=== PATIENT | male | born 1990 | race American Indian/Alaskan Native ===

== ENCOUNTER 2016-11-01 12:43 | Emergency (ER) | payer MEDICAID ==
[2016-11-01] MEDS ORDERED: HYDROmorphone 1 MG/ML Syringe IVPUSH ONE ×2 (13:04→15:15)
[2016-11-01] MEDS ORDERED: Sodium Chloride 0.9% 10 ML Syringe FLUSH PRN (13:04)
[2016-11-01] MEDS ORDERED: Ondansetron 4 MG/2 ML SDV IV ONE (13:04)
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
[2016-11-01 13:44] LABS: CHLORIDE,CL 104 mmol/L (101-111); SODIUM,NA 135 mmol/L (135-145)
[2016-11-01 15:27] VITALS: BP 129/74
== END 2016-11-01 15:59 | disposition home or self-care (01) ==
LOC: DL.ED 12:43
DX: G89.18 Other acute postprocedural pain (principal); Z98.890 Other specified postprocedural states; E66.9 Obesity, unspecified; Z88.5 Allergy status to narcotic agent; Z88.1 Allergy status to other antibiotic agents; Z88.8 Allergy status to other drugs, medicaments and biological substances; Z90.49 Acquired absence of other specified parts of digestive tract; Z87.891 Personal history of nicotine dependence
CPT/HCPCS: 36415; 80053; 83605; 85025; 86140; 87040; 87070; 96374; 96375; 96376; 99285; J1170; J2405; J7050

== ENCOUNTER 2016-11-02 18:58 | Emergency (ER) | payer MEDICAID, OTHER ==
[2016-11-02 19:07] VITALS: BP 128/84
[2016-11-02 20:01] LABS: CHLORIDE,CL 103 mmol/L (101-111); SODIUM,NA 138 mmol/L (135-145)
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
== END 2016-11-02 20:59 | disposition left against medical advice (07) ==
LOC: DL.ED 18:58
DX: G89.18 Other acute postprocedural pain (principal); E66.9 Obesity, unspecified; Z90.49 Acquired absence of other specified parts of digestive tract; Z88.1 Allergy status to other antibiotic agents; Z88.5 Allergy status to narcotic agent; Z88.8 Allergy status to other drugs, medicaments and biological substances
CPT/HCPCS: 36415; 73090-LT; 73120-LT; 80053; 85025; 86140; 99283

== ENCOUNTER 2016-11-04 14:16 | Emergency (ER) | payer MEDICAID, OTHER ==
[2016-11-04] MEDS ORDERED: Bacitracin Oint 1 GM U/D Packet TOP ONE (14:56)
[2016-11-04 15:20] VITALS: BP 128/79
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
== END 2016-11-04 15:35 | disposition home or self-care (01) ==
LOC: EEVIPCON 14:16 → DL.ED 14:16
DX: T81.30XA Disruption of wound, unspecified, initial encounter (principal); E66.9 Obesity, unspecified; Z88.1 Allergy status to other antibiotic agents; Z88.5 Allergy status to narcotic agent; Z88.8 Allergy status to other drugs, medicaments and biological substances
CPT/HCPCS: 36415; 85025; 99283

== ENCOUNTER 2016-11-11 10:43 | Emergency (ER) | payer MEDICAID ==
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
== END 2016-11-11 14:00 | disposition home or self-care (01) ==
LOC: DL.ED 10:43
CPT/HCPCS: 99283

== ENCOUNTER 2016-11-12 12:42 | Emergency (ER) | payer MEDICAID ==
[2016-11-12] MEDS ORDERED: Ondansetron 4 MG Tab.DIS PO ONE (13:31)
[2016-11-12] MEDS ORDERED: Sodium Chloride 0.9% 10 ML Syringe FLUSH PRN (15:02)
[2016-11-12] MEDS ORDERED: Ondansetron 8 MG in Sodium Chloride 0.9% 50 ML IV ONE (15:03)
[2016-11-12] MEDS ORDERED: Sodium Chloride 0.9% 1,000 ML IV SCH (15:15)
[2016-11-12] MEDS ORDERED: Ondansetron 4 MG/2 ML SDV ONE (15:43)
[2016-11-12 16:13] VITALS: BP 124/92
[2016-11-12] MEDS ORDERED: Clindamycin Phosphate 900 MG in Sodium Chloride 0.9% 100 ML IV ONE (16:57)
[2016-11-12] MEDS ORDERED: Acetaminophen/oxyCODONE 325-5 MG Tab PO ONE (17:26)
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
== END 2016-11-12 18:07 | disposition home or self-care (01) ==
LOC: DL.ED 12:42
DX: Z48.89 Encounter for other specified surgical aftercare (principal); M79.602 Pain in left arm; R11.2 Nausea with vomiting, unspecified; Z88.1 Allergy status to other antibiotic agents; Z88.5 Allergy status to narcotic agent; Z88.8 Allergy status to other drugs, medicaments and biological substances; Z90.49 Acquired absence of other specified parts of digestive tract; E66.01 Morbid (severe) obesity due to excess calories
CPT/HCPCS: 36415; 85025; 87040; 87070; 96361; 96365; 96375; 99285; A9270; J2405; J7030; J7050; S0077

== ENCOUNTER 2016-11-13 10:57 | Observation (INO) | payer MEDICAID ==
[2016-11-13] MEDS ORDERED: Lidocaine 1% 30 ML SDV ONE (11:35)
[2016-11-13] MEDS ORDERED: Clindamycin Phosphate 900 MG in Sodium Chloride 0.9% 100 ML IV ONE (12:08)
[2016-11-13] MEDS ORDERED: Sodium Chloride 0.9% 100 ML ONE (12:10)
[2016-11-13] MEDS ORDERED: Clindamycin Phosphate 900 MG/6 ML SDV ONE (12:10)
[2016-11-13] MEDS: Lactated Ringers 1,000 ML IV SCH ×2 (12:14→13:46)
--- NOTE | 2016-11-13 12:16 | PCM.SN ---
- Free Text/Narrative Note: Preop. Meds and allergies reviewed w chart review. No complications w previous anesthetics. NPO > 8 hrs. Light smoker, Neg GERD. Mallampati 2. Hx obesity. Lungs CTAB Heart RRR S1 S2 w/o m . Risks benefits and alternatives of anesthesia explained to Pt. Pt denies questions or concerns. Plan GA
[2016-11-13] MEDS ORDERED: Lidocaine 1% 30 ML SDV INJECT ONE ×2 (12:42→13:49)
[2016-11-13] MEDS ORDERED: Morphine 10 MG/ML Syringe IVPUSH PRN (13:42)
[2016-11-13] MEDS ORDERED: HYDROmorphone 1 MG/ML Syringe IV ONE (13:49)
[2016-11-13] MEDS ORDERED: Ondansetron 4 MG/2 ML SDV IV ONE (13:49)
[2016-11-13] MEDS ORDERED: fentaNYL 250 MCG/5 ML SDV IV ONE (13:49)
[2016-11-13] MEDS ORDERED: Midazolam 1 MG/ML 2 ML SDV IV ONE (13:49)
[2016-11-13] MEDS ORDERED: Propofol 200 MG/20 ML SDV IV ONE (13:49)
[2016-11-13] MEDS ORDERED: Acetaminophen/Codeine 300-30 MG Tab PO PRN (13:49)
[2016-11-13] MEDS ORDERED: Morphine PF 5 MG/10 ML SDV ONE (14:03)
[2016-11-13] MEDS ORDERED: Magnesium Hydroxide 400 MG/5 ML Susp 30 ML Cup PO PRN (16:03)
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
[2016-11-13] MEDS: Morphine 10 MG/ML Syringe IVPUSH PRN ×7 (16:48→23:49)
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
[2016-11-13] MEDS ORDERED: Acetaminophen/HYDROcodone 325-5 MG Tab PO PRN (19:01)
[2016-11-13] MEDS: Acetaminophen/oxyCODONE 325-5 MG Tab PO PRN (20:28)
[2016-11-14] MEDS: Acetaminophen/oxyCODONE 325-5 MG Tab PO PRN ×6 (00:30→19:56)
[2016-11-14] MEDS: Morphine 10 MG/ML Syringe IVPUSH PRN ×5 (00:49→05:27)
[2016-11-14] MEDS ORDERED: Morphine 10 MG/ML Syringe IM PRN ×2 (06:24→18:24)
--- NOTE | 2016-11-14 09:04 | PCM.SN ---
- Free Text/Narrative Note: Post op. Pt alert and oriented. VSS denies nausea, Pain at 5-8/ 10 MD aware. No anesthesia concerns noted
--- NOTE | 2016-11-14 11:24 | PN ---
DATE: 11/14/2016 HISTORY OF PRESENT ILLNESS: Mr. Lovell is a 26-year-old male that we did an I and D of a wound, had been a fasciotomy site that was done several weeks ago. Over the course of the stay, he states that he has had mostly significant pain, but actually less numbness and tingling than he had before. He has been afebrile. The pain medicine he has been getting has been the Percocet as well as morphine. His IV fell out at midnight. PHYSICAL EXAMINATION: The dressing I had him remove the top layer. He began starting to move the layer that was actually within the wound of the fasciotomy site itself. I was able to take some sterile saline and remove the dressing. He stated this obviously hurt, which I know it did. The tissue itself was totally pink. There is no fibrinous exudate. There is no cellulitis at all. IMPRESSION AND PLAN: 1. Wound. Clearly, this wound looks 100% better than yesterday. In fact the muscle beds themselves have already started to decrease in the amount of swelling. I explained to the patient that we just have some limited reports on the cultures today, but clinically it looks very very good. Once the patient calmed down, I was able to discuss with him that what I would like to do is to re-evaluate the wound this afternoon like I will personally again do the dressing change and will determine whether we should think about either delayed closure or just simply dressing changes or perhaps a skin graft. 1. Pain control. Mr. Lovell has been a challenge as far as being able to get control of the pain. He has a history of this in the past, but he certainly does have discomfort with this. At first after the dressing change, the patient stated he wanted to leave and go back to [place]. I stated if that is the case, he needs to make the decision now because the sooner that we have good continuous care the better off this wound will be. I explained to him that if he wants to leave, we will make the appropriate arrangements, but if he wants to stay, we need to make the decision now so that we can continue to monitor this wound on a regular basis. Mr. Lovell then held his hand out to me and said he would like to stay and we made a commitment. He knows full and well that as far as pain control that we could do our best to minimize the pain, but it will never completely go away, and with this, he understand he is going to get 2 Percocet every 4 hours. Perhaps on a p.r.n. basis, we can give him some additional morphine IM. He was agreeable to this. [facility] /[id number]
[2016-11-14] MEDS ORDERED: Diazepam 5 MG Tab PO PRN (22:14)
[2016-11-14] MEDS: Morphine 10 MG/ML Syringe IM PRN (22:30)
[2016-11-15] MEDS: Morphine 10 MG/ML Syringe IM PRN ×4 (04:12→20:25)
[2016-11-15] MEDS: Acetaminophen/oxyCODONE 325-5 MG Tab PO PRN ×5 (06:15→21:51)
[2016-11-15] MEDS ORDERED: Diazepam 2 MG Tab PO PRN (08:12)
--- NOTE | 2016-11-15 08:18 | PCM.SN ---
- Free Text/Narrative Note: Full note dictated. The wound is clean with no exudate cultures negative thus far. will plan on attempt to close the wound in the operating room tomorrow. will bathe in [id number] discussed with the charge nurse in detail. will decrease the valium to 2 mg prn.
--- NOTE | 2016-11-15 10:58 | PN ---
DATE: 11/15/2016 HISTORY OF PRESENT ILLNESS: Mr. Lovell is now postoperative day #2, status post incision and drainage of a fasciotomy site of his forearm. Over the last 24 hours. The biggest issue was obviously pain control. With the addition of the Percocet and morphine, this is helped. Last evening, I did go ahead and give him 5 mg of Valium, which did help him sleep. The patient states that he still has some soreness in that area, but he is able to flex and extend his wrist, but a little bit more problems with flexing he states. He states that he otherwise feels well. OBJECTIVE: He is afebrile. He is not tachycardic. Cultures thus far have been reviewed. The blood cultures that were done in the emergency department were negative. The wound cultures done in the operating room were negative. He remains afebrile. PHYSICAL EXAMINATION: The patient himself took the dressing down. The wound is clean and dry. There is no induration, and there is just a little bit of a serous drainage. There is granulation tissue re-accumulating on the muscle itself. The edema has decreased. The size of the wound was measured again and it was 11 cm x 4 cm. There is no ascending cellulitis. IMPRESSION AND PLAN: 1. This wound now appears ready for the next level. We have basically several options:. a. Totally continue to granulate in, which will take a fair amount of time. b. We could attempt to loosely primarily close it to decrease the size of the open wound with or without a drain. c. Skin graft. I really do not think that this patient is capable of handing another wound especially not only because it is a wound, but also because it is for pain control. I clearly had a discussion with him that a skin graft would require another wound on this thigh and he agrees that he does not like any additional pain, and this could be a problem. I then stated to him that I think that we could attempt to loosely primarily close it now that the wound bed is nice and clean. He seems to be agreeable to this, and we will discuss this with his family. This could be done in the operating room with some MAC anesthesia, some local anesthetic and see what happens. We will further discuss this. In the mean time, I explained to the patient that I would recommend that he showers today with the Hibiclens based solution, so that we can start preparing him for an operative procedure tomorrow. This also I discussed with Peace, the charge nurse as to our plan. It was made that he became fairly sleepy with the Valium of 5 mg, but he did sleep, so I therefore will also decrease the Valium to a 2 mg dose to see if we can give him some added benefit. 1. Social issues. I think it is a tenuous relationship with how things are going. We are trying very much to help do what is best for the patient's injury site. If indeed the patient feels he wants to go to a different facility, we will certainly make those arrangements. I did discuss with the patient that perhaps if he wanted to go home and come as an outpatient, but I have concerns about keeping that wound clean as well as keeping the pain under control. So to date, the plan as I stated. We will try to schedule him for surgery tomorrow. He will be made n.p.o. We will continue with the Hibiclens with the bathing again in the morning and go from there. [facility] /[id number]
--- NOTE | 2016-11-15 14:32 | PCM.SN ---
- Free Text/Narrative Note: patient dressing removed he tollerated this without problem doing most of it by himself he stated that the morning shower went well and that his arm does feel better. PE----health tissue cultures neg so far PLAN---surgery in the am He will stay the night as I am concerned about his reliability and if the will strictly follow the instruction for the preop treatment plan. Our hope is to attempt to close the wound as much as possible I explained this to mr. Lovell. He understands.
[2016-11-16] MEDS: Morphine 10 MG/ML Syringe IM PRN ×3 (00:29→12:30)
--- NOTE | 2016-11-16 08:18 | PCM.SN ---
- Free Text/Narrative Note: Patient had a very good night. he slept for at least 6 straight hours. he is anxious to go home. when I arrived in the room at 8 AM he was sitting up in his bed smiling with the dressing off and ready for the shower. I once again discussed the risks and the bendifits of surgery to include--- bleeding, infection, pittman,, injury to structures not intended and the fact that the wound will be closed as much as possible. he is aware that that he has the option of a different opinion but has elected to stay here. he is aware that the plan will be for discharge after surgery if all goes as planned. he had no additional questions. he is aware that there is one case ahead of him the site was marked. no additional questions
[2016-11-16] MEDS ORDERED: Clindamycin Phosphate 900 MG/6 ML SDV ONE (08:35)
[2016-11-16] MEDS ORDERED: Sodium Chloride 0.9% 100 ML ONE (08:35)
[2016-11-16] MEDS ORDERED: Lidocaine 1% 30 ML SDV ONE (08:43)
[2016-11-16] MEDS ORDERED: Clindamycin Phosphate 900 MG in Sodium Chloride 0.9% 100 ML IV ONE (09:30)
[2016-11-16] MEDS ORDERED: Lidocaine 1% 30 ML SDV INJECT ONE ×2 (10:50→11:03)
[2016-11-16] MEDS ORDERED: Sodium Chloride 0.9% 10 ML Syringe FLUSH PRN (11:16)
--- NOTE | 2016-11-16 11:18 | PCM.SN ---
- Free Text/Narrative Note: POST OP NOTE Dictation complete left forearm closed without difficulty. will instruct patient once awake for post op care.
[2016-11-16] MEDS: Acetaminophen/oxyCODONE 325-5 MG Tab PO PRN ×2 (12:00→12:28)
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
[2016-11-16 13:21] VITALS: BP 116/66
--- NOTE | 2016-11-16 13:46 | OR ---
DATE: 11/16/2016 ADDENDUM: At the end of completion of the case, I did inject Marcaine into the wound for added pain control. [facility] /[id number]
[2016-11-16] MEDS ORDERED: Ondansetron 4 MG/2 ML SDV IV ONE (13:49)
[2016-11-16] MEDS ORDERED: Propofol 200 MG/20 ML SDV IV ONE (13:49)
[2016-11-16] MEDS ORDERED: Midazolam 1 MG/ML 2 ML SDV IV ONE (13:49)
[2016-11-16] MEDS ORDERED: Ketamine 500 mg/10 ML MDV IV ONE (13:49)
[2016-11-16] MEDS ORDERED: Lactated Ringers 1,000 ML IV ONE (13:49)
[2016-11-16] MEDS ORDERED: fentaNYL 100 MCG/2 ML SDV IV ONE (13:49)
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
== END 2016-11-16 13:50 | disposition home or self-care (01) ==
LOC: DL.GSCL 10:57 → DL.SDS 10:57 → EDSTATUS 11:30 → DL.MS 13:17
PROVIDERS: ADMIT Surgery; ATTEND Surgery
DX: T81.89XA Other complications of procedures, not elsewhere classified, initial encounter (principal); Z88.1 Allergy status to other antibiotic agents; Z88.8 Allergy status to other drugs, medicaments and biological substances; Z79.899 Other long term (current) drug therapy
CPT/HCPCS: 00400; 01810; 12034; 25020; 87070; 87075; A9270; G0378; J1170; J2250; J2270; J2405; J2704; J3010; J7050; J7120; S0077

== ENCOUNTER 2017-04-26 11:42 | Emergency (ER) | payer MEDICAID ==
[2017-04-26] MEDS ORDERED: Sodium Chloride 0.9% 500 ML IV STA (12:03)
[2017-04-26] MEDS ORDERED: Sodium Chloride 0.9% 10 ML Syringe FLUSH PRN (12:03)
[2017-04-26] MEDS ORDERED: Ondansetron 4 MG/2 ML SDV IV ONE (12:07)
[2017-04-26] MEDS ORDERED: HYDROmorphone 1 MG/ML Syringe IVPUSH ONE ×2 (12:07→13:51)
--- NOTE | 2017-04-26 12:09 | EDM.PDOC ---
ED HPI GENERAL MEDICAL PROBLEM - General Chief Complaint: Flank Pain Stated Complaint: TOLD BY CLINIC TO COME Time Seen by Provider: 04/26/17 12:07 Source of Information: Reports: Patient History Limitations: Reports: No Limitations - History of Present Illness Onset: Today Duration: Getting Worse Location: Reports: Back Quality: Reports: Stabbing Severity: Severe Improves with: Reports: None Worsens with: Reports: Movement Associated Symptoms: Reports: No Other Symptoms Left Flank Pain Score (Numeric/FACES): 8 - Related Data Allergies Allergy/AdvReac Type Severity Reaction Status Date / Time amoxicillin [Amoxicillin] Allergy Rash Verified 04/26/17 11:46 ketorolac tromethamine Allergy Rash Verified 04/26/17 11:46 [From Toradol] promethazine HCl Allergy Hallucinati Verified 04/26/17 11:46 [From Phenergan] ons tramadol HCl [From Ultram] Allergy Rash Verified 04/26/17 11:46 Home Meds: Home Meds . [No Known Home Meds] 12/05/16 [History] Past Medical History - Past Health History Medical/Surgical History: Denies Medical/Surgical History HEENT History: Reports: None Cardiovascular History: Reports: None Respiratory History: Reports: None Gastrointestinal History: Reports: None Genitourinary History: Reports: Renal Calculus Other Genitourinary History: Vascular kidney disease Musculoskeletal History: Reports: None Neurological History: Reports: None Psychiatric History: Reports: None Endocrine/Metabolic History: Reports: Obesity/BMI 30+ Hematologic History: Reports: None Immunologic History: Reports: None Oncologic (Cancer) History: Reports: None Dermatologic History: Reports: None - Infectious Disease History Infectious Disease History: Reports: Chicken Pox - Past Surgical History Head Surgeries/Procedures: Reports: None GI Surgical History: Reports: Appendectomy Other Male Surgeries/Procedures: Has had kidney biopsy Musculoskeletal Surgical History: Reports: Other (See Below) Other Musculoskeletal Surgeries/Procedures:: left arm Dermatological Surgical History: Reports: Other (See Below) Social & Family History - Family History Family Medical History: Noncontributory - Tobacco Use Smoking Status *Q: Never Smoker Years of Tobacco use: 2 Packs/Tins Daily: 1 Used Tobacco, but Quit: Yes Month Tobacco Last Used: 2014 Second Hand Smoke Exposure: No - Caffeine Use Caffeine Use: Reports: Coffee - Alcohol Use Days Per Week of Alcohol Use: 0 Number of Drinks Per Day: 6 Total Drinks Per Week: 0 - Recreational Drug Use Recreational Drug Use: No - Living Situation & Occupation Living situation: Reports: Single Occupation: Employed ED ROS GENERAL - Review of Systems Review Of Systems: ROS reveals no pertinent complaints other than HPI. ED EXAM, RENAL/ - Physical Exam Exam: See Below Exam Limited By: No Limitations General Appearance: Alert, WD/WN, No Apparent Distress Eye Exam: Bilateral Eye: PERRL Respiratory/Chest: No Respiratory Distress, Lungs Clear, Normal Breath Sounds, No Accessory Muscle Use, Chest Non-Tender Cardiovascular: Normal Peripheral Pulses, Regular Rate, Rhythm, No Edema, No Gallop, No JVD, No Murmur, No Rub GI/Abdominal: Normal Bowel Sounds, Soft, Non-Tender, No Organomegaly, No Distention, No Abnormal Bruit, No Mass Back Exam: Normal Inspection, Full Range of Motion, CVA Tenderness (R) Extremities: Normal Inspection, Normal Range of Motion, Non-Tender, Normal Capillary Refill, No Pedal Edema Neurological: Alert, Oriented, CN II-XII Intact, Normal Cognition, Normal Gait, No Motor/Sensory Deficits Skin Exam: Warm, Dry, Intact, Normal Color, No Rash Course - Vital Signs Last Recorded V/S: Last Vital Signs Temp 97 F 04/26/17 11:47 Pulse 56 L 04/26/17 13:51 Resp 18 04/26/17 13:51 BP 109/51 L 04/26/17 13:51 Pulse Ox 98 04/26/17 13:51 - Orders/Labs/Meds Orders: Active Orders 24 hr Category Date Time Status Abdomen Pelvis wo Cont [CT] Stat Exams 04/26/17 12:03 Taken Sodium Chloride 0.9% [Saline Flush] Med 04/26/17 12:03 Active 10 ml FLUSH ASDIRECTED PRN Saline Lock Insert [OM.PC] Stat Oth 04/26/17 12:03 Ordered Medication Orders Sodium Chloride (Saline Flush) 10 ml FLUSH ASDIRECTED PRN PRN Reason: Keep Vein Open Last Admin: 04/26/17 13:12 Dose: 10 ml Labs: Laboratory Tests 04/26/17 04/26/17 04/26/17 Range/Units 11:51 12:38 12:38 WBC 11.5 H (5.0-10.0) 10^3/uL RBC 5.33 (4.6-6.2) 10^6/uL Hgb 15.8 (14.0-18.0) g/dL Hct 46.6 (40.0-54.0) % MCV 87.4 (80-100) fL MCH 29.6 (27.0-34.0) pg MCHC 33.9 (33.0-35.0) g/dL Plt Count 283 (150-450) 10^3/uL Neut % (Auto) 67.6 (42.2-75.2) % Lymph % (Auto) 23.5 (20.5-50.1) % [place] % (Auto) 7.0 (2-8) % Eos % (Auto) 1.6 (1.0-3.0) % Baso % (Auto) 0.3 (0.0-1.0) % Sodium 140 (135-145) mmol/L Potassium 4.3 (3.6-5.0) mmol/L Chloride 107 (101-111) mmol/L Carbon Dioxide 23.0 (21.0-31.0) mmol/L Anion Gap 14.3 BUN 12 (7-18) mg/dL Creatinine 0.8 (0.6-1.3) mg/dL Est Cr Clr Drug Dosing TNP Estimated GFR (MDRD) > 60 BUN/Creatinine Ratio 15.00 Glucose 90 (74-105) mg/dL Calcium 8.9 (8.4-10.2) mg/dl Total Bilirubin 0.9 (0.2-1.0) mg/dL AST 22 (10-42) IU/L ALT 26 (10-60) IU/L Alkaline Phosphatase 68 (42-121) IU/L Total Protein 7.6 (6.7-8.2) g/dl Albumin 4.2 (3.2-5.5) g/dl Globulin 3.4 Albumin/Globulin Ratio 1.24 Urine Color Red (YELLOW) Urine Appearance Cloudy (CLEAR) Urine pH 6.0 (5.0-9.0) Ur Specific [place] 1.020 (1.005-1.030) Urine Protein 100 H (NEGATIVE) Urine Glucose (UA) Negative (NEGATIVE) Urine Ketones Negative (NEGATIVE) Urine Occult Blood Large H (NEGATIVE) Urine Nitrite Negative (NEGATIVE) Urine Bilirubin Small H (NEGATIVE) Urine Urobilinogen 0.2 (0.2-1.0) mg/dL Ur Leukocyte Esterase Negative (NEGATIVE) Urine RBC >100 H /HPF Urine WBC 0-5 (0-5/HPF) /HPF Ur Epithelial Cells Few /HPF Urine Bacteria Few (0-FEW/HPF) /HPF Urine Mucus Moderate H /LPF Meds: Medications Generic Name Dose Route Start Last Admin Trade Name Freq PRN Reason Stop Dose Admin Sodium Chloride 10 ml 04/26/17 12:03 04/26/17 13:12 Saline Flush FLUSH 10 ml ASDIRECTED PRN Administration Keep Vein Open Discontinued Medications Generic Name Dose Route Start Last Admin Trade Name Freq PRN Reason Stop Dose Admin Hydromorphone HCl 1 mg 04/26/17 12:07 04/26/17 13:01 Dilaudid IVPUSH 04/26/17 12:08 1 mg ONETIME ONE Administration Hydromorphone HCl 1 mg 04/26/17 13:51 Dilaudid IVPUSH 04/26/17 13:52 ONETIME ONE Sodium Chloride 500 mls @ 1,000 mls/hr 04/26/17 12:03 04/26/17 13:00 Normal Saline IV 04/26/17 12:32 1,000 mls/hr .BOLUS STA Administration Ondansetron HCl 4 mg 04/26/17 12:07 04/26/17 13:02 Zofran IV 04/26/17 12:08 4 mg ONETIME ONE Administration - Re-Assessments/Exams Free Text/Narrative Re-Assessment/Exam: 04/26/17 13:[address] Crowley who agrees to accept pt for transfer Departure - Departure Time of Disposition: 13:55 Disposition: DC/Tfer to [facility] 02 Condition: Fair Clinical Impression: History of Henoch-Schonlein purpura, Hematuria syndrome, Flank pain - Discharge Information Forms: ED Department Discharge, Interfacility Transfer EMTALA - My Orders Last 24 Hours: My Active Orders 04/26/17 12:03 Abdomen Pelvis wo Cont [CT] Stat Sodium Chloride 0.9% [Saline Flush] 10 ml FLUSH ASDIRECTED PRN Saline Lock Insert [OM.PC] Stat - Assessment/Plan Last 24 Hours: My Active Orders 04/26/17 12:03 Abdomen Pelvis wo Cont [CT] Stat Sodium Chloride 0.9% [Saline Flush] 10 ml FLUSH ASDIRECTED PRN Saline Lock Insert [OM.PC] Stat
[2017-04-26 13:05] LABS: CHLORIDE,CL 107 mmol/L (101-111); SODIUM,NA 140 mmol/L (135-145)
[2017-04-26 13:52] VITALS: BP 109/51
== END 2017-04-26 14:30 ==
LOC: DL.ED 11:42
DX: R31.9 Hematuria, unspecified (principal); R10.9 Unspecified abdominal pain; D69.0 Allergic purpura; E66.9 Obesity, unspecified; Z68.41 Body mass index [BMI] 40.0-44.9, adult; Z88.1 Allergy status to other antibiotic agents; Z88.5 Allergy status to narcotic agent; Z88.8 Allergy status to other drugs, medicaments and biological substances; Z87.442 Personal history of urinary calculi; Z90.49 Acquired absence of other specified parts of digestive tract; Z98.890 Other specified postprocedural states
CPT/HCPCS: 36415; 74176; 80053; 81001; 85025; 96361; 96374; 96375; 96376; 99285; J1170; J2405; J7050

== ENCOUNTER 2017-05-01 15:05 | Emergency (ER) | payer MEDICAID ==
--- NOTE | 2017-05-01 15:46 | EDM.PDOC ---
ED HPI GENERAL MEDICAL PROBLEM - General Chief Complaint: Genitourinary Problem Stated Complaint: ABD PAINS, KIDNEY, [id number] Time Seen by Provider: 05/01/17 15:45 Source of Information: Reports: Patient, Old Records, RN, RN Notes Reviewed History Limitations: Reports: No Limitations - History of Present Illness INITIAL COMMENTS - FREE TEXT/NARRATIVE: Onset 04/26/17 of right flank pain with gross hematuria. Quality: Reports: Other (hematuria) Severity: Severe Improves with: Reports: None Worsens with: Reports: None Associated Symptoms: Reports: No Other Symptoms Bilateral Flank Pain Score (Numeric/FACES): 9 - Related Data Allergies Allergy/AdvReac Type Severity Reaction Status Date / Time amoxicillin [Amoxicillin] Allergy Rash Verified 05/01/17 15:53 ketorolac tromethamine Allergy Rash Verified 05/01/17 15:53 [From Toradol] promethazine HCl Allergy Hallucinati Verified 05/01/17 15:53 [From Phenergan] ons tramadol HCl [From Ultram] Allergy Rash Verified 05/01/17 15:53 Home Meds: Home Meds Lisinopril 20 mg PO DAILY 05/01/17 [History] oxyCODONE [oxyCODONE] 5 mg PO Q4H 05/01/17 [History] Past Medical History - Past Health History Medical/Surgical History: Denies Medical/Surgical History HEENT History: Reports: None Cardiovascular History: Reports: None Respiratory History: Reports: None Gastrointestinal History: Reports: None Genitourinary History: Reports: Renal Calculus Other Genitourinary History: Vascular kidney disease Musculoskeletal History: Reports: None Neurological History: Reports: None Psychiatric History: Reports: None Endocrine/Metabolic History: Reports: Obesity/BMI 30+ Hematologic History: Reports: None Immunologic History: Reports: None Oncologic (Cancer) History: Reports: None Dermatologic History: Reports: Other (See Below) (Henoch-Schoniein purpura with recurrent hematuria.) - Infectious Disease History Infectious Disease History: Reports: Chicken Pox - Past Surgical History Head Surgeries/Procedures: Reports: None GI Surgical History: Reports: Appendectomy Other Male Surgeries/Procedures: Has had kidney biopsy Musculoskeletal Surgical History: Reports: Other (See Below) Other Musculoskeletal Surgeries/Procedures:: left arm Dermatological Surgical History: Reports: Other (See Below) Social & Family History - Family History Family Medical History: Noncontributory - Tobacco Use Smoking Status *Q: Never Smoker Years of Tobacco use: 2 Packs/Tins Daily: 1 Used Tobacco, but Quit: Yes Month Tobacco Last Used: 2014 Second Hand Smoke Exposure: No - Caffeine Use Caffeine Use: Reports: Coffee - Alcohol Use Days Per Week of Alcohol Use: 0 Number of Drinks Per Day: 6 Total Drinks Per Week: 0 - Recreational Drug Use Recreational Drug Use: No - Living Situation & Occupation Living situation: Reports: Single Occupation: Employed ED ROS GENERAL - Review of Systems Review Of Systems: ROS reveals no pertinent complaints other than HPI. ED EXAM, RENAL/ - Physical Exam Exam: See Below Exam Limited By: No Limitations General Appearance: Alert, WD/WN, No Apparent Distress, Obese ( uncomfortable.) Neck: Normal Inspection, Supple, Non-Tender, Full Range of Motion Respiratory/Chest: No Respiratory Distress, Lungs Clear, Normal Breath Sounds, No Accessory Muscle Use, Chest Non-Tender Cardiovascular: Normal Peripheral Pulses, Regular Rate, Rhythm, No Edema, No Gallop, No JVD, No Murmur, No Rub GI/Abdominal: Other (obese with tenderness to palpation at LLQ and RLQ.) (Male) Exam: Deferred Rectal (Males) Exam: Deferred Back Exam: CVA Tenderness (L), CVA Tenderness (R) Extremities: Normal Inspection, Normal Range of Motion, Non-Tender, Normal Capillary Refill, No Pedal Edema Neurological: Alert, Oriented, CN II-XII Intact, Normal Cognition, Normal Gait, Normal Reflexes, No Motor/Sensory Deficits Skin Exam: Warm, Dry, Intact, Normal Color, No Rash Course - Vital Signs Last Recorded V/S: Last Vital Signs Temp 36.3 C 05/01/17 18:04 Pulse 66 05/01/17 18:04 Resp 20 05/01/17 18:04 BP 104/62 05/01/17 18:04 Pulse Ox 98 05/01/17 18:04 - Orders/Labs/Meds Orders: Active Orders 24 hr Category Date Time Status Peripheral IV Care [RC] . DIRECTED Care 05/01/17 16:04 Active Sodium Chloride 0.9% [Saline Flush] Med 05/01/17 16:04 Active 10 ml FLUSH ASDIRECTED PRN Peripheral IV Insertion Adult [OM.PC] Stat Oth 05/01/17 16:04 Ordered Medication Orders Sodium Chloride (Saline Flush) 10 ml FLUSH ASDIRECTED PRN PRN Reason: Keep Vein Open Last Admin: 05/01/17 18:00 Dose: 10 ml Labs: Laboratory Tests 05/01/17 05/01/17 05/01/17 Range/Units 16:10 16:20 16:20 WBC 11.1 H (5.0-10.0) 10^3/uL RBC 5.42 (4.6-6.2) 10^6/uL Hgb 16.0 (14.0-18.0) g/dL Hct 46.8 (40.0-54.0) % MCV 86.3 (80-100) fL MCH 29.5 (27.0-34.0) pg MCHC 34.2 (33.0-35.0) g/dL Plt Count 303 (150-450) 10^3/uL Neut % (Auto) 64.2 (42.2-75.2) % Lymph % (Auto) 26.9 (20.5-50.1) % [place] % (Auto) 6.8 (2-8) % Eos % (Auto) 1.9 (1.0-3.0) % Baso % (Auto) 0.2 (0.0-1.0) % Sodium 141 (135-145) mmol/L Potassium 4.3 (3.6-5.0) mmol/L Chloride 105 (101-111) mmol/L Carbon Dioxide 26.0 (21.0-31.0) mmol/L Anion Gap 14.3 BUN 11 (7-18) mg/dL Creatinine 0.8 (0.6-1.3) mg/dL Est Cr Clr Drug Dosing 154.93 mL/min Estimated GFR (MDRD) > 60 BUN/Creatinine Ratio 13.75 Glucose 96 (74-105) mg/dL Calcium 9.2 (8.4-10.2) mg/dl Total Bilirubin 0.7 (0.2-1.0) mg/dL AST 19 (10-42) IU/L ALT 26 (10-60) IU/L Alkaline Phosphatase 69 (42-121) IU/L Total Protein 8.1 (6.7-8.2) g/dl Albumin 4.5 (3.2-5.5) g/dl Globulin 3.6 Albumin/Globulin Ratio 1.25 Urine Color Red (YELLOW) Urine Appearance Turbid (CLEAR) Urine pH 6.0 (5.0-9.0) Ur Specific [place] 1.025 (1.005-1.030) Urine Protein 30 H (NEGATIVE) Urine Glucose (UA) Negative (NEGATIVE) Urine Ketones Negative (NEGATIVE) Urine Occult Blood Large H (NEGATIVE) Urine Nitrite Negative (NEGATIVE) Urine Bilirubin Negative (NEGATIVE) Urine Urobilinogen 0.2 (0.2-1.0) mg/dL Ur Leukocyte Esterase Trace H (NEGATIVE) Urine RBC >100 H /HPF Urine WBC 5-10 H (0-5/HPF) /HPF Ur Epithelial Cells Few /HPF Amorphous Sediment Moderate (0/HPF) /HPF Urine Bacteria Rare (0-FEW/HPF) /HPF Urine Mucus Few H /LPF Meds: Medications Generic Name Dose Route Start Last Admin Trade Name Freq PRN Reason Stop Dose Admin Sodium Chloride 10 ml 05/01/17 16:04 05/01/17 18:00 Saline Flush FLUSH 10 ml ASDIRECTED PRN Administration Keep Vein Open Discontinued Medications Generic Name Dose Route Start Last Admin Trade Name Freq PRN Reason Stop Dose Admin Hydromorphone HCl 1 mg 05/01/17 16:04 05/01/17 17:57 Dilaudid IVPUSH 05/01/17 16:05 1 mg ONETIME ONE Administration Hydromorphone HCl 1 mg 05/01/17 16:46 05/01/17 18:41 Dilaudid IVPUSH 05/01/17 16:47 1 mg ONETIME ONE Administration Sodium Chloride 1,000 mls @ 999 mls/hr 05/01/17 16:04 05/01/17 18:00 Normal Saline IV 05/01/17 17:04 999 mls/hr .BOLUS ONE Administration Ondansetron HCl 4 mg 05/01/17 16:04 05/01/17 17:59 Zofran IV 05/01/17 16:05 4 mg ONETIME ONE Administration - Re-Assessments/Exams Free Text/Narrative Re-Assessment/Exam: 05/01/17 16:[address] [employer] analyst Dr. Rose, who advises that based on pt's Hx, and current lab results, pt may be hydrated and receive pain control in the ER, then be d/c'd to home with instructions to call neph. clinic tomorrow to arrange follow up. Departure - Departure Time of Disposition: 18:48 Disposition: Home, Self-Care 01 Condition: Fair Clinical Impression: Gross hematuria, History of Henoch-Schonlein purpura, Bilateral flank pain - Discharge Information Instructions: Hematuria, Adult Forms: ED Department Discharge Additional Instructions: Drink plenty of water. Call [facility] tomorrow morning to arrange follow up. - My Orders Last 24 Hours: My Active Orders 05/01/17 16:04 Peripheral IV Care [RC] . DIRECTED Sodium Chloride 0.9% [Saline Flush] 10 ml FLUSH ASDIRECTED PRN Peripheral IV Insertion Adult [OM.PC] Stat - Assessment/Plan Last 24 Hours: My Active Orders 05/01/17 16:04 Peripheral IV Care [RC] . DIRECTED Sodium Chloride 0.9% [Saline Flush] 10 ml FLUSH ASDIRECTED PRN Peripheral IV Insertion Adult [OM.PC] Stat
[2017-05-01] MEDS ORDERED: Sodium Chloride 0.9% 1,000 ML IV ONE (16:04)
[2017-05-01] MEDS ORDERED: Sodium Chloride 0.9% 10 ML Syringe FLUSH PRN (16:04)
[2017-05-01] MEDS ORDERED: Ondansetron 4 MG/2 ML SDV IV ONE (16:04)
[2017-05-01] MEDS ORDERED: HYDROmorphone 1 MG/ML Syringe IVPUSH ONE ×3 (16:04→18:55)
[2017-05-01 16:45] LABS: CHLORIDE,CL 105 mmol/L (101-111); SODIUM,NA 141 mmol/L (135-145)
[2017-05-01 19:16] VITALS: BP 104/58
== END 2017-05-01 19:14 | disposition home or self-care (01) ==
LOC: DL.ED 15:05
DX: R31.0 Gross hematuria (principal); R10.9 Unspecified abdominal pain; Z87.2 Personal history of diseases of the skin and subcutaneous tissue; Z90.49 Acquired absence of other specified parts of digestive tract; E66.9 Obesity, unspecified; Z79.899 Other long term (current) drug therapy; Z88.1 Allergy status to other antibiotic agents; Z88.6 Allergy status to analgesic agent; Z88.8 Allergy status to other drugs, medicaments and biological substances; Z88.5 Allergy status to narcotic agent
CPT/HCPCS: 36415; 80053; 81001; 85025; 96361; 96374; 96375; 96376; 99284; J1170; J2405; J7030; J7050

== ENCOUNTER 2017-05-02 14:06 | Emergency (ER) | payer MEDICAID ==
[2017-05-02] MEDS ORDERED: HYDROmorphone 1 MG/ML Syringe IM ONE (16:16)
--- NOTE | 2017-05-02 16:20 | EDM.PDOC ---
<Adenike Evans - Last Filed: 05/02/17 18:36> ED HPI GENERAL MEDICAL PROBLEM - General Chief Complaint: Genitourinary Problem Stated Complaint: KIDNEYS Time Seen by Provider: 05/02/17 16:25 Source of Information: Reports: Patient, Family History Limitations: Reports: No Limitations - History of Present Illness INITIAL COMMENTS - FREE TEXT/NARRATIVE: Patient was last seen in the ER on 05/01/17. He states he has flank pain bilaterally which continues and has intensified. He states he has not urinated very much at all since last evening. No new symptoms accompany. No fever or chills. Onset: Other Location: Reports: Back Quality: Reports: Same as Previous Episode, Sharp, Stabbing, Throbbing Severity: Severe Improves with: Reports: None Worsens with: Reports: Movement Associated Symptoms: Reports: No Other Symptoms Bilateral Flank Pain Score (Numeric/FACES): 9 - Related Data Allergies Allergy/AdvReac Type Severity Reaction Status Date / Time amoxicillin [Amoxicillin] Allergy Rash Verified 05/02/17 16:27 ketorolac tromethamine Allergy Rash Verified 05/02/17 16:27 [From Toradol] promethazine HCl Allergy Hallucinati Verified 05/02/17 16:27 [From Phenergan] ons tramadol HCl [From Ultram] Allergy Rash Verified 05/02/17 16:27 Home Meds: Home Meds oxyCODONE [oxyCODONE] 5 mg PO Q4H 05/01/17 [History] Past Medical History - Past Health History Medical/Surgical History: Denies Medical/Surgical History HEENT History: Reports: None Cardiovascular History: Reports: None Respiratory History: Reports: None Gastrointestinal History: Reports: None Genitourinary History: Reports: Renal Calculus Other Genitourinary History: Vascular kidney disease Musculoskeletal History: Reports: None Neurological History: Reports: None Psychiatric History: Reports: None Endocrine/Metabolic History: Reports: Obesity/BMI 30+ Hematologic History: Reports: None Immunologic History: Reports: None Oncologic (Cancer) History: Reports: None Dermatologic History: Reports: Other (See Below) (Henoch-Schoniein purpura with recurrent hematuria.) - Infectious Disease History Infectious Disease History: Reports: Chicken Pox - Past Surgical History Head Surgeries/Procedures: Reports: None GI Surgical History: Reports: Appendectomy Other Male Surgeries/Procedures: Has had kidney biopsy Musculoskeletal Surgical History: Reports: Other (See Below) Other Musculoskeletal Surgeries/Procedures:: left arm Dermatological Surgical History: Reports: Other (See Below) Social & Family History - Family History Family Medical History: Noncontributory - Tobacco Use Smoking Status *Q: Never Smoker Years of Tobacco use: 2 Packs/Tins Daily: 1 Used Tobacco, but Quit: Yes Month Tobacco Last Used: 2014 Second Hand Smoke Exposure: No - Caffeine Use Caffeine Use: Reports: Coffee - Alcohol Use Days Per Week of Alcohol Use: 0 Number of Drinks Per Day: 6 Total Drinks Per Week: 0 - Recreational Drug Use Recreational Drug Use: No - Living Situation & Occupation Living situation: Reports: Single Occupation: Employed ED ROS GENERAL - Review of Systems Review Of Systems: ROS reveals no pertinent complaints other than HPI. ED EXAM, RENAL/ - Physical Exam Exam: See Below Exam Limited By: No Limitations General Appearance: Alert, WD/WN Head: Atraumatic Neck: Normal Inspection Respiratory/Chest: No Respiratory Distress, Lungs Clear, Normal Breath Sounds Cardiovascular: Normal Peripheral Pulses, Regular Rate, Rhythm GI/Abdominal: Normal Bowel Sounds Back Exam: CVA Tenderness (L), CVA Tenderness (R), Decreased Range of Motion Extremities: Normal Inspection Neurological: Alert, Oriented Psychiatric: Normal Affect, Normal Mood Skin Exam: Warm, Dry, Intact, Normal Color Lymphatic: No Adenopathy Course - Vital Signs Last Recorded V/S: Last Vital Signs Temp 35.5 C 05/02/17 16:21 Pulse 64 05/02/17 16:21 Resp 16 05/02/17 16:21 BP 121/77 05/02/17 16:21 Pulse Ox 99 05/02/17 16:21 - Orders/Labs/Meds Orders: Active Orders 24 hr Category Date Time Status Peripheral IV Care [RC] . DIRECTED Care 05/02/17 17:26 Active Sodium Chloride 0.9% [Normal Saline] 1,000 ml Med 05/02/17 18:39 Active IV .BOLUS Sodium Chloride 0.9% [Saline Flush] Med 05/02/17 17:26 Active 10 ml FLUSH ASDIRECTED PRN Peripheral IV Insertion Adult [OM.PC] Stat Oth 05/02/17 17:26 Ordered Medication Orders Sodium Chloride (Normal Saline) 1,000 mls @ 100 mls/hr IV .BOLUS ONE Stop: 05/03/17 04:38 Last Admin: 05/02/17 18:44 Dose: 100 mls/hr Sodium Chloride (Saline Flush) 10 ml FLUSH ASDIRECTED PRN PRN Reason: Keep Vein Open Labs: Laboratory Tests 05/02/17 05/02/17 05/02/17 Range/Units 16:28 16:28 16:30 WBC 10.9 H (5.0-10.0) 10^3/uL RBC 5.32 (4.6-6.2) 10^6/uL Hgb 15.8 (14.0-18.0) g/dL Hct 46.0 (40.0-54.0) % MCV 86.5 (80-100) fL MCH 29.7 (27.0-34.0) pg MCHC 34.3 (33.0-35.0) g/dL Plt Count 291 (150-450) 10^3/uL Neut % (Auto) 64.0 (42.2-75.2) % Lymph % (Auto) 27.3 (20.5-50.1) % [place] % (Auto) 6.6 (2-8) % Eos % (Auto) 1.9 (1.0-3.0) % Baso % (Auto) 0.2 (0.0-1.0) % Sodium 140 (135-145) mmol/L Potassium 3.8 (3.6-5.0) mmol/L Chloride 104 (101-111) mmol/L Carbon Dioxide 23.0 (21.0-31.0) mmol/L Anion Gap 16.8 BUN 13 (7-18) mg/dL Creatinine 0.9 (0.6-1.3) mg/dL Est Cr Clr Drug Dosing TNP Estimated GFR (MDRD) > 60 Glucose 85 (74-105) mg/dL Calcium 9.1 (8.4-10.2) mg/dl Urine Color Red (YELLOW) Urine Appearance Turbid (CLEAR) Urine pH 6.5 (5.0-9.0) Ur Specific [place] 1.025 (1.005-1.030) Urine Protein 30 H (NEGATIVE) Urine Glucose (UA) Negative (NEGATIVE) Urine Ketones Trace H (NEGATIVE) Urine Occult Blood Large H (NEGATIVE) Urine Nitrite Negative (NEGATIVE) Urine Bilirubin Small H (NEGATIVE) Urine Urobilinogen 1.0 (0.2-1.0) mg/dL Ur Leukocyte Esterase Small H (NEGATIVE) Urine RBC >100 H /HPF Urine WBC 5-10 H (0-5/HPF) /HPF Ur Epithelial Cells Rare /HPF Amorphous Sediment Few (0/HPF) /HPF Urine Bacteria Rare (0-FEW/HPF) /HPF Urine Mucus Few H /LPF Meds: Medications Generic Name Dose Route Start Last Admin Trade Name Chavo PRN Reason Stop Dose Admin Sodium Chloride 1,000 mls @ 100 mls/hr 05/02/17 18:39 05/02/17 18:44 Normal Saline IV 05/03/17 04:38 100 mls/hr .BOLUS ONE Administration Sodium Chloride 10 ml 05/02/17 17:26 Saline Flush FLUSH ASDIRECTED PRN Keep Vein Open Discontinued Medications Generic Name Dose Route Start Last Admin Trade Name Freevangelina PRN Reason Stop Dose Admin Famotidine 20 mg 05/02/17 17:29 05/02/17 19:11 Pepcid IVPUSH 05/02/17 17:30 20 mg ONETIME ONE Administration Hydromorphone HCl 2 mg 05/02/17 16:16 05/02/17 16:37 Dilaudid IM 05/02/17 16:17 2 mg ONETIME ONE Administration Hydromorphone HCl 1 mg 05/02/17 17:29 05/02/17 19:12 Dilaudid IVPUSH 05/02/17 17:30 1 mg ONETIME ONE Administration Methylprednisolone Sodium Succinate 125 mg 05/02/17 17:27 05/02/17 19:10 Solu-Medrol IVPUSH 05/02/17 17:28 125 mg ONETIME ONE Administration Departure - Departure Disposition: Home, Self-Care 01 Clinical Impression: Bilateral flank pain, Gross hematuria - Discharge Information Referrals: PCP,None [Primary Care Provider] - Forms: ED Department Discharge Care Plan Goals: The patient was advised of the examination, lab and CT results during the visit. The patient was discharged with prescriptions as per Nephrology instructions. The patient should follow-up with his primary care facility for continued evaluation and management. If the patient has any additional symptoms or concerns, the patient should visit his primary care facility or return to the emergency department. <Matt Hendrickson - Last Filed: 05/02/17 19:24> Departure - Departure Time of Disposition: 19:20 Condition: Fair
[2017-05-02 16:27] VITALS: BP 121/77
[2017-05-02 16:53] LABS: CHLORIDE,CL 104 mmol/L (101-111); SODIUM,NA 140 mmol/L (135-145)
[2017-05-02] MEDS ORDERED: Sodium Chloride 0.9% 10 ML Syringe FLUSH PRN (17:26)
[2017-05-02] MEDS ORDERED: methylPREDNISolone Sodium Succinate 125 MG/2 ML SDV IVPUSH ONE (17:27)
[2017-05-02] MEDS ORDERED: Famotidine 20 MG/2 ML SDV IVPUSH ONE (17:29)
[2017-05-02] MEDS ORDERED: HYDROmorphone 1 MG/ML Syringe IVPUSH ONE (17:29)
[2017-05-02] MEDS ORDERED: Sodium Chloride 0.9% 1,000 ML IV ONE (18:39)
--- NOTE | 2017-05-02 19:02 | CT ---
Clinical history: 26-year-old male smoker complaining of bilateral flank pain (history of Henoch Scho enlein purpura). Significant to note that this patient has a history of at least [address] exams since July 2013 (most recently 26 April 2017) and presents now with gross hematuria. Scan technique: Volume acquisition of data emergency unenhanced CT scan of the abdomen and pelvis (ki dneys/ureters/bladder) obtained with the patient lying supine on the Siemens multi slice CT scanner [place], [place]. All data archived in the PACS system for storage, ref ormatting and study. Interpretation: 1. Appendectomy (clips RLQ). 2. Scattered diverticula descending left colon without associated signs of inflammation. 3. Normal reniform size, axis and configuration without sign of caliectasis or pyelectasis (no hydron ephrosis). No stones. 4. No ureterectasis and symmetrically distended normal appearing urinary bladder. 5. Gallbladder, unenhanced liver, stomach, spleen, pancreas and adrenal glands unremarkable. 6. No abdominal or pelvic mass lesion, mesenteric or retroperitoneal lymphadenopathy, signs of mechan ical bowel obstruction, ascites or free intraperitoneal air. Lung bases are clear. Normal caliber abd ominal aorta. CONCLUSION: Negative kidneys and urinary tracts. Appendectomy. Diverticulosis left colon.
== END 2017-05-02 19:30 | disposition home or self-care (01) ==
LOC: DL.ED 14:06
DX: R10.9 Unspecified abdominal pain (principal); R31.0 Gross hematuria; Z88.1 Allergy status to other antibiotic agents; Z88.8 Allergy status to other drugs, medicaments and biological substances; Z88.6 Allergy status to analgesic agent; Z90.49 Acquired absence of other specified parts of digestive tract
CPT/HCPCS: 36415; 74176; 80048; 81001; 85025; 96361; 96372; 96374; 96375; 99284; J1170; J2930; J7030; S0028

== ENCOUNTER 2017-05-24 10:48 | Emergency (ER) | payer MEDICAID, OTHER ==
[2017-05-24 11:05] VITALS: BP 114/72
--- NOTE | 2017-05-24 11:23 | EDM.PDOC ---
ED HPI GENERAL MEDICAL PROBLEM - General Chief Complaint: Abdominal Pain Stated Complaint: BLEEDING FROM [place]EL Time Seen by Provider: 05/24/17 11:10 Source of Information: Reports: Patient History Limitations: Reports: No Limitations - History of Present Illness INITIAL COMMENTS - FREE TEXT/NARRATIVE: This 27 yo male patient reports to the ED with pain around his umbilicus. The patient reports he had blood and purulent material coming from his umbilicus last night and has had some shooting pains into his groin when moving. The patient reports he called the [facility] and was told to come to the ED due to the fact that they only had 1 provider at the clinic today. Prior to seeing the patient, a call was placed to the [facility] who reported there were 2 providers out there today, but their schedules are "pretty full." Onset Date: 05/23/17 Duration: Constant, Getting Worse Location: Reports: Abdomen Quality: Reports: Ache, Dull, Pressure Severity: Moderate Improves with: Reports: None Worsens with: Reports: None Associated Symptoms: Reports: No Other Symptoms Middle Abdomen Pain Score (Numeric/FACES): 7 - Related Data Allergies Allergy/AdvReac Type Severity Reaction Status Date / Time amoxicillin [Amoxicillin] Allergy Rash Verified 05/02/17 16:27 ketorolac tromethamine Allergy Rash Verified 05/02/17 16:27 [From Toradol] promethazine HCl Allergy Hallucinati Verified 05/02/17 16:27 [From Phenergan] ons tramadol HCl [From Ultram] Allergy Rash Verified 05/02/17 16:27 Past Medical History - Past Health History Medical/Surgical History: Denies Medical/Surgical History HEENT History: Reports: None Cardiovascular History: Reports: None Respiratory History: Reports: None Gastrointestinal History: Reports: None Genitourinary History: Reports: Renal Calculus Other Genitourinary History: Vascular kidney disease Musculoskeletal History: Reports: None Neurological History: Reports: None Psychiatric History: Reports: None Endocrine/Metabolic History: Reports: Obesity/BMI 30+ Hematologic History: Reports: None Immunologic History: Reports: None Oncologic (Cancer) History: Reports: None Dermatologic History: Reports: Other (See Below) - Infectious Disease History Infectious Disease History: Reports: Chicken Pox - Past Surgical History Head Surgeries/Procedures: Reports: None GI Surgical History: Reports: Appendectomy Other Male Surgeries/Procedures: Has had kidney biopsy Musculoskeletal Surgical History: Reports: Other (See Below) Other Musculoskeletal Surgeries/Procedures:: left arm Dermatological Surgical History: Reports: Other (See Below) Social & Family History - Family History Family Medical History: Noncontributory - Tobacco Use Smoking Status *Q: Never Smoker Years of Tobacco use: 2 Packs/Tins Daily: 1 Used Tobacco, but Quit: Yes Month Tobacco Last Used: 2014 Second Hand Smoke Exposure: No - Caffeine Use Caffeine Use: Reports: Coffee - Alcohol Use Days Per Week of Alcohol Use: 0 Number of Drinks Per Day: 6 Total Drinks Per Week: 0 - Recreational Drug Use Recreational Drug Use: No - Living Situation & Occupation Living situation: Reports: Single Occupation: Employed ED ROS GENERAL - Review of Systems Review Of Systems: ROS reveals no pertinent complaints other than HPI. ED EXAM, GI/ABD - Physical Exam Exam: See Below Exam Limited By: No Limitations General Appearance: Alert, WD/WN, Mild Distress, Obese Eyes: Bilateral: Normal Appearance, EOMI Ears: Normal External Exam, Normal Canal, Hearing Grossly Normal, Normal TMs Nose: Normal Inspection, Normal Mucosa, No Blood Throat/Mouth: Normal Inspection, Normal Lips, Normal Teeth, Normal Gums, Normal Oropharynx, Normal Voice, No Airway Compromise Head: Atraumatic, Normocephalic Neck: Normal Inspection, Supple, Non-Tender, Full Range of Motion Respiratory/Chest: No Respiratory Distress, Lungs Clear, Normal Breath Sounds, No Accessory Muscle Use, Chest Non-Tender Cardiovascular: Normal Peripheral Pulses, Regular Rate, Rhythm, No Edema, No Gallop, No JVD, No Murmur, No Rub GI/Abdominal Exam: Normal Bowel Sounds, Soft, No Organomegaly, No Distention, No Abnormal Bruit, No Mass, Pelvis Stable, Tender (around the umbilicus) (Male) Exam: Deferred Rectal (Males) Exam: Deferred Back Exam: Normal Inspection, Full Range of Motion, NT Extremities: Normal Inspection, Normal Range of Motion, Non-Tender, Normal Capillary Refill, No Pedal Edema Neurological: Alert, Oriented, CN II-XII Intact, Normal Cognition, Normal Gait, Normal Reflexes, No Motor/Sensory Deficits Psychiatric: Normal Affect, Normal Mood Skin Exam: Erythema (around the umbilicus) Lymphatic: No Adenopathy Course - Vital Signs Last Recorded V/S: Last Vital Signs Temp 36.8 C 05/24/17 11:04 Pulse 64 05/24/17 11:04 Resp 16 05/24/17 11:04 BP 114/72 05/24/17 11:04 Pulse Ox 100 05/24/17 11:04 - Orders/Labs/Meds Labs: Laboratory Tests 05/24/17 05/24/17 05/24/17 Range/Units 11:18 11:18 11:19 WBC 9.0 (5.0-10.0) 10^3/uL RBC 5.38 (4.6-6.2) 10^6/uL Hgb 15.7 (14.0-18.0) g/dL Hct 46.8 (40.0-54.0) % MCV 87.0 (80-100) fL MCH 29.2 (27.0-34.0) pg MCHC 33.5 (33.0-35.0) g/dL Plt Count 249 (150-450) 10^3/uL Neut % (Auto) 64.1 (42.2-75.2) % Lymph % (Auto) 27.2 (20.5-50.1) % [place] % (Auto) 6.5 (2-8) % Eos % (Auto) 2.0 (1.0-3.0) % Baso % (Auto) 0.2 (0.0-1.0) % Sodium 139 (135-145) mmol/L Potassium 4.3 (3.6-5.0) mmol/L Chloride 107 (101-111) mmol/L Carbon Dioxide 25.0 (21.0-31.0) mmol/L Anion Gap 11.3 BUN 12 (7-18) mg/dL Creatinine 0.8 (0.6-1.3) mg/dL Est Cr Clr Drug Dosing 153.58 mL/min Estimated GFR (MDRD) > 60 BUN/Creatinine Ratio 15.00 Glucose 95 (74-105) mg/dL Calcium 9.0 (8.4-10.2) mg/dl Total Bilirubin 0.7 (0.2-1.0) mg/dL AST 39 (10-42) IU/L ALT 76 H (10-60) IU/L Alkaline Phosphatase 67 (42-121) IU/L Total Protein 7.9 (6.7-8.2) g/dl Albumin 4.2 (3.2-5.5) g/dl Globulin 3.7 Albumin/Globulin Ratio 1.14 Urine Color (YELLOW) Urine Appearance (CLEAR) Urine pH (5.0-9.0) Ur Specific [place] (1.005-1.030) Urine Protein (NEGATIVE) Urine Glucose (UA) (NEGATIVE) Urine Ketones (NEGATIVE) Urine Occult Blood (NEGATIVE) Urine Nitrite (NEGATIVE) Urine Bilirubin (NEGATIVE) Urine Urobilinogen (0.2-1.0) mg/dL Ur Leukocyte Esterase (NEGATIVE) Urine RBC /HPF Urine WBC (0-5/HPF) /HPF Ur Epithelial Cells /HPF Urine Bacteria (0-FEW/HPF) /HPF Urine Opiates Screen Negative (NEGATIVE) Ur Oxycodone Screen Negative (NEGATIVE) Urine Methadone Screen Negative (NEGATIVE) Ur Barbiturates Screen Negative (NEGATIVE) U Tricyclic Antidepress Negative (NEGATIVE) Ur Phencyclidine Scrn Negative (NEGATIVE) Ur Amphetamine Screen Negative (NEGATIVE) U Methamphetamines Scrn Negative (NEGATIVE) Urine MDMA Screen Negative (NEGATIVE) U Benzodiazepines Scrn Negative (NEGATIVE) Urine Cocaine Screen Negative (NEGATIVE) U Marijuana (THC) Screen Positive H (NEGATIVE) 05/24/17 Range/Units 11:19 WBC (5.0-10.0) 10^3/uL RBC (4.6-6.2) 10^6/uL Hgb (14.0-18.0) g/dL Hct (40.0-54.0) % MCV (80-100) fL MCH (27.0-34.0) pg MCHC (33.0-35.0) g/dL Plt Count (150-450) 10^3/uL Neut % (Auto) (42.2-75.2) % Lymph % (Auto) (20.5-50.1) % [place] % (Auto) (2-8) % Eos % (Auto) (1.0-3.0) % Baso % (Auto) (0.0-1.0) % Sodium (135-145) mmol/L Potassium (3.6-5.0) mmol/L Chloride (101-111) mmol/L Carbon Dioxide (21.0-31.0) mmol/L Anion Gap BUN (7-18) mg/dL Creatinine (0.6-1.3) mg/dL Est Cr Clr Drug Dosing mL/min Estimated GFR (MDRD) BUN/Creatinine Ratio Glucose (74-105) mg/dL Calcium (8.4-10.2) mg/dl Total Bilirubin (0.2-1.0) mg/dL AST (10-42) IU/L ALT (10-60) IU/L Alkaline Phosphatase (42-121) IU/L Total Protein (6.7-8.2) g/dl Albumin (3.2-5.5) g/dl Globulin Albumin/Globulin Ratio Urine Color Yellow (YELLOW) Urine Appearance Clear (CLEAR) Urine pH 6.5 (5.0-9.0) Ur Specific [place] 1.020 (1.005-1.030) Urine Protein Negative (NEGATIVE) Urine Glucose (UA) Negative (NEGATIVE) Urine Ketones Negative (NEGATIVE) Urine Occult Blood Trace-lysed H (NEGATIVE) Urine Nitrite Negative (NEGATIVE) Urine Bilirubin Negative (NEGATIVE) Urine Urobilinogen 0.2 (0.2-1.0) mg/dL Ur Leukocyte Esterase Trace H (NEGATIVE) Urine RBC 0-5 /HPF Urine WBC 5-10 H (0-5/HPF) /HPF Ur Epithelial Cells Rare /HPF Urine Bacteria Rare (0-FEW/HPF) /HPF Urine Opiates Screen (NEGATIVE) Ur Oxycodone Screen (NEGATIVE) Urine Methadone Screen (NEGATIVE) Ur Barbiturates Screen (NEGATIVE) U Tricyclic Antidepress (NEGATIVE) Ur Phencyclidine Scrn (NEGATIVE) Ur Amphetamine Screen (NEGATIVE) U Methamphetamines Scrn (NEGATIVE) Urine MDMA Screen (NEGATIVE) U Benzodiazepines Scrn (NEGATIVE) Urine Cocaine Screen (NEGATIVE) U Marijuana (THC) Screen (NEGATIVE) Departure - Departure Time of Disposition: 13:26 Disposition: Home, Self-Care 01 Condition: Fair Clinical Impression: Cellulitis of periumbilical region - Discharge Information Instructions: Cellulitis, Adult Forms: ED Department Discharge Care Plan Goals: The patient was advised of the examination, lab and CT results during the visit. The patient was given a script for Bactrim DS #20 to take 1 by mouth 2 times per day for 10 days and Keflex (500 mg) #20 to take 1 by mouth 2 times per day for 10 days. If the patient has any additional symptoms or concerns, the patient should follow-up with his primary care facility or return to the emergency department.
[2017-05-24 11:59] LABS: CHLORIDE,CL 107 mmol/L (101-111); SODIUM,NA 139 mmol/L (135-145)
--- NOTE | 2017-05-24 13:18 | CT ---
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 Scan technique: Volume acquisition of data emergency unenhanced CT scan abdomen and pelvis obtained w ith the patient lying supine on the Siemens multi slice CT scanner [place], [place]. All data archived in the PACS system for storage, reformatting and study. Interpretation: 1. *Subtle focal skin thickening at the umbilicus without sign of underlying abscess or ventral wall hernia. No foreign bodies. 2. Normal reniform size axis and configuration without sign of nephrolithiasis or obstructive uropath y. Normal urinary bladder. 3. Gallbladder, unenhanced liver, stomach, spleen and pancreas unremarkable. Normal adrenal glands. 4. Surgical clips versus appendiceal calcifications (tiny appendicoliths) RLQ without associated infl ammatory changes. 5. No pelvic or abdominal mass lesion, inflammatory "dirty" peritoneal fat, signs of mechanical bowel obstruction, ascites or free intraperitoneal air. Lung bases clear. 6. Normal caliber aortoiliac vessels. No aneurysm or dissection. Lumbar spine unremarkable. CONCLUSION: Possible periumbilical cellulitis. Clinical? Otherwise negative exam abdomen and pelvis.
== END 2017-05-24 13:37 | disposition home or self-care (01) ==
LOC: DL.ED 10:48
DX: L03.316 Cellulitis of umbilicus (principal); E66.9 Obesity, unspecified; Z88.1 Allergy status to other antibiotic agents; Z88.8 Allergy status to other drugs, medicaments and biological substances; Z90.49 Acquired absence of other specified parts of digestive tract
CPT/HCPCS: 36415; 74176; 80053; 80305; 81001; 85025; 99284

== ENCOUNTER 2017-06-11 11:46 | Emergency (ER) | payer MEDICAID, OTHER ==
--- NOTE | 2017-06-11 12:52 | EDM.PDOC ---
ED HPI GENERAL MEDICAL PROBLEM - General Chief Complaint: Abdominal Pain Stated Complaint: [id number] GALLBLADDER Time Seen by Provider: 06/11/17 12:47 Source of Information: Reports: Patient, RN, RN Notes Reviewed History Limitations: Reports: No Limitations - History of Present Illness INITIAL COMMENTS - FREE TEXT/NARRATIVE: Pt presents to the ER with c/o nausea/vomiting and RUQ pain. He states the pain radiates to the right chest wall, up through the right shoulder, and the right upper back/scapula area. He states he has been vomiting yellow/green bile. He admits to fever last night for which he took ibuprofen at 5am today. He states his appetite has been decreased, last thing he remembers eating is chili a few days ago. Onset: Gradual Duration: Getting Worse, Intermittent Location: Reports: Abdomen Quality: Reports: Stabbing Severity: Moderate Improves with: Reports: None Worsens with: Reports: None Associated Symptoms: Reports: Fever/Chills, Nausea/Vomiting Treatments IUSS ANALYST: Reports: NSAIDS Right Upper Abdomen Pain Score (Numeric/FACES): 5 - Related Data Allergies Allergy/AdvReac Type Severity Reaction Status Date / Time amoxicillin [Amoxicillin] Allergy Rash Verified 06/11/17 12:09 bee venom protein (honey bee) Allergy Cannot Verified 06/11/17 12:09 Remember ketorolac tromethamine Allergy Rash Verified 06/11/17 12:09 [From Toradol] promethazine HCl Allergy Hallucinati Verified 06/11/17 12:09 [From Phenergan] ons tramadol HCl [From Ultram] Allergy Rash Verified 06/11/17 12:09 Home Meds: Home Meds NK [No Known Home Meds] 0 mg PO DAILY 06/11/17 [History] Past Medical History - Past Health History Medical/Surgical History: Denies Medical/Surgical History HEENT History: Reports: None Cardiovascular History: Reports: None Respiratory History: Reports: None Gastrointestinal History: Reports: None Genitourinary History: Reports: Renal Calculus Other Genitourinary History: Vascular kidney disease Musculoskeletal History: Reports: None Neurological History: Reports: None Psychiatric History: Reports: None Endocrine/Metabolic History: Reports: Obesity/BMI 30+ Hematologic History: Reports: None Immunologic History: Reports: None Oncologic (Cancer) History: Reports: None Dermatologic History: Reports: Other (See Below) - Infectious Disease History Infectious Disease History: Reports: Chicken Pox - Past Surgical History Head Surgeries/Procedures: Reports: None GI Surgical History: Reports: Appendectomy Other Male Surgeries/Procedures: Has had kidney biopsy Musculoskeletal Surgical History: Reports: Other (See Below) Other Musculoskeletal Surgeries/Procedures:: left arm Dermatological Surgical History: Reports: Other (See Below) Social & Family History - Family History Family Medical History: Noncontributory - Tobacco Use Smoking Status *Q: Never Smoker Years of Tobacco use: 2 Packs/Tins Daily: 1 Used Tobacco, but Quit: Yes Month Tobacco Last Used: 2014 Second Hand Smoke Exposure: No - Caffeine Use Caffeine Use: Reports: Soda - Alcohol Use Days Per Week of Alcohol Use: 0 Number of Drinks Per Day: 6 Total Drinks Per Week: 0 - Recreational Drug Use Recreational Drug Use: Yes Drug Use in Last 12 Months: Yes Recreational Drug Type: Reports: Marijuana/Hashish Recreational Drug Use Frequency: Weekly - Living Situation & Occupation Living situation: Reports: Single Occupation: Employed ED ROS GENERAL - Review of Systems Review Of Systems: ROS reveals no pertinent complaints other than HPI. ED EXAM, GI/ABD - Physical Exam Exam: See Below Exam Limited By: No Limitations General Appearance: Alert, WD/WN Ears: Normal External Exam, Hearing Grossly Normal Nose: Normal Inspection Throat/Mouth: Normal Inspection, Normal Voice, No Airway Compromise Head: Atraumatic, Normocephalic Neck: Normal Inspection, Full Range of Motion Respiratory/Chest: No Respiratory Distress, Lungs Clear, Normal Breath Sounds, No Accessory Muscle Use Cardiovascular: Normal Peripheral Pulses, Regular Rate, Rhythm, No Edema, No Gallop, No JVD, No Murmur, No Rub GI/Abdominal Exam: Normal Bowel Sounds, Soft, Tender (RUQ, RLQ) (Male) Exam: Deferred Rectal (Males) Exam: Deferred Back Exam: Normal Inspection, Full Range of Motion Extremities: Normal Inspection, Normal Range of Motion, Non-Tender, No Pedal Edema, Normal Capillary Refill Neurological: Alert, Oriented, Normal Cognition, No Motor/Sensory Deficits Psychiatric: Normal Affect, Normal Mood Skin Exam: Warm, Dry, Intact, Normal Color, No Rash Lymphatic: No Adenopathy Course - Vital Signs Last Recorded V/S: Last Vital Signs Temp 97.4 F 06/11/17 12:09 Pulse 86 06/11/17 12:09 Resp 20 06/11/17 12:09 BP 139/90 06/11/17 12:09 Pulse Ox 99 06/11/17 12:09 - Orders/Labs/Meds Orders: Active Orders 24 hr Category Date Time Status Peripheral IV Care [RC] . DIRECTED Care 06/11/17 13:39 Active Abdomen Pelvis w Cont [CT] Urgent Exams 06/11/17 13:47 Taken Sodium Chloride 0.9% [Saline Flush] Med 06/11/17 13:39 Active 10 ml FLUSH ASDIRECTED PRN Peripheral IV Insertion Adult [OM.PC] Stat Oth 06/11/17 13:39 Ordered Medication Orders Sodium Chloride (Saline Flush) 10 ml FLUSH ASDIRECTED PRN PRN Reason: Keep Vein Open Last Admin: 06/11/17 15:01 Dose: 10 ml Admin: 06/11/17 14:10 Dose: 10 ml Admin: 06/11/17 14:04 Dose: 10 ml Labs: Laboratory Tests 06/11/17 06/11/17 06/11/17 Range/Units 12:56 12:56 12:56 WBC 8.6 (5.0-10.0) 10^3/uL RBC 5.36 (4.6-6.2) 10^6/uL Hgb 15.8 (14.0-18.0) g/dL Hct 47.1 (40.0-54.0) % MCV 87.9 (80-100) fL MCH 29.5 (27.0-34.0) pg MCHC 33.5 (33.0-35.0) g/dL Plt Count 215 (150-450) 10^3/uL Neut % (Auto) 59.9 (42.2-75.2) % Lymph % (Auto) 25.2 (20.5-50.1) % [place] % (Auto) 10.2 H (2-8) % Eos % (Auto) 4.5 H (1.0-3.0) % Baso % (Auto) 0.2 (0.0-1.0) % Sodium 138 (135-145) mmol/L Potassium 3.7 (3.6-5.0) mmol/L Chloride 105 (101-111) mmol/L Carbon Dioxide 21.0 (21.0-31.0) mmol/L Anion Gap 15.7 BUN 10 (7-18) mg/dL Creatinine 0.7 (0.6-1.3) mg/dL Est Cr Clr Drug Dosing 180.73 mL/min Estimated GFR (MDRD) > 60 BUN/Creatinine Ratio 14.28 Glucose 90 (74-105) mg/dL Calcium 9.0 (8.4-10.2) mg/dl Total Bilirubin 2.9 H (0.2-1.0) mg/dL AST 1014 H (10-42) IU/L ALT 1646 H (10-60) IU/L Alkaline Phosphatase 200 H (42-121) IU/L Total Protein 7.9 (6.7-8.2) g/dl Albumin 4.2 (3.2-5.5) g/dl Globulin 3.7 Albumin/Globulin Ratio 1.14 Amylase < 5 L (28-100) U/L Lipase 19 L (22-51) U/L Urine Color (YELLOW) Urine Appearance (CLEAR) Urine pH (5.0-9.0) Ur Specific [place] (1.005-1.030) Urine Protein (NEGATIVE) Urine Glucose (UA) (NEGATIVE) Urine Ketones (NEGATIVE) Urine Occult Blood (NEGATIVE) Urine Nitrite (NEGATIVE) Urine Bilirubin (NEGATIVE) Urine Urobilinogen (0.2-1.0) mg/dL Ur Leukocyte Esterase (NEGATIVE) Urine RBC /HPF Urine WBC (0-5/HPF) /HPF Ur Epithelial Cells /HPF Amorphous Sediment (0/HPF) /HPF Urine Bacteria (0-FEW/HPF) /HPF Urine Mucus /LPF Urine Opiates Screen (NEGATIVE) Ur Oxycodone Screen (NEGATIVE) Urine Methadone Screen (NEGATIVE) Ur Barbiturates Screen (NEGATIVE) U Tricyclic Antidepress (NEGATIVE) Ur Phencyclidine Scrn (NEGATIVE) Ur Amphetamine Screen (NEGATIVE) U Methamphetamines Scrn (NEGATIVE) Urine MDMA Screen (NEGATIVE) U Benzodiazepines Scrn (NEGATIVE) Urine Cocaine Screen (NEGATIVE) U Marijuana (THC) Screen (NEGATIVE) 06/11/17 06/11/17 Range/Units 13:26 13:26 WBC (5.0-10.0) 10^3/uL RBC (4.6-6.2) 10^6/uL Hgb (14.0-18.0) g/dL Hct (40.0-54.0) % MCV (80-100) fL MCH (27.0-34.0) pg MCHC (33.0-35.0) g/dL Plt Count (150-450) 10^3/uL Neut % (Auto) (42.2-75.2) % Lymph % (Auto) (20.5-50.1) % [place] % (Auto) (2-8) % Eos % (Auto) (1.0-3.0) % Baso % (Auto) (0.0-1.0) % Sodium (135-145) mmol/L Potassium (3.6-5.0) mmol/L Chloride (101-111) mmol/L Carbon Dioxide (21.0-31.0) mmol/L Anion Gap BUN (7-18) mg/dL Creatinine (0.6-1.3) mg/dL Est Cr Clr Drug Dosing mL/min Estimated GFR (MDRD) BUN/Creatinine Ratio Glucose (74-105) mg/dL Calcium (8.4-10.2) mg/dl Total Bilirubin (0.2-1.0) mg/dL AST (10-42) IU/L ALT (10-60) IU/L Alkaline Phosphatase (42-121) IU/L Total Protein (6.7-8.2) g/dl Albumin (3.2-5.5) g/dl Globulin Albumin/Globulin Ratio Amylase (28-100) U/L Lipase (22-51) U/L Urine Color [place] (YELLOW) Urine Appearance Slightly cloudy (CLEAR) Urine pH 6.0 (5.0-9.0) Ur Specific [place] 1.025 (1.005-1.030) Urine Protein 30 H (NEGATIVE) Urine Glucose (UA) Negative (NEGATIVE) Urine Ketones 40 H (NEGATIVE) Urine Occult Blood Small H (NEGATIVE) Urine Nitrite Negative (NEGATIVE) Urine Bilirubin Large H (NEGATIVE) Urine Urobilinogen 1.0 (0.2-1.0) mg/dL Ur Leukocyte Esterase Small H (NEGATIVE) Urine RBC 10-20 H /HPF Urine WBC 40-50 H (0-5/HPF) /HPF Ur Epithelial Cells Moderate H /HPF Amorphous Sediment Few (0/HPF) /HPF Urine Bacteria Rare (0-FEW/HPF) /HPF Urine Mucus Many H /LPF Urine Opiates Screen Negative (NEGATIVE) Ur Oxycodone Screen Negative (NEGATIVE) Urine Methadone Screen Negative (NEGATIVE) Ur Barbiturates Screen Negative (NEGATIVE) U Tricyclic Antidepress Negative (NEGATIVE) Ur Phencyclidine Scrn Negative (NEGATIVE) Ur Amphetamine Screen Negative (NEGATIVE) U Methamphetamines Scrn Negative (NEGATIVE) Urine MDMA Screen Negative (NEGATIVE) U Benzodiazepines Scrn Negative (NEGATIVE) Urine Cocaine Screen Negative (NEGATIVE) U Marijuana (THC) Screen Positive H (NEGATIVE) Meds: Medications Generic Name Dose Route Start Last Admin Trade Name Freq PRN Reason Stop Dose Admin Sodium Chloride 10 ml 06/11/17 13:39 06/11/17 15:01 Saline Flush FLUSH 10 ml ASDIRECTED PRN Administration Keep Vein Open Discontinued Medications Generic Name Dose Route Start Last Admin Trade Name Freq PRN Reason Stop Dose Admin Hydromorphone HCl 1 mg 06/11/17 13:42 06/11/17 14:08 Dilaudid IVPUSH 06/11/17 13:43 1 mg ONETIME ONE Administration Hydromorphone HCl 1 mg 06/11/17 14:53 06/11/17 15:01 Dilaudid IVPUSH 06/11/17 14:54 1 mg ONETIME ONE Administration Iopamidol 100 ml 06/11/17 13:48 06/11/17 14:37 Isovue-300 (61%) IVPUSH 06/11/17 13:49 100 ml ONETIME ONE Administration - Radiology Interpretation Free Text/Narrative:: Abdominal/Pelvis with contrast: Abnormal: Mildly enlarged celiac axis and periportal lymph nodes. See rad report CT Results Date: 06/11/17 CT Results Time: 15:14 Departure - Departure Time of Disposition: 15:45 Disposition: DC/Tfer to Acute Hospital 02 Condition: Fair, Serious Clinical Impression: Intra-abdominal lymphadenopathy, Elevated LFTs - Discharge Information Forms: ED Department Discharge, Interfacility Transfer EMTALA - My Orders Last 24 Hours: My Active Orders 06/11/17 13:39 Peripheral IV Care [RC] . DIRECTED Sodium Chloride 0.9% [Saline Flush] 10 ml FLUSH ASDIRECTED PRN Peripheral IV Insertion Adult [OM.PC] Stat 06/11/17 13:47 Abdomen Pelvis w Cont [CT] Urgent - Assessment/Plan Last 24 Hours: My Active Orders 06/11/17 13:39 Peripheral IV Care [RC] . DIRECTED Sodium Chloride 0.9% [Saline Flush] 10 ml FLUSH ASDIRECTED PRN Peripheral IV Insertion Adult [OM.PC] Stat 06/11/17 13:47 Abdomen Pelvis w Cont [CT] Urgent
[2017-06-11 13:27] LABS: CHLORIDE,CL 105 mmol/L (101-111); SODIUM,NA 138 mmol/L (135-145)
[2017-06-11] MEDS ORDERED: HYDROmorphone 1 MG/ML Syringe IVPUSH ONE ×3 (13:42→15:50)
[2017-06-11] MEDS ORDERED: Iopamidol 612 MG/ML 100 ML Bottle IVPUSH ONE (13:48)
[2017-06-11] MEDS: Sodium Chloride 0.9% 10 ML Syringe FLUSH PRN ×4 (14:04→16:05)
[2017-06-11 15:53] VITALS: BP 105/59
[2017-06-11] MEDS ORDERED: Ondansetron 4 MG/2 ML SDV IV ONE (15:59)
== END 2017-06-11 16:37 ==
LOC: DL.ED 11:46
DX: R59.0 Localized enlarged lymph nodes (principal); R79.89 Other specified abnormal findings of blood chemistry; E66.9 Obesity, unspecified; Z88.1 Allergy status to other antibiotic agents
CPT/HCPCS: 36415; 74177; 80053; 80305; 81001; 82150; 83690; 85025; 96374; 96375; 96376; 99285; J1170; J2405; J7050; Q9967

== ENCOUNTER 2018-09-05 08:04 | Emergency (ER) | payer MEDICAID, OTHER ==
--- NOTE | 2018-09-05 08:23 | EDM.PDOC ---
ED HPI GENERAL MEDICAL PROBLEM - General Chief Complaint: Flank Pain Stated Complaint: FLANK PAIN [id number] Time Seen by Provider: 09/05/18 08:20 Source of Information: Reports: Patient, Old Records, RN, RN Notes Reviewed History Limitations: Reports: No Limitations - History of Present Illness INITIAL COMMENTS - FREE TEXT/NARRATIVE: Pt presents to ER from home by POV with c/o onset of left flank pain 2 days ago , and has slowly progressed to a severe constant pain associated with hematuria. He denies radiating pain, fever, chills, N/V, or diarrhea. 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 Onset: Gradual Duration: Constant, Getting Worse Location: Reports: Other (Flank) Quality: Reports: Ache, Same as Previous Episode Severity: Severe Improves with: Reports: None Worsens with: Reports: None Associated Symptoms: Reports: No Other Symptoms Bilateral Flank Pain Score (Numeric/FACES): 8 - Related Data Allergies Allergy/AdvReac Type Severity Reaction Status Date / Time amoxicillin [Amoxicillin] Allergy Rash Verified 06/08/18 01:30 bee venom protein (honey bee) Allergy Cannot Verified 06/08/18 01:30 Remember ketorolac tromethamine Allergy Rash Verified 06/08/18 01:30 [From Toradol] promethazine HCl Allergy Hallucinati Verified 06/08/18 01:30 [From Phenergan] ons tramadol HCl [From Ultram] Allergy Rash Verified 06/08/18 01:30 Home Meds: Home Meds NK [No Known Home Meds] 0 mg PO DAILY 06/11/17 [History] Past Medical History - Past Health History Medical/Surgical History: Denies Medical/Surgical History HEENT History: Reports: None Cardiovascular History: Reports: None Respiratory History: Reports: None Gastrointestinal History: Reports: None Genitourinary History: Reports: Renal Calculus, Other (See Below) Other Genitourinary History: Vascular kidney disease Musculoskeletal History: Reports: None Neurological History: Reports: None Psychiatric History: Reports: None Endocrine/Metabolic History: Reports: Obesity/BMI 30+ Hematologic History: Reports: Other (See Below) (Henoch Schonlein purpura) Immunologic History: Reports: None Oncologic (Cancer) History: Reports: None Dermatologic History: Reports: Other (See Below) - Infectious Disease History Infectious Disease History: Reports: Chicken Pox - Past Surgical History Head Surgeries/Procedures: Reports: None GI Surgical History: Reports: Appendectomy Other Male Surgeries/Procedures: Has had kidney biopsy Musculoskeletal Surgical History: Reports: Other (See Below) Other Musculoskeletal Surgeries/Procedures:: left arm Dermatological Surgical History: Reports: Other (See Below) Social & Family History - Family History Family Medical History: Noncontributory - Tobacco Use Smoking Status *Q: Never Smoker - Caffeine Use Caffeine Use: Reports: Tea - Alcohol Use Alcohol Use History: Yes Alcohol Use Frequency: Socially - Recreational Drug Use Recreational Drug Use: No - Living Situation & Occupation Living situation: Reports: Single Occupation: Employed ED ROS GENERAL - Review of Systems Review Of Systems: ROS reveals no pertinent complaints other than HPI. ED EXAM, RENAL/ - Physical Exam Exam: See Below Exam Limited By: No Limitations General Appearance: Alert, No Apparent Distress, Obese, Other (Uncomfortable appearing) Nose: Normal Inspection, No Blood Throat/Mouth: Normal Inspection Head: Atraumatic, Normocephalic Respiratory/Chest: No Respiratory Distress, Lungs Clear, Normal Breath Sounds, No Accessory Muscle Use, Chest Non-Tender Cardiovascular: Regular Rate, Rhythm GI/Abdominal: Normal Bowel Sounds, Soft, No Distention. No: Guarding, Rigid, Rebound (Male) Exam: Deferred Rectal (Males) Exam: Deferred Back Exam: Full Range of Motion. No: Vertebral Tenderness Extremities: Normal Inspection Neurological: Alert, Oriented, CN II-XII Intact, Normal Cognition, No Motor/ Sensory Deficits Psychiatric: Normal Affect, Normal Mood Skin Exam: Warm, Dry, Intact, Normal Color, No Rash Course - Vital Signs Last Recorded V/S: Last Vital Signs Temp 35.7 C 09/05/18 08:25 Pulse 66 09/05/18 08:25 Resp 18 09/05/18 08:25 BP 146/78 H 09/05/18 08:25 Pulse Ox 98 09/05/18 08:25 - Orders/Labs/Meds Orders: Active Orders 24 hr Category Date Time Status BASIC METABOLIC PANEL,BMP [CHEM] Stat Lab 09/05/18 08:42 Received Labs: Laboratory Tests 09/05/18 09/05/18 09/05/18 Range/Units 08:20 08:20 08:42 WBC 9.7 (5.0-10.0) 10^3/uL RBC 5.09 (4.6-6.2) 10^6/uL Hgb 15.2 (14.0-18.0) g/dL Hct 44.1 (40.0-54.0) % MCV 86.6 (80-100) fL MCH 29.9 (27.0-34.0) pg MCHC 34.5 (33.0-35.0) g/dL Plt Count 263 (150-450) 10^3/uL Neut % (Auto) 64.3 (42.2-75.2) % Lymph % (Auto) 24.9 (20.5-50.1) % [place] % (Auto) 9.0 H (2-8) % Eos % (Auto) 1.6 (1.0-3.0) % Baso % (Auto) 0.2 (0.0-1.0) % Urine Color [place] (YELLOW) Urine Appearance Cloudy (CLEAR) Urine pH 5.5 (5.0-9.0) Ur Specific [place] >= 1.030 (1.005-1.030) Urine Protein Trace H (NEGATIVE) Urine Glucose (UA) Negative (NEGATIVE) Urine Ketones Negative (NEGATIVE) Urine Occult Blood Large H (NEGATIVE) Urine Nitrite Negative (NEGATIVE) Urine Bilirubin Negative (NEGATIVE) Urine Urobilinogen 0.2 (0.2-1.0) mg/dL Ur Leukocyte Esterase Negative (NEGATIVE) Urine RBC Semi-packed H /HPF Urine WBC 0-5 (0-5/HPF) /HPF Ur Epithelial Cells Few /HPF Urine Bacteria Few (0-FEW/HPF) /HPF Urine Opiates Screen Negative (NEGATIVE) Ur Oxycodone Screen Negative (NEGATIVE) Urine Methadone Screen Negative (NEGATIVE) Ur Barbiturates Screen Negative (NEGATIVE) U Tricyclic Antidepress Negative (NEGATIVE) Ur Phencyclidine Scrn Negative (NEGATIVE) Ur Amphetamine Screen Negative (NEGATIVE) U Methamphetamines Scrn Negative (NEGATIVE) Urine MDMA Screen Negative (NEGATIVE) U Benzodiazepines Scrn Negative (NEGATIVE) Urine Cocaine Screen Negative (NEGATIVE) U Marijuana (THC) Screen Positive H (NEGATIVE) Departure - Departure Time of Disposition: 09:01 Disposition: Home, Self-Care 01 Condition: Good Clinical Impression: Hematuria syndrome, Flank pain, History of Henoch-Schonlein purpura - Discharge Information *PRESCRIPTION DRUG MONITORING PROGRAM REVIEWED*: Yes *COPY OF PRESCRIPTION DRUG MONITORING REPORT IN PATIENT NICO: No Instructions: Flank Pain, Adult, [id number], Hematuria, Adult Forms: ED Department Discharge Additional Instructions: Rx: Oxycodone APAP 10mg/325mg *Do not drive while under the influence of this medication. Follow up with your primary clinic for recheck and pain management. Call your nephrology clinic to schedule a follow up appointment. - My Orders Last 24 Hours: My Active Orders 09/05/18 08:42 BASIC METABOLIC PANEL,BMP [CHEM] Stat - Assessment/Plan Last 24 Hours: My Active Orders 09/05/18 08:42 BASIC METABOLIC PANEL,BMP [CHEM] Stat
[2018-09-05 08:45] VITALS: BP 146/78
[2018-09-05 09:08] LABS: CHLORIDE,CL 107 mmol/L (101-111); SODIUM,NA 136 mmol/L (135-145)
[2018-09-05] MEDS ORDERED: Acetaminophen/oxyCODONE 325-5 MG Tab PO ONE (09:10)
== END 2018-09-05 09:19 | disposition home or self-care (01) ==
LOC: DL.ED 08:04
DX: R31.9 Hematuria, unspecified (principal); R10.9 Unspecified abdominal pain; D69.0 Allergic purpura; E66.9 Obesity, unspecified; Z79.899 Other long term (current) drug therapy; Z90.49 Acquired absence of other specified parts of digestive tract; Z88.1 Allergy status to other antibiotic agents; Z91.030 Bee allergy status
CPT/HCPCS: 36415; 80048; 80305-QW; 81001; 85025; 99284; A9270-GY

== ENCOUNTER 2019-01-19 00:13 | Emergency (ER) | payer MEDICAID, OTHER ==
[2019-01-19] MEDS ORDERED: fentaNYL 100 MCG/2 ML SDV IVPUSH ONE (00:18)
[2019-01-19 00:23] VITALS: BP 136/75
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
[2019-01-19] MEDS ORDERED: Iopamidol 612 MG/ML 100 ML Bottle IVPUSH ONE ×2 (00:31→01:48)
[2019-01-19] MEDS ORDERED: Iopamidol 612 MG/ML 75 ML Bottle IVPUSH ONE (01:54)
[2019-01-19] MEDS ORDERED: Iopamidol 612 MG/ML 50 ML SDV IVPUSH ONE (02:02)
[2019-01-19 02:06] LABS: ANION GAP 14.7; CHLORIDE,CL 105 mmol/L (101-111); SODIUM,NA 136 mmol/L (135-145)
== END 2019-01-19 02:23 | disposition home or self-care (01) ==
LOC: DL.ED 00:13
DX: S06.9X9A Unspecified intracranial injury with loss of consciousness of unspecified duration, initial encounter (principal); S80.11XA Contusion of right lower leg, initial encounter; M54.2 Cervicalgia; R07.89 Other chest pain; Z88.1 Allergy status to other antibiotic agents; Z91.030 Bee allergy status; Z88.5 Allergy status to narcotic agent; V09.9XXA Pedestrian injured in unspecified transport accident, initial encounter
CPT/HCPCS: 36415; 70450; 71260; 72125; 73590; 73610; 73630; 74177; 80053; 85025; 96374; 99285; G0480; J3010; Q9967

== ENCOUNTER 2019-07-03 14:04 | Emergency (ER) | payer MEDICAID, OTHER ==
[2019-07-03 14:16] VITALS: BP 136/74; PULSE 74
--- NOTE | 2019-07-03 14:18 | EDM.PDOC ---
ED HPI GENERAL MEDICAL PROBLEM - General Chief Complaint: Abdominal Pain Stated Complaint: GALBLADDER Time Seen by Provider: 07/03/19 14:13 Source of Information: Reports: Patient, Old Records, RN, RN Notes Reviewed History Limitations: Reports: No Limitations - History of Present Illness INITIAL COMMENTS - FREE TEXT/NARRATIVE: Pt presents to ER by POV with c/o "a gallbladder attack". Pt report severe RUQ abdominal pain that began 6 days ago and keeps recurring. The pain has been worse in the last 2 days. Pt states the pain radiates to the right shoulder blade area. Pt rates the pain 10/10. Nothing alleviates the pain. The pain is worse with eating. Pt has Hx of "high liver enzymes", gallbladder disease, kidney disease. Onset: Gradual Duration: Getting Worse, Recurring Location: Reports: Abdomen, Radiates to (Rt upper back) Quality: Reports: Ache, Same as Previous Episode, Throbbing Severity: Severe Improves with: Reports: None Worsens with: Reports: Eating Associated Symptoms: Reports: No Other Symptoms Upper Abdomen Pain Score (Numeric/FACES): 10 - Related Data Allergies Allergy/AdvReac Type Severity Reaction Status Date / Time amoxicillin [Amoxicillin] Allergy Rash Verified 01/19/19 01:21 bee venom protein (honey bee) Allergy Cannot Verified 01/19/19 01:21 Remember ketorolac tromethamine Allergy Rash Verified 01/19/19 01:21 [From Toradol] promethazine HCl Allergy Hallucinati Verified 01/19/19 01:21 [From Phenergan] ons tramadol HCl [From Ultram] Allergy Rash Verified 01/19/19 01:21 Home Meds: Home Meds NK [No Known Home Meds] 0 mg PO DAILY 06/11/17 [History] Past Medical History - Past Health History Medical/Surgical History: Denies Medical/Surgical History HEENT History: Reports: None Cardiovascular History: Reports: None Respiratory History: Reports: None Gastrointestinal History: Reports: None Genitourinary History: Reports: Renal Calculus, Other (See Below) Other Genitourinary History: Vascular kidney disease Musculoskeletal History: Reports: None Neurological History: Reports: None Psychiatric History: Reports: None Endocrine/Metabolic History: Reports: Obesity/BMI 30+ Hematologic History: Reports: Other (See Below) (Henoch Schonlein purpura) Immunologic History: Reports: None Oncologic (Cancer) History: Reports: None Dermatologic History: Reports: Other (See Below) - Infectious Disease History Infectious Disease History: Reports: Chicken Pox - Past Surgical History Head Surgeries/Procedures: Reports: None GI Surgical History: Reports: Appendectomy Other Male Surgeries/Procedures: Has had kidney biopsy Musculoskeletal Surgical History: Reports: Other (See Below) Other Musculoskeletal Surgeries/Procedures:: left arm Dermatological Surgical History: Reports: Other (See Below) Social & Family History - Family History Family Medical History: Noncontributory - Tobacco Use Tobacco Use Within Last Twelve Months: Smokeless Tobacco - Caffeine Use Caffeine Use: Reports: Tea - Alcohol Use Alcohol Use History: Yes Alcohol Use Frequency: Binges, Socially - Recreational Drug Use Recreational Drug Use: Yes Recreational Drug Type: Reports: Marijuana/Hashish - Living Situation & Occupation Living situation: Reports: Single Occupation: Employed ED ROS GENERAL - Review of Systems Review Of Systems: ROS reveals no pertinent complaints other than HPI. ED EXAM, GI/ABD - Physical Exam Exam: See Below Exam Limited By: No Limitations General Appearance: Alert, Mild Distress (Due to RUQ abdominal pain), Obese, Active Emesis Eyes: Bilateral: Normal Appearance (No scleral icterus) Nose: Normal Inspection Throat/Mouth: Normal Lips, Normal Voice, No Airway Compromise, Other (Dry oral mucosa) Head: Atraumatic, Normocephalic Neck: Normal Inspection Respiratory/Chest: No Respiratory Distress, Lungs Clear, Normal Breath Sounds, No Accessory Muscle Use, Chest Non-Tender Cardiovascular: Regular Rate, Rhythm GI/Abdominal Exam: Normal Bowel Sounds, Soft, No Distention, Guarding (at RUQ), Tender (Acutely tender to palpation at RUQ, also tender at epigastric region.), Other (Significantly obese abdomen). No: Rigid, Rebound (Male) Exam: Deferred Back Exam: Normal Inspection, Full Range of Motion. No: CVA Tenderness (L), CVA Tenderness (R) Extremities: Normal Inspection Neurological: Alert, Oriented, No Motor/Sensory Deficits Psychiatric: Normal Mood Skin Exam: Warm, Intact, Normal Color, Diaphoretic Course - Vital Signs Last Recorded V/S: Last Vital Signs Temp 98 F 07/03/19 14:11 Pulse 74 07/03/19 14:11 Resp 18 07/03/19 14:11 BP 136/74 07/03/19 14:11 Pulse Ox 100 07/03/19 14:11 - Orders/Labs/Meds Orders: Active Orders 24 hr Category Date Time Status Peripheral IV Care [RC] . DIRECTED Care 07/03/19 14:29 Active Abdomen Pelvis w Cont [CT] Stat Exams 07/03/19 15:19 Taken Peripheral IV Insertion Adult [OM.PC] Stat Oth 07/03/19 14:29 Ordered Labs: Laboratory Tests 07/03/19 07/03/19 07/03/19 Range/Units 14:50 14:50 14:50 WBC 10.2 H (5.0-10.0) 10^3/uL RBC 5.55 (4.6-6.2) 10^6/uL Hgb 16.2 (14.0-18.0) g/dL Hct 46.7 (40.0-54.0) % MCV 84.1 (80-100) fL MCH 29.2 (27.0-34.0) pg MCHC 34.7 (33.0-35.0) g/dL Plt Count 271 (150-450) 10^3/uL Neut % (Auto) 59.4 (42.2-75.2) % Lymph % (Auto) 29.6 (20.5-50.1) % [place] % (Auto) 7.2 (2-8) % Eos % (Auto) 3.5 H (1.0-3.0) % Baso % (Auto) 0.3 (0.0-1.0) % Sodium 140 (135-145) mmol/L Potassium 3.9 (3.6-5.0) mmol/L Chloride 108 (101-111) mmol/L Carbon Dioxide 24.0 (21.0-31.0) mmol/L Anion Gap 11.9 BUN 10 (7-18) mg/dL Creatinine 0.9 (0.6-1.3) mg/dL Est Cr Clr Drug Dosing 138.10 mL/min Estimated GFR (MDRD) > 60 BUN/Creatinine Ratio 11.11 Glucose 92 (74-105) mg/dL Lactic Acid 1.1 (0.5-2.2) mmol/L Calcium 8.9 (8.4-10.2) mg/dl Total Bilirubin 0.8 (0.2-1.0) mg/dL AST 19 (10-42) IU/L ALT 29 (10-60) IU/L Alkaline Phosphatase 60 (42-121) IU/L Total Protein 7.4 (6.7-8.2) g/dl Albumin 4.3 (3.2-5.5) g/dl Globulin 3.1 Albumin/Globulin Ratio 1.39 Amylase 32 (28-100) U/L Lipase 27 (22-51) U/L Meds: Medications Discontinued Medications Generic Name Dose Route Start Last Admin Trade Name Freq PRN Reason Stop Dose Admin Hydromorphone HCl 1 mg 07/03/19 14:28 07/03/19 14:36 Dilaudid IVPUSH 07/03/19 14:29 1 mg ONETIME ONE Administration Hydromorphone HCl 1 mg 07/03/19 15:11 07/03/19 15:18 Dilaudid IVPUSH 07/03/19 15:12 1 mg ONETIME ONE Administration Hydromorphone HCl 1 mg 07/03/19 16:39 07/03/19 16:46 Dilaudid IVPUSH 07/03/19 16:40 1 mg ONETIME ONE Administration Sodium Chloride 1,000 mls @ 999 mls/hr 07/03/19 14:28 07/03/19 14:35 Normal Saline IV 07/03/19 15:28 999 mls/hr .BOLUS ONE Administration Iopamidol 50 ml 07/03/19 15:18 07/03/19 16:09 Isovue-300 (61%) IVPUSH 07/03/19 15:19 50 ml ONETIME ONE Administration Iopamidol 75 ml 07/03/19 15:19 07/03/19 16:09 Isovue-300 (61%) IVPUSH 07/03/19 15:20 75 ml ONETIME ONE Administration Ondansetron HCl 4 mg 07/03/19 14:28 07/03/19 14:36 Zofran IV 07/03/19 14:29 4 mg ONETIME ONE Administration Ondansetron HCl 4 mg 07/03/19 15:11 07/03/19 15:18 Zofran IV 07/03/19 15:12 4 mg ONETIME ONE Administration Sodium Chloride 10 ml 07/03/19 14:28 07/03/19 16:39 Saline Flush FLUSH 10 ml ASDIRECTED PRN Administration Keep Vein Open - Radiology Interpretation Free Text/Narrative:: [facility] [place] [facility] Final Radiology Report Call: [phone] assistance Online chat: [email or web address] Name: ZEN WYNNE Age: 29Years M Date: 07/03/2019 SSN: -- : 1990 Study: CT ABDOMEN/PELVIS W Requesting Physician: SAMUEL PATEL Images: [id number] Addl Studies: Provided Clinical History: Contrast: With Contrast Medium: [id number] Contrast Amount: 125 mL Contrast Method: left hand Page 1 of 2 PROCEDURE INFORMATION: Exam: CT Abdomen And Pelvis With Contrast Exam date and time: 07/03/2019 3:51 PM Clinical history: 29 years old, male; Vomiting and other: Severe ruq pain TECHNIQUE: Imaging protocol: Computed tomography of the abdomen and pelvis with intravenous contrast. Radiation optimization: All CT scans at this facility use at least one of these dose optimization techniques: automated exposure control; mA and/or kV adjustment per patient size (includes targeted exams where dose is matched to clinical indication); or iterative reconstruction. Contrast material: [id number]; Contrast volume: 125 ml; Contrast route: LEFT HAND ; COMPARISON: No relevant prior studies available. FINDINGS: Liver: Normal. No mass. Gallbladder and bile ducts: Normal. No calcified stones. No ductal dilation. Pancreas: Normal. No ductal dilation. Spleen: Normal. No splenomegaly. Adrenals: Normal. No mass. Kidneys and ureters: Normal. No hydronephrosis. Stomach and bowel: Unremarkable. No obstruction. No mucosal thickening. Appendix: No evidence of appendicitis. Intraperitoneal space: Unremarkable. No free air. No significant fluid collection. Vasculature: Unremarkable. No abdominal aortic aneurysm. Lymph nodes: Unremarkable. No enlarged lymph nodes. Bladder: Unremarkable as visualized. ZEN WYNNE | Final Radiology Report CONFIDENTIALITY STATEMENT This report is intended only for use by the referring physician, and only in accordance with law. If you received this in error, call [phone]. Page 2 of 2 Reproductive: Unremarkable as visualized. Bones/joints: Unremarkable. No acute fracture. Soft tissues: Unremarkable. IMPRESSION: No acute findings. Thank you for allowing us to participate in the care of your patient. Dictated and Authenticated by: Jaleel Warner MD 07/03/2019 4:21 PM Central Time ([place] & [place]) - Re-Assessments/Exams Free Text/Narrative Re-Assessment/Exam: 07/03/19 16:58 Pt with intractable RUQ pain and nausea. No specific cause found on exam,lab or imaging. Pt wishes to be transferred so that he may have further evaluation. Departure - Departure Time of Disposition: 16:49 Disposition: DC/Tfer to [facility] 02 Condition: Undetermined Clinical Impression: Abdominal pain Qualifiers: Abdominal location: right upper quadrant Qualified Code(s): R10.11 - Right upper quadrant pain - Discharge Information *PRESCRIPTION DRUG MONITORING PROGRAM REVIEWED*: No *COPY OF PRESCRIPTION DRUG MONITORING REPORT IN PATIENT NICO: No Referrals: PCP,Unknown [Primary Care Provider] - Forms: ED Department Discharge, Interfacility Transfer EMTALA - My Orders Last 24 Hours: My Active Orders 07/03/19 14:29 Peripheral IV Care [RC] . DIRECTED Peripheral IV Insertion Adult [OM.PC] Stat 07/03/19 15:19 Abdomen Pelvis w Cont [CT] Stat - Assessment/Plan Last 24 Hours: My Active Orders 07/03/19 14:29 Peripheral IV Care [RC] . DIRECTED Peripheral IV Insertion Adult [OM.PC] Stat 07/03/19 15:19 Abdomen Pelvis w Cont [CT] Stat
[2019-07-03] MEDS ORDERED: HYDROmorphone 1 MG/ML Syringe IVPUSH ONE ×3 (14:28→16:39)
[2019-07-03] MEDS ORDERED: Ondansetron 4 MG/2 ML SDV IV ONE ×2 (14:28→15:11)
[2019-07-03] MEDS ORDERED: Sodium Chloride 0.9% 1,000 ML IV ONE (14:28)
[2019-07-03] MEDS ORDERED: Sodium Chloride 0.9% 10 ML Syringe FLUSH PRN (14:28)
[2019-07-03 15:15] LABS: ANION GAP 11.9; CHLORIDE,CL 108 mmol/L (101-111); SODIUM,NA 140 mmol/L (135-145)
[2019-07-03] MEDS ORDERED: Iopamidol 612 MG/ML 50 ML SDV IVPUSH ONE (15:18)
[2019-07-03] MEDS ORDERED: Iopamidol 612 MG/ML 75 ML Bottle IVPUSH ONE (15:19)
== END 2019-07-03 17:51 ==
LOC: DL.ED 14:04
DX: R10.11 Right upper quadrant pain (principal); E66.9 Obesity, unspecified; Z68.42 Body mass index [BMI] 45.0-49.9, adult; Z88.0 Allergy status to penicillin; Z91.030 Bee allergy status; Z88.6 Allergy status to analgesic agent; Z88.8 Allergy status to other drugs, medicaments and biological substances; F17.290 Nicotine dependence, other tobacco product, uncomplicated
CPT/HCPCS: 36415; 74177; 80053; 82150; 83605; 83690; 85025; 96361; 96374; 96375; 96376; 99285; J1170; J2405; J7030; Q9967

== ENCOUNTER 2019-07-04 15:50 | Emergency (ER) | payer MEDICAID, OTHER ==
[2019-07-04] MEDS: Sodium Chloride 0.9% 1,000 ML IV ONE (16:42)
[2019-07-04] MEDS: Ondansetron 4 MG/2 ML SDV IV ONE (16:44)
[2019-07-04] MEDS: HYDROmorphone 1 MG/ML Syringe IVPUSH ONE (16:44)
[2019-07-04] MEDS: Pantoprazole 40 MG Vial IVPUSH ONE (16:44)
[2019-07-04] MEDS: Sodium Chloride 0.9% 10 ML Syringe FLUSH PRN (16:45)
[2019-07-04 16:59] VITALS: BP 149/81; PULSE 82
[2019-07-04 17:08] LABS: ANION GAP 12.7; CHLORIDE,CL 105 mmol/L (101-111); SODIUM,NA 138 mmol/L (135-145)
[2019-07-04] MEDS: diphenhydrAMINE 50 MG/ML SDV IVPUSH ONE (17:15)
[2019-07-04] MEDS: Metoclopramide 10 MG/2 ML SDV IVPUSH ONE (17:15)
--- NOTE | 2019-07-04 18:05 | EDM.PDOC ---
Scribed by Dian Mendes 07/04/19 [id number] for Jovan Villaseñor MD ED HPI GENERAL MEDICAL PROBLEM - General Chief Complaint: Abdominal Pain Stated Complaint: RIGHT SIDE PAIN Time Seen by Provider: 07/04/19 16:14 Source of Information: Reports: Patient, RN, RN Notes Reviewed History Limitations: Reports: No Limitations - History of Present Illness INITIAL COMMENTS - FREE TEXT/NARRATIVE: Patient presents to the ER with complaint right upper quadrant pain. The patient was in ER yesterday with the same complaint, transferred to [place]. He had an ultrasound of the right upper quadrant, but left this morning AMA. He now returns stating that his pain is now better. He continues to have nausea and vomiting. Patient is very upset at the [facility] staff alleging that he was rationally profiled, accused of being an alcoholic and drug addict on the basis of being from [place]. States that both he and his mother have filed a complaint with the Administration at [facility]. Patient reports severe right upper quadrant pain that radiates to the shoulder and shoulder blade at the right upper back. He denies fevers or chills. Nothing has alleviated his pain. The pain is worse with eating. Onset: Gradual Duration: Constant Location: Reports: Other (right upper quadrant) Quality: Reports: Ache Severity: Severe Improves with: Reports: None Worsens with: Reports: None Associated Symptoms: Reports: No Other Symptoms - Related Data Allergies Allergy/AdvReac Type Severity Reaction Status Date / Time amoxicillin [Amoxicillin] Allergy Rash Verified 01/19/19 01:21 bee venom protein (honey bee) Allergy Cannot Verified 01/19/19 01:21 Remember ketorolac tromethamine Allergy Rash Verified 01/19/19 01:21 [From Toradol] promethazine HCl Allergy Hallucinati Verified 01/19/19 01:21 [From Phenergan] ons tramadol HCl [From Ultram] Allergy Rash Verified 01/19/19 01:21 Home Meds: Home Meds NK [No Known Home Meds] 0 mg PO DAILY 06/11/17 [History] Past Medical History - Past Health History Medical/Surgical History: Denies Medical/Surgical History HEENT History: Reports: None Cardiovascular History: Reports: None Respiratory History: Reports: None Gastrointestinal History: Reports: None Other Gastrointestinal History: gallbladder pain Genitourinary History: Reports: Renal Calculus, Other (See Below) Other Genitourinary History: Vascular kidney disease Musculoskeletal History: Reports: None Neurological History: Reports: None Psychiatric History: Reports: None Endocrine/Metabolic History: Reports: Obesity/BMI 30+ Hematologic History: Reports: Other (See Below) (Henoch Schonlein purpura) Immunologic History: Reports: None Oncologic (Cancer) History: Reports: None Dermatologic History: Reports: Other (See Below) - Infectious Disease History Infectious Disease History: Reports: Chicken Pox - Past Surgical History Head Surgeries/Procedures: Reports: None GI Surgical History: Reports: Appendectomy Other Male Surgeries/Procedures: Has had kidney biopsy Musculoskeletal Surgical History: Reports: Other (See Below) Other Musculoskeletal Surgeries/Procedures:: left arm Dermatological Surgical History: Reports: Other (See Below) Social & Family History - Family History Family Medical History: Noncontributory - Caffeine Use Caffeine Use: Reports: Tea - Living Situation & Occupation Living situation: Reports: Single Occupation: Employed ED ROS GENERAL - Review of Systems Review Of Systems: ROS reveals no pertinent complaints other than HPI. ED EXAM, GI/ABD - Physical Exam Exam: See Below Exam Limited By: No Limitations General Appearance: Alert, Mild Distress, Obese, Active Emesis Eyes: Bilateral: Normal Appearance (No scleral icterus), EOMI Nose: Normal Inspection Throat/Mouth: Normal Lips, Normal Voice, No Airway Compromise, Other (Dry oral mucosa) Head: Atraumatic, Normocephalic Neck: Normal Inspection Respiratory/Chest: No Respiratory Distress, Lungs Clear, Normal Breath Sounds, No Accessory Muscle Use, Chest Non-Tender Cardiovascular: Regular Rate, Rhythm GI/Abdominal Exam: Normal Bowel Sounds, Soft, Tender (RUQ tenderness). No: Guarding, Rigid, Rebound Back Exam: Normal Inspection. No: CVA Tenderness (L), CVA Tenderness (R) Extremities: Normal Inspection Neurological: Alert, Oriented, No Motor/Sensory Deficits Psychiatric: Normal Mood Skin Exam: Warm, Dry, Intact, Normal Color, No Rash. No: Ecchymosis, Jaundice, Petechiae Course - Vital Signs Last Recorded V/S: Last Vital Signs Temp 98.3 F 07/04/19 16:00 Pulse 82 07/04/19 16:00 Resp 18 07/04/19 16:00 BP 149/81 H 07/04/19 16:00 Pulse Ox 99 07/04/19 16:00 - Orders/Labs/Meds Orders: Active Orders 24 hr Category Date Time Status Peripheral IV Care [RC] . DIRECTED Care 07/04/19 16:24 Active UA RFX MARGARITA AND CULT IF INDIC [URIN] Stat Lab 07/04/19 16:24 Ordered Sodium Chloride 0.9% [Saline Flush] Med 07/04/19 16:23 Active 10 ml FLUSH ASDIRECTED PRN Peripheral IV Insertion Adult [OM.PC] Stat Oth 07/04/19 16:23 Ordered Medication Orders Sodium Chloride (Saline Flush) 10 ml FLUSH ASDIRECTED PRN PRN Reason: Keep Vein Open Last Admin: 07/04/19 16:45 Dose: 10 ml Labs: Laboratory Tests 07/04/19 07/04/19 07/04/19 Range/Units 16:41 16:41 16:41 WBC 11.0 H (5.0-10.0) 10^3/uL RBC 5.39 (4.6-6.2) 10^6/uL Hgb 15.7 (14.0-18.0) g/dL Hct 45.4 (40.0-54.0) % MCV 84.2 (80-100) fL MCH 29.1 (27.0-34.0) pg MCHC 34.6 (33.0-35.0) g/dL Plt Count 269 (150-450) 10^3/uL Neut % (Auto) 70.7 (42.2-75.2) % Lymph % (Auto) 20.5 (20.5-50.1) % [place] % (Auto) 6.2 (2-8) % Eos % (Auto) 2.3 (1.0-3.0) % Baso % (Auto) 0.3 (0.0-1.0) % Sodium 138 (135-145) mmol/L Potassium 3.7 (3.6-5.0) mmol/L Chloride 105 (101-111) mmol/L Carbon Dioxide 24.0 (21.0-31.0) mmol/L Anion Gap 12.7 BUN 11 (7-18) mg/dL Creatinine 0.9 (0.6-1.3) mg/dL Est Cr Clr Drug Dosing 134.12 mL/min Estimated GFR (MDRD) > 60 BUN/Creatinine Ratio 12.22 Glucose 93 (74-105) mg/dL Lactic Acid 0.9 (0.5-2.2) mmol/L Calcium 8.7 (8.4-10.2) mg/dl Total Bilirubin 1.1 H (0.2-1.0) mg/dL AST 26 (10-42) IU/L ALT 30 (10-60) IU/L Alkaline Phosphatase 59 (42-121) IU/L Total Protein 7.4 (6.7-8.2) g/dl Albumin 4.3 (3.2-5.5) g/dl Globulin 3.1 Albumin/Globulin Ratio 1.39 Amylase 42 (28-100) U/L Lipase 28 (22-51) U/L Meds: Medications Generic Name Dose Route Start Last Admin Trade Name Freq PRN Reason Stop Dose Admin Sodium Chloride 10 ml 07/04/19 16:23 07/04/19 16:45 Saline Flush FLUSH 10 ml ASDIRECTED PRN Administration Keep Vein Open Discontinued Medications Generic Name Dose Route Start Last Admin Trade Name Freq PRN Reason Stop Dose Admin Diphenhydramine HCl 50 mg 07/04/19 17:09 07/04/19 17:15 Benadryl IVPUSH 07/04/19 17:10 50 mg ONETIME ONE Administration Hydromorphone HCl 1 mg 07/04/19 16:28 07/04/19 16:44 Dilaudid IVPUSH 07/04/19 16:29 1 mg ONETIME ONE Administration Sodium Chloride 1,000 mls @ 999 mls/hr 07/04/19 16:28 07/04/19 16:42 Normal Saline IV 07/04/19 17:28 999 mls/hr .BOLUS ONE Administration Metoclopramide HCl 10 mg 07/04/19 17:09 07/04/19 17:15 Reglan IVPUSH 07/04/19 17:10 10 mg ONETIME ONE Administration Ondansetron HCl 4 mg 07/04/19 16:27 07/04/19 16:44 Zofran IV 07/04/19 16:28 4 mg ONETIME ONE Administration Pantoprazole Sodium 40 mg 07/04/19 16:27 07/04/19 16:44 Protonix Iv IVPUSH 07/04/19 16:28 40 mg ONETIME ONE Administration - Re-Assessments/Exams Free Text/Narrative Re-Assessment/Exam: 07/04/19 17:[address] Abd/Pelvis report and lab results from yesterday (07/03/19) and the US RUQ from [facility] dated 07/04/19. Ultrasound findings from [facility] on 07/04/19 were reviewed and revealed positive sonographic Guzman's sign. Gallbladder is normal with gallbladder wall thickness measuring 2.8mm. No gallstones or gallbladder sludge. No pericholecystic fluid. Hepatic steatosis with mild hepatomegaly. Normal bile ducts. Pancreas obscured. No obvious cause of pt's persistent RUQ pain with nausea and vomiting has been identified. Pt left [facility] AMA this morning. He was to have an EGD at [facility] in 2 days, but he has lost confidence in [facility] and will not agree to go back there. Pt would like to have a consult in [place] by Dr. Orozco next week. I can arrange a consult with Dr. Orozco, but I cannot say whether Dr. Orozco will find the pt to be a candidate for EGD or for further gallbladder evaluation at this facility or not. The pt is will to see Dr. Orozco in clinic and go from there. Departure - Departure Time of Disposition: 17:59 Disposition: Home, Self-Care 01 Condition: Fair, Undetermined Clinical Impression: Fatty liver disease, nonalcoholic Abdominal pain Qualifiers: Abdominal location: right upper quadrant Qualified Code(s): R10.11 - Right upper quadrant pain Nausea & vomiting Qualifiers: Vomiting type: unspecified Vomiting Intractability: unspecified Qualified Code( s): R11.2 - Nausea with vomiting, unspecified - Discharge Information *PRESCRIPTION DRUG MONITORING PROGRAM REVIEWED*: No *COPY OF PRESCRIPTION DRUG MONITORING REPORT IN PATIENT NICO: No Instructions: Abdominal Pain, Adult, Nausea and Vomiting, Adult, Nonalcoholic Fatty Liver Disease Diet Forms: ED Department Discharge Additional Instructions: Rx: Zofran 4mg Rx: Carafate 1g Rx: Protonix 40mg Rx: Oxycodone 10mg/325mg *Do not drive while under the influence of this medication. Call [phone] Sunday07/07/19 to confirm a surgical consultation appointment with Dr. Bruderer at this facility. - My Orders Last 24 Hours: My Active Orders 07/04/19 16:23 Sodium Chloride 0.9% [Saline Flush] 10 ml FLUSH ASDIRECTED PRN Peripheral IV Insertion Adult [OM.PC] Stat 07/04/19 16:24 Peripheral IV Care [RC] . DIRECTED UA RFX MARGARITA AND CULT IF INDIC [URIN] Stat - Assessment/Plan Last 24 Hours: My Active Orders 07/04/19 16:23 Sodium Chloride 0.9% [Saline Flush] 10 ml FLUSH ASDIRECTED PRN Peripheral IV Insertion Adult [OM.PC] Stat 07/04/19 16:24 Peripheral IV Care [RC] . DIRECTED UA RFX MARGARITA AND CULT IF INDIC [URIN] Stat I have read and agree with the documentation that has been completed regarding this visit. By signing this record, I attest that the documentation was completed in my physical presence and is an accurate record of the encounter.
== END 2019-07-04 18:00 | disposition home or self-care (01) ==
LOC: DL.ED 15:50
DX: K76.0 Fatty (change of) liver, not elsewhere classified (principal); E66.9 Obesity, unspecified; Z88.0 Allergy status to penicillin; Z88.8 Allergy status to other drugs, medicaments and biological substances; Z88.6 Allergy status to analgesic agent; Z91.030 Bee allergy status; Z68.42 Body mass index [BMI] 45.0-49.9, adult
CPT/HCPCS: 36415; 80053; 82150; 83605; 83690; 85025; 96361; 96374; 96375; 99284; C9113; J1170; J1200; J2405; J2765; J7030

== ENCOUNTER 2019-07-08 08:35 | Day surgery (SDC) | payer MEDICAID ==
[2019-07-08] MEDS ORDERED: Neostigmine Methylsulfate 10 MG/10 ML MDV IV ONE (08:36)
[2019-07-08] MEDS ORDERED: Lidocaine 2% 20 ML MDV INJECT ONE (08:36)
[2019-07-08] MEDS ORDERED: fentaNYL 250 MCG/5 ML SDV IV ONE (08:36)
[2019-07-08] MEDS ORDERED: Glycopyrrolate 0.2 MG/ML 2 ML SDV IV ONE (08:36)
[2019-07-08] MEDS ORDERED: Rocuronium 100 MG/10 ML MDV IV ONE (08:36)
[2019-07-08] MEDS ORDERED: fentaNYL 100 MCG/2 ML SDV IV ONE (08:36)
[2019-07-08] MEDS ORDERED: Dexamethasone 4 MG/ML SDV IV ONE (08:36)
[2019-07-08] MEDS ORDERED: Ondansetron 4 MG/2 ML SDV IV ONE (08:36)
[2019-07-08] MEDS ORDERED: Propofol 200 MG/20 ML SDV IV ONE (08:36)
[2019-07-08] MEDS ORDERED: Midazolam 1 MG/ML 2 ML SDV IV ONE (08:36)
[2019-07-08] MEDS ORDERED: HYDROmorphone 0.5 MG/0.5 ML Syringe IV ONE (08:36)
[2019-07-08] MEDS ORDERED: Clindamycin Phosphate 900 MG in Sodium Chloride 0.9% 100 ML IV ONE (09:00)
[2019-07-08] MEDS: Lactated Ringers 1,000 ML IV SCH ×2 (09:06→12:07)
--- NOTE | 2019-07-08 11:47 | OR ---
DATE: 07/08/2019 PREOPERATIVE DIAGNOSIS: Biliary colic. POSTOPERATIVE DIAGNOSIS: Biliary colic. PROCEDURE: Laparoscopic cholecystectomy. ANESTHESIA: General. ESTIMATED BLOOD LOSS: Minimal. SPECIMEN: Gallbladder. INDICATION FOR PROCEDURE: This 29-year-old male has symptomatic right upper quadrant postprandial pain. He does not have any stones by ultrasound or CAT scan. He has a positive Guzman sign and had somewhere in his medical history a prior ultrasound that was read as a diseased gallbladder, however, currently does not have any stones. PROCEDURE IN DETAIL: After adequate preparation, right upper quadrant 5 mm trocar was inserted into the abdomen and the abdomen insufflated. Three other trocars were placed under direct vision. Examination of the abdomen was normal. He has normal-appearing liver. It is not cirrhotic and no evidence of fatty infiltrates. Gallbladder appeared to be normal. It was typical Yung egg blue and not too distended with no thick wall. The rest of the intraabdominal exam was normal. No evidence of hernias or adhesions. The cystic triangle structures of the gallbladder were dissected free. They were triply clipped and divided. The gallbladder was then taken off the liver bed using blunt, sharp, and Bovie dissection. There was a small perforation of the gallbladder and the rest of the bile was suctioned clear. The gallbladder was put in a sterile retrieval bag and brought out through the epigastric trocar site. The right upper quadrant was then irrigated with saline and suctioned clear. Hemostasis was rechecked in the gallbladder bed and was normal. Abdomen desufflated, trocars removed, and the skin closed with Vicryl. [facility] /[id number]
[2019-07-08] MEDS ORDERED: Sodium Chloride 0.9% 10 ML Syringe FLUSH PRN ×2 (12:10→20:11)
[2019-07-08] MEDS: Acetaminophen/oxyCODONE 325-5 MG Tab PO PRN ×3 (13:37→21:33)
[2019-07-08] MEDS: Morphine 4 MG/ML Syringe IVPUSH PRN ×8 (13:37→23:11)
[2019-07-09] MEDS: Morphine 4 MG/ML Syringe IVPUSH PRN ×4 (00:30→07:38)
[2019-07-09] MEDS: Acetaminophen/oxyCODONE 325-5 MG Tab PO PRN ×2 (02:46→07:38)
[2019-07-09 08:03] VITALS: BP 117/59; PULSE 64
[2019-07-09] MEDS ORDERED: Acetaminophen/oxyCODONE 325-5 MG Tab PO ONE (09:35)
== END 2019-07-09 10:05 | disposition home or self-care (01) ==
LOC: DL.SDS 08:35 → EDSTATUS 10:30 → DL.MS 12:08 → DL.SDS 07-09 10:05
PROVIDERS: ATTEND Surgery
DX: K80.50 Calculus of bile duct without cholangitis or cholecystitis without obstruction (principal); K82.8 Other specified diseases of gallbladder; K82.4 Cholesterolosis of gallbladder; E66.01 Morbid (severe) obesity due to excess calories; Z88.0 Allergy status to penicillin; Z88.5 Allergy status to narcotic agent; Z91.030 Bee allergy status; Z68.42 Body mass index [BMI] 45.0-49.9, adult
CPT/HCPCS: 47562; A9270; J1100; J1170; J2001; J2250; J2270; J2405; J2704; J2710; J3010; J3490; J7050; J7120

== ENCOUNTER 2019-07-30 19:43 | Emergency (ER) | payer MEDICAID ==
[2019-07-30 19:54] VITALS: BP 142/89; PULSE 100
[2019-07-30] MEDS ORDERED: Ondansetron 4 MG Tab.DIS PO ONE (20:10)
[2019-07-30] MEDS ORDERED: Sodium Chloride 0.9% 1,000 ML IV ONE (20:31)
[2019-07-30] MEDS ORDERED: HYDROmorphone 1 MG/ML Syringe SUBCUT ONE (20:31)
[2019-07-30] MEDS ORDERED: HYDROmorphone 1 MG/ML Syringe IVPUSH ONE ×2 (20:45→21:12)
[2019-07-30 21:05] LABS: ANION GAP 11.5; CHLORIDE,CL 107 mmol/L (101-111); SODIUM,NA 141 mmol/L (135-145)
--- NOTE | 2019-07-30 21:31 | EDM.PDOC ---
ED HPI GENERAL MEDICAL PROBLEM - General Chief Complaint: Abdominal Pain Stated Complaint: NOT FEELING WELL Source of Information: Reports: Patient, Family, RN History Limitations: Reports: No Limitations - History of Present Illness INITIAL COMMENTS - FREE TEXT/NARRATIVE: ED with mother, Patient and mother report enroute to [place] from [facility]. Patient states he is to be admitted at [facility] for his HSP. States has been in hospital for over 2 weeks following flare after GB surgery done on 07/08 at [facility]. Paitent c/o pain and nausea not relieved with oxycodone. Pain to right abdomen radiating to flank. Hx given was to be transferred for admission but family there so planned to go with family instead of ambulance. Discharge papers are from 07/29. Small note attached noted Rheumatology appointment on 08/05. Patient has been seen at numerous facilities. Has been seen through Urology and [facility] at [place], [place], and [facility]. Patient initially stated did not want or need workup but then allowed labs to be done. Treatments SENIOR QUALITY ASSURANCE SPECIALIST: Reports: Other (see below) Other Treatments SENIOR QUALITY ASSURANCE SPECIALIST: oxycodone Right Upper Abdomen Pain Score (Numeric/FACES): 9 Abdominal Pain Score (Numeric/FACES): 9 - Related Data Allergies Allergy/AdvReac Type Severity Reaction Status Date / Time amoxicillin [Amoxicillin] Allergy Rash Verified 07/08/19 09:04 bee venom protein (honey bee) Allergy Cannot Verified 07/08/19 09:04 Remember ketorolac tromethamine Allergy Rash Verified 07/08/19 09:04 [From Toradol] metoclopramide [From Reglan] Allergy Agitation Verified 07/30/19 21:22 promethazine HCl Allergy Hallucinati Verified 07/08/19 09:04 [From Phenergan] ons tramadol HCl [From Ultram] Allergy Rash Verified 07/08/19 09:04 Home Meds: Home Meds Ondansetron [Zofran] 4 mg PO Q6H PRN 07/07/19 [History] oxyCODONE HCl/Acetaminophen [Oxycodone-Acetaminophen 10-300] 1 tab PO Q6H PRN [History] Past Medical History - Past Health History Medical/Surgical History: Denies Medical/Surgical History HEENT History: Reports: None Cardiovascular History: Reports: None Respiratory History: Reports: None Gastrointestinal History: Reports: Gastritis, GERD, Other (See Below) Other Gastrointestinal History: gallbladder pain Genitourinary History: Reports: Renal Calculus, Other (See Below) Other Genitourinary History: Vascular kidney disease Musculoskeletal History: Reports: None Neurological History: Reports: None Psychiatric History: Reports: None Endocrine/Metabolic History: Reports: Obesity/BMI 30+ Hematologic History: Reports: None Immunologic History: Reports: None Oncologic (Cancer) History: Reports: None Dermatologic History: Reports: None - Infectious Disease History Infectious Disease History: Reports: Chicken Pox - Past Surgical History Head Surgeries/Procedures: Reports: None HEENT Surgical History: Reports: None Cardiovascular Surgical History: Reports: None GI Surgical History: Reports: Appendectomy, Cholecystectomy Male Surgical History: Reports: Circumcision Other Male Surgeries/Procedures: Has had kidney biopsy Musculoskeletal Surgical History: Reports: Other (See Below) Other Musculoskeletal Surgeries/Procedures:: left arm Social & Family History - Family History Family Medical History: Noncontributory - Tobacco Use Smoking Status *Q: Never Smoker - Caffeine Use Caffeine Use: Reports: Tea Caffeine Use Comment: 32 oz daily - Recreational Drug Use Recreational Drug Use: No - Living Situation & Occupation Living situation: Reports: Single Occupation: Employed ED ROS GENERAL - Review of Systems Constitutional: Reports: Chills, Weakness, Fatigue HEENT: Reports: No Symptoms Respiratory: Reports: No Symptoms Cardiovascular: Reports: Lightheadedness Endocrine: Reports: Fatigue GI/Abdominal: Reports: Abdominal Pain, Hematemesis (hx 3 weeks ago had GI work up ) : Denies: Hematuria (non at present) Course - Vital Signs Last Recorded V/S: Last Vital Signs Temp 97.1 F 07/30/19 19:53 Pulse 100 07/30/19 19:53 Resp 18 07/30/19 19:53 BP 142/89 H 07/30/19 19:53 Pulse Ox 99 07/30/19 19:53 - Orders/Labs/Meds Orders: Active Orders 24 hr Category Date Time Status Sodium Chloride 0.9% [Normal Saline] 1,000 ml Med 07/30/19 20:31 Active IV .BOLUS Medication Orders Sodium Chloride (Normal Saline) 1,000 mls @ 150 mls/hr IV .BOLUS ONE Stop: 07/31/19 03:10 Last Admin: 07/30/19 20:43 Dose: 150 mls/hr Labs: Laboratory Tests 07/30/19 07/30/19 07/30/19 Range/Units 20:39 20:39 20:39 WBC 15.5 H (5.0-10.0) 10^3/uL RBC 5.22 (4.6-6.2) 10^6/uL Hgb 15.5 (14.0-18.0) g/dL Hct 43.2 (40.0-54.0) % MCV 82.8 (80-100) fL MCH 29.7 (27.0-34.0) pg MCHC 35.9 H (33.0-35.0) g/dL Plt Count 265 (150-450) 10^3/uL Neut % (Auto) 65.9 (42.2-75.2) % Lymph % (Auto) 24.0 (20.5-50.1) % Elliott % (Auto) 8.5 H (2-8) % Eos % (Auto) 1.5 (1.0-3.0) % Baso % (Auto) 0.1 (0.0-1.0) % Add Manual Diff Yes Neutrophils % (Manual) 57 (42-75) % Band Neutrophils % 1 % Lymphocytes % (Manual) 32 (20-50) % Monocytes % (Manual) 9 H (2-8) % Eosinophils % (Manual) 1 (1-3) % Sodium 141 (135-145) mmol/L Potassium 3.5 L (3.6-5.0) mmol/L Chloride 107 (101-111) mmol/L Carbon Dioxide 26.0 (21.0-31.0) mmol/L Anion Gap 11.5 BUN 21 H (7-18) mg/dL Creatinine 1.0 (0.6-1.3) mg/dL Est Cr Clr Drug Dosing 124.29 mL/min Estimated GFR (MDRD) > 60 BUN/Creatinine Ratio 21.00 Glucose 100 (74-105) mg/dL Calcium 8.3 L (8.4-10.2) mg/dl Total Bilirubin 0.6 (0.2-1.0) mg/dL AST 18 (10-42) IU/L ALT 29 (10-60) IU/L Alkaline Phosphatase 67 (42-121) IU/L C-Reactive Protein 1.2 (0.0-1.3) mg/dL Total Protein 6.7 (6.7-8.2) g/dl Albumin 3.9 (3.2-5.5) g/dl Globulin 2.8 Albumin/Globulin Ratio 1.39 Amylase 35 (28-100) U/L Meds: Medications Generic Name Dose Route Start Last Admin Trade Name Freq PRN Reason Stop Dose Admin Sodium Chloride 1,000 mls @ 150 mls/hr 07/30/19 20:31 07/30/19 20:43 Normal Saline IV 07/31/19 03:10 150 mls/hr .BOLUS ONE Administration Discontinued Medications Generic Name Dose Route Start Last Admin Trade Name Freq PRN Reason Stop Dose Admin Hydromorphone HCl 1 mg 07/30/19 20:31 07/30/19 20:44 Dilaudid SUBCUT 07/30/19 20:32 Not Given ONETIME ONE Hydromorphone HCl 1 mg 07/30/19 20:45 07/30/19 20:45 Dilaudid IVPUSH 07/30/19 20:46 1 mg ONETIME ONE Administration Hydromorphone HCl 1 mg 07/30/19 21:12 07/30/19 21:17 Dilaudid IVPUSH 07/30/19 21:13 1 mg ONETIME ONE Administration Ondansetron HCl 4 mg 07/30/19 20:10 07/30/19 20:13 Zofran Odt PO 07/30/19 20:11 4 mg ONETIME ONE Administration - Re-Assessments/Exams Free Text/Narrative Re-Assessment/Exam: 07/30/19 21:35 Dr Campos [facility] ED accepting patient for tx and further evaluation. No documentation or information apparently found through [facility] that patient was to be a direct admit. Patient and family informed that he would be evaluated but he is not a confirmed admission. Departure - Departure Time of Disposition: 21:31 Disposition: DC/Tfer to Acute Hospital 02 Condition: Good Clinical Impression: History of Henoch-Schonlein purpura, Nausea Abdominal pain Qualifiers: Abdominal location: right upper quadrant Qualified Code(s): R10.11 - Right upper quadrant pain - Discharge Information *PRESCRIPTION DRUG MONITORING PROGRAM REVIEWED*: No *COPY OF PRESCRIPTION DRUG MONITORING REPORT IN PATIENT NICO: No - My Orders Last 24 Hours: My Active Orders 07/30/19 20:31 Sodium Chloride 0.9% [Normal Saline] 1,000 ml IV .BOLUS - Assessment/Plan Last 24 Hours: My Active Orders 07/30/19 20:31 Sodium Chloride 0.9% [Normal Saline] 1,000 ml IV .BOLUS
--- NOTE | 2019-07-30 21:56 | EDM.PDOC ---
ED HPI GENERAL MEDICAL PROBLEM - General Chief Complaint: Abdominal Pain Stated Complaint: NOT FEELING WELL Time Seen by Provider: 07/30/19 19:55 Source of Information: Reports: Patient, Family, RN History Limitations: Reports: No Limitations - History of Present Illness INITIAL COMMENTS - FREE TEXT/NARRATIVE: ED with mother, Patient and mother report enroute to [place] from [facility]. Patient states he is to be admitted at [facility] for his HSP. States has been in hospital for over 2 weeks following flare after GB surgery done on 07/08 at [facility]. Paitent c/o pain and nausea not relieved with oxycodone. Pain to right abdomen radiating to flank. Hx given was to be transferred for admission but family there so planned to go with family instead of ambulance. Discharge papers are from 07/29. Small note attached noted Rheumatology appointment on 08/05. Patient has been seen at numerous facilities. Has been seen through Urology and [facility] at [place], [place], and [facility]. Patient initially stated did not want or need workup but then allowed labs to be done. Treatments FOXER: Reports: Other (see below) Other Treatments FOXER: oxycodone Right Upper Abdomen Pain Score (Numeric/FACES): 9 Abdominal Pain Score (Numeric/FACES): 9 - Related Data Allergies Allergy/AdvReac Type Severity Reaction Status Date / Time amoxicillin [Amoxicillin] Allergy Rash Verified 07/08/19 09:04 bee venom protein (honey bee) Allergy Cannot Verified 07/08/19 09:04 Remember ketorolac tromethamine Allergy Rash Verified 07/08/19 09:04 [From Toradol] metoclopramide [From Reglan] Allergy Agitation Verified 07/30/19 21:22 promethazine HCl Allergy Hallucinati Verified 07/08/19 09:04 [From Phenergan] ons tramadol HCl [From Ultram] Allergy Rash Verified 07/08/19 09:04 Home Meds: Home Meds Ondansetron [Zofran] 4 mg PO Q6H PRN 07/07/19 [History] oxyCODONE HCl/Acetaminophen [Oxycodone-Acetaminophen 10-300] 1 tab PO Q6H PRN [History] Past Medical History - Past Health History Medical/Surgical History: Denies Medical/Surgical History HEENT History: Reports: None Cardiovascular History: Reports: None Respiratory History: Reports: None Gastrointestinal History: Reports: Gastritis, GERD, Other (See Below) Other Gastrointestinal History: gallbladder pain Genitourinary History: Reports: Renal Calculus, Other (See Below) Other Genitourinary History: Vascular kidney disease Musculoskeletal History: Reports: None Neurological History: Reports: None Psychiatric History: Reports: None Endocrine/Metabolic History: Reports: Obesity/BMI 30+ Hematologic History: Reports: None Immunologic History: Reports: None Oncologic (Cancer) History: Reports: None Dermatologic History: Reports: None - Infectious Disease History Infectious Disease History: Reports: Chicken Pox - Past Surgical History Head Surgeries/Procedures: Reports: None HEENT Surgical History: Reports: None Cardiovascular Surgical History: Reports: None GI Surgical History: Reports: Appendectomy, Cholecystectomy Male Surgical History: Reports: Circumcision Other Male Surgeries/Procedures: Has had kidney biopsy Musculoskeletal Surgical History: Reports: Other (See Below) Other Musculoskeletal Surgeries/Procedures:: left arm Social & Family History - Family History Family Medical History: Noncontributory - Tobacco Use Smoking Status *Q: Never Smoker - Caffeine Use Caffeine Use: Reports: Tea Caffeine Use Comment: 32 oz daily - Recreational Drug Use Recreational Drug Use: No - Living Situation & Occupation Living situation: Reports: Single Occupation: Employed ED ROS GENERAL - Review of Systems Review Of Systems: Comprehensive ROS is negative, except as noted in HPI. ED EXAM, RENAL/ - Physical Exam Exam: See Below Exam Limited By: No Limitations General Appearance: Alert, Moderate Distress, Obese Eye Exam: Bilateral Eye: EOMI Ears: Normal External Exam Nose: Normal Inspection Throat/Mouth: Normal Inspection, Normal Voice Head: Atraumatic, Normocephalic Neck: Normal Inspection Respiratory/Chest: No Respiratory Distress, Lungs Clear, Normal Breath Sounds Cardiovascular: Normal Peripheral Pulses, Regular Rate, Rhythm, No Rub GI/Abdominal: Normal Bowel Sounds, Soft, Tender (right upper lower flank) Back Exam: Full Range of Motion Extremities: Normal Inspection, Normal Range of Motion Neurological: Alert, Oriented, Normal Cognition Skin Exam: Warm, Dry, Intact, Normal Color Course - Vital Signs Last Recorded V/S: Last Vital Signs Temp 97.1 F 07/30/19 19:53 Pulse 100 07/30/19 19:53 Resp 18 07/30/19 19:53 BP 142/89 H 07/30/19 19:53 Pulse Ox 99 07/30/19 19:53 - Orders/Labs/Meds Labs: Laboratory Tests 07/30/19 07/30/19 07/30/19 Range/Units 20:39 20:39 20:39 WBC 15.5 H (5.0-10.0) 10^3/uL RBC 5.22 (4.6-6.2) 10^6/uL Hgb 15.5 (14.0-18.0) g/dL Hct 43.2 (40.0-54.0) % MCV 82.8 (80-100) fL MCH 29.7 (27.0-34.0) pg MCHC 35.9 H (33.0-35.0) g/dL Plt Count 265 (150-450) 10^3/uL Neut % (Auto) 65.9 (42.2-75.2) % Lymph % (Auto) 24.0 (20.5-50.1) % Graham % (Auto) 8.5 H (2-8) % Eos % (Auto) 1.5 (1.0-3.0) % Baso % (Auto) 0.1 (0.0-1.0) % Add Manual Diff Yes Neutrophils % (Manual) 57 (42-75) % Band Neutrophils % 1 % Lymphocytes % (Manual) 32 (20-50) % Monocytes % (Manual) 9 H (2-8) % Eosinophils % (Manual) 1 (1-3) % Sodium 141 (135-145) mmol/L Potassium 3.5 L (3.6-5.0) mmol/L Chloride 107 (101-111) mmol/L Carbon Dioxide 26.0 (21.0-31.0) mmol/L Anion Gap 11.5 BUN 21 H (7-18) mg/dL Creatinine 1.0 (0.6-1.3) mg/dL Est Cr Clr Drug Dosing 124.29 mL/min Estimated GFR (MDRD) > 60 BUN/Creatinine Ratio 21.00 Glucose 100 (74-105) mg/dL Calcium 8.3 L (8.4-10.2) mg/dl Total Bilirubin 0.6 (0.2-1.0) mg/dL AST 18 (10-42) IU/L ALT 29 (10-60) IU/L Alkaline Phosphatase 67 (42-121) IU/L C-Reactive Protein 1.2 (0.0-1.3) mg/dL Total Protein 6.7 (6.7-8.2) g/dl Albumin 3.9 (3.2-5.5) g/dl Globulin 2.8 Albumin/Globulin Ratio 1.39 Amylase 35 (28-100) U/L Meds: Medications Discontinued Medications Generic Name Dose Route Start Last Admin Trade Name Freq PRN Reason Stop Dose Admin Hydromorphone HCl 1 mg 07/30/19 20:31 07/30/19 20:44 Dilaudid SUBCUT 07/30/19 20:32 Not Given ONETIME ONE Hydromorphone HCl 1 mg 07/30/19 20:45 07/30/19 20:45 Dilaudid IVPUSH 07/30/19 20:46 1 mg ONETIME ONE Administration Hydromorphone HCl 1 mg 07/30/19 21:12 07/30/19 21:17 Dilaudid IVPUSH 07/30/19 21:13 1 mg ONETIME ONE Administration Sodium Chloride 1,000 mls @ 150 mls/hr 07/30/19 20:31 07/30/19 20:43 Normal Saline IV 07/31/19 03:10 150 mls/hr .BOLUS ONE Administration Ondansetron HCl 4 mg 07/30/19 20:10 07/30/19 20:13 Zofran Odt PO 07/30/19 20:11 4 mg ONETIME ONE Administration - Re-Assessments/Exams Free Text/Narrative Re-Assessment/Exam: TC Dr Campos accepting patient for further evaluation. [facility] One call has no info on file regarding patient reported to be transferred there. Patient and mother aware. Patient will be evaluated but can not guarantee he will be admitted if no clinical findings indicating admission. Tx via [facility]. Departure - Departure Time of Disposition: 22:15 Disposition: DC/Tfer to Acute Hospital 02 Condition: Good Clinical Impression: History of Henoch-Schonlein purpura, Nausea Abdominal pain Qualifiers: Abdominal location: right upper quadrant Qualified Code(s): R10.11 - Right upper quadrant pain - Discharge Information *PRESCRIPTION DRUG MONITORING PROGRAM REVIEWED*: No *COPY OF PRESCRIPTION DRUG MONITORING REPORT IN PATIENT NICO: No Referrals: Fatoumata Faria MD [Primary Care Provider] - Forms: ED Department Discharge
== END 2019-07-30 21:44 ==
LOC: DL.ED 19:43
DX: R10.11 Right upper quadrant pain (principal); R11.0 Nausea; Z87.2 Personal history of diseases of the skin and subcutaneous tissue; Z88.6 Allergy status to analgesic agent; Z88.0 Allergy status to penicillin; Z91.030 Bee allergy status; Z88.8 Allergy status to other drugs, medicaments and biological substances; E66.9 Obesity, unspecified; Z68.42 Body mass index [BMI] 45.0-49.9, adult
CPT/HCPCS: 36415; 80053; 82150; 85025; 86140; 96361; 96374; 96376; 99284; A9270; J1170; J7030

== ENCOUNTER 2019-08-05 10:37 | Emergency (ER) | payer MEDICAID ==
[2019-08-05 10:57] VITALS: BP 125/68; PULSE 99
[2019-08-05 11:30] LABS: ANION GAP 13.1; CHLORIDE,CL 105 mmol/L (101-111); SODIUM,NA 138 mmol/L (135-145)
--- NOTE | 2019-08-05 11:40 | EDM.PDOC ---
ED HPI GENERAL MEDICAL PROBLEM - General Stated Complaint: PASSING BLOOD Time Seen by Provider: 08/05/19 11:00 Source of Information: Reports: Patient History Limitations: Reports: No Limitations - History of Present Illness INITIAL COMMENTS - FREE TEXT/NARRATIVE: This 29 yo male patient reports to the ED due to having bloody stools and bloody urine. The patient reports he has been dealing with HSP, but now has also noticed blood in his stool. The patient reports he has been in and out of hospitals since he had his gallbladder removed here at [facility]. The patient reports he had a lengthy stay at and was supposed to be transferred to [facility] in [place]. The patient reports he was supposed to have an appointment today at a Rheumatology Clinic in [place] at 11:45. The patient reports he stopped out at the [facility] to get a referral form. After reporting blood in his urine and blood in his stool, the patient was advised to come to the ED here for further evaluation and management. After speaking with the patient, a call was placed to regarding the patient's previous stay. The patient was seen in from 06/28/19 - 07/29/19. At the end of the stay, the patient was discharged after the patient had had a GI consult and a nephrology consult. Apparently, the patient refused cystocopy while in their facility. The patient was instructed to follow-up with Rheumatology in [place]. The patient was supposed to see Dr. Lindsey in Rheumatology today at 11:45. The patient reports he did call the Rheumatology Clinic and will need to reschedule his appointment. After discharge from , the patient came to [place] to be seen in the ED on 07/30/19. The patient was sent from [facility] in [place] to [facility]. A call was placed to [facility] regarding the course of the patient's visit. A message was taken and we should receive a return phone call. Duration: Day(s):, Constant Location: Reports: Abdomen (right sided abdominal pain) Quality: Reports: Ache Severity: Severe Worsens with: Reports: None Context: Reports: Other Associated Symptoms: Reports: No Other Symptoms Right Abdomen Pain Score (Numeric/FACES): 8 - Related Data Allergies Allergy/AdvReac Type Severity Reaction Status Date / Time amoxicillin [Amoxicillin] Allergy Rash Verified 08/05/19 10:57 bee venom protein (honey bee) Allergy Cannot Verified 08/05/19 10:57 Remember ketorolac tromethamine Allergy Rash Verified 08/05/19 10:57 [From Toradol] metoclopramide [From Reglan] Allergy Agitation Verified 08/05/19 10:57 promethazine HCl Allergy Hallucinati Verified 08/05/19 10:57 [From Phenergan] ons tramadol HCl [From Ultram] Allergy Rash Verified 08/05/19 10:57 Home Meds: Home Meds Ondansetron [Zofran] 4 mg PO Q6H PRN 07/07/19 [History] predniSONE [Prednisone] 80 mg PO BID 08/05/19 [History] Past Medical History - Past Health History Medical/Surgical History: Denies Medical/Surgical History HEENT History: Reports: None Cardiovascular History: Reports: None Respiratory History: Reports: None Gastrointestinal History: Reports: Gastritis, GERD, Other (See Below) Other Gastrointestinal History: gallbladder pain Genitourinary History: Reports: Renal Calculus, Other (See Below) Other Genitourinary History: Vascular kidney disease Musculoskeletal History: Reports: None Neurological History: Reports: None Psychiatric History: Reports: None Endocrine/Metabolic History: Reports: Obesity/BMI 30+ Hematologic History: Reports: None Immunologic History: Reports: None Oncologic (Cancer) History: Reports: None Dermatologic History: Reports: None - Infectious Disease History Infectious Disease History: Reports: Chicken Pox - Past Surgical History Head Surgeries/Procedures: Reports: None HEENT Surgical History: Reports: None Cardiovascular Surgical History: Reports: None GI Surgical History: Reports: Appendectomy, Cholecystectomy Male Surgical History: Reports: Circumcision Other Male Surgeries/Procedures: Has had kidney biopsy Musculoskeletal Surgical History: Reports: Other (See Below) Other Musculoskeletal Surgeries/Procedures:: left arm Social & Family History - Family History Family Medical History: Noncontributory - Tobacco Use Smoking Status *Q: Never Smoker - Caffeine Use Caffeine Use: Reports: Tea Caffeine Use Comment: 32 oz daily - Recreational Drug Use Recreational Drug Use: No - Living Situation & Occupation Living situation: Reports: Single Occupation: Employed ED ROS GENERAL - Review of Systems Review Of Systems: Comprehensive ROS is negative, except as noted in HPI. ED EXAM, GENERAL - Physical Exam Exam: See Below Exam Limited By: No Limitations General Appearance: Alert, WD/WN, Moderate Distress Eye Exam: Bilateral Eye: EOMI, Normal Inspection, PERRL Ears: Normal External Exam, Normal Canal, Hearing Grossly Normal, Normal TMs Nose: Normal Inspection, Normal Mucosa, No Blood Throat/Mouth: Normal Inspection, Normal Lips, Normal Teeth, Normal Gums, Normal Oropharynx, Normal Voice, No Airway Compromise Head: Atraumatic, Normocephalic Neck: Normal Inspection, Supple, Non-Tender, Full Range of Motion Respiratory/Chest: No Respiratory Distress, Lungs Clear, Normal Breath Sounds, No Accessory Muscle Use, Chest Non-Tender Cardiovascular: Normal Peripheral Pulses, Regular Rate, Rhythm, No Edema, No Gallop, No JVD, No Murmur, No Rub GI/Abdominal: Normal Bowel Sounds, Tender (right sided) (Male) Exam: Deferred Rectal (Males) Exam: Deferred Back Exam: Normal Inspection, Full Range of Motion, NT Extremities: Normal Inspection, Normal Range of Motion, Non-Tender, Normal Capillary Refill, No Pedal Edema Neurological: Alert, Oriented, CN II-XII Intact, Normal Cognition, Normal Gait, Normal Reflexes, No Motor/Sensory Deficits Psychiatric: Normal Affect, Normal Mood Skin Exam: Warm, Dry, Intact, Normal Color, No Rash Lymphatic: No Adenopathy Course - Vital Signs Last Recorded V/S: Last Vital Signs Temp 36.6 C 08/05/19 10:55 Pulse 99 08/05/19 10:55 Resp 18 08/05/19 10:55 BP 125/68 08/05/19 10:55 Pulse Ox 98 08/05/19 10:55 - Orders/Labs/Meds Labs: Laboratory Tests 08/05/19 08/05/19 08/05/19 Range/Units 10:59 10:59 11:13 WBC 11.8 H (5.0-10.0) 10^3/uL RBC 5.31 (4.6-6.2) 10^6/uL Hgb 15.7 (14.0-18.0) g/dL Hct 45.1 (40.0-54.0) % MCV 84.9 (80-100) fL MCH 29.6 (27.0-34.0) pg MCHC 34.8 (33.0-35.0) g/dL Plt Count 240 (150-450) 10^3/uL Neut % (Auto) 75.2 (42.2-75.2) % Lymph % (Auto) 17.0 L (20.5-50.1) % [place] % (Auto) 5.3 (2-8) % Eos % (Auto) 2.2 (1.0-3.0) % Baso % (Auto) 0.3 (0.0-1.0) % Sodium 138 (135-145) mmol/L Potassium 4.1 (3.6-5.0) mmol/L Chloride 105 (101-111) mmol/L Carbon Dioxide 24.0 (21.0-31.0) mmol/L Anion Gap 13.1 BUN 14 (7-18) mg/dL Creatinine 0.8 (0.6-1.3) mg/dL Est Cr Clr Drug Dosing 155.36 mL/min Estimated GFR (MDRD) > 60 BUN/Creatinine Ratio 17.50 Glucose 125 H (74-105) mg/dL Calcium 9.0 (8.4-10.2) mg/dl Total Bilirubin 1.1 H (0.2-1.0) mg/dL AST 18 (10-42) IU/L ALT 29 (10-60) IU/L Alkaline Phosphatase 62 (42-121) IU/L Total Protein 7.2 (6.7-8.2) g/dl Albumin 4.3 (3.2-5.5) g/dl Globulin 2.9 Albumin/Globulin Ratio 1.48 Urine Color Red (YELLOW) Urine Appearance Slightly cloudy (CLEAR) Urine pH 7.0 (5.0-9.0) Ur Specific [place] 1.020 (1.005-1.030) Urine Protein 30 H (NEGATIVE) Urine Glucose (UA) Negative (NEGATIVE) Urine Ketones Negative (NEGATIVE) Urine Occult Blood Large H (NEGATIVE) Urine Nitrite Negative (NEGATIVE) Urine Bilirubin Negative (NEGATIVE) Urine Urobilinogen 0.2 (0.2-1.0) mg/dL Ur Leukocyte Esterase Negative (NEGATIVE) Urine RBC >100 H /HPF Urine WBC Not seen (0-5/HPF) /HPF Ur Epithelial Cells Few (NOT SEEN) /HPF Urine Bacteria Rare (0-FEW/HPF) /HPF Urine Mucus Few H (NOT SEEN) /LPF Urine Opiates Screen (NEGATIVE) Ur Oxycodone Screen (NEGATIVE) Urine Methadone Screen (NEGATIVE) Ur Barbiturates Screen (NEGATIVE) U Tricyclic Antidepress (NEGATIVE) Ur Phencyclidine Scrn (NEGATIVE) Ur Amphetamine Screen (NEGATIVE) U Methamphetamines Scrn (NEGATIVE) Urine MDMA Screen (NEGATIVE) U Benzodiazepines Scrn (NEGATIVE) Urine Cocaine Screen (NEGATIVE) U Marijuana (THC) Screen (NEGATIVE) 08/05/19 Range/Units 11:13 WBC (5.0-10.0) 10^3/uL RBC (4.6-6.2) 10^6/uL Hgb (14.0-18.0) g/dL Hct (40.0-54.0) % MCV (80-100) fL MCH (27.0-34.0) pg MCHC (33.0-35.0) g/dL Plt Count (150-450) 10^3/uL Neut % (Auto) (42.2-75.2) % Lymph % (Auto) (20.5-50.1) % [place] % (Auto) (2-8) % Eos % (Auto) (1.0-3.0) % Baso % (Auto) (0.0-1.0) % Sodium (135-145) mmol/L Potassium (3.6-5.0) mmol/L Chloride (101-111) mmol/L Carbon Dioxide (21.0-31.0) mmol/L Anion Gap BUN (7-18) mg/dL Creatinine (0.6-1.3) mg/dL Est Cr Clr Drug Dosing mL/min Estimated GFR (MDRD) BUN/Creatinine Ratio Glucose (74-105) mg/dL Calcium (8.4-10.2) mg/dl Total Bilirubin (0.2-1.0) mg/dL AST (10-42) IU/L ALT (10-60) IU/L Alkaline Phosphatase (42-121) IU/L Total Protein (6.7-8.2) g/dl Albumin (3.2-5.5) g/dl Globulin Albumin/Globulin Ratio Urine Color (YELLOW) Urine Appearance (CLEAR) Urine pH (5.0-9.0) Ur Specific [place] (1.005-1.030) Urine Protein (NEGATIVE) Urine Glucose (UA) (NEGATIVE) Urine Ketones (NEGATIVE) Urine Occult Blood (NEGATIVE) Urine Nitrite (NEGATIVE) Urine Bilirubin (NEGATIVE) Urine Urobilinogen (0.2-1.0) mg/dL Ur Leukocyte Esterase (NEGATIVE) Urine RBC /HPF Urine WBC (0-5/HPF) /HPF Ur Epithelial Cells (NOT SEEN) /HPF Urine Bacteria (0-FEW/HPF) /HPF Urine Mucus (NOT SEEN) /LPF Urine Opiates Screen Positive H (NEGATIVE) Ur Oxycodone Screen Negative (NEGATIVE) Urine Methadone Screen Negative (NEGATIVE) Ur Barbiturates Screen Negative (NEGATIVE) U Tricyclic Antidepress Negative (NEGATIVE) Ur Phencyclidine Scrn Negative (NEGATIVE) Ur Amphetamine Screen Negative (NEGATIVE) U Methamphetamines Scrn Negative (NEGATIVE) Urine MDMA Screen Negative (NEGATIVE) U Benzodiazepines Scrn Negative (NEGATIVE) Urine Cocaine Screen Negative (NEGATIVE) U Marijuana (THC) Screen Positive H (NEGATIVE) - Re-Assessments/Exams Free Text/Narrative Re-Assessment/Exam: 08/05/19 12:22 The patient reports he through his pain medications in the garbage because they were "too strong" for him. Departure - Departure Time of Disposition: 12:21 Disposition: Home, Self-Care 01 Condition: Fair Clinical Impression: Hematuria Qualifiers: Hematuria type: unspecified type Qualified Code(s): R31.9 - Hematuria, unspecified - Discharge Information *PRESCRIPTION DRUG MONITORING PROGRAM REVIEWED*: Yes *COPY OF PRESCRIPTION DRUG MONITORING REPORT IN PATIENT NICO: Yes Instructions: Hematuria, Adult Forms: ED Department Discharge Care Plan Goals: The patient was advised of the examination and lab results during the visit. The patient was encouraged to follow-up with his primary care facility to coordinate his care and follow-up appointments. If the patient has any additional symptoms or concerns, the patient should either return to the emergency department or visit his primary care facility. Sepsis Event Note - Evaluation Sepsis Screening Result: No Definite Risk - Focused Exam Vital Signs: Vital Signs Temp Pulse Resp BP Pulse Ox 08/05/19 10:55 36.6 C 99 18 125/68 98 Date Exam was Performed: 08/05/19 Time Exam was Performed: 12:21
== END 2019-08-05 12:30 | disposition home or self-care (01) ==
LOC: DL.ED 10:37
DX: R31.9 Hematuria, unspecified (principal); E66.9 Obesity, unspecified; Z68.42 Body mass index [BMI] 45.0-49.9, adult; Z88.1 Allergy status to other antibiotic agents; Z88.8 Allergy status to other drugs, medicaments and biological substances; Z88.5 Allergy status to narcotic agent; Z91.030 Bee allergy status; Z79.899 Other long term (current) drug therapy
CPT/HCPCS: 36415; 80053; 80305-QW; 81001; 82272; 85025; 99284

== ENCOUNTER 2019-08-29 10:35 | Emergency (ER) | payer MEDICAID ==
--- NOTE | 2019-08-29 10:37 | EDM.PDOC ---
ED HPI GENERAL MEDICAL PROBLEM - General Chief Complaint: Genitourinary Problem Stated Complaint: AMBULANCE Time Seen by Provider: 08/29/19 10:36 Source of Information: Reports: Patient, EMS, Old Records, RN, RN Notes Reviewed History Limitations: Reports: No Limitations - History of Present Illness INITIAL COMMENTS - FREE TEXT/NARRATIVE: Pt arrives from home by [facility] with c/o gross hematuria and back/flank pain. 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 cholecystectomy in June [address] [place] [address] Orozco. Pt reports several clinic, ER, and hospitalizations in [facility], and [place] since June. He reports being transferred from here to [facility] in [place] on 07/30/19, but records indicate he left [facility]. He was seen again here on 08/05/19. Pt rates the pain 06/05, and the right flank hurts more than the left. He received Fentanyl 100mcg IVP from the paramedics [employer], and states it did nothing for his pain. He denies fever, chills, diarrhea, or vomiting. Admits to nausea. Pt states he has appointments scheduled for nephrology and rheumatology 2 weeks from now in [place]. Onset: Today Onset Date: 08/29/19 Onset Time: 01:00 Duration: Constant, Getting Worse Location: Reports: Back Quality: Reports: Ache, Same as Previous Episode Severity: Severe Improves with: Reports: None Worsens with: Reports: None Associated Symptoms: Reports: No Other Symptoms Treatments [employer] REPAIRER: Reports: IV/IO, Other Medication(s) Right Flank Pain Score (Numeric/FACES): 9 - Related Data Allergies Allergy/AdvReac Type Severity Reaction Status Date / Time amoxicillin [Amoxicillin] Allergy Rash Verified 08/29/19 10:49 bee venom protein (honey bee) Allergy Cannot Verified 08/29/19 10:49 Remember ketorolac tromethamine Allergy Rash Verified 08/29/19 10:49 [From Toradol] metoclopramide [From Reglan] Allergy Agitation Verified 08/29/19 10:49 promethazine HCl Allergy Hallucinati Verified 08/29/19 10:49 [From Phenergan] ons tramadol HCl [From Ultram] Allergy Rash Verified 08/29/19 10:49 Home Meds: Home Meds predniSONE [Prednisone] 40 mg PO BID 08/05/19 [History] Past Medical History - Past Health History Medical/Surgical History: Denies Medical/Surgical History HEENT History: Reports: None Cardiovascular History: Reports: None Respiratory History: Reports: None Gastrointestinal History: Reports: Gastritis, GERD, Other (See Below) Other Gastrointestinal History: gallbladder pain Genitourinary History: Reports: Renal Calculus, Other (See Below) Other Genitourinary History: Vascular kidney disease Musculoskeletal History: Reports: None Neurological History: Reports: None Psychiatric History: Reports: None Endocrine/Metabolic History: Reports: Obesity/BMI 30+ Hematologic History: Reports: None Immunologic History: Reports: None Oncologic (Cancer) History: Reports: None Dermatologic History: Reports: None - Infectious Disease History Infectious Disease History: Reports: Chicken Pox - Past Surgical History Head Surgeries/Procedures: Reports: None HEENT Surgical History: Reports: None Cardiovascular Surgical History: Reports: None GI Surgical History: Reports: Appendectomy, Cholecystectomy Male Surgical History: Reports: Circumcision Other Male Surgeries/Procedures: Has had kidney biopsy Musculoskeletal Surgical History: Reports: Other (See Below) Other Musculoskeletal Surgeries/Procedures:: left arm Social & Family History - Family History Family Medical History: Noncontributory - Caffeine Use Caffeine Use: Reports: Tea Caffeine Use Comment: 32 oz daily - Living Situation & Occupation Living situation: Reports: Single Occupation: Employed ED ROS GENERAL - Review of Systems Review Of Systems: Comprehensive ROS is negative, except as noted in HPI. ED EXAM, RENAL/ - Physical Exam Exam: See Below Exam Limited By: No Limitations General Appearance: Alert, WD/WN, No Apparent Distress, Obese Eye Exam: Bilateral Eye: Normal Inspection Throat/Mouth: Normal Inspection Head: Atraumatic, Normocephalic Neck: Normal Inspection Respiratory/Chest: No Respiratory Distress, Lungs Clear, Normal Breath Sounds, No Accessory Muscle Use, Chest Non-Tender Cardiovascular: Regular Rate, Rhythm, No Edema, No Murmur GI/Abdominal: Normal Bowel Sounds, Soft, No Distention, Tender (Mildly tender at RUQ, LUQ, and LLQ, no peritoneal signs). No: Guarding, Rigid, Rebound (Male) Exam: Deferred Rectal (Males) Exam: Deferred Back Exam: Full Range of Motion, CVA Tenderness (L), CVA Tenderness (R). No: Vertebral Tenderness Extremities: Normal Inspection, Non-Tender, Normal Capillary Refill. No: Carmelo' s Sign Neurological: Alert, Oriented, CN II-XII Intact, Normal Cognition, Normal Gait, No Motor/Sensory Deficits Psychiatric: Normal Affect, Normal Mood Skin Exam: Warm, Dry, Intact, Normal Color, No Rash. No: Ecchymosis, Erythema, Jaundice, Petechiae Course - Vital Signs Last Recorded V/S: Last Vital Signs Temp 98.5 F 08/29/19 10:44 Pulse 73 08/29/19 10:44 Resp 16 08/29/19 10:44 BP 130/79 08/29/19 10:44 Pulse Ox 99 08/29/19 10:44 - Orders/Labs/Meds Orders: Active Orders 24 hr Category Date Time Status CULTURE URINE [RM] Stat Lab 08/29/19 10:50 Received Sodium Chloride 0.9% [Normal Saline] 1,000 ml Med 08/29/19 10:47 Active IV .BOLUS Medication Orders Sodium Chloride (Normal Saline) 1,000 mls @ 999 mls/hr IV .BOLUS ONE Stop: 08/29/19 11:47 Last Admin: 08/29/19 11:11 Dose: 999 mls/hr Labs: Laboratory Tests 08/29/19 08/29/19 08/29/19 Range/Units 10:50 10:50 10:56 WBC 10.8 H (5.0-10.0) 10^3/uL RBC 5.08 (4.6-6.2) 10^6/uL Hgb 15.2 (14.0-18.0) g/dL Hct 42.9 (40.0-54.0) % MCV 84.4 (80-100) fL MCH 29.9 (27.0-34.0) pg MCHC 35.4 H (33.0-35.0) g/dL Plt Count 341 D (150-450) 10^3/uL Neut % (Auto) 68.4 (42.2-75.2) % Lymph % (Auto) 23.6 (20.5-50.1) % [place] % (Auto) 6.9 (2-8) % Eos % (Auto) 0.9 L (1.0-3.0) % Baso % (Auto) 0.2 (0.0-1.0) % PT (9.0-12.0) SEC INR (0.9-1.2) APTT (22.0-34.0) SEC Sodium (135-145) mmol/L Potassium (3.6-5.0) mmol/L Chloride (101-111) mmol/L Carbon Dioxide (21.0-31.0) mmol/L Anion Gap BUN (7-18) mg/dL Creatinine (0.6-1.3) mg/dL Est Cr Clr Drug Dosing Estimated GFR (MDRD) BUN/Creatinine Ratio Glucose (74-105) mg/dL Calcium (8.4-10.2) mg/dl Total Bilirubin (0.2-1.0) mg/dL AST (10-42) IU/L ALT (10-60) IU/L Alkaline Phosphatase (42-121) IU/L C-Reactive Protein (0.0-1.3) mg/dL Total Protein (6.7-8.2) g/dl Albumin (3.2-5.5) g/dl Globulin Albumin/Globulin Ratio Urine Color Red (YELLOW) Urine Appearance Turbid (CLEAR) Urine pH 5.5 (5.0-9.0) Ur Specific [place] >= 1.030 (1.005-1.030) Urine Protein 100 H (NEGATIVE) Urine Glucose (UA) Negative (NEGATIVE) Urine Ketones Trace H (NEGATIVE) Urine Occult Blood Large H (NEGATIVE) Urine Nitrite Negative (NEGATIVE) Urine Bilirubin Small H (NEGATIVE) Urine Urobilinogen 0.2 (0.2-1.0) mg/dL Ur Leukocyte Esterase Trace H (NEGATIVE) Urine RBC Semi-packed H /HPF Urine WBC 0-5 (0-5/HPF) /HPF Ur Epithelial Cells Moderate H (NOT SEEN) /HPF Urine Bacteria Not seen (0-FEW/HPF) /HPF Urine Mucus Many H (NOT SEEN) /LPF Urine Opiates Screen Negative (NEGATIVE) Ur Oxycodone Screen Negative (NEGATIVE) Urine Methadone Screen Negative (NEGATIVE) Ur Barbiturates Screen Negative (NEGATIVE) U Tricyclic Antidepress Negative (NEGATIVE) Ur Phencyclidine Scrn Negative (NEGATIVE) Ur Amphetamine Screen Negative (NEGATIVE) U Methamphetamines Scrn Negative (NEGATIVE) Urine MDMA Screen Negative (NEGATIVE) U Benzodiazepines Scrn Negative (NEGATIVE) Urine Cocaine Screen Negative (NEGATIVE) U Marijuana (THC) Screen Positive H (NEGATIVE) 08/29/19 08/29/19 08/29/19 Range/Units 10:56 10:56 10:56 WBC (5.0-10.0) 10^3/uL RBC (4.6-6.2) 10^6/uL Hgb (14.0-18.0) g/dL Hct (40.0-54.0) % MCV (80-100) fL MCH (27.0-34.0) pg MCHC (33.0-35.0) g/dL Plt Count (150-450) 10^3/uL Neut % (Auto) (42.2-75.2) % Lymph % (Auto) (20.5-50.1) % [place] % (Auto) (2-8) % Eos % (Auto) (1.0-3.0) % Baso % (Auto) (0.0-1.0) % PT 9.7 (9.0-12.0) SEC INR 0.9 (0.9-1.2) APTT 27.6 (22.0-34.0) SEC Sodium 139 (135-145) mmol/L Potassium 3.7 (3.6-5.0) mmol/L Chloride 106 (101-111) mmol/L Carbon Dioxide 21.0 (21.0-31.0) mmol/L Anion Gap 15.7 BUN 11 (7-18) mg/dL Creatinine 0.8 (0.6-1.3) mg/dL Est Cr Clr Drug Dosing TNP Estimated GFR (MDRD) > 60 BUN/Creatinine Ratio 13.75 Glucose 95 (74-105) mg/dL Calcium 8.7 (8.4-10.2) mg/dl Total Bilirubin 0.9 (0.2-1.0) mg/dL AST 28 (10-42) IU/L ALT 37 (10-60) IU/L Alkaline Phosphatase 66 (42-121) IU/L C-Reactive Protein 0.8 (0.0-1.3) mg/dL Total Protein 7.9 (6.7-8.2) g/dl Albumin 4.7 (3.2-5.5) g/dl Globulin 3.2 Albumin/Globulin Ratio 1.47 Urine Color (YELLOW) Urine Appearance (CLEAR) Urine pH (5.0-9.0) Ur Specific [place] (1.005-1.030) Urine Protein (NEGATIVE) Urine Glucose (UA) (NEGATIVE) Urine Ketones (NEGATIVE) Urine Occult Blood (NEGATIVE) Urine Nitrite (NEGATIVE) Urine Bilirubin (NEGATIVE) Urine Urobilinogen (0.2-1.0) mg/dL Ur Leukocyte Esterase (NEGATIVE) Urine RBC /HPF Urine WBC (0-5/HPF) /HPF Ur Epithelial Cells (NOT SEEN) /HPF Urine Bacteria (0-FEW/HPF) /HPF Urine Mucus (NOT SEEN) /LPF Urine Opiates Screen (NEGATIVE) Ur Oxycodone Screen (NEGATIVE) Urine Methadone Screen (NEGATIVE) Ur Barbiturates Screen (NEGATIVE) U Tricyclic Antidepress (NEGATIVE) Ur Phencyclidine Scrn (NEGATIVE) Ur Amphetamine Screen (NEGATIVE) U Methamphetamines Scrn (NEGATIVE) Urine MDMA Screen (NEGATIVE) U Benzodiazepines Scrn (NEGATIVE) Urine Cocaine Screen (NEGATIVE) U Marijuana (THC) Screen (NEGATIVE) Meds: Medications Generic Name Dose Route Start Last Admin Trade Name Freq PRN Reason Stop Dose Admin Sodium Chloride 1,000 mls @ 999 mls/hr 08/29/19 10:47 08/29/19 11:11 Normal Saline IV 08/29/19 11:47 999 mls/hr .BOLUS ONE Administration Discontinued Medications Generic Name Dose Route Start Last Admin Trade Name Freq PRN Reason Stop Dose Admin Hydromorphone HCl 0.5 mg 08/29/19 10:48 08/29/19 11:13 Dilaudid IVPUSH 08/29/19 10:49 0.5 mg ONETIME ONE Administration Methylprednisolone Sodium Succinate 125 mg 08/29/19 10:47 08/29/19 11:10 Solu-Medrol IVPUSH 08/29/19 10:48 125 mg ONETIME ONE Administration Ondansetron HCl 4 mg 08/29/19 10:47 08/29/19 11:11 Zofran IV 08/29/19 10:48 4 mg ONETIME ONE Administration - Re-Assessments/Exams Free Text/Narrative Re-Assessment/Exam: 08/29/19 11:42 Pt hemodynamically stable, afebrile, and with no significant lab abnormalities other than his urine. Plan to burst and taper Prednisone and have pt follow up in clinic in 3 to 4 days for lab and urine recheck. Departure - Departure Time of Disposition: 11:44 Disposition: Home, Self-Care 01 Condition: Fair Clinical Impression: Gross hematuria, Henoch-Schonlein purpura nephritis - Discharge Information *PRESCRIPTION DRUG MONITORING PROGRAM REVIEWED*: No *COPY OF PRESCRIPTION DRUG MONITORING REPORT IN PATIENT NICO: No Instructions: Hematuria, Adult, Henoch-Schonlein Purpura, Adult Forms: ED Department Discharge Additional Instructions: Rx: Prednisone 20mg: Take 60mg once a day for four days starting tomorrow (). You have an IV dose in the ER today. Rx: Oxycodone 5mg Drink plenty of water. Follow up with your clinic doctor in 3 to 5 days for repeat lab and urine. Notify your agricultural loan officer of the bloody urine flare up. Sepsis Event Note - Focused Exam Vital Signs: Vital Signs Temp Pulse Resp BP Pulse Ox 08/29/19 10:44 98.5 F 73 16 130/79 99 Date Exam was Performed: 08/29/19 Time Exam was Performed: 11:42 - My Orders Last 24 Hours: My Active Orders 08/29/19 10:47 Sodium Chloride 0.9% [Normal Saline] 1,000 ml IV .BOLUS 08/29/19 10:50 CULTURE URINE [RM] Stat - Assessment/Plan Last 24 Hours: My Active Orders 08/29/19 10:47 Sodium Chloride 0.9% [Normal Saline] 1,000 ml IV .BOLUS 08/29/19 10:50 CULTURE URINE [RM] Stat
[2019-08-29 10:45] VITALS: BP 130/79; PULSE 73
[2019-08-29] MEDS ORDERED: Ondansetron 4 MG/2 ML SDV IV ONE (10:47)
[2019-08-29] MEDS ORDERED: Sodium Chloride 0.9% 1,000 ML IV ONE (10:47)
[2019-08-29] MEDS ORDERED: methylPREDNISolone Sodium Succinate 125 MG/2 ML SDV IVPUSH ONE (10:47)
[2019-08-29] MEDS ORDERED: HYDROmorphone 1 MG/ML Syringe IVPUSH ONE (10:48)
[2019-08-29 11:21] LABS: ANION GAP 15.7; CHLORIDE,CL 106 mmol/L (101-111); SODIUM,NA 139 mmol/L (135-145)
== END 2019-08-29 12:15 | disposition home or self-care (01) ==
LOC: DL.ED 10:35
DX: D69.0 Allergic purpura (principal); R31.0 Gross hematuria; E66.9 Obesity, unspecified; Z88.1 Allergy status to other antibiotic agents; Z88.8 Allergy status to other drugs, medicaments and biological substances; Z88.5 Allergy status to narcotic agent; Z91.030 Bee allergy status; Z79.899 Other long term (current) drug therapy; Z90.49 Acquired absence of other specified parts of digestive tract
CPT/HCPCS: 36415; 80053; 80305-QW; 81001; 85025; 85610; 85730; 86140; 87086; 96361; 96374; 96375; 99284-25; J1170; J2405; J2930; J7030

== ENCOUNTER 2019-09-02 11:10 | Emergency (ER) | payer MEDICAID ==
[2019-09-02 11:58] VITALS: BP 132/76; PULSE 67
== END 2019-09-02 14:17 | disposition left against medical advice (07) ==
LOC: DL.ED 11:10
DX: Z53.21 Procedure and treatment not carried out due to patient leaving prior to being seen by health care provider (principal)

== ENCOUNTER 2019-09-06 00:43 | Emergency (ER) | payer MEDICAID ==
[2019-09-06 00:42] VITALS: BP 132/74; PULSE 67
[2019-09-06] MEDS ORDERED: Acetaminophen/HYDROcodone 325-10 MG Tab PO ONE (00:44)
--- NOTE | 2019-09-06 01:00 | EDM.PDOC ---
ED HPI GENERAL MEDICAL PROBLEM - General Chief Complaint: Abdominal Pain Stated Complaint: AMBULANCE Time Seen by Provider: 09/06/19 00:57 Source of Information: Reports: Patient History Limitations: Reports: No Limitations - History of Present Illness INITIAL COMMENTS - FREE TEXT/NARRATIVE: long h/o haematuria related to HSP. seen here few weeks ago had increase prednisone dose. tonight started blood in urine again. Right Lower Abdominal Pain Score (Numeric/FACES): 10 - Related Data Allergies Allergy/AdvReac Type Severity Reaction Status Date / Time amoxicillin [Amoxicillin] Allergy Rash Verified 09/02/19 11:58 bee venom protein (honey bee) Allergy Cannot Verified 09/02/19 11:58 Remember ketorolac tromethamine Allergy Rash Verified 09/02/19 11:58 [From Toradol] metoclopramide [From Reglan] Allergy Agitation Verified 09/02/19 11:58 promethazine HCl Allergy Hallucinati Verified 09/02/19 11:58 [From Phenergan] ons tramadol HCl [From Ultram] Allergy Rash Verified 09/02/19 11:58 Home Meds: Home Meds predniSONE [Prednisone] 40 mg PO BID 08/05/19 [History] Past Medical History - Past Health History Medical/Surgical History: Denies Medical/Surgical History HEENT History: Reports: None Cardiovascular History: Reports: None Respiratory History: Reports: None Gastrointestinal History: Reports: Gastritis, GERD, Other (See Below) Other Gastrointestinal History: gallbladder pain Genitourinary History: Reports: Renal Calculus, Other (See Below) Other Genitourinary History: Vascular kidney disease Musculoskeletal History: Reports: None Neurological History: Reports: None Psychiatric History: Reports: None Endocrine/Metabolic History: Reports: Obesity/BMI 30+ Hematologic History: Reports: None Immunologic History: Reports: None Oncologic (Cancer) History: Reports: None Dermatologic History: Reports: None - Infectious Disease History Infectious Disease History: Reports: Chicken Pox - Past Surgical History Head Surgeries/Procedures: Reports: None HEENT Surgical History: Reports: None Cardiovascular Surgical History: Reports: None GI Surgical History: Reports: Appendectomy, Cholecystectomy Male Surgical History: Reports: Circumcision Other Male Surgeries/Procedures: Has had kidney biopsy Musculoskeletal Surgical History: Reports: Other (See Below) Other Musculoskeletal Surgeries/Procedures:: left arm Social & Family History - Family History Family Medical History: Noncontributory - Tobacco Use Smoking Status *Q: Never Smoker Second Hand Smoke Exposure: No - Caffeine Use Caffeine Use: Reports: Soda Caffeine Use Comment: 32 oz daily - Recreational Drug Use Recreational Drug Use: No - Living Situation & Occupation Living situation: Reports: Single Occupation: Employed ED ROS GENERAL - Review of Systems Review Of Systems: Comprehensive ROS is negative, except as noted in HPI. ED EXAM, RENAL/ - Physical Exam Exam: See Below Exam Limited By: No Limitations General Appearance: Alert, WD/WN, Mild Distress, Other (discomfort) Ears: Hearing Grossly Normal Throat/Mouth: Normal Voice, No Airway Compromise Head: Atraumatic Neck: Non-Tender, Full Range of Motion Respiratory/Chest: No Respiratory Distress Cardiovascular: Regular Rate, Rhythm GI/Abdominal: Soft, Non-Tender Back Exam: CVA Tenderness (L) Neurological: Alert, Oriented, Normal Cognition, Normal Gait, No Motor/Sensory Deficits Psychiatric: Flat Affect Skin Exam: Warm, Dry, Normal Color Lymphatic: No Adenopathy Course - Vital Signs Last Recorded V/S: Last Vital Signs Temp 35.7 C 09/06/19 00:38 Pulse 67 09/06/19 00:38 Resp 18 09/06/19 00:38 BP 132/74 09/06/19 00:38 Pulse Ox 98 09/06/19 00:38 - Orders/Labs/Meds Orders: Active Orders 24 hr Category Date Time Status Abdomen Pelvis wo Cont [CT] Urgent Exams 09/06/19 01:22 Taken Labs: Laboratory Tests 09/06/19 09/06/19 09/06/19 Range/Units 00:52 00:52 01:05 WBC 13.1 H (5.0-10.0) 10^3/uL RBC 5.05 (4.6-6.2) 10^6/uL Hgb 14.9 (14.0-18.0) g/dL Hct 43.8 (40.0-54.0) % MCV 86.7 (80-100) fL MCH 29.5 (27.0-34.0) pg MCHC 34.0 (33.0-35.0) g/dL Plt Count 282 (150-450) 10^3/uL Neut % (Auto) 68.6 (42.2-75.2) % Lymph % (Auto) 24.1 (20.5-50.1) % [place] % (Auto) 6.0 (2-8) % Eos % (Auto) 1.1 (1.0-3.0) % Baso % (Auto) 0.2 (0.0-1.0) % Sodium (135-145) mmol/L Potassium (3.6-5.0) mmol/L Chloride (101-111) mmol/L Carbon Dioxide (21.0-31.0) mmol/L Anion Gap BUN (7-18) mg/dL Creatinine (0.6-1.3) mg/dL Est Cr Clr Drug Dosing mL/min Estimated GFR (MDRD) BUN/Creatinine Ratio Glucose (74-105) mg/dL Calcium (8.4-10.2) mg/dl Total Bilirubin (0.2-1.0) mg/dL AST (10-42) IU/L ALT (10-60) IU/L Alkaline Phosphatase (42-121) IU/L Total Protein (6.7-8.2) g/dl Albumin (3.2-5.5) g/dl Globulin Albumin/Globulin Ratio Urine Color Red (YELLOW) Urine Appearance Cloudy (CLEAR) Urine pH 5.5 (5.0-9.0) Ur Specific [place] >= 1.030 (1.005-1.030) Urine Protein 100 H (NEGATIVE) Urine Glucose (UA) Negative (NEGATIVE) Urine Ketones Negative (NEGATIVE) Urine Occult Blood Large H (NEGATIVE) Urine Nitrite Negative (NEGATIVE) Urine Bilirubin Negative (NEGATIVE) Urine Urobilinogen 0.2 (0.2-1.0) mg/dL Ur Leukocyte Esterase Negative (NEGATIVE) Urine RBC Packed H /HPF Urine WBC 0-5 (0-5/HPF) /HPF Ur Epithelial Cells Few (NOT SEEN) /HPF Urine Bacteria Moderate H (0-FEW/HPF) /HPF Urine Opiates Screen Negative (NEGATIVE) Ur Oxycodone Screen Negative (NEGATIVE) Urine Methadone Screen Negative (NEGATIVE) Ur Barbiturates Screen Negative (NEGATIVE) U Tricyclic Antidepress Negative (NEGATIVE) Ur Phencyclidine Scrn Negative (NEGATIVE) Ur Amphetamine Screen Negative (NEGATIVE) U Methamphetamines Scrn Negative (NEGATIVE) Urine MDMA Screen Negative (NEGATIVE) U Benzodiazepines Scrn Negative (NEGATIVE) Urine Cocaine Screen Negative (NEGATIVE) U Marijuana (THC) Screen Positive H (NEGATIVE) 09/06/19 Range/Units 01:05 WBC (5.0-10.0) 10^3/uL RBC (4.6-6.2) 10^6/uL Hgb (14.0-18.0) g/dL Hct (40.0-54.0) % MCV (80-100) fL MCH (27.0-34.0) pg MCHC (33.0-35.0) g/dL Plt Count (150-450) 10^3/uL Neut % (Auto) (42.2-75.2) % Lymph % (Auto) (20.5-50.1) % Cameron % (Auto) (2-8) % Eos % (Auto) (1.0-3.0) % Baso % (Auto) (0.0-1.0) % Sodium 139 (135-145) mmol/L Potassium 3.7 (3.6-5.0) mmol/L Chloride 108 (101-111) mmol/L Carbon Dioxide 21.0 (21.0-31.0) mmol/L Anion Gap 13.7 BUN 14 (7-18) mg/dL Creatinine 0.8 (0.6-1.3) mg/dL Est Cr Clr Drug Dosing 155.36 mL/min Estimated GFR (MDRD) > 60 BUN/Creatinine Ratio 17.50 Glucose 95 (74-105) mg/dL Calcium 8.7 (8.4-10.2) mg/dl Total Bilirubin 0.6 (0.2-1.0) mg/dL AST 21 (10-42) IU/L ALT 37 (10-60) IU/L Alkaline Phosphatase 69 (42-121) IU/L Total Protein 7.4 (6.7-8.2) g/dl Albumin 4.4 (3.2-5.5) g/dl Globulin 3.0 Albumin/Globulin Ratio 1.47 Urine Color (YELLOW) Urine Appearance (CLEAR) Urine pH (5.0-9.0) Ur Specific [place] (1.005-1.030) Urine Protein (NEGATIVE) Urine Glucose (UA) (NEGATIVE) Urine Ketones (NEGATIVE) Urine Occult Blood (NEGATIVE) Urine Nitrite (NEGATIVE) Urine Bilirubin (NEGATIVE) Urine Urobilinogen (0.2-1.0) mg/dL Ur Leukocyte Esterase (NEGATIVE) Urine RBC /HPF Urine WBC (0-5/HPF) /HPF Ur Epithelial Cells (NOT SEEN) /HPF Urine Bacteria (0-FEW/HPF) /HPF Urine Opiates Screen (NEGATIVE) Ur Oxycodone Screen (NEGATIVE) Urine Methadone Screen (NEGATIVE) Ur Barbiturates Screen (NEGATIVE) U Tricyclic Antidepress (NEGATIVE) Ur Phencyclidine Scrn (NEGATIVE) Ur Amphetamine Screen (NEGATIVE) U Methamphetamines Scrn (NEGATIVE) Urine MDMA Screen (NEGATIVE) U Benzodiazepines Scrn (NEGATIVE) Urine Cocaine Screen (NEGATIVE) U Marijuana (THC) Screen (NEGATIVE) Meds: Medications Discontinued Medications Generic Name Dose Route Start Last Admin Trade Name Freq PRN Reason Stop Dose Admin Hydromorphone HCl 1 mg 09/06/19 01:21 09/06/19 01:43 Dilaudid IVPUSH 09/06/19 01:22 1 mg ONETIME ONE Administration Sodium Chloride 1,000 mls @ 999 mls/hr 09/06/19 01:21 09/06/19 01:41 Normal Saline IV 09/06/19 02:21 999 mls/hr .BOLUS ONE Administration Ondansetron HCl 4 mg 09/06/19 01:21 09/06/19 01:41 Zofran IVPUSH 09/06/19 01:22 4 mg ONETIME ONE Administration - Re-Assessments/Exams Free Text/Narrative Re-Assessment/Exam: 09/06/19 02:47 reuslts discussed with pt & parent Departure - Departure Time of Disposition: 02:47 Disposition: Home, Self-Care 01 Condition: Good Clinical Impression: Gross hematuria, Flank pain, Henoch-Schonlein purpura nephritis - Discharge Information Forms: ED Department Discharge Additional Instructions: 1) follow up with clinic Sunday rx jagdeepo; claus 10 x 1 Sepsis Event Note - Evaluation Sepsis Screening Result: No Definite Risk - Focused Exam Vital Signs: Vital Signs Temp Pulse Resp BP Pulse Ox 09/06/19 00:38 35.7 C 67 18 132/74 98 Date Exam was Performed: 09/06/19 Time Exam was Performed: 02:47 - My Orders Last 24 Hours: My Active Orders 09/06/19 01:22 Abdomen Pelvis wo Cont [CT] Urgent - Assessment/Plan Last 24 Hours: My Active Orders 09/06/19 01:22 Abdomen Pelvis wo Cont [CT] Urgent
[2019-09-06] MEDS ORDERED: HYDROmorphone 1 MG/ML Syringe IVPUSH ONE (01:21)
[2019-09-06] MEDS ORDERED: Sodium Chloride 0.9% 1,000 ML IV ONE (01:21)
[2019-09-06] MEDS ORDERED: Ondansetron 4 MG/2 ML SDV IVPUSH ONE (01:21)
[2019-09-06 01:27] LABS: ANION GAP 13.7; CHLORIDE,CL 108 mmol/L (101-111); SODIUM,NA 139 mmol/L (135-145)
[2019-09-06] MEDS ORDERED: Acetaminophen/HYDROcodone 325-10 MG Tab ONE (02:52)
== END 2019-09-06 02:58 | disposition home or self-care (01) ==
LOC: DL.ED 00:43
DX: R31.0 Gross hematuria (principal); R10.31 Right lower quadrant pain; D69.0 Allergic purpura; E66.9 Obesity, unspecified; Z68.41 Body mass index [BMI] 40.0-44.9, adult; Z90.49 Acquired absence of other specified parts of digestive tract; Z88.1 Allergy status to other antibiotic agents; Z88.8 Allergy status to other drugs, medicaments and biological substances; Z88.5 Allergy status to narcotic agent; Z91.030 Bee allergy status; Z79.899 Other long term (current) drug therapy
CPT/HCPCS: 36415; 74176; 80053; 80305; 81001; 85025; 96361; 96374; 96375; 99285; A9270; J1170; J2405; J7030

== ENCOUNTER 2019-09-07 08:12 | Emergency (ER) | payer MEDICAID ==
[2019-09-07 08:26] VITALS: BP 141/90; PULSE 74
--- NOTE | 2019-09-07 08:39 | EDM.PDOC ---
ED HPI GENERAL MEDICAL PROBLEM - General Chief Complaint: Flank Pain Stated Complaint: PASSING BLOOD Time Seen by Provider: 09/07/19 08:33 Source of Information: Reports: Patient, Old Records, RN, RN Notes Reviewed History Limitations: Reports: No Limitations - History of Present Illness INITIAL COMMENTS - FREE TEXT/NARRATIVE: Pt presents to ER from home by POV with c/o B/L flank pain that is worse on the right and is associated with hanna hematuria. Pt states this began flaring up about 1 week ago, and has had several ER visits for pain control since that time. He is also currently nauseated. 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 which has flared several times since his initial onset. He states he has an appointment in the next one or two weeks with both a fish and wildlife technician (on 09/15/19), and channel lip stiffener insoles for follow up. He denies fever, chills, vomiting, diarrhea, joint pain or swelling, rash or skin lesions/changes. Pt was seen here on 08/29/19 with the same symptoms, at which time he claimed he had called his specialist who recommended at steroid burst. He was treated with Solu-Medrol 125mg IVP follow by Prednisone 60mg daily for several days. Pt states that while he was on the higher steroid dose his hematuria resolved and his pain went away. Duration: Week(s): (1), Getting Worse, Recurring Location: Reports: Abdomen, Back Quality: Reports: Same as Previous Episode Severity: Severe Improves with: Reports: None Worsens with: Reports: None Associated Symptoms: Reports: No Other Symptoms Treatments COMMUNITY REINVESTMENT ACT OFFICER: Reports: Acetaminophen Other Treatments COMMUNITY REINVESTMENT ACT OFFICER: tylenol 500mg 2 tabs at 0120. Bilateral Flank Pain Score (Numeric/FACES): 9 - Related Data Allergies Allergy/AdvReac Type Severity Reaction Status Date / Time amoxicillin [Amoxicillin] Allergy Rash Verified 09/07/19 08:21 bee venom protein (honey bee) Allergy Cannot Verified 09/07/19 08:21 Remember ketorolac tromethamine Allergy Rash Verified 09/07/19 08:21 [From Toradol] metoclopramide [From Reglan] Allergy Agitation Verified 09/07/19 08:21 promethazine HCl Allergy Hallucinati Verified 09/07/19 08:21 [From Phenergan] ons tramadol HCl [From Ultram] Allergy Rash Verified 09/07/19 08:21 Home Meds: Home Meds predniSONE [Prednisone] 40 mg PO BID 08/05/19 [History] Past Medical History - Past Health History Medical/Surgical History: Denies Medical/Surgical History HEENT History: Reports: None Cardiovascular History: Reports: None Respiratory History: Reports: None Gastrointestinal History: Reports: Gastritis, GERD, Other (See Below) Other Gastrointestinal History: gallbladder pain Genitourinary History: Reports: Renal Calculus, Other (See Below) Other Genitourinary History: Vascular kidney disease Musculoskeletal History: Reports: None Neurological History: Reports: None Psychiatric History: Reports: None Endocrine/Metabolic History: Reports: Obesity/BMI 30+ Hematologic History: Reports: None Immunologic History: Reports: None Oncologic (Cancer) History: Reports: None Dermatologic History: Reports: None - Infectious Disease History Infectious Disease History: Reports: Chicken Pox - Past Surgical History Head Surgeries/Procedures: Reports: None HEENT Surgical History: Reports: None Cardiovascular Surgical History: Reports: None GI Surgical History: Reports: Appendectomy, Cholecystectomy Male Surgical History: Reports: Circumcision Other Male Surgeries/Procedures: Has had kidney biopsy Musculoskeletal Surgical History: Reports: Other (See Below) Other Musculoskeletal Surgeries/Procedures:: left arm Social & Family History - Family History Family Medical History: Noncontributory - Tobacco Use Smoking Status *Q: Never Smoker Tobacco Use Within Last Twelve Months: Smokeless Tobacco (Previous, but quit.) - Caffeine Use Caffeine Use: Reports: Soda Caffeine Use Comment: 32 oz daily - Alcohol Use Alcohol Use History: Yes Alcohol Use Frequency: Not Used in Over 4 Months - Recreational Drug Use Recreational Drug Use: Yes Recreational Drug Type: Reports: Marijuana/Hashish Recreational Drug Route: Reports: Other (See Below) (Pt states he uses a topical THC/CBD oil for joint pain.) - Living Situation & Occupation Living situation: Reports: Single, Alone Occupation: Employed ED ROS GENERAL - Review of Systems Review Of Systems: Comprehensive ROS is negative, except as noted in HPI. ED EXAM, RENAL/ - Physical Exam Exam: See Below Exam Limited By: No Limitations General Appearance: Alert, No Apparent Distress, Obese Eye Exam: Bilateral Eye: Normal Inspection Throat/Mouth: Normal Inspection, Normal Lips, Normal Voice, No Airway Compromise Head: Atraumatic, Normocephalic Respiratory/Chest: No Respiratory Distress, Lungs Clear, Normal Breath Sounds, No Accessory Muscle Use, Chest Non-Tender Cardiovascular: Regular Rate, Rhythm, No Edema, No Murmur GI/Abdominal: Normal Bowel Sounds, Soft, No Organomegaly, No Distention, No Abnormal Bruit, No Mass, Tender (RUQ) (Male) Exam: Deferred Rectal (Males) Exam: Deferred Back Exam: Full Range of Motion, CVA Tenderness (R). No: CVA Tenderness (L), Vertebral Tenderness Extremities: Normal Inspection, Normal Range of Motion, Non-Tender, Normal Capillary Refill, No Pedal Edema Neurological: Alert, Oriented, CN II-XII Intact, Normal Cognition, Normal Gait, No Motor/Sensory Deficits Psychiatric: Normal Affect, Normal Mood Skin Exam: Warm, Dry, Intact, Normal Color, No Rash. No: Ecchymosis, Jaundice, Petechiae, Rash Course - Vital Signs Last Recorded V/S: Last Vital Signs Temp 97 F 09/07/19 08:22 Pulse 74 09/07/19 08:22 Resp 18 09/07/19 08:22 BP 141/90 H 09/07/19 08:22 Pulse Ox 99 09/07/19 08:22 - Orders/Labs/Meds Orders: Active Orders 24 hr Category Date Time Status Sodium Chloride 0.9% [Normal Saline] 1,000 ml Med 09/07/19 10:41 Active IV .BOLUS Medication Orders Sodium Chloride (Normal Saline) 1,000 mls @ 999 mls/hr IV .BOLUS ONE Stop: 09/07/19 11:41 Last Admin: 09/07/19 10:52 Dose: 999 mls/hr Labs: Laboratory Tests 09/07/19 09/07/19 09/07/19 Range/Units 09:16 09:16 09:16 WBC 10.5 H (5.0-10.0) 10^3/uL RBC 5.27 (4.6-6.2) 10^6/uL Hgb 15.8 (14.0-18.0) g/dL Hct 44.5 (40.0-54.0) % MCV 84.4 (80-100) fL MCH 30.0 (27.0-34.0) pg MCHC 35.5 H (33.0-35.0) g/dL Plt Count 353 (150-450) 10^3/uL Neut % (Auto) 70.1 (42.2-75.2) % Lymph % (Auto) 21.8 (20.5-50.1) % Webb % (Auto) 6.9 (2-8) % Eos % (Auto) 0.9 L (1.0-3.0) % Baso % (Auto) 0.3 (0.0-1.0) % Sodium 138 (135-145) mmol/L Potassium 5.4 H D (3.6-5.0) mmol/L Chloride 105 (101-111) mmol/L Carbon Dioxide 25.0 (21.0-31.0) mmol/L Anion Gap 13.4 BUN 11 (7-18) mg/dL Creatinine 1.0 (0.6-1.3) mg/dL Est Cr Clr Drug Dosing 124.29 mL/min Estimated GFR (MDRD) > 60 Glucose 86 (74-105) mg/dL Calcium 9.0 (8.4-10.2) mg/dl C-Reactive Protein < 0.5 (0.0-1.3) mg/dL Urine Color (YELLOW) Urine Appearance (CLEAR) Urine pH (5.0-9.0) Ur Specific [place] (1.005-1.030) Urine Protein (NEGATIVE) Urine Glucose (UA) (NEGATIVE) Urine Ketones (NEGATIVE) Urine Occult Blood (NEGATIVE) Urine Nitrite (NEGATIVE) Urine Bilirubin (NEGATIVE) Urine Urobilinogen (0.2-1.0) mg/dL Ur Leukocyte Esterase (NEGATIVE) Urine RBC /HPF Urine WBC (0-5/HPF) /HPF Ur Epithelial Cells (NOT SEEN) /HPF Amorphous Sediment (NOT SEEN) /HPF Urine Bacteria (0-FEW/HPF) /HPF Urine Mucus (NOT SEEN) /LPF 09/07/19 Range/Units 10:59 WBC (5.0-10.0) 10^3/uL RBC (4.6-6.2) 10^6/uL Hgb (14.0-18.0) g/dL Hct (40.0-54.0) % MCV (80-100) fL MCH (27.0-34.0) pg MCHC (33.0-35.0) g/dL Plt Count (150-450) 10^3/uL Neut % (Auto) (42.2-75.2) % Lymph % (Auto) (20.5-50.1) % Webb % (Auto) (2-8) % Eos % (Auto) (1.0-3.0) % Baso % (Auto) (0.0-1.0) % Sodium (135-145) mmol/L Potassium (3.6-5.0) mmol/L Chloride (101-111) mmol/L Carbon Dioxide (21.0-31.0) mmol/L Anion Gap BUN (7-18) mg/dL Creatinine (0.6-1.3) mg/dL Est Cr Clr Drug Dosing mL/min Estimated GFR (MDRD) Glucose (74-105) mg/dL Calcium (8.4-10.2) mg/dl C-Reactive Protein (0.0-1.3) mg/dL Urine Color Red (YELLOW) Urine Appearance Turbid (CLEAR) Urine pH 5.0 (5.0-9.0) Ur Specific [place] 1.025 (1.005-1.030) Urine Protein 30 H (NEGATIVE) Urine Glucose (UA) Negative (NEGATIVE) Urine Ketones Trace H (NEGATIVE) Urine Occult Blood Large H (NEGATIVE) Urine Nitrite Negative (NEGATIVE) Urine Bilirubin Negative (NEGATIVE) Urine Urobilinogen 0.2 (0.2-1.0) mg/dL Ur Leukocyte Esterase Negative (NEGATIVE) Urine RBC >100 H /HPF Urine WBC 0-5 (0-5/HPF) /HPF Ur Epithelial Cells Few (NOT SEEN) /HPF Amorphous Sediment Moderate (NOT SEEN) /HPF Urine Bacteria Rare (0-FEW/HPF) /HPF Urine Mucus Few H (NOT SEEN) /LPF Meds: Medications Generic Name Dose Route Start Last Admin Trade Name Freq PRN Reason Stop Dose Admin Sodium Chloride 1,000 mls @ 999 mls/hr 09/07/19 10:41 09/07/19 10:52 Normal Saline IV 09/07/19 11:41 999 mls/hr .BOLUS ONE Administration Discontinued Medications Generic Name Dose Route Start Last Admin Trade Name Freq PRN Reason Stop Dose Admin Hydromorphone HCl 0.5 mg 09/07/19 08:47 09/07/19 09:03 Dilaudid IVPUSH 09/07/19 08:48 0.5 mg ONETIME ONE Administration Hydromorphone HCl 0.5 mg 09/07/19 10:40 09/07/19 10:52 Dilaudid IVPUSH 09/07/19 10:41 0.5 mg ONETIME ONE Administration Sodium Chloride 1,000 mls @ 999 mls/hr 09/07/19 08:46 09/07/19 09:04 Normal Saline IV 09/07/19 09:46 999 mls/hr .BOLUS ONE Administration Methylprednisolone Sodium Succinate 125 mg 09/07/19 08:47 09/07/19 09:04 Solu-Medrol IVPUSH 09/07/19 08:48 125 mg ONETIME ONE Administration Ondansetron HCl 4 mg 09/07/19 08:46 09/07/19 09:04 Zofran IV 09/07/19 08:47 4 mg ONETIME ONE Administration Departure - Departure Time of Disposition: 11:22 Disposition: Home, Self-Care 01 Condition: Fair Clinical Impression: Henoch-Schonlein purpura nephritis, Gross hematuria - Discharge Information *PRESCRIPTION DRUG MONITORING PROGRAM REVIEWED*: No *COPY OF PRESCRIPTION DRUG MONITORING REPORT IN PATIENT NICO: No Instructions: Hematuria, Adult, Henoch-Schonlein Purpura, Adult Forms: ED Department Discharge Additional Instructions: Rx: Prednisone 20mg Rx: Oxycodone 10mg *Do not drive or work while under the influence of this medication. Drink plenty of water. Follow up with fish and wildlife technician and channel lip stiffener insoles at the first available appointment. Follow up in clinic for medication management. Sepsis Event Note - Evaluation Sepsis Screening Result: No Definite Risk - Focused Exam Vital Signs: Vital Signs Temp Pulse Resp BP Pulse Ox 09/07/19 08:22 97 F 74 18 141/90 H 99 Date Exam was Performed: 09/07/19 Time Exam was Performed: 11:21 - My Orders Last 24 Hours: My Active Orders 09/07/19 10:41 Sodium Chloride 0.9% [Normal Saline] 1,000 ml IV .BOLUS - Assessment/Plan Last 24 Hours: My Active Orders 09/07/19 10:41 Sodium Chloride 0.9% [Normal Saline] 1,000 ml IV .BOLUS
[2019-09-07] MEDS ORDERED: Ondansetron 4 MG/2 ML SDV IV ONE (08:46)
[2019-09-07] MEDS ORDERED: Sodium Chloride 0.9% 1,000 ML IV ONE ×2 (08:46→10:41)
[2019-09-07] MEDS ORDERED: HYDROmorphone 1 MG/ML Syringe IVPUSH ONE ×2 (08:47→10:40)
[2019-09-07] MEDS ORDERED: methylPREDNISolone Sodium Succinate 125 MG/2 ML SDV IVPUSH ONE (08:47)
[2019-09-07 09:42] LABS: ANION GAP 13.4; CHLORIDE,CL 105 mmol/L (101-111); SODIUM,NA 138 mmol/L (135-145)
== END 2019-09-07 11:48 | disposition home or self-care (01) ==
LOC: DL.ED 08:12
DX: R31.0 Gross hematuria (principal); D69.0 Allergic purpura; E66.9 Obesity, unspecified; Z68.41 Body mass index [BMI] 40.0-44.9, adult; Z87.891 Personal history of nicotine dependence; Z90.49 Acquired absence of other specified parts of digestive tract; Z88.1 Allergy status to other antibiotic agents; Z88.5 Allergy status to narcotic agent; Z88.8 Allergy status to other drugs, medicaments and biological substances; Z91.030 Bee allergy status; Z79.899 Other long term (current) drug therapy
CPT/HCPCS: 36415; 80048; 81001; 85025; 86140; 96361; 96374; 96375; 96376; 99284; J1170; J2405; J2930; J7030

== ENCOUNTER 2020-01-06 20:12 | Emergency (ER) | payer MEDICAID ==
[2020-01-06] MEDS ORDERED: Oxybutynin 5 MG Tab PO ONE (20:13)
[2020-01-06] MEDS ORDERED: HYDROmorphone 0.5 MG/0.5 ML Syringe IVPUSH ONE (20:32)
[2020-01-06] MEDS ORDERED: Ondansetron 4 MG/2 ML SDV IVPUSH ONE (20:34)
[2020-01-06 20:43] VITALS: BP 127/70; PULSE 75
[2020-01-06] MEDS ORDERED: Sodium Chloride 0.9% 1,000 ML IV ONE (20:43)
[2020-01-06] MEDS ORDERED: methylPREDNISolone Sodium Succinate 125 MG/2 ML SDV IVPUSH ONE (20:43)
[2020-01-06 21:07] LABS: ANION GAP 14.1 mEq/L (7-13); CHLORIDE,CL 103 mmol/L (98-107); SODIUM,NA 140 mmol/L (136-145)
[2020-01-06] MEDS ORDERED: HYDROmorphone 1 MG/ML Syringe IVPUSH ONE (21:13)
[2020-01-06] MEDS ORDERED: oxyCODONE 5 MG Tab ONE (21:18)
--- NOTE | 2020-01-06 21:23 | EDM.PDOC ---
ED HPI GENERAL MEDICAL PROBLEM - General Chief Complaint: Genitourinary Problem Stated Complaint: left kidney pain Time Seen by Provider: 01/06/20 20:35 Source of Information: Reports: Patient History Limitations: Reports: No Limitations - History of Present Illness INITIAL COMMENTS - FREE TEXT/NARRATIVE: ED with c/o pain to right flank and "peeing blood" since this am. Tried tylenol , heat and pushing fluids and not helping. Nausea, no vomiting. Hx Henoch Schon. No recent fever or chills Treatments COPIER OPERATOR: Reports: Acetaminophen, Heat Therapy Left Flank Pain Score (Numeric/FACES): 9 - Related Data Allergies Allergy/AdvReac Type Severity Reaction Status Date / Time amoxicillin [Amoxicillin] Allergy Rash Verified 01/06/20 20:45 bee venom protein (honey bee) Allergy Cannot Verified 01/06/20 20:45 Remember ketorolac tromethamine Allergy Rash Verified 01/06/20 20:45 [From Toradol] metoclopramide [From Reglan] Allergy Agitation Verified 01/06/20 20:45 promethazine HCl Allergy Hallucinati Verified 01/06/20 20:45 [From Phenergan] ons tramadol HCl [From Ultram] Allergy Rash Verified 01/06/20 20:45 Home Meds: Home Meds predniSONE [Prednisone] 40 mg PO BID 08/05/19 [History] Past Medical History - Past Health History Medical/Surgical History: Denies Medical/Surgical History HEENT History: Reports: None Cardiovascular History: Reports: None Respiratory History: Reports: None Gastrointestinal History: Reports: Gastritis, GERD, Other (See Below) Other Gastrointestinal History: gallbladder pain Genitourinary History: Reports: Renal Calculus, Other (See Below) Other Genitourinary History: Vascular kidney disease Musculoskeletal History: Reports: None Neurological History: Reports: None Psychiatric History: Reports: None Endocrine/Metabolic History: Reports: Obesity/BMI 30+ Hematologic History: Reports: None Immunologic History: Reports: None Oncologic (Cancer) History: Reports: None Dermatologic History: Reports: None - Infectious Disease History Infectious Disease History: Reports: Chicken Pox - Past Surgical History Head Surgeries/Procedures: Reports: None HEENT Surgical History: Reports: None Cardiovascular Surgical History: Reports: None GI Surgical History: Reports: Appendectomy, Cholecystectomy Male Surgical History: Reports: Circumcision Other Male Surgeries/Procedures: Has had kidney biopsy Musculoskeletal Surgical History: Reports: Other (See Below) Other Musculoskeletal Surgeries/Procedures:: left arm Social & Family History - Family History Family Medical History: Noncontributory - Tobacco Use Smoking Status *Q: Never Smoker Second Hand Smoke Exposure: No - Caffeine Use Caffeine Use: Reports: Soda Caffeine Use Comment: 32 oz daily - Recreational Drug Use Recreational Drug Use: No - Living Situation & Occupation Living situation: Reports: Single, Alone Occupation: Employed ED ROS GENERAL - Review of Systems Review Of Systems: Comprehensive ROS is negative, except as noted in HPI. ED EXAM, RENAL/ - Physical Exam Exam: See Below Exam Limited By: No Limitations General Appearance: Alert, Mild Distress Eye Exam: Bilateral Eye: EOMI Ears: Normal External Exam Nose: Normal Inspection Throat/Mouth: Normal Inspection Head: Atraumatic, Normocephalic Neck: Normal Inspection Respiratory/Chest: No Respiratory Distress, Lungs Clear, Normal Breath Sounds Cardiovascular: Normal Peripheral Pulses, Regular Rate, Rhythm GI/Abdominal: Normal Bowel Sounds, Soft, Non-Tender Back Exam: Full Range of Motion, CVA Tenderness (R) Neurological: Alert, Oriented, Normal Cognition, Normal Gait Psychiatric: Normal Affect Skin Exam: Warm, Dry, Intact, Normal Color Course - Vital Signs Last Recorded V/S: Last Vital Signs Temp 97.8 F 01/06/20 20:25 Pulse 75 01/06/20 20:25 Resp 19 01/06/20 20:25 BP 127/70 01/06/20 20:25 Pulse Ox 98 01/06/20 20:25 - Orders/Labs/Meds Labs: Laboratory Tests 01/06/20 01/06/20 01/06/20 Range/Units 20:43 20:43 20:43 WBC 11.1 H (5.0-10.0) 10^3/uL RBC 5.25 (4.6-6.2) 10^6/uL Hgb 15.4 (14.0-18.0) g/dL Hct 44.1 (40.0-54.0) % MCV 84.0 (80-100) fL MCH 29.3 (27.0-34.0) pg MCHC 34.9 (33.0-35.0) g/dL Plt Count 318 (150-450) 10^3/uL Neut % (Auto) 61.1 (42.2-75.2) % Lymph % (Auto) 30.8 (20.5-50.1) % [place] % (Auto) 5.5 (2-8) % Eos % (Auto) 2.2 (1.0-3.0) % Baso % (Auto) 0.4 (0.0-1.0) % Sodium (136-145) mmol/L Potassium (3.5-5.1) mmol/L Chloride (98-107) mmol/L Carbon Dioxide (21-32) mmol/L Anion Gap (7-13) mEq/L BUN (7-18) mg/dL Creatinine (0.70-1.30) mg/dL Est Cr Clr Drug Dosing mL/min Estimated GFR (MDRD) BUN/Creatinine Ratio (No establ ref range) Glucose (74-99) mg/dL Calcium (8.5-10.1) mg/dL Total Bilirubin (0.2-1.0) mg/dL AST (15-37) U/L ALT (16-63) U/L Alkaline Phosphatase (46-116) U/L Total Protein (6.4-8.2) g/dL Albumin (3.4-5.0) g/dL Globulin Albumin/Globulin Ratio Urine Color Red (YELLOW) Urine Appearance Turbid (CLEAR) Urine pH 6.5 (5.0-9.0) Ur Specific [place] 1.025 (1.005-1.030) Urine Protein 30 H (NEGATIVE) Urine Glucose (UA) Negative (NEGATIVE) Urine Ketones Trace H (NEGATIVE) Urine Occult Blood Large H (NEGATIVE) Urine Nitrite Negative (NEGATIVE) Urine Bilirubin Negative (NEGATIVE) Urine Urobilinogen 0.2 (0.2-1.0) mg/dL Ur Leukocyte Esterase Negative (NEGATIVE) Urine RBC >100 H /HPF Urine WBC 0-5 (0-5/HPF) /HPF Ur Epithelial Cells Few (NOT SEEN) /HPF Amorphous Sediment Rare (NOT SEEN) /HPF Urine Bacteria Rare (0-FEW/HPF) /HPF Urine Mucus Rare (NOT SEEN) /LPF Urine Opiates Screen Negative (NEGATIVE) Ur Oxycodone Screen Negative (NEGATIVE) Urine Methadone Screen Negative (NEGATIVE) Ur Barbiturates Screen Negative (NEGATIVE) U Tricyclic Antidepress Negative (NEGATIVE) Ur Phencyclidine Scrn Negative (NEGATIVE) Ur Amphetamine Screen Negative (NEGATIVE) U Methamphetamines Scrn Negative (NEGATIVE) Urine MDMA Screen Negative (NEGATIVE) U Benzodiazepines Scrn Negative (NEGATIVE) Urine Cocaine Screen Negative (NEGATIVE) U Marijuana (THC) Screen Positive H (NEGATIVE) 01/06/20 Range/Units 20:43 WBC (5.0-10.0) 10^3/uL RBC (4.6-6.2) 10^6/uL Hgb (14.0-18.0) g/dL Hct (40.0-54.0) % MCV (80-100) fL MCH (27.0-34.0) pg MCHC (33.0-35.0) g/dL Plt Count (150-450) 10^3/uL Neut % (Auto) (42.2-75.2) % Lymph % (Auto) (20.5-50.1) % [place] % (Auto) (2-8) % Eos % (Auto) (1.0-3.0) % Baso % (Auto) (0.0-1.0) % Sodium 140 (136-145) mmol/L Potassium 4.1 (3.5-5.1) mmol/L Chloride 103 (98-107) mmol/L Carbon Dioxide 27 (21-32) mmol/L Anion Gap 14.1 H (7-13) mEq/L BUN 16 (7-18) mg/dL Creatinine 1.14 (0.70-1.30) mg/dL Est Cr Clr Drug Dosing 105.89 mL/min Estimated GFR (MDRD) > 60 BUN/Creatinine Ratio 14.0 (No establ ref range) Glucose 109 H (74-99) mg/dL Calcium 8.6 (8.5-10.1) mg/dL Total Bilirubin 0.4 (0.2-1.0) mg/dL AST 18 (15-37) U/L ALT 35 (16-63) U/L Alkaline Phosphatase 93 (46-116) U/L Total Protein 7.3 (6.4-8.2) g/dL Albumin 3.8 (3.4-5.0) g/dL Globulin 3.5 Albumin/Globulin Ratio 1.1 Urine Color (YELLOW) Urine Appearance (CLEAR) Urine pH (5.0-9.0) Ur Specific [place] (1.005-1.030) Urine Protein (NEGATIVE) Urine Glucose (UA) (NEGATIVE) Urine Ketones (NEGATIVE) Urine Occult Blood (NEGATIVE) Urine Nitrite (NEGATIVE) Urine Bilirubin (NEGATIVE) Urine Urobilinogen (0.2-1.0) mg/dL Ur Leukocyte Esterase (NEGATIVE) Urine RBC /HPF Urine WBC (0-5/HPF) /HPF Ur Epithelial Cells (NOT SEEN) /HPF Amorphous Sediment (NOT SEEN) /HPF Urine Bacteria (0-FEW/HPF) /HPF Urine Mucus (NOT SEEN) /LPF Urine Opiates Screen (NEGATIVE) Ur Oxycodone Screen (NEGATIVE) Urine Methadone Screen (NEGATIVE) Ur Barbiturates Screen (NEGATIVE) U Tricyclic Antidepress (NEGATIVE) Ur Phencyclidine Scrn (NEGATIVE) Ur Amphetamine Screen (NEGATIVE) U Methamphetamines Scrn (NEGATIVE) Urine MDMA Screen (NEGATIVE) U Benzodiazepines Scrn (NEGATIVE) Urine Cocaine Screen (NEGATIVE) U Marijuana (THC) Screen (NEGATIVE) Meds: Medications Discontinued Medications Generic Name Dose Route Start Last Admin Trade Name Freq PRN Reason Stop Dose Admin Hydromorphone HCl 0.5 mg 01/06/20 20:32 01/06/20 20:57 Dilaudid IVPUSH 01/06/20 20:33 0.5 mg ONETIME ONE Administration Hydromorphone HCl 1 mg 01/06/20 21:13 01/06/20 21:18 Dilaudid IVPUSH 01/06/20 21:14 1 mg ONETIME ONE Administration Sodium Chloride 1,000 mls @ 999 mls/hr 01/06/20 20:43 01/06/20 21:01 Normal Saline IV 01/06/20 21:43 999 mls/hr .BOLUS ONE Administration Methylprednisolone Sodium Succinate 125 mg 01/06/20 20:43 01/06/20 20:59 Solu-Medrol IVPUSH 01/06/20 20:44 125 mg ONETIME ONE Administration Ondansetron HCl 4 mg 01/06/20 20:34 01/06/20 20:53 Zofran IVPUSH 01/06/20 20:35 4 mg ONETIME ONE Administration Oxycodone HCl Confirm 01/06/20 21:18 01/06/20 21:25 Oxycodone Administered 01/06/20 21:19 Not Given Dose 10 mg .ROUTE .STK-MED ONE - Re-Assessments/Exams Free Text/Narrative Re-Assessment/Exam: Discussed risk with steroid management. Instructed to limit exposure to others and wear mask. Patient understanding risk of immunosuppression. Departure - Departure Time of Disposition: 21:20 Disposition: Home, Self-Care 01 Condition: Good Clinical Impression: Gross hematuria, Flank pain, History of Henoch-Schonlein purpura - Discharge Information *PRESCRIPTION DRUG MONITORING PROGRAM REVIEWED*: Yes *COPY OF PRESCRIPTION DRUG MONITORING REPORT IN PATIENT NICO: No Instructions: Hematuria, Adult Forms: ED Department Discharge Additional Instructions: prednisone 20mg as ordered oxycodone 5mg every 6 hours as needed for severe pain #14 Clinic follow up this week increase fluids wear mask limit exposure to others especially with steroid use as lowers immune system frequent hand washing Sepsis Event Note - Evaluation Sepsis Screening Result: No Definite Risk - Focused Exam Vital Signs: Vital Signs Temp Pulse Resp BP Pulse Ox 01/06/20 20:25 97.8 F 75 19 127/70 98 Date Exam was Performed: 01/07/20 Time Exam was Performed: 05:40
== END 2020-01-06 21:40 | disposition home or self-care (01) ==
LOC: DL.ED 20:12
DX: R31.0 Gross hematuria (principal); E66.9 Obesity, unspecified; Z68.42 Body mass index [BMI] 45.0-49.9, adult; Z88.1 Allergy status to other antibiotic agents; Z91.030 Bee allergy status; Z88.8 Allergy status to other drugs, medicaments and biological substances; Z79.899 Other long term (current) drug therapy
CPT/HCPCS: 36415; 80053; 80305; 81001; 85025; 96374; 96375; 99284; J1170; J2405; J2930; J7030; A9270-GY

== ENCOUNTER 2020-01-07 05:20 | Emergency (ER) | payer MEDICAID ==
[~2020-01-07 05:20] MED LIST: Sodium Chloride 0.9% 1,000 ML IV ONE
[2020-01-07 05:44] LABS: ANION GAP 18.5 mEq/L (7-13); CHLORIDE,CL 102 mmol/L (98-107); SODIUM,NA 139 mmol/L (136-145)
[2020-01-07] MEDS ORDERED: HYDROmorphone 0.5 MG/0.5 ML Syringe IVPUSH ONE (05:50)
[2020-01-07] MEDS ORDERED: Ondansetron 4 MG/2 ML SDV IVPUSH ONE (05:50)
[2020-01-07] MEDS ORDERED: HYDROmorphone 1 MG/ML Syringe IVPUSH ONE ×2 (06:20→07:30)
[2020-01-07 06:29] VITALS: BP 139/75; PULSE 92
--- NOTE | 2020-01-07 07:37 | EDM.PDOC ---
ED HPI GENERAL MEDICAL PROBLEM - General Chief Complaint: Genitourinary Problem Stated Complaint: AMBULANCE Time Seen by Provider: 01/07/20 05:30 Source of Information: Reports: Patient History Limitations: Reports: No Limitations - History of Present Illness INITIAL COMMENTS - FREE TEXT/NARRATIVE: ED via [facility] with c/o left flank pain and blood in urine. No relief of pain with oxycodone. Was seen last night for same problem. Hx of henoch maegan. Left Flank Pain Score (Numeric/FACES): 9 - Related Data Allergies Allergy/AdvReac Type Severity Reaction Status Date / Time amoxicillin [Amoxicillin] Allergy Rash Verified 01/07/20 05:41 bee venom protein (honey bee) Allergy Cannot Verified 01/07/20 05:41 Remember ketorolac tromethamine Allergy Rash Verified 01/07/20 05:41 [From Toradol] metoclopramide [From Reglan] Allergy Agitation Verified 01/07/20 05:41 promethazine HCl Allergy Hallucinati Verified 01/07/20 05:41 [From Phenergan] ons tramadol HCl [From Ultram] Allergy Rash Verified 01/07/20 05:41 Home Meds: Home Meds predniSONE [Prednisone] 40 mg PO BID 08/05/19 [History] Past Medical History - Past Health History Medical/Surgical History: Denies Medical/Surgical History HEENT History: Reports: None Cardiovascular History: Reports: None Respiratory History: Reports: None Gastrointestinal History: Reports: Gastritis, GERD, Other (See Below) Other Gastrointestinal History: gallbladder pain Genitourinary History: Reports: Renal Calculus, Other (See Below) Other Genitourinary History: Vascular kidney disease Musculoskeletal History: Reports: None Neurological History: Reports: None Psychiatric History: Reports: None Endocrine/Metabolic History: Reports: Obesity/BMI 30+ Hematologic History: Reports: None Immunologic History: Reports: None Oncologic (Cancer) History: Reports: None Dermatologic History: Reports: None - Infectious Disease History Infectious Disease History: Reports: Chicken Pox - Past Surgical History Head Surgeries/Procedures: Reports: None HEENT Surgical History: Reports: None Cardiovascular Surgical History: Reports: None GI Surgical History: Reports: Appendectomy, Cholecystectomy Male Surgical History: Reports: Circumcision Other Male Surgeries/Procedures: Has had kidney biopsy Musculoskeletal Surgical History: Reports: Other (See Below) Other Musculoskeletal Surgeries/Procedures:: left arm Social & Family History - Family History Family Medical History: Noncontributory - Tobacco Use Smoking Status *Q: Never Smoker Second Hand Smoke Exposure: No - Caffeine Use Caffeine Use: Reports: Soda Caffeine Use Comment: 32 oz daily - Recreational Drug Use Recreational Drug Use: No - Living Situation & Occupation Living situation: Reports: Single, Alone Occupation: Employed ED ROS GENERAL - Review of Systems Review Of Systems: Comprehensive ROS is negative, except as noted in HPI. ED EXAM, RENAL/ - Physical Exam Exam: See Below Exam Limited By: No Limitations General Appearance: Alert, Mild Distress Eye Exam: Bilateral Eye: EOMI Ears: Normal External Exam, Normal TMs Nose: Normal Inspection Throat/Mouth: Normal Inspection Head: Atraumatic, Normocephalic Neck: Normal Inspection Respiratory/Chest: No Respiratory Distress, Lungs Clear Cardiovascular: Normal Peripheral Pulses GI/Abdominal: Normal Bowel Sounds, Soft Back Exam: CVA Tenderness (L) Extremities: Normal Inspection Neurological: Alert, Oriented, Normal Cognition Psychiatric: Normal Affect, Normal Mood Skin Exam: Warm, Dry, Intact, Tattoo(s) Course - Vital Signs Last Recorded V/S: Last Vital Signs Temp 97 F 01/07/20 05:27 Pulse 92 01/07/20 06:28 Resp 16 01/07/20 06:28 BP 139/75 01/07/20 06:28 Pulse Ox 95 01/07/20 06:28 - Orders/Labs/Meds Labs: Laboratory Tests 01/07/20 01/07/20 Range/Units 05:27 05:27 WBC 12.2 H (5.0-10.0) 10^3/uL RBC 5.62 (4.6-6.2) 10^6/uL Hgb 16.5 (14.0-18.0) g/dL Hct 47.3 (40.0-54.0) % MCV 84.2 (80-100) fL MCH 29.4 (27.0-34.0) pg MCHC 34.9 (33.0-35.0) g/dL Plt Count 342 (150-450) 10^3/uL Neut % (Auto) 89.2 H (42.2-75.2) % Lymph % (Auto) 10.1 L (20.5-50.1) % [place] % (Auto) 0.5 L (2-8) % Eos % (Auto) 0.1 L (1.0-3.0) % Baso % (Auto) 0.1 (0.0-1.0) % Add Manual Diff Yes Neutrophils % (Manual) 83 H (42-75) % Band Neutrophils % 4 % Lymphocytes % (Manual) 12 L (20-50) % Monocytes % (Manual) 1 L (2-8) % Sodium 139 (136-145) mmol/L Potassium 4.5 (3.5-5.1) mmol/L Chloride 102 (98-107) mmol/L Carbon Dioxide 23 (21-32) mmol/L Anion Gap 18.5 H (7-13) mEq/L BUN 10 (7-18) mg/dL Creatinine 1.18 (0.70-1.30) mg/dL Est Cr Clr Drug Dosing 102.30 mL/min Estimated GFR (MDRD) > 60 Glucose 161 H (74-99) mg/dL Calcium 8.6 (8.5-10.1) mg/dL Meds: Medications Discontinued Medications Generic Name Dose Route Start Last Admin Trade Name Freq PRN Reason Stop Dose Admin Hydromorphone HCl 0.5 mg 01/07/20 05:50 01/07/20 05:58 Dilaudid IVPUSH 01/07/20 05:51 0.5 mg ONETIME ONE Administration Hydromorphone HCl 1 mg 01/07/20 06:20 01/07/20 06:24 Dilaudid IVPUSH 01/07/20 06:21 1 mg ONETIME ONE Administration Hydromorphone HCl 1 mg 01/07/20 07:30 01/07/20 07:32 Dilaudid IVPUSH 01/07/20 07:31 1 mg ONETIME ONE Administration Sodium Chloride 1,000 mls @ 999 mls/hr 01/07/20 05:18 01/07/20 05:29 Normal Saline IV 01/07/20 06:18 999 mls/hr .BOLUS ONE Administration Ondansetron HCl 4 mg 01/07/20 05:50 01/07/20 05:58 Zofran IVPUSH 01/07/20 05:51 4 mg ONETIME ONE Administration - Re-Assessments/Exams Free Text/Narrative Re-Assessment/Exam: 01/07/20 07:[address] Wright accepting of patient . Tx via [facility] to [facility] Departure - Departure Time of Disposition: 07:39 Disposition: Home, Self-Care 01 Condition: Good Clinical Impression: Henoch-Ruth nlein purpura Hematuria Qualifiers: Hematuria type: unspecified type Qualified Code(s): R31.9 - Hematuria, unspecified - Discharge Information *PRESCRIPTION DRUG MONITORING PROGRAM REVIEWED*: No *COPY OF PRESCRIPTION DRUG MONITORING REPORT IN PATIENT NICO: No Forms: ED Department Discharge Sepsis Event Note - Evaluation Sepsis Screening Result: No Definite Risk - Focused Exam Date Exam was Performed: 01/08/20 Time Exam was Performed: 03:05
== END 2020-01-07 07:37 | disposition home or self-care (01) ==
LOC: DL.ED 05:20
DX: D69.0 Allergic purpura (principal); R31.9 Hematuria, unspecified; E66.9 Obesity, unspecified; Z68.44 Body mass index [BMI] 60.0-69.9, adult; Z88.1 Allergy status to other antibiotic agents; Z91.030 Bee allergy status; Z88.6 Allergy status to analgesic agent; Z88.8 Allergy status to other drugs, medicaments and biological substances; Z88.5 Allergy status to narcotic agent
CPT/HCPCS: 36415; 80048; 85025; 96374; 96375; 96376; 99285-25; J1170; J2405; J7030

== ENCOUNTER 2020-02-03 13:15 | Emergency (ER) | payer MEDICAID ==
[2020-02-03 13:56] VITALS: BP 135/75; PULSE 84
[2020-02-03] MEDS ORDERED: Ondansetron 4 MG/2 ML SDV IV ONE (14:50)
[2020-02-03] MEDS ORDERED: methylPREDNISolone Sodium Succinate 125 MG/2 ML SDV IVPUSH ONE (14:50)
[2020-02-03] MEDS ORDERED: Sodium Chloride 0.9% 10 ML Syringe FLUSH PRN (14:50)
[2020-02-03] MEDS ORDERED: HYDROmorphone 0.5 MG/0.5 ML Syringe IVPUSH ONE ×2 (14:50→15:38)
[2020-02-03] MEDS ORDERED: Sodium Chloride 0.9% 1,000 ML IV ONE (14:58)
--- NOTE | 2020-02-03 14:58 | EDM.PDOC ---
ED HPI GENERAL MEDICAL PROBLEM - General Chief Complaint: Genitourinary Problem Stated Complaint: PASSING BLOOD Time Seen by Provider: 02/03/20 14:35 Source of Information: Reports: Patient, Old Records, RN, RN Notes Reviewed History Limitations: Reports: No Limitations - History of Present Illness INITIAL COMMENTS - FREE TEXT/NARRATIVE: Pt presents to the ER with c/o bloody urine with B/L flank pain and lower abdominal cramping since Sunday night (02/01/20). Pt reports having a cystoscopy 3 weeks ago at [facility] in by Dr. Chris (urologist). Denies fever. Admits to chills and feeling dehydrated, and occasionally nauseated. Hx of HSP with recurrent gross hematuria. Onset: Gradual Onset Date: 02/01/20 Duration: Constant, Getting Worse Location: Reports: Abdomen, Back (B/L flank area), Pelvis Quality: Reports: Same as Previous Episode Severity: Severe Improves with: Reports: None Worsens with: Reports: Other (Urination) Associated Symptoms: Reports: No Other Symptoms - Related Data Allergies Allergy/AdvReac Type Severity Reaction Status Date / Time amoxicillin [Amoxicillin] Allergy Rash Verified 01/07/20 05:41 bee venom protein (honey bee) Allergy Cannot Verified 01/07/20 05:41 Remember ketorolac tromethamine Allergy Rash Verified 01/07/20 05:41 [From Toradol] metoclopramide [From Reglan] Allergy Agitation Verified 01/07/20 05:41 promethazine HCl Allergy Hallucinati Verified 01/07/20 05:41 [From Phenergan] ons tramadol HCl [From Ultram] Allergy Rash Verified 01/07/20 05:41 Home Meds: Home Meds predniSONE [Prednisone] 40 mg PO BID 08/05/19 [History] Past Medical History - Past Health History Medical/Surgical History: Denies Medical/Surgical History HEENT History: Reports: None Cardiovascular History: Reports: None Respiratory History: Reports: None Gastrointestinal History: Reports: Gastritis, GERD, Other (See Below) Other Gastrointestinal History: gallbladder pain Genitourinary History: Reports: Renal Calculus, Other (See Below) Other Genitourinary History: Vascular kidney disease Musculoskeletal History: Reports: None Neurological History: Reports: None Psychiatric History: Reports: None Endocrine/Metabolic History: Reports: Obesity/BMI 30+ Hematologic History: Reports: None Immunologic History: Reports: None Oncologic (Cancer) History: Reports: None Dermatologic History: Reports: None - Infectious Disease History Infectious Disease History: Reports: Chicken Pox - Past Surgical History Head Surgeries/Procedures: Reports: None HEENT Surgical History: Reports: None Cardiovascular Surgical History: Reports: None GI Surgical History: Reports: Appendectomy, Cholecystectomy Male Surgical History: Reports: Circumcision Other Male Surgeries/Procedures: Has had kidney biopsy Musculoskeletal Surgical History: Reports: Other (See Below) Other Musculoskeletal Surgeries/Procedures:: left arm Social & Family History - Family History Family Medical History: Noncontributory - Tobacco Use Smoking Status *Q: Never Smoker - Caffeine Use Caffeine Use: Reports: None Caffeine Use Comment: 32 oz daily - Recreational Drug Use Recreational Drug Use: No - Living Situation & Occupation Living situation: Reports: Single, Alone Occupation: Employed ED ROS GENERAL - Review of Systems Review Of Systems: Comprehensive ROS is negative, except as noted in HPI. ED EXAM, RENAL/ - Physical Exam Exam: See Below Exam Limited By: No Limitations General Appearance: Alert, No Apparent Distress, Obese Eye Exam: Bilateral Eye: Normal Inspection (No scleral icterus) Throat/Mouth: Normal Lips, Normal Voice, No Airway Compromise Head: Atraumatic, Normocephalic Neck: Normal Inspection, Non-Tender, Full Range of Motion Respiratory/Chest: No Respiratory Distress, Lungs Clear, Normal Breath Sounds, No Accessory Muscle Use, Chest Non-Tender Cardiovascular: Normal Peripheral Pulses, Regular Rate, Rhythm, No Edema, No Gallop, No JVD, No Murmur, No Rub GI/Abdominal: Normal Bowel Sounds, Soft, Non-Tender, Other (Benign obese abdomen ) (Male) Exam: Deferred Rectal (Males) Exam: Deferred Back Exam: Full Range of Motion, CVA Tenderness (L), CVA Tenderness (R). No: Vertebral Tenderness Extremities: Normal Inspection Neurological: Alert, Oriented, No Motor/Sensory Deficits Psychiatric: Normal Mood Skin Exam: Warm, Dry, Intact, Normal Color, No Rash. No: Ecchymosis, Petechiae Course - Vital Signs Last Recorded V/S: Last Vital Signs Temp 96.8 F L 02/03/20 13:40 Pulse 84 02/03/20 13:40 Resp 16 02/03/20 13:40 BP 135/75 02/03/20 13:40 Pulse Ox 99 02/03/20 13:40 - Orders/Labs/Meds Orders: Active Orders 24 hr Category Date Time Status Peripheral IV Care [RC] . DIRECTED Care 02/03/20 14:50 Active BASIC METABOLIC PANEL,BMP [CHEM] Stat Lab 02/03/20 15:05 Received CRP [C-REACTIVE PROTEIN] [CHEM] Stat Lab 02/03/20 15:05 Received Sodium Chloride 0.9% [Normal Saline] 1,000 ml Med 02/03/20 14:58 Active IV .BOLUS Sodium Chloride 0.9% [Saline Flush] Med 02/03/20 14:50 Active 10 ml FLUSH ASDIRECTED PRN Peripheral IV Insertion Adult [OM.PC] Stat Oth 02/03/20 14:50 Ordered Medication Orders Sodium Chloride (Normal Saline) 1,000 mls @ 999 mls/hr IV .BOLUS ONE Stop: 02/03/20 15:58 Last Admin: 02/03/20 15:02 Dose: 999 mls/hr Sodium Chloride (Saline Flush) 10 ml FLUSH ASDIRECTED PRN PRN Reason: Keep Vein Open Last Admin: 02/03/20 15:05 Dose: 10 ml Labs: Laboratory Tests 02/03/20 02/03/20 02/03/20 Range/Units 13:35 13:35 15:05 WBC 9.4 (5.0-10.0) 10^3/uL RBC 5.52 (4.6-6.2) 10^6/uL Hgb 16.2 (14.0-18.0) g/dL Hct 47.0 (40.0-54.0) % MCV 85.1 (80-100) fL MCH 29.3 (27.0-34.0) pg MCHC 34.5 (33.0-35.0) g/dL Plt Count 323 (150-450) 10^3/uL Neut % (Auto) 64.7 (42.2-75.2) % Lymph % (Auto) 25.4 (20.5-50.1) % Isabella % (Auto) 7.1 (2-8) % Eos % (Auto) 2.5 (1.0-3.0) % Baso % (Auto) 0.3 (0.0-1.0) % Urine Color Red (YELLOW) Urine Appearance Turbid (CLEAR) Urine pH 5.5 (5.0-9.0) Ur Specific [place] 1.025 (1.005-1.030) Urine Protein 30 H (NEGATIVE) Urine Glucose (UA) Negative (NEGATIVE) Urine Ketones Negative (NEGATIVE) Urine Occult Blood Large H (NEGATIVE) Urine Nitrite Negative (NEGATIVE) Urine Bilirubin Negative (NEGATIVE) Urine Urobilinogen 0.2 (0.2-1.0) mg/dL Ur Leukocyte Esterase Negative (NEGATIVE) Urine RBC >100 H /HPF Urine WBC 0-5 (0-5/HPF) /HPF Ur Epithelial Cells Rare (NOT SEEN) /HPF Amorphous Sediment Many (NOT SEEN) /HPF Urine Bacteria Rare (0-FEW/HPF) /HPF Urine Mucus Few H (NOT SEEN) /LPF Urine Opiates Screen Negative (NEGATIVE) Ur Oxycodone Screen Negative (NEGATIVE) Urine Methadone Screen Negative (NEGATIVE) Ur Barbiturates Screen Negative (NEGATIVE) U Tricyclic Antidepress Negative (NEGATIVE) Ur Phencyclidine Scrn Negative (NEGATIVE) Ur Amphetamine Screen Negative (NEGATIVE) U Methamphetamines Scrn Negative (NEGATIVE) Urine MDMA Screen Negative (NEGATIVE) U Benzodiazepines Scrn Negative (NEGATIVE) Urine Cocaine Screen Negative (NEGATIVE) U Marijuana (THC) Screen Positive H (NEGATIVE) Meds: Medications Generic Name Dose Route Start Last Admin Trade Name Freq PRN Reason Stop Dose Admin Sodium Chloride 1,000 mls @ 999 mls/hr 02/03/20 14:58 02/03/20 15:02 Normal Saline IV 02/03/20 15:58 999 mls/hr .BOLUS ONE Administration Sodium Chloride 10 ml 02/03/20 14:50 02/03/20 15:05 Saline Flush FLUSH 10 ml ASDIRECTED PRN Administration Keep Vein Open Discontinued Medications Generic Name Dose Route Start Last Admin Trade Name Freq PRN Reason Stop Dose Admin Hydromorphone HCl 0.5 mg 02/03/20 14:50 02/03/20 15:05 Dilaudid IVPUSH 02/03/20 14:51 0.5 mg ONETIME ONE Administration Methylprednisolone Sodium Succinate 125 mg 02/03/20 14:50 02/03/20 15:05 Solu-Medrol IVPUSH 02/03/20 14:51 125 mg ONETIME ONE Administration Ondansetron HCl 4 mg 02/03/20 14:50 02/03/20 15:02 Zofran IV 02/03/20 14:51 4 mg ONETIME ONE Administration Departure - Departure Time of Disposition: 15:45 Disposition: Home, Self-Care 01 Condition: Good Clinical Impression: Hematuria syndrome, Henoch-Schonlein purpura nephritis - Discharge Information *PRESCRIPTION DRUG MONITORING PROGRAM REVIEWED*: Yes *COPY OF PRESCRIPTION DRUG MONITORING REPORT IN PATIENT NICO: No Instructions: Hematuria, Adult, Henoch-Schonlein Purpura, Adult, Pain Medicine Instructions, [id number] Forms: ED Department Discharge Additional Instructions: Rx: Prednisone 20mg Rx: Oxycodone APAP 10mg/325mg Drink plenty of water. Follow up with Dr. Chris at [facility] this week. Sepsis Event Note (ED) - Evaluation Sepsis Screening Result: No Definite Risk - Focused Exam Vital Signs: Vital Signs Temp Pulse Resp BP Pulse Ox 02/03/20 13:40 96.8 F L 84 16 135/75 99 - My Orders Last 24 Hours: My Active Orders 02/03/20 14:50 Peripheral IV Care [RC] . DIRECTED Sodium Chloride 0.9% [Saline Flush] 10 ml FLUSH ASDIRECTED PRN Peripheral IV Insertion Adult [OM.PC] Stat 02/03/20 14:58 Sodium Chloride 0.9% [Normal Saline] 1,000 ml IV .BOLUS 02/03/20 15:05 BASIC METABOLIC PANEL,BMP [CHEM] Stat CRP [C-REACTIVE PROTEIN] [CHEM] Stat - Assessment/Plan Last 24 Hours: My Active Orders 02/03/20 14:50 Peripheral IV Care [RC] . DIRECTED Sodium Chloride 0.9% [Saline Flush] 10 ml FLUSH ASDIRECTED PRN Peripheral IV Insertion Adult [OM.PC] Stat 02/03/20 14:58 Sodium Chloride 0.9% [Normal Saline] 1,000 ml IV .BOLUS 02/03/20 15:05 BASIC METABOLIC PANEL,BMP [CHEM] Stat CRP [C-REACTIVE PROTEIN] [CHEM] Stat
[2020-02-03 15:31] LABS: ANION GAP 9.9 mEq/L (7-13); CHLORIDE,CL 105 mmol/L (98-107); SODIUM,NA 140 mmol/L (136-145)
== END 2020-02-03 15:55 | disposition home or self-care (01) ==
LOC: DL.ED 13:15
DX: D69.0 Allergic purpura (principal); E66.9 Obesity, unspecified; E86.0 Dehydration; Z68.42 Body mass index [BMI] 45.0-49.9, adult; Z90.49 Acquired absence of other specified parts of digestive tract; Z91.030 Bee allergy status; Z88.1 Allergy status to other antibiotic agents; Z79.899 Other long term (current) drug therapy; Z88.8 Allergy status to other drugs, medicaments and biological substances
CPT/HCPCS: 36415; 80048; 80305-QW; 81001; 85025; 86140; 96361; 96374; 96375; 96376; 99284-25; J1170; J2405; J2930; J7030

== ENCOUNTER 2020-03-05 08:05 | Emergency (ER) | payer MEDICAID ==
[2020-03-05 09:14] LABS: CHLORIDE,CL 105 mmol/L (98-107); SODIUM,NA 140 mmol/L (136-145)
--- NOTE | 2020-03-05 09:16 | EDM.PDOC ---
ED HPI GENERAL MEDICAL PROBLEM - General Chief Complaint: Genitourinary Problem Stated Complaint: KIDNEY PROBLEMS Time Seen by Provider: 03/05/20 08:40 Source of Information: Reports: Patient, RN History Limitations: Reports: No Limitations - History of Present Illness INITIAL COMMENTS - FREE TEXT/NARRATIVE: 29 Year old male with a PMH of chronic headaches, Henoch-Schonlein purpura, narcotic dependency and abuse present to the ER with complaints of left flank pain and worsening hematuria. He was discharged from [facility] 03/03/2020 for pain management for a perinephric hematoma after a kidney biopsy (03/01/2020). Patient reports his urine is more bloody than when he was in the hospital and pain has increased. He states he is out of his Oxycodone prescribed on 03/01 and he was not given more after his hospitalization on the 03/03. He denies any fever/chills. He is scheduled to see his PCP and nephrology in a couple of days. 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: Other (see below) (none) Left Flank Pain Score (Numeric/FACES): 9 - Related Data Allergies Allergy/AdvReac Type Severity Reaction Status Date / Time amoxicillin [Amoxicillin] Allergy Rash Verified 03/05/20 08:21 bee venom protein (honey bee) Allergy Cannot Verified 03/05/20 08:21 Remember ketorolac tromethamine Allergy Rash Verified 03/05/20 08:21 [From Toradol] metoclopramide [From Reglan] Allergy Agitation Verified 03/05/20 08:21 promethazine HCl Allergy Hallucinati Verified 03/05/20 08:21 [From Phenergan] ons tramadol HCl [From Ultram] Allergy Rash Verified 03/05/20 08:21 Past Medical History - Past Health History Medical/Surgical History: Denies Medical/Surgical History HEENT History: Reports: None Cardiovascular History: Reports: None Respiratory History: Reports: None Gastrointestinal History: Reports: Gastritis, GERD, Other (See Below) Other Gastrointestinal History: gallbladder pain Genitourinary History: Reports: Renal Calculus, Other (See Below) Other Genitourinary History: Vascular kidney disease Musculoskeletal History: Reports: None Neurological History: Reports: None Psychiatric History: Reports: None Endocrine/Metabolic History: Reports: Obesity/BMI 30+ Hematologic History: Reports: None Immunologic History: Reports: None Oncologic (Cancer) History: Reports: None Dermatologic History: Reports: None - Infectious Disease History Infectious Disease History: Reports: Chicken Pox - Past Surgical History Head Surgeries/Procedures: Reports: None HEENT Surgical History: Reports: None Cardiovascular Surgical History: Reports: None GI Surgical History: Reports: Appendectomy, Cholecystectomy Male Surgical History: Reports: Circumcision Other Male Surgeries/Procedures: Has had kidney biopsy Musculoskeletal Surgical History: Reports: Other (See Below) Other Musculoskeletal Surgeries/Procedures:: left arm Social & Family History - Family History Family Medical History: Noncontributory - Tobacco Use Smoking Status *Q: Never Smoker Second Hand Smoke Exposure: No - Caffeine Use Caffeine Use: Reports: None Caffeine Use Comment: 32 oz daily - Recreational Drug Use Recreational Drug Use: No - Living Situation & Occupation Living situation: Reports: Single, Alone Occupation: Employed ED ROS GENERAL - Review of Systems Review Of Systems: See Below Respiratory: Reports: No Symptoms Cardiovascular: Reports: No Symptoms Endocrine: Reports: No Symptoms GI/Abdominal: Reports: No Symptoms : Reports: Flank Pain (left), Hematuria Musculoskeletal: Reports: No Symptoms Skin: Reports: No Symptoms Neurological: Reports: No Symptoms Psychiatric: Reports: Anxiety Hematologic/Lymphatic: Reports: No Symptoms ED EXAM, RENAL/ - Physical Exam Exam: See Below Exam Limited By: No Limitations General Appearance: Alert, Moderate Distress, Obese Respiratory/Chest: No Respiratory Distress, Lungs Clear, Normal Breath Sounds, No Accessory Muscle Use, Chest Non-Tender Cardiovascular: Normal Peripheral Pulses, Regular Rate, Rhythm, No Edema, No Gallop, No Murmur GI/Abdominal: Normal Bowel Sounds, Soft Back Exam: CVA Tenderness (L) Extremities: Normal Capillary Refill Neurological: Alert, Oriented, Normal Cognition Psychiatric: Anxious Skin Exam: Warm, Intact, Wound/Incision (bandaid noted on the left flank area, clean/dry/intact ) Lymphatic: No Adenopathy Course - Vital Signs Last Recorded V/S: Last Vital Signs Temp 97.0 F 03/05/20 08:14 Pulse 81 03/05/20 08:14 Resp 18 03/05/20 08:14 BP 129/76 03/05/20 08:14 Pulse Ox 100 03/05/20 08:14 - Orders/Labs/Meds Orders: Active Orders 24 hr Category Date Time Status CBC WITH AUTO DIFF [HEME] Stat Lab 03/05/20 08:42 Ordered CMP [COMPREHENSIVE METABOLIC PN,CMP] [CHEM] Stat Lab 03/05/20 08:42 Ordered UA RFX MARGARITA AND CULT IF INDIC [URIN] Urgent Lab 03/05/20 08:18 Ordered - Re-Assessments/Exams Free Text/Narrative Re-Assessment/Exam: 29 year old male who presents to the ER with Flant pain. Had a kidney biopsy on 03/01 and was hoospitalized for pain management of a hermatoma on left flank on 03/01 and discharged on 03/03. He is in the ER with complaints of increased blood in urine and also for pain management. He is scheduled to see Nephrology after this visit. Lab results and urine analysis were reviewed with patient. He was given I tab of oxycodone [address] abdomen stating he will be meeting with nephrology later in the day. Patient requested discharged. Symptoms to return to the ER reviewed with patient. He verbalized understanding. Departure - Departure Time of Disposition: 09:42 Disposition: Home, Self-Care 01 Condition: Fair Clinical Impression: Left flank pain, Flank pain - Discharge Information Instructions: Flank Pain, Adult, [id number] Additional Instructions: Follow up with Nephrology as schedule after this visit. Patient verbalized understanding. Sepsis Event Note (ED) - Evaluation Sepsis Screening Result: No Definite Risk - Focused Exam Vital Signs: Vital Signs Temp Pulse Resp BP Pulse Ox 03/05/20 08:14 97.0 F 81 18 129/76 100 - My Orders Last 24 Hours: My Active Orders 03/05/20 08:18 UA RFX MARGARITA AND CULT IF INDIC [URIN] Urgent 03/05/20 08:42 CBC WITH AUTO DIFF [HEME] Stat CMP [COMPREHENSIVE METABOLIC PN,CMP] [CHEM] Stat - Assessment/Plan Last 24 Hours: My Active Orders 03/05/20 08:18 UA RFX MARGARITA AND CULT IF INDIC [URIN] Urgent 03/05/20 08:42 CBC WITH AUTO DIFF [HEME] Stat CMP [COMPREHENSIVE METABOLIC PN,CMP] [CHEM] Stat
[2020-03-05] MEDS ORDERED: oxyCODONE 5 MG Tab PO ONE (09:18)
[2020-03-05 09:28] VITALS: BP 121/69; PULSE 71
== END 2020-03-05 09:48 | disposition home or self-care (01) ==
LOC: DL.ED 08:05
DX: R10.9 Unspecified abdominal pain (principal); E66.9 Obesity, unspecified; Z68.41 Body mass index [BMI] 40.0-44.9, adult; Z88.1 Allergy status to other antibiotic agents; Z91.030 Bee allergy status; Z88.6 Allergy status to analgesic agent; Z88.5 Allergy status to narcotic agent; Z88.8 Allergy status to other drugs, medicaments and biological substances
CPT/HCPCS: 36415; 80053; 81001; 85025; 99284; A9270; 99283

== ENCOUNTER 2020-04-02 15:09 | Emergency (ER) | payer MEDICAID ==
[2020-04-02] MEDS ORDERED: Sodium Chloride 0.9% 10 ML Syringe FLUSH PRN (15:20)
--- NOTE | 2020-04-02 15:20 | EDM.PDOC ---
ED HPI GENERAL MEDICAL PROBLEM - General Chief Complaint: Flank Pain Stated Complaint: KIDNEY PROBLEM PER PT Time Seen by Provider: 04/02/20 15:20 Source of Information: Reports: Patient, Old Records, RN, RN Notes Reviewed History Limitations: Reports: No Limitations - History of Present Illness INITIAL COMMENTS - FREE TEXT/NARRATIVE: Pt had L kidney Bx approximately one month ago and was diagnosed with "loin pain hematuria syndrome". Pt c/o passing blood in urine and left flank pain over the past couple days. Unable to get into see nephrology until next Sunday. Pt called clinic today and was told to go to the ER. Onset: Gradual Duration: Constant Location: Reports: Other (Left flank) Quality: Reports: Same as Previous Episode Severity: Severe Improves with: Reports: None Worsens with: Reports: None Associated Symptoms: Reports: No Other Symptoms Left Lower Back Pain Score (Numeric/FACES): 8 - Related Data Allergies Allergy/AdvReac Type Severity Reaction Status Date / Time amoxicillin [Amoxicillin] Allergy Rash Verified 04/02/20 15:21 bee venom protein (honey bee) Allergy Cannot Verified 04/02/20 15:21 Remember ketorolac tromethamine Allergy Rash Verified 04/02/20 15:21 [From Toradol] metoclopramide [From Reglan] Allergy Agitation Verified 04/02/20 15:21 promethazine HCl Allergy Hallucinati Verified 04/02/20 15:21 [From Phenergan] ons tramadol HCl [From Ultram] Allergy Rash Verified 04/02/20 15:21 Home Meds: Home Meds Losartan [Cozaar] 25 mg PO DAILY 04/02/20 [History] Past Medical History - Past Health History Medical/Surgical History: Denies Medical/Surgical History HEENT History: Reports: None Cardiovascular History: Reports: None Respiratory History: Reports: None Gastrointestinal History: Reports: Gastritis, GERD, Other (See Below) Other Gastrointestinal History: gallbladder pain Genitourinary History: Reports: Renal Calculus, Other (See Below) (Loin pain hematuria syndrome.) Other Genitourinary History: Vascular kidney disease Musculoskeletal History: Reports: None Neurological History: Reports: None Psychiatric History: Reports: None Endocrine/Metabolic History: Reports: Obesity/BMI 30+ Hematologic History: Reports: None Immunologic History: Reports: None Oncologic (Cancer) History: Reports: None Dermatologic History: Reports: None - Infectious Disease History Infectious Disease History: Reports: Chicken Pox - Past Surgical History Head Surgeries/Procedures: Reports: None HEENT Surgical History: Reports: None Cardiovascular Surgical History: Reports: None GI Surgical History: Reports: Appendectomy, Cholecystectomy Male Surgical History: Reports: Circumcision Other Male Surgeries/Procedures: Has had kidney biopsy Musculoskeletal Surgical History: Reports: Other (See Below) Other Musculoskeletal Surgeries/Procedures:: left arm Social & Family History - Family History Family Medical History: Noncontributory - Caffeine Use Caffeine Use: Reports: None Caffeine Use Comment: 32 oz daily - Living Situation & Occupation Living situation: Reports: Single, Alone Occupation: Employed ED ROS GENERAL - Review of Systems Review Of Systems: Comprehensive ROS is negative, except as noted in HPI. ED EXAM, RENAL/ - Physical Exam Exam: See Below Exam Limited By: No Limitations General Appearance: Alert, No Apparent Distress, Obese Eye Exam: Bilateral Eye: Normal Inspection (No scleral icterus) Nose: Normal Inspection, No Blood Throat/Mouth: Normal Inspection, Normal Lips, Normal Voice, No Airway Compromise Head: Atraumatic, Normocephalic Neck: Normal Inspection Respiratory/Chest: No Respiratory Distress, Lungs Clear, Normal Breath Sounds, No Accessory Muscle Use, Chest Non-Tender Cardiovascular: Regular Rate, Rhythm, No Edema GI/Abdominal: Normal Bowel Sounds, Soft, Non-Tender, Other (Benign obese abdom en) Back Exam: Full Range of Motion, CVA Tenderness (L). No: CVA Tenderness (R), Vertebral Tenderness Extremities: Normal Inspection, No Pedal Edema. No: Joint Swelling Neurological: Alert, Oriented, No Motor/Sensory Deficits Psychiatric: Normal Mood Skin Exam: Warm, Dry, Normal Color, No Rash Course - Vital Signs Last Recorded V/S: Last Vital Signs Temp 96.2 F L 04/02/20 15:21 Pulse 76 04/02/20 15:21 Resp 20 04/02/20 15:21 BP 127/67 04/02/20 15:21 Pulse Ox 99 04/02/20 15:21 - Orders/Labs/Meds Orders: Active Orders 24 hr Category Date Time Status Peripheral IV Care [RC] . DIRECTED Care 04/02/20 15:20 Active CULTURE URINE [RM] Stat Lab 04/02/20 16:08 Received UA W/MICROSCOPIC [URIN] Stat Lab 04/02/20 16:08 Results Sodium Chloride 0.9% [Saline Flush] Med 04/02/20 15:20 Active 10 ml FLUSH ASDIRECTED PRN Peripheral IV Insertion Adult [OM.PC] Stat Oth 04/02/20 15:20 Ordered Medication Orders Sodium Chloride (Saline Flush) 10 ml FLUSH ASDIRECTED PRN PRN Reason: Keep Vein Open Labs: Laboratory Tests 04/02/20 04/02/20 04/02/20 Range/Units 15:44 15:44 16:08 WBC 11.7 H (5.0-10.0) 10^3/uL RBC 5.51 (4.6-6.2) 10^6/uL Hgb 16.1 (14.0-18.0) g/dL Hct 47.4 (40.0-54.0) % MCV 86.0 (80-100) fL MCH 29.2 (27.0-34.0) pg MCHC 34.0 (33.0-35.0) g/dL Plt Count 330 (150-450) 10^3/uL Neut % (Auto) 66.9 (42.2-75.2) % Lymph % (Auto) 24.5 (20.5-50.1) % [place] % (Auto) 6.4 (2-8) % Eos % (Auto) 1.9 (1.0-3.0) % Baso % (Auto) 0.3 (0.0-1.0) % Sodium 139 (136-145) mmol/L Potassium 4.2 (3.5-5.1) mmol/L Chloride 104 (98-107) mmol/L Carbon Dioxide 28 (21-32) mmol/L Anion Gap 11.2 (7-13) mEq/L BUN 14 (7-18) mg/dL Creatinine 1.05 (0.70-1.30) mg/dL Est Cr Clr Drug Dosing 114.96 mL/min Estimated GFR (MDRD) > 60 Glucose 99 (74-99) mg/dL Calcium 8.7 (8.5-10.1) mg/dL Urine Color Red (YELLOW) Urine Appearance Slightly cloudy (CLEAR) Urine pH 7.0 (5.0-9.0) Ur Specific [place] 1.025 (1.005-1.030) Urine Protein Trace H (NEGATIVE) Urine Glucose (UA) Negative (NEGATIVE) Urine Ketones Negative (NEGATIVE) Urine Occult Blood Large H (NEGATIVE) Urine Nitrite Negative (NEGATIVE) Urine Bilirubin Negative (NEGATIVE) Urine Urobilinogen 0.2 (0.2-1.0) mg/dL Ur Leukocyte Esterase Trace H (NEGATIVE) Urine Opiates Screen (NEGATIVE) Ur Oxycodone Screen (NEGATIVE) Urine Methadone Screen (NEGATIVE) Ur Barbiturates Screen (NEGATIVE) U Tricyclic Antidepress (NEGATIVE) Ur Phencyclidine Scrn (NEGATIVE) Ur Amphetamine Screen (NEGATIVE) U Methamphetamines Scrn (NEGATIVE) Urine MDMA Screen (NEGATIVE) U Benzodiazepines Scrn (NEGATIVE) Urine Cocaine Screen (NEGATIVE) U Marijuana (THC) Screen (NEGATIVE) 04/02/20 Range/Units 16:08 WBC (5.0-10.0) 10^3/uL RBC (4.6-6.2) 10^6/uL Hgb (14.0-18.0) g/dL Hct (40.0-54.0) % MCV (80-100) fL MCH (27.0-34.0) pg MCHC (33.0-35.0) g/dL Plt Count (150-450) 10^3/uL Neut % (Auto) (42.2-75.2) % Lymph % (Auto) (20.5-50.1) % [place] % (Auto) (2-8) % Eos % (Auto) (1.0-3.0) % Baso % (Auto) (0.0-1.0) % Sodium (136-145) mmol/L Potassium (3.5-5.1) mmol/L Chloride (98-107) mmol/L Carbon Dioxide (21-32) mmol/L Anion Gap (7-13) mEq/L BUN (7-18) mg/dL Creatinine (0.70-1.30) mg/dL Est Cr Clr Drug Dosing mL/min Estimated GFR (MDRD) Glucose (74-99) mg/dL Calcium (8.5-10.1) mg/dL Urine Color (YELLOW) Urine Appearance (CLEAR) Urine pH (5.0-9.0) Ur Specific [place] (1.005-1.030) Urine Protein (NEGATIVE) Urine Glucose (UA) (NEGATIVE) Urine Ketones (NEGATIVE) Urine Occult Blood (NEGATIVE) Urine Nitrite (NEGATIVE) Urine Bilirubin (NEGATIVE) Urine Urobilinogen (0.2-1.0) mg/dL Ur Leukocyte Esterase (NEGATIVE) Urine Opiates Screen Negative (NEGATIVE) Ur Oxycodone Screen Negative (NEGATIVE) Urine Methadone Screen Negative (NEGATIVE) Ur Barbiturates Screen Negative (NEGATIVE) U Tricyclic Antidepress Negative (NEGATIVE) Ur Phencyclidine Scrn Negative (NEGATIVE) Ur Amphetamine Screen Negative (NEGATIVE) U Methamphetamines Scrn Negative (NEGATIVE) Urine MDMA Screen Negative (NEGATIVE) U Benzodiazepines Scrn Negative (NEGATIVE) Urine Cocaine Screen Negative (NEGATIVE) U Marijuana (THC) Screen Positive H (NEGATIVE) Meds: Medications Generic Name Dose Route Start Last Admin Trade Name Freq PRN Reason Stop Dose Admin Sodium Chloride 10 ml 04/02/20 15:20 Saline Flush FLUSH ASDIRECTED PRN Keep Vein Open Discontinued Medications Generic Name Dose Route Start Last Admin Trade Name Freq PRN Reason Stop Dose Admin Hydromorphone HCl 2 mg 04/02/20 15:49 Dilaudid IM 04/02/20 15:50 ONETIME ONE Ondansetron HCl 4 mg 04/02/20 15:50 04/02/20 16:25 Zofran Odt PO 04/02/20 15:51 4 mg ONETIME ONE Administration Departure - Departure Time of Disposition: 16:27 Disposition: Home, Self-Care 01 Condition: Good Clinical Impression: Loin pain hematuria syndrome, History of Henoch-Schonlein purpura - Discharge Information *PRESCRIPTION DRUG MONITORING PROGRAM REVIEWED*: No *COPY OF PRESCRIPTION DRUG MONITORING REPORT IN PATIENT NICO: No Instructions: Hematuria, Adult Forms: ED Department Discharge Additional Instructions: Rx: Oxycodone 10mg Drink plenty of water. Follow up with scientific recruiter or Dr. Faria next week. Sepsis Event Note (ED) - Evaluation Sepsis Screening Result: No Definite Risk - Focused Exam Vital Signs: Vital Signs Temp Pulse Resp BP Pulse Ox 04/02/20 15:21 96.2 F L 76 20 127/67 99 - My Orders Last 24 Hours: My Active Orders 04/02/20 15:20 Peripheral IV Care [RC] . DIRECTED Sodium Chloride 0.9% [Saline Flush] 10 ml FLUSH ASDIRECTED PRN Peripheral IV Insertion Adult [OM.PC] Stat 04/02/20 16:08 CULTURE URINE [RM] Stat UA W/MICROSCOPIC [URIN] Stat - Assessment/Plan Last 24 Hours: My Active Orders 04/02/20 15:20 Peripheral IV Care [RC] . DIRECTED Sodium Chloride 0.9% [Saline Flush] 10 ml FLUSH ASDIRECTED PRN Peripheral IV Insertion Adult [OM.PC] Stat 04/02/20 16:08 CULTURE URINE [RM] Stat UA W/MICROSCOPIC [URIN] Stat
[2020-04-02] MEDS ORDERED: HYDROmorphone 1 MG/ML Syringe IM ONE (15:49)
[2020-04-02] MEDS ORDERED: Ondansetron 4 MG Tab.DIS PO ONE (15:50)
[2020-04-02 16:18] LABS: ANION GAP 11.2 mEq/L (7-13); CHLORIDE,CL 104 mmol/L (98-107); SODIUM,NA 139 mmol/L (136-145)
[2020-04-02 16:29] VITALS: BP 145/86; PULSE 82
== END 2020-04-02 17:10 | disposition home or self-care (01) ==
LOC: DL.ED 15:09
DX: R31.9 Hematuria, unspecified (principal); K21.9 Gastro-esophageal reflux disease without esophagitis; E66.9 Obesity, unspecified; I15.0 Renovascular hypertension; Z68.42 Body mass index [BMI] 45.0-49.9, adult; Z86.2 Personal history of diseases of the blood and blood-forming organs and certain disorders involving the immune mechanism; Z88.1 Allergy status to other antibiotic agents; Z88.6 Allergy status to analgesic agent; Z88.8 Allergy status to other drugs, medicaments and biological substances; Z91.030 Bee allergy status; Z79.899 Other long term (current) drug therapy; Z90.49 Acquired absence of other specified parts of digestive tract; Z90.89 Acquired absence of other organs
CPT/HCPCS: 36415; 80048; 80305-QW; 81001; 85025; 87086; 96372; 99284; A9270-GY; J1170

== ENCOUNTER 2020-05-04 12:55 | Emergency (ER) | payer MEDICAID ==
[2020-05-04] MEDS ORDERED: HYDROmorphone 1 MG/ML Syringe IM ONE (13:06)
[2020-05-04] MEDS ORDERED: Ondansetron 4 MG Tab.DIS PO ONE (13:06)
--- NOTE | 2020-05-04 13:08 | EDM.PDOC ---
ED HPI GENERAL MEDICAL PROBLEM - General Chief Complaint: Genitourinary Problem Stated Complaint: PASSING BLOOD Time Seen by Provider: 05/04/20 13:07 Source of Information: Reports: Patient, Old Records, RN, RN Notes Reviewed History Limitations: Reports: No Limitations - History of Present Illness INITIAL COMMENTS - FREE TEXT/NARRATIVE: Pt had left kidney Bx approximately two months ago and was diagnosed with "loin pain hematuria syndrome". Pt c/o passing blood in urine and left flank pain over the past couple days. Pt called clinic today and was told to go to the ER. Denies fever, chills, or dysuria. Onset: Gradual Duration: Week(s): (1), Chronic, Recurring Location: Reports: Other (Flank) Quality: Reports: Same as Previous Episode Severity: Severe Improves with: Reports: None Worsens with: Reports: None Associated Symptoms: Reports: No Other Symptoms Pelvic Pain Score (Numeric/FACES): 8 - Related Data Allergies Allergy/AdvReac Type Severity Reaction Status Date / Time amoxicillin [Amoxicillin] Allergy Rash Verified 05/04/20 13:06 bee venom protein (honey bee) Allergy Cannot Verified 05/04/20 13:06 Remember ketorolac tromethamine Allergy Rash Verified 05/04/20 13:06 [From Toradol] metoclopramide [From Reglan] Allergy Agitation Verified 05/04/20 13:06 promethazine HCl Allergy Hallucinati Verified 05/04/20 13:06 [From Phenergan] ons tramadol HCl [From Ultram] Allergy Rash Verified 05/04/20 13:06 Home Meds: Home Meds Losartan [Cozaar] 25 mg PO DAILY 04/02/20 [History] Past Medical History - Past Health History Medical/Surgical History: Denies Medical/Surgical History HEENT History: Reports: None Cardiovascular History: Reports: None Respiratory History: Reports: None Gastrointestinal History: Reports: Gastritis, GERD, Other (See Below) Other Gastrointestinal History: gallbladder pain Genitourinary History: Reports: Renal Calculus, Other (See Below) (Loin pain hematuria syndrome.) Other Genitourinary History: Vascular kidney disease Musculoskeletal History: Reports: None Neurological History: Reports: None Psychiatric History: Reports: None Endocrine/Metabolic History: Reports: Obesity/BMI 30+ Hematologic History: Reports: None Immunologic History: Reports: None Oncologic (Cancer) History: Reports: None Dermatologic History: Reports: None - Infectious Disease History Infectious Disease History: Reports: Chicken Pox - Past Surgical History Head Surgeries/Procedures: Reports: None HEENT Surgical History: Reports: None Cardiovascular Surgical History: Reports: None GI Surgical History: Reports: Appendectomy, Cholecystectomy Male Surgical History: Reports: Circumcision Other Male Surgeries/Procedures: Has had kidney biopsy Musculoskeletal Surgical History: Reports: Other (See Below) Other Musculoskeletal Surgeries/Procedures:: left arm Social & Family History - Family History Family Medical History: Noncontributory - Caffeine Use Caffeine Use: Reports: None Caffeine Use Comment: 32 oz daily - Living Situation & Occupation Living situation: Reports: Single, Alone Occupation: Employed ED ROS GENERAL - Review of Systems Review Of Systems: Comprehensive ROS is negative, except as noted in HPI. ED EXAM, RENAL/ - Physical Exam Exam: See Below Exam Limited By: No Limitations General Appearance: Alert, WD/WN, No Apparent Distress, Obese Head: Atraumatic, Normocephalic Neck: Normal Inspection Respiratory/Chest: No Respiratory Distress, Lungs Clear, Normal Breath Sounds, No Accessory Muscle Use, Chest Non-Tender Cardiovascular: Regular Rate, Rhythm, No Edema GI/Abdominal: Normal Bowel Sounds, Soft, Tender (LLQ, mild) (Male) Exam: Deferred Rectal (Males) Exam: Deferred Back Exam: Full Range of Motion, CVA Tenderness (L). No: CVA Tenderness (R), Vertebral Tenderness Extremities: Normal Inspection Neurological: Alert, Oriented, No Motor/Sensory Deficits Psychiatric: Normal Mood Skin Exam: Warm, Dry, Intact, Normal Color, No Rash. No: Ecchymosis, Jaundice, Petechiae, Rash Course - Vital Signs Last Recorded V/S: Last Vital Signs Temp 98.5 F 05/04/20 13:07 Pulse 78 05/04/20 13:07 Resp 16 05/04/20 13:07 BP 157/89 H 05/04/20 13:07 Pulse Ox 100 05/04/20 13:07 - Orders/Labs/Meds Orders: Active Orders 24 hr Category Date Time Status UA W/MICROSCOPIC [URIN] Stat Lab 05/04/20 13:08 Results Labs: Laboratory Tests 05/04/20 Range/Units 13:08 Urine Color Red (YELLOW) Urine Appearance Turbid (CLEAR) Urine pH 5.5 (5.0-9.0) Ur Specific [place] 1.025 (1.005-1.030) Urine Protein 100 H (NEGATIVE) Urine Glucose (UA) Negative (NEGATIVE) Urine Ketones Trace H (NEGATIVE) Urine Occult Blood Large H (NEGATIVE) Urine Nitrite Negative (NEGATIVE) Urine Bilirubin Small H (NEGATIVE) Urine Urobilinogen 1.0 (0.2-1.0) mg/dL Ur Leukocyte Esterase Negative (NEGATIVE) Meds: Medications Discontinued Medications Generic Name Dose Route Start Last Admin Trade Name Chavo PRN Reason Stop Dose Admin Hydromorphone HCl 2 mg 05/04/20 13:06 05/04/20 13:15 Dilaudid IM 05/04/20 13:07 2 mg ONETIME ONE Administration Ondansetron HCl 4 mg 05/04/20 13:06 05/04/20 13:15 Zofran Odt PO 05/04/20 13:07 4 mg ONETIME ONE Administration - Re-Assessments/Exams Free Text/Narrative Re-Assessment/Exam: 05/04/20 14:[address] Faria, pt's PCP. Dr. Faria agrees to provide pain management for the pt and will sent Rx to pharmacy, and agrees to follow the anticipated chronic/recurring episodes in clinic in the future. Departure - Departure Time of Disposition: 14:18 Disposition: Home, Self-Care 01 Condition: Good Clinical Impression: Loin pain hematuria syndrome, History of Henoch-Schonlein purpura - Discharge Information *PRESCRIPTION DRUG MONITORING PROGRAM REVIEWED*: No *COPY OF PRESCRIPTION DRUG MONITORING REPORT IN PATIENT NICO: No Instructions: Hematuria, Adult Forms: ED Department Discharge Additional Instructions: Drink plenty of water. Dr. Faria has sent a prescription to pharmacy for pain control. Follow up in clinic if not improving as expected or if any new symptoms develop. Sepsis Event Note (ED) - Focused Exam Vital Signs: Vital Signs Temp Pulse Resp BP Pulse Ox 05/04/20 13:07 98.5 F 78 16 157/89 H 100 - My Orders Last 24 Hours: My Active Orders 05/04/20 13:08 UA W/MICROSCOPIC [URIN] Stat - Assessment/Plan Last 24 Hours: My Active Orders 05/04/20 13:08 UA W/MICROSCOPIC [URIN] Stat
[2020-05-04 13:09] VITALS: BP 157/89; PULSE 78
== END 2020-05-04 14:25 | disposition home or self-care (01) ==
LOC: DL.ED 12:55
DX: R31.9 Hematuria, unspecified (principal); E66.9 Obesity, unspecified; Z68.42 Body mass index [BMI] 45.0-49.9, adult; Z86.2 Personal history of diseases of the blood and blood-forming organs and certain disorders involving the immune mechanism; Z88.1 Allergy status to other antibiotic agents; Z91.030 Bee allergy status; Z88.6 Allergy status to analgesic agent; Z88.8 Allergy status to other drugs, medicaments and biological substances; Z79.899 Other long term (current) drug therapy
CPT/HCPCS: 81001; 96372; 99284; A9270; J1170

== ENCOUNTER 2020-05-06 09:21 | Emergency (ER) | payer MEDICAID ==
[2020-05-06 09:36] VITALS: BP 132/79; PULSE 70
[2020-05-06] MEDS ORDERED: HYDROmorphone 1 MG/ML Syringe IM ONE (09:45)
[2020-05-06] MEDS ORDERED: Ondansetron 4 MG Tab.DIS PO ONE (09:46)
--- NOTE | 2020-05-06 09:47 | EDM.PDOC ---
ED HPI GENERAL MEDICAL PROBLEM - General Chief Complaint: Genitourinary Problem Stated Complaint: PASSING BLOOD Time Seen by Provider: 05/06/20 09:46 Source of Information: Reports: Patient, Old Records, RN, RN Notes Reviewed History Limitations: Reports: No Limitations - History of Present Illness INITIAL COMMENTS - FREE TEXT/NARRATIVE: Pt presents to ER with c/o continued left flank pain with gross hematuria and clots in his urine. He now has additional c/o of suprapubic discomfort with sensation of bladder spasms. Denies fever, chills, or painful urination. Pt has Hx of remote HSP and recently was diagnosed with 'Loin pain hematuria syndrome' by his urologist following a kidney biopsy. I discussed the pt's case with his PCP Dr. Faria on 05/04/20 to facilitate management of this chronic/recurrent condition from clinic rather than having him present repeatedly to the ER as the pt had tried to go to clinic but was directed to the ER by a clinic nurse. Dr. Faria agreed and provided a prescription for a pain medication to the pt's pharmacy, and agreed that the pt would be most appropriately managed in the clinic setting. Today the pt state he tried to f/u in clinic and was again directed by a college of education dean to go to the ER. Pt expresses frustration that he feels the clinic does not want to see him. He states he has taken the pain medication exactly as prescribed and is now out of medicine. Duration: Chronic, Recurring Location: Reports: Other (Flank, ) Quality: Reports: Same as Previous Episode Severity: Severe Improves with: Reports: None Worsens with: Reports: None Associated Symptoms: Reports: No Other Symptoms Treatments [employer] SUPERVISOR: Reports: Other Medication(s) Left Flank Pain Score (Numeric/FACES): 7 - Related Data Allergies Allergy/AdvReac Type Severity Reaction Status Date / Time amoxicillin [Amoxicillin] Allergy Rash Verified 05/06/20 09:35 bee venom protein (honey bee) Allergy Cannot Verified 05/06/20 09:35 Remember ketorolac tromethamine Allergy Rash Verified 05/06/20 09:35 [From Toradol] metoclopramide [From Reglan] Allergy Agitation Verified 05/06/20 09:35 promethazine HCl Allergy Hallucinati Verified 05/06/20 09:35 [From Phenergan] ons tramadol HCl [From Ultram] Allergy Rash Verified 05/06/20 09:35 Home Meds: Home Meds Losartan [Cozaar] 25 mg PO DAILY 04/02/20 [History] Past Medical History - Past Health History Medical/Surgical History: Denies Medical/Surgical History HEENT History: Reports: None Cardiovascular History: Reports: None Respiratory History: Reports: None Gastrointestinal History: Reports: Gastritis, GERD, Other (See Below) Other Gastrointestinal History: gallbladder pain Genitourinary History: Reports: Renal Calculus, Other (See Below) (HSP with 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 Musculoskeletal History: Reports: None Neurological History: Reports: None Psychiatric History: Reports: None Endocrine/Metabolic History: Reports: Obesity/BMI 30+ Hematologic History: Reports: None Immunologic History: Reports: None Oncologic (Cancer) History: Reports: None Dermatologic History: Reports: None - Infectious Disease History Infectious Disease History: Reports: Chicken Pox - Past Surgical History Head Surgeries/Procedures: Reports: None HEENT Surgical History: Reports: None Cardiovascular Surgical History: Reports: None GI Surgical History: Reports: Appendectomy, Cholecystectomy Male Surgical History: Reports: Circumcision Other Male Surgeries/Procedures: Has had kidney biopsy Musculoskeletal Surgical History: Reports: Other (See Below) Other Musculoskeletal Surgeries/Procedures:: left arm Social & Family History - Family History Family Medical History: Noncontributory - Tobacco Use Years of Tobacco use: 9 Packs/Tins Daily: 0.5 Second Hand Smoke Exposure: No - Caffeine Use Caffeine Use: Reports: Coffee Caffeine Use Comment: 32 oz daily - Recreational Drug Use Recreational Drug Use: No - Living Situation & Occupation Living situation: Reports: Single, Alone Occupation: Employed ED ROS GENERAL - Review of Systems Review Of Systems: Comprehensive ROS is negative, except as noted in HPI. ED EXAM, RENAL/ - Physical Exam Exam: See Below Exam Limited By: No Limitations General Appearance: Alert, Obese. No: Active Emesis Throat/Mouth: Normal Voice, No Airway Compromise Head: Atraumatic, Normocephalic Respiratory/Chest: No Respiratory Distress Cardiovascular: Regular Rate, Rhythm GI/Abdominal: Normal Bowel Sounds, Soft, Non-Tender Back Exam: Full Range of Motion, CVA Tenderness (L). No: CVA Tenderness (R), Vertebral Tenderness Extremities: Normal Inspection Neurological: Alert, Oriented, No Motor/Sensory Deficits Psychiatric: Normal Affect, Normal Mood Skin Exam: Warm, Dry, Intact, Normal Color, No Rash Course - Vital Signs Last Recorded V/S: Last Vital Signs Temp 97.4 F 05/06/20 09:32 Pulse 70 05/06/20 09:32 Resp 16 05/06/20 09:32 BP 132/79 05/06/20 09:32 Pulse Ox 99 05/06/20 09:32 - Orders/Labs/Meds Meds: Medications Discontinued Medications Generic Name Dose Route Start Last Admin Trade Name Chavo PRN Reason Stop Dose Admin Hydromorphone HCl 2 mg 05/06/20 09:45 05/06/20 10:01 Dilaudid IM 05/06/20 09:46 2 mg ONETIME ONE Administration Ondansetron HCl 4 mg 05/06/20 09:46 05/06/20 10:01 Zofran Odt PO 05/06/20 09:47 4 mg ONETIME ONE Administration Phenazopyridine HCl 190 mg 05/06/20 09:50 05/06/20 10:01 Urinary Pain Relief PO 05/06/20 09:51 190 mg ONETIME ONE Administration Departure - Departure Time of Disposition: 10:20 Disposition: Home, Self-Care 01 Condition: Good Clinical Impression: Loin pain hematuria syndrome, History of Henoch-Schonlein purpura - Discharge Information *PRESCRIPTION DRUG MONITORING PROGRAM REVIEWED*: Yes *COPY OF PRESCRIPTION DRUG MONITORING REPORT IN PATIENT NICO: Yes Instructions: Flank Pain, Adult, [id number], Hematuria, Adult Forms: ED Department Discharge Additional Instructions: Drink plenty of water. Follow up with Dr. Faria tomorrow at 10:30AM as scheduled. Dr. Faria has sent a prescription refill to the [facility] for you today. Follow up with your urologist. Sepsis Event Note (ED) - Evaluation Sepsis Screening Result: No Definite Risk - Focused Exam Vital Signs: Vital Signs Temp Pulse Resp BP Pulse Ox 05/06/20 09:32 97.4 F 70 16 132/79 99
[2020-05-06] MEDS ORDERED: Phenazopyridine 95 MG Tab PO ONE (09:50)
== END 2020-05-06 10:39 | disposition home or self-care (01) ==
LOC: DL.ED 09:21
DX: R31.9 Hematuria, unspecified (principal); R10.9 Unspecified abdominal pain; F17.210 Nicotine dependence, cigarettes, uncomplicated; E66.9 Obesity, unspecified; Z68.42 Body mass index [BMI] 45.0-49.9, adult; Z86.2 Personal history of diseases of the blood and blood-forming organs and certain disorders involving the immune mechanism; Z88.1 Allergy status to other antibiotic agents; Z91.030 Bee allergy status; Z88.6 Allergy status to analgesic agent; Z88.8 Allergy status to other drugs, medicaments and biological substances; Z88.5 Allergy status to narcotic agent; Z79.899 Other long term (current) drug therapy
CPT/HCPCS: 96372; 99283; A9270; J1170

== ENCOUNTER 2020-05-09 15:23 | Emergency (ER) | payer MEDICAID ==
[2020-05-09 15:44] VITALS: BP 126/74; PULSE 81
--- NOTE | 2020-05-09 15:44 | EDM.PDOC ---
ED HPI GENERAL MEDICAL PROBLEM - General Stated Complaint: LEFT FLANK PAIN, HURTS TO WALK, PASSING BLOOD Time Seen by Provider: 05/09/20 15:38 Source of Information: Reports: Patient History Limitations: Reports: No Limitations - History of Present Illness INITIAL COMMENTS - FREE TEXT/NARRATIVE: Patient comes emergency department today with complaints of chronic left flank pain. This patient is well-known to the emergency department and was just here 3 days ago with his chronic left flank pain. 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 He did receive a prescription of Percocet 10/325 on the from his primary care provider that he was instructed to follow-up with his chronic pain multiple times out of the emergency department. He has been taking his oxycodone he says it does nothing for the pain. The pain is severe on the left side. It is colicky stabbing pain that is intermittent. He has had this worsening pain over the past week. He does state that he has had gross hematuria as well. No fever no chills. No nausea or vomiting. No dysuria or urinary frequency. No other abdominal pain. No cough shortness of breath or chest pain. No COVID exposure no COVID symptoms. Left Flank Pain Score (Numeric/FACES): 9 - Related Data Allergies Allergy/AdvReac Type Severity Reaction Status Date / Time amoxicillin [Amoxicillin] Allergy Rash Verified 05/09/20 15:44 bee venom protein (honey bee) Allergy Cannot Verified 05/09/20 15:44 Remember ketorolac tromethamine Allergy Rash Verified 05/09/20 15:44 [From Toradol] metoclopramide [From Reglan] Allergy Agitation Verified 05/09/20 15:44 promethazine HCl Allergy Hallucinati Verified 05/09/20 15:44 [From Phenergan] ons tramadol HCl [From Ultram] Allergy Rash Verified 05/09/20 15:44 Home Meds: Home Meds Losartan [Cozaar] 25 mg PO DAILY 04/02/20 [History] oxyCODONE HCl [Oxycodone HCL] 10 mg PO Q6H PRN 05/09/20 [History] Past Medical History - Past Health History Medical/Surgical History: Denies Medical/Surgical History HEENT History: Reports: None Cardiovascular History: Reports: None Respiratory History: Reports: None Gastrointestinal History: Reports: Gastritis, GERD, Other (See Below) Other Gastrointestinal History: gallbladder pain Genitourinary History: Reports: Renal Calculus, Other (See Below) (HSP with 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 Musculoskeletal History: Reports: None Neurological History: Reports: None Psychiatric History: Reports: None Endocrine/Metabolic History: Reports: Obesity/BMI 30+ Hematologic History: Reports: None Immunologic History: Reports: None Oncologic (Cancer) History: Reports: None Dermatologic History: Reports: None - Infectious Disease History Infectious Disease History: Reports: Chicken Pox - Past Surgical History Head Surgeries/Procedures: Reports: None HEENT Surgical History: Reports: None Cardiovascular Surgical History: Reports: None GI Surgical History: Reports: Appendectomy, Cholecystectomy Male Surgical History: Reports: Circumcision Other Male Surgeries/Procedures: Has had kidney biopsy Musculoskeletal Surgical History: Reports: Other (See Below) Other Musculoskeletal Surgeries/Procedures:: left arm Social & Family History - Family History Family Medical History: Noncontributory - Caffeine Use Caffeine Use: Reports: Coffee Caffeine Use Comment: 32 oz daily - Living Situation & Occupation Living situation: Reports: Single, Alone Occupation: Employed ED ROS GENERAL - Review of Systems Review Of Systems: Comprehensive ROS is negative, except as noted in HPI. ED EXAM, RENAL/ - Physical Exam Exam: See Below Exam Limited By: No Limitations General Appearance: Alert, WD/WN, No Apparent Distress, Obese Eye Exam: Bilateral Eye: EOMI, PERRL Ears: Normal External Exam Nose: Normal Inspection Throat/Mouth: Normal Inspection Head: Atraumatic, Normocephalic Neck: Normal Inspection, Supple, Non-Tender Respiratory/Chest: No Respiratory Distress, Lungs Clear, Normal Breath Sounds, No Accessory Muscle Use, Chest Non-Tender Cardiovascular: Normal Peripheral Pulses, Regular Rate, Rhythm GI/Abdominal: Normal Bowel Sounds, Soft, Non-Tender (Male) Exam: Deferred Rectal (Males) Exam: Deferred Back Exam: Full Range of Motion, CVA Tenderness (L), CVA Tenderness (R). No: Normal Inspection (With even the lightest touch of the finger to each of his CVA regions the patient jumps and moans in pain.), Decreased Range of Motion, Muscle Spasm, Paraspinal Tenderness, Vertebral Tenderness Extremities: Normal Inspection, Normal Range of Motion, Non-Tender, Normal Capillary Refill Neurological: Alert, Oriented, No Motor/Sensory Deficits Psychiatric: Normal Affect, Normal Mood Skin Exam: Warm, Dry, Intact, Normal Color Lymphatic: No Adenopathy Course - Vital Signs Last Recorded V/S: Last Vital Signs Temp 97.6 F 05/09/20 15:40 Pulse 81 05/09/20 15:40 Resp 16 05/09/20 15:40 BP 126/74 05/09/20 15:40 Pulse Ox 100 05/09/20 15:40 - Orders/Labs/Meds Orders: Active Orders 24 hr Category Date Time Status Abdomen Pelvis wo Cont [CT] Urgent Exams 05/09/20 15:37 Taken BASIC METABOLIC PANEL,BMP [CHEM] Stat Lab 05/09/20 15:37 Ordered CBC WITH AUTO DIFF [HEME] Stat Lab 05/09/20 15:37 Ordered DRUG SCREEN URINE BIORAD [URCHEM] Stat Lab 05/09/20 15:38 Ordered UA RFX MARGARITA AND CULT IF INDIC [URIN] Stat Lab 05/09/20 15:38 Ordered - Re-Assessments/Exams Free Text/Narrative Re-Assessment/Exam: 05/09/20 15:48 I did review the patient's PDMP as well as his recent ER visits. It has been clearly explained to the patient that his chronic pain management is NOT to be managed out of the ED. He received 10 tablets of Percocet / on 05-07-20 from his PCP Natasha Buckley. The patient was raising his voice with the nurses and telling them to "make sure the [facility] doctor knows what he is doing". With my exam I explained to the patient that i would like to ensure that he does not have any acute pathology going on today with loin pain hematuria it is not uncommon for them to develop kidney stones. I would like to do a CT scan and labs and a urine. The patient did allow the CT scan although is refusing the labs and the urine. "Just give me something for the fucking pain white boy" he states. I informed him that he has been told multiple times and most recently on 04/02/20, 05/04/20, 05/06/20 in the emergency department that his chronic pain concerns are to be managed in the Clinic. I want to make sure that he has nothing acute causing the increase in his pain and symptoms over the past week. He called this provider "a dari faggot and just a stupid dari brown nurse practitioner". I informed him that his demeanor and behavior is not warranted at this time and it is inappropriate. I do not manage chronic pain out of the emergency department as national standards guide this as a standard of care. I would like to ensure that he is not having any acute medical conditions that may be causing his worsening pain. He refuses the lab and UA and stood up very easily in no distress and left the facility on his own. No CT reports no labs no UA. No discussion of AMA was held with this patient as I feared for my safety and the safety of others around due to the patient verbal abusiveness. I am more than willing to assess the patient for any acute pathology although I am unable to due to his abusive demeanor leaving AMA. Departure - Departure Time of Disposition: 16:00 Disposition: Against Medical Advice 07 Clinical Impression: Loin pain hematuria syndrome, Henoch-Schonlein purpura nephritis Chronic pain Qualifiers: Chronic pain type: other chronic pain Qualified Code(s): G89.29 - Other chronic pain - Discharge Information Additional Instructions: Unable to complete discharge AMA or directions as the patient left AMA. Sepsis Event Note (ED) - Focused Exam Vital Signs: Vital Signs Temp Pulse Resp BP Pulse Ox 05/09/20 15:40 97.6 F 81 16 126/74 100 - My Orders Last 24 Hours: My Active Orders 05/09/20 15:37 Abdomen Pelvis wo Cont [CT] Urgent BASIC METABOLIC PANEL,BMP [CHEM] Stat CBC WITH AUTO DIFF [HEME] Stat 05/09/20 15:38 DRUG SCREEN URINE BIORAD [URCHEM] Stat UA RFX MARGARITA AND CULT IF INDIC [URIN] Stat - Assessment/Plan Last 24 Hours: My Active Orders 05/09/20 15:37 Abdomen Pelvis wo Cont [CT] Urgent BASIC METABOLIC PANEL,BMP [CHEM] Stat CBC WITH AUTO DIFF [HEME] Stat 05/09/20 15:38 DRUG SCREEN URINE BIORAD [URCHEM] Stat UA RFX MARGARITA AND CULT IF INDIC [URIN] Stat
--- NOTE | 2020-05-09 16:03 | CT ---
PROCEDURE INFORMATION: Exam: CT Abdomen And Pelvis Without Contrast Exam date and time: 05/09/2020 3:45 PM Age: 29 years old Clinical indication: Abdominal pain; Flank; Left; Additional info: Worsening flank pain. HX loin pain hematuria ? ston TECHNIQUE: Imaging protocol: Computed tomography of the abdomen and pelvis without contrast. Radiation optimization: All CT scans at this facility use at least one of these dose optimization techniques: automated exposure control; mA and/or kV adjustment per patient size (includes targeted exams where dose is matched to clinical indication); or iterative reconstruction. COMPARISON: CT Abdomen Pelvis wo Cont 09/06/2019 1:59 AM FINDINGS: Liver: Normal. No mass. Gallbladder and bile ducts: Cholecystectomy. Pancreas: Fatty pancreas. Spleen: Normal. No splenomegaly. Adrenals: Normal. No mass. Kidneys and ureters: No obstructive renal stones. No hydronephrosis. Stomach and bowel: Unremarkable. No obstruction. No mucosal thickening. Appendix: Appendectomy. Intraperitoneal space: Unremarkable. No free air. No significant fluid collection. Vasculature: Unremarkable. No abdominal aortic aneurysm. Lymph nodes: Unremarkable. No enlarged lymph nodes. Bladder: No bladder stones. No bladder wall thickening. Reproductive: Unremarkable as visualized. Bones/joints: Bilateral pars defects at L5 with no associated listhesis. Soft tissues: Unremarkable. IMPRESSION: No significant abnormality.
== END 2020-05-09 16:01 | disposition left against medical advice (07) ==
LOC: DL.ED 15:23
DX: M54.5 Low back pain (principal); G89.29 Other chronic pain; R31.9 Hematuria, unspecified; D69.0 Allergic purpura; E66.9 Obesity, unspecified; Z68.42 Body mass index [BMI] 45.0-49.9, adult; Z88.1 Allergy status to other antibiotic agents; Z91.030 Bee allergy status; Z88.5 Allergy status to narcotic agent; Z88.8 Allergy status to other drugs, medicaments and biological substances; Z79.899 Other long term (current) drug therapy
CPT/HCPCS: 74176; 99284-25

== ENCOUNTER 2020-05-30 13:00 | Emergency (ER) | payer MEDICAID ==
[2020-05-30 13:15] VITALS: BP 131/81; PULSE 64
[2020-05-30] MEDS ORDERED: HYDROmorphone 1 MG/ML Syringe IM ONE (13:55)
--- NOTE | 2020-05-30 13:55 | EDM.PDOC ---
<Jovan Villaseñor - Last Filed: 05/30/20 14:32> ED HPI GENERAL MEDICAL PROBLEM - General Chief Complaint: Genitourinary Problem Stated Complaint: Flank pain, hematuria Time Seen by Provider: 05/30/20 13:35 - Related Data Allergies Allergy/AdvReac Type Severity Reaction Status Date / Time amoxicillin [Amoxicillin] Allergy Rash Verified 05/30/20 13:11 bee venom protein (honey bee) Allergy Cannot Verified 05/30/20 13:11 Remember ketorolac tromethamine Allergy Rash Verified 05/30/20 13:11 [From Toradol] metoclopramide [From Reglan] Allergy Agitation Verified 05/30/20 13:11 promethazine HCl Allergy Hallucinati Verified 05/30/20 13:11 [From Phenergan] ons tramadol HCl [From Ultram] Allergy Rash Verified 05/30/20 13:11 Home Meds: Home Meds Losartan [Cozaar] 25 mg PO DAILY 04/02/20 [History] oxyCODONE HCl [Oxycodone HCL] 10 mg PO Q6H PRN 05/09/20 [History] Tamsulosin HCl [Flomax] 0.4 mg PO DAILY 05/30/20 [History] oxyCODONE HCl/Acetaminophen [Oxycodone-Acetaminophen 5-325] 1 each PO Q6H PRN #2 tablet 05/30/20 [Rx] Course - Re-Assessments/Exams Free Text/Narrative Re-Assessment/Exam: 05/30/20 14:32 I saw and evaluated the patient. Discussed with resident and agree with residents findings and plan as documented in the residents note. Departure - Departure Disposition: Home, Self-Care 01 Clinical Impression: Loin pain hematuria syndrome - Discharge Information Prescriptions: oxyCODONE HCl/Acetaminophen [Oxycodone-Acetaminophen 5-325] 1 each PO Q6H PRN #2 tablet PRN Reason: Pain Forms: ED Department Discharge Additional Instructions: Follow up with your primary care physician in the morning for refill of your pain medication. Continue to drink lots of fluids. <Remy Mtz - Last Filed: 05/30/20 14:53> ED HPI GENERAL MEDICAL PROBLEM - General Source of Information: Reports: Patient History Limitations: Reports: No Limitations - History of Present Illness INITIAL COMMENTS - FREE TEXT/NARRATIVE: Patient is a 30 y/o male who presents ambulatory to the ED c/o bilateral flank pain and blood in the urine. Patient has a history of loin-pain hematuria syndrome, and has a long history of recurrent episodes of flank pain. He reports onset of this episode about two weeks ago. Pain was initially located left flank, started at a tolerable level on an intermittent basis, but has worsened. On Sunday of this week he started having flank pain on the right side, which is not typical of a pain flare for him. It became unbearable today prompting his visit to the ED. He rates his pain at 9/10 at present. There is some radiation to the low abdomen, he reports feeling some lower abdominal pressure. He is also experiencing blood in the urine, which is typical for this type of flair. He has been having some associated chills, sweats, and nausea. Duration: Chronic, Intermittent Severity: Severe Bilateral Flank Pain Score (Numeric/FACES): 9 Past Medical History - Past Health History Medical/Surgical History: Denies Medical/Surgical History HEENT History: Reports: None Cardiovascular History: Reports: None Respiratory History: Reports: None Gastrointestinal History: Reports: Gastritis, GERD, Other (See Below) Other Gastrointestinal History: gallbladder pain Genitourinary History: Reports: Renal Calculus, Other (See Below) Other Genitourinary History: Vascular kidney disease Musculoskeletal History: Reports: None Neurological History: Reports: None Psychiatric History: Reports: None Endocrine/Metabolic History: Reports: Obesity/BMI 30+ Hematologic History: Reports: None Immunologic History: Reports: None Oncologic (Cancer) History: Reports: None Dermatologic History: Reports: None - Infectious Disease History Infectious Disease History: Reports: None - Past Surgical History Head Surgeries/Procedures: Reports: None HEENT Surgical History: Reports: None Cardiovascular Surgical History: Reports: None GI Surgical History: Reports: Appendectomy, Cholecystectomy Male Surgical History: Reports: Circumcision Other Male Surgeries/Procedures: Has had kidney biopsy Musculoskeletal Surgical History: Reports: Other (See Below) Other Musculoskeletal Surgeries/Procedures:: left arm Social & Family History - Family History Family Medical History: Noncontributory - Caffeine Use Caffeine Use: Reports: Coffee Caffeine Use Comment: 32 oz daily - Recreational Drug Use Recreational Drug Use: No - Living Situation & Occupation Living situation: Reports: Single, Alone Occupation: Employed ED ROS GENERAL - Review of Systems Review Of Systems: See Below ED EXAM, RENAL/ - Physical Exam Exam: See Below Exam Limited By: No Limitations General Appearance: Alert, WD/WN, Mild Distress Eye Exam: Bilateral Eye: Normal Inspection Ears: Normal External Exam, Hearing Grossly Normal Nose: Normal Inspection Throat/Mouth: Normal Voice, No Airway Compromise Head: Atraumatic, Normocephalic Respiratory/Chest: No Respiratory Distress, Lungs Clear, Normal Breath Sounds, No Accessory Muscle Use Cardiovascular: Normal Peripheral Pulses, Regular Rate, Rhythm, No Edema, No Gallop, No Murmur, No Rub GI/Abdominal: Soft, Non-Tender, No Distention Back Exam: Normal Inspection, CVA Tenderness (L), CVA Tenderness (R) Extremities: Normal Inspection, Non-Tender, No Pedal Edema Neurological: Alert, Oriented, Normal Cognition Psychiatric: Normal Affect, Normal Mood Skin Exam: Warm, Dry Course - Vital Signs Last Recorded V/S: Last Vital Signs Temp 97.1 F 05/30/20 13:12 Pulse 64 05/30/20 13:12 Resp 18 05/30/20 13:12 BP 131/81 05/30/20 13:12 Pulse Ox 100 05/30/20 13:12 - Orders/Labs/Meds Orders: Active Orders 24 hr Category Date Time Status CULTURE URINE [RM] Stat Lab 05/30/20 13:44 Received Labs: Laboratory Tests 05/30/20 05/30/20 05/30/20 Range/Units 13:44 14:03 14:03 WBC 8.2 (5.0-10.0) 10^3/uL RBC 5.30 (4.6-6.2) 10^6/uL Hgb 15.7 (14.0-18.0) g/dL Hct 45.1 (40.0-54.0) % MCV 85.1 (80-100) fL MCH 29.6 (27.0-34.0) pg MCHC 34.8 (33.0-35.0) g/dL Plt Count 261 (150-450) 10^3/uL Neut % (Auto) 60.8 (42.2-75.2) % Lymph % (Auto) 29.2 (20.5-50.1) % [place] % (Auto) 7.0 (2-8) % Eos % (Auto) 2.6 (1.0-3.0) % Baso % (Auto) 0.4 (0.0-1.0) % Sodium 141 (136-145) mmol/L Potassium 4.1 (3.5-5.1) mmol/L Chloride 105 (98-107) mmol/L Carbon Dioxide 26 (21-32) mmol/L Anion Gap 14.1 H (7-13) mEq/L BUN 11 (7-18) mg/dL Creatinine 0.82 (0.70-1.30) mg/dL Est Cr Clr Drug Dosing 145.89 mL/min Estimated GFR (MDRD) > 60 BUN/Creatinine Ratio 13.4 (No establ ref range) Glucose 92 (74-99) mg/dL Calcium 8.5 (8.5-10.1) mg/dL Total Bilirubin 0.4 (0.2-1.0) mg/dL AST 13 L (15-37) U/L ALT 32 (16-63) U/L Alkaline Phosphatase 81 (46-116) U/L Total Protein 7.5 (6.4-8.2) g/dL Albumin 3.9 (3.4-5.0) g/dL Globulin 3.6 Albumin/Globulin Ratio 1.1 Urine Color Vanessa (YELLOW) Urine Appearance Turbid (CLEAR) Urine pH 5.5 (5.0-9.0) Ur Specific Noble >= 1.030 (1.005-1.030) Urine Protein 30 H (NEGATIVE) Urine Glucose (UA) Negative (NEGATIVE) Urine Ketones Trace H (NEGATIVE) Urine Occult Blood Large H (NEGATIVE) Urine Nitrite Negative (NEGATIVE) Urine Bilirubin Small H (NEGATIVE) Urine Urobilinogen 0.2 (0.2-1.0) mg/dL Ur Leukocyte Esterase Small H (NEGATIVE) Urine RBC >100 H /HPF Urine WBC 0-5 (0-5/HPF) /HPF Ur Epithelial Cells Few (NOT SEEN) /HPF Amorphous Sediment Occasional (NOT SEEN) /HPF Urine Bacteria Few (0-FEW/HPF) /HPF Urine Mucus Occasional (NOT SEEN) /LPF Urinalysis Comment Meds: Medications Discontinued Medications Generic Name Dose Route Start Last Admin Trade Name Freq PRN Reason Stop Dose Admin Hydromorphone HCl 2 mg 05/30/20 13:55 05/30/20 14:09 Dilaudid IM 05/30/20 13:56 2 mg ONETIME ONE Administration - Re-Assessments/Exams Free Text/Narrative Re-Assessment/Exam: 05/30/20 14:44 Patient re-evaluated following IM administration of Dilaudid. Discussed lab results, showing hematuria with no sign of kidney dysfunction or infection. He reports good relief of his pain following Dilaudid. Pain is still present but manageable. He does not have any pain medications at home. Discussed that per agreement with his PCP we are not able to provide refills of pain medication from the emergency department. Patient voices concern for pain severity and unbearability. Provided Rx for two tabs of oxycodone 5-325 for use today until he can contact his PCP in the morning. Discussed his plans for consult with interventional pain management for more correction solutions to this syndrome. Recommended aggressive oral hydration. Follow up with PCP and pain clinic as scheduled. Return to ED with any concerns. He voices understanding and agreement with the plan. Departure - Departure Time of Disposition: 14:36 Condition: Fair - Discharge Information *PRESCRIPTION DRUG MONITORING PROGRAM REVIEWED*: Yes *COPY OF PRESCRIPTION DRUG MONITORING REPORT IN PATIENT NICO: No Sepsis Event Note (ED) - Evaluation Sepsis Screening Result: No Definite Risk - Focused Exam Vital Signs: Vital Signs Temp Pulse Resp BP Pulse Ox 05/30/20 13:12 97.1 F 64 18 131/81 100 - Problem List Review Problem List Initiated/Reviewed/Updated: Yes - My Orders Last 24 Hours: My Active Orders 05/30/20 13:44 CULTURE URINE [RM] Stat - Assessment/Plan Last 24 Hours: My Active Orders 05/30/20 13:44 CULTURE URINE [RM] Stat Assessment:: Acute flare of loin-pain hematuria syndrome. No evidence of infection or acute renal failure. Plan: Pain management with IM Dilaudid. Short term prescription of oxycodone for use until patient can contact his PCP.
[2020-05-30 14:26] LABS: ANION GAP 14.1 mEq/L (7-13); CHLORIDE,CL 105 mmol/L (98-107); SODIUM,NA 141 mmol/L (136-145)
== END 2020-05-30 14:51 | disposition home or self-care (01) ==
LOC: DL.ED 13:00
DX: M54.5 Low back pain (principal); R31.9 Hematuria, unspecified; E66.9 Obesity, unspecified; Z68.42 Body mass index [BMI] 45.0-49.9, adult; Z90.49 Acquired absence of other specified parts of digestive tract; Z88.1 Allergy status to other antibiotic agents; Z91.030 Bee allergy status; Z88.8 Allergy status to other drugs, medicaments and biological substances; Z88.5 Allergy status to narcotic agent; Z79.899 Other long term (current) drug therapy
CPT/HCPCS: 36415; 80053; 81001; 85025; 87086; 96372; 99284; J1170; 99283

== ENCOUNTER 2020-05-31 06:42 | Emergency (ER) | payer MEDICAID ==
[2020-05-31 06:59] VITALS: BP 132/79; PULSE 73
[2020-05-31] MEDS ORDERED: HYDROmorphone 1 MG/ML Syringe IM ONE (07:08)
--- NOTE | 2020-05-31 07:08 | EDM.PDOC ---
ED HPI GENERAL MEDICAL PROBLEM - General Chief Complaint: Flank Pain Stated Complaint: KIDNEY PROBLEMS?? Time Seen by Provider: 05/31/20 07:07 Source of Information: Reports: Patient, Old Records, RN, RN Notes Reviewed History Limitations: Reports: No Limitations - History of Present Illness INITIAL COMMENTS - FREE TEXT/NARRATIVE: Pt with c/o B/L flank pain and gross hematuria. 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 Pt is following with urology and nephrology at [facility] in and states he is being referred for a type of nerve block to the kidney which is supposed to stop the pain. I have spoke with the pt's urologist in the recent past and was advised that this is a chronically recurring condition that will periodically require pain control. I have also spoke with Dr. Faria, the pt's PCP is aware of the pt's condition and agrees that all outpatient pain prescribing will be from her through the clinic. Today the pt denies any new symptoms such as fever, or urinary retention. He states he has an appointment will his specialist on Sunday of this week. Duration: Chronic, Recurring Location: Reports: Other (Flank) Quality: Reports: Same as Previous Episode Severity: Severe Improves with: Reports: None Worsens with: Reports: None Associated Symptoms: Reports: No Other Symptoms Treatments RN ASSESSMENT: Reports: Other Medication(s) Bilateral Flank Pain Score (Numeric/FACES): 9 - Related Data Allergies Allergy/AdvReac Type Severity Reaction Status Date / Time amoxicillin [Amoxicillin] Allergy Rash Verified 05/30/20 13:11 bee venom protein (honey bee) Allergy Cannot Verified 05/30/20 13:11 Remember ketorolac tromethamine Allergy Rash Verified 05/30/20 13:11 [From Toradol] metoclopramide [From Reglan] Allergy Agitation Verified 05/30/20 13:11 promethazine HCl Allergy Hallucinati Verified 05/30/20 13:11 [From Phenergan] ons tramadol HCl [From Ultram] Allergy Rash Verified 05/30/20 13:11 Home Meds: Home Meds Losartan [Cozaar] 25 mg PO DAILY 04/02/20 [History] oxyCODONE HCl [Oxycodone HCL] 10 mg PO Q6H PRN 05/09/20 [History] Tamsulosin HCl [Flomax] 0.4 mg PO DAILY 05/30/20 [History] oxyCODONE HCl/Acetaminophen [Oxycodone-Acetaminophen 5-325] 1 each PO Q6H PRN #2 tablet 05/30/20 [Rx] Past Medical History - Past Health History Medical/Surgical History: Denies Medical/Surgical History HEENT History: Reports: None Cardiovascular History: Reports: None Respiratory History: Reports: None Gastrointestinal History: Reports: Gastritis, GERD, Other (See Below) Other Gastrointestinal History: gallbladder pain Genitourinary History: Reports: Renal Calculus, Other (See Below) Other Genitourinary History: Vascular kidney disease Musculoskeletal History: Reports: None Neurological History: Reports: None Psychiatric History: Reports: None Endocrine/Metabolic History: Reports: Obesity/BMI 30+ Hematologic History: Reports: None Immunologic History: Reports: None Oncologic (Cancer) History: Reports: None Dermatologic History: Reports: None - Infectious Disease History Infectious Disease History: Reports: None - Past Surgical History Head Surgeries/Procedures: Reports: None HEENT Surgical History: Reports: None Cardiovascular Surgical History: Reports: None GI Surgical History: Reports: Appendectomy, Cholecystectomy Male Surgical History: Reports: Circumcision Other Male Surgeries/Procedures: Has had kidney biopsy Musculoskeletal Surgical History: Reports: Other (See Below) Other Musculoskeletal Surgeries/Procedures:: left arm Social & Family History - Family History Family Medical History: Noncontributory - Tobacco Use Smoking Status *Q: Never Smoker Second Hand Smoke Exposure: No - Caffeine Use Caffeine Use: Reports: Coffee Caffeine Use Comment: 32 oz daily - Recreational Drug Use Recreational Drug Use: No - Living Situation & Occupation Living situation: Reports: Single, Alone Occupation: Employed ED ROS GENERAL - Review of Systems Review Of Systems: Comprehensive ROS is negative, except as noted in HPI. ED EXAM, RENAL/ - Physical Exam Exam: See Below Exam Limited By: No Limitations General Appearance: Alert, No Apparent Distress, Obese, Other (Uncomfortable appearing). No: Active Emesis Throat/Mouth: Normal Voice, No Airway Compromise Head: Atraumatic, Normocephalic Respiratory/Chest: No Respiratory Distress Cardiovascular: Regular Rate, Rhythm GI/Abdominal: Normal Bowel Sounds, Soft, Non-Tender, Other (Benign obese abdomen) (Male) Exam: Deferred Rectal (Males) Exam: Deferred Back Exam: Full Range of Motion, CVA Tenderness (L), CVA Tenderness (R). No: Vertebral Tenderness Extremities: Normal Inspection Neurological: Alert, Oriented, No Motor/Sensory Deficits Psychiatric: Normal Mood Skin Exam: Warm, Dry, Intact, Normal Color, No Rash. No: Diaphoretic, Ecchymosis, Jaundice, Petechiae, Rash Course - Vital Signs Last Recorded V/S: Last Vital Signs Temp 96.4 F L 05/31/20 06:46 Pulse 73 05/31/20 06:46 Resp 18 05/31/20 06:46 BP 132/79 05/31/20 06:46 Pulse Ox 99 05/31/20 06:46 - Orders/Labs/Meds Meds: Medications Discontinued Medications Generic Name Dose Route Start Last Admin Trade Name Karthikeyanq PRN Reason Stop Dose Admin Hydromorphone HCl 2 mg 05/31/20 07:08 Dilaudid IM 05/31/20 07:09 ONETIME ONE Methylprednisolone Sodium Succinate 125 mg 05/31/20 07:10 Solu-Medrol IM 05/31/20 07:11 ONETIME ONE - Re-Assessments/Exams Free Text/Narrative Re-Assessment/Exam: 05/31/20 07:21 Pt has been off of steroid tx for flare ups this year, but states that the prednisone burst tx's seemed to be the only thing that reduced the frequency of the flare ups in the past, and he would like to have a steroid Rx due to the severity of this episode. Departure - Departure Time of Disposition: 07:24 Disposition: Home, Self-Care 01 Condition: Fair Clinical Impression: Loin pain hematuria syndrome - Discharge Information *PRESCRIPTION DRUG MONITORING PROGRAM REVIEWED*: No *COPY OF PRESCRIPTION DRUG MONITORING REPORT IN PATIENT NICO: No Instructions: Flank Pain, Adult, [id number] Forms: ED Department Discharge Additional Instructions: Rx: Prednisone 20mg Follow in clinic with Dr. Faria for pain management prescribing. Follow up with your specialist as planned. Drink plenty of water. Sepsis Event Note (ED) - Evaluation Sepsis Screening Result: No Definite Risk - Focused Exam Vital Signs: Vital Signs Temp Pulse Resp BP Pulse Ox 05/31/20 06:46 96.4 F L 73 18 132/79 99
[2020-05-31] MEDS ORDERED: methylPREDNISolone Sodium Succinate 125 MG/2 ML SDV IM ONE (07:10)
== END 2020-05-31 08:05 | disposition home or self-care (01) ==
LOC: DL.ED 06:42
DX: N39.8 Other specified disorders of urinary system (principal); E66.9 Obesity, unspecified; Z68.42 Body mass index [BMI] 45.0-49.9, adult; Z88.1 Allergy status to other antibiotic agents; Z91.030 Bee allergy status; Z88.6 Allergy status to analgesic agent; Z88.8 Allergy status to other drugs, medicaments and biological substances; Z88.5 Allergy status to narcotic agent; Z79.899 Other long term (current) drug therapy
CPT/HCPCS: 99283; J1170; J2930; 96372

== ENCOUNTER 2020-06-01 00:29 | Emergency (ER) | payer MEDICAID ==
[2020-06-01 00:42] VITALS: BP 153/79; PULSE 87
[2020-06-01] MEDS ORDERED: Ondansetron 4 MG/2 ML SDV IVPUSH ONE (00:49)
[2020-06-01] MEDS ORDERED: HYDROmorphone 1 MG/ML Syringe IVPUSH ONE ×2 (00:49→01:38)
--- NOTE | 2020-06-01 01:05 | EDM.PDOC ---
ED HPI GENERAL MEDICAL PROBLEM - General Chief Complaint: Genitourinary Problem Stated Complaint: BLOOD IN URINE Time Seen by Provider: 06/01/20 00:50 Source of Information: Reports: Patient History Limitations: Reports: No Limitations - History of Present Illness INITIAL COMMENTS - FREE TEXT/NARRATIVE: This 30 yo male patient reports to the ED with increased lower flank and lower abdominal pain. The patient reports he has been seen multiple times for similar symptoms. The patient has recently been diagnosed with Loin Pain Hematuria Syndrome (LPHS) by a urologist in [place]. The patient has follow-up appointments in [place] this Sunday for continued evaluation and further management. The patient was seen 05/31/20 in the ED, given IV Dilaudid and IV Steroids. The patient was also prescribed steroids for outpatient treatment. The patient has been running all pain medication prescriptions through Dr. Faria's office for better understanding and management of care. The patient has been advised to come to the ED for any episodes of breakthrough pain. The patient reports he was at home watching TV when his symptoms started. The patient did take oral Zofran (2199) and Oxycodone (1899) with little to no symptom relief. Onset Date: 05/31/20 Onset Time: 22:00 Duration: Constant Location: Reports: Abdomen, Back Quality: Reports: Ache, Sharp, Stabbing Severity: Severe Improves with: Reports: None Worsens with: Reports: None Context: Reports: Other Associated Symptoms: Reports: No Other Symptoms - Related Data Allergies Allergy/AdvReac Type Severity Reaction Status Date / Time amoxicillin [Amoxicillin] Allergy Rash Verified 06/01/20 00:40 bee venom protein (honey bee) Allergy Cannot Verified 06/01/20 00:40 Remember ketorolac tromethamine Allergy Rash Verified 06/01/20 00:40 [From Toradol] metoclopramide [From Reglan] Allergy Agitation Verified 06/01/20 00:40 promethazine HCl Allergy Hallucinati Verified 06/01/20 00:40 [From Phenergan] ons tramadol HCl [From Ultram] Allergy Rash Verified 06/01/20 00:40 Home Meds: Home Meds Losartan [Cozaar] 25 mg PO DAILY 04/02/20 [History] oxyCODONE HCl [Oxycodone HCL] 10 mg PO Q6H PRN 05/09/20 [History] Tamsulosin HCl [Flomax] 0.4 mg PO DAILY 05/30/20 [History] oxyCODONE HCl/Acetaminophen [Oxycodone-Acetaminophen 5-325] 1 each PO Q6H PRN #2 tablet 05/30/20 [Rx] Past Medical History - Past Health History Medical/Surgical History: Denies Medical/Surgical History HEENT History: Reports: None Cardiovascular History: Reports: None Respiratory History: Reports: None Gastrointestinal History: Reports: Gastritis, GERD, Other (See Below) Other Gastrointestinal History: gallbladder pain Genitourinary History: Reports: Renal Calculus, Other (See Below) Other Genitourinary History: Vascular kidney disease Musculoskeletal History: Reports: None Neurological History: Reports: None Psychiatric History: Reports: None, Addiction Endocrine/Metabolic History: Reports: Obesity/BMI 30+ Hematologic History: Reports: None Immunologic History: Reports: None Oncologic (Cancer) History: Reports: None Dermatologic History: Reports: None - Infectious Disease History Infectious Disease History: Reports: None - Past Surgical History Head Surgeries/Procedures: Reports: None HEENT Surgical History: Reports: None Cardiovascular Surgical History: Reports: None GI Surgical History: Reports: Appendectomy, Cholecystectomy Male Surgical History: Reports: Circumcision Other Male Surgeries/Procedures: Has had kidney biopsy Musculoskeletal Surgical History: Reports: Other (See Below) Other Musculoskeletal Surgeries/Procedures:: left arm Social & Family History - Family History Family Medical History: Noncontributory - Tobacco Use Smoking Status *Q: Current Status Unknown Second Hand Smoke Exposure: No - Caffeine Use Caffeine Use: Reports: Soda Caffeine Use Comment: 32 oz daily - Recreational Drug Use Recreational Drug Use: No - Living Situation & Occupation Living situation: Reports: Single, Alone Occupation: Employed ED ROS GENERAL - Review of Systems Review Of Systems: Comprehensive ROS is negative, except as noted in HPI. ED EXAM, RENAL/ - Physical Exam Exam: See Below Exam Limited By: No Limitations General Appearance: Alert, WD/WN, Moderate Distress, Obese Eye Exam: Bilateral Eye: EOMI, Normal Inspection, PERRL Ears: Normal External Exam, Normal Canal, Hearing Grossly Normal, Normal TMs Nose: Normal Inspection, Normal Mucosa, No Blood Throat/Mouth: Normal Inspection, Normal Lips, Normal Teeth, Normal Gums, Normal Oropharynx, Normal Voice, No Airway Compromise Head: Atraumatic, Normocephalic Neck: Normal Inspection, Supple, Non-Tender, Full Range of Motion Respiratory/Chest: No Respiratory Distress, Lungs Clear, Normal Breath Sounds, No Accessory Muscle Use, Chest Non-Tender Cardiovascular: Normal Peripheral Pulses, Regular Rate, Rhythm, No Edema, No Gal lop, No JVD, No Murmur, No Rub GI/Abdominal: Normal Bowel Sounds, Soft, Non-Tender, No Organomegaly, No Distention, No Abnormal Bruit, No Mass (Male) Exam: Deferred Rectal (Males) Exam: Deferred Back Exam: CVA Tenderness (L), CVA Tenderness (R) Extremities: Normal Inspection, Normal Range of Motion, Non-Tender, Normal Capillary Refill, No Pedal Edema Neurological: Alert, Oriented, CN II-XII Intact, Normal Cognition, Normal Gait, Normal Reflexes, No Motor/Sensory Deficits Psychiatric: Normal Affect, Normal Mood Skin Exam: Warm, Dry, Intact, Normal Color, No Rash Lymphatic: No Adenopathy Course - Vital Signs Last Recorded V/S: Last Vital Signs Temp 36.6 C 06/01/20 00:41 Pulse 87 06/01/20 00:41 Resp 19 06/01/20 00:41 BP 153/79 H 06/01/20 00:41 Pulse Ox 97 06/01/20 00:41 - Orders/Labs/Meds Meds: Medications Discontinued Medications Generic Name Dose Route Start Last Admin Trade Name Karthikeyanq PRN Reason Stop Dose Admin Hydromorphone HCl 2 mg 06/01/20 00:49 06/01/20 01:07 Dilaudid IVPUSH 06/01/20 00:50 2 mg ONETIME ONE Administration Hydromorphone HCl 1 mg 06/01/20 01:38 Dilaudid IVPUSH 06/01/20 01:39 ONETIME ONE Ondansetron HCl 4 mg 06/01/20 00:49 06/01/20 01:07 Zofran IVPUSH 06/01/20 00:50 4 mg ONETIME ONE Administration Departure - Departure Time of Disposition: 01:46 Disposition: Home, Self-Care 01 Condition: Fair Clinical Impression: Loin pain hematuria syndrome - Discharge Information *PRESCRIPTION DRUG MONITORING PROGRAM REVIEWED*: Not Applicable *COPY OF PRESCRIPTION DRUG MONITORING REPORT IN PATIENT NICO: Not Applicable Forms: ED Department Discharge Care Plan Goals: The patient was advised of the examination results during the visit. The patient was given IV Dilaudid and IV Zofran while in the ED with some pain relief. The patient was encouraged to follow-up with his urologist and Dr. Faria for further treatments. If the patient has any additional symptoms or concerns, the patient should either return to the emergency department or visit his primary care facility. Sepsis Event Note (ED) - Evaluation Sepsis Screening Result: No Definite Risk - Focused Exam Vital Signs: Vital Signs Temp Pulse Resp BP Pulse Ox 06/01/20 00:41 36.6 C 87 19 153/79 H 97
== END 2020-06-01 01:55 | disposition home or self-care (01) ==
LOC: DL.ED 00:29
DX: N39.8 Other specified disorders of urinary system (principal); R31.9 Hematuria, unspecified; E66.9 Obesity, unspecified; Z68.42 Body mass index [BMI] 45.0-49.9, adult; Z88.1 Allergy status to other antibiotic agents; Z91.030 Bee allergy status; Z88.6 Allergy status to analgesic agent; Z88.8 Allergy status to other drugs, medicaments and biological substances; Z88.5 Allergy status to narcotic agent; Z79.899 Other long term (current) drug therapy
CPT/HCPCS: 96374; 96375; 96376; 99283; J1170; J2405

== ENCOUNTER 2020-06-01 07:04 | Emergency (ER) | payer MEDICAID ==
--- NOTE | 2020-06-01 07:28 | EDM.PDOC ---
ED HPI GENERAL MEDICAL PROBLEM - General Chief Complaint: Genitourinary Problem Stated Complaint: PAIN GETTING WORSE Time Seen by Provider: 06/01/20 07:27 Source of Information: Reports: Patient, Old Records, Provider (Dr. Faria), RN, RN Notes Reviewed History Limitations: Reports: No Limitations - History of Present Illness INITIAL COMMENTS - FREE TEXT/NARRATIVE: Pt presents to the ER for the 4th time in two days with c/o severe intractable flank pain. He has also been seen in clinic twice yesterday, one by his PCP for pain management, and with his filling mixer. In the past the pt has had primarily left flank pain, but currently it hurts all across the flank and he cannot tell if it is coming from the left or right side. He admits to gross hematuria. He reports the pain is so bad that he becomes nauseated and vomits. He denies fever or chills. Denies urinary retention. He rate the pain 10/10. Pain medications have resulted in minimal relief. He has Hx of HSP, and subsequently was diagnosed with loin pain hematuria syndrome. Duration: Recurring Location: Reports: Other (Flank) Quality: Reports: Same as Previous Episode Severity: Severe Improves with: Reports: None Worsens with: Reports: None Bilateral Lower Back Pain Score (Numeric/FACES): 10 - Related Data Allergies Allergy/AdvReac Type Severity Reaction Status Date / Time amoxicillin [Amoxicillin] Allergy Rash Verified 06/01/20 00:40 bee venom protein (honey bee) Allergy Cannot Verified 06/01/20 00:40 Remember ketorolac tromethamine Allergy Rash Verified 06/01/20 00:40 [From Toradol] metoclopramide [From Reglan] Allergy Agitation Verified 06/01/20 00:40 promethazine HCl Allergy Hallucinati Verified 06/01/20 00:40 [From Phenergan] ons tramadol HCl [From Ultram] Allergy Rash Verified 06/01/20 00:40 Home Meds: Home Meds Losartan [Cozaar] 25 mg PO DAILY 04/02/20 [History] oxyCODONE HCl [Oxycodone HCL] 10 mg PO Q6H PRN 05/09/20 [History] Tamsulosin HCl [Flomax] 0.4 mg PO DAILY 05/30/20 [History] oxyCODONE HCl/Acetaminophen [Oxycodone-Acetaminophen 5-325] 1 each PO Q6H PRN #2 tablet 05/30/20 [Rx] Past Medical History - Past Health History Medical/Surgical History: Denies Medical/Surgical History HEENT History: Reports: None Cardiovascular History: Reports: None Respiratory History: Reports: None Gastrointestinal History: Reports: Gastritis, GERD, Other (See Below) Other Gastrointestinal History: gallbladder pain Genitourinary History: Reports: Renal Calculus, Other (See Below) Other Genitourinary History: Vascular kidney disease Musculoskeletal History: Reports: None Neurological History: Reports: None Psychiatric History: Reports: None, Addiction Endocrine/Metabolic History: Reports: Obesity/BMI 30+ Hematologic History: Reports: None Immunologic History: Reports: None Oncologic (Cancer) History: Reports: None Dermatologic History: Reports: None - Infectious Disease History Infectious Disease History: Reports: None - Past Surgical History Head Surgeries/Procedures: Reports: None HEENT Surgical History: Reports: None Cardiovascular Surgical History: Reports: None GI Surgical History: Reports: Appendectomy, Cholecystectomy Male Surgical History: Reports: Circumcision Other Male Surgeries/Procedures: Has had kidney biopsy Musculoskeletal Surgical History: Reports: Other (See Below) Other Musculoskeletal Surgeries/Procedures:: left arm Social & Family History - Family History Family Medical History: Noncontributory - Caffeine Use Caffeine Use: Reports: Soda Caffeine Use Comment: 32 oz daily - Living Situation & Occupation Living situation: Reports: Single, Alone Occupation: Employed ED ROS GENERAL - Review of Systems Review Of Systems: Comprehensive ROS is negative, except as noted in HPI. ED EXAM, RENAL/ - Physical Exam Exam: See Below Exam Limited By: No Limitations General Appearance: Alert, Obese, Other (Uncomfortable but nontoxic appearing). No: Active Emesis Respiratory/Chest: No Respiratory Distress, Lungs Clear Cardiovascular: Regular Rate, Rhythm, No Edema GI/Abdominal: Normal Bowel Sounds, Soft, No Distention, No Abnormal Bruit, Tender (Tender at B/L upper quadrants overlying the kidney area.). No: Guar ding, Rigid (Male) Exam: Deferred Rectal (Males) Exam: Deferred Back Exam: Full Range of Motion, CVA Tenderness (L), CVA Tenderness (R). No: Vertebral Tenderness Extremities: Normal Inspection, Normal Range of Motion, Non-Tender, Normal Capillary Refill, No Pedal Edema Neurological: Alert, Oriented, CN II-XII Intact, Normal Cognition, Normal Gait, No Motor/Sensory Deficits Psychiatric: Normal Mood Skin Exam: Warm, Dry, Intact, Normal Color, No Rash. No: Ecchymosis, Jaundice, Petechiae, Rash Course - Vital Signs Last Recorded V/S: Last Vital Signs Temp 97.9 F 06/01/20 07:25 Pulse 94 06/01/20 07:25 Resp 16 06/01/20 07:25 BP 131/68 06/01/20 07:25 Pulse Ox 98 06/01/20 07:25 - Orders/Labs/Meds Orders: Active Orders 24 hr Category Date Time Status Peripheral IV Care [RC] . DIRECTED Care 06/01/20 07:30 Active HYDROmorphone [Dilaudid] Med 06/01/20 09:08 Active 1 mg IVPUSH Q2HR PRN Ondansetron [Zofran] Med 06/01/20 09:09 Active 4 mg IV Q4HR PRN Sodium Chloride 0.9% [Normal Saline] 1,000 ml Med 06/01/20 09:15 Active IV ASDIRECTED Sodium Chloride 0.9% [Saline Flush] Med 06/01/20 07:30 Active 10 ml FLUSH ASDIRECTED PRN Peripheral IV Insertion Adult [OM.PC] Stat Oth 06/01/20 07:30 Ordered Medication Orders Hydromorphone HCl (Dilaudid) 1 mg IVPUSH Q2HR PRN PRN Reason: Pain Last Admin: 06/01/20 09:16 Dose: 1 mg Documented by: MOUNA Sodium Chloride (Normal Saline) 1,000 mls @ 100 mls/hr IV ASDIRECTED BRITTANY Last Admin: 06/01/20 09:20 Dose: 100 mls/hr Documented by: MOUNA Ondansetron HCl (Zofran) 4 mg IV Q4HR PRN PRN Reason: Nausea Sodium Chloride (Saline Flush) 10 ml FLUSH ASDIRECTED PRN PRN Reason: Keep Vein Open Last Admin: 06/01/20 08:00 Dose: 10 ml Documented by: MOUNA Labs: Laboratory Tests 06/01/20 06/01/20 06/01/20 Range/Units 07:51 07:51 08:39 WBC 16.2 H (5.0-10.0) 10^3/uL RBC 4.86 (4.6-6.2) 10^6/uL Hgb 14.4 (14.0-18.0) g/dL Hct 41.9 (40.0-54.0) % MCV 86.2 (80-100) fL MCH 29.6 (27.0-34.0) pg MCHC 34.4 (33.0-35.0) g/dL Plt Count 330 (150-450) 10^3/uL Neut % (Auto) 79.8 H (42.2-75.2) % Lymph % (Auto) 12.8 L (20.5-50.1) % [place] % (Auto) 7.2 (2-8) % Eos % (Auto) 0.1 L (1.0-3.0) % Baso % (Auto) 0.1 (0.0-1.0) % Sodium 141 (136-145) mmol/L Potassium 4.1 (3.5-5.1) mmol/L Chloride 106 (98-107) mmol/L Carbon Dioxide 24 (21-32) mmol/L Anion Gap 15.1 H (7-13) mEq/L BUN 14 (7-18) mg/dL Creatinine 0.83 (0.70-1.30) mg/dL Est Cr Clr Drug Dosing 139.86 mL/min Estimated GFR (MDRD) > 60 Glucose 133 H (74-99) mg/dL Calcium 8.7 (8.5-10.1) mg/dL Urine Color Red (YELLOW) Urine Appearance Turbid (CLEAR) Urine pH 6.0 (5.0-9.0) Ur Specific [place] >= 1.030 (1.005-1.030) Urine Protein 30 H (NEGATIVE) Urine Glucose (UA) Negative (NEGATIVE) Urine Ketones Negative (NEGATIVE) Urine Occult Blood Moderate H (NEGATIVE) Urine Nitrite Negative (NEGATIVE) Urine Bilirubin Negative (NEGATIVE) Urine Urobilinogen 0.2 (0.2-1.0) mg/dL Ur Leukocyte Esterase Negative (NEGATIVE) Urine RBC >100 H /HPF Urine WBC 0-5 (0-5/HPF) /HPF Ur Epithelial Cells Rare (NOT SEEN) /HPF Amorphous Sediment Rare (NOT SEEN) /HPF Urine Bacteria Not seen (0-FEW/HPF) /HPF Urine Mucus Rare (NOT SEEN) /LPF Urinalysis Comment See note Meds: Medications Generic Name Dose Route Start Last Admin Trade Name Freq PRN Reason Stop Dose Admin Hydromorphone HCl 1 mg 06/01/20 09:08 06/01/20 09:16 Dilaudid IVPUSH 1 mg Q2HR PRN Administration Pain Sodium Chloride 1,000 mls @ 100 mls/hr 06/01/20 09:15 06/01/20 09:20 Normal Saline IV 100 mls/hr ASDIRECTED BRITTANY Administration Ondansetron HCl 4 mg 06/01/20 09:09 Zofran IV Q4HR PRN Nausea Sodium Chloride 10 ml 06/01/20 07:30 06/01/20 08:00 Saline Flush FLUSH 10 ml ASDIRECTED PRN Administration Keep Vein Open Discontinued Medications Generic Name Dose Route Start Last Admin Trade Name Freq PRN Reason Stop Dose Admin Hydromorphone HCl 2 mg 06/01/20 07:32 06/01/20 07:56 Dilaudid IVPUSH 06/01/20 07:33 2 mg ONETIME ONE Administration Sodium Chloride 1,000 mls @ 999 mls/hr 06/01/20 07:32 06/01/20 07:55 Normal Saline IV 06/01/20 08:32 999 mls/hr .BOLUS ONE Administration Ondansetron HCl 4 mg 06/01/20 07:32 06/01/20 07:55 Zofran IV 06/01/20 07:33 4 mg ONETIME ONE Administration - Re-Assessments/Exams Free Text/Narrative Re-Assessment/Exam: 06/01/20 09:[address] Faria, pt's PCP who has been in contact with pt's filling mixer recently. Dr. Faria advises the pt be transferred to [facility] for pain control and consultation by his specialists. Awaiting bed availability at [facility], therefore pt held on [facility]. floor as extended ER until transfer which is anticipated in the next few hours. Departure - Departure Time of Disposition: 10:41 Disposition: DC/Tfer to Acute Hospital 02 Condition: Fair, Undetermined Clinical Impression: Loin pain hematuria syndrome, Gross hematuria, History of Henoch-Schonlein purpura Nausea & vomiting Qualifiers: Vomiting type: unspecified Vomiting Intractability: unspecified Qualified Code(s): R11.2 - Nausea with vomiting, unspecified - Discharge Information *PRESCRIPTION DRUG MONITORING PROGRAM REVIEWED*: No *COPY OF PRESCRIPTION DRUG MONITORING REPORT IN PATIENT NICO: No Forms: ED Department Discharge, Interfacility Transfer EMTALA Sepsis Event Note (ED) - Focused Exam Vital Signs: Vital Signs Temp Pulse Resp BP Pulse Ox 06/01/20 07:25 97.9 F 94 16 131/68 98 - My Orders Last 24 Hours: My Active Orders 06/01/20 07:30 Peripheral IV Care [RC] . DIRECTED Sodium Chloride 0.9% [Saline Flush] 10 ml FLUSH ASDIRECTED PRN Peripheral IV Insertion Adult [OM.PC] Stat 06/01/20 09:08 HYDROmorphone [Dilaudid] 1 mg IVPUSH Q2HR PRN 06/01/20 09:09 Ondansetron [Zofran] 4 mg IV Q4HR PRN 06/01/20 09:15 Sodium Chloride 0.9% [Normal Saline] 1,000 ml IV ASDIRECTED - Assessment/Plan Last 24 Hours: My Active Orders 06/01/20 07:30 Peripheral IV Care [RC] . DIRECTED Sodium Chloride 0.9% [Saline Flush] 10 ml FLUSH ASDIRECTED PRN Peripheral IV Insertion Adult [OM.PC] Stat 06/01/20 09:08 HYDROmorphone [Dilaudid] 1 mg IVPUSH Q2HR PRN 06/01/20 09:09 Ondansetron [Zofran] 4 mg IV Q4HR PRN 06/01/20 09:15 Sodium Chloride 0.9% [Normal Saline] 1,000 ml IV ASDIRECTED
[2020-06-01] MEDS ORDERED: Sodium Chloride 0.9% 10 ML Syringe FLUSH PRN (07:30)
[2020-06-01] MEDS ORDERED: Sodium Chloride 0.9% 1,000 ML IV ONE (07:32)
[2020-06-01] MEDS ORDERED: Ondansetron 4 MG/2 ML SDV IV ONE (07:32)
[2020-06-01] MEDS ORDERED: HYDROmorphone 1 MG/ML Syringe IVPUSH ONE (07:32)
[2020-06-01 08:14] LABS: ANION GAP 15.1 mEq/L (7-13); CHLORIDE,CL 106 mmol/L (98-107); SODIUM,NA 141 mmol/L (136-145)
[2020-06-01] MEDS ORDERED: Ondansetron 4 MG/2 ML SDV IV PRN (09:09)
[2020-06-01] MEDS ORDERED: Sodium Chloride 0.9% 1,000 ML IV SCH (09:15)
[2020-06-01] MEDS: HYDROmorphone 1 MG/ML Syringe IVPUSH PRN ×2 (09:16→10:53)
[2020-06-01 10:55] VITALS: BP 123/57; PULSE 62
== END 2020-06-01 11:25 ==
LOC: DL.ED 07:04
DX: N39.8 Other specified disorders of urinary system (principal); R31.0 Gross hematuria; R11.2 Nausea with vomiting, unspecified; E66.9 Obesity, unspecified; Z68.42 Body mass index [BMI] 45.0-49.9, adult; Z86.2 Personal history of diseases of the blood and blood-forming organs and certain disorders involving the immune mechanism; Z88.1 Allergy status to other antibiotic agents; Z91.030 Bee allergy status; Z88.6 Allergy status to analgesic agent; Z88.5 Allergy status to narcotic agent; Z88.8 Allergy status to other drugs, medicaments and biological substances; Z79.899 Other long term (current) drug therapy
CPT/HCPCS: 36415; 80048; 81001; 85025; 96361; 96374; 96375; 96376; 99284; 99285; J1170; J2405; J7030

== ENCOUNTER 2020-06-01 22:34 | Emergency (ER) | payer MEDICAID ==
[2020-06-01 23:00] VITALS: BP 142/67; PULSE 72
[2020-06-02] MEDS ORDERED: HYDROmorphone 1 MG/ML Syringe IM ONE (00:15)
--- NOTE | 2020-06-02 00:23 | EDM.PDOC ---
ED HPI GENERAL MEDICAL PROBLEM - General Chief Complaint: Flank Pain Stated Complaint: KIDNEY [facility] PAIN Time Seen by Provider: 06/02/20 00:10 Source of Information: Reports: Patient History Limitations: Reports: No Limitations - History of Present Illness INITIAL COMMENTS - FREE TEXT/NARRATIVE: This 30 yo male patient reports to the ED with continued flank pain. The patient has been seen in this ED 3 times over the past 24 hours. During the previous visit, an attempt was made to transfer the patient to [facility] in [place], but the patient demanded that the ambulance stop and he got out of the ambulance. The patient then proceeded to drive himself to [place] and reports he was there all after noon with no treatment. The patient then came back to our ED for pain management. Onset: Unknown/Unsure Duration: Constant Location: Reports: Back Quality: Reports: Ache, Sharp, Stabbing Severity: Severe Improves with: Reports: None Worsens with: Reports: None Context: Reports: Other Associated Symptoms: Reports: No Other Symptoms Bilateral Flank Pain Score (Numeric/FACES): 9 - Related Data Allergies Allergy/AdvReac Type Severity Reaction Status Date / Time amoxicillin [Amoxicillin] Allergy Rash Verified 06/01/20 00:40 bee venom protein (honey bee) Allergy Cannot Verified 06/01/20 00:40 Remember ketorolac tromethamine Allergy Rash Verified 06/01/20 00:40 [From Toradol] metoclopramide [From Reglan] Allergy Agitation Verified 06/01/20 00:40 promethazine HCl Allergy Hallucinati Verified 06/01/20 00:40 [From Phenergan] ons tramadol HCl [From Ultram] Allergy Rash Verified 06/01/20 00:40 Home Meds: Home Meds Losartan [Cozaar] 25 mg PO DAILY 04/02/20 [History] oxyCODONE HCl [Oxycodone HCL] 10 mg PO Q6H PRN 05/09/20 [History] Tamsulosin HCl [Flomax] 0.4 mg PO DAILY 05/30/20 [History] oxyCODONE HCl/Acetaminophen [Oxycodone-Acetaminophen 5-325] 1 each PO Q6H PRN #2 tablet 05/30/20 [Rx] Past Medical History - Past Health History Medical/Surgical History: Denies Medical/Surgical History HEENT History: Reports: None Cardiovascular History: Reports: None Respiratory History: Reports: None Gastrointestinal History: Reports: Gastritis, GERD, Other (See Below) Other Gastrointestinal History: gallbladder pain Genitourinary History: Reports: Renal Calculus, Other (See Below) Other Genitourinary History: Vascular kidney disease Musculoskeletal History: Reports: None Neurological History: Reports: None Psychiatric History: Reports: None, Addiction Endocrine/Metabolic History: Reports: Obesity/BMI 30+ Hematologic History: Reports: None Immunologic History: Reports: None Oncologic (Cancer) History: Reports: None Dermatologic History: Reports: None - Infectious Disease History Infectious Disease History: Reports: None - Past Surgical History Head Surgeries/Procedures: Reports: None HEENT Surgical History: Reports: None Cardiovascular Surgical History: Reports: None GI Surgical History: Reports: Appendectomy, Cholecystectomy Male Surgical History: Reports: Circumcision Other Male Surgeries/Procedures: Has had kidney biopsy Musculoskeletal Surgical History: Reports: Other (See Below) Other Musculoskeletal Surgeries/Procedures:: left arm Social & Family History - Family History Family Medical History: Noncontributory - Tobacco Use Smoking Status *Q: Never Smoker Second Hand Smoke Exposure: No - Caffeine Use Caffeine Use: Reports: None Caffeine Use Comment: 32 oz daily - Recreational Drug Use Recreational Drug Use: No - Living Situation & Occupation Living situation: Reports: Single, Alone Occupation: Employed ED ROS GENERAL - Review of Systems Review Of Systems: Comprehensive ROS is negative, except as noted in HPI. ED EXAM, RENAL/ - Physical Exam Exam: See Below Exam Limited By: No Limitations General Appearance: Alert, WD/WN, Moderate Distress, Obese Eye Exam: Bilateral Eye: EOMI, Normal Inspection, PERRL Ears: Normal External Exam, Normal Canal, Hearing Grossly Normal, Normal TMs Nose: Normal Inspection, Normal Mucosa, No Blood Throat/Mouth: Normal Inspection, Normal Lips, Normal Teeth, Normal Gums, Normal Oropharynx, Normal Voice, No Airway Compromise Head: Atraumatic, Normocephalic Neck: Normal Inspection, Supple, Non-Tender, Full Range of Motion Respiratory/Chest: No Respiratory Distress, Lungs Clear, Normal Breath Sounds, No Accessory Muscle Use, Chest Non-Tender Cardiovascular: Normal Peripheral Pulses, Regular Rate, Rhythm, No Edema, No Gallop, No JVD, No Murmur, No Rub GI/Abdominal: Tender (lower abdomen) (Male) Exam: Deferred Rectal (Males) Exam: Deferred Back Exam: CVA Tenderness (L), CVA Tenderness (R) Extremities: Normal Inspection, Normal Range of Motion, Non-Tender, Normal Capillary Refill, No Pedal Edema Neurological: Alert, Oriented, CN II-XII Intact, Normal Cognition, Normal Gait, Normal Reflexes, No Motor/Sensory Deficits Psychiatric: Normal Affect, Normal Mood Skin Exam: Warm, Dry, Intact, Normal Color, No Rash Lymphatic: No Adenopathy Course - Vital Signs Last Recorded V/S: Last Vital Signs Temp 36.6 C 06/01/20 22:47 Pulse 72 06/01/20 22:47 Resp 19 06/01/20 22:47 BP 142/67 H 06/01/20 22:47 Pulse Ox 98 06/01/20 22:47 - Orders/Labs/Meds Orders: Active Orders 24 hr Category Date Time Status HYDROmorphone [Dilaudid] Med 06/02/20 00:15 Once 2 mg IM ONETIME ONE Medication Orders Hydromorphone HCl (Dilaudid) 2 mg IM ONETIME ONE Stop: 06/02/20 00:16 Meds: Medications Generic Name Dose Route Start Last Admin Trade Name Freq PRN Reason Stop Dose Admin Hydromorphone HCl 2 mg 06/02/20 00:15 Dilaudid IM 06/02/20 00:16 ONETIME ONE Departure - Departure Time of Disposition: 00:19 Disposition: Home, Self-Care 01 Condition: Fair Clinical Impression: Loin pain hematuria syndrome - Discharge Information *PRESCRIPTION DRUG MONITORING PROGRAM REVIEWED*: Not Applicable *COPY OF PRESCRIPTION DRUG MONITORING REPORT IN PATIENT NICO: Not Applicable Care Plan Goals: The patient was advised of the examination results. The patient was given an IM injection of Dilaudid while in the ED. The patient was advised that coming to the ED is not a fix to his problems. The patient was advised that he needs to be seen by his Urologist or treated by his primary care facility. The patient was not given any prescriptions during this visit as his pain medications are being managed by his primary care facility. If the patient has any additional symptoms or concerns, the patient should visit his primary care facility, his urologist or return to the emergency department. Sepsis Event Note (ED) - Evaluation Sepsis Screening Result: No Definite Risk - Focused Exam Vital Signs: Vital Signs Temp Pulse Resp BP Pulse Ox 06/01/20 22:47 36.6 C 72 19 142/67 H 98 - My Orders Last 24 Hours: My Active Orders 06/02/20 00:15 HYDROmorphone [Dilaudid] 2 mg IM ONETIME ONE - Assessment/Plan Last 24 Hours: My Active Orders 06/02/20 00:15 HYDROmorphone [Dilaudid] 2 mg IM ONETIME ONE
== END 2020-06-02 00:29 | disposition home or self-care (01) ==
LOC: DL.ED 22:34
DX: M54.5 Low back pain (principal); E66.9 Obesity, unspecified; Z79.899 Other long term (current) drug therapy; Z88.0 Allergy status to penicillin; Z91.030 Bee allergy status; Z88.6 Allergy status to analgesic agent; Z88.8 Allergy status to other drugs, medicaments and biological substances; Z68.42 Body mass index [BMI] 45.0-49.9, adult
CPT/HCPCS: 96372; 99283; J1170

== ENCOUNTER 2020-06-05 16:16 | Emergency (ER) | payer MEDICAID ==
[2020-06-05 16:34] VITALS: BP 135/79; PULSE 80
[2020-06-05] MEDS ORDERED: HYDROmorphone 1 MG/ML Syringe IM ONE (16:48)
--- NOTE | 2020-06-05 16:52 | EDM.PDOC ---
ED HPI GENERAL MEDICAL PROBLEM - General Chief Complaint: Flank Pain Stated Complaint: KIDNEY / BLADDER Time Seen by Provider: 06/05/20 16:49 - History of Present Illness INITIAL COMMENTS - FREE TEXT/NARRATIVE: Patient presents to the ED via personal vehicle with complaints of bilateral flank pain. The patient has been Bilateral Flank Pain Score (Numeric/FACES): 8 - Related Data Allergies Allergy/AdvReac Type Severity Reaction Status Date / Time amoxicillin [Amoxicillin] Allergy Rash Verified 06/05/20 16:31 bee venom protein (honey bee) Allergy Cannot Verified 06/05/20 16:31 Remember ketorolac tromethamine Allergy Rash Verified 06/05/20 16:31 [From Toradol] metoclopramide [From Reglan] Allergy Agitation Verified 06/05/20 16:31 promethazine HCl Allergy Hallucinati Verified 06/05/20 16:31 [From Phenergan] ons tramadol HCl [From Ultram] Allergy Rash Verified 06/05/20 16:31 Home Meds: Home Meds Losartan [Cozaar] 25 mg PO DAILY 04/02/20 [History] oxyCODONE HCl [Oxycodone HCL] 10 mg PO Q6H PRN 05/09/20 [History] Tamsulosin HCl [Flomax] 0.4 mg PO DAILY 05/30/20 [History] oxyCODONE HCl/Acetaminophen [Oxycodone-Acetaminophen 5-325] 1 each PO Q6H PRN #2 tablet 05/30/20 [Rx] Past Medical History - Past Health History Medical/Surgical History: Denies Medical/Surgical History HEENT History: Reports: None Cardiovascular History: Reports: None Respiratory History: Reports: None Gastrointestinal History: Reports: Gastritis, GERD, Other (See Below) Other Gastrointestinal History: gallbladder pain Genitourinary History: Reports: Renal Calculus, Other (See Below) Other Genitourinary History: Vascular kidney disease Musculoskeletal History: Reports: None Neurological History: Reports: None Psychiatric History: Reports: Addiction Endocrine/Metabolic History: Reports: Obesity/BMI 30+ Hematologic History: Reports: None Immunologic History: Reports: None Oncologic (Cancer) History: Reports: None Dermatologic History: Reports: None - Infectious Disease History Infectious Disease History: Reports: None - Past Surgical History Head Surgeries/Procedures: Reports: None HEENT Surgical History: Reports: None Cardiovascular Surgical History: Reports: None GI Surgical History: Reports: Appendectomy, Cholecystectomy Male Surgical History: Reports: Circumcision Other Male Surgeries/Procedures: Has had kidney biopsy Musculoskeletal Surgical History: Reports: Other (See Below) Other Musculoskeletal Surgeries/Procedures:: left arm Social & Family History - Family History Family Medical History: Noncontributory - Caffeine Use Caffeine Use: Reports: Soda Caffeine Use Comment: 32 oz daily - Recreational Drug Use Recreational Drug Use: No - Living Situation & Occupation Living situation: Reports: Single, Alone Occupation: Employed Course - Vital Signs Last Recorded V/S: Last Vital Signs Temp 98.2 F 06/05/20 16:31 Pulse 80 06/05/20 16:31 Resp 16 06/05/20 16:31 BP 135/79 06/05/20 16:31 Pulse Ox 98 06/05/20 16:31 - Orders/Labs/Meds Orders: Active Orders 24 hr Category Date Time Status HYDROmorphone [Dilaudid] Med 06/05/20 16:48 Once 2 mg IM ONETIME ONE Departure - Departure Time of Disposition: 16:49 Disposition: Home, Self-Care 01 Condition: Good Clinical Impression: Hematuria syndrome - Discharge Information *PRESCRIPTION DRUG MONITORING PROGRAM REVIEWED*: Not Applicable *COPY OF PRESCRIPTION DRUG MONITORING REPORT IN PATIENT NICO: Not Applicable Instructions: Flank Pain, Adult, [id number] Additional Instructions: Dilaudid administered in ED Follow up with primary care provider on Sunday, as previously scheduled. Follow with Physiatry, per primary care recommendations. Sepsis Event Note (ED) - Evaluation Sepsis Screening Result: No Definite Risk - Focused Exam Vital Signs: Vital Signs Temp Pulse Resp BP Pulse Ox 06/05/20 16:31 98.2 F 80 16 135/79 98 - My Orders Last 24 Hours: My Active Orders 06/05/20 16:48 HYDROmorphone [Dilaudid] 2 mg IM ONETIME ONE - Assessment/Plan Last 24 Hours: My Active Orders 06/05/20 16:48 HYDROmorphone [Dilaudid] 2 mg IM ONETIME ONE
--- NOTE | 2020-06-05 16:59 | EDM.PDOC ---
ED HPI GENERAL MEDICAL PROBLEM - General Chief Complaint: Flank Pain Stated Complaint: KIDNEY / BLADDER Time Seen by Provider: 06/05/20 16:49 Source of Information: Reports: Patient, RN, RN Notes Reviewed History Limitations: Reports: No Limitations - History of Present Illness INITIAL COMMENTS - FREE TEXT/NARRATIVE: Patient presents to the ED for the 5th time in six days with complaints of severe intractable flank pain. The patient states he has been evaluated by is PCP, pain management, and draw frame runner earlier this week, as well. The patient states he is currently experiencing bilateral flank pain. He attests to gross hematuria and dysuria. He notes the pain can become so bad that he becomes nauseas, rating it at a 10/10. He denies fever, shaking chills, or urinary retention. 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 He states he has been taking Percocet 5/325, two tabs, with minimal to no relief. Bilateral Flank Pain Score (Numeric/FACES): 8 - Related Data Allergies Allergy/AdvReac Type Severity Reaction Status Date / Time amoxicillin [Amoxicillin] Allergy Rash Verified 06/05/20 16:31 bee venom protein (honey bee) Allergy Cannot Verified 06/05/20 16:31 Remember ketorolac tromethamine Allergy Rash Verified 06/05/20 16:31 [From Toradol] metoclopramide [From Reglan] Allergy Agitation Verified 06/05/20 16:31 promethazine HCl Allergy Hallucinati Verified 06/05/20 16:31 [From Phenergan] ons tramadol HCl [From Ultram] Allergy Rash Verified 06/05/20 16:31 Home Meds: Home Meds Losartan [Cozaar] 25 mg PO DAILY 04/02/20 [History] oxyCODONE HCl [Oxycodone HCL] 10 mg PO Q6H PRN 05/09/20 [History] Tamsulosin HCl [Flomax] 0.4 mg PO DAILY 05/30/20 [History] oxyCODONE HCl/Acetaminophen [Oxycodone-Acetaminophen 5-325] 1 each PO Q6H PRN #2 tablet 05/30/20 [Rx] Past Medical History - Past Health History Medical/Surgical History: Denies Medical/Surgical History HEENT History: Reports: None Cardiovascular History: Reports: None Respiratory History: Reports: None Gastrointestinal History: Reports: Gastritis, GERD, Other (See Below) Other Gastrointestinal History: gallbladder pain Genitourinary History: Reports: Renal Calculus, Other (See Below) Other Genitourinary History: Vascular kidney disease Musculoskeletal History: Reports: None Neurological History: Reports: None Psychiatric History: Reports: Addiction Endocrine/Metabolic History: Reports: Obesity/BMI 30+ Hematologic History: Reports: None Immunologic History: Reports: None Oncologic (Cancer) History: Reports: None Dermatologic History: Reports: None - Infectious Disease History Infectious Disease History: Reports: None - Past Surgical History Head Surgeries/Procedures: Reports: None HEENT Surgical History: Reports: None Cardiovascular Surgical History: Reports: None GI Surgical History: Reports: Appendectomy, Cholecystectomy Male Surgical History: Reports: Circumcision Other Male Surgeries/Procedures: Has had kidney biopsy Musculoskeletal Surgical History: Reports: Other (See Below) Other Musculoskeletal Surgeries/Procedures:: left arm Social & Family History - Family History Family Medical History: Noncontributory - Caffeine Use Caffeine Use: Reports: Soda Caffeine Use Comment: 32 oz daily - Recreational Drug Use Recreational Drug Use: No - Living Situation & Occupation Living situation: Reports: Single, Alone Occupation: Employed ED ROS GENERAL - Review of Systems Review Of Systems: Comprehensive ROS is negative, except as noted in HPI. ED EXAM, RENAL/ - Physical Exam Exam: See Below Exam Limited By: No Limitations General Appearance: Alert, WD/WN GI/Abdominal: Soft, Non-Tender (Male) Exam: Deferred Rectal (Males) Exam: Deferred Back Exam: No: CVA Tenderness (L), CVA Tenderness (R) Neurological: Alert, Oriented, CN II-XII Intact Psychiatric: Normal Affect, Normal Mood Skin Exam: Warm, Dry, Intact Course - Vital Signs Last Recorded V/S: Last Vital Signs Temp 98.2 F 06/05/20 16:31 Pulse 80 06/05/20 16:31 Resp 16 06/05/20 16:31 BP 135/79 06/05/20 16:31 Pulse Ox 98 06/05/20 16:31 - Orders/Labs/Meds Meds: Medications Discontinued Medications Generic Name Dose Route Start Last Admin Trade Name Freq PRN Reason Stop Dose Admin Hydromorphone HCl 2 mg 06/05/20 16:48 Dilaudid IM 06/05/20 16:49 ONETIME ONE - Re-Assessments/Exams Free Text/Narrative Re-Assessment/Exam: 06/05/20 16:53 Will administer Dilaudid 2mg IM. Patient instructed to follow up with PCP on Sunday, as previously scheduled. Departure - Departure Time of Disposition: 16:54 Disposition: Home, Self-Care 01 Condition: Good Clinical Impression: Hematuria syndrome - Discharge Information *PRESCRIPTION DRUG MONITORING PROGRAM REVIEWED*: Not Applicable *COPY OF PRESCRIPTION DRUG MONITORING REPORT IN PATIENT NICO: Not Applicable Instructions: Flank Pain, Adult, [id number] Forms: ED Department Discharge Additional Instructions: Dilaudid administered in ED Follow up with primary care provider on Sunday, as previously scheduled. Follow with Physiatry, per primary care recommendations. Sepsis Event Note (ED) - Evaluation Sepsis Screening Result: No Definite Risk - Focused Exam Vital Signs: Vital Signs Temp Pulse Resp BP Pulse Ox 06/05/20 16:31 98.2 F 80 16 135/79 98
== END 2020-06-05 17:08 | disposition home or self-care (01) ==
LOC: DL.ED 16:16
DX: R31.9 Hematuria, unspecified (principal); E66.9 Obesity, unspecified; Z68.42 Body mass index [BMI] 45.0-49.9, adult; Z88.5 Allergy status to narcotic agent; Z88.1 Allergy status to other antibiotic agents; Z88.8 Allergy status to other drugs, medicaments and biological substances; Z91.030 Bee allergy status
CPT/HCPCS: 96372; 99283; J1170

== ENCOUNTER 2020-06-06 06:59 | Emergency (ER) | payer MEDICAID ==
--- NOTE | 2020-06-06 07:10 | EDM.PDOC ---
ED HPI GENERAL MEDICAL PROBLEM - General Chief Complaint: Abdominal Pain Stated Complaint: KIDNEY PROBLEMS/STONES Time Seen by Provider: 06/06/20 07:09 Source of Information: Reports: Patient, RN, RN Notes Reviewed History Limitations: Reports: No Limitations - History of Present Illness INITIAL COMMENTS - FREE TEXT/NARRATIVE: Patient presents to the ED for the 6th time in seven days with complaints of severe intractable flank pain. The patient states he has been evaluated by is PCP, pain management, and index clerk earlier this week, as well. The patient states he is currently experiencing bilateral flank pain. He attests to gross hematuria and dysuria. He notes the pain can become so bad that he becomes nauseas, rating it at a 10/10. He denies chest pain/pressure, shortness of breath, fever, shaking chills, melena, dark tarry stools, or urinary retention. 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 He states he has been taking Percocet 5/325, two tabs, with minimal to no relief - although, he states he is now out of this medication and is looking for a refill. Bladder Pain Score (Numeric/FACES): 9 - Related Data Allergies Allergy/AdvReac Type Severity Reaction Status Date / Time amoxicillin [Amoxicillin] Allergy Rash Verified 06/05/20 16:31 bee venom protein (honey bee) Allergy Cannot Verified 06/05/20 16:31 Remember ketorolac tromethamine Allergy Rash Verified 06/05/20 16:31 [From Toradol] metoclopramide [From Reglan] Allergy Agitation Verified 06/05/20 16:31 promethazine HCl Allergy Hallucinati Verified 06/05/20 16:31 [From Phenergan] ons tramadol HCl [From Ultram] Allergy Rash Verified 06/05/20 16:31 Home Meds: Home Meds Losartan [Cozaar] 25 mg PO DAILY 04/02/20 [History] oxyCODONE HCl [Oxycodone HCL] 10 mg PO Q6H PRN 05/09/20 [History] Tamsulosin HCl [Flomax] 0.4 mg PO DAILY 05/30/20 [History] oxyCODONE HCl/Acetaminophen [Oxycodone-Acetaminophen 5-325] 1 each PO Q6H PRN #2 tablet 05/30/20 [Rx] Past Medical History - Past Health History Medical/Surgical History: Denies Medical/Surgical History HEENT History: Reports: None Cardiovascular History: Reports: None Respiratory History: Reports: None Gastrointestinal History: Reports: Gastritis, GERD, Other (See Below) Other Gastrointestinal History: gallbladder pain Genitourinary History: Reports: Renal Calculus, Other (See Below) Other Genitourinary History: Vascular kidney disease Musculoskeletal History: Reports: None Neurological History: Reports: None Psychiatric History: Reports: Addiction Endocrine/Metabolic History: Reports: Obesity/BMI 30+ Hematologic History: Reports: None Immunologic History: Reports: None Oncologic (Cancer) History: Reports: None Dermatologic History: Reports: None - Infectious Disease History Infectious Disease History: Reports: None - Past Surgical History Head Surgeries/Procedures: Reports: None HEENT Surgical History: Reports: None Cardiovascular Surgical History: Reports: None GI Surgical History: Reports: Appendectomy, Cholecystectomy Male Surgical History: Reports: Circumcision Other Male Surgeries/Procedures: Has had kidney biopsy Musculoskeletal Surgical History: Reports: Other (See Below) Other Musculoskeletal Surgeries/Procedures:: left arm Social & Family History - Family History Family Medical History: Noncontributory - Tobacco Use Smoking Status *Q: Current Every Day Smoker Years of Tobacco use: 10 Packs/Tins Daily: 1 - Caffeine Use Caffeine Use: Reports: None Caffeine Use Comment: 32 oz daily - Alcohol Use Days Per Week of Alcohol Use: 1 Number of Drinks Per Day: 6 Total Drinks Per Week: 6 - Recreational Drug Use Recreational Drug Use: Yes Recreational Drug Type: Reports: Marijuana/Hashish - Living Situation & Occupation Living situation: Reports: Single, Alone Occupation: Employed ED ROS GENERAL - Review of Systems Review Of Systems: Comprehensive ROS is negative, except as noted in HPI. ED EXAM, RENAL/ - Physical Exam Exam: See Below Exam Limited By: No Limitations General Appearance: Alert, WD/WN, No Apparent Distress GI/Abdominal: Normal Bowel Sounds, Soft, Non-Tender, No Distention, No Mass (Male) Exam: Deferred Rectal (Males) Exam: Deferred Back Exam: Normal Inspection, Full Range of Motion, CVA Tenderness (L), CVA Tenderness (R). No: Muscle Spasm, Paraspinal Tenderness, Vertebral Tenderness Neurological: Alert, Oriented, CN II-XII Intact, Normal Cognition, Normal Gait, No Motor/Sensory Deficits Skin Exam: Warm, Dry, Intact, Normal Color, No Rash. No: Erythema, Petechiae, Rash Course - Vital Signs Last Recorded V/S: Last Vital Signs Temp 97.9 F 06/06/20 07:08 Pulse 73 06/06/20 07:08 Resp 18 06/06/20 07:08 BP 134/77 06/06/20 07:08 Pulse Ox 98 06/06/20 07:08 - Orders/Labs/Meds Meds: Medications Discontinued Medications Generic Name Dose Route Start Last Admin Trade Name Chavo PRN Reason Stop Dose Admin Hydromorphone HCl 2 mg 06/06/20 07:16 Dilaudid IM 06/06/20 07:17 ONETIME ONE - Re-Assessments/Exams Free Text/Narrative Re-Assessment/Exam: 06/06/20 07:28 Vital signs stable. Assessment unchanged from yesterday. Patient counseled to follow up with primary care provider for further discussion regarding pain management. Patient instructed to keep all appointments with specialists. Departure - Departure Time of Disposition: 07:24 Disposition: Home, Self-Care 01 Condition: Good Clinical Impression: Hematuria syndrome, Bilateral flank pain - Discharge Information *PRESCRIPTION DRUG MONITORING PROGRAM REVIEWED*: Not Applicable *COPY OF PRESCRIPTION DRUG MONITORING REPORT IN PATIENT NICO: Not Applicable Forms: ED Department Discharge Additional Instructions: Follow up with primary care provider on Sunday, as previously scheduled, to discuss further pain management options. Keep all appointments with specialists. Drink plenty of fluids. Sepsis Event Note (ED) - Focused Exam Vital Signs: Vital Signs Temp Pulse Resp BP Pulse Ox 06/06/20 07:08 97.9 F 73 18 134/77 98
[2020-06-06 07:11] VITALS: BP 134/77; PULSE 73
[2020-06-06] MEDS ORDERED: HYDROmorphone 1 MG/ML Syringe IM ONE (07:16)
== END 2020-06-06 07:30 | disposition home or self-care (01) ==
LOC: DL.ED 06:59
DX: R10.9 Unspecified abdominal pain (principal); R31.0 Gross hematuria; R30.0 Dysuria; E66.9 Obesity, unspecified; F17.210 Nicotine dependence, cigarettes, uncomplicated; Z88.1 Allergy status to other antibiotic agents; Z91.030 Bee allergy status; Z88.6 Allergy status to analgesic agent; Z88.8 Allergy status to other drugs, medicaments and biological substances; Z88.5 Allergy status to narcotic agent; Z90.49 Acquired absence of other specified parts of digestive tract; Z68.42 Body mass index [BMI] 45.0-49.9, adult
CPT/HCPCS: 96372; 99283; J1170

== ENCOUNTER 2020-06-09 06:51 | Emergency (ER) | payer MEDICAID ==
[2020-06-09 07:04] VITALS: BP 137/79; PULSE 69
--- NOTE | 2020-06-09 07:11 | EDM.PDOC ---
ED HPI GENERAL MEDICAL PROBLEM - General Stated Complaint: KIDDNEY PROBLEMS/ABDOMINAL PAIN Time Seen by Provider: 06/09/20 07:03 Source of Information: Reports: Patient, Old Records, RN, RN Notes Reviewed History Limitations: Reports: No Limitations - History of Present Illness INITIAL COMMENTS - FREE TEXT/NARRATIVE: Patient presents to the ED via personal vehicle with complaints of nausea, bilateral flank pain, and hematuria. The patient relates since his last visit to the ED with similar symptoms he has seen his PCP, Dr. Faria on 06/07/20 for outpatient pain management. He also states he has been set up with Urology and Dr. Singh in Physiatry on June 21 to further discuss auto transplant options. He denies vomiting, fever, shaking chills, dysuria, melena, or dark tarry stools. He does attest to ongoing suprapubic tenderness. Flank Pain Score (Numeric/FACES): 10 - Related Data Allergies Allergy/AdvReac Type Severity Reaction Status Date / Time amoxicillin [Amoxicillin] Allergy Rash Verified 06/09/20 07:06 bee venom protein (honey bee) Allergy Cannot Verified 06/09/20 07:06 Remember ketorolac tromethamine Allergy Rash Verified 06/09/20 07:06 [From Toradol] metoclopramide [From Reglan] Allergy Agitation Verified 06/09/20 07:06 promethazine HCl Allergy Hallucinati Verified 06/09/20 07:06 [From Phenergan] ons tramadol HCl [From Ultram] Allergy Rash Verified 06/09/20 07:06 Home Meds: Home Meds Losartan [Cozaar] 25 mg PO DAILY 04/02/20 [History] oxyCODONE HCl [Oxycodone HCL] 10 mg PO Q6H PRN 05/09/20 [History] Tamsulosin HCl [Flomax] 0.4 mg PO DAILY 05/30/20 [History] oxyCODONE HCl/Acetaminophen [Oxycodone-Acetaminophen 5-325] 1 each PO Q6H PRN #2 tablet 05/30/20 [Rx] Past Medical History - Past Health History Medical/Surgical History: Denies Medical/Surgical History HEENT History: Reports: None Cardiovascular History: Reports: None Respiratory History: Reports: None Gastrointestinal History: Reports: Gastritis, GERD, Other (See Below) Other Gastrointestinal History: gallbladder pain Genitourinary History: Reports: Renal Calculus, Other (See Below) Other Genitourinary History: Vascular kidney disease Musculoskeletal History: Reports: None Neurological History: Reports: None Psychiatric History: Reports: Addiction Endocrine/Metabolic History: Reports: Obesity/BMI 30+ Hematologic History: Reports: None Immunologic History: Reports: None Oncologic (Cancer) History: Reports: None Dermatologic History: Reports: None - Infectious Disease History Infectious Disease History: Reports: None - Past Surgical History Head Surgeries/Procedures: Reports: None HEENT Surgical History: Reports: None Cardiovascular Surgical History: Reports: None GI Surgical History: Reports: Appendectomy, Cholecystectomy Male Surgical History: Reports: Circumcision Other Male Surgeries/Procedures: Has had kidney biopsy Musculoskeletal Surgical History: Reports: Other (See Below) Other Musculoskeletal Surgeries/Procedures:: left arm Social & Family History - Family History Family Medical History: Noncontributory - Caffeine Use Caffeine Use: Reports: None Caffeine Use Comment: 32 oz daily - Living Situation & Occupation Living situation: Reports: Single, Alone Occupation: Employed ED ROS GENERAL - Review of Systems Review Of Systems: Comprehensive ROS is negative, except as noted in HPI. ED EXAM, RENAL/ - Physical Exam Exam: See Below Exam Limited By: No Limitations General Appearance: Alert, WD/WN, No Apparent Distress Cardiovascular: Regular Rate, Rhythm GI/Abdominal: Normal Bowel Sounds, Soft, No Organomegaly, No Distention, No Mass, Tender (Suprapubic tenderness) (Male) Exam: Deferred Rectal (Males) Exam: Deferred Back Exam: Normal Inspection, CVA Tenderness (L), CVA Tenderness (R). No: Decreased Range of Motion, Paraspinal Tenderness, Vertebral Tenderness Neurological: Alert, Oriented, CN II-XII Intact Skin Exam: Warm, Intact, Normal Color, No Rash Course - Vital Signs Last Recorded V/S: Last Vital Signs Temp 98.6 F 06/09/20 07:03 Pulse 69 06/09/20 07:03 Resp 20 06/09/20 07:03 BP 137/79 06/09/20 07:03 Pulse Ox 98 06/09/20 07:03 - Orders/Labs/Meds Meds: Medications Discontinued Medications Generic Name Dose Route Start Last Admin Trade Name Freq PRN Reason Stop Dose Admin Hydromorphone HCl 2 mg 06/09/20 07:14 06/09/20 07:20 Dilaudid IM 06/09/20 07:15 2 mg ONETIME ONE Administration Ondansetron HCl 4 mg 06/09/20 07:13 06/09/20 07:20 Zofran Odt PO 06/09/20 07:14 4 mg ONETIME ONE Administration - Re-Assessments/Exams Free Text/Narrative Re-Assessment/Exam: 06/09/20 07:15 Will treat with Dilaudid 2mg IM and Zofran 4mg SL. Will discharge home. Departure - Departure Time of Disposition: 07:36 Disposition: Home, Self-Care 01 Condition: Good Clinical Impression: Bilateral flank pain, Loin pain hematuria syndrome - Discharge Information *PRESCRIPTION DRUG MONITORING PROGRAM REVIEWED*: Not Applicable *COPY OF PRESCRIPTION DRUG MONITORING REPORT IN PATIENT NICO: Not Applicable Instructions: What You Need to Know About Chronic Back Pain Forms: ED Department Discharge Additional Instructions: Continue following with Dr. Faria for pain management. Keep appointment on June 21 with Urology and Physiatry. Drink plenty of fluids. Eat small meals to help with nausea. Sepsis Event Note (ED) - Focused Exam Vital Signs: Vital Signs Temp Pulse Resp BP Pulse Ox 06/09/20 07:03 98.6 F 69 20 137/79 98
[2020-06-09] MEDS ORDERED: Ondansetron 4 MG Tab.DIS PO ONE (07:13)
[2020-06-09] MEDS ORDERED: HYDROmorphone 1 MG/ML Syringe IM ONE (07:14)
== END 2020-06-09 07:55 | disposition home or self-care (01) ==
LOC: DL.ED 06:51
DX: N39.8 Other specified disorders of urinary system (principal); E66.9 Obesity, unspecified; Z68.42 Body mass index [BMI] 45.0-49.9, adult; Z88.1 Allergy status to other antibiotic agents; Z91.030 Bee allergy status; Z88.6 Allergy status to analgesic agent; Z88.8 Allergy status to other drugs, medicaments and biological substances; Z88.5 Allergy status to narcotic agent; Z79.899 Other long term (current) drug therapy
CPT/HCPCS: 96372; 99283; A9270; J1170

== ENCOUNTER 2020-06-10 06:35 | Emergency (ER) | payer MEDICAID ==
[2020-06-10 06:48] VITALS: BP 136/80; PULSE 57
--- NOTE | 2020-06-10 07:00 | EDM.PDOC ---
ED HPI GENERAL MEDICAL PROBLEM - General Chief Complaint: Genitourinary Problem Stated Complaint: NAUSEA/KIDNEY PAIN Time Seen by Provider: 06/10/20 07:10 Source of Information: Reports: Patient, Old Records, RN, RN Notes Reviewed History Limitations: Reports: No Limitations - History of Present Illness INITIAL COMMENTS - FREE TEXT/NARRATIVE: Patient presents to the ED via personal vehicle for the second time in 24 hour period for his ongoing hematuria and bilateral flank pain. Per the patient report, he has an appointment with his primary care provider, Dr. 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 The patient states his last dose of medication was Oxycodone 5mg at 0300 with a dose of Tylenol 650mg shortly after. He relates the oral medications are not appropriately managing his pain, and only make him nauseas. Additionally, the patient relates his appointment with Dr. Singh was cancelled by his office "...due to the rarity of his disease." He does attest to still having an appointment with Urology at [facility] on June 21. Today he reports continued severe bilateral flank pain and hematuria. He denies dysuria, fever, shaking chills, melena, pain with stools, or changes to his bowel/bladder patterns. Treatments MOLD STAMPER: Reports: Acetaminophen Lower Back Pain Score (Numeric/FACES): 9 - Related Data Allergies Allergy/AdvReac Type Severity Reaction Status Date / Time amoxicillin [Amoxicillin] Allergy Rash Verified 06/10/20 06:48 bee venom protein (honey bee) Allergy Cannot Verified 06/10/20 06:48 Remember ketorolac tromethamine Allergy Rash Verified 06/10/20 06:48 [From Toradol] metoclopramide [From Reglan] Allergy Agitation Verified 06/10/20 06:48 promethazine HCl Allergy Hallucinati Verified 06/10/20 06:48 [From Phenergan] ons tramadol HCl [From Ultram] Allergy Rash Verified 06/10/20 06:48 Home Meds: Home Meds Losartan [Cozaar] 25 mg PO DAILY 04/02/20 [History] oxyCODONE HCl [Oxycodone HCL] 10 mg PO Q6H PRN 05/09/20 [History] Tamsulosin HCl [Flomax] 0.4 mg PO DAILY 05/30/20 [History] Past Medical History - Past Health History Medical/Surgical History: Denies Medical/Surgical History HEENT History: Reports: None Cardiovascular History: Reports: None Respiratory History: Reports: None Gastrointestinal History: Reports: Gastritis, GERD, Other (See Below) Other Gastrointestinal History: gallbladder pain Genitourinary History: Reports: Renal Calculus, Other (See Below) Other Genitourinary History: Vascular kidney disease Musculoskeletal History: Reports: None Neurological History: Reports: None Psychiatric History: Reports: Addiction Endocrine/Metabolic History: Reports: Obesity/BMI 30+ Hematologic History: Reports: None Immunologic History: Reports: None Oncologic (Cancer) History: Reports: None Dermatologic History: Reports: None - Infectious Disease History Infectious Disease History: Reports: None - Past Surgical History Head Surgeries/Procedures: Reports: None HEENT Surgical History: Reports: None Cardiovascular Surgical History: Reports: None GI Surgical History: Reports: Appendectomy, Cholecystectomy Male Surgical History: Reports: Circumcision Other Male Surgeries/Procedures: Has had kidney biopsy Musculoskeletal Surgical History: Reports: Other (See Below) Other Musculoskeletal Surgeries/Procedures:: left arm Social & Family History - Family History Family Medical History: Noncontributory - Tobacco Use Years of Tobacco use: 14 Packs/Tins Daily: 0.3 - Caffeine Use Caffeine Use: Reports: None Caffeine Use Comment: 32 oz daily - Recreational Drug Use Recreational Drug Use: Yes Drug Use in Last 12 Months: No - Living Situation & Occupation Living situation: Reports: Single, Alone Occupation: Employed ED ROS GENERAL - Review of Systems Review Of Systems: Comprehensive ROS is negative, except as noted in HPI. ED EXAM, RENAL/ - Physical Exam Exam: See Below Exam Limited By: No Limitations General Appearance: Alert, WD/WN, No Apparent Distress Cardiovascular: Regular Rate, Rhythm, No Edema, No Gallop, No Murmur, No Rub GI/Abdominal: Normal Bowel Sounds, Soft, No Distention, No Mass, Tender (Suprapubic tenderness) (Male) Exam: Deferred Rectal (Males) Exam: Deferred Back Exam: CVA Tenderness (L), CVA Tenderness (R). No: Muscle Spasm Neurological: Alert, Oriented, CN II-XII Intact Skin Exam: Warm, Dry, Intact, Normal Color, No Rash. No: Ecchymosis, Erythema, Pallor, Petechiae, Rash Course - Vital Signs Last Recorded V/S: Last Vital Signs Temp 97 F 06/10/20 06:41 Pulse 57 L 06/10/20 06:41 Resp 16 06/10/20 06:41 BP 136/80 06/10/20 06:41 Pulse Ox 99 06/10/20 06:41 - Orders/Labs/Meds Orders: Active Orders 24 hr Category Date Time Status HYDROmorphone [Dilaudid] Med 06/10/20 07:09 Once 2 mg IM ONETIME ONE Ondansetron [Zofran ODT] Med 06/10/20 07:09 Once 4 mg PO ONETIME ONE Medication Orders Hydromorphone HCl (Dilaudid) 2 mg IM ONETIME ONE Stop: 06/10/20 07:10 Meds: Medications Generic Name Dose Route Start Last Admin Trade Name Freq PRN Reason Stop Dose Admin Hydromorphone HCl 2 mg 06/10/20 07:09 Dilaudid IM 06/10/20 07:10 ONETIME ONE - Re-Assessments/Exams Free Text/Narrative Re-Assessment/Exam: 06/10/20 07:24 Will treat acute pain with Dilaudid 2mg IM. Will treat nausea with Zofran 4mg SL. Patient counseled to return to clinic to discuss pain management options with PCP. Departure - Departure Time of Disposition: 07:25 Disposition: Home, Self-Care 01 Condition: Good Clinical Impression: Bilateral flank pain, Loin pain hematuria syndrome - Discharge Information *PRESCRIPTION DRUG MONITORING PROGRAM REVIEWED*: Not Applicable *COPY OF PRESCRIPTION DRUG MONITORING REPORT IN PATIENT NICO: Not Applicable Forms: ED Department Discharge Additional Instructions: Keep appointment with Dr. Faria tomorrow. Discuss plans for pain management, nausea, and referral to higher standard of care if Dr. Singh unable to accept original consult. Sepsis Event Note (ED) - Evaluation Sepsis Screening Result: No Definite Risk - Focused Exam Vital Signs: Vital Signs Temp Pulse Resp BP Pulse Ox 06/10/20 06:41 97 F 57 L 16 136/80 99 - My Orders Last 24 Hours: My Active Orders 06/10/20 07:09 HYDROmorphone [Dilaudid] 2 mg IM ONETIME ONE Ondansetron [Zofran ODT] 4 mg PO ONETIME ONE - Assessment/Plan Last 24 Hours: My Active Orders 10/15/20 07:09 HYDROmorphone [Dilaudid] 2 mg IM ONETIME ONE Ondansetron [Zofran ODT] 4 mg PO ONETIME ONE
[2020-06-10] MEDS ORDERED: HYDROmorphone 1 MG/ML Syringe IM ONE (07:09)
[2020-06-10] MEDS ORDERED: Ondansetron 4 MG Tab.DIS PO ONE (07:09)
== END 2020-06-10 07:29 | disposition home or self-care (01) ==
LOC: DL.ED 06:35
DX: N39.8 Other specified disorders of urinary system (principal); E66.9 Obesity, unspecified; Z68.42 Body mass index [BMI] 45.0-49.9, adult; F17.210 Nicotine dependence, cigarettes, uncomplicated; Z88.1 Allergy status to other antibiotic agents; Z91.030 Bee allergy status; Z88.6 Allergy status to analgesic agent; Z88.8 Allergy status to other drugs, medicaments and biological substances; Z88.5 Allergy status to narcotic agent; Z79.899 Other long term (current) drug therapy
CPT/HCPCS: 96372; 99283; A9270; J1170

== ENCOUNTER 2020-06-11 01:09 | Emergency (ER) | payer MEDICAID ==
[2020-06-11 01:17] VITALS: BP 143/75; PULSE 73
[2020-06-11] MEDS ORDERED: HYDROmorphone 1 MG/ML Syringe IM ONE (01:44)
[2020-06-11] MEDS ORDERED: Ondansetron 4 MG Tab.DIS PO ONE (01:45)
--- NOTE | 2020-06-11 01:49 | EDM.PDOC ---
ED HPI GENERAL MEDICAL PROBLEM - General Chief Complaint: Flank Pain Stated Complaint: LOWER ABD PAIN Time Seen by Provider: 06/11/20 01:15 Source of Information: Reports: Patient History Limitations: Reports: No Limitations - History of Present Illness INITIAL COMMENTS - FREE TEXT/NARRATIVE: ED ambulatory with c/o kidney pain and nausea. Girlfriend reported to nursing that he has run out of his pain medications and due for refill in am. States was seen today by Dr Liao. Urology appt on 06/21. Reports referral made to have eval in [place]. Nausea. no fever no vomiting. Stools loose. Last Zofran 2199 Bilateral Flank Pain Score (Numeric/FACES): 8 - Related Data Allergies Allergy/AdvReac Type Severity Reaction Status Date / Time amoxicillin [Amoxicillin] Allergy Rash Verified 06/11/20 01:19 bee venom protein (honey bee) Allergy Cannot Verified 06/11/20 01:19 Remember ketorolac tromethamine Allergy Rash Verified 06/11/20 01:19 [From Toradol] metoclopramide [From Reglan] Allergy Agitation Verified 06/11/20 01:19 promethazine HCl Allergy Hallucinati Verified 06/11/20 01:19 [From Phenergan] ons tramadol HCl [From Ultram] Allergy Rash Verified 06/11/20 01:19 Home Meds: Home Meds Losartan [Cozaar] 25 mg PO DAILY 04/02/20 [History] oxyCODONE HCl [Oxycodone HCL] 10 mg PO Q6H PRN 05/09/20 [History] Tamsulosin HCl [Flomax] 0.4 mg PO DAILY 05/30/20 [History] Past Medical History - Past Health History Medical/Surgical History: Denies Medical/Surgical History HEENT History: Reports: None Cardiovascular History: Reports: None Respiratory History: Reports: None Gastrointestinal History: Reports: Gastritis, GERD, Other (See Below) Other Gastrointestinal History: gallbladder pain Genitourinary History: Reports: Renal Calculus, Other (See Below) Other Genitourinary History: Vascular kidney disease Musculoskeletal History: Reports: None Neurological History: Reports: None Psychiatric History: Reports: Addiction Endocrine/Metabolic History: Reports: Obesity/BMI 30+ Hematologic History: Reports: None Immunologic History: Reports: None Oncologic (Cancer) History: Reports: None Dermatologic History: Reports: None - Infectious Disease History Infectious Disease History: Reports: None - Past Surgical History Head Surgeries/Procedures: Reports: None HEENT Surgical History: Reports: None Cardiovascular Surgical History: Reports: None GI Surgical History: Reports: Appendectomy, Cholecystectomy Male Surgical History: Reports: Circumcision Other Male Surgeries/Procedures: Has had kidney biopsy Musculoskeletal Surgical History: Reports: Other (See Below) Other Musculoskeletal Surgeries/Procedures:: left arm Social & Family History - Family History Family Medical History: Noncontributory - Tobacco Use Tobacco Use Status *Q: Never Tobacco User Second Hand Smoke Exposure: No - Caffeine Use Caffeine Use: Reports: None Caffeine Use Comment: 32 oz daily - Recreational Drug Use Recreational Drug Use: No - Living Situation & Occupation Living situation: Reports: Single, Alone Occupation: Employed ED ROS GENERAL - Review of Systems Review Of Systems: Comprehensive ROS is negative, except as noted in HPI. ED EXAM, RENAL/ - Physical Exam Exam: See Below Exam Limited By: No Limitations General Appearance: Alert, No Apparent Distress, Obese Eye Exam: Bilateral Eye: EOMI Nose: Normal Inspection Throat/Mouth: Normal Inspection Head: Atraumatic, Normocephalic Neck: Normal Inspection Respiratory/Chest: No Respiratory Distress, Lungs Clear, Normal Breath Sounds Cardiovascular: Normal Peripheral Pulses, Regular Rate, Rhythm GI/Abdominal: Normal Bowel Sounds, Soft Back Exam: CVA Tenderness (L), CVA Tenderness (R) Neurological: Alert, Oriented, Normal Cognition Psychiatric: Normal Affect, Normal Mood Skin Exam: Warm, Dry, Intact, Normal Color Course - Vital Signs Last Recorded V/S: Last Vital Signs Temp 97 F 06/11/20 01:15 Pulse 73 06/11/20 01:15 Resp 18 06/11/20 01:15 BP 143/75 H 06/11/20 01:15 Pulse Ox 98 06/11/20 01:15 - Orders/Labs/Meds Meds: Medications Discontinued Medications Generic Name Dose Route Start Last Admin Trade Name Karthikeyanq PRN Reason Stop Dose Admin Hydromorphone HCl 2 mg 06/11/20 01:44 06/11/20 01:52 Dilaudid IM 06/11/20 01:45 2 mg ONETIME ONE Administration Ondansetron HCl 4 mg 06/11/20 01:45 06/11/20 01:52 Zofran Odt PO 10/16/20 01:46 4 mg ONETIME ONE Administration Departure - Departure Time of Disposition: 01:45 Disposition: Home, Self-Care 01 Condition: Fair Clinical Impression: History of Henoch-Schonlein purpura Chronic pain Qualifiers: Chronic pain type: other chronic pain Qualified Code(s): G89.29 - Other chronic pain - Discharge Information *PRESCRIPTION DRUG MONITORING PROGRAM REVIEWED*: No *COPY OF PRESCRIPTION DRUG MONITORING REPORT IN PATIENT NICO: No Instructions: Pain Medicine Instructions Forms: ED Department Discharge Additional Instructions: Pain medications as prescribed Follow up with Primary Care Follow up with urologist as scheduled increase fluids small amounts more frequently zofran 4mg ODT every 4 hours as needed for nausea Sepsis Event Note (ED) - Evaluation Sepsis Screening Result: No Definite Risk - Focused Exam Vital Signs: Vital Signs Temp Pulse Resp BP Pulse Ox 06/11/20 01:15 97 F 73 18 143/75 H 98
== END 2020-06-11 02:00 | disposition home or self-care (01) ==
LOC: DL.ED 01:09
DX: G89.29 Other chronic pain (principal); R10.9 Unspecified abdominal pain; E66.9 Obesity, unspecified; Z68.42 Body mass index [BMI] 45.0-49.9, adult; Z88.1 Allergy status to other antibiotic agents; Z91.030 Bee allergy status; Z88.6 Allergy status to analgesic agent; Z88.8 Allergy status to other drugs, medicaments and biological substances; Z88.5 Allergy status to narcotic agent; R11.0 Nausea; Z86.2 Personal history of diseases of the blood and blood-forming organs and certain disorders involving the immune mechanism
CPT/HCPCS: 96372; 99283; A9270; J1170

== ENCOUNTER 2020-06-16 02:45 | Emergency (ER) | payer MEDICAID ==
[2020-06-16 02:55] VITALS: BP 133/86; PULSE 83
--- NOTE | 2020-06-16 02:56 | EDM.PDOC ---
ED HPI GENERAL MEDICAL PROBLEM - General Stated Complaint: NAUSEOUS AND KIDNEY PAIN Time Seen by Provider: 06/16/20 02:55 Source of Information: Reports: Patient History Limitations: Reports: No Limitations - History of Present Illness INITIAL COMMENTS - FREE TEXT/NARRATIVE: ED with c/o kidney pain and is nauseated. Woke about one hour ago with pain. Did not take any of home medications. Does have Zofran at home. Pain similar to usual. no fever or chills. Urology follow up on 06/21 for referral to [facility] or [facility]. 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 Patient has been seen 11 times this month for same complaint. Has received narcotics from 4 different providers this month . Bilateral Flank Pain Score (Numeric/FACES): 9 - Related Data Allergies Allergy/AdvReac Type Severity Reaction Status Date / Time amoxicillin [Amoxicillin] Allergy Rash Verified 06/11/20 01:19 bee venom protein (honey bee) Allergy Cannot Verified 06/11/20 01:19 Remember ketorolac tromethamine Allergy Rash Verified 06/11/20 01:19 [From Toradol] metoclopramide [From Reglan] Allergy Agitation Verified 06/11/20 01:19 promethazine HCl Allergy Hallucinati Verified 06/11/20 01:19 [From Phenergan] ons tramadol HCl [From Ultram] Allergy Rash Verified 06/11/20 01:19 Home Meds: Home Meds Losartan [Cozaar] 25 mg PO DAILY 04/02/20 [History] oxyCODONE HCl [Oxycodone HCL] 10 mg PO Q6H PRN 05/09/20 [History] Tamsulosin HCl [Flomax] 0.4 mg PO DAILY 05/30/20 [History] Past Medical History - Past Health History Medical/Surgical History: Denies Medical/Surgical History HEENT History: Reports: None Cardiovascular History: Reports: None Respiratory History: Reports: None Gastrointestinal History: Reports: Gastritis, GERD, Other (See Below) Other Gastrointestinal History: gallbladder pain Genitourinary History: Reports: Renal Calculus, Other (See Below) Other Genitourinary History: Vascular kidney disease Musculoskeletal History: Reports: None Neurological History: Reports: None Psychiatric History: Reports: Addiction Endocrine/Metabolic History: Reports: Obesity/BMI 30+ Hematologic History: Reports: None Immunologic History: Reports: None Oncologic (Cancer) History: Reports: None Dermatologic History: Reports: None - Infectious Disease History Infectious Disease History: Reports: None - Past Surgical History Head Surgeries/Procedures: Reports: None HEENT Surgical History: Reports: None Cardiovascular Surgical History: Reports: None GI Surgical History: Reports: Appendectomy, Cholecystectomy Male Surgical History: Reports: Circumcision Other Male Surgeries/Procedures: Has had kidney biopsy Musculoskeletal Surgical History: Reports: Other (See Below) Other Musculoskeletal Surgeries/Procedures:: left arm Social & Family History - Family History Family Medical History: Noncontributory - Caffeine Use Caffeine Use: Reports: None Caffeine Use Comment: 32 oz daily - Living Situation & Occupation Living situation: Reports: Single, Alone Occupation: Employed ED ROS GENERAL - Review of Systems Review Of Systems: Comprehensive ROS is negative, except as noted in HPI. ED EXAM, GI/ABD - Physical Exam Exam: See Below Exam Limited By: No Limitations General Appearance: Alert, Mild Distress, Obese Ears: Normal External Exam Nose: Normal Inspection Throat/Mouth: Normal Inspection Head: Atraumatic, Normocephalic Neck: Normal Inspection Respiratory/Chest: No Respiratory Distress Cardiovascular: Normal Peripheral Pulses, Regular Rate, Rhythm GI/Abdominal Exam: Normal Bowel Sounds, Soft Back Exam: CVA Tenderness (R) Psychiatric: Normal Affect Skin Exam: Warm, Dry, Normal Color Course - Vital Signs Last Recorded V/S: Last Vital Signs Temp 96.6 F L 06/16/20 02:51 Pulse 83 06/16/20 02:51 Resp 16 06/16/20 02:51 BP 133/86 06/16/20 02:51 Pulse Ox 99 06/16/20 02:51 - Orders/Labs/Meds Meds: Medications Discontinued Medications Generic Name Dose Route Start Last Admin Trade Name Freq PRN Reason Stop Dose Admin Hydromorphone HCl 1 mg 06/16/20 03:14 06/16/20 03:20 Dilaudid IM 06/16/20 03:15 1 mg ONETIME ONE Administration Ondansetron HCl 4 mg 06/16/20 03:14 06/16/20 03:21 Zofran Odt PO 06/16/20 03:15 4 mg ONETIME ONE Administration Departure - Departure Time of Disposition: 03:22 Disposition: Home, Self-Care 01 Condition: Good Clinical Impression: Ureteric colic, Henoch-Ruth nlein purpura - Discharge Information *PRESCRIPTION DRUG MONITORING PROGRAM REVIEWED*: No *COPY OF PRESCRIPTION DRUG MONITORING REPORT IN PATIENT NICO: No Instructions: Renal Colic, [id number] Forms: ED Department Discharge Additional Instructions: increase fluids take medications as prescribed including zofran follow up with urologist as scheduled
[2020-06-16] MEDS ORDERED: Ondansetron 4 MG Tab.DIS PO ONE (03:14)
[2020-06-16] MEDS ORDERED: HYDROmorphone 1 MG/ML Syringe IM ONE (03:14)
== END 2020-06-16 03:30 | disposition home or self-care (01) ==
LOC: DL.ED 02:45
DX: D69.0 Allergic purpura (principal); N23 Unspecified renal colic; E66.9 Obesity, unspecified; Z68.41 Body mass index [BMI] 40.0-44.9, adult; Z88.1 Allergy status to other antibiotic agents; Z91.030 Bee allergy status; Z88.6 Allergy status to analgesic agent; Z88.8 Allergy status to other drugs, medicaments and biological substances; Z88.5 Allergy status to narcotic agent
CPT/HCPCS: 96372; 99283; A9270-GY; J1170

== ENCOUNTER 2020-06-20 15:06 | Emergency (ER) | payer MEDICAID ==
[2020-06-20 15:41] VITALS: BP 156/89; PULSE 80
--- NOTE | 2020-06-20 16:12 | EDM.PDOC ---
ED HPI GENERAL MEDICAL PROBLEM - General Chief Complaint: Genitourinary Problem Stated Complaint: PASSING BLOOD, KIDNEYS, GROIN AREA Time Seen by Provider: 06/20/20 16:02 Source of Information: Reports: Patient History Limitations: Reports: No Limitations - History of Present Illness INITIAL COMMENTS - FREE TEXT/NARRATIVE: Patient is here for a flare of his chronic pain. He has a contract with Dr. Faria and has been seen in the ER >10 times this month for dilaudid. He is due to see urology tomorrow. He was recently started on oxycontin on 06/10 in an attempt to better control the baseline pain so he can use his percocet for breakthrough pain. Duration: Getting Worse, Waxing/Waning Location: Reports: Back, Pelvis Quality: Reports: Ache, Stabbing - Related Data Allergies Allergy/AdvReac Type Severity Reaction Status Date / Time amoxicillin [Amoxicillin] Allergy Rash Verified 06/20/20 15:40 bee venom protein (honey bee) Allergy Cannot Verified 06/20/20 15:40 Remember ketorolac tromethamine Allergy Rash Verified 06/20/20 15:40 [From Toradol] metoclopramide [From Reglan] Allergy Agitation Verified 06/20/20 15:40 promethazine HCl Allergy Hallucinati Verified 06/20/20 15:40 [From Phenergan] ons tramadol HCl [From Ultram] Allergy Rash Verified 06/20/20 15:40 Home Meds: Home Meds Losartan [Cozaar] 25 mg PO DAILY 04/02/20 [History] Tamsulosin HCl [Flomax] 0.4 mg PO DAILY 05/30/20 [History] oxyCODONE ER [OxyCONTIN] 1 tab PO BID 06/20/20 [History] oxyCODONE HCl/Acetaminophen [Percocet 10-325 mg Tablet] 0.5 tab PO Q6H PRN 06/20/20 [History] Past Medical History - Past Health History Medical/Surgical History: Denies Medical/Surgical History HEENT History: Reports: None Cardiovascular History: Reports: None Respiratory History: Reports: None Gastrointestinal History: Reports: Gastritis, GERD, Other (See Below) Other Gastrointestinal History: gallbladder pain Genitourinary History: Reports: Renal Calculus, Other (See Below) Other Genitourinary History: Vascular kidney disease. Chronic kidney and bladder pain, blood in urine Musculoskeletal History: Reports: None Neurological History: Reports: None Psychiatric History: Reports: Addiction Endocrine/Metabolic History: Reports: Obesity/BMI 30+ Hematologic History: Reports: None Immunologic History: Reports: None Oncologic (Cancer) History: Reports: None Dermatologic History: Reports: None - Infectious Disease History Infectious Disease History: Reports: None - Past Surgical History Head Surgeries/Procedures: Reports: None HEENT Surgical History: Reports: None Cardiovascular Surgical History: Reports: None GI Surgical History: Reports: Appendectomy, Cholecystectomy Male Surgical History: Reports: Circumcision Other Male Surgeries/Procedures: Has had kidney biopsy Musculoskeletal Surgical History: Reports: Other (See Below) Other Musculoskeletal Surgeries/Procedures:: left arm Social & Family History - Family History Family Medical History: Noncontributory - Tobacco Use Tobacco Use Status *Q: Unknown Ever Used Tobacco - Caffeine Use Caffeine Use: Reports: None Caffeine Use Comment: 32 oz daily - Living Situation & Occupation Living situation: Reports: Single, Alone Occupation: Employed ED ROS GENERAL - Review of Systems Review Of Systems: Comprehensive ROS is negative, except as noted in HPI. ED EXAM, NEURO - Physical Exam Exam: See Below Exam Limited By: No Limitations General Appearance: Alert, WD/WN, Mild Distress Throat/Mouth: Normal Voice, No Airway Compromise Head Exam: Atraumatic, Normocephalic Respiratory/Chest: No Respiratory Distress, Lungs Clear, Normal Breath Sounds, No Accessory Muscle Use, Chest Non-Tender Cardiovascular: Regular Rate, Rhythm, No Murmur GI/Abdominal: Soft, Non-Tender, No Distention Neurological: Alert, Normal Mood/Affect, Normal Gait, Normal Reflexes, Oriented x 3 Back Exam: Normal Inspection, Full Range of Motion Psychiatric: Normal Affect, Normal Mood Skin Exam: Warm, Dry, Intact, Normal Color, No Rash Course - Vital Signs Last Recorded V/S: Last Vital Signs Temp 98.9 F 06/20/20 15:23 Pulse 80 06/20/20 15:23 Resp 18 06/20/20 15:23 BP 156/89 H 06/20/20 15:23 Pulse Ox 99 06/20/20 15:23 - Orders/Labs/Meds Orders: Active Orders 24 hr Category Date Time Status DRUG SCREEN URINE BIORAD [URCHEM] Stat Lab 06/20/20 16:15 Received Labs: Laboratory Tests 06/20/20 Range/Units 16:15 Urine Color [place] (YELLOW) Urine Appearance Slightly cloudy (CLEAR) Urine pH 7.0 (5.0-9.0) Ur Specific Flas[place] 1.025 (1.005-1.030) Urine Protein Trace H (NEGATIVE) Urine Glucose (UA) Negative (NEGATIVE) Urine Ketones Trace H (NEGATIVE) Urine Occult Blood Large H (NEGATIVE) Urine Nitrite Negative (NEGATIVE) Urine Bilirubin Negative (NEGATIVE) Urine Urobilinogen 0.2 (0.2-1.0) mg/dL Ur Leukocyte Esterase Negative (NEGATIVE) Urine RBC >100 H /HPF Urine WBC 0-5 (0-5/HPF) /HPF Ur Epithelial Cells Moderate H (NOT SEEN) /HPF Urine Bacteria Rare (0-FEW/HPF) /HPF Meds: Medications Discontinued Medications Generic Name Dose Route Start Last Admin Trade Name Freq PRN Reason Stop Dose Admin Hydromorphone HCl 2 mg 06/20/20 16:29 06/20/20 16:35 Dilaudid IM 06/20/20 16:30 2 mg ONETIME ONE Administration - Re-Assessments/Exams Free Text/Narrative Re-Assessment/Exam: Patient advised he needed to provide a urine sample before getting any pain medication. Urine sample left was not warm to touch when collected <1 minute after voiding. 06/20/20 16:09 Discussed with patient that we would not be able to treat him until after the results now as as his urine sample was not body temperature. Patient offered to give another sample. Patient was taken to the lab restroom to provide the second sample. 06/20/20 16:19 Patient asked why the urine had to be body temperature to run the test as no one has told him that before or made him give a second sample. Patient was given his dose of IM dilaudid and d/c'ed home. Will send a copy of the UA and UDS, along with a comparison to the first sample, to Dr. Faria. 06/20/20 16:32 First sample with large blood and 30 protein. Second sample with large blood, trace protein and trace ketones. UAs were otherwise the same. UDS was the same between samples, positive for THC and oxycodone. 06/20/20 16:55 Departure - Departure Time of Disposition: 16:29 Disposition: Home, Self-Care 01 Condition: Good Clinical Impression: Chronic pain disorder - Discharge Information *PRESCRIPTION DRUG MONITORING PROGRAM REVIEWED*: Not Applicable *COPY OF PRESCRIPTION DRUG MONITORING REPORT IN PATIENT NICO: Not Applicable Forms: ED Department Discharge Additional Instructions: Follow up with PCP in 3-5 days Keep upcoming appointment with urology Work on finding ways to cope with flares at home given excessive ER use Will send a copy of the urine results to Dr. Faria Sepsis Event Note (ED) - Evaluation Sepsis Screening Result: No Definite Risk - Focused Exam Vital Signs: Vital Signs Temp Pulse Resp BP Pulse Ox 06/20/20 15:23 98.9 F 80 18 156/89 H 99 - My Orders Last 24 Hours: My Active Orders 06/20/20 16:15 DRUG SCREEN URINE BIORAD [URCHEM] Stat - Assessment/Plan Last 24 Hours: My Active Orders 06/20/20 16:15 DRUG SCREEN URINE BIORAD [URCHEM] Stat
[2020-06-20] MEDS ORDERED: HYDROmorphone 1 MG/ML Syringe IM ONE (16:29)
== END 2020-06-20 16:37 | disposition home or self-care (01) ==
LOC: DL.ED 15:06
DX: R10.2 Pelvic and perineal pain (principal); G89.29 Other chronic pain; M54.9 Dorsalgia, unspecified; E66.9 Obesity, unspecified; Z88.1 Allergy status to other antibiotic agents; Z88.6 Allergy status to analgesic agent; Z88.5 Allergy status to narcotic agent; Z88.8 Allergy status to other drugs, medicaments and biological substances; Z91.030 Bee allergy status; Z90.49 Acquired absence of other specified parts of digestive tract; Z79.899 Other long term (current) drug therapy; Z68.41 Body mass index [BMI] 40.0-44.9, adult
CPT/HCPCS: 80305; 81001; 96372; 99283; J1170

== ENCOUNTER 2020-06-21 18:10 | Emergency (ER) | payer MEDICAID ==
[2020-06-21 18:23] VITALS: BP 140/79; PULSE 79
[2020-06-21] MEDS ORDERED: HYDROmorphone 1 MG/ML Syringe IM ONE (18:44)
--- NOTE | 2020-06-21 18:47 | EDM.PDOC ---
ED HPI GENERAL MEDICAL PROBLEM - General Chief Complaint: Genitourinary Problem Stated Complaint: KIDNEYS,BLOOD PEEING, GROIN AREA Time Seen by Provider: 06/21/20 18:40 Source of Information: Reports: Patient, Old Records, RN, RN Notes Reviewed History Limitations: Reports: No Limitations - History of Present Illness INITIAL COMMENTS - FREE TEXT/NARRATIVE: Patient presents to the ED via personal vehicle with ongoing complaints of bilateral flank pain, hematuria, dysuria, and inability to completely void. The patient states he has been taking the Oxycontin BID and Percocet q4h PRN, as prescribed by Dr. Faria, but it is "...not touching the pain." He states he has not taken his Flomax as he ran out; he does attest to not asking for a refill of this prescription. The patient was previously scheduled to be seen with Dr. Vincent in Urology today - the patient states he canceled this appointment as his pain was too great this afternoon. He states he rescheduled this appointment for this Sunday. He does attest to ongoing nausea and diarrhea. He denies vomiting, melena, or hematochezia. Bilateral Flank Pain Score (Numeric/FACES): 9 - Related Data Allergies Allergy/AdvReac Type Severity Reaction Status Date / Time amoxicillin [Amoxicillin] Allergy Rash Verified 06/21/20 18:20 bee venom protein (honey bee) Allergy Cannot Verified 06/21/20 18:20 Remember ketorolac tromethamine Allergy Rash Verified 06/21/20 18:20 [From Toradol] metoclopramide [From Reglan] Allergy Agitation Verified 06/21/20 18:20 promethazine HCl Allergy Hallucinati Verified 06/21/20 18:20 [From Phenergan] ons tramadol HCl [From Ultram] Allergy Rash Verified 06/21/20 18:20 Home Meds: Home Meds Losartan [Cozaar] 25 mg PO DAILY 04/02/20 [History] Tamsulosin HCl [Flomax] 0.4 mg PO DAILY 05/30/20 [History] oxyCODONE ER [OxyCONTIN] 1 tab PO BID 06/20/20 [History] oxyCODONE HCl/Acetaminophen [Percocet 10-325 mg Tablet] 0.5 tab PO Q6H PRN 06/20/20 [History] Ondansetron [Zofran] 4 mg PO Q6H PRN 06/21/20 [History] Past Medical History - Past Health History Medical/Surgical History: Denies Medical/Surgical History HEENT History: Reports: None Cardiovascular History: Reports: None Respiratory History: Reports: None Gastrointestinal History: Reports: Gastritis, GERD, Other (See Below) Other Gastrointestinal History: gallbladder pain Genitourinary History: Reports: Renal Calculus, Other (See Below) Other Genitourinary History: Vascular kidney disease. Chronic kidney and bladder pain, blood in urine Musculoskeletal History: Reports: None Neurological History: Reports: None Psychiatric History: Reports: Addiction Endocrine/Metabolic History: Reports: Obesity/BMI 30+ Hematologic History: Reports: None Immunologic History: Reports: None Oncologic (Cancer) History: Reports: None Dermatologic History: Reports: None - Infectious Disease History Infectious Disease History: Reports: Chicken Pox - Past Surgical History Head Surgeries/Procedures: Reports: None HEENT Surgical History: Reports: None Cardiovascular Surgical History: Reports: None GI Surgical History: Reports: Appendectomy, Cholecystectomy Male Surgical History: Reports: Circumcision Other Male Surgeries/Procedures: Has had kidney biopsy Musculoskeletal Surgical History: Reports: Other (See Below) Other Musculoskeletal Surgeries/Procedures:: left arm Social & Family History - Family History Family Medical History: Noncontributory - Caffeine Use Caffeine Use: Reports: None Caffeine Use Comment: 32 oz daily - Recreational Drug Use Recreational Drug Use: No - Living Situation & Occupation Living situation: Reports: Single, Alone Occupation: Employed ED ROS GENERAL - Review of Systems Review Of Systems: Comprehensive ROS is negative, except as noted in HPI. ED EXAM, RENAL/ - Physical Exam Exam: See Below Exam Limited By: No Limitations General Appearance: Alert, WD/WN, No Apparent Distress Respiratory/Chest: Lungs Clear, No Accessory Muscle Use, Chest Non-Tender Cardiovascular: Normal Peripheral Pulses, Regular Rate, Rhythm, No Edema, No Gallop, No Murmur, No Rub GI/Abdominal: Normal Bowel Sounds, Soft, No Distention, No Mass, Tender (Suprapubic tenderness) (Male) Exam: Deferred Rectal (Males) Exam: Deferred Back Exam: CVA Tenderness (L), CVA Tenderness (R) Skin Exam: Warm, Dry, Intact, Normal Color, No Rash Course - Vital Signs Last Recorded V/S: Last Vital Signs Temp 97.6 F 06/21/20 18:22 Pulse 79 06/21/20 18:22 Resp 16 06/21/20 18:22 BP 140/79 06/21/20 18:22 Pulse Ox 100 06/21/20 18:22 - Orders/Labs/Meds Meds: Medications Discontinued Medications Generic Name Dose Route Start Last Admin Trade Name Chavo PRN Reason Stop Dose Admin Hydromorphone HCl 2 mg 06/21/20 18:44 Dilaudid IM 06/21/20 18:45 ONETIME ONE Tamsulosin HCl 0.4 mg 06/21/20 18:48 Flomax PO 06/21/20 18:49 ONETIME ONE Departure - Departure Time of Disposition: 19:01 Disposition: Home, Self-Care 01 Condition: Good Clinical Impression: Loin pain hematuria syndrome - Discharge Information *PRESCRIPTION DRUG MONITORING PROGRAM REVIEWED*: Not Applicable *COPY OF PRESCRIPTION DRUG MONITORING REPORT IN PATIENT NICO: Not Applicable Forms: ED Department Discharge Additional Instructions: Keep appointment with Urology. It is imperative to your ongoing syndrome that you meet with appropriate specialists who can help you with this problem. Follow up with Dr. Faria regarding Flomax prescription refill. This medication assists you to fully empty your bladder. Sepsis Event Note (ED) - Evaluation Sepsis Screening Result: No Definite Risk - Focused Exam Vital Signs: Vital Signs Temp Pulse Resp BP Pulse Ox 06/21/20 18:22 97.6 F 79 16 140/79 100
[2020-06-21] MEDS ORDERED: Tamsulosin 0.4 MG Cap.ER PO ONE (18:48)
== END 2020-06-21 19:11 | disposition home or self-care (01) ==
LOC: DL.ED 18:10
DX: N39.8 Other specified disorders of urinary system (principal); E66.9 Obesity, unspecified; Z88.1 Allergy status to other antibiotic agents; Z91.030 Bee allergy status; Z88.6 Allergy status to analgesic agent; Z88.8 Allergy status to other drugs, medicaments and biological substances; Z88.5 Allergy status to narcotic agent; Z79.899 Other long term (current) drug therapy
CPT/HCPCS: 96372; 99283; A9270; J1170

== ENCOUNTER 2020-06-22 10:03 | Emergency (ER) | payer MEDICAID ==
[2020-06-22 11:02] VITALS: BP 130/70; PULSE 70
--- NOTE | 2020-06-22 11:20 | EDM.PDOC ---
ED HPI GENERAL MEDICAL PROBLEM - General Chief Complaint: Abdominal Pain Stated Complaint: KIDNEY/ABDOMINAL PAIN Time Seen by Provider: 06/22/20 11:09 Source of Information: Reports: Patient, Old Records, Provider, RN, RN Notes Reviewed History Limitations: Reports: No Limitations - History of Present Illness INITIAL COMMENTS - FREE TEXT/NARRATIVE: Patient presents to ED via personal vehicle for ongoing complaints of bilateral flank pain, dysuria, hematuria, and inability to fully void. Cleaning Matron spoke with patient's PCP, Dr. 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 Per Dr. Faria, the patient states the two analgesics he has been prescribed by her (Oxycontin XR and Percocet) appropriately manage his pain; he is in a pain contract with her for these medications. Dr. Faria states that he is in breech of this contract by utilizing the ED for analgesics. The patient states his symptoms are similar to his visit yesterday, they are not worsening. He states he is still out of Flomax and has not spoken with Dr. Faria about refilling this medication. He denied want for a medical examination today as he will see Dr. Faria tomorrow, as previously scheduled. Abdomen Pain Score (Numeric/FACES): 10 - Related Data Allergies Allergy/AdvReac Type Severity Reaction Status Date / Time amoxicillin [Amoxicillin] Allergy Rash Verified 06/22/20 11:02 bee venom protein (honey bee) Allergy Cannot Verified 06/22/20 11:02 Remember ketorolac tromethamine Allergy Rash Verified 06/22/20 11:02 [From Toradol] metoclopramide [From Reglan] Allergy Agitation Verified 06/22/20 11:02 promethazine HCl Allergy Hallucinati Verified 06/22/20 11:02 [From Phenergan] ons tramadol HCl [From Ultram] Allergy Rash Verified 06/22/20 11:02 Home Meds: Home Meds Losartan [Cozaar] 25 mg PO DAILY 04/02/20 [History] Tamsulosin HCl [Flomax] 0.4 mg PO DAILY 05/30/20 [History] oxyCODONE ER [OxyCONTIN] 1 tab PO BID 06/20/20 [History] oxyCODONE HCl/Acetaminophen [Percocet 10-325 mg Tablet] 0.5 tab PO Q6H PRN 06/20/20 [History] Ondansetron [Zofran] 4 mg PO Q6H PRN 06/21/20 [History] Past Medical History - Past Health History Medical/Surgical History: Denies Medical/Surgical History HEENT History: Reports: None Cardiovascular History: Reports: None Respiratory History: Reports: None Gastrointestinal History: Reports: Gastritis, GERD, Other (See Below) Other Gastrointestinal History: gallbladder pain Genitourinary History: Reports: Renal Calculus, Other (See Below) Other Genitourinary History: Vascular kidney disease. Chronic kidney and bladder pain, blood in urine Musculoskeletal History: Reports: None Neurological History: Reports: None Psychiatric History: Reports: Addiction Endocrine/Metabolic History: Reports: Obesity/BMI 30+ Hematologic History: Reports: None Immunologic History: Reports: None Oncologic (Cancer) History: Reports: None Dermatologic History: Reports: None - Infectious Disease History Infectious Disease History: Reports: Chicken Pox - Past Surgical History Head Surgeries/Procedures: Reports: None HEENT Surgical History: Reports: None Cardiovascular Surgical History: Reports: None GI Surgical History: Reports: Appendectomy, Cholecystectomy Male Surgical History: Reports: Circumcision Other Male Surgeries/Procedures: Has had kidney biopsy Musculoskeletal Surgical History: Reports: Other (See Below) Other Musculoskeletal Surgeries/Procedures:: left arm Social & Family History - Family History Family Medical History: Noncontributory - Tobacco Use Tobacco Use Status *Q: Never Tobacco User - Caffeine Use Caffeine Use: Reports: None Caffeine Use Comment: 32 oz daily - Recreational Drug Use Recreational Drug Use: No - Living Situation & Occupation Living situation: Reports: Single, Alone Occupation: Employed ED ROS GENERAL - Review of Systems Review Of Systems: Unable To Obtain Reason Not Obtained: Patient refuse medical examination ED EXAM, RENAL/ - Physical Exam Exam: Not Obtained Course - Vital Signs Last Recorded V/S: Last Vital Signs Temp 97.6 F 06/22/20 10:59 Pulse 70 06/22/20 10:59 Resp 16 06/22/20 10:59 BP 130/70 06/22/20 10:59 Pulse Ox 99 06/22/20 10:59 Departure - Departure Time of Disposition: 11:20 Disposition: Home, Self-Care 01 Condition: Good Clinical Impression: Loin pain hematuria syndrome - Discharge Information *PRESCRIPTION DRUG MONITORING PROGRAM REVIEWED*: Not Applicable *COPY OF PRESCRIPTION DRUG MONITORING REPORT IN PATIENT NICO: Not Applicable Sepsis Event Note (ED) - Evaluation Sepsis Screening Result: No Definite Risk - Focused Exam Vital Signs: Vital Signs Temp Pulse Resp BP Pulse Ox 06/22/20 10:59 97.6 F 70 16 130/70 99
== END 2020-06-22 11:10 | disposition home or self-care (01) ==
LOC: DL.ED 10:03
DX: N39.8 Other specified disorders of urinary system (principal); E66.9 Obesity, unspecified; Z88.1 Allergy status to other antibiotic agents; Z91.030 Bee allergy status; Z88.6 Allergy status to analgesic agent; Z88.8 Allergy status to other drugs, medicaments and biological substances; Z88.5 Allergy status to narcotic agent; Z79.899 Other long term (current) drug therapy
CPT/HCPCS: 99283

== ENCOUNTER 2020-07-05 09:18 | Emergency (ER) | payer MEDICAID ==
[2020-07-05 10:17] VITALS: BP 138/80; PULSE 63
--- NOTE | 2020-07-05 11:36 | EDM.PDOC ---
ED HPI GENERAL MEDICAL PROBLEM - General Chief Complaint: Genitourinary Problem Stated Complaint: BLADDER PRESSURE URINATING BLOOD Time Seen by Provider: 07/05/20 11:35 Source of Information: Reports: Patient, Provider (Dr. Buckley ), RN, RN Notes Reviewed History Limitations: Reports: No Limitations - History of Present Illness INITIAL COMMENTS - FREE TEXT/NARRATIVE: Patient presents to the ED via personal vehicle with complaints of hematuria, dysuria, and inability to fully void. The patient states in addition to his chronic pain with his known loin pain hematuria syndrome, he feels he is in an acute flair. He voices complaints of stabbing pressure to his left anterior groin, as well as bilateral flanks. He states he is able to void, but feels he cannot fully empty his bladder. He states he took one Percocet at 0400 and his Oxycontin ER at 0200; he denies using his Flomax. He states he has attempted to get in to see Dr. Faria, but is unable to see her until the ; he denies attempts to contact her for prescription refills as previously instructed by her office. Additionally, he states he did not go to see Dr. Vincent in urology at [facility], as previously scheduled, as he is in too much pain to make it down there. - Related Data Allergies Allergy/AdvReac Type Severity Reaction Status Date / Time amoxicillin [Amoxicillin] Allergy Rash Verified 07/05/20 09:54 bee venom protein (honey bee) Allergy Cannot Verified 07/05/20 09:54 Remember ketorolac tromethamine Allergy Rash Verified 07/05/20 09:54 [From Toradol] metoclopramide [From Reglan] Allergy Agitation Verified 07/05/20 09:54 promethazine HCl Allergy Hallucinati Verified 07/05/20 09:54 [From Phenergan] ons tramadol HCl [From Ultram] Allergy Rash Verified 07/05/20 09:54 Home Meds: Home Meds Losartan [Cozaar] 25 mg PO DAILY 04/02/20 [History] Tamsulosin HCl [Flomax] 0.4 mg PO DAILY 05/30/20 [History] oxyCODONE ER [OxyCONTIN] 1 tab PO BID 06/20/20 [History] oxyCODONE HCl/Acetaminophen [Percocet 10-325 mg Tablet] 0.5 tab PO Q6H PRN 06/20/20 [History] Ondansetron [Zofran] 4 mg PO Q6H PRN 06/21/20 [History] Past Medical History - Past Health History Medical/Surgical History: Denies Medical/Surgical History HEENT History: Reports: None Cardiovascular History: Reports: None Respiratory History: Reports: None Gastrointestinal History: Reports: Gastritis, GERD, Other (See Below) Other Gastrointestinal History: gallbladder pain Genitourinary History: Reports: Renal Calculus, Other (See Below) Other Genitourinary History: Vascular kidney disease. Chronic kidney and bladder pain, blood in urine Musculoskeletal History: Reports: None Neurological History: Reports: None Psychiatric History: Reports: Addiction Endocrine/Metabolic History: Reports: Obesity/BMI 30+ Hematologic History: Reports: None Immunologic History: Reports: None Oncologic (Cancer) History: Reports: None Dermatologic History: Reports: None - Infectious Disease History Infectious Disease History: Reports: Chicken Pox - Past Surgical History Head Surgeries/Procedures: Reports: None HEENT Surgical History: Reports: None Cardiovascular Surgical History: Reports: None GI Surgical History: Reports: Appendectomy, Cholecystectomy Male Surgical History: Reports: Circumcision Other Male Surgeries/Procedures: Has had kidney biopsy Musculoskeletal Surgical History: Reports: Other (See Below) Other Musculoskeletal Surgeries/Procedures:: left arm Social & Family History - Family History Family Medical History: Noncontributory - Tobacco Use Tobacco Use Status *Q: Never Tobacco User - Caffeine Use Caffeine Use: Reports: None Caffeine Use Comment: 32 oz daily - Recreational Drug Use Recreational Drug Use: No - Living Situation & Occupation Living situation: Reports: Single, Alone Occupation: Employed ED ROS GENERAL - Review of Systems Review Of Systems: Comprehensive ROS is negative, except as noted in HPI. ED EXAM, RENAL/ - Physical Exam Exam: See Below Exam Limited By: No Limitations General Appearance: Alert, WD/WN, No Apparent Distress GI/Abdominal: Normal Bowel Sounds, Soft, No Organomegaly, No Distention, No Abnormal Bruit, No Mass, Pelvis Stable, Tender (To palpation of LLQ) Back Exam: Full Range of Motion, CVA Tenderness (L), CVA Tenderness (R) Neurological: Oriented, CN II-XII Intact, Normal Cognition, Normal Gait, No Motor/Sensory Deficits Skin Exam: Warm, Dry, Intact, Normal Color, No Rash. No: Ecchymosis, Erythema, Mottled, Pallor, Petechiae Course - Vital Signs Last Recorded V/S: Last Vital Signs Temp 97 F 07/05/20 10:17 Pulse 63 07/05/20 10:17 Resp 14 07/05/20 10:17 BP 138/80 07/05/20 10:17 Pulse Ox 98 07/05/20 10:17 - Re-Assessments/Exams Free Text/Narrative Re-Assessment/Exam: 07/05/[address] Diamond Setter [address] with [address] Faria, patient's PCP, regarding today's visit. She states she has not received notification that Elvin needs refills of his prescriptions, which are due. He has not attempted to message her via [employer] and no phone messages have been left for her. She states he needs to continue properly utilizing his outpatient prescriptions, including Flomax, and speak with her regarding medication management for this ongoing problem. Diamond Setter discussed conversation with Dr. Faria with patient. He continues to state he does no go to his urology appointments as he has been there "..six times." Diamond Setter discussed importance of urology with assisting in the treatment of his disease. Patient notified that Dr. Faria would refill his prescriptions today. Patient counseled to follow up with Dr. Faria for ongoing pain management. Departure - Departure Time of Disposition: 11:45 Disposition: Home, Self-Care 01 Condition: Good Clinical Impression: Loin pain hematuria syndrome - Discharge Information *PRESCRIPTION DRUG MONITORING PROGRAM REVIEWED*: Not Applicable *COPY OF PRESCRIPTION DRUG MONITORING REPORT IN PATIENT NICO: Not Applicable Forms: ED Department Discharge Sepsis Event Note (ED) - Evaluation Sepsis Screening Result: No Definite Risk - Focused Exam Vital Signs: Vital Signs Temp Pulse Resp BP Pulse Ox 07/05/20 10:17 97 F 63 14 138/80 98
== END 2020-07-05 11:38 | disposition home or self-care (01) ==
LOC: DL.ED 09:18
DX: R31.9 Hematuria, unspecified (principal); M54.5 Low back pain; E66.9 Obesity, unspecified; Z79.899 Other long term (current) drug therapy; Z88.6 Allergy status to analgesic agent; Z88.0 Allergy status to penicillin; Z91.030 Bee allergy status; Z88.8 Allergy status to other drugs, medicaments and biological substances
CPT/HCPCS: 99283

== ENCOUNTER 2020-07-08 03:21 | Emergency (ER) | payer MEDICAID ==
[2020-07-08 03:40] VITALS: BP 145/85; PULSE 62
[2020-07-08] MEDS ORDERED: HYDROmorphone 1 MG/ML Syringe IM ONE (03:53)
--- NOTE | 2020-07-08 04:09 | EDM.PDOC ---
ED HPI GENERAL MEDICAL PROBLEM - General Chief Complaint: Abdominal Pain Stated Complaint: PAIN AND PRESSURE IN ABD Time Seen by Provider: 07/08/20 03:35 Source of Information: Reports: Patient History Limitations: Reports: No Limitations - History of Present Illness INITIAL COMMENTS - FREE TEXT/NARRATIVE: ED with c/o of usual c/o bilateral flank pain, lower abdominal pain, "peeing blood" Denies fever chills or vomiting. Has had 6-7 loose stools yesterday. Reports tried to get in to see Dr Bartlett this week and unable. Next urology appointment is scheduled for 07/15. Pat has been seen 16 times in past month for same complaint. Missed previously scheduled appointment with urology. Has been under pain contract with [facility]. PCP has been notified of numerous ED visi ts for "breakthrough pain". Patient seen on Sunday of this week and reported to that provider that he had not been taking Flomax or immediate release oxy because they don't help. Tonight states he is taking all medications including Flomax. Also recently started on Cymbalta, unsure of his dose and unsure when he started med but maybe with in past 1-2 weeks. Is not scheduled to see PCP until after Urology appointment. Abdomen Pain Score (Numeric/FACES): 9 - Related Data Allergies Allergy/AdvReac Type Severity Reaction Status Date / Time amoxicillin [Amoxicillin] Allergy Rash Verified 07/08/20 03:41 bee venom protein (honey bee) Allergy Cannot Verified 07/08/20 03:41 Remember ketorolac tromethamine Allergy Rash Verified 07/08/20 03:41 [From Toradol] metoclopramide [From Reglan] Allergy Agitation Verified 07/08/20 03:41 promethazine HCl Allergy Hallucinati Verified 07/08/20 03:41 [From Phenergan] ons tramadol HCl [From Ultram] Allergy Rash Verified 07/08/20 03:41 Home Meds: Home Meds Losartan [Cozaar] 25 mg PO DAILY 04/02/20 [History] Tamsulosin HCl [Flomax] 0.4 mg PO DAILY 05/30/20 [History] oxyCODONE ER [OxyCONTIN] 1 tab PO BID 06/20/20 [History] oxyCODONE HCl/Acetaminophen [Percocet 10-325 mg Tablet] 0.5 tab PO Q6H PRN 06/20/20 [History] Ondansetron [Zofran] 4 mg PO Q6H PRN 06/21/20 [History] Past Medical History - Past Health History Medical/Surgical History: Denies Medical/Surgical History HEENT History: Reports: None Cardiovascular History: Reports: None Respiratory History: Reports: None Gastrointestinal History: Reports: Gastritis, GERD, Other (See Below) Other Gastrointestinal History: gallbladder pain Genitourinary History: Reports: Renal Calculus, Other (See Below) Other Genitourinary History: Vascular kidney disease. Chronic kidney and bladder pain, blood in urine Musculoskeletal History: Reports: None Neurological History: Reports: None Psychiatric History: Reports: Addiction Endocrine/Metabolic History: Reports: Obesity/BMI 30+ Hematologic History: Reports: None Immunologic History: Reports: None Oncologic (Cancer) History: Reports: None Dermatologic History: Reports: None - Infectious Disease History Infectious Disease History: Reports: Chicken Pox - Past Surgical History Head Surgeries/Procedures: Reports: None HEENT Surgical History: Reports: None Cardiovascular Surgical History: Reports: None GI Surgical History: Reports: Appendectomy, Cholecystectomy Male Surgical History: Reports: Circumcision Other Male Surgeries/Procedures: Has had kidney biopsy Musculoskeletal Surgical History: Reports: Other (See Below) Other Musculoskeletal Surgeries/Procedures:: left arm Social & Family History - Family History Family Medical History: No Pertinent Family History - Tobacco Use Tobacco Use Status *Q: Never Tobacco User Second Hand Smoke Exposure: No - Caffeine Use Caffeine Use: Reports: Soda Caffeine Use Comment: 32 oz daily - Recreational Drug Use Recreational Drug Use: No - Living Situation & Occupation Living situation: Reports: Single, Alone Occupation: Employed ED ROS GENERAL - Review of Systems Review Of Systems: Comprehensive ROS is negative, except as noted in HPI. ED EXAM, RENAL/ - Physical Exam Exam: See Below Exam Limited By: No Limitations General Appearance: Alert, Mild Distress, Obese Eye Exam: Bilateral Eye: EOMI Ears: Normal External Exam Nose: Normal Inspection Throat/Mouth: Normal Inspection Head: Atraumatic, Normocephalic Neck: Normal Inspection Respiratory/Chest: No Respiratory Distress, Normal Breath Sounds Cardiovascular: Regular Rate, Rhythm GI/Abdominal: Normal Bowel Sounds, Soft, Other (suprapubic tenderness, mild epigastric) Back Exam: CVA Tenderness (L), CVA Tenderness (R) Neurological: Alert, Oriented, Normal Cognition Psychiatric: Flat Affect, Other (verbalizes hoplessness thant nothing works or is going to get better for him) Skin Exam: Warm, Dry, Intact, Normal Color Course - Vital Signs Last Recorded V/S: Last Vital Signs Temp 97 F 07/08/20 03:31 Pulse 62 07/08/20 03:31 Resp 18 07/08/20 03:31 BP 145/85 H 07/08/20 03:31 Pulse Ox 99 07/08/20 03:31 - Orders/Labs/Meds Labs: Laboratory Tests 07/08/20 07/08/20 07/08/20 Range/Units 03:45 03:49 03:49 WBC 8.8 (5.0-10.0) 10^3/uL RBC 5.02 (4.6-6.2) 10^6/uL Hgb 15.1 (14.0-18.0) g/dL Hct 42.5 (40.0-54.0) % MCV 84.7 (80-100) fL MCH 30.1 (27.0-34.0) pg MCHC 35.5 H (33.0-35.0) g/dL Plt Count 259 (150-450) 10^3/uL Neut % (Auto) 57.3 (42.2-75.2) % Lymph % (Auto) 32.0 (20.5-50.1) % [place] % (Auto) 7.7 (2-8) % Eos % (Auto) 2.7 (1.0-3.0) % Baso % (Auto) 0.3 (0.0-1.0) % Sodium 140 (136-145) mmol/L Potassium 3.8 (3.5-5.1) mmol/L Chloride 105 (98-107) mmol/L Carbon Dioxide 27 (21-32) mmol/L Anion Gap 11.8 (7-13) mEq/L BUN 10 (7-18) mg/dL Creatinine 0.80 (0.70-1.30) mg/dL Est Cr Clr Drug Dosing 149.54 mL/min Estimated GFR (MDRD) > 60 BUN/Creatinine Ratio 12.5 (No establ ref range) Glucose 102 H (74-99) mg/dL Lactic Acid (0.4-2.0) mmol/L Calcium 8.1 L (8.5-10.1) mg/dL Total Bilirubin 0.5 (0.2-1.0) mg/dL AST 12 L (15-37) U/L ALT 30 (16-63) U/L Alkaline Phosphatase 74 (46-116) U/L Total Protein 6.8 (6.4-8.2) g/dL Albumin 3.3 L (3.4-5.0) g/dL Globulin 3.5 Albumin/Globulin Ratio 0.94 Urine Color Red (YELLOW) Urine Appearance Cloudy (CLEAR) Urine pH 6.0 (5.0-9.0) Ur Specific [place] 1.025 (1.005-1.030) Urine Protein 30 H (NEGATIVE) Urine Glucose (UA) Negative (NEGATIVE) Urine Ketones Negative (NEGATIVE) Urine Occult Blood Large H (NEGATIVE) Urine Nitrite Negative (NEGATIVE) Urine Bilirubin Negative (NEGATIVE) Urine Urobilinogen 0.2 (0.2-1.0) mg/dL Ur Leukocyte Esterase Negative (NEGATIVE) Urine RBC >100 H /HPF Urine WBC 0-5 (0-5/HPF) /HPF Ur Epithelial Cells Few (NOT SEEN) /HPF Amorphous Sediment Rare (NOT SEEN) /HPF Urine Bacteria Rare (0-FEW/HPF) /HPF Urine Mucus Rare (NOT SEEN) /LPF Urine Opiates Screen (NEGATIVE) Ur Oxycodone Screen (NEGATIVE) Urine Methadone Screen (NEGATIVE) Ur Barbiturates Screen (NEGATIVE) U Tricyclic Antidepress (NEGATIVE) Ur Phencyclidine Scrn (NEGATIVE) Ur Amphetamine Screen (NEGATIVE) U Methamphetamines Scrn (NEGATIVE) Urine MDMA Screen (NEGATIVE) U Benzodiazepines Scrn (NEGATIVE) Urine Cocaine Screen (NEGATIVE) U Marijuana (THC) Screen (NEGATIVE) 07/08/20 07/08/20 Range/Units 03:49 03:58 WBC (5.0-10.0) 10^3/uL RBC (4.6-6.2) 10^6/uL Hgb (14.0-18.0) g/dL Hct (40.0-54.0) % MCV (80-100) fL MCH (27.0-34.0) pg MCHC (33.0-35.0) g/dL Plt Count (150-450) 10^3/uL Neut % (Auto) (42.2-75.2) % Lymph % (Auto) (20.5-50.1) % [place] % (Auto) (2-8) % Eos % (Auto) (1.0-3.0) % Baso % (Auto) (0.0-1.0) % Sodium (136-145) mmol/L Potassium (3.5-5.1) mmol/L Chloride (98-107) mmol/L Carbon Dioxide (21-32) mmol/L Anion Gap (7-13) mEq/L BUN (7-18) mg/dL Creatinine (0.70-1.30) mg/dL Est Cr Clr Drug Dosing mL/min Estimated GFR (MDRD) BUN/Creatinine Ratio (No establ ref range) Glucose (74-99) mg/dL Lactic Acid 0.8 (0.4-2.0) mmol/L Calcium (8.5-10.1) mg/dL Total Bilirubin (0.2-1.0) mg/dL AST (15-37) U/L ALT (16-63) U/L Alkaline Phosphatase (46-116) U/L Total Protein (6.4-8.2) g/dL Albumin (3.4-5.0) g/dL Globulin Albumin/Globulin Ratio Urine Color (YELLOW) Urine Appearance (CLEAR) Urine pH (5.0-9.0) Ur Specific [place] (1.005-1.030) Urine Protein (NEGATIVE) Urine Glucose (UA) (NEGATIVE) Urine Ketones (NEGATIVE) Urine Occult Blood (NEGATIVE) Urine Nitrite (NEGATIVE) Urine Bilirubin (NEGATIVE) Urine Urobilinogen (0.2-1.0) mg/dL Ur Leukocyte Esterase (NEGATIVE) Urine RBC /HPF Urine WBC (0-5/HPF) /HPF Ur Epithelial Cells (NOT SEEN) /HPF Amorphous Sediment (NOT SEEN) /HPF Urine Bacteria (0-FEW/HPF) /HPF Urine Mucus (NOT SEEN) /LPF Urine Opiates Screen Negative (NEGATIVE) Ur Oxycodone Screen Positive H (NEGATIVE) Urine Methadone Screen Negative (NEGATIVE) Ur Barbiturates Screen Negative (NEGATIVE) U Tricyclic Antidepress Negative (NEGATIVE) Ur Phencyclidine Scrn Negative (NEGATIVE) Ur Amphetamine Screen Negative (NEGATIVE) U Methamphetamines Scrn Negative (NEGATIVE) Urine MDMA Screen Negative (NEGATIVE) U Benzodiazepines Scrn Negative (NEGATIVE) Urine Cocaine Screen Negative (NEGATIVE) U Marijuana (THC) Screen Positive H (NEGATIVE) Meds: Medications Discontinued Medications Generic Name Dose Route Start Last Admin Trade Name Chavo PRN Reason Stop Dose Admin Hydromorphone HCl 1 mg 07/08/20 03:53 07/08/20 03:59 Dilaudid IM 07/08/20 03:54 1 mg ONETIME ONE Administration Departure - Departure Time of Disposition: 04:30 Disposition: Home, Self-Care 01 Condition: Good Clinical Impression: Flank pain Hematuria Qualifiers: Hematuria type: unspecified type Qualified Code(s): R31.9 - Hematuria, unspecified Chronic pain Qualifiers: Chronic pain type: other chronic pain Qualified Code(s): G89.29 - Other chronic pain - Discharge Information *PRESCRIPTION DRUG MONITORING PROGRAM REVIEWED*: No *COPY OF PRESCRIPTION DRUG MONITORING REPORT IN PATIENT NICO: No Instructions: Flank Pain, Adult, [id number] Forms: ED Department Discharge Additional Instructions: take medication as prescribed follow up with urology appointment do not miss doses of cymbalta increase fluids pyridium 200mg one every 8 hours as needed for bladder spasms Sepsis Event Note (ED) - Evaluation Sepsis Screening Result: No Definite Risk - Focused Exam Vital Signs: Vital Signs Temp Pulse Resp BP Pulse Ox 07/08/20 03:31 97 F 62 18 145/85 H 99
[2020-07-08 04:24] LABS: ANION GAP 11.8 mEq/L (7-13); CHLORIDE,CL 105 mmol/L (98-107); SODIUM,NA 140 mmol/L (136-145)
== END 2020-07-08 04:41 | disposition home or self-care (01) ==
LOC: DL.ED 03:21
DX: R10.31 Right lower quadrant pain (principal); R10.32 Left lower quadrant pain; R10.13 Epigastric pain; R31.9 Hematuria, unspecified; E66.9 Obesity, unspecified; Z68.42 Body mass index [BMI] 45.0-49.9, adult; Z88.8 Allergy status to other drugs, medicaments and biological substances; Z88.1 Allergy status to other antibiotic agents; Z91.030 Bee allergy status; Z88.5 Allergy status to narcotic agent
CPT/HCPCS: 36415; 80053; 80305-QW; 81001; 83605; 85025; 96372; 99283; 99284; J1170

== ENCOUNTER 2020-07-17 10:40 | Emergency (ER) | payer MEDICAID | END 2020-07-17 11:18 | disposition left against medical advice (07) | LOC: DL.ED 10:40 | DX: Z53.21 Procedure and treatment not carried out due to patient leaving prior to being seen by health care provider (principal) ==

== ENCOUNTER 2020-07-18 15:17 | Emergency (ER) | payer MEDICAID ==
[2020-07-18 15:26] VITALS: BP 120/78; PULSE 95
--- NOTE | 2020-07-18 15:40 | EDM.PDOC ---
ED HPI GENERAL MEDICAL PROBLEM - General Chief Complaint: Flank Pain Stated Complaint: KIDNEYS Time Seen by Provider: 07/18/20 15:40 Source of Information: Reports: Patient History Limitations: Reports: No Limitations - History of Present Illness INITIAL COMMENTS - FREE TEXT/NARRATIVE: Patient presents to ER with complaint of flank pain. This is chronic and ongoing. States he has seen urology, and does have a referral for [place]. 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 Patient rates pain 8-9 on . States since Sunday he has been having quite a bit of pain and not being relieved by his regular pain medications. States he does not have an appointment with his primary care provider until July 27, but states he will call Sunday for another appointment. Patient does state that his fiance is here to give him a ride. Onset: Today, Other Left Flank Pain Score (Numeric/FACES): 8 - Related Data Allergies Allergy/AdvReac Type Severity Reaction Status Date / Time amoxicillin [Amoxicillin] Allergy Rash Verified 07/18/20 15:28 bee venom protein (honey bee) Allergy Cannot Verified 07/18/20 15:28 Remember ketorolac tromethamine Allergy Rash Verified 07/18/20 15:28 [From Toradol] metoclopramide [From Reglan] Allergy Agitation Verified 07/18/20 15:28 promethazine HCl Allergy Hallucinati Verified 07/18/20 15:28 [From Phenergan] ons tramadol HCl [From Ultram] Allergy Rash Verified 07/18/20 15:28 Home Meds: Home Meds Losartan [Cozaar] 25 mg PO DAILY 04/02/20 [History] Tamsulosin HCl [Flomax] 0.4 mg PO DAILY 05/30/20 [History] oxyCODONE ER [OxyCONTIN] 1 tab PO BID 06/20/20 [History] oxyCODONE HCl/Acetaminophen [Percocet 10-325 mg Tablet] 0.5 tab PO Q6H PRN 06/20/20 [History] Ondansetron [Zofran] 4 mg PO Q6H PRN 06/21/20 [History] Past Medical History - Past Health History Medical/Surgical History: Denies Medical/Surgical History HEENT History: Reports: None Cardiovascular History: Reports: None Respiratory History: Reports: None Gastrointestinal History: Reports: Gastritis, GERD, Other (See Below) Other Gastrointestinal History: gallbladder pain Genitourinary History: Reports: Renal Calculus, Other (See Below) Other Genitourinary History: Vascular kidney disease. Chronic kidney and bladder pain, blood in urine Musculoskeletal History: Reports: None Neurological History: Reports: None Psychiatric History: Reports: Addiction Endocrine/Metabolic History: Reports: Obesity/BMI 30+ Hematologic History: Reports: None Immunologic History: Reports: None Oncologic (Cancer) History: Reports: None Dermatologic History: Reports: None - Infectious Disease History Infectious Disease History: Reports: Chicken Pox - Past Surgical History Head Surgeries/Procedures: Reports: None HEENT Surgical History: Reports: None Cardiovascular Surgical History: Reports: None GI Surgical History: Reports: Appendectomy, Cholecystectomy Male Surgical History: Reports: Circumcision Other Male Surgeries/Procedures: Has had kidney biopsy Musculoskeletal Surgical History: Reports: Other (See Below) Other Musculoskeletal Surgeries/Procedures:: left arm Social & Family History - Family History Family Medical History: No Pertinent Family History - Tobacco Use Tobacco Use Status *Q: Never Tobacco User Second Hand Smoke Exposure: Yes - Caffeine Use Caffeine Use: Reports: Soda Caffeine Use Comment: 32 oz daily - Recreational Drug Use Recreational Drug Use: No - Living Situation & Occupation Living situation: Reports: Single, Alone Occupation: Employed ED ROS GENERAL - Review of Systems Review Of Systems: Comprehensive ROS is negative, except as noted in HPI. ED EXAM, RENAL/ - Physical Exam Exam: See Below Exam Limited By: No Limitations General Appearance: Alert, WD/WN, Moderate Distress Eye Exam: Bilateral Eye: EOMI, Normal Inspection Ears: Normal External Exam, Hearing Grossly Normal Nose: Normal Inspection Throat/Mouth: Normal Inspection, Normal Voice, No Airway Compromise Head: Atraumatic, Normocephalic Neck: Normal Inspection, Supple, Non-Tender, Full Range of Motion Respiratory/Chest: No Respiratory Distress, Lungs Clear, Normal Breath Sounds, No Accessory Muscle Use, Chest Non-Tender Cardiovascular: Normal Peripheral Pulses, Regular Rate, Rhythm, No Edema, No Gallop, No JVD, No Murmur, No Rub GI/Abdominal: Normal Bowel Sounds, Soft, Tender (flanks) (Male) Exam: Deferred Rectal (Males) Exam: Deferred Back Exam: CVA Tenderness (L), CVA Tenderness (R) Extremities: Normal Inspection, Normal Range of Motion, Non-Tender, Normal Capillary Refill, No Pedal Edema Neurological: Alert, Oriented, CN II-XII Intact, Normal Cognition, Normal Gait, Normal Reflexes, No Motor/Sensory Deficits Psychiatric: Normal Affect, Normal Mood Skin Exam: Warm, Dry, Intact, Normal Color, No Rash Lymphatic: No Adenopathy Course - Vital Signs Last Recorded V/S: Last Vital Signs Temp 97.6 F 07/18/20 15:20 Pulse 95 07/18/20 15:20 Resp 18 07/18/20 15:20 BP 120/78 07/18/20 15:20 Pulse Ox 98 07/18/20 15:20 - Orders/Labs/Meds Labs: Laboratory Tests 07/18/20 07/18/20 07/18/20 Range/Units 16:00 16:05 16:05 WBC 13.5 H (5.0-10.0) 10^3/uL RBC 5.46 (4.6-6.2) 10^6/uL Hgb 16.3 (14.0-18.0) g/dL Hct 46.1 (40.0-54.0) % MCV 84.4 (80-100) fL MCH 29.9 (27.0-34.0) pg MCHC 35.4 H (33.0-35.0) g/dL Plt Count 324 (150-450) 10^3/uL Neut % (Auto) 69.2 (42.2-75.2) % Lymph % (Auto) 22.5 (20.5-50.1) % [place] % (Auto) 5.8 (2-8) % Eos % (Auto) 2.2 (1.0-3.0) % Baso % (Auto) 0.3 (0.0-1.0) % Sodium 139 (136-145) mmol/L Potassium 3.8 (3.5-5.1) mmol/L Chloride 103 (98-107) mmol/L Carbon Dioxide 27 (21-32) mmol/L Anion Gap 12.8 (7-13) mEq/L BUN 16 (7-18) mg/dL Creatinine 0.85 (0.70-1.30) mg/dL Est Cr Clr Drug Dosing 140.75 mL/min Estimated GFR (MDRD) > 60 BUN/Creatinine Ratio 18.8 (No establ ref range) Glucose 98 (74-99) mg/dL Calcium 8.9 (8.5-10.1) mg/dL Total Bilirubin 0.7 (0.2-1.0) mg/dL AST 18 (15-37) U/L ALT 47 (16-63) U/L Alkaline Phosphatase 89 (46-116) U/L Total Protein 7.8 (6.4-8.2) g/dL Albumin 3.9 (3.4-5.0) g/dL Globulin 3.9 Albumin/Globulin Ratio 1.0 Urine Color Dark yellow (YELLOW) Urine Appearance Turbid (CLEAR) Urine pH 7.0 (5.0-9.0) Ur Specific [place] >= 1.030 (1.005-1.030) Urine Protein 30 H (NEGATIVE) Urine Glucose (UA) Negative (NEGATIVE) Urine Ketones Negative (NEGATIVE) Urine Occult Blood Moderate H (NEGATIVE) Urine Nitrite Negative (NEGATIVE) Urine Bilirubin Negative (NEGATIVE) Urine Urobilinogen 0.2 (0.2-1.0) mg/dL Ur Leukocyte Esterase Negative (NEGATIVE) Urine RBC 75-100 H /HPF Urine WBC 0-5 (0-5/HPF) /HPF Ur Epithelial Cells Occasional (NOT SEEN) /HPF Urine Bacteria Rare (0-FEW/HPF) /HPF Urine Mucus Rare (NOT SEEN) /LPF Meds: Medications Discontinued Medications Generic Name Dose Route Start Last Admin Trade Name Karthikeyanq PRN Reason Stop Dose Admin Fentanyl 100 mcg 07/18/20 16:54 07/18/20 17:02 Sublimaze IM 07/18/20 16:55 100 mcg ONETIME ONE Administration Hydromorphone HCl 1 mg 07/18/20 15:53 07/18/20 15:59 Dilaudid IM 07/18/20 15:54 1 mg ONETIME ONE Administration Departure - Departure Time of Disposition: 17:25 Disposition: Home, Self-Care 01 Condition: Fair Clinical Impression: Loin pain hematuria syndrome - Discharge Information *PRESCRIPTION DRUG MONITORING PROGRAM REVIEWED*: No *COPY OF PRESCRIPTION DRUG MONITORING REPORT IN PATIENT NICO: No Instructions: Flank Pain, Adult, [id number] Forms: ED Department Discharge Additional Instructions: Take your pain medications and Flomax as directed Call Dr. Buckley tomorrow Follow up with your referrals Sepsis Event Note (ED) - Evaluation Sepsis Screening Result: No Definite Risk - Focused Exam Vital Signs: Vital Signs Temp Pulse Resp BP Pulse Ox 07/18/20 15:20 97.6 F 95 18 120/78 98
[2020-07-18] MEDS ORDERED: HYDROmorphone 1 MG/ML Syringe IM ONE (15:53)
[2020-07-18 16:29] LABS: ANION GAP 12.8 mEq/L (7-13); CHLORIDE,CL 103 mmol/L (98-107); SODIUM,NA 139 mmol/L (136-145)
[2020-07-18] MEDS ORDERED: fentaNYL 100 MCG/2 ML SDV IM ONE (16:54)
== END 2020-07-18 17:09 | disposition home or self-care (01) ==
LOC: DL.ED 15:17
DX: M54.5 Low back pain (principal); R31.9 Hematuria, unspecified; Z77.22 Contact with and (suspected) exposure to environmental tobacco smoke (acute) (chronic); E66.9 Obesity, unspecified; Z88.1 Allergy status to other antibiotic agents; Z91.030 Bee allergy status; Z88.6 Allergy status to analgesic agent; Z90.49 Acquired absence of other specified parts of digestive tract; Z88.5 Allergy status to narcotic agent; Z79.899 Other long term (current) drug therapy; Z68.42 Body mass index [BMI] 45.0-49.9, adult
CPT/HCPCS: 36415; 80053; 81001; 85025; 96372; 99284; J1170; J3010

== ENCOUNTER 2020-07-22 06:09 | Emergency (ER) | payer MEDICAID ==
[2020-07-22 06:25] VITALS: BP 127/73; PULSE 65
[2020-07-22] MEDS ORDERED: HYDROmorphone 1 MG/ML Syringe IM ONE (06:28)
--- NOTE | 2020-07-22 06:28 | EDM.PDOC ---
ED HPI GENERAL MEDICAL PROBLEM - General Chief Complaint: Flank Pain Stated Complaint: PASSING BLOOD Time Seen by Provider: 07/22/20 06:20 Source of Information: Reports: Patient, RN, RN Notes Reviewed History Limitations: Reports: No Limitations - History of Present Illness INITIAL COMMENTS - FREE TEXT/NARRATIVE: 30 year old male presents to ER with c/o bilateral flank pain. Patient has hx of loin pain hematuria syndrome. Patient saw his primary care provider yesterday who he states increased his flomax and started him on prednisone. He states he did see Urology last week as well. He states he has a referral for [facility], just waiting for a call with an appointment. Patient is in a pain contract with his primary care facility. Onset: Today Back Pain Score (Numeric/FACES): 9 - Related Data Allergies Allergy/AdvReac Type Severity Reaction Status Date / Time amoxicillin [Amoxicillin] Allergy Rash Verified 07/18/20 15:28 bee venom protein (honey bee) Allergy Cannot Verified 07/18/20 15:28 Remember ketorolac tromethamine Allergy Rash Verified 07/18/20 15:28 [From Toradol] metoclopramide [From Reglan] Allergy Agitation Verified 07/18/20 15:28 promethazine HCl Allergy Hallucinati Verified 07/18/20 15:28 [From Phenergan] ons tramadol HCl [From Ultram] Allergy Rash Verified 07/18/20 15:28 Home Meds: Home Meds Losartan [Cozaar] 25 mg PO DAILY 04/02/20 [History] Tamsulosin HCl [Flomax] 0.4 mg PO DAILY 05/30/20 [History] oxyCODONE ER [OxyCONTIN] 1 tab PO BID 06/20/20 [History] oxyCODONE HCl/Acetaminophen [Percocet 10-325 mg Tablet] 0.5 tab PO Q6H PRN 06/20/20 [History] Ondansetron [Zofran] 4 mg PO Q6H PRN 06/21/20 [History] Past Medical History - Past Health History Medical/Surgical History: Denies Medical/Surgical History HEENT History: Reports: None Cardiovascular History: Reports: None Respiratory History: Reports: None Gastrointestinal History: Reports: Gastritis, GERD, Other (See Below) Other Gastrointestinal History: gallbladder pain Genitourinary History: Reports: Renal Calculus, Other (See Below) Other Genitourinary History: Vascular kidney disease. Chronic kidney and bladder pain, blood in urine Musculoskeletal History: Reports: None Neurological History: Reports: None Psychiatric History: Reports: Addiction Endocrine/Metabolic History: Reports: Obesity/BMI 30+ Hematologic History: Reports: None Immunologic History: Reports: None Oncologic (Cancer) History: Reports: None Dermatologic History: Reports: None - Infectious Disease History Infectious Disease History: Reports: Chicken Pox - Past Surgical History Head Surgeries/Procedures: Reports: None HEENT Surgical History: Reports: None Cardiovascular Surgical History: Reports: None GI Surgical History: Reports: Appendectomy, Cholecystectomy Male Surgical History: Reports: Circumcision Other Male Surgeries/Procedures: Has had kidney biopsy Musculoskeletal Surgical History: Reports: Other (See Below) Other Musculoskeletal Surgeries/Procedures:: left arm Social & Family History - Family History Family Medical History: No Pertinent Family History - Caffeine Use Caffeine Use: Reports: Soda Caffeine Use Comment: 32 oz daily - Living Situation & Occupation Living situation: Reports: Single, Alone Occupation: Employed ED ROS GENERAL - Review of Systems Review Of Systems: Comprehensive ROS is negative, except as noted in HPI. ED EXAM, RENAL/ - Physical Exam Exam: See Below Exam Limited By: No Limitations General Appearance: Alert, WD/WN, Moderate Distress Eye Exam: Bilateral Eye: EOMI, Normal Inspection Ears: Normal External Exam, Hearing Grossly Normal Nose: Normal Inspection Throat/Mouth: Normal Inspection, Normal Voice, No Airway Compromise Head: Atraumatic, Normocephalic Neck: Normal Inspection, Supple, Non-Tender, Full Range of Motion Respiratory/Chest: No Respiratory Distress, Lungs Clear, Normal Breath Sounds, No Accessory Muscle Use, Chest Non-Tender Cardiovascular: Normal Peripheral Pulses, Regular Rate, Rhythm, No Edema, No Gallop, No JVD, No Murmur, No Rub GI/Abdominal: Normal Bowel Sounds, Soft, Tender (flank pain bilaterally) (Male) Exam: Deferred Rectal (Males) Exam: Deferred Back Exam: Normal Inspection, Full Range of Motion, CVA Tenderness (L), CVA Tenderness (R) Extremities: Normal Inspection, Normal Range of Motion, Non-Tender, Normal Capillary Refill, No Pedal Edema Neurological: Alert, Oriented, CN II-XII Intact, Normal Cognition, Normal Gait, Normal Reflexes, No Motor/Sensory Deficits Psychiatric: Normal Affect, Normal Mood Skin Exam: Warm, Dry, Intact, Normal Color, No Rash Lymphatic: No Adenopathy Course - Vital Signs Last Recorded V/S: Last Vital Signs Temp 97.3 F 07/22/20 06:20 Pulse 65 07/22/20 06:20 Resp 18 07/22/20 06:20 BP 127/73 07/22/20 06:20 Pulse Ox 98 07/22/20 06:20 - Orders/Labs/Meds Meds: Medications Discontinued Medications Generic Name Dose Route Start Last Admin Trade Name Chavo PRN Reason Stop Dose Admin Hydromorphone HCl 1 mg 07/22/20 06:28 07/22/20 06:34 Dilaudid IM 07/22/20 06:29 1 mg ONETIME ONE Administration Departure - Departure Time of Disposition: 06:40 Disposition: Home, Self-Care 01 Condition: Fair Clinical Impression: Bilateral flank pain, Loin pain hematuria syndrome - Discharge Information *PRESCRIPTION DRUG MONITORING PROGRAM REVIEWED*: No *COPY OF PRESCRIPTION DRUG MONITORING REPORT IN PATIENT NICO: No Instructions: Flank Pain, Adult, [id number] Forms: ED Department Discharge Additional Instructions: Follow up with Dr. Buckley Take your medications as prescribed Sepsis Event Note (ED) - Evaluation Sepsis Screening Result: No Definite Risk - Focused Exam Vital Signs: Vital Signs Temp Pulse Resp BP Pulse Ox 07/22/20 06:20 97.3 F 65 18 127/73 98
== END 2020-07-22 06:39 | disposition home or self-care (01) ==
LOC: DL.ED 06:09
DX: N39.8 Other specified disorders of urinary system (principal); E66.9 Obesity, unspecified; Z68.37 Body mass index [BMI] 37.0-37.9, adult; Z88.1 Allergy status to other antibiotic agents; Z91.030 Bee allergy status; Z88.6 Allergy status to analgesic agent; Z88.8 Allergy status to other drugs, medicaments and biological substances; Z88.5 Allergy status to narcotic agent; Z79.899 Other long term (current) drug therapy
CPT/HCPCS: 96372; 99283; J1170

== ENCOUNTER 2020-07-25 00:15 | Emergency (ER) | payer MEDICAID ==
[2020-07-25 01:54] VITALS: BP 110/54; PULSE 88
--- NOTE | 2020-07-25 01:55 | EDM.PDOC ---
ED HPI GENERAL MEDICAL PROBLEM - General Chief Complaint: Genitourinary Problem Stated Complaint: KIDNEYS PAIN Time Seen by Provider: 07/25/20 01:53 Source of Information: Reports: Patient History Limitations: Reports: No Limitations - History of Present Illness INITIAL COMMENTS - FREE TEXT/NARRATIVE: states present pain different feels more like kidney stone. Left Back Pain Score (Numeric/FACES): 9 - Related Data Allergies Allergy/AdvReac Type Severity Reaction Status Date / Time amoxicillin [Amoxicillin] Allergy Rash Verified 07/18/20 15:28 bee venom protein (honey bee) Allergy Cannot Verified 07/18/20 15:28 Remember ketorolac tromethamine Allergy Rash Verified 07/18/20 15:28 [From Toradol] metoclopramide [From Reglan] Allergy Agitation Verified 07/18/20 15:28 promethazine HCl Allergy Hallucinati Verified 07/18/20 15:28 [From Phenergan] ons tramadol HCl [From Ultram] Allergy Rash Verified 07/18/20 15:28 Home Meds: Home Meds Losartan [Cozaar] 25 mg PO DAILY 04/02/20 [History] Tamsulosin HCl [Flomax] 0.4 mg PO DAILY 05/30/20 [History] oxyCODONE ER [OxyCONTIN] 1 tab PO BID 06/20/20 [History] oxyCODONE HCl/Acetaminophen [Percocet 10-325 mg Tablet] 0.5 tab PO Q6H PRN 06/20/20 [History] Ondansetron [Zofran] 4 mg PO Q6H PRN 06/21/20 [History] Past Medical History - Past Health History Medical/Surgical History: Denies Medical/Surgical History HEENT History: Reports: None Cardiovascular History: Reports: None Respiratory History: Reports: None Gastrointestinal History: Reports: Gastritis, GERD, Other (See Below) Other Gastrointestinal History: gallbladder pain Genitourinary History: Reports: Renal Calculus, Other (See Below) Other Genitourinary History: Vascular kidney disease. Chronic kidney and bladder pain, blood in urine Musculoskeletal History: Reports: None Neurological History: Reports: None Psychiatric History: Reports: Addiction Endocrine/Metabolic History: Reports: Obesity/BMI 30+ Hematologic History: Reports: None Immunologic History: Reports: None Oncologic (Cancer) History: Reports: None Dermatologic History: Reports: None - Infectious Disease History Infectious Disease History: Reports: Chicken Pox - Past Surgical History Head Surgeries/Procedures: Reports: None HEENT Surgical History: Reports: None Cardiovascular Surgical History: Reports: None GI Surgical History: Reports: Appendectomy, Cholecystectomy Male Surgical History: Reports: Circumcision Other Male Surgeries/Procedures: Has had kidney biopsy Musculoskeletal Surgical History: Reports: Other (See Below) Other Musculoskeletal Surgeries/Procedures:: left arm Social & Family History - Family History Family Medical History: No Pertinent Family History - Caffeine Use Caffeine Use: Reports: Coffee Caffeine Use Comment: 32 oz daily - Living Situation & Occupation Living situation: Reports: Single, Alone Occupation: Employed ED ROS GENERAL - Review of Systems Review Of Systems: Comprehensive ROS is negative, except as noted in HPI. ED EXAM, RENAL/ - Physical Exam Exam: See Below Exam Limited By: No Limitations General Appearance: Alert, WD/WN, Mild Distress, Other (discomfort). No: Active Emesis Ears: Hearing Grossly Normal Throat/Mouth: Normal Voice, No Airway Compromise Head: Atraumatic Neck: Non-Tender, Full Range of Motion Respiratory/Chest: No Respiratory Distress Cardiovascular: Regular Rate, Rhythm GI/Abdominal: Soft, Non-Tender (Male) Exam: Deferred Rectal (Males) Exam: Deferred Back Exam: CVA Tenderness (R) Neurological: Alert, Oriented, Normal Cognition, Normal Gait, No Motor/Sensory Deficits Psychiatric: Flat Affect Skin Exam: Warm, Dry, Normal Color Lymphatic: No Adenopathy Course - Vital Signs Last Recorded V/S: Last Vital Signs Temp 36.6 C 07/25/20 01:50 Pulse 88 07/25/20 01:50 Resp 18 07/25/20 01:50 BP 110/54 L 07/25/20 01:50 Pulse Ox 98 07/25/20 01:50 - Orders/Labs/Meds Labs: Laboratory Tests 07/25/20 07/25/20 Range/Units 02:05 02:05 WBC 10.1 H (5.0-10.0) 10^3/uL RBC 5.04 (4.6-6.2) 10^6/uL Hgb 15.2 (14.0-18.0) g/dL Hct 42.9 (40.0-54.0) % MCV 85.1 (80-100) fL MCH 30.2 (27.0-34.0) pg MCHC 35.4 H (33.0-35.0) g/dL Plt Count 295 (150-450) 10^3/uL Neut % (Auto) 59.9 (42.2-75.2) % Lymph % (Auto) 29.6 (20.5-50.1) % [place] % (Auto) 7.0 (2-8) % Eos % (Auto) 3.2 H (1.0-3.0) % Baso % (Auto) 0.3 (0.0-1.0) % Sodium 136 (136-145) mmol/L Potassium 4.1 (3.5-5.1) mmol/L Chloride 103 (98-107) mmol/L Carbon Dioxide 24 (21-32) mmol/L Anion Gap 13.1 H (7-13) mEq/L BUN 14 (7-18) mg/dL Creatinine 0.89 (0.70-1.30) mg/dL Est Cr Clr Drug Dosing 134.42 mL/min Estimated GFR (MDRD) > 60 BUN/Creatinine Ratio 15.7 (No establ ref range) Glucose 111 H (74-99) mg/dL Calcium 8.3 L (8.5-10.1) mg/dL Total Bilirubin 0.4 (0.2-1.0) mg/dL AST 11 L (15-37) U/L ALT 22 (16-63) U/L Alkaline Phosphatase 84 (46-116) U/L Total Protein 7.2 (6.4-8.2) g/dL Albumin 3.6 (3.4-5.0) g/dL Globulin 3.6 Albumin/Globulin Ratio 1.0 Departure - Departure Time of Disposition: 02:00 Disposition: Eloped 07 Condition: Fair Clinical Impression: History of kidney stones - Discharge Information
[2020-07-25 02:28] LABS: ANION GAP 13.1 mEq/L (7-13); CHLORIDE,CL 103 mmol/L (98-107); SODIUM,NA 136 mmol/L (136-145)
== END 2020-07-25 02:00 | disposition left against medical advice (07) ==
LOC: DL.ED 00:15
DX: M54.9 Dorsalgia, unspecified (principal); E66.9 Obesity, unspecified; Z68.42 Body mass index [BMI] 45.0-49.9, adult; Z87.441 Personal history of nephrotic syndrome; Z88.1 Allergy status to other antibiotic agents; Z91.030 Bee allergy status; Z88.6 Allergy status to analgesic agent; Z88.5 Allergy status to narcotic agent; Z88.8 Allergy status to other drugs, medicaments and biological substances; Z79.899 Other long term (current) drug therapy
CPT/HCPCS: 36415; 80053; 85025; 99284

== ENCOUNTER 2020-08-05 08:16 | Emergency (ER) | payer MEDICAID ==
[2020-08-05 08:35] VITALS: BP 133/70; PULSE 69
--- NOTE | 2020-08-05 08:46 | EDM.PDOC ---
ED HPI GENERAL MEDICAL PROBLEM - General Chief Complaint: Flank Pain Stated Complaint: KIDNEY STONES/PASSING STONES Time Seen by Provider: 08/05/20 08:30 Source of Information: Reports: Patient, Old Records, RN, RN Notes Reviewed History Limitations: Reports: No Limitations - History of Present Illness INITIAL COMMENTS - FREE TEXT/NARRATIVE: Patient presents to the ED via personal vehicle with complaints of bilateral flank pain, worse on the left than the right. 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 The patient states he has an appointment scheduled at the [facility] on August 17 for further evaluation into this problem. He states he was seen by his primary care provider early last week and was started on a Prednisone taper which helped his symptoms over the week. Since stopping the taper he feels like his pain has significantly worsened. He reports passing two kidney stones in the past 24 hours. He states he last took his Oxycodone 10mg this morning at 0400 for this problem. He denies recent illness, fever, vomiting, or diarrhea. He does attest to shaking chills, nausea, dysuria, hematuria, and suprapubic tenderness. He attests to chewing a tin per day; he denies alcohol or recreation drug use. Bilateral Flank Pain Score (Numeric/FACES): 7 - Related Data Allergies Allergy/AdvReac Type Severity Reaction Status Date / Time amoxicillin [Amoxicillin] Allergy Rash Verified 08/05/20 08:35 bee venom protein (honey bee) Allergy Cannot Verified 08/05/20 08:35 Remember ketorolac tromethamine Allergy Rash Verified 08/05/20 08:35 [From Toradol] metoclopramide [From Reglan] Allergy Agitation Verified 08/05/20 08:35 promethazine HCl Allergy Hallucinati Verified 08/05/20 08:35 [From Phenergan] ons tramadol HCl [From Ultram] Allergy Rash Verified 08/05/20 08:35 Home Meds: Home Meds Losartan [Cozaar] 25 mg PO DAILY 04/02/20 [History] Tamsulosin HCl [Flomax] 0.4 mg PO DAILY 05/30/20 [History] oxyCODONE ER [OxyCONTIN] 1 tab PO BID 06/20/20 [History] oxyCODONE HCl/Acetaminophen [Percocet 10-325 mg Tablet] 0.5 tab PO Q6H PRN 06/20/20 [History] Ondansetron [Zofran] 4 mg PO Q6H PRN 06/21/20 [History] Past Medical History - Past Health History Medical/Surgical History: Denies Medical/Surgical History HEENT History: Reports: None Cardiovascular History: Reports: None Respiratory History: Reports: None Gastrointestinal History: Reports: Gastritis, GERD, Other (See Below) Other Gastrointestinal History: gallbladder pain Genitourinary History: Reports: Renal Calculus, Other (See Below) Other Genitourinary History: Vascular kidney disease. Chronic kidney and bladder pain, blood in urine Musculoskeletal History: Reports: None Neurological History: Reports: None Psychiatric History: Reports: Addiction Endocrine/Metabolic History: Reports: Obesity/BMI 30+ Hematologic History: Reports: None Immunologic History: Reports: None Oncologic (Cancer) History: Reports: None Dermatologic History: Reports: None - Infectious Disease History Infectious Disease History: Reports: Chicken Pox - Past Surgical History Head Surgeries/Procedures: Reports: None HEENT Surgical History: Reports: None Cardiovascular Surgical History: Reports: None GI Surgical History: Reports: Appendectomy, Cholecystectomy Male Surgical History: Reports: Circumcision Other Male Surgeries/Procedures: Has had kidney biopsy Musculoskeletal Surgical History: Reports: Other (See Below) Other Musculoskeletal Surgeries/Procedures:: left arm Social & Family History - Family History Family Medical History: No Pertinent Family History - Tobacco Use Tobacco Use Status *Q: Current Every Day Tobacco User Years of Tobacco use: 10 Packs/Tins Daily: 1 - Caffeine Use Caffeine Use: Reports: None Caffeine Use Comment: 32 oz daily - Recreational Drug Use Recreational Drug Use: No - Living Situation & Occupation Living situation: Reports: Single, Alone Occupation: Employed ED ROS GENERAL - Review of Systems Review Of Systems: Comprehensive ROS is negative, except as noted in HPI. ED EXAM, RENAL/ - Physical Exam Exam: See Below Exam Limited By: No Limitations General Appearance: Alert, Mild Distress Eye Exam: Bilateral Eye: EOMI, Normal Inspection, PERRL (4mm) Throat/Mouth: Normal Inspection, Normal Voice, No Airway Compromise Head: Atraumatic, Normocephalic Neck: Normal Inspection, Supple, Non-Tender, Full Range of Motion. No: Lymphadenopathy (L), Lymphadenopathy (R) Respiratory/Chest: No Respiratory Distress, Lungs Clear, Normal Breath Sounds, No Accessory Muscle Use, Chest Non-Tender Cardiovascular: Normal Peripheral Pulses, Regular Rate, Rhythm, No Edema, No Gallop, No JVD, No Murmur, No Rub GI/Abdominal: Normal Bowel Sounds, Soft, No Distention, No Mass, Pelvis Stable, Tender (To RLQ and suprapubic area) (Male) Exam: Deferred Rectal (Males) Exam: Deferred Back Exam: CVA Tenderness (L). No: CVA Tenderness (R) Extremities: Normal Inspection, Normal Range of Motion, Non-Tender, No Pedal Edema, Normal Capillary Refill Neurological: Alert, Oriented, CN II-XII Intact, Normal Cognition, Normal Gait, No Motor/Sensory Deficits Skin Exam: Normal Color, No Rash, Diaphoretic. No: Ecchymosis, Erythema, Mottled, Pallor Course - Vital Signs Last Recorded V/S: Last Vital Signs Temp 98.8 F 08/05/20 08:31 Pulse 69 08/05/20 08:31 Resp 18 08/05/20 08:31 BP 133/70 08/05/20 08:31 Pulse Ox 100 08/05/20 08:31 - Orders/Labs/Meds Orders: Active Orders 24 hr Category Date Time Status UA RFX MARGARITA AND CULT IF INDIC [URIN] Stat Lab 08/05/20 08:42 Ordered Labs: Laboratory Tests 08/05/20 08/05/20 Range/Units 08:49 08:49 WBC 10.1 H (5.0-10.0) 10^3/uL RBC 5.21 (4.6-6.2) 10^6/uL Hgb 15.5 (14.0-18.0) g/dL Hct 44.2 (40.0-54.0) % MCV 84.8 (80-100) fL MCH 29.8 (27.0-34.0) pg MCHC 35.1 H (33.0-35.0) g/dL Plt Count 280 (150-450) 10^3/uL Neut % (Auto) 65.3 (42.2-75.2) % Lymph % (Auto) 25.2 (20.5-50.1) % [place] % (Auto) 6.4 (2-8) % Eos % (Auto) 2.9 (1.0-3.0) % Baso % (Auto) 0.2 (0.0-1.0) % Sodium 137 (136-145) mmol/L Potassium 4.1 (3.5-5.1) mmol/L Chloride 104 (98-107) mmol/L Carbon Dioxide 25 (21-32) mmol/L Anion Gap 12.1 (7-13) mEq/L BUN 10 (7-18) mg/dL Creatinine 0.79 (0.70-1.30) mg/dL Est Cr Clr Drug Dosing 151.43 mL/min Estimated GFR (MDRD) > 60 BUN/Creatinine Ratio 12.7 (No establ ref range) Glucose 107 H (74-99) mg/dL Calcium 8.6 (8.5-10.1) mg/dL Total Bilirubin 0.6 (0.2-1.0) mg/dL AST 16 (15-37) U/L ALT 39 (16-63) U/L Alkaline Phosphatase 77 (46-116) U/L Total Protein 7.3 (6.4-8.2) g/dL Albumin 3.9 (3.4-5.0) g/dL Globulin 3.4 Albumin/Globulin Ratio 1.1 Meds: Medications Discontinued Medications Generic Name Dose Route Start Last Admin Trade Name Freq PRN Reason Stop Dose Admin Oxycodone/Acetaminophen 2 tab 08/05/20 09:07 08/05/20 09:31 Percocet 325-5 Mg PO 08/05/20 09:08 2 tab ONETIME ONE Administration Tamsulosin HCl 0.4 mg 08/05/20 09:07 08/05/20 09:32 Flomax PO 08/05/20 09:08 0.4 mg ONETIME ONE Administration - Re-Assessments/Exams Free Text/Narrative Re-Assessment/Exam: 08/05/20 CT abdomen and pelvis negative for acute processes. Blood work is unremarkable for acute processes. Patient given home doses of Flomax 0.4mg and Percocet 5- 325mg x2; patient counseled to not take AM dose of Flomax when he gets home as he was given this dose here. Patient states he cannot urinate at this time. Patient encouraged to follow up with his primary care provider for ongoing renal management. Departure - Departure Time of Disposition: 09:43 Disposition: Home, Self-Care 01 Condition: Good Clinical Impression: Loin pain hematuria syndrome, Bilateral flank pain - Discharge Information *PRESCRIPTION DRUG MONITORING PROGRAM REVIEWED*: Not Applicable *COPY OF PRESCRIPTION DRUG MONITORING REPORT IN PATIENT NICO: Not Applicable Forms: ED Department Discharge Additional Instructions: 1.) Drink plenty of fluids to stay hydrated. 2.) Follow up with Dr. Faria as needed for ongoing kidney symptoms; take medications as previously prescribed. Sepsis Event Note (ED) - Evaluation Sepsis Screening Result: No Definite Risk - Focused Exam Vital Signs: Vital Signs Temp Pulse Resp BP Pulse Ox 08/05/20 08:31 98.8 F 69 18 133/70 100 - My Orders Last 24 Hours: My Active Orders 08/05/20 08:42 UA RFX MARGARITA AND CULT IF INDIC [URIN] Stat - Assessment/Plan Last 24 Hours: My Active Orders 08/05/20 08:42 UA RFX MARGARITA AND CULT IF INDIC [URIN] Stat
[2020-08-05] MEDS ORDERED: Tamsulosin 0.4 MG Cap.ER PO ONE (09:07)
[2020-08-05] MEDS ORDERED: Acetaminophen/oxyCODONE 325-5 MG Tab PO ONE (09:07)
[2020-08-05 09:13] LABS: ANION GAP 12.1 mEq/L (7-13); CHLORIDE,CL 104 mmol/L (98-107); SODIUM,NA 137 mmol/L (136-145)
--- NOTE | 2020-08-05 09:38 | CT ---
EXAMINATION: Abdomen Pelvis wo Cont SEX: Male AGE: 30 years CLINICAL HISTORY: 30-year-old 350 pound male with history of "kidney stones"; now LEFT FLANK PAIN. Nausea and vomiting. Cholecystectomy. Appendectomy. 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 Scan technique: Volume acquisition of data from the abdomen and pelvis obtained on emergency basis without IV or oral contrast as renal stone study) while patient was lying supine on the Siemens multislice scanner [place], [place]. All data archived in the PACS system for storage, reformatting axial/sagittal/coronal planes and study. Interpretation: No acute abnormality. 1. Symmetric normal reniform size, axis and configuration. No solid or cystic renal cortical mass (unenhanced exam). No sign of nephrolithiasis or obstructive uropathy i.e. no pyelocaliectasis or ureterectasis. Symmetrically distended unenhanced midline urinary bladder. No intraluminal calcifications. 2. Cholecystectomy. Unenhanced liver, stomach, spleen, pancreas and adrenal glands unremarkable. 3. Normal small bowel pattern and terminal ileum. Appendectomy. Colon unremarkable. 4. No inflammatory "dirty" peritoneal fat. No abdominal or pelvic mass lesion, mesenteric or retroperitoneal lymphadenopathy, ventral wall herniation, signs of mechanical bowel obstruction, ascites or free air. 5. Normal caliber aortoiliac vessels. Normal cardiac silhouette. Lung bases clear. No effusions. 7. Lower thoracic and lumbar spine unremarkable. CONCLUSION: Evidence previous surgeries. No sign of urolithiasis or obstructive uropathy. No sign of bowel obstruction, peritoneal infection or intra-abdominal malignancy.
== END 2020-08-05 09:57 | disposition home or self-care (01) ==
LOC: DL.ED 08:16
DX: N39.8 Other specified disorders of urinary system (principal); E66.9 Obesity, unspecified; F17.210 Nicotine dependence, cigarettes, uncomplicated; Z68.42 Body mass index [BMI] 45.0-49.9, adult; Z88.1 Allergy status to other antibiotic agents; Z91.030 Bee allergy status; Z88.6 Allergy status to analgesic agent; Z88.8 Allergy status to other drugs, medicaments and biological substances; Z88.5 Allergy status to narcotic agent; Z79.899 Other long term (current) drug therapy
CPT/HCPCS: 36415; 74176; 80053; 85025; 99284; A9270

== ENCOUNTER 2020-08-23 08:18 | Emergency (ER) | payer MEDICAID ==
[2020-08-23 08:28] VITALS: BP 129/77; PULSE 66
[2020-08-23] MEDS: Ondansetron 4 MG Tab.DIS PO ONE (08:52)
[2020-08-23] MEDS: Acetaminophen/oxyCODONE 325-5 MG Tab PO ONE (08:54)
--- NOTE | 2020-08-23 08:57 | EDM.PDOC ---
ED HPI GENERAL MEDICAL PROBLEM - General Chief Complaint: Flank Pain Stated Complaint: KIDNEYS Time Seen by Provider: 08/23/20 08:35 Source of Information: Reports: Patient, Old Records, RN, RN Notes Reviewed History Limitations: Reports: No Limitations - History of Present Illness INITIAL COMMENTS - FREE TEXT/NARRATIVE: Patient presents to the ED via personal vehicle with complaints of bilateral flank pain and hematuria. The patient states he has been feeling quite well for the past several weeks and the hematuria and flank pain had subsided; he has been taking his Oxycontin ER BID and Percocet PRN which have provided relief of symptoms. However, he woke up this morning at approximately 0130 from flank pain on the left for which he took his last dose of Percocet. He states both of these medications are due to be filled tomorrow, 08/23/2020. The patient states he did go to his Urology appointment at the [facility] and was seen by Dr. Mohamud. He reports they are no longer performing autografting/reinnervation procedures for loin pain hematuria syndrome as the success rate for this procedure was too low. The patient denies fever, shaking chills, recent illness , palpitations, dyspepsia, vomiting, diarrhea, melena, or hematochezia. He does attest to nausea when the pain gets too bad. The patient states he is going to attempt to speak with his primary care provider about a trial of medical marijuana for this problem. Bilateral Flank Pain Score (Numeric/FACES): 8 - Related Data Allergies Allergy/AdvReac Type Severity Reaction Status Date / Time amoxicillin [Amoxicillin] Allergy Rash Verified 08/23/20 08:28 bee venom protein (honey bee) Allergy Cannot Verified 08/23/20 08:28 Remember ketorolac tromethamine Allergy Rash Verified 08/23/20 08:28 [From Toradol] metoclopramide [From Reglan] Allergy Agitation Verified 08/23/20 08:28 promethazine HCl Allergy Hallucinati Verified 08/23/20 08:28 [From Phenergan] ons tramadol HCl [From Ultram] Allergy Rash Verified 08/23/20 08:28 Home Meds: Home Meds Tamsulosin HCl [Flomax] 0.4 mg PO DAILY 05/30/20 [History] oxyCODONE ER [OxyCONTIN] 1 tab PO BID 06/20/20 [History] oxyCODONE HCl/Acetaminophen [Percocet 10-325 mg Tablet] 0.5 tab PO Q6H PRN 06/20/20 [History] Ondansetron [Zofran] 4 mg PO Q6H PRN 06/21/20 [History] Past Medical History - Past Health History Medical/Surgical History: Denies Medical/Surgical History HEENT History: Reports: None Cardiovascular History: Reports: None Respiratory History: Reports: None Gastrointestinal History: Reports: Gastritis, GERD, Other (See Below) Other Gastrointestinal History: gallbladder pain Genitourinary History: Reports: Renal Calculus, Other (See Below) Other Genitourinary History: Vascular kidney disease. Chronic kidney and bladder pain, blood in urine Musculoskeletal History: Reports: None Neurological History: Reports: None Psychiatric History: Reports: Addiction Endocrine/Metabolic History: Reports: Obesity/BMI 30+ Hematologic History: Reports: None Immunologic History: Reports: None Oncologic (Cancer) History: Reports: None Dermatologic History: Reports: None - Infectious Disease History Infectious Disease History: Reports: Chicken Pox - Past Surgical History Head Surgeries/Procedures: Reports: None HEENT Surgical History: Reports: None Cardiovascular Surgical History: Reports: None GI Surgical History: Reports: Appendectomy, Cholecystectomy Male Surgical History: Reports: Circumcision Other Male Surgeries/Procedures: Has had kidney biopsy Musculoskeletal Surgical History: Reports: Other (See Below) Other Musculoskeletal Surgeries/Procedures:: left arm Social & Family History - Family History Family Medical History: No Pertinent Family History - Tobacco Use Tobacco Use Status *Q: Never Tobacco User Second Hand Smoke Exposure: No - Caffeine Use Caffeine Use: Reports: None Caffeine Use Comment: 32 oz daily - Recreational Drug Use Recreational Drug Use: No - Living Situation & Occupation Living situation: Reports: Single, Alone Occupation: Employed ED ROS GENERAL - Review of Systems Review Of Systems: Comprehensive ROS is negative, except as noted in HPI. ED EXAM, RENAL/ - Physical Exam Exam: See Below Exam Limited By: No Limitations General Appearance: Alert, WD/WN, No Apparent Distress Respiratory/Chest: No Respiratory Distress, Lungs Clear, Normal Breath Sounds, No Accessory Muscle Use, Chest Non-Tender Cardiovascular: Normal Peripheral Pulses, Regular Rate, Rhythm, No Edema, No Gallop, No JVD, No Murmur, No Rub GI/Abdominal: Normal Bowel Sounds, Soft, Non-Tender, No Distention, No Mass, Pelvis Stable (Male) Exam: Deferred Rectal (Males) Exam: Deferred Back Exam: Full Range of Motion, CVA Tenderness (L), CVA Tenderness (R). No: Mu scle Spasm, Paraspinal Tenderness, Vertebral Tenderness Neurological: Alert, Oriented, CN II-XII Intact, Normal Cognition, Normal Gait, No Motor/Sensory Deficits Psychiatric: Normal Affect, Normal Mood Skin Exam: Warm, Dry, Intact, Normal Color, No Rash. No: Ecchymosis, Erythema, Mottled, Pallor, Petechiae Course - Vital Signs Last Recorded V/S: Last Vital Signs Temp 96.9 F 08/23/20 08:24 Pulse 66 08/23/20 08:24 Resp 18 08/23/20 08:24 BP 129/77 08/23/20 08:24 Pulse Ox 97 08/23/20 08:24 - Orders/Labs/Meds Meds: Medications Discontinued Medications Generic Name Dose Route Start Last Admin Trade Name Chavo PRN Reason Stop Dose Admin Ondansetron HCl 4 mg 08/23/20 08:47 08/23/20 08:52 Zofran Odt PO 08/23/20 08:48 4 mg ONETIME ONE Administration Oxycodone/Acetaminophen 2 tab 08/23/20 08:47 08/23/20 08:54 Percocet 325-5 Mg PO 08/23/20 08:48 2 tab ONETIME ONE Administration - Re-Assessments/Exams Free Text/Narrative Re-Assessment/Exam: 08/23/20 Patient states he is going to attempt to contact his primary care provider, Dr. Faria, regarding an early refill of his prescription medications as these do help his pain. He states he is also going to discuss a trial of medical marijuana for this ongoing problem. Patient given Zofran ODT 4mg and Oxycodone 10/650mg for his acute pain and nausea. Patient verbalized understanding and agreement with the plan of care. Departure - Departure Time of Disposition: 08:57 Disposition: Home, Self-Care 01 Condition: Good Clinical Impression: Bilateral flank pain, Loin pain hematuria syndrome - Discharge Information *PRESCRIPTION DRUG MONITORING PROGRAM REVIEWED*: Not Applicable *COPY OF PRESCRIPTION DRUG MONITORING REPORT IN PATIENT NICO: Not Applicable Instructions: Pain Medicine Instructions, [id number] Forms: ED Department Discharge Additional Instructions: 1.) Follow up with your primary care provider regarding today's visit and filling of prescriptions. 2.) Drink plenty of fluids to stay hydrated. Sepsis Event Note (ED) - Evaluation Sepsis Screening Result: No Definite Risk - Focused Exam Vital Signs: Vital Signs Temp Pulse Resp BP Pulse Ox 08/23/20 08:24 96.9 F 66 18 129/77 97
== END 2020-08-23 09:03 | disposition home or self-care (01) ==
LOC: DL.ED 08:18
DX: R10.9 Unspecified abdominal pain (principal); M54.5 Low back pain; R31.9 Hematuria, unspecified; E66.9 Obesity, unspecified; Z79.899 Other long term (current) drug therapy; Z88.0 Allergy status to penicillin; Z91.030 Bee allergy status; Z88.6 Allergy status to analgesic agent; Z88.8 Allergy status to other drugs, medicaments and biological substances; Z68.42 Body mass index [BMI] 45.0-49.9, adult
CPT/HCPCS: 99283; A9270-GY

== ENCOUNTER 2020-08-28 09:17 | Emergency (ER) | payer MEDICAID ==
[2020-08-28 09:34] VITALS: BP 131/75; PULSE 57
[2020-08-28] MEDS ORDERED: HYDROmorphone 1 MG/ML Syringe IM ONE (10:37)
--- NOTE | 2020-08-28 10:37 | EDM.PDOC ---
ED HPI GENERAL MEDICAL PROBLEM - General Chief Complaint: Genitourinary Problem Stated Complaint: KIDNEY PAINS/STONES Time Seen by Provider: 08/28/20 10:33 Source of Information: Reports: Patient, Old Records, RN, RN Notes Reviewed History Limitations: Reports: No Limitations - History of Present Illness INITIAL COMMENTS - FREE TEXT/NARRATIVE: Pt presents to ER with c/o severe B/L flank pain, L>R and gross hematuria. 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 He is on a pain contra ct with Dr. Faria. Denies fever or chills. Duration: Chronic, Recurring Location: Reports: Other (Flank) Quality: Reports: Same as Previous Episode Severity: Severe Improves with: Reports: None Worsens with: Reports: None Associated Symptoms: Reports: No Other Symptoms bilat flank Pain Score (Numeric/FACES): 9 - Related Data Allergies Allergy/AdvReac Type Severity Reaction Status Date / Time amoxicillin [Amoxicillin] Allergy Rash Verified 08/28/20 09:39 bee venom protein (honey bee) Allergy Cannot Verified 08/28/20 09:39 Remember ketorolac tromethamine Allergy Rash Verified 08/28/20 09:39 [From Toradol] metoclopramide [From Reglan] Allergy Agitation Verified 08/28/20 09:39 promethazine HCl Allergy Hallucinati Verified 08/28/20 09:39 [From Phenergan] ons tramadol HCl [From Ultram] Allergy Rash Verified 08/28/20 09:39 Home Meds: Home Meds Tamsulosin HCl [Flomax] 0.4 mg PO DAILY 05/30/20 [History] oxyCODONE ER [OxyCONTIN] 1 tab PO BID 06/20/20 [History] oxyCODONE HCl/Acetaminophen [Percocet 10-325 mg Tablet] 0.5 tab PO Q6H PRN 06/20/20 [History] Ondansetron [Zofran] 4 mg PO Q6H PRN 06/21/20 [History] Past Medical History - Past Health History Medical/Surgical History: Denies Medical/Surgical History HEENT History: Reports: None Cardiovascular History: Reports: None Respiratory History: Reports: None Gastrointestinal History: Reports: Gastritis, GERD, Other (See Below) Other Gastrointestinal History: gallbladder pain Genitourinary History: Reports: Renal Calculus, Other (See Below) Other Genitourinary History: Vascular kidney disease. Chronic kidney and bladder pain, blood in urine Musculoskeletal History: Reports: None Neurological History: Reports: None Psychiatric History: Reports: Addiction Endocrine/Metabolic History: Reports: Obesity/BMI 30+ Hematologic History: Reports: None Immunologic History: Reports: None Oncologic (Cancer) History: Reports: None Dermatologic History: Reports: None - Infectious Disease History Infectious Disease History: Reports: Chicken Pox - Past Surgical History Head Surgeries/Procedures: Reports: None HEENT Surgical History: Reports: None Cardiovascular Surgical History: Reports: None GI Surgical History: Reports: Appendectomy, Cholecystectomy Male Surgical History: Reports: Circumcision Other Male Surgeries/Procedures: Has had kidney biopsy Musculoskeletal Surgical History: Reports: Other (See Below) Other Musculoskeletal Surgeries/Procedures:: left arm Social & Family History - Family History Family Medical History: No Pertinent Family History - Tobacco Use Tobacco Use Status *Q: Never Tobacco User Second Hand Smoke Exposure: No - Caffeine Use Caffeine Use: Reports: Coffee Caffeine Use Comment: 32 oz daily - Recreational Drug Use Recreational Drug Use: No - Living Situation & Occupation Living situation: Reports: Single, Alone Occupation: Employed ED ROS GENERAL - Review of Systems Review Of Systems: Comprehensive ROS is negative, except as noted in HPI. ED EXAM, RENAL/ - Physical Exam Exam: See Below Exam Limited By: No Limitations General Appearance: Alert, No Apparent Distress, Obese Throat/Mouth: Normal Inspection Head: Atraumatic, Normocephalic Respiratory/Chest: No Respiratory Distress Cardiovascular: Regular Rate, Rhythm GI/Abdominal: Normal Bowel Sounds, Soft, Non-Tender, No Organomegaly, No Distention, No Abnormal Bruit, No Mass, Other (Obese abdomen). No: Guarding, Rigid, Rebound (Male) Exam: Deferred Rectal (Males) Exam: Deferred Back Exam: Full Range of Motion, CVA Tenderness (L), CVA Tenderness (R). No: Vertebral Tenderness Extremities: Normal Inspection Neurological: Alert, Oriented, No Motor/Sensory Deficits Psychiatric: Normal Affect, Normal Mood Skin Exam: Warm, Dry, Intact, Normal Color, No Rash Course - Vital Signs Last Recorded V/S: Last Vital Signs Temp 96.9 F 08/28/20 09:25 Pulse 57 L 01/02/21 09:25 Resp 20 08/28/20 09:25 BP 131/75 08/28/20 09:25 Pulse Ox 100 08/28/20 09:25 - Orders/Labs/Meds Meds: Medications Discontinued Medications Generic Name Dose Route Start Last Admin Trade Name Chavo PRN Reason Stop Dose Admin Hydromorphone HCl 1 mg 08/28/20 10:37 Dilaudid IM 08/28/20 10:38 ONETIME ONE Prednisone 60 mg 08/28/20 10:42 Prednisone PO 08/28/20 10:43 ONETIME ONE Departure - Departure Time of Disposition: 10:44 Disposition: Home, Self-Care 01 Condition: Good Clinical Impression: Loin pain hematuria syndrome - Discharge Information *PRESCRIPTION DRUG MONITORING PROGRAM REVIEWED*: No *COPY OF PRESCRIPTION DRUG MONITORING REPORT IN PATIENT NICO: No Instructions: Hematuria, Adult Forms: ED Department Discharge Additional Instructions: Rx: Prednisone 20mg Drink plenty of water. Follow up in clinic as planned. Sepsis Event Note (ED) - Evaluation Sepsis Screening Result: No Definite Risk - Focused Exam Vital Signs: Vital Signs Temp Pulse Resp BP Pulse Ox 08/28/20 09:25 96.9 F 57 L 20 131/75 100
[2020-08-28] MEDS ORDERED: predniSONE 20 MG Tab PO ONE (10:42)
== END 2020-08-28 10:58 | disposition home or self-care (01) ==
LOC: DL.ED 09:17
DX: M54.5 Low back pain (principal); R31.9 Hematuria, unspecified; E66.9 Obesity, unspecified; Z68.42 Body mass index [BMI] 45.0-49.9, adult; Z88.0 Allergy status to penicillin; Z91.030 Bee allergy status; Z88.5 Allergy status to narcotic agent; Z88.8 Allergy status to other drugs, medicaments and biological substances
CPT/HCPCS: 96372; 99283; J1170; J7512

== ENCOUNTER 2020-09-06 03:48 | Emergency (ER) | payer MEDICAID ==
--- NOTE | 2020-09-06 03:51 | EDM.PDOC ---
ED HPI GENERAL MEDICAL PROBLEM - General Chief Complaint: Flank Pain Stated Complaint: AMBULANCE Time Seen by Provider: 09/06/20 03:58 Source of Information: Reports: Patient, EMS History Limitations: Reports: No Limitations - History of Present Illness INITIAL COMMENTS - FREE TEXT/NARRATIVE: This 30 yo male patient reports to the ED due to bilateral flank pain. The patient has been seen several times in the ED for similar symptoms. The patient has also been seen at the [facility] for Loin Hematuria Syndrome and was advised there is no treatment except for pain management. The patient is under a pain control contract with Dr. Faria. Onset: Today Duration: Constant Location: Reports: Back (bilateral flank pain) Quality: Reports: Ache, Sharp Severity: Severe Improves with: Reports: None Worsens with: Reports: None - Related Data Allergies Allergy/AdvReac Type Severity Reaction Status Date / Time amoxicillin [Amoxicillin] Allergy Rash Verified 08/28/20 09:39 bee venom protein (honey bee) Allergy Cannot Verified 08/28/20 09:39 Remember ketorolac tromethamine Allergy Rash Verified 08/28/20 09:39 [From Toradol] metoclopramide [From Reglan] Allergy Agitation Verified 08/28/20 09:39 promethazine HCl Allergy Hallucinati Verified 08/28/20 09:39 [From Phenergan] ons tramadol HCl [From Ultram] Allergy Rash Verified 08/28/20 09:39 Home Meds: Home Meds Tamsulosin HCl [Flomax] 0.4 mg PO DAILY 05/30/20 [History] oxyCODONE ER [OxyCONTIN] 1 tab PO BID 06/20/20 [History] oxyCODONE HCl/Acetaminophen [Percocet 10-325 mg Tablet] 0.5 tab PO Q6H PRN 06/20/20 [History] Ondansetron [Zofran] 4 mg PO Q6H PRN 06/21/20 [History] Past Medical History - Past Health History Medical/Surgical History: Denies Medical/Surgical History HEENT History: Reports: None Cardiovascular History: Reports: None Respiratory History: Reports: None Gastrointestinal History: Reports: Gastritis, GERD, Other (See Below) Other Gastrointestinal History: gallbladder pain Genitourinary History: Reports: Renal Calculus, Other (See Below) Other Genitourinary History: Vascular kidney disease. Chronic kidney and bladder pain, blood in urine Musculoskeletal History: Reports: None Neurological History: Reports: None Psychiatric History: Reports: Addiction Endocrine/Metabolic History: Reports: Obesity/BMI 30+ Hematologic History: Reports: None Immunologic History: Reports: None Oncologic (Cancer) History: Reports: None Dermatologic History: Reports: None - Infectious Disease History Infectious Disease History: Reports: Chicken Pox - Past Surgical History Head Surgeries/Procedures: Reports: None HEENT Surgical History: Reports: None Cardiovascular Surgical History: Reports: None GI Surgical History: Reports: Appendectomy, Cholecystectomy Male Surgical History: Reports: Circumcision Other Male Surgeries/Procedures: Has had kidney biopsy Musculoskeletal Surgical History: Reports: Other (See Below) Other Musculoskeletal Surgeries/Procedures:: left arm Social & Family History - Family History Family Medical History: No Pertinent Family History - Caffeine Use Caffeine Use: Reports: Coffee Caffeine Use Comment: 32 oz daily - Living Situation & Occupation Living situation: Reports: Single, Alone Occupation: Employed ED ROS GENERAL - Review of Systems Review Of Systems: Comprehensive ROS is negative, except as noted in HPI. ED EXAM, RENAL/ - Physical Exam Exam: See Below Exam Limited By: No Limitations General Appearance: Alert, WD/WN, Mild Distress Eye Exam: Bilateral Eye: EOMI, Normal Inspection, PERRL Ears: Normal External Exam, Normal Canal, Hearing Grossly Normal, Normal TMs Nose: Normal Inspection, Normal Mucosa, No Blood Throat/Mouth: Normal Inspection, Normal Lips, Normal Teeth, Normal Gums, Normal Oropharynx, Normal Voice, No Airway Compromise Head: Atraumatic, Normocephalic Neck: Normal Inspection, Supple, Non-Tender, Full Range of Motion Respiratory/Chest: No Respiratory Distress Cardiovascular: Normal Peripheral Pulses, Regular Rate, Rhythm, No Edema, No Gallop, No JVD, No Murmur, No Rub GI/Abdominal: Normal Bowel Sounds, Tender (diffuse lower abdominal tenderness) (Male) Exam: Deferred Back Exam: CVA Tenderness (L), CVA Tenderness (R) Extremities: Normal Inspection, Normal Range of Motion, Non-Tender, Normal Capillary Refill, No Pedal Edema Neurological: Alert, Oriented, CN II-XII Intact, Normal Cognition, Normal Gait, Normal Reflexes, No Motor/Sensory Deficits Psychiatric: Normal Affect, Normal Mood Skin Exam: Warm, Dry, Intact, Normal Color, No Rash Lymphatic: No Adenopathy Course - Vital Signs Last Recorded V/S: Last Vital Signs Temp 37.0 C 09/06/20 03:54 Pulse 65 09/06/20 04:01 Resp 18 09/06/20 04:01 BP 110/65 09/06/20 04:01 Pulse Ox 100 09/06/20 04:01 - Orders/Labs/Meds Meds: Medications Discontinued Medications Generic Name Dose Route Start Last Admin Trade Name Chavo PRN Reason Stop Dose Admin Hydromorphone HCl 1 mg 09/06/20 04:01 Dilaudid SUBCUT 09/06/20 04:02 ONETIME ONE Methylprednisolone Sodium Succinate 125 mg 09/06/20 04:01 Solu-Medrol IVPUSH 09/06/20 04:02 ONETIME ONE Departure - Departure Time of Disposition: 04:08 Disposition: Home, Self-Care 01 Condition: Fair Clinical Impression: Loin pain hematuria syndrome - Discharge Information *PRESCRIPTION DRUG MONITORING PROGRAM REVIEWED*: Yes *COPY OF PRESCRIPTION DRUG MONITORING REPORT IN PATIENT NICO: Yes Forms: ED Department Discharge Care Plan Goals: The patient was advised of the examination results during the visit. The patient was given an IV dose of SoluMedrol and an injection of Dilaudid while in the ED. The patient was encouraged to follow-up with his primary care facility for continued evaluation and further management. If the patient has any additional symptoms or concerns, the patient should either return to the emergency department or visit his primary care facility. Sepsis Event Note (ED) - Focused Exam Vital Signs: Vital Signs Temp Pulse Resp BP Pulse Ox 09/06/20 04:01 65 18 110/65 100 09/06/20 03:54 37.0 C 70 20 146/64 H 100 09/06/20 03:53 37.1 C 71 18 146/64 H 99
[2020-09-06] MEDS ORDERED: HYDROmorphone 1 MG/ML Syringe SUBCUT ONE (04:01)
[2020-09-06] MEDS ORDERED: methylPREDNISolone Sodium Succinate 125 MG/2 ML SDV IVPUSH ONE (04:01)
[2020-09-06 04:02] VITALS: BP 110/65; PULSE 65
== END 2020-09-06 04:21 | disposition home or self-care (01) ==
LOC: DL.ED 03:48
DX: M54.5 Low back pain (principal); R31.9 Hematuria, unspecified; E66.9 Obesity, unspecified; Z88.1 Allergy status to other antibiotic agents; Z91.030 Bee allergy status; Z88.5 Allergy status to narcotic agent; Z88.8 Allergy status to other drugs, medicaments and biological substances; Z79.899 Other long term (current) drug therapy; Z68.42 Body mass index [BMI] 45.0-49.9, adult
CPT/HCPCS: 96372; 96374; 99283; 99284-25; J1170; J2930

== ENCOUNTER 2020-09-14 03:30 | Emergency (ER) | payer MEDICAID ==
[2020-09-14] MEDS ORDERED: HYDROmorphone 1 MG/ML Syringe IM ONE (03:55)
[2020-09-14] MEDS ORDERED: Ondansetron 4 MG Tab.DIS PO ONE (03:55)
--- NOTE | 2020-09-14 04:21 | EDM.PDOC ---
ED HPI GENERAL MEDICAL PROBLEM - General Chief Complaint: Flank Pain Stated Complaint: AMBULANCE Time Seen by Provider: 09/14/20 03:45 Source of Information: Reports: Patient History Limitations: Reports: No Limitations - History of Present Illness INITIAL COMMENTS - FREE TEXT/NARRATIVE: ED with c/o bilateral flank pain and "peeing blood" Sudden onset, waking him from sleep. Chronic issue seen multiple times in ED for same. Underlying Henoch- Schon disease. Has been seen in [place] for possible denervation. Currently awaiting referral to [facility] [place] as [place] not doing procedure. Last took oxycodone at 2030 before bed. Nauseated with pain. No vomiting. No fever. no change in activity. Bilateral Flank Pain Score (Numeric/FACES): 9 - Related Data Allergies Allergy/AdvReac Type Severity Reaction Status Date / Time amoxicillin [Amoxicillin] Allergy Rash Verified 09/14/20 03:30 bee venom protein (honey bee) Allergy Cannot Verified 09/14/20 03:30 Remember ketorolac tromethamine Allergy Rash Verified 09/14/20 03:30 [From Toradol] metoclopramide [From Reglan] Allergy Agitation Verified 09/14/20 03:30 promethazine HCl Allergy Hallucinati Verified 09/14/20 03:30 [From Phenergan] ons tramadol HCl [From Ultram] Allergy Rash Verified 09/14/20 03:30 Home Meds: Home Meds Tamsulosin HCl [Flomax] 0.4 mg PO DAILY 05/30/20 [History] oxyCODONE ER [OxyCONTIN] 1 tab PO BID 06/20/20 [History] oxyCODONE HCl/Acetaminophen [Percocet 10-325 mg Tablet] 0.5 tab PO Q6H PRN 06/20/20 [History] Ondansetron [Zofran] 4 mg PO Q6H PRN 06/21/20 [History] Past Medical History - Past Health History Medical/Surgical History: Denies Medical/Surgical History HEENT History: Reports: None Cardiovascular History: Reports: None Respiratory History: Reports: None Gastrointestinal History: Reports: Gastritis, GERD, Other (See Below) Other Gastrointestinal History: gallbladder pain Genitourinary History: Reports: Renal Calculus, Other (See Below) Other Genitourinary History: Vascular kidney disease. Chronic kidney and bladder pain, blood in urine Musculoskeletal History: Reports: None Neurological History: Reports: None Psychiatric History: Reports: Addiction Endocrine/Metabolic History: Reports: Obesity/BMI 30+ Hematologic History: Reports: None Immunologic History: Reports: None Oncologic (Cancer) History: Reports: None Dermatologic History: Reports: None - Infectious Disease History Infectious Disease History: Reports: Chicken Pox - Past Surgical History Head Surgeries/Procedures: Reports: None HEENT Surgical History: Reports: None Cardiovascular Surgical History: Reports: None GI Surgical History: Reports: Appendectomy, Cholecystectomy Male Surgical History: Reports: Circumcision Other Male Surgeries/Procedures: Has had kidney biopsy Musculoskeletal Surgical History: Reports: Other (See Below) Other Musculoskeletal Surgeries/Procedures:: left arm Social & Family History - Family History Family Medical History: No Pertinent Family History - Tobacco Use Tobacco Use Status *Q: Never Tobacco User - Caffeine Use Caffeine Use: Reports: None Caffeine Use Comment: 32 oz daily - Recreational Drug Use Recreational Drug Use: No - Living Situation & Occupation Living situation: Reports: Single, Alone Occupation: Employed ED ROS GENERAL - Review of Systems Review Of Systems: Comprehensive ROS is negative, except as noted in HPI. ED EXAM, RENAL/ - Physical Exam Exam: See Below Exam Limited By: No Limitations General Appearance: Alert, Mild Distress, Obese Eye Exam: Bilateral Eye: EOMI Ears: Normal External Exam, Hearing Grossly Normal Throat/Mouth: Normal Voice, No Airway Compromise Head: Atraumatic, Normocephalic Neck: Normal Inspection Respiratory/Chest: No Respiratory Distress, Lungs Clear, Normal Breath Sounds Cardiovascular: Normal Peripheral Pulses, Regular Rate, Rhythm GI/Abdominal: Normal Bowel Sounds, Soft (Male) Exam: Other (Urine clear yellow) Back Exam: CVA Tenderness (L), CVA Tenderness (R) Extremities: Normal Inspection Neurological: Alert, Oriented, Normal Cognition Skin Exam: Warm, Dry, Intact, Normal Color Course - Vital Signs Last Recorded V/S: Last Vital Signs Temp 97.5 F 09/14/20 03:31 Pulse 68 09/14/20 03:31 Resp 20 09/14/20 03:31 BP 120/71 09/14/20 03:31 Pulse Ox 98 09/14/20 03:31 - Orders/Labs/Meds Labs: Laboratory Tests 09/14/20 09/14/20 Range/Units 03:55 03:55 Urine Color Yellow (YELLOW) Urine Appearance Clear (CLEAR) Urine pH 6.0 (5.0-9.0) Ur Specific [place] 1.025 (1.005-1.030) Urine Protein Negative (NEGATIVE) Urine Glucose (UA) Negative (NEGATIVE) Urine Ketones Negative (NEGATIVE) Urine Occult Blood Trace-lysed H (NEGATIVE) Urine Nitrite Negative (NEGATIVE) Urine Bilirubin Negative (NEGATIVE) Urine Urobilinogen 0.2 (0.2-1.0) mg/dL Ur Leukocyte Esterase Negative (NEGATIVE) Urine RBC 0-5 /HPF Urine WBC 5-10 H (0-5/HPF) /HPF Ur Epithelial Cells Rare (NOT SEEN) /HPF Amorphous Sediment Rare (NOT SEEN) /HPF Urine Bacteria Few (0-FEW/HPF) /HPF Urine Mucus Few H (NOT SEEN) /LPF Urine Opiates Screen Negative (NEGATIVE) Ur Oxycodone Screen Negative (NEGATIVE) Urine Methadone Screen Negative (NEGATIVE) Ur Barbiturates Screen Negative (NEGATIVE) U Tricyclic Antidepress Negative (NEGATIVE) Ur Phencyclidine Scrn Negative (NEGATIVE) Ur Amphetamine Screen Negative (NEGATIVE) U Methamphetamines Scrn Negative (NEGATIVE) Urine MDMA Screen Negative (NEGATIVE) U Benzodiazepines Scrn Negative (NEGATIVE) Urine Cocaine Screen Negative (NEGATIVE) U Marijuana (THC) Screen Positive H (NEGATIVE) Meds: Medications Discontinued Medications Generic Name Dose Route Start Last Admin Trade Name Chavo PRN Reason Stop Dose Admin Hydromorphone HCl 1 mg 09/14/20 03:55 09/14/20 04:03 Dilaudid IM 09/14/20 03:56 1 mg ONETIME ONE Administration Ondansetron HCl 4 mg 09/14/20 03:55 09/14/20 04:03 Zofran Odt PO 09/14/20 03:56 4 mg ONETIME ONE Administration Departure - Departure Time of Disposition: 04:20 Disposition: Home, Self-Care 01 Condition: Good Clinical Impression: Bilateral flank pain - Discharge Information *PRESCRIPTION DRUG MONITORING PROGRAM REVIEWED*: No *COPY OF PRESCRIPTION DRUG MONITORING REPORT IN PATIENT NICO: No Instructions: Flank Pain, Adult Forms: ED Department Discharge Additional Instructions: Increase Fluids Take pain medications as directed Follow up with primary care this week Sepsis Event Note (ED) - Evaluation Sepsis Screening Result: No Definite Risk
[2020-09-14 04:35] VITALS: BP 120/71; PULSE 68
== END 2020-09-14 04:28 | disposition home or self-care (01) ==
LOC: DL.ED 03:30
DX: R10.9 Unspecified abdominal pain (principal); E66.9 Obesity, unspecified; Z68.42 Body mass index [BMI] 45.0-49.9, adult; Z88.0 Allergy status to penicillin; Z91.030 Bee allergy status; Z88.6 Allergy status to analgesic agent; Z88.8 Allergy status to other drugs, medicaments and biological substances; Z88.5 Allergy status to narcotic agent
CPT/HCPCS: 80305; 81001; 96372; 99284; A9270; J1170

== ENCOUNTER 2020-09-15 12:04 | Emergency (ER) | payer MEDICAID ==
[2020-09-15 12:28] VITALS: BP 143/88; PULSE 88
--- NOTE | 2020-09-15 12:28 | EDM.PDOC ---
ED HPI GENERAL MEDICAL PROBLEM - General Chief Complaint: Genitourinary Problem Stated Complaint: BLOOD IN URINE, SEVERE ABDOMINAL PAIN Time Seen by Provider: 09/15/20 12:20 Source of Information: Reports: Patient History Limitations: Reports: No Limitations - History of Present Illness INITIAL COMMENTS - FREE TEXT/NARRATIVE: This 30 yo male patient reports to the ED with increased lower abdominal pain and blood in his urine. 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 The patient reports he did take his oxycodone this morning, but he has not had any change in his level of pain. The patient requested to be transferred to [place] to see his urologist. Dr. Faria was called to inform her of his current symptoms and recent visits. Dr. Faria advised that the patient continues to be under a pain management contract with her and she would continue to monitor the patient for appropriate pain management. Duration: Day(s):, Constant, Getting Worse Location: Reports: Abdomen (lower abdomen) Quality: Reports: Ache, Burning, Sharp Severity: Severe Improves with: Reports: None Worsens with: Reports: None Associated Symptoms: Reports: No Other Symptoms - Related Data Allergies Allergy/AdvReac Type Severity Reaction Status Date / Time amoxicillin [Amoxicillin] Allergy Rash Verified 09/14/20 03:30 bee venom protein (honey bee) Allergy Cannot Verified 09/14/20 03:30 Remember ketorolac tromethamine Allergy Rash Verified 09/14/20 03:30 [From Toradol] metoclopramide [From Reglan] Allergy Agitation Verified 09/14/20 03:30 promethazine HCl Allergy Hallucinati Verified 09/14/20 03:30 [From Phenergan] ons tramadol HCl [From Ultram] Allergy Rash Verified 09/14/20 03:30 Home Meds: Home Meds Tamsulosin HCl [Flomax] 0.4 mg PO DAILY 05/30/20 [History] oxyCODONE ER [OxyCONTIN] 1 tab PO BID 06/20/20 [History] oxyCODONE HCl/Acetaminophen [Percocet 10-325 mg Tablet] 0.5 tab PO Q6H PRN 06/20/20 [History] Ondansetron [Zofran] 4 mg PO Q6H PRN 06/21/20 [History] Past Medical History - Past Health History Medical/Surgical History: Denies Medical/Surgical History HEENT History: Reports: None Cardiovascular History: Reports: None Respiratory History: Reports: None Gastrointestinal History: Reports: Gastritis, GERD, Other (See Below) Other Gastrointestinal History: gallbladder pain Genitourinary History: Reports: Renal Calculus, Other (See Below) Other Genitourinary History: Vascular kidney disease. Chronic kidney and bladder pain, blood in urine Musculoskeletal History: Reports: None Neurological History: Reports: None Psychiatric History: Reports: Addiction Endocrine/Metabolic History: Reports: Obesity/BMI 30+ Hematologic History: Reports: None Immunologic History: Reports: None Oncologic (Cancer) History: Reports: None Dermatologic History: Reports: None - Infectious Disease History Infectious Disease History: Reports: Chicken Pox - Past Surgical History Head Surgeries/Procedures: Reports: None HEENT Surgical History: Reports: None Cardiovascular Surgical History: Reports: None GI Surgical History: Reports: Appendectomy, Cholecystectomy Male Surgical History: Reports: Circumcision Other Male Surgeries/Procedures: Has had kidney biopsy Musculoskeletal Surgical History: Reports: Other (See Below) Other Musculoskeletal Surgeries/Procedures:: left arm Social & Family History - Family History Family Medical History: No Pertinent Family History - Caffeine Use Caffeine Use: Reports: None Caffeine Use Comment: 32 oz daily - Living Situation & Occupation Living situation: Reports: Single, Alone Occupation: Employed ED ROS GENERAL - Review of Systems Review Of Systems: Comprehensive ROS is negative, except as noted in HPI. ED EXAM, RENAL/ - Physical Exam Exam: See Below Exam Limited By: No Limitations General Appearance: Alert, WD/WN, Moderate Distress, Obese Eye Exam: Bilateral Eye: EOMI, Normal Inspection, PERRL Ears: Normal External Exam, Normal Canal, Hearing Grossly Normal, Normal TMs Nose: Normal Inspection, Normal Mucosa, No Blood Throat/Mouth: Normal Inspection, Normal Lips, Normal Teeth, Normal Gums, Normal Oropharynx, Normal Voice, No Airway Compromise Head: Atraumatic, Normocephalic Neck: Normal Inspection, Supple, Non-Tender, Full Range of Motion Respiratory/Chest: No Respiratory Distress, Lungs Clear, Normal Breath Sounds, No Accessory Muscle Use, Chest Non-Tender Cardiovascular: Normal Peripheral Pulses, Regular Rate, Rhythm, No Edema, No Gallop, No JVD, No Murmur, No Rub GI/Abdominal: Normal Bowel Sounds, Tender (diffuse abdominal tenderness) (Male) Exam: Deferred Rectal (Males) Exam: Deferred Back Exam: Normal Inspection, Full Range of Motion, NT Extremities: Normal Inspection, Normal Range of Motion, Non-Tender, Normal Capillary Refill, No Pedal Edema Neurological: Alert, Oriented, CN II-XII Intact, Normal Cognition, Normal Gait, Normal Reflexes, No Motor/Sensory Deficits Psychiatric: Normal Affect, Normal Mood Skin Exam: Warm, Dry, Intact, Normal Color, No Rash Lymphatic: No Adenopathy Course - Vital Signs Last Recorded V/S: Last Vital Signs Temp 36.9 C 09/15/20 12:26 Pulse 88 09/15/20 12:26 Resp 14 09/15/20 12:26 BP 143/88 H 09/15/20 12:26 Pulse Ox 99 09/15/20 12:26 - Orders/Labs/Meds Labs: Laboratory Tests 09/15/20 09/15/20 09/15/20 Range/Units 12:30 12:30 12:33 WBC 11.2 H (5.0-10.0) 10^3/uL RBC 5.46 (4.6-6.2) 10^6/uL Hgb 16.4 (14.0-18.0) g/dL Hct 46.6 (40.0-54.0) % MCV 85.3 (80-100) fL MCH 30.0 (27.0-34.0) pg MCHC 35.2 H (33.0-35.0) g/dL Plt Count 304 (150-450) 10^3/uL Neut % (Auto) 68.2 (42.2-75.2) % Lymph % (Auto) 24.6 (20.5-50.1) % [place] % (Auto) 5.3 (2-8) % Eos % (Auto) 1.6 (1.0-3.0) % Baso % (Auto) 0.3 (0.0-1.0) % Sodium (136-145) mmol/L Potassium (3.5-5.1) mmol/L Chloride (98-107) mmol/L Carbon Dioxide (21-32) mmol/L Anion Gap (7-13) mEq/L BUN (7-18) mg/dL Creatinine (0.70-1.30) mg/dL Est Cr Clr Drug Dosing Estimated GFR (MDRD) BUN/Creatinine Ratio (No establ ref range) Glucose (74-99) mg/dL Calcium (8.5-10.1) mg/dL Total Bilirubin (0.2-1.0) mg/dL AST (15-37) U/L ALT (16-63) U/L Alkaline Phosphatase (46-116) U/L Total Protein (6.4-8.2) g/dL Albumin (3.4-5.0) g/dL Globulin Albumin/Globulin Ratio Urine Color Dark yellow (YELLOW) Urine Appearance Cloudy (CLEAR) Urine pH 5.5 (5.0-9.0) Ur Specific [place] >= 1.030 (1.005-1.030) Urine Protein 30 H (NEGATIVE) Urine Glucose (UA) Negative (NEGATIVE) Urine Ketones Negative (NEGATIVE) Urine Occult Blood Large H (NEGATIVE) Urine Nitrite Negative (NEGATIVE) Urine Bilirubin Negative (NEGATIVE) Urine Urobilinogen 0.2 (0.2-1.0) mg/dL Ur Leukocyte Esterase Negative (NEGATIVE) Urine RBC >100 H /HPF Urine WBC 0-5 (0-5/HPF) /HPF Ur Epithelial Cells Few (NOT SEEN) /HPF Urine Bacteria Not seen (0-FEW/HPF) /HPF Urine Mucus Rare (NOT SEEN) /LPF Urine Opiates Screen Negative (NEGATIVE) Ur Oxycodone Screen Negative (NEGATIVE) Urine Methadone Screen Negative (NEGATIVE) Ur Barbiturates Screen Negative (NEGATIVE) U Tricyclic Antidepress Negative (NEGATIVE) Ur Phencyclidine Scrn Negative (NEGATIVE) Ur Amphetamine Screen Negative (NEGATIVE) U Methamphetamines Scrn Negative (NEGATIVE) Urine MDMA Screen Negative (NEGATIVE) U Benzodiazepines Scrn Negative (NEGATIVE) Urine Cocaine Screen Negative (NEGATIVE) U Marijuana (THC) Screen Positive H (NEGATIVE) 09/15/20 Range/Units 12:33 WBC (5.0-10.0) 10^3/uL RBC (4.6-6.2) 10^6/uL Hgb (14.0-18.0) g/dL Hct (40.0-54.0) % MCV (80-100) fL MCH (27.0-34.0) pg MCHC (33.0-35.0) g/dL Plt Count (150-450) 10^3/uL Neut % (Auto) (42.2-75.2) % Lymph % (Auto) (20.5-50.1) % [place] % (Auto) (2-8) % Eos % (Auto) (1.0-3.0) % Baso % (Auto) (0.0-1.0) % Sodium 138 (136-145) mmol/L Potassium 4.1 (3.5-5.1) mmol/L Chloride 103 (98-107) mmol/L Carbon Dioxide 27 (21-32) mmol/L Anion Gap 12.1 (7-13) mEq/L BUN 12 (7-18) mg/dL Creatinine 0.94 (0.70-1.30) mg/dL Est Cr Clr Drug Dosing TNP Estimated GFR (MDRD) > 60 BUN/Creatinine Ratio 12.8 (No establ ref range) Glucose 91 (74-99) mg/dL Calcium 8.8 (8.5-10.1) mg/dL Total Bilirubin 0.7 (0.2-1.0) mg/dL AST 17 (15-37) U/L ALT 37 (16-63) U/L Alkaline Phosphatase 81 (46-116) U/L Total Protein 7.9 (6.4-8.2) g/dL Albumin 4.2 (3.4-5.0) g/dL Globulin 3.7 Albumin/Globulin Ratio 1.1 Urine Color (YELLOW) Urine Appearance (CLEAR) Urine pH (5.0-9.0) Ur Specific [place] (1.005-1.030) Urine Protein (NEGATIVE) Urine Glucose (UA) (NEGATIVE) Urine Ketones (NEGATIVE) Urine Occult Blood (NEGATIVE) Urine Nitrite (NEGATIVE) Urine Bilirubin (NEGATIVE) Urine Urobilinogen (0.2-1.0) mg/dL Ur Leukocyte Esterase (NEGATIVE) Urine RBC /HPF Urine WBC (0-5/HPF) /HPF Ur Epithelial Cells (NOT SEEN) /HPF Urine Bacteria (0-FEW/HPF) /HPF Urine Mucus (NOT SEEN) /LPF Urine Opiates Screen (NEGATIVE) Ur Oxycodone Screen (NEGATIVE) Urine Methadone Screen (NEGATIVE) Ur Barbiturates Screen (NEGATIVE) U Tricyclic Antidepress (NEGATIVE) Ur Phencyclidine Scrn (NEGATIVE) Ur Amphetamine Screen (NEGATIVE) U Methamphetamines Scrn (NEGATIVE) Urine MDMA Screen (NEGATIVE) U Benzodiazepines Scrn (NEGATIVE) Urine Cocaine Screen (NEGATIVE) U Marijuana (THC) Screen (NEGATIVE) Meds: Medications Discontinued Medications Generic Name Dose Route Start Last Admin Trade Name Chavo PRN Reason Stop Dose Admin Oxycodone HCl 10 mg 09/15/20 13:04 Oxycodone PO 09/15/20 13:05 ONETIME ONE Departure - Departure Time of Disposition: 13:07 Disposition: Home, Self-Care 01 Condition: Fair Clinical Impression: Loin pain hematuria syndrome - Discharge Information *PRESCRIPTION DRUG MONITORING PROGRAM REVIEWED*: Not Applicable *COPY OF PRESCRIPTION DRUG MONITORING REPORT IN PATIENT NICO: Not Applicable Forms: ED Department Discharge Care Plan Goals: The patient was advised of the examination and lab results during the visit. Since the patient's drug screen was negative for opiates and oxycodone, the patient was given an oral dose of Oxycodone. The patient was advised to follow- up with his primary care facility for continued evaluation and management. If the patient has any additional symptoms or concerns, the patient should either return to the emergency department or visit his primary care facility. Sepsis Event Note (ED) - Focused Exam Vital Signs: Vital Signs Temp Pulse Resp BP Pulse Ox 09/15/20 12:26 36.9 C 88 14 143/88 H 99
[2020-09-15 12:56] LABS: ANION GAP 12.1 mEq/L (7-13); CHLORIDE,CL 103 mmol/L (98-107); SODIUM,NA 138 mmol/L (136-145)
[2020-09-15] MEDS ORDERED: oxyCODONE 5 MG Tab PO ONE (13:04)
== END 2020-09-15 13:23 | disposition home or self-care (01) ==
LOC: DL.ED 12:04
DX: R31.9 Hematuria, unspecified (principal); R10.30 Lower abdominal pain, unspecified; E66.9 Obesity, unspecified; Z88.0 Allergy status to penicillin; Z91.030 Bee allergy status; Z88.6 Allergy status to analgesic agent; Z88.5 Allergy status to narcotic agent
CPT/HCPCS: 36415; 80053; 80305-QW; 81001; 85025; 99284; A9270-GY

== ENCOUNTER 2020-09-19 19:54 | Emergency (ER) | payer MEDICAID ==
[2020-09-19 20:10] VITALS: BP 128/74; PULSE 69
--- NOTE | 2020-09-19 20:21 | EDM.PDOC ---
ED HPI GENERAL MEDICAL PROBLEM - General Chief Complaint: Respiratory Problem Stated Complaint: COVID POS, COUGHING, SHORT OF BREATHING, LT HEADED Time Seen by Provider: 09/19/20 20:19 Source of Information: Reports: Patient History Limitations: Reports: No Limitations - History of Present Illness INITIAL COMMENTS - FREE TEXT/NARRATIVE: pos covid on 18 now has cough and loss smell and taste. Bilateral Chest Pain Score (Numeric/FACES): 7 - Related Data Allergies Allergy/AdvReac Type Severity Reaction Status Date / Time amoxicillin [Amoxicillin] Allergy Rash Verified 09/14/20 03:30 bee venom protein (honey bee) Allergy Cannot Verified 09/14/20 03:30 Remember ketorolac tromethamine Allergy Rash Verified 09/14/20 03:30 [From Toradol] metoclopramide [From Reglan] Allergy Agitation Verified 09/14/20 03:30 promethazine HCl Allergy Hallucinati Verified 09/14/20 03:30 [From Phenergan] ons tramadol HCl [From Ultram] Allergy Rash Verified 09/14/20 03:30 Home Meds: Home Meds Tamsulosin HCl [Flomax] 0.4 mg PO DAILY 05/30/20 [History] oxyCODONE ER [OxyCONTIN] 1 tab PO BID 06/20/20 [History] oxyCODONE HCl/Acetaminophen [Percocet 10-325 mg Tablet] 0.5 tab PO Q6H PRN 06/20/20 [History] Ondansetron [Zofran] 4 mg PO Q6H PRN 06/21/20 [History] Past Medical History - Past Health History Medical/Surgical History: Denies Medical/Surgical History HEENT History: Reports: None Cardiovascular History: Reports: None Respiratory History: Reports: None Gastrointestinal History: Reports: Gastritis, GERD, Other (See Below) Other Gastrointestinal History: gallbladder pain Genitourinary History: Reports: Renal Calculus, Other (See Below) Other Genitourinary History: Vascular kidney disease. Chronic kidney and bladder pain, blood in urine Musculoskeletal History: Reports: None Neurological History: Reports: None Psychiatric History: Reports: Addiction Endocrine/Metabolic History: Reports: Obesity/BMI 30+ Hematologic History: Reports: None Immunologic History: Reports: None Oncologic (Cancer) History: Reports: None Dermatologic History: Reports: None - Infectious Disease History Infectious Disease History: Reports: Chicken Pox, Novel Coronavirus - Past Surgical History Head Surgeries/Procedures: Reports: None HEENT Surgical History: Reports: None Cardiovascular Surgical History: Reports: None GI Surgical History: Reports: Appendectomy, Cholecystectomy Male Surgical History: Reports: Circumcision Other Male Surgeries/Procedures: Has had kidney biopsy Musculoskeletal Surgical History: Reports: Other (See Below) Other Musculoskeletal Surgeries/Procedures:: left arm Social & Family History - Family History Family Medical History: No Pertinent Family History - Tobacco Use Tobacco Use Status *Q: Never Tobacco User Second Hand Smoke Exposure: No - Caffeine Use Caffeine Use: Reports: None Caffeine Use Comment: 32 oz daily - Recreational Drug Use Recreational Drug Use: No - Living Situation & Occupation Living situation: Reports: Single, Alone Occupation: Employed ED ROS GENERAL - Review of Systems Review Of Systems: Comprehensive ROS is negative, except as noted in HPI. ED EXAM, GENERAL - Physical Exam Exam: See Below Exam Limited By: No Limitations General Appearance: Alert, WD/WN, No Apparent Distress Ears: Hearing Grossly Normal Throat/Mouth: Normal Voice, No Airway Compromise Head: Atraumatic Neck: Non-Tender, Full Range of Motion Respiratory/Chest: No Respiratory Distress Cardiovascular: Regular Rate, Rhythm GI/Abdominal: Soft, Non-Tender (Male) Exam: Deferred Rectal (Males) Exam: Deferred Back Exam: Full Range of Motion Extremities: Normal Range of Motion Neurological: Alert, Oriented, Normal Cognition, Normal Gait, No Motor/Sensory Deficits Psychiatric: Flat Affect Skin Exam: Warm, Dry, Normal Color Lymphatic: No Adenopathy Course - Vital Signs Last Recorded V/S: Last Vital Signs Temp 36.3 C 09/19/20 20:05 Pulse 69 09/19/20 20:05 Resp 18 09/19/20 20:05 BP 128/74 09/19/20 20:05 Pulse Ox 98 09/19/20 20:05 - Orders/Labs/Meds Labs: Laboratory Tests 09/19/20 09/19/20 09/19/20 Range/Units 20:35 20:35 20:35 WBC 11.1 H (5.0-10.0) 10^3/uL RBC 4.89 (4.6-6.2) 10^6/uL Hgb 14.9 D (14.0-18.0) g/dL Hct 42.2 (40.0-54.0) % MCV 86.3 (80-100) fL MCH 30.5 (27.0-34.0) pg MCHC 35.3 H (33.0-35.0) g/dL Plt Count 276 (150-450) 10^3/uL Neut % (Auto) 67.8 (42.2-75.2) % Lymph % (Auto) 23.6 (20.5-50.1) % [place] % (Auto) 5.3 (2-8) % Eos % (Auto) 3.1 H (1.0-3.0) % Baso % (Auto) 0.2 (0.0-1.0) % D-Dimer, Quantitative < 100 (0-400) ng/mL Sodium 141 (136-145) mmol/L Potassium 3.9 (3.5-5.1) mmol/L Chloride 106 (98-107) mmol/L Carbon Dioxide 24 (21-32) mmol/L Anion Gap 14.9 H (7-13) mEq/L BUN 15 (7-18) mg/dL Creatinine 1.11 (0.70-1.30) mg/dL Est Cr Clr Drug Dosing 107.78 mL/min Estimated GFR (MDRD) > 60 BUN/Creatinine Ratio 13.5 (No establ ref range) Glucose 121 H (74-99) mg/dL Calcium 8.2 L (8.5-10.1) mg/dL Total Bilirubin 0.3 (0.2-1.0) mg/dL AST 16 (15-37) U/L ALT 36 (16-63) U/L Alkaline Phosphatase 101 (46-116) U/L Troponin I < 0.017 (0.000-0.056) ng/mL Total Protein 7.1 (6.4-8.2) g/dL Albumin 3.7 (3.4-5.0) g/dL Globulin 3.4 Albumin/Globulin Ratio 1.1 Meds: Medications Discontinued Medications Generic Name Dose Route Start Last Admin Trade Name Freq PRN Reason Stop Dose Admin Benzonatate 100 mg 09/19/20 21:49 Tessalon Perles PO 09/19/20 21:50 ONETIME ONE - Re-Assessments/Exams Free Text/Narrative Re-Assessment/Exam: 09/19/20 21:50 results discussed with pt, Departure - Departure Time of Disposition: 21:50 Disposition: Home, Self-Care 01 Condition: Good Clinical Impression: History of COVID-19 - Discharge Information Forms: ED Department Discharge Additional Instructions: 1) rest 2) follow up at clinic rx given; tessalon pearle 100mg bid prn x 6 Sepsis Event Note (ED) - Evaluation Sepsis Screening Result: No Definite Risk - Focused Exam Vital Signs: Vital Signs Temp Pulse Resp BP Pulse Ox 09/19/20 20:05 36.3 C 69 18 128/74 98
[2020-09-19 21:00] LABS: ANION GAP 14.9 mEq/L (7-13); CHLORIDE,CL 106 mmol/L (98-107); SODIUM,NA 141 mmol/L (136-145)
[2020-09-19] MEDS ORDERED: Benzonatate 100 MG Cap PO ONE (21:49)
== END 2020-09-19 22:03 | disposition home or self-care (01) ==
LOC: DL.ED 19:54
DX: R05 Cough (principal); R43.8 Other disturbances of smell and taste; E66.9 Obesity, unspecified; Z68.42 Body mass index [BMI] 45.0-49.9, adult; Z86.16 Personal history of COVID-19; Z88.0 Allergy status to penicillin; Z91.030 Bee allergy status; Z88.5 Allergy status to narcotic agent; Z88.8 Allergy status to other drugs, medicaments and biological substances
CPT/HCPCS: 36415; 80053; 84484; 85025; 85379; 99283; A9270

== ENCOUNTER 2020-09-21 12:18 | Emergency (ER) | payer MEDICAID ==
[2020-09-21 12:51] VITALS: BP 133/96; PULSE 55
--- NOTE | 2020-09-21 13:55 | EDM.PDOC ---
ED HPI GENERAL MEDICAL PROBLEM - General Chief Complaint: Genitourinary Problem Stated Complaint: PASSING BLOOD Time Seen by Provider: 09/21/20 12:45 Source of Information: Reports: Patient History Limitations: Reports: No Limitations - History of Present Illness INITIAL COMMENTS - FREE TEXT/NARRATIVE: This 30 yo male patient reports to the ED with continued lower abdominal and bilateral lower back pain. The patient has a history of loin pain hematuria syndrome. The patient does have a pain contract with Dr. Faria, but did not make an appointment for a pill count. The patient reports he is out of his pain medications, but can not deal with the pain. The patient reports he has an appointment with urology later this week and an appointment with [facility] in [place] for pain management. The patient also reports he has an appointment with Dr. Faria tomorrow morning to discuss pain management. Onset: Unknown/Unsure Duration: Day(s):, Constant Location: Reports: Abdomen Quality: Reports: Ache Severity: Moderate Improves with: Reports: None Worsens with: Reports: None Context: Reports: Other Associated Symptoms: Reports: No Other Symptoms Generalized Pain Score (Numeric/FACES): 10 - Related Data Allergies Allergy/AdvReac Type Severity Reaction Status Date / Time amoxicillin [Amoxicillin] Allergy Rash Verified 09/14/20 03:30 bee venom protein (honey bee) Allergy Cannot Verified 09/14/20 03:30 Remember ketorolac tromethamine Allergy Rash Verified 09/14/20 03:30 [From Toradol] metoclopramide [From Reglan] Allergy Agitation Verified 09/14/20 03:30 promethazine HCl Allergy Hallucinati Verified 09/14/20 03:30 [From Phenergan] ons tramadol HCl [From Ultram] Allergy Rash Verified 09/14/20 03:30 Home Meds: Home Meds Tamsulosin HCl [Flomax] 0.4 mg PO DAILY 05/30/20 [History] oxyCODONE ER [OxyCONTIN] 1 tab PO BID 06/20/20 [History] oxyCODONE HCl/Acetaminophen [Percocet 10-325 mg Tablet] 0.5 tab PO Q6H PRN 06/20/20 [History] Ondansetron [Zofran] 4 mg PO Q6H PRN 06/21/20 [History] Past Medical History - Past Health History Medical/Surgical History: Denies Medical/Surgical History HEENT History: Reports: None Cardiovascular History: Reports: None Respiratory History: Reports: None Gastrointestinal History: Reports: Gastritis, GERD, Other (See Below) Other Gastrointestinal History: gallbladder pain Genitourinary History: Reports: Renal Calculus, Other (See Below) Other Genitourinary History: Vascular kidney disease. Chronic kidney and bladder pain, blood in urine Musculoskeletal History: Reports: None Neurological History: Reports: None Psychiatric History: Reports: Addiction Endocrine/Metabolic History: Reports: Obesity/BMI 30+ Hematologic History: Reports: None Immunologic History: Reports: None Oncologic (Cancer) History: Reports: None Dermatologic History: Reports: None - Infectious Disease History Infectious Disease History: Reports: Chicken Pox, Novel Coronavirus - Past Surgical History Head Surgeries/Procedures: Reports: None HEENT Surgical History: Reports: None Cardiovascular Surgical History: Reports: None GI Surgical History: Reports: Appendectomy, Cholecystectomy Male Surgical History: Reports: Circumcision Other Male Surgeries/Procedures: Has had kidney biopsy Musculoskeletal Surgical History: Reports: Other (See Below) Other Musculoskeletal Surgeries/Procedures:: left arm Social & Family History - Family History Family Medical History: No Pertinent Family History - Tobacco Use Tobacco Use Status *Q: Never Tobacco User - Caffeine Use Caffeine Use: Reports: Soda Caffeine Use Comment: 32 oz daily - Recreational Drug Use Recreational Drug Use: No - Living Situation & Occupation Living situation: Reports: Single, Alone Occupation: Employed ED ROS GENERAL - Review of Systems Review Of Systems: Comprehensive ROS is negative, except as noted in HPI. ED EXAM, RENAL/ - Physical Exam Exam: See Below Exam Limited By: No Limitations General Appearance: Alert, WD/WN, Moderate Distress Eye Exam: Bilateral Eye: EOMI, Normal Inspection, PERRL Ears: Normal External Exam, Normal Canal, Hearing Grossly Normal, Normal TMs Nose: Normal Inspection, Normal Mucosa, No Blood Throat/Mouth: Normal Inspection, Normal Lips, Normal Teeth, Normal Gums, Normal Oropharynx, Normal Voice, No Airway Compromise Head: Atraumatic, Normocephalic Neck: Normal Inspection, Supple, Non-Tender, Full Range of Motion Respiratory/Chest: No Respiratory Distress, Lungs Clear, Normal Breath Sounds, No Accessory Muscle Use, Chest Non-Tender Cardiovascular: Normal Peripheral Pulses, Regular Rate, Rhythm, No Edema, No Gallop, No JVD, No Murmur, No Rub GI/Abdominal: Normal Bowel Sounds, Soft, Non-Tender, No Organomegaly, No Distention, No Abnormal Bruit, No Mass, Other (obese) (Male) Exam: Deferred Rectal (Males) Exam: Deferred Back Exam: Normal Inspection, Full Range of Motion, NT Extremities: Normal Inspection, Normal Range of Motion, Non-Tender, Normal Capillary Refill, No Pedal Edema Neurological: Alert, Oriented, CN II-XII Intact, Normal Cognition, Normal Gait, Normal Reflexes, No Motor/Sensory Deficits Psychiatric: Anxious Skin Exam: Warm, Dry, Intact, Normal Color, No Rash Lymphatic: No Adenopathy Course - Vital Signs Last Recorded V/S: Last Vital Signs Temp 36.2 C 09/21/20 12:38 Pulse 55 L 09/21/20 12:38 Resp 14 09/21/20 12:38 BP 133/96 H 09/21/20 12:38 Pulse Ox 99 09/21/20 12:38 - Orders/Labs/Meds Labs: Laboratory Tests 09/21/20 09/21/20 Range/Units 12:40 12:40 Urine Color Dark yellow (YELLOW) Urine Appearance Slightly cloudy (CLEAR) Urine pH 5.5 (5.0-9.0) Ur Specific [place] >= 1.030 (1.005-1.030) Urine Protein Trace H (NEGATIVE) Urine Glucose (UA) Negative (NEGATIVE) Urine Ketones Negative (NEGATIVE) Urine Occult Blood Large H (NEGATIVE) Urine Nitrite Negative (NEGATIVE) Urine Bilirubin Negative (NEGATIVE) Urine Urobilinogen 0.2 (0.2-1.0) mg/dL Ur Leukocyte Esterase Negative (NEGATIVE) Urine RBC >100 H /HPF Urine WBC 0-5 (0-5/HPF) /HPF Ur Epithelial Cells Few (NOT SEEN) /HPF Urine Bacteria Not seen (0-FEW/HPF) /HPF Urine Mucus Not seen (NOT SEEN) /LPF Urine Opiates Screen Negative (NEGATIVE) Ur Oxycodone Screen Negative (NEGATIVE) Urine Methadone Screen Negative (NEGATIVE) Ur Barbiturates Screen Negative (NEGATIVE) U Tricyclic Antidepress Positive H (NEGATIVE) Ur Phencyclidine Scrn Negative (NEGATIVE) Ur Amphetamine Screen Negative (NEGATIVE) U Methamphetamines Scrn Negative (NEGATIVE) Urine MDMA Screen Negative (NEGATIVE) U Benzodiazepines Scrn Negative (NEGATIVE) Urine Cocaine Screen Negative (NEGATIVE) U Marijuana (THC) Screen Positive H (NEGATIVE) Meds: Medications Discontinued Medications Generic Name Dose Route Start Last Admin Trade Name Chavo PRN Reason Stop Dose Admin Oxycodone/Acetaminophen 1 tab 09/21/20 13:45 Percocet 325-5 Mg PO 09/21/20 13:46 ONETIME ONE Departure - Departure Time of Disposition: 13:55 Disposition: Home, Self-Care 01 Condition: Fair Clinical Impression: Loin pain hematuria syndrome - Discharge Information *PRESCRIPTION DRUG MONITORING PROGRAM REVIEWED*: Not Applicable *COPY OF PRESCRIPTION DRUG MONITORING REPORT IN PATIENT NICO: Not Applicable Care Plan Goals: The patient was advised of the examination and lab results during the visit. The patient was given an oral dose of Percocet (5/325) while in the ED. The patient was discharged with a script for Percocet (5/325) #2 to take 1 by mouth every 6 hours for pain. The patient was advised that he will need to establish with a primary care provider. The patient was advised that he will not be able to get any additional take home medications for similar symptoms out of the emergency department. If the patient has any additional symptoms or concerns, the patient should either visit his primary care facility or return to the emergency department. Sepsis Event Note (ED) - Evaluation Sepsis Screening Result: No Definite Risk - Focused Exam Vital Signs: Vital Signs Temp Pulse Resp BP Pulse Ox 09/21/20 12:38 36.2 C 55 L 14 133/96 H 99
[2020-09-21] MEDS: Acetaminophen/oxyCODONE 325-5 MG Tab PO ONE (13:59)
== END 2020-09-21 14:06 | disposition home or self-care (01) ==
LOC: DL.ED 12:18
DX: N39.8 Other specified disorders of urinary system (principal); E66.9 Obesity, unspecified; Z68.42 Body mass index [BMI] 45.0-49.9, adult; Z88.0 Allergy status to penicillin; Z91.030 Bee allergy status; Z88.6 Allergy status to analgesic agent; Z88.8 Allergy status to other drugs, medicaments and biological substances; Z88.5 Allergy status to narcotic agent; Z79.899 Other long term (current) drug therapy
CPT/HCPCS: 80305; 81001; 99283; 99284; A9270

== ENCOUNTER 2020-10-05 08:29 | Emergency (ER) | payer MEDICAID ==
--- NOTE | 2020-10-05 08:36 | EDM.PDOC ---
ED HPI GENERAL MEDICAL PROBLEM - General Chief Complaint: Genitourinary Problem Stated Complaint: KIDNEYS Time Seen by Provider: 10/05/20 08:35 Source of Information: Reports: Patient, Old Records, RN, RN Notes Reviewed History Limitations: Reports: No Limitations - History of Present Illness INITIAL COMMENTS - FREE TEXT/NARRATIVE: Pt presents to ER with c/o severe left flank pain. Pt has Hx of 'Loin pain hematuria syndrome' with recurrent episodes of severe flank pain and gross hematuria. He has remote Hx of HSP. Denies fever, chills, or vomiting. He is out of Flomax, Zofran, and pain medicine. He admits he has to find a new PCP as he and his doctor did not agree regarding his pain management. He has an appointment today with [facility] regarding autotransplant. Pt states he was doing well for the last couple of weeks, but woke this morning a 0400HRS with pain and hematuria. Onset: Today Onset Time: 04:00 Duration: Chronic, Recurring Location: Reports: Other (Flank, urinary) Quality: Reports: Same as Previous Episode Severity: Severe Improves with: Reports: None Worsens with: Reports: None Associated Symptoms: Reports: No Other Symptoms - Related Data Allergies Allergy/AdvReac Type Severity Reaction Status Date / Time amoxicillin [Amoxicillin] Allergy Rash Verified 09/14/20 03:30 bee venom protein (honey bee) Allergy Cannot Verified 09/14/20 03:30 Remember ketorolac tromethamine Allergy Rash Verified 09/14/20 03:30 [From Toradol] metoclopramide [From Reglan] Allergy Agitation Verified 09/14/20 03:30 promethazine HCl Allergy Hallucinati Verified 09/14/20 03:30 [From Phenergan] ons tramadol HCl [From Ultram] Allergy Rash Verified 09/14/20 03:30 Home Meds: Home Meds Tamsulosin HCl [Flomax] 0.4 mg PO DAILY 05/30/20 [History] oxyCODONE ER [OxyCONTIN] 1 tab PO BID 06/20/20 [History] oxyCODONE HCl/Acetaminophen [Percocet 10-325 mg Tablet] 0.5 tab PO Q6H PRN 06/20/20 [History] Ondansetron [Zofran] 4 mg PO Q6H PRN 10/26/20 [History] Past Medical History - Past Health History Medical/Surgical History: Denies Medical/Surgical History HEENT History: Reports: None Cardiovascular History: Reports: None Respiratory History: Reports: None Gastrointestinal History: Reports: Gastritis, GERD, Other (See Below) Other Gastrointestinal History: gallbladder pain Genitourinary History: Reports: Renal Calculus, Other (See Below) Other Genitourinary History: Vascular kidney disease. Chronic kidney and bladder pain, blood in urine Musculoskeletal History: Reports: None Neurological History: Reports: None Psychiatric History: Reports: Addiction Endocrine/Metabolic History: Reports: Obesity/BMI 30+ Hematologic History: Reports: None Immunologic History: Reports: None Oncologic (Cancer) History: Reports: None Dermatologic History: Reports: None - Infectious Disease History Infectious Disease History: Reports: Chicken Pox, Novel Coronavirus - Past Surgical History Head Surgeries/Procedures: Reports: None HEENT Surgical History: Reports: None Cardiovascular Surgical History: Reports: None GI Surgical History: Reports: Appendectomy, Cholecystectomy Male Surgical History: Reports: Circumcision Other Male Surgeries/Procedures: Has had kidney biopsy Musculoskeletal Surgical History: Reports: Other (See Below) Other Musculoskeletal Surgeries/Procedures:: left arm Social & Family History - Family History Family Medical History: No Pertinent Family History - Caffeine Use Caffeine Use: Reports: Soda Caffeine Use Comment: 32 oz daily - Living Situation & Occupation Living situation: Reports: Single, Alone Occupation: Employed ED ROS GENERAL - Review of Systems Review Of Systems: Comprehensive ROS is negative, except as noted in HPI. ED EXAM, RENAL/ - Physical Exam Exam: See Below Exam Limited By: No Limitations General Appearance: Alert, No Apparent Distress, Obese, Other (Uncomfortable appearing). No: Active Emesis Throat/Mouth: Normal Voice, No Airway Compromise Head: Atraumatic, Normocephalic Respiratory/Chest: No Respiratory Distress, Lungs Clear, Normal Breath Sounds, No Accessory Muscle Use, Chest Non-Tender Cardiovascular: Regular Rate, Rhythm, No Edema GI/Abdominal: Normal Bowel Sounds, Soft, Non-Tender, Other (Benign obese abdomen) (Male) Exam: Deferred Back Exam: Full Range of Motion, CVA Tenderness (L). No: CVA Tenderness (R), Vertebral Tenderness Extremities: Normal Inspection Neurological: Alert, Oriented, No Motor/Sensory Deficits Psychiatric: Normal Mood Skin Exam: Warm, Dry, Intact, Normal Color, No Rash. No: Ecchymosis, Petechiae Course - Vital Signs Last Recorded V/S: Last Vital Signs Temp 97.4 F 10/05/20 08:45 Pulse 59 L 10/05/20 08:45 Resp 20 10/05/20 08:45 BP 133/60 10/05/20 08:45 Pulse Ox 100 10/05/20 08:45 - Orders/Labs/Meds Meds: Medications Discontinued Medications Generic Name Dose Route Start Last Admin Trade Name Chavo PRN Reason Stop Dose Admin Hydromorphone HCl 1 mg 10/05/20 08:41 Dilaudid IM 10/05/20 08:42 ONETIME ONE Prednisone 60 mg 10/05/20 08:41 Prednisone PO 10/05/20 08:42 ONETIME ONE Tamsulosin HCl 0.4 mg 10/05/20 08:40 Flomax PO 10/05/20 08:41 ONETIME ONE Departure - Departure Time of Disposition: 08:42 Disposition: Home, Self-Care 01 Condition: Good Clinical Impression: Loin pain hematuria syndrome, Gross hematuria - Discharge Information *PRESCRIPTION DRUG MONITORING PROGRAM REVIEWED*: No *COPY OF PRESCRIPTION DRUG MONITORING REPORT IN PATIENT NICO: No Instructions: Hematuria, Adult Forms: ED Department Discharge Additional Instructions: Rx: Flomax 0.4mg Rx: Zofran 4mg Rx: Prednisone 20mg Follow up with specialist today as planned. Follow up with primary doctor for ongoing pain management. Sepsis Event Note (ED) - Focused Exam Vital Signs: Vital Signs Temp Pulse Resp BP Pulse Ox 10/05/20 08:45 97.4 F 59 L 20 133/60 100
[2020-10-05] MEDS ORDERED: Tamsulosin 0.4 MG Cap.ER PO ONE (08:40)
[2020-10-05] MEDS ORDERED: HYDROmorphone 1 MG/ML Syringe IM ONE (08:41)
[2020-10-05] MEDS ORDERED: predniSONE 20 MG Tab PO ONE (08:41)
[2020-10-05 08:45] VITALS: BP 133/60; PULSE 59
== END 2020-10-05 09:01 | disposition home or self-care (01) ==
LOC: DL.ED 08:29
DX: N39.8 Other specified disorders of urinary system (principal); R31.0 Gross hematuria; E66.9 Obesity, unspecified; Z68.42 Body mass index [BMI] 45.0-49.9, adult; Z88.1 Allergy status to other antibiotic agents; Z91.030 Bee allergy status; Z88.6 Allergy status to analgesic agent; Z88.8 Allergy status to other drugs, medicaments and biological substances; Z88.5 Allergy status to narcotic agent; Z79.899 Other long term (current) drug therapy
CPT/HCPCS: 96372; 99283; A9270; J1170; J7512

== ENCOUNTER 2020-10-06 17:58 | Inpatient (IN) | payer MEDICAID ==
[2020-10-06] MEDS ORDERED: Ondansetron 4 MG/2 ML SDV IV ONE (18:11)
[2020-10-06] MEDS ORDERED: HYDROmorphone 1 MG/ML Syringe IVPUSH ONE ×2 (18:11→19:05)
[2020-10-06] MEDS ORDERED: Sodium Chloride 0.9% 1,000 ML IV ONE (18:11)
--- NOTE | 2020-10-06 18:19 | EDM.PDOC ---
ED HPI GENERAL MEDICAL PROBLEM - General Chief Complaint: Genitourinary Problem Stated Complaint: KIDNEYS Time Seen by Provider: 10/06/20 18:13 Source of Information: Reports: Patient, Family (mother), Old Records, RN, RN Notes Reviewed History Limitations: Reports: No Limitations - History of Present Illness INITIAL COMMENTS - FREE TEXT/NARRATIVE: Pt presents to ER from home by POV with c/o severe left flank pain and gross hematuria. Pt has Hx of "Loin Pain Hematuria Syndrome". He had a telemedicine visit regarding consideration for allograft kidney transplantation with doctors from [facility] yesterday, and has follow up there for further evaluation. Pt rates the pain /. Today the pain became so severe that he became pale, diaphoretic, and began vomiting. He reports gross hematuria. Denies fever, chills, diarrhea. Nothing aggravates or alleviates the pain. Duration: Chronic, Recurring Location: Reports: Other (Flank) Quality: Reports: Same as Previous Episode Severity: Severe Improves with: Reports: None Worsens with: Reports: None Associated Symptoms: Reports: No Other Symptoms Bilateral Flank Pain Score (Numeric/FACES): 10 - Related Data Allergies Allergy/AdvReac Type Severity Reaction Status Date / Time amoxicillin [Amoxicillin] Allergy Rash Verified 10/06/20 18:17 bee venom protein (honey bee) Allergy Cannot Verified 10/06/20 18:17 Remember ketorolac tromethamine Allergy Rash Verified 10/06/20 18:17 [From Toradol] metoclopramide [From Reglan] Allergy Agitation Verified 10/06/20 18:17 promethazine HCl Allergy Hallucinati Verified 10/06/20 18:17 [From Phenergan] ons tramadol HCl [From Ultram] Allergy Rash Verified 10/06/20 18:17 Home Meds: Home Meds Tamsulosin HCl [Flomax] 0.4 mg PO DAILY 05/30/20 [History] oxyCODONE HCl/Acetaminophen [Percocet 10-325 mg Tablet] 0.5 tab PO Q6H PRN 06/20/20 [History] Ondansetron [Zofran] 4 mg PO Q6H PRN 06/21/20 [History] Past Medical History - Past Health History Medical/Surgical History: Denies Medical/Surgical History HEENT History: Reports: None Cardiovascular History: Reports: None Respiratory History: Reports: None Gastrointestinal History: Reports: Gastritis, GERD, Other (See Below) Other Gastrointestinal History: gallbladder pain Genitourinary History: Reports: Renal Calculus, Other (See Below) 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 Musculoskeletal History: Reports: None Neurological History: Reports: None Psychiatric History: Reports: Addiction Endocrine/Metabolic History: Reports: Obesity/BMI 30+ Hematologic History: Reports: None Immunologic History: Reports: None Oncologic (Cancer) History: Reports: None Dermatologic History: Reports: None - Infectious Disease History Infectious Disease History: Reports: Chicken Pox, Novel Coronavirus - Past Surgical History Head Surgeries/Procedures: Reports: None HEENT Surgical History: Reports: None Cardiovascular Surgical History: Reports: None GI Surgical History: Reports: Appendectomy, Cholecystectomy Male Surgical History: Reports: Circumcision Other Male Surgeries/Procedures: Has had kidney biopsy Musculoskeletal Surgical History: Reports: Other (See Below) Other Musculoskeletal Surgeries/Procedures:: left arm Social & Family History - Family History Family Medical History: No Pertinent Family History - Caffeine Use Caffeine Use: Reports: Coffee, Soda Caffeine Use Comment: 32 oz daily - Living Situation & Occupation Living situation: Reports: Single, Alone Occupation: Employed ED ROS GENERAL - Review of Systems Review Of Systems: Comprehensive ROS is negative, except as noted in HPI. ED EXAM, RENAL/ - Physical Exam Exam: See Below Exam Limited By: No Limitations General Appearance: Alert, Mild Distress (Due to pain), Obese Eye Exam: Bilateral Eye: Normal Inspection (No scleral icterus) Nose: Normal Inspection, No Blood Throat/Mouth: Normal Lips, Normal Voice, No Airway Compromise Head: Atraumatic, Normocephalic Neck: Normal Inspection Respiratory/Chest: No Respiratory Distress, Lungs Clear, Normal Breath Sounds, No Accessory Muscle Use, Chest Non-Tender Cardiovascular: Regular Rate, Rhythm GI/Abdominal: Normal Bowel Sounds, Soft, Tender (LUQ/LLQ). No: Guarding, Rigid, Rebound (Male) Exam: Deferred Rectal (Males) Exam: Deferred Back Exam: CVA Tenderness (L). No: CVA Tenderness (R), Vertebral Tenderness Extremities: Normal Inspection Neurological: Alert, Oriented, No Motor/Sensory Deficits Psychiatric: Normal Mood Skin Exam: Warm, No Rash, Diaphoretic, Pallor Course - Vital Signs Last Recorded V/S: Last Vital Signs Temp 97 F 02/10/21 19:15 Pulse 77 10/06/20 19:15 Resp 19 10/06/20 19:15 BP 142/83 H 10/06/20 19:15 Pulse Ox 99 10/06/20 19:15 - Orders/Labs/Meds Orders: Active Orders 24 hr Category Date Time Status Peripheral IV Care [RC] . DIRECTED Care 10/06/20 18:11 Active DRUG SCREEN URINE BIORAD [URCHEM] Stat Lab 10/06/20 18:10 Ordered UA RFX MARGARITA AND CULT IF INDIC [URIN] Stat Lab 10/06/20 18:10 Ordered Sodium Chloride 0.9% [Saline Flush] Med 10/06/20 18:10 Active 10 ml FLUSH ASDIRECTED PRN Peripheral IV Insertion Adult [OM.PC] Stat Oth 10/06/20 18:10 Ordered Medication Orders Sodium Chloride (Saline Flush) 10 ml FLUSH ASDIRECTED PRN PRN Reason: Keep Vein Open Last Admin: 10/06/20 18:23 Dose: 10 ml Documented by: MOUNA Labs: Laboratory Tests 10/06/20 10/06/20 10/06/20 Range/Units 18:15 18:15 18:15 WBC 9.1 (5.0-10.0) 10^3/uL RBC 5.04 (4.6-6.2) 10^6/uL Hgb 14.9 (14.0-18.0) g/dL Hct 43.3 (40.0-54.0) % MCV 85.9 (80-100) fL MCH 29.6 (27.0-34.0) pg MCHC 34.4 (33.0-35.0) g/dL Plt Count 281 (150-450) 10^3/uL Neut % (Auto) 45.4 (42.2-75.2) % Lymph % (Auto) 45.9 (20.5-50.1) % [place] % (Auto) 6.4 (2-8) % Eos % (Auto) 2.0 (1.0-3.0) % Baso % (Auto) 0.3 (0.0-1.0) % PT 9.4 (9.0-12.0) SEC INR 1.0 (0.9-1.2) APTT 27.2 (22.0-34.0) SEC Sodium 140 (136-145) mmol/L Potassium 3.7 (3.5-5.1) mmol/L Chloride 103 (98-107) mmol/L Carbon Dioxide 28 (21-32) mmol/L Anion Gap 12.7 (7-13) mEq/L BUN 11 (7-18) mg/dL Creatinine 0.90 (0.70-1.30) mg/dL Est Cr Clr Drug Dosing 140.81 mL/min Estimated GFR (MDRD) > 60 BUN/Creatinine Ratio 12.2 (No establ ref range) Glucose 117 H (74-99) mg/dL Lactic Acid (0.4-2.0) mmol/L Calcium 8.3 L (8.5-10.1) mg/dL Total Bilirubin 0.4 (0.2-1.0) mg/dL AST 19 (15-37) U/L ALT 37 (16-63) U/L Alkaline Phosphatase 85 (46-116) U/L C-Reactive Protein 0.5 (0.0-0.9) mg/dL Total Protein 7.5 (6.4-8.2) g/dL Albumin 4.2 (3.4-5.0) g/dL Globulin 3.3 Albumin/Globulin Ratio 1.3 10/06/20 Range/Units 18:15 WBC (5.0-10.0) 10^3/uL RBC (4.6-6.2) 10^6/uL Hgb (14.0-18.0) g/dL Hct (40.0-54.0) % MCV (80-100) fL MCH (27.0-34.0) pg MCHC (33.0-35.0) g/dL Plt Count (150-450) 10^3/uL Neut % (Auto) (42.2-75.2) % Lymph % (Auto) (20.5-50.1) % [place] % (Auto) (2-8) % Eos % (Auto) (1.0-3.0) % Baso % (Auto) (0.0-1.0) % PT (9.0-12.0) SEC INR (0.9-1.2) APTT (22.0-34.0) SEC Sodium (136-145) mmol/L Potassium (3.5-5.1) mmol/L Chloride (98-107) mmol/L Carbon Dioxide (21-32) mmol/L Anion Gap (7-13) mEq/L BUN (7-18) mg/dL Creatinine (0.70-1.30) mg/dL Est Cr Clr Drug Dosing mL/min Estimated GFR (MDRD) BUN/Creatinine Ratio (No establ ref range) Glucose (74-99) mg/dL Lactic Acid 1.4 (0.4-2.0) mmol/L Calcium (8.5-10.1) mg/dL Total Bilirubin (0.2-1.0) mg/dL AST (15-37) U/L ALT (16-63) U/L Alkaline Phosphatase (46-116) U/L C-Reactive Protein (0.0-0.9) mg/dL Total Protein (6.4-8.2) g/dL Albumin (3.4-5.0) g/dL Globulin Albumin/Globulin Ratio Meds: Medications Generic Name Dose Route Start Last Admin Trade Name Chavo PRN Reason Stop Dose Admin Sodium Chloride 10 ml 10/06/20 18:10 10/06/20 18:23 Saline Flush FLUSH 10 ml ASDIRECTED PRN Administration Keep Vein Open Discontinued Medications Generic Name Dose Route Start Last Admin Trade Name Chavo PRN Reason Stop Dose Admin Hydromorphone HCl 1 mg 10/06/20 18:11 10/06/20 18:24 Dilaudid IVPUSH 10/06/20 18:12 1 mg ONETIME ONE Administration Hydromorphone HCl 1 mg 10/06/20 19:05 10/06/20 19:10 Dilaudid IVPUSH 10/06/20 19:06 1 mg ONETIME ONE Administration Sodium Chloride 1,000 mls @ 999 mls/hr 10/06/20 18:11 10/06/20 18:20 Normal Saline IV 10/06/20 19:11 999 mls/hr .BOLUS ONE Administration Ondansetron HCl 4 mg 10/06/20 18:11 10/06/20 18:22 Zofran IV 10/06/20 18:12 4 mg ONETIME ONE Administration - Re-Assessments/Exams Free Text/Narrative Re-Assessment/Exam: 10/06/20 19:05 Pt wishes to be transferred to [facility]. Dr. Witt wishes to consult with someone before accepting the pt. Awaiting call back. Care of pt transferred to Chris Cazares TECHNICAL SERVICE REPRESENTATIVE at 1900HR shift change. 10/06/20 19:17 Dr. Witt declines to accept the pt to [facility] and advises to admit the pt here in [place]. Dr. Martinez accepts the pt here. Departure - Departure Time of Disposition: 19:18 (admitted to Dr. Martinez) Disposition: Admitted As Inpatient 66 Condition: Fair Clinical Impression: Loin pain hematuria syndrome, Gross hematuria, History of Henoch-Schonlein pur len - Discharge Information *PRESCRIPTION DRUG MONITORING PROGRAM REVIEWED*: No *COPY OF PRESCRIPTION DRUG MONITORING REPORT IN PATIENT NICO: No Forms: ED Department Discharge Sepsis Event Note (ED) - Evaluation Sepsis Screening Result: No Definite Risk - Focused Exam Vital Signs: Vital Signs Temp Pulse Resp BP Pulse Ox 10/06/20 19:15 97 F 77 19 142/83 H 99 10/06/20 18:08 97.0 F 86 16 135/81 100 - My Orders Last 24 Hours: My Active Orders 10/06/20 18:10 DRUG SCREEN URINE BIORAD [URCHEM] Stat UA RFX MARGARITA AND CULT IF INDIC [URIN] Stat Sodium Chloride 0.9% [Saline Flush] 10 ml FLUSH ASDIRECTED PRN Peripheral IV Insertion Adult [OM.PC] Stat 10/06/20 18:11 Peripheral IV Care [RC] . DIRECTED - Assessment/Plan Last 24 Hours: My Active Orders 10/06/20 18:10 DRUG SCREEN URINE BIORAD [URCHEM] Stat UA RFX MARGARITA AND CULT IF INDIC [URIN] Stat Sodium Chloride 0.9% [Saline Flush] 10 ml FLUSH ASDIRECTED PRN Peripheral IV Insertion Adult [OM.PC] Stat 10/06/20 18:11 Peripheral IV Care [RC] . DIRECTED
[2020-10-06] MEDS: Sodium Chloride 0.9% 10 ML Syringe FLUSH PRN (18:23)
[2020-10-06 18:42] LABS: ANION GAP 12.7 mEq/L (7-13); CHLORIDE,CL 103 mmol/L (98-107); SODIUM,NA 140 mmol/L (136-145)
[2020-10-06 18:49] LABS: PTT,PARTIAL THROMBOPLSTIN TIME 27.2 SEC (22.0-34.0)
[2020-10-06] MEDS ORDERED: Naloxone 2 MG/2 ML Syringe IVPUSH PRN (20:20)
[2020-10-06] MEDS ORDERED: Zolpidem 5 MG Tab PO PRN (20:22)
[2020-10-06] MEDS ORDERED: Polyethylene Glycol 3350 Powder 17 GM Packet PO PRN (20:22)
[2020-10-06] MEDS ORDERED: Ondansetron 4 MG Tab.DIS PO PRN (20:22)
[2020-10-06] MEDS ORDERED: Ondansetron 4 MG/2 ML SDV IVPUSH PRN (20:22)
[2020-10-06] MEDS ORDERED: Acetaminophen 325 MG Tab PO PRN (20:22)
[2020-10-06] MEDS ORDERED: fentaNYL Citrate/PF 1,500 MCG/30 ML PCA Vial IV SCH (20:30)
[2020-10-06] MEDS ORDERED: fentaNYL Citrate/PF 1,500 MCG/30 ML PCA Vial ONE (20:36)
[2020-10-06] MEDS: NS + KCl 20mEq/L 1,000 ML IV SCH (20:53)
--- NOTE | 2020-10-06 20:54 | PCM.HP ---
H&P History of Present Illness - General Date of Service: 10/06/20 Admit Problem/Dx: Admission Diagnosis/Problem Admission Diagnosis/Problem Hematuria Source of Information: Patient, Provider, Other (notes from [facility], PDMP) - History of Present Illness Initial Comments - Free Text/Narative: 30-year-old with a history of obesity with recurrent episodes of flank pain with hematuria he was diagnosed with Loin pain hematuria syndrome. plan is renal autotransplant in [place]. The patient has frequent flareups of severe pain with associated hematuria. this results in frequent ER visits, last time was at ER on the and 24 of September And in [place] [facility] since. He was given Percocet 10/325 mg #24pills on [address] Villaseñor he is also taking marijuana The pain is severe associated with hematuria Got worse this Sunday, 2 days ago The oral medications are not controlling, came with 10 out of 10 pain to the emergency room. Transfer to [facility] was not accepted, suggestion was local admission for pain control and hydration I reviewed records, Dr. Saha his watcher lookout tower is recommending against use of steroids hydration, Flomax and pain control for flareups Losartan for prevention was suggested The patient feels this is his typical pain, corkscrew like pain in bilateral renal area and suprapubic pain. Hematorrhea. Some chills but no fever. Bilateral Flank Pain Score (Numeric/FACES): 10 - Related Data Allergies/Adverse Reactions: Allergies Allergy/AdvReac Type Severity Reaction Status Date / Time amoxicillin [Amoxicillin] Allergy Rash Verified 10/06/20 18:17 bee venom protein (honey bee) Allergy Cannot Verified 10/06/20 18:17 Remember ketorolac tromethamine Allergy Rash Verified 10/06/20 18:17 [From Toradol] metoclopramide [From Reglan] Allergy Agitation Verified 10/06/20 18:17 promethazine HCl Allergy Hallucinati Verified 10/06/20 18:17 [From Phenergan] ons tramadol HCl [From Ultram] Allergy Rash Verified 10/06/20 18:17 Home Medications: Home Meds Tamsulosin HCl [Flomax] 0.4 mg PO BID 05/30/20 [History] oxyCODONE HCl/Acetaminophen [Percocet 10-325 mg Tablet] 1 tab PO Q6H PRN 10/25/20 [History] Ondansetron [Zofran] 4 mg PO Q6H PRN 06/21/20 [History] Losartan [Cozaar] 25 mg PO DAILY 10/06/20 [History] predniSONE [Prednisone] 60 mg PO WITHBREAKFAST 10/06/20 [History] Past Medical History - Past Health History Medical/Surgical History: Denies Medical/Surgical History HEENT History: Reports: None Cardiovascular History: Reports: None Respiratory History: Reports: None Gastrointestinal History: Reports: Gastritis, GERD, Other (See Below) Other Gastrointestinal History: gallbladder pain Genitourinary History: Reports: Renal Calculus, Other (See Below) (Loin pain he maturia syndrome) 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 Musculoskeletal History: Reports: None, Other (See Below) Neurological History: Reports: None Psychiatric History: Reports: Addiction Endocrine/Metabolic History: Reports: Obesity/BMI 30+ Hematologic History: Reports: None Immunologic History: Reports: None, Other (See Below) Oncologic (Cancer) History: Reports: None Dermatologic History: Reports: None - Infectious Disease History Infectious Disease History: Reports: Chicken Pox, Novel Coronavirus - Past Surgical History Head Surgeries/Procedures: Reports: None HEENT Surgical History: Reports: None Cardiovascular Surgical History: Reports: None GI Surgical History: Reports: Appendectomy, Cholecystectomy Male Surgical History: Reports: Circumcision Other Male Surgeries/Procedures: Has had kidney biopsy Musculoskeletal Surgical History: Reports: Other (See Below) Other Musculoskeletal Surgeries/Procedures:: left arm Social & Family History - Family History Family Medical History: No Pertinent Family History - Tobacco Use Tobacco Use Status *Q: Never Tobacco User - Caffeine Use Caffeine Use: Reports: Coffee, Soda Caffeine Use Comment: 32 oz daily - Recreational Drug Use Recreational Drug Use: No - Living Situation & Occupation Living situation: Reports: Single, Alone Occupation: Employed H&P Review of Systems - Review of Systems: Review Of Systems: See Below General: Reports: Chills, Malaise. Denies: Fever Pulmonary: Denies: Shortness of Breath Cardiovascular: Denies: Chest Pain, Edema Gastrointestinal: Denies: Abdominal Pain Genitourinary: Reports: Hematuria Psychiatric: Denies: Confusion Neurological: Denies: Dizziness Exam - Exam Exam: See Below - Vital Signs Vital Signs: Last Vital Signs Temp 97.8 F 10/06/20 19:44 Pulse 73 10/06/20 19:44 Resp 20 10/06/20 19:44 BP 120/60 10/06/20 19:44 Pulse Ox 96 10/06/20 19:44 Weight: 242 lb 4.8 oz - Exam General: Alert, Oriented Neck: Supple Lungs: Clear to Auscultation, Normal Respiratory Effort Cardiovascular: Regular Rate, Regular Rhythm GI/Abdominal Exam: Normal Bowel Sounds, Soft, Non-Tender Extremities: No Pedal Edema Skin: Warm, Dry Neuro Extensive - Mental Status: Alert, Oriented x3, Other (appears in pain) Psychiatric: Alert, Normal Affect, Normal Mood - Patient Data Lab Results Last 24 hrs: Laboratory Results - last 24 hr 10/06/20 10/06/20 10/06/20 Range/Units 18:15 18:15 18:15 WBC 9.1 (5.0-10.0) 10^3/uL RBC 5.04 (4.6-6.2) 10^6/uL Hgb 14.9 (14.0-18.0) g/dL Hct 43.3 (40.0-54.0) % MCV 85.9 (80-100) fL MCH 29.6 (27.0-34.0) pg MCHC 34.4 (33.0-35.0) g/dL Plt Count 281 (150-450) 10^3/uL Neut % (Auto) 45.4 (42.2-75.2) % Lymph % (Auto) 45.9 (20.5-50.1) % Beauregard % (Auto) 6.4 (2-8) % Eos % (Auto) 2.0 (1.0-3.0) % Baso % (Auto) 0.3 (0.0-1.0) % PT 9.4 (9.0-12.0) SEC INR 1.0 (0.9-1.2) APTT 27.2 (22.0-34.0) SEC Sodium 140 (136-145) mmol/L Potassium 3.7 (3.5-5.1) mmol/L Chloride 103 (98-107) mmol/L Carbon Dioxide 28 (21-32) mmol/L Anion Gap 12.7 (7-13) mEq/L BUN 11 (7-18) mg/dL Creatinine 0.90 (0.70-1.30) mg/dL Est Cr Clr Drug Dosing 140.81 mL/min Estimated GFR (MDRD) > 60 BUN/Creatinine Ratio 12.2 (No establ ref range) Glucose 117 H (74-99) mg/dL Lactic Acid (0.4-2.0) mmol/L Calcium 8.3 L (8.5-10.1) mg/dL Total Bilirubin 0.4 (0.2-1.0) mg/dL AST 19 (15-37) U/L ALT 37 (16-63) U/L Alkaline Phosphatase 85 (46-116) U/L C-Reactive Protein 0.5 (0.0-0.9) mg/dL Total Protein 7.5 (6.4-8.2) g/dL Albumin 4.2 (3.4-5.0) g/dL Globulin 3.3 Albumin/Globulin Ratio 1.3 /06/16 Range/Units 18:15 WBC (5.0-10.0) 10^3/uL RBC (4.6-6.2) 10^6/uL Hgb (14.0-18.0) g/dL Hct (40.0-54.0) % MCV (80-100) fL MCH (27.0-34.0) pg MCHC (33.0-35.0) g/dL Plt Count (150-450) 10^3/uL Neut % (Auto) (42.2-75.2) % Lymph % (Auto) (20.5-50.1) % Beauregard % (Auto) (2-8) % Eos % (Auto) (1.0-3.0) % Baso % (Auto) (0.0-1.0) % PT (9.0-12.0) SEC INR (0.9-1.2) APTT (22.0-34.0) SEC Sodium (136-145) mmol/L Potassium (3.5-5.1) mmol/L Chloride (98-107) mmol/L Carbon Dioxide (21-32) mmol/L Anion Gap (7-13) mEq/L BUN (7-18) mg/dL Creatinine (0.70-1.30) mg/dL Est Cr Clr Drug Dosing mL/min Estimated GFR (MDRD) BUN/Creatinine Ratio (No establ ref range) Glucose (74-99) mg/dL Lactic Acid 1.4 (0.4-2.0) mmol/L Calcium (8.5-10.1) mg/dL Total Bilirubin (0.2-1.0) mg/dL AST (15-37) U/L ALT (16-63) U/L Alkaline Phosphatase (46-116) U/L C-Reactive Protein (0.0-0.9) mg/dL Total Protein (6.4-8.2) g/dL Albumin (3.4-5.0) g/dL Globulin Albumin/Globulin Ratio Result Diagrams: 10/06/20 18:15 10/06/20 18:15 *Q Meaningful Use (ADM) - VTE *Q VTE Anticoagulation Contraindications: Medical/Procedure Contrai - Problem List (1) Loin pain hematuria syndrome SNOMED Code(s): 30306263 ICD Code: M54.5 - LOW BACK PAIN; R31.9 - HEMATURIA, UNSPECIFIED Status: Acute Current Visit: Yes (2) Abdominal pain SNOMED Code(s): 63451486 ICD Code: R10.9 - UNSPECIFIED ABDOMINAL PAIN Status: Acute Current Visit: No Qualifiers: Abdominal location: right upper quadrant Qualified Code(s): R10.11 - Right upper quadrant pain (3) Bilateral flank pain SNOMED Code(s): 366583889 ICD Code: R10.9 - UNSPECIFIED ABDOMINAL PAIN Status: Acute Current Visit: No (4) Gross hematuria SNOMED Code(s): 067104781 ICD Code: R31.0 - GROSS HEMATURIA Status: Acute Current Visit: No (5) Hematuria syndrome SNOMED Code(s): 74323291 ICD Code: R31.9 - HEMATURIA, UNSPECIFIED Status: Acute Current Visit: No Onset Date: 03/25/15 Problem List Initiated/Reviewed/Updated: Yes Orders Last 24hrs: Active Orders 24 hr Category Date Time Status Patient Status [ADT] Routine ADT 10/06/20 20:22 Active Antiembolic Devices [RC] PER UNIT ROUTINE Care 10/06/20 20:24 Active Cardiac Monitoring [RC] . DIRECTED Care 10/06/20 20:20 Active Communication Order [RC] STAT Care 10/06/20 20:20 Active Notify Provider [RC] PRN Care 10/06/20 20:20 Active Oxygen Therapy [RC] PRN Care 10/06/20 20:22 Active Peripheral IV Care [RC] . DIRECTED Care 10/06/20 18:11 Active Pulse Oximetry [RC] CONTINUOUS Care 10/06/20 20:20 Active Up With Assistance [RC] ASDIRECTED Care 10/06/20 20:22 Active VTE/DVT Education [RC] PER UNIT ROUTINE Care 10/06/20 20:22 Active Vital Signs [RC] Q4H Care 10/06/20 20:22 Active Regular Diet [DIET] Diet 10/06/20 Breakfast Active BASIC METABOLIC PANEL,BMP [CHEM] AM Lab 10/07/20 05:11 Ordered CBC W/O DIFF,HEMOGRAM [HEME] AM Lab 10/07/20 05:11 Ordered DRUG SCREEN URINE BIORAD [URCHEM] Stat Lab 10/06/20 18:10 Ordered UA RFX MARGARITA AND CULT IF INDIC [URIN] Stat Lab 10/06/20 18:10 Ordered Acetaminophen [TylenoL] Med 10/06/20 20:22 Active 650 mg PO Q4H PRN Docusate Sodium [Colace] Med 10/06/20 21:00 Active 100 mg PO BID Losartan [Cozaar] Med 10/07/20 09:00 Active 25 mg PO DAILY NS + KCl 20mEq/L [Normal Saline with 20 mEq KCl] 1,000 Med 10/06/20 20:30 Active ml IV ASDIRECTED Naloxone [Narcan] Med 10/06/20 20:20 Active 0.4 mg IVPUSH Q2M PRN Ondansetron [Zofran ODT] Med 10/06/20 20:22 Active 4 mg PO Q6H PRN Ondansetron [Zofran] Med 10/06/20 20:22 Active 4 mg IVPUSH Q4H PRN Sodium Chloride 0.9% [Saline Flush] Med 10/06/20 18:10 Active 10 ml FLUSH ASDIRECTED PRN Tamsulosin [Flomax] Med 10/06/20 21:00 Active 0.4 mg PO BID Zolpidem [Ambien] Med 10/06/20 20:22 Active 5 mg PO BEDTIME PRN fentaNYL Citrate/PF [Fentanyl 1,500 MCG/30 ML-WATER] Med 10/06/20 20:30 Active See Protocol IV ASDIRECTED polyethylene glycoL 3350 [MiraLAX] Med 10/06/20 20:22 Active 17 gm PO DAILY PRN Anticoagulation Contraindications VTE [AST] Per Unit Oth 10/06/20 20:22 Ordered Routine Antiembolic Hose [OM.PC] Per Unit Routine Oth 10/06/20 20:23 Ordered Medication Discontinuation Instructions [OM.PC] Stat Oth 10/06/20 20:20 Ordered Peripheral IV Insertion Adult [OM.PC] Stat Oth 10/06/20 18:10 Ordered Resuscitation Status Routine Resus Stat 10/06/20 20:22 Ordered Medication Orders Acetaminophen (Tylenol) 650 mg PO Q4H PRN PRN Reason: Pain (Mild 1-3)/fever Docusate Sodium (Colace) 100 mg PO BID BRITTANY Fentanyl Citrate (Fentanyl 1,500 Mcg/30 Ml-Water) 0 mcg IV ASDIRECTED BRITTANY; P rotocol Potassium Chloride/Sodium Chloride (Normal Saline With 20 Meq Kcl) 1,000 mls @ 150 mls/hr IV ASDIRECTED BRITTANY Losartan Potassium (Cozaar) 25 mg PO DAILY BRITTANY Naloxone HCl (Narcan) 0.4 mg IVPUSH Q2M PRN PRN Reason: respiratory distress Ondansetron HCl (Zofran Odt) 4 mg PO Q6H PRN PRN Reason: Nausea Ondansetron HCl (Zofran) 4 mg IVPUSH Q4H PRN PRN Reason: Nausea/Vomiting Polyethylene Glycol (Miralax) 17 gm PO DAILY PRN PRN Reason: Constipation Sodium Chloride (Saline Flush) 10 ml FLUSH ASDIRECTED PRN PRN Reason: Keep Vein Open Last Admin: 10/06/20 18:23 Dose: 10 ml Documented by: MOUNA Tamsulosin HCl (Flomax) 0.4 mg PO BID BRITTANY Zolpidem Tartrate (Ambien) 5 mg PO BEDTIME PRN PRN Reason: Sleep Assessment/Plan Comment:: 30-year-old with recurrent flank pain with hematuria. Renal biopsy diagnosed Loin pain, hematuria syndrome The patient is being evaluated and scheduled for renal autotransplant. For acute pain exacerbation the patient will be admitted Requiring frequent IV doses of pain medication Will start on fentanyl [employer] Hydrate well Continue Flomax per nephrology no use of steroids monitor for blood clots and urinary retention For prevention continue losartan I have reviewed the [facility] narcotic records Last failure and prescription date was 10/05/[address] Villaseñor give the patient Percocet 10/325 mg #24 pills DVT prophylaxis will be with GINA augustin Avoid chemical prophylaxis with the hematuria
[2020-10-06] MEDS ORDERED: LORazepam 1 MG Tab PO PRN (21:00)
[2020-10-06] MEDS: Tamsulosin 0.4 MG Cap.ER PO SCH (21:22)
[2020-10-06] MEDS: Docusate Sodium 100 MG Cap PO SCH (21:43)
[2020-10-07] MEDS ORDERED: HYDROmorphone 1 MG/ML Syringe IVPUSH PRN ×3 (00:18→01:16)
[2020-10-07] MEDS ORDERED: HYDROmorphone 1 MG/ML Syringe IVPUSH ONE (00:46)
[2020-10-07] MEDS: LORazepam 1 MG Tab PO PRN ×2 (02:30→06:29)
[2020-10-07] MEDS: HYDROmorphone 1 MG/ML Syringe IVPUSH PRN ×11 (02:31→23:38)
[2020-10-07] MEDS: NS + KCl 20mEq/L 1,000 ML IV SCH ×3 (04:38→23:43)
[2020-10-07 06:38] LABS: ANION GAP 8.9 mEq/L (7-13); CHLORIDE,CL 103 mmol/L (98-107); SODIUM,NA 139 mmol/L (136-145)
[2020-10-07] MEDS ORDERED: predniSONE 20 MG Tab PO SCH (08:00)
[2020-10-07] MEDS: Sodium Chloride 0.9% 10 ML Syringe FLUSH PRN ×6 (08:39→21:02)
[2020-10-07] MEDS: Tamsulosin 0.4 MG Cap.ER PO SCH ×2 (08:39→20:27)
[2020-10-07] MEDS: Losartan 25 MG Tab PO SCH (08:39)
[2020-10-07] MEDS: Docusate Sodium 100 MG Cap PO SCH ×2 (08:39→20:26)
--- NOTE | 2020-10-07 12:05 | PCM.PN ---
- General Info Date of Service: 10/07/20 Admission Dx/Problem (Free Text): Admission Diagnosis/Problem Admission Diagnosis/Problem Hematuria Subjective Update: the patient says he continues to have severe 10 out of 10 pain. Overnight he tried fentanyl [employer] which was not effective for the patient Transitioned to IV Dilaudid 1 mg every 4 hours as needed, which was not effective according to the patient Transitioned to IV Dilaudid 1 mg every 2 hours as needed we will also used Ativan and Ambien during the night for anxiety and for sleep The patient continues to complain of severe pain. history is only 2 mg or 3 mg of Dilaudid IV was helping in the past his upset and he says his pain is not well controlled, family at bedside complaining of the same Functional Status: Reports: Urinating. Denies: Pain Controlled, Ambulating - Review of Systems General: Denies: Fever, Weakness Pulmonary: Denies: Shortness of Breath Cardiovascular: Denies: Chest Pain, Edema Genitourinary: Reports: Hematuria Musculoskeletal: Denies: Neck Pain Neurological: Denies: Confusion - Patient Data Vitals - Most Recent: Last Vital Signs Temp 98.4 F 10/07/20 07:41 Pulse 65 10/07/20 07:41 Resp 17 10/07/20 07:41 BP 138/64 10/07/20 08:39 Pulse Ox 97 10/07/20 07:41 Weight - Most Recent: 245 lb 9.6 oz I&O - Last 24 Hours: Intake & Output 10/06/20 10/07/20 10/07/20 22:59 06:59 14:59 Intake Total 511 102 8293 Balance 544 885 1060 Lab Results Last 24 Hours: Laboratory Results - last 24 hr 10/06/20 10/06/20 10/06/20 Range/Units 09:32 18:15 18:15 WBC 9.1 (5.0-10.0) 10^3/uL RBC 5.04 (4.6-6.2) 10^6/uL Hgb 14.9 (14.0-18.0) g/dL Hct 43.3 (40.0-54.0) % MCV 85.9 (80-100) fL MCH 29.6 (27.0-34.0) pg MCHC 34.4 (33.0-35.0) g/dL Plt Count 281 (150-450) 10^3/uL Neut % (Auto) 45.4 (42.2-75.2) % Lymph % (Auto) 45.9 (20.5-50.1) % [place] % (Auto) 6.4 (2-8) % Eos % (Auto) 2.0 (1.0-3.0) % Baso % (Auto) 0.3 (0.0-1.0) % PT 9.4 (9.0-12.0) SEC INR 1.0 (0.9-1.2) APTT 27.2 (22.0-34.0) SEC Sodium (136-145) mmol/L Potassium (3.5-5.1) mmol/L Chloride (98-107) mmol/L Carbon Dioxide (21-32) mmol/L Anion Gap (7-13) mEq/L BUN (7-18) mg/dL Creatinine (0.70-1.30) mg/dL Est Cr Clr Drug Dosing mL/min Estimated GFR (MDRD) BUN/Creatinine Ratio (No establ ref range) Glucose (74-99) mg/dL Lactic Acid (0.4-2.0) mmol/L Calcium (8.5-10.1) mg/dL Total Bilirubin (0.2-1.0) mg/dL AST (15-37) U/L ALT (16-63) U/L Alkaline Phosphatase (46-116) U/L C-Reactive Protein (0.0-0.9) mg/dL Total Protein (6.4-8.2) g/dL Albumin (3.4-5.0) g/dL Globulin Albumin/Globulin Ratio Urine Color [place] (YELLOW) Urine Appearance Cloudy (CLEAR) Urine pH 7.0 (5.0-9.0) Ur Specific [place] 1.025 (1.005-1.030) Urine Protein Negative (NEGATIVE) Urine Glucose (UA) Negative (NEGATIVE) Urine Ketones Negative (NEGATIVE) Urine Occult Blood Large H (NEGATIVE) Urine Nitrite Negative (NEGATIVE) Urine Bilirubin Negative (NEGATIVE) Urine Urobilinogen 0.2 (0.2-1.0) mg/dL Ur Leukocyte Esterase Negative (NEGATIVE) Urine RBC >100 H /HPF Urine WBC Not seen (0-5/HPF) /HPF Ur Epithelial Cells Few (NOT SEEN) /HPF Urine Bacteria Not seen (0-FEW/HPF) /HPF Urine Mucus Not seen (NOT SEEN) /LPF Urine Opiates Screen (NEGATIVE) Ur Oxycodone Screen (NEGATIVE) Urine Methadone Screen (NEGATIVE) Ur Barbiturates Screen (NEGATIVE) U Tricyclic Antidepress (NEGATIVE) Ur Phencyclidine Scrn (NEGATIVE) Ur Amphetamine Screen (NEGATIVE) U Methamphetamines Scrn (NEGATIVE) Urine MDMA Screen (NEGATIVE) U Benzodiazepines Scrn (NEGATIVE) Urine Cocaine Screen (NEGATIVE) U Marijuana (THC) Screen (NEGATIVE) 10/06/20 10/06/20 10/07/20 Range/Units 18:15 18:15 06:17 WBC 7.5 (5.0-10.0) 10^3/uL RBC 4.68 (4.6-6.2) 10^6/uL Hgb 13.9 L (14.0-18.0) g/dL Hct 40.8 (40.0-54.0) % MCV 87.2 (80-100) fL MCH 29.7 (27.0-34.0) pg MCHC 34.1 (33.0-35.0) g/dL Plt Count 253 (150-450) 10^3/uL Neut % (Auto) (42.2-75.2) % Lymph % (Auto) (20.5-50.1) % [place] % (Auto) (2-8) % Eos % (Auto) (1.0-3.0) % Baso % (Auto) (0.0-1.0) % PT (9.0-12.0) SEC INR (0.9-1.2) APTT (22.0-34.0) SEC Sodium 140 (136-145) mmol/L Potassium 3.7 (3.5-5.1) mmol/L Chloride 103 (98-107) mmol/L Carbon Dioxide 28 (21-32) mmol/L Anion Gap 12.7 (7-13) mEq/L BUN 11 (7-18) mg/dL Creatinine 0.90 (0.70-1.30) mg/dL Est Cr Clr Drug Dosing 140.81 mL/min Estimated GFR (MDRD) > 60 BUN/Creatinine Ratio 12.2 (No establ ref range) Glucose 117 H (74-99) mg/dL Lactic Acid 1.4 (0.4-2.0) mmol/L Calcium 8.3 L (8.5-10.1) mg/dL Total Bilirubin 0.4 (0.2-1.0) mg/dL AST 19 (15-37) U/L ALT 37 (16-63) U/L Alkaline Phosphatase 85 (46-116) U/L C-Reactive Protein 0.5 (0.0-0.9) mg/dL Total Protein 7.5 (6.4-8.2) g/dL Albumin 4.2 (3.4-5.0) g/dL Globulin 3.3 Albumin/Globulin Ratio 1.3 Urine Color (YELLOW) Urine Appearance (CLEAR) Urine pH (5.0-9.0) Ur Specific [place] (1.005-1.030) Urine Protein (NEGATIVE) Urine Glucose (UA) (NEGATIVE) Urine Ketones (NEGATIVE) Urine Occult Blood (NEGATIVE) Urine Nitrite (NEGATIVE) Urine Bilirubin (NEGATIVE) Urine Urobilinogen (0.2-1.0) mg/dL Ur Leukocyte Esterase (NEGATIVE) Urine RBC /HPF Urine WBC (0-5/HPF) /HPF Ur Epithelial Cells (NOT SEEN) /HPF Urine Bacteria (0-FEW/HPF) /HPF Urine Mucus (NOT SEEN) /LPF Urine Opiates Screen (NEGATIVE) Ur Oxycodone Screen (NEGATIVE) Urine Methadone Screen (NEGATIVE) Ur Barbiturates Screen (NEGATIVE) U Tricyclic Antidepress (NEGATIVE) Ur Phencyclidine Scrn (NEGATIVE) Ur Amphetamine Screen (NEGATIVE) U Methamphetamines Scrn (NEGATIVE) Urine MDMA Screen (NEGATIVE) U Benzodiazepines Scrn (NEGATIVE) Urine Cocaine Screen (NEGATIVE) U Marijuana (THC) Screen (NEGATIVE) 10/07/20 10/07/20 Range/Units 06:17 09:32 WBC (5.0-10.0) 10^3/uL RBC (4.6-6.2) 10^6/uL Hgb (14.0-18.0) g/dL Hct (40.0-54.0) % MCV (80-100) fL MCH (27.0-34.0) pg MCHC (33.0-35.0) g/dL Plt Count (150-450) 10^3/uL Neut % (Auto) (42.2-75.2) % Lymph % (Auto) (20.5-50.1) % [place] % (Auto) (2-8) % Eos % (Auto) (1.0-3.0) % Baso % (Auto) (0.0-1.0) % PT (9.0-12.0) SEC INR (0.9-1.2) APTT (22.0-34.0) SEC Sodium 139 (136-145) mmol/L Potassium 3.9 (3.5-5.1) mmol/L Chloride 103 (98-107) mmol/L Carbon Dioxide 31 (21-32) mmol/L Anion Gap 8.9 (7-13) mEq/L BUN 11 (7-18) mg/dL Creatinine 0.85 (0.70-1.30) mg/dL Est Cr Clr Drug Dosing 149.09 mL/min Estimated GFR (MDRD) > 60 BUN/Creatinine Ratio (No establ ref range) Glucose 83 (74-99) mg/dL Lactic Acid (0.4-2.0) mmol/L Calcium 7.8 L (8.5-10.1) mg/dL Total Bilirubin (0.2-1.0) mg/dL AST (15-37) U/L ALT (16-63) U/L Alkaline Phosphatase (46-116) U/L C-Reactive Protein (0.0-0.9) mg/dL Total Protein (6.4-8.2) g/dL Albumin (3.4-5.0) g/dL Globulin Albumin/Globulin Ratio Urine Color (YELLOW) Urine Appearance (CLEAR) Urine pH (5.0-9.0) Ur Specific [place] (1.005-1.030) Urine Protein (NEGATIVE) Urine Glucose (UA) (NEGATIVE) Urine Ketones (NEGATIVE) Urine Occult Blood (NEGATIVE) Urine Nitrite (NEGATIVE) Urine Bilirubin (NEGATIVE) Urine Urobilinogen (0.2-1.0) mg/dL Ur Leukocyte Esterase (NEGATIVE) Urine RBC /HPF Urine WBC (0-5/HPF) /HPF Ur Epithelial Cells (NOT SEEN) /HPF Urine Bacteria (0-FEW/HPF) /HPF Urine Mucus (NOT SEEN) /LPF Urine Opiates Screen Positive H (NEGATIVE) Ur Oxycodone Screen Positive H (NEGATIVE) Urine Methadone Screen Negative (NEGATIVE) Ur Barbiturates Screen Negative (NEGATIVE) U Tricyclic Antidepress Negative (NEGATIVE) Ur Phencyclidine Scrn Negative (NEGATIVE) Ur Amphetamine Screen Negative (NEGATIVE) U Methamphetamines Scrn Negative (NEGATIVE) Urine MDMA Screen Negative (NEGATIVE) U Benzodiazepines Scrn Positive H (NEGATIVE) Urine Cocaine Screen Negative (NEGATIVE) U Marijuana (THC) Screen Positive H (NEGATIVE) Med Orders - Current: Current Medications Acetaminophen (Tylenol) 650 mg PO Q4H PRN PRN Reason: Pain (Mild 1-3)/fever Docusate Sodium (Colace) 100 mg PO BID [facility] Last Admin: 10/07/20 08:39 Dose: Not Given Documented by: Hydromorphone HCl (Dilaudid) 1.5 mg IVPUSH Q2H PRN PRN Reason: severe pain Potassium Chloride/Sodium Chloride (Normal Saline With 20 Meq Kcl) 1,000 mls @ 150 mls/hr IV ASDIRECTED [facility] Last Infusion: 10/07/20 11:28 Dose: Infused Documented by: Lorazepam (Ativan) 1 mg PO Q4H PRN PRN Reason: Anxiety Last Admin: 10/07/20 06:29 Dose: 1 mg Documented by: Losartan Potassium (Cozaar) 25 mg PO DAILY [facility] Last Admin: 10/07/20 08:39 Dose: 25 mg Documented by: Naloxone HCl (Narcan) 0.4 mg IVPUSH Q2M PRN PRN Reason: respiratory distress Ondansetron HCl (Zofran Odt) 4 mg PO Q6H PRN PRN Reason: Nausea Ondansetron HCl (Zofran) 4 mg IVPUSH Q4H PRN PRN Reason: Nausea/Vomiting Polyethylene Glycol (Miralax) 17 gm PO DAILY PRN PRN Reason: Constipation Sodium Chloride (Saline Flush) 10 ml FLUSH ASDIRECTED PRN PRN Reason: Keep Vein Open Last Admin: 10/07/20 10:28 Dose: 10 ml Documented by: Tamsulosin HCl (Flomax) 0.4 mg PO BID [facility] Last Admin: 10/07/20 08:39 Dose: 0.4 mg Documented by: Zolpidem Tartrate (Ambien) 5 mg PO BEDTIME PRN PRN Reason: Sleep Last Admin: 10/06/20 21:23 Dose: 5 mg Documented by: Discontinued Medications Fentanyl Citrate (Fentanyl 1,500 Mcg/30 Ml-Water) 0 mcg IV ASDIRECTED [facility]; Protocol Last Admin: 10/06/20 20:50 Dose: 1,500 mcg Documented by: Fentanyl Citrate (Fentanyl 1,500 Mcg/30 Ml-Water) Confirm Administered Dose 1,500 mcg .ROUTE .STK-MED ONE Stop: 10/07/20 00:18 Hydromorphone HCl (Dilaudid) 1 mg IVPUSH ONETIME ONE Stop: 10/06/20 18:12 Last Admin: 10/06/20 18:24 Dose: 1 mg Documented by: Hydromorphone HCl (Dilaudid) 1 mg IVPUSH ONETIME ONE Stop: 10/06/20 19:06 Last Admin: 10/06/20 19:10 Dose: 1 mg Documented by: Hydromorphone HCl (Dilaudid) 1 mg IVPUSH Q6H PRN PRN Reason: Pain (severe 7-10) Last Admin: 10/07/20 00:30 Dose: 1 mg Documented by: Hydromorphone HCl (Dilaudid) 1 mg IVPUSH ONETIME ONE Stop: 10/07/20 00:47 Last Admin: 10/07/20 04:43 Dose: Not Given Documented by: Hydromorphone HCl (Dilaudid) 2 mg IVPUSH Q6H PRN PRN Reason: Pain (severe 7-10) Hydromorphone HCl (Dilaudid) 1 mg IVPUSH Q4H PRN PRN Reason: Pain (severe 7-10) Hydromorphone HCl (Dilaudid) 1 mg IVPUSH Q2H PRN PRN Reason: Anxiety Last Admin: 10/07/20 10:27 Dose: 1 mg Documented by: Sodium Chloride (Normal Saline) 1,000 mls @ 999 mls/hr IV .BOLUS ONE Stop: 10/06/20 19:11 Last Admin: 10/06/20 18:20 Dose: 999 mls/hr Documented by: Lorazepam (Ativan) 1 mg PO Q6H PRN PRN Reason: Anxiety Last Admin: 10/06/20 21:22 Dose: 1 mg Documented by: Ondansetron HCl (Zofran) 4 mg IV ONETIME ONE Stop: 10/06/20 18:12 Last Admin: 10/06/20 18:22 Dose: 4 mg Documented by: Prednisone (Prednisone) 60 mg PO WITHBREAKFAST [facility] Stop: 10/10/20 08:01 - Exam General: Alert, Oriented Lungs: Other (normal respiratory rate) Extremities: No Pedal Edema Skin: Warm, Dry Psy/Mental Status: Alert, Anxious. No: Hallucinations Sepsis Event Note - Evaluation Sepsis Screening Result: No Definite Risk - Focused Exam Vital Signs: Vital Signs Temp Pulse Resp BP BP BP Pulse Ox 10/07/20 08:39 138/64 10/07/20 07:41 98.4 F 65 17 138/64 97 10/07/20 04:00 98.8 F 79 16 130/70 97 10/07/20 02:56 96 - Problem List & Annotations (1) Loin pain hematuria syndrome SNOMED Code(s): 13140529 Code(s): M54.5 - LOW BACK PAIN; R31.9 - HEMATURIA, UNSPECIFIED Status: Acute Current Visit: Yes (2) Bilateral flank pain SNOMED Code(s): 892852126 Code(s): R10.9 - UNSPECIFIED ABDOMINAL PAIN Status: Acute Current Visit: No (3) Gross hematuria SNOMED Code(s): 923744075 Code(s): R31.0 - GROSS HEMATURIA Status: Acute Current Visit: No - Problem List Review Problem List Initiated/Reviewed/Updated: Yes - My Orders Last 24 Hours: My Active Orders 10/06/20 20:20 Cardiac Monitoring [RC] 08,20 Communication Order [RC] STAT Notify Provider [RC] PRN Pulse Oximetry [RC] CONTINUOUS Naloxone [Narcan] 0.4 mg IVPUSH Q2M PRN Medication Discontinuation Instructions [OM.PC] Stat 10/06/20 20:22 Patient Status [ADT] Routine Oxygen Therapy [RC] PRN Up With Assistance [RC] ASDIRECTED VTE/DVT Education [RC] PER UNIT ROUTINE Vital Signs [RC] 20,00,04,08,12,16 Acetaminophen [TylenoL] 650 mg PO Q4H PRN Ondansetron [Zofran ODT] 4 mg PO Q6H PRN Ondansetron [Zofran] 4 mg IVPUSH Q4H PRN Zolpidem [Ambien] 5 mg PO BEDTIME PRN polyethylene glycoL 3350 [MiraLAX] 17 gm PO DAILY PRN Anticoagulation Contraindications VTE [AST] Per Unit Routine Resuscitation Status Routine 10/06/20 20:23 Antiembolic Hose [OM.PC] Per Unit Routine 10/06/20 20:24 Antiembolic Devices [RC] PER UNIT ROUTINE 10/06/20 20:30 NS + KCl 20mEq/L [Normal Saline with 20 mEq KCl] 1,000 ml IV ASDIRECTED 10/06/20 21:00 Docusate Sodium [Colace] 100 mg PO BID Tamsulosin [Flomax] 0.4 mg PO BID 10/07/20 02:16 LORazepam [Ativan] 1 mg PO Q4H PRN 10/07/20 09:00 Losartan [Cozaar] 25 mg PO DAILY 10/07/20 11:53 HYDROmorphone [Dilaudid] 1.5 mg IVPUSH Q2H PRN 10/08/20 05:15 BASIC METABOLIC PANEL,BMP [CHEM] AM CBC WITH AUTO DIFF [HEME] AM - Plan Plan:: 30-year-old with recurrent flank pain with hematuria. Renal biopsy diagnosed Loin pain, hematuria syndrome The patient is being evaluated and scheduled for renal autotransplant. per patient pain control is not good We discussed that I do believe he has a painful condition nevertheless he has been getting large amount of IV narcotics He certainly has a large body mass. He has been on narcotics on and off as well and most likely developed significant tolerance. I reviewed prior ER visits. The patient says his pain contract was discontinued with Dr. Faria because he did not go for a pill count 1 time. There is an ER visit on 15 September when he said he has been taking oxycodone nevertheless his drug screen was negative. It is not a clear situation, I do believe the patient has a significant disease that is a painful condition, on the other hand I do think it is acceptable to his benefit to limit the amount of narcotics he is exposed to. We discussed with the patient to establish new primary care and pain management providers. I also understand that alone is not an easy task. I will increase hydrocodone to 1.5 mg q2h prn Hydrate well Continue Flomax per nephrology no use of steroids monitor for blood clots and urinary retention For prevention continue losartan I have reviewed the [facility] narcotic records Last failure and prescription date was 10/05/[address] Villaseñor give the patient Percocet 10/325 mg #24 pills DVT prophylaxis will be with [facility]INA augustin Avoid chemical prophylaxis with the hematuria time spent with patient, discussion with nursing was more than 25 min
[2020-10-07] MEDS ORDERED: HYDROmorphone 0.5 MG/0.5 ML Syringe IVPUSH ONE (21:15)
[2020-10-08] MEDS: HYDROmorphone 1 MG/ML Syringe IVPUSH PRN ×4 (02:39→10:12)
[2020-10-08] MEDS: NS + KCl 20mEq/L 1,000 ML IV SCH (06:03)
[2020-10-08 06:52] LABS: ANION GAP 13.2 mEq/L (7-13); CHLORIDE,CL 103 mmol/L (98-107); SODIUM,NA 140 mmol/L (136-145)
[2020-10-08] MEDS: Losartan 25 MG Tab PO SCH (08:00)
[2020-10-08] MEDS: Tamsulosin 0.4 MG Cap.ER PO SCH (08:00)
[2020-10-08] MEDS: Docusate Sodium 100 MG Cap PO SCH (08:00)
[2020-10-08 08:01] VITALS: BP 114/71
[2020-10-08 08:23] VITALS: PULSE 65
[2020-10-08] MEDS ORDERED: oxyCODONE 5 MG Tab PO PRN ×2 (10:30→10:34)
[2020-10-08] MEDS ORDERED: HYDROmorphone 1 MG/ML Syringe IVPUSH PRN (10:34)
--- NOTE | 2020-10-08 10:43 | PCM.PN ---
- General Info Date of Service: 10/08/20 Admission Dx/Problem (Free Text): Admission Diagnosis/Problem Admission Diagnosis/Problem Hematuria Subjective Update: met with patient yesterday around 10 pm I was called that he wants to be discharged. When I arrived he was with visitor he said he does not want to be discharged. he said pain is unchanged, still severe, no change in location or quality he was alert and oriented, not lethargic we agreed to increase dilaudid IV to 2 mg q2h prn later he stod up and was able to walk to the front desk admin to get a complaint form, he said he wanted to call the police because he wants to file a complaints against the charge nurse. this morning he says he continues to have severe 8 out of 10 pain. the pain is unchanged in the b/l flank areas and suprapubic, associated with hematuria no fever d/w nurses - no new complaint the nurses felt unsafe with him - police was called yesterday Functional Status: Reports: Ambulating - Review of Systems General: Denies: Fever Pulmonary: Denies: Shortness of Breath Cardiovascular: Denies: Chest Pain, Edema Gastrointestinal: Reports: Abdominal Pain (flank and suprapubic) Genitourinary: Denies: Retention Neurological: Denies: Confusion Psychiatric: Reports: Mood Lability - Patient Data Vitals - Most Recent: Last Vital Signs Temp 98.4 F 10/08/20 08:00 Pulse 65 10/08/20 08:00 Resp 18 10/08/20 08:00 BP 114/71 10/08/20 08:00 Pulse Ox 99 10/08/20 08:00 Weight - Most Recent: 245 lb 9.6 oz I&O - Last 24 Hours: Intake & Output 10/07/20 10/08/20 10/08/20 22:59 06:59 14:59 Intake Total 60 100 Balance 60 100 Lab Results Last 24 Hours: Laboratory Results - last 24 hr 10/08/20 10/08/20 Range/Units 06:06 06:06 WBC 8.5 (5.0-10.0) 10^3/uL RBC 4.95 (4.6-6.2) 10^6/uL Hgb 14.7 (14.0-18.0) g/dL Hct 42.5 (40.0-54.0) % MCV 85.9 (80-100) fL MCH 29.7 (27.0-34.0) pg MCHC 34.6 (33.0-35.0) g/dL Plt Count 267 (150-450) 10^3/uL Neut % (Auto) 58.9 (42.2-75.2) % Lymph % (Auto) 31.6 (20.5-50.1) % [place] % (Auto) 6.6 (2-8) % Eos % (Auto) 2.5 (1.0-3.0) % Baso % (Auto) 0.4 (0.0-1.0) % Sodium 140 (136-145) mmol/L Potassium 4.2 (3.5-5.1) mmol/L Chloride 103 (98-107) mmol/L Carbon Dioxide 28 (21-32) mmol/L Anion Gap 13.2 H (7-13) mEq/L BUN 10 (7-18) mg/dL Creatinine 0.91 (0.70-1.30) mg/dL Est Cr Clr Drug Dosing 139.26 mL/min Estimated GFR (MDRD) > 60 Glucose 89 (74-99) mg/dL Calcium 8.4 L (8.5-10.1) mg/dL Med Orders - Current: Current Medications Acetaminophen (Tylenol) 650 mg PO Q4H PRN PRN Reason: Pain (Mild 1-3)/fever Docusate Sodium (Colace) 100 mg PO BID [facility] Last Admin: 10/08/20 08:00 Dose: 100 mg Documented by: Hydromorphone HCl (Dilaudid) 2 mg IVPUSH Q4H PRN PRN Reason: brkthrough pain if PO not wrk Potassium Chloride/Sodium Chloride (Normal Saline With 20 Meq Kcl) 1,000 mls @ 150 mls/hr IV ASDIRECTED [facility] Last Admin: 10/08/20 06:03 Dose: 150 mls/hr Documented by: Lorazepam (Ativan) 1 mg PO Q4H PRN PRN Reason: Anxiety Last Admin: 10/07/20 06:29 Dose: 1 mg Documented by: Losartan Potassium (Cozaar) 25 mg PO DAILY [facility] Last Admin: 10/08/20 08:00 Dose: 25 mg Documented by: Naloxone HCl (Narcan) 0.4 mg IVPUSH Q2M PRN PRN Reason: respiratory distress Ondansetron HCl (Zofran Odt) 4 mg PO Q6H PRN PRN Reason: Nausea Last Admin: 10/07/20 20:27 Dose: 4 mg Documented by: Ondansetron HCl (Zofran) 4 mg IVPUSH Q4H PRN PRN Reason: Nausea/Vomiting Oxycodone HCl (Oxycodone) 5 mg PO Q4H PRN PRN Reason: mod pain Oxycodone HCl (Oxycodone) 10 mg PO Q4H PRN PRN Reason: severe pain Polyethylene Glycol (Miralax) 17 gm PO DAILY PRN PRN Reason: Constipation Sodium Chloride (Saline Flush) 10 ml FLUSH ASDIRECTED PRN PRN Reason: Keep Vein Open Last Admin: 10/07/20 21:02 Dose: 10 ml Documented by: Tamsulosin HCl (Flomax) 0.4 mg PO BID [facility] Last Admin: 10/08/20 08:00 Dose: 0.4 mg Documented by: Zolpidem Tartrate (Ambien) 5 mg PO BEDTIME PRN PRN Reason: Sleep Last Admin: 10/06/20 21:23 Dose: 5 mg Documented by: Discontinued Medications Fentanyl Citrate (Fentanyl 1,500 Mcg/30 Ml-Water) 0 mcg IV ASDIRECTED [facility]; Protocol Last Admin: 10/06/20 20:50 Dose: 1,500 mcg Documented by: Fentanyl Citrate (Fentanyl 1,500 Mcg/30 Ml-Water) Confirm Administered Dose 1,500 mcg .ROUTE .STK-MED ONE Stop: 10/07/20 00:18 Hydromorphone HCl (Dilaudid) 1 mg IVPUSH ONETIME ONE Stop: 10/06/20 18:12 Last Admin: 10/06/20 18:24 Dose: 1 mg Documented by: Hydromorphone HCl (Dilaudid) 1 mg IVPUSH ONETIME ONE Stop: 10/06/20 19:06 Last Admin: 10/06/20 19:10 Dose: 1 mg Documented by: Hydromorphone HCl (Dilaudid) 1 mg IVPUSH Q6H PRN PRN Reason: Pain (severe 7-10) Last Admin: 10/07/20 00:30 Dose: 1 mg Documented by: Hydromorphone HCl (Dilaudid) 1 mg IVPUSH ONETIME ONE Stop: 10/07/20 00:47 Last Admin: 10/07/20 04:43 Dose: Not Given Documented by: Hydromorphone HCl (Dilaudid) 2 mg IVPUSH Q6H PRN PRN Reason: Pain (severe 7-10) Hydromorphone HCl (Dilaudid) 1 mg IVPUSH Q4H PRN PRN Reason: Pain (severe 7-10) Hydromorphone HCl (Dilaudid) 1 mg IVPUSH Q2H PRN PRN Reason: Anxiety Last Admin: 10/07/20 10:27 Dose: 1 mg Documented by: Hydromorphone HCl (Dilaudid) 1.5 mg IVPUSH Q2H PRN PRN Reason: severe pain Last Admin: 10/07/20 21:04 Dose: 1.5 mg Documented by: Hydromorphone HCl (Dilaudid) 2 mg IVPUSH Q2H PRN PRN Reason: severe pain Last Admin: 10/08/20 10:12 Dose: 2 mg Documented by: Hydromorphone HCl (Dilaudid) 0.5 mg IVPUSH ONETIME ONE Stop: 10/07/20 21:16 Last Admin: 10/07/20 21:15 Dose: 0.5 mg Documented by: Sodium Chloride (Normal Saline) 1,000 mls @ 999 mls/hr IV .BOLUS ONE Stop: 10/06/20 19:11 Last Admin: 10/06/20 18:20 Dose: 999 mls/hr Documented by: Lorazepam (Ativan) 1 mg PO Q6H PRN PRN Reason: Anxiety Last Admin: 10/06/20 21:22 Dose: 1 mg Documented by: Ondansetron HCl (Zofran) 4 mg IV ONETIME ONE Stop: 10/06/20 18:12 Last Admin: 10/06/20 18:22 Dose: 4 mg Documented by: Prednisone (Prednisone) 60 mg PO WITHBREAKFAST [facility] Stop: 10/10/20 08:01 - Exam General: Alert, Oriented Neck: Supple Lungs: Clear to Auscultation, Normal Respiratory Effort Cardiovascular: Regular Rate, Regular Rhythm GI/Abdominal Exam: Normal Bowel Sounds, Soft, Other (suprapubic tenderness, obese) Extremities: No Pedal Edema Skin: Warm, Dry Neurological: No New Focal Deficit Psy/Mental Status: Alert, Normal Affect, Normal Mood Sepsis Event Note - Evaluation Sepsis Screening Result: No Definite Risk - Focused Exam Vital Signs: Vital Signs Temp Pulse Resp BP BP Pulse Ox 10/08/20 08:00 98.4 F 65 18 114/71 114/71 99 10/08/20 04:00 98.6 F 75 20 108/53 L 98 10/08/20 00:00 98.2 F 70 20 124/72 99 - Problem List & Annotations (1) Loin pain hematuria syndrome SNOMED Code(s): 10717576 Code(s): M54.5 - LOW BACK PAIN; R31.9 - HEMATURIA, UNSPECIFIED Status: Acute Current Visit: Yes (2) Bilateral flank pain SNOMED Code(s): 708587233 Code(s): R10.9 - UNSPECIFIED ABDOMINAL PAIN Status: Acute Current Visit: No (3) Gross hematuria SNOMED Code(s): 369520445 Code(s): R31.0 - GROSS HEMATURIA Status: Acute Current Visit: No - Problem List Review Problem List Initiated/Reviewed/Updated: Yes - My Orders Last 24 Hours: My Active Orders 10/08/20 10:30 oxyCODONE 5 mg PO Q4H PRN 10/08/20 10:34 HYDROmorphone [Dilaudid] 2 mg IVPUSH Q4H PRN oxyCODONE 10 mg PO Q4H PRN - Plan Plan:: 30-year-old with recurrent flank pain with hematuria. Renal biopsy diagnosed Loin pain, hematuria syndrome The patient is being evaluated and scheduled for renal autotransplant. he has been requiring large IV dilaudid doses - still no change in pain control no physical abnormal signs ie. sweating, tachycardia, diaphoresis of severe pain we discussed that we have to work towards out patient treatment we agreed to use PO Oxycodone as preferable to IV will keep IV dilaudid as necessary if pain is intolerable with PO meds hope to minimize IV narcs, development of further tolerance, dependence and addiction plan for discharge in 24h on oral meds
--- NOTE | 2020-10-08 11:57 | PCM.DCSUM1 ---
Discharge Summary - Hospital Course Free Text/Narrative:: 30-year-old with recurrent flank pain with hematuria. Renal biopsy diagnosed Loin pain, hematuria syndrome The patient is being evaluated and scheduled for renal autotransplant. presented with hematuria associated with flank, suprapubic pain. during the hospital stay his labs remained grossly normal head no signs of active infection, no significant blood loss Vital signs remained stable Pain control was difficult He continued to complain of severe pain despite on high doses of IV Dilaudid IV Dilaudid dose was gradually increased and now plans were to transition to oral medications At this point the patient called me that he would like to be discharged since he thinks oral medications will be no different I explained to the patient that it will be most important to have a primary care physician managing his pain and pain medications. it is Sunday today, I recommended him to work hard today on making sure that he has an appointment on Sunday to arrange further care. I explained to him that pain management through the ER will not be possible. I plainly asked him how many pain pills he has at home. He answered he has none. I asked him when was the last time he given pain prescription. he answered that it was the seventh or eighth of September. at this time he said he only has max 1 day worth of pain medication. I told him that according to my record he was actually seen on 05 October. Then he made statements that he probably has pain medication for 1 or 2 days. I looked up again in the computer that his last ER visit was 05 October when he received 24 pills of oxycodone 10/325 mg pills. he was hospitalized on 06 October. He should have plenty of oxycodone at home. This should lasting over the weekend. I will not provide the patient with new narcotic pain prescription we again discussed that trustworthy relationship with a primary care provider will be the only way to receive pain medication. The patient said his pain contract was discontinued with Dr. Faria because he did not go for a pill count one time while he was sick with COVID. There is an ER visit on 15 September when he said he has been taking oxycodone nevertheless his drug screen was negative. Continue Flomax per nephrology no use of steroids For prevention continue losartan Diagnosis: Stroke: No - Discharge Data Discharge Date: 10/08/20 Discharge Disposition: Home, Self-Care 01 Condition: Fair - Referral to Home Health Primary Care Physician: Fatoumata Faria MD - Discharge Diagnosis/Problem(s) (1) Loin pain hematuria syndrome SNOMED Code(s): 64197040 ICD Code: M54.5 - LOW BACK PAIN; R31.9 - HEMATURIA, UNSPECIFIED Status: Acute Current Visit: Yes (2) Bilateral flank pain SNOMED Code(s): 756141111 ICD Code: R10.9 - UNSPECIFIED ABDOMINAL PAIN Status: Acute Current Visit: No (3) Gross hematuria SNOMED Code(s): 026515948 ICD Code: R31.0 - GROSS HEMATURIA Status: Acute Current Visit: No - Discharge Plan *PRESCRIPTION DRUG MONITORING PROGRAM REVIEWED*: Yes *COPY OF PRESCRIPTION DRUG MONITORING REPORT IN PATIENT NICO: Yes Home Medications: Home Meds Tamsulosin HCl [Flomax] 0.4 mg PO BID 05/30/20 [History] oxyCODONE HCl/Acetaminophen [Percocet 10-325 mg Tablet] 1 tab PO Q6H PRN 06/20/20 [History] Ondansetron [Zofran] 4 mg PO Q6H PRN 06/21/20 [History] Acetaminophen [Tylenol] 650 mg PO Q4H PRN tablet 10/08/20 [Rx] Docusate Sodium [Colace] 100 mg PO BID cap 10/08/20 [Rx] Referrals: PCP,None [Ordering Only Provider] - (dr. Faria on Sunday) - Discharge Summary/Plan Comment DC Time >30 min.: No - General Info Date of Service: 10/08/20 Functional Status: Reports: Ambulating. Denies: Pain Controlled - Review of Systems General: Denies: Fever Pulmonary: Denies: Shortness of Breath Cardiovascular: Denies: Chest Pain Gastrointestinal: Reports: Abdominal Pain Neurological: Denies: Confusion - Patient Data Vitals - Most Recent: Last Vital Signs Temp 98.4 F 10/08/20 08:00 Pulse 65 10/08/20 08:00 Resp 18 10/08/20 08:00 BP 114/71 10/08/20 08:00 Pulse Ox 99 10/08/20 08:00 Weight - Most Recent: 245 lb 9.6 oz I&O - Last 24 hours: Intake & Output 02/11/21 02/12/21 02/12/21 22:59 06:59 14:59 Intake Total 60 100 Balance 60 100 Lab Results - Last 24 hrs: Laboratory Results - last 24 hr 10/08/20 10/08/20 Range/Units 06:06 06:06 WBC 8.5 (5.0-10.0) 10^3/uL RBC 4.95 (4.6-6.2) 10^6/uL Hgb 14.7 (14.0-18.0) g/dL Hct 42.5 (40.0-54.0) % MCV 85.9 (80-100) fL MCH 29.7 (27.0-34.0) pg MCHC 34.6 (33.0-35.0) g/dL Plt Count 267 (150-450) 10^3/uL Neut % (Auto) 58.9 (42.2-75.2) % Lymph % (Auto) 31.6 (20.5-50.1) % [place] % (Auto) 6.6 (2-8) % Eos % (Auto) 2.5 (1.0-3.0) % Baso % (Auto) 0.4 (0.0-1.0) % Sodium 140 (136-145) mmol/L Potassium 4.2 (3.5-5.1) mmol/L Chloride 103 (98-107) mmol/L Carbon Dioxide 28 (21-32) mmol/L Anion Gap 13.2 H (7-13) mEq/L BUN 10 (7-18) mg/dL Creatinine 0.91 (0.70-1.30) mg/dL Est Cr Clr Drug Dosing 139.26 mL/min Estimated GFR (MDRD) > 60 Glucose 89 (74-99) mg/dL Calcium 8.4 L (8.5-10.1) mg/dL Med Orders - Current: Current Medications Acetaminophen (Tylenol) 650 mg PO Q4H PRN PRN Reason: Pain (Mild 1-3)/fever Docusate Sodium (Colace) 100 mg PO BID BRITTANY Last Admin: 10/08/20 08:00 Dose: 100 mg Documented by: Hydromorphone HCl (Dilaudid) 2 mg IVPUSH Q4H PRN PRN Reason: brkthrough pain if PO not wrk Potassium Chloride/Sodium Chloride (Normal Saline With 20 Meq Kcl) 1,000 mls @ 150 mls/hr IV ASDIRECTED BRITTANY Last Admin: 10/08/20 06:03 Dose: 150 mls/hr Documented by: Lorazepam (Ativan) 1 mg PO Q4H PRN PRN Reason: Anxiety Last Admin: 10/07/20 06:29 Dose: 1 mg Documented by: Losartan Potassium (Cozaar) 25 mg PO DAILY BRITTANY Last Admin: 10/08/20 08:00 Dose: 25 mg Documented by: Naloxone HCl (Narcan) 0.4 mg IVPUSH Q2M PRN PRN Reason: respiratory distress Ondansetron HCl (Zofran Odt) 4 mg PO Q6H PRN PRN Reason: Nausea Last Admin: 10/07/20 20:27 Dose: 4 mg Documented by: Ondansetron HCl (Zofran) 4 mg IVPUSH Q4H PRN PRN Reason: Nausea/Vomiting Oxycodone HCl (Oxycodone) 5 mg PO Q4H PRN PRN Reason: Pain (moderate 4-6) Oxycodone HCl (Oxycodone) 10 mg PO Q4H PRN PRN Reason: Pain (severe 7-10) Polyethylene Glycol (Miralax) 17 gm PO DAILY PRN PRN Reason: Constipation Sodium Chloride (Saline Flush) 10 ml FLUSH ASDIRECTED PRN PRN Reason: Keep Vein Open Last Admin: 10/07/20 21:02 Dose: 10 ml Documented by: Tamsulosin HCl (Flomax) 0.4 mg PO BID [facility] Last Admin: 10/08/20 08:00 Dose: 0.4 mg Documented by: Zolpidem Tartrate (Ambien) 5 mg PO BEDTIME PRN PRN Reason: Sleep Last Admin: 10/06/20 21:23 Dose: 5 mg Documented by: Discontinued Medications Fentanyl Citrate (Fentanyl 1,500 Mcg/30 Ml-Water) 0 mcg IV ASDIRECTED [facility]; Protocol Last Admin: 10/06/20 20:50 Dose: 1,500 mcg Documented by: Fentanyl Citrate (Fentanyl 1,500 Mcg/30 Ml-Water) Confirm Administered Dose 1,500 mcg .ROUTE .STK-MED ONE Stop: 10/07/20 00:18 Hydromorphone HCl (Dilaudid) 1 mg IVPUSH ONETIME ONE Stop: 10/06/20 18:12 Last Admin: 10/06/20 18:24 Dose: 1 mg Documented by: Hydromorphone HCl (Dilaudid) 1 mg IVPUSH ONETIME ONE Stop: 10/06/20 19:06 Last Admin: 10/06/20 19:10 Dose: 1 mg Documented by: Hydromorphone HCl (Dilaudid) 1 mg IVPUSH Q6H PRN PRN Reason: Pain (severe 7-10) Last Admin: 10/07/20 00:30 Dose: 1 mg Documented by: Hydromorphone HCl (Dilaudid) 1 mg IVPUSH ONETIME ONE Stop: 10/07/20 00:47 Last Admin: 10/07/20 04:43 Dose: Not Given Documented by: Hydromorphone HCl (Dilaudid) 2 mg IVPUSH Q6H PRN PRN Reason: Pain (severe 7-10) Hydromorphone HCl (Dilaudid) 1 mg IVPUSH Q4H PRN PRN Reason: Pain (severe 7-10) Hydromorphone HCl (Dilaudid) 1 mg IVPUSH Q2H PRN PRN Reason: Anxiety Last Admin: 10/07/20 10:27 Dose: 1 mg Documented by: Hydromorphone HCl (Dilaudid) 1.5 mg IVPUSH Q2H PRN PRN Reason: severe pain Last Admin: 10/07/20 21:04 Dose: 1.5 mg Documented by: Hydromorphone HCl (Dilaudid) 2 mg IVPUSH Q2H PRN PRN Reason: severe pain Last Admin: 10/08/20 10:12 Dose: 2 mg Documented by: Hydromorphone HCl (Dilaudid) 0.5 mg IVPUSH ONETIME ONE Stop: 10/07/20 21:16 Last Admin: 10/07/20 21:15 Dose: 0.5 mg Documented by: Sodium Chloride (Normal Saline) 1,000 mls @ 999 mls/hr IV .BOLUS ONE Stop: 10/06/20 19:11 Last Admin: 10/06/20 18:20 Dose: 999 mls/hr Documented by: Lorazepam (Ativan) 1 mg PO Q6H PRN PRN Reason: Anxiety Last Admin: 10/06/20 21:22 Dose: 1 mg Documented by: Ondansetron HCl (Zofran) 4 mg IV ONETIME ONE Stop: 10/06/20 18:12 Last Admin: 10/06/20 18:22 Dose: 4 mg Documented by: Prednisone (Prednisone) 60 mg PO WITHBREAKFAST BRITTANY Stop: 10/10/20 08:01 - Exam General: Reports: Alert, Oriented, No Acute Distress Psy/Mental Status: Reports: Alert, Normal Affect, Normal Mood *Q Meaningful Use (DIS) - VTE *Q VTE Anticoagulation Contraindications: Medical/Procedure Contrai
== END 2020-10-08 12:35 | disposition home or self-care (01) | DRG 552 ==
LOC: DL.ED 17:58 → DL.MS 19:27 → UNDOADMIN 19:27 → EEVIPCON 20:22 → DL.MS 20:22
PROVIDERS: ADMIT Internal Medicine; ATTEND Internal Medicine
DX: N39.8 Other specified disorders of urinary system (principal); M54.5 Low back pain; R31.0 Gross hematuria; Z87.442 Personal history of urinary calculi; Z90.49 Acquired absence of other specified parts of digestive tract; Z98.890 Other specified postprocedural states; E66.9 Obesity, unspecified; Z68.31 Body mass index [BMI] 31.0-31.9, adult; D69.0 Allergic purpura; K21.9 Gastro-esophageal reflux disease without esophagitis; Z88.8 Allergy status to other drugs, medicaments and biological substances; Z88.1 Allergy status to other antibiotic agents; Z91.030 Bee allergy status; Z79.899 Other long term (current) drug therapy
CPT/HCPCS: 36415; 80053; 81001; 83605; 85025; 85610; 85730; 86140; 96374; 96375; 96376; 99284; J1170 ×2; J2405; J7030; 80048; 80305-QW; 85027; A9270-GY; J3010; J3480

== ENCOUNTER 2020-10-09 12:28 | Emergency (ER) | payer MEDICAID ==
[2020-10-09 12:51] VITALS: BP 129/68; PULSE 87
[2020-10-09] MEDS ORDERED: Ondansetron 4 MG Tab.DIS PO ONE (14:30)
[2020-10-09] MEDS ORDERED: HYDROmorphone 1 MG/ML Syringe IM ONE ×2 (14:30→16:42)
[2020-10-09 15:28] LABS: CHLORIDE,CL 103 mmol/L (98-107); SODIUM,NA 138 mmol/L (136-145)
--- NOTE | 2020-10-09 15:29 | EDM.PDOC ---
ED HPI GENERAL MEDICAL PROBLEM - General Chief Complaint: Flank Pain Stated Complaint: ABDOMINAL PAIN Time Seen by Provider: 10/09/20 13:00 Source of Information: Reports: Patient, Family, Old Records, RN, RN Notes Reviewed - History of Present Illness INITIAL COMMENTS - FREE TEXT/NARRATIVE: Patient presents to the ED via personal vehicle with mother for complaints of gross hematuria, inability to void, and bilateral flank pain (left > right). The patient has a history of loin pain syndrome and has been experiencing an acute exacerbation. The patient has an appointment with [facility] Torey Ruiz for evaluation of a renal allograft on November 02. He was admitted three days ago, 10/06/20, for acute pain management; per review of records he requested discharge following transition from IV pain medications to PO medications. The patient states he has been attempting his home medication of Oxycodone 10/325mg which offered him [id number] relief of pain. He states he is now unable to vo id but attests to dysuria and hematuria. He attests to a temp of 99.8 this morning and nausea with six bouts of vomiting since discharge. He denies pain with stooling, melena, or hematochezia. Left Flank Pain Score (Numeric/FACES): 9 - Related Data Allergies Allergy/AdvReac Type Severity Reaction Status Date / Time amoxicillin [Amoxicillin] Allergy Rash Verified 10/09/20 12:51 bee venom protein (honey bee) Allergy Cannot Verified 10/09/20 12:51 Remember ketorolac tromethamine Allergy Rash Verified 10/09/20 12:51 [From Toradol] metoclopramide [From Reglan] Allergy Agitation Verified 10/09/20 12:51 promethazine HCl Allergy Hallucinati Verified 10/09/20 12:51 [From Phenergan] ons tramadol HCl [From Ultram] Allergy Rash Verified 10/09/20 12:51 Home Meds: Home Meds Tamsulosin HCl [Flomax] 0.4 mg PO BID 05/30/20 [History] oxyCODONE HCl/Acetaminophen [Percocet 10-325 mg Tablet] 1 tab PO Q6H PRN 06/20/20 [History] Ondansetron [Zofran] 4 mg PO Q6H PRN 06/21/20 [History] Acetaminophen [Tylenol] 650 mg PO Q4H PRN tablet 10/08/20 [Rx] Docusate Sodium [Colace] 100 mg PO BID cap 10/08/20 [Rx] Losartan [Cozaar] 25 mg PO DAILY tablet 10/08/20 [Rx] Past Medical History - Past Health History Medical/Surgical History: Denies Medical/Surgical History HEENT History: Reports: None Cardiovascular History: Reports: None Respiratory History: Reports: None Gastrointestinal History: Reports: Gastritis, GERD, Other (See Below) Other Gastrointestinal History: gallbladder pain Genitourinary History: Reports: Renal Calculus, Other (See Below) 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 Hematologic History: Reports: None Immunologic History: Reports: None, Other (See Below) Oncologic (Cancer) History: Reports: None Dermatologic History: Reports: None - Infectious Disease History Infectious Disease History: Reports: Chicken Pox, Novel Coronavirus - Past Surgical History Head Surgeries/Procedures: Reports: None HEENT Surgical History: Reports: None Cardiovascular Surgical History: Reports: None GI Surgical History: Reports: Appendectomy, Cholecystectomy Male Surgical History: Reports: Circumcision Other Male Surgeries/Procedures: Has had kidney biopsy Musculoskeletal Surgical History: Reports: Other (See Below) Other Musculoskeletal Surgeries/Procedures:: left arm Social & Family History - Family History Family Medical History: No Pertinent Family History - Tobacco Use Tobacco Use Status *Q: Never Tobacco User Second Hand Smoke Exposure: No - Caffeine Use Caffeine Use: Reports: Soda Caffeine Use Comment: 32 oz daily - Recreational Drug Use Recreational Drug Type: Reports: Marijuana/Hashish Other Recreational Drug Type: medical -- used a week ago - Living Situation & Occupation Living situation: Reports: Single, Alone Occupation: Employed ED ROS GENERAL - Review of Systems Review Of Systems: Comprehensive ROS is negative, except as noted in HPI. ED EXAM, RENAL/ - Physical Exam Exam: See Below Exam Limited By: No Limitations General Appearance: Alert, Moderate Distress (Bilateral flank pain) Throat/Mouth: Normal Inspection, Normal Voice, No Airway Compromise Head: Atraumatic, Normocephalic Respiratory/Chest: No Respiratory Distress, Lungs Clear, Normal Breath Sounds, No Accessory Muscle Use, Chest Non-Tender Cardiovascular: Normal Peripheral Pulses, Regular Rate, Rhythm, No Edema, No Gallop, No JVD, No Murmur, No Rub GI/Abdominal: Soft, No Distention, No Abnormal Bruit, No Mass, Pelvis Stable, Tender (Suprapubic tenderness), Abnormal Bowel Sounds (Hypoactive bowel sounds) (Male) Exam: Deferred Rectal (Males) Exam: Deferred Back Exam: CVA Tenderness (L), CVA Tenderness (R). No: Muscle Spasm, Paraspinal Tenderness, Vertebral Tenderness Neurological: Alert, Oriented, CN II-XII Intact, Normal Cognition, Normal Gait, No Motor/Sensory Deficits Psychiatric: Normal Affect, Normal Mood Skin Exam: Warm, Dry, Intact, Normal Color, No Rash. No: Ecchymosis, Erythema, Jaundice, Pallor, Petechiae Course - Vital Signs Last Recorded V/S: Last Vital Signs Temp 96.3 F L 10/09/20 12:45 Pulse 87 10/09/20 12:45 Resp 16 10/09/20 12:45 BP 129/68 10/09/20 12:45 Pulse Ox 99 10/09/20 12:45 - Orders/Labs/Meds Labs: Laboratory Tests 10/09/20 10/09/20 Range/Units 14:56 14:56 WBC 9.2 (5.0-10.0) 10^3/uL RBC 5.31 (4.6-6.2) 10^6/uL Hgb 15.6 (14.0-18.0) g/dL Hct 44.9 (40.0-54.0) % MCV 84.6 (80-100) fL MCH 29.4 (27.0-34.0) pg MCHC 34.7 (33.0-35.0) g/dL Plt Count 288 (150-450) 10^3/uL Neut % (Auto) 63.7 (42.2-75.2) % Lymph % (Auto) 24.6 (20.5-50.1) % [place] % (Auto) 7.2 (2-8) % Eos % (Auto) 4.2 H (1.0-3.0) % Baso % (Auto) 0.3 (0.0-1.0) % Sodium 138 (136-145) mmol/L Potassium 4.0 (3.5-5.1) mmol/L Chloride 103 (98-107) mmol/L Carbon Dioxide 25 (21-32) mmol/L Anion Gap 14.0 H (7-13) mEq/L BUN 12 (7-18) mg/dL Creatinine 0.76 (0.70-1.30) mg/dL Est Cr Clr Drug Dosing 162.08 mL/min Estimated GFR (MDRD) > 60 BUN/Creatinine Ratio 15.8 (No establ ref range) Glucose 97 (74-99) mg/dL Calcium 8.8 (8.5-10.1) mg/dL Total Bilirubin 0.7 (0.2-1.0) mg/dL AST 39 H (15-37) U/L ALT 68 H (16-63) U/L Alkaline Phosphatase 73 (46-116) U/L Total Protein 7.6 (6.4-8.2) g/dL Albumin 4.0 (3.4-5.0) g/dL Globulin 3.6 Albumin/Globulin Ratio 1.1 Meds: Medications Discontinued Medications Generic Name Dose Route Start Last Admin Trade Name Freq PRN Reason Stop Dose Admin Hydromorphone HCl 1 mg 10/09/20 14:30 10/09/20 14:47 Dilaudid IM 10/09/20 14:31 1 mg ONETIME ONE Administration Hydromorphone HCl 1 mg 10/09/20 16:42 10/09/20 16:52 Dilaudid IM 10/09/20 16:43 1 mg ONETIME ONE Administration Ondansetron HCl 4 mg 10/09/20 14:30 10/09/20 14:45 Zofran Odt PO 10/09/20 14:31 4 mg ONETIME ONE Administration - Re-Assessments/Exams Free Text/Narrative Re-Assessment/Exam: 10/09/20 Patient states mild improvement in symptoms following Dilaudid 1mg IM and Zofran ODT 4mg. He continues to refuse ability to urinate and states he feels "as though my bladder is going to explode." Patient refuses straight catheter and states he will only be catheterized by a Urologist "..who knows what they are doing." Patient bladder scanned via bedside nurse for 52mLs. Patient and mother updated regarding results of bladder scan. CBC and CMP unremarkable for acute processes; no indication of infection or dehydration. Patient and mother continue to express need to be transferred to [facility] for further evaluation. Case discussed with Dr. Nelson who declined transfer for admission; he states the patient has a known health condition that is being followed by [facility], [facility], and [facility]. He feels further facility involvement would be for acute pain managem ent which can be performed OP or at the aforementioned facilities. Patient and mother updated on decline for transfer. Patient and mother now requesting to be admitted to this facility, again. Di jayneussed recent early discharge at the request of the patient due to transition from IV pain medications to PO medications. Patient states he does not understand the need for admission to this facility if he will only be getting PO medications, but requests I present the case to our hospitalist. Discussed case with Dr. Martinez, who discharged patient yesterday at the patient's request. Dr. Martinez, too, is declining admission of this patient as he does not feel the patient requires IV pain medication for this problem. He suggests to increase patient's Oxycodone dose and have patient seek to establish care in clinic early next week. Discussed decline for admission to this facility with patient and his mother. Patient and mother became verbally aggressive following discussion as patient f eels he will not be able to establish care this week. When questioned about patient's ongoing plan for pain management between now and [facility] appointment on November 02 the patient states he doesn't have one. Will treat patient with 16 tabs of Percocet for pain through the weekend. Addendum: Patient called into ED from home following discharge requesting prescription for Dilaudid at home stating "..the provider said she was going to give me as prescription for Dilaudid." Conversation about home Dilaudid prescription between news writer and patient did not happen. Departure - Departure Time of Disposition: 16:52 Disposition: Home, Self-Care 01 Condition: Good Clinical Impression: Bilateral flank pain, History of Henoch-Schonlein purpura, Loin pain hematuria syndrome, Drug-seeking behavior - Discharge Information *PRESCRIPTION DRUG MONITORING PROGRAM REVIEWED*: Yes *COPY OF PRESCRIPTION DRUG MONITORING REPORT IN PATIENT NICO: Yes Referrals: Fatoumata Faria MD [Primary Care Provider] - Forms: ED Department Discharge Additional Instructions: Rx: Oxycodone + Acetaminophen 1.) Establish with a primary care provider early next week for ongoing management of your chronic condition Sepsis Event Note (ED) - Evaluation Sepsis Screening Result: No Definite Risk
== END 2020-10-09 16:59 | disposition home or self-care (01) ==
LOC: DL.ED 12:28
DX: N39.8 Other specified disorders of urinary system (principal); Z76.5 Malingerer [conscious simulation]; D45 Polycythemia vera; E66.9 Obesity, unspecified; Z68.41 Body mass index [BMI] 40.0-44.9, adult; Z88.0 Allergy status to penicillin; Z91.030 Bee allergy status; Z88.6 Allergy status to analgesic agent; Z88.8 Allergy status to other drugs, medicaments and biological substances; Z88.5 Allergy status to narcotic agent; Z79.899 Other long term (current) drug therapy
CPT/HCPCS: 36415; 80053; 85025; 96372; 99284; A9270; J1170

== ENCOUNTER 2020-10-13 04:36 | Emergency (ER) | payer MEDICAID ==
--- NOTE | 2020-10-13 04:39 | EDM.PDOC ---
ED HPI GENERAL MEDICAL PROBLEM - General Stated Complaint: KIDNEY PROBLEMS Time Seen by Provider: 10/13/20 04:45 Source of Information: Reports: Patient History Limitations: Reports: No Limitations - History of Present Illness INITIAL COMMENTS - FREE TEXT/NARRATIVE: Patient seen for 10th visit this month for similar chronic problem of reporting flank pain and blood in urine. Has vomited at home , denies nausea, states emesis due to poor pain control. 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 Denies fever, occassional chills. Has not estabished local primary care as prior PCP moving. Bilateral Lower Flank Pain Score (Numeric/FACES): 9 - Related Data Allergies Allergy/AdvReac Type Severity Reaction Status Date / Time amoxicillin [Amoxicillin] Allergy Rash Verified 10/13/20 05:56 bee venom protein (honey bee) Allergy Cannot Verified 10/13/20 05:56 Remember ketorolac tromethamine Allergy Rash Verified 10/13/20 05:56 [From Toradol] metoclopramide [From Reglan] Allergy Agitation Verified 10/13/20 05:56 promethazine HCl Allergy Hallucinati Verified 10/13/20 05:56 [From Phenergan] ons tramadol HCl [From Ultram] Allergy Rash Verified 10/13/20 05:56 Home Meds: Home Meds Tamsulosin HCl [Flomax] 0.4 mg PO BID 05/30/20 [History] oxyCODONE HCl/Acetaminophen [Percocet 10-325 mg Tablet] 1 tab PO Q6H PRN 06/20/20 [History] Ondansetron [Zofran] 4 mg PO Q6H PRN 06/21/20 [History] Acetaminophen [Tylenol] 650 mg PO Q4H PRN tablet 10/08/20 [Rx] Docusate Sodium [Colace] 100 mg PO BID cap 10/08/20 [Rx] Losartan [Cozaar] 25 mg PO DAILY tablet 10/08/20 [Rx] Past Medical History - Past Health History Medical/Surgical History: Denies Medical/Surgical History HEENT History: Reports: None Cardiovascular History: Reports: None Respiratory History: Reports: None Gastrointestinal History: Reports: Gastritis, GERD, Other (See Below) Other Gastrointestinal History: gallbladder pain Genitourinary History: Reports: Renal Calculus, Other (See Below) 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 Hematologic History: Reports: None Immunologic History: Reports: None, Other (See Below) Oncologic (Cancer) History: Reports: None Dermatologic History: Reports: None - Infectious Disease History Infectious Disease History: Reports: Chicken Pox, Novel Coronavirus - Past Surgical History Head Surgeries/Procedures: Reports: None HEENT Surgical History: Reports: None Cardiovascular Surgical History: Reports: None GI Surgical History: Reports: Appendectomy, Cholecystectomy Male Surgical History: Reports: Circumcision Other Male Surgeries/Procedures: Has had kidney biopsy Musculoskeletal Surgical History: Reports: Other (See Below) Other Musculoskeletal Surgeries/Procedures:: left arm Social & Family History - Family History Family Medical History: No Pertinent Family History - Caffeine Use Caffeine Use: Reports: Soda Caffeine Use Comment: 32 oz daily - Living Situation & Occupation Living situation: Reports: Single, Alone Occupation: Employed ED ROS GENERAL - Review of Systems Review Of Systems: Comprehensive ROS is negative, except as noted in HPI. ED EXAM, GENERAL - Physical Exam Exam: See Below Exam Limited By: No Limitations General Appearance: Alert, Mild Distress, Obese Eye Exam: Bilateral Eye: EOMI Ears: Normal External Exam, Hearing Grossly Normal Nose: Normal Inspection Throat/Mouth: Normal Inspection Head: Atraumatic, Normocephalic Neck: Normal Inspection Respiratory/Chest: No Respiratory Distress, Lungs Clear, Normal Breath Sounds Cardiovascular: Normal Peripheral Pulses, Regular Rate, Rhythm GI/Abdominal: Soft, No Distention. No: Guarding, Rebound, Tender Back Exam: CVA Tenderness (L), CVA Tenderness (R). No: Decreased Range of Motion, Muscle Spasm, Paraspinal Tenderness, Vertebral Tenderness Extremities: Normal Inspection Neurological: Alert, Oriented, Normal Cognition Psychiatric: Flat Affect Skin Exam: Warm, Dry, Intact, Normal Color Course - Vital Signs Last Recorded V/S: Last Vital Signs Temp 96.9 F 10/13/20 04:42 Pulse 71 10/13/20 04:42 Resp 18 10/13/20 04:42 BP 134/82 10/13/20 04:42 Pulse Ox 99 10/13/20 04:42 - Orders/Labs/Meds Orders: Active Orders 24 hr Category Date Time Status CULTURE URINE [RM] Stat Lab 10/13/20 05:14 Received Labs: Laboratory Tests 10/13/20 10/13/20 10/13/20 Range/Units 05:03 05:03 05:03 WBC 8.2 (5.0-10.0) 10^3/uL RBC 5.04 (4.6-6.2) 10^6/uL Hgb 14.9 (14.0-18.0) g/dL Hct 42.8 (40.0-54.0) % MCV 84.9 (80-100) fL MCH 29.6 (27.0-34.0) pg MCHC 34.8 (33.0-35.0) g/dL Plt Count 265 (150-450) 10^3/uL Neut % (Auto) 63.1 (42.2-75.2) % Lymph % (Auto) 25.8 (20.5-50.1) % [place] % (Auto) 7.8 (2-8) % Eos % (Auto) 2.9 (1.0-3.0) % Baso % (Auto) 0.4 (0.0-1.0) % Lactic Acid 0.8 (0.4-2.0) mmol/L C-Reactive Protein 0.3 (0.0-0.9) mg/dL Urine Color (YELLOW) Urine Appearance (CLEAR) Urine pH (5.0-9.0) Ur Specific [place] (1.005-1.030) Urine Protein (NEGATIVE) Urine Glucose (UA) (NEGATIVE) Urine Ketones (NEGATIVE) Urine Occult Blood (NEGATIVE) Urine Nitrite (NEGATIVE) Urine Bilirubin (NEGATIVE) Urine Urobilinogen (0.2-1.0) mg/dL Ur Leukocyte Esterase (NEGATIVE) Urine RBC /HPF Urine WBC (0-5/HPF) /HPF Ur Epithelial Cells (NOT SEEN) /HPF Amorphous Sediment (NOT SEEN) /HPF Urine Bacteria (0-FEW/HPF) /HPF Urine Mucus (NOT SEEN) /LPF Urine Opiates Screen (NEGATIVE) Ur Oxycodone Screen (NEGATIVE) Urine Methadone Screen (NEGATIVE) Ur Barbiturates Screen (NEGATIVE) U Tricyclic Antidepress (NEGATIVE) Ur Phencyclidine Scrn (NEGATIVE) Ur Amphetamine Screen (NEGATIVE) U Methamphetamines Scrn (NEGATIVE) Urine MDMA Screen (NEGATIVE) U Benzodiazepines Scrn (NEGATIVE) Urine Cocaine Screen (NEGATIVE) U Marijuana (THC) Screen (NEGATIVE) 10/13/20 10/13/20 Range/Units 05:14 05:14 WBC (5.0-10.0) 10^3/uL RBC (4.6-6.2) 10^6/uL Hgb (14.0-18.0) g/dL Hct (40.0-54.0) % MCV (80-100) fL MCH (27.0-34.0) pg MCHC (33.0-35.0) g/dL Plt Count (150-450) 10^3/uL Neut % (Auto) (42.2-75.2) % Lymph % (Auto) (20.5-50.1) % [place] % (Auto) (2-8) % Eos % (Auto) (1.0-3.0) % Baso % (Auto) (0.0-1.0) % Lactic Acid (0.4-2.0) mmol/L C-Reactive Protein (0.0-0.9) mg/dL Urine Color Dark yellow (YELLOW) Urine Appearance Turbid (CLEAR) Urine pH 5.5 (5.0-9.0) Ur Specific [place] >= 1.030 (1.005-1.030) Urine Protein 30 H (NEGATIVE) Urine Glucose (UA) Negative (NEGATIVE) Urine Ketones Negative (NEGATIVE) Urine Occult Blood Large H (NEGATIVE) Urine Nitrite Negative (NEGATIVE) Urine Bilirubin Negative (NEGATIVE) Urine Urobilinogen 0.2 (0.2-1.0) mg/dL Ur Leukocyte Esterase Trace H (NEGATIVE) Urine RBC >100 H /HPF Urine WBC 5-10 H (0-5/HPF) /HPF Ur Epithelial Cells Few (NOT SEEN) /HPF Amorphous Sediment Few (NOT SEEN) /HPF Urine Bacteria Occasional (0-FEW/HPF) /HPF Urine Mucus Occasional (NOT SEEN) /LPF Urine Opiates Screen Negative (NEGATIVE) Ur Oxycodone Screen Positive H (NEGATIVE) Urine Methadone Screen Negative (NEGATIVE) Ur Barbiturates Screen Negative (NEGATIVE) U Tricyclic Antidepress Negative (NEGATIVE) Ur Phencyclidine Scrn Negative (NEGATIVE) Ur Amphetamine Screen Negative (NEGATIVE) U Methamphetamines Scrn Negative (NEGATIVE) Urine MDMA Screen Negative (NEGATIVE) U Benzodiazepines Scrn Negative (NEGATIVE) Urine Cocaine Screen Negative (NEGATIVE) U Marijuana (THC) Screen Positive H (NEGATIVE) Meds: Medications Discontinued Medications Generic Name Dose Route Start Last Admin Trade Name Freq PRN Reason Stop Dose Admin Hydromorphone HCl 1 mg 10/13/20 04:57 10/13/20 05:20 Dilaudid IVPUSH 10/13/20 04:58 1 mg ONETIME ONE Administration Hydromorphone HCl 1 mg 10/13/20 05:55 10/13/20 06:10 Dilaudid IM 10/13/20 05:56 1 mg ONETIME ONE Administration Sodium Chloride 1,000 mls @ 999 mls/hr 10/13/20 04:57 10/13/20 05:20 Normal Saline IV 10/13/20 05:57 999 mls/hr .BOLUS ONE Administration Ondansetron HCl 4 mg 10/13/20 05:00 10/13/20 05:19 Zofran IVPUSH 10/13/20 05:01 4 mg ONETIME ONE Administration - Re-Assessments/Exams Free Text/Narrative Re-Assessment/Exam: 10/13/20 07:37 RX written percocet 10/325 one every 6 hours as needed for severe pain #12. Francois fine was clearly instructed to establish primary care. This provider will not fill additional medications for this chronic pain issue. If pain poorly controlled and needs break through control in addition , he may follow in ED as needed. Patient verbalizes understanding of limitation. He has remained cooperative and calm through encouter. Patient does have established diagnosis that contributes to chronic pain issues but attends poorly to items such as establishing routine clinic care questionable overuse of ED and at times demostrates drug seeking behaviors. He was instructed to continue follow up with [facility] contact in case there is possibility of moving up his scheduled appointment on November 01. Departure - Departure Time of Disposition: 06:38 Disposition: Home, Self-Care 01 Condition: Fair Clinical Impression: Flank pain Chronic pain Qualifiers: Chronic pain type: other chronic pain Qualified Code(s): G89.29 - Other chronic pain - Discharge Information *PRESCRIPTION DRUG MONITORING PROGRAM REVIEWED*: Yes *COPY OF PRESCRIPTION DRUG MONITORING REPORT IN PATIENT NICO: No Instructions: Chronic Pain, Adult Referrals: Fatoumata Faria MD [Primary Care Provider] - Forms: ED Department Discharge Additional Instructions: light activity encourage fluids and stay hydrated establish primary care for medication management and care coordination urgent follow up if fever or signs of infection - My Orders Last 24 Hours: My Active Orders 10/13/20 05:14 CULTURE URINE [RM] Stat - Assessment/Plan Last 24 Hours: My Active Orders 10/13/20 05:14 CULTURE URINE [RM] Stat
[2020-10-13 04:44] VITALS: BP 134/82; PULSE 71
[2020-10-13] MEDS ORDERED: HYDROmorphone 1 MG/ML Syringe IVPUSH ONE (04:57)
[2020-10-13] MEDS ORDERED: Sodium Chloride 0.9% 1,000 ML IV ONE (04:57)
[2020-10-13] MEDS ORDERED: Ondansetron 4 MG/2 ML SDV IVPUSH ONE (05:00)
[2020-10-13] MEDS ORDERED: HYDROmorphone 1 MG/ML Syringe IM ONE (05:55)
== END 2020-10-13 06:48 | disposition home or self-care (01) ==
LOC: DL.ED 04:36
DX: R10.9 Unspecified abdominal pain (principal); G89.29 Other chronic pain; R31.9 Hematuria, unspecified; R11.10 Vomiting, unspecified; E66.9 Obesity, unspecified; Z68.42 Body mass index [BMI] 45.0-49.9, adult; Z86.16 Personal history of COVID-19; Z88.0 Allergy status to penicillin; Z91.030 Bee allergy status; Z88.8 Allergy status to other drugs, medicaments and biological substances; Z88.5 Allergy status to narcotic agent; Z79.899 Other long term (current) drug therapy
CPT/HCPCS: 36415; 80305; 81001; 81003; 83605; 85025; 86140; 87086; 96372; 96374; 96375; 99284; J1170; J2405; J7030

== ENCOUNTER 2020-10-18 12:08 | Emergency (ER) | payer MEDICAID | END 2020-10-18 13:02 | disposition home or self-care (01) | LOC: DL.ED 12:08 | DX: Z53.21 Procedure and treatment not carried out due to patient leaving prior to being seen by health care provider (principal) ==

== ENCOUNTER 2020-10-21 07:48 | Emergency (ER) | payer MEDICAID ==
[2020-10-21 08:27] VITALS: BP 129/81; PULSE 73
[2020-10-21] MEDS ORDERED: HYDROmorphone 1 MG/ML Syringe IVPUSH ONE (08:36)
--- NOTE | 2020-10-21 08:46 | EDM.PDOC ---
ED HPI GENERAL MEDICAL PROBLEM - General Chief Complaint: Genitourinary Problem Stated Complaint: ABDOMINAL PAIN Time Seen by Provider: 10/21/20 08:30 Source of Information: Reports: Patient History Limitations: Reports: No Limitations - History of Present Illness INITIAL COMMENTS - FREE TEXT/NARRATIVE: This 30 yo male patient reports to the ED with increased left lateral abdominal and flank pain. The patient has a history of loin pain syndrome and is scheduled to be seen by a specialist in [place] in the middle of October. The patient has been seen in the Clinic this week and has a prescription for Oxycodone/Acetaminophen (7.5/325) for his pain. The patient reports he took his Oxycodone this morning at 0530 with no symptom relief. Onset: Today Duration: Constant Location: Reports: Abdomen, Back Quality: Reports: Ache, Stabbing Severity: Severe Improves with: Reports: None Worsens with: Reports: None Context: Reports: Other Treatments [employer]ING [employer]GER: Reports: Other Medication(s) Left Flank Pain Score (Numeric/FACES): 8 - Related Data Allergies Allergy/AdvReac Type Severity Reaction Status Date / Time amoxicillin [Amoxicillin] Allergy Rash Verified 10/21/20 08:10 bee venom protein (honey bee) Allergy Cannot Verified 10/21/20 08:10 Remember ketorolac tromethamine Allergy Rash Verified 10/21/20 08:10 [From Toradol] metoclopramide [From Reglan] Allergy Agitation Verified 10/21/20 08:10 promethazine HCl Allergy Hallucinati Verified 10/21/20 08:10 [From Phenergan] ons tramadol HCl [From Ultram] Allergy Rash Verified 10/21/20 08:10 Home Meds: Home Meds Tamsulosin HCl [Flomax] 0.4 mg PO TID 05/30/20 [History] oxyCODONE HCl/Acetaminophen [Percocet 10-325 mg Tablet] 1 tab PO Q6H PRN 06/20/20 [History] Ondansetron [Zofran] 4 mg PO Q6H PRN 06/21/20 [History] Acetaminophen [Tylenol] 650 mg PO Q4H PRN tablet 10/08/20 [Rx] Losartan [Cozaar] 25 mg PO DAILY tablet 10/08/20 [Rx] Docusate Sodium [Colace] 100 mg PO BID PRN 10/21/20 [History] Past Medical History - Past Health History Medical/Surgical History: Denies Medical/Surgical History HEENT History: Reports: None Cardiovascular History: Reports: None Respiratory History: Reports: None Gastrointestinal History: Reports: Cholelithiasis, Gastritis, GERD Other Gastrointestinal History: gallbladder pain Genitourinary History: Reports: Renal Calculus, Other (See Below) 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 Hematologic History: Reports: None Immunologic History: Reports: None, Other (See Below) Oncologic (Cancer) History: Reports: None Dermatologic History: Reports: None - Infectious Disease History Infectious Disease History: Reports: Chicken Pox, Novel Coronavirus - Past Surgical History Head Surgeries/Procedures: Reports: None HEENT Surgical History: Reports: None Cardiovascular Surgical History: Reports: None GI Surgical History: Reports: Appendectomy, Cholecystectomy Male Surgical History: Reports: Circumcision Other Male Surgeries/Procedures: Has had kidney biopsy Musculoskeletal Surgical History: Reports: Other (See Below) Other Musculoskeletal Surgeries/Procedures:: left arm Social & Family History - Family History Family Medical History: No Pertinent Family History - Caffeine Use Caffeine Use: Reports: Coffee, Soda Caffeine Use Comment: 32 oz daily - Living Situation & Occupation Living situation: Reports: Single, Alone Occupation: Employed ED ROS GENERAL - Review of Systems Review Of Systems: Comprehensive ROS is negative, except as noted in HPI. ED EXAM, RENAL/ - Physical Exam Exam: See Below Exam Limited By: No Limitations General Appearance: Alert, WD/WN, No Apparent Distress Eye Exam: Bilateral Eye: EOMI, Normal Inspection Ears: Normal External Exam, Normal Canal, Hearing Grossly Normal, Normal TMs Nose: Normal Inspection, Normal Mucosa, No Blood Throat/Mouth: Normal Inspection, Normal Lips, Normal Teeth, Normal Gums, Normal Oropharynx, Normal Voice, No Airway Compromise Head: Atraumatic, Normocephalic Neck: Normal Inspection, Supple, Non-Tender, Full Range of Motion Respiratory/Chest: No Respiratory Distress, Lungs Clear, Normal Breath Sounds, No Accessory Muscle Use, Chest Non-Tender Cardiovascular: Normal Peripheral Pulses, Regular Rate, Rhythm, No Edema, No Gallop, No JVD, No Murmur, No Rub GI/Abdominal: Normal Bowel Sounds, No Organomegaly, No Distention, No Abnormal Bruit, No Mass, Pelvis Stable, Tender (left sided) (Male) Exam: Deferred Rectal (Males) Exam: Deferred Back Exam: CVA Tenderness (L) Extremities: Normal Inspection, Normal Range of Motion, Non-Tender, Normal Capi llary Refill, No Pedal Edema Neurological: Alert, Oriented, CN II-XII Intact, Normal Cognition, Abnormal Gait (due to abdominal pain) Psychiatric: Normal Affect, Normal Mood Skin Exam: Warm, Dry, Intact, Normal Color, No Rash Lymphatic: No Adenopathy Course - Vital Signs Last Recorded V/S: Last Vital Signs Temp 36.2 C 10/21/20 08:19 Pulse 73 10/21/20 08:19 Resp 18 10/21/20 08:19 BP 129/81 10/21/20 08:19 Pulse Ox 98 10/21/20 08:19 - Orders/Labs/Meds Labs: Laboratory Tests 10/21/20 10/21/20 Range/Units 08:17 08:17 Urine Color Red (YELLOW) Urine Appearance Slightly cloudy (CLEAR) Urine pH 6.0 (5.0-9.0) Ur Specific [place] >= 1.030 (1.005-1.030) Urine Protein 30 H (NEGATIVE) Urine Glucose (UA) Negative (NEGATIVE) Urine Ketones Negative (NEGATIVE) Urine Occult Blood Large H (NEGATIVE) Urine Nitrite Negative (NEGATIVE) Urine Bilirubin Small H (NEGATIVE) Urine Urobilinogen 1.0 (0.2-1.0) mg/dL Ur Leukocyte Esterase Negative (NEGATIVE) Urine RBC Semi-packed H /HPF Urine WBC 0-5 (0-5/HPF) /HPF Ur Epithelial Cells Few (NOT SEEN) /HPF Urine Bacteria Rare (0-FEW/HPF) /HPF Urine Mucus Few H (NOT SEEN) /LPF Urine Opiates Screen Negative (NEGATIVE) Ur Oxycodone Screen Positive H (NEGATIVE) Urine Methadone Screen Negative (NEGATIVE) Ur Barbiturates Screen Negative (NEGATIVE) U Tricyclic Antidepress Negative (NEGATIVE) Ur Phencyclidine Scrn Negative (NEGATIVE) Ur Amphetamine Screen Negative (NEGATIVE) U Methamphetamines Scrn Negative (NEGATIVE) Urine MDMA Screen Negative (NEGATIVE) U Benzodiazepines Scrn Negative (NEGATIVE) Urine Cocaine Screen Negative (NEGATIVE) U Marijuana (THC) Screen Positive H (NEGATIVE) Meds: Medications Discontinued Medications Generic Name Dose Route Start Last Admin Trade Name Chavo PRN Reason Stop Dose Admin Hydromorphone HCl 1 mg 10/21/20 08:36 10/21/20 08:54 Dilaudid IVPUSH 10/21/20 08:37 1 mg ONETIME ONE Administration Departure - Departure Time of Disposition: 09:02 Disposition: Home, Self-Care 01 Condition: Fair Clinical Impression: Loin pain hematuria syndrome Abdominal pain Qualifiers: Abdominal location: right upper quadrant Qualified Code(s): R10.11 - Right upper quadrant pain - Discharge Information *PRESCRIPTION DRUG MONITORING PROGRAM REVIEWED*: Yes *COPY OF PRESCRIPTION DRUG MONITORING REPORT IN PATIENT NICO: Yes Forms: ED Department Discharge Care Plan Goals: The patient was advised of the examination and lab results during the visit. The patient was given an IV dose of Dilaudid while in the ED. The patient was encouraged to continue to take his current medications as prescribed. The patient was also encouraged to continue to follow-up with specialist care as planned. If the patient has any additional symptoms or concerns, the patient should either return to the emergency department or visit his primary care facility. Sepsis Event Note (ED) - Evaluation Sepsis Screening Result: No Definite Risk - Focused Exam Vital Signs: Vital Signs Temp Pulse Resp BP Pulse Ox 10/21/20 08:19 36.2 C 73 18 129/81 98
== END 2020-10-21 09:10 | disposition home or self-care (01) ==
LOC: DL.ED 07:48
DX: R10.11 Right upper quadrant pain (principal); M54.5 Low back pain; R31.9 Hematuria, unspecified; E66.9 Obesity, unspecified; Z68.42 Body mass index [BMI] 45.0-49.9, adult; Z88.0 Allergy status to penicillin; Z91.030 Bee allergy status; Z88.5 Allergy status to narcotic agent; Z88.8 Allergy status to other drugs, medicaments and biological substances; Z79.899 Other long term (current) drug therapy
CPT/HCPCS: 80305; 81001; 96374; 99284; J1170; 99283

== ENCOUNTER 2020-10-23 09:49 | Observation (INO) | payer MEDICAID ==
[2020-10-23] MEDS ORDERED: HYDROmorphone 1 MG/ML Syringe IVPUSH ONE ×2 (10:40→11:39)
[2020-10-23] MEDS ORDERED: Ondansetron 4 MG/2 ML SDV IV ONE (10:40)
[2020-10-23] MEDS ORDERED: HYDROmorphone 1 MG/ML Syringe IM ONE (10:52)
[2020-10-23] MEDS ORDERED: Ondansetron 4 MG Tab.DIS PO ONE (10:52)
--- NOTE | 2020-10-23 11:16 | EDM.PDOC ---
Scribed by Dian Mendes 10/23/20 1115 for Adenike Evans NP ED HPI GENERAL MEDICAL PROBLEM - General Chief Complaint: Genitourinary Problem Stated Complaint: AMBULANCE Time Seen by Provider: 10/23/20 10:18 Source of Information: Reports: Patient, EMS, EMS Notes Reviewed, RN, RN Notes Reviewed History Limitations: Reports: No Limitations - History of Present Illness INITIAL COMMENTS - FREE TEXT/NARRATIVE: Patient is a 30-year-old male who presents to ER by [facility] with complaint of abdominal and flank pain bilateral. History of loin pain and hematuria syndrome. He is to see a specialty in [place], [place] on November 10 for transplant. He was seen in [facility] yesterday and seen in ER on the 21 of October here. HE has nausea, vomiting bile and low grade fever. He has pain with inspiration. Onset: Gradual Duration: Constant Location: Reports: Abdomen (and flank pain) Quality: Reports: Ache Severity: Severe Improves with: Reports: None Worsens with: Reports: None Associated Symptoms: Reports: No Other Symptoms Lower Abdominal Pain Score (Numeric/FACES): 10 - Related Data Allergies Allergy/AdvReac Type Severity Reaction Status Date / Time amoxicillin [Amoxicillin] Allergy Rash Verified 10/23/20 09:57 bee venom protein (honey bee) Allergy Cannot Verified 10/23/20 09:57 Remember ketorolac tromethamine Allergy Rash Verified 10/23/20 09:57 [From Toradol] metoclopramide [From Reglan] Allergy Agitation Verified 10/23/20 09:57 promethazine HCl Allergy Hallucinati Verified 10/23/20 09:57 [From Phenergan] ons tramadol HCl [From Ultram] Allergy Rash Verified 10/23/20 09:57 Home Meds: Home Meds Tamsulosin HCl [Flomax] 0.4 mg PO TID 05/30/20 [History] oxyCODONE HCl/Acetaminophen [Percocet 10-325 mg Tablet] 1 tab PO Q6H PRN 06/20/20 [History] Ondansetron [Zofran] 4 mg PO Q6H PRN 06/21/20 [History] Acetaminophen [Tylenol] 650 mg PO Q4H PRN tablet 10/08/20 [Rx] Losartan [Cozaar] 25 mg PO DAILY tablet 10/08/20 [Rx] Docusate Sodium [Colace] 100 mg PO BID PRN 10/21/20 [History] Past Medical History - Past Health History Medical/Surgical History: Denies Medical/Surgical History HEENT History: Reports: None Cardiovascular History: Reports: None Respiratory History: Reports: None Gastrointestinal History: Reports: Cholelithiasis, Gastritis, GERD Other Gastrointestinal History: gallbladder pain Genitourinary History: Reports: Renal Calculus, Other (See Below) 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 Hematologic History: Reports: None Immunologic History: Reports: None Oncologic (Cancer) History: Reports: None Dermatologic History: Reports: None - Infectious Disease History Infectious Disease History: Reports: Chicken Pox, Novel Coronavirus - Past Surgical History Head Surgeries/Procedures: Reports: None HEENT Surgical History: Reports: None Cardiovascular Surgical History: Reports: None GI Surgical History: Reports: Appendectomy, Cholecystectomy Male Surgical History: Reports: Circumcision Other Male Surgeries/Procedures: Has had kidney biopsy Musculoskeletal Surgical History: Reports: Other (See Below) Other Musculoskeletal Surgeries/Procedures:: left arm Social & Family History - Family History Family Medical History: No Pertinent Family History - Caffeine Use Caffeine Use: Reports: Coffee Caffeine Use Comment: 32 oz daily - Recreational Drug Use Recreational Drug Use: No - Living Situation & Occupation Living situation: Reports: Single, Alone Occupation: Employed ED ROS GENERAL - Review of Systems Review Of Systems: Comprehensive ROS is negative, except as noted in HPI. ED EXAM, RENAL/ - Physical Exam Exam: See Below Exam Limited By: No Limitations General Appearance: Anxious, Moderate Distress Eye Exam: Bilateral Eye: EOMI, Normal Inspection, PERRL Ears: Normal External Exam, Normal Canal, Hearing Grossly Normal, Normal TMs Nose: Normal Inspection, Normal Mucosa, No Blood Throat/Mouth: Normal Inspection, Normal Lips, Normal Teeth, Normal Gums, Normal Oropharynx, Normal Voice, No Airway Compromise Head: Atraumatic, Normocephalic Neck: Normal Inspection, Supple, Non-Tender, Full Range of Motion Respiratory/Chest: No Respiratory Distress, Lungs Clear, Normal Breath Sounds, No Accessory Muscle Use, Chest Non-Tender Cardiovascular: Normal Peripheral Pulses, Regular Rate, Rhythm, No Edema, No Gallop, No JVD, No Murmur, No Rub GI/Abdominal: Tender, Other (bilateral flank pain) (Male) Exam: Deferred Rectal (Males) Exam: Deferred Back Exam: Normal Inspection, Full Range of Motion, NT Extremities: Normal Inspection, Normal Range of Motion, Non-Tender, Normal Capillary Refill, No Pedal Edema Neurological: Alert, Oriented, CN II-XII Intact, Normal Cognition, Normal Gait, Normal Reflexes, No Motor/Sensory Deficits Psychiatric: Anxious Skin Exam: Warm, Dry, Intact, Normal Color, No Rash Lymphatic: No Adenopathy Course - Vital Signs Last Recorded V/S: Last Vital Signs Temp 97.9 F 10/23/20 09:57 Pulse 62 10/23/20 09:57 Resp 20 10/23/20 09:57 BP 155/91 H 10/23/20 09:57 Pulse Ox 100 10/23/20 09:57 - Orders/Labs/Meds Labs: Laboratory Tests 10/23/20 10/23/20 10/23/20 Range/Units 10:54 10:54 11:40 WBC 8.9 (5.0-10.0) 10^3/uL RBC 5.15 (4.6-6.2) 10^6/uL Hgb 15.5 (14.0-18.0) g/dL Hct 43.8 (40.0-54.0) % MCV 85.0 (80-100) fL MCH 30.1 (27.0-34.0) pg MCHC 35.4 H (33.0-35.0) g/dL Plt Count 293 (150-450) 10^3/uL Neut % (Auto) 67.6 (42.2-75.2) % Lymph % (Auto) 25.1 (20.5-50.1) % George % (Auto) 5.1 (2-8) % Eos % (Auto) 1.9 (1.0-3.0) % Baso % (Auto) 0.3 (0.0-1.0) % Sodium (136-145) mmol/L Potassium (3.5-5.1) mmol/L Chloride (98-107) mmol/L Carbon Dioxide (21-32) mmol/L Anion Gap (7-13) mEq/L BUN (7-18) mg/dL Creatinine (0.70-1.30) mg/dL Est Cr Clr Drug Dosing mL/min Estimated GFR (MDRD) BUN/Creatinine Ratio (No establ ref range) Glucose (74-99) mg/dL Calcium (8.5-10.1) mg/dL Total Bilirubin (0.2-1.0) mg/dL AST (15-37) U/L ALT (16-63) U/L Alkaline Phosphatase (46-116) U/L C-Reactive Protein (0.0-0.9) mg/dL Total Protein (6.4-8.2) g/dL Albumin (3.4-5.0) g/dL Globulin Albumin/Globulin Ratio Urine Color Yellow (YELLOW) Urine Appearance Slightly cloudy (CLEAR) Urine pH 7.5 (5.0-9.0) Ur Specific [place] 1.025 (1.005-1.030) Urine Protein Negative (NEGATIVE) Urine Glucose (UA) Negative (NEGATIVE) Urine Ketones Negative (NEGATIVE) Urine Occult Blood Large H (NEGATIVE) Urine Nitrite Negative (NEGATIVE) Urine Bilirubin Negative (NEGATIVE) Urine Urobilinogen 0.2 (0.2-1.0) mg/dL Ur Leukocyte Esterase Negative (NEGATIVE) Urine RBC >100 H /HPF Urine WBC 0-5 (0-5/HPF) /HPF Ur Epithelial Cells Few (NOT SEEN) /HPF Amorphous Sediment Rare (NOT SEEN) /HPF Urine Bacteria Rare (0-FEW/HPF) /HPF Urine Mucus Not seen (NOT SEEN) /LPF Urine Opiates Screen Positive H (NEGATIVE) Ur Oxycodone Screen Negative (NEGATIVE) Urine Methadone Screen Negative (NEGATIVE) Ur Barbiturates Screen Negative (NEGATIVE) U Tricyclic Antidepress Negative (NEGATIVE) Ur Phencyclidine Scrn Negative (NEGATIVE) Ur Amphetamine Screen Negative (NEGATIVE) U Methamphetamines Scrn Negative (NEGATIVE) Urine MDMA Screen Negative (NEGATIVE) U Benzodiazepines Scrn Negative (NEGATIVE) Urine Cocaine Screen Negative (NEGATIVE) U Marijuana (THC) Screen Positive H (NEGATIVE) Ethyl Alcohol (0) mg/dL 10/23/20 Range/Units 11:40 WBC (5.0-10.0) 10^3/uL RBC (4.6-6.2) 10^6/uL Hgb (14.0-18.0) g/dL Hct (40.0-54.0) % MCV (80-100) fL MCH (27.0-34.0) pg MCHC (33.0-35.0) g/dL Plt Count (150-450) 10^3/uL Neut % (Auto) (42.2-75.2) % Lymph % (Auto) (20.5-50.1) % George % (Auto) (2-8) % Eos % (Auto) (1.0-3.0) % Baso % (Auto) (0.0-1.0) % Sodium 141 (136-145) mmol/L Potassium 4.2 (3.5-5.1) mmol/L Chloride 104 (98-107) mmol/L Carbon Dioxide 29 (21-32) mmol/L Anion Gap 12.2 (7-13) mEq/L BUN 8 (7-18) mg/dL Creatinine 0.73 (0.70-1.30) mg/dL Est Cr Clr Drug Dosing 163.88 mL/min Estimated GFR (MDRD) > 60 BUN/Creatinine Ratio 11.0 (No establ ref range) Glucose 92 (74-99) mg/dL Calcium 8.4 L (8.5-10.1) mg/dL Total Bilirubin 0.9 (0.2-1.0) mg/dL AST 14 L (15-37) U/L ALT 34 (16-63) U/L Alkaline Phosphatase 72 (46-116) U/L C-Reactive Protein 0.5 (0.0-0.9) mg/dL Total Protein 7.4 (6.4-8.2) g/dL Albumin 3.9 (3.4-5.0) g/dL Globulin 3.5 Albumin/Globulin Ratio 1.1 Urine Color (YELLOW) Urine Appearance (CLEAR) Urine pH (5.0-9.0) Ur Specific [place] (1.005-1.030) Urine Protein (NEGATIVE) Urine Glucose (UA) (NEGATIVE) Urine Ketones (NEGATIVE) Urine Occult Blood (NEGATIVE) Urine Nitrite (NEGATIVE) Urine Bilirubin (NEGATIVE) Urine Urobilinogen (0.2-1.0) mg/dL Ur Leukocyte Esterase (NEGATIVE) Urine RBC /HPF Urine WBC (0-5/HPF) /HPF Ur Epithelial Cells (NOT SEEN) /HPF Amorphous Sediment (NOT SEEN) /HPF Urine Bacteria (0-FEW/HPF) /HPF Urine Mucus (NOT SEEN) /LPF Urine Opiates Screen (NEGATIVE) Ur Oxycodone Screen (NEGATIVE) Urine Methadone Screen (NEGATIVE) Ur Barbiturates Screen (NEGATIVE) U Tricyclic Antidepress (NEGATIVE) Ur Phencyclidine Scrn (NEGATIVE) Ur Amphetamine Screen (NEGATIVE) U Methamphetamines Scrn (NEGATIVE) Urine MDMA Screen (NEGATIVE) U Benzodiazepines Scrn (NEGATIVE) Urine Cocaine Screen (NEGATIVE) U Marijuana (THC) Screen (NEGATIVE) Ethyl Alcohol < 3 (0) mg/dL Meds: Medications Discontinued Medications Generic Name Dose Route Start Last Admin Trade Name Freq PRN Reason Stop Dose Admin Hydromorphone HCl 1 mg 10/23/20 10:40 Dilaudid IVPUSH 10/23/20 10:41 ONETIME ONE Hydromorphone HCl 1 mg 10/23/20 10:52 10/23/20 11:00 Dilaudid IM 10/23/20 10:53 1 mg ONETIME ONE Administration Hydromorphone HCl 1 mg 10/23/20 11:39 10/23/20 12:02 Dilaudid IVPUSH 10/23/20 11:40 1 mg ONETIME ONE Administration Ondansetron HCl 4 mg 10/23/20 10:40 Zofran IV 10/23/20 10:41 ONETIME ONE Ondansetron HCl 4 mg 10/23/20 10:52 10/23/20 11:00 Zofran Odt PO 10/23/20 10:53 4 mg ONETIME ONE Administration - Re-Assessments/Exams Free Text/Narrative Re-Assessment/Exam: 10/23/20 12:44 Discussed patient case with Dr. Marlow in the ER at [facility] who states the patient does not need to be transferred. Patient and mother requests to be transferred to [facility] where Dr. Berumen is. Patient would be seen for pain control and Dr. Marlow states he can call Dr. Berumen's office on Sunday to get an appointment. Patient states if he is discharged, he will more than likely be back as he cannot tolerate the pain at this time. 10/23/20 12:47 10/23/20 12:49 Discussed patient case with Dr. Delong, hospitalist at [facility], who agreed to accept the patient for observation admission. Departure - Departure Time of Disposition: 11:14 Disposition: Refer to Observation Condition: Fair Clinical Impression: Loin pain hematuria syndrome, HSP (Henoch Schonlein purpura) - Discharge Information *PRESCRIPTION DRUG MONITORING PROGRAM REVIEWED*: No *COPY OF PRESCRIPTION DRUG MONITORING REPORT IN PATIENT NICO: No Forms: ED Department Discharge Additional Instructions: Continue taking home medications as prescribed Follow-up with your specialty appointment on November 10 drink plenty of water Sepsis Event Note (ED) - Evaluation Sepsis Screening Result: No Definite Risk - Focused Exam Vital Signs: Vital Signs Temp Pulse Resp BP Pulse Ox 10/23/20 09:57 97.9 F 62 20 155/91 H 100 I have read and agree with the documentation that has been completed regarding this visit. By signing this record, I attest that the documentation was completed in my physical presence and is an accurate record of the encounter.
[2020-10-23 12:04] LABS: ANION GAP 12.2 mEq/L (7-13); CHLORIDE,CL 104 mmol/L (98-107); SODIUM,NA 141 mmol/L (136-145)
[2020-10-23] MEDS ORDERED: Ondansetron 4 MG Tab.DIS PO PRN (13:21)
[2020-10-23] MEDS ORDERED: Ondansetron 4 MG/2 ML SDV IVPUSH PRN (13:21)
[2020-10-23] MEDS ORDERED: Morphine 2 MG/ML SYRINGE IVPUSH PRN (13:21)
[2020-10-23] MEDS ORDERED: Docusate Sodium 100 MG Cap PO PRN (13:26)
--- NOTE | 2020-10-23 14:02 | PCM.HP ---
H&P History of Present Illness - General Date of Service: 10/23/20 Admit Problem/Dx: Admission Diagnosis/Problem Admission Diagnosis/Problem Pain Source of Information: Patient History Limitations: Reports: No Limitations - History of Present Illness Initial Comments - Free Text/Narative: Patient is a 30-year-old male with a medical history of loin pain-hematuria syndrome, Henoch Schonlein purpura, chronic opioid use who presented to the ER with complaints of bilateral flank pain, hematuria, nausea and vomiting. Patient reports developing above symptoms for the past 1 to 2 weeks. He thinks that he is having a flare of his loin pain-hematuria syndrome which usually o ccurs about every month. He has been seen in the ER at [facility] about 3 times in the past 1 month including yesterday for these complaints. He was given pain medications and sent home. He reports passing a few clots in urine. He describes his pain as sharp, severe and excruciating. Patient has an appointment in [facility] on 10 November for an autotransplant procedure for his kidney. This is expected to solve his problems. Vital signs in the ER were unremarkable. Labs significant for hematuria with red blood cells in urinalysis, U tox positive for opioids and marijuana. Lower Abdominal Pain Score (Numeric/FACES): 10 - Related Data Allergies/Adverse Reactions: Allergies Allergy/AdvReac Type Severity Reaction Status Date / Time amoxicillin [Amoxicillin] Allergy Rash Verified 10/23/20 09:57 bee venom protein (honey bee) Allergy Cannot Verified 10/23/20 09:57 Remember ketorolac tromethamine Allergy Rash Verified 10/23/20 09:57 [From Toradol] metoclopramide [From Reglan] Allergy Agitation Verified 10/23/20 09:57 promethazine HCl Allergy Hallucinati Verified 10/23/20 09:57 [From Phenergan] ons tramadol HCl [From Ultram] Allergy Rash Verified 10/23/20 09:57 Home Medications: Home Meds Tamsulosin HCl [Flomax] 0.4 mg PO BID 05/30/20 [History] oxyCODONE HCl/Acetaminophen [Percocet 10-325 mg Tablet] 1 tab PO Q6H PRN 06/20/20 [History] Ondansetron [Zofran] 4 mg PO TID PRN 10/26/20 [History] Acetaminophen [Tylenol] 650 mg PO Q4H PRN tablet 10/08/20 [Rx] Losartan [Cozaar] 25 mg PO DAILY tablet 10/08/20 [Rx] Docusate Sodium [Colace] 100 mg PO BID PRN 10/21/20 [History] Past Medical History - Past Health History Medical/Surgical History: Denies Medical/Surgical History HEENT History: Reports: None Cardiovascular History: Reports: None Respiratory History: Reports: None Gastrointestinal History: Reports: Cholelithiasis, Gastritis, GERD Other Gastrointestinal History: gallbladder pain Genitourinary History: Reports: Renal Calculus, Other (See Below) 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 Hematologic History: Reports: None Immunologic History: Reports: None Oncologic (Cancer) History: Reports: None Dermatologic History: Reports: None - Infectious Disease History Infectious Disease History: Reports: Chicken Pox, Novel Coronavirus - Past Surgical History Head Surgeries/Procedures: Reports: None HEENT Surgical History: Reports: None Cardiovascular Surgical History: Reports: None GI Surgical History: Reports: Appendectomy, Cholecystectomy Male Surgical History: Reports: Circumcision Other Male Surgeries/Procedures: Has had kidney biopsy Musculoskeletal Surgical History: Reports: Other (See Below) Other Musculoskeletal Surgeries/Procedures:: left arm Social & Family History - Family History Family Medical History: No Pertinent Family History - Caffeine Use Caffeine Use: Reports: Coffee Caffeine Use Comment: 32 oz daily - Recreational Drug Use Recreational Drug Use: No - Living Situation & Occupation Living situation: Reports: Single, Alone Occupation: Employed H&P Review of Systems - Review of Systems: Review Of Systems: See Below General: Reports: No Symptoms HEENT: Reports: No Symptoms Pulmonary: Reports: No Symptoms Cardiovascular: Reports: No Symptoms Gastrointestinal: Reports: Nausea, Vomiting Genitourinary: Reports: Hematuria, Flank Pain Musculoskeletal: Reports: No Symptoms Skin: Reports: No Symptoms Psychiatric: Reports: No Symptoms Neurological: Reports: No Symptoms Hematologic/Lymphatic: Reports: No Symptoms Immunologic: Reports: No Symptoms Exam - Exam Exam: See Below - Vital Signs Vital Signs: Last Vital Signs Temp 97.9 F 10/23/20 09:57 Pulse 62 02/27/21 09:57 Resp 20 10/23/20 09:57 BP 155/91 H 10/23/20 09:57 Pulse Ox 100 10/23/20 09:57 Weight: 366 lb - Exam General: Alert, Oriented, 4 HEENT: PERRLA, Hearing Intact, Mucosa Moist & [place], Nares Patent, Normal Nasal Septum, Posterior Pharynx Clear, Conjunctiva Clear, EOMI, EACs Clear, TMs Clear Neck: Supple, Trachea Midline, 2 Lungs: Clear to Auscultation, Normal Respiratory Effort Cardiovascular: Regular Rate, Regular Rhythm GI/Abdominal Exam: Tender Back Exam: Normal Inspection, Full Range of Motion, NT Extremities: Normal Inspection, Normal Range of Motion, Non-Tender, No Pedal Edema, Normal Capillary Refill Skin: Warm, Dry, Intact Neurological: Cranial Nerves Intact, Reflexes Equal Bilateral Neuro Extensive - Mental Status: Alert, Oriented x3, Normal Mood/Affect, Normal Cognition Neuro Extensive - Motor, Sensory, Reflexes: CN II-XII Intact, Normal Gait, Normal Reflexes Psychiatric: Alert, Normal Affect, Normal Mood - Patient Data Lab Results Last 24 hrs: Laboratory Results - last 24 hr 10/23/20 10/23/20 10/23/20 Range/Units 10:54 10:54 11:40 WBC 8.9 (5.0-10.0) 10^3/uL RBC 5.15 (4.6-6.2) 10^6/uL Hgb 15.5 (14.0-18.0) g/dL Hct 43.8 (40.0-54.0) % MCV 85.0 (80-100) fL MCH 30.1 (27.0-34.0) pg MCHC 35.4 H (33.0-35.0) g/dL Plt Count 293 (150-450) 10^3/uL Neut % (Auto) 67.6 (42.2-75.2) % Lymph % (Auto) 25.1 (20.5-50.1) % Saline % (Auto) 5.1 (2-8) % Eos % (Auto) 1.9 (1.0-3.0) % Baso % (Auto) 0.3 (0.0-1.0) % Sodium (136-145) mmol/L Potassium (3.5-5.1) mmol/L Chloride (98-107) mmol/L Carbon Dioxide (21-32) mmol/L Anion Gap (7-13) mEq/L BUN (7-18) mg/dL Creatinine (0.70-1.30) mg/dL Est Cr Clr Drug Dosing mL/min Estimated GFR (MDRD) BUN/Creatinine Ratio (No establ ref range) Glucose (74-99) mg/dL Calcium (8.5-10.1) mg/dL Total Bilirubin (0.2-1.0) mg/dL AST (15-37) U/L ALT (16-63) U/L Alkaline Phosphatase (46-116) U/L C-Reactive Protein (0.0-0.9) mg/dL Total Protein (6.4-8.2) g/dL Albumin (3.4-5.0) g/dL Globulin Albumin/Globulin Ratio Urine Color Yellow (YELLOW) Urine Appearance Slightly cloudy (CLEAR) Urine pH 7.5 (5.0-9.0) Ur Specific [place] 1.025 (1.005-1.030) Urine Protein Negative (NEGATIVE) Urine Glucose (UA) Negative (NEGATIVE) Urine Ketones Negative (NEGATIVE) Urine Occult Blood Large H (NEGATIVE) Urine Nitrite Negative (NEGATIVE) Urine Bilirubin Negative (NEGATIVE) Urine Urobilinogen 0.2 (0.2-1.0) mg/dL Ur Leukocyte Esterase Negative (NEGATIVE) Urine RBC >100 H /HPF Urine WBC 0-5 (0-5/HPF) /HPF Ur Epithelial Cells Few (NOT SEEN) /HPF Amorphous Sediment Rare (NOT SEEN) /HPF Urine Bacteria Rare (0-FEW/HPF) /HPF Urine Mucus Not seen (NOT SEEN) /LPF Urine Opiates Screen Positive H (NEGATIVE) Ur Oxycodone Screen Negative (NEGATIVE) Urine Methadone Screen Negative (NEGATIVE) Ur Barbiturates Screen Negative (NEGATIVE) U Tricyclic Antidepress Negative (NEGATIVE) Ur Phencyclidine Scrn Negative (NEGATIVE) Ur Amphetamine Screen Negative (NEGATIVE) U Methamphetamines Scrn Negative (NEGATIVE) Urine MDMA Screen Negative (NEGATIVE) U Benzodiazepines Scrn Negative (NEGATIVE) Urine Cocaine Screen Negative (NEGATIVE) U Marijuana (THC) Screen Positive H (NEGATIVE) Ethyl Alcohol (0) mg/dL 10/23/20 Range/Units 11:40 WBC (5.0-10.0) 10^3/uL RBC (4.6-6.2) 10^6/uL Hgb (14.0-18.0) g/dL Hct (40.0-54.0) % MCV (80-100) fL MCH (27.0-34.0) pg MCHC (33.0-35.0) g/dL Plt Count (150-450) 10^3/uL Neut % (Auto) (42.2-75.2) % Lymph % (Auto) (20.5-50.1) % Saline % (Auto) (2-8) % Eos % (Auto) (1.0-3.0) % Baso % (Auto) (0.0-1.0) % Sodium 141 (136-145) mmol/L Potassium 4.2 (3.5-5.1) mmol/L Chloride 104 (98-107) mmol/L Carbon Dioxide 29 (21-32) mmol/L Anion Gap 12.2 (7-13) mEq/L BUN 8 (7-18) mg/dL Creatinine 0.73 (0.70-1.30) mg/dL Est Cr Clr Drug Dosing 163.88 mL/min Estimated GFR (MDRD) > 60 BUN/Creatinine Ratio 11.0 (No establ ref range) Glucose 92 (74-99) mg/dL Calcium 8.4 L (8.5-10.1) mg/dL Total Bilirubin 0.9 (0.2-1.0) mg/dL AST 14 L (15-37) U/L ALT 34 (16-63) U/L Alkaline Phosphatase 72 (46-116) U/L C-Reactive Protein 0.5 (0.0-0.9) mg/dL Total Protein 7.4 (6.4-8.2) g/dL Albumin 3.9 (3.4-5.0) g/dL Globulin 3.5 Albumin/Globulin Ratio 1.1 Urine Color (YELLOW) Urine Appearance (CLEAR) Urine pH (5.0-9.0) Ur Specific [place] (1.005-1.030) Urine Protein (NEGATIVE) Urine Glucose (UA) (NEGATIVE) Urine Ketones (NEGATIVE) Urine Occult Blood (NEGATIVE) Urine Nitrite (NEGATIVE) Urine Bilirubin (NEGATIVE) Urine Urobilinogen (0.2-1.0) mg/dL Ur Leukocyte Esterase (NEGATIVE) Urine RBC /HPF Urine WBC (0-5/HPF) /HPF Ur Epithelial Cells (NOT SEEN) /HPF Amorphous Sediment (NOT SEEN) /HPF Urine Bacteria (0-FEW/HPF) /HPF Urine Mucus (NOT SEEN) /LPF Urine Opiates Screen (NEGATIVE) Ur Oxycodone Screen (NEGATIVE) Urine Methadone Screen (NEGATIVE) Ur Barbiturates Screen (NEGATIVE) U Tricyclic Antidepress (NEGATIVE) Ur Phencyclidine Scrn (NEGATIVE) Ur Amphetamine Screen (NEGATIVE) U Methamphetamines Scrn (NEGATIVE) Urine MDMA Screen (NEGATIVE) U Benzodiazepines Scrn (NEGATIVE) Urine Cocaine Screen (NEGATIVE) U Marijuana (THC) Screen (NEGATIVE) Ethyl Alcohol < 3 (0) mg/dL Result Diagrams: 10/23/20 11:40 10/23/20 11:40 Problem List Initiated/Reviewed/Updated: Yes Orders Last 24hrs: Active Orders 24 hr Category Date Time Status Admission Diagnosis [ADT] Stat ADT 10/23/20 12:50 Ordered Patient Status [ADT] Routine ADT 10/23/20 12:50 Active Ambulate [RC] PER UNIT ROUTINE Care 10/23/20 13:22 Active Oxygen Therapy [RC] PRN Care 10/23/20 13:22 Active Up ad Mary Ellen [RC] ASDIRECTED Care 10/23/20 13:21 Active VTE/DVT Education [RC] PER UNIT ROUTINE Care 10/23/20 13:22 Active Vital Signs [RC] Q4H Care 10/23/20 13:22 Active Regular Diet [DIET] Diet 10/23/20 Lunch Active Acetaminophen [Tylenol Extra Strength] Med 10/23/20 13:30 Active 1,000 mg PO Q8H Docusate Sodium [Colace] Med 10/23/20 13:26 Pending 100 mg PO BID PRN HYDROmorphone [Dilaudid] Med 10/23/20 14:00 Ordered 2 mg IVPUSH Q2H PRN Losartan [Cozaar] Med 10/24/20 09:00 Pending 25 mg PO DAILY Ondansetron [Zofran ODT] Med 10/23/20 13:21 Pending 4 mg PO Q4H PRN Ondansetron [Zofran] Med 10/23/20 13:21 Active 4 mg IVPUSH Q4H PRN Sodium Chloride 0.9% @ 50 MLS/HR(1000ml) Med 10/23/20 14:15 Ordered Sodium Chloride 0.9% [Normal Saline] 1,000 ml IV ASDIRECTED Tamsulosin [Flomax] Med 10/23/20 21:00 Pending 0.4 mg PO BID oxyCODONE Med 10/23/20 13:21 Active 10 mg PO Q6H PRN Resuscitation Status Routine Resus Stat 10/23/20 13:21 Ordered Medication Orders Acetaminophen (Tylenol Extra Strength) 1,000 mg PO Q8H BRITTANY Docusate Sodium (Colace) 100 mg PO BID PRN PRN Reason: Constipation Hydromorphone HCl (Dilaudid) 2 mg IVPUSH Q2H PRN PRN Reason: Pain (severe 7-10) Losartan Potassium (Cozaar) 25 mg PO DAILY [facility] Ondansetron HCl (Zofran Odt) 4 mg PO Q4H PRN PRN Reason: nausea, able to take PO Ondansetron HCl (Zofran) 4 mg IVPUSH Q4H PRN PRN Reason: Nausea/Vomiting Oxycodone HCl (Oxycodone) 10 mg PO Q6H PRN PRN Reason: Pain (moderate 4-6) Tamsulosin HCl (Flomax) 0.4 mg PO BID [facility] Assessment/Plan Comment:: Loin pain-hematuria syndrome Flank pain Start on IV fluids normal saline at 75 cc/h As needed analgesics Marijuana use Counseled on cessation Hypertension Resume home antihypertensives DVT prophylaxis: None due to hematuria, ambulate, SCD CODE STATUS: Full code
[2020-10-23] MEDS ORDERED: Sodium Chloride 0.9% 1,000 ML IV SCH (14:15)
[2020-10-23] MEDS ORDERED: Sodium Chloride 0.9% 10 ML Syringe FLUSH PRN (14:15)
[2020-10-23] MEDS: HYDROmorphone 1 MG/ML Syringe IVPUSH PRN ×5 (14:29→22:21)
[2020-10-23] MEDS: Acetaminophen 500 MG Tab PO SCH ×2 (14:41→22:03)
[2020-10-23] MEDS: oxyCODONE 5 MG Tab PO PRN ×2 (15:37→22:26)
[2020-10-23] MEDS: Tamsulosin 0.4 MG Cap.ER PO SCH (22:03)
[2020-10-24] MEDS: HYDROmorphone 1 MG/ML Syringe IVPUSH PRN ×7 (00:17→12:24)
[2020-10-24] MEDS: Acetaminophen 500 MG Tab PO SCH (05:35)
[2020-10-24 06:29] LABS: ANION GAP 12.9 mEq/L (7-13); CHLORIDE,CL 103 mmol/L (98-107); SODIUM,NA 139 mmol/L (136-145)
[2020-10-24] MEDS: oxyCODONE 5 MG Tab PO PRN ×2 (06:29→12:22)
[2020-10-24] MEDS ORDERED: Losartan 25 MG Tab PO SCH ×2 (09:00→21:00)
[2020-10-24] MEDS: Tamsulosin 0.4 MG Cap.ER PO SCH (09:03)
[2020-10-24 11:32] VITALS: BP 119/59; PULSE 70
--- NOTE | 2020-10-24 11:47 | PCM.DCSUM1 ---
Discharge Summary - Hospital Course Free Text/Narrative:: Patient is a 30-year-old male with a medical history of loin pain-hematuria syndrome, Henoch Schonlein purpura, chronic opioid use who presented to the ER with complaints of bilateral flank pain, hematuria, nausea and vomiting thought to be due to a flare of his loin pain-hematuria syndrome which usually occurs about every month. Patient has an appointment in [facility] on 10 November for an autotransplant procedure for his kidney. This is expected to solve his problems. Vital signs in the ER were unremarkable. Labs significant for hematuria with red blood cells in urinalysis, U tox positive for opioids and marijuana. He was transferred to [facility] due to need for more specialized pain control as his pain could not be adequately managed here. Diagnosis: Stroke: No - Discharge Data Discharge Date: 10/24/20 Discharge Disposition: DC/Tfer to Acute Hospital 02 Condition: Good - Referral to Home Health Primary Care Physician: Fatoumata Faria MD - Discharge Plan *PRESCRIPTION DRUG MONITORING PROGRAM REVIEWED*: Not Applicable *COPY OF PRESCRIPTION DRUG MONITORING REPORT IN PATIENT NICO: Not Applicable Home Medications: Home Meds Tamsulosin HCl [Flomax] 0.4 mg PO BID 05/30/20 [History] oxyCODONE HCl/Acetaminophen [Percocet 10-325 mg Tablet] 1 tab PO Q6H PRN 06/20/20 [History] Ondansetron [Zofran] 4 mg PO TID PRN 06/21/20 [History] Acetaminophen [Tylenol] 650 mg PO Q4H PRN tablet 10/08/20 [Rx] Docusate Sodium [Colace] 100 mg PO BID PRN 10/21/20 [History] Losartan [Cozaar] 25 mg PO BEDTIME 10/24/20 [History] Forms: ED Department Discharge Referrals: PCP,None [Ordering Only Provider] - - Discharge Summary/Plan Comment DC Time >30 min.: Yes - General Info Date of Service: 10/24/20 Admission Dx/Problem (Free Text: Admission Diagnosis/Problem Admission Diagnosis/Problem Pain Subjective Update: Patient seen and examined today. Still complaining of bilateral flank pain which is severe. Patient has been getting 2 mg IV Dilaudid every 2 hours including 10 mg of oxycodone p.o. every 6 hours. This appears not to have made much of a difference to his pain. - Review of Systems General: Reports: No Symptoms HEENT: Reports: No Symptoms Pulmonary: Reports: No Symptoms Cardiovascular: Reports: No Symptoms Gastrointestinal: Reports: No Symptoms Genitourinary: Reports: Pain, Hematuria Musculoskeletal: Reports: No Symptoms Skin: Reports: No Symptoms Neurological: Reports: No Symptoms Psychiatric: Reports: No Symptoms - Patient Data Vitals - Most Recent: Last Vital Signs Temp 97.4 F 10/24/20 11:31 Pulse 70 10/24/20 11:31 Resp 18 10/24/20 11:31 BP 119/59 L 10/24/20 11:31 Pulse Ox 98 10/24/20 11:31 Weight - Most Recent: 298 lb 1.6 oz I&O - Last 24 hours: Intake & Output 10/23/20 10/24/20 10/24/20 22:59 06:59 14:59 Intake Total 840 Balance 840 Lab Results - Last 24 hrs: Laboratory Results - last 24 hr 10/23/20 10/23/20 10/24/20 Range/Units 10:54 11:40 05:59 WBC 8.4 (5.0-10.0) 10^3/uL RBC 4.78 (4.6-6.2) 10^6/uL Hgb 14.3 (14.0-18.0) g/dL Hct 41.2 (40.0-54.0) % MCV 86.2 (80-100) fL MCH 29.9 (27.0-34.0) pg MCHC 34.7 (33.0-35.0) g/dL Plt Count 269 (150-450) 10^3/uL Sodium 141 (136-145) mmol/L Potassium 4.2 (3.5-5.1) mmol/L Chloride 104 (98-107) mmol/L Carbon Dioxide 29 (21-32) mmol/L Anion Gap 12.2 (7-13) mEq/L BUN 8 (7-18) mg/dL Creatinine 0.73 (0.70-1.30) mg/dL Est Cr Clr Drug Dosing 163.88 mL/min Estimated GFR (MDRD) > 60 BUN/Creatinine Ratio 11.0 (No establ ref range) Glucose 92 (74-99) mg/dL Calcium 8.4 L (8.5-10.1) mg/dL Total Bilirubin 0.9 (0.2-1.0) mg/dL AST 14 L (15-37) U/L ALT 34 (16-63) U/L Alkaline Phosphatase 72 (46-116) U/L C-Reactive Protein 0.5 (0.0-0.9) mg/dL Total Protein 7.4 (6.4-8.2) g/dL Albumin 3.9 (3.4-5.0) g/dL Globulin 3.5 Albumin/Globulin Ratio 1.1 Urine Opiates Screen Positive H (NEGATIVE) Ur Oxycodone Screen Negative (NEGATIVE) Urine Methadone Screen Negative (NEGATIVE) Ur Barbiturates Screen Negative (NEGATIVE) U Tricyclic Antidepress Negative (NEGATIVE) Ur Phencyclidine Scrn Negative (NEGATIVE) Ur Amphetamine Screen Negative (NEGATIVE) U Methamphetamines Scrn Negative (NEGATIVE) Urine MDMA Screen Negative (NEGATIVE) U Benzodiazepines Scrn Negative (NEGATIVE) Urine Cocaine Screen Negative (NEGATIVE) U Marijuana (THC) Screen Positive H (NEGATIVE) Ethyl Alcohol < 3 (0) mg/dL 10/24/20 Range/Units 05:59 WBC (5.0-10.0) 10^3/uL RBC (4.6-6.2) 10^6/uL Hgb (14.0-18.0) g/dL Hct (40.0-54.0) % MCV (80-100) fL MCH (27.0-34.0) pg MCHC (33.0-35.0) g/dL Plt Count (150-450) 10^3/uL Sodium 139 (136-145) mmol/L Potassium 3.9 (3.5-5.1) mmol/L Chloride 103 (98-107) mmol/L Carbon Dioxide 27 (21-32) mmol/L Anion Gap 12.9 (7-13) mEq/L BUN 10 (7-18) mg/dL Creatinine 0.73 (0.70-1.30) mg/dL Est Cr Clr Drug Dosing 163.88 mL/min Estimated GFR (MDRD) > 60 BUN/Creatinine Ratio (No establ ref range) Glucose 89 (74-99) mg/dL Calcium 8.1 L (8.5-10.1) mg/dL Total Bilirubin (0.2-1.0) mg/dL AST (15-37) U/L ALT (16-63) U/L Alkaline Phosphatase (46-116) U/L C-Reactive Protein (0.0-0.9) mg/dL Total Protein (6.4-8.2) g/dL Albumin (3.4-5.0) g/dL Globulin Albumin/Globulin Ratio Urine Opiates Screen (NEGATIVE) Ur Oxycodone Screen (NEGATIVE) Urine Methadone Screen (NEGATIVE) Ur Barbiturates Screen (NEGATIVE) U Tricyclic Antidepress (NEGATIVE) Ur Phencyclidine Scrn (NEGATIVE) Ur Amphetamine Screen (NEGATIVE) U Methamphetamines Scrn (NEGATIVE) Urine MDMA Screen (NEGATIVE) U Benzodiazepines Scrn (NEGATIVE) Urine Cocaine Screen (NEGATIVE) U Marijuana (THC) Screen (NEGATIVE) Ethyl Alcohol (0) mg/dL Med Orders - Current: Current Medications Acetaminophen (Tylenol Extra Strength) 1,000 mg PO Q8H [facility] Last Admin: 10/24/20 05:35 Dose: Not Given Documented by: Docusate Sodium (Colace) 100 mg PO BID PRN PRN Reason: Constipation Hydromorphone HCl (Dilaudid) 2 mg IVPUSH Q2H PRN PRN Reason: Pain (severe 7-10) Last Admin: 10/24/20 10:39 Dose: 2 mg Documented by: Sodium Chloride (Normal Saline) 1,000 mls @ 50 mls/hr IV ASDIRECTED [facility] Last Admin: 10/23/20 15:39 Dose: 50 mls/hr Documented by: Losartan Potassium (Cozaar) 25 mg PO BEDTIME [facility] Ondansetron HCl (Zofran Odt) 4 mg PO Q4H PRN PRN Reason: nausea, able to take PO Ondansetron HCl (Zofran) 4 mg IVPUSH Q4H PRN PRN Reason: Nausea/Vomiting Last Admin: 10/24/20 02:27 Dose: 4 mg Documented by: Oxycodone HCl (Oxycodone) 10 mg PO Q6H PRN PRN Reason: Pain (moderate 4-6) Last Admin: 10/24/20 06:29 Dose: 10 mg Documented by: Sodium Chloride (Saline Flush) 10 ml FLUSH ASDIRECTED PRN PRN Reason: Keep Vein Open Tamsulosin HCl (Flomax) 0.4 mg PO BID [facility] Last Admin: 10/24/20 09:03 Dose: 0.4 mg Documented by: Discontinued Medications Hydromorphone HCl (Dilaudid) 1 mg IVPUSH ONETIME ONE Stop: 10/23/20 10:41 Last Admin: 10/23/20 15:49 Dose: Not Given Documented by: Hydromorphone HCl (Dilaudid) 1 mg IM ONETIME ONE Stop: 10/23/20 10:53 Last Admin: 10/23/20 11:00 Dose: 1 mg Documented by: Hydromorphone HCl (Dilaudid) 1 mg IVPUSH ONETIME ONE Stop: 10/23/20 11:40 Last Admin: 10/23/20 12:02 Dose: 1 mg Documented by: Losartan Potassium (Cozaar) 25 mg PO DAILY [facility] Morphine Sulfate (Morphine) 2 mg IVPUSH Q2H PRN PRN Reason: Pain (severe 7-10) Ondansetron HCl (Zofran) 4 mg IV ONETIME ONE Stop: 10/23/20 10:41 Last Admin: 10/23/20 15:49 Dose: Not Given Documented by: Ondansetron HCl (Zofran Odt) 4 mg PO ONETIME ONE Stop: 10/23/20 10:53 Last Admin: 10/23/20 11:00 Dose: 4 mg Documented by: - Exam General: Reports: Alert, Oriented HEENT: Reports: Pupils Equal, Pupils Reactive, EOMI, Mucous Membr. Moist/[place] Neck: Reports: Supple Lungs: Reports: Clear to Auscultation, Normal Respiratory Effort Cardiovascular: Reports: Regular Rate, Regular Rhythm GI/Abdominal Exam: Normal Bowel Sounds, Soft, Non-Tender, No Organomegaly, No Distention, No Abnormal Bruit, No Mass, Pelvis Stable (Male) Exam: Other (Bilateral flank tenderness) Back Exam: Reports: Normal Inspection, Full Range of Motion Extremities: Normal Inspection, Normal Range of Motion, Non-Tender, No Pedal Edema, Normal Capillary Refill Skin: Reports: Warm, Dry, Intact Neurological: Reports: No New Focal Deficit Psy/Mental Status: Reports: Alert, Normal Affect, Normal Mood
== END 2020-10-24 12:45 ==
LOC: DL.ED 09:49 → DL.MS 12:50
PROVIDERS: ADMIT Internal Medicine; ATTEND Internal Medicine
DX: R10.30 Lower abdominal pain, unspecified (principal); R31.9 Hematuria, unspecified; R11.2 Nausea with vomiting, unspecified; F12.90 Cannabis use, unspecified, uncomplicated; D69.0 Allergic purpura; I10 Essential (primary) hypertension; N28.89 Other specified disorders of kidney and ureter; E66.9 Obesity, unspecified; Z68.41 Body mass index [BMI] 40.0-44.9, adult; Z88.1 Allergy status to other antibiotic agents; Z88.6 Allergy status to analgesic agent; Z91.030 Bee allergy status; Z88.8 Allergy status to other drugs, medicaments and biological substances; Z86.16 Personal history of COVID-19; Z87.442 Personal history of urinary calculi; Z79.899 Other long term (current) drug therapy; Z98.890 Other specified postprocedural states
CPT/HCPCS: 36415; 80048; 80053; 80305; 80307; 81001; 85025; 85027; 86140; 96372; 96374; 96375; 96376; 99284; A9270; G0378; J1170; J2405; J7030

== ENCOUNTER 2020-10-25 11:07 | Observation (INO) | payer MEDICAID ==
--- NOTE | 2020-10-25 11:32 | EDM.PDOC ---
ED HPI GENERAL MEDICAL PROBLEM - General Chief Complaint: Flank Pain Stated Complaint: ABDOMINAL & KIDNEY PAIN Time Seen by Provider: 10/25/20 11:32 Source of Information: Reports: Patient, Retirement Records, Old Records, RN History Limitations: Reports: No Limitations - History of Present Illness INITIAL COMMENTS - FREE TEXT/NARRATIVE: Pt presents to ER with c/o left flank pain and gross hematuria. Pt states he was admitted here on 10/21/20 for the same symptoms which were attributed to his Loin Pain Hematuria Syndrome. He was transferred to [facility] on 10/23/20 and left there [place] on 10/24/20. He claims the hospitalist told him that he had never heard of the pt's condition and that he was not going to treat the pt's pain. The pt has been followed by nephrology and urology at [facility] and has been seen in [place], referred to [place] and subsequently referred to [facility] for auto- transplant kidney procedure. At the past few pain and hematuria flare ups the [facility] regional specialist (nephrology and urology) have advised that the pt no longer needs to be transferred to a higher level of care, and his pain can be managed with IV hydration and pain control locally. The pt clearly has tolerance if not habituation to opiates at this point which can make him a challenge to care for. However, the does present with gross hematuria which has been exhaustively worked up over the past year or so. Pt denies fever, chills, or rash. He admits to nausea and vomiting with diaphoresis when the pain is at its worst. Pt rates the pain 8/10 currently, but 10/10 at maximal intensity. Pt states he has had no relief with Oxycodone and Zofran at home. Duration: Recurring Location: Reports: Other (Left flank, abdomen) Quality: Reports: Same as Previous Episode Severity: Severe Improves with: Reports: None Worsens with: Reports: None Bilateral Flank Pain Score (Numeric/FACES): 10 - Related Data Allergies Allergy/AdvReac Type Severity Reaction Status Date / Time amoxicillin [Amoxicillin] Allergy Rash Verified 10/25/20 11:29 bee venom protein (honey bee) Allergy Cannot Verified 10/25/20 11:29 Remember ketorolac tromethamine Allergy Rash Verified 10/25/20 11:29 [From Toradol] metoclopramide [From Reglan] Allergy Agitation Verified 10/25/20 11:29 promethazine HCl Allergy Hallucinati Verified 10/25/20 11:29 [From Phenergan] ons tramadol HCl [From Ultram] Allergy Rash Verified 10/25/20 11:29 Home Meds: Home Meds Tamsulosin HCl [Flomax] 0.4 mg PO BID 05/30/20 [History] oxyCODONE HCl/Acetaminophen [Percocet 10-325 mg Tablet] 1 tab PO Q6H PRN 06/20/20 [History] Ondansetron [Zofran] 4 mg PO TID PRN 06/21/20 [History] Acetaminophen [Tylenol] 650 mg PO Q4H PRN tablet 10/08/20 [Rx] Docusate Sodium [Colace] 100 mg PO BID PRN 10/21/20 [History] Losartan [Cozaar] 25 mg PO BEDTIME 10/24/20 [History] Past Medical History - Past Health History Medical/Surgical History: Denies Medical/Surgical History HEENT History: Reports: None Cardiovascular History: Reports: None Respiratory History: Reports: None Gastrointestinal History: Reports: Cholelithiasis, Gastritis, GERD Other Gastrointestinal History: gallbladder pain Genitourinary History: Reports: Renal Calculus, Other (See Below) 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 Hematologic History: Reports: None Immunologic History: Reports: None Oncologic (Cancer) History: Reports: None Dermatologic History: Reports: None - Infectious Disease History Infectious Disease History: Reports: Chicken Pox, Novel Coronavirus - Past Surgical History Head Surgeries/Procedures: Reports: None HEENT Surgical History: Reports: None Cardiovascular Surgical History: Reports: None GI Surgical History: Reports: Appendectomy, Cholecystectomy Male Surgical History: Reports: Circumcision Other Male Surgeries/Procedures: Has had kidney biopsy Musculoskeletal Surgical History: Reports: Other (See Below) Other Musculoskeletal Surgeries/Procedures:: left arm Social & Family History - Family History Family Medical History: No Pertinent Family History - Caffeine Use Caffeine Use: Reports: None Caffeine Use Comment: 32 oz daily - Living Situation & Occupation Living situation: Reports: Single, Alone Occupation: Employed ED ROS GENERAL - Review of Systems Review Of Systems: Comprehensive ROS is negative, except as noted in HPI. ED EXAM, GENERAL - Physical Exam Exam: See Below Exam Limited By: No Limitations General Appearance: Alert, No Apparent Distress, Obese, Other (Appear uncomfortable, but non-toxic) Eye Exam: Bilateral Eye: Normal Inspection Nose: Normal Inspection Throat/Mouth: Normal Inspection Head: Atraumatic, Normocephalic Neck: Normal Inspection, Non-Tender Respiratory/Chest: No Respiratory Distress, Lungs Clear, Normal Breath Sounds, No Accessory Muscle Use, Chest Non-Tender Cardiovascular: Regular Rate, Rhythm GI/Abdominal: Normal Bowel Sounds, Soft, Non-Tender Back Exam: Full Range of Motion, CVA Tenderness (L). No: CVA Tenderness (R), Vertebral Tenderness Extremities: Normal Inspection Neurological: Alert, Oriented, No Motor/Sensory Deficits Psychiatric: Normal Mood Skin Exam: Warm, Dry, Intact, Normal Color, No Rash Course - Vital Signs Last Recorded V/S: Last Vital Signs Temp 97.4 F 10/25/20 11:29 Pulse 82 10/25/20 11:29 Resp 20 10/25/20 11:29 BP 143/84 H 10/25/20 11:29 Pulse Ox 99 10/25/20 11:29 - Orders/Labs/Meds Orders: Active Orders 24 hr Category Date Time Status Peripheral IV Care [RC] . DIRECTED Care 10/25/20 11:44 Active CORONAVIRUS COVID-19 CATHI [MOLEC] Urgent Lab 10/25/20 14:58 Ordered Sodium Chloride 0.9% [Saline Flush] Med 10/25/20 11:44 Active 10 ml FLUSH ASDIRECTED PRN Peripheral IV Insertion Adult [OM.PC] Stat Oth 10/25/20 11:44 Ordered Medication Orders Sodium Chloride (Saline Flush) 10 ml FLUSH ASDIRECTED PRN PRN Reason: Keep Vein Open Last Admin: 10/25/20 12:09 Dose: 10 ml Documented by: MARGARITA Labs: Laboratory Tests 10/25/20 10/25/20 10/25/20 Range/Units 11:52 11:52 12:57 WBC 8.6 (5.0-10.0) 10^3/uL RBC 5.30 (4.6-6.2) 10^6/uL Hgb 15.9 D (14.0-18.0) g/dL Hct 44.9 (40.0-54.0) % MCV 84.7 (80-100) fL MCH 30.0 (27.0-34.0) pg MCHC 35.4 H (33.0-35.0) g/dL Plt Count 300 (150-450) 10^3/uL Neut % (Auto) 73.6 (42.2-75.2) % Lymph % (Auto) 18.8 L (20.5-50.1) % [place] % (Auto) 5.3 (2-8) % Eos % (Auto) 2.0 (1.0-3.0) % Baso % (Auto) 0.3 (0.0-1.0) % Sodium 138 (136-145) mmol/L Potassium 4.0 (3.5-5.1) mmol/L Chloride 103 (98-107) mmol/L Carbon Dioxide 25 (21-32) mmol/L Anion Gap 14.0 H (7-13) mEq/L BUN 10 (7-18) mg/dL Creatinine 0.75 (0.70-1.30) mg/dL Est Cr Clr Drug Dosing 159.51 mL/min Estimated GFR (MDRD) > 60 Glucose 105 H (74-99) mg/dL Calcium 8.6 (8.5-10.1) mg/dL Urine Color Red (YELLOW) Urine Appearance Clear (CLEAR) Urine pH >= 9.0 (5.0-9.0) Ur Specific [place] 1.020 (1.005-1.030) Urine Protein 100 H (NEGATIVE) Urine Glucose (UA) Negative (NEGATIVE) Urine Ketones Negative (NEGATIVE) Urine Occult Blood Large H (NEGATIVE) Urine Nitrite Negative (NEGATIVE) Urine Bilirubin Negative (NEGATIVE) Urine Urobilinogen 1.0 (0.2-1.0) mg/dL Ur Leukocyte Esterase Negative (NEGATIVE) Urine RBC Semi-packed H /HPF Urine WBC Not seen (0-5/HPF) /HPF Ur Epithelial Cells Few (NOT SEEN) /HPF Urine Bacteria Rare (0-FEW/HPF) /HPF Urine Mucus Not seen (NOT SEEN) /LPF Meds: Medications Generic Name Dose Route Start Last Admin Trade Name Freq PRN Reason Stop Dose Admin Sodium Chloride 10 ml 10/25/20 11:44 10/25/20 12:09 Saline Flush FLUSH 10 ml ASDIRECTED PRN Administration Keep Vein Open Discontinued Medications Generic Name Dose Route Start Last Admin Trade Name Chavo PRN Reason Stop Dose Admin Hydromorphone HCl 2 mg 10/25/20 11:44 10/25/20 12:09 Dilaudid IVPUSH 10/25/20 11:45 2 mg ONETIME ONE Administration Hydromorphone HCl 2 mg 10/25/20 13:54 10/25/20 14:05 Dilaudid IVPUSH 10/25/20 13:55 2 mg ONETIME ONE Administration Sodium Chloride 1,000 mls @ 999 mls/hr 10/25/20 11:44 10/25/20 12:09 Normal Saline IV 10/25/20 12:44 999 mls/hr .BOLUS ONE Administration Sodium Chloride 1,000 mls @ 999 mls/hr 10/25/20 13:54 10/25/20 14:03 Normal Saline IV 10/25/20 14:54 999 mls/hr .BOLUS ONE Administration Ondansetron HCl 4 mg 10/25/20 11:44 10/25/20 12:10 Zofran IV 10/25/20 11:45 4 mg ONETIME ONE Administration Ondansetron HCl 4 mg 10/25/20 13:53 10/25/20 14:04 Zofran IV 10/25/20 13:54 4 mg ONETIME ONE Administration - Re-Assessments/Exams Free Text/Narrative Re-Assessment/Exam: 10/25/20 15:11 Pt's pain uncontrolled in ER. He wishes to be admitted and agrees to be compliant with the hospitalist's treatment plan. Departure - Departure Time of Disposition: 15:11 (admitted to Dr. Meza) Disposition: Refer to Observation Condition: Good Clinical Impression: Loin pain hematuria syndrome, History of Henoch-Schonlein purpura, Gross hematuria - Discharge Information *PRESCRIPTION DRUG MONITORING PROGRAM REVIEWED*: No *COPY OF PRESCRIPTION DRUG MONITORING REPORT IN PATIENT NICO: No Forms: ED Department Discharge Sepsis Event Note (ED) - Focused Exam Vital Signs: Vital Signs Temp Pulse Resp BP Pulse Ox 10/25/20 11:29 97.4 F 82 20 143/84 H 99 - My Orders Last 24 Hours: My Active Orders 10/25/20 11:44 Peripheral IV Care [RC] . DIRECTED Sodium Chloride 0.9% [Saline Flush] 10 ml FLUSH ASDIRECTED PRN Peripheral IV Insertion Adult [OM.PC] Stat 10/25/20 14:58 CORONAVIRUS COVID-19 CATHI [MOLEC] Urgent - Assessment/Plan Last 24 Hours: My Active Orders 10/25/20 11:44 Peripheral IV Care [RC] . DIRECTED Sodium Chloride 0.9% [Saline Flush] 10 ml FLUSH ASDIRECTED PRN Peripheral IV Insertion Adult [OM.PC] Stat 10/25/20 14:58 CORONAVIRUS COVID-19 CATHI [MOLEC] Urgent
[2020-10-25] MEDS ORDERED: HYDROmorphone 1 MG/ML Syringe IVPUSH ONE ×2 (11:44→13:54)
[2020-10-25] MEDS ORDERED: Sodium Chloride 0.9% 1,000 ML IV ONE ×2 (11:44→13:54)
[2020-10-25] MEDS ORDERED: Ondansetron 4 MG/2 ML SDV IV ONE ×2 (11:44→13:53)
[2020-10-25] MEDS: Sodium Chloride 0.9% 10 ML Syringe FLUSH PRN ×3 (12:09→17:19)
[2020-10-25 12:10] LABS: CHLORIDE,CL 103 mmol/L (98-107); SODIUM,NA 138 mmol/L (136-145)
[2020-10-25] MEDS ORDERED: Docusate Sodium 100 MG Cap PO PRN (16:20)
[2020-10-25] MEDS ORDERED: HYDROmorphone 1 MG/ML Syringe IVPUSH PRN (16:21)
[2020-10-25] MEDS: Acetaminophen 500 MG Tab PO SCH ×2 (16:54→22:37)
[2020-10-25] MEDS: Sodium Chloride 0.9% 1,000 ML IV SCH (17:17)
[2020-10-25] MEDS: HYDROmorphone 1 MG/ML Syringe IVPUSH PRN ×2 (18:32→22:32)
[2020-10-25] MEDS ORDERED: Tamsulosin 0.4 MG Cap.ER PO SCH (21:00)
[2020-10-25] MEDS ORDERED: Losartan 25 MG Tab PO SCH ×2 (21:00)
[2020-10-26] MEDS: Sodium Chloride 0.9% 1,000 ML IV SCH ×2 (00:02→07:25)
--- NOTE | 2020-10-26 00:52 | HP ---
HISTORY OF PRESENT ILLNESS: This is a 30-year-old male with past medical history Henoch-Schonlein purpura, chronic opioid use, and chronic pain episodes and crisis secondary to loin pain hematuria syndrome. He is well known to this emergency room and this institution with refractory episodes of bilateral flank pain, hematuria, nausea, and vomiting. He presents now with an ongoing 2-week pain crisis. He was recently seen in the emergency room, briefly admitted to a tertiary referral center from which he signed out AMA for reason that he quotes is lack of adequate care and inadequate pain control. His pain was unable to be managed in the emergency room despite IV Dilaudid. He also has continued gross hematuria, although his CBC is stable. REVIEW OF SYSTEMS: Negative for 14 systems except as specifically noted above. PAST MEDICAL HISTORY: Additional past medical history of cholelithiasis, gastritis, GERD, obesity. PAST SURGICAL HISTORY: Surgery on his left arm, kidney biopsy, cholecystectomy, appendectomy, circumcision. FAMILY HISTORY: No contributory family history to this episode of pain crisis. SOCIAL HISTORY: Heavy caffeine user. Denies smoking. Admits to habitual marijuana use. PHYSICAL EXAMINATION: General: Alert and oriented x3, varies from pleasant to in apparent painful distress. HEENT: Normal sclerae. Moist mucous membranes. Lungs: Clear to auscultation bilaterally. Cardiac: No murmurs. Regular rate and rhythm. Skin: Normal turgor. Abdomen: Obese, soft, nondistended. Does not appear to be tender or distracted. Exaggerated bilateral CVA tenderness to palpation. Nontender bladder. Extremities: No edema. Neurologic: Grossly intact. Gait was deferred. ASSESSMENT AND PLAN: 1. Pain crisis secondary to loin pain hematuria syndrome, chronic opioid dependence. The patient is well known here and his dosage requirements are well know. He has extreme high tolerance to IV opioids, very demanding of repeated high doses of IV use dilaudid. I have discussed with him that I do believe his pain is real. However, there is also a component of likely opioid hyperalgesia. We have agreed to administer IV push Dilaudid in the initial 24-hour management period of his pain crisis, after which we will convert this to p.o. Dilaudid and then segue to his outpatient regimen. In addition, the patient will receive high rate IV fluids and have serial CBC's to monitor for any changes or drops due to his hematuria. 2. Deep venous thrombosis will be held due to ongoing hematuria. 3. The patient is full code. [facility] /[id number]
[2020-10-26] MEDS: HYDROmorphone 1 MG/ML Syringe IVPUSH PRN ×3 (02:29→10:43)
[2020-10-26] MEDS: Acetaminophen 500 MG Tab PO SCH ×3 (04:37→16:38)
[2020-10-26 07:10] LABS: ANION GAP 9.8 mEq/L (7-13); CHLORIDE,CL 102 mmol/L (98-107); SODIUM,NA 134 mmol/L (136-145)
[2020-10-26] MEDS: Sodium Chloride 0.9% 10 ML Syringe FLUSH PRN (10:47)
[2020-10-26] MEDS ORDERED: Ondansetron 4 MG Tab.DIS PO PRN (10:58)
[2020-10-26] MEDS ORDERED: Tamsulosin 0.4 MG Cap.ER PO SCH (11:00)
[2020-10-26 12:17] VITALS: BP 116/57; PULSE 57
--- NOTE | 2020-10-26 15:38 | PCM.DCSUM1 ---
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 Pt was recently admitted to [facility] and subsequently transferred to [facility] where pt immediately signed out AMA. He returns now w/ continued hematuria and suprapubic pain. His pain was not able to be controlled in the ER. Search of PDMP reveals numerous recent prescriptions for percocet in just the past 2 wee ks. Pts physical exam was unremarkable. UA did confirm hematuria however once on the unit the pt refused to produce any urine for us to see. After thorough discussion in regards to his pain management I made an agreement w/ the patient to treat his acute pain w/ IV dilaudid for 24 hours and then seqway to oral dilaudid. He also received high rate IV fluids. Throughout his brief hospital stay the pt suffered mood swings and threatened to leave if he did not receive more frequent IV dilaudid. When time came to convert to PO the pt became angry, verbally abusive and threw the pills across the room. He lounged out of bed and demanded IV be removed and that he is leaving. He did not appear in any pain at that time. Diagnosis: Stroke: No - Discharge Data Discharge Date: 10/26/20 Discharge Disposition: Against Medical Advice 07 Condition: Good - Referral to Home Health Primary Care Physician: Beto Campuzano PA-C - Discharge Plan *PRESCRIPTION DRUG MONITORING PROGRAM REVIEWED*: Yes *COPY OF PRESCRIPTION DRUG MONITORING REPORT IN PATIENT NICO: Yes Home Medications: Home Meds Tamsulosin HCl [Flomax] 0.4 mg PO BID 05/30/20 [History] oxyCODONE HCl/Acetaminophen [Percocet 10-325 mg Tablet] 1 tab PO Q6H PRN 06/20/20 [History] Ondansetron [Zofran] 4 mg PO TID PRN 06/21/20 [History] Acetaminophen [Tylenol] 650 mg PO Q4H PRN tablet 10/08/20 [Rx] Docusate Sodium [Colace] 100 mg PO BID PRN 10/21/20 [History] Losartan [Cozaar] 25 mg PO BEDTIME 10/24/20 [History] Acetaminophen [Tylenol Extra Strength] 1,000 mg PO Q6H tablet 10/26/20 [Rx] Forms: ED Department Discharge Referrals: PCP,None [Ordering Only Provider] - - Discharge Summary/Plan Comment DC Time >30 min.: No - Patient Data Vitals - Most Recent: Last Vital Signs Temp 97.8 F 10/26/20 12:16 Pulse 57 L 10/26/20 12:16 Resp 20 10/26/20 12:16 BP 116/57 L 10/26/20 12:16 Pulse Ox 96 10/26/20 12:16 Weight - Most Recent: 330 lb 4 oz I&O - Last 24 hours: Intake & Output 10/26/20 10/26/20 10/26/20 06:59 14:59 22:59 Intake Total 120 Balance 120 Lab Results - Last 24 hrs: Laboratory Results - last 24 hr 10/26/20 10/26/20 Range/Units 06:27 06:27 WBC 8.6 (5.0-10.0) 10^3/uL RBC 4.76 (4.6-6.2) 10^6/uL Hgb 14.2 D (14.0-18.0) g/dL Hct 40.8 (40.0-54.0) % MCV 85.7 (80-100) fL MCH 29.8 (27.0-34.0) pg MCHC 34.8 (33.0-35.0) g/dL Plt Count 280 (150-450) 10^3/uL Neut % (Auto) 60.6 (42.2-75.2) % Lymph % (Auto) 29.7 (20.5-50.1) % Gregg % (Auto) 6.7 (2-8) % Eos % (Auto) 2.8 (1.0-3.0) % Baso % (Auto) 0.2 (0.0-1.0) % Sodium 134 L (136-145) mmol/L Potassium 3.8 (3.5-5.1) mmol/L Chloride 102 (98-107) mmol/L Carbon Dioxide 26 (21-32) mmol/L Anion Gap 9.8 (7-13) mEq/L BUN 12 (7-18) mg/dL Creatinine 0.80 (0.70-1.30) mg/dL Est Cr Clr Drug Dosing 149.54 mL/min Estimated GFR (MDRD) > 60 BUN/Creatinine Ratio 15.0 (No establ ref range) Glucose 85 (74-99) mg/dL Calcium 7.9 L (8.5-10.1) mg/dL Phosphorus 3.8 (2.6-4.7) mg/dL Magnesium 1.7 L (1.8-2.4) mg/dL Total Bilirubin 0.7 (0.2-1.0) mg/dL AST 19 (15-37) U/L ALT 42 (16-63) U/L Alkaline Phosphatase 68 (46-116) U/L Total Protein 6.8 (6.4-8.2) g/dL Albumin 3.5 (3.4-5.0) g/dL Globulin 3.3 Albumin/Globulin Ratio 1.1 Med Orders - Current: Current Medications Acetaminophen (Tylenol Extra Strength) 1,000 mg PO Q6H [facility] Last Admin: 10/26/20 10:46 Dose: 1,000 mg Documented by: Docusate Sodium (Colace) 100 mg PO BID PRN PRN Reason: Constipation Hydromorphone HCl (Dilaudid) 6 mg PO Q4HR [facility] Sodium Chloride (Normal Saline) 1,000 mls @ 150 mls/hr IV ASDIRECTED [facility] Last Admin: 10/26/20 07:25 Dose: 150 mls/hr Documented by: Losartan Potassium (Cozaar) 25 mg PO BEDTIME [facility] Last Admin: 10/26/20 11:39 Dose: Not Given Documented by: Ondansetron HCl (Zofran Odt) 4 mg PO TID PRN PRN Reason: Nausea Sodium Chloride (Saline Flush) 10 ml FLUSH ASDIRECTED PRN PRN Reason: Keep Vein Open Last Admin: 10/26/20 10:47 Dose: 10 ml Documented by: Tamsulosin HCl (Flomax) 0.4 mg PO BID [facility] Last Admin: 10/26/20 11:39 Dose: 0.4 mg Documented by: Discontinued Medications Hydromorphone HCl (Dilaudid) 2 mg IVPUSH ONETIME ONE Stop: 10/25/20 11:45 Last Admin: 10/25/20 12:09 Dose: 2 mg Documented by: Hydromorphone HCl (Dilaudid) 2 mg IVPUSH ONETIME ONE Stop: 10/25/20 13:55 Last Admin: 10/25/20 14:05 Dose: 2 mg Documented by: Hydromorphone HCl (Dilaudid) 1 mg IVPUSH Q4H PRN PRN Reason: Pain (severe 7-10) Last Admin: 10/25/20 16:55 Dose: 1 mg Documented by: Hydromorphone HCl (Dilaudid) 2 mg IVPUSH Q4H PRN PRN Reason: Pain (severe 7-10) Last Admin: 10/26/20 10:43 Dose: 2 mg Documented by: Sodium Chloride (Normal Saline) 1,000 mls @ 999 mls/hr IV .BOLUS ONE Stop: 10/25/20 12:44 Last Admin: 10/25/20 12:09 Dose: 999 mls/hr Documented by: Sodium Chloride (Normal Saline) 1,000 mls @ 999 mls/hr IV .BOLUS ONE Stop: 10/25/20 14:54 Last Admin: 10/25/20 14:03 Dose: 999 mls/hr Documented by: Losartan Potassium (Cozaar) 25 mg PO BEDTIME BRITTANY Stop: 10/25/20 21:01 Last Admin: 10/25/20 20:35 Dose: 25 mg Documented by: Ondansetron HCl (Zofran) 4 mg IV ONETIME ONE Stop: 10/25/20 11:45 Last Admin: 10/25/20 12:10 Dose: 4 mg Documented by: Ondansetron HCl (Zofran) 4 mg IV ONETIME ONE Stop: 10/25/20 13:54 Last Admin: 10/25/20 14:04 Dose: 4 mg Documented by: Tamsulosin HCl (Flomax) 0.4 mg PO BEDTIME BRITTANY Stop: 10/25/20 21:01 Last Admin: 10/25/20 20:34 Dose: 0.4 mg Documented by: - Exam General: Reports: No Acute Distress Physical Findings Comments:: Pt refused physical exam - left AMA *Q Meaningful Use (DIS) - VTE *Q VTE Anticoagulation Contraindications: Medical/Procedure Contrai
== END 2020-10-26 14:43 | disposition left against medical advice (07) ==
LOC: DL.ED 11:07 → DL.MS 15:03
PROVIDERS: ADMIT Internal Medicine; ATTEND Internal Medicine
DX: R10.9 Unspecified abdominal pain (principal); R31.0 Gross hematuria; E66.9 Obesity, unspecified; F11.20 Opioid dependence, uncomplicated; Z68.41 Body mass index [BMI] 40.0-44.9, adult; Z88.8 Allergy status to other drugs, medicaments and biological substances; Z88.6 Allergy status to analgesic agent; Z88.1 Allergy status to other antibiotic agents; Z91.030 Bee allergy status; Z87.442 Personal history of urinary calculi; Z87.19 Personal history of other diseases of the digestive system; Z86.16 Personal history of COVID-19; Z20.822 Contact with and (suspected) exposure to COVID-19; Z79.899 Other long term (current) drug therapy; Z86.718 Personal history of other venous thrombosis and embolism; Z98.890 Other specified postprocedural states; Z53.29 Procedure and treatment not carried out because of patient's decision for other reasons
CPT/HCPCS: 36415; 80048; 80053; 81001; 83735; 84100; 85025; 87635; 96374; 96375; 96376; 99284; A9270; G0378; J1170; J2405; J7030; U0002

== ENCOUNTER 2020-10-27 08:21 | Emergency (ER) | payer MEDICAID ==
[2020-10-27 08:47] VITALS: BP 133/83; PULSE 71
[2020-10-27] MEDS ORDERED: HYDROmorphone 1 MG/ML Syringe IM ONE (08:54)
--- NOTE | 2020-10-27 08:57 | EDM.PDOC ---
ED HPI GENERAL MEDICAL PROBLEM - General Chief Complaint: Flank Pain Stated Complaint: ABDOMINAL/KIDNEY PAIN Time Seen by Provider: 10/27/20 08:50 Source of Information: Reports: Patient, Old Records, RN, RN Notes Reviewed History Limitations: Reports: No Limitations - History of Present Illness INITIAL COMMENTS - FREE TEXT/NARRATIVE: Pt presents to ER from home by POV with c/o left flank pain and hematuria. Pt states he became frustrated with the hospitalist yesterday and left AMA. His physician has left the area, and he cannot get in to see the new doctor until next week. However, he claims the [facility] cancer registry coordinator has told him to come on November 03, rather than the previously planned November 10. Pt denies any new symptoms, fevers, or chills. Duration: Chronic, Recurring Quality: Reports: Same as Previous Episode Severity: Severe Improves with: Reports: None Worsens with: Reports: None Associated Symptoms: Reports: No Other Symptoms Flank Pain Score (Numeric/FACES): 8 - Related Data Allergies Allergy/AdvReac Type Severity Reaction Status Date / Time amoxicillin [Amoxicillin] Allergy Rash Verified 10/27/20 08:47 bee venom protein (honey bee) Allergy Cannot Verified 10/27/20 08:47 Remember butorphanol [From Stadol] Allergy Hallucinati Verified 10/27/20 08:47 ons haloperidol [From Haldol] Allergy Hallucinati Verified 10/27/20 08:47 ons ketorolac tromethamine Allergy Rash Verified 10/27/20 08:47 [From Toradol] metoclopramide [From Reglan] Allergy Agitation Verified 10/27/20 08:47 promethazine HCl Allergy Hallucinati Verified 10/27/20 08:47 [From Phenergan] ons tramadol HCl [From Ultram] Allergy Rash Verified 10/27/20 08:47 Home Meds: Home Meds Tamsulosin HCl [Flomax] 0.4 mg PO BID 05/30/20 [History] Ondansetron [Zofran] 4 mg PO TID PRN 06/21/20 [History] Acetaminophen [Tylenol] 650 mg PO Q4H PRN tablet 10/08/20 [Rx] Docusate Sodium [Colace] 100 mg PO BID PRN 10/21/20 [History] Losartan [Cozaar] 25 mg PO BEDTIME 10/24/20 [History] Acetaminophen [Tylenol Extra Strength] 1,000 mg PO Q6H tablet 10/26/20 [Rx] Past Medical History - Past Health History Medical/Surgical History: Denies Medical/Surgical History HEENT History: Reports: None Cardiovascular History: Reports: None Respiratory History: Reports: None Gastrointestinal History: Reports: Cholelithiasis, Gastritis, GERD Other Gastrointestinal History: gallbladder pain Genitourinary History: Reports: Renal Calculus, Other (See Below) 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 Hematologic History: Reports: None Immunologic History: Reports: None Oncologic (Cancer) History: Reports: None Dermatologic History: Reports: None - Infectious Disease History Infectious Disease History: Reports: Chicken Pox, Novel Coronavirus - Past Surgical History Head Surgeries/Procedures: Reports: None HEENT Surgical History: Reports: None Cardiovascular Surgical History: Reports: None GI Surgical History: Reports: Appendectomy, Cholecystectomy Male Surgical History: Reports: Circumcision Other Male Surgeries/Procedures: Has had kidney biopsy Musculoskeletal Surgical History: Reports: Other (See Below) Other Musculoskeletal Surgeries/Procedures:: left arm Social & Family History - Family History Family Medical History: No Pertinent Family History - Tobacco Use Tobacco Use Status *Q: Never Tobacco User - Caffeine Use Caffeine Use: Reports: None Caffeine Use Comment: 32 oz daily - Recreational Drug Use Recreational Drug Type: Reports: Marijuana/Hashish Other Recreational Drug Type: medical - Living Situation & Occupation Living situation: Reports: Single, Alone Occupation: Employed ED ROS GENERAL - Review of Systems Review Of Systems: Comprehensive ROS is negative, except as noted in HPI. ED EXAM, RENAL/ - Physical Exam Exam: See Below Exam Limited By: No Limitations General Appearance: Alert, WD/WN, No Apparent Distress, Obese Respiratory/Chest: No Respiratory Distress Cardiovascular: Regular Rate, Rhythm GI/Abdominal: Normal Bowel Sounds, Soft, Non-Tender Back Exam: Full Range of Motion, CVA Tenderness (L). No: CVA Tenderness (R), Vertebral Tenderness Extremities: Normal Inspection Neurological: Alert, Oriented, No Motor/Sensory Deficits Psychiatric: Normal Mood Skin Exam: Warm, Dry, Intact, Normal Color, No Rash Course - Vital Signs Last Recorded V/S: Last Vital Signs Temp 96.2 F L 10/27/20 08:42 Pulse 71 10/27/20 08:42 Resp 14 10/27/20 08:42 BP 133/83 10/27/20 08:42 Pulse Ox 98 10/27/20 08:42 - Orders/Labs/Meds Meds: Medications Discontinued Medications Generic Name Dose Route Start Last Admin Trade Name Chavo PRN Reason Stop Dose Admin Hydromorphone HCl 2 mg 10/27/20 08:54 Dilaudid IM 10/27/20 08:55 ONETIME ONE Departure - Departure Time of Disposition: 09:10 Disposition: Home, Self-Care 01 Condition: Good Clinical Impression: Loin pain hematuria syndrome, History of Henoch-Schonlein purpura, Left flank pain - Discharge Information *PRESCRIPTION DRUG MONITORING PROGRAM REVIEWED*: No *COPY OF PRESCRIPTION DRUG MONITORING REPORT IN PATIENT NICO: No Instructions: Flank Pain, Adult, Hematuria, Adult Forms: ED Department Discharge Additional Instructions: Rx: Oxycodone APAP 10mg/325mg Follow up in clinic for ongoing medication management. Follow up with transplant team in [place] as planned. Sepsis Event Note (ED) - Evaluation Sepsis Screening Result: No Definite Risk - Focused Exam Vital Signs: Vital Signs Temp Pulse Resp BP Pulse Ox 10/27/20 08:42 96.2 F L 71 14 133/83 98
[2020-10-27] MEDS ORDERED: HYDROmorphone 1 MG/ML Syringe ONE (09:03)
== END 2020-10-27 09:09 | disposition home or self-care (01) ==
LOC: DL.ED 08:21
DX: N39.8 Other specified disorders of urinary system (principal); E66.9 Obesity, unspecified; Z68.41 Body mass index [BMI] 40.0-44.9, adult; Z86.2 Personal history of diseases of the blood and blood-forming organs and certain disorders involving the immune mechanism; Z88.0 Allergy status to penicillin; Z91.030 Bee allergy status; Z88.8 Allergy status to other drugs, medicaments and biological substances; Z88.6 Allergy status to analgesic agent; Z88.5 Allergy status to narcotic agent; Z79.899 Other long term (current) drug therapy
CPT/HCPCS: 96372; 99283; J1170

== ENCOUNTER 2020-10-29 08:33 | Emergency (ER) | payer MEDICAID ==
--- NOTE | 2020-10-29 08:46 | EDM.PDOC ---
ED HPI GENERAL MEDICAL PROBLEM - General Chief Complaint: Flank Pain Stated Complaint: KIDNEY PAIN Time Seen by Provider: 10/29/20 08:42 Source of Information: Reports: Patient, Old Records, RN, RN Notes Reviewed History Limitations: Reports: No Limitations - History of Present Illness INITIAL COMMENTS - FREE TEXT/NARRATIVE: Pt presents to ER from home by POV with c/o left flank pain and hematuria. Pt c/o inadequate pain control from his po medications, and of nausea, vomiting, and diarrhea. Pt has been diagnosed with Loin Pain Hematuria syndrome, and has been evaluated by several urologists, nephrologists, and a transplant team. He claims the [facility] heart coordinator has told him to come on November 03, rather than the previously planned November 10. Pt denies any new symptoms, fevers, or chills. Pt rates his pain 8/10. Nothing alleviates or aggravates the pain. Duration: Chronic, Recurring Location: Reports: Abdomen, Other (Left flank) Quality: Reports: Same as Previous Episode Severity: Severe Associated Symptoms: Reports: No Other Symptoms Bilateral Flank Pain Score (Numeric/FACES): 8 - Related Data Allergies Allergy/AdvReac Type Severity Reaction Status Date / Time amoxicillin [Amoxicillin] Allergy Rash Verified 10/29/20 08:47 bee venom protein (honey bee) Allergy Cannot Verified 10/29/20 08:47 Remember butorphanol [From Stadol] Allergy Hallucinati Verified 10/29/20 08:47 ons haloperidol [From Haldol] Allergy Hallucinati Verified 10/29/20 08:47 ons ketorolac tromethamine Allergy Rash Verified 10/29/20 08:47 [From Toradol] metoclopramide [From Reglan] Allergy Agitation Verified 10/29/20 08:47 promethazine HCl Allergy Hallucinati Verified 10/29/20 08:47 [From Phenergan] ons tramadol HCl [From Ultram] Allergy Rash Verified 10/29/20 08:47 Home Meds: Home Meds Tamsulosin HCl [Flomax] 0.4 mg PO BID 05/30/20 [History] Ondansetron [Zofran] 4 mg PO TID PRN 06/21/20 [History] Docusate Sodium [Colace] 100 mg PO BID PRN 10/21/20 [History] Losartan [Cozaar] 25 mg PO BEDTIME 10/24/20 [History] Past Medical History - Past Health History Medical/Surgical History: Denies Medical/Surgical History HEENT History: Reports: None Cardiovascular History: Reports: None Respiratory History: Reports: None Gastrointestinal History: Reports: Cholelithiasis, Gastritis, GERD Other Gastrointestinal History: gallbladder pain Genitourinary History: Reports: Renal Calculus, Other (See Below) 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 Hematologic History: Reports: None Immunologic History: Reports: None Oncologic (Cancer) History: Reports: None Dermatologic History: Reports: None - Infectious Disease History Infectious Disease History: Reports: Chicken Pox, Novel Coronavirus - Past Surgical History Head Surgeries/Procedures: Reports: None HEENT Surgical History: Reports: None Cardiovascular Surgical History: Reports: None GI Surgical History: Reports: Appendectomy, Cholecystectomy Male Surgical History: Reports: Circumcision Other Male Surgeries/Procedures: Has had kidney biopsy Musculoskeletal Surgical History: Reports: Other (See Below) Other Musculoskeletal Surgeries/Procedures:: left arm Social & Family History - Family History Family Medical History: No Pertinent Family History - Caffeine Use Caffeine Use: Reports: None Caffeine Use Comment: 32 oz daily - Living Situation & Occupation Living situation: Reports: Single, Alone Occupation: Employed ED ROS GENERAL - Review of Systems Review Of Systems: Comprehensive ROS is negative, except as noted in HPI. ED EXAM, GENERAL - Physical Exam Exam: See Below Exam Limited By: No Limitations General Appearance: Alert, No Apparent Distress, Obese Eye Exam: Bilateral Eye: Normal Inspection (No scleral icterus) Head: Atraumatic, Normocephalic Respiratory/Chest: No Respiratory Distress, Lungs Clear Cardiovascular: Regular Rate, Rhythm, No Edema GI/Abdominal: Normal Bowel Sounds, Soft, Non-Tender, Other (Obese abdomen is nontender to palpation) (Male) Exam: Deferred Rectal (Males) Exam: Deferred Back Exam: Full Range of Motion, CVA Tenderness (L). No: CVA Tenderness (R), Vertebral Tenderness Extremities: Normal Inspection Neurological: Alert, Oriented, No Motor/Sensory Deficits Psychiatric: Normal Mood Skin Exam: Warm, Dry, Intact, Normal Color, No Rash. No: Ecchymosis, Jaundice, Petechiae Course - Vital Signs Last Recorded V/S: Last Vital Signs Temp 96.9 F 10/29/20 08:40 Pulse 66 10/29/20 08:40 Resp 16 10/29/20 08:40 BP 136/80 10/29/20 08:40 Pulse Ox 98 10/29/20 08:40 - Orders/Labs/Meds Orders: Active Orders 24 hr Category Date Time Status Abdomen 2V AP Flat Upright [CR] Urgent Exams 10/29/20 08:51 Taken Meds: Medications Discontinued Medications Generic Name Dose Route Start Last Admin Trade Name Freq PRN Reason Stop Dose Admin Hydromorphone HCl 2 mg 10/29/20 08:51 10/29/20 08:57 Dilaudid IM 10/29/20 08:52 2 mg ONETIME ONE Administration Ondansetron HCl 8 mg 10/29/20 08:50 10/29/20 08:57 Zofran IM 10/29/20 08:51 8 mg ONETIME ONE Administration - Radiology Interpretation Free Text/Narrative:: XR Abdomen: non-obstructive bowel gas pattern, see Rad. report. Departure - Departure Time of Disposition: 09:29 Disposition: Home, Self-Care 01 Condition: Good Clinical Impression: Loin pain hematuria syndrome, Flank pain, Gross hematuria, History of Henoch- Schonlein purpura - Discharge Information *PRESCRIPTION DRUG MONITORING PROGRAM REVIEWED*: Yes *COPY OF PRESCRIPTION DRUG MONITORING REPORT IN PATIENT NICO: No Instructions: Abdominal Pain, Adult, Flank Pain, Adult, Hematuria, Adult Forms: ED Department Discharge Additional Instructions: Use your Zofran as prescribed, may take 8mg rather than 4mg for severe nausea/vomiting. Over the counter Imodium AD as needed for diarrhea. Follow directions on package label. Follow up in [place] as planned. Sepsis Event Note (ED) - Focused Exam Vital Signs: Vital Signs Temp Pulse Resp BP Pulse Ox 10/29/20 08:40 96.9 F 66 16 136/80 98 - My Orders Last 24 Hours: My Active Orders 10/29/20 08:51 Abdomen 2V AP Flat Upright [CR] Urgent - Assessment/Plan Last 24 Hours: My Active Orders 10/29/20 08:51 Abdomen 2V AP Flat Upright [CR] Urgent
[2020-10-29] MEDS ORDERED: Ondansetron 4 MG/2 ML SDV IM ONE (08:50)
[2020-10-29] MEDS ORDERED: HYDROmorphone 1 MG/ML Syringe IM ONE (08:51)
[2020-10-29 09:07] VITALS: BP 136/80; PULSE 66
--- NOTE | 2020-10-29 09:37 | CR ---
PROCEDURE INFORMATION: Exam: XR Abdomen Exam date and time: 10/29/2020 8:54 AM Age: 30 years old Clinical indication: Abdominal pain; Generalized; Additional info: Abdominal pain, opiate constipation suspected TECHNIQUE: Imaging protocol: XR of the abdomen. Views: 2 Views. Upright and supine views. COMPARISON: CT Abdomen Pelvis wo Cont 05/09/2020 3:45 PM FINDINGS: Gastrointestinal tract: There is no significant distention of the small bowel or large bowel on this current examination. Intraperitoneal space: Normal. No free air. Organs: Surgical clips are noted in the right upper quadrant most likely due to prior cholecystectomy. Bones/joints: Unremarkable for age. IMPRESSION: 1. No acute findings. 2. No significant stool burden
== END 2020-10-29 09:36 | disposition home or self-care (01) ==
LOC: DL.ED 08:33
DX: N39.8 Other specified disorders of urinary system (principal); E66.9 Obesity, unspecified; Z68.42 Body mass index [BMI] 45.0-49.9, adult; R31.0 Gross hematuria; Z86.2 Personal history of diseases of the blood and blood-forming organs and certain disorders involving the immune mechanism; Z88.0 Allergy status to penicillin; Z91.030 Bee allergy status; Z88.8 Allergy status to other drugs, medicaments and biological substances; Z88.6 Allergy status to analgesic agent; Z88.5 Allergy status to narcotic agent; Z79.899 Other long term (current) drug therapy
CPT/HCPCS: 74019; 96372; 99284; J1170; J2405

== ENCOUNTER 2020-10-29 19:58 | Emergency (ER) | payer MEDICAID ==
[2020-10-29 20:10] VITALS: BP 140/74; PULSE 98
[2020-10-29] MEDS ORDERED: HYDROmorphone 2 MG Tab PO ONE (20:34)
[2020-10-29] MEDS ORDERED: Sodium Chloride 0.9% 1,000 ML IV ONE (20:34)
[2020-10-29] MEDS ORDERED: Ondansetron 8 MG in Sodium Chloride 0.9% 50 ML IV ONE (20:34)
[2020-10-29] MEDS ORDERED: HYDROmorphone 1 MG/ML Syringe IVPUSH ONE ×2 (20:47→21:19)
[2020-10-29 21:18] LABS: CHLORIDE,CL 107 mmol/L (98-107); SODIUM,NA 146 mmol/L (136-145)
--- NOTE | 2020-10-29 21:51 | EDM.PDOC ---
ED HPI GENERAL MEDICAL PROBLEM - General Chief Complaint: Genitourinary Problem Stated Complaint: HSP FLARING UP Time Seen by Provider: 10/29/20 20:10 Source of Information: Reports: Patient, Family History Limitations: Reports: No Limitations - History of Present Illness INITIAL COMMENTS - FREE TEXT/NARRATIVE: ED with c/o left flank pain, nausea not able to eat. Momther present concerned HSP is flaring because she noticed two red spots one on leg and one on buttock. Patient reports one diarrea stool tonight with presence of blood. Denies hx of hemorrhoids. Patient seen earlier in day for flank pain. Left Flank Pain Score (Numeric/FACES): 10 - Related Data Allergies Allergy/AdvReac Type Severity Reaction Status Date / Time amoxicillin [Amoxicillin] Allergy Rash Verified 10/30/20 10:50 bee venom protein (honey bee) Allergy Cannot Verified 10/30/20 10:50 Remember butorphanol [From Stadol] Allergy Hallucinati Verified 10/30/20 10:50 ons haloperidol [From Haldol] Allergy Hallucinati Verified 10/30/20 10:50 ons ketorolac tromethamine Allergy Rash Verified 10/30/20 10:50 [From Toradol] metoclopramide [From Reglan] Allergy Agitation Verified 10/30/20 10:50 promethazine HCl Allergy Hallucinati Verified 10/30/20 10:50 [From Phenergan] ons tramadol HCl [From Ultram] Allergy Rash Verified 10/30/20 10:50 Home Meds: Home Meds Tamsulosin HCl [Flomax] 0.4 mg PO BID 05/30/20 [History] Ondansetron [Zofran] 8 mg PO TID PRN 06/21/20 [History] Docusate Sodium [Colace] 100 mg PO BID PRN 10/21/20 [History] Losartan [Cozaar] 25 mg PO BEDTIME 10/24/20 [History] Past Medical History - Past Health History Medical/Surgical History: Denies Medical/Surgical History HEENT History: Reports: None Cardiovascular History: Reports: None Respiratory History: Reports: None Gastrointestinal History: Reports: Cholelithiasis, Gastritis, GERD Other Gastrointestinal History: gallbladder pain Genitourinary History: Reports: Renal Calculus, Other (See Below) 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 Hematologic History: Reports: None Immunologic History: Reports: None Oncologic (Cancer) History: Reports: None Dermatologic History: Reports: None - Infectious Disease History Infectious Disease History: Reports: Chicken Pox, Novel Coronavirus - Past Surgical History Head Surgeries/Procedures: Reports: None HEENT Surgical History: Reports: None Cardiovascular Surgical History: Reports: None GI Surgical History: Reports: Appendectomy, Cholecystectomy Male Surgical History: Reports: Circumcision Other Male Surgeries/Procedures: Has had kidney biopsy Musculoskeletal Surgical History: Reports: Other (See Below) Other Musculoskeletal Surgeries/Procedures:: left arm Social & Family History - Family History Family Medical History: No Pertinent Family History - Caffeine Use Caffeine Use: Reports: None Caffeine Use Comment: 32 oz daily - Living Situation & Occupation Living situation: Reports: Single, Alone Occupation: Employed ED ROS GENERAL - Review of Systems Review Of Systems: Comprehensive ROS is negative, except as noted in HPI. ED EXAM, GI/ABD - Physical Exam Exam: See Below Exam Limited By: No Limitations General Appearance: Alert, Mild Distress, Obese Eyes: Bilateral: EOMI Ears: Normal External Exam Nose: Normal Inspection Throat/Mouth: Normal Inspection Head: Atraumatic, Normocephalic Neck: Normal Inspection Respiratory/Chest: No Respiratory Distress, Lungs Clear, Normal Breath Sounds Cardiovascular: Normal Peripheral Pulses, Regular Rate, Rhythm GI/Abdominal Exam: Normal Bowel Sounds, Soft Back Exam: CVA Tenderness (L) Extremities: Normal Inspection Psychiatric: Flat Affect Skin Exam: Warm, Dry, Intact, Normal Color. No: Petechiae, Rash, Wound/Incision Course - Vital Signs Last Recorded V/S: Last Vital Signs Temp 97.6 F 10/29/20 20:06 Pulse 98 10/29/20 20:06 Resp 18 10/29/20 20:06 BP 140/74 10/29/20 20:06 Pulse Ox 98 10/29/20 20:06 - Orders/Labs/Meds Labs: Laboratory Tests 10/29/20 10/29/20 10/29/20 Range/Units 20:45 20:45 20:45 WBC 9.8 (5.0-10.0) 10^3/uL RBC 5.00 (4.6-6.2) 10^6/uL Hgb 14.8 (14.0-18.0) g/dL Hct 42.3 (40.0-54.0) % MCV 84.6 (80-100) fL MCH 29.6 (27.0-34.0) pg MCHC 35.0 (33.0-35.0) g/dL Plt Count 308 (150-450) 10^3/uL Neut % (Auto) 62.0 (42.2-75.2) % Lymph % (Auto) 26.8 (20.5-50.1) % Whitley % (Auto) 8.2 H (2-8) % Eos % (Auto) 2.7 (1.0-3.0) % Baso % (Auto) 0.3 (0.0-1.0) % Sodium 146 H D (136-145) mmol/L Potassium 4.0 (3.5-5.1) mmol/L Chloride 107 (98-107) mmol/L Carbon Dioxide 24 (21-32) mmol/L Anion Gap 19.0 H (7-13) mEq/L BUN 16 (7-18) mg/dL Creatinine 0.94 (0.70-1.30) mg/dL Est Cr Clr Drug Dosing 127.27 mL/min Estimated GFR (MDRD) > 60 BUN/Creatinine Ratio 17.0 (No establ ref range) Glucose 103 H (74-99) mg/dL Lactic Acid 1.2 (0.4-2.0) mmol/L Calcium 8.3 L (8.5-10.1) mg/dL Total Bilirubin 0.4 (0.2-1.0) mg/dL AST 17 (15-37) U/L ALT 43 (16-63) U/L Alkaline Phosphatase 84 (46-116) U/L C-Reactive Protein < 0.2 (0.0-0.9) mg/dL Total Protein 7.1 (6.4-8.2) g/dL Albumin 3.9 (3.4-5.0) g/dL Globulin 3.2 Albumin/Globulin Ratio 1.2 Amylase 28 (25-115) U/L Lipase 78 (73-393) U/L Meds: Medications Discontinued Medications Generic Name Dose Route Start Last Admin Trade Name Chavo PRN Reason Stop Dose Admin Hydromorphone HCl 2 mg 10/29/20 20:34 10/29/20 20:56 Dilaudid PO 10/29/20 20:35 Not Given ONETIME ONE Hydromorphone HCl 1 mg 10/29/20 20:47 10/29/20 20:54 Dilaudid IVPUSH 10/29/20 20:48 1 mg ONETIME ONE Administration Hydromorphone HCl 1 mg 10/29/20 21:19 10/29/20 21:24 Dilaudid IVPUSH 10/29/20 21:20 1 mg ONETIME ONE Administration Ondansetron HCl 8 mg/ Sodium 54 mls @ 200 mls/hr 10/29/20 20:34 10/29/20 20:49 Chloride IV 10/29/20 20:50 200 mls/hr ONETIME ONE Administration Sodium Chloride 1,000 mls @ 999 mls/hr 10/29/20 20:34 10/29/20 20:49 Normal Saline IV 10/29/20 21:34 999 mls/hr .BOLUS ONE Administration Departure - Departure Time of Disposition: 22:05 Disposition: Home, Self-Care 01 Condition: Good Clinical Impression: Flank pain Chronic pain Qualifiers: Chronic pain type: other chronic pain Qualified Code(s): G89.29 - Other chronic pain - Discharge Information *PRESCRIPTION DRUG MONITORING PROGRAM REVIEWED*: No *COPY OF PRESCRIPTION DRUG MONITORING REPORT IN PATIENT NICO: No Instructions: Flank Pain, Adult, [id number] Forms: ED Department Discharge Additional Instructions: Follow up with scheduled appointments activity as tolerated bland diet continue home medication Sepsis Event Note (ED) - Evaluation Sepsis Screening Result: No Definite Risk
== END 2020-10-29 21:07 | disposition home or self-care (01) ==
LOC: DL.ED 19:58
DX: G89.29 Other chronic pain (principal); R10.9 Unspecified abdominal pain; R11.0 Nausea; R19.7 Diarrhea, unspecified; E66.9 Obesity, unspecified; Z68.42 Body mass index [BMI] 45.0-49.9, adult; Z88.5 Allergy status to narcotic agent; Z88.0 Allergy status to penicillin; Z91.030 Bee allergy status; Z88.8 Allergy status to other drugs, medicaments and biological substances; Z79.899 Other long term (current) drug therapy
CPT/HCPCS: 36415; 80053; 82150; 83605; 83690; 85025; 86140; 96365; 96375; 99284; J1170; J2405; J7030

== ENCOUNTER 2020-10-30 09:44 | Emergency (ER) | payer MEDICAID ==
[2020-10-30 10:47] VITALS: BP 119/84; PULSE 63
[2020-10-30] MEDS ORDERED: Ondansetron 4 MG/2 ML SDV IM ONE (10:52)
[2020-10-30] MEDS ORDERED: HYDROmorphone 1 MG/ML Syringe IM ONE (10:53)
--- NOTE | 2020-10-30 10:59 | EDM.PDOC ---
Scribed by Dian Mendes 10/30/20 1058 for Jovan Villaseñor MD ED HPI GENERAL MEDICAL PROBLEM - General Chief Complaint: Flank Pain Stated Complaint: KIDNEYS? Time Seen by Provider: 10/30/20 10:42 Source of Information: Reports: Patient, RN, RN Notes Reviewed History Limitations: Reports: No Limitations - History of Present Illness INITIAL COMMENTS - FREE TEXT/NARRATIVE: Pt presents to ER from home by POV with c/o left flank pain and hematuria. Pt c/o inadequate pain control from his po medications, and of nausea, vomiting, and diarrhea. Pt has been diagnosed with Loin Pain Hematuria syndrome, and has been evaluated by several urologists, nephrologists, and a transplant team. He claims the [facility] staff development coordinator rn has told him to come on November 03, rather than the previously planned November 10, and now he states he is leaving today. Pt denies any new symptoms, fevers, or chills. Pt rates his pain 8/10. Nothing alleviates or aggravates the pain. Duration: Chronic, Recurring Location: Reports: Abdomen, Other (Left flank) Quality: Reports: Same as Previous Episode Severity: Severe Improves with: Reports: None Worsens with: Reports: None Associated Symptoms: Reports: No Other Symptoms Treatments EXAM PROCTOR: Reports: Other Medication(s) left flank Pain Score (Numeric/FACES): 8 - Related Data Allergies Allergy/AdvReac Type Severity Reaction Status Date / Time amoxicillin [Amoxicillin] Allergy Rash Verified 10/30/20 10:50 bee venom protein (honey bee) Allergy Cannot Verified 10/30/20 10:50 Remember butorphanol [From Stadol] Allergy Hallucinati Verified 10/30/20 10:50 ons haloperidol [From Haldol] Allergy Hallucinati Verified 10/30/20 10:50 ons ketorolac tromethamine Allergy Rash Verified 10/30/20 10:50 [From Toradol] metoclopramide [From Reglan] Allergy Agitation Verified 10/30/20 10:50 promethazine HCl Allergy Hallucinati Verified 10/30/20 10:50 [From Phenergan] ons tramadol HCl [From Ultram] Allergy Rash Verified 10/30/20 10:50 Home Meds: Home Meds Tamsulosin HCl [Flomax] 0.4 mg PO BID 05/30/20 [History] Ondansetron [Zofran] 8 mg PO TID PRN 06/21/20 [History] Docusate Sodium [Colace] 100 mg PO BID PRN 10/21/20 [History] Losartan [Cozaar] 25 mg PO BEDTIME 10/24/20 [History] Past Medical History - Past Health History Medical/Surgical History: Denies Medical/Surgical History HEENT History: Reports: None Cardiovascular History: Reports: None Respiratory History: Reports: None Gastrointestinal History: Reports: Cholelithiasis, Gastritis, GERD Other Gastrointestinal History: gallbladder pain Genitourinary History: Reports: Renal Calculus, Other (See Below) 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 Hematologic History: Reports: None Immunologic History: Reports: None Oncologic (Cancer) History: Reports: None Dermatologic History: Reports: None - Infectious Disease History Infectious Disease History: Reports: Chicken Pox, Novel Coronavirus - Past Surgical History Head Surgeries/Procedures: Reports: None HEENT Surgical History: Reports: None Cardiovascular Surgical History: Reports: None GI Surgical History: Reports: Appendectomy, Cholecystectomy Male Surgical History: Reports: Circumcision Other Male Surgeries/Procedures: Has had kidney biopsy Musculoskeletal Surgical History: Reports: Other (See Below) Other Musculoskeletal Surgeries/Procedures:: left arm Social & Family History - Family History Family Medical History: No Pertinent Family History - Caffeine Use Caffeine Use: Reports: None Caffeine Use Comment: 32 oz daily - Living Situation & Occupation Living situation: Reports: Single, Alone Occupation: Employed ED ROS GENERAL - Review of Systems Review Of Systems: Comprehensive ROS is negative, except as noted in HPI. ED EXAM, RENAL/ - Physical Exam Exam: See Below Exam Limited By: No Limitations General Appearance: Alert, No Apparent Distress, Obese Nose: Normal Inspection Throat/Mouth: Normal Lips, Normal Voice, No Airway Compromise Head: Atraumatic, Normocephalic Neck: Normal Inspection Respiratory/Chest: No Respiratory Distress, Lungs Clear, Normal Breath Sounds Cardiovascular: Regular Rate, Rhythm, No Edema GI/Abdominal: Normal Bowel Sounds, Soft, Non-Tender, Other (Obese abdomen with generalized left sided tenderness, no peritoneal signs) (Male) Exam: Deferred Rectal (Males) Exam: Deferred Back Exam: Full Range of Motion, CVA Tenderness (L). No: CVA Tenderness (R), Vertebral Tenderness Neurological: Alert, Oriented, No Motor/Sensory Deficits Psychiatric: Normal Mood Skin Exam: Warm, Dry, Intact, Normal Color, No Rash Course - Vital Signs Last Recorded V/S: Last Vital Signs Temp 97.6 F 10/30/20 10:44 Pulse 63 10/30/20 10:44 Resp 20 10/30/20 10:44 BP 119/84 10/30/20 10:44 Pulse Ox 100 10/30/20 10:44 - Orders/Labs/Meds Meds: Medications Discontinued Medications Generic Name Dose Route Start Last Admin Trade Name Chavo PRN Reason Stop Dose Admin Hydromorphone HCl 2 mg 10/30/20 10:53 Dilaudid IM 10/30/20 10:54 ONETIME ONE Ondansetron HCl 8 mg 10/30/20 10:52 Zofran IM 10/30/20 10:53 ONETIME ONE Departure - Departure Time of Disposition: 11:15 Disposition: Home, Self-Care 01 Condition: Good Clinical Impression: Loin pain hematuria syndrome, History of Henoch-Schonlein purpura, Left flank pain - Discharge Information Instructions: Flank Pain, Adult, [id number], Hematuria, Adult Forms: ED Department Discharge Additional Instructions: Follow up at [place] as planned. Sepsis Event Note (ED) - Focused Exam Vital Signs: Vital Signs Temp Pulse Resp BP Pulse Ox 10/30/20 10:44 97.6 F 63 20 119/84 100 I have read and agree with the documentation that has been completed regarding this visit. By signing this record, I attest that the documentation was completed in my physical presence and is an accurate record of the encounter.
== END 2020-10-30 11:11 | disposition home or self-care (01) ==
LOC: DL.ED 09:44
DX: M54.5 Low back pain (principal); R31.9 Hematuria, unspecified; R10.84 Generalized abdominal pain; R11.2 Nausea with vomiting, unspecified; R19.7 Diarrhea, unspecified; E66.9 Obesity, unspecified; Z68.42 Body mass index [BMI] 45.0-49.9, adult; Z86.16 Personal history of COVID-19; Z88.0 Allergy status to penicillin; Z91.030 Bee allergy status; Z88.8 Allergy status to other drugs, medicaments and biological substances; Z88.5 Allergy status to narcotic agent; Z79.899 Other long term (current) drug therapy
CPT/HCPCS: 96372; 99283; J1170; J2405

== ENCOUNTER 2020-11-06 14:05 | Emergency (ER) | payer MEDICAID ==
[2020-11-06 14:15] VITALS: BP 146/80; PULSE 73
--- NOTE | 2020-11-06 14:29 | EDM.PDOC ---
<Andrez Ahujaias Kashif - Last Filed: 11/06/20 14:44> ED HPI GENERAL MEDICAL PROBLEM - General Chief Complaint: Abdominal Pain Time Seen by Provider: 11/06/20 14:24 Source of Information: Reports: Patient History Limitations: Reports: No Limitations - History of Present Illness INITIAL COMMENTS - FREE TEXT/NARRATIVE: 30 y/o M C/O L flank pain x 8 hrs after riding in a car all day from traveling from [place] to [place]. Pt was evaluated in [facility] for his Loin Pain Hematuria Syndrome. Pt reports today's pain feels exactly like the pain he gets from his Hematuria Syndrome. Pn is 9/10 originates in the L flank and wraps around into his lower abd/pelvis. Denies pittman, cp, db, fever, cough, chills, extremity pain. Onset: Today Duration: Hour(s): Location: Reports: Abdomen, Back Quality: Reports: Ache Severity: Severe Improves with: Reports: None Worsens with: Reports: None Abdominal Pain Score (Numeric/FACES): 8 - Related Data Allergies Allergy/AdvReac Type Severity Reaction Status Date / Time amoxicillin [Amoxicillin] Allergy Rash Verified 11/06/20 14:11 bee venom protein (honey bee) Allergy Cannot Verified 11/06/20 14:11 Remember butorphanol [From Stadol] Allergy Hallucinati Verified 11/06/20 14:11 ons haloperidol [From Haldol] Allergy Hallucinati Verified 11/06/20 14:11 ons ketorolac tromethamine Allergy Rash Verified 11/06/20 14:11 [From Toradol] metoclopramide [From Reglan] Allergy Agitation Verified 11/06/20 14:11 promethazine HCl Allergy Hallucinati Verified 11/06/20 14:11 [From Phenergan] ons tramadol HCl [From Ultram] Allergy Rash Verified 11/06/20 14:11 Home Meds: Home Meds Tamsulosin HCl [Flomax] 0.4 mg PO BID 05/30/20 [History] Ondansetron [Zofran] 8 mg PO TID PRN 06/21/20 [History] Docusate Sodium [Colace] 100 mg PO BID PRN 10/21/20 [History] Losartan [Cozaar] 25 mg PO BEDTIME 10/24/20 [History] Past Medical History - Past Health History Medical/Surgical History: Denies Medical/Surgical History HEENT History: Reports: None Cardiovascular History: Reports: None Respiratory History: Reports: None Gastrointestinal History: Reports: Cholelithiasis, Gastritis, GERD Other Gastrointestinal History: gallbladder pain Genitourinary History: Reports: Renal Calculus, Other (See Below) 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 Hematologic History: Reports: None Immunologic History: Reports: None Oncologic (Cancer) History: Reports: None Dermatologic History: Reports: None - Infectious Disease History Infectious Disease History: Reports: Chicken Pox, Novel Coronavirus - Past Surgical History Head Surgeries/Procedures: Reports: None HEENT Surgical History: Reports: None Cardiovascular Surgical History: Reports: None GI Surgical History: Reports: Appendectomy, Cholecystectomy Male Surgical History: Reports: Circumcision Other Male Surgeries/Procedures: Has had kidney biopsy Musculoskeletal Surgical History: Reports: Other (See Below) Other Musculoskeletal Surgeries/Procedures:: left arm Social & Family History - Family History Family Medical History: No Pertinent Family History - Caffeine Use Caffeine Use: Reports: Soda Caffeine Use Comment: 32 oz daily - Recreational Drug Use Recreational Drug Use: Yes Recreational Drug Type: Reports: Marijuana/Hashish Recreational Drug Use Frequency: Daily - Living Situation & Occupation Living situation: Reports: Single, Alone Occupation: Employed ED ROS GENERAL - Review of Systems Review Of Systems: Comprehensive ROS is negative, except as noted in HPI. ED EXAM, GI/ABD - Physical Exam Exam: See Below Exam Limited By: No Limitations General Appearance: Alert, WD/WN, No Apparent Distress Neck: Normal Inspection, Supple, Non-Tender, Full Range of Motion Respiratory/Chest: No Respiratory Distress, Lungs Clear, Normal Breath Sounds, No Accessory Muscle Use, Chest Non-Tender Cardiovascular: Normal Peripheral Pulses, Regular Rate, Rhythm, No Edema, No Gallop, No JVD, No Murmur, No Rub GI/Abdominal Exam: Other (tender to palpation of the L lower quadrant with no rebound tenderness.) Rectal (Males) Exam: Deferred Back Exam: Other (Tender to the L posterior chest.) Extremities: Normal Inspection, Normal Range of Motion, Non-Tender, Normal Capillary Refill, No Pedal Edema Neurological: Alert, Oriented, CN II-XII Intact, Normal Cognition, Normal Gait, Normal Reflexes, No Motor/Sensory Deficits Psychiatric: Normal Affect, Normal Mood Skin Exam: Warm, Dry, Intact, Normal Color, No Rash Departure - Departure Time of Disposition: 14:44 Disposition: Home, Self-Care 01 Clinical Impression: Loin pain hematuria syndrome, History of Henoch-Schonlein purpura - Discharge Information *PRESCRIPTION DRUG MONITORING PROGRAM REVIEWED*: Not Applicable *COPY OF PRESCRIPTION DRUG MONITORING REPORT IN PATIENT NICO: Not Applicable Instructions: Hematuria, Adult Forms: ED Department Discharge Additional Instructions: Follow up with your primary clinic for ongoing pain management. Sepsis Event Note (ED) - Evaluation Sepsis Screening Result: No Definite Risk <Jovan Villaseñor - Last Filed: 11/06/20 14:48> Course - Vital Signs Last Recorded V/S: Last Vital Signs Temp 98.0 F 11/06/20 14:11 Pulse 73 11/06/20 14:11 Resp 18 11/06/20 14:11 BP 146/80 H 11/06/20 14:11 Pulse Ox 99 11/06/20 14:11 - Orders/Labs/Meds Meds: Medications Discontinued Medications Generic Name Dose Route Start Last Admin Trade Name Chavo PRN Reason Stop Dose Admin Hydromorphone HCl 2 mg 11/06/20 14:30 11/06/20 14:42 Hydromorphone 1 Mg/Ml Syringe IM 11/06/20 14:31 2 mg ONETIME ONE Administration Ondansetron HCl 4 mg 11/06/20 14:32 11/06/20 14:43 Ondansetron 4 Mg Tab.Dis PO 11/06/20 14:33 4 mg ONETIME ONE Administration - Re-Assessments/Exams Free Text/Narrative Re-Assessment/Exam: 11/06/20 14:47 I personally performed or re-performed the physical examination and medical decision making. I have verified all student documentation or findings, including history, physical exam and/or medical decision making. Departure - Departure Condition: Good Sepsis Event Note (ED) - Focused Exam Vital Signs: Vital Signs Temp Pulse Resp BP Pulse Ox 11/06/20 14:11 98.0 F 73 18 146/80 H 99
[2020-11-06] MEDS ORDERED: HYDROmorphone 1 MG/ML Syringe IM ONE (14:30)
[2020-11-06] MEDS ORDERED: Ondansetron 4 MG Tab.DIS PO ONE (14:32)
== END 2020-11-06 14:49 | disposition home or self-care (01) ==
LOC: DL.ED 14:05
DX: N39.8 Other specified disorders of urinary system (principal); E66.9 Obesity, unspecified; Z86.2 Personal history of diseases of the blood and blood-forming organs and certain disorders involving the immune mechanism; Z88.0 Allergy status to penicillin; Z91.030 Bee allergy status; Z88.8 Allergy status to other drugs, medicaments and biological substances; Z88.6 Allergy status to analgesic agent; Z88.5 Allergy status to narcotic agent
CPT/HCPCS: 96372; 99282; 99283; A9270-GY; J1170

== ENCOUNTER 2020-11-19 07:33 | Emergency (ER) | payer MEDICAID ==
[2020-11-19 07:42] VITALS: BP 131/76; PULSE 68
--- NOTE | 2020-11-19 08:38 | EDM.PDOC ---
ED HPI GENERAL MEDICAL PROBLEM - General Chief Complaint: Flank Pain Stated Complaint: KIDNEYS Time Seen by Provider: 11/19/20 08:15 Source of Information: Reports: Patient History Limitations: Reports: No Limitations - History of Present Illness INITIAL COMMENTS - FREE TEXT/NARRATIVE: This 30 yo male patient reports to the ED with increased back (kidney) pain over the past 2 days. The patient reports he does not have any oral pain medications left. The patient reports he does have an appointment for 11/23/20 with Beto Campuzano. The patient also reports he has an appointment next month in [place] for surgery. The patient was seen in this ED on 11/06/20 and 11/10/20 for similar symptoms and was discharged with a script for Oxycodone with each of those visits. Discussed the patient with [facility]. Review of the patient's records from [place] shows that the patient was given a script on 11/04/20 for Oxycodone (10 mg) #50. The patient reports the doctor changed that script to Oxycodone (5 mg). When the patient was addressed about the visit from [place], the patient initially reported that he was not given anything for his pain, but when mentioned the patient reported that the doctor changed his script as reported above. The patient reports he has not take any Oxycodone for the past 2 days due to not having any left at this time. The patient also had a visit with Beto Campuzano on 11/09/20 and was denied a refill on his Oxycodone. Onset Date: 11/18/20 Duration: Constant Location: Reports: Other Quality: Reports: Ache Severity: Moderate Improves with: Reports: None Worsens with: Reports: None Context: Reports: Other Associated Symptoms: Reports: No Other Symptoms Bilateral Flank Pain Score (Numeric/FACES): 8 - Related Data Allergies Allergy/AdvReac Type Severity Reaction Status Date / Time amoxicillin [Amoxicillin] Allergy Rash Verified 11/19/20 07:45 bee venom protein (honey bee) Allergy Cannot Verified 11/19/20 07:45 Remember butorphanol [From Stadol] Allergy Hallucinati Verified 11/19/20 07:45 ons haloperidol [From Haldol] Allergy Hallucinati Verified 11/19/20 07:45 ons ketorolac tromethamine Allergy Rash Verified 11/19/20 07:45 [From Toradol] metoclopramide [From Reglan] Allergy Agitation Verified 11/19/20 07:45 promethazine HCl Allergy Hallucinati Verified 11/19/20 07:45 [From Phenergan] ons tramadol HCl [From Ultram] Allergy Rash Verified 11/19/20 07:45 Home Meds: Home Meds Tamsulosin HCl [Flomax] 0.4 mg PO BID 05/30/20 [History] Ondansetron [Zofran] 8 mg PO TID PRN 06/21/20 [History] Docusate Sodium [Colace] 100 mg PO BID PRN 10/21/20 [History] Losartan [Cozaar] 25 mg PO BEDTIME 10/24/20 [History] Past Medical History - Past Health History Medical/Surgical History: Denies Medical/Surgical History HEENT History: Reports: None Cardiovascular History: Reports: None Respiratory History: Reports: None Gastrointestinal History: Reports: Cholelithiasis, Gastritis, GERD Other Gastrointestinal History: gallbladder pain Genitourinary History: Reports: Renal Calculus, Other (See Below) 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 Hematologic History: Reports: None Immunologic History: Reports: None Oncologic (Cancer) History: Reports: None Dermatologic History: Reports: None - Infectious Disease History Infectious Disease History: Reports: Chicken Pox, Novel Coronavirus - Past Surgical History Head Surgeries/Procedures: Reports: None HEENT Surgical History: Reports: None Cardiovascular Surgical History: Reports: None GI Surgical History: Reports: Appendectomy, Cholecystectomy Male Surgical History: Reports: Circumcision Other Male Surgeries/Procedures: Has had kidney biopsy Musculoskeletal Surgical History: Reports: Other (See Below) Other Musculoskeletal Surgeries/Procedures:: left arm Social & Family History - Family History Family Medical History: No Pertinent Family History - Tobacco Use Tobacco Use Status *Q: Never Tobacco User - Caffeine Use Caffeine Use: Reports: Coffee Caffeine Use Comment: 32 oz daily - Recreational Drug Use Recreational Drug Use: No - Living Situation & Occupation Living situation: Reports: Single, Alone Occupation: Employed ED ROS GENERAL - Review of Systems Review Of Systems: Comprehensive ROS is negative, except as noted in HPI. ED EXAM, RENAL/ - Physical Exam Exam: See Below Exam Limited By: No Limitations General Appearance: Alert, WD/WN, Moderate Distress, Obese Eye Exam: Bilateral Eye: EOMI, Normal Inspection, PERRL Ears: Normal External Exam, Normal Canal, Hearing Grossly Normal, Normal TMs Nose: Normal Inspection, Normal Mucosa, No Blood Throat/Mouth: Normal Inspection, Normal Lips, Normal Teeth, Normal Gums, Normal Oropharynx, Normal Voice, No Airway Compromise Head: Atraumatic, Normocephalic Neck: Normal Inspection, Supple, Non-Tender, Full Range of Motion Respiratory/Chest: No Respiratory Distress, Lungs Clear, Normal Breath Sounds, No Accessory Muscle Use, Chest Non-Tender Cardiovascular: Normal Peripheral Pulses, Regular Rate, Rhythm, No Edema, No Gallop, No JVD, No Murmur, No Rub GI/Abdominal: Normal Bowel Sounds, No Organomegaly, No Distention, No Abnormal Bruit, No Mass, Tender, Abnormal Bowel Sounds (Male) Exam: Deferred Rectal (Males) Exam: Deferred Back Exam: Normal Inspection, Full Range of Motion, NT Extremities: Normal Inspection, Normal Range of Motion, Non-Tender, Normal Capillary Refill, No Pedal Edema Neurological: Alert, Oriented, CN II-XII Intact, Normal Cognition, Normal Gait, Normal Reflexes, No Motor/Sensory Deficits Psychiatric: Normal Affect, Normal Mood Skin Exam: Warm, Dry, Intact, Normal Color, No Rash Lymphatic: No Adenopathy Course - Vital Signs Last Recorded V/S: Last Vital Signs Temp 35.9 C L 11/19/20 07:41 Pulse 68 11/19/20 07:41 Resp 16 11/19/20 07:41 BP 131/76 11/19/20 07:41 Pulse Ox 98 11/19/20 07:41 - Orders/Labs/Meds Orders: Active Orders 24 hr Category Date Time Status DRUG SCREEN URINE BIORAD [URCHEM] Stat Lab 11/19/20 08:28 Received UA RFX MARGARITA AND CULT IF INDIC [URIN] Urgent Lab 11/19/20 08:28 Received Departure - Departure Time of Disposition: 09:00 Disposition: Home, Self-Care 01 Condition: Fair Clinical Impression: Loin pain hematuria syndrome - Discharge Information *PRESCRIPTION DRUG MONITORING PROGRAM REVIEWED*: Not Applicable *COPY OF PRESCRIPTION DRUG MONITORING REPORT IN PATIENT NICO: Not Applicable Care Plan Goals: The patient was advised of the examination and lab results during the visit. The patient was given an injection of Dilaudid while in the ED. The patient was encouraged to see his primary care facility for treatment of chronic pain. If the patient has any additional symptoms or concerns, the patient should either return to the emergency department or visit his primary care facility. Sepsis Event Note (ED) - Evaluation Sepsis Screening Result: No Definite Risk - Focused Exam Vital Signs: Vital Signs Temp Pulse Resp BP Pulse Ox 11/19/20 07:41 35.9 C L 68 16 131/76 98 - My Orders Last 24 Hours: My Active Orders 11/19/20 08:28 DRUG SCREEN URINE BIORAD [URCHEM] Stat UA RFX MARGARITA AND CULT IF INDIC [URIN] Urgent - Assessment/Plan Last 24 Hours: My Active Orders 11/19/20 08:28 DRUG SCREEN URINE BIORAD [URCHEM] Stat UA RFX MARGARITA AND CULT IF INDIC [URIN] Urgent
[2020-11-19] MEDS ORDERED: HYDROmorphone 1 MG/ML Syringe IM ONE (08:45)
== END 2020-11-19 09:08 | disposition home or self-care (01) ==
LOC: DL.ED 07:33
DX: M54.5 Low back pain (principal); R31.9 Hematuria, unspecified; E66.9 Obesity, unspecified; Z68.42 Body mass index [BMI] 45.0-49.9, adult; Z88.0 Allergy status to penicillin; Z91.030 Bee allergy status; Z88.8 Allergy status to other drugs, medicaments and biological substances; Z88.5 Allergy status to narcotic agent; Z79.899 Other long term (current) drug therapy
CPT/HCPCS: 80305; 81001; 96372; 99283; 99284; J1170

== ENCOUNTER 2020-11-21 21:58 | Emergency (ER) | payer MEDICAID ==
[2020-11-21 22:13] VITALS: BP 134/87; PULSE 83
[2020-11-21] MEDS ORDERED: HYDROmorphone 1 MG/ML Syringe IM ONE (22:26)
[2020-11-21] MEDS ORDERED: Ondansetron 4 MG Tab.DIS PO ONE (22:28)
--- NOTE | 2020-11-21 22:36 | EDM.PDOC ---
ED HPI GENERAL MEDICAL PROBLEM - General Chief Complaint: Genitourinary Problem Stated Complaint: KIDNEY PAIN Time Seen by Provider: 11/21/20 22:28 Source of Information: Reports: Patient, Family (Mother), RN, RN Notes Reviewed History Limitations: Reports: No Limitations - History of Present Illness INITIAL COMMENTS - FREE TEXT/NARRATIVE: Patient presents to the ED via personal vehicle with mother for complaints of bilateral flank pain. Patient reports he woke with this pain this morning, and it has progressively worsened throughout the day. He states he took his previously prescribed oxycodone at approximately 1400 this afternoon which offered him little to no alleviation of symptoms. The patient reports he did not take any analgesics prior to this or following this as he was in too much pain. He states he is not currently experiencing hematuria and is able to fully void when he urinates. He denies fever, shaking chills, palpitations, vomiting, diarrhea, or constipation. He does attest to nausea, suprapubic tenderness, and dysuria. The patient states he is scheduled for an allograft at the [facility] in January 2021. He states he is currently following with Dr. Granger at [facility] for medication management. In addition to the oxycodone he has been prescribed Cymbalta daily and naproxen as needed for pain exacerbations, per care plan of his surgical team at the [facility]. He did not take any naproxen for this current pain exacerbation. Treatments ROD WELDER: Reports: Acetaminophen Other Treatments ROD WELDER: Oxycodone Bilateral Flank Pain Score (Numeric/FACES): 10 - Related Data Allergies Allergy/AdvReac Type Severity Reaction Status Date / Time amoxicillin [Amoxicillin] Allergy Rash Verified 11/21/20 22:14 bee venom protein (honey bee) Allergy Cannot Verified 11/21/20 22:14 Remember butorphanol [From Stadol] Allergy Hallucinati Verified 11/21/20 22:14 ons haloperidol [From Haldol] Allergy Hallucinati Verified 11/21/20 22:14 ons ketorolac tromethamine Allergy Rash Verified 11/21/20 22:14 [From Toradol] metoclopramide [From Reglan] Allergy Agitation Verified 11/21/20 22:14 promethazine HCl Allergy Hallucinati Verified 11/21/20 22:14 [From Phenergan] ons tramadol HCl [From Ultram] Allergy Rash Verified 11/21/20 22:14 Home Meds: Home Meds Tamsulosin HCl [Flomax] 0.4 mg PO BID 05/30/20 [History] Ondansetron [Zofran] 8 mg PO TID PRN 06/21/20 [History] Docusate Sodium [Colace] 100 mg PO BID PRN 10/21/20 [History] Losartan [Cozaar] 25 mg PO BEDTIME 10/24/20 [History] oxyCODONE ER [OxyCONTIN] 10 mg PO Q6HR PRN 11/21/20 [History] Past Medical History - Past Health History Medical/Surgical History: Denies Medical/Surgical History HEENT History: Reports: None Cardiovascular History: Reports: None Respiratory History: Reports: None Gastrointestinal History: Reports: Cholelithiasis, Gastritis, GERD Other Gastrointestinal History: gallbladder pain Genitourinary History: Reports: Renal Calculus, Other (See Below) 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 Hematologic History: Reports: None Immunologic History: Reports: None Oncologic (Cancer) History: Reports: None Dermatologic History: Reports: None - Infectious Disease History Infectious Disease History: Reports: Chicken Pox, Novel Coronavirus - Past Surgical History Head Surgeries/Procedures: Reports: None HEENT Surgical History: Reports: None Cardiovascular Surgical History: Reports: None GI Surgical History: Reports: Appendectomy, Cholecystectomy Male Surgical History: Reports: Circumcision Other Male Surgeries/Procedures: Has had kidney biopsy Musculoskeletal Surgical History: Reports: Other (See Below) Other Musculoskeletal Surgeries/Procedures:: left arm Social & Family History - Family History Family Medical History: No Pertinent Family History - Tobacco Use Tobacco Use Status *Q: Current Status Unknown Second Hand Smoke Exposure: No - Caffeine Use Caffeine Use: Reports: None Caffeine Use Comment: 32 oz daily - Recreational Drug Use Recreational Drug Use: No - Living Situation & Occupation Living situation: Reports: Single, Alone Occupation: Employed ED ROS GENERAL - Review of Systems Review Of Systems: Comprehensive ROS is negative, except as noted in HPI. ED EXAM, RENAL/ - Physical Exam Exam: See Below Exam Limited By: No Limitations General Appearance: Alert, Mild Distress (Bilateral flank pain), Obese Eye Exam: Bilateral Eye: EOMI, Normal Inspection, PERRL (5 mm) Throat/Mouth: Normal Inspection, Normal Voice, No Airway Compromise Head: Atraumatic, Normocephalic Respiratory/Chest: No Respiratory Distress, Lungs Clear, Normal Breath Sounds, No Accessory Muscle Use, Chest Non-Tender Cardiovascular: Normal Peripheral Pulses, Regular Rate, Rhythm, No Edema, No Gallop, No JVD, No Murmur, No Rub GI/Abdominal: Normal Bowel Sounds, Soft, No Organomegaly, No Distention, No Mass, Pelvis Stable, Tender (Suprapubic tenderness) (Male) Exam: Deferred Rectal (Males) Exam: Deferred Back Exam: CVA Tenderness (L) (Left greater than right), CVA Tenderness (R), Decreased Range of Motion. No: Muscle Spasm, Paraspinal Tenderness, Vertebral Tenderness Extremities: Normal Inspection, Normal Range of Motion, Non-Tender, No Pedal Edema, Normal Capillary Refill Neurological: Alert, Oriented, CN II-XII Intact, Normal Cognition, Normal Gait, No Motor/Sensory Deficits Psychiatric: Anxious Skin Exam: Warm, Dry, Intact, Normal Color, No Rash. No: Ecchymosis, Erythema, Jaundice, Mottled, Pallor, Petechiae Course - Vital Signs Last Recorded V/S: Last Vital Signs Temp 98.5 F 11/21/20 22:07 Pulse 83 11/21/20 22:07 Resp 19 11/21/20 22:07 BP 134/87 11/21/20 22:07 Pulse Ox 100 11/21/20 22:07 - Orders/Labs/Meds Meds: Medications Discontinued Medications Generic Name Dose Route Start Last Admin Trade Name Chavo PRN Reason Stop Dose Admin Hydromorphone HCl 2 mg 11/21/20 22:26 11/21/20 22:45 Hydromorphone 1 Mg/Ml Syringe IM 11/21/20 22:27 2 mg ONETIME ONE Administration Ondansetron HCl 4 mg 11/21/20 22:28 11/21/20 22:45 Ondansetron 4 Mg Tab.Dis PO 11/21/20 22:29 4 mg ONETIME ONE Administration - Re-Assessments/Exams Free Text/Narrative Re-Assessment/Exam: 11/21/20 Patient verbalizes improvement in pain following Dilaudid administration. Patient verbalized improvement in nausea following Zofran administration. Patient is requesting discharge from the emergency room as he feels better. Departure - Departure Time of Disposition: 22:55 Disposition: Home, Self-Care 01 Condition: Good Clinical Impression: Bilateral flank pain, Nausea, Hematuria syndrome - Discharge Information *PRESCRIPTION DRUG MONITORING PROGRAM REVIEWED*: Not Applicable *COPY OF PRESCRIPTION DRUG MONITORING REPORT IN PATIENT NICO: Not Applicable Referrals: PCP,None [Primary Care Provider] - Forms: ED Department Discharge Additional Instructions: 1.) Follow up with your primary care provider regarding today's visit. 2.) Even when your pain is bad, trial your previously prescribed medications first for relief of pain. Sepsis Event Note (ED) - Evaluation Sepsis Screening Result: No Definite Risk - Focused Exam Vital Signs: Vital Signs Temp Pulse Resp BP Pulse Ox 11/21/20 22:07 98.5 F 83 19 134/87 100
== END 2020-11-21 23:03 | disposition home or self-care (01) ==
LOC: DL.ED 21:58
DX: R10.9 Unspecified abdominal pain (principal); R31.9 Hematuria, unspecified; R11.0 Nausea; E66.9 Obesity, unspecified; Z68.41 Body mass index [BMI] 40.0-44.9, adult; Z86.16 Personal history of COVID-19; Z88.0 Allergy status to penicillin; Z91.030 Bee allergy status; Z88.8 Allergy status to other drugs, medicaments and biological substances; Z88.5 Allergy status to narcotic agent; Z79.899 Other long term (current) drug therapy
CPT/HCPCS: 96372; 99283; A9270; J1170

== ENCOUNTER 2020-11-22 09:55 | Emergency (ER) | payer MEDICAID ==
[2020-11-22] MEDS ORDERED: HYDROmorphone 1 MG/ML Syringe IM ONE (12:12)
[2020-11-22] MEDS ORDERED: Ondansetron 4 MG Tab.DIS PO ONE (12:12)
[2020-11-22 12:14] VITALS: BP 139/78; PULSE 67
--- NOTE | 2020-11-22 12:20 | EDM.PDOC ---
ED HPI GENERAL MEDICAL PROBLEM - General Chief Complaint: Genitourinary Problem Stated Complaint: KIDNEY PAIN Time Seen by Provider: 11/22/20 12:05 Source of Information: Reports: Patient, RN, RN Notes Reviewed History Limitations: Reports: No Limitations - History of Present Illness INITIAL COMMENTS - FREE TEXT/NARRATIVE: Patient is a 30-year-old male who presents to ER with complaint of flank pain, left greater than right. 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 States he had a flareup that began yesterday and has been quite painful. Was into the ER last evening, did receive medications which helped him until this morning. Patient states he is also using Tylenol with Benadryl. Rates pain 9/10, and admits to nausea with the pain. Patient states he has been staying hydrated, but his urine is still dark and bloody as well. Patient has been referred to the [facility], has had his consult there, and has been scheduled for surgery in January. Onset: Other Bilateral Flank Pain Score (Numeric/FACES): 8 - Related Data Allergies Allergy/AdvReac Type Severity Reaction Status Date / Time amoxicillin [Amoxicillin] Allergy Rash Verified 11/22/20 12:03 bee venom protein (honey bee) Allergy Cannot Verified 11/22/20 12:03 Remember butorphanol [From Stadol] Allergy Hallucinati Verified 11/22/20 12:03 ons haloperidol [From Haldol] Allergy Hallucinati Verified 11/22/20 12:03 ons ketorolac tromethamine Allergy Rash Verified 11/22/20 12:03 [From Toradol] metoclopramide [From Reglan] Allergy Agitation Verified 11/22/20 12:03 promethazine HCl Allergy Hallucinati Verified 11/22/20 12:03 [From Phenergan] ons tramadol HCl [From Ultram] Allergy Rash Verified 11/22/20 12:03 Home Meds: Home Meds Tamsulosin HCl [Flomax] 0.4 mg PO BID 05/30/20 [History] Ondansetron [Zofran] 8 mg PO TID PRN 06/21/20 [History] Docusate Sodium [Colace] 100 mg PO BID PRN 10/21/20 [History] Losartan [Cozaar] 25 mg PO BEDTIME 10/24/20 [History] oxyCODONE ER [OxyCONTIN] 10 mg PO Q6HR PRN 11/21/20 [History] DULoxetine [Cymbalta] 30 mg PO DAILY 11/22/20 [History] Naproxen 250 mg PO Q8HR PRN 11/22/20 [History] Past Medical History - Past Health History Medical/Surgical History: Denies Medical/Surgical History HEENT History: Reports: None Cardiovascular History: Reports: None Respiratory History: Reports: None Gastrointestinal History: Reports: Cholelithiasis, Gastritis, GERD Other Gastrointestinal History: gallbladder pain Genitourinary History: Reports: Renal Calculus, Other (See Below) 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 Hematologic History: Reports: None Immunologic History: Reports: None Oncologic (Cancer) History: Reports: None Dermatologic History: Reports: None - Infectious Disease History Infectious Disease History: Reports: Chicken Pox, Novel Coronavirus - Past Surgical History Head Surgeries/Procedures: Reports: None HEENT Surgical History: Reports: None Cardiovascular Surgical History: Reports: None GI Surgical History: Reports: Appendectomy, Cholecystectomy Male Surgical History: Reports: Circumcision Other Male Surgeries/Procedures: Has had kidney biopsy Musculoskeletal Surgical History: Reports: Other (See Below) Other Musculoskeletal Surgeries/Procedures:: left arm Social & Family History - Family History Family Medical History: No Pertinent Family History - Caffeine Use Caffeine Use: Reports: None Caffeine Use Comment: 32 oz daily - Living Situation & Occupation Living situation: Reports: Single, Alone Occupation: Employed ED ROS GENERAL - Review of Systems Review Of Systems: Comprehensive ROS is negative, except as noted in HPI. ED EXAM, GENERAL - Physical Exam Exam: See Below Exam Limited By: No Limitations General Appearance: Alert, WD/WN, Moderate Distress Eye Exam: Bilateral Eye: EOMI, Normal Inspection Ears: Normal External Exam, Hearing Grossly Normal Nose: Normal Inspection Throat/Mouth: Normal Inspection, Normal Voice, No Airway Compromise Head: Atraumatic, Normocephalic Neck: Normal Inspection, Supple, Non-Tender, Full Range of Motion Respiratory/Chest: No Respiratory Distress, Lungs Clear, Normal Breath Sounds, No Accessory Muscle Use, Chest Non-Tender Cardiovascular: Normal Peripheral Pulses, Regular Rate, Rhythm, No Edema, No Gallop, No JVD, No Murmur, No Rub Peripheral Pulses: 2+: Radial (L), Radial (R) GI/Abdominal: Normal Bowel Sounds, Soft, Non-Tender (Male) Exam: Deferred Rectal (Males) Exam: Deferred Back Exam: Normal Inspection, Full Range of Motion, CVA Tenderness (L), CVA Tenderness (R) Extremities: Normal Inspection, Normal Range of Motion, Non-Tender, Normal Capillary Refill, No Pedal Edema Neurological: Alert, Oriented, CN II-XII Intact, Normal Cognition, Normal Gait, Normal Reflexes, No Motor/Sensory Deficits Psychiatric: Normal Affect, Normal Mood Skin Exam: Warm Lymphatic: No Adenopathy Course - Vital Signs Last Recorded V/S: Last Vital Signs Temp 98.8 F 11/22/20 11:20 Pulse 67 11/22/20 11:20 Resp 20 11/22/20 11:20 BP 139/78 11/22/20 11:20 Pulse Ox 98 11/22/20 11:20 - Orders/Labs/Meds Meds: Medications Discontinued Medications Generic Name Dose Route Start Last Admin Trade Name Karthikeyanq PRN Reason Stop Dose Admin Hydromorphone HCl 2 mg 11/22/20 12:12 11/22/20 12:22 Hydromorphone 1 Mg/Ml Syringe IM 11/22/20 12:13 2 mg ONETIME ONE Administration Ondansetron HCl 4 mg 11/22/20 12:12 11/22/20 12:22 Ondansetron 4 Mg Tab.Dis PO 11/22/20 12:13 4 mg ONETIME ONE Administration Departure - Departure Time of Disposition: 12:31 Disposition: Home, Self-Care 01 Condition: Good Clinical Impression: Flank pain, History of Henoch-Schonlein purpura, Loin pain hematuria syndrome - Discharge Information *PRESCRIPTION DRUG MONITORING PROGRAM REVIEWED*: No *COPY OF PRESCRIPTION DRUG MONITORING REPORT IN PATIENT NICO: No Instructions: Flank Pain, Adult, [id number], Pain Medicine Instructions, [id number], Hematuria, Adult Forms: ED Department Discharge Additional Instructions: Keep yourself hydrated, drink plenty of water Use Tylenol with Benadryl as directed by your primary care provider Use your pain medications as prescribed Follow-up with your primary care provider Sepsis Event Note (ED) - Evaluation Sepsis Screening Result: No Definite Risk - Focused Exam Vital Signs: Vital Signs Temp Pulse Resp BP Pulse Ox 11/22/20 11:20 98.8 F 67 20 139/78 98
== END 2020-11-22 12:31 | disposition home or self-care (01) ==
LOC: DL.ED 09:55
DX: R10.9 Unspecified abdominal pain (principal); M54.5 Low back pain; R31.9 Hematuria, unspecified; E66.9 Obesity, unspecified; Z68.41 Body mass index [BMI] 40.0-44.9, adult; Z86.16 Personal history of COVID-19; Z88.5 Allergy status to narcotic agent; Z88.8 Allergy status to other drugs, medicaments and biological substances; Z88.0 Allergy status to penicillin; Z91.030 Bee allergy status; Z79.899 Other long term (current) drug therapy
CPT/HCPCS: 96372; 99283; 99284; A9270; J1170

== ENCOUNTER 2020-11-23 04:27 | Emergency (ER) | payer MEDICAID ==
[2020-11-23] MEDS ORDERED: Ondansetron 4 MG Tab.DIS PO ONE (04:34)
[2020-11-23] MEDS ORDERED: HYDROmorphone 1 MG/ML Syringe IM ONE (04:34)
[2020-11-23 04:42] VITALS: BP 190/79; PULSE 70
--- NOTE | 2020-11-23 04:49 | EDM.PDOC ---
ED HPI GENERAL MEDICAL PROBLEM - General Chief Complaint: Flank Pain Stated Complaint: KIDNEYS, PAIN Time Seen by Provider: 11/23/20 04:43 Source of Information: Reports: Patient History Limitations: Reports: No Limitations - History of Present Illness INITIAL COMMENTS - FREE TEXT/NARRATIVE: ED with c/o left flank pain slight bloody urine. No fever. Nausea no vomiting. Chronic pain Has seen specialists.in [place]. New regime while awaiting weight loss etc resumed. Naproxyn Not currently on PPI. Hx GI bleed in past while on NSAID's. - Related Data Allergies Allergy/AdvReac Type Severity Reaction Status Date / Time amoxicillin [Amoxicillin] Allergy Rash Verified 11/23/20 04:35 bee venom protein (honey bee) Allergy Cannot Verified 11/23/20 04:35 Remember butorphanol [From Stadol] Allergy Hallucinati Verified 11/23/20 04:35 ons haloperidol [From Haldol] Allergy Hallucinati Verified 11/23/20 04:35 ons ketorolac tromethamine Allergy Rash Verified 11/23/20 04:35 [From Toradol] metoclopramide [From Reglan] Allergy Agitation Verified 11/23/20 04:35 promethazine HCl Allergy Hallucinati Verified 11/23/20 04:35 [From Phenergan] ons tramadol HCl [From Ultram] Allergy Rash Verified 11/23/20 04:35 Home Meds: Home Meds Tamsulosin HCl [Flomax] 0.4 mg PO BID 05/30/20 [History] Ondansetron [Zofran] 8 mg PO TID PRN 06/21/20 [History] Docusate Sodium [Colace] 100 mg PO BID PRN 10/21/20 [History] Losartan [Cozaar] 25 mg PO BEDTIME 10/24/20 [History] oxyCODONE ER [OxyCONTIN] 10 mg PO Q6HR PRN 11/21/20 [History] DULoxetine [Cymbalta] 30 mg PO DAILY 11/22/20 [History] Naproxen 250 mg PO Q8HR PRN 11/22/20 [History] Past Medical History - Past Health History Medical/Surgical History: Denies Medical/Surgical History HEENT History: Reports: None Cardiovascular History: Reports: None Respiratory History: Reports: None Gastrointestinal History: Reports: Cholelithiasis, Gastritis, GERD Other Gastrointestinal History: gallbladder pain Genitourinary History: Reports: Renal Calculus, Other (See Below) 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 Hematologic History: Reports: None Immunologic History: Reports: None Oncologic (Cancer) History: Reports: None Dermatologic History: Reports: None - Infectious Disease History Infectious Disease History: Reports: Chicken Pox, Novel Coronavirus - Past Surgical History Head Surgeries/Procedures: Reports: None HEENT Surgical History: Reports: None Cardiovascular Surgical History: Reports: None GI Surgical History: Reports: Appendectomy, Cholecystectomy Male Surgical History: Reports: Circumcision Other Male Surgeries/Procedures: Has had kidney biopsy Musculoskeletal Surgical History: Reports: Other (See Below) Other Musculoskeletal Surgeries/Procedures:: left arm Social & Family History - Family History Family Medical History: No Pertinent Family History - Tobacco Use Tobacco Use Status *Q: Former Tobacco User Used Tobacco, but Quit: Yes Month/Year Tobacco Last Used: unknown - Caffeine Use Caffeine Use: Reports: None Caffeine Use Comment: 32 oz daily - Living Situation & Occupation Living situation: Reports: Single, Alone Occupation: Employed ED ROS GENERAL - Review of Systems Review Of Systems: Comprehensive ROS is negative, except as noted in HPI. ED EXAM, RENAL/ - Physical Exam Exam: See Below Exam Limited By: No Limitations General Appearance: Alert, Mild Distress, Obese Ears: Normal External Exam Nose: Normal Inspection Throat/Mouth: Normal Inspection Head: Atraumatic, Normocephalic Neck: Normal Inspection Respiratory/Chest: No Respiratory Distress Cardiovascular: Normal Peripheral Pulses, Regular Rate, Rhythm GI/Abdominal: Normal Bowel Sounds, Soft Back Exam: CVA Tenderness (L) Extremities: Normal Range of Motion Neurological: Alert, Oriented, Normal Cognition Psychiatric: Flat Affect Skin Exam: Warm, Dry, Intact, Normal Color Course - Vital Signs Last Recorded V/S: Last Vital Signs Temp 96.7 F L 11/23/20 04:36 Pulse 70 11/23/20 04:36 Resp 20 11/23/20 04:36 BP 190/79 H 11/23/20 04:36 Pulse Ox 98 11/23/20 04:36 - Orders/Labs/Meds Meds: Medications Discontinued Medications Generic Name Dose Route Start Last Admin Trade Name Chavo PRN Reason Stop Dose Admin Hydromorphone HCl 2 mg 11/23/20 04:34 11/23/20 04:47 Hydromorphone 1 Mg/Ml Syringe IM 11/23/20 04:35 2 mg ONETIME ONE Administration Ondansetron HCl 4 mg 11/23/20 04:34 11/23/20 04:47 Ondansetron 4 Mg Tab.Dis PO 11/23/20 04:35 4 mg ONETIME ONE Administration Departure - Departure Time of Disposition: 04:47 Disposition: Home, Self-Care 01 Condition: Fair Clinical Impression: Flank pain, Nausea - Discharge Information *PRESCRIPTION DRUG MONITORING PROGRAM REVIEWED*: No *COPY OF PRESCRIPTION DRUG MONITORING REPORT IN PATIENT NICO: No Instructions: Flank Pain, Adult, [id number] Forms: ED Department Discharge Additional Instructions: follow up with primary care ongoing pain management omeprozole 20mg one daily on empty stomach take naproxyn with food zofran 4mg every 4 hours as needed for nausea Sepsis Event Note (ED) - Evaluation Sepsis Screening Result: No Definite Risk - Focused Exam Vital Signs: Vital Signs Temp Pulse Resp BP Pulse Ox 11/23/20 04:36 96.7 F L 70 20 190/79 H 98
== END 2020-11-23 05:00 | disposition home or self-care (01) ==
LOC: DL.ED 04:27
DX: R10.9 Unspecified abdominal pain (principal); R11.0 Nausea; R31.9 Hematuria, unspecified; E66.9 Obesity, unspecified; Z68.42 Body mass index [BMI] 45.0-49.9, adult; Z86.16 Personal history of COVID-19; Z87.891 Personal history of nicotine dependence; Z88.5 Allergy status to narcotic agent; Z88.0 Allergy status to penicillin; Z91.030 Bee allergy status; Z88.8 Allergy status to other drugs, medicaments and biological substances; Z88.6 Allergy status to analgesic agent; Z79.899 Other long term (current) drug therapy
CPT/HCPCS: 96372; 99283; A9270; J1170

== ENCOUNTER 2020-11-23 15:02 | Emergency (ER) | payer MEDICAID ==
[2020-11-23 15:21] VITALS: BP 135/87; PULSE 81
[2020-11-23] MEDS ORDERED: HYDROmorphone 1 MG/ML Syringe IM ONE (15:35)
--- NOTE | 2020-11-23 15:49 | EDM.PDOC ---
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 Patient states he has not been making it 12 hours and needing breakthrough pain medication. Patient is taking oxycodone as prescribed by his primary care provider. Patient states he was vomiting and has drank 2 bottles of Pedialyte so the nausea has improved. Patient states he was at work today and felt like a knife was cutting him from the inside out and he was unable to take it any longer. Onset: Gradual Bilateral Flank Pain Score (Numeric/FACES): 10 - Related Data Allergies Allergy/AdvReac Type Severity Reaction Status Date / Time amoxicillin [Amoxicillin] Allergy Rash Verified 11/23/20 15:21 bee venom protein (honey bee) Allergy Cannot Verified 11/23/20 15:21 Remember butorphanol [From Stadol] Allergy Hallucinati Verified 11/23/20 15:21 ons haloperidol [From Haldol] Allergy Hallucinati Verified 11/23/20 15:21 ons ketorolac tromethamine Allergy Rash Verified 11/23/20 15:21 [From Toradol] metoclopramide [From Reglan] Allergy Agitation Verified 11/23/20 15:21 promethazine HCl Allergy Hallucinati Verified 11/23/20 15:21 [From Phenergan] ons tramadol HCl [From Ultram] Allergy Rash Verified 11/23/20 15:21 Home Meds: Home Meds Tamsulosin HCl [Flomax] 0.4 mg PO BID 05/30/20 [History] Ondansetron [Zofran] 8 mg PO TID PRN 06/21/20 [History] Docusate Sodium [Colace] 100 mg PO BID PRN 10/21/20 [History] Losartan [Cozaar] 25 mg PO BEDTIME 10/24/20 [History] oxyCODONE ER [OxyCONTIN] 10 mg PO Q6HR PRN 11/21/20 [History] DULoxetine [Cymbalta] 30 mg PO DAILY 11/22/20 [History] Naproxen 250 mg PO Q8HR PRN 11/22/20 [History] Past Medical History - Past Health History Medical/Surgical History: Denies Medical/Surgical History HEENT History: Reports: None Cardiovascular History: Reports: None Respiratory History: Reports: None Gastrointestinal History: Reports: Cholelithiasis, Gastritis, GERD Other Gastrointestinal History: gallbladder pain Genitourinary History: Reports: Renal Calculus, Other (See Below) 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 Hematologic History: Reports: None Immunologic History: Reports: None Oncologic (Cancer) History: Reports: None Dermatologic History: Reports: None - Infectious Disease History Infectious Disease History: Reports: Chicken Pox, Novel Coronavirus - Past Surgical History Head Surgeries/Procedures: Reports: None HEENT Surgical History: Reports: None Cardiovascular Surgical History: Reports: None GI Surgical History: Reports: Appendectomy, Cholecystectomy Male Surgical History: Reports: Circumcision Other Male Surgeries/Procedures: Has had kidney biopsy Musculoskeletal Surgical History: Reports: Other (See Below) Other Musculoskeletal Surgeries/Procedures:: left arm Social & Family History - Family History Family Medical History: No Pertinent Family History - Tobacco Use Tobacco Use Status *Q: Never Tobacco User - Caffeine Use Caffeine Use: Reports: None Caffeine Use Comment: 32 oz daily - Recreational Drug Use Recreational Drug Use: No - Living Situation & Occupation Living situation: Reports: Single, Alone Occupation: Employed ED ROS GENERAL - Review of Systems Review Of Systems: Comprehensive ROS is negative, except as noted in HPI. ED EXAM, RENAL/ - Physical Exam Exam: See Below Exam Limited By: No Limitations General Appearance: Alert, WD/WN, Moderate Distress Eye Exam: Bilateral Eye: EOMI, Normal Inspection Ears: Normal External Exam, Hearing Grossly Normal Nose: Normal Inspection Throat/Mouth: Normal Inspection, Normal Voice, No Airway Compromise Head: Atraumatic, Normocephalic Neck: Normal Inspection, Supple, Non-Tender, Full Range of Motion Respiratory/Chest: No Respiratory Distress, Lungs Clear, Normal Breath Sounds, No Accessory Muscle Use, Chest Non-Tender Cardiovascular: Normal Peripheral Pulses, Regular Rate, Rhythm, No Edema, No Gallop, No JVD, No Murmur, No Rub GI/Abdominal: Normal Bowel Sounds, Soft, Tender (Male) Exam: Deferred Rectal (Males) Exam: Deferred Back Exam: Normal Inspection, Full Range of Motion, CVA Tenderness (L), CVA Tenderness (R) Extremities: Normal Inspection, Normal Range of Motion, Non-Tender, Normal Capillary Refill, No Pedal Edema Neurological: Alert, Oriented, CN II-XII Intact, Normal Cognition, Normal Gait, Normal Reflexes, No Motor/Sensory Deficits Psychiatric: Normal Affect, Normal Mood Skin Exam: Warm, Dry, Intact, Normal Color, No Rash Lymphatic: No Adenopathy Course - Vital Signs Last Recorded V/S: Last Vital Signs Temp 97.7 F 11/23/20 15:16 Pulse 81 11/23/20 15:16 Resp 16 11/23/20 15:16 BP 135/87 11/23/20 15:16 Pulse Ox 100 11/23/20 15:16 - Orders/Labs/Meds Meds: Medications Discontinued Medications Generic Name Dose Route Start Last Admin Trade Name Freq PRN Reason Stop Dose Admin Hydromorphone HCl 2 mg 11/23/20 15:35 11/23/20 15:46 Hydromorphone 1 Mg/Ml Syringe IM 11/23/20 15:36 2 mg ONETIME ONE Administration Departure - Departure Time of Disposition: 15:53 Disposition: Home, Self-Care 01 Condition: Fair Clinical Impression: HSP (Henoch Schonlein purpura), Loin pain hematuria syndrome - Discharge Information *PRESCRIPTION DRUG MONITORING PROGRAM REVIEWED*: Yes *COPY OF PRESCRIPTION DRUG MONITORING REPORT IN PATIENT NICO: Yes Instructions: Flank Pain, Adult, [id number] Forms: ED Department Discharge Additional Instructions: Follow up with Dr. Hubbard if having continued pain Sepsis Event Note (ED) - Evaluation Sepsis Screening Result: No Definite Risk - Focused Exam Vital Signs: Vital Signs Temp Pulse Resp BP Pulse Ox 11/23/20 15:16 97.7 F 81 16 135/87 100
== END 2020-11-23 15:59 | disposition home or self-care (01) ==
LOC: DL.ED 15:02
DX: M54.5 Low back pain (principal); R31.9 Hematuria, unspecified; D69.0 Allergic purpura; E66.9 Obesity, unspecified; Z86.16 Personal history of COVID-19; Z88.8 Allergy status to other drugs, medicaments and biological substances; Z88.5 Allergy status to narcotic agent; Z88.0 Allergy status to penicillin; Z91.030 Bee allergy status; Z79.899 Other long term (current) drug therapy
CPT/HCPCS: 96372; 99283; J1170

== ENCOUNTER 2020-11-24 07:46 | Emergency (ER) | payer MEDICAID ==
--- NOTE | 2020-11-24 07:59 | EDM.PDOC ---
ED HPI GENERAL MEDICAL PROBLEM - General Chief Complaint: Flank Pain Stated Complaint: KIDNEY PAIN Time Seen by Provider: 11/24/20 07:54 Source of Information: Reports: Patient, Old Records, RN, RN Notes Reviewed History Limitations: Reports: No Limitations - History of Present Illness INITIAL COMMENTS - FREE TEXT/NARRATIVE: Pt presents to ER with c/o severe left flank pain. Pt has Hx of HSP and Loin Pain Hematuria syndrome. He is scheduled for an autologous renal transplant at [facility] next month. Records indicate an increasing frequency of pain related visits to the ER. He has a pain contract which he claims does not preclude him from coming to the ER for breakthrough pain. I did discuss the concern about the pt's escalating narcotic dependence at today's visit. His primary doctor is not in clinic yet this morning, but I will contact him once he is available to come up with a safety plan for the pt's future treatment. Duration: Chronic, Constant, Recurring Location: Reports: Other (Left flank) Quality: Reports: Same as Previous Episode Severity: Severe Improves with: Reports: None Worsens with: Reports: None Associated Symptoms: Reports: No Other Symptoms Flank Pain Score (Numeric/FACES): 8 - Related Data Allergies Allergy/AdvReac Type Severity Reaction Status Date / Time amoxicillin [Amoxicillin] Allergy Rash Verified 11/24/20 08:02 bee venom protein (honey bee) Allergy Cannot Verified 11/24/20 08:02 Remember butorphanol [From Stadol] Allergy Hallucinati Verified 11/24/20 08:02 ons haloperidol [From Haldol] Allergy Hallucinati Verified 11/24/20 08:02 ons ketorolac tromethamine Allergy Rash Verified 11/24/20 08:02 [From Toradol] metoclopramide [From Reglan] Allergy Agitation Verified 11/24/20 08:02 promethazine HCl Allergy Hallucinati Verified 11/24/20 08:02 [From Phenergan] ons tramadol HCl [From Ultram] Allergy Rash Verified 11/24/20 08:02 Home Meds: Home Meds Tamsulosin HCl [Flomax] 0.4 mg PO BID 05/30/20 [History] Ondansetron [Zofran] 8 mg PO TID PRN 06/21/20 [History] Docusate Sodium [Colace] 100 mg PO BID PRN 10/21/20 [History] Losartan [Cozaar] 25 mg PO BEDTIME 10/24/20 [History] oxyCODONE ER [OxyCONTIN] 10 mg PO Q6HR PRN 11/21/20 [History] DULoxetine [Cymbalta] 30 mg PO DAILY 11/22/20 [History] Naproxen 250 mg PO Q8HR PRN 11/22/20 [History] Past Medical History - Past Health History Medical/Surgical History: Denies Medical/Surgical History HEENT History: Reports: None Cardiovascular History: Reports: None Respiratory History: Reports: None Gastrointestinal History: Reports: Cholelithiasis, Gastritis, GERD Other Gastrointestinal History: gallbladder pain Genitourinary History: Reports: Renal Calculus, Other (See Below) 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 Hematologic History: Reports: None Immunologic History: Reports: None Oncologic (Cancer) History: Reports: None Dermatologic History: Reports: None - Infectious Disease History Infectious Disease History: Reports: Chicken Pox, Novel Coronavirus - Past Surgical History Head Surgeries/Procedures: Reports: None HEENT Surgical History: Reports: None Cardiovascular Surgical History: Reports: None GI Surgical History: Reports: Appendectomy, Cholecystectomy Male Surgical History: Reports: Circumcision Other Male Surgeries/Procedures: Has had kidney biopsy Musculoskeletal Surgical History: Reports: Other (See Below) Other Musculoskeletal Surgeries/Procedures:: left arm Social & Family History - Family History Family Medical History: No Pertinent Family History - Caffeine Use Caffeine Use: Reports: None Caffeine Use Comment: 32 oz daily - Living Situation & Occupation Living situation: Reports: Single, Alone Occupation: Employed ED ROS GENERAL - Review of Systems Review Of Systems: Comprehensive ROS is negative, except as noted in HPI. ED EXAM, RENAL/ - Physical Exam Exam: See Below Exam Limited By: No Limitations General Appearance: Alert, No Apparent Distress, Obese Throat/Mouth: Normal Voice, No Airway Compromise Head: Atraumatic, Normocephalic Neck: Normal Inspection Respiratory/Chest: No Respiratory Distress, Lungs Clear Cardiovascular: Regular Rate, Rhythm GI/Abdominal: Soft, Tender (LUQ, LLQ). No: Guarding, Rigid, Rebound Back Exam: CVA Tenderness (L). No: CVA Tenderness (R) Extremities: Normal Inspection Neurological: Alert, Oriented, CN II-XII Intact, Normal Cognition, Normal Gait, No Motor/Sensory Deficits Psychiatric: Normal Affect, Normal Mood Skin Exam: Warm, Dry, Intact, Normal Color, No Rash. No: Ecchymosis, Jaundice, Petechiae Course - Vital Signs Last Recorded V/S: Last Vital Signs Temp 98.1 F 11/24/20 07:55 Pulse 68 11/24/20 07:55 Resp 16 11/24/20 07:55 BP 109/76 11/24/20 07:55 Pulse Ox 100 11/24/20 07:55 - Orders/Labs/Meds Orders: Active Orders 24 hr Category Date Time Status HYDROmorphone [Dilaudid] Med 11/24/20 08:22 Once 2 mg IM ONETIME ONE Departure - Departure Time of Disposition: 08:30 Disposition: Home, Self-Care 01 Condition: Good Clinical Impression: Loin pain hematuria syndrome, History of Henoch-Schonlein purpura - Discharge Information *PRESCRIPTION DRUG MONITORING PROGRAM REVIEWED*: No *COPY OF PRESCRIPTION DRUG MONITORING REPORT IN PATIENT NICO: No Instructions: Flank Pain, Adult, [id number] Forms: ED Department Discharge Additional Instructions: Contact your primary doctor today to develop a pain management plan. Sepsis Event Note (ED) - Focused Exam Vital Signs: Vital Signs Temp Pulse Resp BP Pulse Ox 11/24/20 07:55 98.1 F 68 16 109/76 100 - My Orders Last 24 Hours: My Active Orders 11/24/20 08:22 HYDROmorphone [Dilaudid] 2 mg IM ONETIME ONE - Assessment/Plan Last 24 Hours: My Active Orders 11/24/20 08:22 HYDROmorphone [Dilaudid] 2 mg IM ONETIME ONE
[2020-11-24 08:03] VITALS: BP 109/76; PULSE 68
[2020-11-24] MEDS ORDERED: HYDROmorphone 1 MG/ML Syringe IM ONE (08:22)
== END 2020-11-24 08:53 | disposition home or self-care (01) ==
LOC: DL.ED 07:46
DX: N39.8 Other specified disorders of urinary system (principal); E66.9 Obesity, unspecified; Z68.42 Body mass index [BMI] 45.0-49.9, adult; Z86.2 Personal history of diseases of the blood and blood-forming organs and certain disorders involving the immune mechanism; Z88.1 Allergy status to other antibiotic agents; Z91.030 Bee allergy status; Z88.6 Allergy status to analgesic agent; Z88.5 Allergy status to narcotic agent; Z88.8 Allergy status to other drugs, medicaments and biological substances; Z79.899 Other long term (current) drug therapy
CPT/HCPCS: 96372; 99283; J1170

== ENCOUNTER 2020-11-27 11:17 | Emergency (ER) | payer MEDICAID ==
[2020-11-27] MEDS ORDERED: HYDROmorphone 1 MG/ML Syringe IM ONE (11:23)
--- NOTE | 2020-11-27 11:27 | EDM.PDOC ---
ED HPI GENERAL MEDICAL PROBLEM - General Chief Complaint: Flank Pain Stated Complaint: kidneys/pain Time Seen by Provider: 11/27/20 11:24 Source of Information: Reports: Patient, Old Records, RN, RN Notes Reviewed History Limitations: Reports: No Limitations - History of Present Illness INITIAL COMMENTS - FREE TEXT/NARRATIVE: Pt presents to ER with c/o severe left flank pain. Pt has Hx of loin pain hematuria syndrome and HSP. He has established with [facility] being evaluated for autologous kidney transplant. Last week I had a lengthy discussion with the pt about inappropriate use of ER to meet his chronic pain needs. Pt was receptive and has an appointment established with Dr. Hubbard on November 30 for chronic pain management. Duration: Chronic, Recurring Location: Reports: Other (Left flank) Quality: Reports: Ache, Same as Previous Episode Severity: Severe Improves with: Reports: None Worsens with: Reports: None Associated Symptoms: Reports: No Other Symptoms - Related Data Allergies Allergy/AdvReac Type Severity Reaction Status Date / Time amoxicillin [Amoxicillin] Allergy Rash Verified 11/27/20 11:24 bee venom protein (honey bee) Allergy Cannot Verified 11/27/20 11:24 Remember butorphanol [From Stadol] Allergy Hallucinati Verified 11/27/20 11:24 ons haloperidol [From Haldol] Allergy Hallucinati Verified 11/27/20 11:24 ons ketorolac tromethamine Allergy Rash Verified 11/27/20 11:24 [From Toradol] metoclopramide [From Reglan] Allergy Agitation Verified 11/27/20 11:24 promethazine HCl Allergy Hallucinati Verified 11/27/20 11:24 [From Phenergan] ons tramadol HCl [From Ultram] Allergy Rash Verified 11/27/20 11:24 Home Meds: Home Meds Tamsulosin HCl [Flomax] 0.4 mg PO BID 05/30/20 [History] Ondansetron [Zofran] 8 mg PO TID PRN 06/21/20 [History] Docusate Sodium [Colace] 100 mg PO BID PRN 10/21/20 [History] Losartan [Cozaar] 25 mg PO BEDTIME 10/24/20 [History] oxyCODONE ER [OxyCONTIN] 10 mg PO Q6HR PRN 11/21/20 [History] DULoxetine [Cymbalta] 30 mg PO DAILY 11/22/20 [History] Naproxen 250 mg PO Q8HR PRN 11/22/20 [History] Past Medical History - Past Health History Medical/Surgical History: Denies Medical/Surgical History HEENT History: Reports: None Cardiovascular History: Reports: None Respiratory History: Reports: None Gastrointestinal History: Reports: Cholelithiasis, Gastritis, GERD Other Gastrointestinal History: gallbladder pain Genitourinary History: Reports: Renal Calculus, Other (See Below) 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 Hematologic History: Reports: None Immunologic History: Reports: None Oncologic (Cancer) History: Reports: None Dermatologic History: Reports: None - Infectious Disease History Infectious Disease History: Reports: Chicken Pox, Novel Coronavirus - Past Surgical History Head Surgeries/Procedures: Reports: None HEENT Surgical History: Reports: None Cardiovascular Surgical History: Reports: None GI Surgical History: Reports: Appendectomy, Cholecystectomy Male Surgical History: Reports: Circumcision Other Male Surgeries/Procedures: Has had kidney biopsy Musculoskeletal Surgical History: Reports: Other (See Below) Other Musculoskeletal Surgeries/Procedures:: left arm Social & Family History - Family History Family Medical History: No Pertinent Family History - Caffeine Use Caffeine Use: Reports: Coffee Caffeine Use Comment: 32 oz daily - Living Situation & Occupation Living situation: Reports: Single, Alone Occupation: Employed ED ROS GENERAL - Review of Systems Review Of Systems: Comprehensive ROS is negative, except as noted in HPI. ED EXAM, RENAL/ - Physical Exam Exam: See Below Exam Limited By: No Limitations General Appearance: Alert, No Apparent Distress, Obese Throat/Mouth: Normal Voice, No Airway Compromise Head: Atraumatic, Normocephalic Neck: Normal Inspection Respiratory/Chest: No Respiratory Distress, Lungs Clear Cardiovascular: Regular Rate, Rhythm GI/Abdominal: Normal Bowel Sounds, Soft, Tender (LUQ). No: Guarding, Rigid, Rebound Back Exam: Full Range of Motion, CVA Tenderness (L). No: CVA Tenderness (R), Vertebral Tenderness Extremities: Normal Inspection, No Pedal Edema Neurological: Alert, Oriented, No Motor/Sensory Deficits Psychiatric: Normal Mood Skin Exam: Warm, Dry, Intact, Normal Color, No Rash. No: Ecchymosis, Petechiae Course - Vital Signs Last Recorded V/S: Last Vital Signs Temp 96.8 F L 11/27/20 11:26 Pulse 77 11/27/20 11:26 Resp 20 11/27/20 11:26 BP 140/83 11/27/20 11:26 Pulse Ox 99 11/27/20 11:26 - Orders/Labs/Meds Meds: Medications Discontinued Medications Generic Name Dose Route Start Last Admin Trade Name Chavo PRN Reason Stop Dose Admin Hydromorphone HCl 2 mg 11/27/20 11:23 Hydromorphone 1 Mg/Ml Syringe IM 11/27/20 11:24 ONETIME ONE Departure - Departure Time of Disposition: 11:40 Disposition: Home, Self-Care 01 Condition: Good Clinical Impression: Loin pain hematuria syndrome, History of Henoch-Schonlein purpura - Discharge Information *PRESCRIPTION DRUG MONITORING PROGRAM REVIEWED*: No *COPY OF PRESCRIPTION DRUG MONITORING REPORT IN PATIENT NICO: No Instructions: Flank Pain, Adult, [id number] Forms: ED Department Discharge Additional Instructions: Follow up with your doctor on Sunday, November 30 as planned. Sepsis Event Note (ED) - Focused Exam Vital Signs: Vital Signs Temp Pulse Resp BP Pulse Ox 11/27/20 11:26 96.8 F L 77 20 140/83 99
[2020-11-27 11:31] VITALS: BP 140/83; PULSE 77
== END 2020-11-27 11:42 | disposition home or self-care (01) ==
LOC: DL.ED 11:17
DX: N39.8 Other specified disorders of urinary system (principal); E66.9 Obesity, unspecified; Z68.42 Body mass index [BMI] 45.0-49.9, adult; Z86.2 Personal history of diseases of the blood and blood-forming organs and certain disorders involving the immune mechanism; Z88.0 Allergy status to penicillin; Z91.030 Bee allergy status; Z88.6 Allergy status to analgesic agent; Z88.5 Allergy status to narcotic agent; Z88.8 Allergy status to other drugs, medicaments and biological substances; Z79.899 Other long term (current) drug therapy
CPT/HCPCS: 96372; 99283; J1170

== ENCOUNTER 2020-11-28 08:15 | Emergency (ER) | payer MEDICAID ==
[2020-11-28 08:26] VITALS: BP 130/92; PULSE 67
--- NOTE | 2020-11-28 08:26 | EDM.PDOC ---
ED HPI GENERAL MEDICAL PROBLEM - General Chief Complaint: Flank Pain Stated Complaint: KIDNEY PAIN Time Seen by Provider: 11/28/20 08:25 Source of Information: Reports: Patient, Old Records, RN, RN Notes Reviewed History Limitations: Reports: No Limitations - History of Present Illness INITIAL COMMENTS - FREE TEXT/NARRATIVE: Pt presents to ER with c/o severe left flank pain. Pt has Hx of loin pain hematuria syndrome and HSP. He has established with [facility] being evaluated for autologous kidney transplant. Last week I had a lengthy discussion with the pt about inappropriate use of ER to meet his chronic pain needs. Pt was receptive and has an appointment established with Dr. Hubbard on November 30 for chronic pain management. Pt denies any new Sx's, fever, chills, etc. Duration: Chronic, Recurring, Waxing/Waning Location: Reports: Other (Left Flank) Quality: Reports: Same as Previous Episode Severity: Severe Improves with: Reports: None Worsens with: Reports: None Left Flank Pain Score (Numeric/FACES): 9 - Related Data Allergies Allergy/AdvReac Type Severity Reaction Status Date / Time amoxicillin [Amoxicillin] Allergy Rash Verified 11/28/20 08:27 bee venom protein (honey bee) Allergy Cannot Verified 11/28/20 08:27 Remember butorphanol [From Stadol] Allergy Hallucinati Verified 11/28/20 08:27 ons haloperidol [From Haldol] Allergy Hallucinati Verified 11/28/20 08:27 ons ketorolac tromethamine Allergy Rash Verified 11/28/20 08:27 [From Toradol] metoclopramide [From Reglan] Allergy Agitation Verified 11/28/20 08:27 promethazine HCl Allergy Hallucinati Verified 11/28/20 08:27 [From Phenergan] ons tramadol HCl [From Ultram] Allergy Rash Verified 11/28/20 08:27 Home Meds: Home Meds Tamsulosin HCl [Flomax] 0.4 mg PO BID 05/30/20 [History] Ondansetron [Zofran] 8 mg PO TID PRN 06/21/20 [History] Docusate Sodium [Colace] 100 mg PO BID PRN 10/21/20 [History] Losartan [Cozaar] 25 mg PO BEDTIME 10/24/20 [History] oxyCODONE ER [OxyCONTIN] 10 mg PO Q6HR PRN 11/21/20 [History] DULoxetine [Cymbalta] 30 mg PO DAILY 11/22/20 [History] Naproxen 250 mg PO Q8HR PRN 11/22/20 [History] Past Medical History - Past Health History Medical/Surgical History: Denies Medical/Surgical History HEENT History: Reports: None Cardiovascular History: Reports: None Respiratory History: Reports: None Gastrointestinal History: Reports: Cholelithiasis, Gastritis, GERD Other Gastrointestinal History: gallbladder pain Genitourinary History: Reports: Renal Calculus, Other (See Below) 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 Hematologic History: Reports: None Immunologic History: Reports: None Oncologic (Cancer) History: Reports: None Dermatologic History: Reports: None - Infectious Disease History Infectious Disease History: Reports: Chicken Pox, Novel Coronavirus - Past Surgical History Head Surgeries/Procedures: Reports: None HEENT Surgical History: Reports: None Cardiovascular Surgical History: Reports: None GI Surgical History: Reports: Appendectomy, Cholecystectomy Male Surgical History: Reports: Circumcision Other Male Surgeries/Procedures: Has had kidney biopsy Musculoskeletal Surgical History: Reports: Other (See Below) Other Musculoskeletal Surgeries/Procedures:: left arm Social & Family History - Family History Family Medical History: No Pertinent Family History - Caffeine Use Caffeine Use: Reports: None Caffeine Use Comment: 32 oz daily - Living Situation & Occupation Living situation: Reports: Single, Alone Occupation: Employed ED ROS GENERAL - Review of Systems Review Of Systems: Comprehensive ROS is negative, except as noted in HPI. ED EXAM, RENAL/ - Physical Exam Exam: See Below Exam Limited By: No Limitations General Appearance: Alert, No Apparent Distress, Obese, Other (Uncomfortable appearing). No: Active Emesis Eye Exam: Bilateral Eye: Normal Inspection Head: Atraumatic, Normocephalic Neck: Normal Inspection Respiratory/Chest: No Respiratory Distress, Lungs Clear, Normal Breath Sounds, No Accessory Muscle Use, Chest Non-Tender Cardiovascular: Regular Rate, Rhythm GI/Abdominal: Normal Bowel Sounds, Soft, No Distention, Tender (LUQ, mild at LLQ). No: Guarding, Rigid, Rebound (Male) Exam: Deferred Back Exam: Full Range of Motion, CVA Tenderness (L). No: CVA Tenderness (R), Vertebral Tenderness Extremities: Normal Inspection Neurological: Alert, Oriented, No Motor/Sensory Deficits Psychiatric: Normal Mood Skin Exam: Warm, Dry, Intact, Normal Color, No Rash. No: Ecchymosis, Erythema, Petechiae Course - Vital Signs Last Recorded V/S: Last Vital Signs Temp 97.6 F 11/28/20 08:25 Pulse 67 11/28/20 08:25 Resp 20 11/28/20 08:25 BP 130/92 H 11/28/20 08:25 Pulse Ox 99 11/28/20 08:25 - Orders/Labs/Meds Meds: Medications Discontinued Medications Generic Name Dose Route Start Last Admin Trade Name Chavo PRN Reason Stop Dose Admin Hydromorphone HCl 2 mg 11/28/20 08:29 Hydromorphone 1 Mg/Ml Syringe IM 11/28/20 08:30 ONETIME ONE - Re-Assessments/Exams Free Text/Narrative Re-Assessment/Exam: 11/28/20 08:32 Pt again advised that he must follow up with Dr. Hubbard on November 30 as planned for pain management, as the ER is not the appropriate place to manage chronic pain. No controlled substance Rx was issued at today's visit. Departure - Departure Time of Disposition: 08:45 Disposition: Home, Self-Care 01 Condition: Good Clinical Impression: Loin pain hematuria syndrome, History of Henoch-Schonlein purpura, Flank pain - Discharge Information *PRESCRIPTION DRUG MONITORING PROGRAM REVIEWED*: No *COPY OF PRESCRIPTION DRUG MONITORING REPORT IN PATIENT NICO: No Instructions: Flank Pain, Adult, [id number] Forms: ED Department Discharge Additional Instructions: Follow up with Dr. Hubbard November 30 as scheduled. Sepsis Event Note (ED) - Focused Exam Vital Signs: Vital Signs Temp Pulse Resp BP Pulse Ox 11/28/20 08:25 97.6 F 67 20 130/92 H 99
[2020-11-28] MEDS ORDERED: HYDROmorphone 1 MG/ML Syringe IM ONE (08:29)
[2020-11-28] MEDS ORDERED: Ondansetron 4 MG Tab.DIS PO ONE (08:37)
== END 2020-11-28 08:50 | disposition home or self-care (01) ==
LOC: DL.ED 08:15
DX: R10.12 Left upper quadrant pain (principal); R10.32 Left lower quadrant pain; M54.5 Low back pain; R31.9 Hematuria, unspecified; E66.9 Obesity, unspecified; Z68.41 Body mass index [BMI] 40.0-44.9, adult; Z86.16 Personal history of COVID-19; Z88.0 Allergy status to penicillin; Z91.030 Bee allergy status; Z88.8 Allergy status to other drugs, medicaments and biological substances; Z88.6 Allergy status to analgesic agent; Z79.899 Other long term (current) drug therapy
CPT/HCPCS: 96372; 99283; A9270; J1170

== ENCOUNTER 2020-11-28 17:15 | Emergency (ER) | payer MEDICAID ==
[2020-11-28 19:22] VITALS: BP 124/77; PULSE 79
[2020-11-28] MEDS ORDERED: HYDROmorphone 0.5 MG/0.5 ML Syringe IM ONE (19:23)
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
== END 2020-11-28 19:37 | disposition home or self-care (01) ==
LOC: DL.ED 17:15
DX: N39.8 Other specified disorders of urinary system (principal); E66.9 Obesity, unspecified; Z68.41 Body mass index [BMI] 40.0-44.9, adult; Z88.0 Allergy status to penicillin; Z91.030 Bee allergy status; Z88.8 Allergy status to other drugs, medicaments and biological substances; Z88.6 Allergy status to analgesic agent; Z88.5 Allergy status to narcotic agent; Z79.899 Other long term (current) drug therapy
CPT/HCPCS: 96372; 99283; J1170

== ENCOUNTER 2020-11-29 09:57 | Emergency (ER) | payer MEDICAID ==
[2020-11-29] MEDS ORDERED: HYDROmorphone 1 MG/ML Syringe IM ONE (09:59)
--- NOTE | 2020-11-29 10:00 | EDM.PDOC ---
ED HPI GENERAL MEDICAL PROBLEM - General Chief Complaint: Flank Pain Stated Complaint: FLANK PAIN, BLOODY URINE Time Seen by Provider: 11/29/20 10:00 Source of Information: Reports: Patient, Old Records, RN, RN Notes Reviewed History Limitations: Reports: No Limitations - History of Present Illness INITIAL COMMENTS - FREE TEXT/NARRATIVE: Pt presents to ER with c/o severe left flank pain. Pt has Hx of loin pain hematuria syndrome and HSP. He has established with [facility] being evaluated for autologous kidney transplant. Last week I had a lengthy discussion with the pt about inappropriate use of ER to meet his chronic pain needs. Pt was receptive and has an appointment established with Dr. Hubbard on November 30 for chronic pain management. Pt denies any new Sx's, fever, chills, etc. Duration: Chronic, Recurring Location: Reports: Other (Left flank) Quality: Reports: Same as Previous Episode Severity: Severe Improves with: Reports: None Worsens with: Reports: None - Related Data Allergies Allergy/AdvReac Type Severity Reaction Status Date / Time amoxicillin [Amoxicillin] Allergy Rash Verified 11/28/20 08:27 bee venom protein (honey bee) Allergy Cannot Verified 11/28/20 08:27 Remember butorphanol [From Stadol] Allergy Hallucinati Verified 11/28/20 08:27 ons haloperidol [From Haldol] Allergy Hallucinati Verified 11/28/20 08:27 ons ketorolac tromethamine Allergy Rash Verified 11/28/20 08:27 [From Toradol] metoclopramide [From Reglan] Allergy Agitation Verified 11/28/20 08:27 promethazine HCl Allergy Hallucinati Verified 11/28/20 08:27 [From Phenergan] ons tramadol HCl [From Ultram] Allergy Rash Verified 11/28/20 08:27 Home Meds: Home Meds Tamsulosin HCl [Flomax] 0.4 mg PO BID 05/30/20 [History] Ondansetron [Zofran] 8 mg PO TID PRN 06/21/20 [History] Docusate Sodium [Colace] 100 mg PO BID PRN 10/21/20 [History] Losartan [Cozaar] 25 mg PO BEDTIME 10/24/20 [History] oxyCODONE ER [OxyCONTIN] 10 mg PO Q6HR PRN 11/21/20 [History] DULoxetine [Cymbalta] 30 mg PO DAILY 11/22/20 [History] Naproxen 250 mg PO Q8HR PRN 11/22/20 [History] Past Medical History - Past Health History Medical/Surgical History: Denies Medical/Surgical History HEENT History: Reports: None Cardiovascular History: Reports: None Respiratory History: Reports: None Gastrointestinal History: Reports: Cholelithiasis, Gastritis, GERD Other Gastrointestinal History: gallbladder pain Genitourinary History: Reports: Renal Calculus, Other (See Below) 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 Hematologic History: Reports: None Immunologic History: Reports: None Oncologic (Cancer) History: Reports: None Dermatologic History: Reports: None - Infectious Disease History Infectious Disease History: Reports: Chicken Pox, Novel Coronavirus - Past Surgical History Head Surgeries/Procedures: Reports: None HEENT Surgical History: Reports: None Cardiovascular Surgical History: Reports: None GI Surgical History: Reports: Appendectomy, Cholecystectomy Male Surgical History: Reports: Circumcision Other Male Surgeries/Procedures: Has had kidney biopsy Musculoskeletal Surgical History: Reports: Other (See Below) Other Musculoskeletal Surgeries/Procedures:: left arm Social & Family History - Family History Family Medical History: No Pertinent Family History - Caffeine Use Caffeine Use: Reports: Soda Caffeine Use Comment: 32 oz daily - Living Situation & Occupation Living situation: Reports: Single, Alone Occupation: Employed ED ROS GENERAL - Review of Systems Review Of Systems: Comprehensive ROS is negative, except as noted in HPI. ED EXAM, RENAL/ - Physical Exam Exam: See Below Exam Limited By: No Limitations General Appearance: Alert, Mild Distress, Obese. No: Active Emesis Nose: Normal Inspection Throat/Mouth: Normal Voice, No Airway Compromise Head: Atraumatic, Normocephalic Neck: Normal Inspection, Full Range of Motion Respiratory/Chest: No Respiratory Distress, Lungs Clear Cardiovascular: Regular Rate, Rhythm GI/Abdominal: Normal Bowel Sounds, Soft, Tender (LUQ). No: Guarding, Rigid, Rebound (Male) Exam: Deferred Rectal (Males) Exam: Deferred Back Exam: Full Range of Motion, CVA Tenderness (L). No: CVA Tenderness (R), Vertebral Tenderness Extremities: Normal Inspection, No Pedal Edema Neurological: Alert, Oriented, No Motor/Sensory Deficits Psychiatric: Normal Mood Skin Exam: Warm, Dry, Intact, Normal Color, No Rash. No: Ecchymosis, Jaundice, Petechiae Course - Orders/Labs/Meds Meds: Medications Discontinued Medications Generic Name Dose Route Start Last Admin Trade Name Chavo PRN Reason Stop Dose Admin Hydromorphone HCl 2 mg 11/29/20 09:59 Hydromorphone 1 Mg/Ml Syringe IM 11/29/20 10:00 ONETIME ONE - Re-Assessments/Exams Free Text/Narrative Re-Assessment/Exam: 11/29/20 10:03 I have again instructed the pt to f/u in clinic for ongoing pain management, and again reminded him that he cannot continue to utilize the ER for chronic pain management. He states he is aware, and has an appointment in clinic tomorrow to address his pain management. No prescription was issued from the ER today. Departure - Departure Time of Disposition: 10:09 Disposition: Home, Self-Care 01 Condition: Good Clinical Impression: Loin pain hematuria syndrome, History of Henoch-Schonlein purpura, Flank pain - Discharge Information *PRESCRIPTION DRUG MONITORING PROGRAM REVIEWED*: No *COPY OF PRESCRIPTION DRUG MONITORING REPORT IN PATIENT NICO: No Instructions: Flank Pain, Adult, [id number] Forms: ED Department Discharge Additional Instructions: Follow up in clinic tomorrow as scheduled.
[2020-11-29 10:09] VITALS: BP 126/96; PULSE 74
== END 2020-11-29 10:25 | disposition home or self-care (01) ==
LOC: DL.ED 09:57
DX: N39.8 Other specified disorders of urinary system (principal); E66.9 Obesity, unspecified; Z68.41 Body mass index [BMI] 40.0-44.9, adult; Z86.2 Personal history of diseases of the blood and blood-forming organs and certain disorders involving the immune mechanism; Z88.0 Allergy status to penicillin; Z91.030 Bee allergy status; Z88.8 Allergy status to other drugs, medicaments and biological substances; Z88.6 Allergy status to analgesic agent; Z88.5 Allergy status to narcotic agent
CPT/HCPCS: 96372; 99283; J1170

== ENCOUNTER 2020-11-29 16:46 | Emergency (ER) | payer MEDICAID | END 2020-11-29 16:59 | disposition left against medical advice (07) | LOC: DL.ED 16:46 | DX: Z53.21 Procedure and treatment not carried out due to patient leaving prior to being seen by health care provider (principal) ==

== ENCOUNTER 2020-11-30 10:23 | Emergency (ER) | payer MEDICAID | END 2020-11-30 11:16 | disposition left against medical advice (07) | LOC: DL.ED 10:23 | DX: Z53.21 Procedure and treatment not carried out due to patient leaving prior to being seen by health care provider (principal) ==

== ENCOUNTER 2020-11-30 14:13 | Emergency (ER) | payer MEDICAID ==
--- NOTE | 2020-11-30 15:01 | EDM.PDOC ---
ED HPI GENERAL MEDICAL PROBLEM - General Chief Complaint: Genitourinary Problem Stated Complaint: KIDNEY PROBLEMS/PAIN URINATING BLOOD Time Seen by Provider: 11/30/20 14:50 Source of Information: Reports: Patient History Limitations: Reports: No Limitations - History of Present Illness INITIAL COMMENTS - FREE TEXT/NARRATIVE: This 30 yo male patient reports to the ED with continued pain to his left flank radiating down to his bladder. The patient reports he went trail riding over the weekend which caused an increase in his pain, an increase in the amount of blood in his urine and a decreased urine output. The patient reports he has been seen by Dr. Hubbard, but was encouraged to continue to get care from Stewart Campuzano ([facility]). The patient reports he has an appointment at the [facility] at 1520 today. The patient has been seen in the ED numerous times throughout the weekend along with 2 visits where the patient left prior to being seen in the past 12 hours. Duration: Day(s):, Constant Location: Reports: Abdomen, Other (Flank) Quality: Reports: Ache, Sharp Severity: Moderate Improves with: Reports: None Worsens with: Reports: None Context: Reports: Other Associated Symptoms: Reports: No Other Symptoms Left Flank Pain Score (Numeric/FACES): 8 - Related Data Allergies Allergy/AdvReac Type Severity Reaction Status Date / Time amoxicillin [Amoxicillin] Allergy Rash Verified 11/30/20 15:01 bee venom protein (honey bee) Allergy Cannot Verified 11/30/20 15:01 Remember butorphanol [From Stadol] Allergy Hallucinati Verified 11/30/20 15:01 ons haloperidol [From Haldol] Allergy Hallucinati Verified 11/30/20 15:01 ons ketorolac tromethamine Allergy Rash Verified 11/30/20 15:01 [From Toradol] metoclopramide [From Reglan] Allergy Agitation Verified 11/30/20 15:01 promethazine HCl Allergy Hallucinati Verified 11/30/20 15:01 [From Phenergan] ons tramadol HCl [From Ultram] Allergy Rash Verified 11/30/20 15:01 Home Meds: Home Meds Tamsulosin HCl [Flomax] 0.4 mg PO BID 05/30/20 [History] Ondansetron [Zofran] 8 mg PO TID PRN 06/21/20 [History] Docusate Sodium [Colace] 100 mg PO BID PRN 10/21/20 [History] Losartan [Cozaar] 25 mg PO BEDTIME 10/24/20 [History] oxyCODONE ER [OxyCONTIN] 10 mg PO Q6HR PRN 11/21/20 [History] DULoxetine [Cymbalta] 30 mg PO DAILY 11/22/20 [History] Naproxen 250 mg PO Q8HR PRN 11/22/20 [History] Past Medical History - Past Health History Medical/Surgical History: Denies Medical/Surgical History HEENT History: Reports: None Cardiovascular History: Reports: None Respiratory History: Reports: None Gastrointestinal History: Reports: Cholelithiasis, Gastritis, GERD Other Gastrointestinal History: gallbladder pain Genitourinary History: Reports: Renal Calculus, Other (See Below) 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 Hematologic History: Reports: None Immunologic History: Reports: None Oncologic (Cancer) History: Reports: None Dermatologic History: Reports: None - Infectious Disease History Infectious Disease History: Reports: Chicken Pox, Novel Coronavirus - Past Surgical History Head Surgeries/Procedures: Reports: None HEENT Surgical History: Reports: None Cardiovascular Surgical History: Reports: None GI Surgical History: Reports: Appendectomy, Cholecystectomy Male Surgical History: Reports: Circumcision Other Male Surgeries/Procedures: Has had kidney biopsy Musculoskeletal Surgical History: Reports: Other (See Below) Other Musculoskeletal Surgeries/Procedures:: left arm Social & Family History - Family History Family Medical History: No Pertinent Family History - Caffeine Use Caffeine Use: Reports: Soda Caffeine Use Comment: 32 oz daily - Living Situation & Occupation Living situation: Reports: Single, Alone Occupation: Employed ED ROS GENERAL - Review of Systems Review Of Systems: Comprehensive ROS is negative, except as noted in HPI. ED EXAM, RENAL/ - Physical Exam Exam: See Below Exam Limited By: No Limitations General Appearance: Alert, WD/WN, Moderate Distress, Obese Eye Exam: Bilateral Eye: EOMI, Normal Inspection, PERRL Ears: Normal External Exam, Normal Canal, Hearing Grossly Normal, Normal TMs Nose: Normal Inspection, Normal Mucosa, No Blood Throat/Mouth: Normal Inspection, Normal Lips, Normal Teeth, Normal Gums, Normal Oropharynx, Normal Voice, No Airway Compromise Head: Atraumatic, Normocephalic Neck: Normal Inspection, Supple, Non-Tender, Full Range of Motion Respiratory/Chest: No Respiratory Distress, Lungs Clear, Normal Breath Sounds, No Accessory Muscle Use, Chest Non-Tender Cardiovascular: Normal Peripheral Pulses, Regular Rate, Rhythm, No Edema, No Gallop, No JVD, No Murmur, No Rub GI/Abdominal: Normal Bowel Sounds, No Organomegaly, No Distention, No Abnormal Bruit, No Mass, Tender (left side) (Male) Exam: Deferred Rectal (Males) Exam: Deferred Back Exam: Normal Inspection, Full Range of Motion, NT Extremities: Normal Inspection, Normal Range of Motion, Non-Tender, Normal Capillary Refill, No Pedal Edema Neurological: Alert, Oriented Psychiatric: Anxious, Depressed Mood Skin Exam: Warm, Dry, Intact, Normal Color, No Rash Lymphatic: No Adenopathy Course - Vital Signs Last Recorded V/S: Last Vital Signs Temp 36.4 C 11/30/20 14:41 Pulse 74 11/30/20 14:41 Resp 16 11/30/20 14:41 BP 135/83 11/30/20 14:41 Pulse Ox 99 11/30/20 14:41 - Orders/Labs/Meds Orders: Active Orders 24 hr Category Date Time Status CBC WITH AUTO DIFF [HEME] Stat Lab 11/30/20 15:06 Ordered COMPREHENSIVE METABOLIC PN,CMP [CHEM] Stat Lab 11/30/20 15:06 Ordered DRUG SCREEN URINE BIORAD [URCHEM] Stat Lab 11/30/20 15:06 Ordered UA RFX MARGARITA AND CULT IF INDIC [URIN] Urgent Lab 11/30/20 15:06 Ordered Meds: Medications Discontinued Medications Generic Name Dose Route Start Last Admin Trade Name Freq PRN Reason Stop Dose Admin Hydromorphone HCl 1 mg 11/30/20 15:13 11/30/20 15:18 Hydromorphone 1 Mg/Ml Syringe IM 11/30/20 15:14 1 mg ONETIME ONE Administration Departure - Departure Time of Disposition: 15:23 Disposition: Home, Self-Care 01 Condition: Fair Clinical Impression: Loin pain hematuria syndrome - Discharge Information *PRESCRIPTION DRUG MONITORING PROGRAM REVIEWED*: Not Applicable *COPY OF PRESCRIPTION DRUG MONITORING REPORT IN PATIENT NICO: Not Applicable Forms: ED Department Discharge Care Plan Goals: The patient was advised of the examination results during the visit. The patient was given an injection of Dilaudid. The patient was discharged prior to results due to his scheduled appointment at the clinic. If the patient has any additional symptoms or concerns, the patient should either return to the emerge ncy department or visit his primary care facility. Sepsis Event Note (ED) - Focused Exam Vital Signs: Vital Signs Temp Pulse Resp BP Pulse Ox 11/30/20 14:41 36.4 C 74 16 135/83 99 - My Orders Last 24 Hours: My Active Orders 11/30/20 15:06 CBC WITH AUTO DIFF [HEME] Stat COMPREHENSIVE METABOLIC PN,CMP [CHEM] Stat DRUG SCREEN URINE BIORAD [URCHEM] Stat UA RFX MARGARITA AND CULT IF INDIC [URIN] Urgent - Assessment/Plan Last 24 Hours: My Active Orders 11/30/20 15:06 CBC WITH AUTO DIFF [HEME] Stat COMPREHENSIVE METABOLIC PN,CMP [CHEM] Stat DRUG SCREEN URINE BIORAD [URCHEM] Stat UA RFX MARGARITA AND CULT IF INDIC [URIN] Urgent
[2020-11-30 15:02] VITALS: BP 135/83; PULSE 74
[2020-11-30] MEDS ORDERED: HYDROmorphone 1 MG/ML Syringe IM ONE (15:13)
[2020-11-30 15:41] LABS: ANION GAP 16.1 mEq/L (7-13); CHLORIDE,CL 104 mmol/L (98-107); SODIUM,NA 141 mmol/L (136-145)
== END 2020-11-30 15:30 | disposition home or self-care (01) ==
LOC: DL.ED 14:13
DX: M54.5 Low back pain (principal); R31.9 Hematuria, unspecified; E66.9 Obesity, unspecified; Z68.44 Body mass index [BMI] 60.0-69.9, adult; Z86.16 Personal history of COVID-19; Z88.0 Allergy status to penicillin; Z91.030 Bee allergy status; Z88.8 Allergy status to other drugs, medicaments and biological substances; Z88.5 Allergy status to narcotic agent; Z79.899 Other long term (current) drug therapy
CPT/HCPCS: 36415; 80053; 80305-QW; 81001; 85025; 96372; 99283; 99284; J1170

== ENCOUNTER 2020-12-01 07:37 | Emergency (ER) | payer MEDICAID ==
--- NOTE | 2020-12-01 07:57 | EDM.PDOC ---
ED HPI GENERAL MEDICAL PROBLEM - General Chief Complaint: Flank Pain Stated Complaint: BLOOD IN URINE VOMMITING PAIN KIDNEYS Time Seen by Provider: 12/01/20 07:54 Source of Information: Reports: Patient, Old Records, Provider (Discussed case with Dr. Hubbard on 11/30/20.), RN, RN Notes Reviewed History Limitations: Reports: No Limitations - History of Present Illness INITIAL COMMENTS - FREE TEXT/NARRATIVE: Pt presents to ER with c/o severe left flank pain. Pt has Hx of loin pain hematuria syndrome and HSP. He has established with [facility] being evaluated for autologous kidney transplant. Last week I had a lengthy discussion with the pt about inappropriate use of ER to meet his chronic pain needs. Pt was receptive and had an appointment established with Dr. Hubbard on November 30 for chronic pain management, but had exhausted his Oxycodone supply 3 days early and did not receive a refill. Pt denies any new Sx's, fever, chills, etc. Duration: Chronic Quality: Reports: Same as Previous Episode Severity: Severe Improves with: Reports: None Worsens with: Reports: None Associated Symptoms: Reports: No Other Symptoms Flank Pain Score (Numeric/FACES): 9 - Related Data Allergies Allergy/AdvReac Type Severity Reaction Status Date / Time amoxicillin [Amoxicillin] Allergy Rash Verified 12/01/20 08:04 bee venom protein (honey bee) Allergy Cannot Verified 12/01/20 08:04 Remember butorphanol [From Stadol] Allergy Hallucinati Verified 12/01/20 08:04 ons haloperidol [From Haldol] Allergy Hallucinati Verified 12/01/20 08:04 ons ketorolac tromethamine Allergy Rash Verified 12/01/20 08:04 [From Toradol] metoclopramide [From Reglan] Allergy Agitation Verified 12/01/20 08:04 promethazine HCl Allergy Hallucinati Verified 12/01/20 08:04 [From Phenergan] ons tramadol HCl [From Ultram] Allergy Rash Verified 12/01/20 08:04 Home Meds: Home Meds Tamsulosin HCl [Flomax] 0.4 mg PO BID 05/30/20 [History] Ondansetron [Zofran] 8 mg PO TID PRN 06/21/20 [History] Docusate Sodium [Colace] 100 mg PO BID PRN 10/21/20 [History] Losartan [Cozaar] 25 mg PO BEDTIME 10/24/20 [History] DULoxetine [Cymbalta] 30 mg PO DAILY 11/22/20 [History] Naproxen 250 mg PO Q8HR PRN 11/22/20 [History] Past Medical History - Past Health History Medical/Surgical History: Denies Medical/Surgical History HEENT History: Reports: None Cardiovascular History: Reports: None Respiratory History: Reports: None Gastrointestinal History: Reports: Cholelithiasis, Gastritis, GERD Other Gastrointestinal History: gallbladder pain Genitourinary History: Reports: Renal Calculus, Other (See Below) 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 Hematologic History: Reports: None Immunologic History: Reports: None Oncologic (Cancer) History: Reports: None Dermatologic History: Reports: None - Infectious Disease History Infectious Disease History: Reports: Chicken Pox, Novel Coronavirus - Past Surgical History Head Surgeries/Procedures: Reports: None HEENT Surgical History: Reports: None Cardiovascular Surgical History: Reports: None GI Surgical History: Reports: Appendectomy, Cholecystectomy Male Surgical History: Reports: Circumcision Other Male Surgeries/Procedures: Has had kidney biopsy Musculoskeletal Surgical History: Reports: Other (See Below) Other Musculoskeletal Surgeries/Procedures:: left arm Social & Family History - Family History Family Medical History: No Pertinent Family History - Caffeine Use Caffeine Use: Reports: Soda Caffeine Use Comment: 32 oz daily - Living Situation & Occupation Living situation: Reports: Single, Alone Occupation: Employed ED ROS GENERAL - Review of Systems Review Of Systems: Comprehensive ROS is negative, except as noted in HPI. ED EXAM, RENAL/ - Physical Exam Exam: See Below Exam Limited By: No Limitations General Appearance: Alert, No Apparent Distress, Obese Head: Atraumatic, Normocephalic Neck: Normal Inspection Respiratory/Chest: No Respiratory Distress, Lungs Clear, Normal Breath Sounds, No Accessory Muscle Use, Chest Non-Tender, Other (Dry cough) Cardiovascular: Regular Rate, Rhythm GI/Abdominal: Normal Bowel Sounds, Soft, Non-Tender Back Exam: Full Range of Motion, CVA Tenderness (L). No: CVA Tenderness (R), Vertebral Tenderness Extremities: Normal Inspection Neurological: Alert, Oriented, No Motor/Sensory Deficits Psychiatric: Normal Mood Skin Exam: Warm, Dry, Intact, Normal Color, No Rash. No: Ecchymosis, Jaundice, Petechiae Course - Vital Signs Last Recorded V/S: Last Vital Signs Temp 96.7 F L 12/01/20 07:59 Pulse 57 L 12/01/20 07:59 Resp 18 12/01/20 07:59 BP 125/74 12/01/20 07:59 Pulse Ox 99 12/01/20 07:59 - Orders/Labs/Meds Meds: Medications Discontinued Medications Generic Name Dose Route Start Last Admin Trade Name Chavo PRN Reason Stop Dose Admin Hydromorphone HCl 2 mg 12/01/20 08:08 Hydromorphone 1 Mg/Ml Syringe IM 12/01/20 08:09 ONETIME ONE Methylprednisolone Sodium Succinate 125 mg 12/01/20 08:08 Methylprednisolone Sodium Succinate 125 Mg/2 Ml Sdv IM 12/01/20 08:09 ONETIME ONE - Re-Assessments/Exams Free Text/Narrative Re-Assessment/Exam: 12/01/20 08:11 I have again instructed the pt to f/u in clinic for ongoing pain management, and again reminded him that he cannot continue to utilize the ER for chronic pain management. He states he is aware, and has an appointment in clinic tomorrow to address his pain management. No prescription was issued from the ER today. Departure - Departure Time of Disposition: 08:11 Disposition: Home, Self-Care 01 Condition: Good Clinical Impression: Loin pain hematuria syndrome, History of Henoch-Schonlein purpura, Flank pain - Discharge Information *PRESCRIPTION DRUG MONITORING PROGRAM REVIEWED*: No *COPY OF PRESCRIPTION DRUG MONITORING REPORT IN PATIENT NICO: No Instructions: Flank Pain, Adult, [id number] Forms: ED Department Discharge Additional Instructions: Follow up in clinic for pain management. Sepsis Event Note (ED) - Focused Exam Vital Signs: Vital Signs Temp Pulse Resp BP Pulse Ox 12/01/20 07:59 96.7 F L 57 L 18 125/74 99
[2020-12-01 08:04] VITALS: BP 125/74; PULSE 57
[2020-12-01] MEDS ORDERED: methylPREDNISolone Sodium Succinate 125 MG/2 ML SDV IM ONE (08:08)
[2020-12-01] MEDS ORDERED: HYDROmorphone 1 MG/ML Syringe IM ONE (08:08)
== END 2020-12-01 08:30 | disposition home or self-care (01) ==
LOC: DL.ED 07:37
DX: R10.9 Unspecified abdominal pain (principal); R31.9 Hematuria, unspecified; E66.9 Obesity, unspecified; N20.0 Calculus of kidney; Z90.49 Acquired absence of other specified parts of digestive tract; Z68.30 Body mass index [BMI] 30.0-30.9, adult; Z79.899 Other long term (current) drug therapy; Z88.0 Allergy status to penicillin; Z91.030 Bee allergy status; Z88.6 Allergy status to analgesic agent; Z88.8 Allergy status to other drugs, medicaments and biological substances; Z88.5 Allergy status to narcotic agent
CPT/HCPCS: 96372; 99283; J1170; J2930

== ENCOUNTER 2020-12-02 07:34 | Emergency (ER) | payer MEDICAID ==
--- NOTE | 2020-12-02 07:39 | EDM.PDOC ---
<Sesar Ahuja - Last Filed: 12/02/20 08:30> ED HPI GENERAL MEDICAL PROBLEM - General Chief Complaint: Genitourinary Problem Stated Complaint: kidneys/stated has infection? Time Seen by Provider: 12/02/20 07:38 Source of Information: Reports: Patient, RN Notes Reviewed History Limitations: Reports: No Limitations - History of Present Illness INITIAL COMMENTS - FREE TEXT/NARRATIVE: 30 y/o M c/o circumferential ulceration just below the glans of the penis that started yesterday evening. Pt reports white discharge with the ulceration. No hx of STD or recent STD exposure. Living with no time girlfriend and no new sexual partners. Has had some difficulty emptying his bladder and testicular pain. Denies burning with urination, urethral discharge, blood in urine. Denies fever, cough, chills, drugs, etoh, anal sex, use of lubricants. Has been frequenting the ER almost daily for pain control for his loin pain hematuria syndrome. Onset: Sudden Duration: Hour(s): Location: Reports: Other (penis) Quality: Reports: Ache Severity: Moderate Improves with: Reports: None Worsens with: Reports: Movement Associated Symptoms: Reports: No Other Symptoms - Related Data Allergies Allergy/AdvReac Type Severity Reaction Status Date / Time amoxicillin [Amoxicillin] Allergy Rash Verified 12/01/20 08:04 bee venom protein (honey bee) Allergy Cannot Verified 12/01/20 08:04 Remember butorphanol [From Stadol] Allergy Hallucinati Verified 12/01/20 08:04 ons haloperidol [From Haldol] Allergy Hallucinati Verified 12/01/20 08:04 ons ketorolac tromethamine Allergy Rash Verified 12/01/20 08:04 [From Toradol] metoclopramide [From Reglan] Allergy Agitation Verified 12/01/20 08:04 promethazine HCl Allergy Hallucinati Verified 12/01/20 08:04 [From Phenergan] ons tramadol HCl [From Ultram] Allergy Rash Verified 12/01/20 08:04 Home Meds: Home Meds Tamsulosin HCl [Flomax] 0.4 mg PO BID 05/30/20 [History] Ondansetron [Zofran] 8 mg PO TID PRN 06/21/20 [History] Docusate Sodium [Colace] 100 mg PO BID PRN 10/21/20 [History] Losartan [Cozaar] 25 mg PO BEDTIME 10/24/20 [History] DULoxetine [Cymbalta] 30 mg PO DAILY 11/22/20 [History] Naproxen 250 mg PO Q8HR PRN 11/22/20 [History] ED ROS GENERAL - Review of Systems Review Of Systems: Comprehensive ROS is negative, except as noted in HPI. ED EXAM, RENAL/ - Physical Exam Exam: See Below Exam Limited By: No Limitations General Appearance: Alert, WD/WN, No Apparent Distress Respiratory/Chest: No Respiratory Distress, Lungs Clear, Normal Breath Sounds, No Accessory Muscle Use, Chest Non-Tender Cardiovascular: Normal Peripheral Pulses, Regular Rate, Rhythm, No Edema, No Gallop, No JVD, No Murmur, No Rub GI/Abdominal: Soft, Non-Tender (Male) Exam: No Hernia, Circumcised, Testicular Tenderness (L), Testicular Tenderness (R), Other (circufrential ulcerations just below the glans penis with white discharge. ) Course - Re-Assessments/Exams Free Text/Narrative Re-Assessment/Exam: 12/02/20 08:31 Discussed physical assessment findings, and lab results with patient. Will cover pt for STDs as well as balanitis. Pt understands to follow up with primary care provider in the next week. Departure - Departure Time of Disposition: 09:00 Disposition: Home, Self-Care 01 Condition: Fair Clinical Impression: Balanitis, Loin pain hematuria syndrome, History of Henoch-Schonlein purpura - Discharge Information *PRESCRIPTION DRUG MONITORING PROGRAM REVIEWED*: Not Applicable *COPY OF PRESCRIPTION DRUG MONITORING REPORT IN PATIENT NICO: Not Applicable Instructions: Balanitis Forms: ED Department Discharge Additional Instructions: RX Flagyl do not drink alcohol while taking this medication RX: doxycycline. RX: Miconazole Follow up with your primary care physician in the next week. If any new symptoms or concerns develop contact your primary care physician or return to the ER. <Jovan Villaseñor - Last Filed: 12/02/20 08:38> ED HPI GENERAL MEDICAL PROBLEM - General Source of Information: Reports: Patient, Old Records, RN, RN Notes Reviewed History Limitations: Reports: No Limitations - History of Present Illness INITIAL COMMENTS - FREE TEXT/NARRATIVE: Pt presents to ER with c/o suspected skin infection on his penis. 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 Hematologic History: Reports: None Immunologic History: Reports: None Oncologic (Cancer) History: Reports: None Dermatologic History: Reports: None - Infectious Disease History Infectious Disease History: Reports: Chicken Pox, Novel Coronavirus - Past Surgical History Head Surgeries/Procedures: Reports: None HEENT Surgical History: Reports: None Cardiovascular Surgical History: Reports: None GI Surgical History: Reports: Appendectomy, Cholecystectomy Male Surgical History: Reports: Circumcision Other Male Surgeries/Procedures: Has had kidney biopsy Musculoskeletal Surgical History: Reports: Other (See Below) Other Musculoskeletal Surgeries/Procedures:: left arm Social & Family History - Family History Family Medical History: No Pertinent Family History - Caffeine Use Caffeine Use: Reports: Soda Caffeine Use Comment: 32 oz daily - Living Situation & Occupation Living situation: Reports: Single, Alone Occupation: Employed Course - Vital Signs Last Recorded V/S: Last Vital Signs Temp 98.4 F 12/02/20 07:42 Pulse 78 12/02/20 07:42 Resp 18 12/02/20 07:42 BP 137/79 12/02/20 07:42 Pulse Ox 98 12/02/20 07:42 - Orders/Labs/Meds Orders: Active Orders 24 hr Category Date Time Status RPR (SYPHILIS SERO) W/ RFLX [REF] Stat Lab 12/02/20 08:01 Received STD PANEL 3 [REF] Stat Lab 12/02/20 07:54 Received UA W/MICROSCOPIC [URIN] Stat Lab 12/02/20 07:54 Results Labs: Laboratory Tests 12/02/20 Range/Units 07:54 Urine Color Yellow (YELLOW) Urine Appearance Clear (CLEAR) Urine pH 6.5 (5.0-9.0) Ur Specific Dequincy >= 1.030 (1.005-1.030) Urine Protein Trace H (NEGATIVE) Urine Glucose (UA) Negative (NEGATIVE) Urine Ketones Negative (NEGATIVE) Urine Occult Blood Trace-lysed H (NEGATIVE) Urine Nitrite Negative (NEGATIVE) Urine Bilirubin Negative (NEGATIVE) Urine Urobilinogen 0.2 (0.2-1.0) mg/dL Ur Leukocyte Esterase Negative (NEGATIVE) Meds: Medications Discontinued Medications Generic Name Dose Route Start Last Admin Trade Name Freq PRN Reason Stop Dose Admin Ceftriaxone Sodium 2 gm 12/02/20 08:30 Ceftriaxone 2 Gm Vial IM 12/02/20 08:31 ONETIME ONE Hydromorphone HCl 2 mg 12/02/20 07:53 12/02/20 08:00 Hydromorphone 1 Mg/Ml Syringe IM 12/02/20 07:54 2 mg ONETIME ONE Administration - Re-Assessments/Exams Free Text/Narrative Re-Assessment/Exam: 12/02/20 08:37 I personally performed or re-performed the physical examination and medical decision making. I have verified all student documentation or findings, including history, physical exam and/or medical decision making. Sepsis Event Note (ED) - Focused Exam Vital Signs: Vital Signs Temp Pulse Resp BP Pulse Ox 12/02/20 07:42 98.4 F 78 18 137/79 98
[2020-12-02 07:51] VITALS: BP 137/79; PULSE 78
[2020-12-02] MEDS ORDERED: HYDROmorphone 1 MG/ML Syringe IM ONE (07:53)
[2020-12-02] MEDS ORDERED: cefTRIAXone 2 GM Vial IM ONE (08:30)
[2020-12-08 12:46] LABS: C.TRACHOMATIS BY TMA Negative (Negative); N.GONORRHOEAE BY TMA Negative (Negative)
== END 2020-12-02 09:01 | disposition home or self-care (01) ==
LOC: DL.ED 07:34
DX: N48.1 Balanitis (principal); N39.8 Other specified disorders of urinary system; Z86.2 Personal history of diseases of the blood and blood-forming organs and certain disorders involving the immune mechanism; Z88.0 Allergy status to penicillin; Z91.030 Bee allergy status; Z88.6 Allergy status to analgesic agent; Z88.8 Allergy status to other drugs, medicaments and biological substances; Z88.5 Allergy status to narcotic agent; Z79.899 Other long term (current) drug therapy
CPT/HCPCS: 81001; 86592; 87220; 87491; 87563; 87591; 96372; 99283; 99284; J0696; J1170

== ENCOUNTER 2020-12-03 02:11 | Emergency (ER) | payer MEDICAID ==
[2020-12-03 02:25] VITALS: BP 140/80; PULSE 78
[2020-12-03] MEDS ORDERED: HYDROmorphone 1 MG/ML Syringe IM ONE ×2 (02:31→04:07)
[2020-12-03] MEDS ORDERED: Miconazole 2% Crm 14 GM Tube TOP ONE (02:31)
--- NOTE | 2020-12-03 02:35 | EDM.PDOC ---
ED HPI GENERAL MEDICAL PROBLEM - General Chief Complaint: Genitourinary Problem Stated Complaint: BLOOD IN URINE Time Seen by Provider: 12/03/20 02:20 Source of Information: Reports: Patient, RN, RN Notes Reviewed History Limitations: Reports: No Limitations - History of Present Illness INITIAL COMMENTS - FREE TEXT/NARRATIVE: Patient is a 30-year-old male who presents to ER with bilateral flank pain, chronic with loin hematuria pain syndrome. Patient states he has been vomiting all day, states he has a sore tongue and sore throat from vomiting. Patient also complains of ulceration, bleeding and pain to the penis. Patient was seen in the ER yesterday for the same problem was prescribed medications, and given STD coverage at that time as well. Patient states he dropped off the prescriptions, but did not pick them up from the pharmacy. Onset: Gradual Penis Pain Score (Numeric/FACES): 8 - Related Data Allergies Allergy/AdvReac Type Severity Reaction Status Date / Time amoxicillin [Amoxicillin] Allergy Rash Verified 12/03/20 02:29 bee venom protein (honey bee) Allergy Cannot Verified 12/03/20 02:29 Remember butorphanol [From Stadol] Allergy Hallucinati Verified 12/03/20 02:29 ons haloperidol [From Haldol] Allergy Hallucinati Verified 12/03/20 02:29 ons ketorolac tromethamine Allergy Rash Verified 12/03/20 02:29 [From Toradol] metoclopramide [From Reglan] Allergy Agitation Verified 12/03/20 02:29 promethazine HCl Allergy Hallucinati Verified 12/03/20 02:29 [From Phenergan] ons tramadol HCl [From Ultram] Allergy Rash Verified 12/03/20 02:29 Home Meds: Home Meds Tamsulosin HCl [Flomax] 0.4 mg PO BID 05/30/20 [History] Ondansetron [Zofran] 8 mg PO TID PRN 06/21/20 [History] Docusate Sodium [Colace] 100 mg PO BID PRN 10/21/20 [History] Losartan [Cozaar] 25 mg PO BEDTIME 10/24/20 [History] DULoxetine [Cymbalta] 30 mg PO DAILY 11/22/20 [History] Naproxen 250 mg PO Q8HR PRN 11/22/20 [History] Past Medical History - Past Health History Medical/Surgical History: Denies Medical/Surgical History HEENT History: Reports: None Cardiovascular History: Reports: None Respiratory History: Reports: None Gastrointestinal History: Reports: Cholelithiasis, Gastritis, GERD Other Gastrointestinal History: gallbladder pain Genitourinary History: Reports: Renal Calculus, Other (See Below) 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 Hematologic History: Reports: None Immunologic History: Reports: None Oncologic (Cancer) History: Reports: None Dermatologic History: Reports: None - Infectious Disease History Infectious Disease History: Reports: Chicken Pox, Novel Coronavirus - Past Surgical History Head Surgeries/Procedures: Reports: None HEENT Surgical History: Reports: None Cardiovascular Surgical History: Reports: None GI Surgical History: Reports: Appendectomy, Cholecystectomy Male Surgical History: Reports: Circumcision Other Male Surgeries/Procedures: Has had kidney biopsy Musculoskeletal Surgical History: Reports: Other (See Below) Other Musculoskeletal Surgeries/Procedures:: left arm Social & Family History - Family History Family Medical History: No Pertinent Family History - Caffeine Use Caffeine Use: Reports: Soda Caffeine Use Comment: 32 oz daily - Living Situation & Occupation Living situation: Reports: Single, Alone Occupation: Employed ED ROS GENERAL - Review of Systems Review Of Systems: Comprehensive ROS is negative, except as noted in HPI. ED EXAM, RENAL/ - Physical Exam Exam: See Below Exam Limited By: No Limitations General Appearance: Alert, WD/WN, Moderate Distress Eye Exam: Bilateral Eye: EOMI, Normal Inspection Ears: Normal External Exam, Hearing Grossly Normal Nose: Normal Inspection Throat/Mouth: Normal Inspection, Normal Voice, No Airway Compromise Head: Atraumatic, Normocephalic Neck: Normal Inspection, Supple, Non-Tender, Full Range of Motion Respiratory/Chest: No Respiratory Distress, Lungs Clear, Normal Breath Sounds, No Accessory Muscle Use, Chest Non-Tender Cardiovascular: Normal Peripheral Pulses, Regular Rate, Rhythm, No Edema, No Gallop, No JVD, No Murmur, No Rub GI/Abdominal: Normal Bowel Sounds, Soft, No Organomegaly, No Distention, No Abnormal Bruit, No Mass, Pelvis Stable, Tender Rectal (Males) Exam: Deferred Back Exam: Normal Inspection, Full Range of Motion, CVA Tenderness (L), CVA Tenderness (R) Extremities: Normal Inspection, Normal Range of Motion, Non-Tender, No Pedal Edema, Normal Capillary Refill Neurological: Alert, Oriented, CN II-XII Intact, Normal Cognition, Normal Gait, Normal Reflexes, No Motor/Sensory Deficits Psychiatric: Normal Affect, Normal Mood Skin Exam: Warm, Dry, Intact, Normal Color, No Rash Lymphatic: No Adenopathy Course - Vital Signs Last Recorded V/S: Last Vital Signs Temp 97.7 F 12/03/20 02:15 Pulse 78 12/03/20 02:15 Resp 18 12/03/20 02:15 BP 140/80 12/03/20 02:15 Pulse Ox 98 12/03/20 02:15 - Orders/Labs/Meds Meds: Medications Discontinued Medications Generic Name Dose Route Start Last Admin Trade Name Freq PRN Reason Stop Dose Admin Benzocaine/Menthol 1 gm 12/03/20 03:47 12/03/20 04:17 Benzocaine/Menthol 20%-0.5% [place] 56 Gm Canister TOP 12/03/20 03:48 1 dose ONETIME ONE Administration Clotrimazole 1 gm 12/03/20 02:55 12/03/20 03:03 Clotrimazole 1% Crm 30 Gm Tube TOP 12/03/20 02:56 1 applic BID ONE Administration Hydromorphone HCl 2 mg 12/03/20 02:31 12/03/20 02:56 Hydromorphone 1 Mg/Ml Syringe IM 12/03/20 02:32 Not Given ONETIME ONE Hydromorphone HCl 2 mg 12/03/20 02:41 12/03/20 02:49 Hydromorphone 1 Mg/Ml Syringe IVPUSH 12/03/20 02:42 2 mg ONETIME ONE Administration Hydromorphone HCl 1 mg 12/03/20 04:07 12/03/20 04:16 Hydromorphone 1 Mg/Ml Syringe IM 12/03/20 04:08 1 mg ONETIME ONE Administration Sodium Chloride 1,000 mls @ 999 mls/hr 12/03/20 02:39 12/03/20 02:45 Normal Saline IV 12/03/20 03:39 999 mls/hr .BOLUS ONE Administration Miconazole 1 gm 12/03/20 02:31 12/03/20 02:57 Miconazole 2% Crm 14 Gm Tube TOP 12/03/20 02:32 Not Given ONETIME ONE Ondansetron HCl 8 mg 12/03/20 02:39 12/03/20 02:49 Ondansetron 4 Mg/2 Ml Sdv IV 12/03/20 02:40 8 mg ONETIME ONE Administration - Re-Assessments/Exams Free Text/Narrative Re-Assessment/Exam: 12/03/20 04:08 Patient states his fiance is waiting in the parking lot for him. 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
[2020-12-03] MEDS ORDERED: Ondansetron 4 MG/2 ML SDV IV ONE (02:39)
[2020-12-03] MEDS ORDERED: Sodium Chloride 0.9% 1,000 ML IV ONE (02:39)
[2020-12-03] MEDS ORDERED: HYDROmorphone 1 MG/ML Syringe IVPUSH ONE (02:41)
[2020-12-03] MEDS ORDERED: Clotrimazole 1% Crm 30 GM Tube TOP ONE (02:55)
[2020-12-03] MEDS ORDERED: Benzocaine/Menthol 20%-0.5% Spray 56 GM Canister TOP ONE (03:47)
== END 2020-12-03 04:18 | disposition home or self-care (01) ==
LOC: DL.ED 02:11
DX: N39.8 Other specified disorders of urinary system (principal); N48.1 Balanitis; Z88.0 Allergy status to penicillin; Z91.030 Bee allergy status; Z88.8 Allergy status to other drugs, medicaments and biological substances; E66.9 Obesity, unspecified; Z88.6 Allergy status to analgesic agent; Z88.5 Allergy status to narcotic agent; Z79.899 Other long term (current) drug therapy
CPT/HCPCS: 96372; 96374; 96375; 99283; 99283-25; A9270-GY; J1170; J2405; J7030

== ENCOUNTER 2020-12-05 00:32 | Emergency (ER) | payer MEDICAID | END 2020-12-05 02:54 | disposition left against medical advice (07) | LOC: DL.ED 00:32 | DX: Z53.21 Procedure and treatment not carried out due to patient leaving prior to being seen by health care provider (principal) ==

== ENCOUNTER 2020-12-05 08:01 | Emergency (ER) | payer MEDICAID ==
--- NOTE | 2020-12-05 08:18 | EDM.PDOC ---
ED HPI GENERAL MEDICAL PROBLEM - General Chief Complaint: Genitourinary Problem Stated Complaint: kidney stone Time Seen by Provider: 12/05/20 08:18 Source of Information: Reports: Patient, Old Records, RN, RN Notes Reviewed History Limitations: Reports: No Limitations - History of Present Illness INITIAL COMMENTS - FREE TEXT/NARRATIVE: Pt presents to ER with c/o severe left flank pain. Today the pt states he feels that he might have another kidney stone. He reports severe pain rated 10/10 that shoots pain from the left flank to the left lower abdomen and into the groin/genitals. Pt has Hx of loin pain hematuria syndrome and HSP. He has established with [facility] being evaluated for autologous kidney transplant. Last week I had a lengthy discussion with the pt about inappropriate use of ER to meet his chronic pain needs. Pt was receptive and had an appointment established with Dr. Hubbard on November 30 for chronic pain management, but had exhausted his Oxycodone supply 3 days early and did not receive a refill. Pt denies any new Sx's, fever, chills, etc. Duration: Chronic, Recurring Location: Reports: Abdomen, Back Quality: Reports: Same as Previous Episode Severity: Severe Improves with: Reports: None Worsens with: Reports: None Flank Pain Score (Numeric/FACES): 9 - Related Data Allergies Allergy/AdvReac Type Severity Reaction Status Date / Time amoxicillin [Amoxicillin] Allergy Rash Verified 12/03/20 02:29 bee venom protein (honey bee) Allergy Cannot Verified 12/03/20 02:29 Remember butorphanol [From Stadol] Allergy Hallucinati Verified 12/03/20 02:29 ons haloperidol [From Haldol] Allergy Hallucinati Verified 12/03/20 02:29 ons ketorolac tromethamine Allergy Rash Verified 12/03/20 02:29 [From Toradol] metoclopramide [From Reglan] Allergy Agitation Verified 12/03/20 02:29 promethazine HCl Allergy Hallucinati Verified 12/03/20 02:29 [From Phenergan] ons tramadol HCl [From Ultram] Allergy Rash Verified 12/03/20 02:29 Home Meds: Home Meds Tamsulosin HCl [Flomax] 0.4 mg PO BID 05/30/20 [History] Ondansetron [Zofran] 8 mg PO TID PRN 06/21/20 [History] Docusate Sodium [Colace] 100 mg PO BID PRN 10/21/20 [History] Losartan [Cozaar] 25 mg PO BEDTIME 10/24/20 [History] DULoxetine [Cymbalta] 30 mg PO DAILY 11/22/20 [History] Naproxen 250 mg PO Q8HR PRN 11/22/20 [History] Past Medical History - Past Health History Medical/Surgical History: Denies Medical/Surgical History HEENT History: Reports: None Cardiovascular History: Reports: None Respiratory History: Reports: None Gastrointestinal History: Reports: Cholelithiasis, Gastritis, GERD Other Gastrointestinal History: gallbladder pain Genitourinary History: Reports: Renal Calculus, Other (See Below) 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 Hematologic History: Reports: None Immunologic History: Reports: None Oncologic (Cancer) History: Reports: None Dermatologic History: Reports: None - Infectious Disease History Infectious Disease History: Reports: Chicken Pox, Novel Coronavirus - Past Surgical History Head Surgeries/Procedures: Reports: None HEENT Surgical History: Reports: None Cardiovascular Surgical History: Reports: None GI Surgical History: Reports: Appendectomy, Cholecystectomy Male Surgical History: Reports: Circumcision Other Male Surgeries/Procedures: Has had kidney biopsy Musculoskeletal Surgical History: Reports: Other (See Below) Other Musculoskeletal Surgeries/Procedures:: left arm Social & Family History - Family History Family Medical History: No Pertinent Family History - Caffeine Use Caffeine Use: Reports: Soda Caffeine Use Comment: 32 oz daily - Living Situation & Occupation Living situation: Reports: Single, Alone Occupation: Employed ED ROS GENERAL - Review of Systems Review Of Systems: Comprehensive ROS is negative, except as noted in HPI. ED EXAM, RENAL/ - Physical Exam Exam: See Below Exam Limited By: No Limitations General Appearance: Alert, Mild Distress, Obese Throat/Mouth: Normal Inspection, Normal Voice, No Airway Compromise Head: Atraumatic, Normocephalic Neck: Normal Inspection Respiratory/Chest: No Respiratory Distress, Lungs Clear Cardiovascular: Regular Rate, Rhythm GI/Abdominal: Normal Bowel Sounds, Soft, Tender (LLQ). No: Guarding, Rigid, Rebound Back Exam: Full Range of Motion, CVA Tenderness (L). No: CVA Tenderness (R), Vertebral Tenderness Extremities: Normal Inspection Neurological: Alert, Oriented, No Motor/Sensory Deficits Psychiatric: Normal Mood Skin Exam: Warm, Dry, Intact, Normal Color, No Rash. No: Ecchymosis, Jaundice, Petechiae Course - Vital Signs Last Recorded V/S: Last Vital Signs Temp 98.2 F 12/05/20 08:18 Pulse 74 12/05/20 08:18 Resp 18 12/05/20 08:18 BP 132/86 12/05/20 08:18 Pulse Ox 100 12/05/20 08:18 - Orders/Labs/Meds Orders: Active Orders 24 hr Category Date Time Status Abdomen Pelvis wo Cont [CT] Stat Exams 12/05/20 08:22 Taken UA W/MICROSCOPIC [URIN] Stat Lab 12/05/20 08:55 Results Labs: Laboratory Tests 12/05/20 12/05/20 Range/Units 08:55 08:55 Urine Color Yellow (YELLOW) Urine Appearance Clear (CLEAR) Urine pH 7.0 (5.0-9.0) Ur Specific [place] >= 1.030 (1.005-1.030) Urine Protein Negative (NEGATIVE) Urine Glucose (UA) Negative (NEGATIVE) Urine Ketones Negative (NEGATIVE) Urine Occult Blood Trace-intact H (NEGATIVE) Urine Nitrite Negative (NEGATIVE) Urine Bilirubin Negative (NEGATIVE) Urine Urobilinogen 0.2 (0.2-1.0) mg/dL Ur Leukocyte Esterase Negative (NEGATIVE) Urine Opiates Screen Negative (NEGATIVE) Ur Oxycodone Screen Positive H (NEGATIVE) Urine Methadone Screen Negative (NEGATIVE) Ur Barbiturates Screen Negative (NEGATIVE) U Tricyclic Antidepress Negative (NEGATIVE) Ur Phencyclidine Scrn Negative (NEGATIVE) Ur Amphetamine Screen Negative (NEGATIVE) U Methamphetamines Scrn Negative (NEGATIVE) Urine MDMA Screen Negative (NEGATIVE) U Benzodiazepines Scrn Negative (NEGATIVE) Urine Cocaine Screen Negative (NEGATIVE) U Marijuana (THC) Screen Positive H (NEGATIVE) Meds: Medications Discontinued Medications Generic Name Dose Route Start Last Admin Trade Name Freq PRN Reason Stop Dose Admin Hydromorphone HCl 1 mg 12/05/20 08:22 12/05/20 08:28 Hydromorphone 1 Mg/Ml Syringe IM 12/05/20 08:23 1 mg ONETIME ONE Administration - Radiology Interpretation Free Text/Narrative:: CT Abd/Pelvis: no kidney stone present. See Rad. report. CT Results Date: 12/05/20 Departure - Departure Time of Disposition: 09:09 Disposition: Home, Self-Care 01 Condition: Good Clinical Impression: Loin pain hematuria syndrome, History of Henoch-Schonlein purpura, Flank pain, Fatty pancreas - Discharge Information *PRESCRIPTION DRUG MONITORING PROGRAM REVIEWED*: No *COPY OF PRESCRIPTION DRUG MONITORING REPORT IN PATIENT NICO: No Instructions: Flank Pain, Adult Forms: ED Department Discharge Additional Instructions: No kidney stones present. Follow up in clinic for further evaluation of fatty pancreas disease. Drink plenty of water. Follow up in clinic for ongoing pain management. Sepsis Event Note (ED) - Focused Exam Vital Signs: Vital Signs Temp Pulse Resp BP Pulse Ox 12/05/20 08:18 98.2 F 74 18 132/86 100 - My Orders Last 24 Hours: My Active Orders 12/05/20 08:22 Abdomen Pelvis wo Cont [CT] Stat 12/05/20 08:55 UA W/MICROSCOPIC [URIN] Stat - Assessment/Plan Last 24 Hours: My Active Orders 12/05/20 08:22 Abdomen Pelvis wo Cont [CT] Stat 12/05/20 08:55 UA W/MICROSCOPIC [URIN] Stat
[2020-12-05 08:21] VITALS: BP 132/86; PULSE 74
[2020-12-05] MEDS ORDERED: HYDROmorphone 1 MG/ML Syringe IM ONE ×2 (08:22→09:18)
--- NOTE | 2020-12-05 09:09 | CT ---
PROCEDURE INFORMATION: Exam: CT Abdomen And Pelvis Without Contrast Exam date and time: 12/05/2020 8:41 AM Age: 30 years old Clinical indication: Other: Left flank pain, gross hematuria; Prior surgery; Surgery date: 6+ months; Surgery type: Appy, gallbladder TECHNIQUE: Imaging protocol: Computed tomography of the abdomen and pelvis without contrast. Radiation optimization: All CT scans at this facility use at least one of these dose optimization techniques: automated exposure control; mA and/or kV adjustment per patient size (includes targeted exams where dose is matched to clinical indication); or iterative reconstruction. COMPARISON: CT Abdomen Pelvis wo Cont 08/05/2020 9:11 AM FINDINGS: Limitations: None. Liver: Normal. Gallbladder and bile ducts: Surgical clips are present in the right upper quadrant, consistent with previous cholecystectomy. 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 Spleen: Normal. Adrenal glands: Normal. Kidneys and ureters: Normal. Stomach and bowel: Normal. Appendix: There has been prior appendectomy. Intraperitoneal space: No ascites, pneumoperitoneum or peritoneal lesion. Vasculature: Normal. Lymph nodes: None enlarged or otherwise suspicious. Urinary bladder: Normal. Reproductive: Unremarkable. Bones/joints: Chronic unchanged bilateral L5 pars interarticularis defects. Normally aligned spine. Soft tissues: No mass or abdominal hernia. IMPRESSION: 1. No acute disease or urolith. Overall normal appearance of the kidneys, ureters and bladder. 2. 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
== END 2020-12-05 09:26 | disposition home or self-care (01) ==
LOC: DL.ED 08:01
DX: N39.8 Other specified disorders of urinary system (principal); K86.89 Other specified diseases of pancreas; E66.9 Obesity, unspecified; Z68.41 Body mass index [BMI] 40.0-44.9, adult; Z88.0 Allergy status to penicillin; Z91.030 Bee allergy status; Z88.8 Allergy status to other drugs, medicaments and biological substances; Z88.6 Allergy status to analgesic agent; Z88.5 Allergy status to narcotic agent; Z79.899 Other long term (current) drug therapy; Z86.2 Personal history of diseases of the blood and blood-forming organs and certain disorders involving the immune mechanism
CPT/HCPCS: 74176; 80305; 81001; 96372; 99284; J1170

== ENCOUNTER 2020-12-06 10:03 | Emergency (ER) | payer MEDICAID ==
[2020-12-06] MEDS ORDERED: HYDROmorphone 1 MG/ML Syringe IM ONE (10:14)
[2020-12-06] MEDS ORDERED: Ondansetron 4 MG Tab.DIS PO ONE (10:15)
--- NOTE | 2020-12-06 10:16 | EDM.PDOC ---
ED HPI GENERAL MEDICAL PROBLEM - General Chief Complaint: Genitourinary Problem Stated Complaint: SAME/KIDNEYS BLOOD IN URINE Time Seen by Provider: 12/06/20 10:15 Source of Information: Reports: Patient, Old Records, RN, RN Notes Reviewed History Limitations: Reports: No Limitations - History of Present Illness INITIAL COMMENTS - FREE TEXT/NARRATIVE: Pt presents to ER with c/o severe left flank pain. Today the pt tried to go to [facility] but they could not see him, so the made an appointment at [facility], but they cannot see him until this afternoon.. He reports severe pain rated 10/10 that shoots pain from the left flank to the left lower abdomen and into the groin/genitals. Pt has Hx of loin pain hematuria syndrome and HSP. He has established with [facility] being evaluated for autologous kidney transplant. Last week I had a lengthy discussion with the pt about inappropriate use of ER to meet his chronic pain needs. Pt was receptive and had an appointment established with Dr. Hubbard on November 30 for chronic pain management, but had exhausted his Oxycodone supply 3 days early and did not receive a refill. Pt denies any new Sx's, fever, chills, etc. Duration: Chronic, Constant, Recurring Location: Reports: Abdomen, Back Quality: Reports: Same as Previous Episode Severity: Severe Improves with: Reports: None Worsens with: Reports: None Flank Pain Score (Numeric/FACES): 9 - Related Data Allergies Allergy/AdvReac Type Severity Reaction Status Date / Time amoxicillin [Amoxicillin] Allergy Rash Verified 12/03/20 02:29 bee venom protein (honey bee) Allergy Cannot Verified 12/03/20 02:29 Remember butorphanol [From Stadol] Allergy Hallucinati Verified 12/03/20 02:29 ons haloperidol [From Haldol] Allergy Hallucinati Verified 12/03/20 02:29 ons ketorolac tromethamine Allergy Rash Verified 12/03/20 02:29 [From Toradol] metoclopramide [From Reglan] Allergy Agitation Verified 12/03/20 02:29 promethazine HCl Allergy Hallucinati Verified 12/03/20 02:29 [From Phenergan] ons tramadol HCl [From Ultram] Allergy Rash Verified 12/03/20 02:29 Home Meds: Home Meds Tamsulosin HCl [Flomax] 0.4 mg PO BID 05/30/20 [History] Ondansetron [Zofran] 8 mg PO TID PRN 06/21/20 [History] Docusate Sodium [Colace] 100 mg PO BID PRN 10/21/20 [History] Losartan [Cozaar] 25 mg PO BEDTIME 10/24/20 [History] DULoxetine [Cymbalta] 30 mg PO DAILY 11/22/20 [History] Naproxen 250 mg PO Q8HR PRN 11/22/20 [History] Past Medical History - Past Health History Medical/Surgical History: Denies Medical/Surgical History HEENT History: Reports: None Cardiovascular History: Reports: None Respiratory History: Reports: None Gastrointestinal History: Reports: Cholelithiasis, Gastritis, GERD Other Gastrointestinal History: gallbladder pain Genitourinary History: Reports: Renal Calculus, Other (See Below) 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 Hematologic History: Reports: None Immunologic History: Reports: None Oncologic (Cancer) History: Reports: None Dermatologic History: Reports: None - Infectious Disease History Infectious Disease History: Reports: Chicken Pox, Novel Coronavirus - Past Surgical History Head Surgeries/Procedures: Reports: None HEENT Surgical History: Reports: None Cardiovascular Surgical History: Reports: None GI Surgical History: Reports: Appendectomy, Cholecystectomy Male Surgical History: Reports: Circumcision Other Male Surgeries/Procedures: Has had kidney biopsy Musculoskeletal Surgical History: Reports: Other (See Below) Other Musculoskeletal Surgeries/Procedures:: left arm Social & Family History - Family History Family Medical History: No Pertinent Family History - Caffeine Use Caffeine Use: Reports: Soda Caffeine Use Comment: 32 oz daily - Living Situation & Occupation Living situation: Reports: Single, Alone Occupation: Employed ED ROS GENERAL - Review of Systems Review Of Systems: Comprehensive ROS is negative, except as noted in HPI. ED EXAM, RENAL/ - Physical Exam Exam: See Below Exam Limited By: No Limitations General Appearance: Alert, No Apparent Distress, Obese. No: Active Emesis Throat/Mouth: Normal Voice, No Airway Compromise Head: Atraumatic, Normocephalic Respiratory/Chest: No Respiratory Distress, Lungs Clear Cardiovascular: Regular Rate, Rhythm, No Edema GI/Abdominal: Normal Bowel Sounds, Soft, Non-Tender (Male) Exam: Deferred Rectal (Males) Exam: Deferred Back Exam: Full Range of Motion, CVA Tenderness (L). No: CVA Tenderness (R) Extremities: Normal Inspection Neurological: Alert, Oriented, No Motor/Sensory Deficits Psychiatric: Normal Affect, Depressed Mood Skin Exam: Warm, Dry, Intact, Normal Color, No Rash. No: Ecchymosis, Jaundice, Petechiae Course - Vital Signs Last Recorded V/S: Last Vital Signs Temp 97.5 F 12/06/20 10:14 Pulse 80 12/06/20 10:14 Resp 18 12/06/20 10:14 BP 127/91 H 12/06/20 10:14 Pulse Ox 99 12/06/20 10:14 - Orders/Labs/Meds Meds: Medications Discontinued Medications Generic Name Dose Route Start Last Admin Trade Name Karthikeyanq PRN Reason Stop Dose Admin Hydromorphone HCl 2 mg 12/06/20 10:14 12/06/20 10:42 Hydromorphone 1 Mg/Ml Syringe IM 12/06/20 10:15 2 mg ONETIME ONE Administration Ondansetron HCl 8 mg 12/06/20 10:15 12/06/20 10:42 Ondansetron 4 Mg Tab.Dis PO 12/06/20 10:16 8 mg ONETIME ONE Administration Departure - Departure Time of Disposition: 10:46 Disposition: Home, Self-Care 01 Condition: Good Clinical Impression: Loin pain hematuria syndrome, History of Henoch-Schonlein purpura, Flank pain - Discharge Information *PRESCRIPTION DRUG MONITORING PROGRAM REVIEWED*: No *COPY OF PRESCRIPTION DRUG MONITORING REPORT IN PATIENT NICO: No Instructions: Flank Pain, Adult Forms: ED Department Discharge Additional Instructions: Follow up with [facility] as planned. Sepsis Event Note (ED) - Focused Exam Vital Signs: Vital Signs Temp Pulse Resp BP Pulse Ox 12/06/20 10:14 97.5 F 80 18 127/91 H 99
[2020-12-06 10:17] VITALS: BP 127/91; PULSE 80
== END 2020-12-06 10:59 | disposition home or self-care (01) ==
LOC: DL.ED 10:03
DX: N39.8 Other specified disorders of urinary system (principal); E66.9 Obesity, unspecified; Z68.41 Body mass index [BMI] 40.0-44.9, adult; Z86.2 Personal history of diseases of the blood and blood-forming organs and certain disorders involving the immune mechanism; Z88.0 Allergy status to penicillin; Z91.030 Bee allergy status; Z88.6 Allergy status to analgesic agent; Z88.5 Allergy status to narcotic agent; Z88.8 Allergy status to other drugs, medicaments and biological substances; Z79.899 Other long term (current) drug therapy
CPT/HCPCS: 96372; 99283; 99284; A9270-GY; J1170

== ENCOUNTER 2020-12-06 19:31 | Emergency (ER) | payer MEDICAID ==
[2020-12-06 20:21] VITALS: BP 121/83; PULSE 82
--- NOTE | 2020-12-06 20:48 | EDM.PDOC ---
ED HPI GENERAL MEDICAL PROBLEM - General Chief Complaint: Genitourinary Problem Stated Complaint: SEVERE KIDNEY PAIN Time Seen by Provider: 12/06/20 20:40 Source of Information: Reports: Patient History Limitations: Reports: No Limitations - History of Present Illness INITIAL COMMENTS - FREE TEXT/NARRATIVE: This 30 yo male patient returns to the ED due to increased pain and swelling at the endo of his penis. The patient was seen for similar symptoms on 12/02/20 and has been taking the antibiotics (Doxycycline and Minocyline), but not using the cream due to burning with application. The patient reports he has not been able to urinate today due to swelling and has noticed increased pressure to his lower abdomen (bladder area). The patient reports he has attempted to be seen at the [facility] today, but did not receive a return call. Onset: Today Duration: Constant, Getting Worse, Other (pain to the glans) Location: Reports: Abdomen (pressure in the lower abdomen) Quality: Reports: Ache, Burning Severity: Moderate Improves with: Reports: None Worsens with: Reports: None Context: Reports: Other Associated Symptoms: Reports: No Other Symptoms Penis Pain Score (Numeric/FACES): 9 - Related Data Allergies Allergy/AdvReac Type Severity Reaction Status Date / Time amoxicillin [Amoxicillin] Allergy Rash Verified 12/03/20 02:29 bee venom protein (honey bee) Allergy Cannot Verified 12/03/20 02:29 Remember butorphanol [From Stadol] Allergy Hallucinati Verified 12/03/20 02:29 ons haloperidol [From Haldol] Allergy Hallucinati Verified 12/03/20 02:29 ons ketorolac tromethamine Allergy Rash Verified 12/03/20 02:29 [From Toradol] metoclopramide [From Reglan] Allergy Agitation Verified 12/03/20 02:29 promethazine HCl Allergy Hallucinati Verified 12/03/20 02:29 [From Phenergan] ons tramadol HCl [From Ultram] Allergy Rash Verified 12/03/20 02:29 Home Meds: Home Meds Tamsulosin HCl [Flomax] 0.4 mg PO BID 05/30/20 [History] Ondansetron [Zofran] 8 mg PO TID PRN 06/21/20 [History] Docusate Sodium [Colace] 100 mg PO BID PRN 10/21/20 [History] Losartan [Cozaar] 25 mg PO BEDTIME 10/24/20 [History] DULoxetine [Cymbalta] 30 mg PO DAILY 11/22/20 [History] Naproxen 250 mg PO Q8HR PRN 11/22/20 [History] Past Medical History - Past Health History Medical/Surgical History: Denies Medical/Surgical History HEENT History: Reports: None Cardiovascular History: Reports: None Respiratory History: Reports: None Gastrointestinal History: Reports: Cholelithiasis, Gastritis, GERD Other Gastrointestinal History: gallbladder pain Genitourinary History: Reports: Renal Calculus, Other (See Below) 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 Hematologic History: Reports: None Immunologic History: Reports: None Oncologic (Cancer) History: Reports: None Dermatologic History: Reports: None - Infectious Disease History Infectious Disease History: Reports: Chicken Pox, Novel Coronavirus - Past Surgical History Head Surgeries/Procedures: Reports: None HEENT Surgical History: Reports: None Cardiovascular Surgical History: Reports: None GI Surgical History: Reports: Appendectomy, Cholecystectomy Male Surgical History: Reports: Circumcision Other Male Surgeries/Procedures: Has had kidney biopsy Musculoskeletal Surgical History: Reports: Other (See Below) Other Musculoskeletal Surgeries/Procedures:: left arm Social & Family History - Family History Family Medical History: No Pertinent Family History - Tobacco Use Tobacco Use Status *Q: Never Tobacco User Second Hand Smoke Exposure: No - Caffeine Use Caffeine Use: Reports: Soda Caffeine Use Comment: 32 oz daily - Recreational Drug Use Recreational Drug Use: Yes Drug Use in Last 12 Months: Yes Recreational Drug Type: Reports: Marijuana/Hashish - Living Situation & Occupation Living situation: Reports: Single, Alone Occupation: Employed ED ROS GENERAL - Review of Systems Review Of Systems: Comprehensive ROS is negative, except as noted in HPI. ED EXAM, RENAL/ - Physical Exam Exam: See Below Exam Limited By: No Limitations General Appearance: Alert, WD/WN, Moderate Distress, Obese Eye Exam: Bilateral Eye: EOMI, Normal Inspection, PERRL Ears: Normal External Exam, Normal Canal, Hearing Grossly Normal, Normal TMs Nose: Normal Inspection, Normal Mucosa, No Blood Throat/Mouth: Normal Inspection, Normal Lips, Normal Teeth, Normal Gums, Normal Oropharynx, Normal Voice, No Airway Compromise Head: Atraumatic, Normocephalic Neck: Normal Inspection, Supple, Non-Tender, Full Range of Motion Respiratory/Chest: No Respiratory Distress, Lungs Clear, Normal Breath Sounds, No Accessory Muscle Use, Chest Non-Tender Cardiovascular: Normal Peripheral Pulses, Regular Rate, Rhythm, No Edema, No Gallop, No JVD, No Murmur, No Rub GI/Abdominal: Tender (lower abdomen) (Male) Exam: Penile Lesions (to the glans with erythema ) Rectal (Males) Exam: Deferred Back Exam: CVA Tenderness (L) (chronic), CVA Tenderness (R) (chronic) Extremities: Normal Inspection, Normal Range of Motion, Non-Tender, Normal Capillary Refill, No Pedal Edema Neurological: Alert, Oriented, CN II-XII Intact, Normal Cognition, Normal Gait, Normal Reflexes, No Motor/Sensory Deficits Psychiatric: Normal Affect, Normal Mood Skin Exam: Warm, Dry, Intact, Normal Color, No Rash Lymphatic: No Adenopathy Course - Vital Signs Last Recorded V/S: Last Vital Signs Temp 36.4 C 12/06/20 20:11 Pulse 82 12/06/20 20:11 Resp 18 12/06/20 20:11 BP 121/83 12/06/20 20:11 Pulse Ox 98 12/06/20 20:11 - Orders/Labs/Meds Orders: Active Orders 24 hr Category Date Time Status Urinary Catheter Assessment [RC] ASDIRECTED Care 12/06/20 20:48 Ordered Urinary Catheter Insertion [Insert Urinary Catheter] [ Care 12/06/20 21:00 Ordered OM.PC] Q24H CHLAMYDIA AND GONORRHEA BY TMA Urgent Lab 12/06/20 20:55 Ordered CULTURE URINE [RM] Stat Lab 12/06/20 20:52 Received UA W/MICROSCOPIC [URIN] Urgent Lab 12/06/20 20:52 Results Labs: Laboratory Tests 12/06/20 12/06/20 Range/Units 20:52 20:52 Urine Color Yellow (YELLOW) Urine Appearance Clear (CLEAR) Urine pH 6.0 (5.0-9.0) Ur Specific [place] >= 1.030 (1.005-1.030) Urine Protein Trace H (NEGATIVE) Urine Glucose (UA) Negative (NEGATIVE) Urine Ketones Negative (NEGATIVE) Urine Occult Blood Trace-intact H (NEGATIVE) Urine Nitrite Negative (NEGATIVE) Urine Bilirubin Negative (NEGATIVE) Urine Urobilinogen 0.2 (0.2-1.0) mg/dL Ur Leukocyte Esterase Trace H (NEGATIVE) Urine Opiates Screen Positive H (NEGATIVE) Ur Oxycodone Screen Positive H (NEGATIVE) Urine Methadone Screen Negative (NEGATIVE) Ur Barbiturates Screen Negative (NEGATIVE) U Tricyclic Antidepress Negative (NEGATIVE) Ur Phencyclidine Scrn Negative (NEGATIVE) Ur Amphetamine Screen Negative (NEGATIVE) U Methamphetamines Scrn Negative (NEGATIVE) Urine MDMA Screen Negative (NEGATIVE) U Benzodiazepines Scrn Negative (NEGATIVE) Urine Cocaine Screen Negative (NEGATIVE) U Marijuana (THC) Screen Positive H (NEGATIVE) Departure - Departure Time of Disposition: 21:35 Disposition: Home, Self-Care 01 Condition: Fair Clinical Impression: Balanitis - Discharge Information *PRESCRIPTION DRUG MONITORING PROGRAM REVIEWED*: Not Applicable *COPY OF PRESCRIPTION DRUG MONITORING REPORT IN PATIENT NICO: Not Applicable Forms: ED Department Discharge Care Plan Goals: The patient was advised of the examination and lab results during the visit. The patient was encouraged to continue to take the antibiotics as previously prescribed and use the ointment as directed. The patient should follow-up with his primary care facility for continued evaluation and further management. If the patient has any additional symptoms or concerns, the patient should either return to the emergency department or visit his primary care facility. Sepsis Event Note (ED) - Evaluation Sepsis Screening Result: No Definite Risk - Focused Exam Vital Signs: Vital Signs Temp Pulse Resp BP Pulse Ox 12/06/20 20:11 36.4 C 82 18 121/83 98 - My Orders Last 24 Hours: My Active Orders 12/06/20 20:48 Urinary Catheter Assessment [RC] ASDIRECTED 12/06/20 20:52 CULTURE URINE [RM] Stat UA W/MICROSCOPIC [URIN] Urgent 12/06/20 20:55 CHLAMYDIA AND GONORRHEA BY TMA Urgent 12/06/20 21:00 Urinary Catheter Insertion [Insert Urinary Catheter] [OM.PC] Q24H - Assessment/Plan Last 24 Hours: My Active Orders 12/06/20 20:48 Urinary Catheter Assessment [RC] ASDIRECTED 12/06/20 20:52 CULTURE URINE [RM] Stat UA W/MICROSCOPIC [URIN] Urgent 12/06/20 20:55 CHLAMYDIA AND GONORRHEA BY TMA Urgent 12/06/20 21:00 Urinary Catheter Insertion [Insert Urinary Catheter] [OM.PC] Q24H
[2020-12-08 12:46] LABS: C.TRACHOMATIS BY TMA Negative (Negative); N.GONORRHOEAE BY TMA Negative (Negative)
== END 2020-12-06 21:50 | disposition home or self-care (01) ==
LOC: DL.ED 19:31
DX: N48.1 Balanitis (principal); E66.9 Obesity, unspecified; Z68.42 Body mass index [BMI] 45.0-49.9, adult; Z86.16 Personal history of COVID-19; Z88.0 Allergy status to penicillin; Z91.030 Bee allergy status; Z88.5 Allergy status to narcotic agent; Z88.8 Allergy status to other drugs, medicaments and biological substances; Z79.899 Other long term (current) drug therapy
CPT/HCPCS: 80305-QW; 81001; 87086; 87088; 87186; 87491; 87591; 99283

== ENCOUNTER 2020-12-07 08:25 | Emergency (ER) | payer MEDICAID ==
[2020-12-07 08:31] VITALS: BP 125/82; PULSE 71
[2020-12-07 09:11] LABS: ANION GAP 13.3 mEq/L (7-13); CHLORIDE,CL 103 mmol/L (98-107); SODIUM,NA 139 mmol/L (136-145)
--- NOTE | 2020-12-07 09:39 | EDM.PDOC ---
ED HPI GENERAL MEDICAL PROBLEM - General Chief Complaint: Genitourinary Problem Stated Complaint: AMBULANCE Time Seen by Provider: 12/07/20 08:40 Source of Information: Reports: Patient, RN, RN Notes Reviewed History Limitations: Reports: No Limitations - History of Present Illness INITIAL COMMENTS - FREE TEXT/NARRATIVE: Patient is a 30-year-old male who presents to ER per [facility] with complaint of right flank pain. This is chronic pain, patient was seen at 8 PM last evening. Patient has been seen in the ER approximately every 12 hours for the past many days. Patient is to be following up with his primary care provider, has an appointment with Beto Campuzano at 10 AM at the clinic. Patient states he has been having fever throughout the night, states he has been vomiting nonstop. Patient has not vomited since he has been in the ER. Temp is 97.1. Right Flank Pain Score (Numeric/FACES): 9 - Related Data Allergies Allergy/AdvReac Type Severity Reaction Status Date / Time amoxicillin [Amoxicillin] Allergy Rash Verified 12/07/20 08:34 bee venom protein (honey bee) Allergy Cannot Verified 12/07/20 08:34 Remember butorphanol [From Stadol] Allergy Hallucinati Verified 12/07/20 08:34 ons haloperidol [From Haldol] Allergy Hallucinati Verified 12/07/20 08:34 ons ketorolac tromethamine Allergy Rash Verified 12/07/20 08:34 [From Toradol] metoclopramide [From Reglan] Allergy Agitation Verified 12/07/20 08:34 promethazine HCl Allergy Hallucinati Verified 12/07/20 08:34 [From Phenergan] ons tramadol HCl [From Ultram] Allergy Rash Verified 12/07/20 08:34 Home Meds: Home Meds Tamsulosin HCl [Flomax] 0.4 mg PO BID 05/30/20 [History] Ondansetron [Zofran] 8 mg PO TID PRN 06/21/20 [History] Docusate Sodium [Colace] 100 mg PO BID PRN 10/21/20 [History] Losartan [Cozaar] 25 mg PO BEDTIME 10/24/20 [History] Naproxen 250 mg PO Q8HR PRN 11/22/20 [History] Past Medical History - Past Health History Medical/Surgical History: Denies Medical/Surgical History HEENT History: Reports: None Cardiovascular History: Reports: None Respiratory History: Reports: None Gastrointestinal History: Reports: Cholelithiasis, Gastritis, GERD Other Gastrointestinal History: gallbladder pain Genitourinary History: Reports: Renal Calculus, Other (See Below) 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 Hematologic History: Reports: None Immunologic History: Reports: None Oncologic (Cancer) History: Reports: None Dermatologic History: Reports: None - Infectious Disease History Infectious Disease History: Reports: Chicken Pox, Novel Coronavirus - Past Surgical History Head Surgeries/Procedures: Reports: None HEENT Surgical History: Reports: None Cardiovascular Surgical History: Reports: None GI Surgical History: Reports: Appendectomy, Cholecystectomy Male Surgical History: Reports: Circumcision Other Male Surgeries/Procedures: Has had kidney biopsy Musculoskeletal Surgical History: Reports: Other (See Below) Other Musculoskeletal Surgeries/Procedures:: left arm Social & Family History - Family History Family Medical History: No Pertinent Family History - Tobacco Use Tobacco Use Status *Q: Never Tobacco User - Caffeine Use Caffeine Use: Reports: Soda Caffeine Use Comment: 32 oz daily - Recreational Drug Use Recreational Drug Use: No - Living Situation & Occupation Living situation: Reports: Single, Alone Occupation: Employed ED ROS GENERAL - Review of Systems Review Of Systems: Comprehensive ROS is negative, except as noted in HPI. ED EXAM, RENAL/ - Physical Exam Exam: See Below Exam Limited By: No Limitations General Appearance: Alert, WD/WN, Moderate Distress Eye Exam: Bilateral Eye: EOMI, Normal Inspection Ears: Normal External Exam, Hearing Grossly Normal Nose: Normal Inspection Throat/Mouth: Normal Inspection, Normal Voice, No Airway Compromise Head: Atraumatic, Normocephalic Neck: Normal Inspection, Supple, Non-Tender, Full Range of Motion Respiratory/Chest: No Respiratory Distress, Lungs Clear, Normal Breath Sounds, No Accessory Muscle Use, Chest Non-Tender Cardiovascular: Normal Peripheral Pulses, Regular Rate, Rhythm, No Edema, No Gallop, No JVD, No Murmur, No Rub GI/Abdominal: Normal Bowel Sounds, Soft, Tender (Male) Exam: Deferred Rectal (Males) Exam: Deferred Back Exam: Full Range of Motion, CVA Tenderness (L), CVA Tenderness (R) Extremities: Normal Inspection, Normal Range of Motion, Non-Tender, Normal Capillary Refill, No Pedal Edema Neurological: Alert, Oriented, CN II-XII Intact, Normal Cognition, Normal Gait, Normal Reflexes, No Motor/Sensory Deficits Psychiatric: Normal Affect, Normal Mood Skin Exam: Warm, Dry, Intact, Normal Color, No Rash Lymphatic: No Adenopathy Course - Vital Signs Last Recorded V/S: Last Vital Signs Temp 97.1 F 12/07/20 08:30 Pulse 71 12/07/20 08:30 Resp 16 12/07/20 08:30 BP 125/82 12/07/20 08:30 Pulse Ox 99 12/07/20 08:30 - Orders/Labs/Meds Orders: Active Orders 24 hr Category Date Time Status DRUG SCREEN URINE BIORAD [URCHEM] Stat Lab 12/07/20 08:40 Ordered UA W/MARGARITA RFLX IF INDICATED [URIN] Stat Lab 12/07/20 08:40 Ordered Labs: Laboratory Tests 12/07/20 12/07/20 Range/Units 08:48 08:48 WBC 12.2 H (5.0-10.0) 10^3/uL RBC 5.57 (4.6-6.2) 10^6/uL Hgb 16.1 (14.0-18.0) g/dL Hct 47.4 (40.0-54.0) % MCV 85.1 (80-100) fL MCH 28.9 (27.0-34.0) pg MCHC 34.0 (33.0-35.0) g/dL Plt Count 317 (150-450) 10^3/uL Neut % (Auto) 71.3 (42.2-75.2) % Lymph % (Auto) 21.6 (20.5-50.1) % Miner % (Auto) 4.9 (2-8) % Eos % (Auto) 2.0 (1.0-3.0) % Baso % (Auto) 0.2 (0.0-1.0) % Sodium 139 (136-145) mmol/L Potassium 4.3 (3.5-5.1) mmol/L Chloride 103 (98-107) mmol/L Carbon Dioxide 27 (21-32) mmol/L Anion Gap 13.3 H (7-13) mEq/L BUN 15 (7-18) mg/dL Creatinine 0.91 (0.70-1.30) mg/dL Est Cr Clr Drug Dosing 139.26 mL/min Estimated GFR (MDRD) > 60 BUN/Creatinine Ratio 16.5 (No establ ref range) Glucose 102 H (70-99) mg/dL Calcium 8.4 L (8.5-10.1) mg/dL Total Bilirubin 0.8 (0.2-1.0) mg/dL AST 12 L (15-37) U/L ALT 36 (16-63) U/L Alkaline Phosphatase 81 (46-116) U/L C-Reactive Protein 0.7 (0.0-0.9) mg/dL Total Protein 7.6 (6.4-8.2) g/dL Albumin 3.8 (3.4-5.0) g/dL Globulin 3.8 Albumin/Globulin Ratio 1.0 - Re-Assessments/Exams Free Text/Narrative Re-Assessment/Exam: 12/07/20 09:36 Dr. Jung and Beto Campuzano PA-C present in the ER. There is concern for the patient in the amount of visits to the emergency department as well as oral narcotic's being prescribed from several different providers. Myself and the 2 other providers went into the patient's room to discuss this with him. Girlfriend was in the room as well. It was explained to the patient that we are not benefiting him at all by giving him narcotics every 12 hours in the ER per IM injections as well as narcotics. Patient became verbally abusive, swearing and telling providers they were stupid. It was explained to the patient that we do understand and are not discredited in his disease and that he does have significant pain, but we also need to have this controlled for his benefit. Patient became very angry and left the ER. Departure - Departure Time of Disposition: 09:20 Disposition: Against Medical Advice 07 Clinical Impression: Loin pain hematuria syndrome Chronic pain Qualifiers: Chronic pain type: other chronic pain Qualified Code(s): G89.29 - Other chronic pain - Discharge Information *PRESCRIPTION DRUG MONITORING PROGRAM REVIEWED*: No *COPY OF PRESCRIPTION DRUG MONITORING REPORT IN PATIENT NICO: No Forms: ED Department Discharge, Refusal of Care AMA Sepsis Event Note (ED) - Evaluation Sepsis Screening Result: No Definite Risk - Focused Exam Vital Signs: Vital Signs Temp Pulse Resp BP Pulse Ox 12/07/20 08:30 97.1 F 71 16 125/82 99 - My Orders Last 24 Hours: My Active Orders 12/07/20 08:40 DRUG SCREEN URINE BIORAD [URCHEM] Stat UA W/MARGARITA RFLX IF INDICATED [URIN] Stat - Assessment/Plan Last 24 Hours: My Active Orders 12/07/20 08:40 DRUG SCREEN URINE BIORAD [URCHEM] Stat UA W/MARGARITA RFLX IF INDICATED [URIN] Stat
== END 2020-12-07 09:35 | disposition left against medical advice (07) ==
LOC: DL.ED 08:25
DX: N39.8 Other specified disorders of urinary system (principal); G89.29 Other chronic pain; E66.9 Obesity, unspecified; Z68.41 Body mass index [BMI] 40.0-44.9, adult; Z88.0 Allergy status to penicillin; Z91.030 Bee allergy status; Z88.8 Allergy status to other drugs, medicaments and biological substances; Z88.6 Allergy status to analgesic agent; Z88.5 Allergy status to narcotic agent; Z79.899 Other long term (current) drug therapy
CPT/HCPCS: 36415; 80053; 85025; 86140; 99282; 99284

== ENCOUNTER 2020-12-10 12:44 | Emergency (ER) | payer MEDICAID | END 2020-12-10 13:50 | disposition left against medical advice (07) | LOC: DL.ED 12:44 | DX: Z53.21 Procedure and treatment not carried out due to patient leaving prior to being seen by health care provider (principal) ==

== ENCOUNTER 2020-12-11 08:35 | Emergency (ER) | payer MEDICAID ==
[2020-12-11 08:55] VITALS: BP 129/82; PULSE 70
[2020-12-11] MEDS ORDERED: HYDROmorphone 1 MG/ML Syringe IM ONE (09:01)
[2020-12-11] MEDS ORDERED: HYDROmorphone 0.5 MG/0.5 ML Syringe IM ONE (09:58)
--- NOTE | 2020-12-11 10:09 | EDM.PDOC ---
ED HPI GENERAL MEDICAL PROBLEM - General Chief Complaint: Flank Pain Stated Complaint: KIDNEYS Time Seen by Provider: 12/11/20 10:04 Source of Information: Reports: Patient History Limitations: Reports: No Limitations - History of Present Illness INITIAL COMMENTS - FREE TEXT/NARRATIVE: ED ambulatory with c/o bilateral flank pain. Has not taken anything but tylenol in last few days. Nausea, took zofran this am and better. Clinic appointment sunday am. Bilateral Flank Pain Score (Numeric/FACES): 8 - Related Data Allergies Allergy/AdvReac Type Severity Reaction Status Date / Time amoxicillin [Amoxicillin] Allergy Rash Verified 12/11/20 08:53 bee venom protein (honey bee) Allergy Cannot Verified 12/11/20 08:53 Remember butorphanol [From Stadol] Allergy Hallucinati Verified 12/11/20 08:53 ons haloperidol [From Haldol] Allergy Hallucinati Verified 12/11/20 08:53 ons ketorolac tromethamine Allergy Rash Verified 12/11/20 08:53 [From Toradol] metoclopramide [From Reglan] Allergy Agitation Verified 12/11/20 08:53 promethazine HCl Allergy Hallucinati Verified 12/11/20 08:53 [From Phenergan] ons tramadol HCl [From Ultram] Allergy Rash Verified 12/11/20 08:53 Home Meds: Home Meds Tamsulosin HCl [Flomax] 0.4 mg PO BID 05/30/20 [History] Ondansetron [Zofran] 8 mg PO TID PRN 06/21/20 [History] Docusate Sodium [Colace] 100 mg PO BID PRN 10/21/20 [History] Losartan [Cozaar] 25 mg PO BEDTIME 10/24/20 [History] Naproxen 250 mg PO Q8HR PRN 11/22/20 [History] Past Medical History - Past Health History Medical/Surgical History: Denies Medical/Surgical History HEENT History: Reports: None Cardiovascular History: Reports: None Respiratory History: Reports: None Gastrointestinal History: Reports: Cholelithiasis, Gastritis, GERD Other Gastrointestinal History: gallbladder pain Genitourinary History: Reports: Renal Calculus, Other (See Below) 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 Hematologic History: Reports: None Immunologic History: Reports: None Oncologic (Cancer) History: Reports: None Dermatologic History: Reports: None - Infectious Disease History Infectious Disease History: Reports: Chicken Pox, Novel Coronavirus - Past Surgical History Head Surgeries/Procedures: Reports: None HEENT Surgical History: Reports: None Cardiovascular Surgical History: Reports: None GI Surgical History: Reports: Appendectomy, Cholecystectomy Male Surgical History: Reports: Circumcision Other Male Surgeries/Procedures: Has had kidney biopsy Musculoskeletal Surgical History: Reports: Other (See Below) Other Musculoskeletal Surgeries/Procedures:: left arm Social & Family History - Family History Family Medical History: No Pertinent Family History - Caffeine Use Caffeine Use: Reports: Soda Caffeine Use Comment: 32 oz daily - Recreational Drug Use Recreational Drug Use: Yes Drug Use in Last 12 Months: Yes Recreational Drug Type: Reports: Marijuana/Hashish Recreational Drug Use Frequency: Daily - Living Situation & Occupation Living situation: Reports: Single, Alone Occupation: Employed ED ROS GENERAL - Review of Systems Review Of Systems: Comprehensive ROS is negative, except as noted in HPI. ED EXAM, RENAL/ - Physical Exam Exam: See Below Exam Limited By: No Limitations General Appearance: Alert, Mild Distress, Obese Ears: Hearing Grossly Normal, Normal TMs Nose: Normal Inspection Throat/Mouth: Normal Inspection Head: Atraumatic, Normocephalic Neck: Normal Inspection Respiratory/Chest: No Respiratory Distress, Lungs Clear, Normal Breath Sounds Cardiovascular: Normal Peripheral Pulses, Regular Rate, Rhythm GI/Abdominal: Normal Bowel Sounds Back Exam: CVA Tenderness (L), CVA Tenderness (R) Extremities: Normal Inspection, Normal Range of Motion Neurological: Alert, Oriented, Normal Cognition Psychiatric: Normal Affect, Flat Affect Skin Exam: Warm, Dry, Intact Course - Vital Signs Last Recorded V/S: Last Vital Signs Temp 97.8 F 12/11/20 08:53 Pulse 70 12/11/20 08:53 Resp 18 12/11/20 08:53 BP 129/82 12/11/20 08:53 Pulse Ox 99 12/11/20 08:53 - Orders/Labs/Meds Meds: Medications Discontinued Medications Generic Name Dose Route Start Last Admin Trade Name Freq PRN Reason Stop Dose Admin Hydromorphone HCl 1 mg 12/11/20 09:01 12/11/20 09:22 Hydromorphone 1 Mg/Ml Syringe IM 12/11/20 09:02 1 mg ONETIME ONE Administration Hydromorphone HCl 0.5 mg 12/11/20 09:58 12/11/20 10:07 Hydromorphone 0.5 Mg/0.5 Ml Syringe IM 12/11/20 09:59 0.5 mg ONETIME ONE Administration Departure - Departure Time of Disposition: 10:05 Disposition: Home, Self-Care 01 Condition: Good Clinical Impression: Bilateral flank pain - Discharge Information *PRESCRIPTION DRUG MONITORING PROGRAM REVIEWED*: Yes *COPY OF PRESCRIPTION DRUG MONITORING REPORT IN PATIENT NICO: Yes Instructions: Flank Pain, Adult, [id number] Forms: ED Department Discharge Additional Instructions: Tylenol 650mg every 4 hours as needed not to exceed 3000mg in 24 hours follow up in clinic on Sunday as scheduled zofran 4mg ODT every 4 hours as needed for nausea Sepsis Event Note (ED) - Evaluation Sepsis Screening Result: No Definite Risk - Focused Exam Vital Signs: Vital Signs Temp Pulse Resp BP Pulse Ox 12/11/20 08:53 97.8 F 70 18 129/82 99
== END 2020-12-11 10:11 | disposition home or self-care (01) ==
LOC: DL.ED 08:35
DX: R10.9 Unspecified abdominal pain (principal); E66.9 Obesity, unspecified; Z90.49 Acquired absence of other specified parts of digestive tract; Z87.442 Personal history of urinary calculi; Z79.899 Other long term (current) drug therapy; Z88.5 Allergy status to narcotic agent; Z88.1 Allergy status to other antibiotic agents; Z91.030 Bee allergy status; Z88.6 Allergy status to analgesic agent; Z68.41 Body mass index [BMI] 40.0-44.9, adult
CPT/HCPCS: 96372; 99283; J1170

== ENCOUNTER 2020-12-13 05:05 | Emergency (ER) | payer MEDICAID ==
[2020-12-13] MEDS ORDERED: HYDROmorphone 1 MG/ML Syringe IM ONE (05:15)
[2020-12-13 05:16] VITALS: BP 129/86; PULSE 70
--- NOTE | 2020-12-13 05:34 | EDM.PDOC ---
ED HPI GENERAL MEDICAL PROBLEM - General Chief Complaint: Genitourinary Problem Stated Complaint: BLOOD IN URINE Time Seen by Provider: 12/13/20 05:10 Source of Information: Reports: Patient History Limitations: Reports: No Limitations - History of Present Illness INITIAL COMMENTS - FREE TEXT/NARRATIVE: ED ambulatory with c/o bilateral flank pain, Appointment at 3pm today but couldn't manage at home, no vomiting, some sweats. pain in flank radiates around to groin on left, similar to usual c/o. Nor report of difficulty with urination. Back Pain Score (Numeric/FACES): 10 - Related Data Allergies Allergy/AdvReac Type Severity Reaction Status Date / Time amoxicillin [Amoxicillin] Allergy Rash Verified 12/11/20 08:53 bee venom protein (honey bee) Allergy Cannot Verified 12/11/20 08:53 Remember butorphanol [From Stadol] Allergy Hallucinati Verified 12/11/20 08:53 ons haloperidol [From Haldol] Allergy Hallucinati Verified 12/11/20 08:53 ons ketorolac tromethamine Allergy Rash Verified 12/11/20 08:53 [From Toradol] metoclopramide [From Reglan] Allergy Agitation Verified 12/11/20 08:53 promethazine HCl Allergy Hallucinati Verified 12/11/20 08:53 [From Phenergan] ons tramadol HCl [From Ultram] Allergy Rash Verified 12/11/20 08:53 Home Meds: Home Meds Tamsulosin HCl [Flomax] 0.4 mg PO BID 05/30/20 [History] Ondansetron [Zofran] 8 mg PO TID PRN 06/21/20 [History] Docusate Sodium [Colace] 100 mg PO BID PRN 10/21/20 [History] Losartan [Cozaar] 25 mg PO BEDTIME 10/24/20 [History] Naproxen 250 mg PO Q8HR PRN 11/22/20 [History] Past Medical History - Past Health History Medical/Surgical History: Denies Medical/Surgical History HEENT History: Reports: None Cardiovascular History: Reports: None Respiratory History: Reports: None Gastrointestinal History: Reports: Cholelithiasis, Gastritis, GERD Other Gastrointestinal History: gallbladder pain Genitourinary History: Reports: Renal Calculus, Other (See Below) 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 Hematologic History: Reports: None Immunologic History: Reports: None Oncologic (Cancer) History: Reports: None Dermatologic History: Reports: None - Infectious Disease History Infectious Disease History: Reports: Chicken Pox, Novel Coronavirus - Past Surgical History Head Surgeries/Procedures: Reports: None HEENT Surgical History: Reports: None Cardiovascular Surgical History: Reports: None GI Surgical History: Reports: Appendectomy, Cholecystectomy Male Surgical History: Reports: Circumcision Other Male Surgeries/Procedures: Has had kidney biopsy Musculoskeletal Surgical History: Reports: Other (See Below) Other Musculoskeletal Surgeries/Procedures:: left arm Social & Family History - Family History Family Medical History: No Pertinent Family History - Tobacco Use Tobacco Use Status *Q: Never Tobacco User Second Hand Smoke Exposure: No - Caffeine Use Caffeine Use: Reports: Energy Drinks Caffeine Use Comment: 32 oz daily - Recreational Drug Use Recreational Drug Use: No - Living Situation & Occupation Living situation: Reports: Single, Alone Occupation: Employed ED ROS GENERAL - Review of Systems Review Of Systems: Comprehensive ROS is negative, except as noted in HPI. ED EXAM, RENAL/ - Physical Exam Exam: See Below Exam Limited By: No Limitations General Appearance: Alert, Mild Distress, Obese Eye Exam: Bilateral Eye: EOMI Ears: Normal External Exam Nose: Normal Inspection Throat/Mouth: Normal Inspection Head: Atraumatic, Normocephalic Neck: Normal Inspection Respiratory/Chest: No Respiratory Distress, Lungs Clear, Normal Breath Sounds Cardiovascular: Regular Rate, Rhythm GI/Abdominal: Soft Back Exam: CVA Tenderness (L), CVA Tenderness (R) Extremities: Normal Range of Motion Neurological: Alert, Oriented, Normal Gait Skin Exam: Warm, Dry, Intact, Normal Color Course - Vital Signs Last Recorded V/S: Last Vital Signs Temp 97.4 F 12/13/20 05:13 Pulse 70 12/13/20 05:13 Resp 20 12/13/20 05:13 BP 129/86 12/13/20 05:13 Pulse Ox 99 12/13/20 05:13 - Orders/Labs/Meds Meds: Medications Discontinued Medications Generic Name Dose Route Start Last Admin Trade Name Freq PRN Reason Stop Dose Admin Hydromorphone HCl 2 mg 12/13/20 05:15 12/13/20 05:26 Hydromorphone 1 Mg/Ml Syringe IM 12/13/20 05:16 2 mg ONETIME ONE Administration Departure - Departure Time of Disposition: 05:29 Disposition: Home, Self-Care 01 Condition: Good Clinical Impression: History of Henoch-Schonlein purpura, Bilateral flank pain - Discharge Information *PRESCRIPTION DRUG MONITORING PROGRAM REVIEWED*: No *COPY OF PRESCRIPTION DRUG MONITORING REPORT IN PATIENT NICO: No Additional Instructions: rest follow up in clinic today as scheduled increase fluids Sepsis Event Note (ED) - Evaluation Sepsis Screening Result: No Definite Risk - Focused Exam Vital Signs: Vital Signs Temp Pulse Resp BP Pulse Ox 12/13/20 05:13 97.4 F 70 20 129/86 99
== END 2020-12-13 05:33 | disposition home or self-care (01) ==
LOC: DL.ED 05:05
DX: R10.9 Unspecified abdominal pain (principal); E66.9 Obesity, unspecified; Z68.42 Body mass index [BMI] 45.0-49.9, adult; Z86.2 Personal history of diseases of the blood and blood-forming organs and certain disorders involving the immune mechanism; Z88.0 Allergy status to penicillin; Z91.030 Bee allergy status; Z88.8 Allergy status to other drugs, medicaments and biological substances; Z88.6 Allergy status to analgesic agent; Z88.5 Allergy status to narcotic agent; Z79.899 Other long term (current) drug therapy
CPT/HCPCS: 96372; 99283; J1170

== ENCOUNTER 2020-12-14 21:21 | Emergency (ER) | payer MEDICAID ==
[2020-12-14 21:53] VITALS: BP 118/59; PULSE 64
[2020-12-14] MEDS ORDERED: oxyCODONE 5 MG Tab PO ONE (22:11)
[2020-12-14 22:14] LABS: ANION GAP 15.3 mEq/L (7-13); CHLORIDE,CL 105 mmol/L (98-107); SODIUM,NA 142 mmol/L (136-145)
--- NOTE | 2020-12-14 22:24 | EDM.PDOC ---
ED HPI GENERAL MEDICAL PROBLEM - General Chief Complaint: Flank Pain Stated Complaint: SEVERE ADOMINIAL PAIN KIDNEYS Time Seen by Provider: 12/14/20 22:00 Source of Information: Reports: Patient History Limitations: Reports: No Limitations - History of Present Illness INITIAL COMMENTS - FREE TEXT/NARRATIVE: ED with c/o usual flank and abdominal pain, Patient seen early am [place], clinic appointment with Primary care on Sunday afternoon. Restarted on percocet and follow up on , Still having pain despite medication.Did not attempt to contact clinic today. no vomiting. No fever, Usual chills Reports some blood in urine. Bilateral Flank Pain Score (Numeric/FACES): 8 - Related Data Allergies Allergy/AdvReac Type Severity Reaction Status Date / Time amoxicillin [Amoxicillin] Allergy Rash Verified 12/11/20 08:53 bee venom protein (honey bee) Allergy Cannot Verified 12/11/20 08:53 Remember butorphanol [From Stadol] Allergy Hallucinati Verified 12/11/20 08:53 ons haloperidol [From Haldol] Allergy Hallucinati Verified 12/11/20 08:53 ons ketorolac tromethamine Allergy Rash Verified 12/11/20 08:53 [From Toradol] metoclopramide [From Reglan] Allergy Agitation Verified 12/11/20 08:53 promethazine HCl Allergy Hallucinati Verified 12/11/20 08:53 [From Phenergan] ons tramadol HCl [From Ultram] Allergy Rash Verified 12/11/20 08:53 Home Meds: Home Meds Tamsulosin HCl [Flomax] 0.4 mg PO BID 05/30/20 [History] Ondansetron [Zofran] 8 mg PO TID PRN 06/21/20 [History] Docusate Sodium [Colace] 100 mg PO BID PRN 10/21/20 [History] Losartan [Cozaar] 25 mg PO BEDTIME 10/24/20 [History] Naproxen 250 mg PO Q8HR PRN 11/22/20 [History] oxyCODONE HCl/Acetaminophen [Oxycodone-Acetaminophen 5-325] 1 tab PO Q6HR PRN 12/14/20 [History] Past Medical History - Past Health History Medical/Surgical History: Denies Medical/Surgical History HEENT History: Reports: None Cardiovascular History: Reports: None Respiratory History: Reports: None Gastrointestinal History: Reports: Cholelithiasis, Gastritis, GERD Other Gastrointestinal History: gallbladder pain Genitourinary History: Reports: Renal Calculus, Other (See Below) 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 Hematologic History: Reports: None Immunologic History: Reports: None Oncologic (Cancer) History: Reports: None Dermatologic History: Reports: None - Infectious Disease History Infectious Disease History: Reports: Chicken Pox, Novel Coronavirus - Past Surgical History Head Surgeries/Procedures: Reports: None HEENT Surgical History: Reports: None Cardiovascular Surgical History: Reports: None GI Surgical History: Reports: Appendectomy, Cholecystectomy Male Surgical History: Reports: Circumcision Other Male Surgeries/Procedures: Has had kidney biopsy Musculoskeletal Surgical History: Reports: Other (See Below) Other Musculoskeletal Surgeries/Procedures:: left arm Social & Family History - Family History Family Medical History: No Pertinent Family History - Tobacco Use Tobacco Use Status *Q: Never Tobacco User - Caffeine Use Caffeine Use: Reports: None Caffeine Use Comment: 32 oz daily - Recreational Drug Use Recreational Drug Use: No - Living Situation & Occupation Living situation: Reports: Single, Alone Occupation: Employed ED ROS GENERAL - Review of Systems Review Of Systems: Comprehensive ROS is negative, except as noted in HPI. ED EXAM, RENAL/ - Physical Exam Exam: See Below Exam Limited By: No Limitations General Appearance: Alert, No Apparent Distress, Obese Eye Exam: Bilateral Eye: PERRL Ears: Normal External Exam Nose: Normal Inspection Throat/Mouth: Normal Inspection Head: Atraumatic, Normocephalic Respiratory/Chest: No Respiratory Distress, Lungs Clear Cardiovascular: Normal Peripheral Pulses, Regular Rate, Rhythm GI/Abdominal: Normal Bowel Sounds, Soft Back Exam: CVA Tenderness (L), CVA Tenderness (R) Extremities: Normal Range of Motion Neurological: Alert, Oriented, Normal Cognition Psychiatric: Normal Affect Skin Exam: Warm, Dry, Intact, Normal Color Course - Vital Signs Last Recorded V/S: Last Vital Signs Temp 97.2 F 12/14/20 21:37 Pulse 64 12/14/20 21:37 Resp 20 12/14/20 21:37 BP 118/59 L 12/14/20 21:37 Pulse Ox 100 12/14/20 21:37 - Orders/Labs/Meds Labs: Laboratory Tests 12/14/20 12/14/20 12/14/20 Range/Units 21:45 21:45 21:50 WBC 12.3 H (5.0-10.0) 10^3/uL RBC 5.01 (4.6-6.2) 10^6/uL Hgb 14.7 (14.0-18.0) g/dL Hct 42.5 (40.0-54.0) % MCV 84.8 (80-100) fL MCH 29.3 (27.0-34.0) pg MCHC 34.6 (33.0-35.0) g/dL Plt Count 300 (150-450) 10^3/uL Neut % (Auto) 66.5 (42.2-75.2) % Lymph % (Auto) 25.0 (20.5-50.1) % [place] % (Auto) 6.1 (2-8) % Eos % (Auto) 2.2 (1.0-3.0) % Baso % (Auto) 0.2 (0.0-1.0) % Sodium (136-145) mmol/L Potassium (3.5-5.1) mmol/L Chloride (98-107) mmol/L Carbon Dioxide (21-32) mmol/L Anion Gap (7-13) mEq/L BUN (7-18) mg/dL Creatinine (0.70-1.30) mg/dL Est Cr Clr Drug Dosing mL/min Estimated GFR (MDRD) BUN/Creatinine Ratio (No establ ref range) Glucose (70-99) mg/dL Calcium (8.5-10.1) mg/dL Total Bilirubin (0.2-1.0) mg/dL AST (15-37) U/L ALT (16-63) U/L Alkaline Phosphatase (46-116) U/L Total Protein (6.4-8.2) g/dL Albumin (3.4-5.0) g/dL Globulin Albumin/Globulin Ratio Urine Color Yellow (YELLOW) Urine Appearance Clear (CLEAR) Urine pH 7.0 (5.0-9.0) Ur Specific [place] 1.025 (1.005-1.030) Urine Protein Negative (NEGATIVE) Urine Glucose (UA) Negative (NEGATIVE) Urine Ketones Negative (NEGATIVE) Urine Occult Blood Negative (NEGATIVE) Urine Nitrite Negative (NEGATIVE) Urine Bilirubin Negative (NEGATIVE) Urine Urobilinogen 0.2 (0.2-1.0) mg/dL Ur Leukocyte Esterase Negative (NEGATIVE) Urine Opiates Screen Negative (NEGATIVE) Ur Oxycodone Screen Positive H (NEGATIVE) Urine Methadone Screen Negative (NEGATIVE) Ur Barbiturates Screen Negative (NEGATIVE) U Tricyclic Antidepress Negative (NEGATIVE) Ur Phencyclidine Scrn Negative (NEGATIVE) Ur Amphetamine Screen Negative (NEGATIVE) U Methamphetamines Scrn Negative (NEGATIVE) Urine MDMA Screen Negative (NEGATIVE) U Benzodiazepines Scrn Negative (NEGATIVE) Urine Cocaine Screen Negative (NEGATIVE) U Marijuana (THC) Screen Positive H (NEGATIVE) 12/14/20 Range/Units 21:50 WBC (5.0-10.0) 10^3/uL RBC (4.6-6.2) 10^6/uL Hgb (14.0-18.0) g/dL Hct (40.0-54.0) % MCV (80-100) fL MCH (27.0-34.0) pg MCHC (33.0-35.0) g/dL Plt Count (150-450) 10^3/uL Neut % (Auto) (42.2-75.2) % Lymph % (Auto) (20.5-50.1) % [place] % (Auto) (2-8) % Eos % (Auto) (1.0-3.0) % Baso % (Auto) (0.0-1.0) % Sodium 142 (136-145) mmol/L Potassium 4.3 (3.5-5.1) mmol/L Chloride 105 (98-107) mmol/L Carbon Dioxide 26 (21-32) mmol/L Anion Gap 15.3 H (7-13) mEq/L BUN 15 (7-18) mg/dL Creatinine 0.97 (0.70-1.30) mg/dL Est Cr Clr Drug Dosing 123.33 mL/min Estimated GFR (MDRD) > 60 BUN/Creatinine Ratio 15.5 (No establ ref range) Glucose 89 (70-99) mg/dL Calcium 8.0 L (8.5-10.1) mg/dL Total Bilirubin 0.4 (0.2-1.0) mg/dL AST 14 L (15-37) U/L ALT 34 (16-63) U/L Alkaline Phosphatase 87 (46-116) U/L Total Protein 6.9 (6.4-8.2) g/dL Albumin 3.5 (3.4-5.0) g/dL Globulin 3.4 Albumin/Globulin Ratio 1.0 Urine Color (YELLOW) Urine Appearance (CLEAR) Urine pH (5.0-9.0) Ur Specific [place] (1.005-1.030) Urine Protein (NEGATIVE) Urine Glucose (UA) (NEGATIVE) Urine Ketones (NEGATIVE) Urine Occult Blood (NEGATIVE) Urine Nitrite (NEGATIVE) Urine Bilirubin (NEGATIVE) Urine Urobilinogen (0.2-1.0) mg/dL Ur Leukocyte Esterase (NEGATIVE) Urine Opiates Screen (NEGATIVE) Ur Oxycodone Screen (NEGATIVE) Urine Methadone Screen (NEGATIVE) Ur Barbiturates Screen (NEGATIVE) U Tricyclic Antidepress (NEGATIVE) Ur Phencyclidine Scrn (NEGATIVE) Ur Amphetamine Screen (NEGATIVE) U Methamphetamines Scrn (NEGATIVE) Urine MDMA Screen (NEGATIVE) U Benzodiazepines Scrn (NEGATIVE) Urine Cocaine Screen (NEGATIVE) U Marijuana (THC) Screen (NEGATIVE) Meds: Medications Discontinued Medications Generic Name Dose Route Start Last Admin Trade Name Chavo PRN Reason Stop Dose Admin Oxycodone HCl 5 mg 12/14/20 22:11 12/14/20 22:25 Oxycodone 5 Mg Tab PO 12/14/20 22:12 5 mg ONETIME ONE Administration Departure - Departure Time of Disposition: 22:10 Disposition: Home, Self-Care 01 Condition: Good Clinical Impression: 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
== END 2020-12-14 22:27 | disposition home or self-care (01) ==
LOC: DL.ED 21:21
DX: G89.29 Other chronic pain (principal); R10.30 Lower abdominal pain, unspecified; K21.9 Gastro-esophageal reflux disease without esophagitis; E66.9 Obesity, unspecified; Z86.16 Personal history of COVID-19; Z90.49 Acquired absence of other specified parts of digestive tract; Z68.42 Body mass index [BMI] 45.0-49.9, adult; Z88.0 Allergy status to penicillin; Z91.030 Bee allergy status; Z88.5 Allergy status to narcotic agent; Z88.8 Allergy status to other drugs, medicaments and biological substances; Z79.899 Other long term (current) drug therapy
CPT/HCPCS: 36415; 80053; 80305-QW; 81003; 85025; 99283; 99284; A9270-GY

== ENCOUNTER 2020-12-19 06:33 | Emergency (ER) | payer MEDICAID ==
[2020-12-19 06:52] VITALS: BP 131/88; PULSE 70
--- NOTE | 2020-12-19 07:07 | EDM.PDOC ---
ED HPI GENERAL MEDICAL PROBLEM - General Chief Complaint: Genitourinary Problem Stated Complaint: SEVERE ABDOMINAL PAIN Time Seen by Provider: 12/19/20 07:06 Source of Information: Reports: Patient, RN, RN Notes Reviewed History Limitations: Reports: No Limitations - History of Present Illness INITIAL COMMENTS - FREE TEXT/NARRATIVE: Patient is a 30 year old male who presents to ER with c/o flank/abdominal pain from loin hematuria pain syndrome. Patient states he is in a strict narcotic relationship with his primary SHONA Dobbs. Patient states he is on his way to [place] for his girlfriends fathers . Patient states for the past 2 days he has been having increased pain. Onset: Today, Sudden Bilateral Flank Pain Score (Numeric/FACES): 8 - Related Data Allergies Allergy/AdvReac Type Severity Reaction Status Date / Time amoxicillin [Amoxicillin] Allergy Rash Verified 12/19/20 06:48 bee venom protein (honey bee) Allergy Cannot Verified 12/19/20 06:48 Remember butorphanol [From Stadol] Allergy Hallucinati Verified 12/19/20 06:48 ons haloperidol [From Haldol] Allergy Hallucinati Verified 12/19/20 06:48 ons ketorolac tromethamine Allergy Rash Verified 12/19/20 06:48 [From Toradol] metoclopramide [From Reglan] Allergy Agitation Verified 12/19/20 06:48 promethazine HCl Allergy Hallucinati Verified 12/19/20 06:48 [From Phenergan] ons tramadol HCl [From Ultram] Allergy Rash Verified 12/19/20 06:48 Home Meds: Home Meds Tamsulosin HCl [Flomax] 0.4 mg PO BID 05/30/20 [History] Ondansetron [Zofran] 8 mg PO TID PRN 06/21/20 [History] Docusate Sodium [Colace] 100 mg PO BID PRN 10/21/20 [History] Losartan [Cozaar] 25 mg PO BEDTIME 10/24/20 [History] Naproxen 250 mg PO Q8HR PRN 11/22/20 [History] oxyCODONE HCl/Acetaminophen [Endocet 10-325 mg Tablet] 1 each PO Q6H PRN [History] Past Medical History - Past Health History Medical/Surgical History: Denies Medical/Surgical History HEENT History: Reports: None Cardiovascular History: Reports: None Respiratory History: Reports: None Gastrointestinal History: Reports: Cholelithiasis, Gastritis, GERD Other Gastrointestinal History: gallbladder pain Genitourinary History: Reports: Renal Calculus, Other (See Below) 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 Hematologic History: Reports: None Immunologic History: Reports: None Oncologic (Cancer) History: Reports: None Dermatologic History: Reports: None - Infectious Disease History Infectious Disease History: Reports: Chicken Pox, Novel Coronavirus - Past Surgical History Head Surgeries/Procedures: Reports: None HEENT Surgical History: Reports: None Cardiovascular Surgical History: Reports: None GI Surgical History: Reports: Appendectomy, Cholecystectomy Male Surgical History: Reports: Circumcision Other Male Surgeries/Procedures: Has had kidney biopsy Musculoskeletal Surgical History: Reports: Other (See Below) Other Musculoskeletal Surgeries/Procedures:: left arm Social & Family History - Family History Family Medical History: No Pertinent Family History - Caffeine Use Caffeine Use: Reports: Soda Caffeine Use Comment: 32 oz daily - Recreational Drug Use Recreational Drug Use: Yes Drug Use in Last 12 Months: Yes Recreational Drug Type: Reports: Marijuana/Hashish Recreational Drug Use Frequency: Daily - Living Situation & Occupation Living situation: Reports: Single, Alone Occupation: Employed ED ROS GENERAL - Review of Systems Review Of Systems: Comprehensive ROS is negative, except as noted in HPI. ED EXAM, RENAL/ - Physical Exam Exam: See Below Exam Limited By: No Limitations General Appearance: Alert, WD/WN, Moderate Distress Eye Exam: Bilateral Eye: EOMI, Normal Inspection Ears: Normal External Exam, Hearing Grossly Normal Nose: Normal Inspection, Normal Mucosa, No Blood Throat/Mouth: Normal Inspection, Normal Lips, Normal Teeth, Normal Gums, Normal Oropharynx, Normal Voice, No Airway Compromise Head: Atraumatic, Normocephalic Neck: Normal Inspection, Supple, Non-Tender, Full Range of Motion Respiratory/Chest: No Respiratory Distress, Lungs Clear, Normal Breath Sounds, No Accessory Muscle Use, Chest Non-Tender Cardiovascular: Normal Peripheral Pulses, Regular Rate, Rhythm, No Edema, No Gallop, No JVD, No Murmur, No Rub GI/Abdominal: Normal Bowel Sounds, Soft, Non-Tender (Male) Exam: Deferred Rectal (Males) Exam: Deferred Back Exam: Normal Inspection, Full Range of Motion, CVA Tenderness (L), CVA Tenderness (R) Extremities: Normal Inspection, Normal Range of Motion, Non-Tender, Normal Capillary Refill, No Pedal Edema Neurological: Alert, Oriented, CN II-XII Intact, Normal Cognition, Normal Gait, Normal Reflexes, No Motor/Sensory Deficits Psychiatric: Normal Affect, Normal Mood Skin Exam: Warm, Dry, Intact, Normal Color, No Rash Lymphatic: No Adenopathy Course - Vital Signs Last Recorded V/S: Last Vital Signs Temp 97.4 F 12/19/20 06:50 Pulse 70 12/19/20 06:50 Resp 18 12/19/20 06:50 BP 131/88 12/19/20 06:50 Pulse Ox 100 12/19/20 06:50 - Orders/Labs/Meds Orders: Active Orders 24 hr Category Date Time Status HYDROmorphone [Dilaudid] Med 12/19/20 07:16 Once 1 mg IVPUSH ONETIME ONE Departure - Departure Time of Disposition: 07:45 Disposition: Home, Self-Care 01 Condition: Good Clinical Impression: Loin pain hematuria syndrome - Discharge Information *PRESCRIPTION DRUG MONITORING PROGRAM REVIEWED*: No *COPY OF PRESCRIPTION DRUG MONITORING REPORT IN PATIENT NICO: No Forms: ED Department Discharge Additional Instructions: Follow up with [facility] next week. Sepsis Event Note (ED) - Evaluation Sepsis Screening Result: No Definite Risk - Focused Exam Vital Signs: Vital Signs Temp Pulse Resp BP Pulse Ox 12/19/20 06:50 97.4 F 70 18 131/88 100 - My Orders Last 24 Hours: My Active Orders 12/19/20 07:16 HYDROmorphone [Dilaudid] 1 mg IVPUSH ONETIME ONE - Assessment/Plan Last 24 Hours: My Active Orders 12/19/20 07:16 HYDROmorphone [Dilaudid] 1 mg IVPUSH ONETIME ONE
[2020-12-19] MEDS: HYDROmorphone 1 MG/ML Syringe IVPUSH ONE ×2 (07:30→07:34)
[2020-12-19] MEDS ORDERED: HYDROmorphone 1 MG/ML Syringe IM ONE (07:32)
== END 2020-12-19 07:30 | disposition home or self-care (01) ==
LOC: DL.ED 06:33
DX: M54.5 Low back pain (principal); R31.9 Hematuria, unspecified; E66.9 Obesity, unspecified; Z91.030 Bee allergy status; Z88.0 Allergy status to penicillin; Z88.5 Allergy status to narcotic agent; Z88.8 Allergy status to other drugs, medicaments and biological substances; Z68.42 Body mass index [BMI] 45.0-49.9, adult
CPT/HCPCS: 96372; 99283; J1170

== ENCOUNTER 2020-12-25 11:54 | Emergency (ER) | payer MEDICAID ==
[2020-12-25 12:12] VITALS: BP 133/79; PULSE 64
[2020-12-25] MEDS ORDERED: HYDROmorphone 1 MG/ML Syringe IM ONE (12:17)
--- NOTE | 2020-12-25 12:29 | EDM.PDOC ---
Scribed by Dian Mendes 12/25/20 1216 for Jovan Villaseñor MD ED HPI GENERAL MEDICAL PROBLEM - General Chief Complaint: Flank Pain Stated Complaint: KIDNEY ISSUES Time Seen by Provider: 12/25/20 12:10 Source of Information: Reports: Patient, RN, RN Notes Reviewed History Limitations: Reports: No Limitations - History of Present Illness INITIAL COMMENTS - FREE TEXT/NARRATIVE: Pt presents to ER with c/o severe left flank pain. He reports severe pain rated 10/10 that shoots pain from the left flank to the left lower abdomen and into the groin/genitals. Pt has Hx of loin pain hematuria syndrome and HSP. Last week I had a lengthy discussion with the pt about inappropriate use of ER to meet his chronic pain needs. Pt was receptive and has an appointment established with [facility] for chronic pain management. Duration: Chronic Location: Reports: Abdomen (Flank) Quality: Reports: Same as Previous Episode Severity: Severe Improves with: Reports: None Worsens with: Reports: None Associated Symptoms: Reports: No Other Symptoms Bilateral Flank Pain Score (Numeric/FACES): 8 - Related Data Allergies Allergy/AdvReac Type Severity Reaction Status Date / Time amoxicillin [Amoxicillin] Allergy Rash Verified 12/19/20 06:48 bee venom protein (honey bee) Allergy Cannot Verified 12/19/20 06:48 Remember butorphanol [From Stadol] Allergy Hallucinati Verified 12/19/20 06:48 ons haloperidol [From Haldol] Allergy Hallucinati Verified 12/19/20 06:48 ons ketorolac tromethamine Allergy Rash Verified 12/19/20 06:48 [From Toradol] metoclopramide [From Reglan] Allergy Agitation Verified 12/19/20 06:48 promethazine HCl Allergy Hallucinati Verified 12/19/20 06:48 [From Phenergan] ons tramadol HCl [From Ultram] Allergy Rash Verified 12/19/20 06:48 Home Meds: Home Meds Tamsulosin HCl [Flomax] 0.4 mg PO BID 05/30/20 [History] Ondansetron [Zofran] 8 mg PO TID PRN 06/21/20 [History] Docusate Sodium [Colace] 100 mg PO BID PRN 10/21/20 [History] Losartan [Cozaar] 25 mg PO BEDTIME 10/24/20 [History] Naproxen 250 mg PO Q8HR PRN 11/22/20 [History] oxyCODONE HCl/Acetaminophen [Endocet 10-325 mg Tablet] 1 each PO Q6H PRN 12/19/20 [History] Past Medical History - Past Health History Medical/Surgical History: Denies Medical/Surgical History HEENT History: Reports: None Cardiovascular History: Reports: None Respiratory History: Reports: None Gastrointestinal History: Reports: Cholelithiasis, Gastritis, GERD Other Gastrointestinal History: gallbladder pain Genitourinary History: Reports: Renal Calculus, Other (See Below) 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 Hematologic History: Reports: None Immunologic History: Reports: None Oncologic (Cancer) History: Reports: None Dermatologic History: Reports: None - Infectious Disease History Infectious Disease History: Reports: Chicken Pox, Novel Coronavirus - Past Surgical History Head Surgeries/Procedures: Reports: None HEENT Surgical History: Reports: None Cardiovascular Surgical History: Reports: None GI Surgical History: Reports: Appendectomy, Cholecystectomy Male Surgical History: Reports: Circumcision Other Male Surgeries/Procedures: Has had kidney biopsy Musculoskeletal Surgical History: Reports: Other (See Below) Other Musculoskeletal Surgeries/Procedures:: left arm Social & Family History - Family History Family Medical History: No Pertinent Family History - Caffeine Use Caffeine Use: Reports: Soda Caffeine Use Comment: 32 oz daily - Living Situation & Occupation Living situation: Reports: Single, Alone Occupation: Employed ED ROS GENERAL - Review of Systems Review Of Systems: Comprehensive ROS is negative, except as noted in HPI. ED EXAM,LOWER BACK PAIN/INJURY - Physical Exam Exam: See Below Exam Limited By: No Limitations General Appearance: Alert, WD/WN, No Apparent Distress, Obese Throat/Mouth: Normal Voice, No Airway Compromise Head: Atraumatic, Normocephalic Respiratory/Chest: No Respiratory Distress Cardiovascular: Regular Rate, Rhythm GI/Abdominal: Normal Bowel Sounds, Soft, Tender (LUQ, LLQ). No: Guarding, Rigid Back Exam: Full Range of Motion, CVA Tenderness (L). No: CVA Tenderness (R) Extremities: Normal Inspection Neurological: Alert, Normal Mood/Affect, No Motor/Sensory Deficits Psychiatric: Normal Mood Skin Exam: Warm, Dry, Intact, Normal Color, No Rash Course - Vital Signs Last Recorded V/S: Last Vital Signs Temp 97.1 F 12/25/20 12:10 Pulse 64 12/25/20 12:10 Resp 18 12/25/20 12:10 BP 133/79 12/25/20 12:10 Pulse Ox 100 12/25/20 12:10 - Orders/Labs/Meds Meds: Medications Discontinued Medications Generic Name Dose Route Start Last Admin Trade Name Chavo PRN Reason Stop Dose Admin Hydromorphone HCl 2 mg 12/25/20 12:17 12/25/20 12:25 Hydromorphone 1 Mg/Ml Syringe IM 12/25/20 12:18 2 mg ONETIME ONE Administration Departure - Departure Time of Disposition: 12:28 Disposition: Home, Self-Care 01 Condition: Good Clinical Impression: Loin pain without hematuria syndrome, History of Henoch-Schonlein purpura - Discharge Information *PRESCRIPTION DRUG MONITORING PROGRAM REVIEWED*: No *COPY OF PRESCRIPTION DRUG MONITORING REPORT IN PATIENT NICO: No Instructions: Flank Pain, Adult, [id number] Forms: ED Department Discharge Additional Instructions: Follow up in clinic as planned. Sepsis Event Note (ED) - Focused Exam Vital Signs: Vital Signs Temp Pulse Resp BP Pulse Ox 12/25/20 12:10 97.1 F 64 18 133/79 100 I have read and agree with the documentation that has been completed regarding this visit. By signing this record, I attest that the documentation was completed in my physical presence and is an accurate record of the encounter.
== END 2020-12-25 12:32 | disposition home or self-care (01) ==
LOC: DL.ED 11:54
DX: M54.5 Low back pain (principal); R10.32 Left lower quadrant pain; R10.12 Left upper quadrant pain; E66.9 Obesity, unspecified; Z68.42 Body mass index [BMI] 45.0-49.9, adult; Z88.0 Allergy status to penicillin; Z91.030 Bee allergy status; Z88.8 Allergy status to other drugs, medicaments and biological substances; Z88.5 Allergy status to narcotic agent; Z79.899 Other long term (current) drug therapy
CPT/HCPCS: 96372; 99283; J1170

== ENCOUNTER 2020-12-26 09:56 | Emergency (ER) | payer MEDICAID ==
[2020-12-26] MEDS ORDERED: HYDROmorphone 1 MG/ML Syringe IM ONE (10:03)
--- NOTE | 2020-12-26 10:22 | EDM.PDOC ---
Scribed by Dian Mendes 12/26/20 1021 for Jovan Villaseñor MD ED HPI GENERAL MEDICAL PROBLEM - General Chief Complaint: Genitourinary Problem Stated Complaint: KIDNEY ISSUES Time Seen by Provider: 12/26/20 10:21 Source of Information: Reports: Patient, RN, RN Notes Reviewed History Limitations: Reports: No Limitations - History of Present Illness INITIAL COMMENTS - FREE TEXT/NARRATIVE: Pt presents to ER with c/o severe left flank pain. He reports severe pain rated 10/10 that shoots pain from the left flank to the left lower abdomen and into the groin/genitals. Pt has Hx of loin pain hematuria syndrome and HSP. Last week I had a lengthy discussion with the pt about inappropriate use of ER to meet his chronic pain needs. Pt was receptive and has an appointment established with [facility] for chronic pain management. Onset: Other (chronic recurring) Duration: Constant Location: Reports: Other (left flank) Severity: Severe Improves with: Reports: None Worsens with: Reports: None Associated Symptoms: Reports: No Other Symptoms - Related Data Allergies Allergy/AdvReac Type Severity Reaction Status Date / Time amoxicillin [Amoxicillin] Allergy Rash Verified 12/19/20 06:48 bee venom protein (honey bee) Allergy Cannot Verified 12/19/20 06:48 Remember butorphanol [From Stadol] Allergy Hallucinati Verified 12/19/20 06:48 ons haloperidol [From Haldol] Allergy Hallucinati Verified 12/19/20 06:48 ons ketorolac tromethamine Allergy Rash Verified 12/19/20 06:48 [From Toradol] metoclopramide [From Reglan] Allergy Agitation Verified 12/19/20 06:48 promethazine HCl Allergy Hallucinati Verified 12/19/20 06:48 [From Phenergan] ons tramadol HCl [From Ultram] Allergy Rash Verified 12/19/20 06:48 Home Meds: Home Meds Tamsulosin HCl [Flomax] 0.4 mg PO BID 05/30/20 [History] Ondansetron [Zofran] 8 mg PO TID PRN 06/21/20 [History] Docusate Sodium [Colace] 100 mg PO BID PRN 10/21/20 [History] Losartan [Cozaar] 25 mg PO BEDTIME 10/24/20 [History] Naproxen 250 mg PO Q8HR PRN 11/22/20 [History] oxyCODONE HCl/Acetaminophen [Endocet 10-325 mg Tablet] 1 each PO Q6H PRN 12/19/20 [History] Past Medical History - Past Health History Medical/Surgical History: Denies Medical/Surgical History HEENT History: Reports: None Cardiovascular History: Reports: None Respiratory History: Reports: None Gastrointestinal History: Reports: Cholelithiasis, Gastritis, GERD Other Gastrointestinal History: gallbladder pain Genitourinary History: Reports: Renal Calculus, Other (See Below) 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 Hematologic History: Reports: None Immunologic History: Reports: None Oncologic (Cancer) History: Reports: None Dermatologic History: Reports: None - Infectious Disease History Infectious Disease History: Reports: Chicken Pox, Novel Coronavirus - Past Surgical History Head Surgeries/Procedures: Reports: None HEENT Surgical History: Reports: None Cardiovascular Surgical History: Reports: None GI Surgical History: Reports: Appendectomy, Cholecystectomy Male Surgical History: Reports: Circumcision Other Male Surgeries/Procedures: Has had kidney biopsy Musculoskeletal Surgical History: Reports: Other (See Below) Other Musculoskeletal Surgeries/Procedures:: left arm Social & Family History - Family History Family Medical History: No Pertinent Family History - Caffeine Use Caffeine Use: Reports: Soda Caffeine Use Comment: 32 oz daily - Living Situation & Occupation Living situation: Reports: Single, Alone Occupation: Employed ED ROS GENERAL - Review of Systems Review Of Systems: Comprehensive ROS is negative, except as noted in HPI. ED EXAM, RENAL/ - Physical Exam Exam: See Below Exam Limited By: No Limitations General Appearance: Alert, WD/WN, No Apparent Distress Throat/Mouth: Normal Lips, Normal Voice, No Airway Compromise Head: Atraumatic, Normocephalic Neck: Normal Inspection Respiratory/Chest: No Respiratory Distress Cardiovascular: Regular Rate, Rhythm GI/Abdominal: Normal Bowel Sounds, Soft, No Distention, Other (left upper quadrant) (Male) Exam: Deferred Rectal (Males) Exam: Deferred Back Exam: CVA Tenderness (L). No: CVA Tenderness (R), Vertebral Tenderness Extremities: Normal Inspection Neurological: Alert, Oriented, No Motor/Sensory Deficits Psychiatric: Normal Mood Skin Exam: Warm, Dry, Intact, Normal Color, No Rash Course - Orders/Labs/Meds Meds: Medications Discontinued Medications Generic Name Dose Route Start Last Admin Trade Name Chavo PRN Reason Stop Dose Admin Hydromorphone HCl 2 mg 12/26/20 10:03 Hydromorphone 1 Mg/Ml Syringe IM 12/26/20 10:04 ONETIME ONE Departure - Departure Time of Disposition: 10:45 Disposition: Home, Self-Care 01 Condition: Fair Clinical Impression: Loin pain hematuria syndrome, History of Henoch-Schonlein purpura, Flank pain Chronic pain Qualifiers: Chronic pain type: chronic pain syndrome Qualified Code(s): G89.4 - Chronic enmanuel n syndrome - Discharge Information *PRESCRIPTION DRUG MONITORING PROGRAM REVIEWED*: No *COPY OF PRESCRIPTION DRUG MONITORING REPORT IN PATIENT NICO: No Instructions: Flank Pain, Adult, Chronic Pain, Adult Forms: ED Department Discharge Additional Instructions: Follow up in clinic for ongoing pain management. I have read and agree with the documentation that has been completed regarding this visit. By signing this record, I attest that the documentation was completed in my physical presence and is an accurate record of the encounter.
[2020-12-26 10:25] VITALS: BP 141/79; PULSE 65
== END 2020-12-26 10:45 | disposition home or self-care (01) ==
LOC: DL.ED 09:56
DX: N39.8 Other specified disorders of urinary system (principal); G89.4 Chronic pain syndrome; E66.9 Obesity, unspecified; Z68.42 Body mass index [BMI] 45.0-49.9, adult; Z88.0 Allergy status to penicillin; Z91.030 Bee allergy status; Z88.6 Allergy status to analgesic agent; Z88.5 Allergy status to narcotic agent; Z88.8 Allergy status to other drugs, medicaments and biological substances; Z79.899 Other long term (current) drug therapy
CPT/HCPCS: 96372; 99283; J1170

== ENCOUNTER 2020-12-26 23:05 | Emergency (ER) | payer MEDICAID | END 2020-12-27 00:36 | disposition left against medical advice (07) | LOC: DL.ED 23:05 | DX: Z53.21 Procedure and treatment not carried out due to patient leaving prior to being seen by health care provider (principal) ==

== ENCOUNTER 2020-12-28 17:26 | Emergency (ER) | payer MEDICAID | END 2020-12-28 18:22 | disposition left against medical advice (07) | LOC: DL.ED 17:26 | DX: N28.9 Disorder of kidney and ureter, unspecified (principal); Z53.21 Procedure and treatment not carried out due to patient leaving prior to being seen by health care provider ==

== ENCOUNTER 2020-12-28 22:17 | Emergency (ER) | payer MEDICAID ==
[2020-12-28 22:29] VITALS: BP 140/66; PULSE 64
--- NOTE | 2020-12-28 22:45 | EDM.PDOC ---
ED HPI GENERAL MEDICAL PROBLEM - General Chief Complaint: Flank Pain Stated Complaint: BY AMBULANCE Time Seen by Provider: 12/28/20 22:35 Source of Information: Reports: Patient History Limitations: Reports: No Limitations - History of Present Illness INITIAL COMMENTS - FREE TEXT/NARRATIVE: This 30 yo male patient was brought to the ED by [facility] due to continued lower back and lower abdominal pain. The patient reports his symptoms have been on going for the past week. The patient reports he has been following the directions given by his primary care facility. The patient reports he did take his last dose of Oxycodone tonight at 1700 with no symptom relief. The patient reports he has an appointment with pain management later this month. The patient has signed into the ED several times this week (including tonight at 1800), but has not stayed to be seen. Duration: Week(s):, Chronic, Constant Location: Reports: Abdomen, Back Quality: Reports: Ache Severity: Severe Improves with: Reports: None Worsens with: Reports: None Context: Reports: Other Associated Symptoms: Reports: No Other Symptoms Bilateral Flank Pain Score (Numeric/FACES): 10 - Related Data Allergies Allergy/AdvReac Type Severity Reaction Status Date / Time amoxicillin [Amoxicillin] Allergy Rash Verified 12/26/20 10:26 bee venom protein (honey bee) Allergy Cannot Verified 12/26/20 10:26 Remember butorphanol [From Stadol] Allergy Hallucinati Verified 12/26/20 10:26 ons haloperidol [From Haldol] Allergy Hallucinati Verified 12/26/20 10:26 ons ketorolac tromethamine Allergy Rash Verified 12/26/20 10:26 [From Toradol] metoclopramide [From Reglan] Allergy Agitation Verified 12/26/20 10:26 promethazine HCl Allergy Hallucinati Verified 12/26/20 10:26 [From Phenergan] ons tramadol HCl [From Ultram] Allergy Rash Verified 12/26/20 10:26 Home Meds: Home Meds Tamsulosin HCl [Flomax] 0.4 mg PO BID 05/30/20 [History] Ondansetron [Zofran] 8 mg PO TID PRN 06/21/20 [History] Docusate Sodium [Colace] 100 mg PO BID PRN 10/21/20 [History] Losartan [Cozaar] 25 mg PO BEDTIME 10/24/20 [History] Naproxen 250 mg PO Q8HR PRN 11/22/20 [History] oxyCODONE HCl/Acetaminophen [Endocet 10-325 mg Tablet] 1 each PO Q6H PRN 12/19/20 [History] Acetaminophen [Tylenol] 650 mg PO Q4HR PRN 12/28/20 [History] Past Medical History - Past Health History Medical/Surgical History: Denies Medical/Surgical History HEENT History: Reports: None Cardiovascular History: Reports: None Respiratory History: Reports: None Gastrointestinal History: Reports: Cholelithiasis, Gastritis, GERD Other Gastrointestinal History: gallbladder pain Genitourinary History: Reports: Renal Calculus, Other (See Below) 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 Hematologic History: Reports: None Immunologic History: Reports: None Oncologic (Cancer) History: Reports: None Dermatologic History: Reports: None - Infectious Disease History Infectious Disease History: Reports: Chicken Pox, Novel Coronavirus - Past Surgical History Head Surgeries/Procedures: Reports: None HEENT Surgical History: Reports: None Cardiovascular Surgical History: Reports: None GI Surgical History: Reports: Appendectomy, Cholecystectomy Male Surgical History: Reports: Circumcision Other Male Surgeries/Procedures: Has had kidney biopsy Musculoskeletal Surgical History: Reports: Other (See Below) Other Musculoskeletal Surgeries/Procedures:: left arm Social & Family History - Family History Family Medical History: No Pertinent Family History - Tobacco Use Tobacco Use Status *Q: Never Tobacco User - Caffeine Use Caffeine Use: Reports: Coffee, Soda Caffeine Use Comment: 32 oz daily - Recreational Drug Use Recreational Drug Use: No - Living Situation & Occupation Living situation: Reports: Single, Alone Occupation: Employed ED ROS GENERAL - Review of Systems Review Of Systems: Comprehensive ROS is negative, except as noted in HPI. ED EXAM, RENAL/ - Physical Exam Exam: See Below Exam Limited By: No Limitations General Appearance: Alert, WD/WN, Moderate Distress Eye Exam: Bilateral Eye: EOMI, Normal Inspection, PERRL Ears: Normal External Exam, Normal Canal, Hearing Grossly Normal, Normal TMs Nose: Normal Inspection, Normal Mucosa, No Blood Throat/Mouth: Normal Inspection, Normal Lips, Normal Teeth, Normal Gums, Normal Oropharynx, Normal Voice, No Airway Compromise Head: Atraumatic, Normocephalic Neck: Normal Inspection, Supple, Non-Tender, Full Range of Motion Respiratory/Chest: No Respiratory Distress, Lungs Clear, Normal Breath Sounds, No Accessory Muscle Use, Chest Non-Tender Cardiovascular: Normal Peripheral Pulses, Regular Rate, Rhythm, No Edema, No Gallop, No JVD, No Murmur, No Rub GI/Abdominal: Tender (Male) Exam: Deferred Back Exam: CVA Tenderness (L), CVA Tenderness (R) Extremities: Normal Inspection, Normal Range of Motion, Non-Tender, Normal Capillary Refill, No Pedal Edema Neurological: Alert, Oriented, CN II-XII Intact, Normal Cognition, Normal Gait, Normal Reflexes, No Motor/Sensory Deficits Psychiatric: Normal Affect, Normal Mood Skin Exam: Warm, Dry, Intact, Normal Color, No Rash Lymphatic: No Adenopathy Course - Vital Signs Last Recorded V/S: Last Vital Signs Temp 35.9 C L 12/28/20 22:15 Pulse 64 12/28/20 22:15 Resp 20 12/28/20 22:15 BP 140/66 12/28/20 22:15 Pulse Ox 98 12/28/20 22:15 - Orders/Labs/Meds Orders: Active Orders 24 hr Category Date Time Status UA W/MICROSCOPIC [URIN] Urgent Lab 12/28/20 22:30 Results HYDROmorphone [Dilaudid] Med 12/28/20 22:59 Once 2 mg IM ONETIME ONE Labs: Laboratory Tests 12/28/20 12/28/20 12/28/20 Range/Units 22:24 22:24 22:24 WBC 9.9 (5.0-10.0) 10^3/uL RBC 5.08 (4.6-6.2) 10^6/uL Hgb 14.8 (14.0-18.0) g/dL Hct 43.6 (40.0-54.0) % MCV 85.8 (80-100) fL MCH 29.1 (27.0-34.0) pg MCHC 33.9 (33.0-35.0) g/dL Plt Count 301 (150-450) 10^3/uL Neut % (Auto) 58.7 (42.2-75.2) % Lymph % (Auto) 31.3 (20.5-50.1) % [place] % (Auto) 6.8 (2-8) % Eos % (Auto) 2.9 (1.0-3.0) % Baso % (Auto) 0.3 (0.0-1.0) % Sodium 140 (136-145) mmol/L Potassium 3.9 (3.5-5.1) mmol/L Chloride 105 (98-107) mmol/L Carbon Dioxide 28 (21-32) mmol/L Anion Gap 10.9 (7-13) mEq/L BUN 12 (7-18) mg/dL Creatinine 1.01 (0.70-1.30) mg/dL Est Cr Clr Drug Dosing 118.45 mL/min Estimated GFR (MDRD) > 60 BUN/Creatinine Ratio 11.9 (No establ ref range) Glucose 91 (70-99) mg/dL Calcium 8.2 L (8.5-10.1) mg/dL Total Bilirubin 0.6 (0.2-1.0) mg/dL AST 16 (15-37) U/L ALT 35 (16-63) U/L Alkaline Phosphatase 81 (46-116) U/L Total Protein 6.9 (6.4-8.2) g/dL Albumin 3.7 (3.4-5.0) g/dL Globulin 3.2 Albumin/Globulin Ratio 1.2 Urine Color (YELLOW) Urine Appearance (CLEAR) Urine pH (5.0-9.0) Ur Specific [place] (1.005-1.030) Urine Protein (NEGATIVE) Urine Glucose (UA) (NEGATIVE) Urine Ketones (NEGATIVE) Urine Occult Blood (NEGATIVE) Urine Nitrite (NEGATIVE) Urine Bilirubin (NEGATIVE) Urine Urobilinogen (0.2-1.0) mg/dL Ur Leukocyte Esterase (NEGATIVE) Urine Opiates Screen (NEGATIVE) Ur Oxycodone Screen (NEGATIVE) Urine Methadone Screen (NEGATIVE) Acetaminophen 0 L (10-30 (Therapeutic)) ug/mL Ur Barbiturates Screen (NEGATIVE) U Tricyclic Antidepress (NEGATIVE) Ur Phencyclidine Scrn (NEGATIVE) Ur Amphetamine Screen (NEGATIVE) U Methamphetamines Scrn (NEGATIVE) Urine MDMA Screen (NEGATIVE) U Benzodiazepines Scrn (NEGATIVE) Urine Cocaine Screen (NEGATIVE) U Marijuana (THC) Screen (NEGATIVE) 12/28/20 12/28/20 Range/Units 22:30 22:30 WBC (5.0-10.0) 10^3/uL RBC (4.6-6.2) 10^6/uL Hgb (14.0-18.0) g/dL Hct (40.0-54.0) % MCV (80-100) fL MCH (27.0-34.0) pg MCHC (33.0-35.0) g/dL Plt Count (150-450) 10^3/uL Neut % (Auto) (42.2-75.2) % Lymph % (Auto) (20.5-50.1) % [place] % (Auto) (2-8) % Eos % (Auto) (1.0-3.0) % Baso % (Auto) (0.0-1.0) % Sodium (136-145) mmol/L Potassium (3.5-5.1) mmol/L Chloride (98-107) mmol/L Carbon Dioxide (21-32) mmol/L Anion Gap (7-13) mEq/L BUN (7-18) mg/dL Creatinine (0.70-1.30) mg/dL Est Cr Clr Drug Dosing mL/min Estimated GFR (MDRD) BUN/Creatinine Ratio (No establ ref range) Glucose (70-99) mg/dL Calcium (8.5-10.1) mg/dL Total Bilirubin (0.2-1.0) mg/dL AST (15-37) U/L ALT (16-63) U/L Alkaline Phosphatase (46-116) U/L Total Protein (6.4-8.2) g/dL Albumin (3.4-5.0) g/dL Globulin Albumin/Globulin Ratio Urine Color Yellow (YELLOW) Urine Appearance Slightly cloudy (CLEAR) Urine pH 6.0 (5.0-9.0) Ur Specific [place] >= 1.030 (1.005-1.030) Urine Protein Trace H (NEGATIVE) Urine Glucose (UA) Negative (NEGATIVE) Urine Ketones Negative (NEGATIVE) Urine Occult Blood Small H (NEGATIVE) Urine Nitrite Negative (NEGATIVE) Urine Bilirubin Negative (NEGATIVE) Urine Urobilinogen 0.2 (0.2-1.0) mg/dL Ur Leukocyte Esterase Negative (NEGATIVE) Urine Opiates Screen Negative (NEGATIVE) Ur Oxycodone Screen Positive H (NEGATIVE) Urine Methadone Screen Negative (NEGATIVE) Acetaminophen (10-30 (Therapeutic)) ug/mL Ur Barbiturates Screen Negative (NEGATIVE) U Tricyclic Antidepress Negative (NEGATIVE) Ur Phencyclidine Scrn Negative (NEGATIVE) Ur Amphetamine Screen Negative (NEGATIVE) U Methamphetamines Scrn Negative (NEGATIVE) Urine MDMA Screen Negative (NEGATIVE) U Benzodiazepines Scrn Negative (NEGATIVE) Urine Cocaine Screen Negative (NEGATIVE) U Marijuana (THC) Screen Positive H (NEGATIVE) Departure - Departure Time of Disposition: 23:00 Disposition: Home, Self-Care 01 Condition: Fair Clinical Impression: Loin pain hematuria syndrome - Discharge Information *PRESCRIPTION DRUG MONITORING PROGRAM REVIEWED*: Not Applicable Forms: ED Department Discharge Care Plan Goals: The patient was advised of the examination and lab results during the visit. The patient was advised that he needs to continue to visit with his primary care facility for treatment as is pain is of chronic nature. The patient should continue to take his medications as prescribed. If the patient has any additional symptoms or further concerns, the patient should either return to the emergency department or visit his primary care facility. Sepsis Event Note (ED) - Evaluation Sepsis Screening Result: No Definite Risk - Focused Exam Vital Signs: Vital Signs Temp Pulse Resp BP Pulse Ox 12/28/20 22:15 35.9 C L 64 20 140/66 98 - My Orders Last 24 Hours: My Active Orders 12/28/20 22:30 UA W/MICROSCOPIC [URIN] Urgent 12/28/20 22:59 HYDROmorphone [Dilaudid] 2 mg IM ONETIME ONE - Assessment/Plan Last 24 Hours: My Active Orders 12/28/20 22:30 UA W/MICROSCOPIC [URIN] Urgent 12/28/20 22:59 HYDROmorphone [Dilaudid] 2 mg IM ONETIME ONE
[2020-12-28 22:49] LABS: ANION GAP 10.9 mEq/L (7-13); CHLORIDE,CL 105 mmol/L (98-107); SODIUM,NA 140 mmol/L (136-145)
[2020-12-28] MEDS ORDERED: HYDROmorphone 1 MG/ML Syringe IM ONE (22:59)
== END 2020-12-28 23:13 | disposition home or self-care (01) ==
LOC: DL.ED 22:17
DX: M54.5 Low back pain (principal); R31.9 Hematuria, unspecified; E66.9 Obesity, unspecified; Z88.0 Allergy status to penicillin; Z91.030 Bee allergy status; Z88.5 Allergy status to narcotic agent; Z88.6 Allergy status to analgesic agent; Z88.8 Allergy status to other drugs, medicaments and biological substances; Z79.899 Other long term (current) drug therapy; Z68.42 Body mass index [BMI] 45.0-49.9, adult
CPT/HCPCS: 36415; 80053; 80143; 80305-QW; 81001; 85025; 96372; 99283; 99284; J1170

== ENCOUNTER 2020-12-31 08:48 | Emergency (ER) | payer MEDICAID ==
--- NOTE | 2020-12-31 08:54 | EDM.PDOC ---
ED HPI GENERAL MEDICAL PROBLEM - General Chief Complaint: Flank Pain Stated Complaint: KIDNEY Time Seen by Provider: 12/31/20 08:54 Source of Information: Reports: Patient, Old Records, RN, RN Notes Reviewed History Limitations: Reports: No Limitations - History of Present Illness INITIAL COMMENTS - FREE TEXT/NARRATIVE: Patient presents to ER from home by POV with c/o left flank and left lower abdominal pain. The patient reports his symptoms have been flared up and on going for the past week, but he has had chronic pain of similar nature with frequent flare ups for over two years. Hx of HSP and Loin Pain Hematuria Syndrome. The patient reports he has been following the directions given by his primary care facility. The patient reports he has an appointment with carmina hernandez later this month. The patient has signed into the ED several times this past few weeks for pain control. Today pt also states he has had nausea, vomiting, and diarrhea for the past two days, and has a very dry mouth. Pt also states the rash with weeping ulcerations around his penis have returned. Pt states he was started on Metformin recently and isn't sure if the N/V/D is a side effect of the medication or the GI "bug" that is going around. Duration: Chronic, Recurring Location: Reports: Abdomen, Other (/Flank) Quality: Reports: Same as Previous Episode Severity: Severe Improves with: Reports: None Worsens with: Reports: None Associated Symptoms: Reports: No Other Symptoms Abdominal Pain Score (Numeric/FACES): 9 - Related Data Allergies Allergy/AdvReac Type Severity Reaction Status Date / Time amoxicillin [Amoxicillin] Allergy Rash Verified 12/31/20 09:08 bee venom protein (honey bee) Allergy Cannot Verified 12/31/20 09:08 Remember butorphanol [From Stadol] Allergy Hallucinati Verified 12/31/20 09:08 ons haloperidol [From Haldol] Allergy Hallucinati Verified 12/31/20 09:08 ons ketorolac tromethamine Allergy Rash Verified 12/31/20 09:08 [From Toradol] metoclopramide [From Reglan] Allergy Agitation Verified 12/31/20 09:08 promethazine HCl Allergy Hallucinati Verified 12/31/20 09:08 [From Phenergan] ons tramadol HCl [From Ultram] Allergy Rash Verified 12/31/20 09:08 Home Meds: Home Meds Tamsulosin HCl [Flomax] 0.4 mg PO BID 05/30/20 [History] Ondansetron [Zofran] 8 mg PO TID PRN 06/21/20 [History] Docusate Sodium [Colace] 100 mg PO BID PRN 10/21/20 [History] Losartan [Cozaar] 25 mg PO BEDTIME 10/24/20 [History] Naproxen 250 mg PO Q8HR PRN 11/22/20 [History] oxyCODONE HCl/Acetaminophen [Endocet 10-325 mg Tablet] 1 each PO Q6H PRN 12/19/20 [History] Acetaminophen [Tylenol] 650 mg PO Q4HR PRN 12/28/20 [History] Past Medical History - Past Health History Medical/Surgical History: Denies Medical/Surgical History HEENT History: Reports: None Cardiovascular History: Reports: None Respiratory History: Reports: None Gastrointestinal History: Reports: Cholelithiasis, Gastritis, GERD Other Gastrointestinal History: gallbladder pain Genitourinary History: Reports: Renal Calculus, Other (See Below) 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 Hematologic History: Reports: None Immunologic History: Reports: None Oncologic (Cancer) History: Reports: None Dermatologic History: Reports: None - Infectious Disease History Infectious Disease History: Reports: Chicken Pox, Novel Coronavirus - Past Surgical History Head Surgeries/Procedures: Reports: None HEENT Surgical History: Reports: None Cardiovascular Surgical History: Reports: None GI Surgical History: Reports: Appendectomy, Cholecystectomy Male Surgical History: Reports: Circumcision Other Male Surgeries/Procedures: Has had kidney biopsy Musculoskeletal Surgical History: Reports: Other (See Below) Other Musculoskeletal Surgeries/Procedures:: left arm Social & Family History - Family History Family Medical History: No Pertinent Family History - Caffeine Use Caffeine Use: Reports: Coffee, Soda Caffeine Use Comment: 32 oz daily - Living Situation & Occupation Living situation: Reports: Single, Alone Occupation: Employed ED ROS GENERAL - Review of Systems Review Of Systems: Comprehensive ROS is negative, except as noted in HPI. ED EXAM, RENAL/ - Physical Exam Exam: See Below Exam Limited By: No Limitations General Appearance: Alert, No Apparent Distress, Obese, Other (Uncomfortable, but nontoxic appearing) Eye Exam: Bilateral Eye: Normal Inspection (No scleral icterus) Nose: Normal Inspection Throat/Mouth: Normal Voice, No Airway Compromise, Other (Dry oral mucosa) Head: Atraumatic, Normocephalic Neck: Normal Inspection Respiratory/Chest: No Respiratory Distress, Lungs Clear, Normal Breath Sounds, No Accessory Muscle Use, Chest Non-Tender Cardiovascular: Regular Rate, Rhythm GI/Abdominal: Normal Bowel Sounds, Soft, No Organomegaly, No Distention, Tender (Generalized abdominal tenderness). No: Guarding, Rigid, Rebound (Male) Exam: Circumcised, Penile Lesions (Circumferential superficial ulceration at the distal penile shaft sparing the glans with weeping and xiao crusting, no vesicles, no sylvia/aphthous ulcers). No: Scrotal Swelling, S crotum Tenderness (L), Scrotum Tenderness (R), Testicular Mass, Testicular Tenderness (L), Testicular Tenderness (R), Urethral Discharge Extremities: Normal Inspection Neurological: Alert, Oriented, No Motor/Sensory Deficits Psychiatric: Depressed Mood, Flat Affect Skin Exam: Warm, Dry, Intact, Normal Color, No Rash. No: Ecchymosis, Jaundice, Petechiae Course - Vital Signs Last Recorded V/S: Last Vital Signs Temp 98 F 12/31/20 09:05 Pulse 65 12/31/20 09:05 Resp 14 12/31/20 09:05 BP 121/83 12/31/20 09:05 Pulse Ox 100 12/31/20 09:05 - Orders/Labs/Meds Orders: Active Orders 24 hr Category Date Time Status Peripheral IV Care [RC] . DIRECTED Care 12/31/20 09:10 Active STD PANEL 3 [REF] Routine Lab 12/31/20 09:35 Received Sodium Chloride 0.9% [Saline Flush] Med 12/31/20 09:10 Active 10 ml FLUSH ASDIRECTED PRN Peripheral IV Insertion Adult [OM.PC] Stat Oth 12/31/20 09:10 Ordered Medication Orders Sodium Chloride (Sodium Chloride 0.9% 10 Ml Syringe) 10 ml FLUSH ASDIRECTED PRN PRN Reason: Keep Vein Open Last Admin: 12/31/20 10:50 Dose: 10 ml Documented by: FABILAU Labs: Laboratory Tests 12/31/20 12/31/20 12/31/20 Range/Units 09:20 09:20 09:35 WBC 8.4 (5.0-10.0) 10^3/uL RBC 5.30 (4.6-6.2) 10^6/uL Hgb 15.5 (14.0-18.0) g/dL Hct 45.6 (40.0-54.0) % MCV 86.0 (80-100) fL MCH 29.2 (27.0-34.0) pg MCHC 34.0 (33.0-35.0) g/dL Plt Count 310 (150-450) 10^3/uL Neut % (Auto) 63.1 (42.2-75.2) % Lymph % (Auto) 26.0 (20.5-50.1) % [place] % (Auto) 7.4 (2-8) % Eos % (Auto) 3.3 H (1.0-3.0) % Baso % (Auto) 0.2 (0.0-1.0) % Sodium 141 (136-145) mmol/L Potassium 4.1 (3.5-5.1) mmol/L Chloride 105 (98-107) mmol/L Carbon Dioxide 25 (21-32) mmol/L Anion Gap 15.1 H (7-13) mEq/L BUN 14 (7-18) mg/dL Creatinine 0.94 (0.70-1.30) mg/dL Est Cr Clr Drug Dosing 112.18 mL/min Estimated GFR (MDRD) > 60 BUN/Creatinine Ratio 14.9 (No establ ref range) Glucose 91 (70-99) mg/dL Calcium 8.1 L (8.5-10.1) mg/dL Total Bilirubin 0.7 (0.2-1.0) mg/dL AST 24 (15-37) U/L ALT 39 (16-63) U/L Alkaline Phosphatase 81 (46-116) U/L Total Protein 7.3 (6.4-8.2) g/dL Albumin 3.9 (3.4-5.0) g/dL Globulin 3.4 Albumin/Globulin Ratio 1.1 Amylase 22 L (25-115) U/L Lipase 38 L (73-393) U/L Urine Color Dark yellow (YELLOW) Urine Appearance Clear (CLEAR) Urine pH 5.5 (5.0-9.0) Ur Specific [place] >= 1.030 (1.005-1.030) Urine Protein Negative (NEGATIVE) Urine Glucose (UA) Negative (NEGATIVE) Urine Ketones Negative (NEGATIVE) Urine Occult Blood Trace-intact H (NEGATIVE) Urine Nitrite Negative (NEGATIVE) Urine Bilirubin Negative (NEGATIVE) Urine Urobilinogen 0.2 (0.2-1.0) mg/dL Ur Leukocyte Esterase Negative (NEGATIVE) Urine RBC 0-5 /HPF Urine WBC 0-5 (0-5/HPF) /HPF Ur Epithelial Cells Few (NOT SEEN) /HPF Urine Bacteria Rare (0-FEW/HPF) /HPF Urine Mucus Few H (NOT SEEN) /LPF Urine Opiates Screen (NEGATIVE) Ur Oxycodone Screen (NEGATIVE) Urine Methadone Screen (NEGATIVE) Ur Barbiturates Screen (NEGATIVE) U Tricyclic Antidepress (NEGATIVE) Ur Phencyclidine Scrn (NEGATIVE) Ur Amphetamine Screen (NEGATIVE) U Methamphetamines Scrn (NEGATIVE) Urine MDMA Screen (NEGATIVE) U Benzodiazepines Scrn (NEGATIVE) Urine Cocaine Screen (NEGATIVE) U Marijuana (THC) Screen (NEGATIVE) 12/31/20 Range/Units 09:35 WBC (5.0-10.0) 10^3/uL RBC (4.6-6.2) 10^6/uL Hgb (14.0-18.0) g/dL Hct (40.0-54.0) % MCV (80-100) fL MCH (27.0-34.0) pg MCHC (33.0-35.0) g/dL Plt Count (150-450) 10^3/uL Neut % (Auto) (42.2-75.2) % Lymph % (Auto) (20.5-50.1) % [place] % (Auto) (2-8) % Eos % (Auto) (1.0-3.0) % Baso % (Auto) (0.0-1.0) % Sodium (136-145) mmol/L Potassium (3.5-5.1) mmol/L Chloride (98-107) mmol/L Carbon Dioxide (21-32) mmol/L Anion Gap (7-13) mEq/L BUN (7-18) mg/dL Creatinine (0.70-1.30) mg/dL Est Cr Clr Drug Dosing mL/min Estimated GFR (MDRD) BUN/Creatinine Ratio (No establ ref range) Glucose (70-99) mg/dL Calcium (8.5-10.1) mg/dL Total Bilirubin (0.2-1.0) mg/dL AST (15-37) U/L ALT (16-63) U/L Alkaline Phosphatase (46-116) U/L Total Protein (6.4-8.2) g/dL Albumin (3.4-5.0) g/dL Globulin Albumin/Globulin Ratio Amylase (25-115) U/L Lipase (73-393) U/L Urine Color (YELLOW) Urine Appearance (CLEAR) Urine pH (5.0-9.0) Ur Specific [place] (1.005-1.030) Urine Protein (NEGATIVE) Urine Glucose (UA) (NEGATIVE) Urine Ketones (NEGATIVE) Urine Occult Blood (NEGATIVE) Urine Nitrite (NEGATIVE) Urine Bilirubin (NEGATIVE) Urine Urobilinogen (0.2-1.0) mg/dL Ur Leukocyte Esterase (NEGATIVE) Urine RBC /HPF Urine WBC (0-5/HPF) /HPF Ur Epithelial Cells (NOT SEEN) /HPF Urine Bacteria (0-FEW/HPF) /HPF Urine Mucus (NOT SEEN) /LPF Urine Opiates Screen Negative (NEGATIVE) Ur Oxycodone Screen Positive H (NEGATIVE) Urine Methadone Screen Negative (NEGATIVE) Ur Barbiturates Screen Negative (NEGATIVE) U Tricyclic Antidepress Negative (NEGATIVE) Ur Phencyclidine Scrn Negative (NEGATIVE) Ur Amphetamine Screen Negative (NEGATIVE) U Methamphetamines Scrn Negative (NEGATIVE) Urine MDMA Screen Negative (NEGATIVE) U Benzodiazepines Scrn Negative (NEGATIVE) Urine Cocaine Screen Negative (NEGATIVE) U Marijuana (THC) Screen Positive H (NEGATIVE) Meds: Medications Generic Name Dose Route Start Last Admin Trade Name Freq PRN Reason Stop Dose Admin Sodium Chloride 10 ml 12/31/20 09:10 12/31/20 10:50 Sodium Chloride 0.9% 10 Ml Syringe FLUSH 10 ml ASDIRECTED PRN Administration Keep Vein Open Discontinued Medications Generic Name Dose Route Start Last Admin Trade Name Freq PRN Reason Stop Dose Admin Hydromorphone HCl 1 mg 12/31/20 09:11 12/31/20 09:29 Hydromorphone 1 Mg/Ml Syringe IVPUSH 12/31/20 09:12 1 mg ONETIME ONE Administration Hydromorphone HCl 1 mg 12/31/20 10:01 12/31/20 10:19 Hydromorphone 1 Mg/Ml Syringe IVPUSH 12/31/20 10:02 1 mg ONETIME ONE Administration Hydromorphone HCl Confirm 12/31/20 10:21 12/31/20 10:24 Hydromorphone 1 Mg/Ml Syringe Administered 12/31/20 10:22 Not Given Dose 1 mg .ROUTE .STK-MED ONE Sodium Chloride 1,000 mls @ 999 mls/hr 12/31/20 09:11 12/31/20 09:28 Normal Saline IV 12/31/20 10:11 999 mls/hr .BOLUS ONE Administration Fluconazole/Sodium Chloride 100 mls @ 100 mls/hr 12/31/20 09:17 12/31/20 10:50 200 mg/ Premix IV 12/31/20 10:16 Infused ONETIME ONE Infusion Mupirocin 15 gm 12/31/20 09:18 12/31/20 09:51 Mupirocin Oint 22 Gm Tube TOP 12/31/20 09:19 1 mg ONETIME ONE Administration Ondansetron HCl 4 mg 12/31/20 09:11 12/31/20 09:28 Ondansetron 4 Mg/2 Ml Sdv IV 12/31/20 09:12 4 mg ONETIME ONE Administration Ondansetron HCl 4 mg 12/31/20 10:02 12/31/20 10:17 Ondansetron 4 Mg/2 Ml Sdv IV 12/31/20 10:03 4 mg ONETIME ONE Administration Departure - Departure Time of Disposition: 11:09 Disposition: Home, Self-Care 01 Condition: Fair Clinical Impression: Loin pain hematuria syndrome, History of Henoch-Schonlein purpura, Gastroenteritis, Infection of penis - Discharge Information *PRESCRIPTION DRUG MONITORING PROGRAM REVIEWED*: No *COPY OF PRESCRIPTION DRUG MONITORING REPORT IN PATIENT NICO: No Instructions: Flank Pain, Adult, [id number], Food Choices to Help Relieve Diarrhea, Adult Forms: ED Department Discharge Additional Instructions: Rx: Diflucan 200mg Rx: Bactroban Ointment 2% Drink plenty of water, Pedialyte, or Gatorade. Follow in clinic next week for recheck. Sepsis Event Note (ED) - Focused Exam Vital Signs: Vital Signs Temp Pulse Resp BP Pulse Ox 12/31/20 09:05 98 F 65 14 121/83 100 - My Orders Last 24 Hours: My Active Orders 12/31/20 09:10 Peripheral IV Care [RC] . DIRECTED Sodium Chloride 0.9% [Saline Flush] 10 ml FLUSH ASDIRECTED PRN Peripheral IV Insertion Adult [OM.PC] Stat 12/31/20 09:35 STD PANEL 3 [REF] Routine - Assessment/Plan Last 24 Hours: My Active Orders 12/31/20 09:10 Peripheral IV Care [RC] . DIRECTED Sodium Chloride 0.9% [Saline Flush] 10 ml FLUSH ASDIRECTED PRN Peripheral IV Insertion Adult [OM.PC] Stat 12/31/20 09:35 STD PANEL 3 [REF] Routine
[2020-12-31 09:07] VITALS: BP 121/83; PULSE 65
[2020-12-31] MEDS ORDERED: Sodium Chloride 0.9% 10 ML Syringe FLUSH PRN (09:10)
[2020-12-31] MEDS ORDERED: Sodium Chloride 0.9% 1,000 ML IV ONE (09:11)
[2020-12-31] MEDS ORDERED: HYDROmorphone 1 MG/ML Syringe IVPUSH ONE ×2 (09:11→10:01)
[2020-12-31] MEDS ORDERED: Ondansetron 4 MG/2 ML SDV IV ONE ×2 (09:11→10:02)
[2020-12-31] MEDS ORDERED: Fluconazole/Normal Saline 200 MG in Premix Bag 1 BAG IV ONE (09:17)
[2020-12-31] MEDS ORDERED: Mupirocin Oint 22 GM Tube TOP ONE (09:18)
[2020-12-31 09:46] LABS: ANION GAP 15.1 mEq/L (7-13); CHLORIDE,CL 105 mmol/L (98-107); SODIUM,NA 141 mmol/L (136-145)
[2020-12-31] MEDS ORDERED: HYDROmorphone 1 MG/ML Syringe ONE (10:21)
[2021-01-05 12:42] LABS: C.TRACHOMATIS BY TMA Negative (Negative); N.GONORRHOEAE BY TMA Negative (Negative)
== END 2020-12-31 11:22 | disposition home or self-care (01) ==
LOC: DL.ED 08:48
DX: K52.9 Noninfective gastroenteritis and colitis, unspecified (principal); N39.8 Other specified disorders of urinary system; N48.29 Other inflammatory disorders of penis; E66.9 Obesity, unspecified; Z68.43 Body mass index [BMI] 50.0-59.9, adult; Z88.0 Allergy status to penicillin; Z91.030 Bee allergy status; Z88.6 Allergy status to analgesic agent; Z88.5 Allergy status to narcotic agent; Z88.8 Allergy status to other drugs, medicaments and biological substances; Z79.899 Other long term (current) drug therapy
CPT/HCPCS: 36415; 80053; 80305-QW; 81001; 82150; 83690; 85025; 87491; 87563; 87591; 96365; 96375; 96376; 99284; 99284-25; A9270-GY; J1170; J1450; J2405; J7030

== ENCOUNTER 2021-01-01 18:37 | Emergency (ER) | payer MEDICAID ==
[2021-01-01 19:22] VITALS: BP 141/78; PULSE 70
[2021-01-01] MEDS ORDERED: HYDROmorphone 1 MG/ML Syringe IM ONE (19:43)
[2021-01-01] MEDS ORDERED: Ondansetron 4 MG Tab.DIS PO ONE (19:44)
[2021-01-01] MEDS ORDERED: Fluconazole 100 MG Tab PO ONE (19:46)
--- NOTE | 2021-01-01 20:12 | EDM.PDOC ---
ED HPI GENERAL MEDICAL PROBLEM - General Chief Complaint: Genitourinary Problem Stated Complaint: KIDNEY Time Seen by Provider: 01/01/21 19:30 Source of Information: Reports: Patient, Old Records, RN, RN Notes Reviewed History Limitations: Reports: No Limitations - History of Present Illness INITIAL COMMENTS - FREE TEXT/NARRATIVE: Elvin is a 30 y/o male with longstanding history of Loin Pain Hematuria syndrome flairs following HSP who presents to the ED via personal vehicle for complaints of bilateral flank pain, frequent urination, and penile lesions. The patient was examined at this facility yesterday for similar symptoms, as well as nausea, vomiting, and diarrhea. He was subsequently treated with analgesics, IVF, antiemetics, and Diflucan. He reports the vomiting and diarrhea have since stopped, but he continues to experience pain to his bilateral flanks that is intractable to his current pain regimen. Additionally, he has been utilizing the cream provided to him for his penile lesions but did not obtain his prescription as he was "...running all over the place for errands." He expresses concern over missing doses of this medication as he feels his lesions are worsening. He denies fever, shaking chills, palpitations, abdominal pain, melena, or hematochezia. He does attest to general malaise, dysuria, and hematuria. He reports he has taken his previously prescribed Naproxen and Oxycodone with no reduction to the flank pain or dysuria. Flank Pain Score (Numeric/FACES): 10 - Related Data Allergies Allergy/AdvReac Type Severity Reaction Status Date / Time amoxicillin [Amoxicillin] Allergy Rash Verified 12/31/20 09:08 bee venom protein (honey bee) Allergy Cannot Verified 12/31/20 09:08 Remember butorphanol [From Stadol] Allergy Hallucinati Verified 12/31/20 09:08 ons haloperidol [From Haldol] Allergy Hallucinati Verified 12/31/20 09:08 ons ketorolac tromethamine Allergy Rash Verified 12/31/20 09:08 [From Toradol] metoclopramide [From Reglan] Allergy Agitation Verified 12/31/20 09:08 promethazine HCl Allergy Hallucinati Verified 12/31/20 09:08 [From Phenergan] ons tramadol HCl [From Ultram] Allergy Rash Verified 12/31/20 09:08 Home Meds: Home Meds Tamsulosin HCl [Flomax] 0.4 mg PO BID 05/30/20 [History] Ondansetron [Zofran] 8 mg PO TID PRN 06/21/20 [History] Docusate Sodium [Colace] 100 mg PO BID PRN 10/21/20 [History] Losartan [Cozaar] 25 mg PO BEDTIME 10/24/20 [History] Naproxen 250 mg PO Q8HR PRN 11/22/20 [History] oxyCODONE HCl/Acetaminophen [Endocet 10-325 mg Tablet] 1 each PO Q6H PRN 12/19/20 [History] Acetaminophen [Tylenol] 650 mg PO Q4HR PRN 12/28/20 [History] Past Medical History - Past Health History Medical/Surgical History: Denies Medical/Surgical History HEENT History: Reports: None Cardiovascular History: Reports: None Respiratory History: Reports: None Gastrointestinal History: Reports: Cholelithiasis, Gastritis, GERD Other Gastrointestinal History: gallbladder pain Genitourinary History: Reports: Renal Calculus, Other (See Below) 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 Hematologic History: Reports: None Immunologic History: Reports: None Oncologic (Cancer) History: Reports: None Dermatologic History: Reports: None - Infectious Disease History Infectious Disease History: Reports: Chicken Pox, Novel Coronavirus - Past Surgical History Head Surgeries/Procedures: Reports: None HEENT Surgical History: Reports: None Cardiovascular Surgical History: Reports: None GI Surgical History: Reports: Appendectomy, Cholecystectomy Male Surgical History: Reports: Circumcision Other Male Surgeries/Procedures: Has had kidney biopsy Musculoskeletal Surgical History: Reports: Other (See Below) Other Musculoskeletal Surgeries/Procedures:: left arm Social & Family History - Family History Family Medical History: No Pertinent Family History - Tobacco Use Tobacco Use Status *Q: Never Tobacco User - Caffeine Use Caffeine Use: Reports: Coffee Caffeine Use Comment: 32 oz daily - Living Situation & Occupation Living situation: Reports: Single, Alone Occupation: Employed ED ROS GENERAL - Review of Systems Review Of Systems: Comprehensive ROS is negative, except as noted in HPI. ED EXAM, RENAL/ - Physical Exam Exam: See Below Exam Limited By: No Limitations General Appearance: Alert, No Apparent Distress, Obese Eye Exam: Bilateral Eye: EOMI, Normal Inspection, PERRL (3mm) Throat/Mouth: Normal Inspection, Normal Oropharynx, Normal Voice, No Airway Compromise Head: Atraumatic, Normocephalic Respiratory/Chest: No Respiratory Distress, Lungs Clear, Normal Breath Sounds, No Accessory Muscle Use, Chest Non-Tender Cardiovascular: Normal Peripheral Pulses, Regular Rate, Rhythm, No Edema, No Gallop, No JVD, No Murmur, No Rub GI/Abdominal: Soft, No Distention, No Abnormal Bruit, No Mass, Pelvis Stable, Tender (Suprapubic tenderness), Abnormal Bowel Sounds (Hypoactive bowel sounds). No: Guarding, Rigid, Rebound (Male) Exam: Circumcised, Penile Lesions (Diffuse to glans and distal aspect of shaft ), Suprapubic Fullness. No: Hernia Rectal (Males) Exam: Deferred Back Exam: Full Range of Motion, CVA Tenderness (L), CVA Tenderness (R) Extremities: Normal Inspection, Normal Range of Motion, Non-Tender, Normal Capillary Refill, No Pedal Edema Neurological: Alert, Oriented, CN II-XII Intact, Normal Cognition, Normal Gait, No Motor/Sensory Deficits Psychiatric: Normal Affect, Normal Mood Skin Exam: Warm, Dry, Rash (See above) Course - Vital Signs Last Recorded V/S: Last Vital Signs Temp 97.6 F 01/01/21 19:17 Pulse 70 01/01/21 19:17 Resp 18 01/01/21 19:17 BP 141/78 H 01/01/21 19:17 Pulse Ox 100 01/01/21 19:17 - Orders/Labs/Meds Labs: Laboratory Tests 01/01/21 01/01/21 Range/Units 20:00 20:00 Urine Color Yellow (YELLOW) Urine Appearance Slightly cloudy (CLEAR) Urine pH 7.0 (5.0-9.0) Ur Specific [place] 1.025 (1.005-1.030) Urine Protein Negative (NEGATIVE) Urine Glucose (UA) Negative (NEGATIVE) Urine Ketones Negative (NEGATIVE) Urine Occult Blood Trace-intact H (NEGATIVE) Urine Nitrite Negative (NEGATIVE) Urine Bilirubin Negative (NEGATIVE) Urine Urobilinogen 0.2 (0.2-1.0) mg/dL Ur Leukocyte Esterase Negative (NEGATIVE) Urine RBC 5-10 H /HPF Urine WBC 0-5 (0-5/HPF) /HPF Ur Epithelial Cells Rare (NOT SEEN) /HPF Amorphous Sediment Moderate (NOT SEEN) /HPF Urine Bacteria Rare (0-FEW/HPF) /HPF Urine Mucus Few H (NOT SEEN) /LPF Urine Opiates Screen Negative (NEGATIVE) Ur Oxycodone Screen Positive H (NEGATIVE) Urine Methadone Screen Negative (NEGATIVE) Ur Barbiturates Screen Negative (NEGATIVE) U Tricyclic Antidepress Negative (NEGATIVE) Ur Phencyclidine Scrn Negative (NEGATIVE) Ur Amphetamine Screen Negative (NEGATIVE) U Methamphetamines Scrn Negative (NEGATIVE) Urine MDMA Screen Negative (NEGATIVE) U Benzodiazepines Scrn Negative (NEGATIVE) Urine Cocaine Screen Negative (NEGATIVE) U Marijuana (THC) Screen Positive H (NEGATIVE) Meds: Medications Discontinued Medications Generic Name Dose Route Start Last Admin Trade Name Freq PRN Reason Stop Dose Admin Fluconazole 200 mg 01/01/21 19:46 01/01/21 19:57 Fluconazole 100 Mg Tab PO 01/01/21 19:47 200 mg ONETIME ONE Administration Hydromorphone HCl 2 mg 01/01/21 19:43 01/01/21 19:54 Hydromorphone 1 Mg/Ml Syringe IM 01/01/21 19:44 2 mg ONETIME ONE Administration Ondansetron HCl 4 mg 01/01/21 19:44 01/01/21 19:54 Ondansetron 4 Mg Tab.Dis PO 01/01/21 19:45 4 mg ONETIME ONE Administration Departure - Departure Time of Disposition: 20:09 Disposition: Home, Self-Care 01 Condition: Good Clinical Impression: History of Henoch-Schonlein purpura, Bilateral flank pain, Loin pain hematuria syndrome, Infection of penis - Discharge Information *PRESCRIPTION DRUG MONITORING PROGRAM REVIEWED*: Not Applicable *COPY OF PRESCRIPTION DRUG MONITORING REPORT IN PATIENT NICO: Not Applicable Referrals: PCP,None [Primary Care Provider] - Forms: ED Department Discharge Additional Instructions: 1.) Obtain your previously prescribed Diflucan tomorrow at any pharmacy; [facility] is open from 12-4pm. 2.) Continue with previously prescribed cream to penile lesions. 3.) Drink plenty of water to stay hydrated. 4.) Avoid overexertion and activities that have caused you to have flairs of flank pain in the past. Sepsis Event Note (ED) - Evaluation Sepsis Screening Result: No Definite Risk - Focused Exam Vital Signs: Vital Signs Temp Pulse Resp BP Pulse Ox 01/01/21 19:17 97.6 F 70 18 141/78 H 100
== END 2021-01-01 20:17 | disposition home or self-care (01) ==
LOC: DL.ED 18:37
DX: N48.29 Other inflammatory disorders of penis (principal); R31.9 Hematuria, unspecified; Z88.6 Allergy status to analgesic agent; Z88.0 Allergy status to penicillin; Z91.030 Bee allergy status; Z88.5 Allergy status to narcotic agent; E66.9 Obesity, unspecified; Z68.42 Body mass index [BMI] 45.0-49.9, adult; Z87.2 Personal history of diseases of the skin and subcutaneous tissue
CPT/HCPCS: 80305-QW; 81001; 96372; 99283; 99284; A9270-GY; J1170

== ENCOUNTER 2021-01-02 10:04 | Emergency (ER) | payer MEDICAID ==
--- NOTE | 2021-01-02 10:12 | EDM.PDOC ---
ED HPI GENERAL MEDICAL PROBLEM - General Chief Complaint: Flank Pain Stated Complaint: KIDNEY Time Seen by Provider: 01/02/21 10:11 Source of Information: Reports: Patient, Old Records, RN, RN Notes Reviewed History Limitations: Reports: No Limitations - History of Present Illness INITIAL COMMENTS - FREE TEXT/NARRATIVE: Patient presents to ER from home by POV with c/o left flank and left lower abdominal pain. The patient reports his symptoms have been flared up and on going for the past week, but he has had chronic pain of similar nature with frequent flare ups for over two years. Hx of HSP and Loin Pain Hematuria Syndrome. The patient reports he has been following the directions given by his primary care facility. The patient reports he has an appointment with carmina hernandez later this month. The patient has signed into the ED several times this past few weeks for pain control. Duration: Chronic, Constant Location: Reports: Other (Left flank) Quality: Reports: Same as Previous Episode Severity: Severe Improves with: Reports: None Worsens with: Reports: None - Related Data Allergies Allergy/AdvReac Type Severity Reaction Status Date / Time amoxicillin [Amoxicillin] Allergy Rash Verified 12/31/20 09:08 bee venom protein (honey bee) Allergy Cannot Verified 12/31/20 09:08 Remember butorphanol [From Stadol] Allergy Hallucinati Verified 12/31/20 09:08 ons haloperidol [From Haldol] Allergy Hallucinati Verified 12/31/20 09:08 ons ketorolac tromethamine Allergy Rash Verified 12/31/20 09:08 [From Toradol] metoclopramide [From Reglan] Allergy Agitation Verified 12/31/20 09:08 promethazine HCl Allergy Hallucinati Verified 12/31/20 09:08 [From Phenergan] ons tramadol HCl [From Ultram] Allergy Rash Verified 12/31/20 09:08 Home Meds: Home Meds Tamsulosin HCl [Flomax] 0.4 mg PO BID 05/30/20 [History] Ondansetron [Zofran] 8 mg PO TID PRN 06/21/20 [History] Docusate Sodium [Colace] 100 mg PO BID PRN 10/21/20 [History] Losartan [Cozaar] 25 mg PO BEDTIME 10/24/20 [History] Naproxen 250 mg PO Q8HR PRN 11/22/20 [History] oxyCODONE HCl/Acetaminophen [Endocet 10-325 mg Tablet] 1 each PO Q6H PRN 12/19/20 [History] Acetaminophen [Tylenol] 650 mg PO Q4HR PRN 12/28/20 [History] Past Medical History - Past Health History Medical/Surgical History: Denies Medical/Surgical History HEENT History: Reports: None Cardiovascular History: Reports: None Respiratory History: Reports: None Gastrointestinal History: Reports: Cholelithiasis, Gastritis, GERD Other Gastrointestinal History: gallbladder pain Genitourinary History: Reports: Renal Calculus, Other (See Below) 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 Hematologic History: Reports: None Immunologic History: Reports: None Oncologic (Cancer) History: Reports: None Dermatologic History: Reports: None - Infectious Disease History Infectious Disease History: Reports: Chicken Pox, Novel Coronavirus - Past Surgical History Head Surgeries/Procedures: Reports: None HEENT Surgical History: Reports: None Cardiovascular Surgical History: Reports: None GI Surgical History: Reports: Appendectomy, Cholecystectomy Male Surgical History: Reports: Circumcision Other Male Surgeries/Procedures: Has had kidney biopsy Musculoskeletal Surgical History: Reports: Other (See Below) Other Musculoskeletal Surgeries/Procedures:: left arm Social & Family History - Family History Family Medical History: No Pertinent Family History - Caffeine Use Caffeine Use: Reports: Coffee Caffeine Use Comment: 32 oz daily - Living Situation & Occupation Living situation: Reports: Single, Alone Occupation: Employed ED ROS GENERAL - Review of Systems Review Of Systems: Comprehensive ROS is negative, except as noted in HPI. ED EXAM, RENAL/ - Physical Exam Exam: See Below Exam Limited By: No Limitations General Appearance: Alert, WD/WN, No Apparent Distress, Obese Throat/Mouth: Normal Lips, Normal Voice, No Airway Compromise Head: Atraumatic, Normocephalic Neck: Normal Inspection Respiratory/Chest: No Respiratory Distress, Lungs Clear Cardiovascular: Regular Rate, Rhythm GI/Abdominal: Normal Bowel Sounds, Soft, Tender (LUQ, LLQ) Back Exam: Full Range of Motion, CVA Tenderness (L). No: CVA Tenderness (R), Vertebral Tenderness Extremities: Normal Inspection Neurological: Alert, Oriented, No Motor/Sensory Deficits Psychiatric: Normal Mood Skin Exam: Warm, Dry, Intact, Normal Color, No Rash Course - Orders/Labs/Meds Meds: Medications Discontinued Medications Generic Name Dose Route Start Last Admin Trade Name Karthikeyanq PRN Reason Stop Dose Admin Fluconazole 100 mg 01/02/21 10:17 Fluconazole 100 Mg Tab PO 01/02/21 10:18 ONETIME ONE Hydromorphone HCl 2 mg 01/02/21 10:17 Hydromorphone 1 Mg/Ml Syringe IM 01/02/21 10:18 ONETIME ONE Departure - Departure Time of Disposition: 10:31 Disposition: Home, Self-Care 01 Condition: Good Clinical Impression: Loin pain hematuria syndrome, History of Henoch-Schonlein purpura - Discharge Information *PRESCRIPTION DRUG MONITORING PROGRAM REVIEWED*: No *COPY OF PRESCRIPTION DRUG MONITORING REPORT IN PATIENT NICO: No Instructions: Flank Pain, Adult, [id number] Forms: ED Department Discharge Additional Instructions: Rx: Diflucan 100mg Follow up in clinic this week for penis recheck and ongoing pain management.
[2021-01-02] MEDS ORDERED: Fluconazole 100 MG Tab PO ONE (10:17)
[2021-01-02] MEDS ORDERED: HYDROmorphone 1 MG/ML Syringe IM ONE (10:17)
[2021-01-02 10:52] VITALS: BP 159/93; PULSE 76
== END 2021-01-02 10:38 | disposition home or self-care (01) ==
LOC: DL.ED 10:04
DX: N39.8 Other specified disorders of urinary system (principal); E66.9 Obesity, unspecified; Z68.42 Body mass index [BMI] 45.0-49.9, adult; Z86.2 Personal history of diseases of the blood and blood-forming organs and certain disorders involving the immune mechanism; Z88.0 Allergy status to penicillin; Z91.030 Bee allergy status; Z88.8 Allergy status to other drugs, medicaments and biological substances; Z88.6 Allergy status to analgesic agent; Z88.5 Allergy status to narcotic agent; Z79.899 Other long term (current) drug therapy
CPT/HCPCS: 96372; 99283; A9270-GY; J1170

== ENCOUNTER 2021-01-03 02:06 | Emergency (ER) | payer MEDICAID ==
[2021-01-03 02:30] VITALS: BP 141/87; PULSE 66
[2021-01-03] MEDS ORDERED: HYDROmorphone 1 MG/ML Syringe IM ONE (02:46)
--- NOTE | 2021-01-03 02:48 | EDM.PDOC ---
ED HPI GENERAL MEDICAL PROBLEM - General Chief Complaint: Flank Pain Stated Complaint: AMBULANCE Time Seen by Provider: 01/03/21 02:33 Source of Information: Reports: Patient, EMS, EMS Notes Reviewed, RN, RN Notes Reviewed History Limitations: Reports: No Limitations - History of Present Illness INITIAL COMMENTS - FREE TEXT/NARRATIVE: Patient is a 30-year-old male who presents to ER per [place] [facility] with complaint of bilateral flank pain. Patient states the pain is constant. States he has been working with his primary care provider with pain medications. He states he is given pain medications on Mondays and , states he took his last pill this evening and will get a refill tomorrow. Patient admits to nausea and blood in the urine. Also complains of pain and burning to the penis due to skin lesions. States he was prescribed a medication for a yeast infection on Sunday and was unable to get those medications filled. He states he will get them filled on Sunday. Onset: Other - Related Data Allergies Allergy/AdvReac Type Severity Reaction Status Date / Time amoxicillin [Amoxicillin] Allergy Rash Verified 01/03/21 02:07 bee venom protein (honey bee) Allergy Cannot Verified 01/03/21 02:07 Remember butorphanol [From Stadol] Allergy Hallucinati Verified 01/03/21 02:07 ons haloperidol [From Haldol] Allergy Hallucinati Verified 01/03/21 02:07 ons ketorolac tromethamine Allergy Rash Verified 01/03/21 02:07 [From Toradol] metoclopramide [From Reglan] Allergy Agitation Verified 01/03/21 02:07 promethazine HCl Allergy Hallucinati Verified 01/03/21 02:07 [From Phenergan] ons tramadol HCl [From Ultram] Allergy Rash Verified 01/03/21 02:07 Home Meds: Home Meds Tamsulosin HCl [Flomax] 0.4 mg PO BID 05/30/20 [History] Ondansetron [Zofran] 8 mg PO TID PRN 06/21/20 [History] Docusate Sodium [Colace] 100 mg PO BID PRN 10/21/20 [History] Losartan [Cozaar] 25 mg PO BEDTIME 10/24/20 [History] Naproxen 250 mg PO Q8HR PRN 11/22/20 [History] oxyCODONE HCl/Acetaminophen [Endocet 10-325 mg Tablet] 1 tab PO Q6H PRN 12/19/20 [History] Acetaminophen [Tylenol] 650 mg PO Q4HR PRN 12/28/20 [History] metFORMIN [Glucophage] 500 mg PO BIDMEALS 01/03/21 [History] Past Medical History - Past Health History Medical/Surgical History: Denies Medical/Surgical History HEENT History: Reports: None Cardiovascular History: Reports: Hypertension Respiratory History: Reports: None Gastrointestinal History: Reports: Cholelithiasis, Gastritis, GERD Other Gastrointestinal History: gallbladder pain Genitourinary History: Reports: Renal Calculus, Other (See Below) 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 Hematologic History: Reports: None Immunologic History: Reports: None Oncologic (Cancer) History: Reports: None Dermatologic History: Reports: None - Infectious Disease History Infectious Disease History: Reports: Chicken Pox, Novel Coronavirus - Past Surgical History Head Surgeries/Procedures: Reports: None HEENT Surgical History: Reports: None Cardiovascular Surgical History: Reports: None GI Surgical History: Reports: Appendectomy, Cholecystectomy Male Surgical History: Reports: Circumcision Other Male Surgeries/Procedures: Has had kidney biopsy Musculoskeletal Surgical History: Reports: Other (See Below) Other Musculoskeletal Surgeries/Procedures:: left arm Social & Family History - Family History Family Medical History: No Pertinent Family History - Tobacco Use Tobacco Use Status *Q: Never Tobacco User Second Hand Smoke Exposure: No - Caffeine Use Caffeine Use: Reports: Soda Caffeine Use Comment: 32 oz daily - Recreational Drug Use Recreational Drug Use: No - Living Situation & Occupation Living situation: Reports: Single, Alone Occupation: Employed ED ROS GENERAL - Review of Systems Review Of Systems: Comprehensive ROS is negative, except as noted in HPI. ED EXAM, RENAL/ - Physical Exam Exam: See Below Exam Limited By: No Limitations General Appearance: Alert, WD/WN, Moderate Distress Eye Exam: Bilateral Eye: EOMI, Normal Inspection Ears: Normal External Exam, Hearing Grossly Normal Nose: Normal Inspection Throat/Mouth: Normal Inspection, Normal Voice, No Airway Compromise Head: Atraumatic, Normocephalic Neck: Normal Inspection, Supple, Non-Tender, Full Range of Motion Respiratory/Chest: No Respiratory Distress, Lungs Clear, Normal Breath Sounds, No Accessory Muscle Use, Chest Non-Tender Cardiovascular: Normal Peripheral Pulses, Regular Rate, Rhythm, No Edema, No Gallop, No JVD, No Murmur, No Rub GI/Abdominal: Normal Bowel Sounds, Soft, Non-Tender, No Distention (Male) Exam: Deferred Rectal (Males) Exam: Deferred Back Exam: Normal Inspection, Full Range of Motion, CVA Tenderness (L), CVA Tenderness (R) Extremities: Normal Inspection, Normal Range of Motion, Non-Tender, Normal Capillary Refill, No Pedal Edema Neurological: Alert, Oriented, Normal Cognition Psychiatric: Normal Affect, Normal Mood Skin Exam: Warm, Dry, Other (right leg edema, lymphedema, very dry) Lymphatic: No Adenopathy Course - Vital Signs Last Recorded V/S: Last Vital Signs Temp 97.4 F 01/03/21 02:10 Pulse 66 01/03/21 02:10 Resp 18 01/03/21 02:10 BP 141/87 H 01/03/21 02:10 Pulse Ox 99 01/03/21 02:10 - Orders/Labs/Meds Meds: Medications Discontinued Medications Generic Name Dose Route Start Last Admin Trade Name Chavo PRN Reason Stop Dose Admin Hydromorphone HCl 1 mg 01/03/21 02:46 01/03/21 02:52 Hydromorphone 1 Mg/Ml Syringe IM 01/03/21 02:47 1 mg ONETIME ONE Administration Departure - Departure Time of Disposition: 03:21 Disposition: Home, Self-Care 01 Condition: Fair Clinical Impression: Loin pain hematuria syndrome, Bilateral flank pain - Discharge Information *PRESCRIPTION DRUG MONITORING PROGRAM REVIEWED*: No *COPY OF PRESCRIPTION DRUG MONITORING REPORT IN PATIENT NICO: No Referrals: PCP,None [Primary Care Provider] - Forms: ED Department Discharge Additional Instructions: Follow up with [facility] this week Get your medications filled and take as prescribed Sepsis Event Note (ED) - Evaluation Sepsis Screening Result: No Definite Risk - Focused Exam Vital Signs: Vital Signs Temp Pulse Resp BP Pulse Ox 01/03/21 02:10 97.4 F 66 18 141/87 H 99
== END 2021-01-03 03:13 | disposition home or self-care (01) ==
LOC: DL.ED 02:06
DX: R10.9 Unspecified abdominal pain (principal); R31.9 Hematuria, unspecified; M54.5 Low back pain; I10 Essential (primary) hypertension; E66.9 Obesity, unspecified; Z88.5 Allergy status to narcotic agent; Z88.0 Allergy status to penicillin; Z88.6 Allergy status to analgesic agent; Z91.030 Bee allergy status; Z68.42 Body mass index [BMI] 45.0-49.9, adult
CPT/HCPCS: 96372; 99283; 99284; J1170

== ENCOUNTER 2021-01-05 08:36 | Emergency (ER) | payer MEDICAID ==
[2021-01-05 09:33] VITALS: BP 123/70; PULSE 74
[2021-01-05] MEDS ORDERED: HYDROmorphone 1 MG/ML Syringe IM ONE (09:44)
--- NOTE | 2021-01-05 09:51 | EDM.PDOC ---
ED HPI GENERAL MEDICAL PROBLEM - General Chief Complaint: Genitourinary Problem Stated Complaint: KIDNEYS Time Seen by Provider: 01/05/21 09:35 Source of Information: Reports: Patient, Old Records, RN, RN Notes Reviewed - History of Present Illness INITIAL COMMENTS - FREE TEXT/NARRATIVE: Patient presents to ER from home by POV with c/o left flank and left lower abdominal pain. The patient reports his symptoms have been flared up and on going for the past week, but he has had chronic pain of similar nature with frequent flare ups for over two years. Hx of HSP and Loin Pain Hematuria Syndrome. The patient reports he has been following the directions given by his primary care facility. He was referred to pain management, but the pain clinic has now declined to take his case. Duration: Chronic Quality: Reports: Same as Previous Episode Improves with: Reports: None Worsens with: Reports: None Associated Symptoms: Reports: No Other Symptoms Bilateral Flank Pain Score (Numeric/FACES): 9 - Related Data Allergies Allergy/AdvReac Type Severity Reaction Status Date / Time amoxicillin [Amoxicillin] Allergy Rash Verified 01/03/21 02:07 bee venom protein (honey bee) Allergy Cannot Verified 01/03/21 02:07 Remember butorphanol [From Stadol] Allergy Hallucinati Verified 01/03/21 02:07 ons haloperidol [From Haldol] Allergy Hallucinati Verified 01/03/21 02:07 ons ketorolac tromethamine Allergy Rash Verified 01/03/21 02:07 [From Toradol] metoclopramide [From Reglan] Allergy Agitation Verified 01/03/21 02:07 promethazine HCl Allergy Hallucinati Verified 01/03/21 02:07 [From Phenergan] ons tramadol HCl [From Ultram] Allergy Rash Verified 01/03/21 02:07 Home Meds: Home Meds Tamsulosin HCl [Flomax] 0.4 mg PO BID 05/30/20 [History] Ondansetron [Zofran] 8 mg PO TID PRN 06/21/20 [History] Docusate Sodium [Colace] 100 mg PO BID PRN 10/21/20 [History] Losartan [Cozaar] 25 mg PO BEDTIME 10/24/20 [History] Naproxen 250 mg PO Q8HR PRN 11/22/20 [History] oxyCODONE HCl/Acetaminophen [Endocet 10-325 mg Tablet] 1 tab PO Q6H PRN 12/19/20 [History] Acetaminophen [Tylenol] 650 mg PO Q4HR PRN 12/28/20 [History] metFORMIN [Glucophage] 500 mg PO BIDMEALS 01/03/21 [History] Past Medical History - Past Health History Medical/Surgical History: Denies Medical/Surgical History HEENT History: Reports: None Cardiovascular History: Reports: None Respiratory History: Reports: None Gastrointestinal History: Reports: Cholelithiasis, Gastritis, GERD Other Gastrointestinal History: gallbladder pain Genitourinary History: Reports: Renal Calculus, Other (See Below) 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 Hematologic History: Reports: None Immunologic History: Reports: None Oncologic (Cancer) History: Reports: None Dermatologic History: Reports: None - Infectious Disease History Infectious Disease History: Reports: Chicken Pox, Novel Coronavirus - Past Surgical History Head Surgeries/Procedures: Reports: None HEENT Surgical History: Reports: None Cardiovascular Surgical History: Reports: None GI Surgical History: Reports: Appendectomy, Cholecystectomy Male Surgical History: Reports: Circumcision Other Male Surgeries/Procedures: Has had kidney biopsy Musculoskeletal Surgical History: Reports: Other (See Below) Other Musculoskeletal Surgeries/Procedures:: left arm Social & Family History - Family History Family Medical History: No Pertinent Family History - Caffeine Use Caffeine Use: Reports: Soda Caffeine Use Comment: 32 oz daily - Recreational Drug Use Recreational Drug Use: Yes Drug Use in Last 12 Months: Yes Recreational Drug Type: Reports: Marijuana/Hashish Recreational Drug Use Frequency: Daily - Living Situation & Occupation Living situation: Reports: Single, Alone Occupation: Employed ED ROS GENERAL - Review of Systems Review Of Systems: Comprehensive ROS is negative, except as noted in HPI. ED EXAM, RENAL/ - Physical Exam Exam: See Below Exam Limited By: No Limitations General Appearance: Alert, WD/WN, No Apparent Distress, Obese Throat/Mouth: Normal Voice, No Airway Compromise Neck: Normal Inspection, Supple, Non-Tender, Full Range of Motion Respiratory/Chest: No Respiratory Distress, Lungs Clear Cardiovascular: Regular Rate, Rhythm GI/Abdominal: Normal Bowel Sounds, Soft, No Distention, Tender (LUQ, LLQ) (Male) Exam: Deferred Rectal (Males) Exam: Deferred Back Exam: Full Range of Motion, CVA Tenderness (L). No: CVA Tenderness (R), Vertebral Tenderness Extremities: Normal Inspection Neurological: Alert, Oriented, No Motor/Sensory Deficits Psychiatric: Normal Mood Skin Exam: Warm, Dry, Intact, Normal Color, No Rash Course - Vital Signs Last Recorded V/S: Last Vital Signs Temp 97.1 F 01/05/21 08:45 Pulse 74 01/05/21 08:45 Resp 18 01/05/21 08:45 BP 123/70 01/05/21 08:45 Pulse Ox 98 01/05/21 08:45 - Orders/Labs/Meds Meds: Medications Discontinued Medications Generic Name Dose Route Start Last Admin Trade Name Chavo PRN Reason Stop Dose Admin Hydromorphone HCl 2 mg 01/05/21 09:44 Hydromorphone 1 Mg/Ml Syringe IM 01/05/21 09:45 ONETIME ONE Departure - Departure Time of Disposition: 09:59 Disposition: Home, Self-Care 01 Condition: Good Clinical Impression: Loin pain hematuria syndrome, History of Henoch-Schonlein purpura - Discharge Information *PRESCRIPTION DRUG MONITORING PROGRAM REVIEWED*: No *COPY OF PRESCRIPTION DRUG MONITORING REPORT IN PATIENT NICO: No Instructions: Flank Pain, Adult Forms: ED Department Discharge Additional Instructions: Follow up in clinic with your doctor for pain management and referral if needed. Sepsis Event Note (ED) - Evaluation Sepsis Screening Result: No Definite Risk - Focused Exam Vital Signs: Vital Signs Temp Pulse Resp BP Pulse Ox 01/05/21 08:45 97.1 F 74 18 123/70 98
== END 2021-01-05 09:57 | disposition home or self-care (01) ==
LOC: DL.ED 08:36
DX: M54.5 Low back pain (principal); R31.9 Hematuria, unspecified; Z87.2 Personal history of diseases of the skin and subcutaneous tissue; E66.9 Obesity, unspecified; Z88.0 Allergy status to penicillin; Z91.030 Bee allergy status; Z88.5 Allergy status to narcotic agent; Z88.6 Allergy status to analgesic agent; Z88.8 Allergy status to other drugs, medicaments and biological substances; Z79.899 Other long term (current) drug therapy; Z68.42 Body mass index [BMI] 45.0-49.9, adult
CPT/HCPCS: 96372; 99283; J1170

== ENCOUNTER 2021-01-08 11:57 | Emergency (ER) | payer MEDICAID ==
[2021-01-08 12:10] VITALS: BP 141/88; PULSE 65
[2021-01-08] MEDS ORDERED: HYDROmorphone 0.5 MG/0.5 ML Syringe IM ONE (12:31)
--- NOTE | 2021-01-08 12:35 | EDM.PDOC ---
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 The patient reports he has taken his previously prescribed analgesics this morning, Oxycodone at 0830 and Tylenol at 1000, which have offered him little no no alleviation of symptoms during this current flair. He reports the pain is greater in his left flank than in his right. He continues to follow with SHONA Pérez at [facility] for management of his pain medications. He denies fever, shaking chills palpitations, shortness of breath, nausea, vomiting, or diarrhea. Left Flank Pain Score (Numeric/FACES): 8 - Related Data Allergies Allergy/AdvReac Type Severity Reaction Status Date / Time amoxicillin [Amoxicillin] Allergy Rash Verified 01/08/21 12:10 bee venom protein (honey bee) Allergy Cannot Verified 01/08/21 12:10 Remember butorphanol [From Stadol] Allergy Hallucinati Verified 01/08/21 12:10 ons haloperidol [From Haldol] Allergy Hallucinati Verified 01/08/21 12:10 ons ketorolac tromethamine Allergy Rash Verified 01/08/21 12:10 [From Toradol] metoclopramide [From Reglan] Allergy Agitation Verified 01/08/21 12:10 promethazine HCl Allergy Hallucinati Verified 01/08/21 12:10 [From Phenergan] ons tramadol HCl [From Ultram] Allergy Rash Verified 01/08/21 12:10 Home Meds: Home Meds Tamsulosin HCl [Flomax] 0.4 mg PO BID 05/30/20 [History] Ondansetron [Zofran] 8 mg PO TID PRN 06/21/20 [History] Docusate Sodium [Colace] 100 mg PO BID PRN 10/21/20 [History] Losartan [Cozaar] 25 mg PO BEDTIME 10/24/20 [History] Naproxen 250 mg PO Q8HR PRN 11/22/20 [History] oxyCODONE HCl/Acetaminophen [Endocet 10-325 mg Tablet] 1 tab PO Q6H PRN 12/19/20 [History] Acetaminophen [Tylenol] 650 mg PO Q4HR PRN 12/28/20 [History] metFORMIN [Glucophage] 500 mg PO BIDMEALS 01/03/21 [History] Past Medical History - Past Health History Medical/Surgical History: Denies Medical/Surgical History HEENT History: Reports: None Cardiovascular History: Reports: None Respiratory History: Reports: None Gastrointestinal History: Reports: Cholelithiasis, Gastritis, GERD Other Gastrointestinal History: gallbladder pain Genitourinary History: Reports: Renal Calculus, Other (See Below) 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 Hematologic History: Reports: None Immunologic History: Reports: None Oncologic (Cancer) History: Reports: None Dermatologic History: Reports: None - Infectious Disease History Infectious Disease History: Reports: Chicken Pox, Novel Coronavirus - Past Surgical History Head Surgeries/Procedures: Reports: None HEENT Surgical History: Reports: None Cardiovascular Surgical History: Reports: None GI Surgical History: Reports: Appendectomy, Cholecystectomy Male Surgical History: Reports: Circumcision Other Male Surgeries/Procedures: Has had kidney biopsy Musculoskeletal Surgical History: Reports: Other (See Below) Other Musculoskeletal Surgeries/Procedures:: left arm Social & Family History - Family History Family Medical History: No Pertinent Family History - Tobacco Use Tobacco Use Status *Q: Never Tobacco User Second Hand Smoke Exposure: No - Caffeine Use Caffeine Use: Reports: Coffee, Soda Caffeine Use Comment: 32 oz daily - Recreational Drug Use Recreational Drug Type: Reports: Marijuana/Hashish Other Recreational Drug Type: medical - Living Situation & Occupation Living situation: Reports: Single, Alone Occupation: Employed ED ROS GENERAL - Review of Systems Review Of Systems: Comprehensive ROS is negative, except as noted in HPI. ED EXAM, RENAL/ - Physical Exam Exam: See Below Exam Limited By: No Limitations General Appearance: Alert, Mild Distress (Flank pain) Throat/Mouth: Normal Inspection, Normal Oropharynx, Normal Voice, No Airway Compromise Respiratory/Chest: No Respiratory Distress, Lungs Clear, Normal Breath Sounds, No Accessory Muscle Use, Chest Non-Tender Cardiovascular: Normal Peripheral Pulses, Regular Rate, Rhythm, No Edema, No Gallop, No JVD, No Murmur, No Rub GI/Abdominal: Normal Bowel Sounds, Soft, No Distention, No Mass, Pelvis Stable, Tender (Suprapubic tenderness) (Male) Exam: Deferred Rectal (Males) Exam: Deferred Back Exam: Full Range of Motion, CVA Tenderness (L). No: CVA Tenderness (R), Paraspinal Tenderness, Vertebral Tenderness Extremities: Normal Inspection, Normal Range of Motion, Non-Tender, No Pedal Edema, Normal Capillary Refill Neurological: Alert, Oriented, CN II-XII Intact, Normal Cognition, Normal Gait, Normal Reflexes, No Motor/Sensory Deficits Psychiatric: Normal Affect, Normal Mood Skin Exam: Warm, Dry, Intact, Normal Color, No Rash. No: Ecchymosis, Erythema, Jaundice, Mottled, Pallor, Petechiae Course - Vital Signs Last Recorded V/S: Last Vital Signs Temp 96.9 F 01/08/21 12:04 Pulse 65 01/08/21 12:04 Resp 16 01/08/21 12:04 BP 141/88 H 01/08/21 12:04 Pulse Ox 100 01/08/21 12:04 - Orders/Labs/Meds Meds: Medications Discontinued Medications Generic Name Dose Route Start Last Admin Trade Name Freq PRN Reason Stop Dose Admin Hydromorphone HCl 2 mg 01/08/21 12:31 01/08/21 13:16 Hydromorphone 0.5 Mg/0.5 Ml Syringe IM 01/08/21 12:32 2 mg ONETIME ONE Administration - Re-Assessments/Exams Free Text/Narrative Re-Assessment/Exam: 01/08/21 Dilaudid 2mg IM administered for acute pain flair. Discussed supportive cares, including avoidance of activities that exacerbate flairs. Patient verbalized understanding and agreement with the plan of care. Departure - Departure Time of Disposition: 13:13 Disposition: Home, Self-Care 01 Condition: Good Clinical Impression: History of Henoch-Schonlein purpura, Loin pain hematuria syndrome - Discharge Information *PRESCRIPTION DRUG MONITORING PROGRAM REVIEWED*: Not Applicable *COPY OF PRESCRIPTION DRUG MONITORING REPORT IN PATIENT NICO: Not Applicable Forms: ED Department Discharge Additional Instructions: 1.) Follow up with your primary care provider regarding today's visit. 2.) Avoid activities which cause flairs in your chronic health condition. Sepsis Event Note (ED) - Evaluation Sepsis Screening Result: No Definite Risk - Focused Exam Vital Signs: Vital Signs Temp Pulse Resp BP Pulse Ox 01/08/21 12:04 96.9 F 65 16 141/88 H 100
== END 2021-01-08 13:35 | disposition home or self-care (01) ==
LOC: DL.ED 11:57
DX: M54.5 Low back pain (principal); R31.9 Hematuria, unspecified; Z87.2 Personal history of diseases of the skin and subcutaneous tissue; Z91.030 Bee allergy status; E66.9 Obesity, unspecified; Z88.0 Allergy status to penicillin; Z88.6 Allergy status to analgesic agent; Z88.5 Allergy status to narcotic agent; Z68.42 Body mass index [BMI] 45.0-49.9, adult
CPT/HCPCS: 96372; 99283; J1170

== ENCOUNTER 2021-01-09 08:24 | Emergency (ER) | payer MEDICAID ==
[2021-01-09 08:39] VITALS: BP 121/79; PULSE 73
[2021-01-09] MEDS ORDERED: Ondansetron 4 MG Tab.DIS PO ONE (08:50)
[2021-01-09] MEDS ORDERED: HYDROmorphone 1 MG/ML Syringe IM ONE (09:00)
--- NOTE | 2021-01-09 09:17 | EDM.PDOC ---
ED HPI GENERAL MEDICAL PROBLEM - General Chief Complaint: Flank Pain Stated Complaint: KIDNEY Time Seen by Provider: 01/09/21 08:45 Source of Information: Reports: Patient, Old Records, RN, RN Notes Reviewed History Limitations: Reports: No Limitations - History of Present Illness INITIAL COMMENTS - FREE TEXT/NARRATIVE: Elvin bobo 30 y/o male with history of loin pain hematuria syndrome following HSP who presents to the ED via personal vehicle with complaints of bilateral flank pain, dysuria, and hematuria. The patient was examined in this facility by this engineering technical writer yesterday for similar symptoms. He reports he received relief of his current flair following the Dilaudid 2mg IM injection yesterday, however he reports he woke with significant bilateral flank pain at about 0430. He has taken his prescribed medications x2 doses with little relief of pain. He denies fever, shaking chills, palpitations, abdominal pain, constipation or diarrhea. He does attest to nausea and vomiting. He has not taken a dose of Zofran. Flank Pain Score (Numeric/FACES): 9 - Related Data Allergies Allergy/AdvReac Type Severity Reaction Status Date / Time amoxicillin [Amoxicillin] Allergy Rash Verified 01/09/21 08:49 bee venom protein (honey bee) Allergy Cannot Verified 01/09/21 08:49 Remember butorphanol [From Stadol] Allergy Hallucinati Verified 01/09/21 08:49 ons haloperidol [From Haldol] Allergy Hallucinati Verified 01/09/21 08:49 ons ketorolac tromethamine Allergy Rash Verified 01/09/21 08:49 [From Toradol] metoclopramide [From Reglan] Allergy Agitation Verified 01/09/21 08:49 promethazine HCl Allergy Hallucinati Verified 01/09/21 08:49 [From Phenergan] ons tramadol HCl [From Ultram] Allergy Rash Verified 01/09/21 08:49 Home Meds: Home Meds Tamsulosin HCl [Flomax] 0.4 mg PO BID 05/30/20 [History] Ondansetron [Zofran] 8 mg PO TID PRN 06/21/20 [History] Docusate Sodium [Colace] 100 mg PO BID PRN 10/21/20 [History] Losartan [Cozaar] 25 mg PO BEDTIME 10/24/20 [History] Naproxen 250 mg PO Q8HR PRN 11/22/20 [History] oxyCODONE HCl/Acetaminophen [Endocet 10-325 mg Tablet] 1 tab PO Q6H PRN 12/19/20 [History] Acetaminophen [Tylenol] 650 mg PO Q4HR PRN 12/28/20 [History] metFORMIN [Glucophage] 500 mg PO BIDMEALS 01/03/21 [History] Past Medical History - Past Health History Medical/Surgical History: Denies Medical/Surgical History HEENT History: Reports: None Cardiovascular History: Reports: None Respiratory History: Reports: None Gastrointestinal History: Reports: Cholelithiasis, Gastritis, GERD Other Gastrointestinal History: gallbladder pain Genitourinary History: Reports: Renal Calculus, Other (See Below) 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 Hematologic History: Reports: None Immunologic History: Reports: None Oncologic (Cancer) History: Reports: None Dermatologic History: Reports: None - Infectious Disease History Infectious Disease History: Reports: Chicken Pox, Novel Coronavirus - Past Surgical History Head Surgeries/Procedures: Reports: None HEENT Surgical History: Reports: None Cardiovascular Surgical History: Reports: None GI Surgical History: Reports: Appendectomy, Cholecystectomy Male Surgical History: Reports: Circumcision Other Male Surgeries/Procedures: Has had kidney biopsy Musculoskeletal Surgical History: Reports: Other (See Below) Other Musculoskeletal Surgeries/Procedures:: left arm Social & Family History - Family History Family Medical History: No Pertinent Family History - Tobacco Use Tobacco Use Status *Q: Current Status Unknown Second Hand Smoke Exposure: Yes - Caffeine Use Caffeine Use: Reports: Coffee, Energy Drinks, Soda, Tea, Other Caffeine Use Comment: 32 oz daily - Recreational Drug Use Recreational Drug Use: No - Living Situation & Occupation Living situation: Reports: Single, Alone Occupation: Employed ED ROS GENERAL - Review of Systems Review Of Systems: Comprehensive ROS is negative, except as noted in HPI. ED EXAM, RENAL/ - Physical Exam Exam: See Below Exam Limited By: No Limitations General Appearance: Alert, No Apparent Distress Eye Exam: Bilateral Eye: EOMI, Normal Inspection, PERRL (3mm) Throat/Mouth: Normal Inspection, Normal Oropharynx, Normal Voice, No Airway Compromise Respiratory/Chest: No Respiratory Distress, Lungs Clear, Normal Breath Sounds, No Accessory Muscle Use, Chest Non-Tender Cardiovascular: Normal Peripheral Pulses, Regular Rate, Rhythm, No Edema, No Gallop, No JVD, No Murmur, No Rub GI/Abdominal: Normal Bowel Sounds, Soft, Non-Tender, No Organomegaly, No Distention, No Abnormal Bruit, No Mass, Pelvis Stable (Male) Exam: Deferred Rectal (Males) Exam: Deferred Back Exam: Full Range of Motion, CVA Tenderness (L), CVA Tenderness (R) Extremities: Normal Inspection, Normal Range of Motion, Non-Tender, Normal Capillary Refill, No Pedal Edema Neurological: Alert, Oriented, CN II-XII Intact, Normal Cognition, Normal Gait, No Motor/Sensory Deficits Psychiatric: Normal Affect, Normal Mood Skin Exam: Warm, Dry, Intact, Normal Color, No Rash. No: Ecchymosis, Erythema, Jaundice, Mottled, Pallor, Petechiae Course - Vital Signs Last Recorded V/S: Last Vital Signs Temp 97.5 F 01/09/21 08:38 Pulse 73 01/09/21 08:38 Resp 18 01/09/21 08:38 BP 121/79 01/09/21 08:38 Pulse Ox 99 01/09/21 08:38 - Orders/Labs/Meds Orders: Active Orders 24 hr Category Date Time Status CULTURE URINE [RM] Stat Lab 01/09/21 08:44 Received Labs: Laboratory Tests 01/09/21 01/09/21 Range/Units 08:44 08:44 Urine Color Yellow (YELLOW) Urine Appearance Slightly cloudy (CLEAR) Urine pH 5.5 (5.0-9.0) Ur Specific Welch 1.025 (1.005-1.030) Urine Protein Negative (NEGATIVE) Urine Glucose (UA) Negative (NEGATIVE) Urine Ketones Negative (NEGATIVE) Urine Occult Blood Large H (NEGATIVE) Urine Nitrite Negative (NEGATIVE) Urine Bilirubin Negative (NEGATIVE) Urine Urobilinogen 0.2 (0.2-1.0) mg/dL Ur Leukocyte Esterase Trace H (NEGATIVE) Urine RBC 75-100 H /HPF Urine WBC 0-5 (0-5/HPF) /HPF Ur Epithelial Cells Few (NOT SEEN) /HPF Urine Opiates Screen Negative (NEGATIVE) Ur Oxycodone Screen Positive H (NEGATIVE) Urine Methadone Screen Negative (NEGATIVE) Ur Barbiturates Screen Negative (NEGATIVE) U Tricyclic Antidepress Negative (NEGATIVE) Ur Phencyclidine Scrn Negative (NEGATIVE) Ur Amphetamine Screen Negative (NEGATIVE) U Methamphetamines Scrn Negative (NEGATIVE) Urine MDMA Screen Negative (NEGATIVE) U Benzodiazepines Scrn Negative (NEGATIVE) Urine Cocaine Screen Negative (NEGATIVE) U Marijuana (THC) Screen Positive H (NEGATIVE) Meds: Medications Discontinued Medications Generic Name Dose Route Start Last Admin Trade Name Chavo PRN Reason Stop Dose Admin Hydromorphone HCl 2 mg 01/09/21 09:00 01/09/21 09:12 Hydromorphone 1 Mg/Ml Syringe IM 01/09/21 09:01 2 mg ONETIME ONE Administration Ondansetron HCl 4 mg 01/09/21 08:50 01/09/21 08:56 Ondansetron 4 Mg Tab.Dis PO 01/09/21 08:51 4 mg ONETIME ONE Administration - Re-Assessments/Exams Free Text/Narrative Re-Assessment/Exam: 01/09/21 Patient verbalized mild improvement in pain following Dilaudid IM injection. Discussed supportive cares, as well as avoidance of activities that cause exacerbation of his pain. Patient verbalized understanding and agreement with the plan of care. Departure - Departure Time of Disposition: 09:17 Disposition: Home, Self-Care 01 Condition: Good Clinical Impression: History of Henoch-Schonlein purpura, Loin pain hematuria syndrome, Bilateral flank pain - Discharge Information *PRESCRIPTION DRUG MONITORING PROGRAM REVIEWED*: Not Applicable *COPY OF PRESCRIPTION DRUG MONITORING REPORT IN PATIENT NICO: Not Applicable Forms: ED Department Discharge Additional Instructions: 1.) Keep your previously scheduled appointment with your primary care provider tomorrow. 2.) Avoid activities that exacerbate your flairs. Sepsis Event Note (ED) - Evaluation Sepsis Screening Result: No Definite Risk - Focused Exam Vital Signs: Vital Signs Temp Pulse Resp BP Pulse Ox 01/09/21 08:38 97.5 F 73 18 121/79 99 - My Orders Last 24 Hours: My Active Orders 01/09/21 08:44 CULTURE URINE [RM] Stat - Assessment/Plan Last 24 Hours: My Active Orders 01/09/21 08:44 CULTURE URINE [RM] Stat
== END 2021-01-09 09:28 | disposition home or self-care (01) ==
LOC: DL.ED 08:24
DX: R10.9 Unspecified abdominal pain (principal); M54.5 Low back pain; R31.9 Hematuria, unspecified; E66.9 Obesity, unspecified; Z88.0 Allergy status to penicillin; Z91.030 Bee allergy status; Z88.8 Allergy status to other drugs, medicaments and biological substances; Z88.5 Allergy status to narcotic agent; Z87.2 Personal history of diseases of the skin and subcutaneous tissue; Z68.42 Body mass index [BMI] 45.0-49.9, adult
CPT/HCPCS: 80305-QW; 81001; 87086; 96372; 99283; 99284; A9270-GY; J1170

== ENCOUNTER 2021-01-11 06:34 | Emergency (ER) | payer MEDICAID ==
[2021-01-11] MEDS ORDERED: Sodium Chloride 0.9% 1,000 ML IV ONE (07:15)
[2021-01-11] MEDS ORDERED: Ondansetron 4 MG/2 ML SDV IVPUSH ONE ×2 (07:15→09:26)
[2021-01-11 07:57] LABS: ANION GAP 17.6 mEq/L (7-13); CHLORIDE,CL 105 mmol/L (98-107); SODIUM,NA 141 mmol/L (136-145)
[2021-01-11] MEDS ORDERED: HYDROmorphone 1 MG/ML Syringe IVPUSH ONE ×2 (08:23→09:26)
--- NOTE | 2021-01-11 09:35 | EDM.PDOC ---
ED HPI GENERAL MEDICAL PROBLEM - General Chief Complaint: Abdominal Pain Stated Complaint: KIDNEYS AND NON STOP VOMITING Time Seen by Provider: 01/11/21 07:45 Source of Information: Reports: Patient History Limitations: Reports: No Limitations - History of Present Illness INITIAL COMMENTS - FREE TEXT/NARRATIVE: This 30 yo male patient reports to the ED with increased abdominal pain and flank pain. The patient also reports he has been vomiting non-stop "all night". Onset: Today Duration: Constant Location: Reports: Abdomen Quality: Reports: Other Severity: Severe Improves with: Reports: None Worsens with: Reports: None Context: Reports: Other Associated Symptoms: Reports: Nausea/Vomiting Bilateral Flank Pain Score (Numeric/FACES): 9 - Related Data Allergies Allergy/AdvReac Type Severity Reaction Status Date / Time amoxicillin [Amoxicillin] Allergy Rash Verified 01/11/21 07:06 bee venom protein (honey bee) Allergy Cannot Verified 01/11/21 07:06 Remember butorphanol [From Stadol] Allergy Hallucinati Verified 01/11/21 07:06 ons haloperidol [From Haldol] Allergy Hallucinati Verified 01/11/21 07:06 ons ketorolac tromethamine Allergy Rash Verified 01/11/21 07:06 [From Toradol] metoclopramide [From Reglan] Allergy Agitation Verified 01/11/21 07:06 promethazine HCl Allergy Hallucinati Verified 01/11/21 07:06 [From Phenergan] ons tramadol HCl [From Ultram] Allergy Rash Verified 01/11/21 07:06 Home Meds: Home Meds Tamsulosin HCl [Flomax] 0.4 mg PO BID 05/30/20 [History] Ondansetron [Zofran] 8 mg PO TID PRN 06/21/20 [History] Docusate Sodium [Colace] 100 mg PO BID PRN 10/21/20 [History] Losartan [Cozaar] 25 mg PO BEDTIME 10/24/20 [History] Naproxen 250 mg PO Q8HR PRN 11/22/20 [History] oxyCODONE HCl/Acetaminophen [Endocet 10-325 mg Tablet] 1 tab PO Q6H PRN 12/19/20 [History] Acetaminophen [Tylenol] 650 mg PO Q4HR PRN 12/28/20 [History] metFORMIN [Glucophage] 500 mg PO BIDMEALS 01/03/21 [History] Past Medical History - Past Health History Medical/Surgical History: Denies Medical/Surgical History HEENT History: Reports: None Cardiovascular History: Reports: None Respiratory History: Reports: None Gastrointestinal History: Reports: Cholelithiasis, Gastritis, GERD Other Gastrointestinal History: gallbladder pain Genitourinary History: Reports: Renal Calculus, Other (See Below) 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 Hematologic History: Reports: None Immunologic History: Reports: None Oncologic (Cancer) History: Reports: None Dermatologic History: Reports: None - Infectious Disease History Infectious Disease History: Reports: Chicken Pox, Novel Coronavirus - Past Surgical History Head Surgeries/Procedures: Reports: None HEENT Surgical History: Reports: None Cardiovascular Surgical History: Reports: None GI Surgical History: Reports: Appendectomy, Cholecystectomy Male Surgical History: Reports: Circumcision Other Male Surgeries/Procedures: Has had kidney biopsy Musculoskeletal Surgical History: Reports: Other (See Below) Other Musculoskeletal Surgeries/Procedures:: left arm Social & Family History - Family History Family Medical History: No Pertinent Family History - Caffeine Use Caffeine Use: Reports: Soda Caffeine Use Comment: 32 oz daily - Recreational Drug Use Recreational Drug Use: Yes Drug Use in Last 12 Months: Yes Recreational Drug Type: Reports: Marijuana/Hashish Recreational Drug Use Frequency: Daily - Living Situation & Occupation Living situation: Reports: Single, Alone Occupation: Employed ED ROS GENERAL - Review of Systems Review Of Systems: Comprehensive ROS is negative, except as noted in HPI. ED EXAM, GI/ABD - Physical Exam Exam: See Below Exam Limited By: No Limitations General Appearance: Alert, WD/WN, Moderate Distress, Obese Eyes: Bilateral: Normal Appearance, EOMI Ears: Normal External Exam, Normal Canal, Hearing Grossly Normal, Normal TMs Nose: Normal Inspection, Normal Mucosa, No Blood Throat/Mouth: Normal Inspection, Normal Lips, Normal Teeth, Normal Gums, Normal Oropharynx, Normal Voice, No Airway Compromise Head: Atraumatic, Normocephalic Neck: Normal Inspection, Supple, Non-Tender, Full Range of Motion Respiratory/Chest: No Respiratory Distress, Lungs Clear, Normal Breath Sounds, No Accessory Muscle Use, Chest Non-Tender Cardiovascular: Normal Peripheral Pulses, Regular Rate, Rhythm, No Edema, No Gallop, No JVD, No Murmur, No Rub GI/Abdominal Exam: Tender (diffuse) (Male) Exam: Deferred Rectal (Males) Exam: Deferred Back Exam: CVA Tenderness (L), CVA Tenderness (R) Extremities: Normal Inspection, Normal Range of Motion, Non-Tender, Normal Capillary Refill, No Pedal Edema Neurological: Alert, Oriented, CN II-XII Intact, Normal Cognition, Normal Gait, Normal Reflexes, No Motor/Sensory Deficits Psychiatric: Normal Affect, Normal Mood Skin Exam: Warm, Dry, Intact, Normal Color, No Rash Lymphatic: No Adenopathy Course - Vital Signs Last Recorded V/S: Last Vital Signs Temp 36.2 C 01/11/21 07:07 Pulse 82 01/11/21 07:07 Resp 18 01/11/21 07:07 BP 129/78 01/11/21 07:07 Pulse Ox 100 01/11/21 07:07 - Orders/Labs/Meds Labs: Laboratory Tests 01/11/21 01/11/21 01/11/21 Range/Units 07:28 07:28 07:28 WBC 12.8 H (5.0-10.0) 10^3/uL RBC 5.37 (4.6-6.2) 10^6/uL Hgb 15.6 (14.0-18.0) g/dL Hct 45.1 (40.0-54.0) % MCV 84.0 (80-100) fL MCH 29.1 (27.0-34.0) pg MCHC 34.6 (33.0-35.0) g/dL Plt Count 363 (150-450) 10^3/uL Neut % (Auto) 77.5 H (42.2-75.2) % Lymph % (Auto) 15.9 L (20.5-50.1) % [place] % (Auto) 5.4 (2-8) % Eos % (Auto) 0.9 L (1.0-3.0) % Baso % (Auto) 0.3 (0.0-1.0) % Sodium 141 (136-145) mmol/L Potassium 3.6 (3.5-5.1) mmol/L Chloride 105 (98-107) mmol/L Carbon Dioxide 22 (21-32) mmol/L Anion Gap 17.6 H (7-13) mEq/L BUN 12 (7-18) mg/dL Creatinine 0.89 (0.70-1.30) mg/dL Est Cr Clr Drug Dosing 134.42 mL/min Estimated GFR (MDRD) > 60 BUN/Creatinine Ratio 13.5 (No establ ref range) Glucose 107 H (70-99) mg/dL Lactic Acid 1.7 (0.4-2.0) mmol/L Calcium 8.5 (8.5-10.1) mg/dL Total Bilirubin 0.8 (0.2-1.0) mg/dL AST 20 (15-37) U/L ALT 34 (16-63) U/L Alkaline Phosphatase 77 (46-116) U/L Total Protein 7.6 (6.4-8.2) g/dL Albumin 4.0 (3.4-5.0) g/dL Globulin 3.6 Albumin/Globulin Ratio 1.1 Urine Color (YELLOW) Urine Appearance (CLEAR) Urine pH (5.0-9.0) Ur Specific [place] (1.005-1.030) Urine Protein (NEGATIVE) Urine Glucose (UA) (NEGATIVE) Urine Ketones (NEGATIVE) Urine Occult Blood (NEGATIVE) Urine Nitrite (NEGATIVE) Urine Bilirubin (NEGATIVE) Urine Urobilinogen (0.2-1.0) mg/dL Ur Leukocyte Esterase (NEGATIVE) Urine RBC /HPF Urine WBC (0-5/HPF) /HPF Ur Epithelial Cells (NOT SEEN) /HPF Urine Bacteria (0-FEW/HPF) /HPF Urine Mucus (NOT SEEN) /LPF Urine Opiates Screen (NEGATIVE) Ur Oxycodone Screen (NEGATIVE) Urine Methadone Screen (NEGATIVE) Ur Barbiturates Screen (NEGATIVE) U Tricyclic Antidepress (NEGATIVE) Ur Phencyclidine Scrn (NEGATIVE) Ur Amphetamine Screen (NEGATIVE) U Methamphetamines Scrn (NEGATIVE) Urine MDMA Screen (NEGATIVE) U Benzodiazepines Scrn (NEGATIVE) Urine Cocaine Screen (NEGATIVE) U Marijuana (THC) Screen (NEGATIVE) 01/11/21 01/11/21 Range/Units 08:05 08:05 WBC (5.0-10.0) 10^3/uL RBC (4.6-6.2) 10^6/uL Hgb (14.0-18.0) g/dL Hct (40.0-54.0) % MCV (80-100) fL MCH (27.0-34.0) pg MCHC (33.0-35.0) g/dL Plt Count (150-450) 10^3/uL Neut % (Auto) (42.2-75.2) % Lymph % (Auto) (20.5-50.1) % [place] % (Auto) (2-8) % Eos % (Auto) (1.0-3.0) % Baso % (Auto) (0.0-1.0) % Sodium (136-145) mmol/L Potassium (3.5-5.1) mmol/L Chloride (98-107) mmol/L Carbon Dioxide (21-32) mmol/L Anion Gap (7-13) mEq/L BUN (7-18) mg/dL Creatinine (0.70-1.30) mg/dL Est Cr Clr Drug Dosing mL/min Estimated GFR (MDRD) BUN/Creatinine Ratio (No establ ref range) Glucose (70-99) mg/dL Lactic Acid (0.4-2.0) mmol/L Calcium (8.5-10.1) mg/dL Total Bilirubin (0.2-1.0) mg/dL AST (15-37) U/L ALT (16-63) U/L Alkaline Phosphatase (46-116) U/L Total Protein (6.4-8.2) g/dL Albumin (3.4-5.0) g/dL Globulin Albumin/Globulin Ratio Urine Color Dark yellow (YELLOW) Urine Appearance Slightly cloudy (CLEAR) Urine pH 8.5 (5.0-9.0) Ur Specific [place] 1.020 (1.005-1.030) Urine Protein 30 H (NEGATIVE) Urine Glucose (UA) Negative (NEGATIVE) Urine Ketones Negative (NEGATIVE) Urine Occult Blood Negative (NEGATIVE) Urine Nitrite Negative (NEGATIVE) Urine Bilirubin Negative (NEGATIVE) Urine Urobilinogen 0.2 (0.2-1.0) mg/dL Ur Leukocyte Esterase Negative (NEGATIVE) Urine RBC Not seen /HPF Urine WBC 0-5 (0-5/HPF) /HPF Ur Epithelial Cells Few (NOT SEEN) /HPF Urine Bacteria Few (0-FEW/HPF) /HPF Urine Mucus Many H (NOT SEEN) /LPF Urine Opiates Screen Negative (NEGATIVE) Ur Oxycodone Screen Positive H (NEGATIVE) Urine Methadone Screen Negative (NEGATIVE) Ur Barbiturates Screen Negative (NEGATIVE) U Tricyclic Antidepress Negative (NEGATIVE) Ur Phencyclidine Scrn Negative (NEGATIVE) Ur Amphetamine Screen Negative (NEGATIVE) U Methamphetamines Scrn Negative (NEGATIVE) Urine MDMA Screen Negative (NEGATIVE) U Benzodiazepines Scrn Negative (NEGATIVE) Urine Cocaine Screen Negative (NEGATIVE) U Marijuana (THC) Screen Positive H (NEGATIVE) Meds: Medications Discontinued Medications Generic Name Dose Route Start Last Admin Trade Name Freq PRN Reason Stop Dose Admin Hydromorphone HCl 1 mg 01/11/21 08:23 01/11/21 08:56 Hydromorphone 1 Mg/Ml Syringe IVPUSH 01/11/21 08:24 1 mg ONETIME ONE Administration Hydromorphone HCl 1 mg 01/11/21 09:26 Hydromorphone 1 Mg/Ml Syringe IVPUSH 01/11/21 09:27 ONETIME ONE Sodium Chloride 1,000 mls @ 999 mls/hr 01/11/21 07:15 01/11/21 07:32 Normal Saline IV 01/11/21 08:15 999 mls/hr .BOLUS ONE Administration Ondansetron HCl 4 mg 01/11/21 07:15 01/11/21 07:32 Ondansetron 4 Mg/2 Ml Sdv IVPUSH 01/11/21 07:16 4 mg ONETIME ONE Administration Ondansetron HCl 4 mg 01/11/21 09:26 Ondansetron 4 Mg/2 Ml Sdv IVPUSH 01/11/21 09:27 ONETIME ONE Departure - Departure Time of Disposition: 09:33 Disposition: Home, Self-Care 01 Condition: Fair Clinical Impression: Vomiting, Loin pain hematuria syndrome - Discharge Information *PRESCRIPTION DRUG MONITORING PROGRAM REVIEWED*: Not Applicable *COPY OF PRESCRIPTION DRUG MONITORING REPORT IN PATIENT NICO: Not Applicable Instructions: Nausea and Vomiting, Adult, [id number] Forms: ED Department Discharge Care Plan Goals: The patient was advised of the examination and lab results during the visit. The patient was given IV fluids, IV Dilaudid and IV Zofran while in the ED. The patient was encouraged to continue to take his prescription medications as directed. The patient should follow-up with his primary care facility and his specialist. If the patient has any additional symptoms or concerns, the patient should either return to the emergency department or visit his primary care facility. Sepsis Event Note (ED) - Evaluation Sepsis Screening Result: No Definite Risk - Focused Exam Vital Signs: Vital Signs Temp Pulse Resp BP Pulse Ox 01/11/21 07:07 36.2 C 82 18 129/78 100
[2021-01-11 09:41] VITALS: BP 118/72; PULSE 60
== END 2021-01-11 09:54 | disposition home or self-care (01) ==
LOC: DL.ED 06:34
DX: N39.8 Other specified disorders of urinary system (principal); E66.9 Obesity, unspecified; Z68.41 Body mass index [BMI] 40.0-44.9, adult; R11.10 Vomiting, unspecified; Z91.030 Bee allergy status; Z88.6 Allergy status to analgesic agent; Z88.5 Allergy status to narcotic agent; Z88.8 Allergy status to other drugs, medicaments and biological substances; Z79.899 Other long term (current) drug therapy; Z88.0 Allergy status to penicillin
CPT/HCPCS: 36415; 80053; 80305-QW; 81001; 83605; 85025; 96374; 96375; 96376; 99283; 99284-25; J1170; J2405; J7030

== ENCOUNTER 2021-01-11 21:12 | Emergency (ER) | payer MEDICAID ==
[2021-01-11 21:35] VITALS: BP 121/94; PULSE 64
[2021-01-11] MEDS ORDERED: Famotidine 20 MG/2 ML SDV IVPUSH ONE (21:56)
[2021-01-11] MEDS ORDERED: Ondansetron 8 MG in Sodium Chloride 0.9% 50 ML IV ONE (21:56)
[2021-01-11] MEDS ORDERED: Sodium Chloride 0.9% 1,000 ML IV ONE (21:56)
[2021-01-11] MEDS ORDERED: HYDROmorphone 1 MG/ML Syringe IM ONE (21:56)
[2021-01-11] MEDS ORDERED: HYDROmorphone 1 MG/ML Syringe IVPUSH ONE (22:28)
--- NOTE | 2021-01-11 23:16 | EDM.PDOC ---
ED HPI GENERAL MEDICAL PROBLEM - General Chief Complaint: Gastrointestinal Problem Stated Complaint: BY AMBULANCE Time Seen by Provider: 01/11/21 21:40 Source of Information: Reports: Patient, RN History Limitations: Reports: No Limitations - History of Present Illness INITIAL COMMENTS - FREE TEXT/NARRATIVE: ED via [facility] with common c/o bilateral flank and groin pain with nausea and vomiting..Seen earlier in ED noted improvement for few hours able to go home and sleep. Woke with nausea and vomiting multiple times. Oral zofran not helping, has been tolerating few sips gatorade. Reports surgery tentative for February 06 if able to lose required weight. . Left Flank Pain Score (Numeric/FACES): 9 - Related Data Allergies Allergy/AdvReac Type Severity Reaction Status Date / Time amoxicillin [Amoxicillin] Allergy Rash Verified 01/11/21 07:06 bee venom protein (honey bee) Allergy Cannot Verified 01/11/21 07:06 Remember butorphanol [From Stadol] Allergy Hallucinati Verified 01/11/21 07:06 ons haloperidol [From Haldol] Allergy Hallucinati Verified 01/11/21 07:06 ons ketorolac tromethamine Allergy Rash Verified 01/11/21 07:06 [From Toradol] metoclopramide [From Reglan] Allergy Agitation Verified 01/11/21 07:06 promethazine HCl Allergy Hallucinati Verified 01/11/21 07:06 [From Phenergan] ons tramadol HCl [From Ultram] Allergy Rash Verified 01/11/21 07:06 Home Meds: Home Meds Tamsulosin HCl [Flomax] 0.4 mg PO BID 05/30/20 [History] Ondansetron [Zofran] 8 mg PO TID PRN 06/21/20 [History] Docusate Sodium [Colace] 100 mg PO BID PRN 10/21/20 [History] Losartan [Cozaar] 25 mg PO BEDTIME 10/24/20 [History] Naproxen 250 mg PO Q8HR PRN 11/22/20 [History] oxyCODONE HCl/Acetaminophen [Endocet 10-325 mg Tablet] 1 tab PO Q6H PRN 12/19/20 [History] Acetaminophen [Tylenol] 650 mg PO Q4HR PRN 12/28/20 [History] metFORMIN [Glucophage] 500 mg PO BIDMEALS 01/03/21 [History] Past Medical History - Past Health History Medical/Surgical History: Denies Medical/Surgical History HEENT History: Reports: None Cardiovascular History: Reports: None Respiratory History: Reports: None Gastrointestinal History: Reports: Cholelithiasis, Gastritis, GERD Other Gastrointestinal History: gallbladder pain Genitourinary History: Reports: Renal Calculus, Other (See Below) 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 Hematologic History: Reports: None Immunologic History: Reports: None Oncologic (Cancer) History: Reports: None Dermatologic History: Reports: None - Infectious Disease History Infectious Disease History: Reports: Chicken Pox, Novel Coronavirus - Past Surgical History Head Surgeries/Procedures: Reports: None HEENT Surgical History: Reports: None Cardiovascular Surgical History: Reports: None GI Surgical History: Reports: Appendectomy, Cholecystectomy Male Surgical History: Reports: Circumcision Other Male Surgeries/Procedures: Has had kidney biopsy Musculoskeletal Surgical History: Reports: Other (See Below) Other Musculoskeletal Surgeries/Procedures:: left arm Social & Family History - Family History Family Medical History: No Pertinent Family History - Tobacco Use Tobacco Use Status *Q: Never Tobacco User Second Hand Smoke Exposure: No - Caffeine Use Caffeine Use: Reports: Soda Caffeine Use Comment: 32 oz daily - Recreational Drug Use Recreational Drug Use: No - Living Situation & Occupation Living situation: Reports: Single, Alone Occupation: Employed ED ROS GENERAL - Review of Systems Review Of Systems: See Below Constitutional: Reports: Malaise, Decreased Appetite. Denies: Fever, Chills HEENT: Reports: No Symptoms Respiratory: Reports: No Symptoms Cardiovascular: Reports: No Symptoms GI/Abdominal: Reports: Abdominal Pain, Decreased Appetite, Nausea, Vomiting : Reports: No Symptoms, Flank Pain (bilateral) Skin: Reports: No Symptoms Neurological: Reports: No Symptoms Psychiatric: Reports: No Symptoms ED EXAM, GI/ABD - Physical Exam Exam: See Below Exam Limited By: No Limitations General Appearance: Alert, Mild Distress, Obese Ears: Normal External Exam, Hearing Grossly Normal Nose: Normal Inspection Throat/Mouth: Normal Inspection Head: Atraumatic, Normocephalic Neck: Normal Inspection, Full Range of Motion Respiratory/Chest: Lungs Clear, Normal Breath Sounds Cardiovascular: Regular Rate, Rhythm GI/Abdominal Exam: Normal Bowel Sounds, Soft Back Exam: CVA Tenderness (L), CVA Tenderness (R) Neurological: Alert, Oriented, Normal Cognition Psychiatric: Flat Affect Skin Exam: Warm, Dry, Intact, Normal Color Course - Vital Signs Last Recorded V/S: Last Vital Signs Temp 97.9 F 01/11/21 21:30 Pulse 64 01/11/21 21:30 Resp 20 01/11/21 21:30 BP 121/94 H 01/11/21 21:30 Pulse Ox 100 01/11/21 21:30 - Orders/Labs/Meds Meds: Medications Discontinued Medications Generic Name Dose Route Start Last Admin Trade Name Chavo PRN Reason Stop Dose Admin Famotidine 20 mg 01/11/21 21:56 01/11/21 22:19 Famotidine 20 Mg/2 Ml Sdv IVPUSH 01/11/21 21:57 20 mg ONETIME ONE Administration Hydromorphone HCl 1 mg 01/11/21 21:56 Hydromorphone 1 Mg/Ml Syringe IM 01/11/21 21:57 ONETIME ONE Hydromorphone HCl 1 mg 01/11/21 22:28 01/11/21 22:29 Hydromorphone 1 Mg/Ml Syringe IVPUSH 01/11/21 22:29 1 mg ONETIME ONE Administration Ondansetron HCl 8 mg/ Sodium 54 mls @ 200 mls/hr 01/11/21 21:56 01/11/21 22:26 Chloride IV 01/11/21 22:12 200 mls/hr ONETIME ONE Administration Sodium Chloride 1,000 mls @ 999 mls/hr 01/11/21 21:56 01/11/21 22:18 Normal Saline IV 01/11/21 22:56 999 mls/hr .BOLUS ONE Administration Oxycodone/Acetaminophen 1 tab 01/11/21 23:36 01/11/21 23:48 Acetaminophen/Oxycodone 325-5 Mg Tab PO 01/11/21 23:37 1 tab ONETIME ONE Administration Departure - Departure Time of Disposition: 23:13 Disposition: Home, Self-Care 01 Condition: Good Clinical Impression: Vomiting, Bilateral flank pain - Discharge Information *PRESCRIPTION DRUG MONITORING PROGRAM REVIEWED*: No *COPY OF PRESCRIPTION DRUG MONITORING REPORT IN PATIENT NICO: No Instructions: Vomiting, Adult Referrals: PCP,None [Primary Care Provider] - Forms: ED Department Discharge Additional Instructions: sips liquid, advance as tolerated zofran every 4 hours as needed for nausea oxycodone as ordered by primary care clinic follow up as scheduled Sepsis Event Note (ED) - Evaluation Sepsis Screening Result: No Definite Risk - Focused Exam Vital Signs: Vital Signs Temp Pulse Resp BP Pulse Ox 01/11/21 21:30 97.9 F 64 20 121/94 H 100
[2021-01-11] MEDS ORDERED: Acetaminophen/oxyCODONE 325-5 MG Tab PO ONE (23:36)
== END 2021-01-11 23:50 | disposition home or self-care (01) ==
LOC: DL.ED 21:12
DX: R10.9 Unspecified abdominal pain (principal); R11.2 Nausea with vomiting, unspecified; E66.9 Obesity, unspecified; Z68.42 Body mass index [BMI] 45.0-49.9, adult; Z88.0 Allergy status to penicillin; Z91.030 Bee allergy status; Z88.6 Allergy status to analgesic agent; Z88.8 Allergy status to other drugs, medicaments and biological substances; Z88.5 Allergy status to narcotic agent; Z79.899 Other long term (current) drug therapy
CPT/HCPCS: 96365; 96375; 99284-25; A9270-GY; J1170; J2405; J3490; J7030

== ENCOUNTER 2021-01-14 09:21 | Emergency (ER) | payer MEDICAID ==
[2021-01-14 09:50] VITALS: BP 126/82; PULSE 72
== END 2021-01-14 11:00 | disposition left against medical advice (07) ==
LOC: DL.ED 09:21
DX: D68.9 Coagulation defect, unspecified (principal); Z53.21 Procedure and treatment not carried out due to patient leaving prior to being seen by health care provider

== ENCOUNTER 2021-01-15 08:00 | Emergency (ER) | payer MEDICAID ==
[2021-01-15] MEDS ORDERED: HYDROmorphone 1 MG/ML Syringe IVPUSH ONE (08:20)
[2021-01-15] MEDS ORDERED: Ondansetron 4 MG Tab.DIS PO ONE (08:20)
--- NOTE | 2021-01-15 08:26 | EDM.PDOC ---
ED HPI GENERAL MEDICAL PROBLEM - General Chief Complaint: Genitourinary Problem Stated Complaint: AMBULANCE Time Seen by Provider: 01/15/21 08:20 Source of Information: Reports: Patient, RN, RN Notes Reviewed History Limitations: Reports: No Limitations - History of Present Illness INITIAL COMMENTS - FREE TEXT/NARRATIVE: Patient is a 30-year-old male who presents to ER per [place] [facility] with complaint of flank pain and blood in his urine. Patient states the right flank is more painful than the left. States he presented to ER yesterday but the ER was very busy so he did not wait. Patient last saw his primary care provider on to get his pain medications. He does get his pain medications on Mondays and from his primary. Patient states he tried to get into his primary yesterday but she was not in the office. Patient states he has felt recently as though he has to go to the bathroom very badly but is unable to go very much at all. Patient also admits to feeling clammy. Admits to nausea and vomiting. States he last take his ox he is at 630 this morning, has not taken Zofran. Onset: Other (chronic with flares) Bilateral Flank Pain Score (Numeric/FACES): 8 - Related Data Allergies Allergy/AdvReac Type Severity Reaction Status Date / Time amoxicillin [Amoxicillin] Allergy Rash Verified 01/15/21 08:00 bee venom protein (honey bee) Allergy Cannot Verified 01/15/21 08:00 Remember butorphanol [From Stadol] Allergy Hallucinati Verified 01/15/21 08:00 ons haloperidol [From Haldol] Allergy Hallucinati Verified 01/15/21 08:00 ons ketorolac tromethamine Allergy Rash Verified 01/15/21 08:00 [From Toradol] metoclopramide [From Reglan] Allergy Agitation Verified 01/15/21 08:00 promethazine HCl Allergy Hallucinati Verified 01/15/21 08:00 [From Phenergan] ons tramadol HCl [From Ultram] Allergy Rash Verified 01/15/21 08:00 Home Meds: Home Meds Tamsulosin HCl [Flomax] 0.4 mg PO BID 05/30/20 [History] Ondansetron [Zofran] 8 mg PO TID PRN 06/21/20 [History] Docusate Sodium [Colace] 100 mg PO BID PRN 10/21/20 [History] Losartan [Cozaar] 25 mg PO BEDTIME 10/24/20 [History] Naproxen 250 mg PO Q8HR PRN 11/22/20 [History] oxyCODONE HCl/Acetaminophen [Endocet 10-325 mg Tablet] 1 tab PO Q6H PRN 12/19/20 [History] Acetaminophen [Tylenol] 650 mg PO Q4HR PRN 12/28/20 [History] metFORMIN [Glucophage] 500 mg PO BIDMEALS 01/03/21 [History] Past Medical History - Past Health History Medical/Surgical History: Denies Medical/Surgical History HEENT History: Reports: None Cardiovascular History: Reports: None Respiratory History: Reports: None Gastrointestinal History: Reports: Cholelithiasis, Gastritis, GERD Other Gastrointestinal History: gallbladder pain Genitourinary History: Reports: Renal Calculus, Other (See Below) 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 Hematologic History: Reports: None Immunologic History: Reports: None Oncologic (Cancer) History: Reports: None Dermatologic History: Reports: None - Infectious Disease History Infectious Disease History: Reports: Chicken Pox, Novel Coronavirus - Past Surgical History Head Surgeries/Procedures: Reports: None HEENT Surgical History: Reports: None Cardiovascular Surgical History: Reports: None GI Surgical History: Reports: Appendectomy, Cholecystectomy Male Surgical History: Reports: Circumcision Other Male Surgeries/Procedures: Has had kidney biopsy Musculoskeletal Surgical History: Reports: Other (See Below) Other Musculoskeletal Surgeries/Procedures:: left arm Social & Family History - Family History Family Medical History: No Pertinent Family History - Tobacco Use Tobacco Use Status *Q: Never Tobacco User - Caffeine Use Caffeine Use: Reports: Coffee, Energy Drinks, Soda Caffeine Use Comment: 32 oz daily - Recreational Drug Use Recreational Drug Use: Yes Recreational Drug Type: Reports: Marijuana/Hashish - Living Situation & Occupation Living situation: Reports: Single, Alone Occupation: Employed ED ROS GENERAL - Review of Systems Review Of Systems: Comprehensive ROS is negative, except as noted in HPI. ED EXAM, RENAL/ - Physical Exam Exam: See Below Exam Limited By: No Limitations General Appearance: Alert, WD/WN, Mild Distress Eye Exam: Bilateral Eye: EOMI, Normal Inspection Ears: Normal External Exam, Hearing Grossly Normal Nose: Normal Inspection Throat/Mouth: Normal Inspection, Normal Voice, No Airway Compromise Head: Atraumatic, Normocephalic Neck: Normal Inspection, Supple, Non-Tender, Full Range of Motion Respiratory/Chest: No Respiratory Distress, Lungs Clear, Normal Breath Sounds, No Accessory Muscle Use, Chest Non-Tender Cardiovascular: Normal Peripheral Pulses, Regular Rate, Rhythm, No Edema, No Gallop, No JVD, No Murmur, No Rub GI/Abdominal: Normal Bowel Sounds, Soft, Tender (Male) Exam: Deferred Rectal (Males) Exam: Deferred Back Exam: Normal Inspection, Full Range of Motion, CVA Tenderness (L), CVA Tenderness (R) Extremities: Normal Inspection, Normal Range of Motion, Non-Tender, Normal Capillary Refill, No Pedal Edema Neurological: Alert, Oriented, CN II-XII Intact, Normal Cognition, Normal Gait, Normal Reflexes, No Motor/Sensory Deficits Psychiatric: Normal Affect, Normal Mood Skin Exam: Warm, Dry, Intact, Normal Color, No Rash Lymphatic: No Adenopathy Course - Orders/Labs/Meds Labs: Laboratory Tests 01/15/21 01/15/21 01/15/21 Range/Units 08:10 08:10 08:30 WBC 9.7 (5.0-10.0) 10^3/uL RBC 5.32 (4.6-6.2) 10^6/uL Hgb 15.5 (14.0-18.0) g/dL Hct 45.5 (40.0-54.0) % MCV 85.5 (80-100) fL MCH 29.1 (27.0-34.0) pg MCHC 34.1 (33.0-35.0) g/dL Plt Count 316 (150-450) 10^3/uL Neut % (Auto) 72.5 (42.2-75.2) % Lymph % (Auto) 18.8 L (20.5-50.1) % [place] % (Auto) 6.2 (2-8) % Eos % (Auto) 2.2 (1.0-3.0) % Baso % (Auto) 0.3 (0.0-1.0) % Sodium (136-145) mmol/L Potassium (3.5-5.1) mmol/L Chloride (98-107) mmol/L Carbon Dioxide (21-32) mmol/L Anion Gap (7-13) mEq/L BUN (7-18) mg/dL Creatinine (0.70-1.30) mg/dL Est Cr Clr Drug Dosing mL/min Estimated GFR (MDRD) BUN/Creatinine Ratio (No establ ref range) Glucose (70-99) mg/dL Calcium (8.5-10.1) mg/dL Total Bilirubin (0.2-1.0) mg/dL AST (15-37) U/L ALT (16-63) U/L Alkaline Phosphatase (46-116) U/L C-Reactive Protein (0.0-0.9) mg/dL Total Protein (6.4-8.2) g/dL Albumin (3.4-5.0) g/dL Globulin Albumin/Globulin Ratio Urine Color Yellow (YELLOW) Urine Appearance Clear (CLEAR) Urine pH 6.0 (5.0-9.0) Ur Specific [place] >= 1.030 (1.005-1.030) Urine Protein Negative (NEGATIVE) Urine Glucose (UA) Negative (NEGATIVE) Urine Ketones Negative (NEGATIVE) Urine Occult Blood Trace-lysed H (NEGATIVE) Urine Nitrite Negative (NEGATIVE) Urine Bilirubin Negative (NEGATIVE) Urine Urobilinogen 0.2 (0.2-1.0) mg/dL Ur Leukocyte Esterase Negative (NEGATIVE) Urine RBC 0-5 /HPF Urine WBC 0-5 (0-5/HPF) /HPF Ur Epithelial Cells Few (NOT SEEN) /HPF Urine Bacteria Rare (0-FEW/HPF) /HPF Urine Mucus Moderate H (NOT SEEN) /LPF Urine Opiates Screen Negative (NEGATIVE) Ur Oxycodone Screen Positive H (NEGATIVE) Urine Methadone Screen Negative (NEGATIVE) Ur Barbiturates Screen Negative (NEGATIVE) U Tricyclic Antidepress Negative (NEGATIVE) Ur Phencyclidine Scrn Negative (NEGATIVE) Ur Amphetamine Screen Negative (NEGATIVE) U Methamphetamines Scrn Negative (NEGATIVE) Urine MDMA Screen Negative (NEGATIVE) U Benzodiazepines Scrn Negative (NEGATIVE) Urine Cocaine Screen Negative (NEGATIVE) U Marijuana (THC) Screen Positive H (NEGATIVE) 05/22/21 Range/Units 08:30 WBC (5.0-10.0) 10^3/uL RBC (4.6-6.2) 10^6/uL Hgb (14.0-18.0) g/dL Hct (40.0-54.0) % MCV (80-100) fL MCH (27.0-34.0) pg MCHC (33.0-35.0) g/dL Plt Count (150-450) 10^3/uL Neut % (Auto) (42.2-75.2) % Lymph % (Auto) (20.5-50.1) % M[place] % (Auto) (2-8) % Eos % (Auto) (1.0-3.0) % Baso % (Auto) (0.0-1.0) % Sodium 141 (136-145) mmol/L Potassium 4.3 (3.5-5.1) mmol/L Chloride 107 (98-107) mmol/L Carbon Dioxide 25 (21-32) mmol/L Anion Gap 13.3 H (7-13) mEq/L BUN 11 (7-18) mg/dL Creatinine 0.81 (0.70-1.30) mg/dL Est Cr Clr Drug Dosing 147.70 mL/min Estimated GFR (MDRD) > 60 BUN/Creatinine Ratio 13.6 (No establ ref range) Glucose 101 H (70-99) mg/dL Calcium 8.1 L (8.5-10.1) mg/dL Total Bilirubin 0.5 (0.2-1.0) mg/dL AST 12 L (15-37) U/L ALT 36 (16-63) U/L Alkaline Phosphatase 81 (46-116) U/L C-Reactive Protein 0.6 (0.0-0.9) mg/dL Total Protein 7.1 (6.4-8.2) g/dL Albumin 3.6 (3.4-5.0) g/dL Globulin 3.5 Albumin/Globulin Ratio 1.0 Urine Color (YELLOW) Urine Appearance (CLEAR) Urine pH (5.0-9.0) Ur Specific [place] (1.005-1.030) Urine Protein (NEGATIVE) Urine Glucose (UA) (NEGATIVE) Urine Ketones (NEGATIVE) Urine Occult Blood (NEGATIVE) Urine Nitrite (NEGATIVE) Urine Bilirubin (NEGATIVE) Urine Urobilinogen (0.2-1.0) mg/dL Ur Leukocyte Esterase (NEGATIVE) Urine RBC /HPF Urine WBC (0-5/HPF) /HPF Ur Epithelial Cells (NOT SEEN) /HPF Urine Bacteria (0-FEW/HPF) /HPF Urine Mucus (NOT SEEN) /LPF Urine Opiates Screen (NEGATIVE) Ur Oxycodone Screen (NEGATIVE) Urine Methadone Screen (NEGATIVE) Ur Barbiturates Screen (NEGATIVE) U Tricyclic Antidepress (NEGATIVE) Ur Phencyclidine Scrn (NEGATIVE) Ur Amphetamine Screen (NEGATIVE) U Methamphetamines Scrn (NEGATIVE) Urine MDMA Screen (NEGATIVE) U Benzodiazepines Scrn (NEGATIVE) Urine Cocaine Screen (NEGATIVE) U Marijuana (THC) Screen (NEGATIVE) Meds: Medications Discontinued Medications Generic Name Dose Route Start Last Admin Trade Name Freq PRN Reason Stop Dose Admin Hydromorphone HCl 2 mg 01/15/21 08:20 01/15/21 08:41 Hydromorphone 1 Mg/Ml Syringe IVPUSH 01/15/21 08:21 2 mg ONETIME ONE Administration Ondansetron HCl 4 mg 01/15/21 08:20 01/15/21 08:41 Ondansetron 4 Mg Tab.Dis PO 01/15/21 08:21 4 mg ONETIME ONE Administration Departure - Departure Time of Disposition: 09:00 Disposition: Home, Self-Care 01 Condition: Good Clinical Impression: Bilateral flank pain, Loin pain hematuria syndrome Chronic pain Qualifiers: Chronic pain type: chronic pain syndrome Qualified Code(s): G89.4 - Chronic pain syndrome - Discharge Information *PRESCRIPTION DRUG MONITORING PROGRAM REVIEWED*: No *COPY OF PRESCRIPTION DRUG MONITORING REPORT IN PATIENT NICO: No Forms: ED Department Discharge Additional Instructions: Follow up with your primary care facility
[2021-01-15 08:56] LABS: ANION GAP 13.3 mEq/L (7-13); CHLORIDE,CL 107 mmol/L (98-107); SODIUM,NA 141 mmol/L (136-145)
== END 2021-01-15 09:17 | disposition home or self-care (01) ==
LOC: DL.ED 08:00
DX: G89.4 Chronic pain syndrome (principal); R10.9 Unspecified abdominal pain; M54.5 Low back pain; R31.9 Hematuria, unspecified; E66.9 Obesity, unspecified; Z88.5 Allergy status to narcotic agent; Z88.6 Allergy status to analgesic agent; Z88.8 Allergy status to other drugs, medicaments and biological substances; Z91.030 Bee allergy status; Z88.0 Allergy status to penicillin; Z68.42 Body mass index [BMI] 45.0-49.9, adult
CPT/HCPCS: 36415; 80053; 80305-QW; 81001; 85025; 86140; 96374; 99283; 99284-25; A9270-GY; J1170

== ENCOUNTER 2021-01-16 13:33 | Emergency (ER) | payer MEDICAID ==
[2021-01-16 17:09] VITALS: BP 128/80; PULSE 63
--- NOTE | 2021-01-16 17:34 | EDM.PDOC ---
ED HPI GENERAL MEDICAL PROBLEM - General Chief Complaint: Genitourinary Problem Stated Complaint: tendnzan problems Time Seen by Provider: 01/16/21 17:26 Source of Information: Reports: Patient History Limitations: Reports: No Limitations - History of Present Illness INITIAL COMMENTS - FREE TEXT/NARRATIVE: Patient comes to the emergency department today with complaints of his chronic left flank pain form his loin pain hematuria syndrome. His pain is the same as it has always been. He is here requesting his regular dosing of dilaudid that he received almost daily from the ER. He is under chronic pain management in the clinic. He has no symptoms today that are different than normal just his pain. No fever no chills. No chest pain shortness of breath. No cough congestion. No weakness dizziness lightheadedness. No abd nausea or vomiting. He does complain of hematuria although this is chronic for him. No dysuria urinary frequency or pyuria. No black or tarry stools. He has been taking his chronic narcotics as previously. Flank Pain Score (Numeric/FACES): 8 - Related Data Allergies Allergy/AdvReac Type Severity Reaction Status Date / Time amoxicillin [Amoxicillin] Allergy Rash Verified 01/16/21 17:09 bee venom protein (honey bee) Allergy Cannot Verified 01/16/21 17:09 Remember butorphanol [From Stadol] Allergy Hallucinati Verified 01/16/21 17:09 ons haloperidol [From Haldol] Allergy Hallucinati Verified 01/16/21 17:09 ons ketorolac tromethamine Allergy Rash Verified 01/16/21 17:09 [From Toradol] metoclopramide [From Reglan] Allergy Agitation Verified 01/16/21 17:09 promethazine HCl Allergy Hallucinati Verified 01/16/21 17:09 [From Phenergan] ons tramadol HCl [From Ultram] Allergy Rash Verified 01/16/21 17:09 Home Meds: Home Meds Tamsulosin HCl [Flomax] 0.4 mg PO BID 05/30/20 [History] Ondansetron [Zofran] 8 mg PO TID PRN 06/21/20 [History] Docusate Sodium [Colace] 100 mg PO BID PRN 10/21/20 [History] Losartan [Cozaar] 25 mg PO BEDTIME 10/24/20 [History] Naproxen 250 mg PO Q8HR PRN 11/22/20 [History] oxyCODONE HCl/Acetaminophen [Endocet 10-325 mg Tablet] 1 tab PO Q6H PRN 12/19/20 [History] Acetaminophen [Tylenol] 650 mg PO Q4HR PRN 12/28/20 [History] metFORMIN [Glucophage] 500 mg PO BIDMEALS 01/03/21 [History] Past Medical History - Past Health History Medical/Surgical History: Denies Medical/Surgical History HEENT History: Reports: None Cardiovascular History: Reports: None Respiratory History: Reports: None Gastrointestinal History: Reports: Cholelithiasis, Gastritis, GERD Other Gastrointestinal History: gallbladder pain Genitourinary History: Reports: Renal Calculus, Other (See Below) 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 Hematologic History: Reports: None Immunologic History: Reports: None Oncologic (Cancer) History: Reports: None Dermatologic History: Reports: None - Infectious Disease History Infectious Disease History: Reports: Chicken Pox, Novel Coronavirus - Past Surgical History Head Surgeries/Procedures: Reports: None HEENT Surgical History: Reports: None Cardiovascular Surgical History: Reports: None GI Surgical History: Reports: Appendectomy, Cholecystectomy Male Surgical History: Reports: Circumcision Other Male Surgeries/Procedures: Has had kidney biopsy Musculoskeletal Surgical History: Reports: Other (See Below) Other Musculoskeletal Surgeries/Procedures:: left arm Social & Family History - Family History Family Medical History: No Pertinent Family History - Tobacco Use Tobacco Use Status *Q: Never Tobacco User - Caffeine Use Caffeine Use: Reports: Coffee, Soda Caffeine Use Comment: 32 oz daily - Recreational Drug Use Recreational Drug Use: No - Living Situation & Occupation Living situation: Reports: Single, Alone Occupation: Employed ED ROS GENERAL - Review of Systems Review Of Systems: Comprehensive ROS is negative, except as noted in HPI. ED EXAM, RENAL/ - Physical Exam Exam: See Below Exam Limited By: No Limitations General Appearance: Alert, WD/WN, No Apparent Distress Eye Exam: Bilateral Eye: EOMI, PERRL Ears: Normal External Exam Nose: Normal Inspection Throat/Mouth: Normal Inspection Head: Atraumatic, Normocephalic Neck: Normal Inspection, Supple, Non-Tender, Full Range of Motion Respiratory/Chest: No Respiratory Distress, Lungs Clear, No Accessory Muscle Use, Chest Non-Tender Cardiovascular: Normal Peripheral Pulses, Regular Rate, Rhythm GI/Abdominal: Normal Bowel Sounds, Soft, Non-Tender (Male) Exam: Deferred Rectal (Males) Exam: Deferred Back Exam: Full Range of Motion, CVA Tenderness (L). No: CVA Tenderness (R) Extremities: Normal Inspection, Normal Range of Motion, No Pedal Edema, Normal Capillary Refill Neurological: Alert, Oriented, Normal Cognition, No Motor/Sensory Deficits Psychiatric: Normal Affect, Normal Mood Skin Exam: Warm, Dry, Intact, Normal Color, No Rash Course - Vital Signs Last Recorded V/S: Last Vital Signs Temp 98.1 F 01/16/21 17:07 Pulse 63 01/16/21 17:07 Resp 16 01/16/21 17:07 BP 128/80 01/16/21 17:07 Pulse Ox 99 01/16/21 17:07 - Re-Assessments/Exams Free Text/Narrative Re-Assessment/Exam: 01/16/21 17:31 I instructed the patient that we will do labs and a urine to assess for any acute illnesses at this time. He refuses to have any labs or urine completed as well as any diagnostic test. He just wants his pain medicine that he came for and thats it. I explained to the patient that chronic pain is to be managed out of the clinic and not the emergency department that he has perpetuated this reoccurrence to the ED. Please see the patients chart for his almost daily visits to the ED with multiple chronic complaints. I have concerns that there is underlying pathology that could be causing his symptoms with his multiple visits. He refused any labs and testing got up and left the department on his own without any opportunity for AMA discussion. The patient appeared in absolutely no distress his vital signs are stable and he ambulated and left AMA without difficulty. 01/16/21 17:33 Departure - Departure Time of Disposition: 17:20 Disposition: Against Medical Advice 07 Clinical Impression: Chronic pain syndrome - Discharge Information Referrals: Grant Disla [Primary Care Provider] - Additional Instructions: Unable to complete any discharge instructions as the patient left AMA> Sepsis Event Note (ED) - Evaluation Sepsis Screening Result: No Definite Risk - Focused Exam Vital Signs: Vital Signs Temp Pulse Resp BP Pulse Ox 01/16/21 17:07 98.1 F 63 16 128/80 99
== END 2021-01-16 17:27 | disposition left against medical advice (07) ==
LOC: DL.ED 13:33
DX: G89.4 Chronic pain syndrome (principal); E66.9 Obesity, unspecified; Z88.0 Allergy status to penicillin; Z91.030 Bee allergy status; Z88.8 Allergy status to other drugs, medicaments and biological substances; Z88.6 Allergy status to analgesic agent; Z79.899 Other long term (current) drug therapy; Z88.5 Allergy status to narcotic agent
CPT/HCPCS: 99282; 99283

== ENCOUNTER 2021-01-19 10:41 | Emergency (ER) | payer MEDICAID | END 2021-01-19 11:24 | disposition left against medical advice (07) | LOC: DL.ED 10:41 | DX: Z53.21 Procedure and treatment not carried out due to patient leaving prior to being seen by health care provider (principal) ==

== ENCOUNTER 2021-01-23 02:17 | Emergency (ER) | payer MEDICAID ==
[2021-01-23 02:26] VITALS: BP 127/68; PULSE 69
--- NOTE | 2021-01-23 02:29 | EDM.PDOC ---
ED HPI GENERAL MEDICAL PROBLEM - General Chief Complaint: Back Pain or Injury Stated Complaint: kidney problems Time Seen by Provider: 01/23/21 02:38 Source of Information: Reports: Patient, Old Records, RN, RN Notes Reviewed History Limitations: Reports: No Limitations - History of Present Illness INITIAL COMMENTS - FREE TEXT/NARRATIVE: Elvin is a 30 y/o male with a history of loin pain hematuria syndrome following HSP who presents to the ED via personal vehicle with complaints of left flank pain, urinary frequency, nausea, and hematuria. The patient states he had noted a reduction in pain this last week, but felt a flair begin two days ago (the evening of the ). He states he has taken his previously prescribed medications, including Naproxen and Endocet 10/325mg, throughout the day, however he has not taken a dose of the Endocet since last night at 2030. He denies fever, palpitations, vomiting, constipation, or diarrhea. The patient states he met with his PCP last week and has an upcoming appointment in three days, 01/25/21. Bilateral Lower Back Pain Score (Numeric/FACES): 8 - Related Data Allergies Allergy/AdvReac Type Severity Reaction Status Date / Time amoxicillin [Amoxicillin] Allergy Rash Verified 01/23/21 02:28 bee venom protein (honey bee) Allergy Cannot Verified 01/23/21 02:28 Remember butorphanol [From Stadol] Allergy Hallucinati Verified 01/23/21 02:28 ons haloperidol [From Haldol] Allergy Hallucinati Verified 01/23/21 02:28 ons ketorolac tromethamine Allergy Rash Verified 01/23/21 02:28 [From Toradol] metoclopramide [From Reglan] Allergy Agitation Verified 01/23/21 02:28 promethazine HCl Allergy Hallucinati Verified 01/23/21 02:28 [From Phenergan] ons tramadol HCl [From Ultram] Allergy Rash Verified 01/23/21 02:28 Home Meds: Home Meds Tamsulosin HCl [Flomax] 0.4 mg PO BID 05/30/20 [History] Ondansetron [Zofran] 8 mg PO TID PRN 06/21/20 [History] Docusate Sodium [Colace] 100 mg PO BID PRN 10/21/20 [History] Losartan [Cozaar] 25 mg PO BEDTIME 10/24/20 [History] Naproxen 250 mg PO Q8HR PRN 11/22/20 [History] oxyCODONE HCl/Acetaminophen [Endocet 10-325 mg Tablet] 1 tab PO Q6H PRN 12/19/20 [History] Acetaminophen [Tylenol] 650 mg PO Q4HR PRN 12/28/20 [History] metFORMIN [Glucophage] 500 mg PO BIDMEALS 01/03/21 [History] Past Medical History - Past Health History Medical/Surgical History: Denies Medical/Surgical History HEENT History: Reports: None Cardiovascular History: Reports: None Respiratory History: Reports: None Gastrointestinal History: Reports: Cholelithiasis, Gastritis, GERD Other Gastrointestinal History: gallbladder pain Genitourinary History: Reports: Renal Calculus, Other (See Below) 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 Hematologic History: Reports: None Immunologic History: Reports: None Oncologic (Cancer) History: Reports: None Dermatologic History: Reports: None - Infectious Disease History Infectious Disease History: Reports: Chicken Pox, Novel Coronavirus - Past Surgical History Head Surgeries/Procedures: Reports: None HEENT Surgical History: Reports: None Cardiovascular Surgical History: Reports: None GI Surgical History: Reports: Appendectomy, Cholecystectomy Male Surgical History: Reports: Circumcision Other Male Surgeries/Procedures: Has had kidney biopsy Musculoskeletal Surgical History: Reports: Other (See Below) Other Musculoskeletal Surgeries/Procedures:: left arm Social & Family History - Family History Family Medical History: No Pertinent Family History - Caffeine Use Caffeine Use: Reports: Coffee, Soda Caffeine Use Comment: 32 oz daily - Living Situation & Occupation Living situation: Reports: Single, Alone Occupation: Employed ED ROS GENERAL - Review of Systems Review Of Systems: Comprehensive ROS is negative, except as noted in HPI. ED EXAM, RENAL/ - Physical Exam Exam: See Below Exam Limited By: No Limitations General Appearance: Alert, Mild Distress (Flank pain), Obese Eye Exam: Bilateral Eye: EOMI, Normal Inspection, PERRL (3mm) Throat/Mouth: Normal Voice, No Airway Compromise. No: Normal Oropharynx (Dry mucous membranes) Head: Atraumatic, Normocephalic Respiratory/Chest: No Respiratory Distress, Lungs Clear, Normal Breath Sounds, No Accessory Muscle Use, Chest Non-Tender Cardiovascular: Normal Peripheral Pulses, Regular Rate, Rhythm, No Edema, No Gallop, No JVD, No Murmur, No Rub GI/Abdominal: Soft, No Distention, No Abnormal Bruit, No Mass, Pelvis Stable, Tender (To palpation of LLQ, radiates from flank), Abnormal Bowel Sounds (Hypoactive bowel sounds). No: Guarding, Rigid, Rebound (Male) Exam: Deferred Rectal (Males) Exam: Deferred Back Exam: Full Range of Motion, CVA Tenderness (L). No: CVA Tenderness (R) Neurological: Alert, Oriented, CN II-XII Intact, Normal Cognition, Normal Gait, No Motor/Sensory Deficits Psychiatric: Normal Mood, Flat Affect Skin Exam: Warm, Dry, Intact, Normal Color, No Rash. No: Diaphoretic, Ecchymosis, Erythema, Jaundice, Mottled, Pallor, Petechiae Lymphatic: No Adenopathy Course - Vital Signs Last Recorded V/S: Last Vital Signs Temp 96.9 F 01/23/21 02:24 Pulse 69 01/23/21 02:24 Resp 20 01/23/21 02:24 BP 127/68 01/23/21 02:24 Pulse Ox 100 01/23/21 02:24 - Orders/Labs/Meds Labs: Laboratory Tests 01/23/21 Range/Units 02:28 Urine Color [place] (YELLOW) Urine Appearance Slightly cloudy (CLEAR) Urine pH 7.0 (5.0-9.0) Ur Specific [place] 1.025 (1.005-1.030) Urine Protein 30 H (NEGATIVE) Urine Glucose (UA) Negative (NEGATIVE) Urine Ketones Negative (NEGATIVE) Urine Occult Blood Large H (NEGATIVE) Urine Nitrite Negative (NEGATIVE) Urine Bilirubin Negative (NEGATIVE) Urine Urobilinogen 0.2 (0.2-1.0) mg/dL Ur Leukocyte Esterase Negative (NEGATIVE) Urine RBC Semi-packed H /HPF Urine WBC 0-5 (0-5/HPF) /HPF Ur Epithelial Cells Moderate H (NOT SEEN) /HPF Urine Bacteria Moderate H (0-FEW/HPF) /HPF Meds: Medications Discontinued Medications Generic Name Dose Route Start Last Admin Trade Name Freq PRN Reason Stop Dose Admin Ondansetron HCl 4 mg 01/23/21 02:43 01/23/21 02:50 Ondansetron 4 Mg Tab.Dis PO 01/23/21 02:44 4 mg ONETIME ONE Administration Oxycodone/Acetaminophen 2 tab 01/23/21 02:43 01/23/21 02:48 Acetaminophen/Oxycodone 325-5 Mg Tab PO 01/23/21 02:44 2 tab ONETIME ONE Administration Oxycodone/Acetaminophen Confirm 01/23/21 02:49 Acetaminophen/Oxycodone 325-5 Mg Tab Administered 01/23/21 02:50 Dose 1 tab .ROUTE .ST-MED ONE - Re-Assessments/Exams Free Text/Narrative Re-Assessment/Exam: 01/23/21 Discussed findings of examination and UA with patient. Will treat nausea with Zofran ODT and pain with Oxycodone+Acetaminophen 10/650mg. Patient instructed to continue with previously scheduled appointment with PCP on 01/25/21 to discuss ongoing management of chronic pain and plan to meet weight requirements for surgery. Departure - Departure Time of Disposition: 03:01 Disposition: Home, Self-Care 01 Condition: Good Clinical Impression: History of Henoch-Schonlein purpura, Loin pain hematuria syndrome Chronic pain Qualifiers: Chronic pain type: chronic pain syndrome Qualified Code(s): G89.4 - Chronic pain syndrome - Discharge Information *PRESCRIPTION DRUG MONITORING PROGRAM REVIEWED*: Yes *COPY OF PRESCRIPTION DRUG MONITORING REPORT IN PATIENT NICO: Yes (Recent copy placed in chart) Forms: ED Department Discharge Additional Instructions: 1.) Keep appointment with your primary care provider to discuss ongoing pain management and surgical plan. 2.) Drink plenty of water to stay hydrated. 3.) Utilize prescription medications for treatment of chronic pain. Sepsis Event Note (ED) - Evaluation Sepsis Screening Result: No Definite Risk - Focused Exam Vital Signs: Vital Signs Temp Pulse Resp BP Pulse Ox 01/23/21 02:24 96.9 F 69 20 127/68 100
[2021-01-23] MEDS ORDERED: Acetaminophen/oxyCODONE 325-5 MG Tab PO ONE (02:43)
[2021-01-23] MEDS ORDERED: Ondansetron 4 MG Tab.DIS PO ONE (02:43)
[2021-01-23] MEDS ORDERED: Acetaminophen/oxyCODONE 325-5 MG Tab ONE (02:49)
== END 2021-01-23 03:08 | disposition home or self-care (01) ==
LOC: DL.ED 02:17
DX: G89.4 Chronic pain syndrome (principal); M54.5 Low back pain; R31.9 Hematuria, unspecified; E66.9 Obesity, unspecified; Z68.30 Body mass index [BMI] 30.0-30.9, adult; Z88.5 Allergy status to narcotic agent; Z88.6 Allergy status to analgesic agent; Z88.0 Allergy status to penicillin; Z91.030 Bee allergy status
CPT/HCPCS: 81001; 99284; A9270-GY

== ENCOUNTER 2021-01-23 12:47 | Emergency (ER) | payer MEDICAID ==
[2021-01-23 13:27] VITALS: BP 140/85; PULSE 64
--- NOTE | 2021-01-23 14:17 | EDM.PDOC ---
ED HPI GENERAL MEDICAL PROBLEM - General Chief Complaint: Abdominal Pain Stated Complaint: KIDNEYS PASSING BLOOD VOMITING Time Seen by Provider: 01/23/21 14:17 Source of Information: Reports: Patient, Old Records, RN, RN Notes Reviewed History Limitations: Reports: No Limitations - History of Present Illness INITIAL COMMENTS - FREE TEXT/NARRATIVE: Pt presents to ER with c/o severe left flank pain radiating to the LLQ abdomen with grossly bloody urine. He was seen here last night with the same complaint, treated with oxycodone and zofran, but states he had very little relief. Pt has Hx of Loin Pain Hematuria syndrome, and remote Hx of HSP. He has had over 60 ER visits this year for pain related to this chronic issue. He has a pain contract with his PCP and is being referred to pain management, but so far the pain clinic has declined his case. This is a very difficult case, and the pt has been counseled many times regarding the ER and chronic pain management. Currently the case is under review by the hospital cook chief and regional COMPOSITE TECHNICIAN. I have again informed the pt that he needs to f/u in clinic for his ongoing pain management. Duration: Chronic, Recurring Location: Reports: Abdomen Quality: Reports: Same as Previous Episode Severity: Severe Improves with: Reports: None Worsens with: Reports: None Associated Symptoms: Reports: No Other Symptoms Abdominal Pain Score (Numeric/FACES): 9 - Related Data Allergies Allergy/AdvReac Type Severity Reaction Status Date / Time amoxicillin [Amoxicillin] Allergy Rash Verified 01/23/21 02:28 bee venom protein (honey bee) Allergy Cannot Verified 01/23/21 02:28 Remember butorphanol [From Stadol] Allergy Hallucinati Verified 01/23/21 02:28 ons haloperidol [From Haldol] Allergy Hallucinati Verified 01/23/21 02:28 ons ketorolac tromethamine Allergy Rash Verified 01/23/21 02:28 [From Toradol] metoclopramide [From Reglan] Allergy Agitation Verified 01/23/21 02:28 promethazine HCl Allergy Hallucinati Verified 01/23/21 02:28 [From Phenergan] ons tramadol HCl [From Ultram] Allergy Rash Verified 01/23/21 02:28 Home Meds: Home Meds Tamsulosin HCl [Flomax] 0.4 mg PO BID 05/30/20 [History] Ondansetron [Zofran] 8 mg PO TID PRN 06/21/20 [History] Docusate Sodium [Colace] 100 mg PO BID PRN 10/21/20 [History] Losartan [Cozaar] 25 mg PO BEDTIME 10/24/20 [History] Naproxen 250 mg PO Q8HR PRN 11/22/20 [History] oxyCODONE HCl/Acetaminophen [Endocet 10-325 mg Tablet] 1 tab PO Q6H PRN 12/19/20 [History] Acetaminophen [Tylenol] 650 mg PO Q4HR PRN 12/28/20 [History] metFORMIN [Glucophage] 500 mg PO BIDMEALS 01/03/21 [History] Past Medical History - Past Health History Medical/Surgical History: Denies Medical/Surgical History HEENT History: Reports: None Cardiovascular History: Reports: None Respiratory History: Reports: None Gastrointestinal History: Reports: Cholelithiasis, Gastritis, GERD Other Gastrointestinal History: gallbladder pain Genitourinary History: Reports: Renal Calculus, Other (See Below) 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 Hematologic History: Reports: None Immunologic History: Reports: None Oncologic (Cancer) History: Reports: None Dermatologic History: Reports: None - Infectious Disease History Infectious Disease History: Reports: Chicken Pox, Novel Coronavirus - Past Surgical History Head Surgeries/Procedures: Reports: None HEENT Surgical History: Reports: None Cardiovascular Surgical History: Reports: None GI Surgical History: Reports: Appendectomy, Cholecystectomy Male Surgical History: Reports: Circumcision Other Male Surgeries/Procedures: Has had kidney biopsy Musculoskeletal Surgical History: Reports: Other (See Below) Other Musculoskeletal Surgeries/Procedures:: left arm Social & Family History - Family History Family Medical History: No Pertinent Family History - Tobacco Use Tobacco Use Status *Q: Current Status Unknown - Caffeine Use Caffeine Use: Reports: Soda Caffeine Use Comment: 32 oz daily - Recreational Drug Use Recreational Drug Use: Yes Recreational Drug Type: Reports: Marijuana/Hashish Recreational Drug Use Frequency: Daily - Living Situation & Occupation Living situation: Reports: Single, Alone Occupation: Employed ED ROS GENERAL - Review of Systems Review Of Systems: Comprehensive ROS is negative, except as noted in HPI. ED EXAM, RENAL/ - Physical Exam Exam: See Below Exam Limited By: No Limitations General Appearance: Alert, Obese, Other (Uncomfortable appearing). No: Active Emesis Eye Exam: Bilateral Eye: Normal Inspection (No scleral icterus) Throat/Mouth: Normal Voice, No Airway Compromise Head: Atraumatic, Normocephalic Respiratory/Chest: No Respiratory Distress, Lungs Clear Cardiovascular: Regular Rate, Rhythm GI/Abdominal: Normal Bowel Sounds, Soft, Tender (LLQ). No: Guarding, Rigid, Rebound Back Exam: Full Range of Motion, CVA Tenderness (L). No: CVA Tenderness (R), Vertebral Tenderness Neurological: Alert, Oriented, No Motor/Sensory Deficits Psychiatric: Depressed Mood, Flat Affect Skin Exam: Warm, Dry, Intact, Normal Color, No Rash Course - Vital Signs Last Recorded V/S: Last Vital Signs Temp 97.5 F 01/23/21 13:24 Pulse 64 01/23/21 13:24 Resp 14 01/23/21 13:24 BP 140/85 01/23/21 13:24 Pulse Ox 100 01/23/21 13:24 - Orders/Labs/Meds Orders: Active Orders 24 hr Category Date Time Status UA W/MICROSCOPIC [URIN] Stat Lab 01/23/21 13:30 Results Labs: Laboratory Tests 01/23/21 Range/Units 13:30 Urine Color [place] (YELLOW) Urine Appearance Turbid (CLEAR) Urine pH 6.0 (5.0-9.0) Ur Specific [place] >= 1.030 (1.005-1.030) Urine Protein 30 H (NEGATIVE) Urine Glucose (UA) Negative (NEGATIVE) Urine Ketones Negative (NEGATIVE) Urine Occult Blood Large H (NEGATIVE) Urine Nitrite Negative (NEGATIVE) Urine Bilirubin Negative (NEGATIVE) Urine Urobilinogen 0.2 (0.2-1.0) mg/dL Ur Leukocyte Esterase Negative (NEGATIVE) Meds: Medications Discontinued Medications Generic Name Dose Route Start Last Admin Trade Name Freq PRN Reason Stop Dose Admin Hydromorphone HCl 2 mg 01/23/21 14:27 Hydromorphone 1 Mg/Ml Syringe IM 01/23/21 14:28 ONETIME ONE Ondansetron HCl 4 mg 01/23/21 14:27 Ondansetron 4 Mg Tab.Dis PO 01/23/21 14:28 ONETIME ONE Departure - Departure Time of Disposition: 14:37 Disposition: Home, Self-Care 01 Condition: Fair Clinical Impression: Loin pain hematuria syndrome, History of Henoch-Schonlein purpura - Discharge Information *PRESCRIPTION DRUG MONITORING PROGRAM REVIEWED*: No *COPY OF PRESCRIPTION DRUG MONITORING REPORT IN PATIENT NICO: No Instructions: Hematuria, Adult Forms: ED Department Discharge Additional Instructions: Follow up in clinic Sunday as planned. Inform your doctor that the Emergency Department may be required to stop using injectable controlled medications for your chronic condition. Sepsis Event Note (ED) - Evaluation Sepsis Screening Result: No Definite Risk - Focused Exam Vital Signs: Vital Signs Temp Pulse Resp BP Pulse Ox 01/23/21 13:24 97.5 F 64 14 140/85 100 - My Orders Last 24 Hours: My Active Orders 01/23/21 13:30 UA W/MICROSCOPIC [URIN] Stat - Assessment/Plan Last 24 Hours: My Active Orders 01/23/21 13:30 UA W/MICROSCOPIC [URIN] Stat
[2021-01-23] MEDS ORDERED: HYDROmorphone 1 MG/ML Syringe IM ONE (14:27)
[2021-01-23] MEDS ORDERED: Ondansetron 4 MG Tab.DIS PO ONE (14:27)
== END 2021-01-23 14:54 | disposition home or self-care (01) ==
LOC: DL.ED 12:47
DX: M54.5 Low back pain (principal); R31.9 Hematuria, unspecified; E66.9 Obesity, unspecified; Z68.42 Body mass index [BMI] 45.0-49.9, adult; Z86.16 Personal history of COVID-19; Z88.0 Allergy status to penicillin; Z91.030 Bee allergy status; Z88.8 Allergy status to other drugs, medicaments and biological substances; Z88.5 Allergy status to narcotic agent; Z79.899 Other long term (current) drug therapy
CPT/HCPCS: 81001; 96372; 99283; 99284; A9270-GY; J1170

== ENCOUNTER 2021-01-24 09:18 | Emergency (ER) | payer MEDICAID ==
--- NOTE | 2021-01-24 09:31 | EDM.PDOC ---
ED HPI GENERAL MEDICAL PROBLEM - General Chief Complaint: Flank Pain Stated Complaint: VOMITING AND KIDNEY STONES Time Seen by Provider: 01/24/21 09:32 Source of Information: Reports: Patient, Old Records, RN, RN Notes Reviewed History Limitations: Reports: No Limitations - History of Present Illness INITIAL COMMENTS - FREE TEXT/NARRATIVE: Pt presents to ER with c/o severe left flank pain radiating to the LLQ abdomen with grossly bloody urine. He was seen here last night with the same complaint, treated with oxycodone and zofran, but states he had very little relief. Pt has Hx of Loin Pain Hematuria syndrome, and remote Hx of HSP. He has had over 60 ER visits this year for pain related to this chronic issue. He has a pain contract with his PCP and is being referred to pain management, but so far the pain clinic has declined his case. This is a very difficult case, and the pt has been counseled many times regarding the ER and chronic pain management. Currently the case is under review by the hospital order dispatcher chief and regional SUPERINTENDENT CEMETERY. I have again for the second time in two days informed the pt that he needs to f/u in clinic for his ongoing pain management. Pt claims he has an appointment in clinic tomorrow with Beto his BANKRUPTCY LEGAL ASSISTANT at 1330HRS, and will discuss his treatment plan and ER usage with her then. Duration: Chronic, Recurring Location: Reports: Abdomen, Back Quality: Reports: Same as Previous Episode Severity: Severe Improves with: Reports: None Worsens with: Reports: None Associated Symptoms: Reports: No Other Symptoms Treatments DISCOVERY MANAGER: Reports: Other Medication(s) Abdominal Pain Score (Numeric/FACES): 10 - Related Data Allergies Allergy/AdvReac Type Severity Reaction Status Date / Time amoxicillin [Amoxicillin] Allergy Rash Verified 01/23/21 02:28 bee venom protein (honey bee) Allergy Cannot Verified 01/23/21 02:28 Remember butorphanol [From Stadol] Allergy Hallucinati Verified 01/23/21 02:28 ons haloperidol [From Haldol] Allergy Hallucinati Verified 01/23/21 02:28 ons ketorolac tromethamine Allergy Rash Verified 01/23/21 02:28 [From Toradol] metoclopramide [From Reglan] Allergy Agitation Verified 01/23/21 02:28 promethazine HCl Allergy Hallucinati Verified 01/23/21 02:28 [From Phenergan] ons tramadol HCl [From Ultram] Allergy Rash Verified 01/23/21 02:28 Home Meds: Home Meds Tamsulosin HCl [Flomax] 0.4 mg PO BID 05/30/20 [History] Ondansetron [Zofran] 8 mg PO TID PRN 06/21/20 [History] Docusate Sodium [Colace] 100 mg PO BID PRN 10/21/20 [History] Losartan [Cozaar] 25 mg PO BEDTIME 10/24/20 [History] Naproxen 250 mg PO Q8HR PRN 11/22/20 [History] oxyCODONE HCl/Acetaminophen [Endocet 10-325 mg Tablet] 1 tab PO Q6H PRN 12/19/20 [History] Acetaminophen [Tylenol] 650 mg PO Q4HR PRN 12/28/20 [History] metFORMIN [Glucophage] 500 mg PO BIDMEALS 01/03/21 [History] Past Medical History - Past Health History Medical/Surgical History: Denies Medical/Surgical History HEENT History: Reports: None Cardiovascular History: Reports: None Respiratory History: Reports: None Gastrointestinal History: Reports: Cholelithiasis, Gastritis, GERD Other Gastrointestinal History: gallbladder pain Genitourinary History: Reports: Renal Calculus, Other (See Below) 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 Hematologic History: Reports: None Immunologic History: Reports: None Oncologic (Cancer) History: Reports: None Dermatologic History: Reports: None - Infectious Disease History Infectious Disease History: Reports: Chicken Pox, Novel Coronavirus - Past Surgical History Head Surgeries/Procedures: Reports: None HEENT Surgical History: Reports: None Cardiovascular Surgical History: Reports: None GI Surgical History: Reports: Appendectomy, Cholecystectomy Male Surgical History: Reports: Circumcision Other Male Surgeries/Procedures: Has had kidney biopsy Musculoskeletal Surgical History: Reports: Other (See Below) Other Musculoskeletal Surgeries/Procedures:: left arm Social & Family History - Family History Family Medical History: No Pertinent Family History - Caffeine Use Caffeine Use: Reports: Soda Caffeine Use Comment: 32 oz daily - Living Situation & Occupation Living situation: Reports: Single, Alone Occupation: Employed ED ROS GENERAL - Review of Systems Review Of Systems: Comprehensive ROS is negative, except as noted in HPI. ED EXAM, RENAL/ - Physical Exam Exam: See Below Exam Limited By: No Limitations General Appearance: Alert, WD/WN, No Apparent Distress, Obese Throat/Mouth: Normal Voice, No Airway Compromise Head: Atraumatic, Normocephalic Respiratory/Chest: No Respiratory Distress, Lungs Clear, Normal Breath Sounds, No Accessory Muscle Use, Chest Non-Tender Cardiovascular: Regular Rate, Rhythm, No Edema GI/Abdominal: Normal Bowel Sounds, Soft, No Distention, Tender (at LLQ). No: Guarding, Rigid, Rebound Back Exam: Full Range of Motion, CVA Tenderness (L). No: CVA Tenderness (R), Vertebral Tenderness Extremities: Normal Inspection Neurological: Alert, Oriented, No Motor/Sensory Deficits Psychiatric: Normal Mood Skin Exam: Warm, Dry, Intact, Normal Color, No Rash. No: Ecchymosis, Jaundice, Petechiae, Rash Course - Vital Signs Last Recorded V/S: Last Vital Signs Temp 97.5 F 01/24/21 09:40 Pulse 65 01/24/21 09:40 Resp 14 01/24/21 09:40 BP 124/72 01/24/21 09:40 Pulse Ox 99 01/24/21 09:40 - Orders/Labs/Meds Meds: Medications Discontinued Medications Generic Name Dose Route Start Last Admin Trade Name Freq PRN Reason Stop Dose Admin Hydromorphone HCl 2 mg 01/24/21 09:39 Hydromorphone 1 Mg/Ml Syringe IM 01/24/21 09:40 ONETIME ONE Ondansetron HCl 8 mg 01/24/21 09:39 Ondansetron 4 Mg Tab.Dis PO 01/24/21 09:40 ONETIME ONE - Re-Assessments/Exams Free Text/Narrative Re-Assessment/Exam: 01/24/21 I informed the pt that he must f/u in clinic for pain management, and the he will no longer be able to receive injectable/IV controlled substance for chronic pain management in the ER. Pt acknowledges this, and agrees to seek help through a pain management clinic as soon as the referral goes through. He claims to have an appt. with his local doctor this week. Departure - Departure Time of Disposition: 10:00 Disposition: Home, Self-Care 01 Condition: Good Clinical Impression: Loin pain hematuria syndrome, History of Henoch-Schonlein purpura, Flank pain - Discharge Information *PRESCRIPTION DRUG MONITORING PROGRAM REVIEWED*: No *COPY OF PRESCRIPTION DRUG MONITORING REPORT IN PATIENT NICO: No Instructions: Flank Pain, Adult Forms: ED Department Discharge Additional Instructions: Follow up in clinic tomorrow for ongoing pain management. Inform your clinic doctor that the ER will be placing restrictions and strict limitations on controlled substance medications being administered or prescribed in the ER. Sepsis Event Note (ED) - Focused Exam Vital Signs: Vital Signs Temp Pulse Resp BP Pulse Ox 01/24/21 09:40 97.5 F 65 14 124/72 99
[2021-01-24] MEDS ORDERED: HYDROmorphone 1 MG/ML Syringe IM ONE (09:39)
[2021-01-24] MEDS ORDERED: Ondansetron 4 MG Tab.DIS PO ONE (09:39)
[2021-01-24 09:43] VITALS: BP 124/72; PULSE 65
[2021-01-24] MEDS ORDERED: HYDROmorphone 1 MG/ML Syringe ONE (10:02)
== END 2021-01-24 10:11 | disposition home or self-care (01) ==
LOC: DL.ED 09:18
DX: M54.5 Low back pain (principal); R31.9 Hematuria, unspecified; E66.9 Obesity, unspecified; Z68.30 Body mass index [BMI] 30.0-30.9, adult; Z88.0 Allergy status to penicillin; Z91.030 Bee allergy status; Z88.5 Allergy status to narcotic agent; Z88.6 Allergy status to analgesic agent; Z87.2 Personal history of diseases of the skin and subcutaneous tissue
CPT/HCPCS: 96372; 99283; A9270-GY; J1170

== ENCOUNTER 2021-02-01 08:58 | Emergency (ER) | payer MEDICAID ==
--- NOTE | 2021-02-01 09:13 | EDM.PDOC ---
ED HPI GENERAL MEDICAL PROBLEM - General Chief Complaint: Flank Pain Stated Complaint: [id number] FLANK PAIN AND VOMITING Time Seen by Provider: 02/01/21 09:07 Source of Information: Reports: Patient, Old Records, Provider (Dr. Jung), RN, RN Notes Reviewed History Limitations: Reports: No Limitations - History of Present Illness INITIAL COMMENTS - FREE TEXT/NARRATIVE: Pt presents to ER from home by POV with c/o severe left flank pain, hematuria, and vomiting. Pt has Hx of same symptoms chronically recurring for the past 2 years. Hx of HSP and Loin Pain Hematuria syndrome. Pt denies any new symptoms, fever, chills, or rash. Pt has been monitored due to opiate dependence and use of ER for chronic pain. I called Dr. Jung before seeing the pt today. Dr. Jung states that the pt has been fired from [facility]'s practice due to refusal to comply with his pain management contract. Pt states he was out of town and missed an appointment. Pt claims he will be following up at [facility] with the urology transplant team this month. Duration: Chronic, Recurring Location: Reports: Other (Left flank) Quality: Reports: Same as Previous Episode Severity: Severe Improves with: Reports: None Worsens with: Reports: None Associated Symptoms: Reports: No Other Symptoms Treatments OFFICE CORRESPONDENT: Reports: Acetaminophen Flank Pain Score (Numeric/FACES): 8 - Related Data Allergies Allergy/AdvReac Type Severity Reaction Status Date / Time amoxicillin [Amoxicillin] Allergy Rash Verified 02/01/21 09:15 bee venom protein (honey bee) Allergy Cannot Verified 02/01/21 09:15 Remember butorphanol [From Stadol] Allergy Hallucinati Verified 02/01/21 09:15 ons haloperidol [From Haldol] Allergy Hallucinati Verified 02/01/21 09:15 ons ketorolac tromethamine Allergy Rash Verified 02/01/21 09:15 [From Toradol] metoclopramide [From Reglan] Allergy Agitation Verified 02/01/21 09:15 promethazine HCl Allergy Hallucinati Verified 02/01/21 09:15 [From Phenergan] ons tramadol HCl [From Ultram] Allergy Rash Verified 02/01/21 09:15 Home Meds: Home Meds Tamsulosin HCl [Flomax] 0.4 mg PO BID 05/30/20 [History] Ondansetron [Zofran] 8 mg PO TID PRN 06/21/20 [History] Docusate Sodium [Colace] 100 mg PO BID PRN 10/21/20 [History] Losartan [Cozaar] 25 mg PO BEDTIME 10/24/20 [History] Acetaminophen [Tylenol] 650 mg PO Q4HR PRN 12/28/20 [History] Past Medical History - Past Health History Medical/Surgical History: Denies Medical/Surgical History HEENT History: Reports: None Cardiovascular History: Reports: None Respiratory History: Reports: None Gastrointestinal History: Reports: Cholelithiasis, Gastritis, GERD Other Gastrointestinal History: gallbladder pain Genitourinary History: Reports: Renal Calculus, Other (See Below) 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 Hematologic History: Reports: None Immunologic History: Reports: None Oncologic (Cancer) History: Reports: None Dermatologic History: Reports: None - Infectious Disease History Infectious Disease History: Reports: Chicken Pox, Novel Coronavirus - Past Surgical History Head Surgeries/Procedures: Reports: None HEENT Surgical History: Reports: None Cardiovascular Surgical History: Reports: None GI Surgical History: Reports: Appendectomy, Cholecystectomy Male Surgical History: Reports: Circumcision Other Male Surgeries/Procedures: Has had kidney biopsy Musculoskeletal Surgical History: Reports: Other (See Below) Other Musculoskeletal Surgeries/Procedures:: left arm Social & Family History - Family History Family Medical History: No Pertinent Family History - Caffeine Use Caffeine Use: Reports: Soda Caffeine Use Comment: 32 oz daily - Living Situation & Occupation Living situation: Reports: Single, Alone Occupation: Employed ED ROS GENERAL - Review of Systems Review Of Systems: Comprehensive ROS is negative, except as noted in HPI. ED EXAM, RENAL/ - Physical Exam Exam: See Below Exam Limited By: No Limitations General Appearance: Alert, No Apparent Distress, Obese Nose: Normal Inspection Throat/Mouth: Normal Lips, Normal Voice, No Airway Compromise Head: Atraumatic, Normocephalic Neck: Normal Inspection Respiratory/Chest: No Respiratory Distress, Lungs Clear, Normal Breath Sounds, No Accessory Muscle Use, Chest Non-Tender Cardiovascular: Regular Rate, Rhythm GI/Abdominal: Normal Bowel Sounds, Soft, Tender (LLQ) (Male) Exam: Deferred Rectal (Males) Exam: Deferred Back Exam: Full Range of Motion, CVA Tenderness (L). No: CVA Tenderness (R), Vertebral Tenderness Extremities: Normal Inspection Neurological: Alert, Oriented, No Motor/Sensory Deficits Psychiatric: Normal Affect, Depressed Mood Skin Exam: Warm, Dry, Intact, Normal Color, No Rash Course - Vital Signs Last Recorded V/S: Last Vital Signs Temp 97.6 F 02/01/21 09:11 Pulse 73 02/01/21 09:11 Resp 12 02/01/21 09:11 BP 137/76 02/01/21 09:11 Pulse Ox 99 02/01/21 09:11 - Orders/Labs/Meds Orders: Active Orders 24 hr Category Date Time Status HYDROmorphone [Dilaudid] Med 02/01/21 09:19 Once 1 mg IM ONETIME ONE Ondansetron [Zofran ODT] Med 02/01/21 09:18 Once 8 mg PO ONETIME ONE Medication Orders Hydromorphone HCl (Hydromorphone 1 Mg/Ml Syringe) 1 mg IM ONETIME ONE Stop: 02/01/21 09:20 Ondansetron HCl (Ondansetron 4 Mg Tab.Dis) 8 mg PO ONETIME ONE Stop: 02/01/21 09:19 Meds: Medications Generic Name Dose Route Start Last Admin Trade Name Freq PRN Reason Stop Dose Admin Hydromorphone HCl 1 mg 02/01/21 09:19 Hydromorphone 1 Mg/Ml Syringe IM 02/01/21 09:20 ONETIME ONE Ondansetron HCl 8 mg 02/01/21 09:18 Ondansetron 4 Mg Tab.Dis PO 02/01/21 09:19 ONETIME ONE Departure - Departure Time of Disposition: 09:50 Disposition: Home, Self-Care 01 Condition: Good Clinical Impression: Loin pain hematuria syndrome, History of Henoch-Schonlein purpura, Left flank pain Hematuria Qualifiers: Hematuria type: unspecified type Qualified Code(s): R31.9 - Hematuria, unspecified - Discharge Information *PRESCRIPTION DRUG MONITORING PROGRAM REVIEWED*: No *COPY OF PRESCRIPTION DRUG MONITORING REPORT IN PATIENT NICO: No Instructions: Flank Pain, Adult Forms: ED Department Discharge Additional Instructions: Follow up with the specialist at [facility] as planned. Sepsis Event Note (ED) - Focused Exam Vital Signs: Vital Signs Temp Pulse Resp BP Pulse Ox 02/01/21 09:11 97.6 F 73 12 137/76 99 - My Orders Last 24 Hours: My Active Orders 02/01/21 09:18 Ondansetron [Zofran ODT] 8 mg PO ONETIME ONE 02/01/21 09:19 HYDROmorphone [Dilaudid] 1 mg IM ONETIME ONE - Assessment/Plan Last 24 Hours: My Active Orders 02/01/21 09:18 Ondansetron [Zofran ODT] 8 mg PO ONETIME ONE 02/01/21 09:19 HYDROmorphone [Dilaudid] 1 mg IM ONETIME ONE
[2021-02-01 09:15] VITALS: BP 137/76; PULSE 73
[2021-02-01] MEDS ORDERED: Ondansetron 4 MG Tab.DIS PO ONE (09:18)
[2021-02-01] MEDS ORDERED: HYDROmorphone 1 MG/ML Syringe IM ONE (09:19)
== END 2021-02-01 09:42 | disposition home or self-care (01) ==
LOC: DL.ED 08:58
DX: M54.5 Low back pain (principal); R31.9 Hematuria, unspecified; Z87.2 Personal history of diseases of the skin and subcutaneous tissue; E66.9 Obesity, unspecified; Z68.30 Body mass index [BMI] 30.0-30.9, adult; Z88.0 Allergy status to penicillin; Z91.030 Bee allergy status; Z88.5 Allergy status to narcotic agent; Z88.6 Allergy status to analgesic agent
CPT/HCPCS: 96372; 99283; A9270-GY; J1170

== ENCOUNTER 2021-02-03 15:23 | Emergency (ER) | payer MEDICAID ==
[2021-02-03] MEDS ORDERED: Ondansetron 4 MG Tab.DIS PO ONE (15:40)
[2021-02-03] MEDS ORDERED: HYDROmorphone 1 MG/ML Syringe IM ONE (15:40)
[2021-02-03 15:43] VITALS: BP 119/64; PULSE 72
--- NOTE | 2021-02-03 15:50 | EDM.PDOC ---
Scribed by Dian Mendes 02/03/21 2110 for Jovan Villaseñor MD ED HPI GENERAL MEDICAL PROBLEM - General Chief Complaint: Genitourinary Problem Stated Complaint: KIDNEY PAIN Time Seen by Provider: 02/03/21 15:40 Source of Information: Reports: Patient, RN, RN Notes Reviewed History Limitations: Reports: No Limitations - History of Present Illness INITIAL COMMENTS - FREE TEXT/NARRATIVE: Pt presents to ER from home by POV with c/o severe left flank pain, hematuria, and vomiting. Pt has Hx of same symptoms chronically recurring for the past 2 years. Hx of HSP and Loin Pain Hematuria syndrome. Pt denies any new symptoms, fever, chills, or rash. Pt has been monitored due to opiate dependence and use of ER for chronic pain. Dr. Jung states that the pt has been fired from [facility]'s practice due to refusal to comply with his pain management contract. Pt states he was out of town and missed an appointment. Pt claims he will be following up at [facility] with the urology transplant team this month. Duration: Chronic, Recurring Location: Reports: Abdomen, Other (Left flank) Quality: Reports: Same as Previous Episode Severity: Severe Improves with: Reports: None Worsens with: Reports: None Associated Symptoms: Reports: No Other Symptoms left flank Pain Score (Numeric/FACES): 8 - Related Data Allergies Allergy/AdvReac Type Severity Reaction Status Date / Time amoxicillin [Amoxicillin] Allergy Rash Verified 02/03/21 15:46 bee venom protein (honey bee) Allergy Cannot Verified 02/03/21 15:46 Remember butorphanol [From Stadol] Allergy Hallucinati Verified 02/03/21 15:46 ons haloperidol [From Haldol] Allergy Hallucinati Verified 02/03/21 15:46 ons ketorolac tromethamine Allergy Rash Verified 02/03/21 15:46 [From Toradol] metoclopramide [From Reglan] Allergy Agitation Verified 02/03/21 15:46 promethazine HCl Allergy Hallucinati Verified 02/03/21 15:46 [From Phenergan] ons tramadol HCl [From Ultram] Allergy Rash Verified 02/03/21 15:46 Home Meds: Home Meds Tamsulosin HCl [Flomax] 0.4 mg PO BID 05/30/20 [History] Ondansetron [Zofran] 8 mg PO TID PRN 06/21/20 [History] Docusate Sodium [Colace] 100 mg PO BID PRN 10/21/20 [History] Losartan [Cozaar] 25 mg PO BEDTIME 10/24/20 [History] Acetaminophen [Tylenol] 650 mg PO Q4HR PRN 12/28/20 [History] Past Medical History - Past Health History Medical/Surgical History: Denies Medical/Surgical History HEENT History: Reports: None Cardiovascular History: Reports: None Respiratory History: Reports: None Gastrointestinal History: Reports: Cholelithiasis, Gastritis, GERD Other Gastrointestinal History: gallbladder pain Genitourinary History: Reports: Renal Calculus, Other (See Below) 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 Hematologic History: Reports: None Immunologic History: Reports: None Oncologic (Cancer) History: Reports: None Dermatologic History: Reports: None - Infectious Disease History Infectious Disease History: Reports: Chicken Pox, Novel Coronavirus - Past Surgical History Head Surgeries/Procedures: Reports: None HEENT Surgical History: Reports: None Cardiovascular Surgical History: Reports: None GI Surgical History: Reports: Appendectomy, Cholecystectomy Male Surgical History: Reports: Circumcision Other Male Surgeries/Procedures: Has had kidney biopsy Musculoskeletal Surgical History: Reports: Other (See Below) Other Musculoskeletal Surgeries/Procedures:: left arm Social & Family History - Family History Family Medical History: No Pertinent Family History - Caffeine Use Caffeine Use: Reports: Coffee, Energy Drinks, Soda Caffeine Use Comment: 32 oz daily - Living Situation & Occupation Living situation: Reports: Single, Alone Occupation: Employed ED ROS GENERAL - Review of Systems Review Of Systems: Comprehensive ROS is negative, except as noted in HPI. ED EXAM, RENAL/ - Physical Exam Exam: See Below Exam Limited By: No Limitations General Appearance: Alert, No Apparent Distress, Obese Eye Exam: Bilateral Eye: Normal Inspection Nose: Normal Inspection Throat/Mouth: Normal Inspection Head: Atraumatic, Normocephalic Respiratory/Chest: No Respiratory Distress, Lungs Clear Cardiovascular: Regular Rate, Rhythm GI/Abdominal: Normal Bowel Sounds, Soft, Tender (LLQ/LUQ). No: Guarding, Rigid, Rebound (Male) Exam: Deferred Rectal (Males) Exam: Deferred Back Exam: Full Range of Motion, CVA Tenderness (L). No: CVA Tenderness (R), Vertebral Tenderness Extremities: Normal Inspection Neurological: Alert, Oriented, No Motor/Sensory Deficits Psychiatric: Normal Mood Skin Exam: Warm, Dry, Intact, Normal Color, No Rash. No: Ecchymosis, Jaundice, Petechiae Course - Vital Signs Last Recorded V/S: Last Vital Signs Temp 97.5 F 02/03/21 15:41 Pulse 72 02/03/21 15:41 Resp 18 02/03/21 15:41 BP 119/64 02/03/21 15:41 Pulse Ox 99 02/03/21 15:41 - Orders/Labs/Meds Orders: Active Orders 24 hr Category Date Time Status DRUG SCREEN URINE BIORAD [URCHEM] Stat Lab 02/03/21 15:41 Ordered UA RFX MARGARITA AND CULT IF INDIC [URIN] Stat Lab 02/03/21 15:41 Ordered Meds: Medications Discontinued Medications Generic Name Dose Route Start Last Admin Trade Name Freq PRN Reason Stop Dose Admin Hydromorphone HCl 2 mg 02/03/21 15:40 Hydromorphone 1 Mg/Ml Syringe IM 02/03/21 15:41 ONETIME ONE Ondansetron HCl 8 mg 02/03/21 15:40 Ondansetron 4 Mg Tab.Dis PO 02/03/21 15:41 ONETIME ONE Departure - Departure Time of Disposition: 16:00 Disposition: Home, Self-Care 01 Condition: Good Clinical Impression: Loin pain hematuria syndrome, History of Henoch-Schonlein purpura, Left flank pain - Discharge Information *PRESCRIPTION DRUG MONITORING PROGRAM REVIEWED*: No *COPY OF PRESCRIPTION DRUG MONITORING REPORT IN PATIENT NICO: No Instructions: Flank Pain, Adult Forms: ED Department Discharge Additional Instructions: Follow up in clinic for medication management. Sepsis Event Note (ED) - Focused Exam Vital Signs: Vital Signs Temp Pulse Resp BP Pulse Ox 02/03/21 15:41 97.5 F 72 18 119/64 99 - My Orders Last 24 Hours: My Active Orders 02/03/21 15:41 DRUG SCREEN URINE BIORAD [URCHEM] Stat UA RFX MARGARITA AND CULT IF INDIC [URIN] Stat - Assessment/Plan Last 24 Hours: My Active Orders 02/03/21 15:41 DRUG SCREEN URINE BIORAD [URCHEM] Stat UA RFX MARGARITA AND CULT IF INDIC [URIN] Stat I have read and agree with the documentation that has been completed regarding this visit. By signing this record, I attest that the documentation was completed in my physical presence and is an accurate record of the encounter.
== END 2021-02-03 16:21 | disposition home or self-care (01) ==
LOC: DL.ED 15:23
DX: M54.5 Low back pain (principal); R31.9 Hematuria, unspecified; R10.9 Unspecified abdominal pain; E66.9 Obesity, unspecified; Z87.2 Personal history of diseases of the skin and subcutaneous tissue; Z68.30 Body mass index [BMI] 30.0-30.9, adult; Z88.0 Allergy status to penicillin; Z91.030 Bee allergy status; Z88.6 Allergy status to analgesic agent; Z88.5 Allergy status to narcotic agent; Z79.899 Other long term (current) drug therapy
CPT/HCPCS: 80305-QW; 81001; 96372; 99283; 99284; A9270-GY; J1170

== ENCOUNTER 2021-02-04 08:56 | Emergency (ER) | payer MEDICAID ==
--- NOTE | 2021-02-04 08:59 | EDM.PDOC ---
ED HPI GENERAL MEDICAL PROBLEM - General Chief Complaint: Flank Pain Stated Complaint: KIDNEY PAIN Time Seen by Provider: 02/04/21 08:59 Source of Information: Reports: Patient, Old Records, RN, RN Notes Reviewed History Limitations: Reports: No Limitations - History of Present Illness INITIAL COMMENTS - FREE TEXT/NARRATIVE: Pt presents to ER from home by POV with c/o severe left flank pain, hematuria, and vomiting. Pt has Hx of same symptoms chronically recurring for the past 2 years. Hx of HSP and Loin Pain Hematuria syndrome. Pt denies any new symptoms, fever, chills, or rash. Pt has been monitored due to opiate dependence and use of ER for chronic pain. Dr. Jung states that the pt has been fired from [facility]'s practice due to refusal to comply with his pain management contract. Pt states he was out of town and missed an appointment. Pt claims he will be following up at [facility] with the urology transplant team this month. Duration: Chronic, Recurring Location: Reports: Other (Left flank) Quality: Reports: Same as Previous Episode Severity: Severe Improves with: Reports: None Worsens with: Reports: None Associated Symptoms: Reports: No Other Symptoms - Related Data Allergies Allergy/AdvReac Type Severity Reaction Status Date / Time amoxicillin [Amoxicillin] Allergy Rash Verified 02/03/21 15:46 bee venom protein (honey bee) Allergy Cannot Verified 02/03/21 15:46 Remember butorphanol [From Stadol] Allergy Hallucinati Verified 02/03/21 15:46 ons haloperidol [From Haldol] Allergy Hallucinati Verified 02/03/21 15:46 ons ketorolac tromethamine Allergy Rash Verified 02/03/21 15:46 [From Toradol] metoclopramide [From Reglan] Allergy Agitation Verified 02/03/21 15:46 promethazine HCl Allergy Hallucinati Verified 02/03/21 15:46 [From Phenergan] ons tramadol HCl [From Ultram] Allergy Rash Verified 02/03/21 15:46 Home Meds: Home Meds Tamsulosin HCl [Flomax] 0.4 mg PO BID 05/30/20 [History] Ondansetron [Zofran] 8 mg PO TID PRN 06/21/20 [History] Docusate Sodium [Colace] 100 mg PO BID PRN 10/21/20 [History] Losartan [Cozaar] 25 mg PO BEDTIME 10/24/20 [History] Acetaminophen [Tylenol] 650 mg PO Q4HR PRN 12/28/20 [History] Past Medical History - Past Health History Medical/Surgical History: Denies Medical/Surgical History HEENT History: Reports: None Cardiovascular History: Reports: None Respiratory History: Reports: None Gastrointestinal History: Reports: Cholelithiasis, Gastritis, GERD Other Gastrointestinal History: gallbladder pain Genitourinary History: Reports: Renal Calculus, Other (See Below) 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 Hematologic History: Reports: None Immunologic History: Reports: None Oncologic (Cancer) History: Reports: None Dermatologic History: Reports: None - Infectious Disease History Infectious Disease History: Reports: Chicken Pox, Novel Coronavirus - Past Surgical History Head Surgeries/Procedures: Reports: None HEENT Surgical History: Reports: None Cardiovascular Surgical History: Reports: None GI Surgical History: Reports: Appendectomy, Cholecystectomy Male Surgical History: Reports: Circumcision Other Male Surgeries/Procedures: Has had kidney biopsy Musculoskeletal Surgical History: Reports: Other (See Below) Other Musculoskeletal Surgeries/Procedures:: left arm Social & Family History - Family History Family Medical History: No Pertinent Family History - Caffeine Use Caffeine Use: Reports: None Caffeine Use Comment: 32 oz daily - Living Situation & Occupation Living situation: Reports: Single, Alone Occupation: Employed ED ROS GENERAL - Review of Systems Review Of Systems: Comprehensive ROS is negative, except as noted in HPI. ED EXAM, RENAL/ - Physical Exam Exam: See Below Exam Limited By: No Limitations General Appearance: Alert, WD/WN, No Apparent Distress, Obese Throat/Mouth: Normal Voice, No Airway Compromise Head: Atraumatic, Normocephalic Neck: Normal Inspection Respiratory/Chest: No Respiratory Distress, Lungs Clear Cardiovascular: Regular Rate, Rhythm GI/Abdominal: Normal Bowel Sounds, Soft, Tender (LLQ, mildly at LUQ) Back Exam: CVA Tenderness (L). No: CVA Tenderness (R), Vertebral Tenderness Extremities: Normal Inspection Neurological: Alert, Oriented, No Motor/Sensory Deficits Psychiatric: Depressed Mood, Flat Affect Skin Exam: Warm, Dry, Intact, Normal Color, No Rash. No: Ecchymosis, Erythema, Jaundice, Petechiae Course - Vital Signs Last Recorded V/S: Last Vital Signs Temp 98.9 F 02/04/21 09:04 Pulse 78 02/04/21 09:04 Resp 16 02/04/21 09:04 BP 130/82 02/04/21 09:04 Pulse Ox 99 02/04/21 09:04 - Orders/Labs/Meds Meds: Medications Discontinued Medications Generic Name Dose Route Start Last Admin Trade Name Chavo PRN Reason Stop Dose Admin Hydromorphone HCl 2 mg 02/04/21 09:04 Hydromorphone 1 Mg/Ml Syringe IM 02/04/21 09:05 ONETIME ONE Ondansetron HCl 8 mg 02/04/21 09:04 Ondansetron 4 Mg Tab.Dis PO 02/04/21 09:05 ONETIME ONE - Re-Assessments/Exams Free Text/Narrative Re-Assessment/Exam: 02/04/21 09:05 I explained to the pt the he cannot received outpatient prescribed narcotics for chronic pain control from the ER. Departure - Departure Time of Disposition: 09:35 Disposition: Home, Self-Care 01 Condition: Good Clinical Impression: Loin pain hematuria syndrome, History of Henoch-Schonlein purpura, Flank pain - Discharge Information *PRESCRIPTION DRUG MONITORING PROGRAM REVIEWED*: No *COPY OF PRESCRIPTION DRUG MONITORING REPORT IN PATIENT NICO: No Instructions: Flank Pain, Adult Forms: ED Department Discharge Additional Instructions: Follow up in clinic for pain management. Sepsis Event Note (ED) - Focused Exam Vital Signs: Vital Signs Temp Pulse Resp BP Pulse Ox 02/04/21 09:04 98.9 F 78 16 130/82 99
[2021-02-04] MEDS ORDERED: Ondansetron 4 MG Tab.DIS PO ONE (09:04)
[2021-02-04] MEDS ORDERED: HYDROmorphone 1 MG/ML Syringe IM ONE (09:04)
[2021-02-04 09:07] VITALS: BP 130/82; PULSE 78
== END 2021-02-04 10:15 | disposition home or self-care (01) ==
LOC: DL.ED 08:56
DX: N39.8 Other specified disorders of urinary system (principal); Z86.2 Personal history of diseases of the blood and blood-forming organs and certain disorders involving the immune mechanism; Z88.0 Allergy status to penicillin; Z79.899 Other long term (current) drug therapy; Z91.030 Bee allergy status; Z88.6 Allergy status to analgesic agent; Z88.8 Allergy status to other drugs, medicaments and biological substances; Z88.5 Allergy status to narcotic agent; E66.9 Obesity, unspecified
CPT/HCPCS: 96372; 99283; A9270-GY; J1170

== ENCOUNTER 2021-02-05 11:10 | Emergency (ER) | payer MEDICAID ==
[2021-02-05] MEDS ORDERED: Ondansetron 4 MG Tab.DIS PO ONE (11:18)
[2021-02-05] MEDS ORDERED: HYDROmorphone 1 MG/ML Syringe IVPUSH ONE (11:18)
[2021-02-05 11:20] VITALS: BP 140/79; PULSE 65
--- NOTE | 2021-02-05 11:20 | EDM.PDOC ---
ED HPI GENERAL MEDICAL PROBLEM - General Chief Complaint: Genitourinary Problem Stated Complaint: KIDNEY PAIN Time Seen by Provider: 02/05/21 11:19 Source of Information: Reports: Patient, Old Records, RN, RN Notes Reviewed History Limitations: Reports: No Limitations - History of Present Illness INITIAL COMMENTS - FREE TEXT/NARRATIVE: Pt presents to ER from home by POV with c/o severe left flank pain, hematuria, and vomiting. Pt has Hx of same symptoms chronically recurring for the past 2 years. Hx of HSP and Loin Pain Hematuria syndrome. Pt denies any new symptoms, fever, chills, or rash. Pt has been monitored due to opiate dependence and use of ER for chronic pain. No new symptoms, fevers, or chills. Pt has been vomiting this morning. Pt claims he will be following up at [facility] with the urology transplant team this month. Duration: Chronic, Recurring Location: Reports: Other (Left flank) Quality: Reports: Same as Previous Episode Severity: Severe Improves with: Reports: None Worsens with: Reports: None Associated Symptoms: Reports: No Other Symptoms Treatments GROUP THERAPY COUNSELOR: Reports: NSAIDS, Other Medication(s) (Zofran) - Related Data Allergies Allergy/AdvReac Type Severity Reaction Status Date / Time amoxicillin [Amoxicillin] Allergy Rash Verified 02/03/21 15:46 bee venom protein (honey bee) Allergy Cannot Verified 02/03/21 15:46 Remember butorphanol [From Stadol] Allergy Hallucinati Verified 02/03/21 15:46 ons haloperidol [From Haldol] Allergy Hallucinati Verified 02/03/21 15:46 ons ketorolac tromethamine Allergy Rash Verified 02/03/21 15:46 [From Toradol] metoclopramide [From Reglan] Allergy Agitation Verified 02/03/21 15:46 promethazine HCl Allergy Hallucinati Verified 02/03/21 15:46 [From Phenergan] ons tramadol HCl [From Ultram] Allergy Rash Verified 02/03/21 15:46 Home Meds: Home Meds Tamsulosin HCl [Flomax] 0.4 mg PO BID 05/30/20 [History] Ondansetron [Zofran] 8 mg PO TID PRN 06/21/20 [History] Docusate Sodium [Colace] 100 mg PO BID PRN 10/21/20 [History] Losartan [Cozaar] 25 mg PO BEDTIME 10/24/20 [History] Acetaminophen [Tylenol] 650 mg PO Q4HR PRN 12/28/20 [History] Past Medical History - Past Health History Medical/Surgical History: Denies Medical/Surgical History HEENT History: Reports: None Cardiovascular History: Reports: None Respiratory History: Reports: None Gastrointestinal History: Reports: Cholelithiasis, Gastritis, GERD Other Gastrointestinal History: gallbladder pain Genitourinary History: Reports: Renal Calculus, Other (See Below) 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 Hematologic History: Reports: None Immunologic History: Reports: None Oncologic (Cancer) History: Reports: None Dermatologic History: Reports: None - Infectious Disease History Infectious Disease History: Reports: Chicken Pox, Novel Coronavirus - Past Surgical History Head Surgeries/Procedures: Reports: None HEENT Surgical History: Reports: None Cardiovascular Surgical History: Reports: None GI Surgical History: Reports: Appendectomy, Cholecystectomy Male Surgical History: Reports: Circumcision Other Male Surgeries/Procedures: Has had kidney biopsy Musculoskeletal Surgical History: Reports: Other (See Below) Other Musculoskeletal Surgeries/Procedures:: left arm Social & Family History - Family History Family Medical History: No Pertinent Family History - Caffeine Use Caffeine Use: Reports: None Caffeine Use Comment: 32 oz daily - Living Situation & Occupation Living situation: Reports: Single, Alone Occupation: Employed ED ROS GENERAL - Review of Systems Review Of Systems: Comprehensive ROS is negative, except as noted in HPI. ED EXAM, RENAL/ - Physical Exam Exam: See Below Exam Limited By: No Limitations General Appearance: Alert, WD/WN, No Apparent Distress, Obese Throat/Mouth: Normal Voice, No Airway Compromise Head: Atraumatic, Normocephalic Respiratory/Chest: No Respiratory Distress, Lungs Clear Cardiovascular: Regular Rate, Rhythm GI/Abdominal: Normal Bowel Sounds, Soft, Tender (LLQ, LUQ) (Male) Exam: Deferred Rectal (Males) Exam: Deferred Back Exam: Full Range of Motion, CVA Tenderness (L). No: CVA Tenderness (R), Vertebral Tenderness Extremities: Normal Inspection Neurological: Alert, Oriented, No Motor/Sensory Deficits Psychiatric: Normal Affect, Normal Mood Skin Exam: Warm, Dry, Intact, Normal Color, No Rash. No: Ecchymosis, Jaundice, Petechiae Course - Vital Signs Last Recorded V/S: Last Vital Signs Temp 98.0 F 02/05/21 11:19 Pulse 65 02/05/21 11:19 Resp 18 02/05/21 11:19 BP 140/79 02/05/21 11:19 Pulse Ox 100 02/05/21 11:19 - Orders/Labs/Meds Meds: Medications Discontinued Medications Generic Name Dose Route Start Last Admin Trade Name Karthikeyanq PRN Reason Stop Dose Admin Hydromorphone HCl 2 mg 02/05/21 11:18 Hydromorphone 1 Mg/Ml Syringe IVPUSH 02/05/21 11:19 ONETIME ONE Ondansetron HCl 8 mg 02/05/21 11:18 Ondansetron 4 Mg Tab.Dis PO 02/05/21 11:19 ONETIME ONE Departure - Departure Time of Disposition: 11:40 Disposition: Home, Self-Care 01 Condition: Good, Fair Clinical Impression: Loin pain hematuria syndrome, History of Henoch-Schonlein purpura, Flank pain - Discharge Information *PRESCRIPTION DRUG MONITORING PROGRAM REVIEWED*: No *COPY OF PRESCRIPTION DRUG MONITORING REPORT IN PATIENT NICO: No Instructions: Flank Pain, Adult Forms: ED Department Discharge Additional Instructions: Follow up in clinic for pain management. Follow up with MARGAR[facility] Abebe as planned. Sepsis Event Note (ED) - Focused Exam Vital Signs: Vital Signs Temp Pulse Resp BP Pulse Ox 02/05/21 11:19 98.0 F 65 18 140/79 100
== END 2021-02-05 11:37 | disposition home or self-care (01) ==
LOC: DL.ED 11:10
DX: R10.9 Unspecified abdominal pain (principal); M54.9 Dorsalgia, unspecified; R31.9 Hematuria, unspecified; E66.9 Obesity, unspecified; Z88.5 Allergy status to narcotic agent; Z88.6 Allergy status to analgesic agent; Z87.2 Personal history of diseases of the skin and subcutaneous tissue; Z86.16 Personal history of COVID-19; Z91.030 Bee allergy status; Z88.0 Allergy status to penicillin; Z68.41 Body mass index [BMI] 40.0-44.9, adult
CPT/HCPCS: 96374; 99283; 99283-25; A9270-GY; J1170

== ENCOUNTER 2021-02-08 08:31 | Emergency (ER) | payer MEDICAID ==
[2021-02-08 08:43] VITALS: BP 129/74; PULSE 66
[2021-02-08] MEDS ORDERED: HYDROmorphone 1 MG/ML Syringe IM ONE (08:54)
--- NOTE | 2021-02-08 08:54 | EDM.PDOC ---
ED HPI GENERAL MEDICAL PROBLEM - General Chief Complaint: Flank Pain Stated Complaint: KIDNEY PAIN Time Seen by Provider: 02/08/21 08:48 Source of Information: Reports: Patient, RN, RN Notes Reviewed History Limitations: Reports: No Limitations - History of Present Illness INITIAL COMMENTS - FREE TEXT/NARRATIVE: Patient is a 30-year-old male who presents to ER with complaint of chronic pain bilateral flank pain. Patient states this is been ongoing for a week or longer. States he last saw his primary care provider on January 17. He states he was to be to the pharmacy for a pill count and did not make it as he was out of town. Medication has not been refilled since then. Denies any signs or symptoms of urinary tract infection. Patient states he is supposed to be at the [facility] this week but was told they will not do the surgery until he loses at least 20 pounds. Patient described some dieting tactics that he is using to try to take the weight off. Onset: Gradual Bilateral Flank Pain Score (Numeric/FACES): 7 - Related Data Allergies Allergy/AdvReac Type Severity Reaction Status Date / Time amoxicillin [Amoxicillin] Allergy Rash Verified 02/08/21 08:43 bee venom protein (honey bee) Allergy Cannot Verified 02/08/21 08:43 Remember butorphanol [From Stadol] Allergy Hallucinati Verified 02/08/21 08:43 ons haloperidol [From Haldol] Allergy Hallucinati Verified 02/08/21 08:43 ons ketorolac tromethamine Allergy Rash Verified 02/08/21 08:43 [From Toradol] metoclopramide [From Reglan] Allergy Agitation Verified 02/08/21 08:43 promethazine HCl Allergy Hallucinati Verified 02/08/21 08:43 [From Phenergan] ons tramadol HCl [From Ultram] Allergy Rash Verified 02/08/21 08:43 Home Meds: Home Meds Tamsulosin HCl [Flomax] 0.4 mg PO BID 05/30/20 [History] Ondansetron [Zofran] 8 mg PO TID PRN 06/21/20 [History] Docusate Sodium [Colace] 100 mg PO BID PRN 10/21/20 [History] Losartan [Cozaar] 25 mg PO BEDTIME 10/24/20 [History] Acetaminophen [Tylenol] 650 mg PO Q4HR PRN 12/28/20 [History] Past Medical History - Past Health History Medical/Surgical History: Denies Medical/Surgical History HEENT History: Reports: None Cardiovascular History: Reports: None Respiratory History: Reports: None Gastrointestinal History: Reports: Cholelithiasis, Gastritis, GERD Other Gastrointestinal History: gallbladder pain Genitourinary History: Reports: Renal Calculus, Other (See Below) 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 Hematologic History: Reports: None Immunologic History: Reports: None Oncologic (Cancer) History: Reports: None Dermatologic History: Reports: None - Infectious Disease History Infectious Disease History: Reports: Chicken Pox, Novel Coronavirus - Past Surgical History Head Surgeries/Procedures: Reports: None HEENT Surgical History: Reports: None Cardiovascular Surgical History: Reports: None GI Surgical History: Reports: Appendectomy, Cholecystectomy Male Surgical History: Reports: Circumcision Other Male Surgeries/Procedures: Has had kidney biopsy Musculoskeletal Surgical History: Reports: Other (See Below) Other Musculoskeletal Surgeries/Procedures:: left arm Social & Family History - Family History Family Medical History: No Pertinent Family History - Caffeine Use Caffeine Use: Reports: Soda Caffeine Use Comment: 32 oz daily - Recreational Drug Use Recreational Drug Use: Yes Drug Use in Last 12 Months: Yes Recreational Drug Type: Reports: Marijuana/Hashish Recreational Drug Use Frequency: Daily - Living Situation & Occupation Living situation: Reports: Single, Alone Occupation: Employed ED ROS GENERAL - Review of Systems Review Of Systems: Comprehensive ROS is negative, except as noted in HPI. ED EXAM, RENAL/ - Physical Exam Exam: See Below Exam Limited By: No Limitations General Appearance: Alert, WD/WN, Mild Distress Eye Exam: Bilateral Eye: EOMI, Normal Inspection Ears: Normal External Exam, Hearing Grossly Normal Nose: Normal Inspection Throat/Mouth: Normal Inspection, Normal Voice, No Airway Compromise Head: Atraumatic, Normocephalic Neck: Normal Inspection, Supple, Non-Tender, Full Range of Motion Respiratory/Chest: No Respiratory Distress, Lungs Clear, Normal Breath Sounds, No Accessory Muscle Use, Chest Non-Tender Cardiovascular: Normal Peripheral Pulses, Regular Rate, Rhythm, No Edema, No Gallop, No JVD, No Murmur, No Rub GI/Abdominal: Normal Bowel Sounds, Soft, Non-Tender, No Distention (Male) Exam: Deferred Rectal (Males) Exam: Deferred Back Exam: Normal Inspection, Full Range of Motion, CVA Tenderness (R), Decreased Range of Motion Extremities: Normal Inspection, Normal Range of Motion, Non-Tender, Normal Capillary Refill, No Pedal Edema Neurological: Alert, Oriented, Normal Cognition, Normal Gait, No Motor/Sensory Deficits Psychiatric: Normal Affect, Normal Mood Skin Exam: Warm, Dry, Intact, Normal Color, No Rash Lymphatic: No Adenopathy Course - Vital Signs Last Recorded V/S: Last Vital Signs Temp 98.1 F 02/08/21 08:41 Pulse 66 02/08/21 08:41 Resp 18 02/08/21 08:41 BP 129/74 02/08/21 08:41 Pulse Ox 99 02/08/21 08:41 - Orders/Labs/Meds Meds: Medications Discontinued Medications Generic Name Dose Route Start Last Admin Trade Name Chavo PRN Reason Stop Dose Admin Hydromorphone HCl 1 mg 02/08/21 08:54 02/08/21 09:03 Hydromorphone 1 Mg/Ml Syringe IM 02/08/21 08:55 1 mg ONETIME ONE Administration Departure - Departure Time of Disposition: 09:00 Disposition: Home, Self-Care 01 Condition: Good Clinical Impression: Loin pain without hematuria syndrome - Discharge Information *PRESCRIPTION DRUG MONITORING PROGRAM REVIEWED*: No *COPY OF PRESCRIPTION DRUG MONITORING REPORT IN PATIENT NICO: No Referrals: PCP,None [Primary Care Provider] - Forms: ED Department Discharge Additional Instructions: Follow up with your primary care facility Sepsis Event Note (ED) - Evaluation Sepsis Screening Result: No Definite Risk - Focused Exam Vital Signs: Vital Signs Temp Pulse Resp BP Pulse Ox 02/08/21 08:41 98.1 F 66 18 129/74 99
== END 2021-02-08 09:04 | disposition home or self-care (01) ==
LOC: DL.ED 08:31
DX: M54.5 Low back pain (principal); R31.9 Hematuria, unspecified; E66.9 Obesity, unspecified; Z68.41 Body mass index [BMI] 40.0-44.9, adult; Z88.5 Allergy status to narcotic agent; Z88.6 Allergy status to analgesic agent; Z88.0 Allergy status to penicillin; Z91.030 Bee allergy status
CPT/HCPCS: 96372; 99283; J1170

== ENCOUNTER 2021-02-09 08:00 | Emergency (ER) | payer MEDICAID | END 2021-02-09 08:40 | disposition left against medical advice (07) | LOC: DL.ED 08:00 | DX: Z53.21 Procedure and treatment not carried out due to patient leaving prior to being seen by health care provider (principal) ==

== ENCOUNTER 2021-02-10 09:13 | Emergency (ER) | payer MEDICAID ==
[2021-02-10 09:24] VITALS: BP 125/81; PULSE 79
--- NOTE | 2021-02-10 09:43 | EDM.PDOC ---
ED HPI GENERAL MEDICAL PROBLEM - General Chief Complaint: Flank Pain Stated Complaint: KIDNEY PAIN Time Seen by Provider: 02/10/21 09:25 Source of Information: Reports: Patient History Limitations: Reports: No Limitations - History of Present Illness INITIAL COMMENTS - FREE TEXT/NARRATIVE: This 30 yo male patient reports to the ED with bilateral flank pain and nausea. The patient reports he has been removed from his pain contract with [employer] due to him being in [place] at the time when he was supposed to have a pill count. The patient reports he did attempt to get into the clinic today, but all of his medications were filled except for his pain medications. The patient is currently attempting to establish care with the [facility] for management of his chronic pain. The patient reports his nausea is under control at this time, but took the last of his Zofran (8 mg) just prior to coming to the ED. The patient also reports some pain in his lower abdomen along with some hesitancy with urination. The patient does have a history of loin pain hematuria syndrome and has been seen by multiple providers. The patient has been working with the [facility] for further evaluation and surgical treatment. Onset: Unknown/Unsure Duration: Constant Location: Reports: Abdomen, Back Quality: Reports: Ache, Sharp, Stabbing Severity: Severe Improves with: Reports: None Worsens with: Reports: None Context: Reports: Other Associated Symptoms: Reports: No Other Symptoms Bilateral Flank Pain Score (Numeric/FACES): 9 - Related Data Allergies Allergy/AdvReac Type Severity Reaction Status Date / Time amoxicillin [Amoxicillin] Allergy Rash Verified 02/10/21 09:24 bee venom protein (honey bee) Allergy Cannot Verified 02/10/21 09:24 Remember butorphanol [From Stadol] Allergy Hallucinati Verified 02/10/21 09:24 ons haloperidol [From Haldol] Allergy Hallucinati Verified 02/10/21 09:24 ons ketorolac tromethamine Allergy Rash Verified 02/10/21 09:24 [From Toradol] metoclopramide [From Reglan] Allergy Agitation Verified 02/10/21 09:24 promethazine HCl Allergy Hallucinati Verified 02/10/21 09:24 [From Phenergan] ons tramadol HCl [From Ultram] Allergy Rash Verified 02/10/21 09:24 Home Meds: Home Meds Tamsulosin HCl [Flomax] 0.4 mg PO BID 05/30/20 [History] Ondansetron [Zofran] 8 mg PO TID PRN 06/21/20 [History] Docusate Sodium [Colace] 100 mg PO BID PRN 10/21/20 [History] Losartan [Cozaar] 25 mg PO BEDTIME 10/24/20 [History] Acetaminophen [Tylenol] 650 mg PO Q4HR PRN 12/28/20 [History] Past Medical History - Past Health History Medical/Surgical History: Denies Medical/Surgical History HEENT History: Reports: None Cardiovascular History: Reports: None Respiratory History: Reports: None Gastrointestinal History: Reports: Cholelithiasis, Gastritis, GERD Other Gastrointestinal History: gallbladder pain Genitourinary History: Reports: Renal Calculus, Other (See Below) 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 Hematologic History: Reports: None Immunologic History: Reports: None Oncologic (Cancer) History: Reports: None Dermatologic History: Reports: None - Infectious Disease History Infectious Disease History: Reports: Chicken Pox, Novel Coronavirus - Past Surgical History Head Surgeries/Procedures: Reports: None HEENT Surgical History: Reports: None Cardiovascular Surgical History: Reports: None GI Surgical History: Reports: Appendectomy, Cholecystectomy Male Surgical History: Reports: Circumcision Other Male Surgeries/Procedures: Has had kidney biopsy Musculoskeletal Surgical History: Reports: Other (See Below) Other Musculoskeletal Surgeries/Procedures:: left arm Social & Family History - Family History Family Medical History: No Pertinent Family History - Tobacco Use Tobacco Use Status *Q: Never Tobacco User - Caffeine Use Caffeine Use: Reports: Soda Caffeine Use Comment: 32 oz daily - Recreational Drug Use Recreational Drug Use: No - Living Situation & Occupation Living situation: Reports: Single, Alone Occupation: Employed ED ROS GENERAL - Review of Systems Review Of Systems: Comprehensive ROS is negative, except as noted in HPI. ED EXAM, RENAL/ - Physical Exam Exam: See Below Exam Limited By: No Limitations General Appearance: Alert, WD/WN, Moderate Distress, Obese Eye Exam: Bilateral Eye: EOMI, Normal Inspection, PERRL Ears: Normal External Exam, Normal Canal, Hearing Grossly Normal, Normal TMs Nose: Normal Inspection, Normal Mucosa, No Blood Throat/Mouth: Normal Inspection, Normal Lips, Normal Teeth, Normal Gums, Normal Oropharynx, Normal Voice, No Airway Compromise Head: Atraumatic, Normocephalic Neck: Normal Inspection, Supple, Non-Tender, Full Range of Motion Respiratory/Chest: No Respiratory Distress, Lungs Clear, Normal Breath Sounds, No Accessory Muscle Use, Chest Non-Tender Cardiovascular: Normal Peripheral Pulses, Regular Rate, Rhythm, No Edema, No Gallop, No JVD, No Murmur, No Rub GI/Abdominal: Tender (lower abdomen) (Male) Exam: Deferred Rectal (Males) Exam: Deferred Back Exam: Normal Inspection, Full Range of Motion, NT Extremities: Normal Inspection, Normal Range of Motion, Non-Tender, Normal Capillary Refill, No Pedal Edema Neurological: Alert, Oriented, CN II-XII Intact, Normal Cognition, Normal Gait, Normal Reflexes, No Motor/Sensory Deficits Psychiatric: Normal Affect, Normal Mood Skin Exam: Warm, Dry, Intact, Normal Color, No Rash Lymphatic: No Adenopathy Course - Vital Signs Last Recorded V/S: Last Vital Signs Temp 96.7 F L 02/10/21 09:21 Pulse 79 02/10/21 09:21 Resp 16 02/10/21 09:21 BP 125/81 02/10/21 09:21 Pulse Ox 100 02/10/21 09:21 - Orders/Labs/Meds Labs: Laboratory Tests 02/10/21 02/10/21 Range/Units 09:30 09:30 Urine Color [place] (YELLOW) Urine Appearance Slightly cloudy (CLEAR) Urine pH 6.0 (5.0-9.0) Ur Specific [place] >= 1.030 (1.005-1.030) Urine Protein Trace H (NEGATIVE) Urine Glucose (UA) Negative (NEGATIVE) Urine Ketones Negative (NEGATIVE) Urine Occult Blood Large H (NEGATIVE) Urine Nitrite Negative (NEGATIVE) Urine Bilirubin Negative (NEGATIVE) Urine Urobilinogen 0.2 (0.2-1.0) mg/dL Ur Leukocyte Esterase Negative (NEGATIVE) Urine RBC >100 H /HPF Urine WBC Not seen (0-5/HPF) /HPF Ur Epithelial Cells Few (NOT SEEN) /HPF Urine Bacteria Rare (0-FEW/HPF) /HPF Urine Mucus Few H (NOT SEEN) /LPF Urine Opiates Screen Negative (NEGATIVE) Ur Oxycodone Screen Negative (NEGATIVE) Urine Methadone Screen Negative (NEGATIVE) Ur Barbiturates Screen Negative (NEGATIVE) U Tricyclic Antidepress Negative (NEGATIVE) Ur Phencyclidine Scrn Negative (NEGATIVE) Ur Amphetamine Screen Negative (NEGATIVE) U Methamphetamines Scrn Negative (NEGATIVE) Urine MDMA Screen Negative (NEGATIVE) U Benzodiazepines Scrn Negative (NEGATIVE) Urine Cocaine Screen Negative (NEGATIVE) U Marijuana (THC) Screen Positive H (NEGATIVE) Meds: Medications Discontinued Medications Generic Name Dose Route Start Last Admin Trade Name Freq PRN Reason Stop Dose Admin Hydromorphone HCl 2 mg 02/10/21 09:54 Hydromorphone 1 Mg/Ml Syringe IM 02/10/21 09:55 ONETIME ONE - Re-Assessments/Exams Free Text/Narrative Re-Assessment/Exam: 02/10/21 09:59 The patient was advised of the lab results. The patient was given an injection of Dilaudid IM. The patient asked again for a script pain medications, but was advised that he needs to get these chronic pain medications from his primary c are facility. The patient reports that he did get his Zofran refilled by his primary care facility, so he will not need a script for that medication. Departure - Departure Time of Disposition: 10:01 Disposition: Home, Self-Care 01 Condition: Fair Clinical Impression: Loin pain hematuria syndrome - Discharge Information *PRESCRIPTION DRUG MONITORING PROGRAM REVIEWED*: Yes *COPY OF PRESCRIPTION DRUG MONITORING REPORT IN PATIENT NICO: No Forms: ED Department Discharge Additional Instructions: The patient was advised of the examination and lab results during the visit. The patient was given an injection of Dilaudid while in the ED. The patient was encouraged to follow-up with his primary care facility. If the patient has any additional symptoms or concerns, the patient should visit his primary care facility, consult with his specialist or return to the emergency department. Sepsis Event Note (ED) - Evaluation Sepsis Screening Result: No Definite Risk - Focused Exam Vital Signs: Vital Signs Temp Pulse Resp BP Pulse Ox 02/10/21 09:21 96.7 F L 79 16 125/81 100
[2021-02-10] MEDS ORDERED: HYDROmorphone 1 MG/ML Syringe IM ONE (09:54)
== END 2021-02-10 10:13 | disposition home or self-care (01) ==
LOC: DL.ED 09:13
DX: M54.5 Low back pain (principal); R31.9 Hematuria, unspecified; E66.9 Obesity, unspecified; Z68.30 Body mass index [BMI] 30.0-30.9, adult; Z86.16 Personal history of COVID-19; Z88.0 Allergy status to penicillin; Z91.030 Bee allergy status; Z88.5 Allergy status to narcotic agent; Z88.6 Allergy status to analgesic agent
CPT/HCPCS: 80305-QW; 81001; 96372; 99283; 99284; J1170

== ENCOUNTER 2021-02-14 08:48 | Emergency (ER) | payer MEDICAID, OTHER ==
--- NOTE | 2021-02-14 09:09 | EDM.PDOC ---
ED HPI GENERAL MEDICAL PROBLEM - General Stated Complaint: KIDNEY PAIN Time Seen by Provider: 02/14/21 09:05 Source of Information: Reports: Patient, Old Records, RN, RN Notes Reviewed History Limitations: Reports: No Limitations - History of Present Illness INITIAL COMMENTS - FREE TEXT/NARRATIVE: Elvin is a 30 y/o male with a history of HSP with loin pain hematuria syndrome who presents to the ED via personal vehicle with complaints of left flank pain, hematuria, and vomiting. He has a history of the same symptoms chronically occurring over the past two years. He has been monitored due to opiate dependance and use of ER for chronic pain. Per previous documentation, Dr. Jung states that the patient has been fired from [facility]'s practice due to refusal to comply with his pain management contract; patient states he was out of town and missed an appointment/pill count. He states he has now established with a new provider, and will see Daron Santo NP-Kashif on February 25. Patient states he was camping and on a horse trail ride over the weekend and is now experiencing an exacerbation of his current flair. He denies any new symptoms, fever, chills, or rash. Bilateral Flank Pain Score (Numeric/FACES): 8 - Related Data Allergies Allergy/AdvReac Type Severity Reaction Status Date / Time amoxicillin [Amoxicillin] Allergy Rash Verified 02/10/21 09:24 bee venom protein (honey bee) Allergy Cannot Verified 02/10/21 09:24 Remember butorphanol [From Stadol] Allergy Hallucinati Verified 02/10/21 09:24 ons haloperidol [From Haldol] Allergy Hallucinati Verified 02/10/21 09:24 ons ketorolac tromethamine Allergy Rash Verified 02/10/21 09:24 [From Toradol] metoclopramide [From Reglan] Allergy Agitation Verified 02/10/21 09:24 promethazine HCl Allergy Hallucinati Verified 02/10/21 09:24 [From Phenergan] ons tramadol HCl [From Ultram] Allergy Rash Verified 02/10/21 09:24 Home Meds: Home Meds Tamsulosin HCl [Flomax] 0.4 mg PO BID 05/30/20 [History] Ondansetron [Zofran] 8 mg PO TID PRN 06/21/20 [History] Docusate Sodium [Colace] 100 mg PO BID PRN 10/21/20 [History] Losartan [Cozaar] 25 mg PO BEDTIME 10/24/20 [History] Acetaminophen [Tylenol] 650 mg PO Q4HR PRN 12/28/20 [History] Past Medical History - Past Health History Medical/Surgical History: Denies Medical/Surgical History HEENT History: Reports: None Cardiovascular History: Reports: None Respiratory History: Reports: None Gastrointestinal History: Reports: Cholelithiasis, Gastritis, GERD Other Gastrointestinal History: gallbladder pain Genitourinary History: Reports: Renal Calculus, Other (See Below) 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 Hematologic History: Reports: None Immunologic History: Reports: None Oncologic (Cancer) History: Reports: None Dermatologic History: Reports: None - Infectious Disease History Infectious Disease History: Reports: Chicken Pox, Novel Coronavirus - Past Surgical History Head Surgeries/Procedures: Reports: None HEENT Surgical History: Reports: None Cardiovascular Surgical History: Reports: None GI Surgical History: Reports: Appendectomy, Cholecystectomy Male Surgical History: Reports: Circumcision Other Male Surgeries/Procedures: Has had kidney biopsy Musculoskeletal Surgical History: Reports: Other (See Below) Other Musculoskeletal Surgeries/Procedures:: left arm Social & Family History - Family History Family Medical History: No Pertinent Family History - Caffeine Use Caffeine Use: Reports: Soda Caffeine Use Comment: 32 oz daily - Living Situation & Occupation Living situation: Reports: Single, Alone Occupation: Employed ED ROS GENERAL - Review of Systems Review Of Systems: Comprehensive ROS is negative, except as noted in HPI. ED EXAM, RENAL/ - Physical Exam Exam: See Below Exam Limited By: No Limitations General Appearance: Alert, No Apparent Distress Eye Exam: Bilateral Eye: EOMI, PERRL (3mm) Throat/Mouth: Normal Inspection, Normal Oropharynx, Normal Voice, No Airway Compromise Respiratory/Chest: No Respiratory Distress, Lungs Clear, Normal Breath Sounds, No Accessory Muscle Use, Chest Non-Tender Cardiovascular: Normal Peripheral Pulses, Regular Rate, Rhythm, No Edema, No Gallop, No JVD, No Murmur, No Rub GI/Abdominal: Soft, No Distention, No Abnormal Bruit, No Mass, Pelvis Stable, Tender (Suprapubic tenderness), Abnormal Bowel Sounds (Hypoactive bowel sounds) Back Exam: Normal Inspection, Full Range of Motion, CVA Tenderness (L). No: CVA Tenderness (R) Extremities: Normal Inspection, Normal Range of Motion, Non-Tender, Normal Capillary Refill, No Pedal Edema Neurological: Alert, Oriented, CN II-XII Intact, Normal Cognition, Normal Gait, No Motor/Sensory Deficits Psychiatric: Normal Affect, Normal Mood, Other (Poor eye contact) Skin Exam: Warm, Dry, Intact, Normal Color, No Rash. No: Ecchymosis, Erythema, Jaundice, Mottled, Pallor, Petechiae Course - Vital Signs Last Recorded V/S: Last Vital Signs Temp 98.4 F 02/14/21 09:00 Pulse 59 L 02/14/21 09:00 Resp 18 02/14/21 09:00 BP 152/109 H 02/14/21 09:00 Pulse Ox 98 02/14/21 09:00 - Orders/Labs/Meds Labs: Laboratory Tests 02/14/21 02/14/21 Range/Units 09:17 09:17 Urine Color Yellow (YELLOW) Urine Appearance Clear (CLEAR) Urine pH 6.0 (5.0-9.0) Ur Specific [place] 1.025 (1.005-1.030) Urine Protein Negative (NEGATIVE) Urine Glucose (UA) Negative (NEGATIVE) Urine Ketones Negative (NEGATIVE) Urine Occult Blood Trace-intact H (NEGATIVE) Urine Nitrite Negative (NEGATIVE) Urine Bilirubin Negative (NEGATIVE) Urine Urobilinogen 0.2 (0.2-1.0) mg/dL Ur Leukocyte Esterase Negative (NEGATIVE) Urine RBC 0-5 /HPF Urine WBC 0-5 (0-5/HPF) /HPF Ur Epithelial Cells Rare (NOT SEEN) /HPF Urine Bacteria Not seen (0-FEW/HPF) /HPF Urine Mucus Rare (NOT SEEN) /LPF Urine Other Urine Opiates Screen Negative (NEGATIVE) Ur Oxycodone Screen Positive H (NEGATIVE) Urine Methadone Screen Negative (NEGATIVE) Ur Barbiturates Screen Negative (NEGATIVE) U Tricyclic Antidepress Negative (NEGATIVE) Ur Phencyclidine Scrn Negative (NEGATIVE) Ur Amphetamine Screen Negative (NEGATIVE) U Methamphetamines Scrn Negative (NEGATIVE) Urine MDMA Screen Negative (NEGATIVE) U Benzodiazepines Scrn Negative (NEGATIVE) Urine Cocaine Screen Negative (NEGATIVE) U Marijuana (THC) Screen Positive H (NEGATIVE) Meds: Medications Discontinued Medications Generic Name Dose Route Start Last Admin Trade Name Chavo PRN Reason Stop Dose Admin Naproxen 500 mg 02/14/21 10:24 02/14/21 10:35 Naproxen 500 Mg Tab PO 02/14/21 10:25 500 mg ONETIME ONE Administration Ondansetron HCl 4 mg 02/14/21 10:25 02/14/21 10:35 Ondansetron 4 Mg Tab.Dis PO 02/14/21 10:26 4 mg ONETIME ONE Administration Oxycodone/Acetaminophen 2 tab 02/14/21 10:25 02/14/21 10:35 Acetaminophen/Oxycodone 325-5 Mg Tab PO 02/14/21 10:26 2 tab ONETIME ONE Administration - Re-Assessments/Exams Free Text/Narrative Re-Assessment/Exam: 02/14/21 Discussed findings of examination and lab work. Reviewed need for sooner follow-up with primary care provider for chronic pain management. Will treat with previously prescribed medications. Patient verbalized understanding and agreement with the plan of care. Departure - Departure Time of Disposition: 10:22 Disposition: Home, Self-Care 01 Condition: Good Clinical Impression: HSP (Henoch Schonlein purpura), Loin pain hematuria syndrome - Discharge Information *PRESCRIPTION DRUG MONITORING PROGRAM REVIEWED*: Not Applicable *COPY OF PRESCRIPTION DRUG MONITORING REPORT IN PATIENT NICO: Not Applicable Referrals: PCP,None [Ordering Only Provider] - Forms: ED Department Discharge Additional Instructions: 1.) Contact your new primary care provider to inquire about a sooner appointment. 2.) Drink plenty of water to stay hydrated. 3.) Avoid activities which exacerbate your chronic health condition. Sepsis Event Note (ED) - Focused Exam Vital Signs: Vital Signs Temp Pulse Resp BP Pulse Ox 02/14/21 09:00 98.4 F 59 L 18 152/109 H 98
[2021-02-14 09:26] VITALS: BP 152/109; PULSE 59
[2021-02-14] MEDS ORDERED: Naproxen 500 MG Tab PO ONE (10:24)
[2021-02-14] MEDS ORDERED: Acetaminophen/oxyCODONE 325-5 MG Tab PO ONE (10:25)
[2021-02-14] MEDS ORDERED: Ondansetron 4 MG Tab.DIS PO ONE (10:25)
== END 2021-02-14 10:39 | disposition home or self-care (01) ==
LOC: DL.ED 08:48
DX: M54.5 Low back pain (principal); R31.9 Hematuria, unspecified; Z87.2 Personal history of diseases of the skin and subcutaneous tissue; E66.9 Obesity, unspecified; Z68.30 Body mass index [BMI] 30.0-30.9, adult; Z88.8 Allergy status to other drugs, medicaments and biological substances; Z88.5 Allergy status to narcotic agent; Z88.6 Allergy status to analgesic agent; Z88.0 Allergy status to penicillin; Z91.030 Bee allergy status
CPT/HCPCS: 80305; 81001; 99283; 99284; A9270

== ENCOUNTER 2021-02-15 10:27 | Emergency (ER) | payer MEDICAID, OTHER ==
[2021-02-15 10:44] VITALS: BP 129/80; PULSE 72
[2021-02-15] MEDS ORDERED: HYDROmorphone 1 MG/ML Syringe IM ONE (11:07)
[2021-02-15] MEDS ORDERED: Ondansetron 4 MG/2 ML SDV IM ONE (11:10)
--- NOTE | 2021-02-15 11:11 | EDM.PDOC ---
ED HPI GENERAL MEDICAL PROBLEM - General Chief Complaint: Flank Pain Stated Complaint: KIDNEY PAIN Time Seen by Provider: 02/15/21 11:00 Source of Information: Reports: Patient, Old Records, RN, RN Notes Reviewed History Limitations: Reports: No Limitations - History of Present Illness INITIAL COMMENTS - FREE TEXT/NARRATIVE: Elvin is a 30 y/o male with a history of HSP with loin pain hematuria syndrome who presents to the ED via personal vehicle for the 6th time in 10 days with complaints of left flank pain, hematuria, and vomiting. He has a history of the same symptoms chronically occurring over the past two years. He has been monitored due to opiate dependance and use of ER for chronic pain. Per previous documentation, Dr. Jung states that the patient has been fired from [facility]'s practice due to refusal to comply with his pain management contract; patient states he was out of town and missed an appointment/pill count. He states he has now established with a new provider, and will see Daron Santo NP-C on February 25. The patient states he called this morning to obtain a sooner appointment, but was told his new provider only works Sunday-Sunday. The patient reports he has taken his prescribed oxycodone with no alleviation of symptoms. He characterizes his pain as sharp in his left flank, which radiates into his suprapubic region. He has experienced constant nausea and notes he has vomited "...at least four times since yesterday." He denies any fever, chills, or rash. He does attest to swelling and irritation to the glans of his penis which he feels is caused by the increased dose of Naproxen. Bilateral Flank Pain Score (Numeric/FACES): 9 - Related Data Allergies Allergy/AdvReac Type Severity Reaction Status Date / Time amoxicillin [Amoxicillin] Allergy Rash Verified 02/15/21 10:44 bee venom protein (honey bee) Allergy Cannot Verified 02/15/21 10:44 Remember butorphanol [From Stadol] Allergy Hallucinati Verified 02/15/21 10:44 ons haloperidol [From Haldol] Allergy Hallucinati Verified 02/15/21 10:44 ons ketorolac tromethamine Allergy Rash Verified 02/15/21 10:44 [From Toradol] metoclopramide [From Reglan] Allergy Agitation Verified 02/15/21 10:44 promethazine HCl Allergy Hallucinati Verified 02/15/21 10:44 [From Phenergan] ons tramadol HCl [From Ultram] Allergy Rash Verified 02/15/21 10:44 Home Meds: Home Meds Tamsulosin HCl [Flomax] 0.4 mg PO BID 05/30/20 [History] Ondansetron [Zofran] 8 mg PO TID PRN 06/21/20 [History] Docusate Sodium [Colace] 100 mg PO BID PRN 10/21/20 [History] Losartan [Cozaar] 25 mg PO BEDTIME 10/24/20 [History] Acetaminophen [Tylenol] 650 mg PO Q4HR PRN 12/28/20 [History] Past Medical History - Past Health History Medical/Surgical History: Denies Medical/Surgical History HEENT History: Reports: None Cardiovascular History: Reports: Hypertension Respiratory History: Reports: None Gastrointestinal History: Reports: Cholelithiasis, Gastritis, GERD Other Gastrointestinal History: gallbladder pain Genitourinary History: Reports: Renal Calculus, Other (See Below) 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 Hematologic History: Reports: None Immunologic History: Reports: None Oncologic (Cancer) History: Reports: None Dermatologic History: Reports: None - Infectious Disease History Infectious Disease History: Reports: Chicken Pox, Novel Coronavirus - Past Surgical History Head Surgeries/Procedures: Reports: None HEENT Surgical History: Reports: None Cardiovascular Surgical History: Reports: None GI Surgical History: Reports: Appendectomy, Cholecystectomy Male Surgical History: Reports: Circumcision Other Male Surgeries/Procedures: Has had kidney biopsy Musculoskeletal Surgical History: Reports: Other (See Below) Other Musculoskeletal Surgeries/Procedures:: left arm Social & Family History - Family History Family Medical History: No Pertinent Family History - Tobacco Use Tobacco Use Status *Q: Never Tobacco User - Caffeine Use Caffeine Use: Reports: None Caffeine Use Comment: 32 oz daily - Recreational Drug Use Recreational Drug Use: No - Living Situation & Occupation Living situation: Reports: Single, Alone Occupation: Employed ED ROS GENERAL - Review of Systems Review Of Systems: Comprehensive ROS is negative, except as noted in HPI. ED EXAM, RENAL/ - Physical Exam Exam: See Below Exam Limited By: No Limitations General Appearance: Alert, No Apparent Distress, Obese. No: Active Emesis Eye Exam: Bilateral Eye: EOMI, Normal Inspection, PERRL (4mm) Throat/Mouth: Normal Inspection, Normal Oropharynx, Normal Voice, No Airway Compromise, Other (Moist mucous membranes) Head: Atraumatic, Normocephalic Neck: Normal Inspection, Supple, Non-Tender, Full Range of Motion Respiratory/Chest: No Respiratory Distress, Lungs Clear, Normal Breath Sounds, No Accessory Muscle Use, Chest Non-Tender Cardiovascular: Normal Peripheral Pulses, Regular Rate, Rhythm, No Edema, No Gallop, No JVD, No Murmur, No Rub GI/Abdominal: Soft, No Distention, No Abnormal Bruit, No Mass, Pelvis Stable, Guarding, Tender (To bilateral suprapubic region). No: Rigid, Rebound (Male) Exam: No Hernia, Normal Inspection, Circumcised, Other (No swelling or irritation to penile glans appreciated by information writer. ). No: Penile Lesions, Rash, Scrotal Swelling, Scrotum Tenderness (L), Scrotum Tenderness (R), Testicular Tenderness (L), Testicular Tenderness (R), Urethral Discharge Back Exam: Normal Inspection, Full Range of Motion, CVA Tenderness (L). No: CVA Tenderness (R) Extremities: Normal Inspection, Normal Range of Motion, Non-Tender, No Pedal Edema, Normal Capillary Refill Neurological: Alert, Oriented, CN II-XII Intact, Normal Cognition, Normal Gait, No Motor/Sensory Deficits Psychiatric: Normal Affect, Normal Mood Skin Exam: Warm, Dry, Intact, Normal Color, No Rash. No: Diaphoretic, Ecchymosis, Erythema, Jaundice, Mottled, Pallor, Petechiae Course - Vital Signs Last Recorded V/S: Last Vital Signs Temp 96.7 F L 02/15/21 10:41 Pulse 72 02/15/21 10:41 Resp 16 02/15/21 10:41 BP 129/80 02/15/21 10:41 Pulse Ox 99 02/15/21 10:41 - Orders/Labs/Meds Labs: Laboratory Tests 02/15/21 02/15/21 Range/Units 10:48 10:48 Urine Color Yellow (YELLOW) Urine Appearance Clear (CLEAR) Urine pH 6.0 (5.0-9.0) Ur Specific [place] >= 1.030 (1.005-1.030) Urine Protein Negative (NEGATIVE) Urine Glucose (UA) Negative (NEGATIVE) Urine Ketones Negative (NEGATIVE) Urine Occult Blood Trace-intact H (NEGATIVE) Urine Nitrite Negative (NEGATIVE) Urine Bilirubin Negative (NEGATIVE) Urine Urobilinogen 0.2 (0.2-1.0) mg/dL Ur Leukocyte Esterase Negative (NEGATIVE) Urine RBC 0-5 /HPF Urine WBC 0-5 (0-5/HPF) /HPF Ur Epithelial Cells Few (NOT SEEN) /HPF Urine Bacteria Not seen (0-FEW/HPF) /HPF Urine Mucus Few H (NOT SEEN) /LPF Urine Opiates Screen Negative (NEGATIVE) Ur Oxycodone Screen Positive H (NEGATIVE) Urine Methadone Screen Negative (NEGATIVE) Ur Barbiturates Screen Negative (NEGATIVE) U Tricyclic Antidepress Negative (NEGATIVE) Ur Phencyclidine Scrn Negative (NEGATIVE) Ur Amphetamine Screen Negative (NEGATIVE) U Methamphetamines Scrn Negative (NEGATIVE) Urine MDMA Screen Negative (NEGATIVE) U Benzodiazepines Scrn Negative (NEGATIVE) Urine Cocaine Screen Negative (NEGATIVE) U Marijuana (THC) Screen Positive H (NEGATIVE) Meds: Medications Discontinued Medications Generic Name Dose Route Start Last Admin Trade Name Chavo PRN Reason Stop Dose Admin Hydromorphone HCl 1 mg 02/15/21 11:07 02/15/21 11:17 Hydromorphone 1 Mg/Ml Syringe IM 02/15/21 11:08 1 mg ONETIME ONE Administration Ondansetron HCl 4 mg 02/15/21 11:10 02/15/21 11:17 Ondansetron 4 Mg/2 Ml Sdv IM 02/15/21 11:11 4 mg ONETIME ONE Administration - Re-Assessments/Exams Free Text/Narrative Re-Assessment/Exam: 02/15/21 Zofran 4mg IM and Dilaudid 1mg IM administered Patient verbalized improvement in symptoms following medication administration. Findings of examination and lab work reviewed with patient. Patient instructed to follow up with his primary care provider regarding today's visit, specificall y for analgesic management for chronic pain. Patient advised to avoid activities which exacerbate his chronic health condition. Patient verbalized understanding and agreement with the plan of care. Departure - Departure Time of Disposition: 11:23 Disposition: Home, Self-Care 01 Condition: Good Clinical Impression: History of Henoch-Schonlein purpura, Loin pain hematuria syndrome - Discharge Information *PRESCRIPTION DRUG MONITORING PROGRAM REVIEWED*: Not Applicable *COPY OF PRESCRIPTION DRUG MONITORING REPORT IN PATIENT NICO: Not Applicable Forms: ED Department Discharge Additional Instructions: 1.) Follow up with your primary care provider tomorrow for chronic pain management plan; especially if your current medications are not providing you relief. 2.) Drink plenty of water to stay hydrated. 3.) Avoid activities which exacerbate your chronic health condition. Sepsis Event Note (ED) - Evaluation Sepsis Screening Result: No Definite Risk
== END 2021-02-15 11:43 | disposition home or self-care (01) ==
LOC: DL.ED 10:27
DX: M54.5 Low back pain (principal); R31.9 Hematuria, unspecified; I10 Essential (primary) hypertension; E66.9 Obesity, unspecified; Z87.2 Personal history of diseases of the skin and subcutaneous tissue; Z68.30 Body mass index [BMI] 30.0-30.9, adult; Z88.0 Allergy status to penicillin; Z91.030 Bee allergy status; Z88.5 Allergy status to narcotic agent; Z88.6 Allergy status to analgesic agent
CPT/HCPCS: 80305; 81001; 96372; 99284; J1170; J2405; 99283

== ENCOUNTER 2021-02-23 10:52 | Emergency (ER) | payer MEDICAID, OTHER ==
[2021-02-23 11:14] VITALS: BP 112/72; PULSE 58
[2021-02-23] MEDS ORDERED: Acetaminophen/oxyCODONE 325-5 MG Tab PO ONE (12:29)
--- NOTE | 2021-02-23 12:31 | EDM.PDOC ---
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 The patient states he is currently experiencing a flair in his symptoms that started last night. His pain is in bilateral flanks, predominantly in the left. Additionally he notes suprapubic pressure, diarrhea, and nausea. He has taken his previously prescribed oxycodone and Zofran ODT. The patient denies fever, shaking chills, vision changes, palpitations, abdominal pain, dysuria, inability to void, bowel/bladder incontinence, or constipation. He reports he is scheduled to meet with his new PCP in two days. He is unsure when he follows up with [facility]. Bilateral Flank Pain Score (Numeric/FACES): 9 - Related Data Allergies Allergy/AdvReac Type Severity Reaction Status Date / Time amoxicillin [Amoxicillin] Allergy Rash Verified 02/23/21 11:07 bee venom protein (honey bee) Allergy Cannot Verified 02/23/21 11:07 Remember butorphanol [From Stadol] Allergy Hallucinati Verified 02/23/21 11:07 ons haloperidol [From Haldol] Allergy Hallucinati Verified 02/23/21 11:07 ons ketorolac tromethamine Allergy Rash Verified 02/23/21 11:07 [From Toradol] metoclopramide [From Reglan] Allergy Agitation Verified 02/23/21 11:07 promethazine HCl Allergy Hallucinati Verified 02/23/21 11:07 [From Phenergan] ons tramadol HCl [From Ultram] Allergy Rash Verified 02/23/21 11:07 Home Meds: Home Meds Tamsulosin HCl [Flomax] 0.4 mg PO BID 05/30/20 [History] Ondansetron [Zofran] 8 mg PO TID PRN 06/21/20 [History] Docusate Sodium [Colace] 100 mg PO BID PRN 10/21/20 [History] Losartan [Cozaar] 25 mg PO BEDTIME 10/24/20 [History] Acetaminophen [Tylenol] 650 mg PO Q4HR PRN 12/28/20 [History] Past Medical History - Past Health History Medical/Surgical History: Denies Medical/Surgical History HEENT History: Reports: None Cardiovascular History: Reports: High Cholesterol, Hypertension Respiratory History: Reports: None Gastrointestinal History: Reports: Cholelithiasis, Gastritis, GERD Other Gastrointestinal History: gallbladder pain Genitourinary History: Reports: Renal Calculus, Other (See Below) 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 Endocrine/Metabolic History: Reports: Obesity/BMI 30+, Other (See Below) Other Endocrine/Metabolic History: SHP as a child Hematologic History: Reports: None Immunologic History: Reports: None Oncologic (Cancer) History: Reports: None Dermatologic History: Reports: None - Infectious Disease History Infectious Disease History: Reports: Chicken Pox, Novel Coronavirus - Past Surgical History Head Surgeries/Procedures: Reports: None HEENT Surgical History: Reports: None Cardiovascular Surgical History: Reports: None GI Surgical History: Reports: Appendectomy, Cholecystectomy Male Surgical History: Reports: Circumcision Other Male Surgeries/Procedures: Has had kidney biopsy Musculoskeletal Surgical History: Reports: Other (See Below) Other Musculoskeletal Surgeries/Procedures:: left arm Social & Family History - Family History Family Medical History: No Pertinent Family History - Tobacco Use Tobacco Use Status *Q: Current Every Day Tobacco User Years of Tobacco use: 20 Packs/Tins Daily: 1 - Caffeine Use Caffeine Use: Reports: Coffee Caffeine Use Comment: 32 oz daily - Recreational Drug Use Recreational Drug Use: Yes Recreational Drug Type: Reports: Marijuana/Hashish - Living Situation & Occupation Living situation: Reports: Single, Alone Occupation: Employed ED ROS GENERAL - Review of Systems Review Of Systems: Comprehensive ROS is negative, except as noted in HPI. ED EXAM, RENAL/ - Physical Exam Exam: See Below Exam Limited By: No Limitations General Appearance: Alert, Mild Distress (Flank pain) Eye Exam: Bilateral Eye: EOMI, Normal Inspection, PERRL (3mm) Ears: Normal External Exam, Hearing Grossly Normal Throat/Mouth: Normal Inspection, Normal Oropharynx, Normal Voice, No Airway Compromise Head: Atraumatic, Normocephalic Neck: Normal Inspection, Supple, Non-Tender, Full Range of Motion Respiratory/Chest: No Respiratory Distress, Lungs Clear, Normal Breath Sounds, No Accessory Muscle Use, Chest Non-Tender Cardiovascular: Normal Peripheral Pulses, Regular Rate, Rhythm, No Edema, No Gallop, No JVD, No Murmur, No Rub GI/Abdominal: Normal Bowel Sounds, Soft, Non-Tender, No Distention, No Abnormal Bruit, No Mass, Pelvis Stable (Male) Exam: Deferred Rectal (Males) Exam: Deferred Back Exam: Normal Inspection, Full Range of Motion, CVA Tenderness (L), CVA Tenderness (R) Extremities: Normal Inspection, Normal Range of Motion, Non-Tender, No Pedal Edema, Normal Capillary Refill Neurological: Alert, Oriented, CN II-XII Intact, Normal Cognition, Normal Gait, No Motor/Sensory Deficits Psychiatric: Anxious Skin Exam: Warm, Dry, Intact, Normal Color, No Rash. No: Cyanosis, Ecchymosis, Erythema, Jaundice, Mottled, Pallor Course - Vital Signs Last Recorded V/S: Last Vital Signs Temp 97.5 F 02/23/21 11:08 Pulse 58 L 02/23/21 11:08 Resp 16 02/23/21 11:08 BP 112/72 02/23/21 11:08 Pulse Ox 100 02/23/21 11:08 - Orders/Labs/Meds Labs: Laboratory Tests 02/23/21 02/23/21 Range/Units 12:00 12:00 Urine Color Yellow (YELLOW) Urine Appearance Clear (CLEAR) Urine pH 5.5 (5.0-9.0) Ur Specific [place] >= 1.030 (1.005-1.030) Urine Protein Negative (NEGATIVE) Urine Glucose (UA) Negative (NEGATIVE) Urine Ketones Negative (NEGATIVE) Urine Occult Blood Small H (NEGATIVE) Urine Nitrite Negative (NEGATIVE) Urine Bilirubin Negative (NEGATIVE) Urine Urobilinogen 0.2 (0.2-1.0) mg/dL Ur Leukocyte Esterase Negative (NEGATIVE) Urine RBC 0-5 /HPF Urine WBC 0-5 (0-5/HPF) /HPF Ur Epithelial Cells Few (NOT SEEN) /HPF Urine Bacteria Rare (0-FEW/HPF) /HPF Urine Mucus Few H (NOT SEEN) /LPF Urine Opiates Screen Positive H (NEGATIVE) Ur Oxycodone Screen Positive H (NEGATIVE) Urine Methadone Screen Negative (NEGATIVE) Ur Barbiturates Screen Negative (NEGATIVE) U Tricyclic Antidepress Negative (NEGATIVE) Ur Phencyclidine Scrn Negative (NEGATIVE) Ur Amphetamine Screen Negative (NEGATIVE) U Methamphetamines Scrn Negative (NEGATIVE) Urine MDMA Screen Negative (NEGATIVE) U Benzodiazepines Scrn Negative (NEGATIVE) Urine Cocaine Screen Negative (NEGATIVE) U Marijuana (THC) Screen Positive H (NEGATIVE) Meds: Medications Discontinued Medications Generic Name Dose Route Start Last Admin Trade Name Freq PRN Reason Stop Dose Admin Oxycodone/Acetaminophen 2 tab 02/23/21 12:29 02/23/21 12:36 Acetaminophen/Oxycodone 325-5 Mg Tab PO 02/23/21 12:30 2 tab ONETIME ONE Administration - Re-Assessments/Exams Free Text/Narrative Re-Assessment/Exam: 02/23/21 Findings of examination and lab work reviewed with patient. Patient notified his UDS was positive for opiates. Will treat pain with previously prescribed medication. Patient instructed to follow up with PCP regarding management of chronic pain. Red flag signs and symptoms which would warrant reevaluation reviewed. Patient verbalized understanding and agreement with the plan of care. Departure - Departure Time of Disposition: 12:29 Disposition: Home, Self-Care 01 Condition: Fair Clinical Impression: Left flank pain, Loin pain hematuria syndrome - Discharge Information *PRESCRIPTION DRUG MONITORING PROGRAM REVIEWED*: Not Applicable *COPY OF PRESCRIPTION DRUG MONITORING REPORT IN PATIENT NICO: Not Applicable Instructions: Pain Medicine Instructions, [id number] Forms: ED Department Discharge Additional Instructions: 1.) Continue appointment with primary care provider regarding ongoing pain management for your chronic health condition. 2.) Drink plenty of water to stay hydrated. 3.) Refrain from activities that exacerbate your chronic health condition. Sepsis Event Note (ED) - Evaluation Sepsis Screening Result: No Definite Risk - Focused Exam Vital Signs: Vital Signs Temp Pulse Resp BP Pulse Ox 02/23/21 11:08 97.5 F 58 L 16 112/72 100
== END 2021-02-23 12:38 | disposition home or self-care (01) ==
LOC: DL.ED 10:52
DX: M54.5 Low back pain (principal); R10.9 Unspecified abdominal pain; R31.9 Hematuria, unspecified; E78.00 Pure hypercholesterolemia, unspecified; I10 Essential (primary) hypertension; E66.9 Obesity, unspecified; Z72.0 Tobacco use; Z68.30 Body mass index [BMI] 30.0-30.9, adult; Z79.899 Other long term (current) drug therapy; Z88.5 Allergy status to narcotic agent; Z88.6 Allergy status to analgesic agent; Z91.030 Bee allergy status; Z88.0 Allergy status to penicillin; Z88.8 Allergy status to other drugs, medicaments and biological substances
CPT/HCPCS: 80305-QW; 81001; 99283; 99284; A9270-GY

== ENCOUNTER 2021-02-24 22:01 | Emergency (ER) | payer MEDICAID, OTHER, SELFPAY ==
[2021-02-24 22:21] VITALS: BP 125/75; PULSE 74
[2021-02-24] MEDS ORDERED: HYDROmorphone 1 MG/ML Syringe IM ONE (22:37)
--- NOTE | 2021-02-24 22:49 | EDM.PDOC ---
ED HPI GENERAL MEDICAL PROBLEM - General Chief Complaint: Genitourinary Problem Stated Complaint: KIDNEY PAIN Time Seen by Provider: 02/24/21 22:25 Source of Information: Reports: Patient History Limitations: Reports: No Limitations - History of Present Illness INITIAL COMMENTS - FREE TEXT/NARRATIVE: ED with usual c/o bilateral flank pain, left greater, nausea. Out of zofran. Not due ofr refill of pain medication until am. Now being follwed in [place] for pain management. Still planning for surgery at [facility] to re-station kidney but need to lose additional weight. Bilateral Flank Pain Score (Numeric/FACES): 8 - Related Data Allergies Allergy/AdvReac Type Severity Reaction Status Date / Time amoxicillin [Amoxicillin] Allergy Rash Verified 03/02/21 06:12 bee venom protein (honey bee) Allergy Cannot Verified 03/02/21 06:12 Remember butorphanol [From Stadol] Allergy Hallucinati Verified 03/02/21 06:12 ons haloperidol [From Haldol] Allergy Hallucinati Verified 03/02/21 06:12 ons ketorolac tromethamine Allergy Rash Verified 03/02/21 06:12 [From Toradol] metoclopramide [From Reglan] Allergy Agitation Verified 03/02/21 06:12 promethazine HCl Allergy Hallucinati Verified 03/02/21 06:12 [From Phenergan] ons tramadol HCl [From Ultram] Allergy Rash Verified 03/02/21 06:12 Home Meds: Home Meds Tamsulosin HCl [Flomax] 0.4 mg PO BID 05/30/20 [History] Ondansetron [Zofran] 8 mg PO TID PRN 06/21/20 [History] Docusate Sodium [Colace] 100 mg PO BID PRN 10/21/20 [History] Losartan [Cozaar] 25 mg PO BEDTIME 10/24/20 [History] Acetaminophen [Tylenol] 650 mg PO Q4HR PRN 12/28/20 [History] Oxycodone/Apap 10 mg PO Q6H PRN 02/28/21 [History] metFORMIN HCl [Metformin ER Gastric] 1,000 mg PO 02/28/21 [History] Past Medical History - Past Health History Medical/Surgical History: Denies Medical/Surgical History HEENT History: Reports: None Cardiovascular History: Reports: High Cholesterol, Hypertension Respiratory History: Reports: None Gastrointestinal History: Reports: Cholelithiasis, Gastritis, GERD Other Gastrointestinal History: gallbladder pain Genitourinary History: Reports: Renal Calculus, Other (See Below) 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 Endocrine/Metabolic History: Reports: Obesity/BMI 30+, Other (See Below) Other Endocrine/Metabolic History: SHP as a child Hematologic History: Reports: None Immunologic History: Reports: None Oncologic (Cancer) History: Reports: None Dermatologic History: Reports: None - Infectious Disease History Infectious Disease History: Reports: Chicken Pox, Novel Coronavirus - Past Surgical History Head Surgeries/Procedures: Reports: None HEENT Surgical History: Reports: None Cardiovascular Surgical History: Reports: None GI Surgical History: Reports: Appendectomy, Cholecystectomy Male Surgical History: Reports: Circumcision Other Male Surgeries/Procedures: Has had kidney biopsy Musculoskeletal Surgical History: Reports: Other (See Below) Other Musculoskeletal Surgeries/Procedures:: left arm Social & Family History - Family History Family Medical History: No Pertinent Family History - Tobacco Use Tobacco Use Status *Q: Never Tobacco User - Caffeine Use Caffeine Use: Reports: None Caffeine Use Comment: 32 oz daily - Recreational Drug Use Recreational Drug Use: No - Living Situation & Occupation Living situation: Reports: Single, Alone Occupation: Employed ED ROS GENERAL - Review of Systems Review Of Systems: Comprehensive ROS is negative, except as noted in HPI. ED EXAM, RENAL/ - Physical Exam Exam: See Below Exam Limited By: No Limitations General Appearance: Alert, Mild Distress, Obese Eye Exam: Bilateral Eye: EOMI, PERRL Ears: Normal External Exam, Hearing Grossly Normal Throat/Mouth: Normal Voice Head: Atraumatic, Normocephalic Neck: Normal Inspection Respiratory/Chest: No Respiratory Distress, Lungs Clear, Normal Breath Sounds Cardiovascular: Regular Rate, Rhythm GI/Abdominal: Normal Bowel Sounds, Soft Back Exam: CVA Tenderness (L), CVA Tenderness (R) Neurological: Alert, Oriented, Normal Cognition Psychiatric: Flat Affect Skin Exam: Warm, Dry, Intact, Normal Color Course - Vital Signs Last Recorded V/S: Last Vital Signs Temp 97 F 02/24/21 22:18 Pulse 74 02/24/21 22:18 Resp 18 02/24/21 22:18 BP 125/75 02/24/21 22:18 Pulse Ox 97 02/24/21 22:18 - Orders/Labs/Meds Meds: Medications Discontinued Medications Generic Name Dose Route Start Last Admin Trade Name Chavo PRN Reason Stop Dose Admin Hydromorphone HCl 1 mg 02/24/21 22:37 02/24/21 22:57 Hydromorphone 1 Mg/Ml Syringe IM 02/24/21 22:38 1 mg ONETIME ONE Administration Departure - Departure Time of Disposition: 22:46 Disposition: Home, Self-Care 01 Condition: Good Clinical Impression: Flank pain, Chronic pain - Discharge Information *PRESCRIPTION DRUG MONITORING PROGRAM REVIEWED*: Yes *COPY OF PRESCRIPTION DRUG MONITORING REPORT IN PATIENT NICO: No Instructions: Chronic Pain, Adult Forms: ED Department Discharge Additional Instructions: fluids zofran for nausea follow up in clinic with PCP Sepsis Event Note (ED) - Evaluation Sepsis Screening Result: No Definite Risk
== END 2021-02-24 22:59 | disposition home or self-care (01) ==
LOC: DL.ED 22:01
DX: R10.9 Unspecified abdominal pain (principal); G89.29 Other chronic pain; E78.00 Pure hypercholesterolemia, unspecified; I10 Essential (primary) hypertension; E66.9 Obesity, unspecified; Z68.45 Body mass index [BMI] 70 or greater, adult; Z88.0 Allergy status to penicillin; Z91.030 Bee allergy status; Z88.5 Allergy status to narcotic agent; Z88.6 Allergy status to analgesic agent; Z79.899 Other long term (current) drug therapy
CPT/HCPCS: 96372; 99283; J1170

== ENCOUNTER 2021-02-28 19:35 | Emergency (ER) | payer MEDICAID ==
--- NOTE | 2021-02-28 19:53 | EDM.PDOC ---
ED HPI GENERAL MEDICAL PROBLEM - General Chief Complaint: Genitourinary Problem Stated Complaint: KIDNEY PAIN Time Seen by Provider: 02/28/21 19:53 Source of Information: Reports: Patient, RN, RN Notes Reviewed History Limitations: Reports: No Limitations - History of Present Illness INITIAL COMMENTS - FREE TEXT/NARRATIVE: Patient is a 30-year-old male who presents to ER with complaint of bilateral flank pain, blood in urine, flare-up of chronic pain. Patient states he is recently switched PCPs to [facility] in [place], [place]. Patient states he is getting oral medications through his PCP every 2 weeks. Onset: Gradual Bilateral Pain Score (Numeric/FACES): 8 - Related Data Allergies Allergy/AdvReac Type Severity Reaction Status Date / Time amoxicillin [Amoxicillin] Allergy Rash Verified 02/28/21 20:02 bee venom protein (honey bee) Allergy Cannot Verified 02/28/21 20:02 Remember butorphanol [From Stadol] Allergy Hallucinati Verified 02/28/21 20:02 ons haloperidol [From Haldol] Allergy Hallucinati Verified 02/28/21 20:02 ons ketorolac tromethamine Allergy Rash Verified 02/28/21 20:02 [From Toradol] metoclopramide [From Reglan] Allergy Agitation Verified 02/28/21 20:02 promethazine HCl Allergy Hallucinati Verified 02/28/21 20:02 [From Phenergan] ons tramadol HCl [From Ultram] Allergy Rash Verified 02/28/21 20:02 Home Meds: Home Meds Tamsulosin HCl [Flomax] 0.4 mg PO BID 05/30/20 [History] Ondansetron [Zofran] 8 mg PO TID PRN 06/21/20 [History] Docusate Sodium [Colace] 100 mg PO BID PRN 10/21/20 [History] Losartan [Cozaar] 25 mg PO BEDTIME 10/24/20 [History] Acetaminophen [Tylenol] 650 mg PO Q4HR PRN 12/28/20 [History] Oxycodone/Apap PRN 02/28/21 [History] metFORMIN HCl [Metformin ER Gastric] 1,000 mg PO 02/28/21 [History] Past Medical History - Past Health History Medical/Surgical History: Denies Medical/Surgical History HEENT History: Reports: None Cardiovascular History: Reports: High Cholesterol, Hypertension Respiratory History: Reports: None Gastrointestinal History: Reports: Cholelithiasis, Gastritis, GERD Other Gastrointestinal History: gallbladder pain Genitourinary History: Reports: Renal Calculus, Other (See Below) 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 Endocrine/Metabolic History: Reports: Obesity/BMI 30+, Other (See Below) Other Endocrine/Metabolic History: SHP as a child Hematologic History: Reports: None Immunologic History: Reports: None Oncologic (Cancer) History: Reports: None Dermatologic History: Reports: None - Infectious Disease History Infectious Disease History: Reports: Chicken Pox, Novel Coronavirus - Past Surgical History Head Surgeries/Procedures: Reports: None HEENT Surgical History: Reports: None Cardiovascular Surgical History: Reports: None GI Surgical History: Reports: Appendectomy, Cholecystectomy Male Surgical History: Reports: Circumcision Other Male Surgeries/Procedures: Has had kidney biopsy Musculoskeletal Surgical History: Reports: Other (See Below) Other Musculoskeletal Surgeries/Procedures:: left arm Social & Family History - Family History Family Medical History: No Pertinent Family History - Caffeine Use Caffeine Use: Reports: None Caffeine Use Comment: 32 oz daily - Living Situation & Occupation Living situation: Reports: Single, Alone Occupation: Employed ED ROS GENERAL - Review of Systems Review Of Systems: Comprehensive ROS is negative, except as noted in HPI. ED EXAM, RENAL/ - Physical Exam Exam: See Below Exam Limited By: No Limitations General Appearance: Alert, WD/WN, Mild Distress Eye Exam: Bilateral Eye: EOMI, Normal Inspection Ears: Normal External Exam, Hearing Grossly Normal Nose: Normal Inspection Throat/Mouth: Normal Inspection, Normal Voice, No Airway Compromise Head: Atraumatic, Normocephalic Neck: Normal Inspection Respiratory/Chest: No Respiratory Distress, Lungs Clear, Normal Breath Sounds, No Accessory Muscle Use, Chest Non-Tender Cardiovascular: Normal Peripheral Pulses, Regular Rate, Rhythm, No Edema, No Gallop, No JVD, No Murmur, No Rub GI/Abdominal: Normal Bowel Sounds, Soft, Tender (Male) Exam: Deferred Rectal (Males) Exam: Deferred Back Exam: Normal Inspection, Full Range of Motion, CVA Tenderness (L), CVA Tenderness (R) Extremities: Normal Inspection, Normal Range of Motion, Non-Tender, Normal Capillary Refill, No Pedal Edema Neurological: Alert, Oriented, CN II-XII Intact, Normal Cognition, Normal Gait, Normal Reflexes, No Motor/Sensory Deficits Psychiatric: Normal Affect, Normal Mood Skin Exam: Warm, Dry, Intact, Normal Color, No Rash Lymphatic: No Adenopathy Course - Vital Signs Last Recorded V/S: Last Vital Signs Temp 98.1 F 02/28/21 19:40 Pulse 79 02/28/21 19:40 Resp 17 02/28/21 19:40 BP 124/65 02/28/21 19:40 Pulse Ox 99 02/28/21 19:40 - Orders/Labs/Meds Meds: Medications Discontinued Medications Generic Name Dose Route Start Last Admin Trade Name Chavo PRN Reason Stop Dose Admin Hydromorphone HCl 1 mg 02/28/21 20:02 02/28/21 20:13 Hydromorphone 1 Mg/Ml Syringe IM 02/28/21 20:03 1 mg ONETIME ONE Administration Departure - Departure Time of Disposition: 20:05 Disposition: Home, Self-Care 01 Condition: Fair Clinical Impression: Loin pain hematuria syndrome - Discharge Information *PRESCRIPTION DRUG MONITORING PROGRAM REVIEWED*: No *COPY OF PRESCRIPTION DRUG MONITORING REPORT IN PATIENT NICO: No Instructions: Flank Pain, Adult, [id number], Hematuria, Adult Forms: ED Department Discharge Additional Instructions: Follow up with your primary care facility Sepsis Event Note (ED) - Focused Exam Vital Signs: Vital Signs Temp Pulse Resp BP Pulse Ox 02/28/21 19:40 98.1 F 79 17 124/65 99
[2021-02-28 19:57] VITALS: BP 124/65; PULSE 79
[2021-02-28] MEDS ORDERED: HYDROmorphone 1 MG/ML Syringe IM ONE (20:02)
== END 2021-02-28 20:33 | disposition home or self-care (01) ==
LOC: DL.ED 19:35
DX: M54.9 Dorsalgia, unspecified (principal); R31.9 Hematuria, unspecified; E78.00 Pure hypercholesterolemia, unspecified; I10 Essential (primary) hypertension; E66.9 Obesity, unspecified; Z68.45 Body mass index [BMI] 70 or greater, adult; Z88.0 Allergy status to penicillin; Z91.030 Bee allergy status; Z88.5 Allergy status to narcotic agent; Z88.6 Allergy status to analgesic agent; Z79.84 Long term (current) use of oral hypoglycemic drugs
CPT/HCPCS: 96372; 99283; J1170

== ENCOUNTER 2021-03-02 06:02 | Emergency (ER) | payer MEDICAID, OTHER ==
[2021-03-02 06:17] VITALS: BP 129/88; PULSE 59
--- NOTE | 2021-03-02 06:17 | EDM.PDOC ---
ED HPI GENERAL MEDICAL PROBLEM - General Chief Complaint: Genitourinary Problem Stated Complaint: SEVERE KIDNEY PAIN Time Seen by Provider: 03/02/21 06:16 Source of Information: Reports: Patient, RN, RN Notes Reviewed History Limitations: Reports: No Limitations - History of Present Illness INITIAL COMMENTS - FREE TEXT/NARRATIVE: Patient is a 30-year-old male who presents to ER with complaint of bilateral flank pain, left greater than right. Patient admits to blood in his urine. States he took his oxycodone at 03 30 this morning and did not touch the pain. Patient describes it as a sharp pain. No changes in this chronic pain from other episodes or visits to the ER. Onset: Other (chronic) - Related Data Allergies Allergy/AdvReac Type Severity Reaction Status Date / Time amoxicillin [Amoxicillin] Allergy Rash Verified 03/02/21 06:12 bee venom protein (honey bee) Allergy Cannot Verified 03/02/21 06:12 Remember butorphanol [From Stadol] Allergy Hallucinati Verified 03/02/21 06:12 ons haloperidol [From Haldol] Allergy Hallucinati Verified 03/02/21 06:12 ons ketorolac tromethamine Allergy Rash Verified 03/02/21 06:12 [From Toradol] metoclopramide [From Reglan] Allergy Agitation Verified 03/02/21 06:12 promethazine HCl Allergy Hallucinati Verified 03/02/21 06:12 [From Phenergan] ons tramadol HCl [From Ultram] Allergy Rash Verified 03/02/21 06:12 Home Meds: Home Meds Tamsulosin HCl [Flomax] 0.4 mg PO BID 05/30/20 [History] Ondansetron [Zofran] 8 mg PO TID PRN 06/21/20 [History] Docusate Sodium [Colace] 100 mg PO BID PRN 10/21/20 [History] Losartan [Cozaar] 25 mg PO BEDTIME 10/24/20 [History] Acetaminophen [Tylenol] 650 mg PO Q4HR PRN 12/28/20 [History] Oxycodone/Apap 10 mg PO Q6H PRN 02/28/21 [History] metFORMIN HCl [Metformin ER Gastric] 1,000 mg PO 02/28/21 [History] Past Medical History - Past Health History Medical/Surgical History: Denies Medical/Surgical History HEENT History: Reports: None Cardiovascular History: Reports: High Cholesterol, Hypertension Respiratory History: Reports: None Gastrointestinal History: Reports: Cholelithiasis, Gastritis, GERD Other Gastrointestinal History: gallbladder pain Genitourinary History: Reports: Renal Calculus, Other (See Below) 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 Endocrine/Metabolic History: Reports: Obesity/BMI 30+, Other (See Below) Other Endocrine/Metabolic History: SHP as a child Hematologic History: Reports: None Immunologic History: Reports: None Oncologic (Cancer) History: Reports: None Dermatologic History: Reports: None - Infectious Disease History Infectious Disease History: Reports: Chicken Pox, Novel Coronavirus - Past Surgical History Head Surgeries/Procedures: Reports: None HEENT Surgical History: Reports: None Cardiovascular Surgical History: Reports: None GI Surgical History: Reports: Appendectomy, Cholecystectomy Male Surgical History: Reports: Circumcision Other Male Surgeries/Procedures: Has had kidney biopsy Musculoskeletal Surgical History: Reports: Other (See Below) Other Musculoskeletal Surgeries/Procedures:: left arm Social & Family History - Family History Family Medical History: No Pertinent Family History - Caffeine Use Caffeine Use: Reports: None Caffeine Use Comment: 32 oz daily - Living Situation & Occupation Living situation: Reports: Single, Alone Occupation: Employed ED ROS GENERAL - Review of Systems Review Of Systems: Comprehensive ROS is negative, except as noted in HPI. ED EXAM, RENAL/ - Physical Exam Exam: See Below Exam Limited By: No Limitations General Appearance: Alert, WD/WN, Mild Distress Eye Exam: Bilateral Eye: EOMI, Normal Inspection Ears: Normal External Exam, Hearing Grossly Normal Nose: Normal Inspection Throat/Mouth: Normal Inspection, Normal Voice, No Airway Compromise Head: Atraumatic, Normocephalic Neck: Normal Inspection, Supple, Non-Tender, Full Range of Motion Respiratory/Chest: No Respiratory Distress, Lungs Clear, Normal Breath Sounds, No Accessory Muscle Use, Chest Non-Tender Cardiovascular: Normal Peripheral Pulses, Regular Rate, Rhythm, No Edema, No Gallop, No JVD, No Murmur, No Rub GI/Abdominal: Normal Bowel Sounds, Soft, Non-Tender (Male) Exam: Deferred Rectal (Males) Exam: Deferred Back Exam: Normal Inspection, Full Range of Motion, CVA Tenderness (L), CVA Tenderness (R) Extremities: Normal Inspection, Normal Range of Motion, Non-Tender, Normal Capillary Refill, No Pedal Edema Neurological: Alert, Oriented, Normal Cognition, Normal Gait, No Motor/Sensory Deficits Psychiatric: Normal Affect, Normal Mood Skin Exam: Warm, Dry, Intact, Normal Color, No Rash Lymphatic: No Adenopathy Course - Vital Signs Last Recorded V/S: Last Vital Signs Temp 97.8 F 03/02/21 06:16 Pulse 59 L 03/02/21 06:16 Resp 18 03/02/21 06:16 BP 129/88 03/02/21 06:16 Pulse Ox 100 03/02/21 06:16 - Orders/Labs/Meds Meds: Medications Discontinued Medications Generic Name Dose Route Start Last Admin Trade Name Karthikeyanq PRN Reason Stop Dose Admin Hydromorphone HCl 1 mg 03/02/21 06:19 Hydromorphone 1 Mg/Ml Syringe IVPUSH 03/02/21 06:20 ONETIME ONE Departure - Departure Time of Disposition: 06:35 Disposition: Home, Self-Care 01 Condition: Good Clinical Impression: Loin pain hematuria syndrome - Discharge Information *PRESCRIPTION DRUG MONITORING PROGRAM REVIEWED*: No *COPY OF PRESCRIPTION DRUG MONITORING REPORT IN PATIENT NICO: No Forms: ED Department Discharge Additional Instructions: Follow up with your primary care facility Sepsis Event Note (ED) - Focused Exam Vital Signs: Vital Signs Temp Pulse Resp BP Pulse Ox 03/02/21 06:16 97.8 F 59 L 18 129/88 100
[2021-03-02] MEDS ORDERED: HYDROmorphone 1 MG/ML Syringe IVPUSH ONE (06:19)
== END 2021-03-02 06:43 | disposition home or self-care (01) ==
LOC: DL.ED 06:02
DX: M54.5 Low back pain (principal); R31.9 Hematuria, unspecified; E78.00 Pure hypercholesterolemia, unspecified; I10 Essential (primary) hypertension; E66.9 Obesity, unspecified; Z68.30 Body mass index [BMI] 30.0-30.9, adult; Z79.84 Long term (current) use of oral hypoglycemic drugs; Z88.0 Allergy status to penicillin; Z88.5 Allergy status to narcotic agent; Z91.030 Bee allergy status; Z88.6 Allergy status to analgesic agent; Z79.899 Other long term (current) drug therapy
CPT/HCPCS: 96374; 99283; J1170

== ENCOUNTER 2021-03-06 09:53 | Emergency (ER) | payer MEDICAID, OTHER, SELFPAY ==
[2021-03-06 10:12] VITALS: BP 109/61; PULSE 69
--- NOTE | 2021-03-06 10:29 | EDM.PDOC ---
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 The patient reports his symptoms began about 0100 today and have progressed in severity since that time despite taking a dose of his previously prescribed medication at that time. Additionally, he attest to transient chills and left lower quadrant pain. He states he was unable to see his PCP two days ago, as previously scheduled, as he was out of town. Instead he saw a colleague of his PCP who prescribed him Dilaudid 1mg PO, Prednisone 20mg PO, and Bactrim for a UTI. He states he has an appointment with his PCP scheduled for this coming Sunday, five days from now. The patient denies fever, palpitations, vomiting, diarrhea, or constipation. He has not taken any additional medications for his pain. Bilateral Lower Back Pain Score (Numeric/FACES): 8 - Related Data Allergies Allergy/AdvReac Type Severity Reaction Status Date / Time amoxicillin [Amoxicillin] Allergy Rash Verified 03/06/21 10:12 bee venom protein (honey bee) Allergy Cannot Verified 03/06/21 10:12 Remember butorphanol [From Stadol] Allergy Hallucinati Verified 03/06/21 10:12 ons haloperidol [From Haldol] Allergy Hallucinati Verified 03/06/21 10:12 ons ketorolac tromethamine Allergy Rash Verified 03/06/21 10:12 [From Toradol] metoclopramide [From Reglan] Allergy Agitation Verified 03/06/21 10:12 promethazine HCl Allergy Hallucinati Verified 03/06/21 10:12 [From Phenergan] ons tramadol HCl [From Ultram] Allergy Rash Verified 03/06/21 10:12 Home Meds: Home Meds Tamsulosin HCl [Flomax] 0.4 mg PO BID 05/30/20 [History] Ondansetron [Zofran] 8 mg PO TID PRN 06/21/20 [History] Docusate Sodium [Colace] 100 mg PO BID PRN 10/21/20 [History] Losartan [Cozaar] 25 mg PO BEDTIME 10/24/20 [History] Acetaminophen [Tylenol] 650 mg PO Q4HR PRN 12/28/20 [History] Oxycodone/Apap 10 mg PO Q6H PRN 02/28/21 [History] metFORMIN HCl [Metformin ER Gastric] 1,000 mg PO 02/28/21 [History] Past Medical History - Past Health History Medical/Surgical History: Denies Medical/Surgical History HEENT History: Reports: None Cardiovascular History: Reports: High Cholesterol, Hypertension Respiratory History: Reports: None Gastrointestinal History: Reports: Cholelithiasis, Gastritis, GERD Other Gastrointestinal History: gallbladder pain Genitourinary History: Reports: Renal Calculus, Other (See Below) 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 Hematologic History: Reports: None Immunologic History: Reports: None Oncologic (Cancer) History: Reports: None Dermatologic History: Reports: None - Infectious Disease History Infectious Disease History: Reports: Chicken Pox, Novel Coronavirus - Past Surgical History Head Surgeries/Procedures: Reports: None HEENT Surgical History: Reports: None Cardiovascular Surgical History: Reports: None GI Surgical History: Reports: Appendectomy, Cholecystectomy Male Surgical History: Reports: Circumcision Other Male Surgeries/Procedures: Has had kidney biopsy Musculoskeletal Surgical History: Reports: Other (See Below) Other Musculoskeletal Surgeries/Procedures:: left arm Social & Family History - Family History Family Medical History: No Pertinent Family History - Tobacco Use Tobacco Use Status *Q: Never Tobacco User - Caffeine Use Caffeine Use: Reports: None Caffeine Use Comment: 32 oz daily - Recreational Drug Use Recreational Drug Use: No - Living Situation & Occupation Living situation: Reports: Single, Alone Occupation: Employed ED ROS GENERAL - Review of Systems Review Of Systems: Comprehensive ROS is negative, except as noted in HPI. ED EXAM, RENAL/ - Physical Exam Exam: See Below Exam Limited By: No Limitations General Appearance: Alert, No Apparent Distress Eye Exam: Bilateral Eye: EOMI, Normal Inspection, PERRL (3mm) Ears: Normal External Exam, Hearing Grossly Normal Nose: Normal Inspection, Normal Mucosa, No Blood Throat/Mouth: Normal Inspection, Normal Oropharynx, Normal Voice, No Airway C ompromise Head: Atraumatic, Normocephalic Neck: Normal Inspection, Supple, Non-Tender, Full Range of Motion Respiratory/Chest: No Respiratory Distress, Lungs Clear, Normal Breath Sounds, No Accessory Muscle Use, Chest Non-Tender Cardiovascular: Normal Peripheral Pulses, Regular Rate, Rhythm, No Edema, No Gallop, No JVD, No Murmur, No Rub GI/Abdominal: Normal Bowel Sounds, Soft, No Distention, No Abnormal Bruit, No Mass, Pelvis Stable, Tender (To suprapubic area and LLQ). No: Guarding, Rigid, Rebound (Male) Exam: Deferred Rectal (Males) Exam: Deferred Back Exam: Normal Inspection, Full Range of Motion, CVA Tenderness (L), CVA Tenderness (R) Extremities: Normal Inspection, Normal Range of Motion, Non-Tender, No Pedal Edema, Normal Capillary Refill Neurological: Alert, Oriented, CN II-XII Intact, Normal Cognition, Normal Gait, No Motor/Sensory Deficits Psychiatric: Normal Affect, Normal Mood Skin Exam: Warm, Dry, Intact, Normal Color, No Rash. No: Cyanosis, Jaundice, Mottled, Pallor Course - Vital Signs Last Recorded V/S: Last Vital Signs Temp 96.5 F L 03/06/21 10:08 Pulse 69 03/06/21 10:08 Resp 16 03/06/21 10:08 BP 109/61 03/06/21 10:08 Pulse Ox 99 03/06/21 10:08 - Orders/Labs/Meds Labs: Laboratory Tests 03/06/21 03/06/21 Range/Units 10:20 10:20 Urine Color Yellow (YELLOW) Urine Appearance Clear (CLEAR) Urine pH 6.0 (5.0-9.0) Ur Specific [place] >= 1.030 (1.005-1.030) Urine Protein Trace H (NEGATIVE) Urine Glucose (UA) Negative (NEGATIVE) Urine Ketones Negative (NEGATIVE) Urine Occult Blood Trace-intact H (NEGATIVE) Urine Nitrite Negative (NEGATIVE) Urine Bilirubin Negative (NEGATIVE) Urine Urobilinogen 0.2 (0.2-1.0) mg/dL Ur Leukocyte Esterase Negative (NEGATIVE) Urine RBC 0-5 /HPF Urine WBC 0-5 (0-5/HPF) /HPF Ur Epithelial Cells Few (NOT SEEN) /HPF Urine Bacteria Rare (0-FEW/HPF) /HPF Urine Mucus Many H (NOT SEEN) /LPF Urine Opiates Screen Negative (NEGATIVE) Ur Oxycodone Screen Negative (NEGATIVE) Urine Methadone Screen Negative (NEGATIVE) Ur Barbiturates Screen Negative (NEGATIVE) U Tricyclic Antidepress Negative (NEGATIVE) Ur Phencyclidine Scrn Negative (NEGATIVE) Ur Amphetamine Screen Negative (NEGATIVE) U Methamphetamines Scrn Negative (NEGATIVE) Urine MDMA Screen Negative (NEGATIVE) U Benzodiazepines Scrn Negative (NEGATIVE) Urine Cocaine Screen Negative (NEGATIVE) U Marijuana (THC) Screen Positive H (NEGATIVE) Meds: Medications Discontinued Medications Generic Name Dose Route Start Last Admin Trade Name Freq PRN Reason Stop Dose Admin Ondansetron HCl 4 mg 03/06/21 10:50 03/06/21 10:58 Ondansetron 4 Mg Tab.Dis PO 03/06/21 10:51 4 mg ONETIME ONE Administration Oxycodone/Acetaminophen 2 tab 03/06/21 10:50 03/06/21 10:58 Acetaminophen/Oxycodone 325-5 Mg Tab PO 03/06/21 10:51 2 tab ONETIME ONE Administration - Re-Assessments/Exams Free Text/Narrative Re-Assessment/Exam: 03/06/21 Findings of examination and lab work reviewed with patient, including lack of oxycodone or opiates in urine drug screen. Patient instructed to follow up with primary care provider regarding today's visit. Patient verbalized understanding and agreement with the plan of care. Departure - Departure Time of Disposition: 10:53 Disposition: Home, Self-Care 01 Condition: Good Clinical Impression: History of Henoch-Schonlein purpura - Discharge Information *PRESCRIPTION DRUG MONITORING PROGRAM REVIEWED*: Not Applicable *COPY OF PRESCRIPTION DRUG MONITORING REPORT IN PATIENT NICO: Not Applicable Instructions: Pain Medicine Instructions, [id number] Referrals: PCP,None [Primary Care Provider] - Forms: ED Department Discharge Additional Instructions: 1.) Follow up with primary care provider regarding today's visit and plan for ongoing pain management. 2.) Refrain from activities that cause exacerbation in your pain. Sepsis Event Note (ED) - Evaluation Sepsis Screening Result: No Definite Risk - Focused Exam Vital Signs: Vital Signs Temp Pulse Resp BP Pulse Ox 03/06/21 10:08 96.5 F L 69 16 109/61 99
[2021-03-06] MEDS ORDERED: Acetaminophen/oxyCODONE 325-5 MG Tab PO ONE (10:50)
[2021-03-06] MEDS ORDERED: Ondansetron 4 MG Tab.DIS PO ONE (10:50)
== END 2021-03-06 11:29 | disposition home or self-care (01) ==
LOC: DL.ED 09:53
DX: Z87.2 Personal history of diseases of the skin and subcutaneous tissue (principal); I10 Essential (primary) hypertension; E11.9 Type 2 diabetes mellitus without complications; E66.9 Obesity, unspecified; Z86.16 Personal history of COVID-19; Z88.0 Allergy status to penicillin; Z91.030 Bee allergy status; Z88.8 Allergy status to other drugs, medicaments and biological substances; Z88.5 Allergy status to narcotic agent; Z79.84 Long term (current) use of oral hypoglycemic drugs; Z79.899 Other long term (current) drug therapy
CPT/HCPCS: 80305; 81001; 99284; A9270

== ENCOUNTER 2021-03-08 08:30 | Emergency (ER) | payer MEDICAID ==
[2021-03-08 08:46] VITALS: BP 140/77; PULSE 64
--- NOTE | 2021-03-08 08:46 | EDM.PDOC ---
ED HPI GENERAL MEDICAL PROBLEM - General Chief Complaint: Genitourinary Problem Stated Complaint: KIDNEY PAIN Time Seen by Provider: 03/08/21 08:45 Source of Information: Reports: Patient, Old Records, RN, RN Notes Reviewed History Limitations: Reports: No Limitations - History of Present Illness INITIAL COMMENTS - FREE TEXT/NARRATIVE: Elvin is a 30 y/o male with a history of HSP and loin pain hematuria syndrome who presents to the ED via personal vehicle with complaints of bilateral flank pain, hematuria, nausea, and post-prandial pain. The patient reports he has not picked up his prescriptions that were prescribed to him on 03/04/21 from a provider as his primary care facility as he has been busy mowing. He reports his pain is similar to all previous encounters, worse on the left flank that the right flank with radiation into the left suprapubic area. He denies fever, chest pain, palpitations, vomiting, diarrhea, constipation, dysuria, hematochezia, or melena. The patient reports he took a dose of oxycodone last evening, but feels these medications are no longer providing adequate relief of his symptoms. He has not taken any Zofran. The patient reports he has not been in contact with the [facility] regarding his surgical plan as he was told he needs to be at 305lbs prior to surgery. He states he did not attempt to call his primary care facility this morning as "..it's too far away." Additionally, the patient is reporting pain about 10-15 minutes after eating that lasts for about an hour and spontaneously stops. He has not taken any m edications for these symptoms. He denies hematemesis. Abdomen Pain Score (Numeric/FACES): 10 - Related Data Allergies Allergy/AdvReac Type Severity Reaction Status Date / Time amoxicillin [Amoxicillin] Allergy Rash Verified 03/08/21 08:47 bee venom protein (honey bee) Allergy Cannot Verified 03/08/21 08:47 Remember butorphanol [From Stadol] Allergy Hallucinati Verified 03/08/21 08:47 ons haloperidol [From Haldol] Allergy Hallucinati Verified 03/08/21 08:47 ons ketorolac tromethamine Allergy Rash Verified 03/08/21 08:47 [From Toradol] metoclopramide [From Reglan] Allergy Agitation Verified 03/08/21 08:47 promethazine HCl Allergy Hallucinati Verified 03/08/21 08:47 [From Phenergan] ons tramadol HCl [From Ultram] Allergy Rash Verified 03/08/21 08:47 Home Meds: Home Meds Tamsulosin HCl [Flomax] 0.4 mg PO BID 05/30/20 [History] Ondansetron [Zofran] 8 mg PO TID PRN 06/21/20 [History] Docusate Sodium [Colace] 100 mg PO BID PRN 10/21/20 [History] Losartan [Cozaar] 25 mg PO BEDTIME 10/24/20 [History] Acetaminophen [Tylenol] 650 mg PO Q4HR PRN 12/28/20 [History] Oxycodone/Apap 10 mg PO Q6H PRN 02/28/21 [History] metFORMIN HCl [Metformin ER Gastric] 1,000 mg PO 02/28/21 [History] Past Medical History - Past Health History Medical/Surgical History: Denies Medical/Surgical History HEENT History: Reports: None Cardiovascular History: Reports: High Cholesterol, Hypertension Respiratory History: Reports: None Gastrointestinal History: Reports: Cholelithiasis, Gastritis, GERD Other Gastrointestinal History: gallbladder pain Genitourinary History: Reports: Renal Calculus, Other (See Below) 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 Hematologic History: Reports: None Immunologic History: Reports: None Oncologic (Cancer) History: Reports: None Dermatologic History: Reports: None - Infectious Disease History Infectious Disease History: Reports: Chicken Pox, Novel Coronavirus - Past Surgical History Head Surgeries/Procedures: Reports: None HEENT Surgical History: Reports: None Cardiovascular Surgical History: Reports: None GI Surgical History: Reports: Appendectomy, Cholecystectomy Male Surgical History: Reports: Circumcision Other Male Surgeries/Procedures: Has had kidney biopsy Musculoskeletal Surgical History: Reports: Other (See Below) Other Musculoskeletal Surgeries/Procedures:: left arm Social & Family History - Family History Family Medical History: No Pertinent Family History - Caffeine Use Caffeine Use: Reports: None Caffeine Use Comment: 32 oz daily - Living Situation & Occupation Living situation: Reports: Single, Alone Occupation: Employed ED ROS GENERAL - Review of Systems Review Of Systems: Comprehensive ROS is negative, except as noted in HPI. ED EXAM, RENAL/ - Physical Exam Exam: See Below Exam Limited By: No Limitations General Appearance: Alert, No Apparent Distress Eye Exam: Bilateral Eye: EOMI, Normal Inspection, PERRL (3mm) Ears: Normal External Exam, Hearing Grossly Normal Nose: Normal Inspection, Normal Mucosa, No Blood Throat/Mouth: Normal Inspection, Normal Oropharynx, Normal Voice, No Airway Compromise Head: Atraumatic, Normocephalic Neck: Normal Inspection, Supple, Non-Tender, Full Range of Motion Respiratory/Chest: No Respiratory Distress, Lungs Clear, Normal Breath Sounds, No Accessory Muscle Use, Chest Non-Tender Cardiovascular: Normal Peripheral Pulses, Regular Rate, Rhythm, No Edema, No Gal lop, No JVD, No Murmur, No Rub GI/Abdominal: Normal Bowel Sounds, Soft, No Distention, No Abnormal Bruit, No Mass, Pelvis Stable, Tender (To suprapubic regoin) (Male) Exam: Deferred Rectal (Males) Exam: Deferred Back Exam: Full Range of Motion, CVA Tenderness (L), CVA Tenderness (R) Extremities: Normal Inspection, Normal Range of Motion, Non-Tender, Normal Capillary Refill, No Pedal Edema Neurological: Alert, Oriented, CN II-XII Intact, Normal Cognition, Normal Gait, Normal Reflexes, No Motor/Sensory Deficits Psychiatric: Normal Affect, Normal Mood Skin Exam: Warm, Dry, Intact, Normal Color, No Rash. No: Cyanosis, Jaundice, Mottled, Pallor Course - Vital Signs Last Recorded V/S: Last Vital Signs Temp 96.1 F L 03/08/21 08:43 Pulse 64 03/08/21 08:43 Resp 14 03/08/21 08:43 BP 140/77 03/08/21 08:43 Pulse Ox 100 03/08/21 08:43 - Orders/Labs/Meds Labs: Laboratory Tests 03/08/21 03/08/21 Range/Units 08:34 08:34 Urine Color Yellow (YELLOW) Urine Appearance Slightly cloudy (CLEAR) Urine pH 6.0 (5.0-9.0) Ur Specific [place] >= 1.030 (1.005-1.030) Urine Protein Negative (NEGATIVE) Urine Glucose (UA) Negative (NEGATIVE) Urine Ketones Negative (NEGATIVE) Urine Occult Blood Large H (NEGATIVE) Urine Nitrite Negative (NEGATIVE) Urine Bilirubin Negative (NEGATIVE) Urine Urobilinogen 0.2 (0.2-1.0) mg/dL Ur Leukocyte Esterase Negative (NEGATIVE) Urine RBC 50-75 H /HPF Urine WBC Not seen (0-5/HPF) /HPF Ur Epithelial Cells Few (NOT SEEN) /HPF Amorphous Sediment Occasional (NOT SEEN) /HPF Urine Bacteria Not seen (0-FEW/HPF) /HPF Urine Mucus Few H (NOT SEEN) /LPF Urine Opiates Screen Positive H (NEGATIVE) Ur Oxycodone Screen Positive H (NEGATIVE) Urine Methadone Screen Negative (NEGATIVE) Ur Barbiturates Screen Negative (NEGATIVE) U Tricyclic Antidepress Negative (NEGATIVE) Ur Phencyclidine Scrn Negative (NEGATIVE) Ur Amphetamine Screen Negative (NEGATIVE) U Methamphetamines Scrn Negative (NEGATIVE) Urine MDMA Screen Negative (NEGATIVE) U Benzodiazepines Scrn Negative (NEGATIVE) Urine Cocaine Screen Negative (NEGATIVE) U Marijuana (THC) Screen Positive H (NEGATIVE) Meds: Medications Discontinued Medications Generic Name Dose Route Start Last Admin Trade Name Freq PRN Reason Stop Dose Admin Omeprazole 20 mg 03/08/21 09:14 03/08/21 09:31 Omeprazole 20 Mg Cap.Cr PO 03/08/21 09:15 20 mg ONETIME ONE Administration Ondansetron HCl 4 mg 03/08/21 09:14 03/08/21 09:30 Ondansetron 4 Mg Tab.Dis PO 03/08/21 09:15 4 mg ONETIME ONE Administration Oxycodone/Acetaminophen 2 tab 03/08/21 09:14 03/08/21 09:30 Acetaminophen/Oxycodone 325-5 Mg Tab PO 03/08/21 09:15 2 tab ONETIME ONE Administration - Re-Assessments/Exams Free Text/Narrative Re-Assessment/Exam: 03/08/21 Findings of examination and lab work reviewed with patient. Will treat acute pain with previously prescribed medications as patient is not taking doses routinely. Will treat post-prandial pain with omeprazole. Patient instructed to follow up with primary care provider or primary care facility regarding today's visit and ongoing pain management. Discussed supportive cares as well as red flag signs and symptoms which would warrant reevaluation reviewed. Patient verbalized understanding and agreement with the plan of care. Departure - Departure Time of Disposition: 09:37 Disposition: Home, Self-Care 01 Condition: Good Clinical Impression: History of Henoch-Schonlein purpura, Loin pain hematuria syndrome, Bilateral flank pain, Postprandial abdominal pain in left upper quadrant - Discharge Information *PRESCRIPTION DRUG MONITORING PROGRAM REVIEWED*: Yes *COPY OF PRESCRIPTION DRUG MONITORING REPORT IN PATIENT NICO: Yes Instructions: Gastroesophageal Reflux Disease, Adult, [id number] Referrals: Gallo Santo NP [Primary Care Provider] - Forms: ED Department Discharge Additional Instructions: Rx: omeprazole 1.) Follow up with your primary care provider regarding today's visit; discuss starting omeprazole for reflux symptoms. 2.) Refrain from activities that exacerbate your pain. Sepsis Event Note (ED) - Focused Exam Vital Signs: Vital Signs Temp Pulse Resp BP Pulse Ox 03/08/21 08:43 96.1 F L 64 14 140/77 100
[2021-03-08] MEDS ORDERED: Ondansetron 4 MG Tab.DIS PO ONE (09:14)
[2021-03-08] MEDS ORDERED: Omeprazole 20 MG Cap.CR PO ONE (09:14)
[2021-03-08] MEDS ORDERED: Acetaminophen/oxyCODONE 325-5 MG Tab PO ONE (09:14)
== END 2021-03-08 09:37 | disposition home or self-care (01) ==
LOC: DL.ED 08:30
DX: M54.5 Low back pain (principal); R10.12 Left upper quadrant pain; R31.9 Hematuria, unspecified; D69.0 Allergic purpura; I10 Essential (primary) hypertension; K21.9 Gastro-esophageal reflux disease without esophagitis; E11.9 Type 2 diabetes mellitus without complications; E66.9 Obesity, unspecified; Z88.0 Allergy status to penicillin; Z91.030 Bee allergy status; Z88.6 Allergy status to analgesic agent; Z88.8 Allergy status to other drugs, medicaments and biological substances; Z79.84 Long term (current) use of oral hypoglycemic drugs; Z68.42 Body mass index [BMI] 45.0-49.9, adult; Z79.899 Other long term (current) drug therapy
CPT/HCPCS: 80305; 81001; 99284; A9270

== ENCOUNTER 2021-03-21 09:28 | Emergency (ER) | payer MEDICAID, SELFPAY ==
[2021-03-21 09:44] VITALS: BP 126/77; PULSE 70
[2021-03-21 09:57] LABS: AMPHETAMINES,URINE NEGATIVE (NEGATIVE); BARBITURATES,URINE NEGATIVE (NEGATIVE); BENZODIAZEPINE,URINE NEGATIVE (NEGATIVE); MDMA (ECSTASY), URINE NEGATIVE (NEGATIVE); METHADONE,URINE NEGATIVE (NEGATIVE); METHAMPHETAMINES,URINE NEGATIVE (NEGATIVE); OPIATES,URINE NEGATIVE (NEGATIVE); OXYCODONE,URINE NEGATIVE (NEGATIVE); PHENCYCLIDINE,URINE NEGATIVE (NEGATIVE); TCA,URINE NEGATIVE (NEGATIVE)
[2021-03-21] MEDS ORDERED: HYDROmorphone 1 MG/ML Syringe IM ONE (10:06)
[2021-03-21 10:29] LABS: ANION GAP 17.2 mEq/L (7-13); CHLORIDE,CL 106 mmol/L (98-107); SODIUM,NA 142 mmol/L (136-145)
--- NOTE | 2021-03-21 10:34 | EDM.PDOC ---
ED HPI GENERAL MEDICAL PROBLEM - General Chief Complaint: Abdominal Pain Stated Complaint: kidney pain Time Seen by Provider: 03/21/21 09:55 Source of Information: Reports: Patient History Limitations: Reports: No Limitations - History of Present Illness INITIAL COMMENTS - FREE TEXT/NARRATIVE: This 30 yo male patient reports to the ED with a 2 day history of left flank pain. The patient has a lengthy history of loin pain syndrome for which he is attempting to loose weight in order to have surgery. The patient reports he has been feeling well over the past 2-3 weeks. The patient has been seeing Dr. Santo for pain management, but has not used any pain medications with his current symptoms. Onset Date: 03/20/21 Duration: Constant, Getting Worse Location: Reports: Abdomen, Back Quality: Reports: Other Severity: Moderate Improves with: Reports: None Worsens with: Reports: None Associated Symptoms: Reports: No Other Symptoms left flank Pain Score (Numeric/FACES): 8 - Related Data Allergies Allergy/AdvReac Type Severity Reaction Status Date / Time amoxicillin [Amoxicillin] Allergy Rash Verified 03/21/21 09:44 bee venom protein (honey bee) Allergy Cannot Verified 03/21/21 09:44 Remember butorphanol [From Stadol] Allergy Hallucinati Verified 03/21/21 09:44 ons haloperidol [From Haldol] Allergy Hallucinati Verified 03/21/21 09:44 ons ketorolac tromethamine Allergy Rash Verified 03/21/21 09:44 [From Toradol] metoclopramide [From Reglan] Allergy Agitation Verified 03/21/21 09:44 promethazine HCl Allergy Hallucinati Verified 03/21/21 09:44 [From Phenergan] ons tramadol HCl [From Ultram] Allergy Rash Verified 03/21/21 09:44 Home Meds: Home Meds Tamsulosin HCl [Flomax] 0.4 mg PO BID 05/30/20 [History] Ondansetron [Zofran] 8 mg PO TID PRN 06/21/20 [History] Docusate Sodium [Colace] 100 mg PO BID PRN 10/21/20 [History] Losartan [Cozaar] 25 mg PO BEDTIME 10/24/20 [History] Acetaminophen [Tylenol] 650 mg PO Q4HR PRN 12/28/20 [History] Oxycodone/Apap 10 mg PO Q6H PRN 02/28/21 [History] metFORMIN HCl [Metformin ER Gastric] 1,000 mg PO BID 02/28/21 [History] Past Medical History - Past Health History Medical/Surgical History: Denies Medical/Surgical History HEENT History: Reports: None Cardiovascular History: Reports: High Cholesterol, Hypertension Respiratory History: Reports: None Gastrointestinal History: Reports: Cholelithiasis, Gastritis, GERD Other Gastrointestinal History: gallbladder pain Genitourinary History: Reports: Renal Calculus, Other (See Below) 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 Hematologic History: Reports: None Immunologic History: Reports: None Oncologic (Cancer) History: Reports: None Dermatologic History: Reports: None - Infectious Disease History Infectious Disease History: Reports: Chicken Pox, Novel Coronavirus - Past Surgical History Head Surgeries/Procedures: Reports: None HEENT Surgical History: Reports: None Cardiovascular Surgical History: Reports: None GI Surgical History: Reports: Appendectomy, Cholecystectomy Male Surgical History: Reports: Circumcision Other Male Surgeries/Procedures: Has had kidney biopsy Musculoskeletal Surgical History: Reports: Other (See Below) Other Musculoskeletal Surgeries/Procedures:: left arm Social & Family History - Family History Family Medical History: No Pertinent Family History - Tobacco Use Tobacco Use Status *Q: Never Tobacco User Second Hand Smoke Exposure: No - Caffeine Use Caffeine Use: Reports: Coffee, Soda Caffeine Use Comment: 32 oz daily - Recreational Drug Use Recreational Drug Use: Yes Recreational Drug Type: Reports: Other (see below) Other Recreational Drug Type: medical marijuana card - Living Situation & Occupation Living situation: Reports: Single, Alone Occupation: Employed ED ROS GENERAL - Review of Systems Review Of Systems: Comprehensive ROS is negative, except as noted in HPI. ED EXAM, RENAL/ - Physical Exam Exam: See Below Exam Limited By: Uncooperative General Appearance: Alert, Moderate Distress Eye Exam: Bilateral Eye: EOMI, Normal Inspection, PERRL Ears: Normal External Exam, Normal Canal, Hearing Grossly Normal, Normal TMs Nose: Normal Inspection, Normal Mucosa, No Blood Throat/Mouth: Normal Inspection, Normal Lips, Normal Teeth, Normal Gums, Normal Oropharynx, Normal Voice, No Airway Compromise Head: Atraumatic, Normocephalic Neck: Normal Inspection, Supple, Non-Tender, Full Range of Motion Respiratory/Chest: No Respiratory Distress, Lungs Clear, Normal Breath Sounds, No Accessory Muscle Use, Chest Non-Tender Cardiovascular: Normal Peripheral Pulses, Regular Rate, Rhythm, No Edema, No Gallop, No JVD, No Murmur, No Rub GI/Abdominal: Normal Bowel Sounds, Soft, Tender (left side) (Male) Exam: Deferred Rectal (Males) Exam: Deferred Back Exam: CVA Tenderness (L) Extremities: Normal Inspection, Normal Range of Motion, Non-Tender, Normal Capillary Refill, No Pedal Edema Neurological: Alert, Oriented, CN II-XII Intact, Normal Cognition, Normal Gait, Normal Reflexes, No Motor/Sensory Deficits Psychiatric: Normal Affect, Normal Mood Skin Exam: Warm, Dry, Intact, Normal Color, No Rash Lymphatic: No Adenopathy Course - Vital Signs Last Recorded V/S: Last Vital Signs Temp 96.4 F L 03/21/21 09:40 Pulse 70 03/21/21 09:40 Resp 18 03/21/21 09:40 BP 126/77 03/21/21 09:40 Pulse Ox 100 03/21/21 09:40 - Orders/Labs/Meds Labs: Laboratory Tests 03/21/21 03/21/21 03/21/21 Range/Units 09:33 09:33 10:05 WBC 9.9 (5.0-10.0) 10^3/uL RBC 5.42 (4.6-6.2) 10^6/uL Hgb 16.2 (14.0-18.0) g/dL Hct 46.3 (40.0-54.0) % MCV 85.4 (80-100) fL MCH 29.9 (27.0-34.0) pg MCHC 35.0 (33.0-35.0) g/dL Plt Count 297 (150-450) 10^3/uL Neut % (Auto) 67.1 (42.2-75.2) % Lymph % (Auto) 24.6 (20.5-50.1) % [place] % (Auto) 5.9 (2-8) % Eos % (Auto) 2.1 (1.0-3.0) % Baso % (Auto) 0.3 (0.0-1.0) % Sodium (136-145) mmol/L Potassium (3.5-5.1) mmol/L Chloride (98-107) mmol/L Carbon Dioxide (21-32) mmol/L Anion Gap (7-13) mEq/L BUN (7-18) mg/dL Creatinine (0.70-1.30) mg/dL Est Cr Clr Drug Dosing mL/min Estimated GFR (MDRD) BUN/Creatinine Ratio (No establ ref range) Glucose (70-99) mg/dL Calcium (8.5-10.1) mg/dL Total Bilirubin (0.2-1.0) mg/dL AST (15-37) U/L ALT (16-63) U/L Alkaline Phosphatase (46-116) U/L Total Protein (6.4-8.2) g/dL Albumin (3.4-5.0) g/dL Globulin Albumin/Globulin Ratio Urine Color Dark yellow (YELLOW) Urine Appearance Slightly cloudy (CLEAR) Urine pH 6.0 (5.0-9.0) Ur Specific Leslie 1.025 (1.005-1.030) Urine Protein Negative (NEGATIVE) Urine Glucose (UA) Negative (NEGATIVE) Urine Ketones Negative (NEGATIVE) Urine Occult Blood Large H (NEGATIVE) Urine Nitrite Negative (NEGATIVE) Urine Bilirubin Negative (NEGATIVE) Urine Urobilinogen 0.2 (0.2-1.0) mg/dL Ur Leukocyte Esterase Negative (NEGATIVE) Urine RBC >100 H /HPF Urine WBC 0-5 (0-5/HPF) /HPF Ur Epithelial Cells Moderate H (NOT SEEN) /HPF Urine Mucus Rare (NOT SEEN) /LPF Urine Opiates Screen Negative (NEGATIVE) Ur Oxycodone Screen Negative (NEGATIVE) Urine Methadone Screen Negative (NEGATIVE) Ur Barbiturates Screen Negative (NEGATIVE) U Tricyclic Antidepress Negative (NEGATIVE) Ur Phencyclidine Scrn Negative (NEGATIVE) Ur Amphetamine Screen Negative (NEGATIVE) U Methamphetamines Scrn Negative (NEGATIVE) Urine MDMA Screen Negative (NEGATIVE) U Benzodiazepines Scrn Negative (NEGATIVE) Urine Cocaine Screen Negative (NEGATIVE) U Marijuana (THC) Screen Positive H (NEGATIVE) 03/21/21 Range/Units 10:05 WBC (5.0-10.0) 10^3/uL RBC (4.6-6.2) 10^6/uL Hgb (14.0-18.0) g/dL Hct (40.0-54.0) % MCV (80-100) fL MCH (27.0-34.0) pg MCHC (33.0-35.0) g/dL Plt Count (150-450) 10^3/uL Neut % (Auto) (42.2-75.2) % Lymph % (Auto) (20.5-50.1) % [place] % (Auto) (2-8) % Eos % (Auto) (1.0-3.0) % Baso % (Auto) (0.0-1.0) % Sodium 142 (136-145) mmol/L Potassium 4.2 (3.5-5.1) mmol/L Chloride 106 (98-107) mmol/L Carbon Dioxide 23 (21-32) mmol/L Anion Gap 17.2 H (7-13) mEq/L BUN 9 (7-18) mg/dL Creatinine 0.85 (0.70-1.30) mg/dL Est Cr Clr Drug Dosing 140.75 mL/min Estimated GFR (MDRD) > 60 BUN/Creatinine Ratio 10.6 (No establ ref range) Glucose 98 (70-99) mg/dL Calcium 8.2 L (8.5-10.1) mg/dL Total Bilirubin 0.6 (0.2-1.0) mg/dL AST 14 L (15-37) U/L ALT 33 (16-63) U/L Alkaline Phosphatase 81 (46-116) U/L Total Protein 7.3 (6.4-8.2) g/dL Albumin 3.8 (3.4-5.0) g/dL Globulin 3.5 Albumin/Globulin Ratio 1.1 Urine Color (YELLOW) Urine Appearance (CLEAR) Urine pH (5.0-9.0) Ur Specific Leslie (1.005-1.030) Urine Protein (NEGATIVE) Urine Glucose (UA) (NEGATIVE) Urine Ketones (NEGATIVE) Urine Occult Blood (NEGATIVE) Urine Nitrite (NEGATIVE) Urine Bilirubin (NEGATIVE) Urine Urobilinogen (0.2-1.0) mg/dL Ur Leukocyte Esterase (NEGATIVE) Urine RBC /HPF Urine WBC (0-5/HPF) /HPF Ur Epithelial Cells (NOT SEEN) /HPF Urine Mucus (NOT SEEN) /LPF Urine Opiates Screen (NEGATIVE) Ur Oxycodone Screen (NEGATIVE) Urine Methadone Screen (NEGATIVE) Ur Barbiturates Screen (NEGATIVE) U Tricyclic Antidepress (NEGATIVE) Ur Phencyclidine Scrn (NEGATIVE) Ur Amphetamine Screen (NEGATIVE) U Methamphetamines Scrn (NEGATIVE) Urine MDMA Screen (NEGATIVE) U Benzodiazepines Scrn (NEGATIVE) Urine Cocaine Screen (NEGATIVE) U Marijuana (THC) Screen (NEGATIVE) Meds: Medications Discontinued Medications Generic Name Dose Route Start Last Admin Trade Name Freq PRN Reason Stop Dose Admin Hydromorphone HCl 1 mg 03/21/21 10:06 03/21/21 10:19 Hydromorphone 1 Mg/Ml Syringe IM 03/21/21 10:07 1 mg ONETIME ONE Administration Departure - Departure Time of Disposition: 10:31 Disposition: Home, Self-Care 01 Condition: Fair Clinical Impression: Loin pain hematuria syndrome - Discharge Information *PRESCRIPTION DRUG MONITORING PROGRAM REVIEWED*: Yes *COPY OF PRESCRIPTION DRUG MONITORING REPORT IN PATIENT NICO: Yes Referrals: PCP,None [Primary Care Provider] - Forms: ED Department Discharge Care Plan Goals: The patient was advised of the examination and lab results during the visit. The patient was given an injection of Dilaudid while in the ED. The patient was encouraged to continue to follow-up with his primary care facility. If the patient has any additional symptoms or concerns, the patient should either return to the emergency department or visit his primary care facility. Sepsis Event Note (ED) - Evaluation Sepsis Screening Result: No Definite Risk - Focused Exam Vital Signs: Vital Signs Temp Pulse Resp BP Pulse Ox 03/21/21 09:40 96.4 F L 70 18 126/77 100
== END 2021-03-21 10:37 | disposition home or self-care (01) ==
LOC: DL.ED 09:28
DX: M54.5 Low back pain (principal); R31.9 Hematuria, unspecified; I10 Essential (primary) hypertension; E11.9 Type 2 diabetes mellitus without complications; E66.9 Obesity, unspecified; Z68.41 Body mass index [BMI] 40.0-44.9, adult; Z86.16 Personal history of COVID-19; Z88.0 Allergy status to penicillin; Z91.030 Bee allergy status; Z88.8 Allergy status to other drugs, medicaments and biological substances; Z88.5 Allergy status to narcotic agent; Z79.84 Long term (current) use of oral hypoglycemic drugs; Z79.899 Other long term (current) drug therapy
CPT/HCPCS: 36415; 80053; 80305-QW; 81001; 85025; 96372; 99283; 99284; J1170

== ENCOUNTER 2021-03-26 11:30 | Emergency (ER) | payer MEDICAID ==
[2021-03-26 11:50] VITALS: BP 121/67; PULSE 57
== END 2021-03-26 12:04 | disposition left against medical advice (07) ==
LOC: DL.ED 11:30
DX: Z53.21 Procedure and treatment not carried out due to patient leaving prior to being seen by health care provider (principal)

== ENCOUNTER 2021-03-28 10:17 | Emergency (ER) | payer MEDICAID ==
[2021-03-28 12:01] VITALS: BP 135/73; PULSE 75
[2021-03-28] MEDS ORDERED: HYDROmorphone 1 MG/ML Syringe IM ONE (12:10)
--- NOTE | 2021-03-28 12:14 | EDM.PDOC ---
ED HPI GENERAL MEDICAL PROBLEM - General Chief Complaint: Abdominal Pain Stated Complaint: SIDE PAIN Time Seen by Provider: 03/28/21 11:50 Source of Information: Reports: Patient, Assisted Records, Old Records, RN History Limitations: Reports: No Limitations - History of Present Illness INITIAL COMMENTS - FREE TEXT/NARRATIVE: Pt presents to ER with c/o severe B/L flank pain with nausea, vomiting, and hematuria. 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 He has been to several nephrologists, urologist, [place], and [facility], and to pain management clinics. He continues to utilized the ER several times a month for break through pain episodes. He as been counselled repeatedly and claims that he is trying to manage his pain at home and through clinic, but cannot take the pain today. He is also out of Flomax and Losartan and requests a 4 day supply as he has an appointment with his PCP in 4 days. Duration: Chronic, Recurring Location: Reports: Abdomen, Back Quality: Reports: Same as Previous Episode Severity: Severe Improves with: Reports: None Worsens with: Reports: None Associated Symptoms: Reports: No Other Symptoms - Related Data Allergies Allergy/AdvReac Type Severity Reaction Status Date / Time amoxicillin [Amoxicillin] Allergy Rash Verified 03/26/21 11:51 bee venom protein (honey bee) Allergy Cannot Verified 03/26/21 11:51 Remember butorphanol [From Stadol] Allergy Hallucinati Verified 03/26/21 11:51 ons haloperidol [From Haldol] Allergy Hallucinati Verified 03/26/21 11:51 ons ketorolac tromethamine Allergy Rash Verified 03/26/21 11:51 [From Toradol] metoclopramide [From Reglan] Allergy Agitation Verified 03/26/21 11:51 promethazine HCl Allergy Hallucinati Verified 03/26/21 11:51 [From Phenergan] ons tramadol HCl [From Ultram] Allergy Rash Verified 03/26/21 11:51 Home Meds: Home Meds Tamsulosin HCl [Flomax] 0.4 mg PO BID 05/30/20 [History] Ondansetron [Zofran] 8 mg PO TID PRN 06/21/20 [History] Docusate Sodium [Colace] 100 mg PO BID PRN 10/21/20 [History] Losartan [Cozaar] 25 mg PO BEDTIME 10/24/20 [History] Acetaminophen [Tylenol] 650 mg PO Q4HR PRN 12/28/20 [History] Oxycodone/Apap 10 mg PO Q6H PRN 02/28/21 [History] metFORMIN HCl [Metformin ER Gastric] 1,000 mg PO BID 02/28/21 [History] Past Medical History - Past Health History Medical/Surgical History: Denies Medical/Surgical History HEENT History: Reports: None Cardiovascular History: Reports: High Cholesterol, Hypertension Respiratory History: Reports: None Gastrointestinal History: Reports: Cholelithiasis, Gastritis, GERD Other Gastrointestinal History: gallbladder pain Genitourinary History: Reports: Renal Calculus, Other (See Below) 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 Hematologic History: Reports: None Immunologic History: Reports: None Oncologic (Cancer) History: Reports: None Dermatologic History: Reports: None - Infectious Disease History Infectious Disease History: Reports: Chicken Pox, Novel Coronavirus - Past Surgical History Head Surgeries/Procedures: Reports: None HEENT Surgical History: Reports: None Cardiovascular Surgical History: Reports: None GI Surgical History: Reports: Appendectomy, Cholecystectomy Male Surgical History: Reports: Circumcision Other Male Surgeries/Procedures: Has had kidney biopsy Musculoskeletal Surgical History: Reports: Other (See Below) Other Musculoskeletal Surgeries/Procedures:: left arm Social & Family History - Family History Family Medical History: No Pertinent Family History - Tobacco Use Tobacco Use Status *Q: Never Tobacco User - Caffeine Use Caffeine Use: Reports: None Caffeine Use Comment: 32 oz daily - Recreational Drug Use Recreational Drug Use: No - Living Situation & Occupation Living situation: Reports: Single, Alone Occupation: Employed ED ROS GENERAL - Review of Systems Review Of Systems: Comprehensive ROS is negative, except as noted in HPI. ED EXAM, RENAL/ - Physical Exam Exam: See Below Exam Limited By: No Limitations General Appearance: Alert, WD/WN, No Apparent Distress, Obese Throat/Mouth: Normal Voice, No Airway Compromise Head: Atraumatic, Normocephalic Respiratory/Chest: No Respiratory Distress, Lungs Clear, Normal Breath Sounds, No Accessory Muscle Use, Chest Non-Tender Cardiovascular: Regular Rate, Rhythm, No Edema GI/Abdominal: Normal Bowel Sounds, Soft, Tender (LLQ, LUQ). No: Guarding, Rigid, Rebound (Male) Exam: Deferred Rectal (Males) Exam: Deferred Back Exam: Full Range of Motion, CVA Tenderness (L). No: CVA Tenderness (R), Vertebral Tenderness Extremities: Normal Inspection Neurological: Alert, Oriented, No Motor/Sensory Deficits Psychiatric: Normal Mood Skin Exam: Warm, Dry, Intact, Normal Color, No Rash. No: Ecchymosis, Petechiae Course - Vital Signs Last Recorded V/S: Last Vital Signs Temp 97.7 F 03/28/21 12:00 Pulse 75 03/28/21 12:00 Resp 20 03/28/21 12:00 BP 135/73 03/28/21 12:00 Pulse Ox 100 03/28/21 12:00 - Orders/Labs/Meds Meds: Medications Discontinued Medications Generic Name Dose Route Start Last Admin Trade Name Chavo PRN Reason Stop Dose Admin Hydromorphone HCl 2 mg 03/28/21 12:10 03/28/21 12:16 Hydromorphone 1 Mg/Ml Syringe IM 03/28/21 12:11 2 mg ONETIME ONE Administration Departure - Departure Time of Disposition: 12:27 Disposition: Home, Self-Care 01 Condition: Good Clinical Impression: Loin pain hematuria syndrome, History of Henoch-Schonlein purpura - Discharge Information *PRESCRIPTION DRUG MONITORING PROGRAM REVIEWED*: No *COPY OF PRESCRIPTION DRUG MONITORING REPORT IN PATIENT NICO: No Instructions: Flank Pain, Adult, [id number], Hematuria, Adult Forms: ED Department Discharge Additional Instructions: Rx: Losartan 25mg Rx: Flomax 0.4mg Follow up in clinic as scheduled for medication management. Sepsis Event Note (ED) - Evaluation Sepsis Screening Result: No Definite Risk - Focused Exam Vital Signs: Vital Signs Temp Pulse Resp BP Pulse Ox 03/28/21 12:00 97.7 F 75 20 135/73 100 03/28/21 10:43 97.5 F 68 20 146/84 H 99
== END 2021-03-28 12:35 | disposition home or self-care (01) ==
LOC: DL.ED 10:17
DX: M54.5 Low back pain (principal); R31.9 Hematuria, unspecified; I10 Essential (primary) hypertension; E11.9 Type 2 diabetes mellitus without complications; E66.9 Obesity, unspecified; Z68.41 Body mass index [BMI] 40.0-44.9, adult; Z86.16 Personal history of COVID-19; Z88.0 Allergy status to penicillin; Z91.030 Bee allergy status; Z88.8 Allergy status to other drugs, medicaments and biological substances; Z88.5 Allergy status to narcotic agent; Z79.84 Long term (current) use of oral hypoglycemic drugs
CPT/HCPCS: 96372; 99283; J1170

== ENCOUNTER 2021-03-29 08:43 | Emergency (ER) | payer MEDICAID ==
--- NOTE | 2021-03-29 09:20 | EDM.PDOC ---
ED HPI GENERAL MEDICAL PROBLEM - General Chief Complaint: Flank Pain Stated Complaint: SIDE PAIN Time Seen by Provider: 03/29/21 09:20 Source of Information: Reports: Patient, Old Records, RN, RN Notes Reviewed History Limitations: Reports: No Limitations - History of Present Illness INITIAL COMMENTS - FREE TEXT/NARRATIVE: Pt presents to ER with c/o severe B/L flank pain with nausea, vomiting, and hematuria. 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 He has been to several nephrologists, urologist, [place], and [facility], and to pain management clinics. He continues to utilized the ER several times a month for break through pain episodes. He as been counselled repeatedly and claims that he is trying to manage his pain at home and through clinic, but cannot take the pain today. He is also out of Flomax and Losartan and requests a 4 day supply as he has an appointment with his PCP in 4 days. Duration: Colic, Recurring Location: Reports: Abdomen, Back Quality: Reports: Same as Previous Episode Severity: Severe Improves with: Reports: None Worsens with: Reports: None Associated Symptoms: Reports: No Other Symptoms Bilateral Flank Pain Score (Numeric/FACES): 8 - Related Data Allergies Allergy/AdvReac Type Severity Reaction Status Date / Time amoxicillin [Amoxicillin] Allergy Rash Verified 03/26/21 11:51 bee venom protein (honey bee) Allergy Cannot Verified 03/26/21 11:51 Remember butorphanol [From Stadol] Allergy Hallucinati Verified 03/26/21 11:51 ons haloperidol [From Haldol] Allergy Hallucinati Verified 03/26/21 11:51 ons ketorolac tromethamine Allergy Rash Verified 03/26/21 11:51 [From Toradol] metoclopramide [From Reglan] Allergy Agitation Verified 03/26/21 11:51 promethazine HCl Allergy Hallucinati Verified 03/26/21 11:51 [From Phenergan] ons tramadol HCl [From Ultram] Allergy Rash Verified 03/26/21 11:51 Home Meds: Home Meds Tamsulosin HCl [Flomax] 0.4 mg PO BID 05/30/20 [History] Ondansetron [Zofran] 8 mg PO TID PRN 06/21/20 [History] Docusate Sodium [Colace] 100 mg PO BID PRN 10/21/20 [History] Losartan [Cozaar] 25 mg PO BEDTIME 10/24/20 [History] Acetaminophen [Tylenol] 650 mg PO Q4HR PRN 12/28/20 [History] Oxycodone/Apap 10 mg PO Q6H PRN 02/28/21 [History] metFORMIN HCl [Metformin ER Gastric] 1,000 mg PO BID 02/28/21 [History] Past Medical History - Past Health History Medical/Surgical History: Denies Medical/Surgical History HEENT History: Reports: None Cardiovascular History: Reports: High Cholesterol, Hypertension Respiratory History: Reports: None Gastrointestinal History: Reports: Cholelithiasis, Gastritis, GERD Other Gastrointestinal History: gallbladder pain Genitourinary History: Reports: Renal Calculus, Other (See Below) 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 Hematologic History: Reports: None Immunologic History: Reports: None Oncologic (Cancer) History: Reports: None Dermatologic History: Reports: None - Infectious Disease History Infectious Disease History: Reports: Chicken Pox, Novel Coronavirus - Past Surgical History Head Surgeries/Procedures: Reports: None HEENT Surgical History: Reports: None Cardiovascular Surgical History: Reports: None GI Surgical History: Reports: Appendectomy, Cholecystectomy Male Surgical History: Reports: Circumcision Other Male Surgeries/Procedures: Has had kidney biopsy Musculoskeletal Surgical History: Reports: Other (See Below) Other Musculoskeletal Surgeries/Procedures:: left arm Social & Family History - Family History Family Medical History: No Pertinent Family History - Caffeine Use Caffeine Use: Reports: None Caffeine Use Comment: 32 oz daily - Living Situation & Occupation Living situation: Reports: Single, Alone Occupation: Employed ED ROS GENERAL - Review of Systems Review Of Systems: Comprehensive ROS is negative, except as noted in HPI. ED EXAM, RENAL/ - Physical Exam Exam: See Below Exam Limited By: No Limitations General Appearance: Alert, WD/WN, No Apparent Distress, Obese Eye Exam: Bilateral Eye: Normal Inspection Throat/Mouth: Normal Voice, No Airway Compromise Head: Atraumatic, Normocephalic Respiratory/Chest: No Respiratory Distress, Lungs Clear, Normal Breath Sounds, No Accessory Muscle Use, Chest Non-Tender Cardiovascular: Regular Rate, Rhythm GI/Abdominal: Normal Bowel Sounds, Soft, No Distention, Tender (LLQ). No: Guarding, Rigid, Rebound (Male) Exam: Deferred Rectal (Males) Exam: Deferred Back Exam: Full Range of Motion, CVA Tenderness (L). No: CVA Tenderness (R), Vertebral Tenderness Extremities: Normal Inspection Neurological: Alert, Oriented, No Motor/Sensory Deficits Psychiatric: Normal Mood Skin Exam: Warm, Dry, Intact, Normal Color, No Rash. No: Ecchymosis, Petechiae Course - Vital Signs Last Recorded V/S: Last Vital Signs Temp 97.3 F 03/29/21 09:13 Pulse 67 03/29/21 09:13 Resp 16 03/29/21 09:13 BP 119/71 03/29/21 09:13 Pulse Ox 100 03/29/21 09:13 - Orders/Labs/Meds Meds: Medications Discontinued Medications Generic Name Dose Route Start Last Admin Trade Name Freq PRN Reason Stop Dose Admin Hydromorphone HCl 2 mg 03/29/21 09:23 Hydromorphone 1 Mg/Ml Syringe IM 03/29/21 09:24 ONETIME ONE Departure - Departure Time of Disposition: 09:35 Disposition: Home, Self-Care 01 Condition: Good Clinical Impression: Loin pain hematuria syndrome, History of Henoch-Schonlein purpura - Discharge Information *PRESCRIPTION DRUG MONITORING PROGRAM REVIEWED*: No *COPY OF PRESCRIPTION DRUG MONITORING REPORT IN PATIENT NICO: No Instructions: Flank Pain, Adult, [id number] Forms: ED Department Discharge Additional Instructions: Follow up with your clinic provider as scheduled. Sepsis Event Note (ED) - Focused Exam Vital Signs: Vital Signs Temp Pulse Resp BP Pulse Ox 03/29/21 09:13 97.3 F 67 16 119/71 100
[2021-03-29] MEDS ORDERED: HYDROmorphone 1 MG/ML Syringe IM ONE (09:23)
[2021-03-29 09:28] VITALS: BP 119/71; PULSE 67
== END 2021-03-29 09:42 | disposition home or self-care (01) ==
LOC: DL.ED 08:43
DX: M54.5 Low back pain (principal); R31.9 Hematuria, unspecified; I10 Essential (primary) hypertension; E11.9 Type 2 diabetes mellitus without complications; E66.9 Obesity, unspecified; Z68.41 Body mass index [BMI] 40.0-44.9, adult; Z85.858 Personal history of malignant neoplasm of other endocrine glands; Z87.898 Personal history of other specified conditions; Z88.0 Allergy status to penicillin; Z91.030 Bee allergy status; Z88.8 Allergy status to other drugs, medicaments and biological substances; Z88.5 Allergy status to narcotic agent; Z79.899 Other long term (current) drug therapy
CPT/HCPCS: 96372; 99283; J1170

== ENCOUNTER 2021-03-30 08:37 | Emergency (ER) | payer MEDICAID ==
--- NOTE | 2021-03-30 09:09 | EDM.PDOC ---
ED HPI GENERAL MEDICAL PROBLEM - General Chief Complaint: Genitourinary Problem Stated Complaint: KIDNEY PAIN Time Seen by Provider: 03/30/21 09:05 Source of Information: Reports: Patient, Old Records, RN, RN Notes Reviewed History Limitations: Reports: No Limitations - History of Present Illness INITIAL COMMENTS - FREE TEXT/NARRATIVE: Pt presents to ER with c/o severe B/L flank pain with nausea, and hematuria. 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 He has been to several nephrologists, urologist, [place], and [facility], and to pain management clinics. He continues to utilized the ER several times a month for break through pain episodes. He as been counselled repeatedly and claims that he is trying to manage his pain at home and through clinic, but cannot take the pain today. He has an appointment with his PCP tomorrow (, March 30). Duration: Chronic, Recurring Location: Reports: Abdomen, Back Quality: Reports: Same as Previous Episode Severity: Severe Associated Symptoms: Reports: No Other Symptoms - Related Data Allergies Allergy/AdvReac Type Severity Reaction Status Date / Time amoxicillin [Amoxicillin] Allergy Rash Verified 03/29/21 09:56 bee venom protein (honey bee) Allergy Cannot Verified 03/29/21 09:56 Remember butorphanol [From Stadol] Allergy Hallucinati Verified 03/29/21 09:56 ons haloperidol [From Haldol] Allergy Hallucinati Verified 03/29/21 09:56 ons ketorolac tromethamine Allergy Rash Verified 03/29/21 09:56 [From Toradol] metoclopramide [From Reglan] Allergy Agitation Verified 03/29/21 09:56 promethazine HCl Allergy Hallucinati Verified 03/29/21 09:56 [From Phenergan] ons tramadol HCl [From Ultram] Allergy Rash Verified 03/29/21 09:56 Home Meds: Home Meds Tamsulosin HCl [Flomax] 0.4 mg PO BID 05/30/20 [History] Ondansetron [Zofran] 8 mg PO TID PRN 06/21/20 [History] Docusate Sodium [Colace] 100 mg PO BID PRN 10/21/20 [History] Losartan [Cozaar] 25 mg PO BEDTIME 10/24/20 [History] Acetaminophen [Tylenol] 650 mg PO Q4HR PRN 12/28/20 [History] Oxycodone/Apap 10 mg PO Q6H PRN 02/28/21 [History] metFORMIN HCl [Metformin ER Gastric] 1,000 mg PO BID 02/28/21 [History] Past Medical History - Past Health History Medical/Surgical History: Denies Medical/Surgical History HEENT History: Reports: None Cardiovascular History: Reports: High Cholesterol, Hypertension Respiratory History: Reports: None Gastrointestinal History: Reports: Cholelithiasis, Gastritis, GERD Other Gastrointestinal History: gallbladder pain Genitourinary History: Reports: Renal Calculus, Other (See Below) 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 Hematologic History: Reports: None Immunologic History: Reports: None Oncologic (Cancer) History: Reports: None Dermatologic History: Reports: None - Infectious Disease History Infectious Disease History: Reports: Chicken Pox, Novel Coronavirus - Past Surgical History Head Surgeries/Procedures: Reports: None HEENT Surgical History: Reports: None Cardiovascular Surgical History: Reports: None GI Surgical History: Reports: Appendectomy, Cholecystectomy Male Surgical History: Reports: Circumcision Other Male Surgeries/Procedures: Has had kidney biopsy Musculoskeletal Surgical History: Reports: Other (See Below) Other Musculoskeletal Surgeries/Procedures:: left arm Social & Family History - Family History Family Medical History: No Pertinent Family History - Caffeine Use Caffeine Use: Reports: Coffee, Soda Caffeine Use Comment: Occasional - Living Situation & Occupation Living situation: Reports: Single, Alone Occupation: Employed ED ROS GENERAL - Review of Systems Review Of Systems: Comprehensive ROS is negative, except as noted in HPI. ED EXAM, RENAL/ - Physical Exam Exam: See Below Exam Limited By: No Limitations General Appearance: Alert, WD/WN, No Apparent Distress, Obese Head: Atraumatic, Normocephalic Respiratory/Chest: No Respiratory Distress Cardiovascular: Regular Rate, Rhythm GI/Abdominal: Normal Bowel Sounds, Soft, Tender (LUQ, LLQ). No: Guarding, Rigid, Rebound (Male) Exam: Deferred Rectal (Males) Exam: Deferred Back Exam: Full Range of Motion, CVA Tenderness (L) (Moderate), CVA Tenderness (R) (Mild). No: Vertebral Tenderness Neurological: Alert, Oriented, No Motor/Sensory Deficits Psychiatric: Normal Mood Skin Exam: Warm, Dry, Intact, Normal Color, No Rash. No: Ecchymosis, Jaundice, Petechiae Departure - Departure Time of Disposition: 09:45 Disposition: Home, Self-Care 01 Condition: Good Clinical Impression: Loin pain hematuria syndrome, History of Henoch-Schonlein purpura Chronic pain Qualifiers: Chronic pain type: chronic pain syndrome Qualified Code(s): G89.4 - Chronic pain syndrome - Discharge Information *PRESCRIPTION DRUG MONITORING PROGRAM REVIEWED*: No *COPY OF PRESCRIPTION DRUG MONITORING REPORT IN PATIENT NICO: No Instructions: Chronic Pain, Adult Additional Instructions: Follow up in clinic tomorrow for pain and medication management.
[2021-03-30 09:16] VITALS: BP 130/81; PULSE 70
[2021-03-30] MEDS ORDERED: HYDROmorphone 1 MG/ML Syringe IM ONE (09:17)
== END 2021-03-30 09:34 | disposition home or self-care (01) ==
LOC: DL.ED 08:37
DX: G89.4 Chronic pain syndrome (principal); M54.5 Low back pain; R31.9 Hematuria, unspecified; I10 Essential (primary) hypertension; E11.9 Type 2 diabetes mellitus without complications; E66.9 Obesity, unspecified; Z86.16 Personal history of COVID-19; Z88.0 Allergy status to penicillin; Z91.030 Bee allergy status; Z88.8 Allergy status to other drugs, medicaments and biological substances; Z88.5 Allergy status to narcotic agent; Z88.6 Allergy status to analgesic agent; Z79.84 Long term (current) use of oral hypoglycemic drugs; Z79.899 Other long term (current) drug therapy
CPT/HCPCS: 96372; 99283; J1170

== ENCOUNTER 2021-03-31 10:57 | Emergency (ER) | payer MEDICAID ==
--- NOTE | 2021-03-31 11:10 | EDM.PDOC ---
ED HPI GENERAL MEDICAL PROBLEM - General Chief Complaint: Genitourinary Problem Stated Complaint: SIDE PAIN Time Seen by Provider: 03/31/21 11:22 Source of Information: Reports: Patient, Old Records, RN, RN Notes Reviewed History Limitations: Reports: No Limitations - History of Present Illness INITIAL COMMENTS - FREE TEXT/NARRATIVE: Pt presents to ER with c/o severe B/L flank pain with nausea, and hematuria. 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 He has been to several nephrologists, urologist, [place], and [facility], and to pain management clinics. He continues to utilized the ER several times a month for break through pain episodes. He as been counselled repeatedly and claims that he is trying to manage his pain at home and through clinic, but cannot take the pain today. Previously this week the pt had claimed to have an appointment with his PCP today for medication and pain management, he produces his cell phone with "my chart" sang to prove that he has a 4PM appointment today. Duration: Chronic, Recurring Location: Reports: Abdomen, Back Quality: Reports: Same as Previous Episode Severity: Severe Improves with: Reports: None Worsens with: Reports: None - Related Data Allergies Allergy/AdvReac Type Severity Reaction Status Date / Time amoxicillin [Amoxicillin] Allergy Rash Verified 03/29/21 09:56 bee venom protein (honey bee) Allergy Cannot Verified 03/29/21 09:56 Remember butorphanol [From Stadol] Allergy Hallucinati Verified 03/29/21 09:56 ons haloperidol [From Haldol] Allergy Hallucinati Verified 03/29/21 09:56 ons ketorolac tromethamine Allergy Rash Verified 03/29/21 09:56 [From Toradol] metoclopramide [From Reglan] Allergy Agitation Verified 03/29/21 09:56 promethazine HCl Allergy Hallucinati Verified 03/29/21 09:56 [From Phenergan] ons tramadol HCl [From Ultram] Allergy Rash Verified 03/29/21 09:56 Home Meds: Home Meds Tamsulosin HCl [Flomax] 0.4 mg PO BID 05/30/20 [History] Ondansetron [Zofran] 8 mg PO TID PRN 06/21/20 [History] Docusate Sodium [Colace] 100 mg PO BID PRN 10/21/20 [History] Losartan [Cozaar] 25 mg PO BEDTIME 10/24/20 [History] Acetaminophen [Tylenol] 650 mg PO Q4HR PRN 12/28/20 [History] Oxycodone/Apap 10 mg PO Q6H PRN 02/28/21 [History] metFORMIN HCl [Metformin ER Gastric] 1,000 mg PO BID 02/28/21 [History] Past Medical History - Past Health History Medical/Surgical History: Denies Medical/Surgical History HEENT History: Reports: None Cardiovascular History: Reports: High Cholesterol, Hypertension Respiratory History: Reports: None Gastrointestinal History: Reports: Cholelithiasis, Gastritis, GERD Other Gastrointestinal History: gallbladder pain Genitourinary History: Reports: Renal Calculus, Other (See Below) 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 Hematologic History: Reports: None Immunologic History: Reports: None Oncologic (Cancer) History: Reports: None Dermatologic History: Reports: None - Infectious Disease History Infectious Disease History: Reports: Chicken Pox, Novel Coronavirus - Past Surgical History Head Surgeries/Procedures: Reports: None HEENT Surgical History: Reports: None Cardiovascular Surgical History: Reports: None GI Surgical History: Reports: Appendectomy, Cholecystectomy Male Surgical History: Reports: Circumcision Other Male Surgeries/Procedures: Has had kidney biopsy Musculoskeletal Surgical History: Reports: Other (See Below) Other Musculoskeletal Surgeries/Procedures:: left arm Social & Family History - Family History Family Medical History: No Pertinent Family History - Caffeine Use Caffeine Use: Reports: None Caffeine Use Comment: Occasional - Living Situation & Occupation Living situation: Reports: Single, Alone Occupation: Employed ED ROS GENERAL - Review of Systems Review Of Systems: Comprehensive ROS is negative, except as noted in HPI. ED EXAM, RENAL/ - Physical Exam Exam: See Below Text/Narrative:: Exam: See Below Exam Limited By: No Limitations General Appearance: Alert, WD/WN, No Apparent Distress, Obese Head: Atraumatic, Normocephalic Respiratory/Chest: No Respiratory Distress Cardiovascular: Regular Rate, Rhythm GI/Abdominal: Normal Bowel Sounds, Soft, Tender (LUQ, LLQ). No: Guarding, Rigid, Rebound (Male) Exam: Deferred Rectal (Males) Exam: Deferred Back Exam: Full Range of Motion, CVA Tenderness (L) (Moderate), CVA Tenderness (R) (Mild). No: Vertebral Tenderness Neurological: Alert, Oriented, No Motor/Sensory Deficits Psychiatric: Normal Mood Skin Exam: Warm, Dry, Intact, Normal Color, No Rash. No: Ecchymosis, Jaundice, Petechiae Course - Vital Signs Last Recorded V/S: Last Vital Signs Temp 98 F 03/31/21 11:21 Pulse 70 03/31/21 11:21 Resp 20 03/31/21 11:21 BP 101/66 03/31/21 11:21 Pulse Ox 100 03/31/21 11:21 - Orders/Labs/Meds Orders: Active Orders 24 hr Category Date Time Status Acetaminophen/oxyCODONE [Percocet 325-5 MG] Med 03/31/21 11:32 Once 2 tab PO ONETIME ONE Medication Orders Oxycodone/Acetaminophen (Acetaminophen/Oxycodone 325-5 Mg Tab) 2 tab PO ONETIME ONE Stop: 03/31/21 11:33 Meds: Medications Generic Name Dose Route Start Last Admin Trade Name Chavo PRN Reason Stop Dose Admin Oxycodone/Acetaminophen 2 tab 03/31/21 11:32 Acetaminophen/Oxycodone 325-5 Mg Tab PO 03/31/21 11:33 ONETIME ONE - Re-Assessments/Exams Free Text/Narrative Re-Assessment/Exam: 03/31/21 I explained to the pt that he cannot continue to receive injectable opiate pain medications on a frequent basis for his chronic condition. Today I declined to provide the pt with injectable Dilaudid, and offered him oral Percocet one time dose, which he accepted. I advised him to work with his PCP as his chronic medication management cannot come from the ER. Departure - Departure Time of Disposition: 11:35 Disposition: Home, Self-Care 01 Condition: Good Clinical Impression: Loin pain hematuria syndrome, History of Henoch-Schonlein purpura - Discharge Information *PRESCRIPTION DRUG MONITORING PROGRAM REVIEWED*: No *COPY OF PRESCRIPTION DRUG MONITORING REPORT IN PATIENT NICO: No Instructions: Chronic Pain, Adult, Hematuria, Adult Forms: ED Department Discharge Additional Instructions: Follow up in clinic for medication and chronic pain management. Sepsis Event Note (ED) - Focused Exam Vital Signs: Vital Signs Temp Pulse Resp BP Pulse Ox 03/31/21 11:21 98 F 70 20 101/66 100 - My Orders Last 24 Hours: My Active Orders 03/31/21 11:32 Acetaminophen/oxyCODONE [Percocet 325-5 MG] 2 tab PO ONETIME ONE - Assessment/Plan Last 24 Hours: My Active Orders 03/31/21 11:32 Acetaminophen/oxyCODONE [Percocet 325-5 MG] 2 tab PO ONETIME ONE
[2021-03-31 11:31] VITALS: BP 101/66; PULSE 70
[2021-03-31] MEDS ORDERED: Acetaminophen/oxyCODONE 325-5 MG Tab PO ONE (11:32)
== END 2021-03-31 11:47 | disposition home or self-care (01) ==
LOC: DL.ED 10:57
DX: M54.5 Low back pain (principal); R31.9 Hematuria, unspecified; E11.9 Type 2 diabetes mellitus without complications; E66.9 Obesity, unspecified; E78.00 Pure hypercholesterolemia, unspecified; I10 Essential (primary) hypertension; Z87.2 Personal history of diseases of the skin and subcutaneous tissue; Z86.16 Personal history of COVID-19; Z79.899 Other long term (current) drug therapy; Z79.84 Long term (current) use of oral hypoglycemic drugs; Z88.0 Allergy status to penicillin; Z91.030 Bee allergy status; Z88.5 Allergy status to narcotic agent; Z88.6 Allergy status to analgesic agent; Z88.8 Allergy status to other drugs, medicaments and biological substances
CPT/HCPCS: 99283; A9270

== ENCOUNTER 2021-04-02 15:43 | Emergency (ER) | payer MEDICAID ==
--- NOTE | 2021-04-02 17:19 | EDM.PDOC ---
ED HPI GENERAL MEDICAL PROBLEM - General Chief Complaint: Genitourinary Problem Stated Complaint: KIDNEY PAIN Time Seen by Provider: 04/02/21 17:19 Source of Information: Reports: Patient, Old Records, RN, RN Notes Reviewed History Limitations: Reports: No Limitations - History of Present Illness INITIAL COMMENTS - FREE TEXT/NARRATIVE: Pt presents to ER with c/o severe B/L flank pain with nausea, and hematuria. 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 He has been to several nephrologists, urologist, [place], and [facility], and to pain management clinics. He continues to utilized the ER several times a month for break through pain episodes. He as been counselled repeatedly and claims that he is trying to manage his pain at home and through clinic, but cannot take the pain. Onset: Other Duration: Chronic, Recurring Location: Reports: Abdomen, Back Quality: Reports: Same as Previous Episode Severity: Severe Improves with: Reports: None Worsens with: Reports: None Associated Symptoms: Reports: No Other Symptoms left flank Pain Score (Numeric/FACES): 8 - Related Data Allergies Allergy/AdvReac Type Severity Reaction Status Date / Time amoxicillin [Amoxicillin] Allergy Rash Verified 04/02/21 17:28 bee venom protein (honey bee) Allergy Cannot Verified 04/02/21 17:28 Remember butorphanol [From Stadol] Allergy Hallucinati Verified 04/02/21 17:28 ons haloperidol [From Haldol] Allergy Hallucinati Verified 04/02/21 17:28 ons ketorolac tromethamine Allergy Rash Verified 04/02/21 17:28 [From Toradol] metoclopramide [From Reglan] Allergy Agitation Verified 04/02/21 17:28 promethazine HCl Allergy Hallucinati Verified 04/02/21 17:28 [From Phenergan] ons tramadol HCl [From Ultram] Allergy Rash Verified 04/02/21 17:28 Home Meds: Home Meds Tamsulosin HCl [Flomax] 0.4 mg PO BID 05/30/20 [History] Ondansetron [Zofran] 8 mg PO TID PRN 06/21/20 [History] Docusate Sodium [Colace] 100 mg PO BID PRN 10/21/20 [History] Losartan [Cozaar] 25 mg PO BEDTIME 10/24/20 [History] Acetaminophen [Tylenol] 650 mg PO Q4HR PRN 12/28/20 [History] metFORMIN HCl [Metformin ER Gastric] 1,000 mg PO BID 02/28/21 [History] Past Medical History - Past Health History Medical/Surgical History: Denies Medical/Surgical History HEENT History: Reports: None Cardiovascular History: Reports: High Cholesterol, Hypertension Respiratory History: Reports: None Gastrointestinal History: Reports: Cholelithiasis, Gastritis, GERD Other Gastrointestinal History: gallbladder pain Genitourinary History: Reports: Renal Calculus, Other (See Below) 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 Hematologic History: Reports: None Immunologic History: Reports: None Oncologic (Cancer) History: Reports: None Dermatologic History: Reports: None - Infectious Disease History Infectious Disease History: Reports: Chicken Pox, Novel Coronavirus - Past Surgical History Head Surgeries/Procedures: Reports: None HEENT Surgical History: Reports: None Cardiovascular Surgical History: Reports: None GI Surgical History: Reports: Appendectomy, Cholecystectomy Male Surgical History: Reports: Circumcision Other Male Surgeries/Procedures: Has had kidney biopsy Musculoskeletal Surgical History: Reports: Other (See Below) Other Musculoskeletal Surgeries/Procedures:: left arm Social & Family History - Family History Family Medical History: No Pertinent Family History - Caffeine Use Caffeine Use: Reports: None Caffeine Use Comment: Occasional - Living Situation & Occupation Living situation: Reports: Single, Alone Occupation: Employed ED ROS GENERAL - Review of Systems Review Of Systems: Comprehensive ROS is negative, except as noted in HPI. ED EXAM, RENAL/ - Physical Exam Exam: See Below Text/Narrative:: Exam: See Below Text/Narrative:: Exam: See Below Exam Limited By: No Limitations General Appearance: Alert, WD/WN, No Apparent Distress, Obese Head: Atraumatic, Normocephalic Respiratory/Chest: No Respiratory Distress Cardiovascular: Regular Rate, Rhythm GI/Abdominal: Normal Bowel Sounds, Soft, Tender (LUQ, LLQ). No: Guarding, Rigid, Rebound (Male) Exam: Deferred Rectal (Males) Exam: Deferred Back Exam: Full Range of Motion, CVA Tenderness (L) (Moderate), CVA Tenderness (R) (Mild). No: Vertebral Tenderness Neurological: Alert, Oriented, No Motor/Sensory Deficits Psychiatric: Normal Mood Skin Exam: Warm, Dry, Intact, Normal Color, No Rash. No: Ecchymosis, Jaundice, Petechiae Course - Vital Signs Last Recorded V/S: Last Vital Signs Temp 97.6 F 04/02/21 17:24 Pulse 55 L 04/02/21 17:24 Resp 20 04/02/21 17:24 BP 132/79 04/02/21 17:24 Pulse Ox 98 04/02/21 17:24 - Orders/Labs/Meds Orders: Active Orders 24 hr Category Date Time Status Acetaminophen/oxyCODONE [Percocet 325-5 MG] Med 04/02/21 17:44 Once 2 tab PO ONETIME ONE Departure - Departure Time of Disposition: 18:00 Disposition: Home, Self-Care 01 Condition: Good Clinical Impression: Loin pain hematuria syndrome, History of Henoch-Schonlein purpura, Bilateral flank pain - Discharge Information *PRESCRIPTION DRUG MONITORING PROGRAM REVIEWED*: No *COPY OF PRESCRIPTION DRUG MONITORING REPORT IN PATIENT NICO: No Instructions: Flank Pain, Adult Forms: ED Department Discharge Additional Instructions: Follow up in clinic for medication and pain management. Sepsis Event Note (ED) - Focused Exam Vital Signs: Vital Signs Temp Pulse Resp BP Pulse Ox 04/02/21 17:24 97.6 F 55 L 20 132/79 98 - My Orders Last 24 Hours: My Active Orders 04/02/21 17:44 Acetaminophen/oxyCODONE [Percocet 325-5 MG] 2 tab PO ONETIME ONE - Assessment/Plan Last 24 Hours: My Active Orders 04/02/21 17:44 Acetaminophen/oxyCODONE [Percocet 325-5 MG] 2 tab PO ONETIME ONE
[2021-04-02 17:28] VITALS: BP 132/79; PULSE 55
[2021-04-02] MEDS ORDERED: Acetaminophen/oxyCODONE 325-5 MG Tab PO ONE (17:44)
== END 2021-04-02 18:00 | disposition home or self-care (01) ==
LOC: DL.ED 15:43
DX: M54.5 Low back pain (principal); R31.9 Hematuria, unspecified; R10.12 Left upper quadrant pain; R10.32 Left lower quadrant pain; I10 Essential (primary) hypertension; E11.9 Type 2 diabetes mellitus without complications; E66.9 Obesity, unspecified; Z68.42 Body mass index [BMI] 45.0-49.9, adult; Z86.16 Personal history of COVID-19; Z88.0 Allergy status to penicillin; Z91.030 Bee allergy status; Z88.8 Allergy status to other drugs, medicaments and biological substances; Z88.5 Allergy status to narcotic agent; Z88.6 Allergy status to analgesic agent; Z79.84 Long term (current) use of oral hypoglycemic drugs; Z79.899 Other long term (current) drug therapy
CPT/HCPCS: 99283; A9270

== ENCOUNTER 2021-04-04 17:07 | Emergency (ER) | payer MEDICAID ==
[2021-04-04 18:24] VITALS: BP 111/67; PULSE 83
[2021-04-04] MEDS ORDERED: Sodium Chloride 0.9% 10 ML Syringe FLUSH PRN (18:35)
[2021-04-04] MEDS ORDERED: Sodium Chloride 0.9% 1,000 ML IV ONE (18:38)
[2021-04-04] MEDS ORDERED: Vancomycin 2 GM in Sodium Chloride 0.9% 500 ML IV ONE (18:39)
[2021-04-04] MEDS ORDERED: Acetaminophen/oxyCODONE 325-5 MG Tab PO ONE ×2 (18:40→21:43)
[2021-04-04] MEDS ORDERED: diphenhydrAMINE 25 MG Tab PO ONE (18:43)
--- NOTE | 2021-04-04 18:49 | EDM.PDOC ---
<Jovan Villaseñor - Last Filed: 04/04/21 18:44> ED HPI GENERAL MEDICAL PROBLEM - General Chief Complaint: Lower Extremity Injury/Pain Stated Complaint: RIGHT FOOT INFECTED, PAIN, SWALLON Time Seen by Provider: 04/04/21 18:35 Source of Information: Reports: Patient, Old Records, RN, RN Notes Reviewed History Limitations: Reports: No Limitations - History of Present Illness INITIAL COMMENTS - FREE TEXT/NARRATIVE: Patient presents to ED by POV with c/o subjective fever and chills with a painful, red, and hot right foot. Pt states he has a sore to right ventral surface of foot and he thinks it has become infected. He states he was jet skiing 2 weeks ago and had multiple scratches that were dirty, all have healed but the foot. Patient states 4th and 5th digits numb and tingling. Rates discomfort 7/10. Onset: Gradual Duration: Constant, Getting Worse Quality: Reports: Ache, Throbbing Severity: Severe Improves with: Reports: None Worsens with: Reports: Other (Touch and weight bearing), Movement Associated Symptoms: Reports: No Other Symptoms right foot Pain Score (Numeric/FACES): 7 - Related Data Allergies Allergy/AdvReac Type Severity Reaction Status Date / Time amoxicillin [Amoxicillin] Allergy Rash Verified 04/04/21 18:24 bee venom protein (honey bee) Allergy Cannot Verified 04/04/21 18:24 Remember butorphanol [From Stadol] Allergy Hallucinati Verified 04/04/21 18:24 ons haloperidol [From Haldol] Allergy Hallucinati Verified 04/04/21 18:24 ons ketorolac tromethamine Allergy Rash Verified 04/04/21 18:24 [From Toradol] metoclopramide [From Reglan] Allergy Agitation Verified 04/04/21 18:24 promethazine HCl Allergy Hallucinati Verified 04/04/21 18:24 [From Phenergan] ons tramadol HCl [From Ultram] Allergy Rash Verified 04/04/21 18:24 Home Meds: Home Meds Tamsulosin HCl [Flomax] 0.4 mg PO BID 05/30/20 [History] Ondansetron [Zofran] 8 mg PO TID PRN 06/21/20 [History] Docusate Sodium [Colace] 100 mg PO BID PRN 10/21/20 [History] Losartan [Cozaar] 25 mg PO BEDTIME 10/24/20 [History] Acetaminophen [Tylenol] 650 mg PO Q4HR PRN 12/28/20 [History] metFORMIN HCl [Metformin ER Gastric] 1,000 mg PO BID 02/28/21 [History] Past Medical History - Past Health History Medical/Surgical History: Denies Medical/Surgical History HEENT History: Reports: None Cardiovascular History: Reports: High Cholesterol, Hypertension Respiratory History: Reports: None Gastrointestinal History: Reports: Cholelithiasis, Gastritis, GERD Other Gastrointestinal History: gallbladder pain Genitourinary History: Reports: Renal Calculus, Other (See Below) 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 Hematologic History: Reports: None Immunologic History: Reports: None Oncologic (Cancer) History: Reports: None Dermatologic History: Reports: None - Infectious Disease History Infectious Disease History: Reports: Chicken Pox, Novel Coronavirus - Past Surgical History Head Surgeries/Procedures: Reports: None HEENT Surgical History: Reports: None Cardiovascular Surgical History: Reports: None GI Surgical History: Reports: Appendectomy, Cholecystectomy Male Surgical History: Reports: Circumcision Other Male Surgeries/Procedures: Has had kidney biopsy Musculoskeletal Surgical History: Reports: Other (See Below) Other Musculoskeletal Surgeries/Procedures:: left arm Social & Family History - Family History Family Medical History: No Pertinent Family History - Tobacco Use Tobacco Use Status *Q: Current Every Day Tobacco User Years of Tobacco use: 20 Packs/Tins Daily: 0.5 Used Tobacco, but Quit: No - Caffeine Use Caffeine Use: Reports: Coffee Caffeine Use Comment: Occasional - Recreational Drug Use Recreational Drug Use: Yes Recreational Drug Type: Reports: Marijuana/Hashish Recreational Drug Use Frequency: Daily - Living Situation & Occupation Living situation: Reports: Single, Alone Occupation: Employed Review of Systems - Review of Systems Review Of Systems: Comprehensive ROS is negative, except as noted in HPI. ED EXAM, GENERAL - Physical Exam Exam: See Below Exam Limited By: No Limitations General Appearance: Alert, WD/WN, No Apparent Distress, Obese Throat/Mouth: Normal Inspection, Normal Voice, No Airway Compromise Head: Atraumatic, Normocephalic Neck: Normal Inspection Respiratory/Chest: No Respiratory Distress, Lungs Clear, Normal Breath Sounds, No Accessory Muscle Use, Chest Non-Tender Cardiovascular: Normal Peripheral Pulses, Regular Rate, Rhythm GI/Abdominal: Non-Tender Back Exam: Full Range of Motion Extremities: Increased Warmth (Right foot with a subacute appearing abrasion with generalized erythema, soft tissue swelling, tenderness and increased warmth to the ankle.) Neurological: Alert, Oriented, No Motor/Sensory Deficits Psychiatric: Normal Mood Skin Exam: Warm, Dry, No Rash Course - Re-Assessments/Exams Free Text/Narrative Re-Assessment/Exam: 04/04/21 Care of pt transferred to Chris Cazares HEARING AIDE TECHNICIAN at 1900HR shift change. Departure - Departure Disposition: Home, Self-Care 01 Clinical Impression: Cellulitis Qualifiers: Site of cellulitis: extremity Site of cellulitis of extremity: lower extremity Laterality: right Qualified Code(s): L03.115 - Cellulitis of right lower limb - Discharge Information Instructions: Cellulitis, Adult Forms: ED Department Discharge Additional Instructions: Rx: clindamycin Rx: doxycycline 1.) Take all of your antibiotics until gone, even as symptoms improve. 2.) Follow up with your primary care provider in 2-3 days regarding today's visit, sooner should symptoms persist or worsen with medications. 3.) Continue with previously prescribed medications for pain. 4.) You may apply ice to the affected area, as pain and swelling persist. Sepsis Event Note (ED) - Evaluation Sepsis Screening Result: No Definite Risk <Vanessa Cazares - Last Filed: 04/04/21 23:41> Course - Vital Signs Last Recorded V/S: Last Vital Signs Temp 97.5 F 04/04/21 18:20 Pulse 83 04/04/21 18:20 Resp 18 04/04/21 18:20 BP 111/67 04/04/21 18:20 Pulse Ox 99 04/04/21 18:20 - Orders/Labs/Meds Orders: Active Orders 24 hr Category Date Time Status Peripheral IV Care [RC] . DIRECTED Care 04/04/21 18:36 Active CULTURE BLOOD [BC] Stat Lab 04/04/21 18:40 Received CULTURE BLOOD [BC] Stat Lab 04/04/21 19:45 Received Sodium Chloride 0.9% [Saline Flush] Med 04/04/21 18:35 Active 10 ml FLUSH ASDIRECTED PRN Blood Culture x2 Reflex Set [OM.PC] Stat Oth 04/04/21 18:35 Ordered Peripheral IV Insertion Adult [OM.PC] Stat Ot 04/04/21 18:35 Ordered Medication Orders Sodium Chloride (Sodium Chloride 0.9% 10 Ml Syringe) 10 ml FLUSH ASDIRECTED PRN PRN Reason: Keep Vein Open Last Admin: 04/04/21 19:03 Dose: 10 ml Documented by: SARAH Labs: Laboratory Tests 04/04/21 04/04/21 04/04/21 Range/Units 18:40 18:40 18:40 WBC 10.3 H (5.0-10.0) 10^3/uL RBC 5.08 (4.6-6.2) 10^6/uL Hgb 15.1 (14.0-18.0) g/dL Hct 43.8 (40.0-54.0) % MCV 86.2 (80-100) fL MCH 29.7 (27.0-34.0) pg MCHC 34.5 (33.0-35.0) g/dL Plt Count 289 (150-450) 10^3/uL Neut % (Auto) 64.1 (42.2-75.2) % Lymph % (Auto) 26.5 (20.5-50.1) % [place] % (Auto) 7.2 (2-8) % Eos % (Auto) 2.0 (1.0-3.0) % Baso % (Auto) 0.2 (0.0-1.0) % Sodium 140 (136-145) mmol/L Potassium 3.7 (3.5-5.1) mmol/L Chloride 104 (98-107) mmol/L Carbon Dioxide 25 (21-32) mmol/L Anion Gap 14.7 H (7-13) mEq/L BUN 10 (7-18) mg/dL Creatinine 0.86 (0.70-1.30) mg/dL Est Cr Clr Drug Dosing 139.11 mL/min Estimated GFR (MDRD) > 60 BUN/Creatinine Ratio 11.6 (No establ ref range) Glucose 88 (70-99) mg/dL Hemoglobin A1c (<5.7) % Lactic Acid 0.7 (0.4-2.0) mmol/L Calcium 8.4 L (8.5-10.1) mg/dL Total Bilirubin 0.8 (0.2-1.0) mg/dL AST 15 (15-37) U/L ALT 38 (16-63) U/L Alkaline Phosphatase 77 (46-116) U/L C-Reactive Protein 0.7 (0.0-0.9) mg/dL Total Protein 7.5 (6.4-8.2) g/dL Albumin 4.0 (3.4-5.0) g/dL Globulin 3.5 Albumin/Globulin Ratio 1.1 04/04/21 Range/Units 18:40 WBC (5.0-10.0) 10^3/uL RBC (4.6-6.2) 10^6/uL Hgb (14.0-18.0) g/dL Hct (40.0-54.0) % MCV (80-100) fL MCH (27.0-34.0) pg MCHC (33.0-35.0) g/dL Plt Count (150-450) 10^3/uL Neut % (Auto) (42.2-75.2) % Lymph % (Auto) (20.5-50.1) % [place] % (Auto) (2-8) % Eos % (Auto) (1.0-3.0) % Baso % (Auto) (0.0-1.0) % Sodium (136-145) mmol/L Potassium (3.5-5.1) mmol/L Chloride (98-107) mmol/L Carbon Dioxide (21-32) mmol/L Anion Gap (7-13) mEq/L BUN (7-18) mg/dL Creatinine (0.70-1.30) mg/dL Est Cr Clr Drug Dosing mL/min Estimated GFR (MDRD) BUN/Creatinine Ratio (No establ ref range) Glucose (70-99) mg/dL Hemoglobin A1c 5.2 (<5.7) % Lactic Acid (0.4-2.0) mmol/L Calcium (8.5-10.1) mg/dL Total Bilirubin (0.2-1.0) mg/dL AST (15-37) U/L ALT (16-63) U/L Alkaline Phosphatase (46-116) U/L C-Reactive Protein (0.0-0.9) mg/dL Total Protein (6.4-8.2) g/dL Albumin (3.4-5.0) g/dL Globulin Albumin/Globulin Ratio Meds: Medications Generic Name Dose Route Start Last Admin Trade Name Freq PRN Reason Stop Dose Admin Sodium Chloride 10 ml 04/04/21 18:35 04/04/21 19:03 Sodium Chloride 0.9% 10 Ml Syringe FLUSH 10 ml ASDIRECTED PRN Administration Keep Vein Open Discontinued Medications Generic Name Dose Route Start Last Admin Trade Name Freq PRN Reason Stop Dose Admin Diphenhydramine HCl 25 mg 04/04/21 18:43 04/04/21 19:01 Diphenhydramine 25 Mg Tab PO 04/04/21 18:44 25 mg ONETIME ONE Administration Sodium Chloride 1,000 mls @ 999 mls/hr 04/04/21 18:38 04/04/21 19:02 Normal Saline IV 04/04/21 19:38 999 mls/hr .BOLUS ONE Administration Vancomycin HCl 2 gm/ Sodium 500 mls @ 250 mls/hr 04/04/21 18:39 04/04/21 19:03 Chloride IV 04/04/21 20:38 250 mls/hr ONETIME ONE Administration Clindamycin Phosphate 600 mg/ 104 mls @ 200 mls/hr 04/04/21 20:11 04/04/21 20:40 Sodium Chloride IV 04/04/21 20:42 200 mls/hr ONETIME ONE Administration Oxycodone/Acetaminophen 2 tab 04/04/21 18:40 04/04/21 19:01 Acetaminophen/Oxycodone 325-5 Mg Tab PO 04/04/21 18:41 2 tab ONETIME ONE Administration Oxycodone/Acetaminophen 2 tab 04/04/21 21:43 04/04/21 21:58 Acetaminophen/Oxycodone 325-5 Mg Tab PO 04/04/21 21:44 2 tab ONETIME ONE Administration - Re-Assessments/Exams Free Text/Narrative Re-Assessment/Exam: 04/04/21 Care of patient assumed by software writer at 1900. Patient moved to extended stay for antibiotic infusion. Supervisor [employer] received call from floor stating patient refusing antibiotics. Discussed need for IV antibiotics given cellulitis and offered patient different antibiotic as he is concerned about a hypersensitivity reaction to the Vancomycin; the patient has no history of reaction to this medication. Will administer Clindamycin 600mg and treat outpatient with Clindamycin and Doxycycline. Patient verbalized understanding and agreement with the plan of care. Departure - Departure Time of Disposition: 21:45 Condition: Fair - Discharge Information *PRESCRIPTION DRUG MONITORING PROGRAM REVIEWED*: Not Applicable *COPY OF PRESCRIPTION DRUG MONITORING REPORT IN PATIENT NICO: Not Applicable Sepsis Event Note (ED) - Focused Exam Vital Signs: Vital Signs Temp Pulse Resp BP Pulse Ox 04/04/21 18:20 97.5 F 83 18 111/67 99
[2021-04-04 19:12] LABS: HEMOGLOBIN A1C 5.2 % (<5.7)
[2021-04-04 19:18] LABS: ANION GAP 14.7 mEq/L (7-13); CHLORIDE,CL 104 mmol/L (98-107); SODIUM,NA 140 mmol/L (136-145)
[2021-04-04] MEDS ORDERED: Clindamycin Phosphate 600 MG in Sodium Chloride 0.9% 100 ML IV ONE (20:11)
== END 2021-04-04 22:10 | disposition home or self-care (01) ==
LOC: DL.ED 17:07
DX: L03.115 Cellulitis of right lower limb (principal); E78.00 Pure hypercholesterolemia, unspecified; I10 Essential (primary) hypertension; E11.9 Type 2 diabetes mellitus without complications; E66.9 Obesity, unspecified; Z68.41 Body mass index [BMI] 40.0-44.9, adult; Z72.0 Tobacco use; Z91.030 Bee allergy status; Z88.0 Allergy status to penicillin; Z88.5 Allergy status to narcotic agent; Z88.6 Allergy status to analgesic agent; Z79.899 Other long term (current) drug therapy; Z79.84 Long term (current) use of oral hypoglycemic drugs
CPT/HCPCS: 36415; 80053; 83036; 83605; 85025; 86140; 87040; 96365; 96375; 99283; A9270; J3370; J3490; J7030; J7040

== ENCOUNTER 2021-04-05 11:45 | Emergency (ER) | payer MEDICAID ==
[2021-04-05 12:22] VITALS: BP 124/77; PULSE 65
[2021-04-05] MEDS ORDERED: Clindamycin Phosphate 900 MG in Sodium Chloride 0.9% 100 ML IV ONE (12:45)
[2021-04-05] MEDS ORDERED: Doxycycline Monohydrate 100 MG Cap PO ONE (12:45)
[2021-04-05] MEDS ORDERED: Acetaminophen/oxyCODONE 325-5 MG Tab PO ONE (12:46)
[2021-04-05 12:47] LABS: ANION GAP 15.9 mEq/L (7-13); CHLORIDE,CL 103 mmol/L (98-107); SODIUM,NA 139 mmol/L (136-145)
[2021-04-05] MEDS: Sodium Chloride 0.9% 10 ML Syringe FLUSH PRN ×2 (12:58→13:39)
--- NOTE | 2021-04-05 13:42 | EDM.PDOC ---
Scribed by Dian Mendes 04/05/21 [id number] for Jovan Villaseñor MD ED HPI GENERAL MEDICAL PROBLEM - General Stated Complaint: AMBULANCE Time Seen by Provider: 04/05/21 12:19 Source of Information: Reports: Patient, RN Notes Reviewed History Limitations: Reports: No Limitations - History of Present Illness INITIAL COMMENTS - FREE TEXT/NARRATIVE: 30 y/o M c/o R foot pain. Two weeks ago the pt received scratches on his foot while jet skiing. Two days ago one of the scratched areas became red and swollen. The patient was seen in the ER yesterday and treated for cellulitis of the R lower foot. In the ER the patient was given Clindamycin 600mg IV and was sent home with a prescription for Clindamycin and Doxycycline. Today pt states the pain and swelling in the foot is worse and is concerned there is a red streak developing across his toes. Denies fever, cough, chills, drugs, etoh. Duration: Day(s): Location: Reports: Lower Extremity, Right Quality: Reports: Ache, Sharp Severity: Moderate Improves with: Reports: None Worsens with: Reports: Movement Right Feet Pain Score (Numeric/FACES): 10 - Related Data Allergies Allergy/AdvReac Type Severity Reaction Status Date / Time amoxicillin [Amoxicillin] Allergy Rash Verified 04/05/21 12:22 bee venom protein (honey bee) Allergy Cannot Verified 04/05/21 12:22 Remember butorphanol [From Stadol] Allergy Hallucinati Verified 04/05/21 12:22 ons haloperidol [From Haldol] Allergy Hallucinati Verified 04/05/21 12:22 ons ketorolac tromethamine Allergy Rash Verified 04/05/21 12:22 [From Toradol] metoclopramide [From Reglan] Allergy Agitation Verified 04/05/21 12:22 promethazine HCl Allergy Hallucinati Verified 04/05/21 12:22 [From Phenergan] ons tramadol HCl [From Ultram] Allergy Rash Verified 04/05/21 12:22 Home Meds: Home Meds Tamsulosin HCl [Flomax] 0.4 mg PO BID 05/30/20 [History] Ondansetron [Zofran] 8 mg PO TID PRN 06/21/20 [History] Docusate Sodium [Colace] 100 mg PO BID PRN 02/25/21 [History] Losartan [Cozaar] 25 mg PO BEDTIME 10/24/20 [History] Acetaminophen [Tylenol] 650 mg PO Q4HR PRN 12/28/20 [History] metFORMIN HCl [Metformin ER Gastric] 1,000 mg PO BID 02/28/21 [History] Past Medical History - Past Health History Medical/Surgical History: Denies Medical/Surgical History HEENT History: Reports: None Cardiovascular History: Reports: High Cholesterol, Hypertension Respiratory History: Reports: None Gastrointestinal History: Reports: Cholelithiasis, Gastritis, GERD Other Gastrointestinal History: gallbladder pain Genitourinary History: Reports: Renal Calculus, Other (See Below) 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 Hematologic History: Reports: None Immunologic History: Reports: None Oncologic (Cancer) History: Reports: None Dermatologic History: Reports: None - Infectious Disease History Infectious Disease History: Reports: Chicken Pox, Novel Coronavirus - Past Surgical History Head Surgeries/Procedures: Reports: None HEENT Surgical History: Reports: None Cardiovascular Surgical History: Reports: None GI Surgical History: Reports: Appendectomy, Cholecystectomy Male Surgical History: Reports: Circumcision Other Male Surgeries/Procedures: Has had kidney biopsy Musculoskeletal Surgical History: Reports: Other (See Below) Other Musculoskeletal Surgeries/Procedures:: left arm Social & Family History - Family History Family Medical History: No Pertinent Family History - Caffeine Use Caffeine Use: Reports: Coffee Caffeine Use Comment: Occasional - Living Situation & Occupation Living situation: Reports: Single, Alone Occupation: Employed ED ROS GENERAL - Review of Systems Review Of Systems: Comprehensive ROS is negative, except as noted in HPI. ED EXAM, SKIN/RASH Exam: See Below Exam Limited By: No Limitations General Appearance: Alert Respiratory/Chest: No Respiratory Distress, Lungs Clear Cardiovascular: Normal Peripheral Pulses, Regular Rate, Rhythm Peripheral Pulses: 2+: Posterior Tibial (L), Posterior Tibial (R), Dorsalis Pedis (L), Dorsalis Pedis (R) (Male) Exam: Deferred Rectal (Males) Exam: Deferred Extremities: Other (R foot swollen with increased warmth. Scabbed over lesion on lateral dorsal aspect of foot.) Neurological: Alert Psychiatric: Normal Affect Skin: Warm, Dry, Intact Course - Vital Signs Last Recorded V/S: Last Vital Signs Temp 97.8 F 04/05/21 12:18 Pulse 65 04/05/21 12:18 Resp 14 04/05/21 12:18 BP 124/77 04/05/21 12:18 Pulse Ox 100 04/05/21 12:18 - Orders/Labs/Meds Orders: Active Orders 24 hr Category Date Time Status Peripheral IV Care [RC] . DIRECTED Care 04/05/21 11:49 Active Sodium Chloride 0.9% [Saline Flush] Med 04/05/21 11:48 Active 10 ml FLUSH ASDIRECTED PRN DME for Discharge [COMM] Routine Oth 04/05/21 13:37 Ordered Peripheral IV Insertion Adult [OM.PC] Stat Oth 04/05/21 11:48 Ordered Medication Orders Sodium Chloride (Sodium Chloride 0.9% 10 Ml Syringe) 10 ml FLUSH ASDIRECTED PRN PRN Reason: Keep Vein Open Last Admin: 04/05/21 12:58 Dose: 10 ml Documented by: VALERIE Labs: Laboratory Tests 04/05/21 04/05/21 04/05/21 Range/Units 12:15 12:15 12:15 WBC 12.0 H (5.0-10.0) 10^3/uL RBC 5.29 (4.6-6.2) 10^6/uL Hgb 15.7 (14.0-18.0) g/dL Hct 45.0 (40.0-54.0) % MCV 85.1 (80-100) fL MCH 29.7 (27.0-34.0) pg MCHC 34.9 (33.0-35.0) g/dL Plt Count 293 (150-450) 10^3/uL Neut % (Auto) 70.0 (42.2-75.2) % Lymph % (Auto) 21.8 (20.5-50.1) % [place] % (Auto) 6.3 (2-8) % Eos % (Auto) 1.6 (1.0-3.0) % Baso % (Auto) 0.3 (0.0-1.0) % Sodium 139 (136-145) mmol/L Potassium 3.9 (3.5-5.1) mmol/L Chloride 103 (98-107) mmol/L Carbon Dioxide 24 (21-32) mmol/L Anion Gap 15.9 H (7-13) mEq/L BUN 8 (7-18) mg/dL Creatinine 0.77 (0.70-1.30) mg/dL Est Cr Clr Drug Dosing 155.37 mL/min Estimated GFR (MDRD) > 60 BUN/Creatinine Ratio 10.4 (No establ ref range) Glucose 90 (70-99) mg/dL Lactic Acid 0.7 (0.4-2.0) mmol/L Calcium 8.5 (8.5-10.1) mg/dL Total Bilirubin 0.9 (0.2-1.0) mg/dL AST 19 (15-37) U/L ALT 38 (16-63) U/L Alkaline Phosphatase 81 (46-116) U/L C-Reactive Protein 1.6 H (0.0-0.9) mg/dL Total Protein 7.4 (6.4-8.2) g/dL Albumin 3.9 (3.4-5.0) g/dL Globulin 3.5 Albumin/Globulin Ratio 1.1 Meds: Medications Generic Name Dose Route Start Last Admin Trade Name Chavo PRN Reason Stop Dose Admin Sodium Chloride 10 ml 04/05/21 11:48 04/05/21 12:58 Sodium Chloride 0.9% 10 Ml Syringe FLUSH 10 ml ASDIRECTED PRN Administration Keep Vein Open Discontinued Medications Generic Name Dose Route Start Last Admin Trade Name Chavo PRN Reason Stop Dose Admin Doxycycline Monohydrate 100 mg 04/05/21 12:45 04/05/21 13:05 Doxycycline Monohydrate 100 Mg Cap PO 04/05/21 12:46 100 mg ONETIME ONE Administration Clindamycin Phosphate 900 mg/ 106 mls @ 200 mls/hr 04/05/21 12:45 04/05/21 12:58 Sodium Chloride IV 04/05/21 13:16 200 mls/hr ONETIME ONE Administration Oxycodone/Acetaminophen 2 tab 04/05/21 12:46 04/05/21 13:02 Acetaminophen/Oxycodone 325-5 Mg Tab PO 04/05/21 12:47 2 tab ONETIME ONE Administration - Re-Assessments/Exams Free Text/Narrative Re-Assessment/Exam: 04/05/21 13:39 Pt had not filled the antibiotic prescriptions from yesterday's ER visit yet. Despite this his right foot redness appearing to be less than yesterday. Departure - Departure Time of Disposition: 13:40 Disposition: Home, Self-Care 01 Condition: Good Clinical Impression: Cellulitis of right foot - Discharge Information *PRESCRIPTION DRUG MONITORING PROGRAM REVIEWED*: No *COPY OF PRESCRIPTION DRUG MONITORING REPORT IN PATIENT NICO: No Instructions: Cellulitis, Adult, [id number] Forms: ED Department Discharge Additional Instructions: Take Clindamycin and Doxycycline as prescribed, and complete entire antibiotic course. Rest and elevate the right foot. Follow up in clinic in 3 to 4 days for recheck. Sepsis Event Note (ED) - Focused Exam Vital Signs: Vital Signs Temp Pulse Resp BP Pulse Ox 04/05/21 12:18 97.8 F 65 14 124/77 100 - My Orders Last 24 Hours: My Active Orders 04/05/21 11:48 Sodium Chloride 0.9% [Saline Flush] 10 ml FLUSH ASDIRECTED PRN Peripheral IV Insertion Adult [OM.PC] Stat 04/05/21 11:49 Peripheral IV Care [RC] . DIRECTED 04/05/21 13:37 DME for Discharge [COMM] Routine - Assessment/Plan Last 24 Hours: My Active Orders 04/05/21 11:48 Sodium Chloride 0.9% [Saline Flush] 10 ml FLUSH ASDIRECTED PRN Peripheral IV Insertion Adult [OM.PC] Stat 04/05/21 11:49 Peripheral IV Care [RC] . DIRECTED 04/05/21 13:37 DME for Discharge [COMM] Routine I have read and agree with the documentation that has been completed regarding this visit. By signing this record, I attest that the documentation was completed in my physical presence and is an accurate record of the encounter.
== END 2021-04-05 14:02 | disposition home or self-care (01) ==
LOC: DL.ED 11:45
DX: L03.115 Cellulitis of right lower limb (principal); I10 Essential (primary) hypertension; E11.9 Type 2 diabetes mellitus without complications; E66.9 Obesity, unspecified; Z68.41 Body mass index [BMI] 40.0-44.9, adult; Z91.030 Bee allergy status; Z88.8 Allergy status to other drugs, medicaments and biological substances; Z88.0 Allergy status to penicillin; Z88.6 Allergy status to analgesic agent; Z88.5 Allergy status to narcotic agent; Z79.899 Other long term (current) drug therapy; Z79.84 Long term (current) use of oral hypoglycemic drugs
CPT/HCPCS: 36415; 80053; 83605; 85025; 86140; 96365; 99284; A9270; J3490

== ENCOUNTER 2021-04-08 08:07 | Emergency (ER) | payer MEDICAID ==
[2021-04-08 08:21] VITALS: BP 135/84; PULSE 70
[2021-04-08 08:31] LABS: AMPHETAMINES,URINE NEGATIVE (NEGATIVE); BARBITURATES,URINE NEGATIVE (NEGATIVE); BENZODIAZEPINE,URINE NEGATIVE (NEGATIVE); MDMA (ECSTASY), URINE NEGATIVE (NEGATIVE); METHADONE,URINE NEGATIVE (NEGATIVE); METHAMPHETAMINES,URINE NEGATIVE (NEGATIVE); OPIATES,URINE NEGATIVE (NEGATIVE); OXYCODONE,URINE NEGATIVE (NEGATIVE); PHENCYCLIDINE,URINE NEGATIVE (NEGATIVE); TCA,URINE NEGATIVE (NEGATIVE)
[2021-04-08] MEDS ORDERED: Acetaminophen/oxyCODONE 325-5 MG Tab PO ONE (08:39)
--- NOTE | 2021-04-08 08:39 | EDM.PDOC ---
ED HPI GENERAL MEDICAL PROBLEM - General Chief Complaint: Abdominal Pain Stated Complaint: KIDNEY PAIN Time Seen by Provider: 04/08/21 08:30 Source of Information: Reports: Patient, RN, RN Notes Reviewed History Limitations: Reports: No Limitations - History of Present Illness INITIAL COMMENTS - FREE TEXT/NARRATIVE: Elvin is a 30 y/o male with a history of loin pain hematuria syndrome following HSP who presents to the ED via personal vehicle with complaints of dysuria, hematuria, and left flank pain. The patient states he is not currently established with a primary care provider for his chronic pain management as HELGA Ramirez requested he follow an internal medicine provider. He is not currently in contact with his urologist at the [facility] at this time. He denies fever, shaking chills, palpitations, vomiting, constipation, or inability to void. He does attest to nausea and transient diarrhea. He notes he is still currently taking his doxycycline and clindamycin for cellulitis. Left Lower Abdomen Pain Score (Numeric/FACES): 8 - Related Data Allergies Allergy/AdvReac Type Severity Reaction Status Date / Time amoxicillin [Amoxicillin] Allergy Rash Verified 04/08/21 08:21 bee venom protein (honey bee) Allergy Cannot Verified 04/08/21 08:21 Remember butorphanol [From Stadol] Allergy Hallucinati Verified 04/08/21 08:21 ons haloperidol [From Haldol] Allergy Hallucinati Verified 04/08/21 08:21 ons ketorolac tromethamine Allergy Rash Verified 04/08/21 08:21 [From Toradol] metoclopramide [From Reglan] Allergy Agitation Verified 04/08/21 08:21 promethazine HCl Allergy Hallucinati Verified 04/08/21 08:21 [From Phenergan] ons tramadol HCl [From Ultram] Allergy Rash Verified 04/08/21 08:21 Home Meds: Home Meds Tamsulosin HCl [Flomax] 0.4 mg PO BID 05/30/20 [History] Ondansetron [Zofran] 8 mg PO TID PRN 06/21/20 [History] Docusate Sodium [Colace] 100 mg PO BID PRN 10/21/20 [History] Losartan [Cozaar] 25 mg PO BEDTIME 10/24/20 [History] Acetaminophen [Tylenol] 650 mg PO Q4HR PRN 12/28/20 [History] metFORMIN HCl [Metformin ER Gastric] 1,000 mg PO BID 02/28/21 [History] Past Medical History - Past Health History Medical/Surgical History: Denies Medical/Surgical History HEENT History: Reports: None Cardiovascular History: Reports: High Cholesterol, Hypertension Respiratory History: Reports: None Gastrointestinal History: Reports: Cholelithiasis, Gastritis, GERD Other Gastrointestinal History: gallbladder pain Genitourinary History: Reports: Renal Calculus, Other (See Below) 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 Hematologic History: Reports: None Immunologic History: Reports: None Oncologic (Cancer) History: Reports: None Dermatologic History: Reports: None - Infectious Disease History Infectious Disease History: Reports: Chicken Pox, Novel Coronavirus - Past Surgical History Head Surgeries/Procedures: Reports: None HEENT Surgical History: Reports: None Cardiovascular Surgical History: Reports: None GI Surgical History: Reports: Appendectomy, Cholecystectomy Male Surgical History: Reports: Circumcision Other Male Surgeries/Procedures: Has had kidney biopsy Musculoskeletal Surgical History: Reports: Other (See Below) Other Musculoskeletal Surgeries/Procedures:: left arm Social & Family History - Family History Family Medical History: No Pertinent Family History - Tobacco Use Tobacco Use Status *Q: Never Tobacco User - Caffeine Use Caffeine Use: Reports: Soda Caffeine Use Comment: Occasional - Recreational Drug Use Recreational Drug Use: No - Living Situation & Occupation Living situation: Reports: Single, Alone Occupation: Employed ED ROS GENERAL - Review of Systems Review Of Systems: Comprehensive ROS is negative, except as noted in HPI. ED EXAM, RENAL/ - Physical Exam Exam: See Below Exam Limited By: No Limitations General Appearance: Alert, Mild Distress (Left flank pain) Eye Exam: Bilateral Eye: EOMI, Normal Inspection, PERRL (3mm) Ears: Normal External Exam, Hearing Grossly Normal Nose: Normal Inspection, Normal Mucosa, No Blood Throat/Mouth: Normal Inspection, Normal Oropharynx, Normal Voice, No Airway Compromise Head: Atraumatic, Normocephalic Neck: Normal Inspection, Supple, Non-Tender, Full Range of Motion. No: Lymphadenopathy (L), Lymphadenopathy (R) Respiratory/Chest: No Respiratory Distress, Lungs Clear, Normal Breath Sounds, No Accessory Muscle Use, Chest Non-Tender Cardiovascular: Normal Peripheral Pulses, Regular Rate, Rhythm, No Edema, No Gallop, No JVD, No Murmur, No Rub GI/Abdominal: Soft, No Distention, No Abnormal Bruit, No Mass, Tender (To suprapubic region), Abnormal Bowel Sounds (Hypoactive bowel sounds) (Male) Exam: Deferred Rectal (Males) Exam: Deferred Back Exam: Full Range of Motion, CVA Tenderness (L). No: CVA Tenderness (R) Extremities: Normal Inspection, Normal Range of Motion, Normal Capillary Refill Neurological: Alert, Oriented, CN II-XII Intact, Normal Cognition, Normal Gait, No Motor/Sensory Deficits Psychiatric: Normal Affect, Normal Mood Skin Exam: Warm, Dry, Intact, Normal Color, No Rash. No: Cyanosis, Diaphoretic, Jaundice, Mottled, Pallor Lymphatic: No Adenopathy Course - Vital Signs Last Recorded V/S: Last Vital Signs Temp 97.4 F 04/08/21 08:17 Pulse 70 04/08/21 08:17 Resp 16 04/08/21 08:17 BP 135/84 04/08/21 08:17 Pulse Ox 99 04/08/21 08:17 - Orders/Labs/Meds Labs: Laboratory Tests 04/08/21 04/08/21 Range/Units 08:20 08:20 Urine Color [place] (YELLOW) Urine Appearance Slightly cloudy (CLEAR) Urine pH 6.0 (5.0-9.0) Ur Specific [place] >= 1.030 (1.005-1.030) Urine Protein 30 H (NEGATIVE) Urine Glucose (UA) Negative (NEGATIVE) Urine Ketones Negative (NEGATIVE) Urine Occult Blood Large H (NEGATIVE) Urine Nitrite Negative (NEGATIVE) Urine Bilirubin Negative (NEGATIVE) Urine Urobilinogen 0.2 (0.2-1.0) mg/dL Ur Leukocyte Esterase Negative (NEGATIVE) Urine RBC >100 H (0-5) /HPF Urine WBC 0-5 (0-5/HPF) /HPF Ur Epithelial Cells Few (NOT SEEN) /HPF Urine Mucus Few H (NOT SEEN) /LPF Urine Opiates Screen Negative (NEGATIVE) Ur Oxycodone Screen Negative (NEGATIVE) Urine Methadone Screen Negative (NEGATIVE) Ur Barbiturates Screen Negative (NEGATIVE) U Tricyclic Antidepress Negative (NEGATIVE) Ur Phencyclidine Scrn Negative (NEGATIVE) Ur Amphetamine Screen Negative (NEGATIVE) U Methamphetamines Scrn Negative (NEGATIVE) Urine MDMA Screen Negative (NEGATIVE) U Benzodiazepines Scrn Negative (NEGATIVE) Urine Cocaine Screen Negative (NEGATIVE) U Marijuana (THC) Screen Positive H (NEGATIVE) Meds: Medications Discontinued Medications Generic Name Dose Route Start Last Admin Trade Name Freq PRN Reason Stop Dose Admin Ondansetron HCl 4 mg 04/08/21 08:40 04/08/21 08:45 Ondansetron 4 Mg Tab.Dis PO 04/08/21 08:41 4 mg ONETIME ONE Administration Oxycodone/Acetaminophen 2 tab 04/08/21 08:39 04/08/21 08:46 Acetaminophen/Oxycodone 325-5 Mg Tab PO 04/08/21 08:40 2 tab ONETIME ONE Administration - Re-Assessments/Exams Free Text/Narrative Re-Assessment/Exam: 04/08/21 Findings of examination and lab work reviewed with patient. Will treat acute pain with Percocet 5-335mg and nausea with Zofran ODT 4mg. Patient instructed to establish with a primary care provider for chronic pain management as the emergency setting is not appropriate for appropriate management of his chronic condition. Discussed supportive cares for nausea and diarrhea. Red flag signs and symptoms which would warrant reevaluation reviewed. Patient verbalized understanding and agreement with the plan of care. Departure - Departure Time of Disposition: 08:47 Disposition: Home, Self-Care 01 Condition: Good Clinical Impression: Flank pain, History of Henoch-Schonlein purpura, Loin pain hematuria syndrome - Discharge Information *PRESCRIPTION DRUG MONITORING PROGRAM REVIEWED*: Not Applicable *COPY OF PRESCRIPTION DRUG MONITORING REPORT IN PATIENT NICO: Not Applicable Forms: ED Department Discharge Additional Instructions: 1.) Establish with a new care provider for management of your chronic pain. 2.) Drink plenty of fluids to stay hydrated. 3.) Eat a yogurt daily while taking antibiotics to help with gut health. Sepsis Event Note (ED) - Focused Exam Vital Signs: Vital Signs Temp Pulse Resp BP Pulse Ox 04/08/21 08:17 97.4 F 70 16 135/84 99
[2021-04-08] MEDS ORDERED: Ondansetron 4 MG Tab.DIS PO ONE (08:40)
== END 2021-04-08 08:54 | disposition home or self-care (01) ==
LOC: DL.ED 08:07
DX: R10.9 Unspecified abdominal pain (principal); M54.5 Low back pain; R31.9 Hematuria, unspecified; E78.00 Pure hypercholesterolemia, unspecified; I10 Essential (primary) hypertension; E11.9 Type 2 diabetes mellitus without complications; E66.9 Obesity, unspecified; Z68.30 Body mass index [BMI] 30.0-30.9, adult; Z79.84 Long term (current) use of oral hypoglycemic drugs; Z79.899 Other long term (current) drug therapy; Z88.0 Allergy status to penicillin; Z91.030 Bee allergy status; Z88.8 Allergy status to other drugs, medicaments and biological substances; Z88.5 Allergy status to narcotic agent; Z87.2 Personal history of diseases of the skin and subcutaneous tissue
CPT/HCPCS: 80305; 81001; 99283; 99284; A9270

== ENCOUNTER 2021-04-09 19:33 | Emergency (ER) | payer MEDICAID ==
[2021-04-09] MEDS ORDERED: Ondansetron 4 MG Tab.DIS PO ONE ×2 (19:34→20:13)
[2021-04-09] MEDS ORDERED: Acetaminophen/oxyCODONE 325-5 MG Tab PO ONE ×2 (19:34→20:14)
[2021-04-09 19:49] VITALS: BP 140/66; PULSE 66
--- NOTE | 2021-04-09 20:20 | EDM.PDOC ---
ED HPI GENERAL MEDICAL PROBLEM - General Chief Complaint: Abdominal Pain Stated Complaint: SIDE PAIN Time Seen by Provider: 04/09/21 20:10 Source of Information: Reports: Patient History Limitations: Reports: No Limitations - History of Present Illness INITIAL COMMENTS - FREE TEXT/NARRATIVE: This 30 yo male patient reports to the ED with kidney and abdominal pain. The patient reports his symptoms have been present all month. This is the 9th visit for this patient this month. The patient does not have a primary provider at this time, but the patient reports he is going to go to [facility] to get a primary care provider. Onset: Unknown/Unsure Duration: Day(s):, Constant Location: Reports: Abdomen, Back Quality: Reports: Ache, Sharp, Stabbing Severity: Moderate Improves with: Reports: None Worsens with: Reports: None Context: Reports: Other Associated Symptoms: Reports: No Other Symptoms Left Flank Pain Score (Numeric/FACES): 8 - Related Data Allergies Allergy/AdvReac Type Severity Reaction Status Date / Time amoxicillin [Amoxicillin] Allergy Rash Verified 04/09/21 19:41 bee venom protein (honey bee) Allergy Cannot Verified 04/09/21 19:41 Remember butorphanol [From Stadol] Allergy Hallucinati Verified 04/09/21 19:41 ons haloperidol [From Haldol] Allergy Hallucinati Verified 04/09/21 19:41 ons ketorolac tromethamine Allergy Rash Verified 04/09/21 19:41 [From Toradol] metoclopramide [From Reglan] Allergy Agitation Verified 04/09/21 19:41 promethazine HCl Allergy Hallucinati Verified 04/09/21 19:41 [From Phenergan] ons tramadol HCl [From Ultram] Allergy Rash Verified 04/09/21 19:41 Home Meds: Home Meds Tamsulosin HCl [Flomax] 0.4 mg PO BID 05/30/20 [History] Ondansetron [Zofran] 8 mg PO TID PRN 06/21/20 [History] Docusate Sodium [Colace] 100 mg PO BID PRN 10/21/20 [History] Losartan [Cozaar] 25 mg PO BEDTIME 10/24/20 [History] Acetaminophen [Tylenol] 650 mg PO Q4HR PRN 12/28/20 [History] metFORMIN HCl [Metformin ER Gastric] 1,000 mg PO BID 02/28/21 [History] Past Medical History - Past Health History Medical/Surgical History: Denies Medical/Surgical History HEENT History: Reports: None Cardiovascular History: Reports: High Cholesterol, Hypertension Respiratory History: Reports: None Gastrointestinal History: Reports: Cholelithiasis, Gastritis, GERD Other Gastrointestinal History: gallbladder pain Genitourinary History: Reports: Renal Calculus, Other (See Below) 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 Hematologic History: Reports: None Immunologic History: Reports: None Oncologic (Cancer) History: Reports: None Dermatologic History: Reports: None - Infectious Disease History Infectious Disease History: Reports: Chicken Pox, Novel Coronavirus - Past Surgical History Head Surgeries/Procedures: Reports: None HEENT Surgical History: Reports: None Cardiovascular Surgical History: Reports: None GI Surgical History: Reports: Appendectomy, Cholecystectomy Male Surgical History: Reports: Circumcision Other Male Surgeries/Procedures: Has had kidney biopsy Musculoskeletal Surgical History: Reports: Other (See Below) Other Musculoskeletal Surgeries/Procedures:: left arm Social & Family History - Family History Family Medical History: No Pertinent Family History - Tobacco Use Tobacco Use Status *Q: Never Tobacco User - Caffeine Use Caffeine Use: Reports: Soda Caffeine Use Comment: Occasional - Recreational Drug Use Recreational Drug Use: No - Living Situation & Occupation Living situation: Reports: Single, Alone Occupation: Employed ED ROS GENERAL - Review of Systems Review Of Systems: Comprehensive ROS is negative, except as noted in HPI. ED EXAM, RENAL/ - Physical Exam Exam: See Below Exam Limited By: No Limitations General Appearance: Alert, WD/WN, Moderate Distress, Obese Eye Exam: Bilateral Eye: EOMI, Normal Inspection, PERRL Ears: Normal External Exam, Normal Canal, Hearing Grossly Normal, Normal TMs Nose: Normal Inspection, Normal Mucosa, No Blood Throat/Mouth: Normal Inspection, Normal Lips, Normal Teeth, Normal Gums, Normal Oropharynx, Normal Voice, No Airway Compromise Head: Atraumatic, Normocephalic Neck: Normal Inspection, Supple, Non-Tender, Full Range of Motion Respiratory/Chest: No Respiratory Distress, Lungs Clear, Normal Breath Sounds, No Accessory Muscle Use, Chest Non-Tender Cardiovascular: Normal Peripheral Pulses, Regular Rate, Rhythm, No Edema, No Gallop, No JVD, No Murmur, No Rub GI/Abdominal: Normal Bowel Sounds, Soft, Tender (diffuse lower abdomen) (Male) Exam: Deferred Rectal (Males) Exam: Deferred Back Exam: CVA Tenderness (L) Extremities: Normal Inspection, Normal Range of Motion, Non-Tender, Normal Capillary Refill, No Pedal Edema Neurological: Alert, Oriented, CN II-XII Intact, Normal Cognition, Normal Gait, Normal Reflexes, No Motor/Sensory Deficits Psychiatric: Normal Affect, Normal Mood Skin Exam: Warm, Dry, Intact, Normal Color, No Rash Lymphatic: No Adenopathy Course - Vital Signs Last Recorded V/S: Last Vital Signs Temp 97.1 F 04/09/21 19:46 Pulse 66 04/09/21 19:46 Resp 16 04/09/21 19:46 BP 140/66 04/09/21 19:46 Pulse Ox 99 04/09/21 19:46 - Orders/Labs/Meds Meds: Medications Discontinued Medications Generic Name Dose Route Start Last Admin Trade Name Freq PRN Reason Stop Dose Admin Ondansetron HCl 4 mg 04/09/21 20:13 Ondansetron 4 Mg Tab.Dis PO 04/09/21 20:14 ONETIME ONE Oxycodone/Acetaminophen 2 tab 04/09/21 20:14 Acetaminophen/Oxycodone 325-5 Mg Tab PO 04/09/21 20:15 ONETIME ONE Departure - Departure Time of Disposition: 20:18 Disposition: Home, Self-Care 01 Condition: Fair Clinical Impression: Loin pain hematuria syndrome - Discharge Information *PRESCRIPTION DRUG MONITORING PROGRAM REVIEWED*: Not Applicable *COPY OF PRESCRIPTION DRUG MONITORING REPORT IN PATIENT NICO: Not Applicable Forms: ED Department Discharge Care Plan Goals: The patient was advised of the examination results during the visit. The patient was given an oral dose of Zofran and Percocet while in the ED. The patient was discharged with Zofran ODT (4 mg) #2 to take 1 by mouth every 6 hours and Percocet (5/325) #2 to take 1 by mouth every 6 hours as needed for pain. The patient was encouraged to follow-up with a primary care facility for continued evaluation and further management. Sepsis Event Note (ED) - Focused Exam Vital Signs: Vital Signs Temp Pulse Resp BP Pulse Ox 04/09/21 19:46 97.1 F 66 16 140/66 99
[2021-04-09] MEDS ORDERED: Ondansetron 4 MG Tab.DIS ONE (20:21)
[2021-04-09] MEDS ORDERED: Acetaminophen/oxyCODONE 325-5 MG Tab ONE (20:21)
== END 2021-04-09 20:28 | disposition home or self-care (01) ==
LOC: DL.ED 19:33
DX: M54.5 Low back pain (principal); K21.9 Gastro-esophageal reflux disease without esophagitis; E11.9 Type 2 diabetes mellitus without complications; E66.9 Obesity, unspecified; Z68.30 Body mass index [BMI] 30.0-30.9, adult; Z79.899 Other long term (current) drug therapy; Z79.84 Long term (current) use of oral hypoglycemic drugs
CPT/HCPCS: 99283; A9270

== ENCOUNTER 2021-04-10 11:57 | Emergency (ER) | payer MEDICAID ==
[2021-04-10 12:32] VITALS: BP 117/77; PULSE 73
== END 2021-04-10 13:30 | disposition left against medical advice (07) ==
LOC: DL.ED 11:57
DX: Z53.21 Procedure and treatment not carried out due to patient leaving prior to being seen by health care provider (principal)

== ENCOUNTER 2021-04-11 06:39 | Emergency (ER) | payer MEDICAID ==
[2021-04-11 07:02] VITALS: BP 126/74; PULSE 60
--- NOTE | 2021-04-11 07:14 | EDM.PDOC ---
ED HPI GENERAL MEDICAL PROBLEM - General Chief Complaint: Flank Pain Stated Complaint: KIDNEY PAIN Time Seen by Provider: 04/11/21 07:08 Source of Information: Reports: Patient, Old Records, RN, RN Notes Reviewed History Limitations: Reports: No Limitations - History of Present Illness INITIAL COMMENTS - FREE TEXT/NARRATIVE: Elvin is a 30 y/o male with a history of loin pain hematuria following HSP who presents to the ED via personal vehicle with complaints of left flank pain, left suprapubic tenderness, and hematuria. Additionally, the patient reports nausea, diarrhea, and decreased appetite. His last meal was soup two days ago. He states he has not taken any medications for his pain but has been smoking large quantities of marijuana to help with the pain, nausea, and difficulty sleeping. He denies fever, shaking chills, chest pain, shortness of breath, dyspepsia, vomiting, melena, hematochezia, dysuria, or inability to void. Neuropsychiatric Aide questioned patient regarding his visit to the ED yesterday afternoon, at which time he left without being seen; the patient replied he "..did not want to wait for three hours to be seen." He has not yet established with a primary care provider, nor has he filled the medications he was sent home with on 04/09/21. left flank Pain Score (Numeric/FACES): 8 - Related Data Allergies Allergy/AdvReac Type Severity Reaction Status Date / Time amoxicillin [Amoxicillin] Allergy Rash Verified 04/11/21 07:02 bee venom protein (honey bee) Allergy Cannot Verified 04/11/21 07:02 Remember butorphanol [From Stadol] Allergy Hallucinati Verified 04/11/21 07:02 ons haloperidol [From Haldol] Allergy Hallucinati Verified 04/11/21 07:02 ons ketorolac tromethamine Allergy Rash Verified 04/11/21 07:02 [From Toradol] metoclopramide [From Reglan] Allergy Agitation Verified 04/11/21 07:02 promethazine HCl Allergy Hallucinati Verified 04/11/21 07:02 [From Phenergan] ons tramadol HCl [From Ultram] Allergy Rash Verified 04/11/21 07:02 Home Meds: Home Meds Tamsulosin HCl [Flomax] 0.4 mg PO BID 05/30/20 [History] Ondansetron [Zofran] 8 mg PO TID PRN 06/21/20 [History] Docusate Sodium [Colace] 100 mg PO BID PRN 10/21/20 [History] Losartan [Cozaar] 25 mg PO BEDTIME 10/24/20 [History] Acetaminophen [Tylenol] 650 mg PO Q4HR PRN 12/28/20 [History] metFORMIN HCl [Metformin ER Gastric] 1,000 mg PO BID 02/28/21 [History] Past Medical History - Past Health History Medical/Surgical History: Denies Medical/Surgical History HEENT History: Reports: None Cardiovascular History: Reports: High Cholesterol, Hypertension Respiratory History: Reports: None Gastrointestinal History: Reports: Cholelithiasis, Gastritis, GERD Other Gastrointestinal History: gallbladder pain Genitourinary History: Reports: Renal Calculus, Other (See Below) 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 Hematologic History: Reports: None Immunologic History: Reports: None Oncologic (Cancer) History: Reports: None Dermatologic History: Reports: None - Infectious Disease History Infectious Disease History: Reports: Chicken Pox, Novel Coronavirus - Past Surgical History Head Surgeries/Procedures: Reports: None HEENT Surgical History: Reports: None Cardiovascular Surgical History: Reports: None GI Surgical History: Reports: Appendectomy, Cholecystectomy Male Surgical History: Reports: Circumcision Other Male Surgeries/Procedures: Has had kidney biopsy Musculoskeletal Surgical History: Reports: Other (See Below) Other Musculoskeletal Surgeries/Procedures:: left arm Social & Family History - Family History Family Medical History: No Pertinent Family History - Tobacco Use Tobacco Use Status *Q: Current Every Day Tobacco User Years of Tobacco use: 10 Packs/Tins Daily: 0.5 - Caffeine Use Caffeine Use: Reports: Coffee, Soda Caffeine Use Comment: Occasional - Recreational Drug Use Recreational Drug Use: Yes Recreational Drug Type: Reports: Marijuana/Hashish, Other (see below) Other Recreational Drug Type: medical marijuana card - Living Situation & Occupation Living situation: Reports: Single, Alone Occupation: Employed ED ROS GENERAL - Review of Systems Review Of Systems: Comprehensive ROS is negative, except as noted in HPI. ED EXAM, RENAL/ - Physical Exam Exam: See Below Exam Limited By: No Limitations General Appearance: Alert, Mild Distress (Left flank pain), Obese. No: Active Emesis Eye Exam: Bilateral Eye: EOMI, Normal Inspection, PERRL (3mm) Ears: Normal External Exam, Hearing Grossly Normal Nose: Normal Inspection, Normal Mucosa Throat/Mouth: Normal Inspection, Normal Oropharynx, Normal Voice, No Airway Compromise Head: Atraumatic, Normocephalic Neck: Normal Inspection, Supple, Non-Tender, Full Range of Motion. No: Lymphadenopathy (L), Lymphadenopathy (R) Respiratory/Chest: No Respiratory Distress, Lungs Clear, Normal Breath Sounds, No Accessory Muscle Use, Chest Non-Tender Cardiovascular: Normal Peripheral Pulses, Regular Rate, Rhythm, No Edema, No Gallop, No JVD, No Murmur, No Rub GI/Abdominal: Soft, No Distention, No Abnormal Bruit, No Mass, Pelvis Stable, Tender (LLQ and suprapubic tenderness), Abnormal Bowel Sounds (Hypoactive bowel sounds) (Male) Exam: Deferred Rectal (Males) Exam: Deferred Back Exam: Normal Inspection, Full Range of Motion, CVA Tenderness (L), CVA Tenderness (R) Extremities: Normal Inspection, Normal Range of Motion, Non-Tender, No Pedal Edema, Normal Capillary Refill Neurological: Alert, Oriented, CN II-XII Intact, Normal Cognition, Normal Gait, No Motor/Sensory Deficits Psychiatric: Normal Affect, Normal Mood Skin Exam: Warm, Dry, Intact, Normal Color, No Rash. No: Cyanosis, Jaundice, Mottled, Pallor Lymphatic: No Adenopathy Course - Vital Signs Last Recorded V/S: Last Vital Signs Temp 97.7 F 04/11/21 06:59 Pulse 60 04/11/21 06:59 Resp 20 04/11/21 06:59 BP 126/74 04/11/21 06:59 Pulse Ox 100 04/11/21 06:59 - Orders/Labs/Meds Orders: Active Orders 24 hr Category Date Time Status UA W/MICROSCOPIC [URIN] Stat Lab 04/11/21 07:36 Results Labs: Laboratory Tests 04/11/21 04/11/21 Range/Units 07:36 07:36 Urine Color Yellow (YELLOW) Urine Appearance Clear (CLEAR) Urine pH 6.0 (5.0-9.0) Ur Specific [place] >= 1.030 (1.005-1.030) Urine Protein Negative (NEGATIVE) Urine Glucose (UA) Negative (NEGATIVE) Urine Ketones Negative (NEGATIVE) Urine Occult Blood Large H (NEGATIVE) Urine Nitrite Negative (NEGATIVE) Urine Bilirubin Negative (NEGATIVE) Urine Urobilinogen 0.2 (0.2-1.0) mg/dL Ur Leukocyte Esterase Negative (NEGATIVE) Urine Opiates Screen Negative (NEGATIVE) Ur Oxycodone Screen Negative (NEGATIVE) Urine Methadone Screen Negative (NEGATIVE) Ur Barbiturates Screen Negative (NEGATIVE) U Tricyclic Antidepress Negative (NEGATIVE) Ur Phencyclidine Scrn Negative (NEGATIVE) Ur Amphetamine Screen Negative (NEGATIVE) U Methamphetamines Scrn Negative (NEGATIVE) Urine MDMA Screen Negative (NEGATIVE) U Benzodiazepines Scrn Negative (NEGATIVE) Urine Cocaine Screen Negative (NEGATIVE) U Marijuana (THC) Screen Positive H (NEGATIVE) Meds: Medications Discontinued Medications Generic Name Dose Route Start Last Admin Trade Name Freq PRN Reason Stop Dose Admin Ondansetron HCl 8 mg 04/11/21 07:19 04/11/21 07:32 Ondansetron 4 Mg Tab.Dis PO 04/11/21 07:20 8 mg ONETIME ONE Administration Oxycodone/Acetaminophen 2 tab 04/11/21 07:53 Acetaminophen/Oxycodone 325-5 Mg Tab PO 04/11/21 07:54 ONETIME ONE - Re-Assessments/Exams Free Text/Narrative Re-Assessment/Exam: 04/11/21 Findings of examination and lab work reviewed with patient. Will treat acute pain with Percocet 10-650mg. Patient instructed to re-establish with a new primary care provider for management of his chronic pain and chronic health condition. Red flag signs and symptoms which would warrant reevaluation reviewed. Patient verbalized understanding and agreement with the plan of care. Departure - Departure Time of Disposition: 07:58 Disposition: Home, Self-Care 01 Condition: Fair Clinical Impression: History of Henoch-Schonlein purpura, Loin pain hematuria syndrome, Nausea - Discharge Information *PRESCRIPTION DRUG MONITORING PROGRAM REVIEWED*: Not Applicable *COPY OF PRESCRIPTION DRUG MONITORING REPORT IN PATIENT NICO: Not Applicable Instructions: Nausea, Adult Forms: ED Department Discharge Additional Instructions: 1.) Establish care with a primary care provider for management of your chronic pain and chronic health condition. 2.) Fill the prescription of Zofran written for you on 04/09/21 3.) Drink small, frequent sips of water to stay hydrated. 4.) Eat small, frequent meals to avoid nausea. Try a bland diet, avoiding spicy, greasy, high-fat foods. 5.) Apply a cold compress to the left back and left abdomen to help with pain. Sepsis Event Note (ED) - Evaluation Sepsis Screening Result: No Definite Risk - Focused Exam Vital Signs: Vital Signs Temp Pulse Resp BP Pulse Ox 04/11/21 06:59 97.7 F 60 20 126/74 100 - My Orders Last 24 Hours: My Active Orders 04/11/21 07:36 UA W/MICROSCOPIC [URIN] Stat - Assessment/Plan Last 24 Hours: My Active Orders 04/11/21 07:36 UA W/MICROSCOPIC [URIN] Stat
[2021-04-11] MEDS ORDERED: Ondansetron 4 MG Tab.DIS PO ONE (07:19)
[2021-04-11 07:50] LABS: METHAMPHETAMINES,URINE NEGATIVE (NEGATIVE)
[2021-04-11 07:51] LABS: AMPHETAMINES,URINE NEGATIVE (NEGATIVE); BARBITURATES,URINE NEGATIVE (NEGATIVE); BENZODIAZEPINE,URINE NEGATIVE (NEGATIVE); MDMA (ECSTASY), URINE NEGATIVE (NEGATIVE); METHADONE,URINE NEGATIVE (NEGATIVE); OPIATES,URINE NEGATIVE (NEGATIVE); OXYCODONE,URINE NEGATIVE (NEGATIVE); PHENCYCLIDINE,URINE NEGATIVE (NEGATIVE); TCA,URINE NEGATIVE (NEGATIVE)
[2021-04-11] MEDS ORDERED: Acetaminophen/oxyCODONE 325-5 MG Tab PO ONE (07:53)
== END 2021-04-11 08:05 | disposition home or self-care (01) ==
LOC: DL.ED 06:39
DX: M54.5 Low back pain (principal); R31.9 Hematuria, unspecified; R11.0 Nausea; E78.00 Pure hypercholesterolemia, unspecified; I10 Essential (primary) hypertension; E11.9 Type 2 diabetes mellitus without complications; E66.9 Obesity, unspecified; Z68.41 Body mass index [BMI] 40.0-44.9, adult; Z72.0 Tobacco use; Z88.0 Allergy status to penicillin; Z91.030 Bee allergy status; Z88.5 Allergy status to narcotic agent; Z88.6 Allergy status to analgesic agent; Z86.16 Personal history of COVID-19; Z79.84 Long term (current) use of oral hypoglycemic drugs; Z87.2 Personal history of diseases of the skin and subcutaneous tissue
CPT/HCPCS: 80305; 81001; 99283; 99284; A9270

== ENCOUNTER 2021-04-12 08:27 | Emergency (ER) | payer MEDICAID ==
[2021-04-12] MEDS ORDERED: Acetaminophen/oxyCODONE 325-5 MG Tab PO ONE ×2 (08:28→09:02)
[2021-04-12 08:44] VITALS: BP 122/67; PULSE 73
[2021-04-12 09:00] LABS: AMPHETAMINES,URINE NEGATIVE (NEGATIVE); BARBITURATES,URINE NEGATIVE (NEGATIVE); BENZODIAZEPINE,URINE NEGATIVE (NEGATIVE); MDMA (ECSTASY), URINE NEGATIVE (NEGATIVE); METHADONE,URINE NEGATIVE (NEGATIVE); METHAMPHETAMINES,URINE NEGATIVE (NEGATIVE); OPIATES,URINE NEGATIVE (NEGATIVE); PHENCYCLIDINE,URINE NEGATIVE (NEGATIVE); TCA,URINE NEGATIVE (NEGATIVE)
[2021-04-12 09:01] LABS: OXYCODONE,URINE POSITIVE (NEGATIVE)
--- NOTE | 2021-04-12 09:22 | EDM.PDOC ---
ED HPI GENERAL MEDICAL PROBLEM - General Chief Complaint: Flank Pain Stated Complaint: PASSING BLOOD KIDNEY PAIN CANT KEEP ANYTHING DOWN Time Seen by Provider: 04/12/21 09:00 Source of Information: Reports: Patient, Old Records, RN, RN Notes Reviewed History Limitations: Reports: No Limitations - History of Present Illness INITIAL COMMENTS - FREE TEXT/NARRATIVE: Elvin is a 30 y/o male with a history of loin pain hematuria syndrome following HSP who presents to the ED via personal vehicle with complaints of diaphoresis, left flank pain, nausea, and hematuria. The patient states his symptoms have markedly worsened in the past 24 hours and he is concerned. He states he has not been eating or drinking fluids due to nausea and pain. 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 The patient denies fever, rigors, shortness of breath, dyspepsia, vomiting, constipation, or diarrhea. He states he has taken multiple doses of acetaminophen with [id number] alleviation in symptoms. left flank Pain Score (Numeric/FACES): 10 - Related Data Allergies Allergy/AdvReac Type Severity Reaction Status Date / Time amoxicillin [Amoxicillin] Allergy Rash Verified 04/12/21 08:44 bee venom protein (honey bee) Allergy Cannot Verified 04/12/21 08:44 Remember butorphanol [From Stadol] Allergy Hallucinati Verified 04/12/21 08:44 ons haloperidol [From Haldol] Allergy Hallucinati Verified 04/12/21 08:44 ons ketorolac tromethamine Allergy Rash Verified 04/12/21 08:44 [From Toradol] metoclopramide [From Reglan] Allergy Agitation Verified 04/12/21 08:44 promethazine HCl Allergy Hallucinati Verified 04/12/21 08:44 [From Phenergan] ons tramadol HCl [From Ultram] Allergy Rash Verified 04/12/21 08:44 Home Meds: Home Meds Tamsulosin HCl [Flomax] 0.4 mg PO BID 05/30/20 [History] Ondansetron [Zofran] 8 mg PO TID PRN 06/21/20 [History] Docusate Sodium [Colace] 100 mg PO BID PRN 10/21/20 [History] Losartan [Cozaar] 25 mg PO BEDTIME 10/24/20 [History] Acetaminophen [Tylenol] 650 mg PO Q4HR PRN 12/28/20 [History] metFORMIN HCl [Metformin ER Gastric] 1,000 mg PO BID 02/28/21 [History] Past Medical History - Past Health History Medical/Surgical History: Denies Medical/Surgical History HEENT History: Reports: None Cardiovascular History: Reports: High Cholesterol, Hypertension Respiratory History: Reports: None Gastrointestinal History: Reports: Cholelithiasis, Gastritis, GERD Other Gastrointestinal History: gallbladder pain Genitourinary History: Reports: Renal Calculus, Other (See Below) 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 Hematologic History: Reports: None Immunologic History: Reports: None Oncologic (Cancer) History: Reports: None Dermatologic History: Reports: None - Infectious Disease History Infectious Disease History: Reports: Chicken Pox, Novel Coronavirus - Past Surgical History Head Surgeries/Procedures: Reports: None HEENT Surgical History: Reports: None Cardiovascular Surgical History: Reports: None GI Surgical History: Reports: Appendectomy, Cholecystectomy Male Surgical History: Reports: Circumcision Other Male Surgeries/Procedures: Has had kidney biopsy Musculoskeletal Surgical History: Reports: Other (See Below) Other Musculoskeletal Surgeries/Procedures:: left arm Social & Family History - Family History Family Medical History: No Pertinent Family History - Tobacco Use Tobacco Use Status *Q: Current Every Day Tobacco User Years of Tobacco use: 10 Packs/Tins Daily: 0.5 - Caffeine Use Caffeine Use: Reports: None Caffeine Use Comment: Occasional - Recreational Drug Use Recreational Drug Use: Yes Recreational Drug Type: Reports: Marijuana/Hashish, Other (see below) Other Recreational Drug Type: medical marijuana card - Living Situation & Occupation Living situation: Reports: Single, Alone Occupation: Employed ED ROS GENERAL - Review of Systems Review Of Systems: Comprehensive ROS is negative, except as noted in HPI. ED EXAM, RENAL/ - Physical Exam Exam: See Below Exam Limited By: No Limitations General Appearance: Alert, Mild Distress (Pain to left flank and left suprapubic region), Obese Eye Exam: Bilateral Eye: EOMI, Normal Inspection, PERRL (3mm) Ears: Normal External Exam, Hearing Grossly Normal Nose: Normal Inspection, Normal Mucosa, No Blood Throat/Mouth: Normal Voice, No Airway Compromise. No: Normal Oropharynx (Dry mucous membranes) Head: Atraumatic, Normocephalic Neck: Normal Inspection, Supple, Non-Tender, Full Range of Motion. No: Lymphadenopathy (L), Lymphadenopathy (R) Respiratory/Chest: No Respiratory Distress, Lungs Clear, Normal Breath Sounds, No Accessory Muscle Use, Chest Non-Tender Cardiovascular: Normal Peripheral Pulses, Regular Rate, Rhythm, No Edema, No Gallop, No JVD, No Murmur, No Rub GI/Abdominal: Normal Bowel Sounds, Soft, No Distention, No Abnormal Bruit, No Mass, Pelvis Stable, Guarding, Tender (To LLQ and suprapubic region). No: Rigid, Rebound (Male) Exam: Deferred Rectal (Males) Exam: Deferred Back Exam: Normal Inspection, Full Range of Motion, CVA Tenderness (L). No: CVA Tenderness (R) Extremities: Normal Inspection, Normal Range of Motion, Normal Capillary Refill Neurological: Alert, Oriented, CN II-XII Intact, Normal Cognition, Normal Gait, No Motor/Sensory Deficits Psychiatric: Normal Affect, Normal Mood Skin Exam: Warm, Dry, Intact, Normal Color, No Rash. No: Cyanosis, Jaundice, Mottled, Pallor Lymphatic: No Adenopathy Course - Vital Signs Last Recorded V/S: Last Vital Signs Temp 97.3 F 04/12/21 08:40 Pulse 73 04/12/21 08:40 Resp 20 04/12/21 08:40 BP 122/67 04/12/21 08:40 Pulse Ox 100 04/12/21 08:40 - Orders/Labs/Meds Labs: Laboratory Tests 04/12/21 04/12/21 04/12/21 Range/Units 08:52 08:52 09:10 WBC 7.9 (5.0-10.0) 10^3/uL RBC 5.37 (4.6-6.2) 10^6/uL Hgb 15.9 (14.0-18.0) g/dL Hct 45.9 (40.0-54.0) % MCV 85.5 (80-100) fL MCH 29.6 (27.0-34.0) pg MCHC 34.6 (33.0-35.0) g/dL Plt Count 308 (150-450) 10^3/uL Neut % (Auto) 58.8 (42.2-75.2) % Lymph % (Auto) 31.8 (20.5-50.1) % [place] % (Auto) 7.2 (2-8) % Eos % (Auto) 1.9 (1.0-3.0) % Baso % (Auto) 0.3 (0.0-1.0) % ESR 3 (0-15) mm/hr Sodium (136-145) mmol/L Potassium (3.5-5.1) mmol/L Chloride (98-107) mmol/L Carbon Dioxide (21-32) mmol/L Anion Gap (7-13) mEq/L BUN (7-18) mg/dL Creatinine (0.70-1.30) mg/dL Est Cr Clr Drug Dosing mL/min Estimated GFR (MDRD) BUN/Creatinine Ratio (No establ ref range) Glucose (70-99) mg/dL Calcium (8.5-10.1) mg/dL Magnesium (1.8-2.4) mg/dL Total Bilirubin (0.2-1.0) mg/dL AST (15-37) U/L ALT (16-63) U/L Alkaline Phosphatase (46-116) U/L C-Reactive Protein (0.0-0.9) mg/dL Total Protein (6.4-8.2) g/dL Albumin (3.4-5.0) g/dL Globulin Albumin/Globulin Ratio Urine Color Yellow (YELLOW) Urine Appearance Cloudy (CLEAR) Urine pH 6.0 (5.0-9.0) Ur Specific [place] 1.025 (1.005-1.030) Urine Protein Trace H (NEGATIVE) Urine Glucose (UA) Negative (NEGATIVE) Urine Ketones Negative (NEGATIVE) Urine Occult Blood Large H (NEGATIVE) Urine Nitrite Negative (NEGATIVE) Urine Bilirubin Negative (NEGATIVE) Urine Urobilinogen 0.2 (0.2-1.0) mg/dL Ur Leukocyte Esterase Negative (NEGATIVE) Urine RBC >100 H (0-5) /HPF Urine WBC Not seen (0-5/HPF) /HPF Ur Epithelial Cells Occasional (NOT SEEN) /HPF Urine Bacteria Rare (0-FEW/HPF) /HPF Urine Mucus Few H (NOT SEEN) /LPF Urine Opiates Screen Negative (NEGATIVE) Ur Oxycodone Screen Positive H (NEGATIVE) Urine Methadone Screen Negative (NEGATIVE) Ur Barbiturates Screen Negative (NEGATIVE) U Tricyclic Antidepress Negative (NEGATIVE) Ur Phencyclidine Scrn Negative (NEGATIVE) Ur Amphetamine Screen Negative (NEGATIVE) U Methamphetamines Scrn Negative (NEGATIVE) Urine MDMA Screen Negative (NEGATIVE) U Benzodiazepines Scrn Negative (NEGATIVE) Urine Cocaine Screen Negative (NEGATIVE) U Marijuana (THC) Screen Positive H (NEGATIVE) Ethyl Alcohol (0) mg/dL 04/12/21 Range/Units 09:10 WBC (5.0-10.0) 10^3/uL RBC (4.6-6.2) 10^6/uL Hgb (14.0-18.0) g/dL Hct (40.0-54.0) % MCV (80-100) fL MCH (27.0-34.0) pg MCHC (33.0-35.0) g/dL Plt Count (150-450) 10^3/uL Neut % (Auto) (42.2-75.2) % Lymph % (Auto) (20.5-50.1) % [place] % (Auto) (2-8) % Eos % (Auto) (1.0-3.0) % Baso % (Auto) (0.0-1.0) % ESR (0-15) mm/hr Sodium 129 L D (136-145) mmol/L Potassium 3.8 (3.5-5.1) mmol/L Chloride 98 (98-107) mmol/L Carbon Dioxide 25 (21-32) mmol/L Anion Gap 9.8 (7-13) mEq/L BUN 15 (7-18) mg/dL Creatinine 0.88 (0.70-1.30) mg/dL Est Cr Clr Drug Dosing 135.95 mL/min Estimated GFR (MDRD) > 60 BUN/Creatinine Ratio 17.0 (No establ ref range) Glucose 93 (70-99) mg/dL Calcium 8.8 (8.5-10.1) mg/dL Magnesium 2.1 (1.8-2.4) mg/dL Total Bilirubin 0.7 (0.2-1.0) mg/dL AST 17 (15-37) U/L ALT 35 (16-63) U/L Alkaline Phosphatase 78 (46-116) U/L C-Reactive Protein < 0.2 (0.0-0.9) mg/dL Total Protein 7.7 (6.4-8.2) g/dL Albumin 4.1 (3.4-5.0) g/dL Globulin 3.6 Albumin/Globulin Ratio 1.1 Urine Color (YELLOW) Urine Appearance (CLEAR) Urine pH (5.0-9.0) Ur Specific [place] (1.005-1.030) Urine Protein (NEGATIVE) Urine Glucose (UA) (NEGATIVE) Urine Ketones (NEGATIVE) Urine Occult Blood (NEGATIVE) Urine Nitrite (NEGATIVE) Urine Bilirubin (NEGATIVE) Urine Urobilinogen (0.2-1.0) mg/dL Ur Leukocyte Esterase (NEGATIVE) Urine RBC (0-5) /HPF Urine WBC (0-5/HPF) /HPF Ur Epithelial Cells (NOT SEEN) /HPF Urine Bacteria (0-FEW/HPF) /HPF Urine Mucus (NOT SEEN) /LPF Urine Opiates Screen (NEGATIVE) Ur Oxycodone Screen (NEGATIVE) Urine Methadone Screen (NEGATIVE) Ur Barbiturates Screen (NEGATIVE) U Tricyclic Antidepress (NEGATIVE) Ur Phencyclidine Scrn (NEGATIVE) Ur Amphetamine Screen (NEGATIVE) U Methamphetamines Scrn (NEGATIVE) Urine MDMA Screen (NEGATIVE) U Benzodiazepines Scrn (NEGATIVE) Urine Cocaine Screen (NEGATIVE) U Marijuana (THC) Screen (NEGATIVE) Ethyl Alcohol < 3 (0) mg/dL Meds: Medications Discontinued Medications Generic Name Dose Route Start Last Admin Trade Name Chavo PRN Reason Stop Dose Admin Sodium Chloride 1,000 mls @ 999 mls/hr 04/12/21 09:46 04/12/21 09:58 Normal Saline IV 04/12/21 10:46 999 mls/hr .BOLUS ONE Administration Oxycodone/Acetaminophen 2 tab 04/12/21 09:02 04/12/21 09:09 Acetaminophen/Oxycodone 325-5 Mg Tab PO 04/12/21 09:03 2 tab ONETIME ONE Administration - Re-Assessments/Exams Free Text/Narrative Re-Assessment/Exam: 04/12/21 Blood work obtained given worsening symptoms. NS 1L bolus initiated for dehydration. Findings of examination and lab work reviewed with patient. Discussed possibility of dehydration causing increase in symptoms, as well as lack of 24 hour chronic pain management, as cause for increased symptoms. Patient states he called [facility] and now has an appointment to establish care on 04-29-21. Patient states he does not have a plan for pain management until that time; underwriter mortgage loan suggested reaching out to his previous PCP. Red flag signs and symptoms which would warrant reevaluation reviewed. Patient verbalized understanding and agreement with the plan of care. Departure - Departure Time of Disposition: 10:47 Disposition: Home, Self-Care 01 Condition: Fair Clinical Impression: History of Henoch-Schonlein purpura, Loin pain hematuria syndrome - Discharge Information *PRESCRIPTION DRUG MONITORING PROGRAM REVIEWED*: Not Applicable *COPY OF PRESCRIPTION DRUG MONITORING REPORT IN PATIENT NICO: Not Applicable Instructions: Dehydration, Adult, Hyponatremia Forms: ED Department Discharge Additional Instructions: 1.) Keep your new appointment with your provider at [facility] to establish care. 2.) Drink small, frequent sips of water and fluids to stay hydrated. 3.) Eat small, frequent meals to avoid nausea. Eat a bland, easily digestible diet. 4.) Reach out to your previous auto care center manager and surgical team for guidance with your chronic health condition and chronic pain. Sepsis Event Note (ED) - Evaluation Sepsis Screening Result: No Definite Risk - Focused Exam Vital Signs: Vital Signs Temp Pulse Resp BP Pulse Ox 04/12/21 08:40 97.3 F 73 20 122/67 100
[2021-04-12 09:33] LABS: ANION GAP 9.8 mEq/L (7-13); CHLORIDE,CL 98 mmol/L (98-107); SODIUM,NA 129 mmol/L (136-145)
[2021-04-12] MEDS ORDERED: Sodium Chloride 0.9% 1,000 ML IV ONE (09:46)
[2021-04-12] MEDS ORDERED: Acetaminophen/oxyCODONE 325-5 MG Tab ONE (10:54)
== END 2021-04-12 11:00 | disposition home or self-care (01) ==
LOC: DL.ED 08:27
DX: M54.5 Low back pain (principal); R31.9 Hematuria, unspecified; I10 Essential (primary) hypertension; E11.9 Type 2 diabetes mellitus without complications; E66.9 Obesity, unspecified; Z68.41 Body mass index [BMI] 40.0-44.9, adult; Z79.84 Long term (current) use of oral hypoglycemic drugs; Z79.899 Other long term (current) drug therapy; Z88.0 Allergy status to penicillin; Z91.030 Bee allergy status; Z88.5 Allergy status to narcotic agent; Z88.6 Allergy status to analgesic agent; Z88.8 Allergy status to other drugs, medicaments and biological substances; Z72.0 Tobacco use; Z87.2 Personal history of diseases of the skin and subcutaneous tissue
CPT/HCPCS: 36415; 80053; 80305; 80307; 81001; 83735; 85025; 85651; 86140; 99283; 99284; A9270; J7030

== ENCOUNTER 2021-04-15 09:57 | Emergency (ER) | payer MEDICAID ==
[2021-04-15 11:12] VITALS: BP 129/73; PULSE 62
[2021-04-15] MEDS ORDERED: Acetaminophen/oxyCODONE 325-5 MG Tab PO ONE (11:27)
--- NOTE | 2021-04-15 11:36 | EDM.PDOC ---
ED HPI GENERAL MEDICAL PROBLEM - General Chief Complaint: Abdominal Pain Stated Complaint: FLANK PAIN Time Seen by Provider: 04/15/21 11:15 Source of Information: Reports: Patient History Limitations: Reports: No Limitations - History of Present Illness INITIAL COMMENTS - FREE TEXT/NARRATIVE: This 30 yo male patient reports to the ED with left lower abdomen and left flank pain. The patient reports his symptoms have been intermittent, but consistent with his chronic pain. The patient reports he attempted to get a Clinic appointment all week, but has not been able to get into a clinic. The patient reports he has an appointment with [facility] on April 29 to establish another primary care provider. Onset: Unknown/Unsure Duration: Intermittent Location: Reports: Abdomen Quality: Reports: Ache, Sharp Severity: Moderate Improves with: Reports: None Worsens with: Reports: None Context: Reports: Other Associated Symptoms: Reports: Other Left Abdomen Pain Score (Numeric/FACES): 7 - Related Data Allergies Allergy/AdvReac Type Severity Reaction Status Date / Time amoxicillin [Amoxicillin] Allergy Rash Verified 04/15/21 11:16 bee venom protein (honey bee) Allergy Cannot Verified 04/15/21 11:16 Remember butorphanol [From Stadol] Allergy Hallucinati Verified 04/15/21 11:16 ons haloperidol [From Haldol] Allergy Hallucinati Verified 04/15/21 11:16 ons ketorolac tromethamine Allergy Rash Verified 04/15/21 11:16 [From Toradol] metoclopramide [From Reglan] Allergy Agitation Verified 04/15/21 11:16 promethazine HCl Allergy Hallucinati Verified 04/15/21 11:16 [From Phenergan] ons tramadol HCl [From Ultram] Allergy Rash Verified 04/15/21 11:16 Home Meds: Home Meds Tamsulosin HCl [Flomax] 0.4 mg PO BID 05/30/20 [History] Ondansetron [Zofran] 8 mg PO TID PRN 06/21/20 [History] Losartan [Cozaar] 25 mg PO BEDTIME 10/24/20 [History] Acetaminophen [Tylenol] 650 mg PO Q4HR PRN 12/28/20 [History] metFORMIN HCl [Metformin ER Gastric] 1,000 mg PO BID 02/28/21 [History] Past Medical History - Past Health History Medical/Surgical History: Denies Medical/Surgical History HEENT History: Reports: None Cardiovascular History: Reports: High Cholesterol, Hypertension Respiratory History: Reports: None Gastrointestinal History: Reports: Cholelithiasis, Gastritis, GERD Other Gastrointestinal History: gallbladder pain Genitourinary History: Reports: Renal Calculus, Other (See Below) 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 Hematologic History: Reports: None Immunologic History: Reports: None Oncologic (Cancer) History: Reports: None Dermatologic History: Reports: None - Infectious Disease History Infectious Disease History: Reports: Chicken Pox, Novel Coronavirus - Past Surgical History Head Surgeries/Procedures: Reports: None HEENT Surgical History: Reports: None Cardiovascular Surgical History: Reports: None GI Surgical History: Reports: Appendectomy, Cholecystectomy Male Surgical History: Reports: Circumcision Other Male Surgeries/Procedures: Has had kidney biopsy Musculoskeletal Surgical History: Reports: Other (See Below) Other Musculoskeletal Surgeries/Procedures:: left arm Social & Family History - Family History Family Medical History: No Pertinent Family History - Tobacco Use Tobacco Use Status *Q: Never Tobacco User - Caffeine Use Caffeine Use: Reports: None Caffeine Use Comment: Occasional - Recreational Drug Use Recreational Drug Use: No - Living Situation & Occupation Living situation: Reports: Single, Alone Occupation: Employed ED ROS GENERAL - Review of Systems Review Of Systems: Comprehensive ROS is negative, except as noted in HPI. ED EXAM, RENAL/ - Physical Exam Exam: See Below Exam Limited By: No Limitations General Appearance: Alert, WD/WN, Moderate Distress, Obese Eye Exam: Bilateral Eye: EOMI, Normal Inspection, PERRL Ears: Normal External Exam, Normal Canal, Hearing Grossly Normal, Normal TMs Nose: Normal Inspection, Normal Mucosa, No Blood Throat/Mouth: Normal Inspection, Normal Lips, Normal Teeth, Normal Gums, Normal Oropharynx, Normal Voice, No Airway Compromise Head: Atraumatic, Normocephalic Neck: Normal Inspection, Supple, Non-Tender, Full Range of Motion Respiratory/Chest: No Respiratory Distress, Lungs Clear, Normal Breath Sounds, No Accessory Muscle Use, Chest Non-Tender Cardiovascular: Normal Peripheral Pulses, Regular Rate, Rhythm, No Edema, No Gallop, No JVD, No Murmur, No Rub GI/Abdominal: Tender (left sided) (Male) Exam: Deferred Rectal (Males) Exam: Deferred Back Exam: Normal Inspection, Full Range of Motion, NT Extremities: Normal Inspection, Normal Range of Motion, Non-Tender, Normal Capillary Refill, No Pedal Edema Neurological: Alert, Oriented, CN II-XII Intact, Normal Cognition, Normal Gait, Normal Reflexes, No Motor/Sensory Deficits Psychiatric: Normal Affect, Normal Mood Skin Exam: Warm, Dry, Intact, Normal Color, No Rash Lymphatic: No Adenopathy Course - Vital Signs Last Recorded V/S: Last Vital Signs Temp 97.2 F 04/15/21 11:11 Pulse 62 04/15/21 11:11 Resp 20 04/15/21 11:11 BP 129/73 04/15/21 11:11 Pulse Ox 100 04/15/21 11:11 - Orders/Labs/Meds Meds: Medications Discontinued Medications Generic Name Dose Route Start Last Admin Trade Name Chavo PRN Reason Stop Dose Admin Oxycodone/Acetaminophen 1 tab 04/15/21 11:27 Acetaminophen/Oxycodone 325-5 Mg Tab PO 04/15/21 11:28 ONETIME ONE Departure - Departure Time of Disposition: 11:37 Disposition: Home, Self-Care 01 Condition: Fair Clinical Impression: Loin pain hematuria syndrome - Discharge Information *PRESCRIPTION DRUG MONITORING PROGRAM REVIEWED*: Not Applicable *COPY OF PRESCRIPTION DRUG MONITORING REPORT IN PATIENT NICO: Not Applicable Care Plan Goals: The patient was advised of the examination results during the visit. The patient as given an oral dose of Percocet while in the ED. The patient was advised that he will need to get a primary care provider to manage his chronic pain. As the patient reports he has an appointment with [facility] on April 29, the patient was given a prescription for Percocet (5/325) #4 to the patient should take 1 by mouth every 6 hours as needed for pain. If the patient has any additional symptoms or concerns, the patient should either return to the ED or visit his primary care facility. Sepsis Event Note (ED) - Evaluation Sepsis Screening Result: No Definite Risk - Focused Exam Vital Signs: Vital Signs Temp Pulse Resp BP Pulse Ox 04/15/21 11:11 97.2 F 62 20 129/73 100
== END 2021-04-15 11:50 | disposition home or self-care (01) ==
LOC: DL.ED 09:57
DX: R31.9 Hematuria, unspecified (principal); M54.5 Low back pain; E66.9 Obesity, unspecified; I10 Essential (primary) hypertension; E11.9 Type 2 diabetes mellitus without complications; Z88.0 Allergy status to penicillin; Z91.030 Bee allergy status; Z88.8 Allergy status to other drugs, medicaments and biological substances; Z88.6 Allergy status to analgesic agent; Z79.84 Long term (current) use of oral hypoglycemic drugs; Z79.899 Other long term (current) drug therapy; Z68.41 Body mass index [BMI] 40.0-44.9, adult; Z86.16 Personal history of COVID-19
CPT/HCPCS: 99283; A9270-GY

== ENCOUNTER 2021-04-16 21:37 | Emergency (ER) | payer MEDICAID ==
[2021-04-16 22:38] VITALS: BP 127/83; PULSE 89
--- NOTE | 2021-04-16 23:56 | EDM.PDOC ---
ED HPI GENERAL MEDICAL PROBLEM - General Chief Complaint: Genitourinary Problem Stated Complaint: KIDNEYS PAIN. Time Seen by Provider: 04/16/21 23:53 Source of Information: Reports: Patient History Limitations: Reports: No Limitations - History of Present Illness INITIAL COMMENTS - FREE TEXT/NARRATIVE: Unfortunate 30-year-old obese male who presents emerged part today with comp laint of left flank pain. The patient has a chronic history of loin hematuria syndrome. The patient reports that he has chronic pain from this and reports his pain tonight is similar to previous episodes of chronic pain associated with loin hematuria syndrome. The patient reports that he has been seen by a specialist and is set up to have an auto renal transplant should he be able to lose the associated weight. The patient is here today for chronic pain, he was seen here yesterday and was given oxycodone for pain. The patient reports that he vomits occasionally when he has this but he has Zofran at home to cover his vomiting he has had no fever no chills no cough no congestion no chest pain or shortness of breath Abdominal Pain Score (Numeric/FACES): 10 - Related Data Allergies Allergy/AdvReac Type Severity Reaction Status Date / Time amoxicillin [Amoxicillin] Allergy Rash Verified 04/16/21 22:45 bee venom protein (honey bee) Allergy Cannot Verified 04/16/21 22:45 Remember butorphanol [From Stadol] Allergy Hallucinati Verified 04/16/21 22:45 ons haloperidol [From Haldol] Allergy Hallucinati Verified 04/16/21 22:45 ons ketorolac tromethamine Allergy Rash Verified 04/16/21 22:45 [From Toradol] metoclopramide [From Reglan] Allergy Agitation Verified 04/16/21 22:45 promethazine HCl Allergy Hallucinati Verified 04/16/21 22:45 [From Phenergan] ons tramadol HCl [From Ultram] Allergy Rash Verified 04/16/21 22:45 Home Meds: Home Meds Tamsulosin HCl [Flomax] 0.4 mg PO BID 05/30/20 [History] Ondansetron [Zofran] 8 mg PO TID PRN 06/21/20 [History] Acetaminophen [Tylenol] 650 mg PO Q4HR PRN 12/28/20 [History] metFORMIN HCl [Metformin ER Gastric] 1,000 mg PO BID 02/28/21 [History] Past Medical History - Past Health History Medical/Surgical History: Denies Medical/Surgical History HEENT History: Reports: None Cardiovascular History: Reports: High Cholesterol Respiratory History: Reports: None Gastrointestinal History: Reports: Cholelithiasis, Gastritis, GERD Other Gastrointestinal History: gallbladder pain Genitourinary History: Reports: Renal Calculus, Other (See Below) 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 Hematologic History: Reports: None Immunologic History: Reports: None Oncologic (Cancer) History: Reports: None Dermatologic History: Reports: None - Infectious Disease History Infectious Disease History: Reports: Chicken Pox, Novel Coronavirus - Past Surgical History Head Surgeries/Procedures: Reports: None HEENT Surgical History: Reports: None Cardiovascular Surgical History: Reports: None GI Surgical History: Reports: Appendectomy, Cholecystectomy Male Surgical History: Reports: Circumcision Other Male Surgeries/Procedures: Has had kidney biopsy Musculoskeletal Surgical History: Reports: Other (See Below) Other Musculoskeletal Surgeries/Procedures:: left arm Social & Family History - Family History Family Medical History: No Pertinent Family History - Tobacco Use Tobacco Use Status *Q: Never Tobacco User Second Hand Smoke Exposure: No - Caffeine Use Caffeine Use: Reports: Coffee Caffeine Use Comment: Occasional - Recreational Drug Use Recreational Drug Use: No - Living Situation & Occupation Living situation: Reports: Single, Alone Occupation: Employed ED ROS GENERAL - Review of Systems Review Of Systems: See Below Constitutional: Denies: Fever, Chills GI/Abdominal: Reports: Abdominal Pain, Other (flank pain) ED EXAM, GI/ABD - Physical Exam Exam: See Below Exam Limited By: No Limitations General Appearance: Alert, WD/WN, Mild Distress, Obese Throat/Mouth: Normal Inspection, Normal Lips, Normal Teeth, Normal Gums, Normal Oropharynx, Normal Voice, No Airway Compromise Head: Atraumatic, Normocephalic Neck: Normal Inspection, Supple, Non-Tender, Full Range of Motion Respiratory/Chest: No Respiratory Distress, Lungs Clear, Normal Breath Sounds, No Accessory Muscle Use, Chest Non-Tender Cardiovascular: Normal Peripheral Pulses, Regular Rate, Rhythm, No Edema, No Gallop, No JVD, No Murmur, No Rub GI/Abdominal Exam: Normal Bowel Sounds, Soft, No Organomegaly, No Distention, No Abnormal Bruit, No Mass, Pelvis Stable, Tender (Left lower quadrant pain, left flank pain) Back Exam: Normal Inspection, Full Range of Motion, NT Extremities: Normal Inspection, Normal Range of Motion, Non-Tender, Normal Capillary Refill, No Pedal Edema Neurological: Alert, Oriented Skin Exam: Warm, Dry, No Rash Course - Vital Signs Text/Narrative:: I had an extensive discussion with patient regarding opioid use in the emergency department and the inappropriateness of the utilization of the emergency department for chronic pain, I recommended the patient follow-up outpatient with chronic pain management or his PCP for his chronic pain, the patient verbalizes understanding Last Recorded V/S: Last Vital Signs Temp 97.8 F 04/16/21 22:37 Pulse 89 04/16/21 22:37 Resp 18 04/16/21 22:37 BP 127/83 04/16/21 22:37 Pulse Ox 98 04/16/21 22:37 Departure - Departure Time of Disposition: 23:55 Disposition: Home, Self-Care 01 Condition: Good Clinical Impression: Chronic abdominal pain - Discharge Information *PRESCRIPTION DRUG MONITORING PROGRAM REVIEWED*: No *COPY OF PRESCRIPTION DRUG MONITORING REPORT IN PATIENT NICO: No Additional Instructions: Home, rest, adequate fluids, Tylenol as needed for pain, take your Zofran as needed for nausea, return as needed for any worsening condition Sepsis Event Note (ED) - Evaluation Sepsis Screening Result: No Definite Risk - Focused Exam Vital Signs: Vital Signs Temp Pulse Resp BP Pulse Ox 04/16/21 22:37 97.8 F 89 18 127/83 98
== END 2021-04-17 | disposition home or self-care (01) ==
LOC: DL.ED 21:37
DX: R10.32 Left lower quadrant pain (principal); G89.29 Other chronic pain; E78.00 Pure hypercholesterolemia, unspecified; E11.9 Type 2 diabetes mellitus without complications; E66.9 Obesity, unspecified; Z68.44 Body mass index [BMI] 60.0-69.9, adult; Z88.0 Allergy status to penicillin; Z91.030 Bee allergy status; Z88.5 Allergy status to narcotic agent; Z88.8 Allergy status to other drugs, medicaments and biological substances; Z79.84 Long term (current) use of oral hypoglycemic drugs; Z79.899 Other long term (current) drug therapy
CPT/HCPCS: 99283

== ENCOUNTER 2021-04-17 10:05 | Emergency (ER) | payer MEDICAID ==
[2021-04-17] MEDS ORDERED: Acetaminophen/oxyCODONE 325-5 MG Tab PO ONE (10:26)
[2021-04-17 10:28] VITALS: BP 126/68; PULSE 99
--- NOTE | 2021-04-17 10:33 | EDM.PDOC ---
ED HPI GENERAL MEDICAL PROBLEM - General Stated Complaint: KIDNEY PAIN Time Seen by Provider: 04/17/21 10:25 Source of Information: Reports: Patient History Limitations: Reports: No Limitations - History of Present Illness INITIAL COMMENTS - FREE TEXT/NARRATIVE: This 30 yo male patient reports to the ED with left sided abdominal pain. The patient reports his pain is consistent with previous episodes. The patient has been seen in this ED 3 times over the past 3 days with similar symptoms. The patient reports he has been attempting to establish with a [place] provider, but has not been able to get an appointment at this time. Onset: Today Duration: Constant Location: Reports: Abdomen Quality: Reports: Ache Severity: Moderate Improves with: Reports: None Worsens with: Reports: None Context: Reports: Other Associated Symptoms: Reports: No Other Symptoms Chest Pain Score (Numeric/FACES): 6 - Related Data Allergies Allergy/AdvReac Type Severity Reaction Status Date / Time amoxicillin [Amoxicillin] Allergy Rash Verified 04/17/21 10:28 bee venom protein (honey bee) Allergy Cannot Verified 04/17/21 10:28 Remember butorphanol [From Stadol] Allergy Hallucinati Verified 04/17/21 10:28 ons haloperidol [From Haldol] Allergy Hallucinati Verified 04/17/21 10:28 ons ketorolac tromethamine Allergy Rash Verified 04/17/21 10:28 [From Toradol] metoclopramide [From Reglan] Allergy Agitation Verified 04/17/21 10:28 promethazine HCl Allergy Hallucinati Verified 04/17/21 10:28 [From Phenergan] ons tramadol HCl [From Ultram] Allergy Rash Verified 04/17/21 10:28 Home Meds: Home Meds Tamsulosin HCl [Flomax] 0.4 mg PO BID 05/30/20 [History] Ondansetron [Zofran] 8 mg PO TID PRN 06/21/20 [History] Acetaminophen [Tylenol] 650 mg PO Q4HR PRN 12/28/20 [History] metFORMIN HCl [Metformin ER Gastric] 1,000 mg PO BID 02/28/21 [History] Past Medical History - Past Health History Medical/Surgical History: Denies Medical/Surgical History HEENT History: Reports: None Cardiovascular History: Reports: High Cholesterol Respiratory History: Reports: None Gastrointestinal History: Reports: Cholelithiasis, Gastritis, GERD Other Gastrointestinal History: gallbladder pain Genitourinary History: Reports: Renal Calculus, Other (See Below) 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 Hematologic History: Reports: None Immunologic History: Reports: None Oncologic (Cancer) History: Reports: None Dermatologic History: Reports: None - Infectious Disease History Infectious Disease History: Reports: Chicken Pox, Novel Coronavirus - Past Surgical History Head Surgeries/Procedures: Reports: None HEENT Surgical History: Reports: None Cardiovascular Surgical History: Reports: None GI Surgical History: Reports: Appendectomy, Cholecystectomy Male Surgical History: Reports: Circumcision Other Male Surgeries/Procedures: Has had kidney biopsy Musculoskeletal Surgical History: Reports: Other (See Below) Other Musculoskeletal Surgeries/Procedures:: left arm Social & Family History - Family History Family Medical History: No Pertinent Family History - Caffeine Use Caffeine Use: Reports: Coffee Caffeine Use Comment: Occasional - Living Situation & Occupation Living situation: Reports: Single, Alone Occupation: Employed ED ROS GENERAL - Review of Systems Review Of Systems: Comprehensive ROS is negative, except as noted in HPI. ED EXAM, RENAL/ - Physical Exam Exam: See Below Exam Limited By: No Limitations General Appearance: Alert, WD/WN, Moderate Distress, Obese Ears: Normal External Exam, Normal Canal, Hearing Grossly Normal, Normal TMs Nose: Normal Inspection, Normal Mucosa, No Blood Throat/Mouth: Normal Inspection, Normal Lips, Normal Teeth, Normal Gums, Normal Oropharynx, Normal Voice, No Airway Compromise Head: Atraumatic, Normocephalic Neck: Normal Inspection, Supple, Non-Tender, Full Range of Motion Respiratory/Chest: No Respiratory Distress, Lungs Clear, Normal Breath Sounds, No Accessory Muscle Use, Chest Non-Tender Cardiovascular: Normal Peripheral Pulses, Regular Rate, Rhythm, No Edema, No Gallop, No JVD, No Murmur, No Rub GI/Abdominal: Normal Bowel Sounds, No Organomegaly, No Distention, No Abnormal Bruit, No Mass, Pelvis Stable, Tender (left sided) (Male) Exam: Deferred Rectal (Males) Exam: Deferred Back Exam: Normal Inspection, Full Range of Motion, NT Extremities: Normal Inspection, Normal Range of Motion, Non-Tender, Normal Capillary Refill, No Pedal Edema Neurological: Alert, Oriented, CN II-XII Intact, Normal Cognition, Normal Gait, Normal Reflexes, No Motor/Sensory Deficits Psychiatric: Normal Affect, Normal Mood Skin Exam: Warm, Dry, Intact, Normal Color, No Rash Lymphatic: No Adenopathy Course - Vital Signs Last Recorded V/S: Last Vital Signs Temp 97.9 F 04/17/21 10:24 Pulse 99 04/17/21 10:24 Resp 14 04/17/21 10:24 BP 126/68 04/17/21 10:24 Pulse Ox 99 04/17/21 10:24 - Orders/Labs/Meds Meds: Medications Discontinued Medications Generic Name Dose Route Start Last Admin Trade Name Chavo PRN Reason Stop Dose Admin Oxycodone/Acetaminophen 1 tab 04/17/21 10:26 Acetaminophen/Oxycodone 325-5 Mg Tab PO 04/17/21 10:27 ONETIME ONE Departure - Departure Time of Disposition: 10:32 Disposition: Home, Self-Care 01 Condition: Fair Clinical Impression: Loin pain hematuria syndrome - Discharge Information *PRESCRIPTION DRUG MONITORING PROGRAM REVIEWED*: Yes *COPY OF PRESCRIPTION DRUG MONITORING REPORT IN PATIENT NICO: Yes Forms: ED Department Discharge Care Plan Goals: The patient was advised of the examination results during the visit. The patient was given an oral dose of Percocet. The patient was advised that he will have to find a primary care provider to manage his symptoms. If the patient has any additional symptoms or further concerns, the patient should either visit a primary care facility or return to the emergency department. Sepsis Event Note (ED) - Focused Exam Vital Signs: Vital Signs Temp Pulse Resp BP Pulse Ox 04/17/21 10:24 97.9 F 99 14 126/68 99
== END 2021-04-17 10:43 | disposition home or self-care (01) ==
LOC: DL.ED 10:05
DX: N39.8 Other specified disorders of urinary system (principal); E11.9 Type 2 diabetes mellitus without complications; E66.9 Obesity, unspecified; Z68.45 Body mass index [BMI] 70 or greater, adult; Z88.0 Allergy status to penicillin; Z79.84 Long term (current) use of oral hypoglycemic drugs; Z79.899 Other long term (current) drug therapy; Z91.030 Bee allergy status; Z88.5 Allergy status to narcotic agent; Z88.8 Allergy status to other drugs, medicaments and biological substances
CPT/HCPCS: 99283; A9270

== ENCOUNTER 2021-04-23 23:51 | Emergency (ER) | payer MEDICAID | END 2021-04-24 00:41 | disposition left against medical advice (07) | LOC: DL.ED 23:51 | DX: Z53.21 Procedure and treatment not carried out due to patient leaving prior to being seen by health care provider (principal) ==

== ENCOUNTER 2021-04-25 07:25 | Emergency (ER) | payer MEDICAID ==
[2021-04-25] MEDS ORDERED: Benzocaine/Cetylpyridinium/Menthol Lozenge MUCMEM ONE (07:44)
[2021-04-25 07:45] VITALS: BP 127/72; PULSE 74
--- NOTE | 2021-04-25 07:51 | EDM.PDOC ---
ED HPI GENERAL MEDICAL PROBLEM - General Chief Complaint: Flank Pain Stated Complaint: kidney pain Time Seen by Provider: 04/25/21 07:45 Source of Information: Reports: Patient, Old Records, RN, RN Notes Reviewed History Limitations: Reports: No Limitations - History of Present Illness INITIAL COMMENTS - FREE TEXT/NARRATIVE: Elvin is a 30 y/o male with a history of loin pain hematuria syndrome following HSP who presents to the ED via personal vehicle with complaints of left flank pain and hematuria. The patient reports he was hospitalized at [facility] after transfer from [facility] five days ago for dehydration; he was discharged after rehydration therapy three days ago. He states his pain has been ongoing since that time. The patient has yet to establish with a PCP and has not taken any medication for his pain. He reports he has an appointment with Nicholas at [facility] to establish care at 1300 today. He states he also has an appointment with a PCP at [facility] in [place] set for four days from now if his appointment with Nicholas does not go well. Additionally, the patient reports dry cough, congestion, and sore throat which started three days ago. 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 He has been taking cough drops for his symptoms. He denies fever, headache, vision changes, dizziness, chest pain, palpitations, shortness of breath, wheezing, vomiting, or diarrhea. Bilateral Flank Pain Score (Numeric/FACES): 8 - Related Data Allergies Allergy/AdvReac Type Severity Reaction Status Date / Time amoxicillin [Amoxicillin] Allergy Rash Verified 04/25/21 07:37 bee venom protein (honey bee) Allergy Cannot Verified 04/25/21 07:37 Remember butorphanol [From Stadol] Allergy Hallucinati Verified 04/25/21 07:37 ons haloperidol [From Haldol] Allergy Hallucinati Verified 04/25/21 07:37 ons ketorolac tromethamine Allergy Rash Verified 04/25/21 07:37 [From Toradol] metoclopramide [From Reglan] Allergy Agitation Verified 04/25/21 07:37 promethazine HCl Allergy Hallucinati Verified 04/25/21 07:37 [From Phenergan] ons tramadol HCl [From Ultram] Allergy Rash Verified 04/25/21 07:37 Home Meds: Home Meds Tamsulosin HCl [Flomax] 0.4 mg PO BID 05/30/20 [History] Ondansetron [Zofran] 8 mg PO TID PRN 06/21/20 [History] Acetaminophen [Tylenol] 650 mg PO Q4HR PRN 12/28/20 [History] metFORMIN HCl [Metformin ER Gastric] 1,000 mg PO BID 02/28/21 [History] Past Medical History - Past Health History Medical/Surgical History: Denies Medical/Surgical History HEENT History: Reports: None Cardiovascular History: Reports: High Cholesterol Respiratory History: Reports: None Gastrointestinal History: Reports: Cholelithiasis, Gastritis, GERD Other Gastrointestinal History: gallbladder pain Genitourinary History: Reports: Renal Calculus, Other (See Below) 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 Hematologic History: Reports: None Immunologic History: Reports: None Oncologic (Cancer) History: Reports: None Dermatologic History: Reports: None - Infectious Disease History Infectious Disease History: Reports: Chicken Pox, Novel Coronavirus - Past Surgical History Head Surgeries/Procedures: Reports: None HEENT Surgical History: Reports: None Cardiovascular Surgical History: Reports: None GI Surgical History: Reports: Appendectomy, Cholecystectomy Male Surgical History: Reports: Circumcision Other Male Surgeries/Procedures: Has had kidney biopsy Musculoskeletal Surgical History: Reports: Other (See Below) Other Musculoskeletal Surgeries/Procedures:: left arm Social & Family History - Family History Family Medical History: No Pertinent Family History - Caffeine Use Caffeine Use: Reports: Coffee Caffeine Use Comment: Occasional - Living Situation & Occupation Living situation: Reports: Single, Alone Occupation: Employed ED ROS GENERAL - Review of Systems Review Of Systems: Comprehensive ROS is negative, except as noted in HPI. ED EXAM, RENAL/ - Physical Exam Exam: See Below Exam Limited By: No Limitations General Appearance: Alert, No Apparent Distress, Obese. No: Active Emesis Eye Exam: Bilateral Eye: EOMI, Normal Inspection, PERRL (3mm) Ears: Normal External Exam, Normal Canal, Hearing Grossly Normal, Normal TMs Nose: Normal Inspection, Normal Mucosa, No Blood Throat/Mouth: Normal Inspection, Normal Oropharynx, Normal Voice, No Airway Compromise, Inflammation (Erythema to posterior oropharynx) Head: Atraumatic, Normocephalic Neck: Normal Inspection, Supple, Non-Tender, Full Range of Motion. No: Lymphadenopathy (L), Lymphadenopathy (R) Respiratory/Chest: No Respiratory Distress, Lungs Clear, Normal Breath Sounds, No Accessory Muscle Use, Chest Non-Tender. No: Crackles, Rales, Rhonchi, Wheezing, Stridor, Retractions, Prolonged Expiration Cardiovascular: Normal Peripheral Pulses, Regular Rate, Rhythm, No Edema, No Gallop, No JVD, No Murmur, No Rub GI/Abdominal: Normal Bowel Sounds, Soft, No Distention, No Abnormal Bruit, No Mass, Pelvis Stable, Tender (To left suprapbuic region) (Male) Exam: Deferred Rectal (Males) Exam: Deferred Back Exam: Normal Inspection, Full Range of Motion, CVA Tenderness (L). No: CVA Tenderness (R) Extremities: Normal Inspection, Normal Range of Motion Neurological: Alert, Oriented, CN II-XII Intact, Normal Cognition, Normal Gait, No Motor/Sensory Deficits Psychiatric: Normal Affect, Normal Mood Skin Exam: Warm, Dry, Intact, Normal Color, No Rash. No: Cyanosis, Jaundice, Mottled, Pallor Lymphatic: No Adenopathy Course - Vital Signs Last Recorded V/S: Last Vital Signs Temp 96.1 F L 04/25/21 07:38 Pulse 74 04/25/21 07:38 Resp 18 04/25/21 07:38 BP 127/72 04/25/21 07:38 Pulse Ox 100 04/25/21 07:38 - Orders/Labs/Meds Labs: Laboratory Tests 04/25/21 04/25/21 Range/Units 07:49 07:49 Urine Color Yellow (YELLOW) Urine Appearance Slightly cloudy (CLEAR) Urine pH 6.0 (5.0-9.0) Ur Specific [place] >= 1.030 (1.005-1.030) Urine Protein Negative (NEGATIVE) Urine Glucose (UA) Negative (NEGATIVE) Urine Ketones Negative (NEGATIVE) Urine Occult Blood Large H (NEGATIVE) Urine Nitrite Negative (NEGATIVE) Urine Bilirubin Negative (NEGATIVE) Urine Urobilinogen 0.2 (0.2-1.0) mg/dL Ur Leukocyte Esterase Negative (NEGATIVE) Urine RBC >100 H (0-5) /HPF Urine WBC 0-5 (0-5/HPF) /HPF Ur Epithelial Cells Moderate H (NOT SEEN) /HPF Urine Opiates Screen Negative (NEGATIVE) Ur Oxycodone Screen Negative (NEGATIVE) Urine Methadone Screen Negative (NEGATIVE) Ur Barbiturates Screen Negative (NEGATIVE) U Tricyclic Antidepress Negative (NEGATIVE) Ur Phencyclidine Scrn Negative (NEGATIVE) Ur Amphetamine Screen Negative (NEGATIVE) U Methamphetamines Scrn Negative (NEGATIVE) Urine MDMA Screen Negative (NEGATIVE) U Benzodiazepines Scrn Negative (NEGATIVE) Urine Cocaine Screen Negative (NEGATIVE) U Marijuana (THC) Screen Positive H (NEGATIVE) Meds: Medications Discontinued Medications Generic Name Dose Route Start Last Admin Trade Name Freq PRN Reason Stop Dose Admin Benzocaine/Menthol 1 lozenge 04/25/21 07:44 04/25/21 07:58 Benzocaine/Cetylpyridinium/Menthol Lozenge MUCMEM 04/25/21 07:45 1 lozenge ONETIME ONE Administration Oxycodone/Acetaminophen 1 tab 04/25/21 08:05 04/25/21 08:14 Acetaminophen/Oxycodone 325-5 Mg Tab PO 04/25/21 08:06 1 tab ONETIME ONE Administration - Re-Assessments/Exams Free Text/Narrative Re-Assessment/Exam: 04/25/21 Cepacol lozenge administered. UA and UDS sent. Findings of examination and lab work reviewed with patient. Will treat acute pain with Percocet 5-325mg. Patient instructed to keep appointment to establish care. Discussed supportive cares for upper respiratory infection. Red flag signs and symptoms which would warrant reevaluation reviewed. Patient verbalized understanding and agreement with the plan of care. Departure - Departure Time of Disposition: 08:17 Disposition: Home, Self-Care 01 Condition: Good Clinical Impression: History of Henoch-Schonlein purpura, Loin pain hematuria syndrome Upper respiratory infection Qualifiers: URI type: unspecified URI Qualified Code(s): J06.9 - Acute upper respiratory in fection, unspecified - Discharge Information *PRESCRIPTION DRUG MONITORING PROGRAM REVIEWED*: Not Applicable *COPY OF PRESCRIPTION DRUG MONITORING REPORT IN PATIENT NICO: Not Applicable Instructions: Viral Respiratory Infection Forms: ED Department Discharge Additional Instructions: 1.) Keep your appointment with Nicholas for this afternoon. 2.) Continue with [id number] cold medications, including cough syrup and drops. You may take Chloraseptic spray for sore throat. 3.) Drink plenty of water to stay hydrated. Sepsis Event Note (ED) - Focused Exam Vital Signs: Vital Signs Temp Pulse Resp BP Pulse Ox 04/25/21 07:38 96.1 F L 74 18 127/72 100
[2021-04-25 08:04] LABS: AMPHETAMINES,URINE NEGATIVE (NEGATIVE); BARBITURATES,URINE NEGATIVE (NEGATIVE); BENZODIAZEPINE,URINE NEGATIVE (NEGATIVE); MDMA (ECSTASY), URINE NEGATIVE (NEGATIVE); METHADONE,URINE NEGATIVE (NEGATIVE); METHAMPHETAMINES,URINE NEGATIVE (NEGATIVE); OPIATES,URINE NEGATIVE (NEGATIVE); OXYCODONE,URINE NEGATIVE (NEGATIVE); PHENCYCLIDINE,URINE NEGATIVE (NEGATIVE); TCA,URINE NEGATIVE (NEGATIVE)
[2021-04-25] MEDS ORDERED: Acetaminophen/oxyCODONE 325-5 MG Tab PO ONE (08:05)
== END 2021-04-25 08:17 | disposition home or self-care (01) ==
LOC: DL.ED 07:25
DX: M54.5 Low back pain (principal); J06.9 Acute upper respiratory infection, unspecified; R31.9 Hematuria, unspecified; E11.9 Type 2 diabetes mellitus without complications; E66.9 Obesity, unspecified; Z68.42 Body mass index [BMI] 45.0-49.9, adult; Z79.84 Long term (current) use of oral hypoglycemic drugs; Z88.0 Allergy status to penicillin; Z91.030 Bee allergy status; Z88.5 Allergy status to narcotic agent; Z88.8 Allergy status to other drugs, medicaments and biological substances
CPT/HCPCS: 80305; 81001; 99284; A9270

== ENCOUNTER 2021-04-28 00:06 | Emergency (ER) | payer MEDICAID ==
[2021-04-28 01:53] LABS: AMPHETAMINES,URINE NEGATIVE (NEGATIVE); BARBITURATES,URINE NEGATIVE (NEGATIVE); BENZODIAZEPINE,URINE NEGATIVE (NEGATIVE); MDMA (ECSTASY), URINE NEGATIVE (NEGATIVE); METHADONE,URINE NEGATIVE (NEGATIVE); METHAMPHETAMINES,URINE NEGATIVE (NEGATIVE); OPIATES,URINE NEGATIVE (NEGATIVE); OXYCODONE,URINE NEGATIVE (NEGATIVE); PHENCYCLIDINE,URINE NEGATIVE (NEGATIVE); TCA,URINE NEGATIVE (NEGATIVE)
--- NOTE | 2021-04-28 01:57 | EDM.PDOC ---
ED HPI GENERAL MEDICAL PROBLEM - General Chief Complaint: Back Pain or Injury Stated Complaint: SEVERE KIDNEY PAIN Time Seen by Provider: 04/28/21 01:25 Source of Information: Reports: Patient History Limitations: Reports: No Limitations - History of Present Illness INITIAL COMMENTS - FREE TEXT/NARRATIVE: ED with c/o usual left flank and groin pain. Patient has been seen numerous times for same complaint. Reports still hoping to lose weight so may have surgery to hopefully relive discomfort but not losing much weight. Pending chronic pain appointment, Working now with [facility], Left Flank Pain Score (Numeric/FACES): 8 - Related Data Allergies Allergy/AdvReac Type Severity Reaction Status Date / Time amoxicillin [Amoxicillin] Allergy Rash Verified 04/25/21 07:37 bee venom protein (honey bee) Allergy Cannot Verified 04/25/21 07:37 Remember butorphanol [From Stadol] Allergy Hallucinati Verified 04/25/21 07:37 ons haloperidol [From Haldol] Allergy Hallucinati Verified 04/25/21 07:37 ons ketorolac tromethamine Allergy Rash Verified 04/25/21 07:37 [From Toradol] metoclopramide [From Reglan] Allergy Agitation Verified 04/25/21 07:37 promethazine HCl Allergy Hallucinati Verified 04/25/21 07:37 [From Phenergan] ons tramadol HCl [From Ultram] Allergy Rash Verified 04/25/21 07:37 Home Meds: Home Meds Tamsulosin HCl [Flomax] 0.4 mg PO BID 05/30/20 [History] Ondansetron [Zofran] 8 mg PO TID PRN 06/21/20 [History] Acetaminophen [Tylenol] 650 mg PO Q4HR PRN 12/28/20 [History] metFORMIN HCl [Metformin ER Gastric] 1,000 mg PO BID 02/28/21 [History] Past Medical History - Past Health History Medical/Surgical History: Denies Medical/Surgical History HEENT History: Reports: None Cardiovascular History: Reports: High Cholesterol Respiratory History: Reports: None Gastrointestinal History: Reports: Cholelithiasis, Gastritis, GERD Other Gastrointestinal History: gallbladder pain Genitourinary History: Reports: Renal Calculus, Other (See Below) 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 Hematologic History: Reports: None Immunologic History: Reports: None Oncologic (Cancer) History: Reports: None Dermatologic History: Reports: None - Infectious Disease History Infectious Disease History: Reports: Chicken Pox, Novel Coronavirus - Past Surgical History Head Surgeries/Procedures: Reports: None HEENT Surgical History: Reports: None Cardiovascular Surgical History: Reports: None GI Surgical History: Reports: Appendectomy, Cholecystectomy Male Surgical History: Reports: Circumcision Other Male Surgeries/Procedures: Has had kidney biopsy Musculoskeletal Surgical History: Reports: Other (See Below) Other Musculoskeletal Surgeries/Procedures:: left arm Social & Family History - Family History Family Medical History: No Pertinent Family History - Tobacco Use Tobacco Use Status *Q: Never Tobacco User Second Hand Smoke Exposure: No - Caffeine Use Caffeine Use: Reports: Coffee Caffeine Use Comment: Occasional - Recreational Drug Use Recreational Drug Use: No - Living Situation & Occupation Living situation: Reports: Single, Alone Occupation: Employed ED ROS GENERAL - Review of Systems Review Of Systems: Comprehensive ROS is negative, except as noted in HPI. ED EXAM,LOWER BACK PAIN/INJURY - Physical Exam Exam: See Below Exam Limited By: No Limitations General Appearance: Alert, Mild Distress, Obese Eye Exam: Bilateral Eye: EOMI Ears: Normal External Exam Throat/Mouth: Normal Inspection Head: Atraumatic, Normocephalic Neck: Normal Inspection Respiratory/Chest: No Respiratory Distress, Lungs Clear, Normal Breath Sounds, No Accessory Muscle Use, Wheezing (intermittent left upper clears with cough) Cardiovascular: Normal Peripheral Pulses, Regular Rate, Rhythm GI/Abdominal: Normal Bowel Sounds, Soft Back Exam: CVA Tenderness (L) Extremities: Normal Inspection Neurological: Alert, Normal Gait, Oriented x 3 Psychiatric: Normal Affect, Normal Mood Course - Vital Signs Last Recorded V/S: Last Vital Signs Temp 96.2 F L 04/28/21 01:11 Pulse 82 04/28/21 01:11 Resp 18 04/28/21 01:11 BP 133/80 04/28/21 01:11 Pulse Ox 99 04/28/21 01:11 - Orders/Labs/Meds Labs: Laboratory Tests 04/28/21 04/28/21 Range/Units 01:15 01:15 Urine Color Dark yellow (YELLOW) Urine Appearance Slightly cloudy (CLEAR) Urine pH 6.0 (5.0-9.0) Ur Specific [place] >= 1.030 (1.005-1.030) Urine Protein 30 H (NEGATIVE) Urine Glucose (UA) Negative (NEGATIVE) Urine Ketones Negative (NEGATIVE) Urine Occult Blood Large H (NEGATIVE) Urine Nitrite Negative (NEGATIVE) Urine Bilirubin Negative (NEGATIVE) Urine Urobilinogen 0.2 (0.2-1.0) mg/dL Ur Leukocyte Esterase Negative (NEGATIVE) Urine RBC >100 H (0-5) /HPF Urine WBC 0-5 (0-5/HPF) /HPF Ur Epithelial Cells Few (NOT SEEN) /HPF Urine Bacteria Rare (0-FEW/HPF) /HPF Urine Mucus Moderate H (NOT SEEN) /LPF Urine Opiates Screen Negative (NEGATIVE) Ur Oxycodone Screen Negative (NEGATIVE) Urine Methadone Screen Negative (NEGATIVE) Ur Barbiturates Screen Negative (NEGATIVE) U Tricyclic Antidepress Negative (NEGATIVE) Ur Phencyclidine Scrn Negative (NEGATIVE) Ur Amphetamine Screen Negative (NEGATIVE) U Methamphetamines Scrn Negative (NEGATIVE) Urine MDMA Screen Negative (NEGATIVE) U Benzodiazepines Scrn Negative (NEGATIVE) Urine Cocaine Screen Negative (NEGATIVE) U Marijuana (THC) Screen Positive H (NEGATIVE) Meds: Medications Discontinued Medications Generic Name Dose Route Start Last Admin Trade Name Freq PRN Reason Stop Dose Admin Oxycodone/Acetaminophen 1 tab 04/28/21 01:52 Acetaminophen/Oxycodone 325-5 Mg Tab PO 04/28/21 01:53 ONETIME ONE Departure - Departure Time of Disposition: 01:55 Disposition: Home, Self-Care 01 Condition: Fair Clinical Impression: Flank pain, Chronic abdominal pain - Discharge Information *PRESCRIPTION DRUG MONITORING PROGRAM REVIEWED*: No *COPY OF PRESCRIPTION DRUG MONITORING REPORT IN PATIENT NICO: No Instructions: Abdominal Pain, Adult, [id number] Forms: ED Department Discharge Additional Instructions: diet as tolerated increase activity as able limit dietary calories, avoid high sugar/ high carb foods follow primary care for medication management Sepsis Event Note (ED) - Focused Exam Vital Signs: Vital Signs Temp Pulse Resp BP Pulse Ox 04/28/21 01:11 96.2 F L 82 18 133/80 99
[2021-04-28] MEDS: Acetaminophen/oxyCODONE 325-5 MG Tab PO ONE (02:04)
[2021-04-28 02:07] VITALS: BP 127/89; PULSE 76
== END 2021-04-28 02:08 | disposition home or self-care (01) ==
LOC: DL.ED 00:06
DX: R10.9 Unspecified abdominal pain (principal); G89.29 Other chronic pain; E66.9 Obesity, unspecified; Z86.16 Personal history of COVID-19; Z79.84 Long term (current) use of oral hypoglycemic drugs; Z88.0 Allergy status to penicillin; Z91.030 Bee allergy status; Z88.5 Allergy status to narcotic agent; Z88.6 Allergy status to analgesic agent; Z88.8 Allergy status to other drugs, medicaments and biological substances; Z90.49 Acquired absence of other specified parts of digestive tract; Z68.41 Body mass index [BMI] 40.0-44.9, adult
CPT/HCPCS: 80305-QW; 81001; 99284; A9270-GY

== ENCOUNTER 2021-04-28 07:50 | Emergency (ER) | payer MEDICAID ==
[2021-04-28 10:04] VITALS: BP 122/62; PULSE 68
[2021-04-28] MEDS ORDERED: Acetaminophen/oxyCODONE 325-5 MG Tab PO ONE (10:18)
--- NOTE | 2021-04-28 10:21 | EDM.PDOC ---
<Sesar Ahuja Kashif - Last Filed: 04/28/21 10:16> ED HPI GENERAL MEDICAL PROBLEM - General Chief Complaint: Genitourinary Problem Stated Complaint: PAIN IN KIDNEY Time Seen by Provider: 04/28/21 10:16 Source of Information: Reports: Patient - History of Present Illness INITIAL COMMENTS - FREE TEXT/NARRATIVE: Well know pt to the ED complaining of his loin pin hematuria exacerbation presenting as back and L flank pn 06/05. Pt states the pain has been going on for a week but have gotten much worse in the last 3 days. Pt has hx of chronic opiate dependance. Denies fever, chills, cp, db, abd pn, trauma, drugs, etoh. Onset: Gradual Duration: Day(s): Location: Reports: Back Quality: Reports: Ache Severity: Severe Improves with: Reports: None Worsens with: Reports: None Treatments BASE LOADER: Reports: NSAIDS - Related Data Allergies Allergy/AdvReac Type Severity Reaction Status Date / Time amoxicillin [Amoxicillin] Allergy Rash Verified 04/25/21 07:37 bee venom protein (honey bee) Allergy Cannot Verified 04/25/21 07:37 Remember butorphanol [From Stadol] Allergy Hallucinati Verified 04/25/21 07:37 ons haloperidol [From Haldol] Allergy Hallucinati Verified 04/25/21 07:37 ons ketorolac tromethamine Allergy Rash Verified 04/25/21 07:37 [From Toradol] metoclopramide [From Reglan] Allergy Agitation Verified 04/25/21 07:37 promethazine HCl Allergy Hallucinati Verified 04/25/21 07:37 [From Phenergan] ons tramadol HCl [From Ultram] Allergy Rash Verified 04/25/21 07:37 Home Meds: Home Meds Tamsulosin HCl [Flomax] 0.4 mg PO BID 05/30/20 [History] Ondansetron [Zofran] 8 mg PO TID PRN 06/21/20 [History] Acetaminophen [Tylenol] 650 mg PO Q4HR PRN 12/28/20 [History] metFORMIN HCl [Metformin ER Gastric] 1,000 mg PO BID 02/28/21 [History] Past Medical History - Past Health History Medical/Surgical History: Denies Medical/Surgical History HEENT History: Reports: None Cardiovascular History: Reports: High Cholesterol Respiratory History: Reports: None Gastrointestinal History: Reports: Cholelithiasis, Gastritis, GERD Other Gastrointestinal History: gallbladder pain Genitourinary History: Reports: Renal Calculus, Other (See Below) 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 hematuria syn drome Musculoskeletal History: Reports: None Neurological History: Reports: None Psychiatric History: Reports: Addiction Other Psychiatric History: Drug seeking behavior. 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 Hematologic History: Reports: None Immunologic History: Reports: None Oncologic (Cancer) History: Reports: None Dermatologic History: Reports: None - Infectious Disease History Infectious Disease History: Reports: Chicken Pox, Novel Coronavirus - Past Surgical History Head Surgeries/Procedures: Reports: None HEENT Surgical History: Reports: None Cardiovascular Surgical History: Reports: None GI Surgical History: Reports: Appendectomy, Cholecystectomy Male Surgical History: Reports: Circumcision Other Male Surgeries/Procedures: Has had kidney biopsy Musculoskeletal Surgical History: Reports: Other (See Below) Other Musculoskeletal Surgeries/Procedures:: left arm Social & Family History - Family History Family Medical History: No Pertinent Family History - Caffeine Use Caffeine Use: Reports: Coffee Caffeine Use Comment: Occasional - Living Situation & Occupation Living situation: Reports: Single, Alone Occupation: Employed ED ROS GENERAL - Review of Systems Review Of Systems: Comprehensive ROS is negative, except as noted in HPI. ED EXAM, RENAL/ - Physical Exam Exam: See Below General Appearance: Alert, WD/WN, No Apparent Distress Respiratory/Chest: No Respiratory Distress, Lungs Clear, Normal Breath Sounds, No Accessory Muscle Use, Chest Non-Tender Cardiovascular: Normal Peripheral Pulses, Regular Rate, Rhythm, No Edema, No Gallop, No JVD, No Murmur, No Rub GI/Abdominal: Soft, Non-Tender (Male) Exam: Deferred Rectal (Males) Exam: Deferred Back Exam: CVA Tenderness (L) Extremities: Normal Inspection, Normal Range of Motion, Non-Tender, Normal Capillary Refill, No Pedal Edema Skin Exam: Warm, Dry, Intact, Normal Color, No Rash Departure - Departure Time of Disposition: 10:20 Disposition: Home, Self-Care 01 Condition: Good Clinical Impression: Loin pain hematuria syndrome, History of Henoch-Schonlein purpura - Discharge Information *PRESCRIPTION DRUG MONITORING PROGRAM REVIEWED*: Not Applicable *COPY OF PRESCRIPTION DRUG MONITORING REPORT IN PATIENT NICO: Not Applicable Instructions: Hematuria, Adult Forms: ED Department Discharge Additional Instructions: Establish care with a PCP or pain clinic for management of your chronic condition Sepsis Event Note (ED) - Evaluation Sepsis Screening Result: No Definite Risk <Jovan Villaseñor - Last Filed: 04/28/21 10:32> Course - Vital Signs Last Recorded V/S: Last Vital Signs Temp 98.7 F 04/28/21 09:55 Pulse 68 04/28/21 09:55 Resp 16 04/28/21 09:55 BP 122/62 04/28/21 09:55 Pulse Ox 99 04/28/21 09:55 - Orders/Labs/Meds Meds: Medications Discontinued Medications Generic Name Dose Route Start Last Admin Trade Name Freq PRN Reason Stop Dose Admin Oxycodone/Acetaminophen 2 tab 04/28/21 10:18 Acetaminophen/Oxycodone 325-5 Mg Tab PO 04/28/21 10:19 ONETIME ONE Sepsis Event Note (ED) - Focused Exam Vital Signs: Vital Signs Temp Pulse Resp BP Pulse Ox 04/28/21 09:55 98.7 F 68 16 122/62 99
== END 2021-04-28 11:08 | disposition home or self-care (01) ==
LOC: DL.ED 07:50
DX: M54.5 Low back pain (principal); R31.9 Hematuria, unspecified; E11.9 Type 2 diabetes mellitus without complications; E66.9 Obesity, unspecified; Z68.41 Body mass index [BMI] 40.0-44.9, adult; Z86.16 Personal history of COVID-19; Z88.0 Allergy status to penicillin; Z91.030 Bee allergy status; Z88.8 Allergy status to other drugs, medicaments and biological substances; Z88.5 Allergy status to narcotic agent; Z79.84 Long term (current) use of oral hypoglycemic drugs; Z79.899 Other long term (current) drug therapy
CPT/HCPCS: 99283; A9270

== ENCOUNTER 2021-04-30 07:03 | Emergency (ER) | payer MEDICAID ==
--- NOTE | 2021-04-30 07:16 | EDM.PDOC ---
ED HPI GENERAL MEDICAL PROBLEM - General Chief Complaint: Genitourinary Problem Stated Complaint: DISCOMFORT IN KIDNEYS PASSING BLOOD Time Seen by Provider: 04/30/21 07:13 Source of Information: Reports: Patient, Old Records, RN, RN Notes Reviewed History Limitations: Reports: No Limitations - History of Present Illness INITIAL COMMENTS - FREE TEXT/NARRATIVE: Pt presents to ER with c/o severe B/L flank pain with nausea, and hematuria. 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 He has been to several nephrologists, urologist, [place], and [facility], and to pain management clinics. He continues to utilized the ER several times a month for break through pain episodes. He as been counselled repeatedly and claims that he is trying to manage his pain at home and through clinic, but cannot take the pain today. The medical executive committee is currently forming a treatment plan for the pt due to excessive use of the ER for the treatment of chronic pain. Duration: Chronic, Recurring Location: Reports: Other (Flank/) Quality: Reports: Same as Previous Episode Severity: Severe Improves with: Reports: None Worsens with: Reports: None Associated Symptoms: Reports: No Other Symptoms Flank Pain Score (Numeric/FACES): 10 - Related Data Allergies Allergy/AdvReac Type Severity Reaction Status Date / Time amoxicillin [Amoxicillin] Allergy Rash Verified 04/30/21 07:18 bee venom protein (honey bee) Allergy Cannot Verified 04/30/21 07:18 Remember butorphanol [From Stadol] Allergy Hallucinati Verified 04/30/21 07:18 ons haloperidol [From Haldol] Allergy Hallucinati Verified 04/30/21 07:18 ons ketorolac tromethamine Allergy Rash Verified 04/30/21 07:18 [From Toradol] metoclopramide [From Reglan] Allergy Agitation Verified 04/30/21 07:18 promethazine HCl Allergy Hallucinati Verified 04/30/21 07:18 [From Phenergan] ons tramadol HCl [From Ultram] Allergy Rash Verified 04/30/21 07:18 Home Meds: Home Meds Tamsulosin HCl [Flomax] 0.4 mg PO BID 05/30/20 [History] Ondansetron [Zofran] 8 mg PO TID PRN 06/21/20 [History] Acetaminophen [Tylenol] 650 mg PO Q4HR PRN 12/28/20 [History] metFORMIN HCl [Metformin ER Gastric] 1,000 mg PO BID 02/28/21 [History] Past Medical History - Past Health History Medical/Surgical History: Denies Medical/Surgical History HEENT History: Reports: None Cardiovascular History: Reports: High Cholesterol Respiratory History: Reports: None Gastrointestinal History: Reports: Cholelithiasis, Gastritis, GERD Other Gastrointestinal History: gallbladder pain Genitourinary History: Reports: Renal Calculus, Other (See Below) 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 Hematologic History: Reports: None Immunologic History: Reports: None Oncologic (Cancer) History: Reports: None Dermatologic History: Reports: None - Infectious Disease History Infectious Disease History: Reports: Chicken Pox, Novel Coronavirus - Past Surgical History Head Surgeries/Procedures: Reports: None HEENT Surgical History: Reports: None Cardiovascular Surgical History: Reports: None GI Surgical History: Reports: Appendectomy, Cholecystectomy Male Surgical History: Reports: Circumcision Other Male Surgeries/Procedures: Has had kidney biopsy Musculoskeletal Surgical History: Reports: Other (See Below) Other Musculoskeletal Surgeries/Procedures:: left arm Social & Family History - Family History Family Medical History: No Pertinent Family History - Caffeine Use Caffeine Use: Reports: Coffee Caffeine Use Comment: Occasional - Living Situation & Occupation Living situation: Reports: Single, Alone Occupation: Employed ED ROS GENERAL - Review of Systems Review Of Systems: Comprehensive ROS is negative, except as noted in HPI. ED EXAM, RENAL/ - Physical Exam Exam: See Below Exam Limited By: No Limitations General Appearance: Alert, No Apparent Distress, Obese Throat/Mouth: Normal Inspection Head: Atraumatic, Normocephalic Respiratory/Chest: No Respiratory Distress, Lungs Clear Cardiovascular: Regular Rate, Rhythm, No Edema GI/Abdominal: Normal Bowel Sounds, Soft, Tender (LUQ, LLQ). No: Guarding, Rigid, Rebound (Male) Exam: Deferred Rectal (Males) Exam: Deferred Back Exam: Full Range of Motion, CVA Tenderness (L). No: CVA Tenderness (R), Vertebral Tenderness Extremities: Normal Inspection Neurological: Alert, Oriented, No Motor/Sensory Deficits Psychiatric: Normal Mood Skin Exam: Warm, Dry, Intact, Normal Color, No Rash. No: Ecchymosis, Jaundice, Petechiae Course - Vital Signs Last Recorded V/S: Last Vital Signs Temp 97.7 F 04/30/21 07:15 Pulse 69 04/30/21 07:15 Resp 14 04/30/21 07:15 BP 132/82 04/30/21 07:15 Pulse Ox 97 04/30/21 07:15 - Orders/Labs/Meds Orders: Active Orders 24 hr Category Date Time Status HYDROmorphone [Dilaudid] Med 04/30/21 07:31 Once 2 mg IM ONETIME ONE - Re-Assessments/Exams Free Text/Narrative Re-Assessment/Exam: 04/30/21 07:32 Pt is again counseled that he must work with a clinic provider to manage his chronic condition(s) and pain through an appropriate clinic setting. Departure - Departure Time of Disposition: 08:00 Disposition: Home, Self-Care 01 Condition: Good Clinical Impression: Loin pain hematuria syndrome, History of Henoch-Schonlein purpura - Discharge Information *PRESCRIPTION DRUG MONITORING PROGRAM REVIEWED*: No *COPY OF PRESCRIPTION DRUG MONITORING REPORT IN PATIENT NICO: No Instructions: Hematuria, Adult Forms: ED Department Discharge Additional Instructions: Follow up in clinic for chronic disease and pain management. Sepsis Event Note (ED) - Focused Exam Vital Signs: Vital Signs Temp Pulse Resp BP Pulse Ox 04/30/21 07:15 97.7 F 69 14 132/82 97 - My Orders Last 24 Hours: My Active Orders 04/30/21 07:31 HYDROmorphone [Dilaudid] 2 mg IM ONETIME ONE - Assessment/Plan Last 24 Hours: My Active Orders 04/30/21 07:31 HYDROmorphone [Dilaudid] 2 mg IM ONETIME ONE
[2021-04-30 07:18] VITALS: BP 132/82; PULSE 69
[2021-04-30] MEDS ORDERED: HYDROmorphone 1 MG/ML Syringe IM ONE (07:31)
== END 2021-04-30 07:50 | disposition home or self-care (01) ==
LOC: DL.ED 07:03
DX: M54.5 Low back pain (principal); R31.9 Hematuria, unspecified; E11.9 Type 2 diabetes mellitus without complications; E78.00 Pure hypercholesterolemia, unspecified; E66.9 Obesity, unspecified; K21.9 Gastro-esophageal reflux disease without esophagitis; Z68.30 Body mass index [BMI] 30.0-30.9, adult; Z88.0 Allergy status to penicillin; Z91.030 Bee allergy status; Z88.5 Allergy status to narcotic agent; Z88.6 Allergy status to analgesic agent; Z79.84 Long term (current) use of oral hypoglycemic drugs; Z90.49 Acquired absence of other specified parts of digestive tract; Z87.2 Personal history of diseases of the skin and subcutaneous tissue
CPT/HCPCS: 96372; 99283; J1170

== ENCOUNTER 2021-05-03 08:16 | Emergency (ER) | payer MEDICAID ==
[2021-05-03 09:20] VITALS: BP 127/84; PULSE 66
--- NOTE | 2021-05-03 09:20 | EDM.PDOC ---
ED HPI GENERAL MEDICAL PROBLEM - General Chief Complaint: Flank Pain Stated Complaint: FLANK KIDNEY PAIN Time Seen by Provider: 05/03/21 09:20 Source of Information: Reports: Patient, RN Notes Reviewed - History of Present Illness INITIAL COMMENTS - FREE TEXT/NARRATIVE: 30 y/o M well known to the Er c/o L and R flank pn which he attributes to his loin pain hematuria. The pain is 7/10 and has been going on for weeks. Pt also states he has had nausea and has been taking his zofran. Denies fever, cough, chills, drugs, etoh, cp, db, abd pn, pelvic pn. - Related Data Allergies Allergy/AdvReac Type Severity Reaction Status Date / Time amoxicillin [Amoxicillin] Allergy Rash Verified 04/30/21 07:18 bee venom protein (honey bee) Allergy Cannot Verified 04/30/21 07:18 Remember butorphanol [From Stadol] Allergy Hallucinati Verified 04/30/21 07:18 ons haloperidol [From Haldol] Allergy Hallucinati Verified 04/30/21 07:18 ons ketorolac tromethamine Allergy Rash Verified 04/30/21 07:18 [From Toradol] metoclopramide [From Reglan] Allergy Agitation Verified 04/30/21 07:18 promethazine HCl Allergy Hallucinati Verified 04/30/21 07:18 [From Phenergan] ons tramadol HCl [From Ultram] Allergy Rash Verified 04/30/21 07:18 Home Meds: Home Meds Tamsulosin HCl [Flomax] 0.4 mg PO BID 05/30/20 [History] Ondansetron [Zofran] 8 mg PO TID PRN 06/21/20 [History] Acetaminophen [Tylenol] 650 mg PO Q4HR PRN 12/28/20 [History] metFORMIN HCl [Metformin ER Gastric] 1,000 mg PO BID 02/28/21 [History] Past Medical History - Past Health History Medical/Surgical History: Denies Medical/Surgical History HEENT History: Reports: None Cardiovascular History: Reports: High Cholesterol, Hypertension Respiratory History: Reports: None Gastrointestinal History: Reports: Cholelithiasis, Gastritis, GERD Other Gastrointestinal History: gallbladder pain Genitourinary History: Reports: Renal Calculus, Other (See Below) 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 Hematologic History: Reports: None Immunologic History: Reports: None Oncologic (Cancer) History: Reports: None Dermatologic History: Reports: None - Infectious Disease History Infectious Disease History: Reports: Chicken Pox, Novel Coronavirus - Past Surgical History Head Surgeries/Procedures: Reports: None HEENT Surgical History: Reports: None Cardiovascular Surgical History: Reports: None GI Surgical History: Reports: Appendectomy, Cholecystectomy Male Surgical History: Reports: Circumcision Other Male Surgeries/Procedures: Has had kidney biopsy Musculoskeletal Surgical History: Reports: Other (See Below) Other Musculoskeletal Surgeries/Procedures:: left arm Social & Family History - Family History Family Medical History: No Pertinent Family History - Caffeine Use Caffeine Use: Reports: Coffee, Soda Caffeine Use Comment: Occasional - Living Situation & Occupation Living situation: Reports: Single, Alone Occupation: Employed ED ROS GENERAL - Review of Systems Review Of Systems: Comprehensive ROS is negative, except as noted in HPI. ED EXAM, RENAL/ - Physical Exam Exam: See Below Exam Limited By: No Limitations General Appearance: Alert, No Apparent Distress Respiratory/Chest: No Respiratory Distress, Lungs Clear, Normal Breath Sounds, No Accessory Muscle Use, Chest Non-Tender Cardiovascular: Normal Peripheral Pulses, Regular Rate, Rhythm, No Edema, No Gallop, No JVD, No Murmur, No Rub GI/Abdominal: Soft, Non-Tender Back Exam: Normal Inspection, Full Range of Motion, CVA Tenderness (L), CVA Tenderness (R) Extremities: Normal Inspection, Normal Range of Motion, Non-Tender, Normal Capillary Refill, No Pedal Edema Skin Exam: Warm, Dry, Intact, Normal Color, No Rash Course - Vital Signs Last Recorded V/S: Last Vital Signs Temp 98.4 F 05/03/21 09:13 Pulse 66 05/03/21 09:13 Resp 20 05/03/21 09:13 BP 127/84 05/03/21 09:13 Pulse Ox 98 05/03/21 09:13 - Orders/Labs/Meds Meds: Medications Discontinued Medications Generic Name Dose Route Start Last Admin Trade Name Freq PRN Reason Stop Dose Admin Oxycodone/Acetaminophen 2 tab 05/03/21 09:23 Acetaminophen/Oxycodone 325-5 Mg Tab PO 05/03/21 09:24 ONETIME ONE Departure - Departure Time of Disposition: 09:24 Disposition: Home, Self-Care 01 Condition: Good Clinical Impression: Loin pain hematuria syndrome - Discharge Information *PRESCRIPTION DRUG MONITORING PROGRAM REVIEWED*: Not Applicable *COPY OF PRESCRIPTION DRUG MONITORING REPORT IN PATIENT NICO: Not Applicable Instructions: Managing Chronic Back Pain, Flank Pain, Adult, [id number] Forms: ED Department Discharge Additional Instructions: Follow up with your clinic provider for chronic pain management. Sepsis Event Note (ED) - Focused Exam Vital Signs: Vital Signs Temp Pulse Resp BP Pulse Ox 05/03/21 09:13 98.4 F 66 20 127/84 98
[2021-05-03] MEDS ORDERED: Acetaminophen/oxyCODONE 325-5 MG Tab PO ONE (09:23)
== END 2021-05-03 09:45 | disposition home or self-care (01) ==
LOC: DL.ED 08:16
DX: M54.5 Low back pain (principal); R31.9 Hematuria, unspecified; E78.00 Pure hypercholesterolemia, unspecified; I10 Essential (primary) hypertension; E11.9 Type 2 diabetes mellitus without complications; Z68.30 Body mass index [BMI] 30.0-30.9, adult; Z88.0 Allergy status to penicillin; Z91.030 Bee allergy status; Z88.5 Allergy status to narcotic agent; Z88.6 Allergy status to analgesic agent; Z86.16 Personal history of COVID-19; Z79.84 Long term (current) use of oral hypoglycemic drugs; Z79.899 Other long term (current) drug therapy
CPT/HCPCS: 99283; A9270

== ENCOUNTER 2021-05-07 15:55 | Emergency (ER) | payer MEDICAID ==
[2021-05-07 16:17] VITALS: BP 124/78; PULSE 76
[2021-05-07] MEDS ORDERED: Acetaminophen/oxyCODONE 325-5 MG Tab PO ONE (16:36)
--- NOTE | 2021-05-07 16:41 | EDM.PDOC ---
ED HPI GENERAL MEDICAL PROBLEM - General Chief Complaint: Flank Pain Stated Complaint: KIDNEY PAIN Time Seen by Provider: 05/07/21 16:36 Source of Information: Reports: Patient History Limitations: Reports: No Limitations - History of Present Illness INITIAL COMMENTS - FREE TEXT/NARRATIVE: 30 y/o M c/o 10/10 flank pain. Pt has loin pain hematuria and believes he is having a flare up. The pain has been going on for 1.5 weeks. The pain is 10/10 non radiating, sharp and constant. Pt is well known to the hospital. Denies fever, chills, cp, db, abd pn, drugs, etoh. Duration: Week(s): Location: Reports: Back Bilateral Flank Pain Score (Numeric/FACES): 5 - Related Data Allergies Allergy/AdvReac Type Severity Reaction Status Date / Time amoxicillin [Amoxicillin] Allergy Rash Verified 05/07/21 16:14 bee venom protein (honey bee) Allergy Cannot Verified 05/07/21 16:14 Remember butorphanol [From Stadol] Allergy Hallucinati Verified 05/07/21 16:14 ons haloperidol [From Haldol] Allergy Hallucinati Verified 05/07/21 16:14 ons ketorolac tromethamine Allergy Rash Verified 05/07/21 16:14 [From Toradol] metoclopramide [From Reglan] Allergy Agitation Verified 05/07/21 16:14 promethazine HCl Allergy Hallucinati Verified 05/07/21 16:14 [From Phenergan] ons tramadol HCl [From Ultram] Allergy Rash Verified 05/07/21 16:14 Home Meds: Home Meds Tamsulosin HCl [Flomax] 0.4 mg PO BID 05/30/20 [History] Ondansetron [Zofran] 8 mg PO TID PRN 06/21/20 [History] Acetaminophen [Tylenol] 650 mg PO Q4HR PRN 12/28/20 [History] metFORMIN HCl [Metformin ER Gastric] 1,000 mg PO BID 02/28/21 [History] Past Medical History - Past Health History Medical/Surgical History: Denies Medical/Surgical History HEENT History: Reports: None Cardiovascular History: Reports: High Cholesterol, Hypertension Respiratory History: Reports: None Gastrointestinal History: Reports: Cholelithiasis, Gastritis, GERD Other Gastrointestinal History: gallbladder pain Genitourinary History: Reports: Renal Calculus, Other (See Below) 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 Hematologic History: Reports: None Immunologic History: Reports: None Oncologic (Cancer) History: Reports: None Dermatologic History: Reports: None - Infectious Disease History Infectious Disease History: Reports: Chicken Pox, Novel Coronavirus - Past Surgical History Head Surgeries/Procedures: Reports: None HEENT Surgical History: Reports: None Cardiovascular Surgical History: Reports: None GI Surgical History: Reports: Appendectomy, Cholecystectomy Male Surgical History: Reports: Circumcision Other Male Surgeries/Procedures: Has had kidney biopsy Musculoskeletal Surgical History: Reports: Other (See Below) Other Musculoskeletal Surgeries/Procedures:: left arm Social & Family History - Family History Family Medical History: No Pertinent Family History - Caffeine Use Caffeine Use: Reports: Coffee, Soda Caffeine Use Comment: Occasional - Recreational Drug Use Recreational Drug Use: Yes Recreational Drug Type: Reports: Marijuana/Hashish - Living Situation & Occupation Living situation: Reports: Single, Alone Occupation: Employed ED ROS GENERAL - Review of Systems Review Of Systems: Comprehensive ROS is negative, except as noted in HPI. ED EXAM, RENAL/ - Physical Exam Exam: See Below Exam Limited By: No Limitations General Appearance: Alert, No Apparent Distress Respiratory/Chest: No Respiratory Distress, Lungs Clear, Normal Breath Sounds, No Accessory Muscle Use, Chest Non-Tender Cardiovascular: Normal Peripheral Pulses, Regular Rate, Rhythm, No Edema, No Gallop, No JVD, No Murmur, No Rub GI/Abdominal: Soft, Non-Tender (Male) Exam: Deferred Rectal (Males) Exam: Deferred Back Exam: Other (tender to palpation L flank) Extremities: Normal Inspection, Normal Range of Motion, Non-Tender, Normal Capillary Refill, No Pedal Edema Neurological: Alert, Oriented, Normal Gait Course - Vital Signs Last Recorded V/S: Last Vital Signs Temp 97.1 F 05/07/21 16:15 Pulse 76 05/07/21 16:15 Resp 16 05/07/21 16:15 BP 124/78 05/07/21 16:15 Pulse Ox 97 09/11/21 16:15 Departure - Departure Time of Disposition: 16:41 Disposition: Home, Self-Care 01 Condition: Good Clinical Impression: Loin pain hematuria syndrome - Discharge Information *PRESCRIPTION DRUG MONITORING PROGRAM REVIEWED*: Not Applicable *COPY OF PRESCRIPTION DRUG MONITORING REPORT IN PATIENT NICO: Not Applicable Instructions: Flank Pain, Adult, [id number] Additional Instructions: Establish care with a clinic provider to manage your chronic pain Sepsis Event Note (ED) - Focused Exam Vital Signs: Vital Signs Temp Pulse Resp BP Pulse Ox 05/07/21 16:15 97.1 F 76 16 124/78 97
== END 2021-05-07 16:56 | disposition home or self-care (01) ==
LOC: DL.ED 15:55
DX: M54.5 Low back pain (principal); R31.9 Hematuria, unspecified; I10 Essential (primary) hypertension; E11.9 Type 2 diabetes mellitus without complications; E66.9 Obesity, unspecified; Z68.42 Body mass index [BMI] 45.0-49.9, adult; Z86.16 Personal history of COVID-19; Z88.8 Allergy status to other drugs, medicaments and biological substances; Z88.0 Allergy status to penicillin; Z91.030 Bee allergy status; Z88.5 Allergy status to narcotic agent; Z79.84 Long term (current) use of oral hypoglycemic drugs; Z79.899 Other long term (current) drug therapy
CPT/HCPCS: 99283; A9270

== ENCOUNTER 2021-05-08 09:27 | Emergency (ER) | payer MEDICAID ==
[2021-05-08 09:47] VITALS: BP 130/76; PULSE 60
[2021-05-08] MEDS ORDERED: Sodium Chloride 0.9% 10 ML Syringe FLUSH PRN (09:48)
[2021-05-08] MEDS ORDERED: Ondansetron 4 MG/2 ML SDV IV ONE (09:48)
[2021-05-08] MEDS ORDERED: HYDROmorphone 1 MG/ML Syringe IVPUSH ONE (09:48)
[2021-05-08] MEDS ORDERED: Sodium Chloride 0.9% 1,000 ML IV ONE (09:48)
[2021-05-08 10:49] LABS: ANION GAP 14.3 mEq/L (7-13); CHLORIDE,CL 105 mmol/L (98-107); SODIUM,NA 140 mmol/L (136-145)
[2021-05-08 10:50] LABS: AMPHETAMINES,URINE NEGATIVE (NEGATIVE); BARBITURATES,URINE NEGATIVE (NEGATIVE); BENZODIAZEPINE,URINE NEGATIVE (NEGATIVE); MDMA (ECSTASY), URINE NEGATIVE (NEGATIVE); METHADONE,URINE NEGATIVE (NEGATIVE); METHAMPHETAMINES,URINE NEGATIVE (NEGATIVE); OPIATES,URINE NEGATIVE (NEGATIVE); OXYCODONE,URINE POSITIVE (NEGATIVE); PHENCYCLIDINE,URINE NEGATIVE (NEGATIVE); TCA,URINE NEGATIVE (NEGATIVE)
[2021-05-08 10:53] LABS: PTT,PARTIAL THROMBOPLSTIN TIME 27.4 SEC (22.0-34.0)
[2021-05-08] MEDS ORDERED: Acetaminophen/oxyCODONE 325-5 MG Tab PO ONE (11:00)
--- NOTE | 2021-05-26 07:37 | EDM.PDOC ---
Scribed by Dian Mendes 05/08/21 0950 for Jovan Villaseñor MD ED HPI GENERAL MEDICAL PROBLEM - General Chief Complaint: Back Pain or Injury Stated Complaint: PASSING BLOOD AND DISCOMFORT BLACK STOOL Time Seen by Provider: 05/08/21 09:43 Source of Information: Reports: Patient, RN, RN Notes Reviewed History Limitations: Reports: No Limitations - History of Present Illness INITIAL COMMENTS - FREE TEXT/NARRATIVE: Patient presents to ED by POV with complaint of lower abdominal pain, black stools, and chronic flank pain. Onset: Gradual Duration: Getting Worse Location: Reports: Abdomen, Other (flank) Quality: Reports: Ache Severity: Severe Improves with: Reports: None Worsens with: Reports: None Associated Symptoms: Reports: No Other Symptoms Lower Abdomen Pain Score (Numeric/FACES): 8 - Related Data Allergies Allergy/AdvReac Type Severity Reaction Status Date / Time amoxicillin [Amoxicillin] Allergy Rash Verified 05/08/21 09:44 bee venom protein (honey bee) Allergy Cannot Verified 05/08/21 09:44 Remember butorphanol [From Stadol] Allergy Hallucinati Verified 05/08/21 09:44 ons haloperidol [From Haldol] Allergy Hallucinati Verified 05/08/21 09:44 ons ketorolac tromethamine Allergy Rash Verified 05/08/21 09:44 [From Toradol] metoclopramide [From Reglan] Allergy Agitation Verified 05/08/21 09:44 promethazine HCl Allergy Hallucinati Verified 05/08/21 09:44 [From Phenergan] ons tramadol HCl [From Ultram] Allergy Rash Verified 05/08/21 09:44 Home Meds: Home Meds Tamsulosin HCl [Flomax] 0.4 mg PO BID 05/30/20 [History] Ondansetron [Zofran] 8 mg PO TID PRN 06/21/20 [History] Acetaminophen [Tylenol] 650 mg PO Q4HR PRN 12/28/20 [History] metFORMIN HCl [Metformin ER Gastric] 1,000 mg PO BID 02/28/21 [History] Past Medical History - Past Health History Medical/Surgical History: Denies Medical/Surgical History HEENT History: Reports: None Cardiovascular History: Reports: High Cholesterol, Hypertension Respiratory History: Reports: None Gastrointestinal History: Reports: Cholelithiasis, Gastritis, GERD Other Gastrointestinal History: gallbladder pain Genitourinary History: Reports: Renal Calculus, Other (See Below) 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 Hematologic History: Reports: None Immunologic History: Reports: None Oncologic (Cancer) History: Reports: None Dermatologic History: Reports: None - Infectious Disease History Infectious Disease History: Reports: Chicken Pox, Novel Coronavirus - Past Surgical History Head Surgeries/Procedures: Reports: None HEENT Surgical History: Reports: None Cardiovascular Surgical History: Reports: None GI Surgical History: Reports: Appendectomy, Cholecystectomy Male Surgical History: Reports: Circumcision Other Male Surgeries/Procedures: Has had kidney biopsy Musculoskeletal Surgical History: Reports: Other (See Below) Other Musculoskeletal Surgeries/Procedures:: left arm Social & Family History - Family History Family Medical History: No Pertinent Family History - Caffeine Use Caffeine Use: Reports: Coffee, Soda Caffeine Use Comment: Occasional - Living Situation & Occupation Living situation: Reports: Single, Alone Occupation: Employed ED ROS GENERAL - Review of Systems Review Of Systems: Comprehensive ROS is negative, except as noted in HPI. ED EXAM,LOWER BACK PAIN/INJURY - Physical Exam Exam: See Below Exam Limited By: No Limitations General Appearance: Alert, No Apparent Distress, Obese Eye Exam: Bilateral Eye: EOMI, Normal Inspection, PERRL Nose: Normal Inspection, No Blood Throat/Mouth: Normal Inspection, Normal Voice, No Airway Compromise Head: Atraumatic, Normocephalic Neck: Normal Inspection Respiratory/Chest: No Respiratory Distress, Lungs Clear Cardiovascular: Regular Rate, Rhythm, No Edema GI/Abdominal: Normal Bowel Sounds, Soft, No Distention, Tender (Epigastric, LLU, LLQ). No: Guarding, Rigid, Rebound (Male) Exam: Deferred Back Exam: Full Range of Motion, CVA Tenderness (L). No: CVA Tenderness (R), Vertebral Tenderness Extremities: Normal Inspection Neurological: Alert, No Motor/Sensory Deficits, Oriented x 3 Psychiatric: Depressed Mood, Flat Affect Skin Exam: Warm, Dry, Intact, Normal Color, No Rash. No: Ecchymosis, Jaundice, Petechiae Course - Vital Signs Last Recorded V/S: Last Vital Signs Temp 98.1 F 05/08/21 09:45 Pulse 60 05/08/21 09:45 Resp 18 05/08/21 09:45 BP 130/76 05/08/21 09:45 Pulse Ox 98 05/08/21 09:45 - Orders/Labs/Meds Orders: Active Orders 24 hr Category Date Time Status Peripheral IV Care [RC] . DIRECTED Care 05/08/21 09:48 Active Sodium Chloride 0.9% [Saline Flush] Med 05/08/21 09:48 Active 10 ml FLUSH ASDIRECTED PRN Peripheral IV Insertion Adult [OM.PC] Stat Oth 05/08/21 09:47 Ordered Medication Orders Sodium Chloride (Sodium Chloride 0.9% 10 Ml Syringe) 10 ml FLUSH ASDIRECTED PRN PRN Reason: Keep Vein Open Last Admin: 05/08/21 10:20 Dose: 10 ml Documented by: MARGARITA Labs: Laboratory Tests 05/08/21 05/08/21 05/08/21 Range/Units 09:47 09:47 10:12 WBC 8.6 (5.0-10.0) 10^3/uL RBC 5.57 (4.6-6.2) 10^6/uL Hgb 16.4 (14.0-18.0) g/dL Hct 47.6 (40.0-54.0) % MCV 85.5 (80-100) fL MCH 29.4 (27.0-34.0) pg MCHC 34.5 (33.0-35.0) g/dL Plt Count 307 (150-450) 10^3/uL Neut % (Auto) 64.5 (42.2-75.2) % Lymph % (Auto) 26.7 (20.5-50.1) % Tillman % (Auto) 6.5 (2-8) % Eos % (Auto) 2.1 (1.0-3.0) % Baso % (Auto) 0.2 (0.0-1.0) % PT (9.0-12.0) SEC INR (0.9-1.2) APTT (22.0-34.0) SEC Sodium (136-145) mmol/L Potassium (3.5-5.1) mmol/L Chloride (98-107) mmol/L Carbon Dioxide (21-32) mmol/L Anion Gap (7-13) mEq/L BUN (7-18) mg/dL Creatinine (0.70-1.30) mg/dL Est Cr Clr Drug Dosing mL/min Estimated GFR (MDRD) BUN/Creatinine Ratio (No establ ref range) Glucose (70-99) mg/dL Calcium (8.5-10.1) mg/dL Total Bilirubin (0.2-1.0) mg/dL AST (15-37) U/L ALT (16-63) U/L Alkaline Phosphatase (46-116) U/L Total Protein (6.4-8.2) g/dL Albumin (3.4-5.0) g/dL Globulin Albumin/Globulin Ratio Amylase (25-115) U/L Lipase (73-393) U/L Urine Color Yellow (YELLOW) Urine Appearance Cloudy (CLEAR) Urine pH 6.0 (5.0-9.0) Ur Specific [place] 1.025 (1.005-1.030) Urine Protein Negative (NEGATIVE) Urine Glucose (UA) Negative (NEGATIVE) Urine Ketones Negative (NEGATIVE) Urine Occult Blood Large H (NEGATIVE) Urine Nitrite Negative (NEGATIVE) Urine Bilirubin Negative (NEGATIVE) Urine Urobilinogen 0.2 (0.2-1.0) mg/dL Ur Leukocyte Esterase Negative (NEGATIVE) Urine RBC >100 H (0-5) /HPF Urine WBC 0-5 (0-5/HPF) /HPF Ur Epithelial Cells Occasional (NOT SEEN) /HPF Amorphous Sediment Rare (NOT SEEN) /HPF Urine Bacteria Rare (0-FEW/HPF) /HPF Urine Mucus Few H (NOT SEEN) /LPF Urine Opiates Screen Negative (NEGATIVE) Ur Oxycodone Screen Positive H (NEGATIVE) Urine Methadone Screen Negative (NEGATIVE) Ur Barbiturates Screen Negative (NEGATIVE) U Tricyclic Antidepress Negative (NEGATIVE) Ur Phencyclidine Scrn Negative (NEGATIVE) Ur Amphetamine Screen Negative (NEGATIVE) U Methamphetamines Scrn Negative (NEGATIVE) Urine MDMA Screen Negative (NEGATIVE) U Benzodiazepines Scrn Negative (NEGATIVE) Urine Cocaine Screen Negative (NEGATIVE) U Marijuana (THC) Screen Positive H (NEGATIVE) 05/08/21 05/08/21 Range/Units 10:12 10:12 WBC (5.0-10.0) 10^3/uL RBC (4.6-6.2) 10^6/uL Hgb (14.0-18.0) g/dL Hct (40.0-54.0) % MCV (80-100) fL MCH (27.0-34.0) pg MCHC (33.0-35.0) g/dL Plt Count (150-450) 10^3/uL Neut % (Auto) (42.2-75.2) % Lymph % (Auto) (20.5-50.1) % Tillman % (Auto) (2-8) % Eos % (Auto) (1.0-3.0) % Baso % (Auto) (0.0-1.0) % PT 9.7 (9.0-12.0) SEC INR 1.0 (0.9-1.2) APTT 27.4 (22.0-34.0) SEC Sodium 140 D (136-145) mmol/L Potassium 4.3 (3.5-5.1) mmol/L Chloride 105 (98-107) mmol/L Carbon Dioxide 25 (21-32) mmol/L Anion Gap 14.3 H (7-13) mEq/L BUN 11 (7-18) mg/dL Creatinine 0.83 (0.70-1.30) mg/dL Est Cr Clr Drug Dosing 144.14 mL/min Estimated GFR (MDRD) > 60 BUN/Creatinine Ratio 13.3 (No establ ref range) Glucose 97 (70-99) mg/dL Calcium 8.6 (8.5-10.1) mg/dL Total Bilirubin 0.8 (0.2-1.0) mg/dL AST 19 (15-37) U/L ALT 39 (16-63) U/L Alkaline Phosphatase 87 (46-116) U/L Total Protein 7.8 (6.4-8.2) g/dL Albumin 4.1 (3.4-5.0) g/dL Globulin 3.7 Albumin/Globulin Ratio 1.1 Amylase 28 (25-115) U/L Lipase 51 L (73-393) U/L Urine Color (YELLOW) Urine Appearance (CLEAR) Urine pH (5.0-9.0) Ur Specific [place] (1.005-1.030) Urine Protein (NEGATIVE) Urine Glucose (UA) (NEGATIVE) Urine Ketones (NEGATIVE) Urine Occult Blood (NEGATIVE) Urine Nitrite (NEGATIVE) Urine Bilirubin (NEGATIVE) Urine Urobilinogen (0.2-1.0) mg/dL Ur Leukocyte Esterase (NEGATIVE) Urine RBC (0-5) /HPF Urine WBC (0-5/HPF) /HPF Ur Epithelial Cells (NOT SEEN) /HPF Amorphous Sediment (NOT SEEN) /HPF Urine Bacteria (0-FEW/HPF) /HPF Urine Mucus (NOT SEEN) /LPF Urine Opiates Screen (NEGATIVE) Ur Oxycodone Screen (NEGATIVE) Urine Methadone Screen (NEGATIVE) Ur Barbiturates Screen (NEGATIVE) U Tricyclic Antidepress (NEGATIVE) Ur Phencyclidine Scrn (NEGATIVE) Ur Amphetamine Screen (NEGATIVE) U Methamphetamines Scrn (NEGATIVE) Urine MDMA Screen (NEGATIVE) U Benzodiazepines Scrn (NEGATIVE) Urine Cocaine Screen (NEGATIVE) U Marijuana (THC) Screen (NEGATIVE) Meds: Medications Generic Name Dose Route Start Last Admin Trade Name Freq PRN Reason Stop Dose Admin Sodium Chloride 10 ml 05/08/21 09:48 05/08/21 10:20 Sodium Chloride 0.9% 10 Ml Syringe FLUSH 10 ml ASDIRECTED PRN Administration Keep Vein Open Discontinued Medications Generic Name Dose Route Start Last Admin Trade Name Freq PRN Reason Stop Dose Admin Hydromorphone HCl 1 mg 05/08/21 09:48 05/08/21 10:17 Hydromorphone 1 Mg/Ml Syringe IVPUSH 05/08/21 09:49 1 mg ONETIME ONE Administration Sodium Chloride 1,000 mls @ 999 mls/hr 05/08/21 09:48 05/08/21 10:17 Normal Saline IV 05/08/21 10:48 999 mls/hr .BOLUS ONE Administration Ondansetron HCl 4 mg 05/08/21 09:48 05/08/21 10:17 Ondansetron 4 Mg/2 Ml Sdv IV 05/08/21 09:49 4 mg ONETIME ONE Administration Departure - Departure Time of Disposition: 10:57 Disposition: Home, Self-Care 01 Condition: Good Clinical Impression: Loin pain hematuria syndrome, History of Henoch-Schonlein purpura - Discharge Information *PRESCRIPTION DRUG MONITORING PROGRAM REVIEWED*: No *COPY OF PRESCRIPTION DRUG MONITORING REPORT IN PATIENT NICO: No Instructions: Hematuria, Adult, Flank Pain, Adult, [id number] Forms: ED Department Discharge Additional Instructions: Follow up in clinic as planned. Sepsis Event Note (ED) - Focused Exam Vital Signs: Vital Signs Temp Pulse Resp BP Pulse Ox 05/08/21 09:45 98.1 F 60 18 130/76 98 - My Orders Last 24 Hours: My Active Orders 05/08/21 09:47 Peripheral IV Insertion Adult [OM.PC] Stat 05/08/21 09:48 Peripheral IV Care [RC] . DIRECTED Sodium Chloride 0.9% [Saline Flush] 10 ml FLUSH ASDIRECTED PRN - Assessment/Plan Last 24 Hours: My Active Orders 05/08/21 09:47 Peripheral IV Insertion Adult [OM.PC] Stat 05/08/21 09:48 Peripheral IV Care [RC] . DIRECTED Sodium Chloride 0.9% [Saline Flush] 10 ml FLUSH ASDIRECTED PRN I have read and agree with the documentation that has been completed regarding this visit. By signing this record, I attest that the documentation was completed in my physical presence and is an accurate record of the encounter.
== END 2021-05-08 11:05 | disposition home or self-care (01) ==
LOC: DL.ED 09:27
DX: M54.5 Low back pain (principal); R31.9 Hematuria, unspecified; E78.00 Pure hypercholesterolemia, unspecified; I10 Essential (primary) hypertension; E11.9 Type 2 diabetes mellitus without complications; E66.9 Obesity, unspecified; Z68.41 Body mass index [BMI] 40.0-44.9, adult; Z88.0 Allergy status to penicillin; Z91.030 Bee allergy status; Z88.5 Allergy status to narcotic agent; Z88.6 Allergy status to analgesic agent; Z87.2 Personal history of diseases of the skin and subcutaneous tissue
CPT/HCPCS: 36415; 80053; 80305; 81001; 82150; 82272; 83690; 85025; 85610; 85730; 96374; 96375; 99283; 99284; A9270; J1170; J2405; J7030

== ENCOUNTER 2021-05-13 08:08 | Emergency (ER) | payer MEDICAID ==
[2021-05-13 08:36] VITALS: BP 139/93; PULSE 58
--- NOTE | 2021-05-13 09:43 | EDM.PDOC ---
ED HPI GENERAL MEDICAL PROBLEM - General Stated Complaint: FLANK PAIN Time Seen by Provider: 05/13/21 09:40 Left Flank Pain Score (Numeric/FACES): 8 - Related Data Allergies Allergy/AdvReac Type Severity Reaction Status Date / Time amoxicillin [Amoxicillin] Allergy Rash Verified 05/13/21 08:36 bee venom protein (honey bee) Allergy Cannot Verified 05/13/21 08:36 Remember butorphanol [From Stadol] Allergy Hallucinati Verified 05/13/21 08:36 ons haloperidol [From Haldol] Allergy Hallucinati Verified 05/13/21 08:36 ons ketorolac tromethamine Allergy Rash Verified 05/13/21 08:36 [From Toradol] metoclopramide [From Reglan] Allergy Agitation Verified 05/13/21 08:36 promethazine HCl Allergy Hallucinati Verified 05/13/21 08:36 [From Phenergan] ons tramadol HCl [From Ultram] Allergy Rash Verified 05/13/21 08:36 Home Meds: Home Meds Tamsulosin HCl [Flomax] 0.4 mg PO BID 05/30/20 [History] Ondansetron [Zofran] 8 mg PO TID PRN 06/21/20 [History] Acetaminophen [Tylenol] 650 mg PO Q4HR PRN 12/28/20 [History] metFORMIN HCl [Metformin ER Gastric] 1,000 mg PO BID 02/28/21 [History] Past Medical History - Past Health History Medical/Surgical History: Denies Medical/Surgical History HEENT History: Reports: None Cardiovascular History: Reports: High Cholesterol, Hypertension Respiratory History: Reports: None Gastrointestinal History: Reports: Cholelithiasis, Gastritis, GERD Other Gastrointestinal History: gallbladder pain Genitourinary History: Reports: Renal Calculus, Other (See Below) 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 Hematologic History: Reports: None Immunologic History: Reports: None Oncologic (Cancer) History: Reports: None Dermatologic History: Reports: None - Infectious Disease History Infectious Disease History: Reports: Chicken Pox, Novel Coronavirus - Past Surgical History Head Surgeries/Procedures: Reports: None HEENT Surgical History: Reports: None Cardiovascular Surgical History: Reports: None GI Surgical History: Reports: Appendectomy, Cholecystectomy Male Surgical History: Reports: Circumcision Other Male Surgeries/Procedures: Has had kidney biopsy Musculoskeletal Surgical History: Reports: Other (See Below) Other Musculoskeletal Surgeries/Procedures:: left arm Social & Family History - Family History Family Medical History: No Pertinent Family History - Tobacco Use Tobacco Use Status *Q: Never Tobacco User Second Hand Smoke Exposure: No - Caffeine Use Caffeine Use: Reports: Coffee, Soda Caffeine Use Comment: Occasional - Recreational Drug Use Recreational Drug Type: Reports: Marijuana/Hashish Other Recreational Drug Type: has a card - Living Situation & Occupation Living situation: Reports: Single, Alone Occupation: Employed ED ROS GENERAL - Review of Systems Review Of Systems: Unable To Obtain Reason Not Obtained: Patient left prior to being seen by provider ED EXAM, RENAL/ - Physical Exam Exam: Not Obtained Course - Vital Signs Last Recorded V/S: Last Vital Signs Temp 96.9 F 05/13/21 08:31 Pulse 58 L 05/13/21 08:31 Resp 16 05/13/21 08:31 BP 139/93 H 05/13/21 08:31 Pulse Ox 98 05/13/21 08:31 Departure - Departure Time of Disposition: 09:45 Disposition: Against Medical Advice 07 Clinical Impression: Patient left without being seen - Discharge Information Care Plan Goals: The patient left without being seen by a provider. Sepsis Event Note (ED) - Evaluation Sepsis Screening Result: No Definite Risk - Focused Exam Vital Signs: Vital Signs Temp Pulse Resp BP Pulse Ox 05/13/21 08:31 96.9 F 58 L 16 139/93 H 98
== END 2021-05-13 09:55 | disposition left against medical advice (07) ==
LOC: DL.ED 08:08
DX: R10.9 Unspecified abdominal pain (principal); I10 Essential (primary) hypertension; E11.9 Type 2 diabetes mellitus without complications; E66.9 Obesity, unspecified; Z88.0 Allergy status to penicillin; Z91.030 Bee allergy status; Z88.8 Allergy status to other drugs, medicaments and biological substances; Z88.5 Allergy status to narcotic agent; Z79.899 Other long term (current) drug therapy; Z86.16 Personal history of COVID-19; Z53.21 Procedure and treatment not carried out due to patient leaving prior to being seen by health care provider

== ENCOUNTER 2021-05-17 08:52 | Emergency (ER) | payer MEDICAID | END 2021-05-17 10:13 | disposition left against medical advice (07) | LOC: DL.ED 08:52 | DX: Z53.21 Procedure and treatment not carried out due to patient leaving prior to being seen by health care provider (principal) ==

== ENCOUNTER 2021-05-23 08:54 | Emergency (ER) | payer MEDICAID ==
[2021-05-23 09:07] VITALS: BP 124/84; PULSE 62
--- NOTE | 2021-05-23 09:22 | EDM.PDOC ---
ED HPI GENERAL MEDICAL PROBLEM - General Chief Complaint: Flank Pain Stated Complaint: FLANK PAIN Time Seen by Provider: 05/23/21 09:17 Source of Information: Reports: Patient History Limitations: Reports: No Limitations - History of Present Illness INITIAL COMMENTS - FREE TEXT/NARRATIVE: This 31 yo male patient reports to the ED due to flank pain. When asked what brings him in today, the patient responded "the same shit". The patient was asked if he had received a letter regarding frequent visits for pain management from our hospital. The patient reports he did not get the letter. The patient was given a copy of the letter to review. The patient was advised he would be given a chance to review the letter and I would return to discuss options. Upon returning to the patient's room, the patient reports he does understand the letter. The patient was offered a dose of Toradol, but the patient declined. The patient reports he did take Tylenol prior to coming to the ED with no symptom relief. Onset: Unknown/Unsure Duration: Constant Location: Reports: Abdomen Quality: Reports: Ache Severity: Moderate Improves with: Reports: None Worsens with: Reports: None Context: Reports: Other Associated Symptoms: Reports: No Other Symptoms Treatments BODY DESIGNER: Reports: Acetaminophen Left Flank Pain Score (Numeric/FACES): 7 - Related Data Allergies Allergy/AdvReac Type Severity Reaction Status Date / Time amoxicillin [Amoxicillin] Allergy Rash Verified 05/23/21 09:11 bee venom protein (honey bee) Allergy Cannot Verified 05/23/21 09:11 Remember butorphanol [From Stadol] Allergy Hallucinati Verified 05/23/21 09:11 ons haloperidol [From Haldol] Allergy Hallucinati Verified 05/23/21 09:11 ons ketorolac tromethamine Allergy Rash Verified 05/23/21 09:11 [From Toradol] metoclopramide [From Reglan] Allergy Agitation Verified 05/23/21 09:11 promethazine HCl Allergy Hallucinati Verified 05/23/21 09:11 [From Phenergan] ons tramadol HCl [From Ultram] Allergy Rash Verified 05/23/21 09:11 Home Meds: Home Meds Tamsulosin HCl [Flomax] 0.4 mg PO BID 05/30/20 [History] Ondansetron [Zofran] 8 mg PO TID PRN 10/26/20 [History] Acetaminophen [Tylenol] 650 mg PO Q4HR PRN 12/28/20 [History] metFORMIN HCl [Metformin ER Gastric] 1,000 mg PO BID 02/28/21 [History] Past Medical History - Past Health History Medical/Surgical History: Denies Medical/Surgical History HEENT History: Reports: None Cardiovascular History: Reports: High Cholesterol, Hypertension Respiratory History: Reports: None Gastrointestinal History: Reports: Cholelithiasis, Gastritis, GERD Other Gastrointestinal History: gallbladder pain Genitourinary History: Reports: Renal Calculus, Other (See Below) 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 Hematologic History: Reports: None Immunologic History: Reports: None Oncologic (Cancer) History: Reports: None Dermatologic History: Reports: None - Infectious Disease History Infectious Disease History: Reports: Chicken Pox, Novel Coronavirus - Past Surgical History Head Surgeries/Procedures: Reports: None HEENT Surgical History: Reports: None Cardiovascular Surgical History: Reports: None GI Surgical History: Reports: Appendectomy, Cholecystectomy Male Surgical History: Reports: Circumcision Other Male Surgeries/Procedures: Has had kidney biopsy Musculoskeletal Surgical History: Reports: Other (See Below) Other Musculoskeletal Surgeries/Procedures:: left arm Social & Family History - Family History Family Medical History: No Pertinent Family History - Tobacco Use Tobacco Use Status *Q: Current Every Day Tobacco User Years of Tobacco use: 15 Packs/Tins Daily: 1 - Caffeine Use Caffeine Use: Reports: Coffee Caffeine Use Comment: Occasional - Recreational Drug Use Recreational Drug Use: No - Living Situation & Occupation Living situation: Reports: Single, Alone Occupation: Employed ED ROS GENERAL - Review of Systems Review Of Systems: Comprehensive ROS is negative, except as noted in HPI. ED EXAM, RENAL/ - Physical Exam Exam: See Below Exam Limited By: No Limitations General Appearance: Alert, WD/WN, Moderate Distress Eye Exam: Bilateral Eye: EOMI Ears: Hearing Grossly Normal Respiratory/Chest: No Respiratory Distress GI/Abdominal: Other (Male) Exam: Deferred Rectal (Males) Exam: Deferred Psychiatric: Depressed Mood, Flat Affect Course - Vital Signs Last Recorded V/S: Last Vital Signs Temp 97.1 F 05/23/21 09:06 Pulse 62 05/23/21 09:06 Resp 18 05/23/21 09:06 BP 124/84 05/23/21 09:06 Pulse Ox 98 05/23/21 09:06 - Orders/Labs/Meds Orders: Active Orders 24 hr Category Date Time Status DRUG SCREEN, URINE [URCHEM] Stat Lab 05/23/21 09:18 Ordered UA RFX MARGARITA AND CULT IF INDIC [URIN] Stat Lab 05/23/21 09:18 Ordered - Re-Assessments/Exams Free Text/Narrative Re-Assessment/Exam: 05/23/21 09:32 After reading the letter, the patient was offered an IV dose of Toradol, but the patient declined. The patient left against medical advise with no further treatment. 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 The patient was polite throughout the visit and left the ED with the letter in his hand. Departure - Departure Time of Disposition: 09:35 Disposition: Against Medical Advice 07 Clinical Impression: Loin pain hematuria syndrome, Left flank pain - Discharge Information *PRESCRIPTION DRUG MONITORING PROGRAM REVIEWED*: Yes *COPY OF PRESCRIPTION DRUG MONITORING REPORT IN PATIENT NICO: Yes Forms: ED Department Discharge Sepsis Event Note (ED) - Evaluation Sepsis Screening Result: No Definite Risk - Focused Exam Vital Signs: Vital Signs Temp Pulse Resp BP Pulse Ox 05/23/21 09:06 97.1 F 62 18 124/84 98
[2021-05-23 09:36] LABS: AMPHETAMINES,URINE NEGATIVE (NEGATIVE); BARBITURATES,URINE NEGATIVE (NEGATIVE); BENZODIAZEPINE,URINE NEGATIVE (NEGATIVE); MDMA (ECSTASY), URINE NEGATIVE (NEGATIVE); METHADONE,URINE NEGATIVE (NEGATIVE); METHAMPHETAMINES,URINE NEGATIVE (NEGATIVE); OPIATES,URINE NEGATIVE (NEGATIVE); OXYCODONE,URINE POSITIVE (NEGATIVE); PHENCYCLIDINE,URINE NEGATIVE (NEGATIVE); TCA,URINE NEGATIVE (NEGATIVE)
== END 2021-05-23 09:27 | disposition left against medical advice (07) ==
LOC: DL.ED 08:54
DX: R10.9 Unspecified abdominal pain (principal); M54.5 Low back pain; R31.9 Hematuria, unspecified; E78.00 Pure hypercholesterolemia, unspecified; I10 Essential (primary) hypertension; E11.9 Type 2 diabetes mellitus without complications; E66.9 Obesity, unspecified; Z68.41 Body mass index [BMI] 40.0-44.9, adult; Z88.0 Allergy status to penicillin; Z91.030 Bee allergy status; Z88.5 Allergy status to narcotic agent; Z79.84 Long term (current) use of oral hypoglycemic drugs; Z79.899 Other long term (current) drug therapy; Z72.0 Tobacco use
CPT/HCPCS: 80305-QW; 81001; 87086; 99284

== ENCOUNTER 2021-05-29 10:22 | Emergency (ER) | payer MEDICAID ==
[2021-05-29 10:35] VITALS: BP 122/74; PULSE 68
--- NOTE | 2021-05-29 11:05 | EDM.PDOC ---
ED HPI GENERAL MEDICAL PROBLEM - General Chief Complaint: Genitourinary Problem Stated Complaint: SIDE PAIN Time Seen by Provider: 05/29/21 11:01 Source of Information: Reports: Patient History Limitations: Reports: No Limitations - History of Present Illness INITIAL COMMENTS - FREE TEXT/NARRATIVE: 31 y/o M c/o L flank pain for 8 days, the pain is 10/10 and radiates to his groi n. Feels like his normal Loin Pain Hematuria syndrome. The denies fever, cough, chills, drugs, etoh, cp, db, abd pn, extremity pn. The pt is aware of his contract with [facility] regarding his ER visits. This is his first visit for the month of May. Duration: Day(s): Location: Reports: Back, Pelvis Quality: Reports: Ache Severity: Severe Treatments OFFENDER JOB RETENTION SPECIALIST: Reports: Other Medication(s) Other Treatments OFFENDER JOB RETENTION SPECIALIST: zofran left flank Pain Score (Numeric/FACES): 8 - Related Data Allergies Allergy/AdvReac Type Severity Reaction Status Date / Time amoxicillin [Amoxicillin] Allergy Rash Verified 05/29/21 10:35 bee venom protein (honey bee) Allergy Cannot Verified 05/29/21 10:35 Remember butorphanol [From Stadol] Allergy Hallucinati Verified 05/29/21 10:35 ons haloperidol [From Haldol] Allergy Hallucinati Verified 05/29/21 10:35 ons ketorolac tromethamine Allergy Rash Verified 05/29/21 10:35 [From Toradol] metoclopramide [From Reglan] Allergy Agitation Verified 05/29/21 10:35 promethazine HCl Allergy Hallucinati Verified 05/29/21 10:35 [From Phenergan] ons tramadol HCl [From Ultram] Allergy Rash Verified 05/29/21 10:35 Home Meds: Home Meds Tamsulosin HCl [Flomax] 0.4 mg PO BID 05/30/20 [History] Ondansetron [Zofran] 8 mg PO TID PRN 06/21/20 [History] Acetaminophen [Tylenol] 650 mg PO Q4HR PRN 12/28/20 [History] metFORMIN HCl [Metformin ER Gastric] 1,000 mg PO BID 02/28/21 [History] Past Medical History - Past Health History Medical/Surgical History: Denies Medical/Surgical History HEENT History: Reports: None Cardiovascular History: Reports: High Cholesterol, Hypertension Respiratory History: Reports: None Gastrointestinal History: Reports: Cholelithiasis, Gastritis, GERD Other Gastrointestinal History: gallbladder pain Genitourinary History: Reports: Renal Calculus, Other (See Below) 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 Hematologic History: Reports: None Immunologic History: Reports: None Oncologic (Cancer) History: Reports: None Dermatologic History: Reports: None - Infectious Disease History Infectious Disease History: Reports: Chicken Pox, Novel Coronavirus - Past Surgical History Head Surgeries/Procedures: Reports: None HEENT Surgical History: Reports: None Cardiovascular Surgical History: Reports: None GI Surgical History: Reports: Appendectomy, Cholecystectomy Male Surgical History: Reports: Circumcision Other Male Surgeries/Procedures: Has had kidney biopsy Musculoskeletal Surgical History: Reports: Other (See Below) Other Musculoskeletal Surgeries/Procedures:: left arm Social & Family History - Family History Family Medical History: No Pertinent Family History - Tobacco Use Tobacco Use Status *Q: Current Some Day Tobacco User Years of Tobacco use: 10 Packs/Tins Daily: 0.5 - Caffeine Use Caffeine Use: Reports: Soda Caffeine Use Comment: Occasional - Recreational Drug Use Recreational Drug Use: No - Living Situation & Occupation Living situation: Reports: Single, Alone Occupation: Employed ED ROS GENERAL - Review of Systems Review Of Systems: Comprehensive ROS is negative, except as noted in HPI. ED EXAM, RENAL/ - Physical Exam Exam: See Below Exam Limited By: No Limitations General Appearance: Alert, No Apparent Distress Eye Exam: Bilateral Eye: PERRL Neck: Normal Inspection, Supple, Non-Tender, Full Range of Motion Respiratory/Chest: No Respiratory Distress, Lungs Clear, Normal Breath Sounds, No Accessory Muscle Use, Chest Non-Tender Cardiovascular: Normal Peripheral Pulses, Regular Rate, Rhythm, No Edema, No Gallop, No JVD, No Murmur, No Rub GI/Abdominal: Soft, Non-Tender (Male) Exam: Deferred Rectal (Males) Exam: Deferred Back Exam: CVA Tenderness (L) Extremities: Normal Inspection, Normal Range of Motion, Non-Tender, Normal Capillary Refill, No Pedal Edema Neurological: Alert, Oriented, CN II-XII Intact, Normal Cognition, Normal Gait, Normal Reflexes, No Motor/Sensory Deficits Psychiatric: Normal Affect, Normal Mood Skin Exam: Warm, Dry, Intact Course - Vital Signs Last Recorded V/S: Last Vital Signs Temp 98.3 F 05/29/21 10:32 Pulse 68 05/29/21 10:32 Resp 20 05/29/21 10:32 BP 122/74 05/29/21 10:32 Pulse Ox 96 05/29/21 10:32 Departure - Departure Time of Disposition: 11:04 Disposition: Home, Self-Care 01 Condition: Fair Clinical Impression: Loin pain hematuria syndrome - Discharge Information *PRESCRIPTION DRUG MONITORING PROGRAM REVIEWED*: Not Applicable *COPY OF PRESCRIPTION DRUG MONITORING REPORT IN PATIENT NICO: Not Applicable Instructions: Hematuria, Adult Additional Instructions: Follow up with your primary care facility this week regarding your recent flare up of your loin pain hematuria. Sepsis Event Note (ED) - Evaluation Sepsis Screening Result: No Definite Risk - Focused Exam Vital Signs: Vital Signs Temp Pulse Resp BP Pulse Ox 05/29/21 10:32 98.3 F 68 20 122/74 96
[2021-05-29] MEDS ORDERED: HYDROmorphone 1 MG/ML Syringe IM ONE (11:06)
== END 2021-05-29 11:26 | disposition home or self-care (01) ==
LOC: DL.ED 10:22
DX: N39.8 Other specified disorders of urinary system (principal); I10 Essential (primary) hypertension; E11.9 Type 2 diabetes mellitus without complications; E66.9 Obesity, unspecified; Z79.84 Long term (current) use of oral hypoglycemic drugs; Z68.41 Body mass index [BMI] 40.0-44.9, adult; Z91.030 Bee allergy status; Z88.0 Allergy status to penicillin; Z88.6 Allergy status to analgesic agent; Z88.5 Allergy status to narcotic agent; Z88.8 Allergy status to other drugs, medicaments and biological substances; Z72.0 Tobacco use
CPT/HCPCS: 96372; 99283; J1170

== ENCOUNTER 2021-05-30 07:32 | Emergency (ER) | payer MEDICAID ==
[2021-05-30 07:50] VITALS: BP 129/85; PULSE 63
--- NOTE | 2021-05-30 08:02 | EDM.PDOC ---
ED HPI GENERAL MEDICAL PROBLEM - General Chief Complaint: Abdominal Pain Stated Complaint: DISCOMFORT IN KIDNEY Time Seen by Provider: 05/30/21 07:57 Source of Information: Reports: Patient History Limitations: Reports: No Limitations - History of Present Illness INITIAL COMMENTS - FREE TEXT/NARRATIVE: 31 y/o M well known pt in today for recurrent loin pain hematuria pn. Pt states the pain is 7/10 on the left flank radiating to the L groin. 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 He denies any other complaint. The pt has a contract for [facility] due to his chronic pain condition and is allowed two visits a month where he can receive narcotics for his symptoms. The pt was seen here yesterday and treated with 2mg im Dilaudid. Today is his second visit for the month - Related Data Allergies Allergy/AdvReac Type Severity Reaction Status Date / Time amoxicillin [Amoxicillin] Allergy Rash Verified 05/29/21 10:35 bee venom protein (honey bee) Allergy Cannot Verified 05/29/21 10:35 Remember butorphanol [From Stadol] Allergy Hallucinati Verified 05/29/21 10:35 ons haloperidol [From Haldol] Allergy Hallucinati Verified 05/29/21 10:35 ons ketorolac tromethamine Allergy Rash Verified 05/29/21 10:35 [From Toradol] metoclopramide [From Reglan] Allergy Agitation Verified 05/29/21 10:35 promethazine HCl Allergy Hallucinati Verified 05/29/21 10:35 [From Phenergan] ons tramadol HCl [From Ultram] Allergy Rash Verified 05/29/21 10:35 Home Meds: Home Meds Tamsulosin HCl [Flomax] 0.4 mg PO BID 05/30/20 [History] Ondansetron [Zofran] 8 mg PO TID PRN 06/21/20 [History] Acetaminophen [Tylenol] 650 mg PO Q4HR PRN 12/28/20 [History] metFORMIN HCl [Metformin ER Gastric] 1,000 mg PO BID 02/28/21 [History] Past Medical History - Past Health History Medical/Surgical History: Denies Medical/Surgical History HEENT History: Reports: None Cardiovascular History: Reports: High Cholesterol, Hypertension Respiratory History: Reports: None Gastrointestinal History: Reports: Cholelithiasis, Gastritis, GERD Other Gastrointestinal History: gallbladder pain Genitourinary History: Reports: Renal Calculus, Other (See Below) 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 Hematologic History: Reports: None Immunologic History: Reports: None Oncologic (Cancer) History: Reports: None Dermatologic History: Reports: None - Infectious Disease History Infectious Disease History: Reports: Chicken Pox, Novel Coronavirus - Past Surgical History Head Surgeries/Procedures: Reports: None HEENT Surgical History: Reports: None Cardiovascular Surgical History: Reports: None GI Surgical History: Reports: Appendectomy, Cholecystectomy Male Surgical History: Reports: Circumcision Other Male Surgeries/Procedures: Has had kidney biopsy Musculoskeletal Surgical History: Reports: Other (See Below) Other Musculoskeletal Surgeries/Procedures:: left arm Social & Family History - Family History Family Medical History: No Pertinent Family History - Caffeine Use Caffeine Use: Reports: Soda Caffeine Use Comment: Occasional - Living Situation & Occupation Living situation: Reports: Single, Alone Occupation: Employed ED ROS GENERAL - Review of Systems Review Of Systems: Comprehensive ROS is negative, except as noted in HPI. ED EXAM, RENAL/ - Physical Exam Exam: See Below General Appearance: Alert, No Apparent Distress Eye Exam: Bilateral Eye: PERRL Respiratory/Chest: No Respiratory Distress, Lungs Clear, Normal Breath Sounds, No Accessory Muscle Use, Chest Non-Tender Cardiovascular: Normal Peripheral Pulses, Regular Rate, Rhythm, No Edema, No Gallop, No JVD, No Murmur, No Rub GI/Abdominal: Soft, Non-Tender Back Exam: CVA Tenderness (L) Extremities: Normal Inspection, Normal Range of Motion, Non-Tender, Normal Capillary Refill, No Pedal Edema Neurological: Alert, Oriented, CN II-XII Intact, Normal Cognition, Normal Gait, Normal Reflexes, No Motor/Sensory Deficits Skin Exam: Warm, Dry, Intact, Normal Color, No Rash Course - Vital Signs Last Recorded V/S: Last Vital Signs Temp 98.1 F 05/30/21 07:45 Pulse 63 05/30/21 07:45 Resp 16 05/30/21 07:45 BP 129/85 05/30/21 07:45 Pulse Ox 100 05/30/21 07:45 Departure - Departure Time of Disposition: 08:02 Disposition: Home, Self-Care 01 Condition: Good Clinical Impression: Loin pain hematuria syndrome - Discharge Information *PRESCRIPTION DRUG MONITORING PROGRAM REVIEWED*: Not Applicable *COPY OF PRESCRIPTION DRUG MONITORING REPORT IN PATIENT NICO: Not Applicable Instructions: Hematuria, Adult Additional Instructions: Contact your PCP to help manage your loin pain hematuria exacerbations Sepsis Event Note (ED) - Focused Exam Vital Signs: Vital Signs Temp Pulse Resp BP Pulse Ox 05/30/21 07:45 98.1 F 63 16 129/85 100
[2021-05-30] MEDS ORDERED: Acetaminophen/HYDROcodone 325-5 MG Tab PO ONE (08:09)
== END 2021-05-30 08:24 | disposition home or self-care (01) ==
LOC: DL.ED 07:32
DX: M54.50 Low back pain, unspecified (principal); R31.9 Hematuria, unspecified; E78.00 Pure hypercholesterolemia, unspecified; I10 Essential (primary) hypertension; E11.9 Type 2 diabetes mellitus without complications; E66.9 Obesity, unspecified; Z68.30 Body mass index [BMI] 30.0-30.9, adult; Z88.0 Allergy status to penicillin; Z91.030 Bee allergy status; Z88.5 Allergy status to narcotic agent; Z88.6 Allergy status to analgesic agent; Z79.84 Long term (current) use of oral hypoglycemic drugs
CPT/HCPCS: 99283; A9270-GY

== ENCOUNTER 2021-06-18 19:05 | Emergency (ER) | payer MEDICAID ==
[2021-06-18 19:46] LABS: AMPHETAMINES,URINE NEGATIVE (NEGATIVE); BARBITURATES,URINE NEGATIVE (NEGATIVE); BENZODIAZEPINE,URINE NEGATIVE (NEGATIVE); MDMA (ECSTASY), URINE NEGATIVE (NEGATIVE); METHADONE,URINE NEGATIVE (NEGATIVE); METHAMPHETAMINES,URINE NEGATIVE (NEGATIVE); OPIATES,URINE NEGATIVE (NEGATIVE); OXYCODONE,URINE NEGATIVE (NEGATIVE); PHENCYCLIDINE,URINE NEGATIVE (NEGATIVE); TCA,URINE NEGATIVE (NEGATIVE)
[2021-06-18 20:36] VITALS: BP 118/77; PULSE 85
[2021-06-18] MEDS ORDERED: Acetaminophen 500 MG Tab PO ONE (20:44)
--- NOTE | 2021-06-18 20:53 | EDM.PDOC ---
ED HPI GENERAL MEDICAL PROBLEM - General Chief Complaint: Flank Pain Stated Complaint: PASSING A LOT OF BLOOD, A LOT OF DISCOMFORT Time Seen by Provider: 06/18/21 20:48 Source of Information: Reports: Patient History Limitations: Reports: No Limitations - History of Present Illness INITIAL COMMENTS - FREE TEXT/NARRATIVE: 31 y/o M well known to the Er came in tonight c/o his loin pain hematuria symptoms. Pt reports bilateral pain across his flanks. Denies fever chills, drugs, etoh. Pt has received and is aware of the letter from [facility] that dictates how often he can visit the ED for pain control as it has been very frequent in the past. 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 Plascencia in [place] who advised him to come to the ER and be evaluated and possibly be transferred to [place]. Bilateral Flank Pain Score (Numeric/FACES): 10 - Related Data Allergies Allergy/AdvReac Type Severity Reaction Status Date / Time amoxicillin [Amoxicillin] Allergy Rash Verified 05/29/21 10:35 bee venom protein (honey bee) Allergy Cannot Verified 05/29/21 10:35 Remember butorphanol [From Stadol] Allergy Hallucinati Verified 05/29/21 10:35 ons haloperidol [From Haldol] Allergy Hallucinati Verified 05/29/21 10:35 ons ketorolac tromethamine Allergy Rash Verified 05/29/21 10:35 [From Toradol] metoclopramide [From Reglan] Allergy Agitation Verified 05/29/21 10:35 promethazine HCl Allergy Hallucinati Verified 05/29/21 10:35 [From Phenergan] ons tramadol HCl [From Ultram] Allergy Rash Verified 05/29/21 10:35 Home Meds: Home Meds Tamsulosin HCl [Flomax] 0.4 mg PO BID 05/30/20 [History] Ondansetron [Zofran] 8 mg PO TID PRN 06/21/20 [History] Acetaminophen [Tylenol] 650 mg PO Q4HR PRN 12/28/20 [History] metFORMIN HCl [Metformin ER Gastric] 1,000 mg PO BID 02/28/21 [History] Past Medical History - Past Health History Medical/Surgical History: Denies Medical/Surgical History HEENT History: Reports: None Cardiovascular History: Reports: High Cholesterol, Hypertension Respiratory History: Reports: None Gastrointestinal History: Reports: Cholelithiasis, Gastritis, GERD Other Gastrointestinal History: gallbladder pain Genitourinary History: Reports: Renal Calculus, Other (See Below) 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 Hematologic History: Reports: None Immunologic History: Reports: None Oncologic (Cancer) History: Reports: None Dermatologic History: Reports: None - Infectious Disease History Infectious Disease History: Reports: Chicken Pox, Novel Coronavirus - Past Surgical History Head Surgeries/Procedures: Reports: None HEENT Surgical History: Reports: None Cardiovascular Surgical History: Reports: None GI Surgical History: Reports: Appendectomy, Cholecystectomy Male Surgical History: Reports: Circumcision Other Male Surgeries/Procedures: Has had kidney biopsy Musculoskeletal Surgical History: Reports: Other (See Below) Other Musculoskeletal Surgeries/Procedures:: left arm Social & Family History - Family History Family Medical History: No Pertinent Family History - Tobacco Use Tobacco Use Status *Q: Never Tobacco User - Caffeine Use Caffeine Use: Reports: Soda Caffeine Use Comment: Occasional - Recreational Drug Use Recreational Drug Use: No - Living Situation & Occupation Living situation: Reports: Single, Alone Occupation: Employed ED ROS GENERAL - Review of Systems Review Of Systems: Comprehensive ROS is negative, except as noted in HPI. ED EXAM, GI/ABD - Physical Exam Exam: See Below Exam Limited By: No Limitations General Appearance: Alert Respiratory/Chest: No Respiratory Distress, Lungs Clear, Normal Breath Sounds, No Accessory Muscle Use, Chest Non-Tender Cardiovascular: Normal Peripheral Pulses, Regular Rate, Rhythm, No Edema, No Gallop, No JVD, No Murmur, No Rub GI/Abdominal Exam: Soft, Non-Tender Back Exam: Other (tenderness to palpation of posterior flanks) Course - Vital Signs Last Recorded V/S: Last Vital Signs Temp 96.5 F L 06/18/21 20:34 Pulse 85 06/18/21 20:34 Resp 16 06/18/21 20:34 BP 118/77 06/18/21 20:34 Pulse Ox 98 06/18/21 20:34 - Orders/Labs/Meds Labs: Laboratory Tests 06/18/21 06/18/21 Range/Units 19:35 19:39 Urine Color Red (YELLOW) Urine Appearance Slightly cloudy (CLEAR) Urine pH 6.0 (5.0-9.0) Ur Specific [place] 1.010 (1.005-1.030) Urine Protein 100 H (NEGATIVE) Urine Glucose (UA) Negative (NEGATIVE) Urine Ketones Trace H (NEGATIVE) Urine Occult Blood Large H (NEGATIVE) Urine Nitrite Positive H (NEGATIVE) Urine Bilirubin Small H (NEGATIVE) Urine Urobilinogen 0.2 (0.2-1.0) mg/dL Ur Leukocyte Esterase Trace H (NEGATIVE) Urine RBC Packed H (0-5) /HPF Urine WBC 0-5 (0-5/HPF) /HPF Ur Epithelial Cells Moderate H (NOT SEEN) /HPF Urine Bacteria Moderate H (0-FEW/HPF) /HPF Urine Opiates Screen Negative (NEGATIVE) Ur Oxycodone Screen Negative (NEGATIVE) Urine Methadone Screen Negative (NEGATIVE) Ur Barbiturates Screen Negative (NEGATIVE) U Tricyclic Antidepress Negative (NEGATIVE) Ur Phencyclidine Scrn Negative (NEGATIVE) Ur Amphetamine Screen Negative (NEGATIVE) U Methamphetamines Scrn Negative (NEGATIVE) Urine MDMA Screen Negative (NEGATIVE) U Benzodiazepines Scrn Negative (NEGATIVE) Urine Cocaine Screen Negative (NEGATIVE) U Marijuana (THC) Screen Positive H (NEGATIVE) Meds: Medications Discontinued Medications Generic Name Dose Route Start Last Admin Trade Name Freq PRN Reason Stop Dose Admin Acetaminophen 1,000 mg 06/18/21 20:44 06/18/21 20:51 Acetaminophen 500 Mg Tab PO 06/18/21 20:45 1,000 mg ONETIME ONE Administration - Re-Assessments/Exams Free Text/Narrative Re-Assessment/Exam: 06/18/21 20:[address] Arriaza at [place] and he advised that he has seen the pt once or twice a year. He stated that the pts loin pain hematuria is a benign condition and to give the pt tylenol for pain. Departure - Departure Time of Disposition: 20:56 Disposition: Home, Self-Care 01 Condition: Fair Clinical Impression: Loin pain hematuria syndrome, UTI, Urinary tract infectious disease - Discharge Information *PRESCRIPTION DRUG MONITORING PROGRAM REVIEWED*: Not Applicable *COPY OF PRESCRIPTION DRUG MONITORING REPORT IN PATIENT NICO: Not Applicable Instructions: Hematuria, Adult, Urinary Tract Infection, Adult, [id number] Forms: ED Department Discharge Additional Instructions: RX: Bactrim DS Follow up with your chronic pain provider to establish a jail care plan for your condition. Sepsis Event Note (ED) - Evaluation Sepsis Screening Result: No Definite Risk - Focused Exam Vital Signs: Vital Signs Temp Pulse Resp BP Pulse Ox 06/18/21 20:34 96.5 F L 85 16 118/77 98
[2021-06-18] MEDS ORDERED: Sulfamethoxazole/Trimethoprim 800-160 MG Tab PO ONE (21:02)
== END 2021-06-18 21:09 | disposition home or self-care (01) ==
LOC: DL.ED 19:05
DX: N39.0 Urinary tract infection, site not specified (principal); E11.9 Type 2 diabetes mellitus without complications; E66.9 Obesity, unspecified; I10 Essential (primary) hypertension; Z79.84 Long term (current) use of oral hypoglycemic drugs; Z88.0 Allergy status to penicillin; Z88.6 Allergy status to analgesic agent; Z88.5 Allergy status to narcotic agent; Z91.030 Bee allergy status
CPT/HCPCS: 80305-QW; 81001; 99283; A9270-GY

== ENCOUNTER 2021-06-27 08:46 | Emergency (ER) | payer MEDICAID ==
[2021-06-27] MEDS ORDERED: HYDROmorphone 1 MG/ML Syringe IM ONE (08:56)
--- NOTE | 2021-06-27 08:56 | EDM.PDOC ---
ED HPI GENERAL MEDICAL PROBLEM - General Chief Complaint: Genitourinary Problem Stated Complaint: FLANK PAIN Time Seen by Provider: 06/27/21 08:53 Source of Information: Reports: Patient, Old Records, RN, RN Notes Reviewed, Other (Reviewed pain contract) History Limitations: Reports: No Limitations - History of Present Illness INITIAL COMMENTS - FREE TEXT/NARRATIVE: 31 y/o M well known pt in today for recurrent loin pain hematuria pain. Pt states the pain is 8/10 on the left flank radiating to the left groin. Feels like his usual loin pain hematuria syndrome pain. He denies any other complaint. The pt has a contract for [facility] due to his chronic pain condition and is allowed two visits a month where he can receive narcotics for his symptoms. Denies fever, chills, or rash. Pt has lost 8lbs since 06/18/21. He claims he has established care with a urologist in [place], Dr. Arriaza. Duration: Chronic, Recurring Location: Reports: Abdomen, Back, Other (Flank) Quality: Reports: Same as Previous Episode Severity: Severe Improves with: Reports: None Worsens with: Reports: None Associated Symptoms: Reports: No Other Symptoms Left Flank Pain Score (Numeric/FACES): 7 - Related Data Allergies Allergy/AdvReac Type Severity Reaction Status Date / Time amoxicillin [Amoxicillin] Allergy Rash Verified 06/27/21 09:01 bee venom protein (honey bee) Allergy Cannot Verified 06/27/21 09:01 Remember butorphanol [From Stadol] Allergy Hallucinati Verified 06/27/21 09:01 ons haloperidol [From Haldol] Allergy Hallucinati Verified 06/27/21 09:01 ons ketorolac tromethamine Allergy Rash Verified 06/27/21 09:01 [From Toradol] metoclopramide [From Reglan] Allergy Agitation Verified 06/27/21 09:01 promethazine HCl Allergy Hallucinati Verified 06/27/21 09:01 [From Phenergan] ons tramadol HCl [From Ultram] Allergy Rash Verified 06/27/21 09:01 Home Meds: Home Meds Tamsulosin HCl [Flomax] 0.4 mg PO BID 05/30/20 [History] Ondansetron [Zofran] 8 mg PO TID PRN 06/21/20 [History] Acetaminophen [Tylenol] 650 mg PO Q4HR PRN 12/28/20 [History] metFORMIN HCl [Metformin ER Gastric] 1,000 mg PO BID 02/28/21 [History] Losartan [Cozaar] 25 mg PO DAILY 06/27/21 [History] Past Medical History - Past Health History Medical/Surgical History: Denies Medical/Surgical History HEENT History: Reports: None Cardiovascular History: Reports: High Cholesterol, Hypertension Respiratory History: Reports: None Gastrointestinal History: Reports: Cholelithiasis, Gastritis, GERD Other Gastrointestinal History: gallbladder pain Genitourinary History: Reports: Renal Calculus, Other (See Below) 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 Hematologic History: Reports: None Immunologic History: Reports: None Oncologic (Cancer) History: Reports: None Dermatologic History: Reports: None - Infectious Disease History Infectious Disease History: Reports: Chicken Pox, Novel Coronavirus - Past Surgical History Head Surgeries/Procedures: Reports: None HEENT Surgical History: Reports: None Cardiovascular Surgical History: Reports: None GI Surgical History: Reports: Appendectomy, Cholecystectomy Male Surgical History: Reports: Circumcision Other Male Surgeries/Procedures: Has had kidney biopsy Musculoskeletal Surgical History: Reports: Other (See Below) Other Musculoskeletal Surgeries/Procedures:: left arm Social & Family History - Family History Family Medical History: No Pertinent Family History - Caffeine Use Caffeine Use: Reports: Soda Caffeine Use Comment: Occasional - Living Situation & Occupation Living situation: Reports: Single, Alone Occupation: Employed ED ROS GENERAL - Review of Systems Review Of Systems: Comprehensive ROS is negative, except as noted in HPI. ED EXAM, RENAL/ - Physical Exam Exam: See Below Exam Limited By: No Limitations General Appearance: Alert, WD/WN, No Apparent Distress, Obese Respiratory/Chest: No Respiratory Distress, Lungs Clear Cardiovascular: Regular Rate, Rhythm GI/Abdominal: Normal Bowel Sounds, Soft, Tender (LLQ, mild). No: Guarding, Rigid, Rebound (Male) Exam: Deferred Back Exam: Full Range of Motion, CVA Tenderness (L). No: CVA Tenderness (R), Vertebral Tenderness Extremities: Normal Inspection Neurological: Alert, Oriented, No Motor/Sensory Deficits Psychiatric: Normal Affect, Normal Mood Skin Exam: Warm, Dry, Intact, Normal Color, No Rash. No: Ecchymosis, Jaundice, Petechiae Course - Vital Signs Last Recorded V/S: Last Vital Signs Temp 99.4 F 06/27/21 08:58 Pulse 62 06/27/21 08:58 Resp 14 06/27/21 08:58 BP 117/74 06/27/21 08:58 Pulse Ox 98 06/27/21 08:58 - Orders/Labs/Meds Meds: Medications Discontinued Medications Generic Name Dose Route Start Last Admin Trade Name Freq PRN Reason Stop Dose Admin Hydromorphone HCl 2 mg 06/27/21 08:56 Hydromorphone 1 Mg/Ml Syringe IM 06/27/21 08:57 ONETIME ONE Departure - Departure Time of Disposition: 09:20 Disposition: Home, Self-Care 01 Condition: Good Clinical Impression: Loin pain hematuria syndrome, History of Henoch-Schonlein purpura, Flank pain - Discharge Information *PRESCRIPTION DRUG MONITORING PROGRAM REVIEWED*: No *COPY OF PRESCRIPTION DRUG MONITORING REPORT IN PATIENT NICO: No Instructions: Flank Pain, Adult, [id number] Forms: ED Department Discharge Additional Instructions: Follow up with your clinic provider for ongoing pain management as needed. Continue your weight loss effort. Sepsis Event Note (ED) - Focused Exam Vital Signs: Vital Signs Temp Pulse Resp BP Pulse Ox 06/27/21 08:58 99.4 F 62 14 117/74 98
[2021-06-27 09:01] VITALS: BP 117/74; PULSE 62
== END 2021-06-27 09:20 | disposition home or self-care (01) ==
LOC: DL.ED 08:46
DX: M54.50 Low back pain, unspecified (principal); R31.9 Hematuria, unspecified; I10 Essential (primary) hypertension; E11.9 Type 2 diabetes mellitus without complications; E66.9 Obesity, unspecified; Z68.41 Body mass index [BMI] 40.0-44.9, adult; Z86.16 Personal history of COVID-19; Z88.0 Allergy status to penicillin; Z91.030 Bee allergy status; Z88.8 Allergy status to other drugs, medicaments and biological substances; Z88.5 Allergy status to narcotic agent; Z79.899 Other long term (current) drug therapy
CPT/HCPCS: 96372; 99283; J1170

== ENCOUNTER 2021-07-02 07:08 | Emergency (ER) | payer MEDICAID | END 2021-07-02 08:57 | disposition left against medical advice (07) | LOC: DL.ED 07:08 | DX: Z53.21 Procedure and treatment not carried out due to patient leaving prior to being seen by health care provider (principal) ==

== ENCOUNTER 2021-07-03 17:50 | Emergency (ER) | payer MEDICAID ==
[2021-07-03 18:17] VITALS: BP 143/85; PULSE 63
== END 2021-07-03 20:04 | disposition left against medical advice (07) ==
LOC: DL.ED 17:50
DX: R10.9 Unspecified abdominal pain (principal); Z53.21 Procedure and treatment not carried out due to patient leaving prior to being seen by health care provider

== ENCOUNTER 2021-07-04 02:50 | Emergency (ER) | payer MEDICAID ==
[2021-07-04 03:15] VITALS: BP 122/84; PULSE 66
--- NOTE | 2021-07-04 03:19 | EDM.PDOC ---
ED HPI GENERAL MEDICAL PROBLEM - General Chief Complaint: Flank Pain Stated Complaint: AMBULANCE Time Seen by Provider: 07/04/21 03:16 Source of Information: Reports: Patient, EMS, RN History Limitations: Reports: No Limitations - History of Present Illness INITIAL COMMENTS - FREE TEXT/NARRATIVE: ED via [facility] with c/o peeing blood and left flank pain. Patient well known to facility for similar presentation . Patient presented earlier during evening but did not wait to be seen. Esvin, took zofran ODT approximately 30minutes prior. No recent fevers. Left Abdomen Pain Score (Numeric/FACES): 9 - Related Data Allergies Allergy/AdvReac Type Severity Reaction Status Date / Time amoxicillin [Amoxicillin] Allergy Rash Verified 07/04/21 03:11 bee venom protein (honey bee) Allergy Cannot Verified 07/04/21 03:11 Remember butorphanol [From Stadol] Allergy Hallucinati Verified 07/04/21 03:11 ons haloperidol [From Haldol] Allergy Hallucinati Verified 07/04/21 03:11 ons ketorolac tromethamine Allergy Rash Verified 07/04/21 03:11 [From Toradol] metoclopramide [From Reglan] Allergy Agitation Verified 07/04/21 03:11 promethazine HCl Allergy Hallucinati Verified 07/04/21 03:11 [From Phenergan] ons tramadol HCl [From Ultram] Allergy Rash Verified 07/04/21 03:11 Home Meds: Home Meds Tamsulosin HCl [Flomax] 0.4 mg PO BID 05/30/20 [History] Ondansetron [Zofran] 8 mg PO TID PRN 06/21/20 [History] Acetaminophen [Tylenol] 650 mg PO Q4HR PRN 12/28/20 [History] metFORMIN HCl [Metformin ER Gastric] 1,000 mg PO BID 02/28/21 [History] Losartan [Cozaar] 25 mg PO DAILY 06/27/21 [History] Past Medical History - Past Health History Medical/Surgical History: Denies Medical/Surgical History HEENT History: Reports: None Cardiovascular History: Reports: High Cholesterol, Hypertension Respiratory History: Reports: None Gastrointestinal History: Reports: Cholelithiasis, Gastritis, GERD Other Gastrointestinal History: gallbladder pain Genitourinary History: Reports: Renal Calculus, Other (See Below) 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 Hematologic History: Reports: None Immunologic History: Reports: None Oncologic (Cancer) History: Reports: None Dermatologic History: Reports: None - Infectious Disease History Infectious Disease History: Reports: Chicken Pox, Novel Coronavirus - Past Surgical History Head Surgeries/Procedures: Reports: None HEENT Surgical History: Reports: None Cardiovascular Surgical History: Reports: None GI Surgical History: Reports: Appendectomy, Cholecystectomy Male Surgical History: Reports: Circumcision Other Male Surgeries/Procedures: Has had kidney biopsy Musculoskeletal Surgical History: Reports: Other (See Below) Other Musculoskeletal Surgeries/Procedures:: left arm Social & Family History - Family History Family Medical History: No Pertinent Family History - Caffeine Use Caffeine Use: Reports: Coffee Caffeine Use Comment: Occasional - Living Situation & Occupation Living situation: Reports: Single, Alone Occupation: Employed ED ROS GENERAL - Review of Systems Review Of Systems: Comprehensive ROS is negative, except as noted in HPI. ED EXAM, RENAL/ - Physical Exam Exam: See Below Exam Limited By: No Limitations General Appearance: Alert, Moderate Distress (rolling on cart, moaning lodly) Eye Exam: Bilateral Eye: EOMI Ears: Normal External Exam, Normal TMs Throat/Mouth: Normal Inspection Head: Atraumatic, Normocephalic Respiratory/Chest: No Respiratory Distress, Lungs Clear, Normal Breath Sounds Cardiovascular: Normal Peripheral Pulses, Regular Rate, Rhythm GI/Abdominal: Normal Bowel Sounds, Soft Back Exam: CVA Tenderness (L) Neurological: Alert, Oriented, Normal Cognition Skin Exam: Warm, Dry, Intact Course - Vital Signs Last Recorded V/S: Last Vital Signs Temp 97.2 F 07/04/21 03:11 Pulse 66 07/04/21 03:11 Resp 20 07/04/21 03:11 BP 122/84 07/04/21 03:11 Pulse Ox 95 07/04/21 03:11 - Orders/Labs/Meds Orders: Active Orders 24 hr Category Date Time Status UA RFX MARGARITA AND CULT IF INDIC [URIN] Stat Lab 07/04/21 03:16 Ordered Labs: Laboratory Tests 07/04/21 07/04/21 Range/Units 03:35 03:35 WBC 10.0 (5.0-10.0) 10^3/uL RBC 5.05 (4.6-6.2) 10^6/uL Hgb 15.0 (14.0-18.0) g/dL Hct 43.5 (40.0-54.0) % MCV 86.1 (80-100) fL MCH 29.7 (27.0-34.0) pg MCHC 34.5 (33.0-35.0) g/dL Plt Count 299 (150-450) 10^3/uL Neut % (Auto) 53.6 (42.2-75.2) % Lymph % (Auto) 35.7 (20.5-50.1) % [place] % (Auto) 8.3 H (2-8) % Eos % (Auto) 2.2 (1.0-3.0) % Baso % (Auto) 0.2 (0.0-1.0) % Sodium 143 (136-145) mmol/L Potassium 3.8 (3.5-5.1) mmol/L Chloride 108 H (98-107) mmol/L Carbon Dioxide 23 (21-32) mmol/L Anion Gap 15.8 H (7-13) mEq/L BUN 10 (7-18) mg/dL Creatinine 0.81 (0.70-1.30) mg/dL Est Cr Clr Drug Dosing 146.36 mL/min Estimated GFR (MDRD) > 60 BUN/Creatinine Ratio 12.3 (No establ ref range) Glucose 84 (70-99) mg/dL Calcium 8.2 L (8.5-10.1) mg/dL Total Bilirubin 0.5 (0.2-1.0) mg/dL AST 15 (15-37) U/L ALT 30 (16-63) U/L Alkaline Phosphatase 73 (46-116) U/L Total Protein 6.8 (6.4-8.2) g/dL Albumin 3.6 (3.4-5.0) g/dL Globulin 3.2 Albumin/Globulin Ratio 1.1 Meds: Medications Discontinued Medications Generic Name Dose Route Start Last Admin Trade Name Freq PRN Reason Stop Dose Admin Oxycodone/Acetaminophen 1 tab 07/04/21 03:28 07/04/21 03:37 Acetaminophen/Oxycodone 325-5 Mg Tab PO 07/04/21 03:29 1 tab ONETIME ONE Administration Oxycodone/Acetaminophen 1 tab 07/04/21 03:56 07/04/21 04:04 Acetaminophen/Oxycodone 325-5 Mg Tab PO 07/04/21 03:57 1 tab ONETIME ONE Administration - Re-Assessments/Exams Free Text/Narrative Re-Assessment/Exam: Patient short with nurse giving oral medication stating pill isn't going to help. Continues to moan, begins rolling in bed if staff near. 2nd Percot given, with in few minutes patient up stating he needed to use bathroom in hallway thn left facility, not appearing in distress. Departure - Departure Time of Disposition: 04:21 Disposition: Eloped 07 Condition: Good Clinical Impression: Loin pain hematuria syndrome - Discharge Information *PRESCRIPTION DRUG MONITORING PROGRAM REVIEWED*: Yes *COPY OF PRESCRIPTION DRUG MONITORING REPORT IN PATIENT NICO: No Referrals: PCP,None [Primary Care Provider] - Forms: ED Department Discharge Sepsis Event Note (ED) - Evaluation Sepsis Screening Result: No Definite Risk - Focused Exam Vital Signs: Vital Signs Temp Pulse Resp BP Pulse Ox 07/04/21 03:11 97.2 F 66 20 122/84 95 - My Orders Last 24 Hours: My Active Orders 07/04/21 03:16 UA RFX MARGARITA AND CULT IF INDIC [URIN] Stat - Assessment/Plan Last 24 Hours: My Active Orders 07/04/21 03:16 UA RFX MARGARITA AND CULT IF INDIC [URIN] Stat
[2021-07-04] MEDS ORDERED: Acetaminophen/oxyCODONE 325-5 MG Tab PO ONE ×2 (03:28→03:56)
[2021-07-04 04:07] LABS: ANION GAP 15.8 mEq/L (7-13); CHLORIDE,CL 108 mmol/L (98-107); SODIUM,NA 143 mmol/L (136-145)
== END 2021-07-04 04:09 | disposition left against medical advice (07) ==
LOC: DL.ED 02:50
DX: M54.50 Low back pain, unspecified (principal); R31.9 Hematuria, unspecified; I10 Essential (primary) hypertension; E11.9 Type 2 diabetes mellitus without complications; E66.9 Obesity, unspecified; Z68.41 Body mass index [BMI] 40.0-44.9, adult; Z88.0 Allergy status to penicillin; Z91.030 Bee allergy status; Z88.8 Allergy status to other drugs, medicaments and biological substances; Z88.5 Allergy status to narcotic agent; Z79.84 Long term (current) use of oral hypoglycemic drugs; Z79.899 Other long term (current) drug therapy
CPT/HCPCS: 36415; 80053; 85025; 99284; A9270

== ENCOUNTER 2021-07-24 22:36 | Emergency (ER) | payer MEDICAID ==
[2021-07-24 22:48] VITALS: BP 109/67
--- NOTE | 2021-07-24 23:03 | EDM.PDOC ---
ED HPI GENERAL MEDICAL PROBLEM - General Chief Complaint: Genitourinary Problem Stated Complaint: KIDNEYS Time Seen by Provider: 07/24/21 22:50 Source of Information: Reports: Patient History Limitations: Reports: No Limitations - History of Present Illness INITIAL COMMENTS - FREE TEXT/NARRATIVE: This 31 yo male patient reports to the ED with increased flank pain over the past week. The patient reports he has been taking Tylenol and ibuprofen with little to no symptom relief. The patient reports he did see a provider at [facility] last week and was given pain medication (Ocycodone). The patient reports he took his last Oxycodone on 07/22/21. The patient is currently on a pain management agreement from our facility where he is allowed to be given pain medications through the ED 2 times per month. The patient has registered for ED visits 5 times (including this visit), seen in the ED for 2 of those visit and given pain medications once this month (June). The patient reports he sees a specialist in [place] on 07/26/21. The patient has been seen numerous times over the past years for similar symptoms and has been diagnosed with loin pain hematuria syndrome. Duration: Week(s):, Constant Location: Reports: Back (left flank) Quality: Reports: Ache, Sharp Severity: Moderate Improves with: Reports: None Worsens with: Reports: None Context: Reports: Other Associated Symptoms: Reports: No Other Symptoms Treatments STOVE FITTER: Reports: Acetaminophen, NSAIDS Bilateral Flank Pain Score (Numeric/FACES): 9 - Related Data Allergies Allergy/AdvReac Type Severity Reaction Status Date / Time amoxicillin [Amoxicillin] Allergy Rash Verified 07/24/21 22:45 bee venom protein (honey bee) Allergy Cannot Verified 07/24/21 22:45 Remember butorphanol [From Stadol] Allergy Hallucinati Verified 07/24/21 22:45 ons haloperidol [From Haldol] Allergy Hallucinati Verified 07/24/21 22:45 ons ketorolac tromethamine Allergy Rash Verified 07/24/21 22:45 [From Toradol] metoclopramide [From Reglan] Allergy Agitation Verified 07/24/21 22:45 promethazine HCl Allergy Hallucinati Verified 07/24/21 22:45 [From Phenergan] ons tramadol HCl [From Ultram] Allergy Rash Verified 07/24/21 22:45 Home Meds: Home Meds Tamsulosin HCl [Flomax] 0.4 mg PO BID 05/30/20 [History] Ondansetron [Zofran] 8 mg PO TID PRN 06/21/20 [History] Acetaminophen [Tylenol] 650 mg PO Q4HR PRN 12/28/20 [History] metFORMIN HCl [Metformin ER Gastric] 1,000 mg PO BID 02/28/21 [History] Losartan [Cozaar] 25 mg PO DAILY 06/27/21 [History] Past Medical History - Past Health History Medical/Surgical History: Denies Medical/Surgical History HEENT History: Reports: None Cardiovascular History: Reports: High Cholesterol, Hypertension Respiratory History: Reports: None Gastrointestinal History: Reports: Cholelithiasis, Gastritis, GERD Other Gastrointestinal History: gallbladder pain Genitourinary History: Reports: Renal Calculus, Other (See Below) 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 Hematologic History: Reports: None Immunologic History: Reports: None Oncologic (Cancer) History: Reports: None Dermatologic History: Reports: None - Infectious Disease History Infectious Disease History: Reports: Chicken Pox, Novel Coronavirus - Past Surgical History Head Surgeries/Procedures: Reports: None HEENT Surgical History: Reports: None Cardiovascular Surgical History: Reports: None GI Surgical History: Reports: Appendectomy, Cholecystectomy Male Surgical History: Reports: Circumcision Other Male Surgeries/Procedures: Has had kidney biopsy Musculoskeletal Surgical History: Reports: Other (See Below) Other Musculoskeletal Surgeries/Procedures:: left arm Social & Family History - Family History Family Medical History: No Pertinent Family History - Tobacco Use Tobacco Use Status *Q: Current Every Day Tobacco User Years of Tobacco use: 15 Packs/Tins Daily: 0.2 - Caffeine Use Caffeine Use: Reports: None Caffeine Use Comment: Occasional - Recreational Drug Use Recreational Drug Use: Yes Recreational Drug Type: Reports: Marijuana/Hashish - Living Situation & Occupation Living situation: Reports: Single, Alone Occupation: Employed ED ROS GENERAL - Review of Systems Review Of Systems: Comprehensive ROS is negative, except as noted in HPI. ED EXAM, RENAL/ - Physical Exam Exam: See Below Exam Limited By: No Limitations General Appearance: Alert, WD/WN, Severe Distress, Obese Eye Exam: Bilateral Eye: EOMI, Normal Inspection, PERRL Ears: Normal External Exam, Normal Canal, Hearing Grossly Normal, Normal TMs Nose: Normal Inspection, Normal Mucosa, No Blood Throat/Mouth: Normal Inspection, Normal Lips, Normal Teeth, Normal Gums, Normal Oropharynx, Normal Voice, No Airway Compromise Head: Atraumatic, Normocephalic Neck: Normal Inspection, Supple, Non-Tender, Full Range of Motion Respiratory/Chest: No Respiratory Distress, Lungs Clear, Normal Breath Sounds, No Accessory Muscle Use, Chest Non-Tender Cardiovascular: Normal Peripheral Pulses, Regular Rate, Rhythm, No Edema, No Gallop, No JVD, No Murmur, No Rub GI/Abdominal: Normal Bowel Sounds, Soft, Non-Tender, No Organomegaly, No Distention, No Abnormal Bruit, No Mass (Male) Exam: Deferred Rectal (Males) Exam: Deferred Back Exam: CVA Tenderness (L) Extremities: Normal Inspection, Normal Range of Motion, Non-Tender, Normal Capillary Refill, No Pedal Edema Neurological: Alert, Oriented, CN II-XII Intact, Normal Cognition, Normal Gait, Normal Reflexes, No Motor/Sensory Deficits Psychiatric: Normal Affect, Normal Mood Skin Exam: Warm, Dry, Intact, Normal Color, No Rash Lymphatic: No Adenopathy Course - Vital Signs Last Recorded V/S: Last Vital Signs Temp 98.2 F 07/24/21 22:47 Pulse 82 07/24/21 22:47 Resp 18 07/24/21 22:47 BP 109/67 07/24/21 22:47 Pulse Ox 97 07/24/21 22:47 - Orders/Labs/Meds Orders: Active Orders 24 hr Category Date Time Status COMPREHENSIVE METABOLIC PN,CMP [CHEM] Stat Lab 07/24/21 23:05 Received LACTATE SEPSIS W/ REFLEX [CHEM] Stat Lab 07/24/21 23:05 Received UA W/MICROSCOPIC [URIN] Urgent Lab 07/24/21 23:03 Results Labs: Laboratory Tests 07/24/21 07/24/21 07/24/21 Range/Units 23:03 23:03 23:05 WBC 12.4 H (5.0-10.0) 10^3/uL RBC 5.25 (4.6-6.2) 10^6/uL Hgb 15.4 (14.0-18.0) g/dL Hct 45.1 (40.0-54.0) % MCV 85.9 (80-100) fL MCH 29.3 (27.0-34.0) pg MCHC 34.1 (33.0-35.0) g/dL Plt Count 308 (150-450) 10^3/uL Neut % (Auto) 62.6 (42.2-75.2) % Lymph % (Auto) 29.4 (20.5-50.1) % [place] % (Auto) 5.7 (2-8) % Eos % (Auto) 2.1 (1.0-3.0) % Baso % (Auto) 0.2 (0.0-1.0) % Urine Color Yellow (YELLOW) Urine Appearance Clear (CLEAR) Urine pH 7.0 (5.0-9.0) Ur Specific [place] >= 1.030 (1.005-1.030) Urine Protein Negative (NEGATIVE) Urine Glucose (UA) Negative (NEGATIVE) Urine Ketones Negative (NEGATIVE) Urine Occult Blood Trace-intact H (NEGATIVE) Urine Nitrite Negative (NEGATIVE) Urine Bilirubin Negative (NEGATIVE) Urine Urobilinogen 0.2 (0.2-1.0) mg/dL Ur Leukocyte Esterase Negative (NEGATIVE) Urine Opiates Screen Negative (NEGATIVE) Ur Oxycodone Screen Negative (NEGATIVE) Urine Methadone Screen Negative (NEGATIVE) Ur Barbiturates Screen Negative (NEGATIVE) U Tricyclic Antidepress Negative (NEGATIVE) Ur Phencyclidine Scrn Negative (NEGATIVE) Ur Amphetamine Screen Negative (NEGATIVE) U Methamphetamines Scrn Negative (NEGATIVE) Urine MDMA Screen Negative (NEGATIVE) U Benzodiazepines Scrn Negative (NEGATIVE) Urine Cocaine Screen Negative (NEGATIVE) U Marijuana (THC) Screen Positive H (NEGATIVE) Meds: Medications Discontinued Medications Generic Name Dose Route Start Last Admin Trade Name Freq PRN Reason Stop Dose Admin Hydromorphone HCl 2 mg 07/24/21 23:18 Hydromorphone 1 Mg/Ml Syringe IM 07/24/21 23:19 ONETIME ONE Departure - Departure Time of Disposition: 23:21 Disposition: Home, Self-Care 01 Condition: Fair Clinical Impression: Loin pain hematuria syndrome - Discharge Information *PRESCRIPTION DRUG MONITORING PROGRAM REVIEWED*: Yes *COPY OF PRESCRIPTION DRUG MONITORING REPORT IN PATIENT NICO: No (currently can not print report) Forms: ED Department Discharge Care Plan Goals: The patient was advised of the examination and lab results during the visit. The patient was given an injection of Dilaudid while in the ED. The patient was encouraged to follow-up with his specialist as scheduled. If the patient has any additional symptoms or further concerns, the patient should either return to the emergency department or visit his primary care facility. Sepsis Event Note (ED) - Focused Exam Vital Signs: Vital Signs Temp Pulse Resp BP Pulse Ox 07/24/21 22:47 98.2 F 82 18 109/67 97 - My Orders Last 24 Hours: My Active Orders 07/24/21 23:03 UA W/MICROSCOPIC [URIN] Urgent 07/24/21 23:05 COMPREHENSIVE METABOLIC PN,CMP [CHEM] Stat LACTATE SEPSIS W/ REFLEX [CHEM] Stat - Assessment/Plan Last 24 Hours: My Active Orders 07/24/21 23:03 UA W/MICROSCOPIC [URIN] Urgent 07/24/21 23:05 COMPREHENSIVE METABOLIC PN,CMP [CHEM] Stat LACTATE SEPSIS W/ REFLEX [CHEM] Stat
[2021-07-24 23:16] LABS: BARBITURATES,URINE NEGATIVE (NEGATIVE); BENZODIAZEPINE,URINE NEGATIVE (NEGATIVE); MDMA (ECSTASY), URINE NEGATIVE (NEGATIVE); METHADONE,URINE NEGATIVE (NEGATIVE); METHAMPHETAMINES,URINE NEGATIVE (NEGATIVE); OPIATES,URINE NEGATIVE (NEGATIVE); TCA,URINE NEGATIVE (NEGATIVE)
[2021-07-24 23:17] LABS: AMPHETAMINES,URINE NEGATIVE (NEGATIVE); OXYCODONE,URINE NEGATIVE (NEGATIVE); PHENCYCLIDINE,URINE NEGATIVE (NEGATIVE)
[2021-07-24] MEDS ORDERED: HYDROmorphone 1 MG/ML Syringe IM ONE (23:18)
[2021-07-24 23:29] LABS: ANION GAP 14.9 mEq/L (7-13); CHLORIDE,CL 104 mmol/L (98-107); SODIUM,NA 139 mmol/L (136-145)
[2021-07-24 23:37] VITALS: PULSE 66
== END 2021-07-24 23:28 | disposition home or self-care (01) ==
LOC: DL.ED 22:36
DX: M54.50 Low back pain, unspecified (principal); R31.9 Hematuria, unspecified; I10 Essential (primary) hypertension; E11.9 Type 2 diabetes mellitus without complications; E66.9 Obesity, unspecified; Z68.41 Body mass index [BMI] 40.0-44.9, adult; Z86.16 Personal history of COVID-19; Z72.0 Tobacco use; Z88.0 Allergy status to penicillin; Z91.030 Bee allergy status; Z88.8 Allergy status to other drugs, medicaments and biological substances; Z88.5 Allergy status to narcotic agent; Z79.84 Long term (current) use of oral hypoglycemic drugs; Z79.899 Other long term (current) drug therapy
CPT/HCPCS: 36415; 80053; 80305; 81001; 83605; 85025; 96372; 99284; J1170

== ENCOUNTER 2021-07-25 08:21 | Emergency (ER) | payer MEDICAID ==
[2021-07-25 08:40] VITALS: BP 113/85; PULSE 68
--- NOTE | 2021-07-25 09:16 | EDM.PDOC ---
ED HPI GENERAL MEDICAL PROBLEM - General Chief Complaint: Genitourinary Problem Stated Complaint: KIDNEY STUFF Time Seen by Provider: 07/25/21 08:55 Source of Information: Reports: Patient, Old Records, RN, RN Notes Reviewed History Limitations: Reports: No Limitations - History of Present Illness INITIAL COMMENTS - FREE TEXT/NARRATIVE: Elvin is a 31 y/o male with a history of loin pain hematuria syndrome following HSP who presents to the ED via personal vehicle with complaints of bilateral flank pain, nausea, and vomiting. The characterizes his pain as sharp, radiating from his flanks into his bilateral groin and into the inferior shaft of his penis. He denies rash, penile drainage, or penile lesions. He denies fever, shaking chills, palpitations, shortness of breath, dyspepsia, abdominal pain, diarrhea or constipation. He states his current pain flair has been ongoing for one week with the last two days being the worst. The patient is well-known to this facility and is currently on a pain contract for his chronic pain. The patient states he is not currently established with any PCP and has not been prescribed narcotics. He reports he has an appointment at [facility] tomorrow morning for pain management. Bilateral Flank Pain Score (Numeric/FACES): 9 - Related Data Allergies Allergy/AdvReac Type Severity Reaction Status Date / Time amoxicillin [Amoxicillin] Allergy Rash Verified 07/28/21 12:13 bee venom protein (honey bee) Allergy Cannot Verified 07/28/21 12:13 Remember butorphanol [From Stadol] Allergy Hallucinati Verified 07/28/21 12:13 ons haloperidol [From Haldol] Allergy Hallucinati Verified 07/28/21 12:13 ons ketorolac tromethamine Allergy Rash Verified 07/28/21 12:13 [From Toradol] metoclopramide [From Reglan] Allergy Agitation Verified 07/28/21 12:13 promethazine HCl Allergy Hallucinati Verified 07/28/21 12:13 [From Phenergan] ons tramadol HCl [From Ultram] Allergy Rash Verified 07/28/21 12:13 Home Meds: Home Meds Tamsulosin HCl [Flomax] 0.4 mg PO DAILY 05/30/20 [History] Ondansetron [Zofran] 8 mg PO TID PRN 06/21/20 [History] Acetaminophen [Tylenol] 650 mg PO Q4HR PRN 12/28/20 [History] metFORMIN HCl [Metformin ER Gastric] 1,000 mg PO BID 02/28/21 [History] Losartan [Cozaar] 25 mg PO DAILY 06/27/21 [History] Past Medical History - Past Health History Medical/Surgical History: Denies Medical/Surgical History HEENT History: Reports: None Cardiovascular History: Reports: High Cholesterol, Hypertension Respiratory History: Reports: None Gastrointestinal History: Reports: Cholelithiasis, Gastritis, GERD Other Gastrointestinal History: gallbladder pain Genitourinary History: Reports: Renal Calculus, Other (See Below) 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 Hematologic History: Reports: None Immunologic History: Reports: None Oncologic (Cancer) History: Reports: None Dermatologic History: Reports: None - Infectious Disease History Infectious Disease History: Reports: Chicken Pox, Novel Coronavirus - Past Surgical History Head Surgeries/Procedures: Reports: None HEENT Surgical History: Reports: None Cardiovascular Surgical History: Reports: None GI Surgical History: Reports: Appendectomy, Cholecystectomy Male Surgical History: Reports: Circumcision Other Male Surgeries/Procedures: Has had kidney biopsy Musculoskeletal Surgical History: Reports: Other (See Below) Other Musculoskeletal Surgeries/Procedures:: left arm Social & Family History - Family History Family Medical History: No Pertinent Family History - Tobacco Use Tobacco Use Status *Q: Never Tobacco User Second Hand Smoke Exposure: No - Caffeine Use Caffeine Use: Reports: Coffee, Soda Caffeine Use Comment: Occasional - Recreational Drug Use Recreational Drug Type: Reports: Marijuana/Hashish Other Recreational Drug Type: smoked pot yesterday - Living Situation & Occupation Living situation: Reports: Single, Alone Occupation: Employed ED ROS GENERAL - Review of Systems Review Of Systems: Comprehensive ROS is negative, except as noted in HPI. ED EXAM, RENAL/ - Physical Exam Exam: See Below Exam Limited By: No Limitations General Appearance: Alert, Mild Distress (Pain to bilateral flanks), Obese Eye Exam: Bilateral Eye: EOMI, Normal Inspection, PERRL (3mm) Throat/Mouth: Normal Inspection, Normal Oropharynx, Normal Voice, No Airway Compromise Head: Atraumatic, Normocephalic Neck: Normal Inspection Respiratory/Chest: No Respiratory Distress, Lungs Clear, Normal Breath Sounds, No Accessory Muscle Use, Chest Non-Tender Cardiovascular: Normal Peripheral Pulses, Regular Rate, Rhythm, No Gallop, No Murmur, No Rub GI/Abdominal: Normal Bowel Sounds, Soft, Non-Tender, No Distention, No Abnormal Bruit, No Mass, Pelvis Stable (Male) Exam: Deferred Rectal (Males) Exam: Deferred Back Exam: Full Range of Motion, CVA Tenderness (L), CVA Tenderness (R) Extremities: Normal Inspection, Normal Range of Motion, Non-Tender, No Pedal Edema, Normal Capillary Refill Neurological: Alert, Oriented, CN II-XII Intact, Normal Cognition, Normal Gait, No Motor/Sensory Deficits Psychiatric: Normal Mood, Anxious Skin Exam: Warm, Dry, Intact, Normal Color, No Rash. No: Cyanosis, Diaphoretic, Ecchymosis, Erythema, Jaundice, Mottled, Pallor, Petechiae Course - Vital Signs Last Recorded V/S: Last Vital Signs Temp 97.3 F 07/25/21 08:36 Pulse 68 07/25/21 08:36 Resp 18 07/25/21 08:36 BP 113/85 07/25/21 08:36 Pulse Ox 97 07/25/21 08:36 - Orders/Labs/Meds Labs: Laboratory Tests 07/25/21 07/25/21 Range/Units 09:10 09:10 WBC 9.9 (5.0-10.0) 10^3/uL RBC 5.28 (4.6-6.2) 10^6/uL Hgb 15.6 (14.0-18.0) g/dL Hct 45.2 (40.0-54.0) % MCV 85.6 (80-100) fL MCH 29.5 (27.0-34.0) pg MCHC 34.5 (33.0-35.0) g/dL Plt Count 291 (150-450) 10^3/uL Neut % (Auto) 63.6 (42.2-75.2) % Lymph % (Auto) 28.7 (20.5-50.1) % Sebastian % (Auto) 5.3 (2-8) % Eos % (Auto) 2.2 (1.0-3.0) % Baso % (Auto) 0.2 (0.0-1.0) % Sodium 138 (136-145) mmol/L Potassium 3.9 (3.5-5.1) mmol/L Chloride 104 (98-107) mmol/L Carbon Dioxide 24 (21-32) mmol/L Anion Gap 13.9 H (7-13) mEq/L BUN 13 (7-18) mg/dL Creatinine 0.89 (0.70-1.30) mg/dL Est Cr Clr Drug Dosing 133.21 mL/min Estimated GFR (MDRD) > 60 BUN/Creatinine Ratio 14.6 (No establ ref range) Glucose 93 (70-99) mg/dL Calcium 8.4 L (8.5-10.1) mg/dL Total Bilirubin 0.8 (0.2-1.0) mg/dL AST 11 L (15-37) U/L ALT 28 (16-63) U/L Alkaline Phosphatase 75 (46-116) U/L C-Reactive Protein 0.2 (0.0-0.9) mg/dL Total Protein 7.4 (6.4-8.2) g/dL Albumin 3.9 (3.4-5.0) g/dL Globulin 3.5 Albumin/Globulin Ratio 1.1 Ethyl Alcohol < 3 (0) mg/dL Meds: Medications Discontinued Medications Generic Name Dose Route Start Last Admin Trade Name Freq PRN Reason Stop Dose Admin Acetaminophen 1,000 mg 07/25/21 09:27 07/25/21 09:33 Acetaminophen 500 Mg Tab PO 07/25/21 09:28 1,000 mg ONETIME ONE Administration Ondansetron HCl 4 mg 07/25/21 09:27 07/25/21 09:33 Ondansetron 4 Mg Tab.Dis PO 07/25/21 09:28 4 mg ONETIME ONE Administration - Re-Assessments/Exams Free Text/Narrative Re-Assessment/Exam: 07/25/21 Given previous lab work, will repeat CBC and CMP to trend WBC and assess kidney function. Acetaminophen 1gm PO and Zofran 4mg ODT administered while labs pending for pain and nausea. Findings of examination and blood work reviewed with patient; he states he will not leave a UA at this time. The patient states he is upset as his pain was not appropriately treated; magazine writer discussed chronic vs acute pain management. Rn Social Services again requested UA to r/o infectious process, patient declined. Patient left this facility during conversation. Departure - Departure Time of Disposition: 09:50 Disposition: Against Medical Advice 07 Clinical Impression: Loin pain hematuria syndrome, History of Henoch-Schonlein purpura, Left against medical advice - Discharge Information Referrals: PCP,None [Primary Care Provider] - Forms: ED Department Discharge Sepsis Event Note (ED) - Evaluation Sepsis Screening Result: No Definite Risk
[2021-07-25] MEDS ORDERED: Ondansetron 4 MG Tab.DIS PO ONE (09:27)
[2021-07-25] MEDS ORDERED: Acetaminophen 500 MG Tab PO ONE (09:27)
[2021-07-25 09:36] LABS: ANION GAP 13.9 mEq/L (7-13); CHLORIDE,CL 104 mmol/L (98-107); SODIUM,NA 138 mmol/L (136-145)
== END 2021-07-25 09:58 | disposition left against medical advice (07) ==
LOC: DL.ED 08:21
DX: M54.50 Low back pain, unspecified (principal); R31.9 Hematuria, unspecified; E78.00 Pure hypercholesterolemia, unspecified; I10 Essential (primary) hypertension; K21.9 Gastro-esophageal reflux disease without esophagitis; E11.9 Type 2 diabetes mellitus without complications; E66.9 Obesity, unspecified; Z68.41 Body mass index [BMI] 40.0-44.9, adult; Z88.0 Allergy status to penicillin; Z91.030 Bee allergy status; Z88.5 Allergy status to narcotic agent; Z88.6 Allergy status to analgesic agent; Z79.84 Long term (current) use of oral hypoglycemic drugs; Z79.899 Other long term (current) drug therapy
CPT/HCPCS: 36415; 80053; 80307; 85025; 86140; 99284; A9270

== ENCOUNTER 2021-07-28 12:01 | Emergency (ER) | payer MEDICAID ==
[2021-07-28 12:18] VITALS: BP 131/89; PULSE 87
--- NOTE | 2021-07-28 12:22 | EDM.PDOC ---
ED HPI GENERAL MEDICAL PROBLEM - General Chief Complaint: Flank Pain Stated Complaint: FLANK PAIN Time Seen by Provider: 07/28/21 12:17 Source of Information: Reports: Patient History Limitations: Reports: No Limitations - History of Present Illness INITIAL COMMENTS - FREE TEXT/NARRATIVE: 31 y/o M c/o L sided flank pain x 2 weeks. The pain is sharp, constant, 8/10. He states he has been using his prescribed narcotics but they have given no relief. Pt states it feels like his normal loin pain hematuria syndrome. Pt is well known to this ER and has an agreement with the hospital regarding the treatment of his condition and his chronic narcotic use. He denies pittman, vision prob, cp, db, abd pn, ext pain. - Related Data Allergies Allergy/AdvReac Type Severity Reaction Status Date / Time amoxicillin [Amoxicillin] Allergy Rash Verified 07/28/21 12:13 bee venom protein (honey bee) Allergy Cannot Verified 07/28/21 12:13 Remember butorphanol [From Stadol] Allergy Hallucinati Verified 07/28/21 12:13 ons haloperidol [From Haldol] Allergy Hallucinati Verified 07/28/21 12:13 ons ketorolac tromethamine Allergy Rash Verified 07/28/21 12:13 [From Toradol] metoclopramide [From Reglan] Allergy Agitation Verified 07/28/21 12:13 promethazine HCl Allergy Hallucinati Verified 07/28/21 12:13 [From Phenergan] ons tramadol HCl [From Ultram] Allergy Rash Verified 07/28/21 12:13 Home Meds: Home Meds Tamsulosin HCl [Flomax] 0.4 mg PO DAILY 05/30/20 [History] Ondansetron [Zofran] 8 mg PO TID PRN 06/21/20 [History] Acetaminophen [Tylenol] 650 mg PO Q4HR PRN 12/28/20 [History] metFORMIN HCl [Metformin ER Gastric] 1,000 mg PO BID 02/28/21 [History] Losartan [Cozaar] 25 mg PO DAILY 06/27/21 [History] Past Medical History - Past Health History Medical/Surgical History: Denies Medical/Surgical History HEENT History: Reports: None Cardiovascular History: Reports: High Cholesterol, Hypertension Respiratory History: Reports: None Gastrointestinal History: Reports: Cholelithiasis, Gastritis, GERD Other Gastrointestinal History: gallbladder pain Genitourinary History: Reports: Renal Calculus, Other (See Below) 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 Hematologic History: Reports: None Immunologic History: Reports: None Oncologic (Cancer) History: Reports: None Dermatologic History: Reports: None - Infectious Disease History Infectious Disease History: Reports: Chicken Pox, Novel Coronavirus - Past Surgical History Head Surgeries/Procedures: Reports: None HEENT Surgical History: Reports: None Cardiovascular Surgical History: Reports: None GI Surgical History: Reports: Appendectomy, Cholecystectomy Male Surgical History: Reports: Circumcision Other Male Surgeries/Procedures: Has had kidney biopsy Musculoskeletal Surgical History: Reports: Other (See Below) Other Musculoskeletal Surgeries/Procedures:: left arm Social & Family History - Family History Family Medical History: No Pertinent Family History - Caffeine Use Caffeine Use: Reports: Coffee, Soda Caffeine Use Comment: Occasional - Living Situation & Occupation Living situation: Reports: Single, Alone Occupation: Employed ED ROS GENERAL - Review of Systems Review Of Systems: Comprehensive ROS is negative, except as noted in HPI. ED EXAM, RENAL/ - Physical Exam Exam: See Below Exam Limited By: No Limitations General Appearance: Alert Head: Atraumatic, Normocephalic Neck: Normal Inspection, Supple, Non-Tender, Full Range of Motion Respiratory/Chest: No Respiratory Distress, Lungs Clear, Normal Breath Sounds, No Accessory Muscle Use, Chest Non-Tender Cardiovascular: Normal Peripheral Pulses, Regular Rate, Rhythm, No Edema, No Gallop, No JVD, No Murmur, No Rub GI/Abdominal: Soft, Non-Tender (Male) Exam: Deferred Rectal (Males) Exam: Deferred Back Exam: Normal Inspection, Full Range of Motion, CVA Tenderness (L) Extremities: Normal Inspection, Normal Range of Motion, Non-Tender, Normal Capillary Refill, No Pedal Edema Departure - Departure Time of Disposition: 12:22 Disposition: Home, Self-Care 01 Condition: Good Clinical Impression: Loin pain hematuria syndrome - Discharge Information *PRESCRIPTION DRUG MONITORING PROGRAM REVIEWED*: Not Applicable *COPY OF PRESCRIPTION DRUG MONITORING REPORT IN PATIENT NICO: Not Applicable Additional Instructions: Follow up with your primary care provider about managing your chronic pain.
[2021-07-28] MEDS ORDERED: HYDROmorphone 1 MG/ML Syringe IM ONE (12:25)
== END 2021-07-28 12:41 | disposition home or self-care (01) ==
LOC: DL.ED 12:01
DX: M54.50 Low back pain, unspecified (principal); R31.9 Hematuria, unspecified; E78.00 Pure hypercholesterolemia, unspecified; I10 Essential (primary) hypertension; E11.9 Type 2 diabetes mellitus without complications; E66.9 Obesity, unspecified; Z68.29 Body mass index [BMI] 29.0-29.9, adult; Z88.0 Allergy status to penicillin; Z91.030 Bee allergy status; Z88.5 Allergy status to narcotic agent; Z88.6 Allergy status to analgesic agent; Z79.84 Long term (current) use of oral hypoglycemic drugs; Z79.899 Other long term (current) drug therapy
CPT/HCPCS: 96372; 99283; J1170; 99282

== ENCOUNTER 2021-07-29 18:44 | Emergency (ER) | payer MEDICAID | END 2021-07-29 19:38 | disposition left against medical advice (07) | LOC: DL.ED 18:44 | DX: Z53.21 Procedure and treatment not carried out due to patient leaving prior to being seen by health care provider (principal) ==

== ENCOUNTER 2021-07-30 10:04 | Emergency (ER) | payer MEDICAID ==
[2021-07-30] MEDS ORDERED: Acetaminophen/oxyCODONE 325-5 MG Tab PO ONE (10:11)
[2021-07-30 10:14] VITALS: BP 116/90; PULSE 64
--- NOTE | 2021-07-30 10:17 | EDM.PDOC ---
ED HPI GENERAL MEDICAL PROBLEM - General Chief Complaint: Flank Pain Stated Complaint: FLANK PAIN Time Seen by Provider: 07/30/21 10:15 Source of Information: Reports: Patient, Old Records, RN, RN Notes Reviewed History Limitations: Reports: No Limitations - History of Present Illness INITIAL COMMENTS - FREE TEXT/NARRATIVE: Pt presents to ER with c/o flare up of chronic flank pain and recurrent hematuria. Pt has history of HSP, and Loin Pain Hematuria Syndrome. Denies fever, or any new symptoms. Pt has a pain management agreement in place with the hospital/ED. Pt rates the current pain /. Duration: Chronic, Recurring Location: Reports: Abdomen, Back Quality: Reports: Same as Previous Episode Severity: Severe Improves with: Reports: None Worsens with: Reports: None Associated Symptoms: Reports: No Other Symptoms Treatments HOG CUTTER: Reports: Acetaminophen Bilateral Flank Pain Score (Numeric/FACES): 7 - Related Data Allergies Allergy/AdvReac Type Severity Reaction Status Date / Time amoxicillin [Amoxicillin] Allergy Rash Verified 07/30/21 10:11 bee venom protein (honey bee) Allergy Cannot Verified 07/30/21 10:11 Remember butorphanol [From Stadol] Allergy Hallucinati Verified 07/30/21 10:11 ons haloperidol [From Haldol] Allergy Hallucinati Verified 07/30/21 10:11 ons ketorolac tromethamine Allergy Rash Verified 07/30/21 10:11 [From Toradol] metoclopramide [From Reglan] Allergy Agitation Verified 07/30/21 10:11 promethazine HCl Allergy Hallucinati Verified 07/30/21 10:11 [From Phenergan] ons tramadol HCl [From Ultram] Allergy Rash Verified 07/30/21 10:11 Home Meds: Home Meds Tamsulosin HCl [Flomax] 0.4 mg PO DAILY 05/30/20 [History] Ondansetron [Zofran] 8 mg PO TID PRN 06/21/20 [History] Acetaminophen [Tylenol] 650 mg PO Q4HR PRN 12/28/20 [History] metFORMIN HCl [Metformin ER Gastric] 1,000 mg PO BID 02/28/21 [History] Losartan [Cozaar] 25 mg PO DAILY 06/27/21 [History] Past Medical History - Past Health History Medical/Surgical History: Denies Medical/Surgical History HEENT History: Reports: None Cardiovascular History: Reports: High Cholesterol, Hypertension Respiratory History: Reports: None Gastrointestinal History: Reports: Cholelithiasis, Gastritis, GERD Other Gastrointestinal History: gallbladder pain Genitourinary History: Reports: Renal Calculus, Other (See Below) 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 Hematologic History: Reports: None Immunologic History: Reports: None Oncologic (Cancer) History: Reports: None Dermatologic History: Reports: None - Infectious Disease History Infectious Disease History: Reports: Chicken Pox, Novel Coronavirus - Past Surgical History Head Surgeries/Procedures: Reports: None HEENT Surgical History: Reports: None Cardiovascular Surgical History: Reports: None GI Surgical History: Reports: Appendectomy, Cholecystectomy Male Surgical History: Reports: Circumcision Other Male Surgeries/Procedures: Has had kidney biopsy Musculoskeletal Surgical History: Reports: Other (See Below) Other Musculoskeletal Surgeries/Procedures:: left arm Social & Family History - Family History Family Medical History: No Pertinent Family History - Caffeine Use Caffeine Use: Reports: Coffee Caffeine Use Comment: Occasional - Living Situation & Occupation Living situation: Reports: Single, Alone Occupation: Employed ED ROS GENERAL - Review of Systems Review Of Systems: Comprehensive ROS is negative, except as noted in HPI. ED EXAM, RENAL/ - Physical Exam Exam: See Below Exam Limited By: No Limitations General Appearance: Alert, WD/WN, No Apparent Distress, Obese Throat/Mouth: Normal Inspection Head: Atraumatic, Normocephalic Respiratory/Chest: No Respiratory Distress, Lungs Clear Cardiovascular: Regular Rate, Rhythm GI/Abdominal: Normal Bowel Sounds, Soft, Tender (Mild LUQ/LLQ tenderness). No: Guarding, Rigid, Rebound Back Exam: CVA Tenderness (L), CVA Tenderness (R). No: Vertebral Tenderness Extremities: Normal Inspection Neurological: Alert, Oriented, No Motor/Sensory Deficits Psychiatric: Normal Mood Skin Exam: Warm, Dry, Intact, Normal Color, No Rash. No: Ecchymosis, Jaundice, Petechiae Course - Vital Signs Last Recorded V/S: Last Vital Signs Temp 97.3 F 07/30/21 10:12 Pulse 64 07/30/21 10:12 Resp 18 07/30/21 10:12 BP 116/90 07/30/21 10:12 Pulse Ox 98 07/30/21 10:12 - Orders/Labs/Meds Meds: Medications Discontinued Medications Generic Name Dose Route Start Last Admin Trade Name Chavo PRN Reason Stop Dose Admin Oxycodone/Acetaminophen 2 tab 07/30/21 10:11 Acetaminophen/Oxycodone 325-5 Mg Tab PO 07/30/21 10:12 ONETIME ONE - Re-Assessments/Exams Free Text/Narrative Re-Assessment/Exam: 07/30/21 The pt's pain management plan with the ED reviewed. Pt has had one previous visit this month at which time he received an injection of Dilaudid. In keeping with his plan, he will receive oral Percocet 5mg/325mg 2 tablets, single dose. Departure - Departure Time of Disposition: 10:30 Disposition: Home, Self-Care 01 Condition: Good Clinical Impression: History of Henoch-Schonlein purpura, Loin pain hematuria syndrome - Discharge Information *PRESCRIPTION DRUG MONITORING PROGRAM REVIEWED*: No *COPY OF PRESCRIPTION DRUG MONITORING REPORT IN PATIENT NICO: No Instructions: Flank Pain, Adult Forms: ED Department Discharge Additional Instructions: Follow up in clinic as planned. Sepsis Event Note (ED) - Evaluation Sepsis Screening Result: No Definite Risk - Focused Exam Vital Signs: Vital Signs Temp Pulse Resp BP Pulse Ox 07/30/21 10:12 97.3 F 64 18 116/90 98
== END 2021-07-30 10:22 | disposition home or self-care (01) ==
LOC: DL.ED 10:04
DX: M54.50 Low back pain, unspecified (principal); R31.9 Hematuria, unspecified; I10 Essential (primary) hypertension; E11.9 Type 2 diabetes mellitus without complications; E66.9 Obesity, unspecified; Z68.41 Body mass index [BMI] 40.0-44.9, adult; Z86.16 Personal history of COVID-19; Z88.0 Allergy status to penicillin; Z91.030 Bee allergy status; Z88.8 Allergy status to other drugs, medicaments and biological substances; Z88.5 Allergy status to narcotic agent; Z79.84 Long term (current) use of oral hypoglycemic drugs; Z79.899 Other long term (current) drug therapy
CPT/HCPCS: 99283; A9270

== ENCOUNTER 2021-08-22 11:56 | Emergency (ER) | payer MEDICAID ==
[2021-08-22 12:23] VITALS: BP 116/65; PULSE 86
[2021-08-22 12:51] LABS: AMPHETAMINES,URINE NEGATIVE (NEGATIVE); BARBITURATES,URINE NEGATIVE (NEGATIVE); BENZODIAZEPINE,URINE NEGATIVE (NEGATIVE); MDMA (ECSTASY), URINE NEGATIVE (NEGATIVE); METHADONE,URINE NEGATIVE (NEGATIVE); METHAMPHETAMINES,URINE NEGATIVE (NEGATIVE); OPIATES,URINE NEGATIVE (NEGATIVE); OXYCODONE,URINE NEGATIVE (NEGATIVE); PHENCYCLIDINE,URINE NEGATIVE (NEGATIVE); TCA,URINE NEGATIVE (NEGATIVE)
[2021-08-22] MEDS ORDERED: methylPREDNISolone Sodium Succinate 125 MG/2 ML SDV IM ONE (13:10)
[2021-08-22] MEDS ORDERED: HYDROmorphone 1 MG/ML Syringe IM ONE (13:11)
== END 2021-08-22 13:29 | disposition home or self-care (01) ==
LOC: DL.ED 11:56
DX: M54.50 Low back pain, unspecified (principal); R31.9 Hematuria, unspecified; I10 Essential (primary) hypertension; E11.9 Type 2 diabetes mellitus without complications; E66.9 Obesity, unspecified; Z68.41 Body mass index [BMI] 40.0-44.9, adult; Z86.16 Personal history of COVID-19; Z88.0 Allergy status to penicillin; Z91.030 Bee allergy status; Z88.8 Allergy status to other drugs, medicaments and biological substances; Z88.5 Allergy status to narcotic agent; Z79.84 Long term (current) use of oral hypoglycemic drugs; Z79.899 Other long term (current) drug therapy
CPT/HCPCS: 80305; 81001; 96372; 99284; J1170; J2930

== ENCOUNTER 2021-08-23 11:26 | Emergency (ER) | payer MEDICAID ==
[2021-08-23 12:29] LABS: CHLORIDE,CL 105 mmol/L (98-107); SODIUM,NA 142 mmol/L (136-145)
[2021-08-23 14:27] LABS: AMPHETAMINES,URINE NEGATIVE (NEGATIVE); BARBITURATES,URINE NEGATIVE (NEGATIVE); BENZODIAZEPINE,URINE NEGATIVE (NEGATIVE); MDMA (ECSTASY), URINE NEGATIVE (NEGATIVE); METHADONE,URINE NEGATIVE (NEGATIVE); METHAMPHETAMINES,URINE NEGATIVE (NEGATIVE); OPIATES,URINE NEGATIVE (NEGATIVE); OXYCODONE,URINE NEGATIVE (NEGATIVE); PHENCYCLIDINE,URINE NEGATIVE (NEGATIVE); TCA,URINE NEGATIVE (NEGATIVE)
[2021-08-23] MEDS ORDERED: Iopamidol 612 MG/ML 100 ML Bottle IVPUSH ONE (15:15)
[2021-08-23] MEDS ORDERED: HYDROmorphone 1 MG/ML Syringe IVPUSH ONE (15:15)
[2021-08-23 16:29] VITALS: BP 115/64; PULSE 65
[2021-08-23] MEDS ORDERED: HYDROmorphone 0.5 MG/0.5 ML Syringe IVPUSH ONE (17:29)
== END 2021-08-23 17:55 | disposition home or self-care (01) ==
LOC: DL.ED 11:26
DX: R10.11 Right upper quadrant pain (principal); M54.50 Low back pain, unspecified; R31.9 Hematuria, unspecified; I10 Essential (primary) hypertension; E11.9 Type 2 diabetes mellitus without complications; E66.9 Obesity, unspecified; Z68.38 Body mass index [BMI] 38.0-38.9, adult; Z88.0 Allergy status to penicillin; Z91.030 Bee allergy status; Z88.8 Allergy status to other drugs, medicaments and biological substances; Z88.5 Allergy status to narcotic agent; Z79.84 Long term (current) use of oral hypoglycemic drugs; Z79.899 Other long term (current) drug therapy
CPT/HCPCS: 36415; 74177; 80053; 80305; 81001; 85025; 87086; 96374; 96376; 99284; J1170; Q9967; 99285

== ENCOUNTER 2021-08-29 17:27 | Emergency (ER) | payer MEDICAID ==
--- NOTE | 2021-08-29 18:20 | EDM.PDOC ---
ED HPI GENERAL MEDICAL PROBLEM - General Chief Complaint: Genitourinary Problem Stated Complaint: KIDNEY PAIN Time Seen by Provider: 08/29/21 18:20 Source of Information: Reports: Patient, Old Records, RN, RN Notes Reviewed History Limitations: Reports: No Limitations - History of Present Illness INITIAL COMMENTS - FREE TEXT/NARRATIVE: Pt arrives to ER by ambulance with c/o severe B/L flank pain and low back pain with pain radiating to LLQ and penis/scrotum. Pt reports onset of gross hematuria this morning. He has an appointment with a [facility] urologist in [place] on 09/02/20. Pt denies fever, chills, or rash. Pt has Hx of HSP and loin pain hematuria syndrome. 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 Pt has a pain contract with this facility for a maximum of 2 visits per month, and has had 1 of his August visits with an injection already. Duration: Chronic, Recurring Location: Reports: Other (Flank) Quality: Reports: Same as Previous Episode Severity: Severe Improves with: Reports: None Worsens with: Reports: None Generalized Pain Score (Numeric/FACES): 8 - Related Data Allergies Allergy/AdvReac Type Severity Reaction Status Date / Time amoxicillin [Amoxicillin] Allergy Rash Verified 08/29/21 18:27 bee venom protein (honey bee) Allergy Cannot Verified 08/29/21 18:27 Remember butorphanol [From Stadol] Allergy Hallucinati Verified 08/29/21 18:27 ons haloperidol [From Haldol] Allergy Hallucinati Verified 08/29/21 18:27 ons ketorolac tromethamine Allergy Rash Verified 08/29/21 18:27 [From Toradol] metoclopramide [From Reglan] Allergy Agitation Verified 08/29/21 18:27 promethazine HCl Allergy Hallucinati Verified 08/29/21 18:27 [From Phenergan] ons tramadol HCl [From Ultram] Allergy Rash Verified 08/29/21 18:27 Home Meds: Home Meds Ondansetron [Zofran] 8 mg PO TID PRN 06/21/20 [History] Acetaminophen [Tylenol] 650 mg PO Q4HR PRN 12/28/20 [History] metFORMIN HCl [Metformin ER Gastric] 500 mg PO BID 02/28/21 [History] Losartan Potassium 25 mg PO BEDTIME 08/24/21 [History] Amitriptyline [Elavil] 25 mg PO BEDTIME #30 tab 08/25/21 [Rx] Docusate Sodium [Colace] 100 mg PO BID PRN cap 08/25/21 [Rx] Tamsulosin HCl [Flomax] 0.4 mg PO DAILY #30 cap 08/25/21 [Rx] oxyCODONE HCl/Acetaminophen [Oxycodone-Acetaminophen 5-325] 2 tab PO Q6H PRN 8 Days #64 08/25/21 [Rx] Past Medical History - Past Health History Medical/Surgical History: Denies Medical/Surgical History HEENT History: Reports: None Cardiovascular History: Reports: High Cholesterol, Hypertension Respiratory History: Reports: None Gastrointestinal History: Reports: Cholelithiasis, Gastritis, GERD Other Gastrointestinal History: gallbladder pain Genitourinary History: Reports: Renal Calculus, Other (See Below) 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 Hematologic History: Reports: None Immunologic History: Reports: None Oncologic (Cancer) History: Reports: None Dermatologic History: Reports: None - Infectious Disease History Infectious Disease History: Reports: Chicken Pox, Novel Coronavirus - Past Surgical History Head Surgeries/Procedures: Reports: None HEENT Surgical History: Reports: None Cardiovascular Surgical History: Reports: None GI Surgical History: Reports: Appendectomy, Cholecystectomy Male Surgical History: Reports: Circumcision Other Male Surgeries/Procedures: Has had kidney biopsy Musculoskeletal Surgical History: Reports: Other (See Below) Other Musculoskeletal Surgeries/Procedures:: left arm Social & Family History - Family History Family Medical History: No Pertinent Family History - Caffeine Use Caffeine Use: Reports: Soda Caffeine Use Comment: Occasional - Living Situation & Occupation Living situation: Reports: Single, Alone Occupation: Employed ED ROS GENERAL - Review of Systems Review Of Systems: Comprehensive ROS is negative, except as noted in HPI. ED EXAM, RENAL/ - Physical Exam Exam: See Below Exam Limited By: No Limitations General Appearance: Alert, No Apparent Distress, Obese Throat/Mouth: Normal Voice, No Airway Compromise Head: Atraumatic, Normocephalic Neck: Normal Inspection Respiratory/Chest: No Respiratory Distress, Lungs Clear Cardiovascular: Regular Rate, Rhythm GI/Abdominal: Normal Bowel Sounds, Soft, Tender (LLQ tenderness). No: Guarding, Rigid, Rebound Back Exam: Full Range of Motion, CVA Tenderness (L). No: CVA Tenderness (R), Vertebral Tenderness Extremities: Normal Inspection Neurological: Alert, Oriented, No Motor/Sensory Deficits Psychiatric: Normal Mood Skin Exam: Warm, Dry, Intact, Normal Color, No Rash Course - Vital Signs Last Recorded V/S: Last Vital Signs Temp 98.4 F 08/29/21 18:24 Pulse 64 08/29/21 18:24 Resp 14 08/29/21 18:24 BP 117/75 08/29/21 18:24 Pulse Ox 97 08/29/21 18:24 - Orders/Labs/Meds Orders: Active Orders 24 hr Category Date Time Status Acetaminophen/oxyCODONE [Percocet 325-5 MG] Med 08/29/21 18:34 Once 2 tab PO ONETIME ONE Medication Orders Oxycodone/Acetaminophen (Acetaminophen/Oxycodone 325-5 Mg Tab) 2 tab PO ONETIME ONE Stop: 08/29/21 18:35 Meds: Medications Generic Name Dose Route Start Last Admin Trade Name Freq PRN Reason Stop Dose Admin Oxycodone/Acetaminophen 2 tab 08/29/21 18:34 Acetaminophen/Oxycodone 325-5 Mg Tab PO 08/29/21 18:35 ONETIME ONE Discontinued Medications Generic Name Dose Route Start Last Admin Trade Name Freq PRN Reason Stop Dose Admin Tamsulosin HCl 0.4 mg 08/29/21 18:23 Tamsulosin 0.4 Mg Cap.Er PO 08/29/21 18:24 ONETIME ONE Departure - Departure Time of Disposition: 18:35 Disposition: Home, Self-Care 01 Condition: Good Clinical Impression: Loin pain hematuria syndrome, History of Henoch-Schonlein purpura - Discharge Information *PRESCRIPTION DRUG MONITORING PROGRAM REVIEWED*: Not Applicable *COPY OF PRESCRIPTION DRUG MONITORING REPORT IN PATIENT NICO: Not Applicable Instructions: Hematuria, Adult Forms: ED Department Discharge Additional Instructions: The pharmacy has confirmed you have a Flomax prescription available at [facility] at this time. Sepsis Event Note (ED) - Focused Exam Vital Signs: Vital Signs Temp Pulse Resp BP Pulse Ox 08/29/21 18:24 98.4 F 64 14 117/75 97 - My Orders Last 24 Hours: My Active Orders 08/29/21 18:34 Acetaminophen/oxyCODONE [Percocet 325-5 MG] 2 tab PO ONETIME ONE - Assessment/Plan Last 24 Hours: My Active Orders 08/29/21 18:34 Acetaminophen/oxyCODONE [Percocet 325-5 MG] 2 tab PO ONETIME ONE
[2021-08-29] MEDS ORDERED: Tamsulosin 0.4 MG Cap.ER PO ONE (18:23)
[2021-08-29 18:27] VITALS: BP 117/75; PULSE 64
[2021-08-29] MEDS ORDERED: Acetaminophen/oxyCODONE 325-5 MG Tab PO ONE (18:34)
== END 2021-08-29 18:45 | disposition home or self-care (01) ==
LOC: DL.ED 17:27
DX: M54.50 Low back pain, unspecified (principal); R31.9 Hematuria, unspecified; E78.00 Pure hypercholesterolemia, unspecified; I10 Essential (primary) hypertension; E11.9 Type 2 diabetes mellitus without complications; E66.9 Obesity, unspecified; Z68.41 Body mass index [BMI] 40.0-44.9, adult; Z88.0 Allergy status to penicillin; Z91.030 Bee allergy status; Z88.5 Allergy status to narcotic agent; Z79.899 Other long term (current) drug therapy
CPT/HCPCS: 99283; A9270

== ENCOUNTER 2021-09-27 09:40 | Emergency (ER) | payer MEDICAID ==
[2021-09-27] MEDS ORDERED: HYDROmorphone 1 MG/ML Syringe IM ONE (10:03)
[2021-09-27 10:14] VITALS: BP 126/75; PULSE 62
== END 2021-09-27 10:15 | disposition home or self-care (01) ==
LOC: DL.ED 09:40
DX: M54.50 Low back pain, unspecified (principal); G89.4 Chronic pain syndrome; R31.9 Hematuria, unspecified; I10 Essential (primary) hypertension; E11.9 Type 2 diabetes mellitus without complications; E66.9 Obesity, unspecified; Z68.41 Body mass index [BMI] 40.0-44.9, adult; Z88.0 Allergy status to penicillin; Z91.030 Bee allergy status; Z88.8 Allergy status to other drugs, medicaments and biological substances; Z88.5 Allergy status to narcotic agent; Z79.84 Long term (current) use of oral hypoglycemic drugs; Z79.899 Other long term (current) drug therapy
CPT/HCPCS: 96372; 99283; J1170; 99284

== ENCOUNTER 2021-09-28 12:06 | Emergency (ER) | payer MEDICAID ==
[2021-09-28 12:21] VITALS: BP 134/87; PULSE 59
== END 2021-09-28 12:33 | disposition left against medical advice (07) ==
LOC: DL.ED 12:06
DX: R31.9 Hematuria, unspecified (principal); E11.9 Type 2 diabetes mellitus without complications; I10 Essential (primary) hypertension; E66.9 Obesity, unspecified; Z68.42 Body mass index [BMI] 45.0-49.9, adult; Z88.0 Allergy status to penicillin; Z91.030 Bee allergy status; Z88.6 Allergy status to analgesic agent; Z88.5 Allergy status to narcotic agent; Z88.8 Allergy status to other drugs, medicaments and biological substances; Z79.84 Long term (current) use of oral hypoglycemic drugs; Z79.899 Other long term (current) drug therapy; Z53.8 Procedure and treatment not carried out for other reasons
CPT/HCPCS: 99282; 99283

== ENCOUNTER 2021-10-03 07:37 | Emergency (ER) | payer MEDICAID ==
[2021-10-03 08:02] VITALS: BP 145/80; PULSE 69
[2021-10-03] MEDS ORDERED: Acetaminophen/oxyCODONE 325-5 MG Tab PO ONE (08:03)
[2021-10-03] MEDS ORDERED: Sodium Chloride 0.9% 10 ML Syringe FLUSH PRN (08:08)
[2021-10-03] MEDS ORDERED: Sodium Chloride 0.9% 1,000 ML IV ONE (08:08)
[2021-10-03] MEDS ORDERED: Ondansetron 4 MG/2 ML SDV IV ONE (08:08)
[2021-10-03 08:47] LABS: PTT,PARTIAL THROMBOPLSTIN TIME 27.9 SEC (22.0-34.0)
[2021-10-03 08:50] LABS: ANION GAP 13.3 mEq/L (7-13); CHLORIDE,CL 106 mmol/L (98-107); SODIUM,NA 140 mmol/L (136-145)
== END 2021-10-03 09:55 | disposition home or self-care (01) ==
LOC: DL.ED 07:37
DX: R10.9 Unspecified abdominal pain (principal); G89.4 Chronic pain syndrome; M54.50 Low back pain, unspecified; R31.9 Hematuria, unspecified; E78.00 Pure hypercholesterolemia, unspecified; I10 Essential (primary) hypertension; K21.9 Gastro-esophageal reflux disease without esophagitis; E11.9 Type 2 diabetes mellitus without complications; E66.9 Obesity, unspecified; Z68.30 Body mass index [BMI] 30.0-30.9, adult; Z88.0 Allergy status to penicillin; Z88.5 Allergy status to narcotic agent; Z88.6 Allergy status to analgesic agent; Z91.030 Bee allergy status; Z79.899 Other long term (current) drug therapy
CPT/HCPCS: 36415; 80053; 85025; 85610; 85730; 96374; 99284; A9270; J2405; J7030

== ENCOUNTER 2021-10-25 08:09 | Emergency (ER) | payer MEDICAID ==
[2021-10-25 08:21] VITALS: BP 145/83; PULSE 70
[2021-10-25] MEDS ORDERED: HYDROmorphone 1 MG/ML Syringe IM ONE (08:22)
== END 2021-10-25 08:39 | disposition home or self-care (01) ==
LOC: DL.ED 08:09
DX: G89.4 Chronic pain syndrome (principal); M54.50 Low back pain, unspecified; R31.9 Hematuria, unspecified; E78.00 Pure hypercholesterolemia, unspecified; I10 Essential (primary) hypertension; E11.9 Type 2 diabetes mellitus without complications; K21.9 Gastro-esophageal reflux disease without esophagitis; E66.9 Obesity, unspecified; Z68.41 Body mass index [BMI] 40.0-44.9, adult; Z88.0 Allergy status to penicillin; Z91.030 Bee allergy status; Z88.6 Allergy status to analgesic agent; Z88.5 Allergy status to narcotic agent; Z79.84 Long term (current) use of oral hypoglycemic drugs; Z79.899 Other long term (current) drug therapy
CPT/HCPCS: 96372; 99283; J1170

== ENCOUNTER 2021-10-28 02:38 | Emergency (ER) | payer MEDICAID ==
[2021-10-28] MEDS ORDERED: HYDROmorphone 1 MG/ML Syringe IM ONE (02:54)
[2021-10-28 03:01] LABS: AMPHETAMINES,URINE NEGATIVE (NEGATIVE); BARBITURATES,URINE NEGATIVE (NEGATIVE); BENZODIAZEPINE,URINE NEGATIVE (NEGATIVE); MDMA (ECSTASY), URINE NEGATIVE (NEGATIVE); METHADONE,URINE NEGATIVE (NEGATIVE); METHAMPHETAMINES,URINE NEGATIVE (NEGATIVE); OPIATES,URINE NEGATIVE (NEGATIVE); OXYCODONE,URINE POSITIVE (NEGATIVE); PHENCYCLIDINE,URINE NEGATIVE (NEGATIVE); TCA,URINE NEGATIVE (NEGATIVE)
[2021-10-28 03:15] VITALS: BP 134/79; PULSE 63
== END 2021-10-28 03:19 | disposition home or self-care (01) ==
LOC: DL.ED 02:38
DX: R31.9 Hematuria, unspecified (principal); G89.4 Chronic pain syndrome; E11.9 Type 2 diabetes mellitus without complications; I10 Essential (primary) hypertension; E66.9 Obesity, unspecified; Z68.41 Body mass index [BMI] 40.0-44.9, adult; Z88.0 Allergy status to penicillin; Z88.8 Allergy status to other drugs, medicaments and biological substances; Z91.030 Bee allergy status; Z79.84 Long term (current) use of oral hypoglycemic drugs
CPT/HCPCS: 80305; 81001; 96372; 99283; 99284; J1170

== ENCOUNTER 2021-11-25 07:13 | Emergency (ER) | payer MEDICAID, OTHER, SELFPAY ==
[2021-11-25] MEDS ORDERED: HYDROmorphone 1 MG/ML Syringe IM ONE (07:23)
[2021-11-25 07:54] VITALS: BP 133/85; PULSE 65
== END 2021-11-25 07:34 | disposition home or self-care (01) ==
LOC: DL.ED 07:13
DX: R10.9 Unspecified abdominal pain (principal); G89.4 Chronic pain syndrome; R31.9 Hematuria, unspecified; M54.50 Low back pain, unspecified; E78.00 Pure hypercholesterolemia, unspecified; I10 Essential (primary) hypertension; K21.9 Gastro-esophageal reflux disease without esophagitis; E11.9 Type 2 diabetes mellitus without complications; E66.9 Obesity, unspecified; Z88.0 Allergy status to penicillin; Z91.030 Bee allergy status; Z88.5 Allergy status to narcotic agent; Z79.899 Other long term (current) drug therapy; Z79.84 Long term (current) use of oral hypoglycemic drugs; Z68.41 Body mass index [BMI] 40.0-44.9, adult
CPT/HCPCS: 96372; 99283; 99284; J1170

== ENCOUNTER 2021-11-28 19:48 | Emergency (ER) | payer MEDICAID | END 2021-11-28 20:10 | disposition left against medical advice (07) | LOC: DL.ED 19:48 | DX: Z53.21 Procedure and treatment not carried out due to patient leaving prior to being seen by health care provider (principal) ==

== ENCOUNTER 2021-11-29 06:24 | Emergency (ER) | payer MEDICAID ==
[2021-11-29 06:40] VITALS: BP 119/79; PULSE 70
[2021-11-29] MEDS ORDERED: Acetaminophen/oxyCODONE 325-5 MG Tab PO ONE (06:51)
== END 2021-11-29 07:05 | disposition home or self-care (01) ==
LOC: DL.ED 06:24
DX: G89.4 Chronic pain syndrome (principal); M54.50 Low back pain, unspecified; R31.9 Hematuria, unspecified; E78.00 Pure hypercholesterolemia, unspecified; I10 Essential (primary) hypertension; K21.9 Gastro-esophageal reflux disease without esophagitis; E11.9 Type 2 diabetes mellitus without complications; E66.9 Obesity, unspecified; Z88.0 Allergy status to penicillin; Z68.1 Body mass index [BMI] 19.9 or less, adult; Z88.5 Allergy status to narcotic agent; Z91.030 Bee allergy status; Z88.6 Allergy status to analgesic agent; Z79.84 Long term (current) use of oral hypoglycemic drugs; Z79.899 Other long term (current) drug therapy
CPT/HCPCS: 81001; 99283; A9270

== ENCOUNTER 2021-12-04 08:56 | Emergency (ER) | payer MEDICAID | END 2021-12-04 09:35 | disposition left against medical advice (07) | LOC: DL.ED 08:56 | DX: Z53.21 Procedure and treatment not carried out due to patient leaving prior to being seen by health care provider (principal) ==

== ENCOUNTER 2021-12-04 10:56 | Emergency (ER) | payer MEDICAID ==
[2021-12-04 11:08] VITALS: BP 128/88; PULSE 76
[2021-12-04] MEDS ORDERED: Sodium Chloride 0.9% 10 ML Syringe FLUSH PRN (11:14)
[2021-12-04] MEDS ORDERED: Sodium Chloride 0.9% 1,000 ML IV ONE (11:15)
[2021-12-04] MEDS ORDERED: Ondansetron 4 MG/2 ML SDV IVPUSH ONE (11:16)
[2021-12-04 11:41] LABS: ANION GAP 15.8 mEq/L (7-13); CHLORIDE,CL 106 mmol/L (98-107); SODIUM,NA 142 mmol/L (136-145)
== END 2021-12-04 12:32 | disposition home or self-care (01) ==
LOC: DL.ED 10:56
DX: A08.4 Viral intestinal infection, unspecified (principal); E78.00 Pure hypercholesterolemia, unspecified; I10 Essential (primary) hypertension; E11.9 Type 2 diabetes mellitus without complications; Z90.49 Acquired absence of other specified parts of digestive tract; Z91.030 Bee allergy status; Z88.8 Allergy status to other drugs, medicaments and biological substances; Z79.84 Long term (current) use of oral hypoglycemic drugs; Z79.899 Other long term (current) drug therapy
CPT/HCPCS: 36415; 80053; 82150; 83690; 85025; 96374; 99284; J2405; J7030

== ENCOUNTER 2021-12-27 17:27 | Emergency (ER) | payer MEDICAID | END 2021-12-27 18:45 | disposition left against medical advice (07) | LOC: DL.ED 17:27 | DX: Z53.21 Procedure and treatment not carried out due to patient leaving prior to being seen by health care provider (principal) ==

== ENCOUNTER 2021-12-28 05:22 | Emergency (ER) | payer MEDICAID ==
[2021-12-28] MEDS ORDERED: HYDROmorphone 1 MG/ML Syringe IM ONE (05:56)
[2021-12-28 06:26] VITALS: BP 136/72; PULSE 58
[2021-12-28 06:46] LABS: AMPHETAMINES,URINE NEGATIVE (NEGATIVE); BARBITURATES,URINE NEGATIVE (NEGATIVE); BENZODIAZEPINE,URINE NEGATIVE (NEGATIVE); MDMA (ECSTASY), URINE NEGATIVE (NEGATIVE); METHADONE,URINE NEGATIVE (NEGATIVE); METHAMPHETAMINES,URINE NEGATIVE (NEGATIVE); OPIATES,URINE NEGATIVE (NEGATIVE); OXYCODONE,URINE NEGATIVE (NEGATIVE); PHENCYCLIDINE,URINE NEGATIVE (NEGATIVE); TCA,URINE NEGATIVE (NEGATIVE)
== END 2021-12-28 06:26 | disposition home or self-care (01) ==
LOC: DL.ED 05:22
DX: R10.9 Unspecified abdominal pain (principal); M54.50 Low back pain, unspecified; R31.9 Hematuria, unspecified; E78.00 Pure hypercholesterolemia, unspecified; I10 Essential (primary) hypertension; K21.9 Gastro-esophageal reflux disease without esophagitis; E11.9 Type 2 diabetes mellitus without complications; E66.9 Obesity, unspecified; Z88.0 Allergy status to penicillin; Z91.030 Bee allergy status; Z88.8 Allergy status to other drugs, medicaments and biological substances; Z88.5 Allergy status to narcotic agent; Z88.6 Allergy status to analgesic agent; Z79.84 Long term (current) use of oral hypoglycemic drugs; Z79.899 Other long term (current) drug therapy; Z72.0 Tobacco use; Z68.41 Body mass index [BMI] 40.0-44.9, adult
CPT/HCPCS: 80305-QW; 81001; 96372; 99283; J1170

== ENCOUNTER 2021-12-29 17:30 | Emergency (ER) | payer MEDICAID | END 2021-12-29 17:54 | disposition left against medical advice (07) | LOC: DL.ED 17:30 | DX: Z53.21 Procedure and treatment not carried out due to patient leaving prior to being seen by health care provider (principal) ==

== ENCOUNTER 2021-12-30 07:40 | Emergency (ER) | payer MEDICAID ==
[2021-12-30] MEDS ORDERED: Acetaminophen/oxyCODONE 325-5 MG Tab PO ONE (07:51)
[2021-12-30 07:58] VITALS: BP 123/70; PULSE 80
== END 2021-12-30 08:05 | disposition home or self-care (01) ==
LOC: DL.ED 07:40
DX: R10.9 Unspecified abdominal pain (principal); M54.50 Low back pain, unspecified; R31.9 Hematuria, unspecified; G89.4 Chronic pain syndrome; E78.00 Pure hypercholesterolemia, unspecified; I10 Essential (primary) hypertension; K21.9 Gastro-esophageal reflux disease without esophagitis; E11.9 Type 2 diabetes mellitus without complications; E66.9 Obesity, unspecified; Z88.0 Allergy status to penicillin; Z91.030 Bee allergy status; Z88.5 Allergy status to narcotic agent; Z88.6 Allergy status to analgesic agent; Z88.8 Allergy status to other drugs, medicaments and biological substances; Z79.84 Long term (current) use of oral hypoglycemic drugs; Z79.899 Other long term (current) drug therapy; Z68.41 Body mass index [BMI] 40.0-44.9, adult
CPT/HCPCS: 99283; A9270

== ENCOUNTER 2022-01-24 08:17 | Emergency (ER) | payer MEDICAID ==
[2022-01-24 08:39] VITALS: BP 131/86; PULSE 55
[2022-01-24] MEDS ORDERED: Lidocaine 5% 700 MG Patch TOP ONE (08:51)
[2022-01-24 08:59] LABS: AMPHETAMINES,URINE NEGATIVE (NEGATIVE); BARBITURATES,URINE NEGATIVE (NEGATIVE); BENZODIAZEPINE,URINE NEGATIVE (NEGATIVE); MDMA (ECSTASY), URINE NEGATIVE (NEGATIVE); METHADONE,URINE NEGATIVE (NEGATIVE); METHAMPHETAMINES,URINE NEGATIVE (NEGATIVE); OPIATES,URINE NEGATIVE (NEGATIVE); OXYCODONE,URINE NEGATIVE (NEGATIVE); PHENCYCLIDINE,URINE NEGATIVE (NEGATIVE); TCA,URINE NEGATIVE (NEGATIVE)
== END 2022-01-24 09:29 | disposition home or self-care (01) ==
LOC: DL.ED 08:17
DX: R10.9 Unspecified abdominal pain (principal); G89.4 Chronic pain syndrome; M54.50 Low back pain, unspecified; R31.9 Hematuria, unspecified; E78.00 Pure hypercholesterolemia, unspecified; I10 Essential (primary) hypertension; Z88.0 Allergy status to penicillin; Z91.030 Bee allergy status; Z88.6 Allergy status to analgesic agent; Z88.5 Allergy status to narcotic agent; Z79.899 Other long term (current) drug therapy; Z79.84 Long term (current) use of oral hypoglycemic drugs
CPT/HCPCS: 80305; 81001; 99283; A9270

== ENCOUNTER 2022-01-25 07:53 | Emergency (ER) | payer MEDICAID ==
[2022-01-25 08:09] VITALS: BP 121/93; PULSE 62
[2022-01-25] MEDS ORDERED: Acetaminophen/oxyCODONE 325-5 MG Tab PO ONE (08:18)
== END 2022-01-25 08:40 | disposition home or self-care (01) ==
LOC: DL.ED 07:53
DX: R10.9 Unspecified abdominal pain (principal); R31.9 Hematuria, unspecified; M54.50 Low back pain, unspecified; E78.00 Pure hypercholesterolemia, unspecified; I10 Essential (primary) hypertension; K21.9 Gastro-esophageal reflux disease without esophagitis; E11.9 Type 2 diabetes mellitus without complications; E66.9 Obesity, unspecified; Z68.41 Body mass index [BMI] 40.0-44.9, adult; Z88.0 Allergy status to penicillin; Z91.030 Bee allergy status; Z88.5 Allergy status to narcotic agent; Z88.6 Allergy status to analgesic agent; Z79.84 Long term (current) use of oral hypoglycemic drugs; Z79.899 Other long term (current) drug therapy; Z86.16 Personal history of COVID-19
CPT/HCPCS: 99283; 99284; A9270

== ENCOUNTER 2022-01-26 06:52 | Emergency (ER) | payer MEDICAID ==
[2022-01-26 07:24] VITALS: BP 124/81; PULSE 72
[2022-01-26] MEDS ORDERED: Ondansetron 4 MG Tab.DIS PO ONE (07:48)
[2022-01-26] MEDS ORDERED: Acetaminophen/oxyCODONE 325-5 MG Tab PO ONE (07:48)
[2022-01-26 08:00] LABS: AMPHETAMINES,URINE NEGATIVE (NEGATIVE); BARBITURATES,URINE NEGATIVE (NEGATIVE); BENZODIAZEPINE,URINE NEGATIVE (NEGATIVE); MDMA (ECSTASY), URINE NEGATIVE (NEGATIVE); METHADONE,URINE NEGATIVE (NEGATIVE); METHAMPHETAMINES,URINE NEGATIVE (NEGATIVE); OPIATES,URINE NEGATIVE (NEGATIVE); OXYCODONE,URINE POSITIVE (NEGATIVE); PHENCYCLIDINE,URINE NEGATIVE (NEGATIVE); TCA,URINE NEGATIVE (NEGATIVE)
== END 2022-01-26 08:10 | disposition home or self-care (01) ==
LOC: DL.ED 06:52
DX: R10.9 Unspecified abdominal pain (principal); G89.4 Chronic pain syndrome; R31.9 Hematuria, unspecified; M54.50 Low back pain, unspecified; E78.00 Pure hypercholesterolemia, unspecified; I10 Essential (primary) hypertension; K21.9 Gastro-esophageal reflux disease without esophagitis; E11.9 Type 2 diabetes mellitus without complications; E66.9 Obesity, unspecified; Z68.41 Body mass index [BMI] 40.0-44.9, adult; Z86.16 Personal history of COVID-19; Z88.0 Allergy status to penicillin; Z91.030 Bee allergy status; Z88.8 Allergy status to other drugs, medicaments and biological substances; Z88.6 Allergy status to analgesic agent; Z88.5 Allergy status to narcotic agent; Z79.84 Long term (current) use of oral hypoglycemic drugs; Z79.899 Other long term (current) drug therapy
CPT/HCPCS: 80305; 81001; 99283; 99284; A9270

== ENCOUNTER 2022-02-04 00:13 | Emergency (ER) | payer MEDICAID ==
[2022-02-04] MEDS ORDERED: Ondansetron 4 MG/2 ML SDV IVPUSH ONE ×2 (00:20→03:11)
[2022-02-04 01:38] LABS: ANION GAP 7.3 mEq/L (7-13); CHLORIDE,CL 102 mmol/L (98-107); SODIUM,NA 135 mmol/L (136-145)
[2022-02-04 01:49] LABS: ESTIMATED GFR > 60
[2022-02-04 01:50] LABS: ACETAMINOPHEN 0 ug/mL (10-30 (Therapeutic))
[2022-02-04 02:10] VITALS: BP 119/85; PULSE 50
[2022-02-04] MEDS ORDERED: HYDROmorphone 0.5 MG/0.5 ML Syringe IVPUSH ONE (03:11)
[2022-02-04 03:30] LABS: AMPHETAMINES,URINE NEGATIVE (NEGATIVE); BARBITURATES,URINE NEGATIVE (NEGATIVE); BENZODIAZEPINE,URINE NEGATIVE (NEGATIVE); MDMA (ECSTASY), URINE NEGATIVE (NEGATIVE); METHADONE,URINE NEGATIVE (NEGATIVE); METHAMPHETAMINES,URINE NEGATIVE (NEGATIVE); OPIATES,URINE NEGATIVE (NEGATIVE); OXYCODONE,URINE POSITIVE (NEGATIVE); PHENCYCLIDINE,URINE NEGATIVE (NEGATIVE); TCA,URINE NEGATIVE (NEGATIVE)
== END 2022-02-04 03:30 | disposition home or self-care (01) ==
LOC: DL.ED 00:13
DX: R07.2 Precordial pain (principal); R11.2 Nausea with vomiting, unspecified; I10 Essential (primary) hypertension; E11.9 Type 2 diabetes mellitus without complications; E66.9 Obesity, unspecified; Z68.30 Body mass index [BMI] 30.0-30.9, adult; Z86.16 Personal history of COVID-19; Z90.49 Acquired absence of other specified parts of digestive tract; Z20.822 Contact with and (suspected) exposure to COVID-19; Z88.0 Allergy status to penicillin; Z91.030 Bee allergy status; Z88.8 Allergy status to other drugs, medicaments and biological substances; Z88.5 Allergy status to narcotic agent; Z79.84 Long term (current) use of oral hypoglycemic drugs
CPT/HCPCS: 36415; 71046; 80053; 80143; 80179; 80305; 80307; 81001; 82140; 82150; 83605; 83690; 83735; 84484; 85025; 85379; 85610; 87635; 93005; 96374; 96375; 96376; 99284; J1170; J2405; 93010; U0002

== ENCOUNTER 2022-02-24 07:08 | Emergency (ER) | payer MEDICAID | END 2022-02-24 08:16 | disposition left against medical advice (07) | LOC: DL.ED 07:08 | DX: Z53.21 Procedure and treatment not carried out due to patient leaving prior to being seen by health care provider (principal) ==

== ENCOUNTER 2022-02-24 21:18 | Emergency (ER) | payer MEDICAID ==
[2022-02-24 21:41] VITALS: BP 133/86; PULSE 79
[2022-02-24 22:12] LABS: AMPHETAMINES,URINE NEGATIVE (NEGATIVE); BARBITURATES,URINE NEGATIVE (NEGATIVE); BENZODIAZEPINE,URINE NEGATIVE (NEGATIVE); MDMA (ECSTASY), URINE NEGATIVE (NEGATIVE); METHADONE,URINE NEGATIVE (NEGATIVE); METHAMPHETAMINES,URINE NEGATIVE (NEGATIVE); OPIATES,URINE NEGATIVE (NEGATIVE); OXYCODONE,URINE NEGATIVE (NEGATIVE); PHENCYCLIDINE,URINE NEGATIVE (NEGATIVE); TCA,URINE NEGATIVE (NEGATIVE)
[2022-02-24] MEDS ORDERED: Acetaminophen/oxyCODONE 325-5 MG Tab PO ONE (22:28)
== END 2022-02-24 22:35 | disposition home or self-care (01) ==
LOC: DL.ED 21:18
DX: N05.9 Unspecified nephritic syndrome with unspecified morphologic changes (principal); D69.0 Allergic purpura; E78.00 Pure hypercholesterolemia, unspecified; I10 Essential (primary) hypertension; E11.9 Type 2 diabetes mellitus without complications; K21.9 Gastro-esophageal reflux disease without esophagitis; E66.9 Obesity, unspecified; Z68.30 Body mass index [BMI] 30.0-30.9, adult; Z88.0 Allergy status to penicillin; Z91.030 Bee allergy status; Z88.5 Allergy status to narcotic agent; Z88.6 Allergy status to analgesic agent; Z79.84 Long term (current) use of oral hypoglycemic drugs; Z79.899 Other long term (current) drug therapy; Z86.16 Personal history of COVID-19
CPT/HCPCS: 80305; 81001; 99284; A9270

== ENCOUNTER 2022-02-28 14:53 | Emergency (ER) | payer MEDICAID ==
[2022-02-28 15:03] VITALS: BP 130/78; PULSE 74
[2022-02-28] MEDS ORDERED: HYDROmorphone 1 MG/ML Syringe IM ONE (15:18)
[2022-02-28] MEDS ORDERED: Ondansetron 4 MG Tab.DIS PO ONE (15:19)
== END 2022-02-28 16:05 | disposition home or self-care (01) ==
LOC: DL.ED 14:53
DX: M54.50 Low back pain, unspecified (principal); R31.9 Hematuria, unspecified; I10 Essential (primary) hypertension; E11.9 Type 2 diabetes mellitus without complications; F17.210 Nicotine dependence, cigarettes, uncomplicated; E66.9 Obesity, unspecified; Z68.41 Body mass index [BMI] 40.0-44.9, adult; Z88.0 Allergy status to penicillin; Z91.030 Bee allergy status; Z88.8 Allergy status to other drugs, medicaments and biological substances; Z88.6 Allergy status to analgesic agent; Z79.899 Other long term (current) drug therapy; Z79.84 Long term (current) use of oral hypoglycemic drugs; Z86.16 Personal history of COVID-19; Z90.49 Acquired absence of other specified parts of digestive tract
CPT/HCPCS: 96372; 99283; A9270; J1170

== ENCOUNTER 2022-03-01 11:26 | Emergency (ER) | payer MEDICAID ==
[2022-03-01 13:05] VITALS: BP 172/77; PULSE 58
== END 2022-03-01 13:05 | disposition left against medical advice (07) ==
LOC: DL.ED 11:26
DX: Z53.21 Procedure and treatment not carried out due to patient leaving prior to being seen by health care provider (principal)

== ENCOUNTER 2022-03-27 10:23 | Emergency (ER) | payer MEDICAID ==
[2022-03-27] MEDS ORDERED: HYDROmorphone 1 MG/ML Syringe IM ONE (10:25)
[2022-03-27 10:39] VITALS: BP 132/72; PULSE 72
== END 2022-03-27 11:08 | disposition home or self-care (01) ==
LOC: DL.ED 10:23
DX: G89.4 Chronic pain syndrome (principal); R31.9 Hematuria, unspecified; E78.00 Pure hypercholesterolemia, unspecified; I10 Essential (primary) hypertension; E11.9 Type 2 diabetes mellitus without complications; K21.9 Gastro-esophageal reflux disease without esophagitis; E66.9 Obesity, unspecified; Z68.41 Body mass index [BMI] 40.0-44.9, adult; Z88.0 Allergy status to penicillin; Z91.030 Bee allergy status; Z88.5 Allergy status to narcotic agent; Z88.6 Allergy status to analgesic agent; Z79.84 Long term (current) use of oral hypoglycemic drugs; Z79.899 Other long term (current) drug therapy; Z86.16 Personal history of COVID-19
CPT/HCPCS: 96372; 99283; J1170

== ENCOUNTER 2022-03-28 11:48 | Emergency (ER) | payer MEDICAID ==
[2022-03-28 13:07] VITALS: BP 134/81; PULSE 63
== END 2022-03-28 13:08 | disposition left against medical advice (07) ==
LOC: DL.ED 11:48
DX: Z53.21 Procedure and treatment not carried out due to patient leaving prior to being seen by health care provider (principal)

== ENCOUNTER 2022-04-04 07:09 | Emergency (ER) | payer MEDICAID ==
[2022-04-04 07:24] VITALS: BP 135/89; PULSE 65
[2022-04-04] MEDS ORDERED: Acetaminophen/oxyCODONE 325-5 MG Tab PO ONE (07:26)
== END 2022-04-04 07:50 | disposition home or self-care (01) ==
LOC: DL.ED 07:09
DX: G89.4 Chronic pain syndrome (principal); R31.9 Hematuria, unspecified; E78.00 Pure hypercholesterolemia, unspecified; I10 Essential (primary) hypertension; K21.9 Gastro-esophageal reflux disease without esophagitis; E11.9 Type 2 diabetes mellitus without complications; E66.9 Obesity, unspecified; Z68.41 Body mass index [BMI] 40.0-44.9, adult; Z88.0 Allergy status to penicillin; Z88.6 Allergy status to analgesic agent; Z91.030 Bee allergy status; Z88.5 Allergy status to narcotic agent; Z79.899 Other long term (current) drug therapy; Z86.16 Personal history of COVID-19; Z87.2 Personal history of diseases of the skin and subcutaneous tissue
CPT/HCPCS: 99283; A9270-GY

== ENCOUNTER 2022-04-27 06:57 | Emergency (ER) | payer MEDICAID ==
[2022-04-27 07:13] VITALS: BP 132/83; PULSE 87
[2022-04-27] MEDS ORDERED: HYDROmorphone 1 MG/ML Syringe IM ONE (07:16)
[2022-04-27] MEDS ORDERED: Acetaminophen/oxyCODONE 325-5 MG Tab PO ONE (07:20)
== END 2022-04-27 07:46 | disposition home or self-care (01) ==
LOC: DL.ED 06:57
DX: R10.9 Unspecified abdominal pain (principal); R31.9 Hematuria, unspecified; E78.00 Pure hypercholesterolemia, unspecified; I10 Essential (primary) hypertension; K21.9 Gastro-esophageal reflux disease without esophagitis; E11.9 Type 2 diabetes mellitus without complications; E66.9 Obesity, unspecified; Z88.0 Allergy status to penicillin; Z91.030 Bee allergy status; Z88.5 Allergy status to narcotic agent; Z88.6 Allergy status to analgesic agent; Z79.84 Long term (current) use of oral hypoglycemic drugs; Z79.899 Other long term (current) drug therapy; Z86.16 Personal history of COVID-19; Z68.41 Body mass index [BMI] 40.0-44.9, adult
CPT/HCPCS: 96372; 99283; A9270

== ENCOUNTER 2022-04-28 17:22 | Emergency (ER) | payer MEDICAID | END 2022-04-28 17:45 | disposition left against medical advice (07) | LOC: DL.ED 17:22 | DX: Z53.21 Procedure and treatment not carried out due to patient leaving prior to being seen by health care provider (principal) ==

== ENCOUNTER 2022-04-29 07:27 | Emergency (ER) | payer MEDICAID ==
[2022-04-29 07:40] VITALS: BP 147/90; PULSE 64
[2022-04-29] MEDS ORDERED: HYDROmorphone 1 MG/ML Syringe IM ONE (07:40)
== END 2022-04-29 08:01 | disposition home or self-care (01) ==
LOC: DL.ED 07:27
DX: R10.9 Unspecified abdominal pain (principal); G89.4 Chronic pain syndrome; R31.9 Hematuria, unspecified; E78.00 Pure hypercholesterolemia, unspecified; I10 Essential (primary) hypertension; K21.9 Gastro-esophageal reflux disease without esophagitis; E11.9 Type 2 diabetes mellitus without complications; E66.9 Obesity, unspecified; Z88.0 Allergy status to penicillin; Z91.030 Bee allergy status; Z88.5 Allergy status to narcotic agent; Z88.6 Allergy status to analgesic agent; Z79.899 Other long term (current) drug therapy; Z86.16 Personal history of COVID-19; Z87.2 Personal history of diseases of the skin and subcutaneous tissue; Z68.41 Body mass index [BMI] 40.0-44.9, adult
CPT/HCPCS: 96372; 99283; J1170

== ENCOUNTER 2022-05-27 07:13 | Emergency (ER) | payer MEDICAID ==
[2022-05-27] MEDS ORDERED: Acetaminophen/oxyCODONE 325-5 MG Tab PO ONE (07:24)
[2022-05-27] MEDS ORDERED: Ondansetron 4 MG Tab.DIS PO ONE (07:26)
[2022-05-27 07:29] VITALS: BP 130/108; PULSE 69
== END 2022-05-27 07:45 | disposition home or self-care (01) ==
LOC: DL.ED 07:13
DX: R10.9 Unspecified abdominal pain (principal); M54.9 Dorsalgia, unspecified; R31.9 Hematuria, unspecified; E11.9 Type 2 diabetes mellitus without complications; E66.9 Obesity, unspecified; Z68.41 Body mass index [BMI] 40.0-44.9, adult; Z86.16 Personal history of COVID-19; Z88.0 Allergy status to penicillin; Z91.030 Bee allergy status; Z88.6 Allergy status to analgesic agent; Z88.5 Allergy status to narcotic agent; Z79.84 Long term (current) use of oral hypoglycemic drugs; Z79.899 Other long term (current) drug therapy; Z87.2 Personal history of diseases of the skin and subcutaneous tissue
CPT/HCPCS: 99283; A9270-GY

== ENCOUNTER 2022-05-28 14:18 | Emergency (ER) | payer MEDICAID | END 2022-05-28 14:20 | disposition left against medical advice (07) | LOC: DL.ED 14:18 | DX: Z53.21 Procedure and treatment not carried out due to patient leaving prior to being seen by health care provider (principal) ==

== ENCOUNTER 2022-05-29 07:02 | Emergency (ER) | payer MEDICAID ==
[2022-05-29] MEDS ORDERED: HYDROmorphone 1 MG/ML Syringe IV ONE (07:40)
== END 2022-05-29 07:43 | disposition home or self-care (01) ==
LOC: DL.ED 07:02
DX: R10.9 Unspecified abdominal pain (principal); G89.29 Other chronic pain; R31.9 Hematuria, unspecified
CPT/HCPCS: 96372; 99283; J1170

== ENCOUNTER 2022-06-27 07:12 | Emergency (ER) | payer MEDICAID ==
[2022-06-27 07:23] VITALS: BP 138/74; PULSE 68
== END 2022-06-27 07:46 | disposition home or self-care (01) ==
LOC: DL.ED 07:12
DX: G89.4 Chronic pain syndrome (principal); R10.9 Unspecified abdominal pain; N39.8 Other specified disorders of urinary system; I10 Essential (primary) hypertension; E11.9 Type 2 diabetes mellitus without complications; E66.9 Obesity, unspecified; Z68.41 Body mass index [BMI] 40.0-44.9, adult; Z88.0 Allergy status to penicillin; Z91.030 Bee allergy status; Z88.8 Allergy status to other drugs, medicaments and biological substances; Z88.1 Allergy status to other antibiotic agents; Z88.5 Allergy status to narcotic agent; Z79.899 Other long term (current) drug therapy; Z79.84 Long term (current) use of oral hypoglycemic drugs; Z86.16 Personal history of COVID-19; Z90.49 Acquired absence of other specified parts of digestive tract
CPT/HCPCS: 99283

== ENCOUNTER 2022-07-03 07:12 | Emergency (ER) | payer MEDICAID ==
[2022-07-03 07:28] VITALS: BP 130/70; PULSE 64
[2022-07-03 07:52] LABS: AMPHETAMINES,URINE NEGATIVE (NEGATIVE); BARBITURATES,URINE NEGATIVE (NEGATIVE); BENZODIAZEPINE,URINE NEGATIVE (NEGATIVE); MDMA (ECSTASY), URINE NEGATIVE (NEGATIVE); METHADONE,URINE NEGATIVE (NEGATIVE); METHAMPHETAMINES,URINE NEGATIVE (NEGATIVE); OPIATES,URINE POSITIVE (NEGATIVE); OXYCODONE,URINE POSITIVE (NEGATIVE); PHENCYCLIDINE,URINE NEGATIVE (NEGATIVE); TCA,URINE NEGATIVE (NEGATIVE)
[2022-07-03] MEDS ORDERED: HYDROmorphone 1 MG/ML Syringe IM ONE (08:22)
== END 2022-07-03 08:36 | disposition home or self-care (01) ==
LOC: DL.ED 07:12
DX: M54.50 Low back pain, unspecified (principal); R31.9 Hematuria, unspecified; I10 Essential (primary) hypertension; E11.9 Type 2 diabetes mellitus without complications; E66.9 Obesity, unspecified; Z68.41 Body mass index [BMI] 40.0-44.9, adult; Z86.16 Personal history of COVID-19; Z88.0 Allergy status to penicillin; Z91.030 Bee allergy status; Z88.8 Allergy status to other drugs, medicaments and biological substances; Z88.5 Allergy status to narcotic agent; Z79.84 Long term (current) use of oral hypoglycemic drugs; Z79.899 Other long term (current) drug therapy
CPT/HCPCS: 80305; 81001; 96372; 99283; J1170

== ENCOUNTER 2022-07-05 07:09 | Emergency (ER) | payer MEDICAID | END 2022-07-05 08:50 | disposition left against medical advice (07) | LOC: DL.ED 07:09 | DX: Z53.21 Procedure and treatment not carried out due to patient leaving prior to being seen by health care provider (principal) ==

== ENCOUNTER 2022-07-15 07:13 | Emergency (ER) | payer MEDICAID | END 2022-07-15 08:00 | disposition left against medical advice (07) | LOC: DL.ED 07:13 | DX: Z53.21 Procedure and treatment not carried out due to patient leaving prior to being seen by health care provider (principal) ==

== ENCOUNTER 2022-07-24 12:24 | Emergency (ER) | payer MEDICAID ==
[2022-07-24 12:46] VITALS: BP 121/76; PULSE 77
== END 2022-07-24 13:50 | disposition left against medical advice (07) ==
LOC: DL.ED 12:24
DX: Z53.21 Procedure and treatment not carried out due to patient leaving prior to being seen by health care provider (principal)

== ENCOUNTER 2022-07-26 07:39 | Emergency (ER) | payer MEDICAID ==
[2022-07-26 08:05] VITALS: BP 128/78; PULSE 78
== END 2022-07-26 08:03 | disposition left against medical advice (07) ==
LOC: DL.ED 07:39
DX: R10.9 Unspecified abdominal pain (principal); I10 Essential (primary) hypertension; E78.00 Pure hypercholesterolemia, unspecified; E11.9 Type 2 diabetes mellitus without complications; E66.9 Obesity, unspecified; Z68.41 Body mass index [BMI] 40.0-44.9, adult; Z88.0 Allergy status to penicillin; Z91.030 Bee allergy status; Z88.6 Allergy status to analgesic agent
CPT/HCPCS: 99283

== ENCOUNTER 2022-07-27 07:11 | Emergency (ER) | payer MEDICAID ==
[2022-07-27 07:23] VITALS: BP 126/83; PULSE 79
[2022-07-27] MEDS ORDERED: Ondansetron 4 MG Tab.DIS PO ONE (07:34)
[2022-07-27] MEDS ORDERED: HYDROmorphone 1 MG/ML Syringe IM ONE (07:35)
== END 2022-07-27 08:02 | disposition home or self-care (01) ==
LOC: DL.ED 07:11
DX: R10.9 Unspecified abdominal pain (principal); R11.2 Nausea with vomiting, unspecified; N39.8 Other specified disorders of urinary system; I10 Essential (primary) hypertension; E11.9 Type 2 diabetes mellitus without complications; E66.9 Obesity, unspecified; Z68.30 Body mass index [BMI] 30.0-30.9, adult; Z88.0 Allergy status to penicillin; Z91.030 Bee allergy status; Z88.1 Allergy status to other antibiotic agents; Z88.5 Allergy status to narcotic agent; Z79.899 Other long term (current) drug therapy; Z79.84 Long term (current) use of oral hypoglycemic drugs; Z90.49 Acquired absence of other specified parts of digestive tract
CPT/HCPCS: 96372; 99283; A9270; J1170

== ENCOUNTER 2022-07-29 09:44 | Emergency (ER) | payer MEDICAID ==
[2022-07-29] MEDS ORDERED: Acetaminophen/oxyCODONE 325-5 MG Tab PO ONE (10:33)
[2022-07-29 10:42] VITALS: BP 130/89; PULSE 61
== END 2022-07-29 10:46 | disposition home or self-care (01) ==
LOC: DL.ED 09:44
DX: M54.50 Low back pain, unspecified (principal); R31.9 Hematuria, unspecified; R10.9 Unspecified abdominal pain; I10 Essential (primary) hypertension; E11.9 Type 2 diabetes mellitus without complications; E66.9 Obesity, unspecified; Z68.41 Body mass index [BMI] 40.0-44.9, adult; Z88.0 Allergy status to penicillin; Z91.030 Bee allergy status; Z88.8 Allergy status to other drugs, medicaments and biological substances; Z88.5 Allergy status to narcotic agent; Z79.84 Long term (current) use of oral hypoglycemic drugs; Z79.899 Other long term (current) drug therapy
CPT/HCPCS: 99283; A9270

== ENCOUNTER 2022-08-15 07:40 | Emergency (ER) | payer MEDICAID ==
[2022-08-15 07:50] VITALS: BP 136/105; PULSE 73
[2022-08-15] MEDS ORDERED: HYDROmorphone 1 MG/ML Syringe IM ONE (08:35)
== END 2022-08-15 08:45 ==
LOC: DL.ED 07:40
DX: T79.A11A Traumatic compartment syndrome of right upper extremity, initial encounter (principal); I10 Essential (primary) hypertension; E11.9 Type 2 diabetes mellitus without complications; E66.9 Obesity, unspecified; Z68.41 Body mass index [BMI] 40.0-44.9, adult; Z91.030 Bee allergy status; Z88.8 Allergy status to other drugs, medicaments and biological substances; Z88.5 Allergy status to narcotic agent; Z88.0 Allergy status to penicillin; Z79.84 Long term (current) use of oral hypoglycemic drugs; Z79.899 Other long term (current) drug therapy
CPT/HCPCS: 73130; 96372; 99283; J1170

== ENCOUNTER 2022-08-22 07:51 | Emergency (ER) | payer MEDICAID ==
[2022-08-22 08:07] VITALS: BP 152/85; PULSE 84
== END 2022-08-22 08:45 | disposition home or self-care (01) ==
LOC: DL.ED 07:51
DX: Z48.00 Encounter for change or removal of nonsurgical wound dressing (principal); R20.2 Paresthesia of skin; E11.9 Type 2 diabetes mellitus without complications; K21.9 Gastro-esophageal reflux disease without esophagitis; E78.00 Pure hypercholesterolemia, unspecified; E66.9 Obesity, unspecified; Z68.41 Body mass index [BMI] 40.0-44.9, adult; Z88.0 Allergy status to penicillin; Z88.5 Allergy status to narcotic agent; Z91.030 Bee allergy status; Z79.84 Long term (current) use of oral hypoglycemic drugs; Z79.899 Other long term (current) drug therapy; Z86.16 Personal history of COVID-19
CPT/HCPCS: 99283

== ENCOUNTER 2022-08-28 08:21 | Emergency (ER) | payer MEDICAID ==
[2022-08-28 08:31] VITALS: BP 118/89; PULSE 67
[2022-08-28] MEDS ORDERED: HYDROmorphone 1 MG/ML Syringe IM ONE (08:34)
== END 2022-08-28 08:49 | disposition home or self-care (01) ==
LOC: DL.ED 08:21
DX: R10.9 Unspecified abdominal pain (principal); M54.50 Low back pain, unspecified; R31.9 Hematuria, unspecified; I10 Essential (primary) hypertension; E11.9 Type 2 diabetes mellitus without complications; E66.9 Obesity, unspecified; Z68.41 Body mass index [BMI] 40.0-44.9, adult; Z88.0 Allergy status to penicillin; Z88.8 Allergy status to other drugs, medicaments and biological substances; Z91.030 Bee allergy status; Z79.84 Long term (current) use of oral hypoglycemic drugs; Z79.899 Other long term (current) drug therapy
CPT/HCPCS: 96372; 99283; J1170

== ENCOUNTER 2022-08-29 07:13 | Emergency (ER) | payer MEDICAID ==
[2022-08-29 07:53] VITALS: BP 138/91; PULSE 61
[2022-08-29] MEDS: Acetaminophen/oxyCODONE 325-5 MG Tab PO ONE (07:56)
[2022-08-29] MEDS: Ondansetron 4 MG Tab.DIS PO ONE (07:56)
== END 2022-08-29 08:05 | disposition home or self-care (01) ==
LOC: DL.ED 07:13
DX: G89.4 Chronic pain syndrome (principal); M54.50 Low back pain, unspecified; R31.9 Hematuria, unspecified; I10 Essential (primary) hypertension; E11.9 Type 2 diabetes mellitus without complications; E66.9 Obesity, unspecified; Z68.41 Body mass index [BMI] 40.0-44.9, adult; Z88.8 Allergy status to other drugs, medicaments and biological substances; Z88.5 Allergy status to narcotic agent; Z88.0 Allergy status to penicillin; Z91.030 Bee allergy status; Z79.84 Long term (current) use of oral hypoglycemic drugs; Z79.899 Other long term (current) drug therapy
CPT/HCPCS: 99283; A9270

== ENCOUNTER 2022-09-15 15:55 | Emergency (ER) | payer MEDICAID ==
[2022-09-15 16:52] VITALS: BP 148/93; PULSE 76
== END 2022-09-15 17:43 | disposition home or self-care (01) ==
LOC: DL.ED 15:55
DX: M79.641 Pain in right hand (principal); I10 Essential (primary) hypertension; E11.9 Type 2 diabetes mellitus without complications; E66.9 Obesity, unspecified; Z68.41 Body mass index [BMI] 40.0-44.9, adult; Z88.0 Allergy status to penicillin; Z91.030 Bee allergy status; Z88.1 Allergy status to other antibiotic agents; Z88.8 Allergy status to other drugs, medicaments and biological substances; Z88.5 Allergy status to narcotic agent; Z79.899 Other long term (current) drug therapy; Z79.84 Long term (current) use of oral hypoglycemic drugs; Z86.16 Personal history of COVID-19; Z90.49 Acquired absence of other specified parts of digestive tract; Z72.0 Tobacco use
CPT/HCPCS: 73120-RT; 99283

== ENCOUNTER 2022-09-17 07:01 | Emergency (ER) | payer MEDICAID ==
[2022-09-17] MEDS ORDERED: Sulfamethoxazole/Trimethoprim 800-160 MG Tab PO ONE ×2 (07:02→07:22)
[2022-09-17 07:23] VITALS: BP 148/98; PULSE 62
[2022-09-17] MEDS ORDERED: Sulfamethoxazole/Trimethoprim 800-160 MG Tab ONE (07:31)
== END 2022-09-17 07:50 | disposition home or self-care (01) ==
LOC: DL.ED 07:01
DX: L03.113 Cellulitis of right upper limb (principal); I10 Essential (primary) hypertension; E11.9 Type 2 diabetes mellitus without complications; E66.9 Obesity, unspecified; Z68.41 Body mass index [BMI] 40.0-44.9, adult; Z88.0 Allergy status to penicillin; Z91.030 Bee allergy status; Z88.1 Allergy status to other antibiotic agents; Z88.5 Allergy status to narcotic agent; Z88.8 Allergy status to other drugs, medicaments and biological substances; Z79.899 Other long term (current) drug therapy; Z79.84 Long term (current) use of oral hypoglycemic drugs; Z86.16 Personal history of COVID-19; Z90.49 Acquired absence of other specified parts of digestive tract
CPT/HCPCS: 99283; A9270

== ENCOUNTER 2022-09-27 07:27 | Emergency (ER) | payer MEDICAID ==
[2022-09-27] MEDS ORDERED: HYDROmorphone 1 MG/ML Syringe IM ONE (07:56)
[2022-09-27 08:16] VITALS: BP 133/77; PULSE 62
== END 2022-09-27 08:08 | disposition home or self-care (01) ==
LOC: DL.ED 07:27
DX: R10.9 Unspecified abdominal pain (principal); M54.50 Low back pain, unspecified; R31.9 Hematuria, unspecified; E78.00 Pure hypercholesterolemia, unspecified; I10 Essential (primary) hypertension; K21.9 Gastro-esophageal reflux disease without esophagitis; E11.9 Type 2 diabetes mellitus without complications; E66.9 Obesity, unspecified; Z68.41 Body mass index [BMI] 40.0-44.9, adult; Z88.0 Allergy status to penicillin; Z91.030 Bee allergy status; Z88.5 Allergy status to narcotic agent; Z79.84 Long term (current) use of oral hypoglycemic drugs; Z79.899 Other long term (current) drug therapy; Z86.16 Personal history of COVID-19; Z87.2 Personal history of diseases of the skin and subcutaneous tissue
CPT/HCPCS: 96372; 99283; J1170

== ENCOUNTER 2022-09-28 09:04 | Emergency (ER) | payer MEDICAID ==
[2022-09-28] MEDS ORDERED: Acetaminophen/oxyCODONE 325-5 MG Tab PO ONE (09:25)
[2022-09-28 09:27] VITALS: BP 149/83; PULSE 69
== END 2022-09-28 09:36 | disposition home or self-care (01) ==
LOC: DL.ED 09:04
DX: G89.4 Chronic pain syndrome (principal); M54.50 Low back pain, unspecified; R31.9 Hematuria, unspecified; I10 Essential (primary) hypertension; E11.9 Type 2 diabetes mellitus without complications; E66.9 Obesity, unspecified; Z68.41 Body mass index [BMI] 40.0-44.9, adult; Z88.0 Allergy status to penicillin; Z91.030 Bee allergy status; Z88.8 Allergy status to other drugs, medicaments and biological substances; Z88.5 Allergy status to narcotic agent; Z79.84 Long term (current) use of oral hypoglycemic drugs; Z79.899 Other long term (current) drug therapy
CPT/HCPCS: 99283; A9270-GY

== ENCOUNTER 2022-10-25 08:08 | Emergency (ER) | payer MEDICAID ==
[2022-10-25 08:53] VITALS: BP 142/99; PULSE 60
[2022-10-25] MEDS ORDERED: HYDROmorphone 1 MG/ML Syringe IM ONE (08:58)
== END 2022-10-25 09:05 | disposition home or self-care (01) ==
LOC: DL.ED 08:08
DX: N39.8 Other specified disorders of urinary system (principal); Z86.2 Personal history of diseases of the blood and blood-forming organs and certain disorders involving the immune mechanism; I10 Essential (primary) hypertension; E11.9 Type 2 diabetes mellitus without complications; E66.9 Obesity, unspecified; Z79.84 Long term (current) use of oral hypoglycemic drugs; Z79.899 Other long term (current) drug therapy; Z88.8 Allergy status to other drugs, medicaments and biological substances; Z91.030 Bee allergy status; Z88.0 Allergy status to penicillin
CPT/HCPCS: 96372; 99283; J1170

== ENCOUNTER 2022-10-26 07:33 | Emergency (ER) | payer MEDICAID ==
[2022-10-26] MEDS ORDERED: Acetaminophen/oxyCODONE 325-5 MG Tab PO ONE (07:38)
[2022-10-26 07:47] VITALS: BP 122/106; PULSE 61
== END 2022-10-26 07:57 | disposition home or self-care (01) ==
LOC: DL.ED 07:33
DX: R31.9 Hematuria, unspecified (principal); M54.50 Low back pain, unspecified; G89.4 Chronic pain syndrome; Z98.890 Other specified postprocedural states; I10 Essential (primary) hypertension; E11.9 Type 2 diabetes mellitus without complications; E66.9 Obesity, unspecified; Z68.39 Body mass index [BMI] 39.0-39.9, adult; Z87.2 Personal history of diseases of the skin and subcutaneous tissue; Z86.16 Personal history of COVID-19; Z88.0 Allergy status to penicillin; Z91.030 Bee allergy status; Z88.8 Allergy status to other drugs, medicaments and biological substances; Z79.84 Long term (current) use of oral hypoglycemic drugs; Z79.899 Other long term (current) drug therapy
CPT/HCPCS: 99283; A9270-GY

== ENCOUNTER 2022-11-25 07:20 | Emergency (ER) | payer MEDICAID ==
[2022-11-25] MEDS ORDERED: Acetaminophen/oxyCODONE 325-5 MG Tab PO ONE (07:41)
[2022-11-25 07:45] VITALS: BP 146/92; PULSE 61
== END 2022-11-25 07:53 | disposition home or self-care (01) ==
LOC: DL.ED 07:20
DX: M54.50 Low back pain, unspecified (principal); R31.9 Hematuria, unspecified; R10.9 Unspecified abdominal pain; I10 Essential (primary) hypertension; E11.9 Type 2 diabetes mellitus without complications; E66.9 Obesity, unspecified; Z68.41 Body mass index [BMI] 40.0-44.9, adult; Z88.8 Allergy status to other drugs, medicaments and biological substances; Z88.0 Allergy status to penicillin; Z88.5 Allergy status to narcotic agent; Z91.030 Bee allergy status; Z79.84 Long term (current) use of oral hypoglycemic drugs; Z79.899 Other long term (current) drug therapy
CPT/HCPCS: 99283; A9270-GY

== ENCOUNTER 2022-11-26 07:33 | Emergency (ER) | payer MEDICAID ==
[2022-11-26] MEDS ORDERED: HYDROmorphone 1 MG/ML Syringe IM ONE (07:39)
[2022-11-26 07:44] VITALS: BP 119/82; PULSE 70
== END 2022-11-26 07:51 | disposition home or self-care (01) ==
LOC: DL.ED 07:33
DX: R31.9 Hematuria, unspecified (principal); D69.0 Allergic purpura; G89.29 Other chronic pain; R10.9 Unspecified abdominal pain; I10 Essential (primary) hypertension; E11.9 Type 2 diabetes mellitus without complications; E66.9 Obesity, unspecified; Z68.42 Body mass index [BMI] 45.0-49.9, adult; Z86.16 Personal history of COVID-19; Z79.84 Long term (current) use of oral hypoglycemic drugs; Z79.899 Other long term (current) drug therapy; Z88.1 Allergy status to other antibiotic agents; Z88.5 Allergy status to narcotic agent; Z88.8 Allergy status to other drugs, medicaments and biological substances; Z91.030 Bee allergy status
CPT/HCPCS: 96372; 99283; J1170

== ENCOUNTER 2022-12-25 07:57 | Emergency (ER) | payer MEDICAID ==
[2022-12-25] MEDS ORDERED: HYDROmorphone 1 MG/ML Syringe IM ONE (08:04)
[2022-12-25 08:06] VITALS: BP 126/87; PULSE 66
== END 2022-12-25 08:28 | disposition home or self-care (01) ==
LOC: DL.ED 07:57
DX: G89.4 Chronic pain syndrome (principal); M54.50 Low back pain, unspecified; R31.9 Hematuria, unspecified; I10 Essential (primary) hypertension; E11.9 Type 2 diabetes mellitus without complications; E66.9 Obesity, unspecified; Z68.41 Body mass index [BMI] 40.0-44.9, adult; Z88.0 Allergy status to penicillin; Z91.030 Bee allergy status; Z88.8 Allergy status to other drugs, medicaments and biological substances; Z88.5 Allergy status to narcotic agent; Z79.84 Long term (current) use of oral hypoglycemic drugs; Z79.899 Other long term (current) drug therapy; Z86.16 Personal history of COVID-19
CPT/HCPCS: 96372; 99283; J1170

== ENCOUNTER 2022-12-26 16:53 | Emergency (ER) | payer MEDICAID ==
[2022-12-26] MEDS ORDERED: Acetaminophen/oxyCODONE 325-5 MG Tab PO ONE (17:03)
[2022-12-26 17:28] VITALS: BP 143/87; PULSE 75
== END 2022-12-26 17:13 | disposition home or self-care (01) ==
LOC: DL.ED 16:53
DX: N39.8 Other specified disorders of urinary system (principal); K21.9 Gastro-esophageal reflux disease without esophagitis; I10 Essential (primary) hypertension; E11.9 Type 2 diabetes mellitus without complications; E66.9 Obesity, unspecified; Z68.41 Body mass index [BMI] 40.0-44.9, adult; Z88.0 Allergy status to penicillin; Z88.5 Allergy status to narcotic agent; Z88.8 Allergy status to other drugs, medicaments and biological substances; Z91.030 Bee allergy status; Z79.84 Long term (current) use of oral hypoglycemic drugs; Z79.899 Other long term (current) drug therapy
CPT/HCPCS: 99283; A9270

== ENCOUNTER 2023-01-25 15:21 | Emergency (ER) | payer MEDICAID ==
[2023-01-25 15:37] VITALS: BP 127/72; PULSE 74
[2023-01-25] MEDS ORDERED: Acetaminophen 500 MG Tab PO ONE (15:39)
== END 2023-01-25 15:42 | disposition home or self-care (01) ==
LOC: DL.ED 15:21
DX: G89.29 Other chronic pain (principal); R10.9 Unspecified abdominal pain; I10 Essential (primary) hypertension; E11.9 Type 2 diabetes mellitus without complications; E66.9 Obesity, unspecified; Z68.41 Body mass index [BMI] 40.0-44.9, adult; Z86.16 Personal history of COVID-19; Z88.5 Allergy status to narcotic agent; Z88.8 Allergy status to other drugs, medicaments and biological substances; Z88.0 Allergy status to penicillin; Z91.030 Bee allergy status; Z79.84 Long term (current) use of oral hypoglycemic drugs; Z79.899 Other long term (current) drug therapy
CPT/HCPCS: 99283; 99284

== ENCOUNTER 2023-01-28 07:52 | Emergency (ER) | payer MEDICAID | END 2023-01-28 08:00 | disposition left against medical advice (07) | LOC: DL.ED 07:52 | DX: Z53.21 Procedure and treatment not carried out due to patient leaving prior to being seen by health care provider (principal) ==

== ENCOUNTER 2023-04-05 11:22 | Emergency (ER) | payer MEDICAID | END 2023-04-05 11:35 | disposition left against medical advice (07) | LOC: DL.ED 11:22 | DX: Z53.21 Procedure and treatment not carried out due to patient leaving prior to being seen by health care provider (principal) ==

== ENCOUNTER 2023-04-10 03:58 | Emergency (ER) | payer MEDICAID ==
[2023-04-10 04:23] VITALS: BP 130/88; PULSE 66
== END 2023-04-10 04:22 | disposition left against medical advice (07) ==
LOC: DL.ED 03:58
DX: G89.4 Chronic pain syndrome (principal); I10 Essential (primary) hypertension; E78.00 Pure hypercholesterolemia, unspecified; E11.9 Type 2 diabetes mellitus without complications; E66.9 Obesity, unspecified; Z88.0 Allergy status to penicillin; Z88.8 Allergy status to other drugs, medicaments and biological substances; Z79.84 Long term (current) use of oral hypoglycemic drugs; Z86.16 Personal history of COVID-19
CPT/HCPCS: 99283

== ENCOUNTER 2023-05-07 08:09 | Emergency (ER) | payer MEDICAID ==
[2023-05-07 08:29] VITALS: BP 132/68; PULSE 76
[2023-05-07] MEDS: Phenazopyridine 95 MG Tab PO ONE ×2 (08:39→08:44)
[2023-05-07] MEDS: Naproxen 250 MG Tab PO ONE ×2 (08:39→08:43)
== END 2023-05-07 08:44 | disposition home or self-care (01) ==
LOC: DL.ED 08:09
DX: M54.50 Low back pain, unspecified (principal); R31.9 Hematuria, unspecified; E78.00 Pure hypercholesterolemia, unspecified; I10 Essential (primary) hypertension; K21.9 Gastro-esophageal reflux disease without esophagitis; E11.9 Type 2 diabetes mellitus without complications; F17.290 Nicotine dependence, other tobacco product, uncomplicated; E66.9 Obesity, unspecified; Z88.0 Allergy status to penicillin; Z91.030 Bee allergy status; Z88.8 Allergy status to other drugs, medicaments and biological substances; Z88.5 Allergy status to narcotic agent; Z79.84 Long term (current) use of oral hypoglycemic drugs; Z79.899 Other long term (current) drug therapy; Z86.16 Personal history of COVID-19; Z87.2 Personal history of diseases of the skin and subcutaneous tissue; Z68.41 Body mass index [BMI] 40.0-44.9, adult
CPT/HCPCS: 99283; A9270-GY

== ENCOUNTER 2023-10-07 04:44 | Emergency (ER) | payer BC, MEDICAID ==
[2023-10-07 04:55] VITALS: BP 141/113; PULSE 58
[2023-10-07 05:20] LABS: BASOPHILS PERCENT AUTO 0.3 % (0.0-1.0); EOSINOPHILS PERCENT AUTO 1.8 % (1.0-3.0); HEMATOCRIT 46.2 % (40.0-54.0); LYMPHOCYTES PERCENT AUTO 29.3 % (20.5-50.1); MEAN CORPUSCULAR HEMOGLOBIN 29.8 pg (27.0-34.0); MEAN CORPUSCULAR HGB CONC 34.6 g/dL (33.0-35.0); MONOCYTES PERCENT AUTO 7.7 % (2-8); NEUTROPHILS PERCENT AUTO 60.9 % (42.2-75.2); PLATELET COUNT,PLT 289 10^3/uL (150-450); RED BLOOD CELL COUNT 5.37 10^6/uL (4.6-6.2); WHITE BLOOD CELL COUNT,WBC 7.8 10^3/uL (5.0-10.0)
[2023-10-07 05:23] LABS: APPEARANCE,URINE SLIGHTLY CLOUDY (CLEAR); BILIRUBIN,URINE NEGATIVE (NEGATIVE); GLUCOSE,URINE NEGATIVE (NEGATIVE); KETONES,URINE NEGATIVE (NEGATIVE); LEUKOCYTE ESTERASE,URINE NEGATIVE (NEGATIVE); NITRITE,URINE NEGATIVE (NEGATIVE); OCCULT BLOOD,URINE LARGE (NEGATIVE); PH,URINE 6.5 (5.0-9.0); PROTEIN,URINE 100 (NEGATIVE); UROBILINOGEN,URINE 0.2 mg/dL (0.2-1.0)
[2023-10-07 05:36] LABS: COLOR,URINE PINK (YELLOW)
[2023-10-07 05:37] LABS: BACTERIA,URINE FEW /HPF (0-FEW/HPF); EPITHELIAL CELLS,URINE FEW /HPF (NOT SEEN); MUCUS,URINE OCCASIONAL /LPF (NOT SEEN); RBC,URINE >100 /HPF (0-5); WBC,URINE 0-5 /HPF (0-5/HPF)
[2023-10-07 05:44] LABS: A/G RATIO 1.1; ALBUMIN 3.9 g/dL (3.4-5.0); BILIRUBIN TOTAL 0.6 mg/dL (0.2-1.0); BUN/CREATININE RATIO 13.8 (No establ ref range); CALCIUM 8.5 mg/dL (8.5-10.1); CREATININE 0.87 mg/dL (0.70-1.30); EST CRCL DRUG DOSING (CG) 133.79 mL/min; PROTEIN TOTAL,TP 7.3 g/dL (6.4-8.2)
== END 2023-10-07 05:42 | disposition left against medical advice (07) ==
LOC: DL.ED 04:44
DX: R31.0 Gross hematuria (principal); G89.4 Chronic pain syndrome; I10 Essential (primary) hypertension; E11.9 Type 2 diabetes mellitus without complications; E66.9 Obesity, unspecified; Z88.0 Allergy status to penicillin; Z79.84 Long term (current) use of oral hypoglycemic drugs; Z79.899 Other long term (current) drug therapy; Z91.030 Bee allergy status; Z88.5 Allergy status to narcotic agent; Z88.8 Allergy status to other drugs, medicaments and biological substances; Z86.16 Personal history of COVID-19; Z90.49 Acquired absence of other specified parts of digestive tract; Z68.41 Body mass index [BMI] 40.0-44.9, adult
CPT/HCPCS: 36415; 74176; 80053; 81001; 85025; 99284

== ENCOUNTER 2023-11-10 11:43 | Emergency (ER) | payer BC ==
[2023-11-10 12:15] VITALS: BP 146/84; PULSE 75
[2023-11-10] MEDS: Ketorolac 30 MG/ML SDV IM ONE (12:28)
[2023-11-10] MEDS: Acetaminophen 325 MG Tab PO ONE (12:45)
== END 2023-11-10 12:53 | disposition home or self-care (01) ==
LOC: DL.ED 11:43
DX: S61.233A Puncture wound without foreign body of left middle finger without damage to nail, initial encounter (principal); I10 Essential (primary) hypertension; E78.00 Pure hypercholesterolemia, unspecified; E11.9 Type 2 diabetes mellitus without complications; Z90.49 Acquired absence of other specified parts of digestive tract; Z79.84 Long term (current) use of oral hypoglycemic drugs; Z79.899 Other long term (current) drug therapy; Z88.5 Allergy status to narcotic agent; Z91.030 Bee allergy status; Z88.8 Allergy status to other drugs, medicaments and biological substances; Z88.1 Allergy status to other antibiotic agents; W31.1XXA Contact with metalworking machines, initial encounter
CPT/HCPCS: 73130-LT; 99282; 99283

== ENCOUNTER 2024-02-15 20:20 | Emergency (ER) | payer SELFPAY ==
[2024-02-15 21:13] VITALS: BP 125/66; PULSE 75
== END 2024-02-15 22:00 | disposition left against medical advice (07) ==
LOC: DL.ED 20:20
DX: Z53.21 Procedure and treatment not carried out due to patient leaving prior to being seen by health care provider (principal)

== ENCOUNTER 2024-02-16 08:44 | Emergency (ER) | payer MEDICAID ==
[2024-02-16 09:03] VITALS: BP 135/94; PULSE 67
[2024-02-16 09:28] LABS: BASOPHILS PERCENT AUTO 0.3 % (0.0-1.0); EOSINOPHILS PERCENT AUTO 1.4 % (1.0-3.0); HEMATOCRIT 46.3 % (40.0-54.0); HEMOGLOBIN 15.9 g/dL (14.0-18.0); LYMPHOCYTES PERCENT AUTO 20.1 % (20.5-50.1); MEAN CORPUSCULAR HEMOGLOBIN 29.7 pg (27.0-34.0); MEAN CORPUSCULAR HGB CONC 34.3 g/dL (33.0-35.0); MEAN CORPUSCULAR VOLUME 86.5 fL (80-100); MONOCYTES PERCENT AUTO 5.7 % (2-8); NEUTROPHILS PERCENT AUTO 72.5 % (42.2-75.2); PLATELET COUNT,PLT 302 10^3/uL (150-450); RED BLOOD CELL COUNT 5.35 10^6/uL (4.6-6.2)
[2024-02-16 09:47] LABS: A/G RATIO 1.1; ALANINE AMINOTRANSFERASE,ALT 24 U/L (16-63); ALBUMIN 3.9 g/dL (3.4-5.0); ALKALINE PHOSPHATASE 79 U/L (46-116); ANION GAP 14.2 mEq/L (7-13); ASPARTATE AMNIOTRANSFERASE,AST 11 U/L (15-37); BILIRUBIN TOTAL 0.9 mg/dL (0.2-1.0); BLOOD UREA NITROGEN,BUN 13 mg/dL (7-18); BUN/CREATININE RATIO 14.6 (No establ ref range); CALCIUM 8.6 mg/dL (8.5-10.1); CARBON DIOXIDE,CO2 26 mmol/L (21-32); CHLORIDE,CL 106 mmol/L (98-107); CREATININE 0.89 mg/dL (0.70-1.30); EST CRCL DRUG DOSING (CG) 130.79 mL/min; GLUCOSE RANDOM 102 mg/dL (70-99); POTASSIUM,K 4.2 mmol/L (3.5-5.1); PROTEIN TOTAL,TP 7.4 g/dL (6.4-8.2); SODIUM,NA 142 mmol/L (136-145)
[2024-02-16 09:50] LABS: C-REACTIVE PROTEIN < 0.50 ng/dL (<=0.50); ESTIMATED GFR 117 mL/min (>=60); LACTIC ACID 0.8 mmol/L (0.4-2.0)
[2024-02-16] MEDS: Iopamidol 612 MG/ML 100 ML Bottle IVPUSH ONE (10:06)
[2024-02-16] MEDS: Ondansetron 4 MG/2 ML SDV IVPUSH ONE (10:43)
[2024-02-16] MEDS: Morphine 2 MG/ML SYRINGE IVPUSH ONE (10:45)
[2024-02-16] MEDS: Clindamycin in 0.9 % Sod Chlor 900 MG in Premix Bag 1 BAG IV ONE (11:19)
== END 2024-02-16 11:56 | disposition home or self-care (01) ==
LOC: DL.ED 08:44
DX: L03.211 Cellulitis of face (principal); I10 Essential (primary) hypertension; E78.00 Pure hypercholesterolemia, unspecified; E11.9 Type 2 diabetes mellitus without complications; Z90.49 Acquired absence of other specified parts of digestive tract; F17.210 Nicotine dependence, cigarettes, uncomplicated; Z88.8 Allergy status to other drugs, medicaments and biological substances; Z91.030 Bee allergy status; Z88.5 Allergy status to narcotic agent; Z79.84 Long term (current) use of oral hypoglycemic drugs; Z79.899 Other long term (current) drug therapy
CPT/HCPCS: 36415; 70487; 80053; 83605; 85025; 86140; 96365; 96375; 99284; 99284-25; J2270; J2405; J3490; Q9967

== ENCOUNTER 2024-07-25 21:11 | Emergency (ER) | payer MEDICAID ==
[~2024-07-25 21:11] MED LIST changes: -Sodium Chloride 0.9% 1,000 ML IV ONE; +Sodium Chloride 0.9% 10 ML Syringe FLUSH PRN
[2024-07-25] MEDS: fentaNYL 100 MCG/2 ML SDV IM ONE (21:19)
[2024-07-25] MEDS ORDERED: Naloxone 2 MG/2 ML Syringe IVPUSH PRN (21:49)
[2024-07-25] MEDS: fentaNYL 100 MCG/2 ML SDV IVPUSH ONE (22:09)
[2024-07-25 22:16] LABS: BASOPHILS PERCENT AUTO 0.3 % (0.0-1.0); EOSINOPHILS PERCENT AUTO 1.8 % (1.0-3.0); HEMOGLOBIN 14.5 g/dL (14.0-18.0); LYMPHOCYTES PERCENT AUTO 30.3 % (20.5-50.1); MEAN CORPUSCULAR HEMOGLOBIN 29.5 pg (27.0-34.0); MEAN CORPUSCULAR HGB CONC 34.5 g/dL (33.0-35.0); MEAN CORPUSCULAR VOLUME 85.5 fL (80-100); MONOCYTES PERCENT AUTO 5.9 % (2-8); NEUTROPHILS PERCENT AUTO 61.7 % (42.2-75.2); PLATELET COUNT,PLT 289 10^3/uL (150-450); RED BLOOD CELL COUNT 4.91 10^6/uL (4.6-6.2); WHITE BLOOD CELL COUNT,WBC 10.2 10^3/uL (5.0-10.0)
[2024-07-25] MEDS: Lactated Ringers 1,000 ML IV SCH (22:18)
[2024-07-25] MEDS: fentaNYL 100 MCG/2 ML SDV ONE (22:20)
[2024-07-25 22:41] LABS: A/G RATIO 1.1; ALANINE AMINOTRANSFERASE,ALT 22 U/L (16-63); ALBUMIN 3.5 g/dL (3.4-5.0); ALKALINE PHOSPHATASE 73 U/L (46-116); ANION GAP 13.8 mEq/L (7-13); ASPARTATE AMNIOTRANSFERASE,AST 10 U/L (15-37); BILIRUBIN TOTAL 0.5 mg/dL (0.2-1.0); BLOOD UREA NITROGEN,BUN 16 mg/dL (7-18); BUN/CREATININE RATIO 15.4 (No establ ref range); CALCIUM 7.9 mg/dL (8.5-10.1); CARBON DIOXIDE,CO2 24 mmol/L (21-32); CHLORIDE,CL 103 mmol/L (98-107); CREATININE 1.04 mg/dL (0.70-1.30); ETHANOL BLOOD MEDICAL 3 mg/dL (0); GLUCOSE RANDOM 88 mg/dL (70-99); POTASSIUM,K 3.8 mmol/L (3.5-5.1); PROTEIN TOTAL,TP 6.7 g/dL (6.4-8.2); SODIUM,NA 137 mmol/L (136-145)
[2024-07-25 22:43] VITALS: BP 157/99; PULSE 65
[2024-07-25 22:48] LABS: PROTHROMBIN TIME 10.4 SEC (9.0-12.0); PTT,PARTIAL THROMBOPLSTIN TIME 28.5 SEC (22.0-34.0)
[2024-07-25 22:52] LABS: ESTIMATED GFR 97 mL/min (>=60)
[2024-07-25 23:09] LABS: AMPHETAMINES,URINE NEGATIVE (NEGATIVE); BARBITURATES,URINE NEGATIVE (NEGATIVE); BENZODIAZEPINE,URINE NEGATIVE (NEGATIVE); MDMA (ECSTASY), URINE NEGATIVE (NEGATIVE); METHADONE,URINE NEGATIVE (NEGATIVE); METHAMPHETAMINES,URINE NEGATIVE (NEGATIVE); OPIATES,URINE NEGATIVE (NEGATIVE); OXYCODONE,URINE POSITIVE (NEGATIVE); PHENCYCLIDINE,URINE NEGATIVE (NEGATIVE); TCA,URINE NEGATIVE (NEGATIVE)
[2024-07-25] MEDS: HYDROmorphone 1 MG/ML Syringe IVPUSH ONE (23:09)
[2024-07-25] MEDS: Iopamidol 612 MG/ML 100 ML Bottle IVPUSH ONE ×2 (23:15→23:16)
[2024-07-26] MEDS ORDERED: Naloxone 2 MG/2 ML Syringe IVPUSH PRN (00:28)
[2024-07-26] MEDS: Ketorolac 30 MG/ML SDV IVPUSH ONE (00:33)
[2024-07-26] MEDS: HYDROmorphone 1 MG/ML Syringe IVPUSH ONE (00:33)
[2024-07-26] MEDS: Orphenadrine 60 MG/2 ML Inj IM ONE (00:33)
[2024-07-26] MEDS: Take Home: Cyclobenzaprine 10 MG Tab, 4 Tab Pack PO ONE (01:32)
[2024-07-26] MEDS: Take Home: Acetaminophen/oxyCODONE 325-5 MG, 5 Tab Pack PO ONE (01:32)
== END 2024-07-26 01:51 | disposition home or self-care (01) ==
LOC: DL.ED 21:11
DX: M54.6 Pain in thoracic spine (principal); S06.0X1A Concussion with loss of consciousness of 30 minutes or less, initial encounter; E78.00 Pure hypercholesterolemia, unspecified; I10 Essential (primary) hypertension; E11.9 Type 2 diabetes mellitus without complications; E66.9 Obesity, unspecified; K21.9 Gastro-esophageal reflux disease without esophagitis; Z90.49 Acquired absence of other specified parts of digestive tract; Z79.899 Other long term (current) drug therapy; Z79.84 Long term (current) use of oral hypoglycemic drugs; Z79.891 Long term (current) use of opiate analgesic; Z88.8 Allergy status to other drugs, medicaments and biological substances; Z91.030 Bee allergy status; Z88.0 Allergy status to penicillin; W13.2XXA Fall from, out of or through roof, initial encounter
CPT/HCPCS: 36415; 70450; 70486; 71260; 72125; 72128; 72131; 73030; 73552; 74177; 80053; 80305; 80307; 85025; 85610; 85730; 96361; 96372; 96374; 96375; 96376; 99284; A9270; J1171; J1885; J2360; J3010; J7120; Q9967

== ENCOUNTER 2024-07-29 08:11 | Emergency (ER) | payer MEDICAID ==
[2024-07-29 08:28] VITALS: BP 141/94; PULSE 66
== END 2024-07-29 08:37 | disposition left against medical advice (07) ==
LOC: DL.ED 08:11
DX: M54.50 Low back pain, unspecified (principal); I10 Essential (primary) hypertension; E11.9 Type 2 diabetes mellitus without complications; E66.9 Obesity, unspecified; Z90.49 Acquired absence of other specified parts of digestive tract; Z88.0 Allergy status to penicillin; Z88.6 Allergy status to analgesic agent; Z88.8 Allergy status to other drugs, medicaments and biological substances; Z91.030 Bee allergy status; Z79.84 Long term (current) use of oral hypoglycemic drugs; Z79.899 Other long term (current) drug therapy; Z68.41 Body mass index [BMI] 40.0-44.9, adult
CPT/HCPCS: 99283

== ENCOUNTER 2024-07-31 10:42 | Emergency (ER) | payer MEDICAID ==
[2024-07-31] MEDS: Lidocaine 5% 700 MG Patch TOP ONE (11:30)
[2024-07-31] MEDS: diphenhydrAMINE 50 MG/ML SDV IM ONE (11:56)
[2024-07-31] MEDS: Dexamethasone 4 MG/ML SDV IM ONE (13:00)
[2024-07-31 13:54] VITALS: BP 130/80; PULSE 67
== END 2024-07-31 13:50 | disposition home or self-care (01) ==
LOC: DL.ED 10:42
DX: M51.369 Other intervertebral disc degeneration, lumbar region without mention of lumbar back pain or lower extremity pain (principal); I10 Essential (primary) hypertension; E11.9 Type 2 diabetes mellitus without complications; E66.9 Obesity, unspecified; F17.210 Nicotine dependence, cigarettes, uncomplicated; Z90.49 Acquired absence of other specified parts of digestive tract; Z88.0 Allergy status to penicillin; Z88.5 Allergy status to narcotic agent; Z88.8 Allergy status to other drugs, medicaments and biological substances; Z91.030 Bee allergy status; Z79.84 Long term (current) use of oral hypoglycemic drugs; Z79.899 Other long term (current) drug therapy; Z68.41 Body mass index [BMI] 40.0-44.9, adult
CPT/HCPCS: 72148; 96372; 99283; 99284; A9270-GY; J1100; J1200

== ENCOUNTER 2024-08-19 20:59 | Emergency (ER) | payer MEDICAID ==
[2024-08-19 21:55] VITALS: BP 121/57; PULSE 84
== END 2024-08-19 22:05 | disposition left against medical advice (07) ==
LOC: DL.ED 20:59
DX: M54.50 Low back pain, unspecified (principal); I10 Essential (primary) hypertension; E11.9 Type 2 diabetes mellitus without complications; E66.9 Obesity, unspecified; Z90.49 Acquired absence of other specified parts of digestive tract; Z88.0 Allergy status to penicillin; Z88.5 Allergy status to narcotic agent; Z88.8 Allergy status to other drugs, medicaments and biological substances; Z91.030 Bee allergy status; Z79.84 Long term (current) use of oral hypoglycemic drugs; Z79.899 Other long term (current) drug therapy; Z68.41 Body mass index [BMI] 40.0-44.9, adult
CPT/HCPCS: 99283

== ENCOUNTER 2024-08-20 07:59 | Emergency (ER) | payer MEDICAID ==
[2024-08-20 08:20] VITALS: BP 156/103; PULSE 99
[2024-08-20] MEDS: Orphenadrine 60 MG/2 ML Inj IM ONE (08:36)
[2024-08-20] MEDS: Lidocaine 5% 700 MG Patch TOP ONE (08:36)
[2024-08-20] MEDS: Acetaminophen 500 MG Tab PO ONE (08:37)
[2024-08-20] MEDS: Naproxen 250 MG Tab PO ONE (08:37)
== END 2024-08-20 09:02 | disposition home or self-care (01) ==
LOC: DL.ED 07:59
DX: M54.42 Lumbago with sciatica, left side (principal); I10 Essential (primary) hypertension; E11.9 Type 2 diabetes mellitus without complications; E66.9 Obesity, unspecified; Z90.49 Acquired absence of other specified parts of digestive tract; Z88.0 Allergy status to penicillin; Z88.5 Allergy status to narcotic agent; Z88.8 Allergy status to other drugs, medicaments and biological substances; Z91.030 Bee allergy status; Z79.84 Long term (current) use of oral hypoglycemic drugs; Z79.899 Other long term (current) drug therapy
CPT/HCPCS: 96372; 99283; A9270-GY; J2360

== ENCOUNTER 2024-12-24 14:17 | Emergency (ER) | payer MEDICAID ==
[2024-12-24] MEDS: Acetaminophen/HYDROcodone 325-10 MG Tab PO ONE (14:45)
[2024-12-24 15:14] VITALS: BP 148/111; PULSE 99
== END 2024-12-24 15:35 ==
LOC: DL.ED 14:17
DX: S69.81XA Other specified injuries of right wrist, hand and finger(s), initial encounter (principal); I10 Essential (primary) hypertension; E11.9 Type 2 diabetes mellitus without complications; Z90.49 Acquired absence of other specified parts of digestive tract; E78.00 Pure hypercholesterolemia, unspecified; Z88.0 Allergy status to penicillin; Z91.030 Bee allergy status; Z88.5 Allergy status to narcotic agent; Z88.8 Allergy status to other drugs, medicaments and biological substances; Z79.84 Long term (current) use of oral hypoglycemic drugs; Z79.899 Other long term (current) drug therapy; T70.4XXA Effects of high-pressure fluids, initial encounter; W94.0XXA Exposure to prolonged high air pressure, initial encounter; Y93.89 Activity, other specified; Y99.0 Civilian activity done for income or pay
CPT/HCPCS: 99284; A9270

== ENCOUNTER 2025-02-22 19:59 | Emergency (ER) | payer MEDICAID ==
[2025-02-22] MEDS: fentaNYL 100 MCG/2 ML SDV IVPUSH ONE ×2 (20:10→20:30)
[2025-02-22] MEDS ORDERED: Sodium Chloride 0.9% 10 ML Syringe FLUSH PRN (20:11)
[2025-02-22 20:20] LABS: BASOPHILS PERCENT AUTO 0.2 % (0.0-1.0); EOSINOPHILS PERCENT AUTO 1.9 % (1.0-3.0); HEMATOCRIT 46.3 % (40.0-54.0); LYMPHOCYTES PERCENT AUTO 33.5 % (20.5-50.1); MEAN CORPUSCULAR HEMOGLOBIN 30.2 pg (27.0-34.0); MEAN CORPUSCULAR HGB CONC 34.6 g/dL (33.0-35.0); MEAN CORPUSCULAR VOLUME 87.5 fL (80-100); MONOCYTES PERCENT AUTO 7.8 % (2-8); NEUTROPHILS PERCENT AUTO 56.6 % (42.2-75.2); PLATELET COUNT,PLT 337 10^3/uL (150-450); RED BLOOD CELL COUNT 5.29 10^6/uL (4.6-6.2); WHITE BLOOD CELL COUNT,WBC 12.5 10^3/uL (5.0-10.0)
[2025-02-22 20:38] LABS: INR 0.9 (0.9-1.2); PROTHROMBIN TIME 9.5 SEC (9.0-12.0)
[2025-02-22 20:41] LABS: A/G RATIO 1.1; ALANINE AMINOTRANSFERASE,ALT 38 U/L (16-63); ALBUMIN 4.2 g/dL (3.4-5.0); ALKALINE PHOSPHATASE 94 U/L (46-116); ANION GAP 13.1 mEq/L (7-13); ASPARTATE AMNIOTRANSFERASE,AST 20 U/L (15-37); BILIRUBIN TOTAL 0.7 mg/dL (0.2-1.0); BLOOD UREA NITROGEN,BUN 14 mg/dL (7-18); BUN/CREATININE RATIO 9.5 (No establ ref range); CALCIUM 8.8 mg/dL (8.5-10.1); CARBON DIOXIDE,CO2 27 mmol/L (21-32); CHLORIDE,CL 108 mmol/L (98-107); CREATININE 1.48 mg/dL (0.70-1.30); GLUCOSE RANDOM 82 mg/dL (70-99); POTASSIUM,K 4.1 mmol/L (3.5-5.1); PROTEIN TOTAL,TP 7.9 g/dL (6.4-8.2); SODIUM,NA 144 mmol/L (136-145)
[2025-02-22 20:42] LABS: ESTIMATED GFR 64 mL/min (>=60); ETHANOL BLOOD MEDICAL < 3 mg/dL (0)
[2025-02-22] MEDS: fentaNYL 100 MCG/2 ML SDV ONE ×2 (20:49)
[2025-02-22] MEDS: Iopamidol 755 Mg/ML 100 ML Bottle IVPUSH ONE (21:20)
[2025-02-22] MEDS: Ketorolac 30 MG/ML SDV IM ONE (21:30)
[2025-02-22] MEDS: Acetaminophen 500 MG Tab PO ONE (21:40)
[2025-02-22 22:25] LABS: APPEARANCE,URINE CLOUDY (CLEAR); BILIRUBIN,URINE NEGATIVE (NEGATIVE); COLOR,URINE YELLOW (YELLOW); GLUCOSE,URINE NEGATIVE (NEGATIVE); KETONES,URINE NEGATIVE (NEGATIVE); LEUKOCYTE ESTERASE,URINE NEGATIVE (NEGATIVE); NITRITE,URINE NEGATIVE (NEGATIVE); OCCULT BLOOD,URINE LARGE (NEGATIVE); PH,URINE 6.5 (5.0-9.0); PROTEIN,URINE TRACE (NEGATIVE); UROBILINOGEN,URINE 0.2 mg/dL (0.2-1.0)
[2025-02-22 22:32] LABS: AMPHETAMINES,URINE NEGATIVE (NEGATIVE); BARBITURATES,URINE NEGATIVE (NEGATIVE); BENZODIAZEPINE,URINE NEGATIVE (NEGATIVE); MDMA (ECSTASY), URINE NEGATIVE (NEGATIVE); METHADONE,URINE NEGATIVE (NEGATIVE); METHAMPHETAMINES,URINE NEGATIVE (NEGATIVE); OPIATES,URINE NEGATIVE (NEGATIVE); OXYCODONE,URINE POSITIVE (NEGATIVE); PHENCYCLIDINE,URINE NEGATIVE (NEGATIVE); TCA,URINE NEGATIVE (NEGATIVE)
[2025-02-22 22:41] LABS: BACTERIA,URINE RARE /HPF (0-FEW/HPF); EPITHELIAL CELLS,URINE MODERATE /HPF (NOT SEEN); RBC,URINE >100 /HPF (0-5); WBC,URINE 0-5 /HPF (0-5/HPF)
== END 2025-02-22 22:34 | disposition left against medical advice (07) ==
LOC: DL.ED 19:59
DX: R07.89 Other chest pain (principal); M25.551 Pain in right hip; V39 Occupant of three-wheeled motor vehicle injured in other and unspecified transport accidents
CPT/HCPCS: 36415; 70450; 71045; 71260; 72125; 72128; 72131; 73030; 74177; 80053; 80305; 80307; 81001; 83735; 85025; 85610; 93005; 93010; 96374; 99284; J3010; Q9967

== ENCOUNTER 2025-04-27 20:03 | Emergency (ER) | payer BC, MEDICAID, OTHER, SELFPAY ==
[2025-04-27] MEDS: Ketorolac 30 MG/ML SDV IM ONE (20:44)
[2025-04-27 20:48] VITALS: BP 153/99; PULSE 72
== END 2025-04-27 21:07 | disposition home or self-care (01) ==
LOC: DL.ED 20:03 → EEVIPCON 20:03 → DL.ED 21:07
DX: S00.06XA Insect bite (nonvenomous) of scalp, initial encounter (principal); W57.XXXA Bitten or stung by nonvenomous insect and other nonvenomous arthropods, initial encounter; L03.115 Cellulitis of right lower limb; E78.00 Pure hypercholesterolemia, unspecified; I10 Essential (primary) hypertension; E11.9 Type 2 diabetes mellitus without complications; K21.9 Gastro-esophageal reflux disease without esophagitis; Z90.49 Acquired absence of other specified parts of digestive tract; F17.210 Nicotine dependence, cigarettes, uncomplicated; Z91.030 Bee allergy status; Z88.0 Allergy status to penicillin; Z88.8 Allergy status to other drugs, medicaments and biological substances; Z88.5 Allergy status to narcotic agent; Z79.84 Long term (current) use of oral hypoglycemic drugs; Z79.899 Other long term (current) drug therapy
CPT/HCPCS: 96372; 99283; A9270; J1885